=== PATIENT | male | born 1945 | race Caucasian/White ===

== ENCOUNTER → 2018-05-25 | Outpatient (CLI) | payer OTHER ==
[~2018-05-25] MED LIST: ASPI81TA28 PO; GLC/500 PO; LEVO50TA6 PO; MULT-506 PO; OMEP-334 PO; PRED20TA PO; PROB1TAB16 PO
[2018-05-25 14:33] LABS: BASO % 0.2 %; BASO ABS # 0.02 K/uL (0-0.2); EOS % 7.7 %; EOS ABS # 0.75 K/uL (0-0.5); HEMATOCRIT 36.1 % (42-52); HEMOGLOBIN 11.4 g/dL (14.0-18.0); IG# 0.28 K/uL (0.00-0.02); LYMPH % 6.4 %; LYMPH ABS # 0.63 K/uL (1.2-3.4); MEAN CORPUSCULAR HEMOGLOBIN 30.6 pg (25-34); MEAN CORPUSCULAR HGB CONC 31.6 g/dl (32-36); MEAN PLATELET VOLUME 9.6 fL (7.4-10.4); MONO % 3.7 %; MONO ABS # 0.36 K/uL (0.11-0.59); NEUT % 79.1 %; NEUT ABS # 7.75 K/uL (1.4-6.5); PLATELET COUNT 337 K/uL (130-400); RED CELL DISTRIBUTION WIDTH CV 14.4 % (11.5-14.5); RED CELL DISTRIBUTION WIDTH SD 50.7 fL (36.4-46.3); WHITE BLOOD COUNT 9.79 K/uL (4.8-10.8)
[2018-05-25 14:47] LABS: PTT PATIENT 24.1 SECONDS (21.0-31.0)
[2018-05-25 14:51] LABS: BLOOD UREA NITROGEN 28 mg/dl (7-18); CALCIUM 8.8 mg/dl (8.5-10.1); CARBON DIOXIDE 29 mmol/L (21-32); CREATININE 1.09 mg/dl (0.60-1.40); GLUCOSE 182 mg/dl (70-99); POTASSIUM 4.4 mmol/L (3.5-5.1); SODIUM 135 mmol/L (136-145)
[2018-05-26 05:58] LABS: HEMOGLOBIN A1C 7.4 % (4.5-5.6)
== END | disposition home or self-care (01) ==
LOC: C.LAB 12:20
PROVIDERS: ATTEND Orthopaedic Surgery Orthopaedic Surgery of the Spine
DX: Z01.818 Encounter for other preprocedural examination (principal)

== ENCOUNTER 2018-06-10 05:38 | Inpatient (IN) | payer OTHER ==
[2018-05-19 13:09] VITALS: BMI 23.0
[2018-05-25 13:00] VITALS: BMI 24.0
--- NOTE | 2018-05-25 13:16 | PAT Medication Instructions ---
Service Date May 25, 2018. Current Home Medication List Aspirin (Aspirin Ec), 81 MG PO QDL Levothyroxine Sodium (Levothyroxine Sodium), 1 TAB PO QAM Metformin Hcl (Glucophage), 1,000 MG PO QAM Multivitamin (Multivitamin), 1 TAB PO QDD Omeprazole (Omeprazole Dr), 1 TAB PO QDL Prednisone (Prednisone), 20 MG PO QAM Probiotic Product (Probiotic), 1 TAB PO QDL Medication Instructions For Your Scheduled Surgery - Hold the following medications the morning of surgery: Metformin Hcl (Glucophage), 1,000 MG PO QAM - Take the following medications the morning of surgery with a sip of water: Levothyroxine Sodium (Levothyroxine Sodium), 1 TAB PO QAM Prednisone (Prednisone), 20 MG PO QAM - Take the following medications as scheduled the afternoon/night before surgery : Aspirin (Aspirin Ec), 81 MG PO QDL Multivitamin (Multivitamin), 1 TAB PO QDD Omeprazole (Omeprazole Dr), 1 TAB PO QDL Probiotic Product (Probiotic), 1 TAB PO QDL If you have any questions please call us at [phone] or [phone] or [phone]
[2018-06-10] VITALS (8 sets, daily range): BP systolic 92–151; BP diastolic 53–87; PULSE 58–102; TEMP 36.2–37.5; O2SAT 91–98; Ht 180.3 cm; Wt 78.0 kg
[~2018-06-10] VITALS: Ht 180.3 cm; Wt 78.0 kg
[2018-06-10] MEDS ORDERED: GABAPENTIN 300 MG CAP PO SCH (06:00)
[2018-06-10] MEDS ORDERED: LACTATED RINGER'S 500 ML IV SCH (06:00)
[2018-06-10] MEDS ORDERED: LACTATED RINGER'S 1000ML IV SCH (06:00)
[2018-06-10] MEDS ORDERED: ACETAMINOPHEN 500 MG TAB PO SCH (06:00)
[2018-06-10] MEDS ORDERED: CeleBREX 200 MG CAP PO SCH (06:00)
[2018-06-10] MEDS ORDERED: CLINDAMYCIN 600 MG/54 ML D5W 54 ML IV SCH (06:00)
[2018-06-10] MEDS ORDERED: NEOSTIGMINE METHYLSULFATE 1 MG/ML 10ML VIAL ONE (07:03)
[2018-06-10] MEDS ORDERED: ONDANSETRON INJ 2 MG/ML 2 ML VIAL ONE (07:03)
[2018-06-10] MEDS ORDERED: LIDOCAINE HCL 2% 2 ML VIAL (20MG/ML) ONE (07:03)
[2018-06-10] MEDS ORDERED: DEXAMETHASONE SOD INJ 4 MG/ML VIAL ONE ×2 (07:03→08:46)
[2018-06-10] MEDS ORDERED: GLYCOPYRROLATE INJ 0.2 MG/ML VIAL ONE ×2 (07:03→10:17)
[2018-06-10] MEDS ORDERED: PROPOFOL IV EMULSION 10 MG/ML 20 ML VIAL ONE (07:03)
[2018-06-10] MEDS ORDERED: FENTANYL CITRATE INJ 50 MCG/1 ML 2 ML VIAL ONE ×3 (07:03→09:47)
[2018-06-10] MEDS ORDERED: MIDAZOLAM HCL 1 MG/ML 2ML VIAL ONE (07:03)
[2018-06-10] MEDS ORDERED: BUPIVACAINE LIPOSOME 1/3% 266 MG/20 ML VIAL ONE (07:05)
[2018-06-10] MEDS ORDERED: SODIUM CHLORIDE 0.9% PF 50 ML VIAL ONE ×2 (07:05→08:02)
[2018-06-10] MEDS ORDERED: BUPIVACAINE 0.5 % 5 MG/1 ML PF 10ML VIAL ONE (07:06)
[2018-06-10] MEDS ORDERED: BACITRACIN 50000 UNIT VIAL ONE (07:06)
[2018-06-10] MEDS ORDERED: BUPIVACAINE/EPINEPHRINE 0.5% MPF 1:200,000 30 ML VIAL ONE (07:06)
--- NOTE | 2018-06-10 07:21 | History & Physical Bridge Note ---
H&P Re-Evaluation Bridge Note: I have examined the patient, reviewed the History & Physical and in the interval since the performance of the History & Physical I have noted the following changes of clinical significance: No changes noted
--- NOTE | 2018-06-10 07:22 | History and Physical ---
History & Physical Date Jun 10, 2018. Chief Complaint Back and leg pain History of Present Illness The patient is a 72 year old male with complaints of back and leg pain Additional History Hepatic Disease: No Endocrine Disorder: No Kidney Disease: No Hypertension: No Heart Disease: No Bleeding Tendencies: No Infectious Diseases: No Other: Diabetes Allergies Coded Allergies: Ciprofloxacin (Verified Allergy, Unknown, DIARRHEA, 06/10/18) Uncoded Allergies: CEPHALOSPORIN (Adverse Reaction, Unknown, UPSET STOMACH, 05/19/18) Home Medications Scheduled Aspirin (Aspirin Ec), 81 MG PO QDL Levothyroxine Sodium (Levothyroxine Sodium), 1 TAB PO QAM Metformin Hcl (Glucophage), 1,000 MG PO QAM Multivitamin (Multivitamin), 1 TAB PO QDD Omeprazole (Omeprazole Dr), 1 TAB PO QDL Prednisone (Prednisone), 20 MG PO QAM Probiotic Product (Probiotic), 1 TAB PO QDL Physical Examination Skin: warm/dry, no rash Eyes: normal inspection, EOMI, sclerae normal ENT: normal ENT inspection, pharynx normal Head: normocephalic, atraumatic Neck: supple, no adenopathy, trachea midline Respiratory/Chest: lungs clear, normal breath sounds, no respiratory distress Cardiovascular: regular rate, rhythm, no edema, no murmur Abdomen / GI: normal bowel sounds, non tender Back: normal inspection Extremities: normal inspection, normal range of motion Neurologic/Psych: no motor/sensory deficits, alert, normal reflexes, oriented x 3 Diagnosis Lumbar spinal stenosis with neurogenic claudication Plan of Treatment L2-L5 decompression L2-S1 fusion possible iliac bolts
[2018-06-10] MEDS ORDERED: HYDROmorphone INJ 2 MG/ML SYR/VIAL ONE ×2 (08:07→10:17)
[2018-06-10] MEDS ORDERED: PHENYLEPHRINE 100MCG/ML 5ML SYR ONE ×2 (08:46)
[2018-06-10] MEDS ORDERED: EpHEDrine SULFATE 50MG/5ML SYR ONE (08:46)
[2018-06-10] MEDS ORDERED: HYDROCORTISONE SOD SUCCINATE 100 MG/2 ML VIAL ONE (08:46)
[2018-06-10] MEDS ORDERED: ROCURONIUM BROMIDE 10 MG/ML 5 ML VIAL ONE ×2 (08:46→10:17)
[2018-06-10] MEDS ORDERED: LABETALOL HCL IV 5 MG/ML 20ML IV PRN (09:15)
[2018-06-10] MEDS ORDERED: ATROPINE SULFATE 0.1 MG/ML 5ML SYR IV PRN (09:15)
[2018-06-10] MEDS ORDERED: ONDANSETRON INJ 2 MG/ML 2 ML VIAL IV PRN ×2 (09:15→10:15)
[2018-06-10] MEDS ORDERED: HYDROmorphone INJ 2 MG/ML SYR/VIAL IV PRN (09:15)
[2018-06-10] MEDS ORDERED: VOLUVEN IN NSS ONE (10:04)
[2018-06-10] MEDS ORDERED: FLOSEAL HEMOSTATIC MATRIX 10ML TOP ONE (10:04)
--- NOTE | 2018-06-10 10:11 | DIAGNOSTIC IMAGING REPORT ---
LUMBAR SPINE 2 OR 3 VIEW HISTORY: 72 years-old Male L2-S1 DECOMPRESSION/FUSION POSSIBLE ILIAC BOLTS COMPARISON: None available TECHNIQUE: 2 spot fluoroscopic images of the lumbar spine were obtained utilizing 27.0 seconds fluoroscopy time FINDINGS: Postoperative changes with laminectomy and posterior interbody maribell and screw fusion extends from what appears to be the L2-L5 levels. The hardware appears to be intact and alignment appears satisfactory. Multilevel intervertebral disc space narrowing with endplate spurring. IMPRESSION: Fluoroscopic assistance as above. Please see operative report for further details. The above report was generated using voice recognition software. It may contain grammatical, syntax or spelling errors. Electronically signed by: Chidi Palma M.D. 06/10/2018 10:10 AM Dictated Date/Time: 06/10/2018 10:08 AM
--- NOTE | 2018-06-10 10:11 | [facility] Operative Report ---
Operative Report Operative Date Jun 10, 2018. Pre-Operative Diagnosis Lumbar spinal stenosis with neurogenic claudication Post-Operative Diagnosis Lumbar spinal stenosis with neurogenic claudication Procedure(s) Performed 1. Lumbar decompression medial facetectomies foraminotomies L2-3 L3-4 L4-5. #2 posterior spinal fusion L2-3 L3-4 L4-5 per #3 placed posterior segmental instrumentation L2-L5. #4 placement of local autograft in the posterior gutters. #5 placement of infuse collagen sponge, mass graft and ostial amp in the posterior lateral gutters. Surgeon Dr. Irene Art Consultant Surgeon(s) Gunnar Bentley PA-C Estimated Blood Loss 475 cc Findings Severe spinal stenosis Specimens none per surgeon Anesthesia Type General Description of Procedure Patient was met with preoperatively case discussed all questions addressed. After informed consent obtained patient was taken to the operative suite underwent intubation placed prone position on top of the Amaury frame. All bony prominences well-padded eyes inspected to ensure no external pressure placed upon the. This point the lumbar spine was prepped and draped in the normal sterile fashion. Sharp dissection with the assistance of Bovie cautery was performed down to and exposing the lamina and transverse processes of L2-L3- L4 and L5 bilaterally. From a caudal to cephalad fashion complete laminectomy of L4 L3 L2 is performed addressing severe lateral recess and foraminal disease. I did elect to not extend the fusion to the pelvis in light of the very soft bone. This included not performing any interbody fusion secondary to the bone quality. After decompression pedicle screws were placed in L2 L3-L4- L5 bilaterally with the assistance of fluoroscopy and appropriate size maribell locked in position. Approximately 120 cc of Exparel injected into the musculature. 15 round LETY drain inserted. Incision was then closed with 1 Vicryl in the fascia 2-0 Vicryl subcutaneously 4-0 Monocryl for fashion closure Steri-Strips sterile dressings placed. Patient weakened taken to PACU in a stable condition. Please note Antonino Bentley present throughout the entire procedure involved in patient positioning complex portions of the surgery and fashion closure. I attest to the content of the Intraoperative Record and any orders documented therein. Any exceptions are noted below.
[2018-06-10] MEDS ORDERED: ACETAMINOPHEN IV 100 ML IV PRN (10:15)
[2018-06-10] MEDS ORDERED: FAMOTIDINE 20 MG TAB PO PRN (10:15)
[2018-06-10] MEDS ORDERED: hydrOXYzine HCL 25 MG TAB PO PRN (10:15)
[2018-06-10] MEDS ORDERED: ACETAMINOPHEN 500 MG TAB PO PRN (10:15)
[2018-06-10] MEDS ORDERED: ALUMINUM/MAGNESIUM SUSP 30 ML UDC PO PRN (10:15)
[2018-06-10] MEDS ORDERED: SOD PHOSPHATE/SOD BIPHOSPHATE ENEMA 132 ML BTL PR PRN (10:15)
[2018-06-10] MEDS ORDERED: METOCLOPRAMIDE HCL INJ 5 MG/ML 2 ML VIAL IV PRN (10:15)
[2018-06-10] MEDS ORDERED: NALOXONE HCL 0.4 MG/1 ML VIAL/CARP IV PRN (10:15)
[2018-06-10] MEDS ORDERED: MAGNESIUM HYDROXIDE SUSP 30 ML UDC PO PRN (10:15)
[2018-06-10] MEDS ORDERED: PROMETHAZINE HCL INJ 12.5 MG in SODIUM CHLORIDE 0.9% 50ML 50 ML IV PRN (10:15)
[2018-06-10] MEDS ORDERED: LORAZEPAM 0.5 MG TAB PO PRN (10:15)
[2018-06-10] MEDS ORDERED: BISACODYL 10 MG SUPP PR PRN (10:15)
[2018-06-10] MEDS ORDERED: DO NOT ADMINISTER PNEUMOCOCCAL VACCINE PRN (10:15)
[2018-06-10] MEDS ORDERED: DO NOT ADMINISTER FLU VACCINE PRN (10:15)
[2018-06-10] MEDS ORDERED: LORAZEPAM INJ 0.5 MG in SYRINGE 0 ML IV PRN (10:15)
[2018-06-10] MEDS ORDERED: KETOROLAC TROMETHAMINE 30 MG/ML VIAL ONE (10:21)
[2018-06-10] MEDS ORDERED: ESMOLOL HCL 10 MG/ML 10 ML VIAL ONE (10:46)
[2018-06-10] MEDS ORDERED: HYDROmorphone INJ 0.5 MG/0.5 ML SYR IV PRN (12:00)
[2018-06-10] MEDS ORDERED: DEXTROSE 50% 50 ML SYR IV PRN ×2 (12:45→13:00)
[2018-06-10] MEDS ORDERED: GLUCOSE 40% GEL 15 GM TUBE PO PRN ×2 (12:45→13:00)
[2018-06-10] MEDS ORDERED: GLUCOSE 10 TABS/TUBE PO PRN ×2 (12:45→13:00)
[2018-06-10] MEDS ORDERED: CARBOHYDRATES FOR HYPOGLYCEMIA PO PRN ×2 (12:45→13:00)
[2018-06-10] MEDS ORDERED: GLUCAGON FOR INJ 1 MG VIAL SQ PRN (12:45)
[2018-06-10] MEDS: PANTOprazole SOD 40 MG TAB PO SCH (12:47)
[2018-06-10] MEDS: ASPIRIN 81 MG ECTAB PO SCH (12:47)
--- NOTE | 2018-06-10 12:56 | Medical Consult ---
Consultation Date of Consultation: Jun 10, 2018. Attending Physician: Vickey Irene D.O. Reason for Consultation: Postop medical management History of Present Illness This is a 72-year-old male, under the primary care of Dr. 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 Aguilar presented to [facility] for elective surgery by Dr. Irene secondary to lumbar spinal stenosis with neurogenic claudication. Patient underwent L2-5 decompression, L2-S1 fusion by Dr. Irene with EBL of 475 cc. He tolerated procedure well. Over the past several years patient had significant low back pain with associated numbness and tingling in the bilateral lower extremities inhibiting patient's functionality and ambulation. Currently he states, "I have no pain for the first time in a long time." Denies numbness/tingling of lower extremities and chloe area. He is lying in bed with multiple family members at bedside. Denies fever, chills, sweats, dizziness, lightheaded, chest pain, sob, n/v/d. Last BM 1 day ago, normal for him. Vitale catheter in place. Appetite is returning, requesting lunch. Of note patient has recent hospitalization 02/26-03/04/2018 secondary to pancreatitis which was felt to be secondary to hyperglycemia, newly diagnoses steroid induced diabetes mellitus, currently denies abdominal pain. Preop testing on 05/26/18 revealed hemoglobin 11.4, platelet 233, creatinine 1.19, A1c 7.4. We have been asked to see patient for post operative medical management. Past Medical/Surgical History Medical Problems: (1) Erythema nodosum Status: Chronic (2) GERD (gastroesophageal reflux disease) Status: Chronic (3) Hypertension Status: Chronic (4) Hypothyroidism Status: Chronic (5) Mediastinal lymphadenopathy Permanent Comment: Follow by Dr Aguilar, pulomology, s/p EBUS and bx on 12/09/17, to f/u pulmonology and repeat CT scan Status: Chronic (6) Steroid-induced diabetes mellitus Status: Chronic Surgical Problems: (1) H/O left inguinal hernia repair Status: Chronic (2) History of bronchoscopy Status: Chronic Family History FH: Father of [place] at age 84; Mother age 97 natural causes; Sister age 90; Brother Alive with DM and CAD Social History Smoking Status: Former Smoker (1 pack year hx, quit in 1959) Smokeless Tobacco Use: No Alcohol Use: occasionally (rarely, on special occasions like holiday) Drug Use: none Marital Status: Housing Status: lives with significant other 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) Allergies Coded Allergies: Cephalosporins (Verified Adverse Reaction, Unknown, UPSET STOMACH, 06/10/18) Ciprofloxacin (Verified Adverse Reaction, Unknown, DIARRHEA, 06/10/18) Home Medications Active Reported Multivitamin (Multivitamins) Tab 1 Tab PO QDD Aspirin Ec (Aspirin) 81 Mg Tab 81 Mg PO QDL Probiotic (Probiotic Product) 1 Tab Tab 1 Tab PO QDL Omeprazole Dr (Omeprazole) 40 Mg Cap 1 Tab PO QDL Levothyroxine Sodium 50 Mcg Tab 1 Tab PO QAM 90 Days Prednisone 20 Mg Tab 20 Mg PO QAM Glucophage (Metformin Hcl) 500 Mg Tab 1,000 Mg PO QAM Current Inpatient Medications Current Inpatient Medications Medications (Trade) Dose Ordered Sig/Julieta Route Start Time Stop Time Status Last Admin Dose Admin Lactated Ringer's 1,000 ml @ 15 mls/hr Q24H IV 06/10/18 06:00 06/11/18 05:59 06/10/18 06:17 15 MLS/HR Clindamycin Phosphate 54 ml @ 100 mls/hr PREOP IV 06/10/18 06:00 06/10/18 18:00 06/10/18 07:38 100 MLS/HR Acetaminophen (Tylenol Tab) 1,000 mg PREOP PO 06/10/18 06:00 06/10/18 18:00 06/10/18 06:21 1,000 MG Celecoxib (CeleBREX CAP) 200 mg PREOP PO 06/10/18 06:00 06/10/18 18:00 06/10/18 06:21 200 MG Gabapentin (Neurontin Cap) 300 mg PREOP PO 06/10/18 06:00 06/10/18 18:00 06/10/18 06:21 300 MG Ondansetron HCl (Zofran Inj) 4 mg ONE PRN IV 06/10/18 09:15 06/10/18 14:15 Atropine Sulfate (Atropine Sulfate 0.1mg/ml Inj) 0.5 mg Q1M PRN IV 06/10/18 09:15 06/10/18 14:15 Hydromorphone HCl (Dilaudid Inj) 0.25 mg Q5M PRN IV 06/10/18 09:15 06/10/18 14:15 Labetalol HCl (Normodyne IV) 5 mg Q5M PRN IV 06/10/18 09:15 06/10/18 14:15 Clindamycin Phosphate 600 mg/ Dextrose 54 ml @ 100 mls/hr Q8H IV 06/10/18 16:00 06/11/18 00:33 Promethazine HCl 12.5 mg/Sodium Chloride 50.5 ml @ 202 mls/hr Q6H PRN IV 06/10/18 10:15 07/10/18 10:14 Ondansetron HCl (Zofran Inj) 4 mg Q6H PRN IV 06/10/18 10:15 07/10/18 10:14 Metoclopramide HCl (Reglan Inj) 10 mg Q6H PRN IV 06/10/18 10:15 07/10/18 10:14 Lorazepam (Ativan Tab) 0.5 mg Q8H PRN PO 06/10/18 10:15 07/10/18 10:14 Lorazepam 0.5 mg/ Syringe 0.25 ml @ 1 mls/min Q8H PRN IV 06/10/18 10:15 07/10/18 10:14 Pneumococcal Polysaccharide Vaccine 1 ea PRN PRN N/A 06/10/18 10:15 07/10/18 10:14 Influenza Virus Vacc Triv Types A&B 1 ea PRN PRN N/A 06/10/18 10:15 07/10/18 10:14 Polyethylene (Miralax Powder Packet) 17 gm Q6 PO 06/12/18 06:00 07/12/18 05:59 Bisacodyl (Dulcolax Supp) 10 mg DAILY PRN WV 06/10/18 10:15 07/10/18 10:14 Magnesium Hydroxide (Milk Of Magnesia Susp) 30 ml DAILY PRN PO 06/10/18 10:15 07/10/18 10:14 Hydromorphone HCl (Dilaudid Inj) 0.5-1mg prn moder... Q3H PRN IV 06/10/18 12:00 06/24/18 11:59 Oxycodone HCl (Roxicodone Immediate Rel Tab) 5-10mg prn moderate to sev... Q4H PRN PO 06/10/18 12:00 06/24/18 11:59 Sodium Chloride 1,000 ml @ 150 mls/hr Q6H40M IV 06/10/18 12:00 07/10/18 11:59 Acetaminophen (Tylenol Tab) 1,000 mg Q8H PRN PO 06/10/18 10:15 07/10/18 10:14 Acetaminophen 100 ml @ 400 mls/hr Q8H PRN IV 06/10/18 10:15 07/10/18 10:14 Naloxone HCl (Narcan Inj) 0.1 mg Q5M PRN IV 06/10/18 10:15 07/10/18 10:14 Senna/Docusate Sodium (Senokot S Tab) 2 tab HS PO 06/10/18 21:00 07/10/18 20:59 Sodium Biphosphate/ Sodium Phosphate (Fleet Enema) 132 ml ONE PRN WV 06/10/18 10:15 07/10/18 10:14 Hydroxyzine HCl (Vistaril Tab) 25 mg Q8H PRN PO 06/10/18 10:15 07/10/18 10:14 Al Hydroxide/Mg Hydroxide (Maalox Susp) 30 ml Q6H PRN PO 06/10/18 10:15 07/10/18 10:14 Famotidine (Pepcid Tab) 20 mg Q12 PRN PO 06/10/18 10:15 07/10/18 10:14 Diphenhydramine HCl (Benadryl Cap) 25 mg Q6H PRN PO 06/10/18 10:15 07/10/18 10:14 Aspirin (Ecotrin Tab) 81 mg QDL PO 06/10/18 12:30 07/10/18 12:29 Levothyroxine Sodium (Synthroid Tab) 50 mcg DAILYBB PO 06/11/18 06:00 07/11/18 05:59 Multivitamins (Multivitamin Tab) 1 tab QDD PO 06/10/18 17:45 07/10/18 17:59 Prednisone (PredniSONE TAB) 20 mg QAM PO 06/11/18 09:00 07/11/18 08:59 Pantoprazole Sodium (Protonix Tab) 40 mg QDL PO 06/10/18 12:30 07/10/18 12:29 Review of Systems As noted per HPI, 10 systems reviewed and negative unless noted above. Physical Exam Date Time Temp Pulse Resp B/P (MAP) Pulse Ox O2 Delivery O2 Flow Rate FiO2 06/10/18 12:00 36.3 65 16 107/63 (78) 97 Nasal Cannula 2.0 06/10/18 11:51 Nasal Cannula 2.0 06/10/18 11:47 36.4 67 16 115/66 (82) 95 Nasal Cannula 2.0 06/10/18 11:46 95 Nasal Cannula 2.0 06/10/18 11:15 36.3 77 16 111/59 95 Nasal Cannula 3 06/10/18 11:05 69 16 111/59 97 Oxymask 3 06/10/18 10:55 69 16 120/65 100 Oxymask 5 06/10/18 10:45 74 14 113/62 100 Oxymask 5 06/10/18 10:38 36.2 82 17 115/70 100 Oxymask 10 06/10/18 06:04 37.5 102 20 151/87 91 Room Air General Appearance: WD/WN, no apparent distress (lying in bed, comfortable, converses easily) Head: normocephalic, atraumatic Eyes: normal inspection, PERRL, sclerae normal ENT: normal ENT inspection, hearing grossly normal, + pertinent finding ( Mucous membranes moist) Neck: supple, no adenopathy, thyroid normal, no JVD Respiratory/Chest: chest non-tender, lungs clear, normal breath sounds, no respiratory distress, no accessory muscle use, + rales (minimal rales at bases b /l ) Cardiovascular: regular rate, rhythm, no edema, no murmur, normal peripheral pulses (+1-2 pedal and PT pulses b/l.) Abdomen/GI: normal bowel sounds, non tender, soft, no organomegaly Genitourinary - Male: + pertinent finding (+Vitale catheter draining clear yellow urine) Back: + pertinent finding (+incision dressing CDI, LETY drain with serosanginous output 100cc) Extremities/Musculoskelatal: normal inspection, no calf tenderness (+SCDS in place), normal capillary refill, no pedal edema Neurologic/Psych: alert, normal mood/affect, oriented x 3 Skin: normal color, warm/dry Laboratory Results Last 24 Hours Test 06/10/18 06:08 06/10/18 06:10 06/10/18 10:47 Bedside Glucose 153 mg/dl 250 mg/dl Assessment & Plan (1) Lumbar stenosis with neurogenic claudication Status: Acute Assessment & Plan: This is a 72-year-old male, under the primary care of Dr. 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 Aguilar presented to [facility] for elective surgery by Dr. Irene secondary to lumbar spinal stenosis with neurogenic claudication. Patient underwent L2-5 decompression, L2-S1 fusion by Dr. Irene with EBL of 475 cc. Preop testing on 05/26/18 revealed hemoglobin 11.4, platelet 233, creatinine 1.19, A1c 7.4. Post Op Day 1 L2-5 Decompression with L2-S1 fusion by Dr. Irene 06/10/18 -Pain/Wound management per ortho -VTE prophylaxis per ortho -Senna/docusate for bowel prophylaxis -Incentive spirometer q1hr while awake -CBC, BMP in a.m. (2) Steroid-induced diabetes mellitus Status: Chronic Assessment & Plan: Post op hypergylcemia Metformin on hold Initiate Lantus 13 units SQ BID Give Lantus 13units x 1 now due to hyperglycemia Will cover with Novolog sliding scale stat and AC/HS for glycemic management and monitor treat accordingly (3) Hypertension Status: Chronic Assessment & Plan: Blood pressure under control Currently not on any oral antihypertensives Monitor and treat accordingly (4) Hypothyroidism Status: Chronic Assessment & Plan: Continue levothyroxine 50 mcg (5) Erythema nodosum Status: Chronic Assessment & Plan: Continue prednisone 20 mg daily Follow-up with outpatient dermatology/rheumatology (6) GERD (gastroesophageal reflux disease) Status: Chronic Assessment & Plan: Continue pantoprazole SUPERVISING PHYSICIAN ADDENDUM Record reviewed. Patient interviewed and examined. Care coordinated with Giovanna Judd PA-C. Please refer to her documentation for patient's history. Briefly, 72 YO M with hypertension, DM, and other problems. Underwent lumbar decompression / fusion today. Doing well postoperatively except for elevated blood sugars. Received IV dexamethasone perioperatively. EXAM: General- no distress Lungs- clear to auscultation; no respiratory distress Cardiovascular- RRR; no murmur; no gallop; no JVD; no pretibial edema Abdomen- + bowel sounds, soft, nontender Extremities- no cyanosis; no calf tenderness Neuro- alert, oriented Skin- warm & dry DATA: Fingerstick blood sugar at 13:11 = 346. Other lab studies as noted. ASSESSMENT AND PLAN: S/P LUMBAR DECOMPRESSION / FUSION HYPERTENSION DM TYPE 2- hold metformin; Lantus / NovoLog per protocol. ERYTHEMA NODOSUM- continue prednisone. Please refer to MARY JANE Judd's documentation for discussion of other issues. Eros Velasquez MD Thank you for this consultation. We will follow the patient with you during their hospital stay. You can reach a member of the [facility] Medicine Team 31/05 via pager @ [phone]. You can reach me via cell @ [phone]. .
[2018-06-10] MEDS ORDERED: GLUCAGON FOR INJ 1 MG VIAL IM PRN (13:00)
[2018-06-10] MEDS ORDERED: INSULIN ASPART 100 UNITS/ML 3 ML PEN SC ONE (13:01)
[2018-06-10] MEDS ORDERED: INSULIN GLARGINE SOLOSTAR 100 UNITS/ML 3 ML PEN SC STA (13:29)
--- NOTE | 2018-06-10 13:31 | Anesthesiology Progress Note ---
Anesthesia Post Op Note Date & Time Jun 10, 2018 at 13:31 Vital Signs Pain Intensity: 0.0 Vital Signs Past 12 Hours Date Time Temp Pulse Resp B/P (MAP) Pulse Ox O2 Delivery O2 Flow Rate FiO2 06/10/18 12:30 36.6 80 16 109/67 (81) 98 Nasal Cannula 3.0 06/10/18 12:00 36.3 65 16 107/63 (78) 97 Nasal Cannula 2.0 06/10/18 11:51 Nasal Cannula 2.0 06/10/18 11:47 36.4 67 16 115/66 (82) 95 Nasal Cannula 2.0 06/10/18 11:46 95 Nasal Cannula 2.0 06/10/18 11:15 36.3 77 16 111/59 95 Nasal Cannula 3 06/10/18 11:05 69 16 111/59 97 Oxymask 3 06/10/18 10:55 69 16 120/65 100 Oxymask 5 06/10/18 10:45 74 14 113/62 100 Oxymask 5 06/10/18 10:38 36.2 82 17 115/70 100 Oxymask 10 06/10/18 06:04 37.5 102 20 151/87 91 Room Air Notes Mental Status: alert / awake / arousable, participated in evaluation Pt Amnestic to Procedure: Yes Nausea / Vomiting: adequately controlled Pain: adequately controlled Airway Patency, RR, SpO2: stable & adequate BP & HR: stable & adequate Hydration State: stable & adequate Anesthetic Complications: no major complications apparent
[2018-06-10] MEDS: SODIUM CHLORIDE 0.9% 1000ML 1,000 ML IV SCH ×2 (16:05→23:00)
[2018-06-10] MEDS: CLINDAMYCIN IV 600 MG in DEXTROSE 5% 50ML 50 ML IV SCH ×2 (16:05→23:01)
[2018-06-10] MEDS: INSULIN ASPART 100 UNITS/ML 3 ML PEN SC SCH ×2 (17:36→21:02)
[2018-06-10] MEDS: MULTIVITAMIN TAB PO SCH (17:36)
[2018-06-10] MEDS: DOCUSATE SODIUM/SENNA 50/8.6MG TAB PO SCH (20:50)
[2018-06-10] MEDS: INSULIN GLARGINE SOLOSTAR 100 UNITS/ML 3 ML PEN SC SCH (21:02)
[2018-06-11 02:35] VITALS: BP 104/58; PULSE 66; TEMP 36.5; O2SAT 91
[2018-06-11 05:51] LABS: EOS % 0.1 %; EOS ABS # 0.01 K/uL (0-0.5); HEMATOCRIT 26.3 % (42-52); HEMOGLOBIN 8.3 g/dL (14.0-18.0); IG# 0.08 K/uL (0.00-0.02); LYMPH % 9.4 %; LYMPH ABS # 0.66 K/uL (1.2-3.4); MEAN CELL VOLUME 94.6 fL (80-100); MEAN CORPUSCULAR HEMOGLOBIN 29.9 pg (25-34); MEAN CORPUSCULAR HGB CONC 31.6 g/dl (32-36); MONO % 6.2 %; MONO ABS # 0.43 K/uL (0.11-0.59); NEUT % 83.2 %; NEUT ABS # 5.81 K/uL (1.4-6.5); PLATELET COUNT 268 K/uL (130-400); RED CELL DISTRIBUTION WIDTH CV 14.3 % (11.5-14.5); RED CELL DISTRIBUTION WIDTH SD 50.1 fL (36.4-46.3); WHITE BLOOD COUNT 6.99 K/uL (4.8-10.8)
[2018-06-11] MEDS: LEVOTHYROXINE 50 MCG TAB PO SCH (05:58)
[2018-06-11 06:18] LABS: CALCIUM 7.9 mg/dl (8.5-10.1); POTASSIUM 4.5 mmol/L (3.5-5.1)
[2018-06-11] MEDS ORDERED: NURSING DECISION MEDICATION ORDER SCH (06:30)
[2018-06-11 07:34] VITALS: BP 131/69; PULSE 75; TEMP 36.7; O2SAT 90
[2018-06-11] MEDS: OXYCODONE HCL IR 5 MG TAB (IMMEDIATE RELEASE) PO PRN ×4 (08:03→20:33)
--- NOTE | 2018-06-11 08:28 | Orthopedic Progress Note ---
Orthopedic Progress Note Date of Service Jun 11, 2018. Subjective Post OP Day: 1 Reports: feeling well Additional Notes: Patient presents postop 1 status post lumbar decompression fusion from L2-L5. He is doing well this morning no nausea. His pain is well controlled. His leg symptoms have improved. He denies any other numbness, tingling, paresthesias. Objective calves soft nontender, N/V intact, dressing C/D/I, CMS intact Date Time Temp Pulse Resp B/P (MAP) Pulse Ox O2 Delivery O2 Flow Rate FiO2 06/11/18 07:34 36.7 75 14 131/69 (89) 90 Room Air 06/11/18 02:35 36.5 66 16 104/58 (73) 91 Room Air 06/10/18 23:02 36.5 58 16 113/61 (78) 94 Room Air 06/10/18 22:50 Room Air 06/10/18 16:10 Room Air 06/10/18 15:32 36.3 90 18 102/63 (76) 96 Room Air 06/10/18 14:38 36.2 69 16 95/57 (70) 98 Nasal Cannula 2.0 06/10/18 13:39 69 16 92/53 (66) 96 06/10/18 12:30 36.6 80 16 109/67 (81) 98 Nasal Cannula 3.0 06/10/18 12:00 36.3 65 16 107/63 (78) 97 Nasal Cannula 2.0 06/10/18 11:51 Nasal Cannula 2.0 06/10/18 11:47 36.4 67 16 115/66 (82) 95 Nasal Cannula 2.0 06/10/18 11:46 95 Nasal Cannula 2.0 06/10/18 11:15 36.3 77 16 111/59 95 Nasal Cannula 3 06/10/18 11:05 69 16 111/59 97 Oxymask 3 06/10/18 10:55 69 16 120/65 100 Oxymask 5 06/10/18 10:45 74 14 113/62 100 Oxymask 5 06/10/18 10:38 36.2 82 17 115/70 100 Oxymask 10 Laboratory Results 24 Hours: Test 06/11/18 05:18 White Blood Count 6.99 K/uL Red Blood Count 2.78 M/uL Hemoglobin 8.3 g/dL Hematocrit 26.3 % Mean Corpuscular Volume 94.6 fL Mean Corpuscular Hemoglobin 29.9 pg Mean Corpuscular Hemoglobin Concent 31.6 g/dl Platelet Count 268 K/uL Mean Platelet Volume 9.0 fL Neutrophils (%) (Auto) 83.2 % Lymphocytes (%) (Auto) 9.4 % Monocytes (%) (Auto) 6.2 % Eosinophils (%) (Auto) 0.1 % Basophils (%) (Auto) 0.0 % Neutrophils # (Auto) 5.81 K/uL Lymphocytes # (Auto) 0.66 K/uL Monocytes # (Auto) 0.43 K/uL Eosinophils # (Auto) 0.01 K/uL Basophils # (Auto) 0.00 K/uL Assessment & Plan Assessment: Patient is doing well postoperative day 1 Plan: We will progress with physical therapy. We will continue with pain control measures. Continue GI DVT prophylaxis. Likely discharge will be to home on Wednesday. (1) Lumbar stenosis with neurogenic claudication Acute (2) Steroid-induced diabetes mellitus Chronic (3) Hypertension Chronic (4) Hypothyroidism Chronic (5) Erythema nodosum Chronic (6) GERD (gastroesophageal reflux disease) Chronic
[2018-06-11] MEDS: INSULIN GLARGINE SOLOSTAR 100 UNITS/ML 3 ML PEN SC SCH ×2 (09:03→20:40)
[2018-06-11] MEDS: INSULIN ASPART 100 UNITS/ML 3 ML PEN SC SCH ×4 (09:05→20:34)
[2018-06-11 11:04] VITALS: BP 123/61; PULSE 65; TEMP 37; O2SAT 95
[2018-06-11] MEDS: PANTOprazole SOD 40 MG TAB PO SCH (13:24)
[2018-06-11] MEDS: ASPIRIN 81 MG ECTAB PO SCH (13:24)
[2018-06-11 14:55] VITALS: BP 133/71; PULSE 59; TEMP 36.5; O2SAT 96
[2018-06-11] MEDS: MULTIVITAMIN TAB PO SCH (18:01)
--- NOTE | 2018-06-11 20:07 | Progress Note ---
Medicine Progress Note Date & Time of Visit: Jun 11, 2018 at 08:15 . Subjective Doing well postoperatively. No chest pain. No cough or dyspnea. No nausea or vomiting. Has not passed any stool yet. Vitale cath removed this morning. Postop pain well-controlled. . Objective Last 8 Hrs Date Time Temp Pulse Resp B/P (MAP) Pulse Ox O2 Delivery O2 Flow Rate FiO2 06/11/18 15:15 Room Air 06/11/18 14:55 36.5 59 16 133/71 (91) 96 Physical Exam: General- no distress Lungs- clear to auscultation; no respiratory distress Cardiovascular- RRR; no murmur; no gallop; no JVD; no pretibial edema Abdomen- + bowel sounds, soft, nontender Extremities- no cyanosis; no calf tenderness Neuro- alert, oriented Skin- warm & dry . Laboratory Results: Last 24 Hours Test 06/10/18 20:56 06/11/18 05:18 06/11/18 08:20 06/11/18 12:15 Bedside Glucose 203 mg/dl 137 mg/dl 139 mg/dl White Blood Count 6.99 K/uL Red Blood Count 2.78 M/uL Hemoglobin 8.3 g/dL Hematocrit 26.3 % Mean Corpuscular Volume 94.6 fL Mean Corpuscular Hemoglobin 29.9 pg Mean Corpuscular Hemoglobin Concent 31.6 g/dl Platelet Count 268 K/uL Mean Platelet Volume 9.0 fL Neutrophils (%) (Auto) 83.2 % Lymphocytes (%) (Auto) 9.4 % Monocytes (%) (Auto) 6.2 % Eosinophils (%) (Auto) 0.1 % Basophils (%) (Auto) 0.0 % Neutrophils # (Auto) 5.81 K/uL Lymphocytes # (Auto) 0.66 K/uL Monocytes # (Auto) 0.43 K/uL Eosinophils # (Auto) 0.01 K/uL Basophils # (Auto) 0.00 K/uL RDW Standard Deviation 50.1 fL RDW Coefficient of Variation 14.3 % Immature Granulocyte % (Auto) 1.1 % Immature Granulocyte # (Auto) 0.08 K/uL Red Blood Cell Morphology Unremarkable Sodium Level 138 mmol/L Potassium Level 4.5 mmol/L Chloride Level 104 mmol/L Carbon Dioxide Level 29 mmol/L Anion Gap 5.0 mmol/L Blood Urea Nitrogen 25 mg/dl Creatinine 1.00 mg/dl Est Creatinine Clear Calc Drug Dose 71.1 ml/min Estimated GFR () 86.8 Estimated GFR (Non- 74.9 BUN/Creatinine Ratio 24.5 Random Glucose 143 mg/dl Calcium Level 7.9 mg/dl Test 06/11/18 16:58 Bedside Glucose 144 mg/dl Assessment & Plan S/P LUMBAR DECOMPRESSION / FUSION POD # 1. GERD Continue PPI. DM TYPE 2 Steroid-induced diabetes, usually controlled with metformin. Received dexamethasone perioperatively. Postop blood sugars as high as 346. Hold metformin during hospital stay. Lantus / NovoLog per protocol. FBS today = 137. HYPOTHYROIDISM Continue levothyroxine. ERYTHEMA NODOSUM Continue chronic prednisone. VTE PROPHYLAXIS Per Ortho protocol. Thank you for this consultation. We will follow the patient with you during their hospital stay. You can reach a member of the [facility] Medicine Team 31/05 via pager @ [phone]. You can reach me via cell @ [phone]. Dr. Arenas will be covering day shift starting Tuesday 06/12. . Current Inpatient Medications: Current Inpatient Medications Medications (Trade) Dose Ordered Sig/Julieta Route Start Time Stop Time Status Last Admin Dose Admin Promethazine HCl 12.5 mg/Sodium Chloride 50.5 ml @ 202 mls/hr Q6H PRN IV 06/10/18 10:15 07/10/18 10:14 Ondansetron HCl (Zofran Inj) 4 mg Q6H PRN IV 06/10/18 10:15 07/10/18 10:14 Metoclopramide HCl (Reglan Inj) 10 mg Q6H PRN IV 06/10/18 10:15 07/10/18 10:14 Lorazepam (Ativan Tab) 0.5 mg Q8H PRN PO 06/10/18 10:15 07/10/18 10:14 Lorazepam 0.5 mg/ Syringe 0.25 ml @ 1 mls/min Q8H PRN IV 06/10/18 10:15 07/10/18 10:14 Pneumococcal Polysaccharide Vaccine 1 ea PRN PRN N/A 06/10/18 10:15 07/10/18 10:14 Influenza Virus Vacc Triv Types A&B 1 ea PRN PRN N/A 06/10/18 10:15 07/10/18 10:14 Polyethylene (Miralax Powder Packet) 17 gm Q6 PO 06/12/18 06:00 07/12/18 05:59 Bisacodyl (Dulcolax Supp) 10 mg DAILY PRN DC 06/10/18 10:15 07/10/18 10:14 Magnesium Hydroxide (Milk Of Magnesia Susp) 30 ml DAILY PRN PO 06/10/18 10:15 07/10/18 10:14 Hydromorphone HCl (Dilaudid Inj) 0.5-1mg prn moder... Q3H PRN IV 06/10/18 12:00 06/24/18 11:59 Oxycodone HCl (Roxicodone Immediate Rel Tab) 5-10mg prn moderate to sev... Q4H PRN PO 06/10/18 12:00 06/24/18 11:59 06/11/18 16:02 10 MG Acetaminophen (Tylenol Tab) 1,000 mg Q8H PRN PO 06/10/18 10:15 07/10/18 10:14 Acetaminophen 100 ml @ 400 mls/hr Q8H PRN IV 06/10/18 10:15 07/10/18 10:14 Naloxone HCl (Narcan Inj) 0.1 mg Q5M PRN IV 06/10/18 10:15 07/10/18 10:14 Senna/Docusate Sodium (Senokot S Tab) 2 tab HS PO 06/10/18 21:00 07/10/18 20:59 06/10/18 20:50 2 TAB Sodium Biphosphate/ Sodium Phosphate (Fleet Enema) 132 ml ONE PRN DC 06/10/18 10:15 07/10/18 10:14 Hydroxyzine HCl (Vistaril Tab) 25 mg Q8H PRN PO 06/10/18 10:15 07/10/18 10:14 Al Hydroxide/Mg Hydroxide (Maalox Susp) 30 ml Q6H PRN PO 06/10/18 10:15 07/10/18 10:14 Famotidine (Pepcid Tab) 20 mg Q12 PRN PO 06/10/18 10:15 07/10/18 10:14 Diphenhydramine HCl (Benadryl Cap) 25 mg Q6H PRN PO 06/10/18 10:15 07/10/18 10:14 Aspirin (Ecotrin Tab) 81 mg QDL PO 06/10/18 12:30 07/10/18 12:29 06/11/18 13:24 81 MG Levothyroxine Sodium (Synthroid Tab) 50 mcg DAILYBB PO 06/11/18 06:00 07/11/18 05:59 06/11/18 05:58 50 MCG Multivitamins (Multivitamin Tab) 1 tab QDD PO 06/10/18 17:45 07/10/18 17:59 06/11/18 18:01 1 TAB Prednisone (PredniSONE TAB) 20 mg QAM PO 06/11/18 09:00 07/11/18 08:59 06/11/18 08:58 20 MG Pantoprazole Sodium (Protonix Tab) 40 mg QDL PO 06/10/18 12:30 07/10/18 12:29 06/11/18 13:24 40 MG Insulin Aspart (novoLOG ASPART) SLIDING SCALE G... ACHS SC 06/10/18 17:15 07/10/18 17:14 06/11/18 18:03 6 UNITS Glucose (Glucose 40% Gel) 15-30 GRAMS 15 GRAMS... UD PRN PO 06/10/18 13:00 07/10/18 12:59 Glucose (Glucose Chew Tab) 4-8 Tablets 4 Tabl... UD PRN PO 06/10/18 13:00 07/10/18 12:59 Dextrose (Dextrose 50% 50ML Syringe) 25-50ML 25ML FOR ... UD PRN IV 06/10/18 13:00 07/10/18 12:59 Glucagon (Glucagon Inj) 1 mg UD PRN IM 06/10/18 13:00 07/10/18 12:59 Carbohydrates (Carbohydrates For Hypoglycemia) 15-30 GRAMS 15 grams if BSG 54-69... UD PRN PO 06/10/18 13:00 07/10/18 12:59 Insulin Glargine (Lantus Solostar Pen) 13 units BID SC 06/10/18 21:00 07/10/18 20:59 06/11/18 09:03 13 UNITS
[2018-06-11] MEDS: DOCUSATE SODIUM/SENNA 50/8.6MG TAB PO SCH (20:34)
[2018-06-11 23:10] VITALS: BP 121/71; PULSE 60; TEMP 36.4; O2SAT 96
[2018-06-12] MEDS: OXYCODONE HCL IR 5 MG TAB (IMMEDIATE RELEASE) PO PRN ×4 (04:04→20:51)
[2018-06-12] MEDS: LEVOTHYROXINE 50 MCG TAB PO SCH (05:47)
[2018-06-12] MEDS: POLYETHYLENE (MIRALAX) 17 GM PACK PO SCH ×4 (05:47→23:21)
[2018-06-12 07:01] VITALS: BP 122/76; PULSE 67; TEMP 36.5; O2SAT 95
[2018-06-12] MEDS: INSULIN ASPART 100 UNITS/ML 3 ML PEN SC SCH ×4 (08:00→20:53)
[2018-06-12] MEDS: INSULIN GLARGINE SOLOSTAR 100 UNITS/ML 3 ML PEN SC SCH ×2 (09:00→20:58)
--- NOTE | 2018-06-12 09:20 | Orthopedic Progress Note ---
Orthopedic Progress Note Date of Service Jun 12, 2018. Subjective Post OP Day: 2 Reports: feeling well Additional Notes: Patient is postop day #2. He is doing quite well at this point. He is tolerating food without any issues. He has not yet had a bowel movement. He denies any pain in his legs any other numbness, tingling, or paresthesias. Objective calves soft nontender, N/V intact, dressing C/D/I, A&O x3, CMS intact Date Time Temp Pulse Resp B/P (MAP) Pulse Ox O2 Delivery O2 Flow Rate FiO2 06/12/18 07:01 36.5 67 18 122/76 (91) 95 Room Air 06/11/18 23:45 Room Air 06/11/18 23:10 36.4 60 16 121/71 (88) 96 Room Air 06/11/18 15:15 Room Air 06/11/18 14:55 36.5 59 16 133/71 (91) 96 06/11/18 11:04 37.0 65 18 123/61 (81) 95 Room Air Assessment & Plan Assessment: Patient is doing well postoperative day 2 Plan: We will progress with physical therapy. We will continue with pain control measures. Continue GI DVT prophylaxis. Likely discharge will be to home on Wednesday. (1) Lumbar stenosis with neurogenic claudication Acute (2) Steroid-induced diabetes mellitus Chronic (3) Hypertension Chronic (4) Hypothyroidism Chronic (5) Erythema nodosum Chronic (6) GERD (gastroesophageal reflux disease) Chronic
--- NOTE | 2018-06-12 10:41 | Progress Note ---
Medicine Progress Note Date & Time of Visit: Jun 12, 2018 at 10:30 . Subjective Hypoglycemia this morning. Otherwise, doing well postoperatively. No chest pain. No cough or dyspnea. No nausea or vomiting. Not passing any flatus or stool yet. Vitale cath removed yesterday; voiding without difficulty. Postop pain well-controlled. . Objective Last 8 Hrs Date Time Temp Pulse Resp B/P (MAP) Pulse Ox O2 Delivery O2 Flow Rate FiO2 06/12/18 08:17 Room Air 06/12/18 07:01 36.5 67 18 122/76 (91) 95 Room Air Physical Exam: General- no distress Lungs- clear to auscultation; no respiratory distress Cardiovascular- RRR; no murmur; no gallop; no JVD; no pretibial edema Abdomen- + bowel sounds, soft, nontender Extremities- no cyanosis; no calf tenderness Neuro- alert, oriented Skin- warm & dry . Laboratory Results: Last 24 Hours Test 06/11/18 12:15 06/11/18 16:58 06/11/18 20:28 06/12/18 08:13 Bedside Glucose 139 mg/dl 144 mg/dl 98 mg/dl 70 mg/dl Test 06/12/18 09:29 Bedside Glucose 98 mg/dl Assessment & Plan S/P LUMBAR DECOMPRESSION / FUSION POD # 2. GERD Continue PPI. DM TYPE 2 Steroid-induced diabetes, usually controlled with metformin. Received dexamethasone perioperatively. Postop blood sugars as high as 346. Hold metformin during hospital stay. Receiving Lantus / NovoLog per protocol. FBS today = 70. Adjustments made to insulin orders. Discharge on usual regimen with metformin. HYPOTHYROIDISM Continue levothyroxine. ERYTHEMA NODOSUM Continue chronic prednisone. VTE PROPHYLAXIS Per Ortho protocol. Thank you for this consultation. We will follow the patient with you during their hospital stay. You can reach a member of the [facility] Medicine Team 31/05 via pager @ [phone]. You can reach me via cell @ [phone]. Dr. Alicea will be covering day shift starting Wednesday 06/13. . Current Inpatient Medications: Current Inpatient Medications Medications (Trade) Dose Ordered Sig/Julieta Route Start Time Stop Time Status Last Admin Dose Admin Promethazine HCl 12.5 mg/Sodium Chloride 50.5 ml @ 202 mls/hr Q6H PRN IV 06/10/18 10:15 07/10/18 10:14 Ondansetron HCl (Zofran Inj) 4 mg Q6H PRN IV 06/10/18 10:15 07/10/18 10:14 Metoclopramide HCl (Reglan Inj) 10 mg Q6H PRN IV 06/10/18 10:15 07/10/18 10:14 Lorazepam (Ativan Tab) 0.5 mg Q8H PRN PO 06/10/18 10:15 07/10/18 10:14 Lorazepam 0.5 mg/ Syringe 0.25 ml @ 1 mls/min Q8H PRN IV 06/10/18 10:15 07/10/18 10:14 Pneumococcal Polysaccharide Vaccine 1 ea PRN PRN N/A 06/10/18 10:15 07/10/18 10:14 Influenza Virus Vacc Triv Types A&B 1 ea PRN PRN N/A 06/10/18 10:15 07/10/18 10:14 Polyethylene (Miralax Powder Packet) 17 gm Q6 PO 06/12/18 06:00 07/12/18 05:59 06/12/18 05:47 17 GM Bisacodyl (Dulcolax Supp) 10 mg DAILY PRN AK 06/10/18 10:15 07/10/18 10:14 Magnesium Hydroxide (Milk Of Magnesia Susp) 30 ml DAILY PRN PO 06/10/18 10:15 07/10/18 10:14 Hydromorphone HCl (Dilaudid Inj) 0.5-1mg prn moder... Q3H PRN IV 06/10/18 12:00 06/24/18 11:59 06/11/18 23:52 1 MG Oxycodone HCl (Roxicodone Immediate Rel Tab) 5-10mg prn moderate to sev... Q4H PRN PO 06/10/18 12:00 06/24/18 11:59 06/12/18 08:17 10 MG Acetaminophen (Tylenol Tab) 1,000 mg Q8H PRN PO 06/10/18 10:15 07/10/18 10:14 Acetaminophen 100 ml @ 400 mls/hr Q8H PRN IV 06/10/18 10:15 07/10/18 10:14 Naloxone HCl (Narcan Inj) 0.1 mg Q5M PRN IV 06/10/18 10:15 07/10/18 10:14 Senna/Docusate Sodium (Senokot S Tab) 2 tab HS PO 06/10/18 21:00 07/10/18 20:59 06/11/18 20:34 2 TAB Sodium Biphosphate/ Sodium Phosphate (Fleet Enema) 132 ml ONE PRN AK 06/10/18 10:15 07/10/18 10:14 Hydroxyzine HCl (Vistaril Tab) 25 mg Q8H PRN PO 06/10/18 10:15 07/10/18 10:14 Al Hydroxide/Mg Hydroxide (Maalox Susp) 30 ml Q6H PRN PO 06/10/18 10:15 07/10/18 10:14 Famotidine (Pepcid Tab) 20 mg Q12 PRN PO 06/10/18 10:15 07/10/18 10:14 Diphenhydramine HCl (Benadryl Cap) 25 mg Q6H PRN PO 06/10/18 10:15 07/10/18 10:14 Aspirin (Ecotrin Tab) 81 mg QDL PO 06/10/18 12:30 07/10/18 12:29 06/11/18 13:24 81 MG Levothyroxine Sodium (Synthroid Tab) 50 mcg DAILYBB PO 06/11/18 06:00 07/11/18 05:59 06/12/18 05:47 50 MCG Multivitamins (Multivitamin Tab) 1 tab QDD PO 06/10/18 17:45 07/10/18 17:59 06/11/18 18:01 1 TAB Prednisone (PredniSONE TAB) 20 mg QAM PO 06/11/18 09:00 07/11/18 08:59 06/12/18 08:16 20 MG Pantoprazole Sodium (Protonix Tab) 40 mg QDL PO 06/10/18 12:30 07/10/18 12:29 06/11/18 13:24 40 MG Insulin Aspart (novoLOG ASPART) SLIDING SCALE G... ACHS SC 06/10/18 17:15 07/10/18 17:14 06/11/18 18:03 6 UNITS Glucose (Glucose 40% Gel) 15-30 GRAMS 15 GRAMS... UD PRN PO 06/10/18 13:00 07/10/18 12:59 Glucose (Glucose Chew Tab) 4-8 Tablets 4 Tabl... UD PRN PO 06/10/18 13:00 07/10/18 12:59 Dextrose (Dextrose 50% 50ML Syringe) 25-50ML 25ML FOR ... UD PRN IV 06/10/18 13:00 07/10/18 12:59 Glucagon (Glucagon Inj) 1 mg UD PRN IM 06/10/18 13:00 07/10/18 12:59 Carbohydrates (Carbohydrates For Hypoglycemia) 15-30 GRAMS 15 grams if BSG 54-69... UD PRN PO 06/10/18 13:00 07/10/18 12:59 Insulin Glargine (Lantus Solostar Pen) 13 units BID SC 06/10/18 21:00 07/10/18 20:59 06/11/18 20:40 13 UNITS
[2018-06-12] MEDS: PANTOprazole SOD 40 MG TAB PO SCH (13:07)
[2018-06-12] MEDS: ASPIRIN 81 MG ECTAB PO SCH (13:08)
[2018-06-12 15:05] VITALS: O2SAT 94
[2018-06-12 15:06] VITALS: BP 146/76; PULSE 65; TEMP 36.7; O2SAT 94
[2018-06-12] MEDS: MULTIVITAMIN TAB PO SCH (17:10)
[2018-06-12] MEDS: DOCUSATE SODIUM/SENNA 50/8.6MG TAB PO SCH (20:52)
[2018-06-12 23:15] VITALS: BP 152/80; PULSE 79; TEMP 36.8; O2SAT 92
[2018-06-13] MEDS: POLYETHYLENE (MIRALAX) 17 GM PACK PO SCH ×2 (05:01→11:44)
[2018-06-13] MEDS: LEVOTHYROXINE 50 MCG TAB PO SCH (05:01)
[2018-06-13] MEDS: OXYCODONE HCL IR 5 MG TAB (IMMEDIATE RELEASE) PO PRN ×2 (05:01→11:00)
[2018-06-13 06:15] VITALS: BP 135/77; PULSE 68; TEMP 36.8; O2SAT 96
--- NOTE | 2018-06-13 07:13 | Clinical Documentation Query ---
AVNI Kelly : CLINICAL DOCUMENTATION QUERY Patient is a 72 year old male who underwent posterior lumbar decompression and instrumented fusion. Preoperative H&H was 11.4 g/dl and 36.1%. POD #1, repeat values were 8.3 g/dl and 26.3%. EBL for the procedure was 475 ml's with subsequently documented losses totaling an additional 660 ml's to date. Additionally, net I/O positive for 2,700 ml's at this time. As appropriate. consider documentation as suggested below. Thank you. In your clinical opinion is this patient being managed for: ( x ) Acute blood loss and hemodilutional anemia ( ) Not Agree ( ) Other explanation of clinical findings (No explanation is considered a No Response) ( ) Unable to determine ( ) Need to Discuss (Phone CDS or qliq) (No discussion is considered a No Response) The medical record reflects the following clinical findings, treatment, and risk factors. Clinical Indicators: As above Treatment: Hematology, I/O including drain outputs. Risk Factors: Surgical losses, IVF administration. Please clarify and document your clinical opinion in the progress notes and discharge summary. Terms such as "probable", "suspected", "likely", "questionable", "possible", or "still to be ruled out" are acceptable. IF IN AGREEMENT, YOU MUST DOCUMENT ABOVE DIAGNOSTIC STATEMENT IN DAILY PROGRESS NOTES AND DISCHARGE SUMMARY. This document is not part of the patient's record. Thank You, Perry Sarabia, RN [phone]
[2018-06-13] MEDS: INSULIN GLARGINE SOLOSTAR 100 UNITS/ML 3 ML PEN SC SCH (07:30)
[2018-06-13] MEDS: INSULIN ASPART 100 UNITS/ML 3 ML PEN SC SCH ×2 (07:34→12:24)
[2018-06-13] MEDS ORDERED: RXC5 PO (07:43)
--- NOTE | 2018-06-13 07:44 | Discharge Instructions ---
Discharge Instructions Date of Service Jun 13, 2018. Admission Reason for Admission: Spinal Stenosis Discharge Discharge Diagnosis / Problem: lumbar stenosis Discharge Goals Goal(s): Improve function Activity Recommendations Activity Limitations: per Instructions/Follow-up section . Instructions / Follow-Up Instructions / Follow-Up ACTIVITY RECOMMENDATIONS: SELF CARE INSTRUCTIONS AFTER THORACIC/LUMBAR FUSIONS 1. You may walk to your tolerance. It is good exercise for your legs and back. Expect some back and intermittent leg aches and pains. 2. You may perform "counter-top" level activities (make a sandwich, valeria with a project, etc.). 3. No bending or lifting of more than 10 pounds or back twisting of any nature (roll like a log when turning in bed). 4. You may ride in a car for 20-30 minutes at a time. No driving until after your first visit with your doctor. 5. Frequent changes of position and restricting sitting to 30 minutes at a time will help limit the amount of back spasms and stiffness you may experience. 6. You may discontinue the use of ambulatory aids (cane, crutches, etc.) once your strength and confidence allow. 7. You may [employer] the shower and let water strike your incision when you arrive home at least once daily. Do not take a tub bath, sit in a hot tub or go into a swimming pool until after your first recheck in the office. SPECIAL CARE INSTRUCTIONS: VERY IMPORTANT TO READ AND REVIEW A. Your surgical incision has been closed with a cosmetic suture under the skin that will dissolve in about 6 weeks. In 14 days, you can use a pair of clean scissors and cut the suture that is left outside of the skin at the ends of your incision. 1. The small skin tapes can be removed 7 days after surgery if they have not fallen off by that point. 2. You may keep the wound open to air as much as possible to promote healing after post-op day number 5 unless told otherwise by your doctor. 3. If you think the wound looks like it is becoming infected (redness or worsening drainage) and/or you are experiencing fever, chill or worsening back pain and muscle spasms, contact the office so that we may evaluate you as soon as possible. B. Complications are uncommon, but please contact us if you have any signs or symptoms of: 1. wound infection (fever higher than 102.5 degrees F, redness, separation of wound, drainage, or increasing pain from the incision) 2. blood clots in legs (pain, swelling, redness and warmth in legs) 3. urinary tract infection (fever higher than 102.5 degrees F, burning upon urination or increased frequency of urination) 4. nerve problems (inability to walk on your toes or heels, numbness, loss of bowel or bladder control) 5. any other symptoms that concern you C. Please call the office at if you have any concerns or questions about your operation or recovery. D. No smoking! Smoking drastically decreases the chance of a solid fusion. E. Do not take any anti-inflammatory medications (Indocin, Advil, Motrin, Aspirin, Naprosyn, etc.) as these may inhibit the chance of a solid fusion. Tylenol is okay to take for pain. MANAGING PAIN AFTER SPINAL SURGERY 1. Narcotic medication is intended for short-term use and will be provided for surgical pain. Surgical pain usually lasts for a period of 4-6 weeks. Narcotic medication includes Percocet, Vicodin, Darvocet, Tylenol #3 or Lortab. 2. Longer-term pain is more appropriately treated with non-narcotic medication such as Tylenol ES. 3. Muscle spasm is not appropriately treated with narcotics. Muscle relaxers such as Soma, Flexeril or Skelaxin can be used along with Tylenol ES. 4. Remember that we all live with some "aches and pains". This is not unusual or uncommon after an injury or as we get older. a. Back pain is expected and may include muscle spasms for 4 to 6 weeks after surgery. The pain should gradually improve. If the pain worsens for no apparent reason, please contact the office. b. Intermittent leg pain may also be experienced and should not be concerned about unless it worsens for no apparent reason. If so, please contact the office. 5. We will provide appropriate medication within the normal guidelines of their prescribed use. We will also be very cautious and aware of potential abuse and extended duration of patients' medication needs. a. Pain medications are for your comfort and to assist with sleep and rest so that the tissue can heal. They are not provided in order to return to normal activity and should not be used through the day. To do so or worsening pain at night can result from ongoing tissue damage and development of tolerance to the prescribed medicine. 6. Please allow 2-3 days to process refills. Prescriptions will not be mailed but must be picked up at the office. FOLLOW UP VISIT: Keep your scheduled follow-up appointment. Any questions, please call the office at . Current Hospital Diet Patient's current hospital diet: Diabetes Type 2 Diet Discharge Diet Recommended Diet: Regular Diet Procedures Procedures Performed: 1. Lumbar decompression medial facetectomies foraminotomies L2-3 L3-4 L4-5. #2 posterior spinal fusion L2-3 L3-4 L4-5 per #3 placed posterior segmental instrumentation L2-L5. #4 placement of local autograft in the posterior gutters. #5 placement of infuse collagen sponge, mass graft and ostial amp in the posterior lateral gutters. Pending Studies Studies pending at discharge: no Laboratory Results Hemoglobin A1c Test 05/25/18 12:40 Range/Units Estimated Average Glucose 166 mg/dl Hemoglobin A1c 7.4 H 4.5-5.6 % Medical Emergencies . Who to Call and When: Medical Emergencies: If at any time you feel your situation is an emergency, please call 911 immediately. . Non-Emergent Contact Non-Emergency issues call your: Primary Care Provider . "Provider Documentation" section prepared by Vickey Irene. .
[2018-06-13 07:52] VITALS: BP 135/77; PULSE 68; TEMP 36.8; O2SAT 96
--- NOTE | 2018-06-13 08:07 | Anesthesiology Progress Note ---
Anesthesia Post Op Note Date & Time Jun 13, 2018 at 08:06 Vital Signs Vital Signs Past 12 Hours Date Time Temp Pulse Resp B/P (MAP) Pulse Ox O2 Delivery O2 Flow Rate FiO2 06/13/18 07:52 36.8 68 17 96 Room Air 06/13/18 07:09 Room Air 06/13/18 06:15 36.8 68 17 135/77 (96) 96 Room Air 06/12/18 23:20 Room Air 06/12/18 23:15 36.8 79 16 152/80 (104) 92 Room Air Notes Mental Status: alert / awake / arousable, participated in evaluation Pt Amnestic to Procedure: Yes Nausea / Vomiting: adequately controlled Pain: adequately controlled Airway Patency, RR, SpO2: stable & adequate BP & HR: stable & adequate Hydration State: stable & adequate Anesthetic Complications: no major complications apparent
[2018-06-13] MEDS: ASPIRIN 81 MG ECTAB PO SCH (11:44)
[2018-06-13] MEDS: PANTOprazole SOD 40 MG TAB PO SCH (11:44)
--- NOTE | 2018-06-13 13:36 | Discharge Summary ---
Orthopedic Discharge Summary Admission Date/Reason Jun 10, 2018 at 06:30 Spinal Stenosis. Discharge Date/Disposition Jun 13, 2018 Home Diagnosis Principal Diagnosis: Lumbar spinal stenosis Admission Physical Exam As per Admitting History & Physical. Hospital Course Patient with lumbar decompression fusion tolerated as well as taken with orthopedic for postoperative. Postop day #1 he was up and amatory progressed the postop day #2. Postop day #3 pain was well controlled LETY drain decreased appropriately. Subsequently was discharged home. Discharge orders and instructions can be found in the chart for further review. Discharge Instructions Please refer to the electronic Patient Visit Report (Discharge Instructions) for additional information.
== END 2018-06-13 13:04 | disposition home or self-care (01) | DRG 460 ==
LOC: C.ACU 05:38 → C.3E 06:30 → ENRESERV 11:07 → EDSTATUS 14:04
PROVIDERS: ADMIT Orthopaedic Surgery Orthopaedic Surgery of the Spine; ATTEND Orthopaedic Surgery Orthopaedic Surgery of the Spine
PROC: 0SG1371 Fusion of 2 or more Lumbar Vertebral Joints with Autologous Tissue Substitute, Posterior Approach, Posterior Column, Percutaneous Approach (ICD-10-PCS; principal; 2018-06-10 07:45)
PROC: 3E0U0GB Introduction of Recombinant Bone Morphogenetic Protein into Joints, Open Approach (ICD-10-PCS; principal; 2018-06-10 07:45)
DX: M48.062 Spinal stenosis, lumbar region with neurogenic claudication (principal); T38.0X5A Adverse effect of glucocorticoids and synthetic analogues, initial encounter; E09.9 Drug or chemical induced diabetes mellitus without complications; Z88.1 Allergy status to other antibiotic agents; Z79.84 Long term (current) use of oral hypoglycemic drugs; I10 Essential (primary) hypertension; E03.9 Hypothyroidism, unspecified; Z79.52 Long term (current) use 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; K21.9 Gastro-esophageal reflux disease without esophagitis; Y92.009 Unspecified place in unspecified non-institutional (private) residence as the place of occurrence of the external cause; Z82.49 Family history of ischemic heart disease and other diseases of the circulatory system; Z83.3 Family history of diabetes mellitus; Z87.891 Personal history of nicotine dependence

== ENCOUNTER 2024-09-29 18:19 | Inpatient (IN) ==
[2024-09-29] MEDS ORDERED: VANCOMYCIN CONSULT ACTIVE PRN (18:42)
--- NOTE | 2024-09-29 18:49 | Emergency Department Note ---
Impression & Plan Osteomyelitis, LIZZ (acute kidney injury) ED Provider Note NAME: ELANA MATTA AGE: 78 SEX: M : 1945 ARRIVES VIA: Walk-In INFORMANT: Patient, ED PROVIDER(S): Alden Freitas DO CHIEF COMPLAINT: Drainage from the back HPI: The patient is a 78-year-old male who presented to the emergency department because of drainage in his lower back. The patient is a remote history of lumbar spine surgery. Over the last several weeks going back to July he started noticing swelling and pain in this area. He was lying flat for an MRI but he was also admitted to [facility] previously. He started having some breakdown this area as well as drainage. The patient was seen by wound care center. [facility] He had an MRI today that showed an area of osteomyelitis corresponding to where the area of drainages. The patient denies having any fever or vomiting. He denies having abdominal pain. He was sent to the emergency department for admission. ROS: See above HPI for pertinent positives & negatives. A total of 10 systems reviewed and were otherwise negative. PAST MEDICAL HISTORY: See Below PAST SURGICAL HISTORY: See Below FAMILY HISTORY: See Below SOCIAL HISTORY: See Below HOME MEDICATIONS: See Below ALLERGIES: See Below VITALS: See Below PHYSICAL EXAMINATION: GENERAL: Patient is awake alert in no acute distress patient is resting comfortably and showing no signs of anxiety EYES: The conjunctivae are clear. The pupils are round and reactive. EARS, NOSE, MOUTH AND THROAT: The nose is without any evidence of any deformity. Mucous membranes are moist. Tongue is midline. NECK: The neck is nontender and supple. RESPIRATORY: Normal respiratory effort is noted there is no evidence of wheezing rhonchi or rales CARDIOVASCULAR: Regular rate and rhythm noted there no murmurs rubs or gallops normal S1 normal S2. GASTROINTESTINAL: The abdomen is soft. Abdomen is nontender. BACK: Range of motion appears intact. MUSCULOSKELETAL/EXTREMITIES: There is no evidence of gross deformity full range of motion is noted in the hips and shoulders. SKIN: Skin was warm and dry. Chronic venous stasis changes were noted. Pedal edema was noted bilaterally. There was an area over the lumbar spine which is indurated and erythematous. There was a small amount of drainage noted and a fistulous tract. NEUROLOGIC: Patient is awake alert and oriented x3 MEDICAL DECISION MAKING: The patient is a 78-year-old male who presented to the emergency department for an evaluation of drainage over his lumbar spine. The patient has a remote history of spine surgery in the past but he started noticing swelling and drainage over his upper lumbar spine. He did have an MRI recently that showed an area that could be consistent with osteomyelitis corresponding to the area drainage. The patient was treated with IV antibiotics in emergency department. I discussed his condition with the on-call [facility] hospitalist. They have agreed to evaluate the patient in the emergency department for further management and disposition. Triage Nursing notes reviewed. Prior medical records reviewed Vital Signs: reviewed and remarkable for no significant abnormalities Differential diagnosis: Cellulitis, abscess, MRSA infection, DVT, necrotizing fasciitis, dermatitis, drug eruption, allergic reaction, as well as other pathologies. ER treatment provided: See below Diagnostics interpreted by me: ECG: EKG was obtained in the emergency department. My interpretation is normal sinus rhythm at 62 bpm. There is no ectopy. There is no acute ST segment abnormalities noted. No previous tracing was available. Cardiac Monitoring: An order was placed for continuous cardiac monitoring. The monitor shows a rate of 68 bpm with sinus rhythm. Laboratory studies: As stated above and show below. Imaging studies: See below. Consultation(s): I discussed this case with Giovanna who is on-call for the [facility]. Past Med/Surg History Problem List (Updated 09/29/24 @ 21:28 by Alden Freitas DO) LIZZ (acute kidney injury) (Acute) Osteomyelitis (Acute) Chronic anemia Hx of lumbosacral spine surgery Open wound of lumbar region Osteoporosis Primary hypogonadism in male Lumbar stenosis with neurogenic claudication (Acute) Hypertension (Chronic) Hypothyroidism (Chronic) Erythema nodosum (Chronic) GERD (gastroesophageal reflux disease) (Chronic) Mediastinal lymphadenopathy (Chronic) "Follow by Dr Aguilar, pulomology, s/p EBUS and bx on 12/09/17, to f/u pulmonology and repeat CT scan" Medical History Gynecomastia Hemorrhoids Diverticulosis H/O acute pancreatitis Paroxysmal A-fib Hyperglobulinemia hx of HLD (hyperlipidemia) Hypertension Herpes simplex infection crusted, involving lips and right nares Multiple bruises Generalized weakness Hypothyroid Peripheral edema Peripheral edema Pneumonia positive for rhinovius and aspergillosis Diastolic CHF Diabetes CKD (chronic kidney disease), stage IV Erythema nodosum ANCA positive, on chronic prednisone Surgical History History of cataract surgery History of back surgery H/O lymph node biopsy possible sarcoid History of bronchoscopy H/O left inguinal hernia repair Family History Mother Stroke Myocardial infarction Father Heart disease Social History Smoking Status: Never smoker Hx Alcohol Use: Yes Alcohol type: beer Alcohol Intake Frequency: 2-3 x/Week Preferred Language: Upper Sorbian Feels Safe at Home: Yes Allergies Allergies Allergy/AdvReac Type Severity Reaction Status Date / Time chlorhexidine Allergy Severe Verified 03/16/24 09:47 aztreonam Allergy hives Verified 03/16/24 09:47 Cephalosporins AdvReac Unknown UPSET Verified 03/16/24 09:47 STOMACH ciprofloxacin AdvReac Unknown DIARRHEA Verified 03/16/24 09:47 Iodinated Contrast Media AdvReac Unknown Verified 03/16/24 09:47 levofloxacin AdvReac Unknown Verified 03/16/24 09:47 Home Meds Home Medications Medication Instructions Recorded Confirmed acetaminophen 325 mg tablet 325 mg PO QID PRN Pain (Scale 10/15/21 09/29/24 (Tylenol) Score 1-3) albuterol sulfate 1.25 mg/3 mL 1.25 mg inhalation BID PRN sob 10/15/21 09/29/24 solution for nebulization apixaban 5 mg tablet (Eliquis) 5 mg PO BID 10/15/21 09/29/24 levothyroxine 50 mcg tablet 50 mcg PO DAILY 10/15/21 09/29/24 metoprolol succinate 25 mg 25 mg PO DAILY 10/15/21 09/29/24 tablet,extended release 24 hr omeprazole 20 mg capsule,delayed 20 mg PO DAILY 10/15/21 09/29/24 release atorvastatin 20 mg tablet 20 mg PO DAILY 03/19/22 09/29/24 allopurinol 100 mg tablet 200 mg PO DAILY 03/16/24 09/29/24 folic acid 1 mg tablet 1 mg PO DAILY 09/29/24 09/29/24 furosemide 20 mg tablet 20 mg PO DAILY PRN Edema 09/29/24 09/29/24 oxycodone 5 mg tablet 5 mg PO Q6H PRN Moderate Pain 09/29/24 09/29/24 (Scale Score 5-6) sodium bicarbonate 650 mg tablet 650 mg PO AMHS 09/29/24 09/29/24 umeclidinium 62.5 mcg-vilanterol 1 inh inhalation DAILY 09/29/24 09/29/24 25 mcg/actuation powdr for inhalation Previous Rx's Medication Instructions Recorded syringe with needle, safety 3 mL #100 ea 04/13/23 21 gauge x 1" (Monoject Safety Syringes) calcitriol 0.25 mcg capsule 0.25 mcg PO DAILY #30 caps 03/16/24 testosterone cypionate 100 mg/mL 75 mg (0.75 mL) subcut Q7D #10 mL 05/31/24 intramuscular oil Results & Data (ED) Vital Signs Vital Signs - 24 hr 09/29/24 18:21 09/29/24 19:07 09/29/24 19:07 Temperature 37 C Temperature Source Skin Pulse Rate 83 Pulse Rate [Apical] 67 Pulse Rate from SpO2 Sensor Respiratory Rate 16 24 Respiratory Effort / Characteristics Non-Labored Spontaneous Non-Labored Respiratory Depth Normal Normal Respiratory Pattern Regular Regular Blood Pressure 170/86 H Blood Pressure [Right Arm] 152/84 H Blood Pressure Mean 114 Blood Pressure Mean [Right Arm] 106 Blood Pressure Position [Right Arm] Lying Pulse Oximetry 94 97 100 Oxygen Delivery Method Room Air Room Air Sepsis Recent Fever Within 48 Hours No Sepsis New/Unexplained Change in Mental Status N/A Sepsis Action Taken by Nursing No Action Required 09/29/24 19:09 09/29/24 19:18 09/29/24 19:23 Temperature Temperature Source Pulse Rate 66 60 64 Pulse Rate [Apical] Pulse Rate from SpO2 Sensor Respiratory Rate 22 24 Respiratory Effort / Characteristics Respiratory Depth Respiratory Pattern Blood Pressure 145/78 H Blood Pressure [Right Arm] Blood Pressure Mean 107 Blood Pressure Mean [Right Arm] Blood Pressure Position [Right Arm] Pulse Oximetry 100 99 Oxygen Delivery Method Room Air Sepsis Recent Fever Within 48 Hours Sepsis New/Unexplained Change in Mental Status Sepsis Action Taken by Nursing 09/29/24 19:32 09/29/24 19:45 09/29/24 19:45 Temperature Temperature Source Pulse Rate 61 60 Pulse Rate [Apical] Pulse Rate from SpO2 Sensor Respiratory Rate 16 23 Respiratory Effort / Characteristics Respiratory Depth Respiratory Pattern Blood Pressure 143/83 H 157/81 H 157/81 H Blood Pressure [Right Arm] Blood Pressure Mean 99 108 108 Blood Pressure Mean [Right Arm] Blood Pressure Position [Right Arm] Pulse Oximetry 98 100 Oxygen Delivery Method Sepsis Recent Fever Within 48 Hours Sepsis New/Unexplained Change in Mental Status Sepsis Action Taken by Nursing 09/29/24 19:54 09/29/24 20:30 09/29/24 21:15 Temperature Temperature Source Pulse Rate 63 Pulse Rate [Apical] 66 62 Pulse Rate from SpO2 Sensor 63 Respiratory Rate 24 20 17 Respiratory Effort / Characteristics Non-Labored Non-Labored Respiratory Depth Normal Normal Respiratory Pattern Regular Regular Blood Pressure Blood Pressure [Right Arm] 138/78 148/78 H Blood Pressure Mean Blood Pressure Mean [Right Arm] 98 101 Blood Pressure Position [Right Arm] Pulse Oximetry 94 100 98 Oxygen Delivery Method Room Air Room Air Sepsis Recent Fever Within 48 Hours Sepsis New/Unexplained Change in Mental Status Sepsis Action Taken by Custodial Medications Current Medication List: was personally reviewed by me Laboratory Data Attestation: I reviewed the patient's lab results. 09/29/24 19:00 09/29/24 19:00 Lab Results 09/29/24 09/29/24 09/29/24 Range/Units 19:00 19:38 20:55 WBC 7.37 (4.8-10.8) K/ul RBC 3.28 L (4.70-6.10) M/uL Hgb 11.1 L (14.0-18.0) g/dl Hct 35.0 L (42.0-52.0) % MCV 106.7 H (80.0-100.0) fL MCH 33.8 (25.0-34.0) pg MCHC 31.7 L (32.0-36.0) g/dL RDW Std Deviation 60.6 H (36.4-46.3) fL RDW Coeff of Rk 15.2 H (11.5-14.5) % Plt Count 124 L (130-400) K/uL MPV 12.2 (9.4-12.4) fL Immature Gran % (Auto) 1.5 % Neut % (Auto) 65.7 % Lymph % (Auto) 22.1 % [place] % (Auto) 7.3 % Eos % (Auto) 3.0 % Baso % (Auto) 0.4 % Neut # (Auto) 4.84 (1.40-6.50) K/uL Lymph # (Auto) 1.63 (1.20-3.40) K/uL [place] # (Auto) 0.54 (0.11-0.59) K/uL Eos # (Auto) 0.22 (0.00-0.50) K/uL Baso # (Auto) 0.03 (0.00-0.20) K/uL Immature Gran # (Auto) 0.11 (0.01-0.20) K/uL ESR 21 H (0-20) mm/hr PT 10.9 (9.0-12.0) Seconds INR 1.0 (0.9-1.1) APTT 23 (21-31) Seconds PTT Ratio 0.9 Sodium 140 (136-145) mmol/L Potassium 4.3 (3.5-5.1) mmol/L Chloride 104 (98-107) mmol/L Carbon Dioxide 29 (21-32) mmol/L Anion Gap 7 (3-11) BUN 54 H (6-23) mg/dl Creatinine 3.15 H (0.6-1.4) mg/dl Est Cr Clr Drug Dosing 18.1 ml/min eGFR 19.44 BUN/Creatinine Ratio 17.1 (10-20) Glucose 86 (70-99(Fasting)) mg/dl Lactate 1.0 (0.4-2.0) mmol/L Calcium 9.7 (8.6-10.3) mg/dl Magnesium 1.8 (1.7-2.4) mg/dl Total Bilirubin 0.4 (0.2-1.0) mg/dl Direct Bilirubin 0.0 (0-0.2) mg/dl AST 22 (13-39) U/L ALT 14 (7-52) U/L Alkaline Phosphatase 51 (34-104) U/L Troponin I High Sens 18.2 (0-20) pg/ml Total Protein 7.1 (6.0-8.3) gm/dl Albumin 3.9 (3.4-5.0) gm/dl Procalcitonin 0.10 (0-0.5) ng/ml Urine Color Yellow Urine Appearance Clear (Clear) Urine pH 7.5 (4.5-7.5) Ur Specific [place] 1.012 (1.000-1.030) Urine Protein Trace H (Negative) Urine Glucose (UA) Trace H (Negative) Urine Ketones Negative (Negative) Urine Blood Negative (Negative) Urine Nitrite Negative (Negative) Urine Bilirubin Negative (Negative) Urine Urobilinogen Negative (Negative) Ur Leukocyte Esterase Negative (Negative) Urine WBC (Auto) 0-5 (0-5) /hpf Urine RBC (Auto) 0-2 (0-2) /hpf U Hyaline Cast (Auto) 0-2 (0-2) /lpf U Epithel Cells (Auto) 0-2 (0-2) /hpf Urine Bacteria (Auto) None Seen (None Seen) Administered Medications Discontinued Medications Ceftriaxone Sodium (Rocephin) 2,000 mg in 50 mls @ 100 mls/hr IV NOW STA Stop: 09/29/24 19:11 Last Infusion: 09/29/24 19:46 Dose: Infused Documented By: Admin: 09/29/24 19:09 Dose: 100 mls/hr Documented By: ANA Vancomycin HCl 1,500 mg/ (Sodium Chloride) 530 mls @ 200 mls/hr IV NOW ONE Stop: 09/29/24 21:20 Last Admin: 09/29/24 19:47 Dose: 200 mls/hr Documented By: ANA Discharge Plan Visit Data Chief Complaint: Abnormal Labs/Diagnostic Testing Stated Complaint: CALLED IN AFTER MRI ED Provider: Alden Feritas Discharge Problem: Osteomyelitis, LIZZ (acute kidney injury) Patient Disposition: Being Evaluated by Hospitalist Forms Stand Alone Forms: My [facility] Prescriptions Prescriptions: No Action (DME) Monoject Safety Syringes 3 mL 21 gauge x 1" syringe See Rx Instructions .Route Qty: 100 0RF Rx Instructions: Use to inject testosterone once a week testosterone cypionate 100 mg/mL oil 75 mg subcut Q7D Qty: 10 2RF Rx Instructions: Give 75mg IM once a week. Eliquis 5 mg tablet 5 mg PO BID metoprolol succinate 25 mg tablet extended release 24 hr 25 mg PO DAILY omeprazole 20 mg capsule,delayed release(DR/EC) 20 mg PO DAILY levothyroxine 50 mcg tablet 50 mcg PO DAILY albuterol sulfate 1.25 mg/3 mL solution for nebulization 1.25 mg inhalation BID PRN (Reason: sob) acetaminophen [Tylenol] 325 mg tablet 325 mg PO QID PRN (Reason: Pain (Scale Score 1-3)) atorvastatin 20 mg tablet 20 mg PO DAILY allopurinol 100 mg tablet 200 mg PO DAILY calcitriol 0.25 mcg capsule 0.25 mcg PO DAILY Qty: 30 5RF sodium bicarbonate 650 mg Tablet 650 mg PO AMHS folic acid 1 mg Tablet 1 mg PO DAILY furosemide 20 mg tablet 20 mg PO DAILY PRN (Reason: Edema) oxycodone 5 mg tablet 5 mg PO Q6H PRN (Reason: Moderate Pain (Scale Score 5-6)) umeclidinium-vilanterol 62.5-25 mcg/actuation Blister With Device 1 inh INHALATION DAILY Referrals Referrals: Fuentes Ashton MD [Primary Care Provider] - Discharge Problem: Osteomyelitis Qualifiers: Osteomyelitis type: unspecified type Osteomyelitis location: unspecified site Q ualified Code(s): M86.9 - Osteomyelitis, unspecified
[2024-09-29] MEDS: cefTRIAXone SODIUM 2,000 MG/50 ML BAG IV STA (19:09)
[2024-09-29 19:24] LABS: Basophils # (auto) 0.03 K/uL (0.00-0.20); Basophils % (auto) 0.4 %; Eosinophils # (auto) 0.22 K/uL (0.00-0.50); Hemoglobin 11.1 g/dl (14.0-18.0); Immature Granulocytes # (auto) 0.11 K/uL (0.01-0.20); Immature Granulocytes % (auto) 1.5 %; Lymphocytes # (auto) 1.63 K/uL (1.20-3.40); Lymphocytes % (auto) 22.1 %; Mean Corpuscular Hemoglobin 33.8 pg (25.0-34.0); Mean Corpuscular Hgb Conc 31.7 g/dL (32.0-36.0); Mean Corpuscular Volume 106.7 fL (80.0-100.0); Mean Platelet Volume 12.2 fL (9.4-12.4); Monocytes # (auto) 0.54 K/uL (0.11-0.59); Monocytes % (auto) 7.3 %; Neutrophils # (auto) 4.84 K/uL (1.40-6.50); Neutrophils % (auto) 65.7 %; Platelet Count 124 K/uL (130-400); RDW Coefficient of Variation 15.2 % (11.5-14.5); RDW Standard Deviation 60.6 fL (36.4-46.3); Red Blood Count 3.28 M/uL (4.70-6.10); White Blood Count 7.37 K/ul (4.8-10.8)
--- NOTE | 2024-09-29 19:46 | History & Physical Report ---
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 Lumbar Spine MRI: IMPRESSION1. L2-L5 instrumented fusion and L2-L4 laminectomies.2. Severe L5-S1 distal junctional thecal sac stenosis.3. Dorsal subcutaneous fat stranding and swelling with a shallow sinus tract. Artifact limiting assessment of sinus tract depth with accuracy. L1 spinous process signal abnormality with new erosion involving the tip of L1 spinous process. The differential includes reactive osteitis and/or osteomyelitis. Lumbar Spine Wound Hx of Lumbar spine surgery admit to [facility] consult ortho spine Dr. Irene to determine if surgical intervention required IV antibiotics with vanco/rocephin, MRSA swab obtain surface culture, consult wound care no current neuro deficit or weakness at this time initial admitting lab work up still pending including blood cultures, ESR, CRP, CMP, Trop, procal PAF: chronic, stable, continue metoprolol and eliquis for now, if going to require surgical procedure will need to determine timing of hold eliquis Chronic HFpEF HTN/HLD chronic, stable, continue home meds daily weights, hypervolemic on exam, on prn lasix, monitor I and O CKD-4 baseline cr 2.7-3, follows Dr. Gunn, hx of LIZZ in past after nephrotoxic agents, avoid, monitor renal fxn daily, hx of requiring HD in the past COPD: chronic, stable, continue inhaler Chronic gout: continue allopurinol SCC of left neck cutaneous tissue s/p dissection requiring reconstruction and flap procedure in August in [place] currently to undergo adjuvant radiation at [facility] DVT ppx: Eliquis FULL CODE PCP: Poli Dispo: admit to med tele Pt was seen and examined in collaboration with Dr. Arenas, please see addendum History of Present Illness Chief Complaint: Referred to ED 2/2 abn MRI. 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 Of significance patient had prior lumbar spine surgery [address] Irene. Ever since the surgery he states he has felt a lump in his lower back. Since August He reports a wound opening in his lower back. He reports that you can put a Q-tip the hallway in the wound. He reports cleared white drainage from the wound. He denies any fever, chills, sweats, lower extremity weakness, bowel or bladder incontinence, saddle anesthesia, numbness or tingling of the lower extremities. He does have chronic low back pain that is unchanged. He also denies any chest pain, shortness with, nausea, vomiting or abdominal pain. Due to his lower back wound and MRI was obtained today due to concern For infection. MRI revealed L2-L5 instrumented fusion and L2-L4 laminectomies, severe L5-S1 distal junctional thecal sac stenosis, dorsal subcutaneous fat stranding and swelling with a shallow sinus tract. L1 spinous process signal abnormality with new erosion involvement at the tip of the L1 spinous process differential diagnosis includes reactive osteitis and/or osteomyelitis. Due to abnormal finding patient was referred for admission. Patient, and other family member are at bedside who also helps elicit history. Of significance he does have a prior history of CKD stage IV with a baseline creatinine of approximately 2.7. 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 His postoperative course was complicated by pectoral flap hematoma x 2 and anemia. This was done by Dr. Steve Aldridge. Allergies Allergy/AdvReac Type Severity Reaction Status Date / Time chlorhexidine Allergy Severe Verified 03/16/24 09:47 aztreonam Allergy hives Verified 03/16/24 09:47 Cephalosporins AdvReac Unknown UPSET Verified 03/16/24 09:47 STOMACH ciprofloxacin AdvReac Unknown DIARRHEA Verified 03/16/24 09:47 Iodinated Contrast Media AdvReac Unknown Verified 03/16/24 09:47 levofloxacin AdvReac Unknown Verified 03/16/24 09:47 Home Medications Medication Instructions Recorded Confirmed Type acetaminophen 325 mg tablet 325 mg PO QID PRN Pain (Scale 10/15/21 09/29/24 History (Tylenol) Score 1-3) albuterol sulfate 1.25 mg/3 mL 1.25 mg inhalation BID PRN sob 10/15/21 09/29/24 History solution for nebulization apixaban 5 mg tablet (Eliquis) 5 mg PO BID 10/15/21 09/29/24 History levothyroxine 50 mcg tablet 50 mcg PO DAILY 10/15/21 09/29/24 History metoprolol succinate 25 mg 25 mg PO DAILY 10/15/21 09/29/24 History tablet,extended release 24 hr omeprazole 20 mg capsule,delayed 20 mg PO DAILY 10/15/21 09/29/24 History release atorvastatin 20 mg tablet 20 mg PO DAILY 03/19/22 09/29/24 History syringe with needle, safety 3 mL #100 ea 04/13/23 09/29/24 Rx 21 gauge x 1" (Monoject Safety Syringes) allopurinol 100 mg tablet 200 mg PO DAILY 03/16/24 09/29/24 History calcitriol 0.25 mcg capsule 0.25 mcg PO DAILY #30 caps 03/16/24 09/29/24 Rx testosterone cypionate 100 mg/mL 75 mg (0.75 mL) subcut Q7D #10 mL 05/31/24 09/29/24 Rx intramuscular oil folic acid 1 mg tablet 1 mg PO DAILY 09/29/24 09/29/24 History furosemide 20 mg tablet 20 mg PO DAILY PRN Edema 09/29/24 09/29/24 History oxycodone 5 mg tablet 5 mg PO Q6H PRN Moderate Pain 09/29/24 09/29/24 History (Scale Score 5-6) sodium bicarbonate 650 mg tablet 650 mg PO AMHS 09/29/24 09/29/24 History umeclidinium 62.5 mcg-vilanterol 1 inh inhalation DAILY 09/29/24 09/29/24 History 25 mcg/actuation powdr for inhalation Past Med/Surg History Problem List (Updated 09/29/24 @ 19:38 by Giovanna Munguia PA-C) Chronic anemia Hx of lumbosacral spine surgery Open wound of lumbar region Osteoporosis Primary hypogonadism in male Lumbar stenosis with neurogenic claudication (Acute) Hypertension (Chronic) Hypothyroidism (Chronic) Erythema nodosum (Chronic) GERD (gastroesophageal reflux disease) (Chronic) Mediastinal lymphadenopathy (Chronic) "Follow by Dr Aguilar, pulomology, s/p EBUS and bx on 12/09/17, to f/u pulmonology and repeat CT scan" Medical History Gynecomastia Hemorrhoids Diverticulosis H/O acute pancreatitis Paroxysmal A-fib Hyperglobulinemia hx of HLD (hyperlipidemia) Hypertension Herpes simplex infection crusted, involving lips and right nares Multiple bruises Generalized weakness Hypothyroid Peripheral edema Peripheral edema Pneumonia positive for rhinovius and aspergillosis Diastolic CHF Diabetes CKD (chronic kidney disease), stage IV Erythema nodosum ANCA positive, on chronic prednisone Surgical History History of cataract surgery History of back surgery H/O lymph node biopsy possible sarcoid History of bronchoscopy H/O left inguinal hernia repair Family History Mother Stroke Myocardial infarction Father Heart disease Social History Smoking Status: Never smoker Hx Alcohol Use: Yes Alcohol type: beer Alcohol Intake Frequency: 2-3 x/Week Preferred Language: Mohawk Feels Safe at Home: Yes Review of Systems Review of Systems: All systems reviewed & are unremarkable except as noted in HPI & below Physical Exam Physical Exam: please refer to Dr. Arenas addendum for physical exam findings. Results & Data Results & Data Vital Signs (Past 12 Hours) Vital Signs Temp Pulse Pulse Resp BP BP Pulse Ox 09/29/24 19:09 66 09/29/24 19:07 67 24 152/84 H 97 09/29/24 18:21 37 C 83 16 170/86 H 94 O2 Del Method 09/29/24 19:09 09/29/24 19:07 Room Air 09/29/24 18:21 Room Air Diagnostic Findings lumbar spine MRI: IMPRESSION 1. L2-L5 instrumented fusion and L2-L4 laminectomies. 2. Severe L5-S1 distal junctional thecal sac stenosis. 3. Dorsal subcutaneous fat stranding and swelling with a shallow sinus tract. Artifact limiting assessment of sinus tract depth with accuracy. L1 spinous process signal abnormality with new erosion involving the tip of L1 spinous process. The differential includes reactive osteitis and/or osteomyelitis. Medications Administered Medication List Discontinued Medications Ceftriaxone Sodium (Rocephin) 2,000 mg in 50 mls @ 100 mls/hr IV NOW STA Stop: 09/29/24 19:11 Last Admin: 09/29/24 19:09 Dose: 100 mls/hr Documented By: CDM ECG Additional Comments: I have independently reviewed and interpreted patient's admitting EKG which revealed: NSR 62 bpm, qtc 412ms, no st or t wave c rudolph COVID-19 Results Results COVID-19 Adm Lab Results: RBC 3.28 M/uL (4.70-6.10) L 09/29/24 WBC 7.37 K/ul (4.8-10.8) 09/29/24 Hgb 11.1 g/dl (14.0-18.0) L 09/29/24 Hct 35.0 % (42.0-52.0) L 09/29/24 Plt Count 124 K/uL (130-400) L 09/29/24 Neutrophils (%) (Auto) 65.7 % 09/29/24 Lymphocytes (%) (Auto) 22.1 % 09/29/24 Monocytes # (Auto) 0.54 K/uL (0.11-0.59) 09/29/24 Eosinophils # (Auto) 0.22 K/uL (0.00-0.50) 09/29/24 Immature Granulocyte % (Auto) 1.5 % 09/29/24 Neutrophils # (Auto) 4.84 K/uL (1.40-6.50) 09/29/24 Lymphocytes # (Auto) 1.63 K/uL (1.20-3.40) 09/29/24 Monocytes # (Auto) 0.54 K/uL (0.11-0.59) 09/29/24 Eosinophils # (Auto) 0.22 K/uL (0.00-0.50) 09/29/24 Basophils # (Auto) 0.03 K/uL (0.00-0.20) 09/29/24 Immature Granulocyte # (Auto) 0.11 K/uL (0.01-0.20) 4 Na 140 mmol/L (136-145) 09/29/24 K 4.3 mmol/L (3.5-5.1) 09/29/24 Cl 104 mmol/L (98-107) 09/29/24 CO2 29 mmol/L (21-32) 09/29/24 Anion Gap 7 (3-11) 09/29/24 BUN 54 mg/dl (6-23) H 09/29/24 Creatinine 3.15 mg/dl (0.6-1.4) H 09/29/24 BUN/Creatinine Ratio 17.1 (10-20) 09/29/24 Glucose Level 86 mg/dl (70-99(Fasting)) 09/29/24 Ca 9.7 mg/dl (8.6-10.3) 09/29/24 Total Bilirubin 0.4 mg/dl (0.2-1.0) 09/29/24 Direct Bilirubin 0.0 mg/dl (0-0.2) 09/29/24 AST/SGOT 22 U/L (13-39) 09/29/24 ALT/SGPT 14 U/L (7-52) 09/29/24 Alkaline Phosphatase 51 U/L (34-104) 09/29/24 Total Protein 7.1 gm/dl (6.0-8.3) 09/29/24 Albumin 3.9 gm/dl (3.4-5.0) 09/29/24 CRP Pending 09/29/24 Procalcitonin 0.10 ng/ml (0-0.5) 09/29/24 PTT 23 Seconds (21-31) 09/29/24 INR 1.0 (0.9-1.1) 09/29/24 Code Status & VTE Plan Code Status FULL CODE VTE Prophylaxis Plan VTE Prophylaxis will be ordered: No Supervising Physician Co-Signing Physician Notes Attending addendum The patient was seen and examined in the presence of the family members He has been complaining of a lump at the lower back for a long time with a history of lumbar spine surgery 6 years ago His lump has been draining almost clear liquid at least since August and for that he has been followed up with Drs. More or less regularly His drain is increased with increasing pain for the last few days and has had an MRI done as an outpatient which showed possible osteomyelitis involving the lumbar spine and he was advised to come to the emergency room for continuation of care Denies any fever and chills, any nausea vomiting, any numbness tingling in the extremities or any weakness involving any side of the body On examination Lying in bed without any acute distress Hemodynamically stable and is afebrile Chestdecreased breath sound at the bases with occasional crackles HeartS1-S2, regular with a 2/6 ESM over precordium Abdomenbenign Extremities1+ edema bilaterally Local examination of the spine did show a small lump involving the upper lumbar area with minimal drainage which is covered with a Band-Aid. Minimal tenderness with adjoining area CNSalert, awake and oriented x 3. No focal sensory and motor deficit appreciated His admission labs, EKG and outpatient imaging studies reviewed Chronic back wound likely is sinus with recent evidence of possible lumbar spine involvement with osteomyelitis without any evidence of sepsis Wound culture and blood cultures were taken and he will be given intravenous vancomycin depending on the creatinine clearance Acute on chronic kidney disease-will need to monitor kidney function while in the hospital Will continue Eliquis for now if any plan for I&D we can transition to heparin Agree with assessment and plan as outlined above by Giovanna Peralta PA-C and take the full responsibility of care Dr Mary Arenas
[2024-09-29] MEDS: VANCOMYCIN HCL 1,500 MG in SODIUM CHLORIDE 0.9% 500 ML IV ONE (19:47)
[2024-09-29 19:50] LABS: Albumin Level 3.9 gm/dl (3.4-5.0); Bilirubin,Total 0.4 mg/dl (0.2-1.0); Calcium 9.7 mg/dl (8.6-10.3); Magnesium 1.8 mg/dl (1.7-2.4); Potassium 4.3 mmol/L (3.5-5.1)
[2024-09-29 19:56] LABS: BUN Creatinine Ratio 17.1 (10-20); Creatinine Clr Calc Pharmacy 18.1 ml/min; Total Protein 7.1 gm/dl (6.0-8.3)
[2024-09-29 19:59] LABS: Troponin I High Sensitivity 18.2 pg/ml (0-20)
[2024-09-29 20:06] LABS: Partial Thromboplastin Ratio 0.9; Partial Thromboplastin Time 23 Seconds (21-31); Prothrombin Time 10.9 Seconds (9.0-12.0)
[2024-09-29 21:13] LABS: Appearance Urine Clear (Clear); Bacteria Urine Automated None Seen (None Seen); Bilirubin Urine Negative (Negative); Blood Urine Negative (Negative); Cast Urine Automated 0-2 /lpf (0-2); Color Urine Yellow; Epithelial Cell Urine Auto 0-2 /hpf (0-2); Glucose Urine UA Trace (Negative); Ketones Urine Negative (Negative); Leukocyte Esterase Urine Negative (Negative); Nitrite Urine Negative (Negative); Protein Urine Trace (Negative); RBC Urine Automated 0-2 /hpf (0-2); Specific Gravity Urine 1.012 (1.000-1.030); Urobilinogen Urine Negative (Negative); WBC Urine Automated 0-5 /hpf (0-5); pH Urine 7.5 (4.5-7.5)
[2024-09-29 22:06] LABS: C Reactive Protein 0.63 mg/dl (0-0.5)
[2024-09-30] MEDS: MELATONIN 3 MG TAB PO PRN (00:43)
[2024-09-30] MEDS: ACETAMINOPHEN 325 MG TAB PO PRN (00:43)
[2024-09-30] MEDS: SODIUM BICARBONATE 650 MG TAB PO SCH (01:06)
[2024-09-30] MEDS: APIXABAN 5 MG TABLET PO SCH (01:07)
[2024-09-30] MEDS: LEVOTHYROXINE SODIUM 50 MCG TABLET PO SCH (05:48)
[2024-09-30 06:33] LABS: Basophils # (auto) 0.03 K/uL (0.00-0.20); Basophils % (auto) 0.5 %; Eosinophils # (auto) 0.32 K/uL (0.00-0.50); Eosinophils % (auto) 5.5 %; Hematocrit (blood only) 33.2 % (42.0-52.0); Hemoglobin 10.6 g/dl (14.0-18.0); Immature Granulocytes # (auto) 0.13 K/uL (0.01-0.20); Immature Granulocytes % (auto) 2.2 %; Lymphocytes # (auto) 0.91 K/uL (1.20-3.40); Lymphocytes % (auto) 15.6 %; Mean Corpuscular Hemoglobin 34.1 pg (25.0-34.0); Mean Corpuscular Hgb Conc 31.9 g/dL (32.0-36.0); Mean Corpuscular Volume 106.8 fL (80.0-100.0); Mean Platelet Volume 12.6 fL (9.4-12.4); Monocytes # (auto) 0.35 K/uL (0.11-0.59); Neutrophils # (auto) 4.11 K/uL (1.40-6.50); Neutrophils % (auto) 70.2 %; Platelet Count 104 K/uL (130-400); RDW Coefficient of Variation 15.3 % (11.5-14.5); RDW Standard Deviation 60.5 fL (36.4-46.3); Red Blood Count 3.11 M/uL (4.70-6.10); White Blood Count 5.85 K/ul (4.8-10.8)
[2024-09-30 07:08] LABS: BUN Creatinine Ratio 18.2 (10-20); Calcium 8.9 mg/dl (8.6-10.3); Creatinine Clr Calc Pharmacy 19.5 ml/min; Magnesium 1.7 mg/dl (1.7-2.4); Potassium 3.9 mmol/L (3.5-5.1)
--- NOTE | 2024-09-30 07:21 | Electrocardiogram Report ---
Test Reason : Blood Pressure : */* mmHG Vent. Rate : 62 BPM Atrial Rate : 62 BPM P-R Int : 186 ms QRS Dur : 74 ms QT Int : 406 ms P-R-T Axes : 49 -15 7 degrees QTcB Int : 412 ms Normal sinus rhythm No previous ECGs available Confirmed by Benny Gutierrez ([id number]) on 09/30/2024 7:21:02 AM Referred By: REFERRED SELF Confirmed By: Benny Gutierrez
[2024-09-30] MEDS: POLYETHYLENE (MIRALAX) 17 GM PACK PO PRN (08:05)
[2024-09-30] MEDS: UMECLIDINIUM/VILANTEROL 62.5/25MCG 7 PUFFS/INHALER INH SCH (08:06)
[2024-09-30] MEDS: ADVANCED PROBIOTIC 625 MG CAPSULE PO SCH (08:06)
[2024-09-30] MEDS: CALCITRIOL 0.25 MCG CAPSULE PO SCH (08:06)
[2024-09-30] MEDS: allopurinoL 100 MG TAB PO SCH (08:06)
[2024-09-30] MEDS: PANTOprazole 40 MG TAB PO SCH (08:07)
[2024-09-30] MEDS: FOLIC ACID 1 MG TAB PO SCH (08:07)
[2024-09-30] MEDS: ATORVASTATIN 20 MG TAB PO SCH (08:07)
[2024-09-30] MEDS: METOPROLOL SUCC 25MG EXT REL TAB PO SCH (08:07)
--- NOTE | 2024-09-30 09:15 | Orthopedic Consultation ---
Date of Consultation September 30, 2024 Assessment & Plan (1) Open wound of lumbar region: At this time I am awaiting imaging that was performed last week at [facility]. It was to be sent over to our hospital for review. Is not available. He does have a CAT scan available from early September available for review. This demonstrate instrumented fusion L2-L5. I have emphasized the patient that he is quite thin and the prominence of the L1 spinous process is probably etiology of his issues. We may need to consider partial resection and debridement. He understands agrees. History of Present Illness Reason for Consultation: Lumbar spine drainage Attending Physician: Dinesh Cummings MD History of Present Illness Patient is admitted for lumbar pain and drainage. He has recently had neck resection with skin grafts approximately 6 weeks ago. He states his pain is controlled at this time. Denies any pain numbness or tingling to lower extremities. Denies any recent trauma fall or event. Allergies Allergy/AdvReac Type Severity Reaction Status Date / Time chlorhexidine Allergy Severe Verified 03/16/24 09:47 aztreonam Allergy hives Verified 03/16/24 09:47 Cephalosporins AdvReac Unknown UPSET Verified 03/16/24 09:47 STOMACH ciprofloxacin AdvReac Unknown DIARRHEA Verified 03/16/24 09:47 Iodinated Contrast Media AdvReac Unknown Verified 03/16/24 09:47 levofloxacin AdvReac Unknown Verified 03/16/24 09:47 Home Medications Medication Instructions Recorded Confirmed Type acetaminophen 325 mg tablet 325 mg PO QID PRN Pain (Scale 10/15/21 09/29/24 History (Tylenol) Score 1-3) albuterol sulfate 1.25 mg/3 mL 1.25 mg inhalation BID PRN sob 10/15/21 09/29/24 History solution for nebulization apixaban 5 mg tablet (Eliquis) 5 mg PO BID 10/15/21 09/29/24 History levothyroxine 50 mcg tablet 50 mcg PO DAILY 10/15/21 09/29/24 History metoprolol succinate 25 mg 25 mg PO DAILY 10/15/21 09/29/24 History tablet,extended release 24 hr omeprazole 20 mg capsule,delayed 20 mg PO DAILY 10/15/21 09/29/24 History release atorvastatin 20 mg tablet 20 mg PO DAILY 03/19/22 09/29/24 History syringe with needle, safety 3 mL #100 ea 04/13/23 09/29/24 Rx 21 gauge x 1" (Monoject Safety Syringes) allopurinol 100 mg tablet 200 mg PO DAILY 03/16/24 09/29/24 History calcitriol 0.25 mcg capsule 0.25 mcg PO DAILY #30 caps 03/16/24 09/29/24 Rx testosterone cypionate 100 mg/mL 75 mg (0.75 mL) subcut Q7D #10 mL 05/31/24 09/29/24 Rx intramuscular oil folic acid 1 mg tablet 1 mg PO DAILY 09/29/24 09/29/24 History furosemide 20 mg tablet 20 mg PO DAILY PRN Edema 09/29/24 09/29/24 History oxycodone 5 mg tablet 5 mg PO Q6H PRN Moderate Pain 09/29/24 09/29/24 History (Scale Score 5-6) sodium bicarbonate 650 mg tablet 650 mg PO AMHS 09/29/24 09/29/24 History umeclidinium 62.5 mcg-vilanterol 1 inh inhalation DAILY 09/29/24 09/29/24 History 25 mcg/actuation powdr for inhalation Patient History Medical History Gynecomastia Hemorrhoids Diverticulosis H/O acute pancreatitis Paroxysmal A-fib Hyperglobulinemia hx of HLD (hyperlipidemia) Hypertension Herpes simplex infection crusted, involving lips and right nares Multiple bruises Generalized weakness Hypothyroid Peripheral edema Peripheral edema Pneumonia positive for rhinovius and aspergillosis Diastolic CHF Diabetes CKD (chronic kidney disease), stage IV Erythema nodosum ANCA positive, on chronic prednisone Surgical History History of cataract surgery History of back surgery H/O lymph node biopsy possible sarcoid History of bronchoscopy H/O left inguinal hernia repair Family History Mother Stroke Myocardial infarction Father Heart disease Social History Smoking Status: Former smoker Smoking End Date: "early "; Hx Alcohol Use: Yes Alcohol type: beer Alcohol Intake Frequency: 2-3 x/Week Hx Substance Use: No (has RX for oxycodone but rarely uses it) Preferred Language: Jamaican Communication Ability: Effective Home Health Caregiver Required: No Beliefs That Will Affect Care: None Current Living Situation: Spouse Other Information That Helps Us Care for You: No Feels Safe at Home: Yes Safety Concerns: Feels Safe At This Time Assistive Devices: Cane Physical Exam Physical Exam: Patient is in bed. He appears calm at this time. He has excellent strength testing lower extremities. Sensory is intact. He has dressing on the left upper thigh from skin graft donor site. He is able to sit up without difficulty. There is a palpable mass at the thoracolumbar junction consistent with an L1 spinous process. Dressings in place. No gross drainage at this time. Results & Data Vital Signs (Past 12 Hours) Vital Signs Temp Pulse Pulse Pulse Resp BP BP 09/30/24 07:44 36.6 C 64 20 128/65 09/30/24 07:15 09/30/24 07:04 64 09/30/24 03:40 36.8 C 71 16 114/64 09/29/24 23:24 75 09/29/24 23:20 36.6 C 95 H 18 09/29/24 22:32 36.7 C 69 164/89 H 09/29/24 22:15 62 16 167/94 H 09/29/24 22:00 66 19 154/81 H 09/29/24 21:45 62 19 142/79 H 09/29/24 21:30 158/84 H 09/29/24 21:15 62 17 BP Pulse Ox O2 Del Method 09/30/24 07:44 97 Room Air 09/30/24 07:15 Room Air 09/30/24 07:04 09/30/24 03:40 96 Room Air 09/29/24 23:24 09/29/24 23:20 173/96 H 94 Room Air 09/29/24 22:32 98 Room Air 09/29/24 22:15 98 09/29/24 22:00 98 09/29/24 21:45 100 09/29/24 21:30 09/29/24 21:15 148/78 H 98 Room Air
--- NOTE | 2024-09-30 09:32 | Hospitalist Progress Note ---
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 Lumbar Spine MRI: IMPRESSION1. L2-L5 instrumented fusion and L2-L4 laminectomies.2. Severe L5-S1 distal junctional thecal sac stenosis.3. Dorsal subcutaneous fat stranding and swelling with a shallow sinus tract. Artifact limiting assessment of sinus tract depth with accuracy. L1 spinous process signal abnormality with new erosion involving the tip of L1 spinous process. The differential includes reactive osteitis and/or osteomyelitis. Sinus wound in Lumbar region Hx of Lumbar spine surgery Patient is referred for admission due to MRI lumbar spine findings as outpatient. Lumbar spine MRI as above No leukocytosis present ESR slightly elevated to 21, CRP slightly elevated to 0.63. Evaluated by orthospine; prominence of L1 spinous processes likely etiology of the findings; partial resection and debridement to be considered after reviewing the images. Superficial cultureno organisms seen Blood culturepending Continue on current antibiotics with vancomycin/Rocephin. Discussed with radiology department to obtain the images; PAF: chronic, stable, continue metoprolol and eliquis for now, if going to require surgical procedure will need to determine timing of hold eliquis Chronic HFpEF HTN/HLD chronic, stable, continue home meds daily weights, hypervolemic on exam, on prn lasix, monitor I and O CKD-4 baseline cr 2.7-3, follows Dr. Gunn, hx of LIZZ in past after nephrotoxic agents, avoid, monitor renal fxn daily, hx of requiring HD in the past COPD: chronic, stable, continue inhaler Chronic gout: continue allopurinol SCC of left neck cutaneous tissue s/p dissection requiring reconstruction and flap procedure in August in [place] currently to undergo adjuvant radiation at [facility] DVT ppx: Tello FULL CODE PCP: Poli Dispo: admit to med tele Time spent evaluating patient, direct bedside care, chart review, placing orders, interpretation of diagnostic studies, discussion with consultants, olaf tovar, and family members, as well as other required patient management activities is 50 minutes Please note the above document was generated using voice recognition software. It may contain grammatical, syntax or spelling errors. Any formal questions or concerns about the content, text or information contained within the body of this dictation should be directly addressed to the provider for clarification Admission and Anticipated Discharge Date Admission Date: September 29, 2024 Subjective Patient seen and examined at bedside. Comfortable; not in distress. Denies fever, chills, chest pain, shortness of breath, abdominal pain or urinary symptoms. No significant overnight events Review of Systems Review of Systems: All systems reviewed & are unremarkable except as noted in Subjective Physical Exam Physical Exam: Constitutional: Alert oriented x 3; not in distress. Respiratory: Bilateral vesicular breath sound. Cardiovascular: RRR, no murmur, no edema Vessels: no JVD or carotid bruit Chest: normal inspection of chest Abdomen: normal bowel sounds, soft, nontender, no hepatosplenomegaly Musculoskeletal: Small lump involving the upper lumbar region with Sinus track; minimal drainage noted.Dressing over left thigh present from where his skin graft was taken; minimal soakage. Neurologic: PERRL, EOMI, accommodation nl, no face palsy, no dysarthria CN's II- XI intact bilaterally and moves all extremities Psychiatric: A+Ox3, euthymic affect Results & Data Results & Data Vital Signs (Past 12 Hours) Vital Signs Temp Pulse Pulse Resp BP BP BP 09/30/24 07:44 36.6 C 64 20 128/65 09/30/24 07:15 09/30/24 07:04 64 09/30/24 03:40 36.8 C 71 16 114/64 09/29/24 23:24 75 09/29/24 23:20 36.6 C 95 H 18 173/96 H 09/29/24 22:32 36.7 C 69 164/89 H 09/29/24 22:15 62 16 167/94 H 09/29/24 22:00 66 19 154/81 H 09/29/24 21:45 62 19 142/79 H 09/29/24 21:30 158/84 H Pulse Ox O2 Del Method 09/30/24 07:44 97 Room Air 09/30/24 07:15 Room Air 09/30/24 07:04 09/30/24 03:40 96 Room Air 09/29/24 23:24 09/29/24 23:20 94 Room Air 09/29/24 22:32 98 Room Air 09/29/24 22:15 98 09/29/24 22:00 98 09/29/24 21:45 100 09/29/24 21:30
[2024-09-30] MEDS: cefTRIAXone SODIUM 1,000 MG/50 ML BAG IV SCH (11:20)
[2024-09-30] MEDS: MUPIROCIN 2% OINT 22 GM TUBE EXT ONE (13:31)
[2024-09-30] MEDS: DAPTOmycin 300 MG in SYRINGE 0 ML IV SCH (13:31)
[2024-09-30] MEDS: 4.5GM X1 IV ONE (17:12)
[2024-09-30] MEDS: ACETAMINOPHEN 500 MG TAB PO ONE (17:50)
--- OUTSIDE RECORDS SUMMARY | 2024-09-30 18:00 | External Medical Summary | Summary of Care ---
Author Name Unknown Organization [facility] Address [address] [place] [address] Phone [phone] Care Team Providers Care Plan Examiner Name Role Phone Fuentes Ashton MD Primary Care Provider [phone] Encounter Details Date Type Department Care Team (Late st Contact Info) Description 09/29/2024 Orders Only Radiation Oncology, [facility] [address] [place] [address] IovoliMansoor MD [address] [place] [address] Allergies Active Allergy Reactions Criticality Noted Date Comments Aztreonam Hives Medium 10/11/2019 Cephalosporins Rash 05/24/2017 Tolerated cefazolin during August 2024 admission Chlorhexidine Hives,Rash High 01/02/2022 Full body red rash; "skin peeled completely off" Ciprofloxacin Diarrhea Medium 01/28/2015 Iodinated Contrast Media Abdominal pain High 019 Acute kidney failure Levofloxacin Rash Low 07/28/2019 documented as of this encounter (statuses as of 09/29/2024) Medications Apixaban 5 MG Oral Tablet (Eliquis)Indicati ons:Paroxysmal atrial fibrillation (HCC) Take by mouth 1 Tablet in the morning AND 1 Tablet before bedtime. 60 Tablet 01/05/20 Active Tylenol 325 MG Oral Capsule (Acetaminophen) Take by mouth 2 Tablets every 6 hours as needed for Pain, Mild or Other (Fever, Headache). 90 Capsule 01/05/20 22 Active Levothyroxine Sodium 50 MCG Oral Tablet (Levoxyl)Indicati ons:Acquired hypothyroidism (at least 30 min prior to breakfast or other meds)take 1 tablet by mouth once daily AT LEAST 30 MINUTES PRIOR TO BREAKFAST OR OTHER MEDS 30 Tablet 01/05/20 22 Active Omeprazole 20 MG Oral Capsule Delayed Release (PriLOSEC)Indicat ions:Gastroesopha geal reflux disease without esophagitis,FCI (current) use 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 Take by mouth 1 Capsule in the morning. 30 minutes before a meal. 30 Capsule 01/05/20 22 Active Metoprolol Succinate ER 25 MG Oral Tablet Extended Release 24 Hour (Toprol XL) Take 1 Tablet by mouth in the morning. 15 Tablet 09/14/20 23 Active Testosterone Cypionate 100 MG/ML Intramuscular Solution inject 0.75 milliliter intramuscularly every 7 days 09/16/20 23 Active Umeclidinium-Ayah nterol 62.5-25 MCG/ACT Inhalation Aerosol Powder Breath Activated (ANORO ellipta)Indicatio ns:COPD, moderate (HCC) Inhale 1 Puff by mouth in the morning. 180 Each 3 4 1:11 PM EST 01/28/20 24 Active Furosemide 20 MG Oral Tablet (Lasix)Indication s:Bilateral lower extremity edema Take 1 Tablet by mouth daily as needed (lower extremity edema). 30 Tablet 11 4 11:55 AM EDT 03/31/20 24 Active Sodium Bicarbonate 650 MG Oral Tablet Take 1 Tablet by mouth in the morning and 1 Tablet before bedtime. 180 Tablet 3 4 6:28 PM EDT 04/19/20 24 Active predniSONE 5 MG Oral Tablet (Deltasone)Indica tions:Erythema nodosum Take 1.5 Tablets by mouth in the morning. 135 Tablet 4 4 10:49 AM EDT 05/03/20 24 Active Calcitriol 0.25 MCG Oral Capsule (Rocaltrol)Indica tions:Renal osteodystrophy Take 1 Capsule by mouth in the morning. 30 Capsule 5 05/23/20 24 Active Albuterol Sulfate 108 (90 Base) MCG/ACT Inhalation Aerosol Powder Breath ActivatedIndicati ons:COPD, moderate (HCC) Inhale 2 Puffs by mouth every 4 hours as needed for Shortness of Breath. 1 Each 11 07/06/20 24 Active Additional Information Patient not taking.Reported on 09/29/2024 Albuterol Sulfate (2.5 MG/3ML) 0.083% Inhalation Nebulization Solution (Proventil)Indica tions:COPD, group C, by GOLD 2017 classification ([facility]) Inhale 1 Vial via nebulizer every 4 hours as needed for Shortness of Breath or Wheezing. 360 mL 11 07/06/20 24 Active Additional Information Patient not taking.Reported on 09/29/2024 Allopurinol 100 MG Oral Tablet (Zyloprim) Take 2 Tablets by mouth in the morning. 180 Tablet 4 4 10:01 AM EDT 07/17/20 24 Active Econazole Nitrate 1 % External Cream (Spectazole)Indic ations:Rash and nonspecific skin eruption Apply to affected area on buttock, back and legs twice a day for 6 weeks 170 g 3 07/24/20 24 Active Zinc Oxide 40 % External Paste (Desitin)Indicati ons:Pressure injury of left buttock, stage 1 Apply to buttocks as needed. 57 g 08/25/20 24 Active Atorvastatin Calcium 20 MG Oral Tablet (Lipitor)Indicati ons:Dyslipidemia, goal LDL below 70 Take 1 Tablet by mouth at bedtime. 90 Tablet 1 4 8:06 AM EDT 09/04/20 24 Active oxyCODONE HCl 5 MG Oral Tablet (Oxy IR) Take 1 tablet by mouth every 4 hours as needed for severe breakthrough pain. 25 Tablet 4 4:14 PM EST 09/15/20 24 Active Sodium Fluoride 1.1 % Dental Cream (Denta 5000 Plus) Use as toothpaste twice daily. 153 g 5 09/15/20 24 Active Sodium Fluoride 1.1 % Dental Gel (PreviDent) After brushing and flossing, place a strip of fluoride inside tray and place tray inside mouth for 20 minutes. Do not eat/drink for 1 hour. 100 mL 12 09/15/20 24 Active Vitamin B-12 1000 MCG Oral Tablet (Cyanocobalamin)I ndications:SCC (squamous cell carcinoma) Take 1 Tablet by mouth in the morning. 90 Tablet 4 12:41 PM EST 09/18/20 24 Active Folic Acid 1 MG Oral TabletIndications :SCC (squamous cell carcinoma) Take 1 Tablet by mouth in the morning. 90 Tablet 12:41 PM EST 09/18/20 Active Hospital, Clinic, or Other Facility Administered Medication Ordered Dose Route Frequency Start Date End Date Status oxygen GASIndications:Iron deficiency anemia, unspecified iron deficiency anemia type IN OXYGEN 08/28/2024 Active documented as of this encounter (statuses as of 09/29/2024) Active Problems Problem Noted Date Diagnosed Date Fistula of vertebra 09/29/2024 Assessment & Plan (09/29/2024 10:58 AM EST): MRI for clarification Skin ulcer 09/29/2024 Assessment & Plan (09/29/2024 10:59 AM EST): Open wound seeping serous fluid. CT scan was not definitive enough to establish how far the fistula was tracking. After personally reviewing the films I do have concern that this could be tracking all the way to the spinal column and this could be cerebral spinal fluid. Patient is not having any neurologic symptoms which is reassuring and this has been going on for awhile without complication. We will order MRI to clarify. Patient has follow up with both spine surgery and Wound Care in 4 days. I would hesitate to pack the wound until either an MRI is obtained or spinal surgery can give their opinion. 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 07/17/2024 COPD, group B, by GOLD 2017 classification 04/17 Overview: Per COPD GOLD Classification 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 4 chronic kidney disease 03/27/2024 Iron deficiency anemia 02/29/2024 Chronic heart failure with p reserved ejection fraction (HFpEF) 02/23/2024 History of sepsis 09/20/2023 Atherosclerosis of renal artery 02/01/2023 Chronic intestinal vascular insufficiency 2022 Hypertensive heart disease w ith heart failure and stage 4 chronic kidney disease 02/02/2022 Hypogonadism in male 12/01/2021 Telangiectasias 03/03/2021 COPD, moderate 01/06/2021 Overview: Per COPD GOLD Classification Gynecomastia 01/06/2021 Overview (08/16/2024): Jul 24, 2021 Entered By: DONNA CAREY MD Comment: Ultrasound L breast [facility] 01/06/2021 Atherosclerosis of abdominal aorta 06/21/2020 Overview (06/21/2020): CT Abd/pelvis from 2018 Atherosclerotic heart diseas e of [place] coronary artery without angina pectoris 05/31/2020 Nuclear senile cataract 04/26/2020 Posterior subcapsular polar senile cataract 04/08 CKD (chronic kidney disease) stage 4, GFR 15-29 ml/min 07/17/2019 Chronic anticoagulation 04/03/2019 Vitamin D deficiency 11/17/2018 Age-related osteoporosis wit hout current pathological fracture 09/06/2018 Compression fracture of L2 vertebra with routine healing 08/17/2018 Paroxysmal atrial fibrillation 07/08/2018 Assessment & Plan (02/06/2022 11:42 AM EDT): Rate controlled on metoprolol Continue apixaban History of acute tubular necrosis 06/29/2018 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 IPMN (intraductal papillary mucinous neoplasm) 0 03/09/2018 Overview (03/09/2018): 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 Steroid-induced diabetes 02/26/2018 Spondylolisthesis of lumbar region 02/22/2018 Lumbar stenosis with neurogenic claudication Spinal stenosis of lumbar re gion with neurogenic claudication 02/05/2018 Mediastinal lymphadenopathy 10/19/2017 Overview (10/19/2017): CT 07/2017 Acquired hypothyroidism 10/09/2017 Erythema nodosum 09/28/2017 Assessment & Plan (02/06/2022 11:46 AM EDT): Followed by rheumatology On prednisone 7.5mg daily Dyslipidemia, goal LDL below 70 01/21/2015 HTN, goal below 140/90 10/18/2014 Essential hypertension 03/12/2014 Overview (08/09/2017): ICD-10 update of inactive term Gastroesophageal reflux disease without esophagi tis 03/12/2014 documented as of this encounter (statuses as of 09/29/2024) Resolved Problems Problem Noted Date Diagnosed Date Resolved Date 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 4 chronic kidney disease 03/27/202409/29 Hypocalcemia 03/19/2024 09/29/2024 Acute respiratory failure with hypoxia 03/03/2024 03/03/2024 Fever 02/27/2024 03/03/2024 Acute gout of multiple sites 02/27/2024 03/03/2024 Cat bite 02/19/2024 09/29/2024 Type 2 diabetes mellitus without complication 02/07/20 24 02/07/2024 Heart failure 01/05/2024 09/29/2024 Hospital discharge follow-up 09/20/2023 03/03/2024 Scrotal irritation 09/12/2023 Bilateral cellulitis of lower leg 09/12/2023 03/03/2024 Acute on chronic anemia 09/11/2023 04/2 04/2024 Cellulitis 09/09/2023 03/03/2024 Encephalopathy acute 09/09/2023 023 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 08/03/2023 08/03/2023 Atherosclerosis of [place] co ronary artery without angina pectoris 02/01/2023 05/18/2023 COPD, group D, by GOLD 2017 classification 10/19/2022 01/05/2024 Overview: Per COPD GOLD Classification Stage II pressure ulcer of left buttock 02/06/2022 07/19/2023 Assessment & Plan (02/06/2022 11:53 AM EDT): Offload pressure, reports improving. Home health monitoring. Calmoseptine to area daily and prn COPD, group C, by GOLD 2017 classification 01/19/2022 10/22/2022 Overview (02/06/2022): Per COPD GOLD Classification BMI 24. Flow loops obstructed. Spirometry is normal. There is no significant bronchodilator response. No prior PFT to compare.This interpretation has been electronically signed: Franco Hamilton 08/15/2020 05:46:38 PM Specimen Collected: 08/12/20 09:23 Last Resulted: 08/12/20 09:23 Assessment & Plan (02/06/2022 11:37 AM EDT): Stable Continue advair Using neb twice daily Acute renal failure superimp osed on chronic kidney disease 12/16/2021 02/02/2022 Acute respiratory failure with hypoxia 12/16/2021 02/06/2022 Multifocal pneumonia 12/16/2021 022 Hyperkalemia 12/16/2021 07/19/2023 Sepsis 12/16/2021 03/24/2024 Overview (03/24/2024): acute Acute dermatitis 05/08/2021 09/29/2024 Diet-controlled diabetes mellitus 03/03/2021 05/19/2023 Moderate protein-calorie malnutrition 01/06/2021 07/19/2023 Pulmonary hypertension, unspecified 01/06/2021 12/01/2021 Type 2 diabetes mellitus wit h stage 4 chronic kidney disease, without long-term current use of insulin 06/21/2020 01/05/2024 Hyperparathyroidism, secondary renal 05/31/2020 01/05/2024 Fever of unknown origin 10/03/2019 12/0 03/2019 Cachexia 08/30/2019 05/31/2020 Hypertensive heart disease w ith heart failure and stage 5 chronic kidney disease, not on chronic dialysis 08/22/2019 10/09/2019 Overview (10/09/2019): ckd 4 ? Bilateral pneumonia 08/08/2019 09/19/20 19 Overview (09/19/2019): Acute, resolved? 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 01/06/2021 Aspergillosis 07/17/2019 01/08/2021 Overview (01/08/2021): history of Aspergillosis on the note on 3.[address] and AMP Hypertensive heart disease w ith heart failure and stage 3 chronic kidney disease 06/23/201907/17 Dialysis patient 06/23/2019 07/20/2019 Protein-calorie malnutrition 06/23/2019 03/03/2021 Heart failure with acute dec ompensation, type unknown 06/07/2019 08/30/2019 Community acquired pneumonia 05/30/2019 06/24/2019 Acute respiratory failure with hypoxia 04/03/2019 04/07/2019 Rhinovirus 04/03/2019 04/07/2019 Acute kidney injury superimposed on CKD 04/03/2019 03/03/2024 Hypertensive kidney disease with chronic kidney disease stage III 03/07/2019 07/17/2019 Drug/chem diabetes w diabeti c chronic kidney disease 03/07/2019 07/17/2019 Encounter for long-term (cur rent) use of medications 09/06/2018 11/22/2018 Kidney disease, chronic, sta ge III (GFR 30-59 ml/min) 07/29/2018 07/17/2019 Anemia in stage 3 chronic kidney disease 07/29/2018 07/17/2019 LIZZ (acute kidney injury) 06/26/2018 History of respiratory failure 06/26/2018 02/06/2022 Small vessel vasculitis 06/26/2018 0807/2018 Acute hemodialysis patient 06/26/2018 0 07/29/2018 Septic shock 06/23/2018 09/14/2023 History of pneumonia 06/22/2018 019 Overview (07/06/2018): B/l PNA 06/2018 Acute pancreatitis 03/09/2018 8 Severe malnutrition 02/27/2018 11/22/19 19 Type 2 diabetes, HbA1c goal < 7% 02/26/2018 06/24/2019 Type 1 diabetes mellitus wit h ketoacidosis without coma 02/26/2018 03/09/2018 Polydipsia 02/26/2018 03/09/2018 Polyuria 02/26/2018 04/14/2018 Enteritis 10/09/2017 04/14/2018 Tinea cruris 09/28/2017 11/22/2018 Pharyngoesophageal dysphagia 08/05/2017 09/28/2017 Myalgia 11/19/2016 04/29/2017 Erythema nodosum 10/19/2016 04/29/2017 Claudication of both lower extremities 08/27/2016 10/22/2017 Overview (10/19/2017): JUAN from 2016 show no evidence of PVD. Screen for colon cancer 09/05/201504/09 Overview (09/05/2015): Colonoscopy 09/04/2015: hemorrhoids only - 5yr Abdominal aortic aneurysm (A AA) without rupture 07/11/2015 07/19/2023 Overview (09/01/2016): 09/01/16: 3.78cm - repeat 1 yr 01/27/16: US: 3.87cm AAA - repeat 6 months 07/11/15: sts he had an US in the past - will check records Rash and nonspecific skin eruption 07/11/2015 01/21/2016 Pure hypercholesterolemia 03/12/2014 ATN (acute tubular necrosis) 2019 LIZZ (acute kidney injury) documented as of this encounter (statuses as of 09/29/2024) Immunizations Name Administration Dates Next Due COVID-19 mRNA, LNP-s, No Pre serve, 2-Dose Series ([employer]) 08/15/2021,01/31/2021,01/03/2021 COVID-19, LNP-s, No Preserve , Ruslan-sucrose, Ages 12+ (Pfizer) 03/19/2022 COVID-19, MRNA-LNP, PF, 30 M CG/0.3 mL, 12 YRS AND ABOVE, IM ([facility]) 09/29/2024,10/25/2023 Covid-19, Mrna, Lnp-s, Pf, B ivalent, 30 Mcg, IM, 12 yrs and above (Pfizer) 2022 Pneumococcal Conjugate Vacc, 13 Valent (Prevnar) 01/21/2016 Pneumococcal Conjugate Vacci ne, 20-valent ([id number]) 07/19/2023 Pneumococcal Polysaccharide PPV23 (Pneumovax) 01/13/2011 RSV Vac., Bivalent, Perfusio n F, Pf,0.5 Ml (Abrysvo) 09/28/2023 Season Influenza, Quad, PF, Adjuvanted, 65+ Yrs, IM (FLUAD) 08/26/2020 Seasonal Influenza Vac., MDV , IM, 0.5 mL (Fluzone) 07/11/2015,10/18/2014 Seasonal Influenza, High Dos e, Trivalent, PF, IM (Fluzone HD) 09/05/2024 Seasonal Influenza, PF, 6 M & above, IM , (FluLaval or Fluzone) 09/21/2018,09/28/2017 Seasonal Influenza, Quadriva lent Hd (Fluzone Hd) 08/30/2023,09/01/2021 Seasonal Influenza, Quadriva lent, No Preserve, IM 08/27/2016 Seasonal Influenza, Trivalen t, Adjuvanted, 65+ YRS, PF, (Fluad) 09/23/2022,07/19/2019 TDAP (age 10 and older)(Boostrix) 04/23/2023 TDAP, Age 7 and older, IM (Adacel) 03/23/2013, Zoster Vaccine Recombinant (Shingrix) 05/05/2021 ,03/03/2021 documented as of this encounter Social History Tobacco Use Types Packs/Day Years Used Date Smoking Tobacco: Former Cigarettes 1 1 1 965 - 1965 Smokeless Tobacco: Never Comments:quit smoking in the 1959 Alcohol Use Standard Drinks/Week Comments Yes 0 (1 standard drink = 0.6 oz pur e alcohol) occasional AUDIT-C Answer Date Recorded Frequency of Alcohol Consumption Never 10/12/2018 Average Number of Drinks Not on file 018 Frequency of Binge Drinking Not on file 03/2018 PHQ-2 Answer Date Recorded PHQ Adult Total Score 0 08/23/2024 Hunger Vital Sign Answer Date Recorded Within the past 12 months, y ou worried that your food would run out before you got the money to buy more. Never true 08/23/20 24 Within the past 12 months, t he food you bought just didn't last and you didn't have money to get more. Never true 08/23/2024 Childcare Answer Date Recorded Do you feel overwhelmed with taking care of a child, family member or friend? No 08/23/2024 Does your family need help f inding childcare? (Household - for ages 0-17 years) Not on file 08/23/2024 Clothing Answer Date Recorded Have you been unable to get clothing when it was really needed? No 08/23/2024 Is your family able to get c lothes or diapers when needed? (Household - for ages 0-17 years) Not on file 08/23/2024 Personal Safety Answer Date Recorded Do you feel unsafe or have concerns for your saf ety? No 08/23/2024 Do you have concerns for you r family's safety? (Household - for ages 0-17 years) Not on file 08/23/2024 Utilities Answer Date Recorded Do you have trouble paying y our heating, water, or electric bill? No 08/23/2024 Is your family able to pay t he heat, water, or electric bill? (Household - for ages 0-17 years) Not on file 08/23/2024 Does your family have access to good internet? (Household - for ages 0-17 years) Not on file 08/23/2024 Employment Status Answer Date Recorded Are you unemployed or without regular income? No 08/23/2024 Does the household have a re lar source of income? (Household - for ages 0-17 years) Not on file 08/23/2024 Social Connections Answer Date Recorded How often do you feel lonely or isolated from th ose around you? Never 08/23/2024 Financial Resource Strain Answer Date R ecorded Do you have any trouble payi ng for your medications, or do you think you might in the future? No 08/23/2024 Does your family have troubl e paying for medicine? (Household - for ages 0-17 years) Not on file 08/23/2024 Transportation Needs Answer Date Record ed READ ONLY Do you have troubl e getting a ride to medical visits or work? Never True 08/23/2024 Does your family have a hard time getting a ride to doctors visits? (Household - for ages 0-17 years) Not on file 08/23/2024 Has lack of transportation k ept you from medical appointments, meetings, work, or from getting things needed for daily living? Check all that apply. No 08/23/2024 Do you (or your family) have trouble finding or paying for a ride (transportation)? (Household - for ages 0-17 years) Not on file 08/23/2024 Housing Stability Answer Date Recorded Do you currently live in a s helter or have no steady place to sleep at night? No 08/23/2024 READ ONLY Do you think you a re at risk of becoming homeless? No 08/23/2024 Does your family worry about paying for your home or becoming homeless? (Household - for ages 0-17 years) Not on file 1 Are you homeless or worried that you might be in the future? No 08/23/2024 Are you (or your family) spencer eless or worried that you might be in the future? (Household - for ages 0-17 years) Not on file Food Insecurity Answer Date Recorded Do you need food for this week? No 08/23/2024 Are you able to get enough f ood for your family? (Household - for ages 0-17 years) Not on file 08/23/2024 Does your family need food t his week? (Household - for ages 0-17 years) Not on file 08/23/2024 Do you always have enough fo od for your family? 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 Answer Date of Assessment Author No 08/11/2024 8:15 AM Joseluis Brothers RN * Are you blind or do you have serious difficulty seeing, even when wearing glasses? Answer Date of Assessment Author No 08/11/2024 8:15 AM Joseluis Brothers RN * Do you have serious difficulty walking or climbing stairs? (5 years old or older) Answer Date of Assessment Author No 08/11/2024 8:15 AM Joseluis Brothers RN * Do you have difficulty dressing or bathing? (5 years old or older) Answer Date of Assessment Author No 08/11/2024 8:15 AM Joseluis Brothers RN * Because of a physical, mental, or emotional condition, do you have difficulty doing errands alone such as visiting a doctors office or shopping? (15 years old or older) Answer Date of Assessment Author No 08/11/2024 8:15 AM Joseluis Brothers RN documented as of this encounter Mental Status * Because of a physical, mental, or emotional condition, do you have serious difficulty concentrating, remembering, or making decisions? (5 years old or older) Answer Entry Date Author No 08/11/2024 8:15 AM Joseluis Brothers RN documented in this encounter Plan of Treatment Upcoming Encounters Date Type Department Care Team (Late st Contact Info) Description 10/02/2024 1:15 PM EST Treatment Radiation Oncology, [address] [address] 10/03/2024 10:00 AM EST Office [address] [address] Vickey Woodruff MD [address] [place], [place] [address] [address] 10/03/2024 1:15 PM EST Treatment Radiation Oncology, [address] [place] [address] 10/04/2024 1:15 PM EST Treatment Radiation Oncology, [address] [place] [address] 10/06/2024 1:15 PM EST Treatment Radiation Oncology, [address] [place] [address] 10/09/2024 1:15 PM EST Treatment Radiation Oncology, [address] [place] [address] 10/10/2024 1:15 PM EST Treatment Radiation Oncology, [address] [place] [address] 10/11/2024 1:15 PM EST Treatment Radiation Oncology, [address] [place] [address] 10/12/2024 1:15 PM EST Treatment Radiation Oncology, [address] [place] [address] 10/13/2024 1:15 PM EST Treatment Radiation Oncology, [address] [place] [address] 10/16/2024 1:15 PM EST Treatment Radiation Oncology, [address] [place] [address] 10/17/2024 1:15 PM EST Treatment Radiation Oncology, [address] [place] [address] 10/18/2024 1:15 PM EST Treatment Radiation Oncology, [address] [place] [address] 10/19/2024 1:15 PM EST Treatment Radiation Oncology, [address] [place] [address] 10/20/2024 1:15 PM EST Treatment Radiation Oncology, [address] [place] [address] 10/23/2024 1:15 PM EST Treatment Radiation Oncology, [address] [place] [address] 10/24/2024 1:15 PM EST Treatment Radiation Oncology, [place] [address] [place] [address] 10/25/2024 1:15 PM EST Treatment Radiation Oncology, [facility] [address] [place] [address] 2024 1:15 PM EST Treatment Radiation Oncology, [address] [address] 10/27/2024 1:15 PM EST Treatment Radiation Oncology, [address] [address] 10/30/2024 1:15 PM EST Treatment Radiation Oncology, [address] [address] 10/31/2024 1:15 PM EST Treatment Radiation Oncology, [address] [address] 11/14/2024 1:15 PM EST Office Visit MOHS Surgery [facility] [address] [place] [address] Supriya Fernandes MD [address] [place] [address] 11/28/2024 10:45 AM EST Office Visit Otolaryngology/Head & Neck/Facial Plastic Surgery [address] [place] [address] Lexie Aldridge MD [address] [place] [address] 12/21/2024 1:30 PM EST Office Visit Dermatology, Ahmet Rowell [address] [facility] [address] [place] [address] Malaika Guzman PA-C [address] [place] [address] 12/22/2024 12:00 PM EST Office Visit Nephrology, [address] [address] Keisha Gunn MD [address] [place] [address] 01/22/2025 1:30 PM EDT PulmDiagnostic Pulmonary Function Lab [facility] [address] [facility] [place] [address] [address], [address] [place] [address] 01/22/2025 2:00 PM EDT Office Visit Pulmonary Medicine [facility] [address] [facility] [place] [id number] Dominguez Aguilar MD [address] [place] [facility] [place] [address] 01/29/2025 2:00 PM EDT [facility] [address] [facility] [place] [id number] David Antunez MD [address] [facility] [address] 02/05/2025 10:00 AM EDT Office Visit Rheumatology, [address] [place] [address] Rafael Hernandez PAJackiC [address] [facility] [place] [address] 02/06/2025 1:30 PM EDT Office Visit Cardiology, [address] [place] [address] Cherry Warner PA-C [address] [place] [address] [place] [address] Scheduled Procedures Name Priority Associated Diagnoses Date/Ti me COLONOSCOPY FLEXIBLE PROXIMA L DIAGNOSTIC Recall Diverticulosis of sigmoid colon Health Maintenance Due Date Last Done Comments Adult Wellness Visit 03/14/2020 03/14/2019 Diabetic Eye Exam 07/19/2024 07/19/2023, , 04/09/2022, Additional history exists Diabetic Foot Exam 07/19/2024 07/19/2023, 0 06/01/2022, 03/14/2019, Additional history exists HbA1c 08/02/2024 01/31/2024, 1112/2022, 05/18/2023, Additional history exists TSH 01/30/2025 01/31/2024, 01/07, 09/02/2022, Additional history exists GFR 03/26/2025 09/26/2024, 08/09, 08/21/2024, Additional history exists Albumin/Creatinine Ratio 03/27/2025 024, 01/31/2024, 05/18/2023, Additional history exists O2 ASSESSMENT COMPLETED IN PAST YEAR FOR COPD 08/13/2025 08/13/2024 Depression Screening 08/23/2025 08/23/2024, 02/07/20 24 DTap/Tdap Vaccines (4 - Td or Tdap) 04/23/2033 04/23/2023, 03/23/2013, 11/27/2002 Colonoscopy Discontinued 01/05/2018, 12/10, 09/04/2015, Additional history exists RETIRED - COLONOSCOPY-EVERY 5 YRS AGES 18-100 Discontinued 01/05/2018, 01/05/2018, 09/04/2015, Additional history exists Zoster Vaccines Completed 05/05/2021, 05/2021, 03/03/2021 Alpha-1 Antitrypsin Completed 05/19/2021 Pneumococcal Vaccine: 65+ Years Completed 07/19/2023, 01/21/2016, 01/13/2011 Influenza Vaccine (FLU shot) Completed 09/05/2024, 08/30/2023, 09/23/2022, Additional history exists COVID-19 Vaccine Completed 09/29/2024, , 10/25/2023, Additional history exists HPV (Gardasil) Vaccine Aged Out No lo nger eligible based on patient's age to complete this topic Hepatitis B Vaccine Aged Out No longe r eligible based on patient's age to complete this topic MENINGOCOCCAL (MENACTRA/MENVEO) Aged Out No longer eligible based on patient's age to complete this topic documented as of this encounter Medical Devices Implanted 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 Device Identifier Shelf Expiration Date Model / Serial / Lot Mesh Perfix Plug [id number] [id number] - [id number] Implanted:Qty : 1 on 02/07/2019 by Jonathan Correia DO at OR [facility] Right: Groin CR BARD : DAVOL 09/04/2023 [id number] / / [id number] Cytal Wndmtx 1lyr [id number](150 Units) - [id number] - [id number] Implanted:Qty : 1 on 08/10/2024 by Lexie Aldridge MD at OR [facility] Left: Leg Upper [employer] [id number] 10/07/2025 [id number] / [id number] / [id number] Cytal Wndmtx 1lyr 7x10cm (70 Units) - [id number] - [id number] Implanted:Qty : 1 on 08/10/2024 by Lexie Aldridge MD at OR [facility] Left: Leg Upper [employer] [id number] 01/05/2026 [id number] / [id number] / [id number] documented as of this encounter Procedures Procedure Name Priority Date/Time Associated Diagnosis Comments RAD ONC ARIA SESSION SUMMARY Routine 09/29/2024 1:31 PM EST documented in this encounter Results * RAD ONC ARIA SESSION SUMMARY (09/29/2024 1:31 PM EST) Course ID C1 ARIA RADIATION ONCOLOGY Course Intent Post-op ARIA RADIATION ONCOLOGY Course Start Date 09/04/2024 12:46 PM ARIA RADIATION ONCOLOGY RAD ONC ARIA SESSION NUMBER [id number] ARIA RADIATION ONCOLOGY Course First Treatment Date 09/19/2024 1:24 PM ARIA RADIATION ONCOLOGY Course Last Treatment Date 09/29/2024 1:28 PM ARIA RADIATION ONCOLOGY Course Elapsed Days 10 ARIA RADIATION ONCOLOGY Reference Point ID [id number] ARIA RADIATION ONCOLOGY Reference Point Dosage Given to Date 18 Gy ARIA RADIATION ONCOLOGY Reference Point Session Dosage Given 2 Gy ARIA RADIATION ONCOLOGY Plan ID 10-L Neck ARIA RADIATION ONCOLOGY Plan Name 10-L Neck ARIA RADIATION ONCOLOGY Plan Fractions Treated to Date 9 ARIA RADIATION ONCOLOGY Plan Total Fractions Prescribed 30 ARIA RADIATION ONCOLOGY Plan Prescribed Dose Per Fraction 2 Gy ARIA RADIATION ONCOLOGY Plan Total Prescribed Dose 6,000 cGy ARIA RADIATION ONCOLOGY Plan Primary Reference Point [id number] ARIA RADIATION ONCOLOGY 09/29/2024 1:31 PM EST us No Physician Data Unknown DRESSINGS Final Result ARIA RADIATION ONCOLOGY documented in this encounter Advance Directives Documents on File Type Date Recorded 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 Question Answer Comments Discussion of Advance Directives occurred with: Patient * Full Code Date Activated Date Inactivated Comments 08/10/2024 6:07 AM 08/10/2024 3:13 PM This order r eflects the patients wishes and were consensually agreed upon. Question Answer Comments Discussion of Advance Directives occurred with: Patient * Full Code Date Activated Date Inactivated Comments 03/18/2024 11:32 AM 03/23/2024 7:06 PM This order reflects the patients wishes and were consensually agreed upon. Question Answer Comments Discussion of Advance Directives occurred with: Patient Does the patient have a Living Will? No Does the patient have Health Care Power of Attor patricia? No * Full Code Date Activated Date Inactivated Comments 02/27/2024 3:23 PM 02/29/2024 3:46 PM This order r eflects the patients wishes and were consensually agreed upon. Question Answer Comments Discussion of Advance Directives occurred with: Patient * Full Code Date Activated Date Inactivated Comments 02/19/2024 11:28 PM 02/24/2024 3:52 PM This order reflects the patients wishes and were consensually agreed upon. Question Answer Comments Discussion of Advance Directives occurred with: Patient Healthcare Agents on File Name Relationship Healthcare Agent Relationshi p Communication Karen Davis Spouse Health Care Repr esentative (appointed verbally by patient or by statute hierarchy) Lula Colón Adult Child Emergency Contact Care Teams Plan Examiner Relationship Specialty Start Date End Date Fuentes Ashton MD [address] [phone] PCP - General Family Medicine 01/30/22 documented as of this encounter
--- OUTSIDE RECORDS SUMMARY | 2024-09-30 18:00 | External Medical Summary | Summary of Care ---
Author Name Unknown Organization [facility] Address [address] [facility] [address] Phone [phone] Care Team Providers Care Practice Physician Name Role Phone Fuentes Ashton MD Primary Care Provider [phone] Reason for Referral * Precert (Within 24 hrs (call dept; emergent)) - Pending Review Specialty Diagnoses / Procedures Referred By Contac t Referred To Contact Radiology Diagnoses Fistula of vertebra Procedures MRI L SPINE WO CONTRAST MRI L SPINE WO CONTRAST David Antunez MD [address] [facility] [place] [address] Phone: tel: fax: Referral ID Status Reason Start Date Expiration Date V isits Requested Visits Authorized [id number] Pending Review 10/06/2024 999 999 Reason for Visit * Reason Comments Emergency Department Follow-Up Encounter Details Date Type Department Care Team (Late st Contact Info) Description 09/29/2024 10:20 AM EST [facility] [address] [place] [phone] David Antunez MD [address] [place] [phone] Fistula of vertebra*; Need for COVID-19 vaccine; Skin ulcer, unspecified ulcer stage (HCC) Allergies Active Allergy Reactions Criticality Noted Date Comments Aztreonam Hives Medium 10/11/2019 Cephalosporins Rash 05/24/2017 Tolerated cefazolin during August 2024 admission Chlorhexidine Hives,Rash High 01/02/2022 Full body red rash; "skin peeled completely off" Ciprofloxacin Diarrhea Medium 01/28/2015 Iodinated Contrast Media Abdominal pain High Acute kidney failure Levofloxacin Rash Low 07/28/2019 documented as of this encounter (statuses as of 09/29/2024) Medications Apixaban 5 MG Oral Tablet (Eliquis)Indicat ions:Paroxysmal atrial fibrillation (HCC) Take by mouth 1 Tablet in the morning AND 1 Tablet before bedtime. 60 Tablet 022 Active Tylenol 325 MG Oral Capsule (Acetaminophen) Take by mouth 2 Tablets every 6 hours as needed for Pain, Mild or Other (Fever, Headache). 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 30 minutes before a meal. 30 Capsule 022 Active Metoprolol Succinate ER 25 MG Oral Tablet Extended Release 24 Hour (Toprol XL) Take 1 Tablet by mouth in the morning. 15 Tablet 023 Active Testosterone Cypionate 100 MG/ML Intramuscular Solution inject 0.75 milliliter intramuscularly every 7 days 023 Active Umeclidinium-Estuardo anterol 62.5-25 MCG/ACT Inhalation Aerosol Powder Breath Activated (ANORO ellipta)Indicati ons:COPD, moderate (HCC) Inhale 1 Puff by mouth in the morning. 180 Each 3 09/18/20 24 1:11 PM EST 024 Active Furosemide 20 MG Oral Tablet (Lasix)Indicatio ns:Bilateral lower extremity edema Take 1 Tablet by mouth daily as needed (lower extremity edema). 30 Tablet 11 09/05/20 24 11:55 AM EDT 05/24/2 024 Active Sodium Bicarbonate 650 MG Oral Tablet Take 1 Tablet by mouth in the morning and 1 Tablet before bedtime. 180 Tablet 3 07/25/20 24 6:28 PM EDT Active predniSONE 5 MG Oral Tablet (Deltasone)Indic ations:Erythema nodosum Take 1.5 Tablets by mouth in the morning. 135 Tablet 4 07/28/20 24 10:49 AM EDT 024 Active Calcitriol 0.25 MCG Oral Capsule (Rocaltrol)Indic ations:Renal osteodystrophy Take 1 Capsule by mouth in the morning. 30 Capsule 5 Active Albuterol Sulfate 108 (90 Base) MCG/ACT Inhalation Aerosol Powder Breath ActivatedIndicat ions:COPD, moderate (HCC) Inhale 2 Puffs by mouth every 4 hours as needed for Shortness of Breath. 1 Each Active Additional Information Patient not taking.Reported on 09/29/2024 Albuterol Sulfate (2.5 MG/3ML) 0.083% Inhalation Nebulization Solution (Proventil)Indic ations:COPD, group C, by GOLD 2017 classification ([facility]) Inhale 1 Vial via nebulizer every 4 hours as needed for Shortness of Breath or Wheezing. 360 mL 11 Active Additional Information Patient not taking.Reported on 09/29/2024 Allopurinol 100 MG Oral Tablet (Zyloprim) Take 2 Tablets by mouth in the morning. 180 Tablet 4 07/22/20 24 10:01 AM EDT Active Econazole Nitrate 1 % External Cream (Spectazole)Yashira cations:Rash and nonspecific skin eruption Apply to affected area on buttock, back and legs twice a day for 6 weeks 170 g 3 Active Zinc Oxide 40 % External Paste (Desitin)Indicat ions:Pressure injury of left buttock, stage 1 Apply to buttocks as needed. 57 g 024 Active Atorvastatin Calcium 20 MG Oral Tablet (Lipitor)Indicat ions:Dyslipidemi a, goal LDL below 70 Take 1 Tablet by mouth at bedtime. 90 Tablet 1 09/05/20 24 8:06 AM EDT 024 Active oxyCODONE HCl 5 MG Oral Tablet (Oxy IR) Take 1 tablet by mouth every 4 hours as needed for severe breakthrough pain. 25 Tablet 09/15/20 24 4:14 PM EST Active Sodium Fluoride 1.1 % Dental Cream (Denta 5000 Plus) Use as toothpaste twice daily. 153 g 5 Active Sodium Fluoride 1.1 % Dental Gel (PreviDent) After brushing and flossing, place a strip of fluoride inside tray and place tray inside mouth for 20 minutes. Do not eat/drink for 1 hour. 100 mL 12 Active Vitamin B-12 1000 MCG Oral Tablet (Cyanocobalamin) Indications:SCC (squamous cell carcinoma) Take 1 Tablet by mouth in the morning. 90 Tablet 09/19/20 24 12:41 PM EST Active Folic Acid 1 MG Oral TabletIndication s:SCC (squamous cell carcinoma) Take 1 Tablet by mouth in the morning. 90 Tablet 09/19/20 24 12:41 PM EST Active Aquaphor External Ointment Apply topically to affected area 3 times a day. 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 08/03/2023 08/03/2023 Atherosclerosis of [place] co ronary artery without angina pectoris 02/01/2023 [...] 05/31/2020 01/05/2024 Fever of unknown origin 10/03/2019 12/03/2019 Cachexia 08/30/2019 05/31/2020 Hypertensive heart disease w [...] respiratory failure 06/26/2018 02/06/2022 Small vessel vasculitis 06/26/201806/08 Acute hemodialysis patient 06/26/2018 0 07/29/2018 Septic [...] mRNA, LNP-s, No Pre serve, 2-Dose Series ([employer]) 08/15/2021,01/31/2021,01/03/2021 COVID-19, LNP-s, No Preserve , Ruslan-sucrose, Ages 12+ (Pfizer) 03/19/2022 COVID-19, MRNA-LNP, PF, 30 M CG/0.3 mL, 12 YRS AND ABOVE, IM (ERPLY-[facility]) 09/29/2024,10/25/2023 Covid-19, Mrna, Lnp-s, Pf, B ivalent, 30 Mcg, IM, 12 yrs and above ([employer]) 2022 Pneumococcal Conjugate Vacc, 13 Valent (Prevnar) 01/21/2016 Pneumococcal Conjugate Vacci ne, 20-valent ([id number]) 07/19/2023 Pneumococcal Polysaccharide PPV23 (Pneumovax) 01/13/2011 RSV [...] Used Date Smoking Tobacco: Former Cigarettes 1 11 08 965 - 1965 Smokeless Tobacco: Never Tobacco Cessation:Counseling Given: Not Answered Comments:quit smoking in the 1959 Alcohol Use [...] 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 End 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 Answer Date of Assessment Author No 08/11/2024 8:15 AM YULIANAT Joseluis Zaacrias RN * Are you blind or do [...] Joseluis Brothers RN documented in this encounter Progress Notes * Pastora Sousa CMA - 09/29/2024 10:52 AM EST Pre-Administration Time Out Procedure Performed: Yes Patient Identified (Ask Name/Date of ): Yes Does the patient have a fever greater than 101 degrees today? No Patient allergic to latex? No Has the patient ever fainted after receiving an injection? No VFC Stock: No Immunization(s) verified: Yes, Immunization Name: COVID, VIS Sheet(s) given: Yes Verified Side and Site: Yes Verified Shot(s) with Parent(s)/Patient: Yes * David Antunez MD - 09/29/2024 10:14 AM EST Subjective Kennedy Davis is a 78 year old male that presents for Emergency Department Follow-Up Sometime in the beginning of August patient had a hematoma and is back in developed an open wound.[facility] in [facility] for his open wound. Ever since the wound was explored with a Q-tip it has been draining on a regular basis. CT scan in the Emergency Room showed soft tissue injury but nothing more discrete. Objective BP 141/71 | Pulse 60 | Temp 97.1 F (36.2 C) (Tympanic) | Resp 18 | Wt 159 lb (72.1 kg) | SpO2 97% | BMI 24.90 kg/m | BSA 1.85 m Body mass index is 24.9 kg/m. BP Readings from Last 3 Encounters: 09/29/24 141/71 09/26/24 134/70 09/26/24 119/82 Wt Readings from Last 3 Encounters: 09/29/24 159 lb (72.1 kg) 09/26/24 155 lb 12.8 oz (70.7 kg) 09/26/24 155 lb 11.2 oz (70.6 kg) Physical Exam Constitutional: Appearance: Normal appearance. Eyes: Extraocular Movements: Extraocular movements intact. Conjunctiva/sclera: Conjunctivae normal. Pupils: Pupils are equal, round, and reactive to light. Skin: Comments: Lower thoracic/upper lumbar spine there is a area of swelling with a wound that is hyperpigmented measuring about 2 cm in diameter. At the center this wound is a 2-3 mm opening. There appears to be a clearish/yellow fluid leaking from the wound. Band-Aid over the wound this saturated in this fluid. No fluctuance is found and no exudate is expressible. There is generalized tenderness to the area. Neurological: Mental Status: He is alert. Assessment and plan: Problem List Items Addressed This Visit Fistula of vertebra - Primary MRI for clarification Relevant Orders MRI L SPINE WO CONTRAST Skin ulcer (HCC) (Chronic) Open wound seeping serous fluid. CT scan was not definitive enough to establish how far the fistulawas tracking. After personally reviewing the films I do have concern that this could be tracking all the way to the spinal column and this could be cerebral spinal fluid. Patient is not having any neurologic symptoms which is reassuring and this has been going on for awhile without complication. Jonathan order MRI to clarify. Patient has follow up with both spine surgery and Wound Care in 4 days. I would hesitate to pack the wound until either an MRI is obtained or spinal surgery can give their opinion. Other Visit Diagnoses Need for COVID-19 vaccine Relevant Orders COVID-19, MRNA-LNP, PF, 24-25, 30MCG/0.3ML, IM, 12YRS AND ABOVE (ERPLY) (Completed) Plan MRI L spine without contrast COVID-19, mRNA-LNP, PF, 24-25, 30mcg/0.3mL, IM, 12YRS and ABOVE (ERPLY) Follow up Follow-up: Return if symptoms worsen or fail to improve. | Check-out note: Schedule MRI today? Reschedule 10/18 visit to january Based on the problems addressed, the amount and complexity of data, and the risk of patient management; the medical decision making for this visit is Moderate Total time today including reviewing chart before the visit, pertinent labs, imaging reports, face to face time, and documentation time was 46 minutes. The above was discussed and understanding was expressed. David Antunez MD documented in this encounter Nursing Notes * Jacki Driscoll LPN - 09/29/2024 9:52 AM EST Chief Complaint Patient presents with Emergency Department Follow-Up Pt [facility] on his back. He has an appt with wound care on Wednesday. His states it has gotten a lot smaller since it originally opened. documented in this encounter Miscellaneous Notes * Assessment & Plan Note - David Antunez MD - 09/29/2024 10:59 AM EST Associated Problem(s): Skin ulcer (HCC) Open wound seeping serous fluid. CT scan was not definitive enough to establish how far the fistulawas tracking. After personally reviewing the films I do have concern that this could be tracking all the way to the spinal column and this could be cerebral spinal fluid. Patient is not having any neurologic symptoms which is reassuring and this has been going on for awhile without complication. Wewill order MRI to clarify. Patient has follow up with both spine surgery and Wound Care in 4 days. I would hesitate to pack the wound until either an MRI is obtained or spinal surgery can give their opinion. * Assessment & Plan Note - David Antunez MD - 09/29/2024 10:58 AM EST Associated Problem(s): Fistula of vertebra MRI for clarification documented in this encounter Plan of Treatment Upcoming Encounters Date Type Department Care Team (Late st Contact Info) Description 09/29/2024 1:15 PM EST Treatment Radiation Oncology, [address] [address] 10/02/2024 1:15 PM EST Treatment Radiation Oncology, [address] [address] 10/03/2024 10:00 AM EST Office Visit Wound Care, [facility] [address] [place] [address] Vickey Woodruff MD [address] [place] [address] 10/03/2024 1:15 PM EST Treatment Radiation Oncology, [address] [address] 10/04/2024 1:15 PM EST Treatment Radiation Oncology, [address] [address] 10/06/2024 1:15 PM EST Treatment Radiation Oncology, [address] [address] 10/09/2024 1:15 PM EST Treatment Radiation Oncology, [address] [address] 10/10/2024 1:15 PM EST Treatment Radiation Oncology, [address] [address] 10/11/2024 1:15 PM EST Treatment Radiation Oncology, [address] [address] 10/12/2024 1:15 PM EST Treatment Radiation Oncology, [address] [place] [address] 10/13/2024 1:15 PM EST Treatment Radiation Oncology, [address] [place] [address] 10/16/2024 1:15 PM EST Treatment Radiation Oncology, [address] [place] [address] 10/17/2024 1:15 PM EST Treatment Radiation Oncology, [address] [place] [address] 10/18/2024 1:15 PM EST Treatment Radiation Oncology, [address] [place] [address] 10/19/2024 1:15 PM EST Treatment Radiation Oncology, [address] [place] [address] 10/20/2024 1:15 PM EST Treatment Radiation Oncology, [address] [place] [address] 10/23/2024 1:15 PM EST Treatment Radiation Oncology, [address] [place] [address] 10/24/2024 1:15 PM EST Treatment Radiation Oncology, [address] [place] [address] 10/25/2024 1:15 PM EST Treatment Radiation Oncology, [address] [place] [address] 2024 1:15 PM EST Treatment Radiation Oncology, [address] [place] [address] 10/27/2024 1:15 PM EST Treatment Radiation Oncology, [address] [place] [address] 10/30/2024 1:15 PM EST Treatment Radiation Oncology, [facility] [address] [place] [address] 10/31/2024 1:15 PM EST Treatment Radiation Oncology, [facility] [address] [place] [address] 11/14/2024 1:15 PM EST Office Visit MOHS Surgery [facility] [address] [place] [address] Supriya Fernandes MD [address] [facility] [place] [address] 11/28/2024 10:45 AM EST Office Visit Otolaryngology/Head & Neck/Facial Plastic Surgery [address] [place] [address] Lexie Aldridge MD [address] [place] [address] 12/21/2024 1:30 PM EST [facility] [address] [facility] [place] [address] [place] [address] Malaika Guzman PA-C [address] [place] [address] 12/22/2024 12:00 PM EST Office Visit Nephrology, [facility] [address] [place] [address] Keisha Gunn MD [address] [place] [address] 01/22/2025 1:30 PM EDT PulmDiagnostic Pulmonary Function Lab [facility] [address] [facility] [place] [address] [address] [place] [address] 01/22/2025 2:00 PM EDT Office Visit Pulmonary Medicine [facility] [address] [facility] [place] [phone] Dominguez Aguilar MD [address] [facility] [place] [address] 01/29/2025 2:00 PM EDT Office Visit Family [facility] [address] [place] [phone] David Antunez MD [address] [place] [address] 02/05/2025 10:00 AM EDT Office Visit Rheumatology, [facility] [address] [place] [address] Rafael Hernandez PAReddy [address] [place] [address], [place] [address] 02/06/2025 1:30 PM EDT [facility] [address] [place] [address] Cherry Warner PA-C [address] [place] [address] Scheduled Orders Name Type Priority Associated Diagnoses Orde r Schedule MRI L SPINE WO CONTRAST Medical Imaging STAT Fistula of vertebra Expected: 10/06/2024, Expires: 10/29/2025 Scheduled Procedures Name Priority Associated Diagnoses Date/Ti me COLONOSCOPY FLEXIBLE PROXIMA L DIAGNOSTIC Recall Diverticulosis of sigmoid colon Health Maintenance Due Date Last Done Comments Adult Wellness Visit 03/14/2020 03/14/2019 Diabetic Eye Exam 07/19/2024 07/19/2023, , 04/09/2022, Additional history exists Diabetic Foot Exam 07/19/2024 07/19/2023, 0 06/01/2022, 03/14/2019, Additional history exists HbA1c 08/02/2024 01/31/2024, 11/0 12/2022, 05/18/2023, Additional history exists TSH 01/30/2025 01/31/2024, [...] Additional history exists Zoster Vaccines Completed 05/05/2021, 05/0 05/2021, 03/03/2021 Alpha-1 Antitrypsin Completed 05/19/2021 Pneumococcal [...] this encounter Medical Devices Implanted Type Area Sliver Handler Device Identifier Shelf Expiration Date Model / Serial / Lot Mesh Perfix Plug Lg [id number] - [id number] Implanted:Qty : 1 on 02/07/2019 by Jonathan Correia DO at OR [facility] Right: Groin CR BARD : DAVOL 09/04/2023 [id number] / / [id number] Cytal Wndmtx 1lyr [id number](150 Units) - [id number] - [id number] Implanted:Qty : 1 on 08/10/2024 by Lexie Aldridge MD [place] [facility] Left: Leg Upper [employer] [id number] 10/07/2025 [id number] / [id number] / [id number] Cytal Wndmtx 1lyr 7x10cm (70 Units) - [id number] - [id number] Implanted:Qty : 1 on 08/10/2024 by Lexie Aldridge MD at [place] [facility] Left: Leg Upper [employer] [id number] 01/05/2026 [id number] / [id number] / [id number] documented as of this encounter Visit Diagnoses Diagnosis Type 2 diabetes mellitus with stage 4 chronic kidney disease, without long-term current use of insulin (HCC)- Primary COPD, group C, by GOLD 2017 classification (HCC) Paroxysmal atrial fibrillation (HCC) Atrial fibrillation Erythema nodosum Stage II pressure ulcer of left buttock (HCC) Pressure ulcer, buttock Fistula of vertebra- Primary Other specified disorders of joint of other specified site Need for COVID-19 vaccine Skin ulcer, unspecified ulcer stage ([facility]) documented in this encounter Advance Directives Documents on File Type Date Recorded Patient Filler Shaker Expl anation Advance Directives and Living Will [...] verbally by patient or by statute hierarchy) [facility] Adult Child Emergency Contact Care Teams Practice Physician Relationship Specialty Start Date End Date Fuentes Ashton MD [address] [place] [address] PCP - General Family Medicine 01/30/22 documented as of this encounter
--- OUTSIDE RECORDS SUMMARY | 2024-09-30 18:00 | External Medical Summary | Summary of Care ---
Author Name Unknown Organization [facility] Address [address] [place] [address] Phone [phone] Care Team Providers Care Almond Sorter Name Role Phone Fuentes Ashton MD Primary Care Provider [phone] Encounter Details Date Type Department Care Team (Late st Contact Info) Description 09/28/2024 Orders Only Radiation Oncology, [facility] [address] [place] [address] IovoliMansoor MD [address] [place] [address] Allergies Active Allergy Reactions Criticality Noted Date Comments Aztreonam Hives Medium 10/11/2019 Cephalosporins Rash 05/24/2017 Tolerated cefazolin during August 2024 admission Chlorhexidine Hives,Rash High 01/02/2022 Full body red rash; "skin peeled completely off" Ciprofloxacin Diarrhea Medium 01/28/2015 Iodinated Contrast Media Abdominal pain High 019 Acute kidney failure Levofloxacin Rash Low 07/28/2019 documented as of this encounter (statuses as of 09/28/2024) Medications Apixaban 5 MG Oral Tablet (Eliquis)Indicati ons:Paroxysmal atrial fibrillation (HCC) Take by mouth 1 Tablet in the morning AND 1 Tablet before bedtime. 60 Tablet 01/05/20 Active Additional Information Patient taking differently:5 mg Oral BID (.AM/PM),Pt off Eliquis as of 08/07 for surgery, Reported on 09/26/2024 Tylenol 325 MG Oral Capsule (Acetaminophen) Take [...] Release (PriLOSEC)Indicat ions:Gastroesopha geal reflux disease without esophagitis,correction (current) use 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 Take by [...] Inhalation Aerosol Powder Breath ActivatedIndicati ons:COPD, moderate ([facility]) Inhale 2 Puffs by mouth every 4 hours as needed for Shortness of Breath. 1 Each 11 07/06/20 24 Active Additional Information Patient not taking.Reported on 09/26/2024 Albuterol Sulfate (2.5 MG/3ML) 0.083% Inhalation Nebulization Solution (Proventil)Indica tions:COPD, group C, by GOLD 2017 classification ([facility]) Inhale 1 Vial via nebulizer every 4 hours as needed for Shortness of Breath or Wheezing. 360 mL 11 07/06/20 24 Active Allopurinol 100 MG Oral Tablet (Zyloprim) Take 2 Tablets by mouth in the morning. 180 Tablet 4 4 10:01 AM EDT 07/17/20 24 Active Econazole Nitrate 1 % External Cream (Spectazole)Indic ations:Rash and nonspecific skin eruption Apply to affected area on buttock, back and legs twice a day for 6 weeks 170 g 3 07/24/20 24 Active Aquaphor External Ointment Apply topically to affected area 3 times a day. Apply to neck three times daily 396 g 4 4:09 PM EDT 08/22/20 24 Active Additional Information Patient not taking.Reported on 09/26/2024 Zinc Oxide 40 % External Paste (Desitin)Indicati [...] 90 Tablet 4 12:41 PM EST 09/18/20 Active Folic Acid 1 MG Oral TabletIndications :SCC (squamous cell carcinoma) Take 1 Tablet by mouth in the morning. 90 Tablet 4 12:41 PM EST 09/18/20 Active Hospital, Clinic, or Other Facility Administered Medication Ordered Dose Route Frequency Start Date End Date Status oxygen GASIndications:Iron deficiency anemia, unspecified iron deficiency anemia type IN OXYGEN 08/28/2024 Active documented as of this encounter (statuses as of 09/28/2024) Active Problems Problem Noted Date Diagnosed Date Exposure to potentially hazardous substance 07/2024 Gout [...] and stage 4 chronic kidney disease 03/27/2024 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 4 chronic kidney disease 03/27/2024 Hypocalcemia 03/19/2024 Iron deficiency anemia 02/29/2024 Chronic heart failure with p reserved ejection fraction (HFpEF) 02/23/2024 Cat bite 02/19/2024 Heart failure 01/05/2024 History of sepsis 09/20/2023 Atherosclerosis of renal artery 02/01/2023 Chronic intestinal vascular insufficiency 2022 Hypertensive heart disease w ith heart failure and stage 4 chronic kidney disease 02/02/2022 Hypogonadism in male 12/01/2021 Acute dermatitis 05/08/2021 Telangiectasias 03/03/2021 COPD, moderate 01/06/2021 Overview: Per COPD GOLD Classification Gynecomastia 01/06/2021 Overview (08/16/2024): Jul 24, 2021 Entered By: DONNA CAREY MD Comment: Ultrasound L breast [facility] 01/06/2021 Atherosclerosis of abdominal aorta 06/21/2020 Overview (06/21/2020): CT Abd/pelvis from 2018 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 05/31/2020 Nuclear [...] neoplasm) 0 03/09/2018 Overview (03/09/2018): MRI 02/23 correction (current) use 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 Steroid-induced diabetes [...] Gastroesophageal reflux disease without esophagi tis 03/12/2014 LIZZ (acute kidney injury) documented as of this encounter (statuses as of 09/28/2024) Resolved Problems Problem Noted Date Diagnosed Date Resolved Date Acute respiratory failure with hypoxia 03/03/2024 03/03/2024 Fever 02/27/2024 03/03/2024 Acute gout of multiple sites 02/27/2024 03/03/2024 Type 2 diabetes mellitus without complication 02/07/2002/07/2024 Hospital discharge follow-up 09/20/2023 03/03/2024 Scrotal irritation 09/12/2023 Bilateral cellulitis of lower leg 09/12/2023 03/03/2024 Acute on chronic anemia 09/11/202302/07 Cellulitis 09/09/2023 03/03/2024 Encephalopathy acute 09/09/2023 023 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 08/03/2023 08/03/2023 Atherosclerosis of robinson co ronary artery without angina pectoris 02/01/2023 [...] 07/19/2023 Sepsis 12/16/2021 03/24/2024 Overview (03/24/2024): acute Diet-controlled diabetes mellitus 03/03/2021 05/19/2023 Moderate protein-calorie [...] hypercholesterolemia 03/12/2014 ATN (acute tubular necrosis) 2019 documented as of this encounter (statuses as of 09/28/2024) Immunizations Name Administration Dates Next Due COVID-19 mRNA, LNP-s, No Pre serve, 2-Dose Series ([employer]) 08/15/2021,01/31/2021,01/03/2021 COVID-19, LNP-s, No Preserve , Ruslan-sucrose, Ages 12+ (Pfizer) 03/19/2022 COVID-19, MRNA-LNP, PF, 30 M CG/0.3 mL, 12 YRS AND ABOVE, IM ([facility]) 10/25/2023 Covid-19, Mrna, Lnp-s, Pf, B ivalent, 30 Mcg, IM, 12 yrs and above ([employer]) 2022 Pneumococcal Conjugate Vacc, 13 Valent (Prevnar) 01/21/2016 Pneumococcal Conjugate Vacci ne, 20-valent ([id number]) 07/19/2023 Pneumococcal Polysaccharide PPV23 (Pneumovax) 01/13/2011 RSV [...] 08 965 - 1965 Smokeless Tobacco: Never Comments:quit [...] 08/23/2024 Does the household have a re gular source of income? 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[employer] Not on file Not on file Not [...] Description 09/29/2024 10:20 AM EST Office Visit [facility] [address] [place] [address] David Antunez MD [address] [place] [address] 09/29/2024 1:15 PM EST Treatment Radiation Oncology, [address] [address] 10/02/2024 1:15 PM EST Treatment Radiation Oncology, [address] [address] 10/03/2024 10:00 AM EST Office Visit Wound Care, [address] [address] Vickey Woodruff MD [address] [place] [address] 10/03/2024 1:15 PM EST Treatment Radiation Oncology, [address] [address] 10/04/2024 1:15 PM EST Treatment Radiation Oncology, [address] [address] 10/06/2024 1:15 PM EST Treatment Radiation Oncology, [address] [address] 10/09/2024 1:15 PM EST Treatment Radiation Oncology, [address] [place] [address] 10/10/2024 1:15 PM EST Treatment Radiation Oncology, [address] [address] 10/11/2024 1:15 PM EST Treatment Radiation Oncology, [address] [place] [address] 10/12/2024 1:15 PM EST Treatment Radiation Oncology, [address] [address] 10/13/2024 1:15 PM EST Treatment Radiation Oncology, [address] [place] [address] 10/16/2024 1:15 PM EST Treatment Radiation Oncology, [address] [address] 10/17/2024 1:15 PM EST Treatment Radiation Oncology, [address] [address] 10/18/2024 1:15 PM EST Treatment Radiation Oncology, [address] [address] 10/18/2024 2:20 PM EST Office Visit [facility] [address] [place] [phone] David Antunez MD [address] [place] [address] 10/19/2024 1:15 PM EST Treatment Radiation Oncology, [address] [address] 10/20/2024 1:15 PM EST Treatment Radiation Oncology, [address] [address] 10/23/2024 1:15 PM EST Treatment Radiation Oncology, [address] [address] 10/24/2024 1:15 PM EST Treatment Radiation Oncology, [address] [address] 10/25/2024 1:15 PM EST Treatment Radiation Oncology, [address] [address] 2024 1:15 PM EST Treatment Radiation Oncology, [address] [address] 10/27/2024 1:15 PM EST Treatment Radiation Oncology, [address] [address] 10/30/2024 1:15 PM EST Treatment Radiation Oncology, [address] [address] 10/31/2024 1:15 PM EST Treatment Radiation Oncology, [address] [address] 11/14/2024 1:15 PM EST Office Visit [facility] [address] [place] [address] Supriya Fernandes MD [address] [place] [address] 11/28/2024 10:45 AM EST Office Visit Otolaryngology/Head & Neck/Facial Plastic Surgery [address] [place] [facility] [place] [address] Lexie Aldridge MD [address] [facility] [place] [address] 12/21/2024 1:30 PM EST Office Visit Dermatology, [address] [place] [address] [place] [address] Malaika Guzman PA-C [address] [place] [address] 12/22/2024 12:00 PM EST Office Visit Nephrology, [address] [address] Keisha Gunn MD [address] [place] [address] 01/22/2025 1:30 PM EDT PulmDiagnostic Pulmonary Function Lab [facility] [address] [facility] [place] [address] [address], [address] [place] [address] 01/22/2025 2:00 PM EDT Office Visit Pulmonary Medicine [facility] [address] [facility] [place] [phone] Dominguez Aguilar MD [address] [facility] [address] 02/05/2025 10:00 AM EDT Office Visit Rheumatology, [address] [address] Rafael Hernandez, PAJackiC [address] [place] [address] 02/06/2025 1:30 PM EDT Office [address]iology, [address] [address] Cherry Warner PA-C [address] [place], [place] [address] [address] Scheduled Procedures Name Priority Associated Diagnoses Date/Ti me COLONOSCOPY FLEXIBLE PROXIMA L DIAGNOSTIC Recall Diverticulosis of sigmoid colon Health Maintenance Due Date Last Done Comments Adult Wellness Visit 03/14/2020 03/14/2019 COVID-19 Vaccine ( season) 2024 2023, 10/25/2023, 2022, Additional history exists Diabetic Eye Exam 07/19/2024 07/19/2023, , 04/09/2022, [...] Completed 09/05/2024, 08/30/2023, 09/23/2022, Additional history exists HPV (Gardasil) Vaccine Aged Out No lo nger eligible based on patient's age to complete this topic Hepatitis B Vaccine Aged Out No longe r eligible based on patient's age to complete this topic MENINGOCOCCAL (MENACTRA/MENVEO) Aged Out No longer eligible based on patient's age to complete this topic documented as of this encounter Medical Devices Implanted Type Area Stamping Operator Device Identifier Shelf Expiration Date Model / Serial / Lot Mesh Perfix Plug Lg [id number] - [id number] Implanted:Qty : 1 on 02/07/2019 by Jonathan Correia DO at OR [facility] Right: Groin CR BARD : DAVOL 09/04/2023 [id number] / / [id number] Cytal Wndmtx 1lyr [id number](150 Units) - [id number] - [id number] Implanted:Qty : 1 on 08/10/2024 by Lexie Aldridge MD at OR [facility] Left: Leg Upper [employer] [id number] 10/07/2025 [id number] / [id number] / [id number] Cytal Wndmtx 1lyr 7x10cm (70 Units) - [id number] - [id number] Implanted:Qty : 1 on 08/10/2024 by Lexie Aldridge MD at OR [facility] Left: Leg Upper [employer] [id number] 01/05/2026 [id number] / [id number] / [id number] documented as of this encounter Procedures Procedure Name Priority Date/Time Associated Diagnosis Comments RAD ONC ARIA SESSION SUMMARY Routine 09/28/2024 1:28 PM EST documented in this encounter Results * RAD ONC ARIA SESSION SUMMARY (09/28/2024 1:28 PM EST) Course ID [id number] ARIA RADIATION ONCOLOGY Course Intent Post-op ARIA RADIATION ONCOLOGY Course Start Date 09/04/2024 12:46 PM ARIA RADIATION ONCOLOGY RAD ONC ARIA SESSION NUMBER [id number] ARIA RADIATION ONCOLOGY Course First Treatment Date 09/19/2024 1:24 PM ARIA RADIATION ONCOLOGY Course Last Treatment Date 09/28/2024 1:25 PM ARIA RADIATION ONCOLOGY Course Elapsed Days 9 ARIA RADIATION ONCOLOGY Reference Point ID [id number] ARIA RADIATION ONCOLOGY Reference Point Dosage Given to Date 16 Gy ARIA RADIATION ONCOLOGY Reference Point Session Dosage Given 2 Gy [facility] RADIATION ONCOLOGY Plan ID 10-L Neck [facility]A RADIATION ONCOLOGY Plan Name 10-L Neck [facility]A RADIATION ONCOLOGY Plan Fractions Treated to Date 8 ARIA RADIATION ONCOLOGY Plan Total Fractions Prescribed 30 ARIA RADIATION ONCOLOGY Plan Prescribed Dose Per Fraction 2 Gy ARIA RADIATION ONCOLOGY Plan Total Prescribed Dose 6,000 cGy ARIA RADIATION ONCOLOGY Plan Primary Reference Point [id number] ARIA RADIATION ONCOLOGY 09/28/2024 1:28 PM EST us No Physician Data Unknown DRESSINGS Final Result ARIA RADIATION ONCOLOGY documented in this encounter Advance Directives Documents on File Type Date Recorded 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
--- OUTSIDE RECORDS SUMMARY | 2024-09-30 18:00 | External Medical Summary | Summary of Care ---
Author Name Unknown Organization [facility] Address [address] [facility] [place] [address] Phone [phone] Care Team Providers Care Logging Superintendent Name Role Phone Fuentes Ashton MD Primary Care Provider [phone] Reason for Visit * Reason Onset Date Comments Advice 09/08/202409/08 Encounter Details Date Type Department Care Team (Late st Contact Info) Description 09/08/2024 Telephone [facility] [address] [facility] [place] [address] Fuentes Ashton MD 21 [place] [address] Advice (09/08) Allergies Active Allergy Reactions Criticality Noted Date [...] 1 Tablet before bedtime. 60 Tablet 01/05/20 22 Active Additional Information Patient taking differently:5 mg [...] Release (PriLOSEC)Indicat ions:Gastroesopha geal reflux disease without esophagitis,penitentiary (current) use 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 Take by [...] Inhalation Aerosol Powder Breath ActivatedIndicati ons:COPD, moderate ([facility]) Inhale 2 Puffs by mouth every 4 hours as needed for Shortness of Breath. 1 Each 11 07/06/20 Active Additional Information Patient not taking.Reported on 09/26/2024 Albuterol Sulfate (2.5 MG/3ML) 0.083% Inhalation Nebulization Solution (Proventil)Indica tions:COPD, group C, by GOLD 2017 classification ([facility]) Inhale 1 Vial via nebulizer [...] 4 8:06 AM EDT 09/04/20 24 Active Folic Acid 1 MG Oral TabletIndications :SCC (squamous cell carcinoma) Take 1 Tablet by mouth in the morning. 30 Tablet 08/30/20 24 2023 Disconti nued(Ref ill) Vitamin B-12 1000 MCG Oral Tablet (Cyanocobalamin)I ndications:SCC (squamous cell carcinoma) Take 1 Tablet by mouth in the morning. 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 Steroid-induced diabetes [...] 03/03/2024 Type 2 diabetes mellitus without complication 02/07/20 24 02/07/2024 Hospital discharge follow-up 09/20/2023 03/03/2024 Scrotal irritation 09/12/2023 Bilateral cellulitis of lower leg 09/12/2023 03/03/2024 Acute on chronic anemia 09/11/202302/07 Cellulitis 09/09/2023 03/03/2024 Encephalopathy acute 09/09/2023 023 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 08/03/2023 08/03/2023 Atherosclerosis of [place] co ronary artery without angina pectoris 02/01/2023 [...] renal 05/31/2020 01/05/2024 Fever of unknown origin 10/03/201903/2019 Cachexia 08/30/2019 05/31/2020 Hypertensive heart disease w [...] mRNA, LNP-s, No Pre serve, 2-Dose Series ([employer]) 08/15/2021,01/31/2021,01/03/2021 COVID-19, LNP-s, No Preserve , Ruslan-sucrose, Ages 12+ ([employer]) 03/19/2022 COVID-19, MRNA-LNP, PF, 30 M CG/0.3 mL, 12 YRS AND ABOVE, IM ([facility]) 10/25/2023 Covid-19, Mrna, Lnp-s, Pf, B ivalent, 30 Mcg, IM, 12 yrs and above ([employer]) 2022 Pneumococcal Conjugate Vacc, 13 Valent (Prevnar) 01/21/2016 Pneumococcal Conjugate Vacci ne, 20-valent ([id number]) 07/19/2023 Pneumococcal Polysaccharide PPV23 (Pneumovax) 01/13/2011 RSV [...] 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 Karina Haddad PhD RN appeals board referee Otolaryngology * Telephone Encounter - Karla Samaniego LPN - 09/13/2024 9:22 AM EST Sameera from [facility] calling due to never receiving clarification on the wound care and indicating no wound care is needed. They are declining the HH referral. If wound care needs/orders are needed a new referral will need placed. The order will need specify treatment for wound. [facility] Home Health * Telephone Encounter - Karla Samaniego LPN - 09/11/2024 2:00 PM EST Sameera from [facility] calling to inquiry if there was update on wound care orders for HH. Advised message was sent to ENT on Wednesday to review, no response in chart at this time. Please contact Sameera with clarification on wound care orders at # [phone] * Telephone Encounter - Kandace Lawler CRNP - 09/08/2024 5:05 PM EDT Recommend forwarding this to radiation and ENT * Telephone Encounter - Tessie Martinez LPN - 09/08/2024 3:45 PM EDT Sameera calling back. Given messages. Sameera reports the order they received was for wound care as per radiation oncology It said: Complete wound care treatment as per ENT. Please clarify if Home Health is to be doing wound care, if so what is it and who can learn it in the home? * Telephone Encounter - Keena Samuel LPN - 09/08/2024 3:30 PM EDT Left message with for Sameera to return call to [phone]. Please see below messages. * Telephone Encounter - Karla Samaniego LPN - 09/08/2024 3:06 PM EDT returning calling He had small wound on his butt but this is healed. did the treatment Dr Abel recommended The skin graph is being handled by [facility]. No one should be changing that dressing just [facility]. * Telephone Encounter - Keena Samuel LPN - 09/08/2024 2:45 PM EDT Left generic message on answering machine asking patient to return our call. To [phone]. Please see below message from . Please see who will be pt's caregiver that will learn how to treat/manage wound care at home? * Telephone Encounter - Lee Manrique OSA - 09/08/2024 2:07 PM EDT Sameera with called stating she got an order for Wound care but needs to know who the caregiver is that will learn to treat at home and what the wound is documented in this encounter Plan of Treatment Upcoming Encounters Date Type Department Care Team (Late st Contact Info) Description 09/29/2024 10:20 AM EST Office Visit [facility] [address] [place] [phone] David Antunez MD 21 [facility] [place] [address] 09/29/2024 1:15 PM EST Treatment Radiation Oncology, [address] [address] 10/02/2024 1:15 PM EST Treatment Radiation Oncology, [address] [address] 10/03/2024 10:00 AM EST Office Visit Wound Care, [address] [place] [address] Vickey Woodruff MD 27 [place] [address] 10/03/2024 1:15 PM EST Treatment Radiation Oncology, [address] [address] 10/04/2024 1:15 PM EST Treatment Radiation Oncology, [address] [address] 10/06/2024 1:15 PM EST Treatment Radiation Oncology, [address] [place] [address] 10/09/2024 1:15 PM EST Treatment Radiation Oncology, [address] [address] 10/10/2024 1:15 PM EST Treatment Radiation Oncology, [address] [place] [address] 10/11/2024 1:15 PM EST Treatment Radiation Oncology, [address] [place] [address] 10/12/2024 1:15 PM EST Treatment Radiation Oncology, [address] [place] [address] 10/13/2024 1:15 PM EST Treatment Radiation Oncology, [address] [place] [address] 10/16/2024 1:15 PM EST Treatment Radiation Oncology, [address] [place] [address] 10/17/2024 1:15 PM EST Treatment Radiation Oncology, [address] [place] [address] 10/18/2024 1:15 PM EST Treatment Radiation Oncology, [address] [place] [address] 10/18/2024 2:20 PM EST Office Visit [facility] [address] [place] [address] David Antunez MD [address] [place] [address] 10/19/2024 1:15 PM EST Treatment Radiation Oncology, [address] [place] [address] 10/20/2024 1:15 PM EST Treatment Radiation Oncology, [address] [place] [address] 10/23/2024 1:15 PM EST Treatment Radiation Oncology, [address] [place] [address] 10/24/2024 1:15 PM EST Treatment Radiation Oncology, [address] [place] [address] 10/25/2024 1:15 PM EST Treatment Radiation Oncology, [address], [place] [address] 2024 1:15 PM EST Treatment Radiation Oncology, [facility] [address] [facility] [place] [address] 10/27/2024 1:15 PM EST Treatment Radiation Oncology, [facility] [address] [facility] [place] [address] 10/30/2024 1:15 PM EST Treatment Radiation Oncology, [facility] [address] [facility] [place] [address] 10/31/2024 1:15 PM EST Treatment Radiation Oncology, [facility] [address] [facility] [place] [address] 11/14/2024 1:15 PM EST Office Visit [facility] [address] [place] [address] Supriya Fernandes MD [address] [place] [address] 11/28/2024 10:45 AM EST Office Visit Otolaryngology/Head & Neck/Facial Plastic Surgery [address] [place] [address] Lexie Aldridge MD [address] [place] [address] 12/21/2024 1:30 PM EST Office Visit Dermatology, [facility] [address] [address] [place] [address] Malaika Guzman PA-C 27 [place] [address] 12/22/2024 12:00 PM EST Office Visit Nephrology, [address] [place] [address] Keisha Gunn MD [address] [place] [address] 01/22/2025 1:30 PM EDT PulmDiagnostic Pulmonary Function Lab [facility] [address] [facility] [address] [address], [address] Sonali Thang [place] [address] 01/22/2025 2:00 PM EDT Office Visit Pulmonary Medicine [facility] [place] [address] [place] [phone] Dominguez Aguilar MD [address] [facility] [place] [place] [address] 02/05/2025 10:00 AM EDT Office Visit Rheumatology, [facility] [address] [place] [address] Rafael Hernandez PAReddy [address] [place] [address], [place] [address] 02/06/2025 1:30 PM EDT Office Visit Cardiology, [address] [address] Cherry Warner PA-C [address] [facility] [address] Scheduled Procedures Name Priority Associated Diagnoses Date/Ti [...] 08/13/2025 08/13/2024 Depression Screening 08/23/2025 08/23/2024, 02/07/20 DTap/Tdap Vaccines (4 - Td or Tdap) [...] this encounter Medical Devices Implanted Type Area Viscose Cellar Worker Device Identifier Shelf Expiration Date Model / Serial / Lot Mesh Perfix Plug Lg [id number] - [id number] Implanted:Qty : 1 on 02/07/2019 by Jonathan Correia DO at OR [facility] Right: Groin CR BARD : DAVOL 09/04/2023 [id number] / / [id number] Cytal Wndmtx 1lyr [id number](150 Units) - [id number] - [id number] Implanted:Qty : 1 on 08/10/2024 by Lexie Aldridge MD at OR [facility] Left: Leg Upper [employer] [id number] 10/07/2025 [id number] / [id number] / [id number] Cytal Wndmtx 1lyr 7x10cm (70 Units) - [id number] - [id number] Implanted:Qty : 1 on 08/10/2024 by Lexie Aldridge MD at OR [facility] Left: Leg Upper [employer] [id number] 01/05/2026 [id number] / [id number] / [id number] documented as of this encounter Advance Directives Documents on File Type Date Recorded 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
--- OUTSIDE RECORDS SUMMARY | 2024-09-30 18:01 | External Medical Summary | Summary of Care ---
Author Name Unknown Organization [facility] Address [address] [place] [address] Phone [phone] Care Team Providers Care Sumac Tanner Name Role Phone Fuentes Ashton MD Primary Care Provider [phone] Encounter Details Date Type Department Care Team (Late st Contact Info) Description 09/27/2024 Orders Only Hematology/Oncology, [facility] [address] [place] [address] Monserrat Rojas, RAVEN [address] [place] [address] Allergies Active Allergy Reactions Criticality Noted Date Comments Aztreonam Hives Medium 10/11/2019 Cephalosporins Rash 05/24/2017 Tolerated cefazolin during August 2024 admission Chlorhexidine Hives,Rash High 01/02/2022 Full body red rash; "skin peeled completely off" Ciprofloxacin Diarrhea Medium 01/28/2015 Iodinated Contrast Media Abdominal pain High 019 Acute kidney failure Levofloxacin Rash Low 07/28/2019 documented as of this encounter (statuses as of 09/27/2024) Medications Apixaban 5 MG Oral Tablet (Eliquis)Indicati [...] Release (PriLOSEC)Indicat ions:Gastroesopha geal reflux disease without esophagitis,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 Steroid-induced diabetes [...] as of this encounter (statuses as of 09/27/2024) Resolved Problems Problem Noted Date Diagnosed Date [...] chronic kidney disease 08/03/2023 08/03/2023 Atherosclerosis of [place] co ronary artery without angina pectoris 02/01/2023 [...] Franco Hamilton 08/15/2020 05:46:38 PM Specimen Collected: 10/05/20 09:23 Last Resulted: 08/12/20 09:23 Assessment & [...] as of this encounter (statuses as of 09/27/2024) Immunizations Name Administration Dates Next Due COVID-19 mRNA, LNP-s, No Pre serve, 2-Dose Series ([employer]) 08/15/2021,01/31/2021,01/03/2021 COVID-19, LNP-s, No Preserve , Ruslan-sucrose, Ages 12+ ([employer]) 03/19/2022 COVID-19, MRNA-LNP, PF, 30 M CG/0.3 mL, 12 YRS AND ABOVE, IM ([facility]) 10/25/2023 Covid-19, Mrna, Lnp-s, Pf, B ivalent, 30 Mcg, IM, 12 yrs and above ([employer]) 2022 Pneumococcal Conjugate Vacc, 13 Valent (Prevnar) 01/21/2016 Pneumococcal Conjugate Vacci ne, 20-valent ([id number]) 07/19/2023 Pneumococcal Polysaccharide PPV23 (Pneumovax) 01/13/2011 RSV [...] 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 Not on file Not [...] Care Team (Late st Contact Info) Description 09/27/2024 1:15 PM EST Treatment Radiation Oncology, [address] [address] Arrived 09/28/2024 1:15 PM EST Treatment Radiation Oncology, [address] [address] 09/29/2024 10:20 AM EST Office Visit [facility] [address] [place] [address] David Antunez MD [address] [place] [address] 09/29/2024 1:15 PM EST Treatment Radiation Oncology, [address] [address] 10/02/2024 1:15 PM EST Treatment Radiation Oncology, [address] [address] 10/03/2024 10:00 AM EST Office Visit Wound Care, [facility] [address] [place] [address] Vickey Woodruff MD [address] [place] [address] 10/03/2024 1:15 PM EST Treatment Radiation Oncology, [address] [address] 10/04/2024 1:15 PM EST Treatment Radiation Oncology, [address] [place] [address] 10/06/2024 1:15 PM EST Treatment Radiation Oncology, [address] [place] [address] 10/09/2024 1:15 PM EST Treatment Radiation Oncology, [address] [place] [address] 10/10/2024 1:15 PM EST Treatment Radiation Oncology, [address] [place] [address] 10/11/2024 1:15 PM EST Treatment Radiation Oncology, [address] [place] [address] 10/12/2024 1:15 PM EST Treatment Radiation Oncology, [address] [place] [address] 10/13/2024 1:15 PM EST Treatment Radiation Oncology, [address] [place] [address] 10/16/2024 1:15 PM EST Treatment Radiation Oncology, [address] [address] 10/17/2024 1:15 PM EST Treatment Radiation Oncology, [address] [place] [address] 10/18/2024 1:15 PM EST Treatment Radiation Oncology, [address] [address] 10/18/2024 2:20 PM EST Office Visit [address] [place] [phone] David [facility]z MD [facility] [address] 10/19/2024 1:15 PM EST Treatment Radiation Oncology, [address] [address] 10/20/2024 1:15 PM EST Treatment Radiation Oncology, [address] [address] 10/23/2024 1:15 PM EST Treatment Radiation Oncology, [address] [address] 10/24/2024 1:15 PM EST Treatment Radiation Oncology, [address] [address] 10/25/2024 1:15 PM EST Treatment Radiation Oncology, [address] [address] 2024 1:15 PM EST Treatment Radiation Oncology, [address] [address] 10/27/2024 1:15 PM EST Treatment Radiation Oncology, [address] [address] 10/30/2024 1:15 PM EST Treatment Radiation Oncology, [address] [address] 10/31/2024 1:15 PM EST Treatment Radiation Oncology, [address] [address] 11/14/2024 1:15 PM EST Office Visit [facility] [address] [facility] [address] Supriya Fernandes MD 200 [facility] [address] 11/28/2024 10:45 AM EST Office Visit Otolaryngology/Head & Neck/Facial Plastic Surgery [address] [place] [address] Lexie Aldridge MD [address] [facility] [place] [address] 12/21/2024 1:30 PM EST [facility] [address] [place] [phone] Malaika Guzman PA-C [address] [facility] [address] 12/22/2024 12:00 PM EST Office Visit Nephrology, [address] [address] Keisha Gunn MD [address] [place] [address] 01/22/2025 1:30 PM EDT PulmDiagnostic Pulmonary Function Lab [facility] [address] [facility] [place] [address] West, [address] [facility] [place] [address] 01/22/2025 2:00 PM EDT Office Visit Pulmonary Medicine [facility] [address] [facility] [place] [phone] Dominguez Aguilar MD [address] [facility] [address] 02/05/2025 10:00 AM EDT Office Visit Rheumatology, [address] [phone] Rafael Hernandez PA-C [address] [place] [address], [place] [address] 02/06/2025 1:30 PM EDT Office Visit Cardiology, [place] [address] [place] [address] Cherry Warner PA-C [address] [place] [address] Scheduled Procedures Name Priority Associated Diagnoses Date/Ti [...] 03/14/2019, Additional history exists HbA1c 08/02/2024 01/31/2024, 12/2022, 05/18/2023, Additional history exists TSH 01/30/2025 [...] this encounter Medical Devices Implanted Type Area City Assessor Device Identifier Shelf Expiration Date Model / Serial / Lot Mesh Perfix Plug Lg [id number] - [id number] Implanted:Qty : 1 on 02/07/2019 by Jonathan Correia DO at OR [facility] Right: Groin CR BARD : DAVOL 09/04/2023 [id number] / / [id number] Cytal Wndmtx 1lyr [id number](150 Units) - [id number] - [id number] Implanted:Qty : 1 on 08/10/2024 by Lexie Aldridge MD at OR [facility] Left: Leg Upper [employer] [id number] 10/07/2025 [id number] / [id number] / [id number] Cytal Wndmtx 1lyr 7x10cm (70 Units) - [id number] - [id number] Implanted:Qty : 1 on 08/10/2024 by Lexie Aldridge MD at OR 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
--- OUTSIDE RECORDS SUMMARY | 2024-09-30 18:01 | External Medical Summary | Summary of Care ---
Author Name Unknown Organization [facility] Address [address] [place] [address] Phone [phone] Care Team Providers Care Sql Report Developer Name Role Phone Fuentes Ashton MD Primary Care Provider [phone] Encounter Details Date Type Department Care Team (Late st Contact Info) Description 09/27/2024 8:45 AM EST Scheduled Telephone Care Coordination and Integration [address] [place] [address] [facility] Salesman/Owner [address], [place] [phone] Allergies Active Allergy Reactions Criticality Noted Date [...] Release (PriLOSEC)Indicat ions:Gastroesopha geal reflux disease without esophagitis,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) Inhale 2 Puffs by mouth every 4 hours as needed for Shortness of Breath. 1 Each 11 07/06/20 24 Active Additional Information Patient not taking.Reported on 09/26/2024 Albuterol Sulfate (2.5 MG/3ML) 0.083% Inhalation Nebulization Solution (Proventil)Indica tions:COPD, group C, by GOLD 2017 classification ([facility]) Inhale 1 Vial via nebulizer every 4 [...] from 2018 Atherosclerotic heart diseas e of 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 co ronary artery without angina pectoris 02/01/2023 [...] mRNA, LNP-s, No Pre serve, 2-Dose Series ([employer]) 08/15/2021,01/31/2021,01/03/2021 COVID-19, LNP-s, No Preserve , Ruslan-sucrose, Ages 12+ ([employer]) 03/19/2022 COVID-19, MRNA-LNP, PF, 30 M CG/0.3 mL, 12 YRS AND ABOVE, IM ([facility]) 10/25/2023 Covid-19, Mrna, Lnp-s, Pf, B ivalent, 30 Mcg, IM, 12 yrs and above ([employer]) 2022 Pneumococcal Conjugate Vacc, 13 Valent (Prevnar) 01/21/2016 Pneumococcal Conjugate Vacci ne, 20-valent ([id number]) 07/19/2023 Pneumococcal Polysaccharide PPV23 (Pneumovax) 01/13/2011 RSV [...] 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 (5 years old or older) Answer Entry Date Author No 08/11/2024 8:15 AM EDT Joseluis Zacarias RN documented in this encounter Progress Notes * Gabriela Boone RN - 09/27/2024 10:24 AM EST Karen contacted and assisted with scheduling appt on 09/29/[address] Antunez for ER follow up. * [facility] Salesman/Owner - 09/27/2024 9:43 AM EST Telemedicine visit: No Community Health Salesman/Owner (MANE) documentation: CHW follow up phone call for RNCM and spoke with the patient's spouse, Karen. She reports that the patient was to the ED yesterday due to a wound on his back. She explained [facility] and they were a little concerned about the wound on his back, that they stated opened up a bit. She said they described it as a Hematoma. She said they suggested he go to the ED to be seen for this wound. She said the ED did not seem too concerned about it and referred them to Wound Care, which they have an upcoming appointment for. Karen reports that they are supposed to have a 3 day follow up appointment scheduled with the patient's PCP, but they haven't heard anything about it yet. She asked that this message be sent to the RNCM and let her know that it will have to be either before or after his radiation treatment, which occurs at 1:15pm daily. Karen reports that besides the open wound on his back, everything else seems fine. She is open to follow up phone call in 1 week. Bj Scott Community [facility] Worker Lead [facility] [place] [phone] documented in this encounter Plan of Treatment Upcoming Encounters Date Type Department Care Team (Late st Contact Info) Description 09/27/2024 1:15 PM EST Treatment Radiation Oncology, [address] [address] 09/28/2024 1:15 PM EST Treatment Radiation Oncology, [address] [address] 09/29/2024 10:20 AM EST Office Visit [address] [phone] David Antunez MD [address] [place] [address] 09/29/2024 1:15 PM EST Treatment Radiation Oncology, [address] [address] 10/02/2024 1:15 PM EST Treatment Radiation Oncology, [address] [address] 10/03/2024 10:00 AM EST Office Visit Wound Care, [address] [address] Vickey Woodruff MD [address] [place] [address] 10/03/2024 1:15 PM EST Treatment Radiation Oncology, [address] [address] 10/04/2024 1:15 PM EST Treatment Radiation Oncology, [address] [address] 10/06/2024 1:15 PM EST Treatment Radiation Oncology, [address] [address] 10/09/2024 1:15 PM EST Treatment Radiation Oncology, [address] [place] [address] 10/10/2024 1:15 PM EST Treatment Radiation Oncology, [address] [place] [address] 10/11/2024 1:15 PM EST Treatment Radiation Oncology, [address] [place] [address] 10/12/2024 1:15 PM EST Treatment Radiation Oncology, [address] [place] [address] 10/13/2024 1:15 PM EST Treatment Radiation Oncology, [address] [place] [address] 10/16/2024 1:15 PM EST Treatment Radiation Oncology, [address] [place] [address] 10/17/2024 1:15 PM EST Treatment Radiation Oncology, [address] [place] [address] 10/18/2024 1:15 PM EST Treatment Radiation Oncology, [address] [place] [address] 10/18/2024 2:20 PM EST Office Visit [facility] [address] [place] [phone] David Antunez MD [address] [place] [address] 10/19/2024 1:15 PM EST Treatment Radiation Oncology, [address] [place] [address] 10/20/2024 1:15 PM EST Treatment Radiation Oncology, [address] [address] 10/23/2024 1:15 PM EST Treatment Radiation Oncology, [address] [address] 10/24/2024 1:15 PM EST Treatment Radiation Oncology, [address] [address] 10/25/2024 1:15 PM EST Treatment Radiation Oncology, [address] [address] 2024 1:15 PM EST Treatment Radiation Oncology, [address] [address] 10/27/2024 1:15 PM EST Treatment Radiation Oncology, [address] [address] 10/30/2024 1:15 PM EST Treatment Radiation Oncology, [address] [address] 10/31/2024 1:15 PM EST Treatment Radiation Oncology, [address] [address] 11/14/2024 1:15 PM EST Office Visit [facility] [address] [place] [address] Supriya Fernandes MD [address] [place] [address] 11/28/2024 10:45 AM EST Office Visit Otolaryngology/Head & Neck/Facial Plastic Surgery [address] [place] [address] Lexie Aldridge MD [address] [place] [address] 12/21/2024 1:30 PM EST Office Visit Dermatology, Melissa Desir [place] [address] [address] Malaika Guzman PA-C [address] [place] [address] 12/22/2024 12:00 PM EST Office Visit Nephrology, [address] [address] Keisha Gunn MD [address] [place] [address] 01/22/2025 1:30 PM EDT PulmDiagnostic Pulmonary Function Lab [facility] [address] [facility] [place] [address] [address], [address] [place] [address] 01/22/2025 2:00 PM EDT Office Visit Pulmonary Medicine [facility] [address] [facility] [place] [phone] Dominguez Aguilar MD [address] [facility] [place] [address] 02/05/2025 10:00 AM EDT Office Visit Rheumatology, [address] [address] Rafael Hernandez PA-C [address] [place] [address], [place] [address] 02/06/2025 1:30 PM EDT Office Visit Cardiology, [address] [place] [address] Cherry Warner PA-C [address] [place], [place] [address] [address] Scheduled Procedures Name Priority Associated Diagnoses Date/Ti [...] this encounter Medical Devices Implanted Type Area In Store Marketing Representative Device Identifier Shelf Expiration Date Model / Serial / Lot Mesh Perfix Plug Lg [id number] - [id number] Implanted:Qty : 1 on 02/07/2019 by Jonathan Correia DO at OR [facility] Right: Groin CR BARD : DAVOL 09/04/2023 [id number] / / [id number] Cytal Wndmtx 1lyr [id number](150 Units) - [id number] - [id number] Implanted:Qty : 1 on 08/10/2024 [place] Lexie [place] [facility] [place]: Leg Upper [employer] [id number] 10/07/2025 [id number] / [id number] / [id number] Cytal Wndmtx 1lyr 7x10cm (70 Units) - [id number] - [id number] Implanted:Qty : 1 on 08/10/2024 by Lexie Aldridge MD [place] [facility] [place]: Leg Upper [employer] [id number] 01/05/2026 [id number] / [id number] / [id number] documented as of this encounter Advance Directives Documents on File Type Date 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
--- OUTSIDE RECORDS SUMMARY | 2024-09-30 18:01 | External Medical Summary | Summary of Care ---
Author Name Unknown Organization [facility] Address [address] [place] [address] Phone [phone] Care Team Providers Care Equipment Operator Warehouse Name Role Phone Fuentes Ashton MD Primary Care Provider [phone] Encounter Details Date Type Department Care Team (Late st Contact Info) Description 09/27/2024 Orders Only Hematology/Oncology, [facility] [address] [place] [address] Monserrat Rojas, RAVEN [address] [place] [address] Allergies Active Allergy Reactions Criticality Noted Date [...] Release (PriLOSEC)Indicat ions:Gastroesopha geal reflux disease without esophagitis,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 08/03/2023 08/03/2023 Atherosclerosis of [place] co ronary artery without angina pectoris 02/01/2023 [...] mRNA, LNP-s, No Pre serve, 2-Dose Series ([employer]) 08/15/2021,01/31/2021,01/03/2021 COVID-19, LNP-s, No Preserve , Ruslan-sucrose, Ages 12+ ([employer]) 03/19/2022 COVID-19, MRNA-LNP, PF, 30 M CG/0.3 mL, 12 YRS AND ABOVE, IM ([facility]) 10/25/2023 Covid-19, Mrna, Lnp-s, Pf, B ivalent, 30 Mcg, IM, 12 yrs and above ([employer]) 2022 Pneumococcal Conjugate Vacc, 13 Valent (Prevnar) 01/21/2016 Pneumococcal Conjugate Vacci ne, 20-valent ([id number]) 07/19/2023 Pneumococcal Polysaccharide PPV23 (Pneumovax) 01/13/2011 RSV [...] 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 [address] [place] [address] David Antunez MD [address] [place] [address] 09/29/2024 1:15 PM EST Treatment Radiation Oncology, [address] [address] 10/02/2024 1:15 PM EST Treatment Radiation Oncology, [address] [address] 10/03/2024 10:00 AM EST Office Visit Wound Care, [facility] [address] [place] [address] Vickey Woodruff MD [address] [place] [address] 10/03/2024 1:15 PM EST Treatment Radiation Oncology, [address] [address] 10/04/2024 1:15 PM EST Treatment Radiation Oncology, [address] [place] [address] 10/06/2024 1:15 PM EST Treatment Radiation Oncology, [address] [place] [address] 10/09/2024 1:15 PM EST Treatment Radiation Oncology, [address] [place] [address] 10/10/2024 1:15 PM EST Treatment Radiation Oncology, [address] [place] [address] 10/11/2024 1:15 PM EST Treatment Radiation Oncology, [address] [place] [address] 10/12/2024 1:15 PM EST Treatment Radiation Oncology, [address] [place] [address] 10/13/2024 1:15 PM EST Treatment Radiation Oncology, [address] [place] [address] 10/16/2024 1:15 PM EST Treatment Radiation Oncology, [address] [address] 10/17/2024 1:15 PM EST Treatment Radiation Oncology, [address] [place] [address] 10/18/2024 1:15 PM EST Treatment Radiation Oncology, [address] [address] 10/18/2024 2:20 PM EST Office Visit [address] [place] [phone] David [facility]z [facility] [address] 10/19/2024 1:15 PM EST Treatment Radiation Oncology, [address] [address] 10/20/2024 1:15 PM EST Treatment Radiation Oncology, [address] [address] 10/23/2024 1:15 PM EST Treatment Radiation Oncology, [address] [address] 10/24/2024 1:15 PM EST Treatment Radiation Oncology, [address] [address] 10/25/2024 1:15 PM EST Treatment Radiation Oncology, [address] [address] 2024 1:15 PM EST Treatment Radiation Oncology, [address] [address] 10/27/2024 1:15 PM EST Treatment Radiation Oncology, [address] [address] 10/30/2024 1:15 PM EST Treatment Radiation Oncology, [address] [address] 10/31/2024 1:15 PM EST Treatment Radiation Oncology, [address] [address] 11/14/2024 1:15 PM EST Office Visit [facility] [address] [facility] [address] Supriya Fernandes MD [address] [facility] [address] 11/28/2024 10:45 AM EST Office Visit Otolaryngology/Head & Neck/Facial Plastic Surgery [address] [place] [address] Lexie Aldridge MD [address] [place] [facility] [place] [place] [address] 12/21/2024 1:30 PM EST [facility] [address] [place] [phone] Malaika Guzman PA-C [address] [facility] [place] [address] 12/22/2024 12:00 PM EST Office Visit Nephrology, [address] [address] Keisha Gunn MD [address] [place] [address] 01/22/2025 1:30 PM EDT PulmDiagnostic Pulmonary Function Lab [facility] [address] [facility] [place] [address] [address], [address] [facility] [place] [address] 01/22/2025 2:00 PM EDT Office Visit Pulmonary Medicine [facility] [address] [facility] [place] [phone] Dominguez Aguilar MD [address] [facility] [address] 02/05/2025 10:00 AM EDT Office Visit Rheumatology, [address] [phone] Rafael Hernandez PA-C [address] [place] [address], [place] [address] 02/06/2025 1:30 PM EDT Office Visit Cardiology, [place] [address] [place] [address] Cherry Warner PA-C [address] [place] [address] Scheduled Procedures Name Priority Associated Diagnoses Date/Ti [...] this encounter Medical Devices Implanted Type Area Parking Patroller Device Identifier Shelf Expiration Date Model / Serial / Lot Mesh Perfix Plug Lg [id number] - [id number] Implanted:Qty : 1 on 02/07/2019 by Jonathan Correia DO at OR [facility] Right: Groin CR BARD : DAVOL 09/04/2023 [id number] / / [id number] Cytal Wndmtx 1lyr [id number](150 Units) - [id number] - [id number] Implanted:Qty : 1 on 08/10/2024 by Lexie Aldridge MD at [place] [facility] Left: Leg Upper [employer] [id number] 10/07/2025 [id number] / [id number] / [id number] Cytal Wndmtx 1lyr 7x10cm (70 Units) - [id number] - [id number] Implanted:Qty : 1 on 08/10/2024 by Lexie Aldridge MD at [place] [facility] Left: Leg Upper [employer] [id number] 01/05/2026 [id number] / [id number] / [id number] documented as of this encounter Advance Directives Documents on File Type Date Recorded 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
--- OUTSIDE RECORDS SUMMARY | 2024-09-30 18:01 | External Medical Summary | Summary of Care ---
Author Name Unknown Organization [facility] Address [address] [place] [address] Phone [phone] Care Team Providers Care Patternmaker Hand Name Role Phone Fuentes Ashton MD Primary Care Provider [phone] Reason for Visit * Reason Onset Date Comments Imaging Records Request 09/28/2024 Encounter Details Date Type Department Care Team (Late st Contact Info) Description 09/28/2024 Telephone Radiology Film File [address] [place] [address] Support, Imaging Radiology [address] [place] [address] Imaging Records Request Allergies Active Allergy Reactions Criticality Noted Date [...] Release (PriLOSEC)Indicat ions:Gastroesopha geal reflux disease without esophagitis,long-term (current) use 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 Take by [...] Inhalation Aerosol Powder Breath ActivatedIndicati ons:COPD, moderate ([facility]) Inhale 2 Puffs by mouth every 4 hours as needed for Shortness of Breath. 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 08/03/2023 08/03/2023 Atherosclerosis of [place] co ronary artery without angina pectoris 02/01/2023 [...] mRNA, LNP-s, No Pre serve, 2-Dose Series ([employer]) 08/15/2021,01/31/2021,01/03/2021 COVID-19, LNP-s, No Preserve , Ruslan-sucrose, Ages 12+ ([employer]) 03/19/2022 COVID-19, MRNA-LNP, PF, 30 M CG/0.3 mL, 12 YRS AND ABOVE, IM ([facility]) 10/25/2023 Covid-19, Mrna, Lnp-s, Pf, B ivalent, 30 Mcg, IM, 12 yrs and above ([employer]) 2022 Pneumococcal Conjugate Vacc, 13 Valent (Prevnar) 01/21/2016 Pneumococcal Conjugate Vacci ne, 20-valent ([id number]) 07/19/2023 Pneumococcal Polysaccharide PPV23 (Pneumovax) 01/13/2011 RSV [...] Smoking Tobacco: Former Cigarettes 1 11 08 955 - 1965 Smokeless Tobacco: Never Comments:quit smoking [...] 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 requesting CT lsp 09/14/24, US abd 08/09/24, CT chest 04/10/24 images be pushed to their system. [place] Authorization to Release on file. Images pushed to [facility] external connection through [employer] Report(s) faxed to [phone]. documented in this encounter Plan of Treatment Upcoming Encounters Date Type Department Care Team (Late st Contact Info) Description 09/28/2024 1:15 PM EST Treatment Radiation Oncology, [address] [address] 09/29/2024 10:20 AM EST [address] [phone] David Antunez MD [address] [facility] [address] 09/29/2024 1:15 PM EST Treatment Radiation Oncology, [address] [place] [address] 10/02/2024 1:15 PM EST Treatment Radiation Oncology, [address] [place] [address] 10/03/2024 10:00 AM EST Office Visit Wound Care, [address] [place] [address] Vickey Woodruff MD [address] [facility] [place] [address] 10/03/2024 1:15 PM EST Treatment Radiation Oncology, [address] [place] [address] 10/04/2024 1:15 PM EST Treatment Radiation Oncology, [address] [place] [address] 10/06/2024 1:15 PM EST Treatment Radiation Oncology, [address] [place] [address] 10/09/2024 1:15 PM EST Treatment Radiation Oncology, [address] [place] [address] 10/10/2024 1:15 PM EST Treatment Radiation Oncology, [address] [place] [address] 10/11/2024 1:15 PM EST Treatment Radiation Oncology, [address] [place] [address] 10/12/2024 1:15 PM EST Treatment Radiation Oncology, [address] [place] [address] 10/13/2024 1:15 PM EST Treatment Radiation Oncology, [address] [place] [address] 10/16/2024 1:15 PM EST Treatment Radiation Oncology, [address] [place] [address] 10/17/2024 1:15 PM EST Treatment Radiation Oncology, [address] [place] [address] 10/18/2024 1:15 PM EST Treatment Radiation Oncology[address] [place] [address] 10/18/2024 2:20 PM EST Office Visit [address] [place] [phone] David Antunez MD [address] [place] [address] 10/19/2024 1:15 PM EST Treatment Radiation Oncology, [address] [place] [address] 10/20/2024 1:15 PM EST Treatment Radiation Oncology, [address] [place] [address] 10/23/2024 1:15 PM EST Treatment Radiation Oncology, [address] [place] [address] 10/24/2024 1:15 PM EST Treatment Radiation Oncology, [address] [place] [address] 10/25/2024 1:15 PM EST Treatment Radiation Oncology, [address] [place] [address] 2024 1:15 PM EST Treatment Radiation Oncology, [address] [place] [address] 10/27/2024 1:15 PM EST Treatment Radiation Oncology, [address] [place] [address] 10/30/2024 1:15 PM EST Treatment Radiation Oncology, [address] [place] [address] 10/31/2024 1:15 PM EST Treatment Radiation Oncology, [address] [place] [address] 11/14/2024 1:15 PM EST Office Visit [facility] [address] [place] [address] Supriya Fernandes MD 200 [place] [address] 11/28/2024 10:45 AM EST Office Visit Otolaryngology/Head & Neck/Facial Plastic Surgery [address] [place] [address] Lexie Aldridge MD [address] [place] [address] 12/21/2024 1:30 PM EST Office Visit Dermatology, [address] [place] [address] [place] [address] Malaika Guzman PA-C [address] [place], [place] [phone] 12/22/2024 12:00 PM EST Office Visit Nephrology, [facility] [address] [place] [address] Keisha Gunn MD 400 [place] [address] 01/22/2025 1:30 PM EDT [facility]Diagnostic [facility] [address] [place] [address] [address] West, Pft [address] [facility] [place] [address] 01/22/2025 2:00 PM EDT Office Visit Pulmonary Medicine [facility] [place] [address] [address] [address] [phone] Dominguez Aguilar MD [address] [place] [address] [address] 02/05/2025 10:00 AM EDT Office Visit Rheumatology, [facility] 400 [facility] [place] [address] Rafael Hernandez PA-C 101[address] [facility], [place] [address] 02/06/2025 1:30 PM EDT Office Visit Cardiology, [address] [place] [address] Cherry Warner PA-C 400 [facility] [place] [address] Scheduled Procedures Name Priority Associated Diagnoses Date/Ti [...] this encounter Medical Devices Implanted Type Area Director Device Identifier Shelf Expiration Date Model / Serial / Lot Mesh Perfix Plug Lg [id number] - [id number] Implanted:Qty : 1 on 02/07/2019 by Jonathan Correia DO at [facility] Right: Groin CR BARD : DAVOL 09/04/2023 [id number] / / [id number] Cytal Wndmtx 1lyr [id number](150 Units) - [id number] - [id number] Implanted:Qty : 1 on 08/10/2024 by Lexie Aldridge MD at OR [facility] Left: Leg Upper [employer] [id number] 10/07/2025 [id number] / [id number] / [id number] Cytal Wndmtx 1lyr 7x10cm (70 Units) - [id number] - [id number] Implanted:Qty : 1 on 08/10/2024 by Lexie Aldridge MD at OR [facility] Left: Leg Upper [employer] [id number] 01/05/2026 [id number] / [id number] / [id number] documented as of this encounter Advance Directives Documents on File Type Date Recorded 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
--- OUTSIDE RECORDS SUMMARY | 2024-09-30 18:02 | External Medical Summary | Summary of Care ---
Author Name Unknown Organization [facility] Address [address] [place] [address] Phone [phone] Care Team Providers Care Senior Catering Sales Manager Name Role Phone Fuentes Ashton MD Primary Care Provider [phone] Encounter Details Date Type Department Care Team (Late st Contact Info) Description 09/27/2024 8:45 AM EST Scheduled Telephone Care Coordination and Integration [address] [place] [address] Jonah Scott [facility] Health Care Specialist [address] [place], [place] [phone] Allergies Active Allergy Reactions Criticality Noted Date [...] Release (PriLOSEC)Indicat ions:Gastroesopha geal reflux disease without esophagitis,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 08/03/2023 08/03/2023 Atherosclerosis of [place] co ronary artery without angina pectoris 02/01/2023 [...] mRNA, LNP-s, No Pre serve, 2-Dose Series ([employer]) 08/15/2021,01/31/2021,01/03/2021 COVID-19, LNP-s, No Preserve , Ruslan-sucrose, Ages 12+ ([employer]) 03/19/2022 COVID-19, MRNA-LNP, PF, 30 M CG/0.3 mL, 12 YRS AND ABOVE, IM ([facility]) 10/25/2023 Covid-19, Mrna, Lnp-s, Pf, B ivalent, 30 Mcg, IM, 12 yrs and above ([employer]) 2022 Pneumococcal Conjugate Vacc, 13 Valent (Prevnar) 01/21/2016 Pneumococcal Conjugate Vacci ne, 20-valent ([id number]) 07/19/2023 Pneumococcal Polysaccharide PPV23 (Pneumovax) 01/13/2011 RSV [...] 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 Bj Scott Community Health Worker Lead [facility] [phone] Electronically signed by Jonah Scott [facility] Health Care Specialist at 09/27/2024 9:49 AM EST documented in this encounter Plan of Treatment Upcoming Encounters Date Type Department Care Team (Late st Contact Info) Description 09/27/2024 1:15 PM EST Treatment Radiation Oncology, [facility] [address] [place] [address] 09/28/2024 1:15 PM EST Treatment Radiation Oncology, [address], [place] [address] 09/29/2024 1:15 PM EST Treatment Radiation Oncology, [address] [place] [address] 10/02/2024 1:15 PM EST Treatment Radiation Oncology, [address] [place] [address] 10/03/2024 10:00 AM EST Office Visit Wound Care, [address], [place] [address] Vickey Woodruff MD [address] [place] [address], [place] [address] 10/03/2024 1:15 PM EST Treatment Radiation Oncology, [address] [place] [address] 10/04/2024 1:15 PM EST Treatment Radiation Oncology, [address] [place] [address] 10/06/2024 1:15 PM EST Treatment Radiation Oncology, [address] [place] [address] 10/09/2024 1:15 PM EST Treatment Radiation Oncology, [address], [place] [address] 10/10/2024 1:15 PM EST Treatment Radiation Oncology, [address] [place] [address] 10/11/2024 1:15 PM EST Treatment Radiation Oncology, [address] [place] [address] 10/12/2024 1:15 PM EST Treatment Radiation Oncology, [address] [place] [address] 10/13/2024 1:15 PM EST Treatment Radiation Oncology, [address] [place] [address] 10/16/2024 1:15 PM EST Treatment Radiation Oncology, [address] [place] [address] 10/17/2024 1:15 PM EST Treatment Radiation Oncology, [address] [place] [address] 10/18/2024 1:15 PM EST Treatment Radiation Oncology, [address] [place] [address] 10/18/2024 2:20 PM EST Office Visit [facility] [address] [place] [address] David Antunez MD [address] [place] [address] 10/19/2024 1:15 PM EST Treatment Radiation Oncology, [address] [place] [address] 10/20/2024 1:15 PM EST Treatment Radiation Oncology, [address] [place] [address] 10/23/2024 1:15 PM EST Treatment Radiation Oncology, [address] [place] [address] 10/24/2024 1:15 PM EST Treatment Radiation Oncology, [address] [place] [address] 10/25/2024 1:15 PM EST Treatment Radiation Oncology, [address] [place] [address] 2024 1:15 PM EST Treatment Radiation Oncology, [address] [place] [address] 10/27/2024 1:15 PM EST Treatment Radiation Oncology, [facility] [address] [place] [facility] [place] [address] 10/30/2024 1:15 PM EST Treatment Radiation Oncology, [facility] [address] [place] [facility] [place] [address] 10/31/2024 1:15 PM EST Treatment Radiation Oncology, [facility] [address] [place] [address] 11/14/2024 1:15 PM EST Office Visit [facility] [address] [place] [address] Supriya Fernandes MD 200 [place] [address] 11/28/2024 10:45 AM EST Office Visit Otolaryngology/Head & Neck/Facial Plastic Surgery [address] [place] [address] Lexie Aldridge MD [address] [place] [address] 12/21/2024 1:30 PM EST Office [facility], [facility] [address] [facility] [address] [place] [address] Malaika Guzman PA-C 27 [place] [address] 12/22/2024 12:00 PM EST Office Visit Nephrology, [facility] [address] [place] [address] Keisha Gunn MD [address] [place] [address] 01/22/2025 1:30 PM EDT PulmDiagnostic Pulmonary Function Lab [facility] [address] [facility] [place] [address] West, [address] [place] [address] 01/22/2025 2:00 PM EDT Office Visit Pulmonary Medicine [facility] [address] [address] Dominguez Aguilar MD [address] [place] [address] [address] 02/05/2025 10:00 AM EDT Office Visit Rheumatology, [facility] 400 [facility] [address] Rafael Hernandez PA-C 47[address] [facility] [place] [address] 02/06/2025 1:30 PM EDT Office Visit Cardiology, [place] 400 [facility] [place] [address] Cherry Warner PA-C 400 [facility] [address] Scheduled Procedures Name Priority Associated Diagnoses Date/Ti [...] this encounter Medical Devices Implanted Type Area Tone Regulator Device Identifier Shelf Expiration Date Model / Serial / Lot Mesh Perfix Plug Lg [id number] - [id number] Implanted:Qty : 1 on 02/07/2019 by Jonathan Correia DO at OR [facility] Right: Groin CR BARD : DAVOL 09/04/2023 [id number] / / [id number] Cytal Wndmtx 1lyr 28m21rs(150 Units) - [id number] - [id number] Implanted:Qty : 1 on 08/10/2024 by Lexie Aldridge MD at OR [facility] Left: Leg Upper [employer] [id number] 10/07/2025 [id number] / [id number] / [id number] Cytal Wndmtx 1lyr 7x10cm (70 Units) - [id number] - [id number] Implanted:Qty : 1 on 08/10/2024 by Lexie Aldridge MD at OR [facility] Left: Leg Upper [employer] [id number] 01/05/2026 [id number] / [id number] / [id number] documented as of this encounter Advance Directives Documents on File Type Date Recorded 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
--- OUTSIDE RECORDS SUMMARY | 2024-09-30 18:02 | External Medical Summary | Summary of Care ---
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 Take by [...] tions:COPD, group C, by GOLD 2017 classification ([facility]) Inhale 1 Vial via nebulizer every [...] from 2018 Atherosclerotic heart diseas e of [place] coronary artery without angina pectoris 05/31/2020 Nuclear [...] neoplasm) 0 03/09/2018 Overview (03/09/2018): 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 08/03/2023 08/03/2023 Atherosclerosis of [place] co ronary artery without angina pectoris 02/01/2023 [...] mRNA, LNP-s, No Pre serve, 2-Dose Series ([employer]) 08/15/2021,01/31/2021,01/03/2021 COVID-19, LNP-s, No Preserve , Ruslan-sucrose, Ages 12+ ([employer]) 03/19/2022 COVID-19, MRNA-LNP, PF, 30 M CG/0.3 mL, 12 YRS AND ABOVE, IM ([facility] 10/25/2023 Covid-19, Mrna, Lnp-s, Pf, B ivalent, 30 Mcg, IM, 12 yrs and above ([employer]) 2022 Pneumococcal Conjugate Vacc, 13 Valent (Prevnar) 01/21/2016 Pneumococcal Conjugate Vacci ne, 20-valent ([facility]) 07/19/2023 Pneumococcal Polysaccharide PPV23 (Pneumovax) 01/13/2011 RSV [...] 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 Not on file Not [...] 09/27/2024 1:15 PM EST Treatment Radiation Oncology, [address] [address] 09/28/2024 1:15 PM EST Treatment Radiation Oncology, [address] [address] 09/29/2024 1:15 PM EST Treatment Radiation Oncology, [address] [address] 10/02/2024 1:15 PM EST Treatment Radiation Oncology, [address] [address] 10/03/2024 10:00 AM EST Office Visit Wound Care, [address] [address] Vickey Woodruff MD [address] [place] [address] 10/03/2024 1:15 PM EST Treatment Radiation Oncology, [address] [address] 10/04/2024 1:15 PM EST Treatment Radiation Oncology, [address] [address] 10/06/2024 1:15 PM EST Treatment Radiation Oncology, [address] [address] 10/09/2024 1:15 PM EST Treatment Radiation Oncology, [address] [address] 10/10/2024 1:15 PM EST Treatment Radiation Oncology, [address] [place] [address] 10/11/2024 1:15 PM EST Treatment Radiation Oncology, [address] [address] 10/12/2024 1:15 PM EST Treatment Radiation Oncology, [address] [place] [address] 10/13/2024 1:15 PM EST Treatment Radiation Oncology, [address] [place] [address] 10/16/2024 1:15 PM EST Treatment Radiation Oncology, [address] [address] 10/17/2024 1:15 PM EST Treatment Radiation Oncology, [address] [address] 10/18/2024 1:15 PM EST Treatment Radiation Oncology, [address] [address] 10/18/2024 2:20 PM EST Office Visit [address] [address] David Antunez MD [address] [place] [address] 10/19/2024 1:15 PM EST Treatment Radiation Oncology, [address] [place] [address] 10/20/2024 1:15 PM EST Treatment Radiation Oncology, [address] [address] 10/23/2024 1:15 PM EST Treatment Radiation Oncology, [address] [place] [address] 10/24/2024 1:15 PM EST Treatment Radiation Oncology, [address] [address] 10/25/2024 1:15 PM EST Treatment Radiation Oncology, [address] [address] 2024 1:15 PM EST Treatment Radiation Oncology, [address] [address] 10/27/2024 1:15 PM EST Treatment Radiation Oncology, [address] [address] 10/30/2024 1:15 PM EST Treatment Radiation Oncology, [address] [address] 10/31/2024 1:15 PM EST Treatment Radiation Oncology, [address] [address] 11/14/2024 1:15 PM EST Office Visit [facility] 200 [place] [address] Supriya Fernandes MD 200 [place] [address] 11/28/2024 10:45 AM EST Office Visit Otolaryngology/Head & Neck/Facial Plastic Surgery [address] [place] [address] Lexie Aldridge MD [address] [place] [address] 12/21/2024 1:30 PM EST Office Visit Dermatology, [place] [address] [place] [address] Malaika Guzman PA-C 27 [address] [place] [address] 12/22/2024 12:00 PM EST Office Visit Nephrology, [address] [address] Keisha Gunn MD [address] [place] [address] 01/22/2025 1:30 PM EDT PulmDiagnostic Pulmonary Function Lab [facility] [address] [facility] [place] [address] West, [address] [place] [address] 01/22/2025 2:00 PM EDT Office Visit Pulmonary Medicine [facility] [address] [facility] [place] [phone] Dominguez Aguilar MD [address] [facility] [address] 02/05/2025 10:00 AM EDT Office Visit Rheumatology, [address] [address] Rafael Hernandez PAReddy [address] [place] [address], [place] [address] 02/06/2025 1:30 PM EDT Office Visit Cardiology, [address] [address] Cherry Warner PA-C [address] [place] [address] [place] [address] Scheduled Procedures Name Priority Associated Diagnoses Date/Ti [...] 03/14/2019, Additional history exists HbA1c 08/02/2024 01/31/2024, 110 12/2022, 05/18/2023, Additional history exists TSH 01/30/2025 [...] this encounter Medical Devices Implanted Type Area Manager Interventional Device Identifier Shelf Expiration Date Model / Serial / Lot Mesh Perfix Plug Lg [id number] - [id number] Implanted:Qty : 1 on 02/07/2019 by Jonathan Correia DO at OR [facility] Right: Groin CR BARD : DAVOL 09/04/2023 [id number] / / [id number] Cytal Wndmtx 1lyr [id number](150 Units) - [id number] - [id number] Implanted:Qty : 1 on 08/10/2024 by Lexie Aldridge MD at OR [facility] Left: Leg Upper [employer] [id number] 10/07/2025 [id number] / [id number] / [id number] Cytal Wndmtx 1lyr 7x10cm (70 Units) - [id number] - [id number] Implanted:Qty : 1 on 08/10/2024 by Lexie Aldridge MD at OR [facility] Left: Leg Upper [employer] [id number] 01/05/2026 [id number] / [id number] / [id number] documented as of this encounter Advance Directives Documents on File Type Date Recorded Patient Insulation Board Back Tender Expl anation Advance Directives and Living Will [...] verbally by patient or by statute hierarchy) [facility] Adult Child Emergency Contact Care Teams Supervisor Sheet Manufacturing Relationship Specialty Start Date End Date Fuentes Ashton MD [address] [place] [phone] PCP - General Family Medicine 01/30/22 documented as of this encounter
--- OUTSIDE RECORDS SUMMARY | 2024-09-30 18:02 | External Medical Summary | Summary of Care ---
Author Name Unknown Organization [facility] Address [address] [place] [address] Phone [phone] Care Team Providers Care Framing Machine Tender Name Role Phone Fuentes Ashton MD Primary Care Provider [phone] Encounter Details Date Type Department Care Team (Late st Contact Info) Description 09/27/2024 8:45 AM EST Scheduled Telephone Care Coordination and Integration [address] [place] [address] Jonah Scott Pending Sale To [facility] Track Watchman [address], [place] [id number] Allergies Active Allergy Reactions Criticality Noted Date [...] geal reflux disease without esophagitis,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 1 Each 11 07/06/20 24 Active Additional Information Patient not taking.Reported on 09/26/2024 Albuterol Sulfate (2.5 MG/3ML) 0.083% Inhalation Nebulization Solution (Proventil)Indica tions:COPD, group C, by GOLD 2017 classification ([facility]) Inhale 1 Vial via nebulizer every [...] from 2018 Atherosclerotic heart diseas e of [place] coronary artery without angina pectoris 05/31/2020 Nuclear [...] neoplasm) 0 03/09/2018 Overview (03/09/2018): MRI 02/23 retirement (current) use 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 08/03/2023 08/03/2023 Atherosclerosis of [place] co ronary artery without angina pectoris 02/01/2023 [...] mRNA, LNP-s, No Pre serve, 2-Dose Series (BiBCOM) 08/15/2021,01/31/2021,01/03/2021 COVID-19, LNP-s, No Preserve , Ruslan-sucrose, Ages 12+ (BiBCOM) 03/19/2022 COVID-19, MRNA-LNP, PF, 30 M CG/0.3 mL, 12 YRS AND ABOVE, IM ([facility]) 10/25/2023 Covid-19, Mrna, Lnp-s, Pf, B ivalent, 30 Mcg, IM, 12 yrs and above (BiBCOM) 2022 Pneumococcal Conjugate Vacc, 13 Valent (Prevnar) 01/21/2016 Pneumococcal Conjugate Vacci ne, 20-valent (Asvvivo81) 07/19/2023 Pneumococcal Polysaccharide PPV23 (Pneumovax) 01/13/2011 RSV [...] End Date retired at 65 - [address] Not on file Not on file Not [...] Progress Notes * Jonah Scott Community [facility] Track Watchman - 09/27/2024 9:43 AM EST Telemedicine visit: No Community Health Track Watchman (MANE) documentation: CHW follow up phone call [...] week. Bj Scott Community Health Worker Lead [facility] [phone] Electronically signed by Jonah Scott Pending Sale To [facility] Track Watchman at 09/27/2024 9:49 AM EST documented in this encounter Plan of Treatment Upcoming Encounters Date Type Department Care Team (Late st Contact Info) Description 09/27/2024 1:15 PM EST Treatment Radiation Oncology, [facility] [address] [place] [address] 09/28/2024 1:15 PM EST Treatment Radiation Oncology, [address], [place] [address] 09/29/2024 1:15 PM EST Treatment Radiation Oncology, [address] [place] [address] 10/02/2024 1:15 PM EST Treatment Radiation Oncology, [address] [place] [address] 10/03/2024 10:00 AM EST Office Visit Wound Care, [address], [place] [address] Vickey Woodruff MD [address] [place] [address], [place] [address] 10/03/2024 1:15 PM EST Treatment Radiation Oncology, [address] [place] [address] 10/04/2024 1:15 PM EST Treatment Radiation Oncology, [address] [place] [address] 10/06/2024 1:15 PM EST Treatment Radiation Oncology, [address] [place] [address] 10/09/2024 1:15 PM EST Treatment Radiation Oncology, [address], [place] [address] 10/10/2024 1:15 PM EST Treatment Radiation Oncology, [address] [place] [address] 10/11/2024 1:15 PM EST Treatment Radiation Oncology, [address] [place] [address] 10/12/2024 1:15 PM EST Treatment Radiation Oncology, [address] [place] [address] 10/13/2024 1:15 PM EST Treatment Radiation Oncology, [address] [place] [address] 10/16/2024 1:15 PM EST Treatment Radiation Oncology, [address] [place] [address] 10/17/2024 1:15 PM EST Treatment Radiation Oncology, [address] [place] [address] 10/18/2024 1:15 PM EST Treatment Radiation Oncology, [address] [place] [address] 10/18/2024 2:20 PM EST Office Visit [facility] [address] [place] [address] David Antunez MD [address] [place] [address] 10/19/2024 1:15 PM EST Treatment Radiation Oncology, [address] [place] [address] 10/20/2024 1:15 PM EST Treatment Radiation Oncology, [address] [place] [address] 10/23/2024 1:15 PM EST Treatment Radiation Oncology, [address] [place] [address] 10/24/2024 1:15 PM EST Treatment Radiation Oncology, [address] [place] [address] 10/25/2024 1:15 PM EST Treatment Radiation Oncology, [address] [place] [address] 2024 1:15 PM EST Treatment Radiation Oncology, [address] [place] [address] 10/27/2024 1:15 PM EST Treatment Radiation Oncology, [facility] [address] [place] [address] 10/30/2024 1:15 PM EST Treatment Radiation Oncology, [facility] [address] [place] [address] 10/31/2024 1:15 PM EST Treatment Radiation Oncology, [facility] [address] [place] [address] 11/14/2024 1:15 PM EST Office Visit [facility] Surgery [facility] [address] [place] [address] Supriya Fernandes MD [address] [place] [address] 11/28/2024 10:45 AM EST Office Visit Otolaryngology/Head & Neck/Facial Plastic Surgery [address] [place] [address] Lexie Aldridge MD [address] [place] [address] 12/21/2024 1:30 PM EST [facility] [address] [facility] [address] [place] [address] Malaika Guzman PA-C [address] [place] [address] 12/22/2024 12:00 PM EST Office Visit Nephrology, [facility] [address] [place] [address] Keisha Gunn MD [address] [place] [address] 01/22/2025 1:30 PM EDT PulmDiagnostic Pulmonary Function Lab [facility] [address] [facility] [place] [address] [address], [address] Thang [place] [address] 01/22/2025 2:00 PM EDT Office Visit Pulmonary Medicine [facility] [address] [place] [phone] Dominguez Aguilar MD [address] [place] [address] 02/05/2025 10:00 AM EDT Office Visit Rheumatology, [facility] [address] [facility] [address] Rafael Hernandez PA-C [address] [facility] [address] 02/06/2025 1:30 PM EDT Office Visit Cardiology, [place] [address] [place] [address] Cherry Warner PA-C [address] [facility] [address] Scheduled Procedures Name Priority Associated Diagnoses Date/Ti [...] this encounter Medical Devices Implanted Type Area Paving Plant Operator Device Identifier Shelf Expiration Date Model / Serial / Lot Mesh Perfix Plug Lg [id number] - [id number] Implanted:Qty : 1 on 02/07/2019 by Jonathan Correia DO at OR [facility] Right: Groin CR BARD : DAVOL 09/04/2023 [id number] / / [id number] Cytal Wndmtx 1lyr 19y47ss(150 Units) - [id number] - [id number] Implanted:Qty : 1 on 08/10/2024 by Lexie Aldridge MD at [place] [facility] Left: Leg Upper [employer] [id number] 10/07/2025 [id number] / [id number] / [id number] Cytal Wndmtx 1lyr 7x10cm (70 Units) - [id number] - [id number] Implanted:Qty : 1 on 08/10/2024 by Lexie Aldridge MD at [place] [facility] Left: Leg Upper [employer] [id number] 01/05/2026 [id number] / [id number] / [id number] documented as of this encounter Advance Directives Documents on File Type Date Recorded 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
--- OUTSIDE RECORDS SUMMARY | 2024-09-30 18:02 | External Medical Summary | Summary of Care ---
Author Name Unknown Organization [facility] [address] [place] [address] Phone [phone] Care Team Providers Care Carpenter Mine Name Role Phone Fuentes Ashton MD Primary Care Provider [phone] Reason for Referral * Evaluate & Treat - Unlimited Visits (Within 3 days (urgent)) - Pending Review Specialty Diagnoses / Procedures Referred By Contac t Referred To Contact Wound Care Diagnoses Open wound of back, unspecified laterality, initial encounter Supriya Haynes PA-C [address] [place] [address] Phone: tel: fax: Referral ID Status Reason Start Date Expiration Date Visits Requested Visits Authorized [id number] Pending Review Specialty Services Required 4 [phone] Question Answer Referral Priority Within 3 days (urgent) Where should this appointment be scheduled? ising Where is the wound? Knee and above Comments Assess for: Other: wound to back Discharge Order Reason for Visit * Reason Comments Wound Recheck Back Pain * Auth/Cert Specialty Diagnoses / Procedures Referred By Contac t Referred To Contact [address] [address] Phone: tel:[phone] [facility] Emergency Department ([facility]) [address] [place] [address] Phone: tel: fax: Referral ID Status Reason Start Date Expiration Date Visits Re quested Visits Authorized [id number] Encounter Details Date Type Department Care Team (Late st Contact Info) Description 09/26/2024 2:26 PM EST - 09/26/2024 4:00 PM EST Emergency [facility] Emergency Department ([facility]) [address] [place] [address] Antonino Aragon MD [address] [facility] [place] [id number] Open wound of back, unspecified laterality, initial encounter (Primary Dx) Discharge Disposition: Home - Self Care Allergies Active Allergy Reactions Criticality Noted Date [...] Release (PriLOSEC)Indicat ions:Gastroesopha geal reflux disease without esophagitis,senior care (current) use 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 Take by [...] needed for Shortness of Breath. 1 Each 07/06/20 24 Active Additional Information Patient not taking.Reported on 09/26/2024 Albuterol Sulfate (2.5 MG/3ML) 0.083% Inhalation Nebulization Solution (Proventil)Indica tions:COPD, group C, by GOLD 2017 classification ([facility]) Inhale 1 Vial via nebulizer every 4 hours as needed for Shortness of Breath or Wheezing. 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 08/03/2023 08/03/2023 Atherosclerosis of atka co ronary artery without angina pectoris 02/01/2023 [...] pancreatitis 03/09/2018 8 Severe malnutrition 02/27/2018 11/22/19 Type 2 diabetes, HbA1c goal < 7% [...] mRNA, LNP-s, No Pre serve, 2-Dose Series ([employer]) 08/15/2021,01/31/2021,01/03/2021 COVID-19, LNP-s, No Preserve , Urslan-sucrose, Ages 12+ ([employer]) 03/19/2022 COVID-19, MRNA-LNP, PF, 30 M CG/0.3 mL, 12 YRS AND ABOVE, IM ([facility]) 10/25/2023 Covid-19, Mrna, Lnp-s, Pf, B ivalent, 30 Mcg, IM, 12 yrs and above ([employer]) 2022 Pneumococcal Conjugate Vacc, 13 Valent (Prevnar) 01/21/2016 Pneumococcal Conjugate Vacci ne, 20-valent ([id number]) 07/19/2023 Pneumococcal Polysaccharide PPV23 (Pneumovax) 01/13/2011 RSV [...] 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 Not on file Not on file Not on file documented as of this encounter Last Filed Vital Signs Vital Sign Reading Time Taken Comments Blood Pressure 134/70 09/26/2024 3:05 PM EST Pulse 56 09/26/2024 3:05 PM EST Temperature 36.7 C (98.1 F) 09/26/2024 2:00 PM ES T Respiratory Rate 18 09/26/2024 3:05 PM EST Oxygen Saturation 100% 09/26/2024 2:00 PM EST Inhaled Oxygen Concentration - - Weight 70.7 kg (155 lb 12.8 oz) 09/26/2024 2:00 PM EST Height 170.2 cm (5' 7") 09/26/2024 2:00 PM EST Body Mass Index 24.4 09/26/2024 2:00 PM EST documented in this [...] Joseluis Brothers RN documented in this encounter Discharge Instructions * Discharge Instructions* Supriya Haynes PA-C - 09/26/2024 3:37 PM EST Wash wound twice daily with warm water and soap. Pat the area thoroughly dry and cover with a clean and dry non stick dressing. Do not use Antibiotic ointment. A referral has been made for follow up with wound care on an outpatient basis. Pablo will arrange this appointment for you. Contact your orthopedic spine surgery to schedule a follow up appointment. See your PCP in 3 days. Return to the Emergency Deparment if symptoms return, persist, or worsen. documented in this encounter ED Notes * Antonino Aragon MD - 09/26/2024 2:30 PM EST Images from the original note were not included. HISTORY OF PRESENT ILLNESS Kennedy Davis is a 78 year old male who presents to the ED for evaluation of Wound Recheck and BackPain. The patient was seen at 09/26/24 1899. 78 year old male with PMH significant for thyroid disease, GERD, COPD presents to the ED from the . for evaluation of tunneling wound to back. States that symptom onset was late July. Wound is decreasing in size with time. No fever, chills. Painful. CT completed early September 2024: T12-L5 soft tissue at area of concern, which cannot be further characterized on this noncontrast CT. Contrast-enhanced lumbar spine MR may be performed for further evaluation, provided there is no clinical contraindication to MR or intravenous gadolinium-based contrast. Drainage present. No injury, per patient. S/P fusion 6 years ago. Review of Systems Constitutional: Negative for chills, diaphoresis, fatigue and fever. Skin: Positive for wound. The patient's allergies, past history, and medications were reviewed. PHYSICAL EXAM Initial Vitals (see all): BP 155/70 | Pulse 65 | Resp 18 | Temp 98.1 | O2 100 %Weight 70.67 kg | Height 170.2 cm | BMI 24.4 kg/m2 Initial Pain Assessment (see all): 8 (severe pain)/10, Sharp, location: thoracic back ([facility] Adult Scale 0-10) Physical Exam Vitals and nursing note reviewed. Constitutional: General: He is awake. Appearance: He is not ill-appearing, toxic-appearing or diaphoretic. Cardiovascular: Rate and Rhythm: Normal rate and regular rhythm. Heart sounds: Normal heart sounds. Pulmonary: Effort: Pulmonary effort is normal. Breath sounds: Normal breath sounds and air entry. Abdominal: General: Bowel sounds are normal. Palpations: Abdomen is soft. Tenderness: There is no abdominal tenderness. Musculoskeletal: Back: Skin: General: Skin is warm and dry. Capillary Refill: Capillary refill takes less than 2 seconds. Neurological: Mental Status: He is alert and oriented to person, place, and time. Psychiatric: Behavior: Behavior is cooperative. PROCEDURES AND TREATMENTS ED Orders | ED Results MEDICAL DECISION MAKING Nursing notes and vital signs were reviewed. ED Course as of 09/26/241934e Sep 26, [address] of back: T12-L5 soft tissue at area of concern, which cannot be further characterized on this noncontrast CT. Contrast-enhanced lumbar spine MR may be performed for further evaluation, provided there is no clinical contraindication to MR or intravenous gadolinium-based contrast. [JT] 1501 Discussed recommendations with patient and family: If labs normal, will refer to ortho for wound care. If labs abnormal, consider MRI. [JT] 1532 CRP (Inflammatory Marker)(!): 8 [JT] 1532 WBC: 5.75 No concerning lab findings. Recommendations: daily dressing changes Referrral to wound care Follow up with ortho spine at [facility] Family and patient in agreement. [JT] ED Course User Index [JT] Ivy, Supriya Michaela, PA-C Differential Diagnoses Based on my history, physical exam, and evaluation, the differential includes, but is not limited, to the following diagnoses: wound, pressure ulcer, hardware failure, cellulitis. Clinical Impressions Open wound of back, unspecified laterality, initial encounter Disposition Discharged. The patient's condition at disposition was: stable. - labs without concerning findings. - referred to wound care on outpatient basis - to contact Tn Elaine jennifer for follow up with ortho spine surgeon -Educated on strict return to ED instructions. Understanding verbalized by patient. Discharge Medications None Antonino Aragon was the attending physician who supervised the care of this patient. Supriya Haynes PA-C ATTENDING ATTESTATION I have discussed the patient's management with the provider listed above and agree with the note, findings, and plan of care. I personally made/approved the management plan and take responsibility for patient management. * Arnie Shore RN - 09/26/2024 2:00 PM EST Patient has a wound on his back since May. Wound opened about a month ago and patient was [facility] q-tip several centimeter into wound. Denies fever/chills,reports feeling okay. documented in this encounter Miscellaneous Notes * ED Brass Cutter Note - Paige Friedman RN - 09/26/2024 3:59 PM EST Patient's wound dressed with non adherent dressing and paper tape. Patient given ED discharge sheet. Provider and this nurse reviewed discharge instructions with patient and significant other who verbalized understanding. Patient ambulated out of ED with a steady gait. * ED Brass Cutter Note - Emelyn Walker RN - 09/26/2024 3:10 PM EST 1500: Pt presents from home with wound to back since May. Per , states it opened approx one month ago. Draining serous drainage. Family concerned that it is related to back surgery he had six years ago. Denies fever/chills. states that [facility] and they [facility] a q-tip up and it measured several centimeters into the wound as a "tunnel." Labs drawn and sent. 20 G in R hand. 1511: Report given to Mark Friedman RN. documented in this encounter Plan of Treatment Upcoming Encounters Date Type Department Care Team (Late st Contact Info) Description 09/27/2024 1:15 PM EST Treatment Radiation Oncology, [address] [address] 09/28/2024 1:15 PM EST Treatment Radiation Oncology, [address] [address] 09/29/2024 1:15 PM EST Treatment Radiation Oncology, [address] [address] 10/02/2024 1:15 PM EST Treatment Radiation Oncology, [address] [address] 10/03/2024 1:15 PM EST Treatment Radiation Oncology, [address] [address] 10/04/2024 1:15 PM EST Treatment Radiation Oncology, [address] [address] 10/06/2024 1:15 PM EST Treatment Radiation Oncology, [address] [address] 10/06/2024 2:00 PM EST Office Visit Dental Medicine, [place] [address] [place] [address] Russel Caceres, [facility] [address] [place] [address] 10/09/2024 1:15 PM EST Treatment Radiation Oncology, [address] [address] 10/10/2024 1:15 PM EST Treatment Radiation Oncology, [address] [address] 10/11/2024 1:15 PM EST Treatment Radiation Oncology, [address] [address] 10/12/2024 1:15 PM EST Treatment Radiation Oncology, [address] [address] 10/13/2024 1:15 PM EST Treatment Radiation Oncology, [address] [address] 10/16/2024 1:15 PM EST Treatment Radiation Oncology, [address] [address] 10/17/2024 1:15 PM EST Treatment Radiation Oncology, [address] [address] 10/18/2024 1:15 PM EST Treatment Radiation Oncology, [address] [address] 10/18/2024 2:20 PM EST Office Visit [address] [phone] David Antunez MD [address] [place] [address] 10/19/2024 1:15 PM EST Treatment Radiation Oncology, [address] [address] 10/20/2024 1:15 PM EST Treatment Radiation Oncology, [address] [place] [address] 10/23/2024 1:15 PM EST Treatment Radiation Oncology, [address] [address] 10/24/2024 1:15 PM EST Treatment Radiation Oncology, [address] [address] 10/25/2024 1:15 PM EST Treatment Radiation Oncology, [address] [address] 2024 1:15 PM EST Treatment Radiation Oncology, [address] [address] 10/27/2024 1:15 PM EST Treatment Radiation Oncology, [address] [address] 10/30/2024 1:15 PM EST Treatment Radiation Oncology, [address] [address] 10/31/2024 1:15 PM EST Treatment Radiation Oncology, [address] [address] 11/14/2024 1:15 PM EST Office Visit MOHS Surgery [facility] [address] [place] [address] Supirya Fernandes MD [address] [place] [address] 11/28/2024 10:45 AM EST Office Visit Otolaryngology/Head & Neck/Facial Plastic Surgery [address] [place] [facility] [place] [address] Lexie Aldridge MD [address] [facility] [place] [address] 12/21/2024 1:30 PM EST Office Visit Dermatology, Ahmet Rowell [address] [place] [address] Malaika Guzman PA-C [address] [place] [address] 12/22/2024 12:00 PM EST Office Visit Nephrology, [address] [address] Keisha Gunn MD [address] [place] [address] 01/22/2025 1:30 PM EDT PulmDiagnostic Pulmonary Function Lab [facility] [address] [facility] [place] [address] [address], [address] [place], [place] [address] 01/22/2025 2:00 PM EDT Office Visit Pulmonary Medicine [facility] [address] [facility] [place] [phone] Dominguez Aguilar MD [address] [facility] [place] [address] 02/05/2025 10:00 AM EDT Office Visit Rheumatology, [address] [address] Rafael Hernandez, PAJackiC [address] [place] [address] 02/06/2025 1:30 PM EDT Office Visit Cardiology, [address] [address] Cherry Warner PA-C [address] [place], [place] [address] [address] Scheduled Procedures Name Priority Associated Diagnoses Date/Ti me COLONOSCOPY FLEXIBLE PROXIMA L DIAGNOSTIC Recall Diverticulosis of sigmoid colon Scheduled Referrals Name Type Priority Associated Diagnoses Orde r Schedule WOUND CARE REFERRAL OP Referral Within 3 days (urgent) Open wound of back, unspecified laterality, initial encounter Ordered: 09/26/2024 Health Maintenance Due Date Last Done Comments [...] this encounter Medical Devices Implanted Type Area Costume Shop Coordinator Device Identifier Shelf Expiration Date Model / Serial / Lot Mesh Perfix Plug [id number] [id number] - [id number] Implanted:Qty : 1 on 02/07/2019 by Jonathan Correia DO at OR [facility] Right: Groin CR BARD : DAVOL 09/04/2023 [id number] / / [id number] Cytal Wndmtx 1lyr 21n30sg(150 Units) - [id number] - [id number] Implanted:Qty : 1 on 08/10/2024 by Lexie Aldridge MD at OR [facility] Left: Leg Upper [employer] [id number] 10/07/2025 [id number] / [id number] / [id number] Cytal Wndmtx 1lyr 7x10cm (70 Units) - [id number] - [id number] Implanted:Qty : 1 on 08/10/2024 by Lexie Aldridge MD at OR [facility] Left: Leg Upper [employer] [id number] 01/05/2026 [id number] / [id number] / [id number] documented as of this encounter Procedures Procedure Name Priority Date/Time Associated Diagnosis Comments DIFFERENTIAL, AUTOMATED STAT 09/26/2024 3:01 PM EST CRP (INFLAMMATORY MARKER) STAT 09/26/2024 3:01 PM EST COMPREHENSIVE METABOLIC PANEL STAT 09/26/2024 3:01 PM EST CBC STAT 09/26/2024 3:01 PM EST CBC STAT 09/26/2024 3:01 PM EST documented in this encounter Results * (ABNORMAL) DIFFERENTIAL, AUTOMATED (09/26/2024 3:01 PM EST) WBC 5.75 4.00 - 10.80 K/uL 09/26/2024 3:10 PM EST [facility] Neutrophils % 70.8 40.0 - 75.0 % 09/26/2024 3:10 PM EST [facility] Lymphocytes % 19.0 18.0 - 42.0 % 09/26/2024 3:10 PM EST [facility] Monocytes % 5.7 1.0 - 11.0 % 09/26/2024 3:10 PM EST [facility] Eosinophils % 0.5 0.0 - 6.0 % 09/26/2024 3:10 PM EST [facility] Basophils % 0.2 0.0 - 2.0 % 09/26/2024 3:10 PM EST [facility] Immature Granulocytes % 3.8(H) 0.0 - 2.0 % 09/26/2024 3:10 PM EST [facility] Absolute Neutrophils 4.07 1.80 - 7.70 K/uL 09/26/2024 3:10 PM EST [facility] Absolute Lymphocytes 1.09 1.00 - 4.80 K/ul 09/26/2024 3:10 PM EST [facility] Absolute Monocytes 0.33 0.00 - 1.10 K/uL 09/26/2024 3:10 PM EST [facility] Absolute Eosinophils 0.03 0.00 - 0.70 K/uL 09/26/2024 3:10 PM EST [facility] Absolute Basophils 0.01 0.00 - 0.20 K/uL 09/26/2024 3:10 PM EST [facility] Absolute Immature Granulocytes 0.22(H) 0.00 - 0.20 K/uL 09/26/2024 3:10 PM EST [facility] Blood Venous blood specimen / Unknown Venipuncture / Unknown 09/26/2024 3:01 PM EST 09/26/2024 3:04 PM EST us Antonino Aragon MD LAB BLOOD ORDERABLES Final Re sult LABORATORY [facility] [address] [place] [address] * (ABNORMAL) CBC (09/26/2024 3:01 PM EST) [facility] WBC 5.75 4.00 - 10.80 K/uL 09/26/2024 3:10 PM EST LABORATORY [facility] RBC 3.31 4.50 - 5.25 M/uL 09/26/2024 3:10 PM EST LAB[facility]ORY [facility] HGB 11.2(L) 14.0 - 16.8 g/dL 09/26/2024 3:10 PM EST [facility] HCT 36.1(L) 40.0 - 48.4 % 09/26/2024 3:10 PM EST [facility] MCV 109.1 82.0 - 99.5 fL 09/26/2024 3:10 PM EST [facility] MCH 33.8 27.0 - 34.0 pg 09/26/2024 3:10 PM EST LABORATORY [facility] MCHC 31.0 32.0 - 36.0 g/dL 09/26/2024 3:10 PM EST LAB[facility]ORY [facility] RDW 15.7 11.5 - 15.5 % 09/26/2024 3:10 PM EST LAB[facility] PLT 114(L) 140 - 400 K/uL 09/26/2024 3:10 PM EST [facility] MPV 11.9 6.6 - 11.1 fL 09/26/2024 3:10 PM EST LAB[facility] nRBCs 0 <=0 /100 WBCs 09/26/2024 3:10 PM EST LAB[facility] Blood Venous blood specimen / Unknown Venipuncture / Unknown 09/26/2024 3:01 PM EST 09/26/2024 3:04 PM EST us Antonino Aragon MD LAB BLOOD ORDERABLES Final Re sult LABORATORY [facility] [address] [place] [address] * (ABNORMAL) CRP (INFLAMMATORY MARKER) (09/26/2024 3:01 PM EST) [facility] CRP (Inflammatory Marker) 8(H) <=5 mg/L 09/26/2024 3:30 PM EST [facility] Blood Venous blood specimen / Unknown Venipuncture / Unknown 09/26/2024 3:01 PM EST 09/26/2024 3:04 PM EST us Antonino Aragon MD LAB BLOOD ORDERABLES Final Re sult [facility] [address] [place] [address] * (ABNORMAL) COMPREHENSIVE METABOLIC PANEL (09/26/2024 3:01 PM EST) BUN 54(H) 6 - 20 mg/dL 09/26/2024 3:30 PM EST [facility] CREATININE 2.7(H) 0.6 - 1.2 mg/dL 09/26/2024 3:30 PM EST [facility] EGFR 23(L) >=60 mL/min 09/26/2024 3:30 PM EST [facility] Comment:eGFR is calculated b ased on the CKD-EPI 2020 equation. SODIUM 135 135 - 146 mmol/L 09/26/2024 3:30 PM EST [facility] POTASSIUM 4.8 3.5 - 5.1 mmol/L 09/26/2024 3:30 PM EST [facility] CHLORIDE 100 98 - 107 mmol/L 09/26/2024 3:30 PM EST [facility] CO2 24 22 - 32 mmol/L 09/26/2024 3:30 PM EST [facility] ANION GAP 11 7 - 15 mmol/L 09/26/2024 3:30 PM EST [facility] GLUCOSE 140(H) 70 - 120 mg/dL 09/26/2024 3:30 PM EST [facility] Albumin 3.7(L) 3.8 - 5.0 g/dL 09/26/2024 3:30 PM EST [facility] AST 28 10 - 50 U/L 09/26/2024 3:30 PM EST [facility] Alkaline Phosphatase 61 35 - 130 U/L 09/26/2024 3:30 PM EST [facility] Bilirubin, Total 0.4 <=1.2 mg/dL 09/26/2024 3:30 PM EST [facility] CALCIUM 9.4 8.4 - 10.2 mg/dL 09/26/2024 3:30 PM EST [facility] Protein 7.0 6.0 - 8.3 g/dL 09/26/2024 3:30 PM EST [facility] ALT 19 10 - 50 U/L 09/26/2024 3:30 PM EST [facility] Blood Venous blood specimen / Unknown Venipuncture / Unknown 09/26/2024 3:01 PM EST 09/26/2024 3:04 PM EST us Antonino Aragon MD LAB BLOOD ORDERABLES Final Re sult [facility] [address] [place] [address] documented in this encounter Visit Diagnoses Diagnosis Type 2 diabetes mellitus with stage 4 chronic kidney disease, without long-term current use of insulin (HCC)- Primary COPD, group C, by GOLD 2017 classification (HCC) Paroxysmal atrial fibrillation (HCC) Atrial fibrillation Erythema nodosum Stage II pressure ulcer of left buttock (HCC) Pressure ulcer, buttock Open wound of back, unspecified laterality, initial encounter- Primary documented in this encounter Advance Directives Documents on File Type Date Recorded Patient Fitness Management Director Expl anation Advance Directives and Living Will [...] verbally by patient or by statute hierarchy) [facility] Adult Child Emergency Contact Care Teams Carpenter Mine Relationship Specialty Start Date End Date Fuentes Ashton MD [address] [place] [phone] PCP - General Family Medicine 01/30/22 documented as of this encounter
--- OUTSIDE RECORDS SUMMARY | 2024-09-30 18:03 | External Medical Summary ---
Author Name Unknown Address Unknown Organization [facility] - [address] [place] [place] [address] Laboratory Report Ordering Provider Test Date Status ERNESTO OATES 09/26/2024 15:01:21 Final Observation Date Value Abnormality Reference (Units ) Status BUN 09/26/2024 15:01:21 54 Above high normal 6-20 (mg/dL) Final Creatinine 09/26/2024 15:01:21 2.7 Above high normal 0.6-1.2 (mg/dL) Final Glomerular filtration rate/1.73 sq M.predicted [Volume Rate/Area] in Serum, Plasma or Blood by Creatinine-based formula (CKD-EPI) 09/26/2024 15:01:21 23 Below low normal >=60 (mL/min) Final eGFR is calculated based on the CKD-EPI 2020 equation. Sodium 09/26/2024 15:01:21 135 135-146 (m mol/L) Final Potassium 09/26/2024 15:01:21 4.8 3.5-5.1 (m mol/L) Final Cl 09/26/2024 15:01:21 100 98-107 (mm ol/L) Final CO2 09/26/2024 15:01:21 24 22-32 (mmo l/L) Final Anion gap 09/26/2024 15:01:21 11 7-15 (mmol /L) Final Glucose 09/26/2024 15:01:21 140 Above high normal 70 -120 (mg/dL) Final Albumin 09/26/2024 15:01:21 3.7 Below low normal 3.8 -5.0 (g/dL) Final AST (Aspartate aminotransferase) 09/26/2024 15:01:21 28 10-50 (U/L) Fin al Alk Phos 09/26/2024 15:01:21 61 35-130 (U/ L) Final Bilirubin, Total 09/26/2024 15:01:21 0.4 <=1 .2 (mg/dL) Final Calcium 09/26/2024 15:01:21 9.4 8.4-10.2 ( mg/dL) Final Protein 09/26/2024 15:01:21 7.0 6.0-8.3 (g /dL) Final ALT (Alanine aminotransferase) 09/26/2024 15:01:21 19 10-50 (U/L) Everardo diaz Performing Location LABORATORY [facility] - [address] [place], [place] [address]geoff [place] [address]
--- OUTSIDE RECORDS SUMMARY | 2024-09-30 18:03 | External Medical Summary ---
Author Name Unknown Address Unknown Organization K1F:LAB[facility]ATORY [facility] - [address] [place] [address] Laboratory Report Ordering Provider Test Date Status ERNESTO OATES 09/26/2024 15:01:21 Final Observation Date Value Abnormality Reference (Units ) Status CRP, low-sensitivity 09/26/2024 15:01:21 8 Above high normal <=5 (mg/L) Final Performing Location LABORATORY [facility] - [address] [place] [address]
--- OUTSIDE RECORDS SUMMARY | 2024-09-30 18:03 | External Medical Summary | Summary of Care ---
Author Name Unknown Organization [facility] Address [address] [place] [address] Phone [phone] Care Team Providers Care Environmental Scientists Name Role Phone Fuentes Ashton MD Primary Care Provider [phone] Encounter Details Date Type Department Care Team (Late st Contact Info) Description 09/21/2024 Orders Only Radiation Oncology, [facility] [address] [place] [address] IovoliMansoor MD [address] [place] [address] Allergies Active Allergy Reactions Criticality Noted Date Comments Aztreonam Hives Medium 10/11/2019 Cephalosporins Rash 05/24/2017 Tolerated cefazolin during August 2024 admission Chlorhexidine Hives,Rash High 01/02/2022 Full body red rash; "skin peeled completely off" Ciprofloxacin Diarrhea Medium 01/28/2015 Iodinated Contrast Media Abdominal pain High 019 Acute kidney failure Levofloxacin Rash Low 07/28/2019 documented as of this encounter (statuses as of 09/21/2024) Medications Apixaban 5 MG Oral Tablet (Eliquis)Indicati ons:Paroxysmal atrial fibrillation (HCC) Take by mouth 1 Tablet in the morning AND 1 Tablet before bedtime. 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 1 Each 11 07/06/20 24 Active Additional Information Patient not taking.Reported on 08/25/2024 Albuterol Sulfate (2.5 MG/3ML) 0.083% Inhalation Nebulization Solution (Proventil)Indica tions:COPD, group C, by GOLD 2017 classification ([facility]) Inhale 1 Vial via [...] 4 4:09 PM EDT 08/22/20 24 Active Zinc Oxide 40 % External [...] as of this encounter (statuses as of 09/21/2024) Active Problems Problem Noted Date Diagnosed Date [...] from 2018 Atherosclerotic heart diseas [place] coronary artery without angina pectoris 05/31/2020 [...] neoplasm) 0 03/09/2018 Overview (03/09/2018): 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 Steroid-induced diabetes [...] as of this encounter (statuses as of 09/21/2024) Resolved Problems Problem Noted Date Diagnosed Date [...] chronic kidney disease 08/03/2023 08/03/2023 Atherosclerosis of [place] co ronary artery without angina pectoris [...] as of this encounter (statuses as of 09/21/2024) Immunizations Name Administration Dates Next Due COVID-19 mRNA, LNP-s, No Pre serve, 2-Dose Series ([facility]ONi) 08/15/2021,01/31/2021,01/03/2021 COVID-19, LNP-s, No Preserve , Ruslan-sucrose, Ages 12+ (OONi) 03/19/2022 COVID-19, MRNA-LNP, PF, 30 M CG/0.3 mL, 12 YRS AND ABOVE, IM ([facility]) 10/25/2023 Covid-19, Mrna, Lnp-s, Pf, B ivalent, 30 Mcg, IM, 12 yrs and above (OONi) 2022 Pneumococcal Conjugate Vacc, 13 Valent (Prevnar) 01/21/2016 Pneumococcal Conjugate Vacci ne, 20-valent ([id number]) 07/19/2023 Pneumococcal Polysaccharide PPV23 (Pneumovax) 01/13/2011 RSV [...] 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 Not on file Not on file [...] Author No 08/11/2024 8:15 AM YULIANAT Joseluis Zacarias RN * Do you have serious difficulty [...] Care Team (Late st Contact Info) Description 09/22/2024 1:15 PM EST Treatment Radiation Oncology, [address] [address] 09/25/2024 1:15 PM EST Treatment Radiation Oncology, [address] [address] 09/26/2024 1:15 PM EST Treatment Radiation Oncology, [address] [address] 09/27/2024 1:15 PM EST Treatment Radiation Oncology, [address] [address] 09/28/2024 1:15 PM EST Treatment Radiation Oncology, [address] [address] 09/29/2024 1:15 PM EST Treatment Radiation Oncology, [address] [address] 10/02/2024 1:15 PM EST Treatment Radiation Oncology, [address] [address] 10/03/2024 1:15 PM EST Treatment Radiation Oncology, [address] [address] 10/04/2024 1:15 PM EST Treatment Radiation Oncology, [address] [address] 10/06/2024 1:15 PM EST Treatment Radiation Oncology, [address] [address] 10/06/2024 2:00 PM EST Office Visit Dental Medicine, [place] [address] [place] [address] Russel Caceres, [facility] [address] [place] [address] 10/09/2024 1:15 PM EST Treatment Radiation Oncology, [address] [address] 10/10/2024 1:15 PM EST Treatment Radiation Oncology, [address] [address] 10/11/2024 1:15 PM EST Treatment Radiation Oncology, [address] [address] 10/12/2024 1:15 PM EST Treatment Radiation Oncology, [address] [address] 10/13/2024 1:15 PM EST Treatment Radiation Oncology, [address] [address] 10/16/2024 1:15 PM EST Treatment Radiation Oncology, [address] [address] 10/17/2024 1:15 PM EST Treatment Radiation Oncology, [address] [address] 10/18/2024 1:15 PM EST Treatment Radiation Oncology, [address] [address] 10/18/2024 2:20 PM EST Office Visit [address] [phone] David Antunez MD [address] [place] [address] 10/19/2024 1:15 PM EST Treatment Radiation Oncology, [address] [address] 10/20/2024 1:15 PM EST Treatment Radiation Oncology, [address] [address] 10/23/2024 1:15 PM EST Treatment Radiation Oncology, [address] [address] 10/24/2024 1:15 PM EST Treatment Radiation Oncology, [address] [address] 10/25/2024 1:15 PM EST Treatment Radiation Oncology, [address] [address] 2024 1:15 PM EST Treatment Radiation Oncology, [address] [address] 10/27/2024 1:15 PM EST Treatment Radiation Oncology, [address] [address] 10/30/2024 1:15 PM EST Treatment Radiation Oncology, [address] [address] 10/31/2024 1:15 PM EST Treatment Radiation Oncology, [address] [address] 11/14/2024 1:15 PM EST Office Visit [facility] [place] [address] [facility] [address] Supriya Fernandes [facility] [address] [facility] [address] 11/28/2024 10:45 AM EST Office Visit Otolaryngology/Head & Neck/Facial Plastic Surgery [address] [place] [facility] [place] [address] Lexie Aldridge MD [address] [place] [place] [address] 12/21/2024 1:30 PM EST Office Visit Dermatology, [place] [address] [place] [address] Malaika Guzman PA-C [address] [place] [address] 12/22/2024 12:00 PM EST Office Visit Nephrology, [address] [address] Keisha Gunn MD [address] [place] [address] 01/22/2025 1:30 PM EDT PulmDiagnostic Pulmonary Function Lab [facility] [address] [place] [facility] [place] [address] [place], [address] [facility] [place] [address] 01/22/2025 2:00 PM EDT Office Visit Pulmonary Medicine [facility] [address] [facility] [place] [phone] Dominguez Aguilar MD [address] [place] [facility] [place] [address] 02/05/2025 10:00 AM EDT Office Visit Rheumatology, [address] [phone] Rafael Hernandez, PAJackiC [address] [place] [address] 02/06/2025 1:30 PM EDT Office Visit Cardiology, [place] [address] [place] [address] Cherry Warner PA-C [address] [place] [address] Scheduled Procedures Name Priority Associated Diagnoses Date/Ti [...] 01/31/2024, 01/07, 09/02/2022, Additional history exists GFR 03/02/2025 09/01/2024, 08/08, 08/20/2024, Additional history exists Albumin/Creatinine Ratio 03/27/2025 024, [...] this encounter Medical Devices Implanted Type Area Ultrasound Technician Device Identifier Shelf Expiration Date Model / Serial / Lot Mesh Perfix Plug Lg [id number] - [id number] Implanted:Qty : 1 on 02/07/2019 by Jonathan Correia DO at OR [facility] Right: Groin CR BARD : DAVOL 09/04/2023 [id number] / / [id number] Cytal Wndmtx 1lyr [id number](150 Units) - [id number] - [id number] Implanted:Qty : 1 on 08/10/2024 by Lexie Aldridge MD at OR [facility] Left: Leg Upper [employer] [id number] 10/07/2025 [id number] / [id number] / [id number] Cytal Wndmtx 1lyr 7x10cm (70 Units) - [id number] - [id number] Implanted:Qty : 1 on 08/10/2024 by Lexie Aldridge MD at OR [facility] Left: Leg Upper [employer] [id number] 01/05/2026 [id number] / [id number] / [id number] documented as of this encounter Procedures Procedure Name Priority Date/Time Associated Diagnosis Comments RAD ONC ARIA SESSION SUMMARY Routine 09/21/2024 1:36 PM EST documented in this encounter Results * RAD ONC ARIA SESSION SUMMARY (09/21/2024 1:36 PM EST) Course ID C1 ARIA RADIATION ONCOLOGY Course Intent Post-op ARIA RADIATION ONCOLOGY Course Start Date 09/04/2024 12:46 PM ARIA RADIATION ONCOLOGY RAD ONC ARIA SESSION NUMBER 3 ARIA RADIATION ONCOLOGY Course First Treatment Date 09/19/2024 1:24 PM ARIA RADIATION ONCOLOGY Course Last Treatment Date 09/21/2024 1:33 PM ARIA RADIATION ONCOLOGY Course Elapsed Days 2 ARIA RADIATION ONCOLOGY Reference Point ID [id number] ARIA RADIATION ONCOLOGY Reference Point Dosage Given to Date 6 Gy ARIA RADIATION ONCOLOGY Reference Point Session Dosage Given 2 Gy ARIA RADIATION ONCOLOGY Plan ID 10-L Neck ARIA RADIATION ONCOLOGY Plan Name 10-L Neck ARIA RADIATION ONCOLOGY Plan Fractions Treated to Date 3 ARIA RADIATION ONCOLOGY Plan Total Fractions Prescribed 30 ARIA RADIATION ONCOLOGY Plan Prescribed Dose Per Fraction 2 Gy ARIA RADIATION ONCOLOGY Plan Total Prescribed Dose 6,000 cGy ARIA RADIATION ONCOLOGY Plan Primary Reference Point [id number] ARIA RADIATION ONCOLOGY 09/21/2024 1:36 PM EST us No Physician Data Unknown DRESSINGS Final Result ARIA RADIATION ONCOLOGY documented in this encounter Advance Directives Documents on File Type Date Recorded Patient Erp Pm Expl anation Advance Directives and Living Will [...] verbally by patient or by statute hierarchy) [facility] Adult Child Emergency Contact Care Teams Environmental Scientists Relationship Specialty Start Date End Date Fuentes Ashton MD [address] [place] [phone] PCP - General Family Medicine 01/30/22 documented as of this encounter
--- OUTSIDE RECORDS SUMMARY | 2024-09-30 18:03 | External Medical Summary ---
Author Name Unknown Address Unknown Organization K[facility] - [address] [place] [address] Laboratory Report Ordering Provider Test Date Status ERNESTO OATES 09/26/2024 15:01:21 Final Observation Date Value Abnormality Reference (Units ) Status WBC, Total 09/26/2024 15:01:21 5.75 4.00-10.80 (K/uL) Final RBC 09/26/2024 15:01:21 3.31 4.50-5.25 (M/uL) Final Hemoglobin 09/26/2024 15:01:21 11.2 Below low normal 14.0-16.8 (g/dL) Final HCT 09/26/2024 15:01:21 36.1 Below low normal 40.0-48.4 (%) Final MCV 09/26/2024 15:01:21 109.1 82.0-99.5 (fL) Final MCH 09/26/2024 15:01:21 33.8 27.0-34.0 (pg) Final MCHC 09/26/2024 15:01:21 31.0 32.0-36.0 (g/dL) Final RDW 09/26/2024 15:01:21 15.7 11.5-15.5 (%) Final Platelets 09/26/2024 15:01:21 114 Below low normal 140-400 (K/uL) Final MPV 09/26/2024 15:01:21 11.9 6.6-11.1 (fL) Final Nucleated erythrocytes/100 leukocytes [Ratio] in Blood by Automated count 09/26/2024 15:01:21 0 <=0 (/100 WBCs) Final Performing Location [facility] - [address] [place] [address]
--- OUTSIDE RECORDS SUMMARY | 2024-09-30 18:03 | External Medical Summary ---
Author Name Unknown Address Unknown Organization K1F:[facility] - [address] [place] [address] Laboratory Report Ordering Provider Test Date Status ERNESTO OATES 09/26/2024 15:01:21 Final Observation Date Value Abnormality Reference (Units ) Status SYNC LEUKOCYTES IN BLOOD BY AUTOMATED COUNT 09/26/2024 15:01:21 5.75 4.00-10.80 (K/uL) Final Segs 09/26/2024 15:01:21 70.8 40.0-75.0 (%) Final Lymphs % 09/26/2024 15:01:21 19.0 18.0-42.0 (%) Final Monos 09/26/2024 15:01:21 5.7 1.0-11.0 (%) Final Eosinophils 09/26/2024 15:01:21 0.5 0.0-6.0 (%) Final Basos 09/26/2024 15:01:21 0.2 0.0-2.0 (%) Final Immature Granulocyte, Percent 09/26/2024 15:01:21 3.8 Above high normal 0.0-2.0 (%) Final Absolute Segs 09/26/2024 15:01:21 4.07 1.80-7.70 (K/uL) Final Lymphs, absolute 09/26/2024 15:01:21 1.09 1.00-4.80 (K/ul) Final Monos, Abs 09/26/2024 15:01:21 0.33 0.00-1.10 (K/uL) Final Eos, Abs 09/26/2024 15:01:21 0.03 0.00-0.70 (K/uL) Final Basos, Abs 09/26/2024 15:01:21 0.01 0.00-0.20 (K/uL) Final Immature Granulocytes, Number 09/26/2024 15:01:21 0.22 Above high normal 0.00-0.20 (K/uL) Final Performing Location [facility] - [address] [place] [address]
--- OUTSIDE RECORDS SUMMARY | 2024-09-30 18:03 | External Medical Summary | Summary of Care ---
Author Name Unknown Organization [facility] Address [address] [place] [address] Phone [phone] Care Team Providers Care Water Main Installer Helper Name Role Phone Fuentes Ashton MD Primary Care Provider [phone] Reason for Visit * Reason Comments Weekly Check L neck Encounter Details Date Type Department Care Team (Late st Contact Info) Description 09/26/2024 1:30 PM EST Documentation Radiation Oncology, [facility] [address] [place] [address] IovoliMansoor MD [address] [place] [address] Arrived Allergies Active Allergy Reactions Criticality Noted Date Comments Aztreonam Hives Medium 10/11/2019 Cephalosporins Rash 05/24/2017 Tolerated cefazolin during August 2024 admission Chlorhexidine Hives,Rash High 01/02/2022 Full body red rash; "skin peeled completely off" Ciprofloxacin Diarrhea Medium 01/28/2015 Iodinated Contrast Media Abdominal pain High 019 Acute kidney failure Levofloxacin Rash Low 07/28/2019 documented as of this encounter (statuses as of 09/26/2024) Medications Apixaban 5 MG Oral Tablet (Eliquis)Indicati [...] Release (PriLOSEC)Indicat ions:Gastroesopha geal reflux disease without esophagitis,USP (current) use 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 Take by [...] Inhalation Aerosol Powder Breath ActivatedIndicati ons:COPD, moderate ([facility]) Inhale 2 Puffs by mouth every 4 hours as needed for Shortness of Breath. 1 Each 11 07/06/20 24 Active Additional Information Patient not taking.Reported on 09/26/2024 Albuterol Sulfate (2.5 MG/3ML) 0.083% Inhalation Nebulization Solution (Proventil)Indica tions:COPD, group C, by GOLD 2017 classification ([facility]) Inhale 1 Vial via nebulizer [...] for 1 hour. 100 mL 12 09/15/20 Active Vitamin B-12 1000 MCG Oral Tablet [...] as of this encounter (statuses as of 09/26/2024) Active Problems Problem Noted Date Diagnosed Date [...] from 2018 Atherosclerotic heart diseas e of [place] coronary artery without angina pectoris 05/31/2020 Nuclear [...] neoplasm) 0 03/09/2018 Overview (03/09/2018): MRI 02/23 USP (current) use 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 Steroid-induced diabetes [...] as of this encounter (statuses as of 09/26/2024) Resolved Problems Problem Noted Date Diagnosed Date [...] chronic kidney disease 08/03/2023 08/03/2023 Atherosclerosis of [place] co ronary artery without angina pectoris 02/01/2023 [...] 05/31/2020 01/05/2024 Fever of unknown origin 10/03/2019 1203/2019 Cachexia 08/30/2019 05/31/2020 Hypertensive heart disease w [...] as of this encounter (statuses as of 09/26/2024) Immunizations Name Administration Dates Next Due COVID-19 mRNA, LNP-s, No Pre serve, 2-Dose Series (Civo) 08/15/2021,01/31/2021,01/03/2021 COVID-19, LNP-s, No Preserve , Ruslan-sucrose, Ages 12+ (Pfizer) 03/19/2022 COVID-19, MRNA-LNP, PF, 30 M CG/0.3 mL, 12 YRS AND ABOVE, IM ([facility]) 10/25/2023 Covid-19, Mrna, Lnp-s, Pf, B ivalent, 30 Mcg, IM, 12 yrs and above (Civo) 2022 Pneumococcal Conjugate Vacc, 13 Valent (Prevnar) 01/21/2016 Pneumococcal Conjugate Vacci ne, 20-valent ([id number]) 07/19/2023 Pneumococcal Polysaccharide PPV23 (Pneumovax) 01/13/2011 RSV [...] End Date 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 Not on file Not on file Not on file documented as of this encounter Last Filed Vital Signs Vital Sign Reading Time Taken Comments Blood Pressure 119/82 09/26/2024 1:41 PM EST Pulse 65 09/26/2024 1:41 PM EST Temperature 36.5 C (97.7 F) 09/26/2024 1:41 PM ES T Respiratory Rate 16 09/26/2024 1:41 PM EST Oxygen Saturation 100% 09/26/2024 1:41 PM EST Inhaled Oxygen Concentration - - Weight 70.6 kg (155 lb 11.2 oz) 09/26/2024 1:41 PM EST Height - - Body Mass Index 24.38 08/20/2024 6:02 AM EDT documented in this encounter Functional Status * [...] Joseluis Brothers RN documented in this encounter Nursing Notes * Freya Mackenzie CMA - 09/26/2024 1:42 PM EST Chief Complaint Patient presents with Weekly Check L neck Patient reports with for weekly check. He has completed 6 fractions to the left neck so far. He denies any questions or concerns for today's visit. reports they are heading to the ER after today's visit for a lesion on his back that he is [facility]. Patient was instructed to not get up on the exam table/exam chair until directed and assisted by their provider; patient is to remain seated in the chair/wheelchair/exam table/exam chair for fall prevention and safety reasons. Patient is aware to have assistance to step down off exam table/exam chair with personnel. Patient voiced full comprehension of instructions. documented in this encounter Miscellaneous Notes * Radiation OTV Note - Mansoor Watson MD - 09/26/2024 2:15 PM EST RADIATION ONCOLOGY WEEKLY ON TREATMENT VISIT NOTE Date: 09/26/2024 Patient: Kennedy Davis HISTORY OF PRESENT ILLNESS Mr. Davis is a 78 year old male with a left neck cSCC, [id number] Stage III (diagnosed 06/2024). He is s/p Mohs surgery (5 total stages) with Dr. Fernandes completed 07/26/2024 and 07/31/2024 followed by [facility] local excision, left neck dissection, and reconstruction with Dr. Aldridge on 08/10/2024. Pathology from initial Mohs surgeries showed positive margins, extensive intraneural and perineural invasion of large caliber nerves, and tumor invasion into SCM muscle. No residual tumor or LN involvement identified on subsequent surgery with neck dissection. Patient was recommended adjuvant radiation at the [facility]. Concurrent chemotherapy: no RADIATION TREATMENT Lab Results Component Value Date/Time ARIA PLAN ID 10-L Neck 09/26/2024 01:36 PM ARIA COURSE INTENT Post-op 09/26/2024 01:36 PM ARIA PLAN TOTAL PRESCRIBED DOSE 6,000 09/26/2024 01:36 PM ARIA COURSE ELAPSED DAYS 7 09/26/2024 01:36 PM ARIA COURSE FIRST TREATMENT DATE 09/19/2024 1:24 PM 09/26/2024 01:36 PM ARIA COURSE LAST TREATMENT DATE 09/26/2024 1:33 PM 09/26/2024 01:36 PM ARIA PLAN FRACTIONS TREATED TO DATE 6 09/26/2024 01:36 PM ARIA PLAN TOTAL FRACTIONS PRESCRIBED 30 09/26/2024 01:36 PM SUBJECTIVE Patient notes no radiation side effects. He was told to go to the ED by one [facility] today due to new tunneling of his chronic back lesion. OBJECTIVE Examination reveals no radiation-induced changes. Healing post-op changes along left neck. ECOG Performance Status: 1 = Restricted in physically strenuous activity, ambulatory and able to dowork of light nature VITAL SIGNS: BP 119/82 (BP Site: Left Arm, BP Position: Sitting, BP Cuff Size: Regular) | Pulse 65 | Temp 36.5 C (97.7 F) (Temporal Artery) | Resp 16 | Wt 70.6 kg (155 lb 11.2 oz) | SpO2 100% | BMI 24.38 kg/m | BSA 1.83 m Wt Readings from Last 5 Encounters: 09/26/24 70.7 kg (155 lb 12.8 oz) 09/26/24 70.6 kg (155 lb 11.2 oz) 09/05/24 68.7 kg (151 lb 8 oz) 08/31/24 68.6 kg (151 lb 3.2 oz) 08/25/24 67.5 kg (148 lb 12.8 oz) IMAGING/LAB RESULTS: Weekly localization images, patient setup, dosimetry, and patient labs were reviewed by myself. Results for orders placed or performed in visit on 09/01/24 CBC Result Value Ref Range WBC 7.61 4.00 - 10.80 K/uL RBC 2.93 4.50 - 5.25 M/uL HGB 9.9 (L) 14.0 - 16.8 g/dL HCT 32.9 (L) 40.0 - 48.4 % MCV 112.3 82.0 - 99.5 fL MCH 33.8 27.0 - 34.0 pg MCHC 30.1 32.0 - 36.0 g/dL RDW 18.2 11.5 - 15.5 % PLT 208 140 - 400 K/uL MPV 11.5 6.6 - 11.1 fL nRBCs 0 <=0 /100 WBCs Results for orders placed or performed during the hospital encounter of 08/10/24 BASIC METABOLIC PANEL Result Value Ref Range BUN 39 (H) 6 - 20 mg/dL CREATININE 3.3 (H) 0.6 - 1.2 mg/dL EGFR 18 (L) >=60 mL/min SODIUM 137 135 - 146 mmol/L POTASSIUM 4.9 3.5 - 5.1 mmol/L CHLORIDE 107 98 - 107 mmol/L CO2 19 (L) 22 - 32 mmol/L ANION GAP 11 7 - 15 mmol/L GLUCOSE 78 70 - 120 mg/dL CALCIUM 8.5 8.4 - 10.2 mg/dL Acute Radiation Toxicity (CTCAE version 5.0): Dermatitis radiation: no Dry mouth: no Mucositis: no Esophagitis: no Nausea: no Vomiting: no Cystitis non-infective: no Proctitis: no Diarrhea: no Weight loss: no Fatigue: grade 1 (fatigue relieved by rest) Other (specify): N/A ASSESSMENT/PLAN: Tolerating treatment well with minimal radiation side effects. Continue radiation therapy. Mansoor Watson MD Radiation Oncology, [address] [address] documented in this encounter Plan of Treatment Upcoming Encounters Date Type Department Care Team (Late st Contact Info) Description 09/27/2024 1:15 PM EST Treatment Radiation Oncology, [address] [address] 09/28/2024 1:15 PM EST Treatment Radiation Oncology, [address] [address] 09/29/2024 1:15 PM EST Treatment Radiation Oncology[address] [address] 10/02/2024 1:15 PM EST Treatment Radiation Oncology, [address] [address] 10/03/2024 1:15 PM EST Treatment Radiation Oncology, [address] [address] 10/04/2024 1:15 PM EST Treatment Radiation Oncology[address] [address] 10/06/2024 1:15 PM EST Treatment Radiation Oncology, [address] [address] 10/06/2024 2:00 PM EST Office Visit Dental Medicine, [address] [place] [address] Russel Caceres, DMD [address] [place] [address] 10/09/2024 1:15 PM EST Treatment Radiation Oncology, [address] [address] 10/10/2024 1:15 PM EST Treatment Radiation Oncology, [address] [address] 10/11/2024 1:15 PM EST Treatment Radiation Oncology, [address] [address] 10/12/2024 1:15 PM EST Treatment Radiation Oncology, [address] [address] 10/13/2024 1:15 PM EST Treatment Radiation Oncology, [address] [address] 10/16/2024 1:15 PM EST Treatment Radiation Oncology, [address] [address] 10/17/2024 1:15 PM EST Treatment Radiation Oncology, [address] [address] 10/18/2024 1:15 PM EST Treatment Radiation Oncology, [address] [address] 10/18/2024 2:20 PM EST Office Visit [address] [place] [phone] David Antunez MD [address] [facility] [place] [address] 10/19/2024 1:15 PM EST Treatment Radiation Oncology, [address] [address] 10/20/2024 1:15 PM EST Treatment Radiation Oncology, [address] [place] [address] 10/23/2024 1:15 PM EST Treatment Radiation Oncology, [address] [place] [address] 10/24/2024 1:15 PM EST Treatment Radiation Oncology, [address] [place] [address] 10/25/2024 1:15 PM EST Treatment Radiation Oncology, [address] [place] [address] 2024 1:15 PM EST Treatment Radiation Oncology, [address] [place] [address] 10/27/2024 1:15 PM EST Treatment Radiation Oncology, [address] [place] [address] 10/30/2024 1:15 PM EST Treatment Radiation Oncology, [address] [place] [address] 10/31/2024 1:15 PM EST Treatment Radiation Oncology, [address] [address] 11/14/2024 1:15 PM EST Office Visit MOHS Surgery [facility] [address] [place] [address] Supriya Fernandes MD [address] [place] [address] 11/28/2024 10:45 AM EST Office Visit Otolaryngology/Head & Neck/Facial Plastic Surgery [address] [place] [facility] [place] [address] Lexie Aldridge MD [address] [place] [facility] [place] [address] 12/21/2024 1:30 PM EST [facility] [address] [place] [address] Malaika Guzman PA-C [address] [place] [address] 12/22/2024 12:00 PM EST Office Visit Nephrology, [address] [place] [address] Keisha Gunn MD [address] [place] [address] 01/22/2025 1:30 PM EDT PulmDiagnostic Pulmonary Function Lab [facility] [address] [facility] [place] [address] [place], [address] [facility] [place] [address] 01/22/2025 2:00 PM EDT Office Visit Pulmonary Medicine [facility] [address] [facility] [place] [phone] Dominguez Aguilar MD [address] [facility] [place] [address] 02/05/2025 10:00 AM EDT Office Visit Rheumatology, [address], [place] [address] Rafael Hernandez, PAJackiC [address] [facility] [place] [address] 02/06/2025 1:30 PM EDT Office [address]iology, [address] [address] Cherry Warner, RAJEEV [address] [facility] [address] Scheduled Procedures Name Priority Associated Diagnoses Date/Ti [...] Additional history exists Zoster Vaccines Completed 05/05/2021, 050 05/2021, 03/03/2021 Alpha-1 Antitrypsin Completed 05/19/2021 Pneumococcal [...] this encounter Medical Devices Implanted Type Area Swing Grinder Device Identifier Shelf Expiration Date Model / Serial / Lot Mesh Perfix Plug [id number] [id number] - [id number] Implanted:Qty : 1 on 02/07/2019 by Jonathan Correia DO at OR [facility] Right: Groin CR BARD : DAVOL 09/04/2023 [id number] / / [id number] Cytal Wndmtx 1lyr 10o90na(150 Units) - [id number] - [id number] Implanted:Qty : 1 on 08/10/2024 by Lexie Aldridge MD at OR [facility] Left: Leg Upper [employer] [id number] 10/07/2025 [id number] / [id number] / [id number] Cytal Wndmtx 1lyr 7x10cm (70 Units) - [id number] - [id number] Implanted:Qty : 1 on 08/10/2024 by Lexie Aldridge MD at OR [facility] Left: Leg Upper [employer] [id number] 01/05/2026 [id number] / [id number] / [id number] documented as of this encounter Procedures Procedure Name Priority Date/Time Associated Diagnosis Comments RAD ONC ARIA SESSION SUMMARY Routine 09/26/2024 1:36 PM EST documented in this encounter Results * RAD ONC ARIA SESSION SUMMARY (09/26/2024 1:36 PM EST) Course ID C1 ARIA RADIATION ONCOLOGY Course Intent Post-op ARIA RADIATION ONCOLOGY Course Start Date 09/04/2024 12:46 PM ARIA RADIATION ONCOLOGY RAD ONC ARIA SESSION NUMBER 6 ARIA RADIATION ONCOLOGY Course First Treatment Date 09/19/2024 1:24 PM ARIA RADIATION ONCOLOGY Course Last Treatment Date 09/26/2024 1:33 PM ARIA RADIATION ONCOLOGY Course Elapsed Days 7 ARIA RADIATION ONCOLOGY Reference Point ID [id number] ARIA RADIATION ONCOLOGY Reference Point Dosage Given to Date 12 Gy ARIA RADIATION ONCOLOGY Reference Point Session Dosage Given 2 Gy ARIA RADIATION ONCOLOGY Plan ID 10-L Neck ARIA RADIATION ONCOLOGY Plan Name 10-L Neck ARIA RADIATION ONCOLOGY Plan Fractions Treated to Date 6 ARIA RADIATION ONCOLOGY Plan Total Fractions Prescribed 30 ARIA RADIATION ONCOLOGY Plan Prescribed Dose Per Fraction 2 Gy ARIA RADIATION ONCOLOGY Plan Total Prescribed Dose 6,000 cGy ARIA RADIATION ONCOLOGY Plan Primary Reference Point [id number] ARIA RADIATION ONCOLOGY 09/26/2024 1:36 PM EST us No Physician Data Unknown DRESSINGS Final Result ARIA RADIATION ONCOLOGY documented in this encounter Advance Directives Documents on File Type Date Recorded Patient Gas Maker Expl anation Advance Directives and Living Will [...] [place] Adult Child Emergency Contact Care Teams Water Main Installer Helper Relationship Specialty Start Date End Date Fuentes Ashton MD [address] [place] [address] PCP - General Family Medicine 01/30/22 documented as of this encounter
--- OUTSIDE RECORDS SUMMARY | 2024-09-30 18:03 | External Medical Summary | Summary of Care ---
Author Name Unknown Organization [facility] Address [address] [place] [address] Phone [phone] Care Team Providers Care Income Tax Analyst Name Role Phone Fuentes Ashton MD Primary Care Provider [phone] Encounter Details Date Type Department Care Team (Late st Contact Info) Description 09/22/2024 Orders Only Radiation Oncology, [facility] [address] [place] [address] IovoliMansoor MD [address] [place] [address] Allergies Active Allergy Reactions Criticality Noted Date Comments Aztreonam Hives Medium 10/11/2019 Cephalosporins Rash 05/24/2017 Tolerated cefazolin during August 2024 admission Chlorhexidine Hives,Rash High 01/02/2022 Full body red rash; "skin peeled completely off" Ciprofloxacin Diarrhea Medium 01/28/2015 Iodinated Contrast Media Abdominal pain High 019 Acute kidney failure Levofloxacin Rash Low 07/28/2019 documented as of this encounter (statuses as of 09/22/2024) Medications Apixaban 5 MG Oral Tablet (Eliquis)Indicati [...] Inhalation Aerosol Powder Breath ActivatedIndicati ons:COPD, moderate ([facility]) Inhale 2 Puffs by mouth every 4 hours as needed for Shortness of Breath. 1 Each 11 07/06/20 24 Active Additional Information Patient not taking.Reported on 08/25/2024 Albuterol Sulfate (2.5 MG/3ML) 0.083% Inhalation Nebulization Solution (Proventil)Indica tions:COPD, group C, by GOLD 2017 classification (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 Steroid-induced [...] as of this encounter (statuses as of 09/22/2024) Resolved Problems Problem Noted Date Diagnosed Date [...] chronic kidney disease 08/03/2023 08/03/2023 Atherosclerosis of [place] co ronary artery without angina pectoris 02/01/2023 [...] as of this encounter (statuses as of 09/22/2024) Immunizations Name Administration Dates Next Due COVID-19 mRNA, LNP-s, No Pre serve, 2-Dose Series ([facility] [place]) 08/15/2021,01/31/2021,01/03/2021 COVID-19, LNP-s, No Preserve , Ruslan-sucrose, Ages 12+ ([facility] [place]) 03/19/2022 COVID-19, MRNA-LNP, PF, 30 M CG/0.3 mL, 12 YRS AND ABOVE, IM ([facility]) 10/25/2023 Covid-19, Mrna, Lnp-s, Pf, B ivalent, 30 Mcg, IM, 12 yrs and above ([facility] [place]) 2022 Pneumococcal Conjugate Vacc, 13 Valent (Prevnar) 01/21/2016 Pneumococcal Conjugate Vacci ne, 20-valent ([id number]) 07/19/2023 Pneumococcal Polysaccharide PPV23 (Pneumovax) 01/13/2011 RSV [...] Job 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 Not on file Not on file [...] Care Team (Late st Contact Info) Description 09/25/2024 1:15 PM EST Treatment Radiation Oncology, [address] [address] 09/25/2024 1:30 PM EST Documentation Radiation Oncology, [address] [address] Mansoor Watson MD [address] [place] [phone] 09/26/2024 1:15 PM EST Treatment Radiation Oncology, [address] [address] 09/27/2024 1:15 PM EST Treatment Radiation Oncology, [address] [address] 09/28/2024 1:15 PM EST Treatment Radiation Oncology, [address] [address] 09/29/2024 1:15 PM EST Treatment Radiation Oncology, [address] [address] 10/02/2024 1:15 PM EST Treatment Radiation Oncology, [address] [address] 10/03/2024 1:15 PM EST Treatment Radiation Oncology, [address] [address] 10/04/2024 1:15 PM EST Treatment Radiation Oncology, [address] [address] 10/06/2024 1:15 PM EST Treatment Radiation Oncology, [address] [address] 10/06/2024 2:00 PM EST [facility] [address] [place] [address] Russel Caceres, [facility] [address] [place] [address] 10/09/2024 1:15 PM EST Treatment Radiation Oncology, [address] [address] 10/10/2024 1:15 PM EST Treatment Radiation Oncology, [address] [address] 10/11/2024 1:15 PM EST Treatment Radiation Oncology, [address] [address] 10/12/2024 1:15 PM EST Treatment Radiation Oncology, [address] [place] [address] 10/13/2024 1:15 PM EST Treatment Radiation Oncology, [address] [address] 10/16/2024 1:15 PM EST Treatment Radiation Oncology, [address] [address] 10/17/2024 1:15 PM EST Treatment Radiation Oncology, [address] [address] 10/18/2024 1:15 PM EST Treatment Radiation Oncology, [address] [address] 10/18/2024 2:20 PM EST Office Visit [address] [phone] David Antunez MD [address] [place] [address] 10/19/2024 1:15 PM EST Treatment Radiation Oncology, [address] [address] 10/20/2024 1:15 PM EST Treatment Radiation Oncology, [address] [address] 10/23/2024 1:15 PM EST Treatment Radiation Oncology, [address] [address] 10/24/2024 1:15 PM EST Treatment Radiation Oncology, [address] [address] 10/25/2024 1:15 PM EST Treatment Radiation Oncology, [address] [address] 2024 1:15 PM EST Treatment Radiation Oncology, [address] [address] 10/27/2024 1:15 PM EST Treatment Radiation Oncology, [address] [address] 10/30/2024 1:15 PM EST Treatment Radiation Oncology, [address] [address] 10/31/2024 1:15 PM EST Treatment Radiation Oncology, [address] [address] 11/14/2024 1:15 PM EST Office Visit [facility] [address] [place] [address] Supriya Fernandes MD [address] [place] [address] 11/28/2024 10:45 AM EST Office Visit Otolaryngology/Head & Neck/Facial Plastic Surgery [address] [facility] [address] Lexie Aldridge MD [address] [place] [address] 12/21/2024 1:30 PM EST Office Visit Dermatology, [address] [place] [address] [place] [address] Malaika Guzman PA-C [address] [place] [address] 12/22/2024 12:00 PM EST Office Visit Nephrology, [address] [address] Keisha Gunn MD [address] [place] [address] 01/22/2025 1:30 PM EDT PulmDiagnostic Pulmonary Function Lab [facility] [address] [facility] [place] [address] [place], [address] [facility] [place] [address] 01/22/2025 2:00 PM EDT Office Visit Pulmonary Medicine [facility] [address] [facility] [place] [phone] Dominguez Aguilar MD [address] [facility] [place] [address] 02/05/2025 10:00 AM EDT Office Visit Rheumatology, [address] [address] Rafael Hernandez, PA-C [address] [place], [place] [address] 02/06/2025 1:30 PM EDT Office Visit Cardiology, [address] [place] [address] [place] Warner PA-C [address] [place] [phone] Scheduled Procedures Name Priority Associated Diagnoses Date/Ti [...] 03/14/2019, Additional history exists HbA1c 08/02/2024 01/31/2024, 11/12/2022, 05/18/2023, Additional history exists TSH 01/30/2025 01/31/2024, [...] this encounter Medical Devices Implanted Type Area Senior Climate Advisor Device Identifier Shelf Expiration Date Model / Serial / Lot Mesh Perfix Plug [id number] [id number] - [id number] Implanted:Qty : 1 on 02/07/2019 by Jonathan Correia DO at OR [facility] Right: Groin CR BARD : DAVOL 09/04/2023 [id number] / / [id number] Cytal Wndmtx 1lyr 55a87hi(150 Units) - [id number] - [id number] Implanted:Qty : 1 on 08/10/2024 by Lexie Aldridge MD at OR [facility] Left: Leg Upper [employer] [id number] 10/07/2025 [id number] / [id number] / [id number] Cytal Wndmtx 1lyr 7x10cm (70 Units) - [id number] - [id number] Implanted:Qty : 1 on 08/10/2024 by Lexie Aldridge MD at OR [facility] Left: Leg Upper [employer] [id number] 01/05/2026 [id number] / [id number] / [id number] documented as of this encounter Procedures Procedure Name Priority Date/Time Associated Diagnosis Comments RAD ONC ARIA SESSION SUMMARY Routine 09/22/2024 1:29 PM EST documented in this encounter Results * RAD ONC ARIA SESSION SUMMARY (09/22/2024 1:29 PM EST) Course ID [id number] ARIA RADIATION ONCOLOGY Course Intent Post-op ARIA RADIATION ONCOLOGY Course Start Date 09/04/2024 12:46 PM ARIA RADIATION ONCOLOGY RAD ONC ARIA SESSION NUMBER 4 ARIA RADIATION ONCOLOGY Course First Treatment Date 09/19/2024 1:24 PM [facility]A RADIATION ONCOLOGY Course Last Treatment Date 09/22/2024 1:26 PM ARIA RADIATION ONCOLOGY Course Elapsed Days 3 ARIA RADIATION ONCOLOGY Reference Point ID [id number] ARIA RADIATION ONCOLOGY Reference Point Dosage Given to Date 8 Gy ARIA RADIATION ONCOLOGY Reference Point Session Dosage Given 2 Gy [facility]A RADIATION ONCOLOGY Plan ID 10-L Neck ARIA RADIATION ONCOLOGY Plan Name 10-L Neck ARIA RADIATION ONCOLOGY Plan Fractions Treated to Date 4 ARIA RADIATION ONCOLOGY Plan Total Fractions Prescribed 30 ARIA RADIATION ONCOLOGY Plan Prescribed Dose Per Fraction 2 Gy ARIA RADIATION ONCOLOGY Plan Total Prescribed Dose 6,000 cGy ARIA RADIATION ONCOLOGY Plan Primary Reference Point [id number] ARIA RADIATION ONCOLOGY 09/22/2024 1:29 PM EST us No Physician Data Unknown DRESSINGS Final Result ARIA RADIATION ONCOLOGY documented in this encounter Advance Directives Documents on File Type Date Recorded Patient Slasher Hand Expl anation Advance Directives and Living Will [...] verbally by patient or by statute hierarchy) [facility] Adult Child Emergency Contact Care Teams Income Tax Analyst Relationship Specialty Start Date End Date Fuentes Ashton MD [address] [place] [address] PCP - General Family Medicine 01/30/22 documented as of this encounter
--- OUTSIDE RECORDS SUMMARY | 2024-09-30 18:03 | External Medical Summary | Summary of Care ---
Author Name Unknown Organization [facility] Address [address] [place] [address] Phone [phone] Care Team Providers Care Oxyacetylene Welder Name Role Phone Fuentes Ashton MD Primary Care Provider [phone] Reason for Visit * Evaluate & Treat - Unlimited Visits (Within 3 days (urgent)) - Authorized Specialty Diagnoses / Procedures Referred By Contac t Referred To Contact Otolaryngology Diagnoses Squamous cell carcinoma of neck Supriya Fernandes MD [address] [place] [address] Phone: tel: fax: Lexie Aldridge MD [address] [place] [address] Phone: tel: fax: Referral ID Status Reason Start Date Expiration Date Visits Requested Visits Authorized [id number] Authorized Specialty Services Required 07/31/2024 02/06/[phone] Encounter Details Date Type Department Care Team (Late st Contact Info) Description 09/15/2024 1:45 PM EST Office Visit Otolaryngology/Head & Neck/Facial Plastic Surgery [address] [place] [address] Lexie Aldridge MD [address] [place] [address] SCC (squamous cell carcinoma)*; 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; S/P split thickness skin graft; S/P flap graft Allergies Active Allergy Reactions Criticality Noted Date [...] Release (PriLOSEC)Indicat ions:Gastroesopha geal reflux disease without esophagitis,assisted (current) use 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 Take by [...] Inhalation Aerosol Powder Breath ActivatedIndicati ons:COPD, moderate ([facility]) Inhale 2 Puffs by mouth every 4 hours as needed for Shortness of Breath. 1 Each 07/06/20 24 Active Additional Information Patient not taking.Reported on 08/25/2024 Albuterol Sulfate (2.5 MG/3ML) 0.083% Inhalation Nebulization Solution (Proventil)Indica tions:COPD, group C, by GOLD 2017 classification ([facility]) Inhale 1 Vial via nebulizer every 4 [...] 4 4:14 PM EST 09/15/20 24 Active Folic Acid 1 MG Oral [...] from 2018 Atherosclerotic heart diseas e of [place] coronary artery without angina pectoris 05/31/2020 Nuclear [...] neoplasm) 0 03/09/2018 Overview (03/09/2018): MRI 02/23 assisted (current) use 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 08/03/2023 08/03/2023 Atherosclerosis of [place] co ronary artery without angina pectoris 02/01/2023 [...] failure 06/26/2018 02/06/2022 Small vessel vasculitis 06/26/2018 08/07/2018 Acute hemodialysis patient 06/26/2018 0 07/29/2018 Septic [...] mRNA, LNP-s, No Pre serve, 2-Dose Series ([employer] [facility]) 08/15/2021,01/31/2021,01/03/2021 COVID-19, LNP-s, No Preserve , Ruslan-sucrose, Ages 12+ ([employer] [facility]) 03/19/2022 COVID-19, MRNA-LNP, PF, 30 M CG/0.3 mL, 12 YRS AND ABOVE, IM ([facility]) 10/25/2023 Covid-19, Mrna, Lnp-s, Pf, B ivalent, 30 Mcg, IM, 12 yrs and above ([employer] [facility]) 2022 Pneumococcal Conjugate Vacc, 13 Valent (Prevnar) 01/21/2016 Pneumococcal Conjugate Vacci ne, 20-valent ([id number]) 07/19/2023 Pneumococcal Polysaccharide PPV23 (Pneumovax) 01/13/2011 RSV [...] Former Cigarettes 1 1 1 965 - 1966 Smokeless Tobacco: Never Comments:quit smoking in the 1960 Alcohol Use Standard Drinks/Week Comments Yes 0 [...] Job End Date 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 INTERVAL HISTORY: Here for wound recheck. No issues since last seen. Patient Active Problem List Diagnosis Essential hypertension Gastroesophageal reflux disease without esophagitis HTN, goal below 140/90 Dyslipidemia, goal LDL below 70 Erythema nodosum Acquired hypothyroidism Mediastinal lymphadenopathy Spinal stenosis of lumbar region with neurogenic claudication assisted (current) use 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 Steroid-induced diabetes (HCC) IPMN (intraductal papillary mucinous neoplasm) 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HCC) History of acute tubular necrosis Paroxysmal atrial fibrillation (HCC) Senile osteoporosis Vitamin D deficiency Chronic anticoagulation CKD (chronic kidney disease) stage 4, GFR 15-29 ml/min (HCC) Atherosclerotic heart disease of [place] coronary artery without angina pectoris Atherosclerosis of abdominal aorta (HCC) COPD, moderate (HCC) Telangiectasias 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) Atherosclerosis of renal artery (HCC) Chronic intestinal vascular insufficiency (HCC) History of sepsis Heart failure (HCC) Cat bite Chronic heart failure with preserved ejection fraction (HFpEF) ([facility]) Iron deficiency anemia Hypocalcemia 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) 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 ([facility]) COPD, group B, by GOLD 2017 classification ([facility]) Chronic gout due to renal impairment of multiple sites without tophus SCC (squamous cell carcinoma) Post-operative state Postoperative anemia due to acute blood loss Compression fracture of L2 vertebra with routine healing Exposure to potentially hazardous substance Gout Gynecomastia Nuclear senile cataract Posterior subcapsular polar senile cataract Prediabetes Spondylolisthesis of lumbar region Acute dermatitis Lumbar stenosis with neurogenic claudication Hematoma of left chest wall LIZZ (acute kidney injury) ([facility]) Past Medical History: Diagnosis Date Abdominal aortic aneurysm (AAA) without rupture ([facility]) 07/11/2015 09/01/16: 3.78cm - repeat 1 yr 01/27/16: US: 3.87cm AAA - repeat 6 months 07/11/15: sts he had an US in the past - will check records Acute pancreatitis 03/09/2018 LIZZ (acute kidney injury) ([facility]) 06/26/2018 Aspergillosis ([facility]) 07/17/2019 history of Aspergillosis on the note on 3.[address] and AMP ATN (acute tubular necrosis) ([facility]) Bilateral pneumonia 08/08/2019 Acute, resolved? 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 Community acquired pneumonia 05/30/2019 COPD (chronic obstructive pulmonary disease) ([facility]) Diet-controlled diabetes mellitus ([facility]) 03/03/2021 Encounter for long-term (current) use of medications 09/06/2018 Enteritis 10/09/2017 Erythema nodosum Esophageal reflux Heart failure with acute decompensation, type unknown ([facility]) 06/07/2019 Herpes zoster without mention of complication History of pneumonia 06/22/2018 B/l PNA 06/2018 Hyperkalemia 12/16/2021 Hypertensive heart disease with heart failure and stage 5 chronic kidney disease, not on chronic dialysis ([facility]) 08/22/2019 ckd 4 ? Hypoglycemia associated with type 2 diabetes mellitus ([facility]) 07/21/2019 Moderate protein-calorie malnutrition ([facility]) 01/06/2021 Protein-calorie malnutrition ([facility]) 06/23/2019 Pure hypercholesterolemia Sepsis (HCC) acute Severe malnutrition (HCC) 02/27/2018 Stage II pressure ulcer of left buttock (HCC) 02/06/2022 Tinea cruris 09/28/2017 Unspecified essential hypertension Uveitis OS Past Surgical History: Procedure Laterality Date ADJACENT TISSUE TRANS >10SQCM TRUNK Left 08/10/2024 ADJACENT TISSUE TRANSFER TRUNK 10.1 TO 30SQ CM performed by Sin Tovar DO at [place] [facility] ANESTH, LUMBAR SPINE/CORD SURGERY 2017 L2-L5 BIOPSY OF NECK/CHEST N/A 08/10/2024 EXCISION SOFT TISSUE NECK THORAX performed by Lexie Aldridge MD at [place] [facility] BRONCHOSCOPY, DX W/ EBUS, 1-2 NODES N/A 12/09/2017 BRONCHOSCOPY, RIGID OR FLEXIBLE, INCLUDING FLUOROSCOPIC GUIDANCE, WHEN PERFORMED; WITH EBUS GUIDED TRANSTRACHEAL AND/OR TRANSBRONCHIAL SAMPLING (EG, ASPIRATION[S]/BIOPSY[IES]), 1 OR 2 MEDIASTINAL AND/OR HILAR LYMPH NODE STATIONS OR STRUCTURES performed by Dominguez Aguilar MD at OR [facility] COLONOSCOPY, DIAGNOSTIC (RECTUM) 09/04/2015 Internal hemorrhoids, 5 yr recall COLONOSCOPY FLEXIBLE PROXIMAL DIAGNOSTIC performed by Yudelka Hopkins DO at ENDOSCOPY [facility] COLONOSCOPY, DIAGNOSTIC (RECTUM) 01/05/2018 diverticulosis sigmoid colon/internal hemorrhoids/recall 5 years/COLONOSCOPY FLEXIBLE PROXIMAL DIAGNOSTIC performed by Farrukh Gilliam MD at ENDOSCOPY [facility] DRAIN NECK/CHEST ABSCESS/HEMATOMA Left 08/13/2024 INCISION AND DRAINAGE SOFT TISSUE NECK THORAX performed by Yumiko Gil MD at [place] [facility] DRAIN NECK/CHEST ABSCESS/HEMATOMA Left 08/13/2024 INCISION AND DRAINAGE SOFT TISSUE NECK THORAX performed by Yumiko Gil MD at OR [facility] EGD, FLEXIBLE, DIAGNOSTIC N/A 01/05/2018 hiatal hernia/normal/ESOPHAGOGASTRODUODENOSCOPY (EGD), FLEXIBLE, TRANSORAL, DIAGNOSTIC performed byFarrukh Gilliam MD at ENDOSCOPY [facility] INSER CHU CAT,W/O PUMP;5YR/OLD N/A 06/16/2019 INSERT TUNNELED CENTRAL VENOUS CATHETER AGE 5 OR OLDER performed by Vickey Woodruff MD at OR [facility] INSERTION OF LENS PROSTHESIS Left 05/02/2020 IR VENOUS ACCESS NON-MEDIPORT 10/24/2019 MUSCLE, MYOCUTANEOUS, OR FASCIOCUT FLAP; HEAD AND NECK W/PEDICLE 08/10/2024 MUSCLE, MYOCUTANEOUS, OR FASCIOCUTANEOUS FLAP PRESERVATION VASCULAR PEDICLE performed by Sin Tovar DO at [place] [facility] OTHER (INFORMATION) Removal of basal cell carcimoma from the back. REMOVAL OF NECK LYMPH NODES N/A 08/10/2024 CERVICAL LYMPHADENECTOMY COMPLETE performed by Lexie Aldridge MD at [place] [facility] REPAIR INITIAL INGUINAL HERNIA REDUCIBLE AGE 5 OR MORE Left 2009 REPAIR INITIAL INGUINAL HERNIA REDUCIBLE AGE 5 OR MORE Right 02/07/2019 REPAIR INITIAL INGUINAL HERNIA REDUCIBLE AGE 5 OR MORE performed by Jonathan Correia DO at OR [facility] SKIN SPLIT GRAFT, FACE/NECK/EARS 08/10/2024 SPLIT GRAFT FACE SCALP ETC LESS THAN 100SQ CM performed by Sin Tovar DO at [place] [facility] WND REPR,LAYERD,NECK/DIGITS/GENIT,12.6-20CM Left 08/10/2024 LAYER CLOSURE WOUND NECK HAND FEET GENITALS 12.6 TO 20CM performed by Sin Tovar DO at [place] [facility] Current Outpatient Medications Medication Sig Dispense Refill oxyCODONE HCl 5 MG Oral Tablet (Oxy IR) Take 1 tablet by mouth every 4 hours as needed for severe breakthrough pain. 25 Tablet 0 Apixaban 5 MG Oral Tablet (Eliquis) Take by mouth 1 Tablet in the morning AND 1 Tablet before bedtime. (Patient taking differently: Take 1 Tablet by mouth in the morning and 1 Tablet before bedtime. Pt off Eliquis as of 08/07 for surgery.) 60 Tablet 0 Tylenol 325 MG Oral Capsule (Acetaminophen) Take by mouth 2 Tablets every 6 hours as needed for Pain, Mild or Other (Fever, Headache). 90 Capsule 0 Levothyroxine Sodium 50 MCG Oral Tablet (Levoxyl) (at least 30 min prior to breakfast or other meds)take 1 tablet by mouth once daily AT LEAST 30 MINUTES PRIOR TO BREAKFAST OR OTHER MEDS 30 Tablet 0 Omeprazole 20 MG Oral Capsule Delayed Release (PriLOSEC) Take by mouth 1 Capsule in the morning. 30minutes before a meal. 30 Capsule 0 Metoprolol Succinate ER 25 MG Oral Tablet Extended Release 24 Hour (Toprol XL) Take 1 Tablet by mouth in the morning. 15 Tablet 0 Testosterone Cypionate 100 MG/ML Intramuscular Solution inject 0.75 milliliter intramuscularly every 7 days Umeclidinium-Vilanterol 62.5-25 MCG/ACT Inhalation Aerosol Powder Breath Activated (ANORO ellipta) Inhale 1 Puff by mouth in the morning. 180 Each 3 Furosemide 20 MG Oral Tablet (Lasix) Take 1 Tablet by mouth daily as needed (lower extremity edema). 30 Tablet 11 Sodium Bicarbonate 650 MG Oral Tablet Take 1 Tablet by mouth in the morning and 1 Tablet before bedtime. 180 Tablet 3 predniSONE 5 MG Oral Tablet (Deltasone) Take 1.5 Tablets by mouth in the morning. 135 Tablet 4 Calcitriol 0.25 MCG Oral Capsule (Rocaltrol) Take 1 Capsule by mouth in the morning. 30 Capsule 5 Albuterol Sulfate 108 (90 Base) MCG/ACT Inhalation Aerosol Powder Breath Activated Inhale 2 Puffs by mouth every 4 hours as needed for Shortness of Breath. (Patient not taking: Reported on 08/25/2024) 1 Each 11 Albuterol Sulfate (2.5 MG/3ML) 0.083% Inhalation Nebulization Solution (Proventil) Inhale 1 Vial via nebulizer every 4 hours as needed for Shortness of Breath or Wheezing. 360 mL 11 Allopurinol 100 MG Oral Tablet (Zyloprim) Take 2 Tablets by mouth in the morning. 180 Tablet 4 Econazole Nitrate 1 % External Cream (Spectazole) Apply to affected area on buttock, back and legs twice a day for 6 weeks 170 g 3 Aquaphor External Ointment Apply topically to affected area 3 times a day. Apply to neck three times daily 396 g 0 Zinc Oxide 40 % External Paste (Desitin) Apply to buttocks as needed. 57 g 0 Folic Acid 1 MG Oral Tablet Take 1 Tablet by mouth in the morning. 30 Tablet 0 Vitamin B-12 1000 MCG Oral Tablet (Cyanocobalamin) Take 1 Tablet by mouth in the morning. 30 Tablet0 Atorvastatin Calcium 20 MG Oral Tablet (Lipitor) Take 1 Tablet by mouth at bedtime. 90 Tablet 1 Sodium Fluoride 1.1 % Dental Cream (Denta 5000 Plus) Use as toothpaste twice daily. 153 g 5 Sodium Fluoride 1.1 % Dental Gel (PreviDent) After brushing and flossing, place a strip of fluorideinside tray and place tray inside mouth for 20 minutes. Do not eat/drink for 1 hour. 100 mL 12 Current Facility-Administered Medications Medication Dose Route Frequency Provider Last Rate Last Admin oxygen GAS Inhalation Oxygen Review of patient's allergies indicates: Allergen Reactions Chlorhexidine Hives and Rash Full body red rash; "skin peeled completely off" Iodinated Contrast Media Abdominal pain Acute kidney failure Azactam [Aztreonam] Hives Ciprofloxacin Diarrhea Cephalosporins Rash Tolerated cefazolin during August 2024 admission Levofloxacin Rash Family History Problem Relation Name Age of Onset No Past Hx Mother at 97 Heart attack Father 84 Other (unknown cause of ) Sister Linda 90 Osteoporosis Sister Emmanuelle Renal Hx Sister Emmanuelle Osteoporosis Sister Vicky Renal Hx Sister [place] Heart Disorder Brother Martin CAD started in his late 70's Diabetes Brother Martin Heart attack Brother Martin Diabetes Brother Fern Other (PVD) Brother Kelly Perpheral vasc dz Gastro-intestinal disorder Brother Homero at 85 from liver cirrhosis - non-ETOH Cancer Brother Donnell in his late 70's from throat cancer Other (Other) Brother Michi at a couple of months from pneumonia Other (unknown cause of ) Brother Morales Social History Tobacco Use Smoking status: Former Current packs/day: 0.00 Average packs/day: 1 pack/day for 1 year (1.0 ttl pk-yrs) Types: Cigarettes Start date: 1964 Quit date: 1965 Years since quittin.8 Smokeless tobacco: Never Tobacco comments: quit smoking in the 1959 Substance Use Topics Alcohol use: Yes Comment: occasional Vaping/E-Cigarette Use Vaping/E-Cigarette Use Never User Vaping/E-Cigarette Substances Nicotine No Other No Flavoring No THC No Cannabidiol (CBD) No Vaping/E-Cigarette Devices Disposable No Pre-filled or Refillable Cartridge No Refillable Tank No Pre-filled Pod No Review of Systems: Negative except as documented in HPI, PMH, and problem list. Physical Examination: Left neck pec flap and split thickness skin graft healing well Left pec flap harvest site flat, c/d/i Left leg split thickness skin graft harvest site healing well dressing changed Dressing replaced today: mupirocin, xeroform, telfa, and tegaderm Surg Path 08/10/24 Final Diagnosis A. Skin and soft tissue, left cutaneous and deep neck, composite resection: Exuberant benign postsurgical reactive changes No residual carcinoma identified Three lymph nodes, negative for carcinoma (0/3) B. Neck, Left level 2, biopsy: Eleven lymph nodes, negative for carcinoma (0/11) Benign parotid gland tissue C. Neck, Left level 2B, biopsy: Nine lymph nodes, negative for carcinoma (0/9) Benign parotid gland tissue D. Neck, Left level 5A, biopsy: Two lymph nodes, negative for carcinoma (0/2) E. Neck, Left level 5B, biopsy: Benign fibroadipose tissue No lymph nodes identified F. 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 Presenting for leg dressing change. He is healed enough to begin radiation. Follow up with me in 3 months or PRN. Lexie Aldridge MD, FACS Head & Neck Surgical Oncology, Microvascular Reconstruction, and Robotic Surgery documented in this encounter Plan of Treatment Upcoming Encounters Date Type Department Care Team (Late st Contact Info) Description 09/22/2024 1:15 PM EST Treatment Radiation Oncology, [address] [address] 09/25/2024 1:15 PM EST Treatment Radiation Oncology, [address] [address] 09/25/2024 1:30 PM EST Documentation Radiation Oncology, [address] [address] Mansoor Watson MD [address] [place] [id number] 09/26/2024 1:15 PM EST Treatment Radiation Oncology, [address] [address] 09/27/2024 1:15 PM EST Treatment Radiation Oncology, [address] [place] [address] 09/28/2024 1:15 PM EST Treatment Radiation Oncology, [address] [place] [address] 09/29/2024 1:15 PM EST Treatment Radiation Oncology, [address] [place] [address] 10/02/2024 1:15 PM EST Treatment Radiation Oncology, [address] [place] [address] 10/03/2024 1:15 PM EST Treatment Radiation Oncology, [address] [place] [address] 10/04/2024 1:15 PM EST Treatment Radiation Oncology, [address] [place] [address] 10/06/2024 1:15 PM EST Treatment Radiation Oncology, [address] [place] [address] 10/06/2024 2:00 PM EST Office Visit Dental Medicine, [place] [address] [place] [address] Russel Caceres, [facility] [address] [place] [address] 10/09/2024 1:15 PM EST Treatment Radiation Oncology, [address] [place] [address] 10/10/2024 1:15 PM EST Treatment Radiation Oncology, [address] [address] 10/11/2024 1:15 PM EST Treatment Radiation Oncology, [address] [place] [address] 10/12/2024 1:15 PM EST Treatment Radiation Oncology, [address] [place] [address] 10/13/2024 1:15 PM EST Treatment Radiation Oncology, [address] [place] [address] 10/16/2024 1:15 PM EST Treatment Radiation Oncology, [address] [place] [address] 10/17/2024 1:15 PM EST Treatment Radiation Oncology, [address], [place] [address] 10/18/2024 1:15 PM EST Treatment Radiation Oncology, [address], [place] [address] 10/18/2024 2:20 PM EST Office Visit [facility] [address] [place] [address] David Antunez [facility] [address] [facility] [address] 10/19/2024 1:15 PM EST Treatment Radiation Oncology, [address], [place] [address] 10/20/2024 1:15 PM EST Treatment Radiation Oncology, [address], [place] [address] 10/23/2024 1:15 PM EST Treatment Radiation Oncology, [address], [place] [address] 10/24/2024 1:15 PM EST Treatment Radiation Oncology, [address], [place] [address] 10/25/2024 1:15 PM EST Treatment Radiation Oncology, [address], [place] [address] 2024 1:15 PM EST Treatment Radiation Oncology, [facility] [address] [place] [address] 10/27/2024 1:15 PM EST Treatment Radiation Oncology, [facility] [address] [place] [address] 10/30/2024 1:15 PM EST Treatment Radiation Oncology, [facility] [address] [place] [address] 10/31/2024 1:15 PM EST Treatment Radiation Oncology, [facility] [address] [place] [address] 11/14/2024 1:15 PM EST Office Visit [facility] [address] [place] [address] Supriya Fernandes MD [address] [place] [address] 11/28/2024 10:45 AM EST Office Visit Otolaryngology/Head & Neck/Facial Plastic Surgery [address] [place] [address] Lexie Aldridge MD [address] [place] [address] 12/21/2024 1:30 PM EST Office Visit Dermatology, [facility] [place] [address] [place] [address] Malaika Guzman PA-C [address] [place] [address] 12/22/2024 12:00 PM EST Office Visit Nephrology, [address] [address] Keisha Gunn MD [address] [place] [address] 01/22/2025 1:30 PM EDT PulmDiagnostic Pulmonary Function Lab [facility] [address] [facility] [place] [address] [address], [address] [place] [address] 01/22/2025 2:00 PM EDT Office Visit Pulmonary Medicine [facility] [place] [address] [place] [phone] Dominguez Aguilar MD [address] [facility] [place] [address] 02/05/2025 10:00 AM EDT Office Visit Rheumatology, [facility] [address] [place] [address] Rafael Hernandez PA-C [address] [place] [address], [place] [address] 02/06/2025 1:30 PM EDT Office [address], [address] [address] Cherry Warner PA-C [address] [facility] [address] Scheduled Procedures Name Priority Associated Diagnoses Date/Ti [...] this encounter Medical Devices Implanted Type Area Prepared Foods Supervisor Device Identifier Shelf Expiration Date Model / Serial / Lot Mesh Perfix Plug Lg [id number] - [id number] Implanted:Qty : 1 on 02/07/2019 by Jonathan Correia DO at OR [facility] Right: Groin CR BARD : DAVOL 09/04/2023 [id number] / / [id number] Cytal Wndmtx 1lyr 20x09eg(150 Units) - [id number] - [id number] Implanted:Qty : 1 on 08/10/2024 by Lexie Aldridge MD at [place] [facility] Left: Leg Upper [employer] [id number] 10/07/2025 [id number] / [id number] / [id number] Cytal Wndmtx 1lyr 7x10cm (70 Units) - [id number] - [id number] Implanted:Qty : 1 on 08/10/2024 by Lexie Aldridge MD at [facility] Left: Leg Upper [employer] [id number] 01/05/2026 [id number] / [id number] / [id number] documented as of this encounter Visit Diagnoses Diagnosis Type 2 diabetes mellitus with stage 4 chronic kidney disease, without long-term current use of insulin (HCC)- Primary COPD, group C, by GOLD 2017 classification ([facility]) Paroxysmal atrial fibrillation (HCC) Atrial fibrillation Erythema nodosum Stage II pressure ulcer of left buttock (HCC) Pressure ulcer, buttock SCC (squamous cell carcinoma)- Primary Squamous cell carcinoma of skin, site unspecified 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 Squamous cell carcinoma of scalp and skin of neck S/P split thickness skin graft S/P flap graft Other postprocedural status documented in this encounter Advance Directives Documents on File Type Date Recorded 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
--- OUTSIDE RECORDS SUMMARY | 2024-09-30 18:04 | External Medical Summary | Summary of Care ---
Author Name Unknown Organization [facility] Address [address] [place] [address] Phone [phone] Care Team Providers Care Scaffold Erector Name Role Phone Fuentes Ashton MD Primary Care Provider [phone] Reason for Referral * Precert (Within 10 days (routine)) - Authorized Specialty Diagnoses / Procedures Referred By Contac t Referred To Contact Radiology Diagnoses Low back pain, unspecified Procedures CT L SPINE WO CONTRAST Dari Villegas CRNP [address] [place] [address] Phone: tel: fax: Referral ID Status Reason Start Date Expiration Date V isits Requested Visits Authorized [id number] Authorized Precert 09/14/2024 11/05/2024 3 3 Reason for Visit * Precert (Within 10 days (routine)) - Authorized Specialty Diagnoses / Procedures Referred By Contac t Referred To Contact Radiology Diagnoses Low back pain, unspecified Procedures CT L SPINE WO CONTRAST Dari Villegas CRNP [address] [place] [address] Phone: tel: fax: Referral ID Status Reason Start Date Expiration Date V isits Requested Visits Authorized [id number] Authorized Precert 09/14/2024 11/05/2024 3 3 Encounter Details Date Type Department Care Team (Latest Contact Info) Description 09/14/2024 10:32 AM EST - 09/14/2024 11:59 PM EST Hospital Encounter Radiology, [facility] [address] [place] [address] Arrived Discharge Disposition: Home - Self Care Allergies [...] as of this encounter (statuses as of 09/15/2024) Medications Apixaban 5 MG Oral Tablet (Eliquis)Indicati [...] Release (PriLOSEC)Indicat ions:Gastroesopha geal reflux disease without esophagitis,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 180 Each 3 4 5:01 PM EDT 01/28/20 24 Active Furosemide 20 MG Oral [...] by mouth in the morning. 30 Capsule 05/23/20 24 Active Albuterol Sulfate 108 (90 Base) MCG/ACT Inhalation Aerosol Powder Breath ActivatedIndicati ons:COPD, moderate (HCC) Inhale 2 Puffs by mouth every 4 hours as needed for Shortness of Breath. 1 Each 07/06/20 24 Active Additional Information Patient not taking.Reported on 08/25/2024 Albuterol Sulfate (2.5 MG/3ML) 0.083% Inhalation Nebulization Solution (Proventil)Indica tions:COPD, group C, by GOLD 2017 classification (HCC) Inhale 1 Vial via nebulizer every 4 hours as needed for Shortness of Breath or Wheezing. 360 mL 07/06/20 24 Active Allopurinol 100 MG Oral Tablet (Zyloprim) Take 2 Tablets by mouth in the morning. 180 Tablet 4 10:01 AM EDT 07/17/20 24 Active Econazole Nitrate 1 % External Cream (Spectazole)Indic ations:Rash and nonspecific skin eruption Apply to affected area on buttock, back and legs twice a day for 6 weeks 170 g 07/24/20 24 Active Aquaphor External Ointment Apply topically to affected area 3 times a day. Apply to neck three times daily 396 g 4 4:09 PM EDT 08/22/20 Active Zinc Oxide 40 % External Paste (Desitin)Indicati ons:Pressure injury of left buttock, stage 1 Apply to buttocks as needed. 57 g 08/25/20 Active Folic Acid 1 MG Oral TabletIndications :SCC (squamous cell carcinoma) Take 1 Tablet by mouth in the morning. 30 Tablet 08/30/20 Active Vitamin B-12 1000 MCG Oral Tablet (Cyanocobalamin)I ndications:SCC (squamous cell carcinoma) Take 1 Tablet by mouth in the morning. 30 Tablet 08/30/20 Active Atorvastatin Calcium 20 MG Oral Tablet (Lipitor)Indicati ons:Dyslipidemia, goal LDL below 70 Take 1 Tablet by mouth at bedtime. 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 Steroid-induced [...] as of this encounter (statuses as of 09/15/2024) Resolved Problems Problem Noted Date Diagnosed Date [...] chronic kidney disease 08/03/2023 08/03/2023 Atherosclerosis of [place] co ronary artery without angina pectoris 02/01/2023 [...] as of this encounter (statuses as of 09/15/2024) Immunizations Name Administration Dates Next Due COVID-19 mRNA, LNP-s, No Pre serve, 2-Dose Series ([employer]) 08/15/2021,01/31/2021,01/03/2021 COVID-19, LNP-s, No Preserve , Ruslan-sucrose, Ages 12+ (Pfizer) 03/19/2022 COVID-19, MRNA-LNP, PF, 30 M CG/0.3 mL, 12 YRS AND ABOVE, IM ([facility]) 10/25/2023 Covid-19, Mrna, Lnp-s, Pf, B ivalent, 30 Mcg, IM, 12 yrs and above ([employer]) 2022 Pneumococcal Conjugate Vacc, 13 Valent (Prevnar) 01/21/2016 Pneumococcal Conjugate Vacci ne, 20-valent ([id number]) 07/19/2023 Pneumococcal Polysaccharide PPV23 (Pneumovax) 01/13/2011 RSV [...] Former Cigarettes 1 11 08 965 - 1966 Smokeless Tobacco: Never Comments:quit [...] No 08/23/2024 Does the household have a [facility] source of income? 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 Not on file Not on file [...] Team (Late st Contact Info) Description 09/15/2024 3:45 PM EST Office Visit Dental Medicine, [facility] [address] [place] [address] Russel Caceres, DMD [address] [place] [address] 09/19/2024 9:00 AM EST Office Visit Otolaryngology/Head & Neck/Facial Plastic Surgery [address] [place] [address] Lexie Aldridge MD [address] [place] [address] 09/19/2024 1:15 PM EST Treatment Radiation Oncology, [address] [address] 09/20/2024 1:15 PM EST Treatment Radiation Oncology, [address] [address] 09/21/2024 1:15 PM EST Treatment Radiation Oncology, [address] [address] 09/22/2024 1:15 PM EST Treatment Radiation Oncology, [address] [place] [address] 09/25/2024 1:15 PM EST Treatment Radiation Oncology, [address] [place] [address] 09/26/2024 1:15 PM EST Treatment Radiation Oncology, [address] [place] [address] 09/27/2024 1:15 PM EST Treatment Radiation Oncology, [address] [place] [address] 09/28/2024 1:15 PM EST Treatment Radiation Oncology, [address] [place] [address] 09/29/2024 1:15 PM EST Treatment Radiation Oncology, [address] [place] [address] 10/02/2024 1:15 PM EST Treatment Radiation Oncology, [address] [place] [address] 10/03/2024 1:15 PM EST Treatment Radiation Oncology, [address] [place] [address] 10/04/2024 1:15 PM EST Treatment Radiation Oncology, [address] [place] [address] 10/06/2024 1:15 PM EST Treatment Radiation Oncology, [address] [place] [address] 10/09/2024 1:15 PM EST Treatment Radiation Oncology, [address] [place] [address] 10/09/2024 2:20 PM EST [address] [phone] David Antunez MD [address] [place] [address] 10/10/2024 1:15 PM EST Treatment Radiation Oncology, [address] [place] [address] 10/11/2024 1:15 PM EST Treatment Radiation Oncology, [address] [place] [address] 10/12/2024 1:15 PM EST Treatment Radiation Oncology, [address] [place] [address] 10/13/2024 1:15 PM EST Treatment Radiation Oncology, [address] [place] [address] 10/16/2024 1:15 PM EST Treatment Radiation Oncology, [address] [place] [address] 10/17/2024 1:15 PM EST Treatment Radiation Oncology, [address] [place] [address] 10/18/2024 1:15 PM EST Treatment Radiation Oncology, [address] [place] [address] 10/19/2024 1:15 PM EST Treatment Radiation Oncology, [address] [place] [address] 10/20/2024 1:15 PM EST Treatment Radiation Oncology, [address] [place] [address] 10/23/2024 1:15 PM EST Treatment Radiation Oncology, [address] [place] [address] 10/24/2024 1:15 PM EST Treatment Radiation Oncology, [address] [place] [address] 10/25/2024 1:15 PM EST Treatment Radiation Oncology, [facility] [address] [place] [address] 2024 1:15 PM EST Treatment Radiation Oncology, [facility] [address] [place] [address] 10/27/2024 1:15 PM EST Treatment Radiation Oncology, [facility] [address] [place] [address] 10/30/2024 1:15 PM EST Treatment Radiation Oncology, [facility] [address] [place] [address] 10/31/2024 1:15 PM EST Treatment Radiation Oncology, [facility] [address] [place] [address] 11/14/2024 1:15 PM EST Office Visit [facility] [address] [place] [address] Supriya Fernandes MD [address] [place] [address] 12/21/2024 1:30 PM EST Office Visit Dermatology, [facility] [address] [facility] [address] [place] [address] Malaika Guzman PA-C [address] [place] [address] 12/22/2024 12:00 PM EST Office Visit Nephrology, [facility] [address] [place] [address] Keisha Gunn MD [address] [place] [address] [place] [address] 01/22/2025 1:30 PM EDT PulmDiagnostic Pulmonary Function Lab [facility] [address] [facility], [place] [address] [place], [address] Sonali Thang [place] [address] 01/22/2025 2:00 PM EDT Office Visit Pulmonary Medicine [facility] [address] [facility] [place] [phone] Dominguez Aguilar MD [address] [facility] [address] 02/05/2025 10:00 AM EDT Office Visit Rheumatology, [facility] [address] [place] [address] Rafael Hernandez PA-C [address] [facility], [place] [address] 02/06/2025 1:30 PM EDT Office Visit Cardiology, [place] [address] [facility] [place] [address] Cherry Warner PA-C [address] [place] [address] Scheduled Procedures Name Priority Associated Diagnoses Date/Ti me COLONOSCOPY FLEXIBLE PROXIMA L DIAGNOSTIC Recall Diverticulosis of sigmoid colon Health Maintenance Due Date Last Done Comments Adult Wellness Visit 03/14/2020 03/14/2019 COVID-19 Vaccine ( season) 2024 2023, 10/25/2023, 10/25/2023, Additional history exists Diabetic Eye Exam 07/19/2024 [...] Additional history exists Zoster Vaccines Completed 05/05/2021, 0505/2021, 03/03/2021 Alpha-1 Antitrypsin Completed 05/19/2021 Pneumococcal Vaccine: [...] this encounter Medical Devices Implanted Type Area Assistant Winemaker Device Identifier Shelf Expiration Date Model / Serial / Lot Mesh Perfix Plug Lg [id number] - [id number] Implanted:Qty : 1 on 02/07/2019 by Jonathan Correai DO at OR [facility] Right: Groin CR BARD : DAVOL 09/04/2023 [id number] / / [id number] Cytal Wndmtx 1lyr [id number](150 Units) - [id number] - [id number] Implanted:Qty : 1 on 08/10/2024 by Lexie Aldridge MD [place] [facility] [place]: Leg Upper [employer] [id number] 10/07/2025 [id number] / [id number] / [id number] Cytal Wndmtx 1lyr 7x10cm (70 Units) - [id number] - [id number] Implanted:Qty : 1 on 08/10/2024 by Lexie Aldridge MD [place] [facility] [place]: Leg Upper [employer] [id number] 01/05/2026 [id number] / [id number] / [id number] documented as of this encounter Procedures Procedure Name Priority Date/Time Associated Diagnosis Comments CT L SPINE WO CONTRAST Routine 09/14/2024 11:14 AM EST Low back pain, unspecified documented in this encounter Results * CT L SPINE WO CONTRAST (09/14/2024 11:14 AM EST) Anatomical Region Laterality Modality Lspine, Spine, Vertebra Computed Tomography 09/14/2024 1:28 PM EST Impressions 09/14/2024 1:26 PM EST IMPRESSION: 1. Transitional lumbar spine anatomy. 4 zkl-jtn-miunrrq lumbar type vertebral bodies, stable compared with 09/[address] 12 rib-bearing thoracic type vertebral bodies on 09/[address] Lumbosacral transitional vertebra (LSTV) designated as L5 for this dictation. L5 sacralization, with fully formed L5-S1 disc and left L5 transverse process widening (Castellvi Ia). ATTENTION TO SPINE NUMBERING IS MANDATORY PRIOR TO PLANNED SPINAL SURGICAL/INTERVENTIONAL PROCEDURE. 2. T12-L5 soft tissue at area of concern, which cannot be further characterized on this noncontrast CT. Contrast-enhanced lumbar spine MR may be performed for further evaluation, provided there is no clinical contraindication to MR or intravenous gadolinium-based contrast. 3. Status post L2-L4 total laminectomy and L2-L5 instrumented posterior spinal fusion. Bilateral L2 pedicle screws extend into L1-L2 disc space. Radiolucencies surrounding bilateral L2 screws, concerning for hardware loosening. No hardware failure. L2/L3, L3/L4, and L4/L5 osseous fusion. 4. No acute lumbar spine fracture. T12-L5 vertebral body compression deformities, stable compared with 09/[address] 5. Grade I anterolisthesis of T12 on L1. Grade I retrolisthesis of L5 on S1. 6. Convex right thoracolumbar scoliosis, measuring 10 degrees by Arzola method between superior T11 and inferior L2 endplates. 7. L5/S1 spinous process close apposition, which may represent Baastrup's disease. 8. T9-L4 bulky anterior osteophytes, most consistent with diffuse idiopathic skeletal hyperostosis (DISH). 9. Degenerative disc height loss at all lumbar levels. At worst severe facet arthropathy. Moderate bilateral SI joint degenerative changes. This case was submitted to the Radiology Switchboard Receptionist (INFORMATION SECURITY SPECIALIST): Unexpected or Indeterminate Result. Narrative 09/14/2024 1:26 PM EST EXAM: LUMBAR SPINE CT WITHOUT CONTRAST. 09/14/2024 11:14 am. HISTORY: Heterogeneous collection in the midline lower back, possibly a hematoma, abnormal ultrasound. Dx: Low back pain, unspecified M54.50 (ICD-10-CM). blow mold technician notes: Lump on back marked with BB. TECHNIQUE: Lumbar spine CT images without intravenous iodinated contrast administration. MPR reconstructions. COMPARISON: BACK ULTRASOUND dated 08/09/2024; CHEST/ABDOMEN/PELVIS CT WITHOUT CONTRAST dated 09/09/2023. FINDINGS: Transitional lumbar spine anatomy. 4 icv-scr-plffjzh lumbar type vertebral bodies, stable compared with 09/[address] 12 rib-bearing thoracic type vertebral bodies on 09/[address] Lumbosacral transitional vertebra (LSTV) designated as L5 for this dictation. L5 sacralization, with fully formed L5-S1 disc and left L5 transverse process widening (Castellvi Ia). Status post L2-L4 total laminectomy and L2-L5 instrumented posterior spinal fusion. Bilateral L2-L5 pedicle screws, transfixed by bilateral curved vertical rods. Bilateral L2 pedicle screws extend into L1-L2 disc space (series 8, image 86). Radiolucencies surrounding bilateral L2 screws, concerning for hardware loosening (series 6, images 126 and 127). No hardware failure. L2/L3, L3/L4, and L4/L5 osseous fusion across bilateral facet joints. BB marker indicating area of concern overlying posterior paraspinal muscles at L1-L2 level. T12-L5 underlying/adjacent soft tissue, which cannot be further characterized on this noncontrast CT (series 4, images 89-121; series 2, images 35-99). T12-L5 vertebral body compression deformities, stable compared with 09/[address] Grade I anterolisthesis of T12 on L1. Grade I retrolisthesis of L5 on S1. Convex right thoracolumbar scoliosis, measuring 10 degrees by Arzola method between superior T11 and inferior L2 endplates. L5/S1 spinous processes are closely apposed, which may represent Baastrup's disease. T9-L4 bulky anterior osteophytes. Otherwise anatomic lumbar spine alignment, without acute fracture. Degenerative disc height loss at all lumbar levels. At worst severe facet arthropathy. No included sacral fracture deformity. Moderate bilateral SI joint degenerative changes. Calcified gallstones. Abdominal aorta atherosclerotic calcification. Otherwise, normal included abdominal/pelvic contents. Posterior paraspinal muscle fatty atrophy at posterior fusion/laminectomy levels (an expected finding). Otherwise, moderate posterior/mild anterior paraspinal muscle atrophy. Procedure Note Alden Zepeda MD - 09/14/2024 EXAM: LUMBAR SPINE CT WITHOUT CONTRAST. 09/14/2024 11:14 am. HISTORY: Heterogeneous collection in the midline lower back, possibly a hematoma,abnormal ultrasound. Dx: Low back pain, unspecified M54.50 (ICD-10-CM).blow mold technician notes: Lump on back marked with BB. TECHNIQUE: Lumbar spine CT images without intravenous iodinated contrastadministration. MPR reconstructions. COMPARISON: BACK ULTRASOUND dated 08/09/2024; CHEST/ABDOMEN/PELVIS CT WITHOUT CONTRASTdated 09/09/2023. FINDINGS: Transitional lumbar spine anatomy. 4 pfz-loj-uevynkr lumbar type vertebralbodies, stable compared with 09/[address] 12 rib-bearing thoracic typevertebral bodies on 09/[address] Lumbosacral transitional vertebra(LSTV) designated as L5 for this dictation. L5 sacralization, with fullyformed L5-S1 disc and left L5 transverse process widening (CastellviIa). Status post L2-L4 total laminectomy and L2-L5 instrumented posteriorspinal fusion. Bilateral L2-L5 pedicle screws, transfixed by bilateralcurved vertical rods. Bilateral L2 pedicle screws extend into L1-L2 discspace (series 8, image 86). Radiolucencies surrounding bilateral U0cleewp, concerning for hardware loosening (series 6, images 126 and 127).No hardware failure. L2/L3, L3/L4, and L4/L5 osseous fusion acrossbilateral facet joints. BB marker indicating area of concern overlying posterior paraspinalmuscles at L1-L2 level. T12-L5 underlying/adjacent soft tissue, whichcannot be further characterized on this noncontrast CT (series 4, [id number]; series 2, images 35-99). T12-L5 vertebral body compression deformities, stable compared with09/[address] Grade I anterolisthesis of T12 on L1. Grade Iretrolisthesis of L5 on S1. Convex right thoracolumbar scoliosis,measuring 10 degrees by Arzola method between superior T11 and inferior [id number]. L5/S1 spinous processes are closely apposed, which mayrepresent Baastrup's disease. T9-L4 bulky anterior osteophytes.Otherwise anatomic lumbar spine alignment, without acute fracture.Degenerative disc height loss at all lumbar levels. At worst severe facetarthropathy. No included sacral fracture deformity. Moderate bilateral SIjoint degenerative changes. Calcified gallstones. Abdominal aorta atherosclerotic calcification.Otherwise, normal included abdominal/pelvic contents. Posterior paraspinalmuscle fatty atrophy at posterior fusion/laminectomy levels (an expectedfinding). Otherwise, moderate posterior/mild anterior paraspinal muscleatrophy. IMPRESSION IMPRESSION: 1. Transitional lumbar spine anatomy. 4 mkw-ygi-xqetaky lumbar typevertebral bodies, stable compared with 09/[address] 12 rib-bearingthoracic type vertebral bodies on 09/[address] Lumbosacraltransitional vertebra (LSTV) designated as L5 for this dictation. [id number], with fully formed L5-S1 disc and left L5 transverse processwidening (Castellvi Ia). ATTENTION TO SPINE NUMBERING IS MANDATORY PRIORTO PLANNED SPINAL SURGICAL/INTERVENTIONAL PROCEDURE. 2. T12-L5 soft tissue at area of concern, which cannot be furthercharacterized on this noncontrast CT. Contrast-enhanced lumbar spine MRmay be performed for further evaluation, provided there is no clinicalcontraindication to MR or intravenous gadolinium-based contrast. 3. Status post L2-L4 total laminectomy and L2-L5 instrumented posteriorspinal fusion. Bilateral L2 pedicle screws extend into L1-L2 disc space.Radiolucencies surrounding bilateral L2 screws, concerning for hardwareloosening. No hardware failure. L2/L3, L3/L4, and L4/L5 osseousfusion. 4. No acute lumbar spine fracture. T12-L5 vertebral body compressiondeformities, stable compared with 09/[address] 5. Grade I anterolisthesis of T12 on L1. Grade I retrolisthesis of L5 onS1. 6. Convex right thoracolumbar scoliosis, measuring 10 degrees by Cobbmethod between superior T11 and inferior L2 endplates. 7. L5/S1 spinous process close apposition, which may represent Baastrup'sdisease. 8. T9-L4 bulky anterior osteophytes, most consistent with diffuseidiopathic skeletal hyperostosis (DISH). 9. Degenerative disc height loss at all lumbar levels. At worst severefacet arthropathy. Moderate bilateral SI joint degenerative changes. This case was submitted to the Radiology Switchboard Receptionist(INFORMATION SECURITY SPECIALIST): Unexpected or Indeterminate Result. 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
--- OUTSIDE RECORDS SUMMARY | 2024-09-30 18:04 | External Medical Summary | Summary of Care ---
Author Name Unknown Organization [facility] Address [address] [place] [address] Phone [phone] Care Team Providers Care Highballer Name Role Phone Fuentes Ashton MD Primary Care Provider [phone] Encounter Details Date Type Department Care Team (Late st Contact Info) Description 09/19/2024 Orders Only Radiation Oncology, [facility] [address] [place] [address] IovoliMansoor MD [address] [place] [address] Allergies Active Allergy Reactions Criticality Noted Date Comments Aztreonam Hives Medium 10/11/2019 Cephalosporins Rash 05/24/2017 Tolerated cefazolin during August 2024 admission Chlorhexidine Hives,Rash High 01/02/2022 Full body red rash; "skin peeled completely off" Ciprofloxacin Diarrhea Medium 01/28/2015 Iodinated Contrast Media Abdominal pain High 019 Acute kidney failure Levofloxacin Rash Low 07/28/2019 documented as of this encounter (statuses as of 09/19/2024) Medications Apixaban 5 MG Oral Tablet (Eliquis)Indicati [...] Aerosol Powder Breath ActivatedIndicati ons:COPD, moderate ([facility]) Inhale 2 Puffs by mouth every 4 hours as needed for Shortness of Breath. 1 Each 11 07/06/20 24 Active Additional Information Patient not taking.Reported on 08/25/2024 Albuterol Sulfate (2.5 MG/3ML) 0.083% Inhalation Nebulization Solution (Proventil)Indica tions:COPD, group C, by GOLD 2017 classification ([facility]) Inhale 1 Vial via [...] as of this encounter (statuses as of 09/19/2024) Active Problems Problem Noted Date Diagnosed Date [...] from 2018 Atherosclerotic heart diseas e of [place] coronary artery without angina pectoris 05/31/2020 Nuclear [...] as of this encounter (statuses as of 09/19/2024) Resolved Problems Problem Noted Date Diagnosed Date [...] chronic kidney disease 08/03/2023 08/03/2023 Atherosclerosis of [place] co ronary artery without angina pectoris 02/01/2023 [...] as of this encounter (statuses as of 09/19/2024) Immunizations Name Administration Dates Next Due COVID-19 mRNA, LNP-s, No Pre serve, 2-Dose Series ([employer]) 08/15/2021,01/31/2021,01/03/2021 COVID-19, LNP-s, No Preserve , Ruslan-sucrose, Ages 12+ ([employer]arma[employer]) 03/19/2022 COVID-19, MRNA-LNP, PF, 30 M CG/0.3 mL, 12 YRS AND ABOVE, IM ([facility]) 10/25/2023 Covid-19, Mrna, Lnp-s, Pf, B ivalent, 30 Mcg, IM, 12 yrs and above ([employer]) 2022 Pneumococcal Conjugate Vacc, 13 Valent (Prevnar) 01/21/2016 Pneumococcal Conjugate Vacci ne, 20-valent ([id number]) 07/19/2023 Pneumococcal Polysaccharide PPV23 (Pneumovax) 01/13/2011 RSV [...] 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 Not on file [...] Date Author No 08/11/2024 8:15 AM Joseluis Brotehrs RN documented in this encounter Plan of Treatment Upcoming Encounters Date Type Department Care Team (Late st Contact Info) Description 09/20/2024 1:15 PM EST Treatment Radiation Oncology, [address] [address] 09/21/2024 1:15 PM EST Treatment Radiation Oncology, [address] [address] 09/22/2024 1:15 PM EST Treatment Radiation Oncology, [address] [address] 09/25/2024 1:15 PM EST Treatment Radiation Oncology, [address] [address] 09/26/2024 1:15 PM EST Treatment Radiation Oncology, [address] [address] 09/27/2024 1:15 PM EST Treatment Radiation Oncology, [address] [address] 09/28/2024 1:15 PM EST Treatment Radiation Oncology, [address] [address] 09/29/2024 1:15 PM EST Treatment Radiation Oncology, [address] [address] 10/02/2024 1:15 PM EST Treatment Radiation Oncology, [address] [address] 10/03/2024 1:15 PM EST Treatment Radiation Oncology, [address] [place] [address] 10/04/2024 1:15 PM EST Treatment Radiation Oncology, [address] [place] [address] 10/06/2024 1:15 PM EST Treatment Radiation Oncology, [address] [place] [address] 10/09/2024 1:15 PM EST Treatment Radiation Oncology, [address] [place] [address] 10/09/2024 2:20 PM EST Office Visit [address] [address] David Antunez MD [address] [place] [address] 10/10/2024 1:15 PM EST Treatment Radiation Oncology, [address] [place] [address] 10/11/2024 1:15 PM EST Treatment Radiation Oncology, [address] [place] [address] 10/12/2024 1:15 PM EST Treatment Radiation Oncology, [address] [place] [address] 10/13/2024 1:15 PM EST Treatment Radiation Oncology, [address] [place] [address] 10/16/2024 1:15 PM EST Treatment Radiation Oncology, [address] [place] [address] 10/17/2024 1:15 PM EST Treatment Radiation Oncology, [address] [place] [address] 10/18/2024 1:15 PM EST Treatment Radiation Oncology, [address] [place] [address] 10/19/2024 1:15 PM EST Treatment Radiation Oncology, [address] [address] 10/20/2024 1:15 PM EST Treatment Radiation Oncology, [address] [address] 10/23/2024 1:15 PM EST Treatment Radiation Oncology, [address] [address] 10/24/2024 1:15 PM EST Treatment Radiation Oncology, [address] [address] 10/25/2024 1:15 PM EST Treatment Radiation Oncology, [address] [address] 2024 1:15 PM EST Treatment Radiation Oncology, [address] [address] 10/27/2024 1:15 PM EST Treatment Radiation Oncology, [address] [address] 10/30/2024 1:15 PM EST Treatment Radiation Oncology, [address] [address] 10/31/2024 1:15 PM EST Treatment Radiation Oncology, [address] [address] 11/14/2024 1:15 PM EST Office Visit [facility] Surgery [facility] [address] [place] [address] Supriya Fernandes MD [address] [place] [address] 11/28/2024 10:45 AM EST Office Visit Otolaryngology/Head & Neck/Facial Plastic Surgery [address] [facility] [place] [address] Lexie Aldridge MD [address] [place] [address] 12/21/2024 1:30 PM EST Office Visit Dermatology, [address] [place] [address] [place] [address] Malaika Guzman PA-C [address] [place] [address] 12/22/2024 12:00 PM EST Office Visit Nephrology, [address] [address] Keisha Gunn MD [address] [place] [address] 01/22/2025 1:30 PM EDT PulmDiagnostic Pulmonary Function Lab [facility] [address] [place] [address] [address], [address] [facility] [place] [address] 01/22/2025 2:00 PM EDT Office Visit Pulmonary Medicine [facility] [address] [place] [phone] Dominguez Aguilar MD [address] [facility] [place] [address] 02/05/2025 10:00 AM EDT Office Visit Rheumatology, [address] [address] Rafael Hernandez, PAJackiC [address] [place] [address], [place] [address] 02/06/2025 1:30 PM EDT Office Visit Cardiology, [place] [address] [place] [address] Cherry Warner PA-C [address] [place] [address] Scheduled Procedures Name Priority Associated Diagnoses Date/Ti [...] this encounter Medical Devices Implanted Type Area Delivery Room Clerk Device Identifier Shelf Expiration Date Model / Serial / Lot Mesh Perfix Plug Lg [id number] - [id number] Implanted:Qty : 1 on 02/07/2019 by Jonathan Correia DO at OR [facility] Right: Groin CR BARD : DAVOL 09/04/2023 [id number] / / [id number] Cytal Wndmtx 1lyr [id number](150 Units) - [id number] - [id number] Implanted:Qty : 1 on 08/10/2024 by Lexie Aldridge MD [place] [facility] Left: Leg Upper [employer] [id number] 10/07/2025 [id number] / [id number] / [id number] Cytal Wndmtx 1lyr 7x10cm (70 Units) - [id number] - [id number] Implanted:Qty : 1 on 08/10/2024 by Lexie Aldridge MD at [place] [facility] Left: Leg Upper [employer] [id number] 01/05/2026 [id number] / [id number] / [id number] documented as of this encounter Procedures Procedure Name Priority Date/Time Associated Diagnosis Comments RAD ONC ARIA SESSION SUMMARY Routine 09/19/2024 1:27 PM EST documented in this encounter Results * RAD ONC ARIA SESSION SUMMARY (09/19/2024 1:27 PM EST) Course ID C1 ARIA RADIATION ONCOLOGY Course Intent Post-op ARIA RADIATION ONCOLOGY Course Start Date 09/04/2024 12:46 PM ARIA RADIATION ONCOLOGY RAD ONC ARIA SESSION NUMBER 1 ARIA RADIATION ONCOLOGY Course First Treatment Date 09/19/2024 1:24 PM ARIA RADIATION ONCOLOGY Course Last Treatment Date 09/19/2024 1:25 PM ARIA RADIATION ONCOLOGY Course Elapsed Days 0 ARIA RADIATION ONCOLOGY Reference Point ID [id number] ARIA RADIATION ONCOLOGY Reference Point Dosage Given to Date 2 Gy ARIA RADIATION ONCOLOGY Reference Point Session Dosage Given 2 Gy ARIA RADIATION ONCOLOGY Plan ID 10-L Neck ARIA RADIATION ONCOLOGY Plan Name 10-L Neck ARIA RADIATION ONCOLOGY Plan Fractions Treated to Date 1 ARIA RADIATION ONCOLOGY Plan Total Fractions Prescribed 30 ARIA RADIATION ONCOLOGY Plan Prescribed Dose Per Fraction 2 Gy ARIA RADIATION ONCOLOGY Plan Total Prescribed Dose 6,000 cGy ARIA RADIATION ONCOLOGY Plan Primary Reference Point [id number] ARIA RADIATION ONCOLOGY 09/19/2024 1:27 PM EST us No Physician Data Unknown DRESSINGS Final Result ARIA RADIATION ONCOLOGY documented in this encounter Advance Directives Documents on File Type Date Recorded Patient Medical Lab Scientist Expl anation Advance Directives and Living Will [...] [place] Adult Child Emergency Contact Care Teams Highballer Relationship Specialty Start Date End Date Fuentes Ashton MD [address] [place] [address] PCP - General Family Medicine 01/30/22 documented as of this encounter
--- OUTSIDE RECORDS SUMMARY | 2024-09-30 18:04 | External Medical Summary | Summary of Care ---
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 Vannessa Cameron MD [address] [place] [address] Phone: tel: fax: Referral ID Status Reason Start Date Expiration Date Visits Requested Visits Authorized [id number] Pending Review Specialty Services Required [phone] Encounter Details Date Type Department Care Team (Late st Contact Info) Description 09/15/2024 3:45 PM EST Office Visit Dental Medicine, [place] [address] [place] [address] Russel Caceres, JESSICA [address] [place] [address] Encounter for dental examination* Allergies Active Allergy Reactions Criticality Noted Date [...] Release (PriLOSEC)Indicat ions:Gastroesopha geal reflux disease without esophagitis,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 1 Each 07/06/20 24 Active Additional Information Patient not taking.Reported on 08/25/2024 Albuterol Sulfate (2.5 MG/3ML) 0.083% Inhalation Nebulization Solution (Proventil)Indica tions:COPD, group C, by GOLD 2017 classification ([facility]) Inhale 1 Vial via nebulizer [...] as needed. 57 g 08/25/20 24 Active Folic Acid 1 MG Oral TabletIndications :SCC (squamous cell carcinoma) Take 1 Tablet by mouth in the morning. 30 Tablet 08/30/20 24 Active Vitamin B-12 1000 MCG Oral Tablet (Cyanocobalamin)I ndications:SCC (squamous cell carcinoma) Take 1 Tablet by mouth in the morning. 30 Tablet 08/30/20 Active Atorvastatin Calcium 20 MG Oral Tablet (Lipitor)Indicati ons:Dyslipidemia, goal LDL below 70 Take 1 Tablet by mouth at bedtime. 90 Tablet 1 4 8:06 AM EDT 09/04/20 Active Sodium Fluoride 1.1 % Dental Cream (Denta 5000 Plus) Use as toothpaste twice daily. 153 g 5 09/15/20 Active Sodium Fluoride 1.1 % Dental Gel (PreviDent) After brushing and flossing, place a strip of fluoride inside tray and place tray inside mouth for 20 minutes. Do not eat/drink for 1 hour. 100 mL 12 09/15/20 Active Hospital, Clinic, or Other Facility Administered [...] from 2018 Atherosclerotic heart diseas e of [place] coronary artery without angina pectoris 05/31/2020 Nuclear [...] neoplasm) 0 03/09/2018 Overview (03/09/2018): MRI 02/23 intermediate (current) use 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 08/03/2023 08/03/2023 Atherosclerosis of [place] ronary artery without angina pectoris 02/01/2023 [...] mRNA, LNP-s, No Pre serve, 2-Dose Series ([employer]) 08/15/2021,01/31/2021,01/03/2021 COVID-19, LNP-s, No Preserve , Ruslan-sucrose, Ages 12+ (Pfizer) 03/19/2022 COVID-19, MRNA-LNP, PF, 30 M CG/0.3 mL, 12 YRS AND ABOVE, IM ([employer]) 10/25/2023 Covid-19, Mrna, Lnp-s, Pf, B ivalent, 30 Mcg, IM, 12 yrs and above ([employer]) 2022 Pneumococcal Conjugate Vacc, 13 Valent (Prevnar) 01/21/2016 Pneumococcal Conjugate Vacci ne, 20-valent ([id number]) 07/19/2023 Pneumococcal Polysaccharide PPV23 (Pneumovax) 01/13/2011 RSV [...] No 08/23/2024 Does the household have a select specialty hospitalr source of income? 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 Pt has teeth #19-28 remaining. There are no dental or periodontal infections and the teeth are in good repair. Pt has no attached gingiva facial #19. #19 is compromised however, pt is not interested in having this tooth removed to avoid future possible problems. Pt made aware that any tooth ext'd after radiation has potential to develop osteonecrosis. Pt does not want to return for Fl tray delivery and prefers to have them mailed to him. Pt will seek routine and regular dental care in his area. Bertrand alginate to fabricate bertrand fluoride carrier. Max is edentulous. Rx for denta 5000 and prevident gel sent. Pt given ADA handout on radiation and your mouth. Russel Caceres D.M.D. documented in this encounter Nursing Notes * Arina Mendez DA - 09/15/2024 3:07 PM EST Reviewed medical history with patient. No changes noted. Asked patient status before taking x-ray No, patient is not . RETURN EDUCATION SCREENING Today's Date: 09/15/2024 Understands Current Diagnosis: Yes Understands Current Treatment: Yes Recheck Education Screening for Patient Barrier to Learning: Unchanged Learning Need: POI Person Taught: Patient Method: Lecture Outcome: State/Describe/Explain Comments: none TIME OUT. Patient was identified by two methods. Procedure was identified, verified and reviewed with patient. documented in this encounter Plan of Treatment Upcoming Encounters Date Type Department Care Team (Late st Contact Info) Description 09/19/2024 1:15 PM EST Treatment Radiation Oncology, [address] [address] 09/20/2024 1:15 PM EST Treatment Radiation Oncology, [address] [address] 09/21/2024 1:15 PM EST Treatment Radiation Oncology, [address] [address] 09/22/2024 1:15 PM EST Treatment Radiation Oncology, [address] [address] 09/25/2024 1:15 PM EST Treatment Radiation Oncology, [address] [address] 09/26/2024 1:15 PM EST Treatment Radiation Oncology, [address] [place] [address] 09/27/2024 1:15 PM EST Treatment Radiation Oncology, [address] [place] [address] 09/28/2024 1:15 PM EST Treatment Radiation Oncology, [address] [place] [address] 09/29/2024 1:15 PM EST Treatment Radiation Oncology, [address] [place] [address] 10/02/2024 1:15 PM EST Treatment Radiation Oncology, [address] [place] [address] 10/03/2024 1:15 PM EST Treatment Radiation Oncology, [address] [place] [address] 10/04/2024 1:15 PM EST Treatment Radiation Oncology, [address] [place] [address] 10/06/2024 1:15 PM EST Treatment Radiation Oncology, [address] [place] [address] 10/09/2024 1:15 PM EST Treatment Radiation Oncology, [address] [place] [address] 10/09/2024 2:20 PM EST [address] [phone] David Antunez MD [address] [facility] [place] [address] 10/10/2024 1:15 PM EST Treatment Radiation Oncology, [address] [place] [address] 10/11/2024 1:15 PM EST Treatment Radiation Oncology, [address] [place] [address] 10/12/2024 1:15 PM EST Treatment Radiation Oncology, [address] [place] [address] 10/13/2024 1:15 PM EST Treatment Radiation Oncology, [address] [place] [address] 10/16/2024 1:15 PM EST Treatment Radiation Oncology, [address] [place] [address] 10/17/2024 1:15 PM EST Treatment Radiation Oncology, [address] [place] [address] 10/18/2024 1:15 PM EST Treatment Radiation Oncology, [address] [place] [address] 10/19/2024 1:15 PM EST Treatment Radiation Oncology, [address] [place] [address] 10/20/2024 1:15 PM EST Treatment Radiation Oncology, [address] [place] [address] 10/23/2024 1:15 PM EST Treatment Radiation Oncology, [address] [place] [address] 10/24/2024 1:15 PM EST Treatment Radiation Oncology, [address] [place] [address] 10/25/2024 1:15 PM EST Treatment Radiation Oncology, [address] [place] [address] 2024 1:15 PM EST Treatment Radiation Oncology, [address] [place] [address] 10/27/2024 1:15 PM EST Treatment Radiation Oncology, [facility] [address] [facility] [address] 10/30/2024 1:15 PM EST Treatment Radiation Oncology, [facility] [address] [facility] [place] [address] 10/31/2024 1:15 PM EST Treatment Radiation Oncology, [facility] [address] [facility] [place] [address] 11/14/2024 1:15 PM EST Office Visit [facility] [address] [place] [address] Supriya Fernandes MD [address] [facility] [place] [address] 11/28/2024 10:45 AM EST Office Visit Otolaryngology/Head & Neck/Facial Plastic Surgery [address] [facility] [place] [address] Lexie Aldridge MD [address] [place] [address] 12/21/2024 1:30 PM EST Office Visit Dermatology, [facility] [address] [facility] [address] [place] [address] Malaika Guzman PA-C [address] [place] [address] 12/22/2024 12:00 PM EST Office Visit Nephrology, [facility] [address] [place] [address] Keisha Gunn MD [address] [place] [address] [place] [address] 01/22/2025 1:30 PM EDT PulmDiagnostic Pulmonary Function Lab [facility] [address] [facility] [place] [address] [address], [address] Sonali Thang [place] [address] 01/22/2025 2:00 PM EDT Office Visit Pulmonary Medicine [facility] [address] [place] [address] Dominguez Aguilar MD [address] [facility] [place] [address] 02/05/2025 10:00 AM EDT Office Visit Rheumatology, [facility] [address] [place] [address] Rafael Hernandez PA-C [address] [facility], [place] [address] 02/06/2025 1:30 PM EDT Office Visit Cardiology, [place] [facility] [address] Cherry Warner PA-C [address] [facility] [place] [address] Scheduled Procedures Name Priority Associated Diagnoses Date/Ti [...] this encounter Medical Devices Implanted Type [employer] Registrar Device Identifier Shelf Expiration Date Model / Serial / Lot Mesh Perfix Plug Lg [id number] - [id number] Implanted:Qty : 1 on 02/07/2019 by Jonathan Correia DO at OR [facility] Right: Groin CR BARD : DAVOL 09/04/2023 [id number] / / [id number] Cytal Wndmtx 1lyr 05a37xm(150 Units) - [id number] - [id number] Implanted:Qty : 1 on 08/10/2024 by Lexie Aldridge MD at OR [facility] Left: Leg Upper [employer] [id number] 10/07/2025 [id number] / [id number] / [id number] Cytal Wndmtx 1lyr 7x10cm (70 Units) - [id number] - [id number] Implanted:Qty : 1 on 08/10/2024 by Lexie Aldridge MD at OR [facility] Left: Leg Upper [employer] [id number] 01/05/2026 [id number] / [id number] / [id number] documented as of this encounter Visit Diagnoses Diagnosis Type 2 diabetes mellitus with stage 4 chronic kidney disease, without long-term current use of insulin (HCC)- Primary COPD, group C, by GOLD 2017 classification ([facility]) Paroxysmal atrial fibrillation (HCC) Atrial fibrillation Erythema nodosum Stage II pressure ulcer of left buttock ([facility]) Pressure ulcer, buttock Encounter for dental examination- Primary Dental examination documented in this encounter Advance Directives Documents on File Type Date Recorded Patient Last Code Striper Expl anation Advance Directives and Living Will [...] 6:07 AM 08/10/2024 3:13 PM This order reflects the patients wishes [...] verbally by patient or by statute hierarchy) [facility] Adult Child Emergency Contact Care Teams Jigger Artisan Relationship Specialty Start Date End Date Fuentes Ashton MD [address] [place] [address] PCP - General Family Medicine 01/30/22 documented as of this encounter
--- OUTSIDE RECORDS SUMMARY | 2024-09-30 18:04 | External Medical Summary | Summary of Care ---
Author Name Unknown Organization [facility] Address [address] [place] [address] Phone [phone] Care Team Providers Care Research Animal Attendant Name Role Phone Fuentes Ashton MD Primary Care Provider [phone] Encounter Details Date Type Department Care Team (Late st Contact Info) Description 09/20/2024 11:30 AM EST Scheduled Telephone Care Coordination and Integration [address] [place] [address] Jonah Scott [facility] Licensed Physical Therapist Assistant [address], [place] [id number] Allergies Active Allergy Reactions Criticality Noted Date Comments Aztreonam Hives Medium 10/11/2019 Cephalosporins Rash 05/24/2017 Tolerated cefazolin during August 2024 admission Chlorhexidine Hives,Rash High 01/02/2022 Full body red rash; "skin peeled completely off" Ciprofloxacin Diarrhea Medium 01/28/2015 Iodinated Contrast Media Abdominal pain High 019 Acute kidney failure Levofloxacin Rash Low 07/28/2019 documented as of this encounter (statuses as of 09/20/2024) Medications Apixaban 5 MG Oral Tablet (Eliquis)Indicati [...] Release (PriLOSEC)Indicat ions:Gastroesopha geal reflux disease without esophagitis,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) use 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 Steroid-induced diabetes [...] as of this encounter (statuses as of 09/20/2024) Resolved Problems Problem Noted Date Diagnosed Date [...] chronic kidney disease 08/03/2023 08/03/2023 Atherosclerosis of [place] co ronary artery without angina pectoris 02/01/2023 [...] as of this encounter (statuses as of 09/20/2024) Immunizations Name Administration Dates Next Due COVID-19 mRNA, LNP-s, No Pre serve, 2-Dose Series ([employer]) 08/15/2021,01/31/2021,01/03/2021 COVID-19, LNP-s, No Preserve , Ruslan-sucrose, Ages 12+ ([employer]) 03/19/2022 COVID-19, MRNA-LNP, PF, 30 M CG/0.3 mL, 12 YRS AND ABOVE, IM ([employer]) 10/25/2023 Covid-19, Mrna, Lnp-s, Pf, B ivalent, 30 Mcg, IM, 12 yrs and above ([employer]) 2022 Pneumococcal Conjugate Vacc, 13 Valent (Prevnar) 01/21/2016 Pneumococcal Conjugate Vacci ne, 20-valent ([id number]) 07/19/2023 Pneumococcal Polysaccharide PPV23 (Pneumovax) 01/13/2011 RSV [...] Date Smoking Tobacco: Former Cigarettes 1 1 965 - 1965 Smokeless Tobacco: [...] No 08/23/2024 Does the household have a [facility] source of income? 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 CHW left a brief message with the RNCM's callback information. Bj Scott [facility] Worker Lead [facility] [phone] Electronically signed by Jonah Scott [facility] Licensed Physical Therapist Assistant at 09/20/2024 12:59 PM EST documented in this encounter Plan of Treatment Upcoming Encounters Date Type Department Care Team (Late st Contact Info) Description 09/20/2024 1:15 PM EST Treatment Radiation Oncology, [address] [address] Arrived 09/21/2024 1:15 PM EST Treatment Radiation Oncology, [address] [address] 09/22/2024 1:15 PM EST Treatment Radiation Oncology, [address] [address] 09/25/2024 1:15 PM EST Treatment Radiation Oncology, [address] [address] 09/26/2024 1:15 PM EST Treatment Radiation Oncology, [address] [address] 09/27/2024 1:15 PM EST Treatment Radiation Oncology, [address] [address] 09/28/2024 1:15 PM EST Treatment Radiation Oncology, [address] [place] [address] 09/29/2024 1:15 PM EST Treatment Radiation Oncology, [address] [place] [address] 10/02/2024 1:15 PM EST Treatment Radiation Oncology, [address] [place] [address] 10/03/2024 1:15 PM EST Treatment Radiation Oncology, [address] [place] [address] 10/04/2024 1:15 PM EST Treatment Radiation Oncology, [address] [place] [address] 10/06/2024 1:15 PM EST Treatment Radiation Oncology, [address] [place] [address] 10/06/2024 2:00 PM EST Office Visit Dental Medicine, [place] [address] [place] [address] [facility] [address] [place] [address] 10/09/2024 1:15 PM EST Treatment Radiation Oncology, [address] [place] [address] 10/10/2024 1:15 PM EST Treatment Radiation Oncology, [address] [place] [address] 10/11/2024 1:15 PM EST Treatment Radiation Oncology, [address] [place] [address] 10/12/2024 1:15 PM EST Treatment Radiation Oncology, [address] [place] [address] 10/13/2024 1:15 PM EST Treatment Radiation Oncology, [address] [place] [address] 10/16/2024 1:15 PM EST Treatment Radiation Oncology, [address] [place] [address] 10/17/2024 1:15 PM EST Treatment Radiation Oncology, [address] [place] [address] 10/18/2024 1:15 PM EST Treatment Radiation Oncology, [address] [place] [address] 10/18/2024 2:20 PM EST Office Visit [address] [phone] David Antunez MD [address] [place] [address] 10/19/2024 1:15 PM EST Treatment Radiation Oncology, [address] [place] [address] 10/20/2024 1:15 PM EST Treatment Radiation Oncology, [address] [place] [address] 10/23/2024 1:15 PM EST Treatment Radiation Oncology, [address] [place] [address] 10/24/2024 1:15 PM EST Treatment Radiation Oncology, [address] [place] [address] 10/25/2024 1:15 PM EST Treatment Radiation Oncology, [address] [place] [address] 2024 1:15 PM EST Treatment Radiation Oncology, [address] [place] [address] 10/27/2024 1:15 PM EST Treatment Radiation Oncology, [facility] [address] [facility] [place] [address] 10/30/2024 1:15 PM EST Treatment Radiation Oncology, [facility] [address] [place] [address] 10/31/2024 1:15 PM EST Treatment Radiation Oncology, [facility] [address] [place] [address] 11/14/2024 1:15 PM EST Office Visit [facility]HS [facility] [address] [facility] [place] [address] Supriya Fernandes MD [address] [place] [address] 11/28/2024 10:45 AM EST Office Visit Otolaryngology/Head & Neck/Facial Plastic Surgery [address] [place] [place] [address] Lexie Aldridge MD [address] [place] [address] 12/21/2024 1:30 PM EST [facility] [address] [facility] [address] [place] [address] Malaika Guzman PA-C [address] [place] [address] 12/22/2024 12:00 PM EST Office Visit Nephrology, [facility] [address] [place] [address] Keisha Gunn MD [address] [place] [address] 01/22/2025 1:30 PM EDT PulmDiagnostic Pulmonary Function Lab [facility] [address] [facility] [place] [address] [address], [address] [place] [address] 01/22/2025 2:00 PM EDT Office Visit Pulmonary Medicine [facility] [address] [place] [phone] Dominguez Aguilar MD [address] [place] [address] 02/05/2025 10:00 AM EDT Office Visit Rheumatology, [facility] [address] [facility], [place] [address] Rafael Hernandez PA-C [address] [facility] [address] 02/06/2025 1:30 PM EDT Office Visit [facility], [place] [facility] [address] Cherry Warner [facility]C [address] [facility] [address] Scheduled Procedures Name Priority Associated Diagnoses Date/Ti [...] this encounter Medical Devices Implanted Type Area Cv/Cvn Cv Tsc System Operator Device Identifier Shelf Expiration Date Model / Serial / Lot Mesh Perfix Plug Lg [id number] - [id number] Implanted:Qty : 1 on 02/07/2019 by Jonathan Correia DO at OR [facility] Right: Groin CR BARD : DAVOL 09/04/2023 [id number] / / [id number] Cytal Wndmtx 1lyr [id number](150 Units) - [id number] - [id number] Implanted:Qty : 1 on 08/10/2024 by Lexie Aldridge MD at OR [facility] Left: Leg Upper [employer] [id number] 10/07/2025 [id number] / [id number] / [id number] Cytal Wndmtx 1lyr 7x10cm (70 Units) - [id number] - [id number] Implanted:Qty : 1 on 08/10/2024 by Lexie Aldridge MD at OR [facility] Left: Leg Upper [employer] [id number] 01/05/2026 [id number] / [id number] / [id number] documented as of this encounter Advance Directives Documents on File Type Date Recorded Patient Rn Transplant Expl anation Advance Directives and Living Will [...] Colón Adult Child Emergency Contact Care Teams Research Animal Attendant Relationship Specialty Start Date End Date Fuentes Ashton MD [address] [place] [phone] PCP - General Family Medicine 01/30/22 documented as of this encounter
--- OUTSIDE RECORDS SUMMARY | 2024-09-30 18:04 | External Medical Summary | Summary of Care ---
Author Name Unknown Organization [facility] Address [address] [place] [address] Phone [phone] Care Team Providers Care Social Contact Worker Name Role Phone Fuentes Ashton MD Primary Care Provider [phone] Reason for Visit * Reason Onset Date Comments Medication Refill 09/18/2024 Encounter Details Date Type Department Care Team (Late st Contact Info) Description 09/18/2024 Refill Otolaryngology/Head & Neck/Facial Plastic Surgery [address], [place] [phone] Lexie Infante MD [address] [place] [address] SCC (squamous cell carcinoma) Allergies Active Allergy Reactions Criticality Noted Date Comments Aztreonam Hives Medium 10/11/2019 Cephalosporins Rash 05/24/2017 Tolerated cefazolin during August 2024 admission Chlorhexidine Hives,Rash High 01/02/2022 Full body red rash; "skin peeled completely off" Ciprofloxacin Diarrhea Medium 01/28/2015 Iodinated Contrast Media Abdominal pain High 019 Acute kidney failure Levofloxacin Rash Low 07/28/2019 documented as of this encounter (statuses as of 09/18/2024) Medications Apixaban 5 MG Oral Tablet (Eliquis)Indicati [...] Release (PriLOSEC)Indicat ions:Gastroesopha geal reflux disease without esophagitis,alf (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 1 Each 11 07/06/20 24 Active Additional Information Patient not taking.Reported on 08/25/2024 Albuterol Sulfate (2.5 MG/3ML) 0.083% Inhalation Nebulization Solution (Proventil)Indica tions:COPD, group C, by GOLD 2017 classification ([facility]) Inhale 1 Vial via nebulizer every 4 [...] by mouth in the morning. 90 Tablet 09/18/20 24 Active Folic Acid 1 MG Oral TabletIndications :SCC (squamous cell carcinoma) Take 1 Tablet by mouth in the morning. 90 Tablet 09/18/20 24 Active Folic Acid 1 MG [...] as of this encounter (statuses as of 09/18/2024) Active Problems Problem Noted Date Diagnosed Date [...] from 2018 Atherosclerotic heart diseas e of [place] coronary artery without angina pectoris 05/31/2020 Nuclear [...] neoplasm) 0 03/09/2018 Overview (03/09/2018): MRI 02/23 alf (current) use 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 Steroid-induced diabetes [...] as of this encounter (statuses as of 09/18/2024) Resolved Problems Problem Noted Date Diagnosed Date [...] chronic kidney disease 08/03/2023 08/03/2023 Atherosclerosis of [place] co ronary artery without angina pectoris 02/01/2023 [...] as of this encounter (statuses as of 09/18/2024) Immunizations Name Administration Dates Next Due COVID-19 mRNA, LNP-s, No Pre serve, 2-Dose Series ([employer]) 08/15/2021,01/31/2021,01/03/2021 COVID-19, LNP-s, No Preserve , Ruslan-sucrose, Ages 12+ ([employer]) 03/19/2022 COVID-19, MRNA-LNP, PF, 30 M CG/0.3 mL, 12 YRS AND ABOVE, IM ([employer]) 10/25/2023 Covid-19, Mrna, Lnp-s, Pf, B ivalent, 30 Mcg, IM, 12 yrs and above ([employer]) 2022 Pneumococcal Conjugate Vacc, 13 Valent (Prevnar) 01/21/2016 Pneumococcal Conjugate Vacci ne, 20-valent ([id number]) 07/19/2023 Pneumococcal Polysaccharide PPV23 (Pneumovax) 01/13/2011 RSV [...] No 08/23/2024 Are you (or your family) sepncer eless or worried that you might be [...] 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 Authorizing Provider: LEXIE INFANTE Folic Acid 1 MG Oral Tablet 90 Tab*0 Sig: Take 1 Tablet by mouth in the morning. Authorizing Provider: LEXIE INFANTE -------- * Telephone Encounter - Marisa Saravia CPhT - 09/18/2024 1:00 PM EST Pharmacy is requesting a 90-day supply, pre-edited RXs as such. Please review and approve if appropriate. Pending Prescriptions: Disp Refills Vitamin B-12 1000 MCG Oral Tablet (Cyanoc*90 Tab*0 Sig: Take 1 Tablet by mouth in the morning. Folic Acid 1 MG Oral Tablet 90 Tab*0 Sig: Take 1 Tablet by mouth in the morning. Last Visit: 09/15/2024 (in office), Visit date not found (telemedicine) 11/28/2024 If no future appointments scheduled, and last appointment is greater than a year ago, please schedule patient for an appointment Last date the medication was ordered: 08/30/2024 Patient Phone Numbers Labs: Lab Results Component Value Date/Time CREAT 3.6 (H) 09/01/2024 11:50 AM CREAT 2.6 (A) 09/02/2022 12:00 AM CREAT 2.6 (H) 11/11/2020 12:37 PM POTASSIUM 4.7 09/01/2024 11:50 AM POTASSIUM 4.9 08/13/2024 11:18 AM POTASSIUM 4.3 09/02/2022 12:00 AM POTASSIUM 4.7 11/11/2020 12:37 PM TSH 1.57 01/31/2024 09:42 AM TSH 1.54 01/31/2024 09:42 AM TSH 1.12 09/02/2022 12:00 AM TSH 1.71 10/21/2020 09:28 AM LDL 69 01/31/2024 09:42 AM LDL 78 10/21/2020 09:28 AM LDL NOT APPLICABLE 10/21/2020 09:28 AM LDLCALC 79 09/02/2022 12:00 AM ALT 25 09/01/2024 11:50 AM ALT 36 10/01/2020 01:25 PM HGBA1C 6.0 (H) 01/31/2024 09:42 AM HGBA1C 5.8 06/16/2021 12:00 AM HGBA1C 5.9 (H) 10/21/2020 09:28 AM documented in this encounter Plan of Treatment Upcoming Encounters Date Type Department Care Team (Late st Contact Info) Description 09/19/2024 1:15 PM EST Treatment Radiation Oncology, [facility] [address] [place] [address] 09/20/2024 1:15 PM EST Treatment Radiation Oncology, [address] [place] [address] 09/21/2024 1:15 PM EST Treatment Radiation Oncology, [address] [place] [address] 09/22/2024 1:15 PM EST Treatment Radiation Oncology, [address] [place] [address] 09/25/2024 1:15 PM EST Treatment Radiation Oncology, [address] [place] [address] 09/26/2024 1:15 PM EST Treatment Radiation Oncology, [address] [place] [address] 09/27/2024 1:15 PM EST Treatment Radiation Oncology, [address] [place] [address] 09/28/2024 1:15 PM EST Treatment Radiation Oncology, [address] [place] [address] 09/29/2024 1:15 PM EST Treatment Radiation Oncology, [address] [place] [address] 10/02/2024 1:15 PM EST Treatment Radiation Oncology, [address] [place] [address] 10/03/2024 1:15 PM EST Treatment Radiation Oncology, [address] [place] [address] 10/04/2024 1:15 PM EST Treatment Radiation Oncology, [address] [place] [address] 10/06/2024 1:15 PM EST Treatment Radiation Oncology, [address] [place] [address] 10/09/2024 1:15 PM EST Treatment Radiation Oncology, [address] [address] 10/09/2024 2:20 PM EST Office Visit [facility] [address] [place] [phone] David Antunez MD [address] [place] [address] 10/10/2024 1:15 PM EST Treatment Radiation Oncology, [address] [address] 10/11/2024 1:15 PM EST Treatment Radiation Oncology, [address] [address] 10/12/2024 1:15 PM EST Treatment Radiation Oncology, [address] [place] [address] 10/13/2024 1:15 PM EST Treatment Radiation Oncology, [address] [place] [address] 10/16/2024 1:15 PM EST Treatment Radiation Oncology, [address] [place] [address] 10/17/2024 1:15 PM EST Treatment Radiation Oncology, [address] [place] [address] 10/18/2024 1:15 PM EST Treatment Radiation Oncology, [address] [address] 10/19/2024 1:15 PM EST Treatment Radiation Oncology, [address] [address] 10/20/2024 1:15 PM EST Treatment Radiation Oncology, [address] [place] [address] 10/23/2024 1:15 PM EST Treatment Radiation Oncology, [address] [address] 10/24/2024 1:15 PM EST Treatment Radiation Oncology, [address] [address] 10/25/2024 1:15 PM EST Treatment Radiation Oncology, [address] [address] 2024 1:15 PM EST Treatment Radiation Oncology, [address] [address] 10/27/2024 1:15 PM EST Treatment Radiation Oncology, [address] [address] 10/30/2024 1:15 PM EST Treatment Radiation Oncology, [address] [address] 10/31/2024 1:15 PM EST Treatment Radiation Oncology, [address] [address] 11/14/2024 1:15 PM EST Office Visit MOHS Surgery [facility] [address] [place] [address] Supriya Fernandes MD [address] [place] [address] 11/28/2024 10:45 AM EST Office Visit Otolaryngology/Head & Neck/Facial Plastic Surgery [address] [place] [address] Lexie Infante MD [address] [place] [address] 12/21/2024 1:30 PM EST Office Visit Dermatology, Ahmet Rowell [address] [place] [address] [place] [address] Malaika Guzman PA-C [address] [place] [address] 12/22/2024 12:00 PM EST Office Visit Nephrology, [address] [address] Keisha Gunn MD [address] [place] [address] 01/22/2025 1:30 PM EDT PulmDiagnostic Pulmonary Function Lab [facility] [address] [facility] [place] [address] [address], [address] [place] [address] 01/22/2025 2:00 PM EDT Office Visit Pulmonary Medicine [facility] [address] [facility] [place] [phone] Dominguez Aguilar MD [address] [facility] [address] 02/05/2025 10:00 AM EDT Office Visit Rheumatology, [address] [address] Rafael Hernandez PA-C [address] [place] [address] 02/06/2025 1:30 PM EDT Office Visit Cardiology, [address] [place] [address] Cherry Warner PA-C [address] [place] [address] [place] [address] Scheduled Procedures Name Priority Associated Diagnoses Date/Ti [...] this encounter Medical Devices Implanted Type Area Ext Js Developer Device Identifier Shelf Expiration Date Model / Serial / Lot Mesh Perfix Plug Lg [id number] - [id number] Implanted:Qty : 1 on 02/07/2019 by Jonathan Correia DO at OR [facility] Right: Groin CR BARD : DAVOL 09/04/2023 [id number] / / [id number] Cytal Wndmtx 1lyr [id number](150 Units) - [id number] - [id number] Implanted:Qty : 1 on 08/10/2024 by Lexie Infante MD at [place] [facility] Left: Leg Upper [employer] [id number] 10/07/2025 [id number] / [id number] / [id number] Cytal Wndmtx 1lyr 7x10cm (70 Units) - [id number] - [id number] Implanted:Qty : 1 on 08/10/2024 by Lexie Infante MD at [place] [facility] Left: Leg Upper [employer] [id number] 01/05/2026 [id number] / [id number] / [id number] documented as of this encounter Visit Diagnoses Diagnosis Type 2 diabetes mellitus with stage 4 chronic kidney disease, without long-term current use of insulin (HCC)- Primary COPD, group C, by GOLD 2017 classification (HCC) Paroxysmal atrial fibrillation (HCC) Atrial fibrillation Erythema nodosum Stage II pressure ulcer of left buttock (HCC) Pressure ulcer, buttock SCC (squamous cell carcinoma) Squamous cell carcinoma of skin, site unspecified documented in this encounter Advance Directives Documents on File Type Date Recorded Patient Security Clerk Expl anation Advance Directives and Living Will [...] verbally by patient or by statute hierarchy) [facility] Adult Child Emergency Contact Care Teams Social Contact Worker Relationship Specialty Start Date End Date Fuentes Ashton MD [address] [place] [phone] PCP - General Family Medicine 01/30/22 documented as of this encounter
--- OUTSIDE RECORDS SUMMARY | 2024-09-30 18:04 | External Medical Summary | Summary of Care ---
Author Name Unknown Organization [facility] Address [address] [place] [address] Phone [phone] Care Team Providers Care Hand Twister Name Role Phone Fuentes Ashton MD Primary Care Provider [phone] Encounter Details Date Type Department Care Team (Late st Contact Info) Description 09/20/2024 Orders Only Radiation Oncology, [facility] [address] [place] [address] IovoliMansoor MD [address] [place] [address] Allergies Active Allergy Reactions Criticality [...] Release (PriLOSEC)Indicat ions:Gastroesopha geal reflux disease without esophagitis,group home (current) use 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 Take by [...] Inhalation Aerosol Powder Breath ActivatedIndicati ons:COPD, moderate ([facility]) Inhale 2 Puffs by mouth every 4 hours as needed for Shortness of Breath. 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 08/03/2023 08/03/2023 Atherosclerosis of kake co ronary artery without angina pectoris 02/01/2023 [...] mRNA, LNP-s, No Pre serve, 2-Dose Series ([employer]) 08/15/2021,01/31/2021,01/03/2021 COVID-19, LNP-s, No Preserve , Ruslan-sucrose, Ages 12+ ([employer]) 03/19/2022 COVID-19, MRNA-LNP, PF, 30 M CG/0.3 mL, 12 YRS AND ABOVE, IM ([facility]) 10/25/2023 Covid-19, Mrna, Lnp-s, Pf, B ivalent, 30 Mcg, IM, 12 yrs and above ([employer]) 2022 Pneumococcal Conjugate Vacc, 13 Valent (Prevnar) 01/21/2016 Pneumococcal Conjugate Vacci ne, 20-valent (Otzasor15) 07/19/2023 Pneumococcal Polysaccharide PPV23 (Pneumovax) 01/13/2011 RSV [...] Job End 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 Not on file Not on file [...] Team (Late st Contact Info) Description 09/21/2024 1:15 PM EST Treatment Radiation Oncology, [address] [address] 09/22/2024 1:15 PM EST Treatment Radiation Oncology, [address] [address] 09/25/2024 1:15 PM EST Treatment Radiation Oncology, [address] [address] 09/26/2024 1:15 PM EST Treatment Radiation Oncology, [address] [address] 09/27/2024 1:15 PM EST Treatment Radiation Oncology, [address] [address] 09/28/2024 1:15 PM EST Treatment Radiation Oncology, [address] [address] 09/29/2024 1:15 PM EST Treatment Radiation Oncology, [address] [address] 10/02/2024 1:15 PM EST Treatment Radiation Oncology, [address] [address] 10/03/2024 1:15 PM EST Treatment Radiation Oncology, [address] [address] 10/04/2024 1:15 PM EST Treatment Radiation Oncology, [address] [address] 10/06/2024 1:15 PM EST Treatment Radiation Oncology, [address] [address] 10/06/2024 2:00 PM EST [facility] [address] [place] [address] Russel Caceres, [facility] [address] [place] [address] 10/09/2024 1:15 PM EST Treatment Radiation Oncology, [address] [address] 10/10/2024 1:15 PM EST Treatment Radiation Oncology, [address] [address] 10/11/2024 1:15 PM EST Treatment Radiation Oncology, [address] [address] 10/12/2024 1:15 PM EST Treatment Radiation Oncology, [address] [address] 10/13/2024 1:15 PM EST Treatment Radiation Oncology, [address] [address] 10/16/2024 1:15 PM EST Treatment Radiation Oncology, [address] [address] 10/17/2024 1:15 PM EST Treatment Radiation Oncology, [address] [address] 10/18/2024 1:15 PM EST Treatment Radiation Oncology, [address] [address] 10/18/2024 2:20 PM EST Office Visit [address] [address] David Antunez MD [address] [place] [address] 10/19/2024 1:15 PM EST Treatment Radiation Oncology, [address] [address] 10/20/2024 1:15 PM EST Treatment Radiation Oncology, [address] [address] 10/23/2024 1:15 PM EST Treatment Radiation Oncology, [address] [place] [address] 10/24/2024 1:15 PM EST Treatment Radiation Oncology, [address] [address] 10/25/2024 1:15 PM EST Treatment Radiation Oncology, [address] [address] 2024 1:15 PM EST Treatment Radiation Oncology, [address] [address] 10/27/2024 1:15 PM EST Treatment Radiation Oncology, [address] [address] 10/30/2024 1:15 PM EST Treatment Radiation Oncology, [address] [address] 10/31/2024 1:15 PM EST Treatment Radiation Oncology, [address] [address] 11/14/2024 1:15 PM EST Office Visit MOHS Surgery [facility] [address] [place] [address] Supriya Fernandes MD [address] [place] [address] 11/28/2024 10:45 AM EST Office Visit Otolaryngology/Head & Neck/Facial Plastic [facility] [address] [facility] [address] Lexie Aldridge MD [address] [facility] [place] [address] 12/21/2024 1:30 PM EST Office Visit Dermatology, [facility] [address] [facility] [address] [place] [address] Malaika Guzman PA-C [address] [place] [address] 12/22/2024 12:00 PM EST Office Visit Nephrology, [address] [address] Keisha Gunn MD [address] [place] [address] 01/22/2025 1:30 PM EDT PulmDiagnostic Pulmonary Function Lab [facility] [address] [facility] [place] [address] [place], [address] [facility] [place] [address] 01/22/2025 2:00 PM EDT Office Visit Pulmonary Medicine [facility] [address] [facility] [place] [id number] Dominguez Aguilar MD [address] [facility] [place] [address] 02/05/2025 10:00 AM EDT Office Visit Rheumatology, [address] [address] Rafael HernandezRAJEEV [address] [facility] [address] [place] [address] 02/06/2025 1:30 PM EDT Office Visit Cardiology, [place] [address] [place] [address] Cherry Warner PA-C [address] [place] [id number] Scheduled Procedures Name Priority Associated Diagnoses Date/Ti [...] this encounter Medical Devices Implanted Type Area Electrical Continuity Inspector Device Identifier Shelf Expiration Date Model / Serial / Lot Mesh Perfix Plug [id number] [id number] - [id number] Implanted:Qty : 1 on 02/07/2019 by Jonathan Correia DO at OR [facility] Right: Groin CR BARD : DAVOL 09/04/2023 [id number] / / [id number] Cytal Wndmtx 1lyr [id number](150 Units) - [id number] - [id number] Implanted:Qty : 1 on 08/10/2024 by Lexie Aldridge MD at [place] [facility] Left: Leg Upper [employer] [id number] 10/07/2025 [id number] / [id number] / [id number] Cytal Wndmtx 1lyr 7x10cm (70 Units) - [id number] - [id number] Implanted:Qty : 1 on 08/10/2024 by Lexie Aldridge MD at [place] [facility] Left: Leg Upper [employer] [id number] 01/05/2026 [id number] / [id number] / [id number] documented as of this encounter Procedures Procedure Name Priority Date/Time Associated Diagnosis Comments RAD ONC ARIA SESSION SUMMARY Routine 09/20/2024 1:22 PM EST documented in this encounter Results * RAD ONC ARIA SESSION SUMMARY (09/20/2024 1:22 PM EST) Course ID C1 ARIA RADIATION ONCOLOGY Course Intent Post-op ARIA RADIATION ONCOLOGY Course Start Date 09/04/2024 12:46 PM ARIA RADIATION ONCOLOGY RAD ONC ARIA SESSION NUMBER 2 ARIA RADIATION ONCOLOGY Course First Treatment Date 09/19/2024 1:24 PM ARIA RADIATION ONCOLOGY Course Last Treatment Date 09/20/2024 1:20 PM ARIA RADIATION ONCOLOGY Course Elapsed Days 1 ARIA RADIATION ONCOLOGY Reference Point ID [id number] ARIA RADIATION ONCOLOGY Reference Point Dosage Given to Date 4 Gy ARIA RADIATION ONCOLOGY Reference Point Session Dosage Given 2 Gy ARIA RADIATION ONCOLOGY Plan ID 10-L Neck ARIA RADIATION ONCOLOGY Plan Name 10-L Neck ARIA RADIATION ONCOLOGY Plan Fractions Treated to Date 2 ARIA RADIATION ONCOLOGY Plan Total Fractions Prescribed 30 ARIA RADIATION ONCOLOGY Plan Prescribed Dose Per Fraction 2 Gy ARIA RADIATION ONCOLOGY Plan Total Prescribed Dose 6,000 cGy ARIA RADIATION ONCOLOGY Plan Primary Reference Point [id number] ARIA RADIATION ONCOLOGY 09/20/2024 1:22 PM EST us No Physician Data Unknown DRESSINGS Final Result ARIA RADIATION ONCOLOGY documented in this encounter Advance Directives Documents on File Type Date Recorded Patient Patient Relations Director Expl anation Advance Directives and Living [...] verbally by patient or by statute hierarchy) [facility] Adult Child Emergency Contact Care Teams Hand Twister Relationship Specialty Start Date End Date Fuentes Ashton MD [address] [place] [address] PCP - General Family Medicine 01/30/22 documented as of this encounter
--- OUTSIDE RECORDS SUMMARY | 2024-09-30 18:05 | External Medical Summary | Summary of Care ---
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 Name Role Phone Fuentes Ashton MD Primary Care Provider [phone] Encounter Details Date Type Department Care Team (Late st Contact Info) Description 09/14/2024 8:00 AM EST Scheduled Telephone Care Coordination and Integration [address] [place] [address] Jonah Scott [facility] Board Certified Family Physician [address], [place] [id number] Allergies Active Allergy Reactions Criticality Noted Date Comments Aztreonam Hives Medium 10/11/2019 Cephalosporins Rash 05/24/2017 Tolerated cefazolin during August 2024 admission Chlorhexidine Hives,Rash High 01/02/2022 Full body red rash; "skin peeled completely off" Ciprofloxacin Diarrhea Medium 01/28/2015 Iodinated Contrast Media Abdominal pain High 019 Acute kidney failure Levofloxacin Rash Low 07/28/2019 documented as of this encounter (statuses as of 09/14/2024) Medications Medication Sig Dispensed Refills Start Date End Date Status Apixaban 5 MG Oral Tablet (Eliquis)Indication s:Paroxysmal atrial fibrillation (HCC) Take by mouth 1 Tablet in the morning AND 1 Tablet before bedtime. 60 Tablet 01/05/2022 Active Additional Information Patient taking differently:5 mg Oral BID (.AM/PM),Pt off Eliquis as of 08/07 for surgery, Reported on 08/08/2024 Tylenol 325 MG Oral Capsule (Acetaminophen) Take by mouth 2 Tablets every 6 hours as needed for Pain, Mild or Other (Fever, Headache). 90 Capsule 01/05/2022 Active Levothyroxine Sodium 50 MCG Oral Tablet (Levoxyl)Indication s:Acquired hypothyroidism (at least 30 min prior to breakfast or other meds)take 1 tablet by mouth once daily AT LEAST 30 MINUTES PRIOR TO BREAKFAST OR OTHER MEDS 30 Tablet 01/05/2022 Active Omeprazole 20 MG Oral Capsule Delayed Release (PriLOSEC)Indicatio ns:Gastroesophageal reflux disease without esophagitis,buttermaker (current) use 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 Take by mouth 1 Capsule in the morning. 30 minutes before a meal. 30 Capsule 01/05/2022 Active Metoprolol Succinate ER 25 MG Oral Tablet Extended Release 24 Hour (Toprol XL) Take 1 Tablet by mouth in the morning. 15 Tablet 09/14/2023 Active Testosterone Cypionate 100 MG/ML Intramuscular Solution inject 0.75 milliliter intramuscularly every 7 days 09/16/2023 Active Umeclidinium-Vilant claudia 62.5-25 MCG/ACT Inhalation Aerosol Powder Breath Activated (ANORO ellipta)Indications :COPD, moderate (HCC) Inhale 1 Puff by mouth in the morning. 180 Each 3 01/28/2024 Active Furosemide 20 MG Oral Tablet (Lasix)Indications: Bilateral lower extremity edema Take 1 Tablet by mouth daily as needed (lower extremity edema). 30 Tablet 11 03/31/2024 Active Sodium Bicarbonate 650 MG Oral Tablet Take 1 Tablet by mouth in the morning and 1 Tablet before bedtime. 180 Tablet 3 04/19/2024 Active predniSONE 5 MG Oral Tablet (Deltasone)Indicati ons:Erythema nodosum Take 1.5 Tablets by mouth in the morning. 135 Tablet 4 05/03/2024 Active Calcitriol 0.25 MCG Oral Capsule (Rocaltrol)Indicati ons:Renal osteodystrophy Take 1 Capsule by mouth in the morning. 30 Capsule 5 05/23/2024 Active Albuterol Sulfate 108 (90 Base) MCG/ACT Inhalation Aerosol Powder Breath ActivatedIndication s:COPD, moderate (HCC) Inhale 2 Puffs by mouth every 4 hours as needed for Shortness of Breath. 1 Each 11 07/06/2024 Active Additional Information Patient not taking.Reported on 08/25/2024 Albuterol Sulfate (2.5 MG/3ML) 0.083% Inhalation Nebulization Solution (Proventil)Indicati ons:COPD, group C, by GOLD 2017 classification ([facility]) Inhale 1 Vial via nebulizer every 4 hours as needed for Shortness of Breath or Wheezing. 360 mL 11 07/06/2024 Active Allopurinol 100 MG Oral Tablet (Zyloprim) Take 2 Tablets by mouth in the morning. 180 Tablet 4 07/17/2024 Active Econazole Nitrate 1 % External Cream (Spectazole)Indicat ions:Rash and nonspecific skin eruption Apply to affected area on buttock, back and legs twice a day for 6 weeks 170 g 3 07/24/2024 Active Aquaphor External Ointment Apply topically to affected area 3 times a day. Apply to neck three times daily 396 g 08/22/2024 Active Zinc Oxide 40 % External Paste (Desitin)Indication s:Pressure injury of left buttock, stage 1 Apply to buttocks as needed. 57 g 08/25/2024 Active Folic Acid 1 MG Oral TabletIndications:S CC (squamous cell carcinoma) Take 1 Tablet by mouth in the morning. 30 Tablet 08/30/2024 Active Vitamin B-12 1000 MCG Oral Tablet (Cyanocobalamin)Ind ications:SCC (squamous cell carcinoma) Take 1 Tablet by mouth in the morning. 30 Tablet 08/30/2024 Active Atorvastatin Calcium 20 MG Oral Tablet (Lipitor)Indication s:Dyslipidemia, goal LDL below 70 Take 1 Tablet by mouth at bedtime. 90 Tablet 1 09/04/2024 Active Hospital, Clinic, or Other Facility Administered Medication Ordered Dose Route Frequency Start Date End Date Status oxygen GASIndications:Iron deficiency anemia, unspecified iron deficiency anemia type IN OXYGEN 08/28/2024 Active documented as of this encounter (statuses as of 09/14/2024) Active Problems Problem Noted Date Diagnosed Date [...] Overview: Per COPD GOLD Classification Gynecomastia 01/06/2021 Overview: Jul 24, 2021 Entered By: DONNA CAREY MD Comment: Ultrasound L breast [facility] 01/06/2021 Atherosclerosis of abdominal aorta 06/21/2020 Overview: CT Abd/pelvis from 2018 Atherosclerotic heart diseas e of [place] coronary artery without angina pectoris 05/31/2020 Nuclear senile cataract 04/26/2020 Posterior subcapsular polar senile cataract 04/08 CKD (chronic kidney disease) stage 4, GFR 15-29 ml/min 07/17/2019 Chronic anticoagulation 04/03/2019 Vitamin D deficiency 11/17/2018 Senile osteoporosis 09/06/2018 Compression fracture of L2 vertebra with routine healing 08/17/2018 Paroxysmal atrial fibrillation 07/08/2018 Last Assessment & Plan: Rate controlled on metoprolol Continue apixaban History of acute tubular necrosis 06/29/2018 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 IPMN (intraductal papillary mucinous neoplasm) 0 03/09/2018 Overview: 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 (current) use 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 Steroid-induced diabetes 02/26/2018 Spondylolisthesis of lumbar region 02/22/2018 Lumbar stenosis with neurogenic claudication Spinal stenosis of lumbar re gion with neurogenic claudication 02/05/2018 Mediastinal lymphadenopathy 10/19/2017 Overview: CT 07/2017 Acquired hypothyroidism 10/09/2017 Erythema nodosum 09/28/2017 Last Assessment & Plan: Followed by rheumatology On prednisone 7.5mg daily Dyslipidemia, goal LDL below 70 01/21/2015 HTN, goal below 140/90 10/18/2014 Essential hypertension 03/12/2014 Overview: ICD-10 update of inactive term Gastroesophageal reflux disease without esophagi tis 03/12/2014 LIZZ (acute kidney injury) documented as of this encounter (statuses as of 09/14/2024) Resolved Problems Problem Noted Date Diagnosed Date [...] kidney disease 08/03/2023 08/03/2023 Atherosclerosis of [place] co ronary artery without angina pectoris 02/01/2023 05/18/2023 COPD, group D, by GOLD 2017 classification 10/19/2022 01/05/2024 Overview: Per COPD GOLD Classification Stage II pressure ulcer of left buttock 02/06/2022 07/19/2023 Last Assessment & Plan: Offload pressure, reports improving. Home health monitoring. Calmoseptine to area daily and prn COPD, group C, by GOLD 2017 classification 01/19/2022 10/22/2022 Overview: Per COPD GOLD Classification BMI 24. Flow loops obstructed. Spirometry is normal. There is no significant bronchodilator response. No prior PFT to compare.This interpretation has been electronically signed: Franco Hamilton 08/15/2020 05:46:38 PM Specimen Collected: 08/12/20 09:23 Last Resulted: 08/12/20 09:23 Last Assessment & Plan: Stable Continue advair Using neb twice daily Acute renal failure superimp osed on chronic kidney disease 12/16/2021 02/02/2022 Acute respiratory failure with hypoxia 12/16/2021 02/06/2022 Multifocal pneumonia 12/16/2021 022 Hyperkalemia 12/16/2021 07/19/2023 Sepsis 12/16/2021 03/24/2024 Overview: acute Diet-controlled diabetes mellitus 03/03/2021 05/19/2023 Moderate [...] disease, not on chronic dialysis 08/22/2019 10/09/2019 Overview: ckd 4 ? Bilateral pneumonia 08/08/2019 09/19/20 19 Overview: Acute, resolved? 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 01/06/2021 Aspergillosis 07/17/2019 01/08/2021 Overview: history of Aspergillosis on the note on [...] 06/23/2018 09/14/2023 History of pneumonia 06/22/2018 019 Overview: B/l PNA 06/2018 Acute pancreatitis 03/09/2018 8 Severe malnutrition 02/27/2018 11/22/19 19 Type 2 diabetes, HbA1c goal < 7% 02/26/2018 06/24/2019 Type 1 diabetes mellitus wit h ketoacidosis without coma 02/26/2018 03/09/2018 Polydipsia 02/26/2018 03/09/2018 Polyuria 02/26/2018 04/14/2018 Enteritis 10/09/2017 04/14/2018 Tinea cruris 09/28/2017 11/22/2018 Pharyngoesophageal dysphagia 08/05/2017 09/28/2017 Myalgia 11/19/2016 04/29/2017 Erythema nodosum 10/19/2016 04/29/2017 Claudication of both lower extremities 08/27/2016 10/22/2017 Overview: JUAN from 2016 show no evidence of PVD. Screen for colon cancer 09/05/201504/09 Overview: Colonoscopy 09/04/2015: hemorrhoids only - 5yr Abdominal aortic aneurysm (A AA) without rupture 07/11/2015 07/19/2023 Overview: 09/01/16: 3.78cm - repeat 1 yr 01/27/16: US: 3.87cm AAA - repeat 6 months 07/11/15: sts he had an US in the past - will check records Rash and nonspecific skin eruption 07/11/2015 01/21/2016 Pure hypercholesterolemia 03/12/2014 ATN (acute tubular necrosis) 2019 documented as of this encounter (statuses as of 09/14/2024) Immunizations Name Administration Dates Next Due COVID-19 mRNA, LNP-s, No Pre serve, 2-Dose Series (MiniMonos) 08/15/2021,01/31/2021,01/03/2021 COVID-19, LNP-s, No Preserve , Ruslan-sucrose, Ages 12+ (Pfizer) 03/19/2022 COVID-19, MRNA-LNP, PF, 30 M CG/0.3 mL, 12 YRS AND ABOVE, IM (SunnyBump-Comirnat) 10/25/2023 Covid-19, Mrna, Lnp-s, Pf, B ivalent, 30 Mcg, IM, 12 yrs and above (MiniMonos) 2022 Pneumococcal Conjugate Vacc, 13 Valent (Prevnar) 01/21/2016 Pneumococcal Conjugate Vacci ne, 20-valent ([id number]) 07/19/2023 Pneumococcal Polysaccharide PPV23 (Pneumovax) 01/13/2011 RSV [...] No 08/23/2024 Does the household have a [facility] source [facility] income? (Household - for [...] Assigned at Male 05/30/2019 10:32 AM EDT Gender Identity Male 05/30/2019 10:32 AM EDT Sexual Orientation Straight 05/30/2019 10 :32 AM EDT Job Start Date Occupation Industry Not on file Not on file Not on file documented as of this encounter Functional Status Functional Status Response Date of Assess ment Are you deaf or do you have serious difficulty h earing? No 08/11/2024 Are you blind or do you have serious difficulty seeing, even when wearing glasses? No 08/11/2024 Do you have serious difficul ty walking or climbing stairs? (5 years old or older) No 08/11/2024 Do you have difficulty dress ing or bathing? (5 years old or older) No 08/11/2024 Because of a physical, menta l, or emotional condition, do you have difficulty doing errands alone such as visiting a doctor s office or shopping? (15 years old or older) No 08/11/20 Cognitive Status Response Date of Assessm ent Because of a physical, menta l, or emotional condition, do you have serious difficulty concentrating, remembering, or making decisions? (5 years old or older) No 08/11/2024 documented as of this encounter Progress Notes * Jonah Scott [facility] Board Certified Family Physician - 09/14/2024 10:57 AM EST Telemedicine visit: No [facility] Board Certified Family Physician (MANE) documentation: CHW follow up phone call for RNCM and reached the patient's voicemail. No message was able to be left at this time. Bj Scott Community [facility] Worker Lead [facility] [phone] Electronically signed by Jonah Scott [facility] Board Certified Family Physician at 09/14/2024 10:57 AM EST documented in this encounter Plan of Treatment Upcoming Encounters Date Type Department Care Team (Late st Contact Info) Description 09/15/2024 2:30 PM EST Office Visit Otolaryngology/Head & Neck/Facial Plastic Surgery [address] [place] [address] Lexie Aldridge MD [address] [place] [address] 09/15/2024 3:45 PM EST Office Visit Dental Medicine, [place] [address] [place] [address] Russel Caceres DMD [address] [place] [address] 09/19/2024 1:15 PM EST Treatment Radiation Oncology, [address] [address] 09/20/2024 1:15 PM EST Treatment Radiation Oncology, [address] [address] 09/21/2024 1:15 PM EST Treatment Radiation Oncology, [address] [address] 09/22/2024 1:15 PM EST Treatment Radiation Oncology, [address] [address] 09/25/2024 1:15 PM EST Treatment Radiation Oncology, [address] [address] 09/26/2024 1:15 PM EST Treatment Radiation Oncology, [address] [place] [address] 09/27/2024 1:15 PM EST Treatment Radiation Oncology, [address] [place] [address] 09/28/2024 1:15 PM EST Treatment Radiation Oncology, [address] [address] 09/29/2024 1:15 PM EST Treatment Radiation Oncology, [address] [place] [address] 10/02/2024 1:15 PM EST Treatment Radiation Oncology, [address] [address] 10/03/2024 1:15 PM EST Treatment Radiation Oncology, [address] [address] 10/04/2024 1:15 PM EST Treatment Radiation Oncology, [address] [address] 10/06/2024 1:15 PM EST Treatment Radiation Oncology, [address] [address] 10/09/2024 1:15 PM EST Treatment Radiation Oncology, [address] [address] 10/09/2024 2:20 PM EST Office Visit [address] [place] [id number] David Antunez [facility] [address] [facility] [address] 10/10/2024 1:15 PM EST Treatment Radiation Oncology, [address] [place] [address] 10/11/2024 1:15 PM EST Treatment Radiation Oncology, [address] [place] [address] 10/12/2024 1:15 PM EST Treatment Radiation Oncology, [address] [place] [address] 10/13/2024 1:15 PM EST Treatment Radiation Oncology, [address] [place] [address] 10/16/2024 1:15 PM EST Treatment Radiation Oncology, [address] [place] [address] 10/17/2024 1:15 PM EST Treatment Radiation Oncology, [address] [place] [address] 10/18/2024 1:15 PM EST Treatment Radiation Oncology, [address] [place] [address] 10/19/2024 1:15 PM EST Treatment Radiation Oncology, [address] [place] [address] 10/20/2024 1:15 PM EST Treatment Radiation Oncology, [address] [place] [address] 10/23/2024 1:15 PM EST Treatment Radiation Oncology, [address], [place] [address] 10/24/2024 1:15 PM EST Treatment Radiation Oncology, [address] [place] [address] 10/25/2024 1:15 PM EST Treatment Radiation Oncology, [place] [address] [facility] [place] [address] 2024 1:15 PM EST Treatment Radiation Oncology, [facility] [address] [place] [address] 10/27/2024 1:15 PM EST Treatment Radiation Oncology, [facility] [address] [place] [address] 10/30/2024 1:15 PM EST Treatment Radiation Oncology, [facility] [address] [place] [address] 10/31/2024 1:15 PM EST Treatment Radiation Oncology, [facility] [address] [place] [address] 11/14/2024 1:15 PM EST Office Visit [facility] Surgery [facility] [address] [facility] [place] [address] Supriya Fernandes MD [address] [facility] [place] [address] 12/21/2024 1:30 PM EST Office [facility], [facility] [address] [facility] [address] [place] [address] Malaika Guzman PA-C [address] [facility] [address] 12/22/2024 12:00 PM EST Office Visit Nephrology, [facility] [address] [facility], [place] [address] Keisha Gunn MD [address] [place] [address] 01/22/2025 1:30 PM EDT PulmDiagnostic Pulmonary Function Lab [facility] [address] [facility] [place] [address] [address], [address] [address]- 01/22/2025 2:00 PM EDT Office Visit Pulmonary Medicine [facility] [address] [place] [phone] Dominguez Aguilar MD [address] [place] [address] 02/05/2025 10:00 AM EDT Office Visit Rheumatology, [facility] [address] [facility], [place] [address] Rafael Hernandez PA-C [address] [facility] [address] 02/06/2025 1:30 PM EDT Office Visit [facility], [place] [facility] [address] Cherry Warner PA-C [address] [facility] [address] Scheduled Procedures Name Priority Associated Diagnoses Date/Ti [...] this encounter Medical Devices Implanted Type Area Technical Internship Device Identifier Shelf Expiration Date Model / Serial / Lot Mesh Perfix Plug [id number] [id number] - [id number] Implanted:Qty : 1 on 02/07/2019 by Jonathan Correia DO at [facility] Right: Groin CR BARD : DAVOL 09/04/2023 [id number] / / [id number] Cytal Wndmtx 1lyr [id number](150 Units) - [id number] - [id number] Implanted:Qty : 1 on 08/10/2024 by Lexie Aldridge MD at OR [facility] Left: Leg Upper [employer] [id number] 10/07/2025 [id number] / [id number] / [id number] Cytal Wndmtx 1lyr 7x10cm (70 Units) - [id number] - [id number] Implanted:Qty : 1 on 08/10/2024 by Lexie Aldridge MD at OR [facility] Left: Leg Upper [employer] [id number] 01/05/2026 [id number] / [id number] / [id number] documented as of this encounter Advance Directives Documents on File Type Date Recorded Patient Prompt Care Rn Expl anation Advance Directives and Living Will [...] Colón Adult Child Emergency Contact Care Teams 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
--- OUTSIDE RECORDS SUMMARY | 2024-09-30 18:05 | External Medical Summary | Summary of Care ---
Author Name Unknown Organization [facility] Address [address] [place] [address] Phone [phone] Care Team Providers Care Diamond Sizer And Sorter Name Role Phone Fuentes Ashton MD Primary Care Provider [phone] Reason for Referral * Evaluate & Treat - Unlimited Visits (Within 10 days (routine)) - Pending Review Specialty Diagnoses / Procedures Referred By Ayanna rios Referred To Contact HOME CARE / Home Care Diagnoses Pressure injury of left buttock, stage 1 Squamous cell carcinoma of neck Ambulatory dysfunction Allen Medina PA-C [address] [place] [address] Referral ID Status Reason Start Date Expiration Date Visits Requested Visits Authorized [id number] Pending Review Specialty Services Required [phone] Question Answer Referral Priority Within 10 days (routine) Where should this appointment be scheduled? Pablo Jonse Documentation of Sddz-iw-Enii Encounter Addendum Patient Name: Kennedy Davis I certify that this patient is under my care and that I, or a nurse practitioner or physician's land surveyor assistant working with me, had a hmbi-gc-ocuy encounter that meets the physician jhta-dk-hgbm encounter requirements with this patient on: 08-25-[address] Mejia The encounter with the patient was in whole, or in part, for the following medical condition, which is the primary reason for home health care (List medical condition): Wound care I certify that, based on my findings, the following services are medically necessary home health services: Nursing To provide the following care/treatments: (All hospitalists not following the patient after discharge should complete this section): Complete wound care treatment as per ENT Primary Care Physician to follow home care plan of care after discharge: Wound care treatment as per ENT My clinical findings support the need for the above services because: Wound care treatment as per ENT Further, I certify that my clinical findings support that this patient is homebound (i.e. Absences from home require considerable and taxing effort and are for medical reasons or taoist services or infrequently or of short duration when for other reason) because: Wound care treatment as per ENT Physician Signature: Date of Signature: Physician Printed Name: Allen Medina PA-C * Evaluate & Treat - Unlimited Visits (Within 10 days (routine)) - Pending Review Specialty Diagnoses / Procedures Referred By Ayanna rios Referred To Contact HOME CARE / Home Care Diagnoses Pressure injury of left buttock, stage 1 Squamous cell carcinoma of neck Ambulatory dysfunction [facility] [address] [facility] [address] Referral ID Status Reason Start Date Expiration Date Visits Requested Visits Authorized [id number] Pending Review Specialty Services Required [phone] Question Answer Referral Priority Within 10 days (routine) Where should this appointment be scheduled? Pablo Comments Documentation of Gabd-uy-Vnpl Encounter Addendum Patient Name: Kennedy Davis I certify that this patient is under my care and that I, or a nurse practitioner or physician's land surveyor assistant working with me, had a dzuq-mb-rtpi encounter that meets the physician litf-fs-sbxa encounter requirements with this patient on: 08/25/24 The encounter with the patient was in whole, or in part, for the following medical condition, which is the primary reason for home health care (List medical condition): Home PT/OT, wound care I certify that, based on my findings, the following services are medically necessary home health services: Physical Therapy To provide the following care/treatments: (All hospitalists not following the patient after discharge should complete this section): n/a Primary Care Physician to follow home care plan of care after discharge: Fuentes Ashton MD My clinical findings support the need for the above services because: Pressure injury of left buttock, stage 1and Ambulatory dysfunction. Further, I certify that my clinical findings support that this patient is homebound (i.e. Absences from home require considerable and taxing effort and are for medical reasons or taoist services or infrequently or of short duration when for other reason) because. Physician Signature: Date of Signature: Physician Printed Name: Malaika Morales LPN Reason for Visit * Reason Onset Date Comments Advice 08/30/2024 Order Request 08/30/2024 Encounter Details Date Type Department Care Team (Late st Contact Info) Description 08/30/2024 Telephone [facility] [address] [place] [phone] Fuentes Ashton MD [address] [place] [address] Advice; Order Request Allergies Active Allergy Reactions Criticality Noted Date Comments Aztreonam Hives Medium 10/11/2019 Cephalosporins Rash 05/24/2017 Tolerated cefazolin during August 2024 admission Chlorhexidine Hives,Rash High 01/02/2022 Full body red rash; "skin peeled completely off" Ciprofloxacin Diarrhea Medium 01/28/2015 Iodinated Contrast Media Abdominal pain High 019 Acute kidney failure Levofloxacin Rash Low 07/28/2019 documented as of this encounter (statuses as of 09/07/2024) Medications Medication Sig Dispensed Refills Start Date End Date Status Apixaban 5 MG Oral Tablet (Eliquis)Indicatio ns:Paroxysmal atrial fibrillation (HCC) Take by mouth 1 Tablet in the morning AND 1 Tablet before bedtime. 60 Tablet 2 Active Additional Information Patient taking differently:5 mg Oral BID (.AM/PM),Pt off Eliquis as of 08/07 for surgery, Reported on 08/08/2024 Tylenol 325 MG Oral Capsule (Acetaminophen) Take by mouth 2 Tablets every 6 hours as needed for Pain, Mild or Other (Fever, Headache). 90 Capsule 2 Active Levothyroxine Sodium 50 MCG Oral Tablet (Levoxyl)Indicatio ns:Acquired hypothyroidism (at least 30 min prior to breakfast or other meds)take 1 tablet by mouth once daily AT LEAST 30 MINUTES PRIOR TO BREAKFAST OR OTHER MEDS 30 Tablet 2 Active Omeprazole 20 MG Oral Capsule Delayed Release (PriLOSEC)Indicati ons:Gastroesophage al reflux disease without esophagitis,[employer] (current) use 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 Take by mouth 1 Capsule in the morning. 30 minutes before a meal. 30 Capsule 2 Active Metoprolol Succinate ER 25 MG Oral Tablet Extended Release 24 Hour (Toprol XL) Take 1 Tablet by mouth in the morning. 15 Tablet 3 Active Testosterone Cypionate 100 MG/ML Intramuscular Solution inject 0.75 milliliter intramuscularly every 7 days 3 Active Umeclidinium-Vilan terol 62.5-25 MCG/ACT Inhalation Aerosol Powder Breath Activated (ANORO ellipta)Indication s:COPD, moderate (HCC) Inhale 1 Puff by mouth in the morning. 180 Each 3 4 Active Furosemide 20 MG Oral Tablet (Lasix)Indications :Bilateral lower extremity edema Take 1 Tablet by mouth daily as needed (lower extremity edema). 30 Tablet 11 4 Active Sodium Bicarbonate 650 MG Oral Tablet Take 1 Tablet by mouth in the morning and 1 Tablet before bedtime. 180 Tablet 3 4 Active predniSONE 5 MG Oral Tablet (Deltasone)Indicat ions:Erythema nodosum Take 1.5 Tablets by mouth in the morning. 135 Tablet 4 4 Active Calcitriol 0.25 MCG Oral Capsule (Rocaltrol)Indicat ions:Renal osteodystrophy Take 1 Capsule by mouth in the morning. 30 Capsule 5 4 Active Albuterol Sulfate 108 (90 Base) MCG/ACT Inhalation Aerosol Powder Breath ActivatedIndicatio ns:COPD, moderate ([facility]) Inhale 2 Puffs by mouth every 4 hours as needed for Shortness of Breath. 1 Each 11 4 Active Additional Information Patient not taking.Reported on 08/25/2024 Albuterol Sulfate (2.5 MG/3ML) 0.083% Inhalation Nebulization Solution (Proventil)Indicat ions:COPD, group C, by GOLD 2017 classification ([facility]) Inhale 1 Vial via nebulizer every 4 hours as needed for Shortness of Breath or Wheezing. 360 mL 11 4 Active Allopurinol 100 MG Oral Tablet (Zyloprim) Take 2 Tablets by mouth in the morning. 180 Tablet 4 4 Active Econazole Nitrate 1 % External Cream (Spectazole)Indica tions:Rash and nonspecific skin eruption Apply to affected area on buttock, back and legs twice a day for 6 weeks 170 g 3 4 Active Aquaphor External Ointment Apply topically to affected area 3 times a day. Apply to neck three times daily 396 g 4 Active Zinc Oxide 40 % External Paste (Desitin)Indicatio ns:Pressure injury of left buttock, stage 1 Apply to buttocks as needed. 57 g 4 Active PredniSONE (DELTASONE) 20 MG TabletIndications: Contact dermatitis Take 2 Tabs by mouth daily for 5 days. 10 Tab 0 5 09/05/20 24 Discontinu ed(End of Procedure) PredniSONE (DELTASONE) 20 MG TabletIndications: Dysphagia, unspecified type,Acute pharyngitis, unspecified etiology,Ptosis of left eyelid Take 2 Tabs by mouth daily for 7 days. 14 Tab 8 09/05/20 24 Discontinu ed(End of Procedure) predniSONE 20 MG Oral Tablet (Deltasone)Indicat ions:COPD with acute exacerbation (HCC) Take by mouth 2 Tablets in the morning for 5 days. 10 Tablet 2 09/05/20 Discontinu ed(End of Procedure) Atorvastatin Calcium 20 MG Oral Tablet (Lipitor)Indicatio ns:Dyslipidemia, goal LDL below 70 Take 1 Tablet by mouth at bedtime. 90 Tablet 3 3 09/02/20 Discontinu ed(Refill) Doxycycline Monohydrate 100 MG Oral Capsule Take 1 Capsule by mouth in the morning and 1 Capsule before bedtime. Do all this for 7 days. 14 Capsule 4 09/05/20 Discontinu ed(End of Procedure) Folic Acid 1 MG Oral Tablet Take 1 Tablet by mouth in the morning. 30 Tablet 4 08/29/20 Discontinu ed(Refill) Vitamin B-12 1000 MCG Oral Tablet (Cyanocobalamin) Take 1 Tablet by mouth in the morning. 30 Tablet 4 08/29/20 Discontinu ed(Refill) Doxycycline Monohydrate 100 MG Oral CapsuleIndications :Squamous cell carcinoma of neck Take 1 Capsule by mouth in the morning and 1 Capsule before bedtime. Do all this for 7 days. 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) 0 03/09/2018 Overview: MRI 02/23 [employer] (current) use 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 Steroid-induced diabetes [...] as of this encounter (statuses as of 09/07/2024) Resolved Problems Problem Noted Date Diagnosed Date [...] chronic kidney disease 08/03/2023 08/03/2023 Atherosclerosis of [place] co ronary artery without angina pectoris 02/01/2023 [...] as of this encounter (statuses as of 09/07/2024) Immunizations Name Administration Dates Next Due COVID-19 mRNA, LNP-s, No Pre serve, 2-Dose Series (Ambiq Micro) 08/15/2021,01/31/2021,01/03/2021 COVID-19, LNP-s, No Preserve , Ruslan-sucrose, Ages 12+ (Pfizer) 03/19/2022 COVID-19, MRNA-LNP, PF, 30 M CG/0.3 mL, 12 YRS AND ABOVE, IM ([facility]) 10/25/2023 Covid-19, Mrna, Lnp-s, Pf, B ivalent, 30 Mcg, IM, 12 yrs and above (Ambiq Micro) 2022 Pneumococcal Conjugate Vacc, 13 Valent (Prevnar) 01/21/2016 Pneumococcal Conjugate Vacci ne, 20-valent ([id number]) 07/19/2023 Pneumococcal Polysaccharide PPV23 (Pneumovax) 01/13/2011 RSV [...] No 08/23/2024 Does the household have a [facility] source of income? (Household - for [...] No 08/11/2024 documented as of this encounter Miscellaneous Notes * Telephone Encounter - Pastora Hernández OSA - 09/07/2024 10:28 AM EDT Referral faxed to [facility] * Addendum Note - Allen Medina PA-C - 09/07/2024 10:05 AM EDTAddended by: ALLEN MEDINA on: 09/07/2024 10:05 AM Modules accepted: Orders * Telephone Encounter - Allen Medina PA-C - 09/07/2024 10:04 AM EDT Home health referral placed * Addendum Note - Devan Narayanan MD - 08/31/2024 7:59 AM EDT Addended by: DEVAN NARAYANAN on: 08/31/2024 07:59 AM Modules accepted: Orders * Addendum Note - Malaika Morales LPN - 08/30/2024 4:17 PM EDTAddended by: MALAIKA MORALES on: 08/30/2024 04:17 PM Modules accepted: Orders * Telephone Encounter - Malaika Morales LPN - 08/30/2024 4:17 PM EDT New home health referral pending * Telephone Encounter - Deena Lau OSA - 08/30/2024 2:58 PM EDT [facility] calling requesting order to state in home PT /OT as well as the wound care is not considered long term as pt was directed to use Desitin please place new order to in home PT /OTas well as something more in depth about wound * Telephone Encounter - Gabriela Boone RN - 08/30/2024 1:21 PM EDT Confirmed pt's address and insurance with [facility]. Intake nurse says they typically try make home visit in 24 to 28 hours once referral is reviewed and case is accepted. * Telephone Encounter - Rachael Santos OSA - 08/30/2024 9:42 AM EDT Home health wants to verify patients address and she also wants to know about the [facility] insurance . Please call documented in this encounter Plan of Treatment Upcoming Encounters Date Type Department Care Team (Late st Contact Info) Description 09/15/2024 2:30 PM EST Office Visit Otolaryngology/Head & Neck/Facial Plastic Surgery [address] [place] [facility] [place] [address] Lexie Aldridge MD [address] [place] [address] 09/15/2024 3:45 PM EST Office Visit [facility] [place] [address] [facility] [place] [address] Russel Caceres, JESSICA [address] [place] [facility] [place] [address] 10/09/2024 2:20 PM EST Office Visit [facility] [place] [address] [facility] [place] [phone] David Antunez MD [address] [place] [address] 11/14/2024 1:15 PM EST Office Visit MOHS Surgery [facility] [address] [place] [address] Supriya Fernandes MD [address] [place] [address] 12/21/2024 1:30 PM EST Office Visit Dermatology, [address] [place] [address] [place] [address] Malaika Guzman PA-C [address] [place] [address] 12/22/2024 12:00 PM EST Office Visit Nephrology, [address] [address] Keisha Gunn MD [address] [place] [address] 01/22/2025 1:30 PM EDT PulmDiagnostic Pulmonary Function Lab [facility] [address] [facility] [place] [address] [address], [address] [facility] [place] [address] 01/22/2025 2:00 PM EDT Office Visit Pulmonary Medicine [facility] [address] [place] [id number] Dominguez Aguilar MD [address] [facility] [place] [address] 02/05/2025 10:00 AM EDT Office Visit Rheumatology, [address] [address] Rafael Hernandez PA-C [address] [employer] [facility], [place] [address] 02/06/2025 1:30 PM EDT Office Visit Cardiology, [place] [address] [place] [address] Cherry Warner PA-C [address] [place] [address] Scheduled Procedures Name Priority Associated Diagnoses Date/Ti me COLONOSCOPY FLEXIBLE PROXIMA L DIAGNOSTIC Recall Diverticulosis of sigmoid colon Scheduled Referrals Name Type Priority Associated Diagnoses Orde r Schedule HOME HEALTH REFERRAL OP Referral Within 10 days (routine) Pressure injury of left buttock, stage 1 Squamous cell carcinoma of neck Ambulatory dysfunction Ordered: 08/31/2024 HOME HEALTH REFERRAL OP Referral Within 10 days (routine) Pressure injury of left buttock, stage 1 Squamous cell carcinoma of neck Ambulatory dysfunction Ordered: 09/07/2024 Health Maintenance Due Date Last Done Comments [...] this encounter Medical Devices Implanted Type Area It Help Desk Manager Device Identifier Shelf Expiration Date Model / Serial / Lot Mesh Perfix Plug Lg [id number] - [id number] Implanted:Qty : 1 on 02/07/2019 by Jonathan Correia DO at OR [facility] Right: Groin CR BARD : DAVOL 09/04/2023 [id number] / / [id number] Cytal Wndmtx 1lyr 52f70ab(150 Units) - [id number] - [id number] Implanted:Qty : 1 on 08/10/2024 by Lexie Aldridge MD at OR [facility] Left: Leg Upper [employer] [id number] 10/07/2025 [id number] / [id number] / [id number] Cytal Wndmtx 1lyr 7x10cm (70 Units) - [id number] - [id number] Implanted:Qty : 1 on 08/10/2024 by Lexie Aldridge MD at OR [place] Left: Leg Upper [employer] [id number] 01/05/2026 [id number] / [id number] / [id number] documented as of this encounter Visit Diagnoses Diagnosis Pressure injury of left buttock, stage 1- Primary 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, face, and neck Ambulatory dysfunction documented in this encounter Advance Directives Documents on File Type Date Recorded 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
--- OUTSIDE RECORDS SUMMARY | 2024-09-30 18:05 | External Medical Summary | Summary of Care ---
Author Name Unknown Organization [facility] Address [address] [place] [address] Phone [phone] Care Team Providers Care Patient Access Coordinator Name Role Phone Fuentes Ashton MD Primary Care Provider [phone] Reason for Visit * Reason Onset Date Comments Appointment Canceled 09/15/2024 Encounter Details Date Type Department Care Team (Late st Contact Info) Description 09/15/2024 Telephone Otolaryngology/Head & Neck/Facial Plastic Surgery [address], [place] [id number] Lexie Aldridge MD [address], [place] [phone] Appointment Canceled Allergies Active Allergy Reactions Criticality Noted Date [...] Release (PriLOSEC)Indicat ions:Gastroesopha geal reflux disease without esophagitis,retirement (current) use 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 Take by [...] Breath or Wheezing. 360 mL 11 07/06/20 Active Allopurinol 100 MG Oral Tablet (Zyloprim) Take 2 Tablets by mouth in the morning. 180 Tablet 4 4 10:01 AM EDT 07/17/20 Active Econazole Nitrate 1 % External Cream [...] the morning. 30 Tablet 08/30/20 24 Active Atorvastatin Calcium 20 MG Oral Tablet (Lipitor)Indicati ons:Dyslipidemia, goal LDL below 70 Take 1 Tablet by mouth at bedtime. 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 Steroid-induced diabetes [...] discharge follow-up 09/20/2023 03/03/2024 Scrotal irritation 09/12/2023 3 Bilateral cellulitis of lower leg 09/12/2023 03/03/2024 Acute on chronic anemia 09/11/202302/07 Cellulitis 09/09/2023 03/03/2024 Encephalopathy acute 09/09/2023 023 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 08/03/2023 08/03/2023 Atherosclerosis of [place] co ronary artery without angina pectoris 02/01/2023 [...] Cachexia 08/30/2019 05/31/2020 Hypertensive heart disease w [facility] heart failure and stage 5 chronic kidney [...] PL and AMP Hypertensive heart disease w [facility] heart failure and stage 3 chronic kidney [...] mRNA, LNP-s, No Pre serve, 2-Dose Series (Urban Interactions) 08/15/2021,01/31/2021,01/03/2021 COVID-19, LNP-s, No Preserve , Ruslan-sucrose, Ages 12+ (Urban Interactions) 03/19/2022 COVID-19, MRNA-LNP, PF, 30 M CG/0.3 mL, 12 YRS AND ABOVE, IM ([facility]) 10/25/2023 Covid-19, Mrna, Lnp-s, Pf, B ivalent, 30 Mcg, IM, 12 yrs and above (Urban Interactions) 2022 Pneumococcal Conjugate Vacc, 13 Valent (Prevnar) 01/21/2016 Pneumococcal Conjugate Vacci ne, 20-valent ([id number]) 07/19/2023 Pneumococcal Polysaccharide PPV23 (Pneumovax) 01/13/2011 RSV [...] 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 Appointment for today 09/15 has been cancelled and is rescheduled for 09/19 at 9:00 am documented in this encounter Plan of Treatment Upcoming Encounters Date Type Department Care Team (Late st Contact Info) Description 09/15/2024 3:45 PM EST Office Visit Dental Medicine, [place] [address] [place] [address] Russel Caceres, JESSICA [address] [place] [address] 09/19/2024 9:00 AM EST Office Visit Otolaryngology/Head & Neck/Facial Plastic Surgery [address] [place] [address] Lexie Aldridge MD [address] [place] [address] 09/19/2024 1:15 PM EST Treatment Radiation Oncology, [address] [address] 09/20/2024 1:15 PM EST Treatment Radiation Oncology, [address] [address] 09/21/2024 1:15 PM EST Treatment Radiation Oncology, [address] [address] 09/22/2024 1:15 PM EST Treatment Radiation Oncology, [address] [address] 09/25/2024 1:15 PM EST Treatment Radiation Oncology, [address] [address] 09/26/2024 1:15 PM EST Treatment Radiation Oncology, [address] [address] 09/27/2024 1:15 PM EST Treatment Radiation Oncology, [address] [place] [address] 09/28/2024 1:15 PM EST Treatment Radiation Oncology, [address] [place] [address] 09/29/2024 1:15 PM EST Treatment Radiation Oncology, [address] [place] [address] 10/02/2024 1:15 PM EST Treatment Radiation Oncology, [address] [place] [address] 10/03/2024 1:15 PM EST Treatment Radiation Oncology, [address] [place] [address] 10/04/2024 1:15 PM EST Treatment Radiation Oncology, [address] [place] [address] 10/06/2024 1:15 PM EST Treatment Radiation Oncology, [address] [place] [address] 10/09/2024 1:15 PM EST Treatment Radiation Oncology, [address] [place] [address] 10/09/2024 2:20 PM EST Office Visit [facility] [address] [place] [phone] David Antunez MD [address] [place] [address] 10/10/2024 1:15 PM EST Treatment Radiation Oncology, [address] [place] [address] 10/11/2024 1:15 PM EST Treatment Radiation Oncology, [address] [address] 10/12/2024 1:15 PM EST Treatment Radiation Oncology, [address] [place] [address] 10/13/2024 1:15 PM EST Treatment Radiation Oncology, [address] [place] [address] 10/16/2024 1:15 PM EST Treatment Radiation Oncology, [address] [place] [address] 10/17/2024 1:15 PM EST Treatment Radiation Oncology, [address] [place] [address] 10/18/2024 1:15 PM EST Treatment Radiation Oncology, [address] [place] [address] 10/19/2024 1:15 PM EST Treatment Radiation Oncology, [address] [place] [address] 10/20/2024 1:15 PM EST Treatment Radiation Oncology, [address] [place] [address] 10/23/2024 1:15 PM EST Treatment Radiation Oncology, [address] [place] [address] 10/24/2024 1:15 PM EST Treatment Radiation Oncology, [address] [place] [address] 10/25/2024 1:15 PM EST Treatment Radiation Oncology, [address] [place] [address] 2024 1:15 PM EST Treatment Radiation Oncology, [address] [place] [address] 10/27/2024 1:15 PM EST Treatment Radiation Oncology, [address] [place] [address] 10/30/2024 1:15 PM EST Treatment Radiation Oncology, [facility] [address] [facility] [place] [address] 10/31/2024 1:15 PM EST Treatment Radiation Oncology, [facility] [address] [facility] [place] [address] 11/14/2024 1:15 PM EST Office Visit [facility] [address] [place] [address] Supriya Fernandes MD 200 [facility] [place] [address] 12/21/2024 1:30 PM EST Office Visit Dermatology, Melissa [place] [address] [facility] [address] [place] [address] Malaika Guzman PA-C 27 [facility] [place] [address] 12/22/2024 12:00 PM EST Office Visit Nephrology, [facility] [address] [place] [address] Keisha Gunn MD [address] [place] [address] 01/22/2025 1:30 PM EDT PulmDiagnostic Pulmonary Function Lab [facility] [address] [address] [address], [address] [facility] [place] [address] 01/22/2025 2:00 PM EDT Office Visit Pulmonary Medicine [facility] [address] [facility] [place] [phone] Dominguez Aguilar MD [address] [place] [address] 02/05/2025 10:00 AM EDT Office Visit Rheumatology, [facility] [address] [facility] [place] [address] Rafael Hernandez PA-C [address] [facility] [place], [place] [address] 02/06/2025 1:30 PM EDT Office Visit Cardiology, [address] [place] [address] Cherry Warner PA-C 400 [facility] [place] [address] Scheduled Procedures Name Priority Associated Diagnoses Date/Ti [...] 05/18/2023, Additional history exists TSH 01/30/2025 01/31/2024, 2 03/2024, 09/02/2022, Additional history exists GFR 03/02/2025 09/01/2024, [...] this encounter Medical Devices Implanted Type Area Galley Stripper Device Identifier Shelf Expiration Date Model / Serial / Lot Mesh Perfix Plug Lg [id number] - [id number] Implanted:Qty : 1 on 02/07/2019 by Jonathan Correia DO at OR [facility] Right: Groin CR BARD : DAVOL 09/04/2023 [id number] / / [id number] Cytal Wndmtx 1lyr 49n82up(150 Units) - [id number] - [id number] Implanted:Qty : 1 on 08/10/2024 by Lexie Aldridge MD at OR [facility] Left: Leg Upper [employer] [id number] 10/07/2025 [id number] / [id number] / [id number] Cytal Wndmtx 1lyr 7x10cm (70 Units) - [id number] - [id number] Implanted:Qty : 1 on 08/10/2024 by Lexie Aldridge MD at OR [facility] Left: Leg Upper [employer] [id number] 01/05/2026 [id number] / [id number] / [id number] documented as of this encounter Advance Directives Documents on File Type Date 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
--- OUTSIDE RECORDS SUMMARY | 2024-09-30 18:05 | External Medical Summary | Summary of Care ---
Author Name Unknown Organization [facility] Address [address] [place] [address] Phone [phone] Care Team Providers Care Cognos Analyst Name Role Phone Fuentes Ashton MD Primary Care Provider [phone] [phone] Reason for Visit * Reason Comments Treatment Infed Encounter Details Date Type Department Care Team (Latest Contact Info) Description 09/04/2024 11:00 AM EDT Hem/Onc Treatment Hematology/Oncology Treatment, [address] [address] [facility], Chair5 Hem Onc [address] [place] [id number] Iron deficiency anemia, unspecified iron deficiency anemia type* Allergies Active Allergy Reactions Criticality Noted Date [...] Release (PriLOSEC)Indicati ons:Gastroesophage al reflux disease without esophagitis,half-way (current) use 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 Take by [...] Inhalation Aerosol Powder Breath ActivatedIndicatio ns:COPD, moderate (HCC) Inhale 2 Puffs by mouth every 4 hours as needed for Shortness of Breath. 1 Each 11 4 Active Additional Information Patient not taking.Reported on 08/25/2024 Albuterol Sulfate (2.5 MG/3ML) 0.083% Inhalation Nebulization Solution (Proventil)Indicat ions:COPD, group C, by GOLD 2017 classification (HCC) [...] buttocks as needed. 57 g 4 Active Folic Acid 1 MG Oral TabletIndications: SCC (squamous cell carcinoma) Take 1 Tablet by mouth in the morning. 30 Tablet 4 Active Vitamin B-12 1000 MCG Oral Tablet (Cyanocobalamin)In dications:SCC (squamous cell carcinoma) Take 1 Tablet by mouth in the morning. 30 Tablet 4 Active PredniSONE (DELTASONE) 20 MG TabletIndications: Contact dermatitis Take 2 Tabs by mouth daily for 5 days. 10 Tab 0 5 09/05/20 Discontinu ed(End of Procedure) PredniSONE (DELTASONE) 20 MG TabletIndications: Dysphagia, unspecified type,Acute pharyngitis, unspecified etiology,Ptosis of left eyelid Take 2 Tabs by mouth daily for 7 days. 14 Tab 8 09/05/20 Discontinu ed(End of Procedure) predniSONE 20 MG Oral Tablet (Deltasone)Indicat ions:COPD with acute exacerbation (HCC) Take by mouth 2 Tablets in the morning for 5 days. 10 Tablet 2 10/29/20 24 Discontinu ed(End of Procedure) Atorvastatin Calcium 20 MG Oral Tablet (Lipitor)Indicatio ns:Dyslipidemia, goal LDL below 70 Take 1 Tablet by mouth at bedtime. 90 Tablet 3 3 09/02/20 Discontinu ed(Refill) Doxycycline Monohydrate 100 MG Oral Capsule Take 1 Capsule by mouth in the morning and 1 Capsule before bedtime. Do all this for 7 days. 14 Capsule 4 09/05/20 Discontinu ed(End of Procedure) Doxycycline Monohydrate 100 MG Oral CapsuleIndications :Squamous [...] renal artery 02/01/2023 Chronic intestinal vascular insufficiency 03/27/ 2023 Hypertensive heart disease w ith heart failure and stage 4 chronic kidney disease 02/02/2022 Hypogonadism in male 12/01/2021 Acute dermatitis 05/08/2021 Telangiectasias 03/03/2021 COPD, moderate 01/06/2021 Overview: Per COPD GOLD Classification Gynecomastia 01/06/2021 Overview: Jul 24, 2021 Entered By: DONNA CAREY MD Comment: Ultrasound L breast [facility] 01/06/2021 Atherosclerosis of abdominal aorta 06/21/2020 Overview: CT Abd/pelvis from 2018 Atherosclerotic heart diseas e of [place] coronary artery without angina pectoris 05/31/2020 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) 0 03/09/2018 Overview: 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 10/25/2023 Covid-19, Mrna, Lnp-s, Pf, B ivalent, 30 Mcg, IM, 12 yrs and above ([place]) 2022 Pneumococcal Conjugate Vacc, 13 Valent (Prevnar) 01/21/2016 Pneumococcal Conjugate Vacci ne, 20-valent ([id number]) 07/19/2023 Pneumococcal Polysaccharide PPV23 (Pneumovax) 01/13/2011 RSV Vac., Bivalent, Perfusio n F, Pf,0.5 Ml (Abrysvo) 09/28/2023 Season Influenza, Quad, PF, Adjuvanted, 65+ Yrs, IM (FLUAD) 08/26/2020 Seasonal Influenza Vac., MDV , IM, 0.5 mL (Fluzone) 07/11/2015,10/18/2014 Seasonal Influenza, PF, 6 M & above, [...] Sign Reading Time Taken Comments Blood Pressure 128/71 09/04/2024 12:47 PM EDT Pulse 57 09/04/2024 12:47 PM EDT Temperature 36.4 C (97.5 F) 09/04/2024 12:47 PM E DT Respiratory Rate 20 09/04/2024 12:47 PM EDT Oxygen Saturation - - Inhaled Oxygen Concentration - - Weight - - Height - - Body Mass Index - - documented in this encounter Functional Status Functional Status Response [...] No 08/11/2024 documented as of this encounter Nursing Notes * Leda Ferguson RN - 09/04/2024 1:04 PM EDT Patient left IVC by ambulating. Accompanied by Spouse. Voiced no complaints. Leda Ferguson RN 09/04/2024 1:04 PM * Mallika Witt RN - 09/04/2024 11:07 AM EDT Patient in chair 6 for his Infed infusion today. Patient instructed on use of heat and massage functions where applicable. Patient shown how to operate the heat function of the chair and to alert nursing staff if the chair feels too warm. Patient instructed on the risk of potential sheikh while using the heat function. [facility] Nursing Care Plan ID is not set. 09/04/2024 Safety and Risk for Injury Patient will remain free from injury. Assess patient's risk for falls per policy. Ensure appropriate safety devices are available. Implement fall prevention plan of care per policy. Include patient and caregiver in decisions related to safety. Perform safety rounds per policy. Provide and maintain safe environment. Use appropriate transfer methods. Goals: Patient will be free of injury while in clinic Possible barriers to meeting goals: iv pole, weakness, ambulates with cane Stability of the patient: Moderately stable - low risk of patient condition declining or worsening Summary regarding today's goals: Met: Patient was free of injury while in clinic. Mallika Witt RN documented in this encounter Plan of Treatment Upcoming Encounters Date Type Department Care Team (Late st Contact Info) Description 09/15/2024 2:30 PM EST Office Visit Otolaryngology/Head & Neck/Facial Plastic Surgery [address] [place] [address] Lexie Aldridge MD [address] [place] [address] 09/15/2024 3:45 PM EST Office Visit Dental Medicine, [place] [address] [place] [address] Russel Caceres, DMD [address] [place] [address] 09/19/2024 1:15 PM EST Treatment Radiation Oncology, [address] [place] [address] 09/20/2024 1:15 PM EST Treatment Radiation Oncology, [address] [place] [address] 09/21/2024 1:15 PM EST Treatment Radiation Oncology, [address] [place] [address] 09/22/2024 1:15 PM EST Treatment Radiation Oncology, [address] [place] [address] 09/25/2024 1:15 PM EST Treatment Radiation Oncology, [address] [place] [address] 09/26/2024 1:15 PM EST Treatment Radiation Oncology, [address] [place] [address] 09/27/2024 1:15 PM EST Treatment Radiation Oncology, [address] [place] [address] 09/28/2024 1:15 PM EST Treatment Radiation Oncology, [address] [place] [address] 09/29/2024 1:15 PM EST Treatment Radiation Oncology, [address] [place] [address] 10/02/2024 1:15 PM EST Treatment Radiation Oncology, [address] [place] [address] 10/03/2024 1:15 PM EST Treatment Radiation Oncology, [address] [place] [address] 10/04/2024 1:15 PM EST Treatment Radiation Oncology, [address] [place] [address] 10/06/2024 1:15 PM EST Treatment Radiation Oncology, [address] [address] 10/09/2024 1:15 PM EST Treatment Radiation Oncology, [address] [address] 10/09/2024 2:20 PM EST Office Visit [facility] [address] [place] [address] David Antunez MD [address] [place] [address] 10/10/2024 1:15 PM EST Treatment Radiation Oncology, [address] [address] 10/11/2024 1:15 PM EST Treatment Radiation Oncology, [address] [address] 10/12/2024 1:15 PM EST Treatment Radiation Oncology, [address] [place] [address] 10/13/2024 1:15 PM EST Treatment Radiation Oncology, [address] [place] [address] 10/16/2024 1:15 PM EST Treatment Radiation Oncology, [address] [place] [address] 10/17/2024 1:15 PM EST Treatment Radiation Oncology, [address] [address] 10/18/2024 1:15 PM EST Treatment Radiation Oncology, [address] [address] 10/19/2024 1:15 PM EST Treatment Radiation Oncology, [address] [address] 10/20/2024 1:15 PM EST Treatment Radiation Oncology, [address] [address] 10/23/2024 1:15 PM EST Treatment Radiation Oncology, [address] [place] [address] 10/24/2024 1:15 PM EST Treatment Radiation Oncology, [address] [place] [address] 10/25/2024 1:15 PM EST Treatment Radiation Oncology, [address] [address] 2024 1:15 PM EST Treatment Radiation Oncology, [address] [place] [address] 10/27/2024 1:15 PM EST Treatment Radiation Oncology, [address] [address] 10/30/2024 1:15 PM EST Treatment Radiation Oncology, [address] [address] 10/31/2024 1:15 PM EST Treatment Radiation Oncology, [address] [address] 11/14/2024 1:15 PM EST Office Visit [facility] [address] Supriya Fernandes MD 200 [place] [address] 12/21/2024 1:30 PM EST Office Visit Dermatology, Ahmet Rowell [address] [place] [address] Malaika Guzman PA-C [address] [address] 12/22/2024 12:00 PM EST Office Visit Nephrology, [address] [address] Keisha Gunn MD [address] [place] [address] 01/22/2025 1:30 PM EDT PulmDiagnostic Pulmonary Function Lab [facility] [address] [facility] [place] [address] [address], [address] [place] [address] 01/22/2025 2:00 PM EDT Office Visit Pulmonary Medicine [facility] [address] [facility] [place] [phone] Dominguez Aguilar MD [address] [place] [facility] [place] [address] 02/05/2025 10:00 AM EDT Office Visit Rheumatology, [address] [address] Rafael Hernandez, PAReddy [address] [facility] [place] [address] 02/06/2025 1:30 PM EDT Office Visit Cardiology, [address] [address] Cherry Warner PA-C [address] [place], [place] [address] [address] Scheduled Procedures Name Priority Associated Diagnoses Date/Ti [...] this encounter Medical Devices Implanted Type Area Crown Attacher Device Identifier Shelf Expiration Date Model / Serial / Lot Mesh Perfix Plug Lg [id number] - [id number] Implanted:Qty : 1 on 02/07/2019 by Jonathan Correia DO at OR [facility] Right: Groin CR BARD : DAVOL 09/04/2023 [id number] / / [id number] Cytal Wndmtx 1lyr 60c00ob(150 Units) - [id number] - [id number] Implanted:Qty : 1 on 08/10/2024 by Lexie Aldridge MD at [place] [facility] Left: Leg Upper [employer] [id number] 10/07/2025 [id number] / [id number] / [id number] Cytal Wndmtx 1lyr 7x10cm (70 Units) - [id number] - [id number] Implanted:Qty : 1 on 08/10/2024 by Lexie Aldridge MD at OR [facility] Left: Leg Upper [employer] [id number] 01/05/2026 [id number] / [id number] / [id number] documented as of this encounter Visit Diagnoses Diagnosis Iron deficiency anemia, unspecified iron deficiency anemia type- Primary documented in this encounter Administered Medications Inactive Administered Medications - up to 3 most recent administrations Medication Order MAR Action Action Date Dose Rate Site Iron Dextran (Infed) 975 mg in NSS 250 mL INFUSION 975 mg, IV Piggyback, ONCE, 1 dose, On 09/04/24 at 1215, Administer over 1 Hours, - Administer iron dextran infusion bag over 1 hour - Monitor for infusion reactions with vitals at 30 minutes and 60 minutes after starting the infusion. - If patient develops sign/symptoms of reaction or vital signs outside normal limits: 1) STOP infusion 2) CONTACT physician Start Infusion 09/04/2024 11:43 AM EDT 975 mg 274.5 mL/hr Iron Dextran (Infed) IV Push TEST DOSE 25 mg IV Push, Administer over 0.5 Minutes, -Educate patient on signs/symptoms of infusion reaction -Administer 25 mg test dose of iron dextran before infusion bag -Observe patient for signs/symptoms of reaction with vital signs before test dose, then at 15 minutes after administering the test dose -If patient tolerates test dose with no reaction, proceed with iron dextran infusion -HOLD infusion and contact physician immediately if patient reacts to test dose, ONCE, 1 dose, On Wed09/04/24 at 1200 Given 09/04/2024 11:25 AM EDT 25 mg NSS infusion Intravenous, at 50 mL/hr, PRN, Starting on Wed09/04/24 at 1200, Until Wed09/04/24 at 1705, Maintenance line Start Infusion 09/04/2024 11:06 AM EDT 50 mL/hr documented in this encounter Advance Directives Documents on File Type Date 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
--- OUTSIDE RECORDS SUMMARY | 2024-09-30 18:05 | External Medical Summary | Summary of Care ---
Author Name Unknown Organization [facility] Address [address] [place] [address] Phone [phone] Care Team Providers Care Spreader Operator Automatic Name Role Phone Fuentes Ashton MD Primary Care Provider [phone] [phone] Reason for Referral * Precert (Within 10 days (routine)) - Authorized Specialty Diagnoses / Procedures Referred By Contac t Referred To Contact Radiology Diagnoses Low back pain, unspecified Procedures CT L SPINE WO CONTRAST Dari Villegas CRNP [address] [place] [address] Referral ID Status Reason Start Date Expiration Date V isits Requested Visits Authorized [id number] Authorized Precert 09/14/2024 11/05/2024 3 3 Encounter Details Date Type Department Care Team (Late st Contact Info) Description 09/14/2024 Orders Only Access Center, [address] *DO NOT REMOVE THIS DEPARTMENT* [place] SANTANA [address] Requisition, External Radiology [address] [place] [address] Low back pain, unspecified* Allergies Active Allergy Reactions Criticality Noted Date [...] Delayed Release (PriLOSEC)Indicatio ns:Gastroesophageal reflux disease without 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 Bilateral pneumonia 08/08/2019 09/19/20 Overview: Acute, resolved? 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 01/06/2021 Aspergillosis 07/17/2019 01/08/2021 Overview: history of Aspergillosis on the note on 3.[address] and AMP Hypertensive heart disease w [facility] heart failure and stage 3 chronic kidney [...] mRNA, LNP-s, No Pre serve, 2-Dose Series ([employer]) 08/15/2021,01/31/2021,01/03/2021 COVID-19, LNP-s, No Preserve , Ruslan-sucrose, Ages 12+ ([employer]) 03/19/2022 COVID-19, MRNA-LNP, PF, 30 M CG/0.3 mL, 12 YRS AND ABOVE, IM (PFIZER-Comirnat) 10/25/2023 Covid-19, Mrna, Lnp-s, Pf, B ivalent, 30 Mcg, IM, 12 yrs and above (Pfizer) 2022 Pneumococcal Conjugate Vacc, 13 Valent (Prevnar) 01/21/2016 Pneumococcal Conjugate Vacci ne, 20-valent (Legfoui90) 07/19/2023 Pneumococcal Polysaccharide PPV23 (Pneumovax) 01/13/2011 RSV [...] No 08/11/2024 documented as of this encounter Plan of Treatment Upcoming Encounters Date Type Department Care Team (Late st Contact Info) Description 09/15/2024 2:30 PM EST Office Visit Otolaryngology/Head & Neck/Facial Plastic Surgery [address] [place] [address] Lexie Aldridge MD [address] [place] [address] 09/15/2024 3:45 PM EST Office Visit Dental Medicine, [place] [address] [place] [address] Russel Caceres, JESSICA [address] [place] [address] 09/19/2024 1:15 PM EST Treatment Radiation Oncology, [address] [address] 09/20/2024 1:15 PM EST Treatment Radiation Oncology, [address] [address] 09/21/2024 1:15 PM EST Treatment Radiation Oncology, [address] [address] 09/22/2024 1:15 PM EST Treatment Radiation Oncology, [address] [place] [address] 09/25/2024 1:15 PM EST Treatment Radiation Oncology, [address] [place] [address] 09/26/2024 1:15 PM EST Treatment Radiation Oncology, [address] [place] [address] 09/27/2024 1:15 PM EST Treatment Radiation Oncology, [address] [place] [address] 09/28/2024 1:15 PM EST Treatment Radiation Oncology, [address] [address] 09/29/2024 1:15 PM EST Treatment Radiation Oncology, [address] [address] 10/02/2024 1:15 PM EST Treatment Radiation Oncology, [address] [place] [address] 10/03/2024 1:15 PM EST Treatment Radiation Oncology, [address] [place] [address] 10/04/2024 1:15 PM EST Treatment Radiation Oncology, [address] [address] 10/06/2024 1:15 PM EST Treatment Radiation Oncology, [address] [address] 10/09/2024 1:15 PM EST Treatment Radiation Oncology, [address] [place] [address] 10/09/2024 2:20 PM EST Office Visit [address] [phone] David Antunez MD [address] [place] [address] 10/10/2024 1:15 PM EST Treatment Radiation Oncology, [address] [place] [address] 10/11/2024 1:15 PM EST Treatment Radiation Oncology, [address] [place] [address] 10/12/2024 1:15 PM EST Treatment Radiation Oncology, [address] [place] [address] 10/13/2024 1:15 PM EST Treatment Radiation Oncology, [address] [place] [address] 10/16/2024 1:15 PM EST Treatment Radiation Oncology, [address] [place] [address] 10/17/2024 1:15 PM EST Treatment Radiation Oncology, [address] [place] [address] 10/18/2024 1:15 PM EST Treatment Radiation Oncology, [address] [place] [address] 10/19/2024 1:15 PM EST Treatment Radiation Oncology, [address] [place] [address] 10/20/2024 1:15 PM EST Treatment Radiation Oncology, [address] [place] [address] 10/23/2024 1:15 PM EST Treatment Radiation Oncology, [address] [place] [address] 10/24/2024 1:15 PM EST Treatment Radiation Oncology, [address] [place] [address] 10/25/2024 1:15 PM EST Treatment Radiation Oncology, [facility] [address] [place] [place] [address] 2024 1:15 PM EST Treatment Radiation Oncology, [facility] [address] [facility] [place] [address] 10/27/2024 1:15 PM EST Treatment Radiation Oncology, [facility] [address] [facility] [place] [address] 10/30/2024 1:15 PM EST Treatment Radiation Oncology, [facility] [address] [facility] [place] [address] 10/31/2024 1:15 PM EST Treatment Radiation Oncology, [facility] [address] [facility] [place] [address] 11/14/2024 1:15 PM EST Office Visit [facility] Surgery [facility] [address] [place] [address] Supriya Fernandes MD [address] [place] [address] 12/21/2024 1:30 PM EST Office Visit Dermatology, [facility] [address] [facility] [address] [place] [address] Malaika Guzman PA-C [address] [place] [address] 12/22/2024 12:00 PM EST Office Visit Nephrology, [facility] 400 [facility] [address] Keisha Gunn MD [address] [place], [place] [address] [address] 01/22/2025 1:30 PM EDT PulmDiagnostic Pulmonary Function Lab [facility] [address] [place] [address] [address], [address] [place] [address] 01/22/2025 2:00 PM EDT Office Visit Pulmonary Medicine [facility] [address] [place] [phone] Dominguez Aguilar MD [address] [facility] [address] 02/05/2025 10:00 AM EDT Office Visit Rheumatology, [facility] [address] [place] [address] Rafael Hernandez PA-C [address] [facility], [place] [address] 02/06/2025 1:30 PM EDT Office Visit Cardiology, [place] [facility] [address] Cherry Warner PA-C 400 [facility] [place] [address] Scheduled Orders Name Type Priority Associated Diagnoses Orde r Schedule CT L SPINE WO CONTRAST Medical Imaging Routine Low back pain, unspecified Expected: 09/14/2024, Expires: 11/05/2024 Scheduled Procedures Name Priority Associated Diagnoses Date/Ti [...] this encounter Medical Devices Implanted Type Area Erp Analyst Device Identifier Shelf Expiration Date Model / Serial / Lot Mesh Perfix Plug Lg [id number] - [id number] Implanted:Qty : 1 on 02/07/2019 by Jonathan Correia DO at OR [facility] Right: Groin CR BARD : DAVOL 09/04/2023 [id number] / / [id number] Cytal Wndmtx 1lyr [id number](150 Units) - [id number] - [id number] Implanted:Qty : 1 on 08/10/2024 by Lexie Aldridge MD at OR [facility] [place] [place] Left: Leg Upper [employer] [id number] 10/07/2025 [id number] / [id number] / [id number] Cytal Wndmtx 1lyr 7x10cm (70 Units) - [id number] - [id number] Implanted:Qty : 1 on 08/10/2024 by Lexie Aldridge MD at OR [facility] [place] [place] Left: Leg Upper [employer] [id number] 01/05/2026 [id number] / [id number] / [id number] documented as of this encounter Visit Diagnoses Diagnosis Low back pain, unspecified- Primary documented in this encounter Advance Directives Documents on File Type Date Recorded 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
--- OUTSIDE RECORDS SUMMARY | 2024-09-30 18:05 | External Medical Summary | Summary of Care ---
Author Name Unknown Organization [facility] Address [address] [place] [address] Phone [phone] Care Team Providers Care Communication Instructor Name Role Phone Fuentes Ashton MD Primary Care Provider [phone] Reason for Visit * Reason Comments Treatment Infed Encounter Details Date Type Department Care Team (Latest Contact Info) Description 09/04/2024 11:00 AM EDT Hem/Onc Treatment Hematology/Oncology Treatment, [address] [address] [facility], Chair5 Hem Onc [address] [place] [address] Iron deficiency anemia, unspecified iron deficiency anemia [...] Release (PriLOSEC)Indicati ons:Gastroesophage al reflux disease without esophagitis,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 Take by [...] from 2018 Atherosclerotic heart diseas e of [place] coronary artery without angina pectoris 05/31/2020 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) 0 03/09/2018 Overview: 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 [...] chronic kidney disease 08/03/2023 08/03/2023 Atherosclerosis of [place] co ronary artery without angina pectoris 02/01/2023 [...] mRNA, LNP-s, No Pre serve, 2-Dose Series ([employer]) 08/15/2021,01/31/2021,01/03/2021 COVID-19, LNP-s, No Preserve , Ruslan-sucrose, Ages 12+ ([employer]) 03/19/2022 COVID-19, MRNA-LNP, PF, 30 M CG/0.3 mL, 12 YRS AND ABOVE, IM ([facility]) 10/25/2023 Covid-19, Mrna, Lnp-s, Pf, B ivalent, 30 Mcg, IM, 12 yrs and above ([employer]) 2022 Pneumococcal Conjugate Vacc, 13 Valent (Prevnar) 01/21/2016 Pneumococcal Conjugate Vacci ne, 20-valent (Fndmraw95) 07/19/2023 Pneumococcal Polysaccharide PPV23 (Pneumovax) 01/13/2011 RSV [...] potential sheikh while using the heat function. [facility] Nursing Care Plan ID is not [...] Otolaryngology/Head & Neck/Facial Plastic Surgery [address] [place] [address] Lexie Aldridge MD [address] [place] [address] 09/15/2024 3:45 PM EST Office Visit Dental Medicine, [place] [address] [place] [address] Russel Caceres, DMD [address] [place] [address] 09/19/2024 1:15 PM EST Treatment Radiation Oncology, [address] [place] [address] 09/20/2024 1:15 PM EST Treatment Radiation Oncology, [address] [place] [address] 09/21/2024 1:15 PM EST Treatment Radiation Oncology, [address] [place] [address] 09/22/2024 1:15 PM EST Treatment Radiation Oncology, [address] [place] [address] 09/25/2024 1:15 PM EST Treatment Radiation Oncology, [address] [place] [address] 09/26/2024 1:15 PM EST Treatment Radiation Oncology, [address] [place] [address] 09/27/2024 1:15 PM EST Treatment Radiation Oncology, [address] [place] [address] 09/28/2024 1:15 PM EST Treatment Radiation Oncology, [address] [place] [address] 09/29/2024 1:15 PM EST Treatment Radiation Oncology, [address] [place] [address] 10/02/2024 1:15 PM EST Treatment Radiation Oncology, [address] [place] [address] 10/03/2024 1:15 PM EST Treatment Radiation Oncology, [address] [place] [address] 10/04/2024 1:15 PM EST Treatment Radiation Oncology, [address] [place] [address] 10/06/2024 1:15 PM EST Treatment Radiation Oncology, [address] [address] 10/09/2024 1:15 PM EST Treatment Radiation Oncology, [address] [address] 10/09/2024 2:20 PM EST Office Visit [facility] [address] [place] [address] David Antunez MD [address] [place] [address] 10/10/2024 1:15 PM EST Treatment Radiation Oncology, [address] [address] 10/11/2024 1:15 PM EST Treatment Radiation Oncology, [address] [address] 10/12/2024 1:15 PM EST Treatment Radiation Oncology, [address] [place] [address] 10/13/2024 1:15 PM EST Treatment Radiation Oncology, [address] [place] [address] 10/16/2024 1:15 PM EST Treatment Radiation Oncology, [address] [place] [address] 10/17/2024 1:15 PM EST Treatment Radiation Oncology, [address] [address] 10/18/2024 1:15 PM EST Treatment Radiation Oncology, [address] [address] 10/19/2024 1:15 PM EST Treatment Radiation Oncology, [address] [address] 10/20/2024 1:15 PM EST Treatment Radiation Oncology, [address] [address] 10/23/2024 1:15 PM EST Treatment Radiation Oncology, [address] [place] [address] 10/24/2024 1:15 PM EST Treatment Radiation Oncology, [address] [place] [address] 10/25/2024 1:15 PM EST Treatment Radiation Oncology, [address] [address] 2024 1:15 PM EST Treatment Radiation Oncology, [address] [place] [address] 10/27/2024 1:15 PM EST Treatment Radiation Oncology, [address] [address] 10/30/2024 1:15 PM EST Treatment Radiation Oncology, [address] [address] 10/31/2024 1:15 PM EST Treatment Radiation Oncology, [address] [address] 11/14/2024 1:15 PM EST Office Visit [facility] 200 [facility] [address] Supriya Fernandes MD 200 [place] [address] 12/21/2024 1:30 PM EST Office Visit Dermatology, [facility] [address] [place] [address] Malaika Guzman PA-C [address] [place] [address] 12/22/2024 12:00 PM EST Office Visit Nephrology, [address] [address] Keisha Gunn MD [address] [place] [address] 01/22/2025 1:30 PM EDT PulmDiagnostic Pulmonary Function Lab [facility] [address] [facility] [place]ae[place] [address] West, [address] [place] [address] 01/22/2025 2:00 PM EDT Office Visit Pulmonary Medicine [facility] [address] [facility] [place]ae[place] [phone] Dominguez Aguilar MD [address] [place] [facility] [place] [address] 02/05/2025 10:00 AM EDT Office Visit Rheumatology, [address] [address] Rafael Hernandez, PAReddy [address] [place] [address] 02/06/2025 1:30 PM EDT Office Visit Cardiology, [address] [address] Cherry Warner PA-C [address] [place], [place] [address]MARY [place] [address] Scheduled Procedures Name Priority Associated Diagnoses Date/Ti [...] encounter Medical Devices Implanted Type Area Manager Continuous Improvement Device Identifier Shelf Expiration Date Model / Serial / Lot Mesh Perfix Plug Lg [id number] - [id number] Implanted:Qty : 1 on 02/07/2019 by Jonathan Correia DO at OR [facility] Right: Groin CR BARD : DAVOL 09/04/2023 [id number] / / [id number] Cytal Wndmtx 1lyr [id number](150 Units) - [id number] - [id number] Implanted:Qty : 1 on 08/10/2024 by Lexie Aldridge MD at OR [facility] Left: Leg Upper [employer] [id number] 10/07/2025 [id number] / [id number] / [id number] Cytal Wndmtx 1lyr 7x10cm (70 Units) - [id number] - [id number] Implanted:Qty : 1 on 08/10/2024 by Lexie Aldridge MD at OR [facility] Left: Leg Upper [employer] [id number] 01/05/2026 [id number] / [id number] / [id number] documented as of this encounter Visit Diagnoses [...] Documents on File Type Date Recorded 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
--- OUTSIDE RECORDS SUMMARY | 2024-09-30 18:06 | External Medical Summary | Summary of Care ---
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 disease without 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,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 Take [...] ons:COPD, group C, by GOLD 2017 classification ([facility]) Inhale 1 Vial via nebulizer every [...] from 2018 Atherosclerotic heart diseas e of [place] coronary artery without angina pectoris 05/31/2020 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) 0 03/09/2018 Overview: 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 08/03/2023 08/03/2023 Atherosclerosis of [place] co ronary artery without angina pectoris 02/01/2023 [...] mRNA, LNP-s, No Pre serve, 2-Dose Series ([employer]) 08/15/2021,01/31/2021,01/03/2021 COVID-19, LNP-s, No Preserve , Ruslan-sucrose, Ages 12+ (Pfizer) 03/19/2022 COVID-19, MRNA-LNP, 23-24, P F, 30 MCG/0.3 mL, 12 YRS AND ABOVE, IM (PFIZER-Comirnaty) 10/25/2023 Covid-19, Mrna, Lnp-s, Pf, B ivalent, 30 Mcg, IM, 12 yrs and above (Pfizer) 2022 Pneumococcal Conjugate Vacc, 13 Valent (Prevnar) 01/21/2016 Pneumococcal Conjugate Vacci ne, 20-valent (Lvgnrrc70) 07/19/2023 Pneumococcal Polysaccharide PPV23 (Pneumovax) 01/13/2011 RSV [...] as of this encounter Progress Notes * Gabriela Boone RN - 09/07/2024 8:56 AM EDT Karen made aware that Kennedy does not need additional antioitics unless pt's wound has signs of infections. Karen stated that everything looked good. Karen advised to continue using Aquaphor ointment until follow up with Dr. Aldridge on 09/15/24. Karen also stated that no one from [facility] has contacted her about scheduling home visit yet. CM noted that in telephone encounter on 08/30/24, [facility] was requesting an order to have more specific wound care orders. Telephone encounter routed to provider to review. * Jonah Scott Community Health Mineralogy Teacher - 09/06/2024 1:44 PM EDT Telemedicine visit: No Community Health Mineralogy Teacher (MANE) documentation: CHW follow up phone call for RNCM and spoke with the patient's spouse, Karen. She reports that the patient seems to be doing well. She denies any signs of infection or concerns at the incision site. She reports that he finished up his antibiotic yesterday and she was wonderingif he is done with his antibiotic or if he will be receiving another prescription. Karen was also wondering if they should continue to use the salve on his neck and how long they are to continue to use it. Karen said the "skin tear" on the patient's buttocks has completely healed. She states it was more ofa rubbed area and not a skin tear. Karen denies any other questions or concerns and is agreeable to follow up phone call in 1 week. Bj Scott Community Health Worker Lead CARLEE Leo [phone] documented in this encounter Plan of Treatment Upcoming Encounters Date Type Department Care Team (Серг[address] st Contact Info) Description 09/15/2024 2:30 PM EST Office Visit Otolaryngology/Head & Neck/Facial Plastic Surgery [address] [place] [address] Lexie Aldridge MD [address] [place] [address] 09/15/2024 3:45 PM EST Office Visit Dental Medicine, [place] [address] [place] [address] Russel Caceres DMD [address] [place] [address] 10/09/2024 2:20 PM EST Office Visit [facility] [address] [place] [phone] David Antunez MD [address] [place], [place] [phone] 11/14/2024 1:15 PM EST Office Visit [facility] [address] [place] [address] Supriya Fernandes MD [address] [place] [address] 12/21/2024 1:30 PM EST Office Visit Dermatology, [address] [place] [address] [facility] [address] [place] [address] Malaika Guzman PA-C [address] [facility] [place] [address] 12/22/2024 12:00 PM EST Office Visit Nephrology, [address] [phone] Keisha Gunn MD [address] [place] [phone] 01/22/2025 1:30 PM EDT PulmDiagnostic Pulmonary Function Lab [facility] [address] [facility] [place] [address] West, [address] [place] [address] 01/22/2025 2:00 PM EDT Office Visit Pulmonary Medicine [facility] [address] [facility] [phone] Dominguez Aguilar MD [address] [facility] [place] [address] 02/05/2025 10:00 AM EDT Office Visit Rheumatology, [facility] 400 [place] [address] Rafael Hernandez PA-C [facility] [place] [address] 02/06/2025 1:30 PM EDT Office Visit Cardiology, [address] [address] Cherry Warner PA-C 400 [facility] [address] Scheduled Procedures Name Priority Associated Diagnoses Date/Ti [...] this encounter Medical Devices Implanted Type Area Salt Maker Device Identifier Shelf Expiration Date Model / Serial / Lot Mesh Perfix Plug Lg [id number] - [id number] Implanted:Qty : 1 on 02/07/2019 by Jonathan Correia, at OR [facility] Right: Groin CR BARD : DAVOL 09/04/2023 [id number] / / [id number] Cytal Wndmtx 1lyr [id number](150 Units) - [id number] - [id number] Implanted:Qty : 1 on 08/10/2024 by Lexie Aldridge MD at OR [facility] [place] Left: Leg Upper [employer] [id number] 10/07/2025 [id number] / [id number] / [id number] Cytal Wndmtx 1lyr 7x10cm (70 Units) - [id number] - [id number] Implanted:Qty : 1 on 08/10/2024 by Lexie Aldridge MD at OR 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
--- OUTSIDE RECORDS SUMMARY | 2024-09-30 18:06 | External Medical Summary | Summary of Care ---
Author Name Unknown Organization [facility] Address [address] [place] [address] Phone [phone] Care Team Providers Care Television Analyzer Name Role Phone Fuentes Ashton MD Primary Care Provider [phone] Encounter Details Date Type Department Care Team (Late st Contact Info) Description 09/06/2024 12:30 PM EDT Scheduled Telephone Care Coordination and Integration [address] [place] [address] Jonah Scott [facility] Health English As A Second Language Instructor [address], [place] [id number] Allergies Active Allergy Reactions Criticality Noted Date Comments Aztreonam Hives Medium 10/11/2019 Cephalosporins Rash 05/24/2017 Tolerated cefazolin during August 2024 admission Chlorhexidine Hives,Rash High 01/02/2022 Full body red rash; "skin peeled completely off" Ciprofloxacin Diarrhea Medium 01/28/2015 Iodinated Contrast Media Abdominal pain High 019 Acute kidney failure Levofloxacin Rash Low 07/28/2019 documented as of this encounter (statuses as of 09/06/2024) Medications Medication Sig Dispensed Refills Start Date [...] Delayed Release (PriLOSEC)Indicatio ns:Gastroesophageal reflux disease without esophagitis,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 Take by [...] ons:COPD, group C, by GOLD 2017 classification (FORMERLY [...] as of this encounter (statuses as of 09/06/2024) Active Problems Problem Noted Date Diagnosed Date [...] from 2018 Atherosclerotic heart diseas e of [place] coronary artery without angina pectoris 05/31/2020 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) 0 03/09/2018 Overview: MRI 02/23 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 Steroid-induced diabetes [...] as of this encounter (statuses as of 09/06/2024) Resolved Problems Problem Noted Date Diagnosed Date [...] chronic kidney disease 08/03/2023 08/03/2023 Atherosclerosis of [place] co ronary artery without angina pectoris 02/01/2023 [...] as of this encounter (statuses as of 09/06/2024) Immunizations Name Administration Dates Next Due COVID-19 mRNA, LNP-s, No Pre serve, 2-Dose Series ([employer]) 08/15/2021,01/31/2021,01/03/2021 COVID-19, LNP-s, No Preserve , Ruslan-sucrose, Ages 12+ (Pfizer) 03/19/2022 COVID-19, MRNA-LNP, 23-24, P F, 30 MCG/0.3 mL, 12 YRS AND ABOVE, IM (PFIZER-Comirnaty) 10/25/2023 Covid-19, Mrna, Lnp-s, Pf, B ivalent, 30 Mcg, IM, 12 yrs and above (Pfizer) 2022 Pneumococcal Conjugate Vacc, 13 Valent (Prevnar) 01/21/2016 Pneumococcal Conjugate Vacci ne, 20-valent (Szogilt23) 07/19/2023 Pneumococcal Polysaccharide PPV23 (Pneumovax) 01/13/2011 RSV [...] this encounter Progress Notes * Jonah Scott [facility] Health English As A Second Language Instructor - 09/06/2024 1:44 PM EDT Telemedicine visit: No [facility] English As A Second Language Instructor (MANE) documentation: CHW follow up phone call [...] phone call in 1 week. Bj Scott [facility] Health Worker Lead [facility] [place] [phone] Electronically signed by Jonah Scott [facility] English As A Second Language Instructor at 09/06/2024 1:50 PM EDT documented in this encounter Plan of Treatment Upcoming Encounters Date Type Department Care Team (Late st Contact Info) Description 09/15/2024 2:30 PM EST Office Visit Otolaryngology/Head & Neck/Facial Plastic Surgery [address] [place] [address] Lexie Aldridge MD [address] [place] [address] 09/15/2024 3:45 PM EST Office Visit Dental Medicine, [place] [address] [place] [address] Russel Caceres DMD [address] [place] [address] 10/09/2024 2:20 PM EST Office Visit [facility] [address] [place] [address] David Antunez MD [address] [place] [address] 11/14/2024 1:15 PM EST Office Visit [facility] Surgery [facility] [address] [place] [address] Supriya Fernandes MD [address] [place] [address] 12/21/2024 1:30 PM EST Office Visit Dermatology, Melissa [place] [address] [facility] [address] [place] [address] Malaika Guzman PA-C 27 [place] [address] 12/22/2024 12:00 PM EST Office Visit Nephrology, [facility] [address] [place], [place] [phone] Keisha Gunn MD [address] [place] [address] [id number] 01/22/2025 1:30 PM EDT PulmDiagnostic Pulmonary Function Lab [facility] [address] [place] [address] [address] [address], [address] [facility] [place] [address] 01/22/2025 2:00 PM EDT Office Visit Pulmonary Medicine [facility] [address] [phone] Dominguez Aguilar MD [address] [address] [address] 02/05/2025 10:00 AM EDT Office Visit Rheumatology, [facility] [address] [facility] [address] Rafael Hernandez PA-C 0[address] [facility] [place], [place] [address] 02/06/2025 1:30 PM EDT Office Visit Cardiology, [address] [place] [address] Cherry Warner PA-C 400 [facility] [place] [address] Scheduled Procedures Name Priority Associated Diagnoses Date/Ti [...] this encounter Medical Devices Implanted Type Area Daytime Caregiver Device Identifier Shelf Expiration Date Model / Serial / Lot Mesh Perfix Plug Lg [id number] - [id number] Implanted:Qty : 1 on 02/07/2019 by Jonathan Correia DO at OR [facility] Right: Groin CR BARD : DAVOL 09/04/2023 [id number] / / [id number] Cytal Wndmtx 1lyr [id number](150 Units) - [id number] - [id number] Implanted:Qty : 1 on 08/10/2024 by Lexie Aldridge MD at OR [facility] Left: Leg Upper [employer] [id number] 10/07/2025 [id number] / [id number] / [id number] Cytal Wndmtx 1lyr 7x10cm (70 Units) - [id number] - [id number] Implanted:Qty : 1 on 08/10/2024 by Lexie Aldridge MD at OR [facility] Left: Leg Upper [employer] [id number] 01/05/2026 [id number] / [id number] / [id number] documented as of this encounter Advance Directives Documents on File Type Date Recorded Patient Research Neuropsychologist Expl anation Advance Directives and Living Will [...] Cross Adult Child Emergency Contact Care Teams Television Analyzer Relationship Specialty Start Date End Date Fuentes Ashton MD [address] [place] [address] PCP - General Family Medicine 01/30/22 documented as of this encounter
--- OUTSIDE RECORDS SUMMARY | 2024-09-30 18:06 | External Medical Summary | Summary of Care ---
Author Name Unknown Organization [facility] Address [address] [place] [address] Phone [phone] Care Team Providers Care Solar Installation Manager Name Role Phone Fuentes Ashton MD Primary Care Provider [phone] Reason for Referral * Evaluate & Treat - Unlimited Visits (Within 10 days (routine)) - Pending Review Specialty Diagnoses / Procedures Referred By Ayanna rios Referred To Contact HOME CARE / Home Care Diagnoses Pressure injury of left buttock, stage 1 Squamous cell carcinoma of neck Ambulatory dysfunction Allen Medina PA-C [address] [place] [address] Referral ID Status Reason Start Date Expiration Date Visits Requested Visits Authorized [id number] Pending Review Specialty Services Required 4 [phone] Question Answer Referral Priority Within 10 days (routine) Where should this appointment be scheduled? Pablo Jones Documentation of Odkd-qb-Utyf Encounter Addendum Patient Name: Kennedy Davis I certify that this patient is under my care and that I, or a nurse practitioner or physician's assistant store manager sales working with me, had a ffln-ck-tgax encounter that meets the physician vorr-dx-oslo encounter requirements with this patient on: 08-25-24 [...] effort and are for medical reasons or adventist services or infrequently or of short duration [...] neck Ambulatory dysfunction Fuentes Ashton MD [facility] [place] [address] Referral ID Status Reason Start Date Expiration Date Visits Requested Visits Authorized [id number] Pending Review Specialty Services Required [phone] Question Answer Referral Priority Within 10 days (routine) Where should this appointment be scheduled? Pablo Comments Documentation of Hrir-xj-Jjix Encounter Addendum Patient Name: Kennedy Davis I certify that this patient is under my care and that I, or a nurse practitioner or physician's assistant store manager sales working with me, had a zdxo-ye-ruzf encounter that meets the physician zdim-ib-ozja encounter requirements with this patient on: 08/25/24 [...] effort and are for medical reasons or adventist services or infrequently or of short duration when for other reason) because. 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 Steroid-induced diabetes [...] mRNA, LNP-s, No Pre serve, 2-Dose Series ([employer]) 08/15/2021,01/31/2021,01/03/2021 COVID-19, LNP-s, No Preserve , Ruslan-sucrose, Ages 12+ (Pfizer) 03/19/2022 COVID-19, MRNA-LNP, 23-24, P F, 30 MCG/0.3 mL, 12 YRS AND ABOVE, IM (eCommHub-Comirnaty) 10/25/2023 Covid-19, Mrna, Lnp-s, Pf, B ivalent, 30 Mcg, IM, 12 yrs and above ([employer]) 2022 Pneumococcal Conjugate Vacc, 13 Valent (Prevnar) 01/21/2016 Pneumococcal Conjugate Vacci ne, 20-valent (Blztzon65) 07/19/2023 Pneumococcal Polysaccharide PPV23 (Pneumovax) 01/13/2011 RSV [...] No 08/23/2024 Does the household have a [facility] medical cent[facility] source of income? (Household - for ages [...] as of this encounter Miscellaneous Notes * Addendum Note - Allen Medina PA-C [...] Lau OSA - 08/30/2024 2:58 PM EDT [facility] calling requesting order to state in home PT /OT as well as the wound care is not considered long-term as pt was directed to use Desitin please place new order to in home PT /OTas well as something more in depth about wound * Telephone Encounter - Gabriela Boone RN - 08/30/2024 1:21 PM EDT Confirmed pt's address and insurance with [facility]. Intake nurse says they typically try make [...] Otolaryngology/Head & Neck/Facial Plastic Surgery [address] [place] [address] Lexie Aldridge MD [address] [place] [address] 09/15/2024 3:45 PM EST Office Visit Dental Medicine, [place] [address] [place] [address] Russel Caceres, JESSICA [address] [place] [address] 10/09/2024 2:20 PM EST Office Visit Family [facility] [place] [phone] David Antunez MD [place] [address] 11/14/2024 1:15 PM EST Office Visit MOHS Surgery [facility] 200 [facility], [place] [address] Supriya Fernandes MD 200 [facility], [place] [address] 12/21/2024 1:30 PM EST [facility] [address] [place] [address] [place] [phone] Malaika Guzman PA-C 27 [address] [place] [address] 12/22/2024 12:00 PM EST Office Visit Nephrology, [address] [phone] Keisha Gunn MD [address] [place] [address] 01/22/2025 1:30 PM EDT PulmDiagnostic Pulmonary Function Lab [facility] [address] [facility] [place] [address] [address], [address] [facility] [place] [address] 01/22/2025 2:00 PM EDT Office Visit Pulmonary Medicine [facility] [address] [facility] [place] [phone] Dominguez Aguilar MD [address] [facility] [address] 02/05/2025 10:00 AM EDT Office Visit Rheumatology, [address] [phone] Rafael Hernandez, PA-C 4[address] [facility] [place], [place] [address] 02/06/2025 1:30 PM EDT Office Visit Cardiology, [address] [place] [address] Cherry Warner PA-C [address] [place] [address] Scheduled Procedures Name Priority Associated Diagnoses Date/Ti [...] this encounter Medical Devices Implanted Type Area Rubber Tubing Backer Device Identifier Shelf Expiration Date Model / Serial / Lot Mesh Perfix Plug Lg [id number] - [id number] Implanted:Qty : 1 on 02/07/2019 by Jonathan Correia DO at OR [facility] Right: Groin CR BARD : DAVOL 09/04/2023 [id number] / / [id number] Cytal Wndmtx 1lyr [id number](150 Units) - [id number] - [id number] Implanted:Qty : 1 on 08/10/2024 by Lexie Aldridge MD at [place] [facility] Left: Leg Upper [employer] [id number] 10/07/2025 [id number] / [id number] / [id number] Cytal Wndmtx 1lyr 7x10cm (70 Units) - [id number] - [id number] Implanted:Qty : 1 on 08/10/2024 by Lexie Aldridge MD at [place] [facility] Left: Leg Upper [employer] [id number] 01/05/2026 [id number] / [id number] / [id number] documented as of this encounter Visit Diagnoses Diagnosis Pressure injury of left buttock, stage 1- Primary 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
--- OUTSIDE RECORDS SUMMARY | 2024-09-30 18:06 | External Medical Summary | Summary of Care ---
Author Name Unknown Organization [facility] Address [address] [place] [address] Phone [phone] Care Team Providers Care Ore Bridge Operator Name Role Phone Fuentes Ashton MD Primary Care Provider [phone] Reason for Referral * Evaluate & Treat - Unlimited Visits (Within 10 days (routine)) - Pending Review Specialty Diagnoses / Procedures Referred By Ayanna rios Referred To Contact HOME CARE / Home Care Diagnoses Pressure injury of left buttock, stage 1 Squamous cell carcinoma of neck Ambulatory dysfunction Allen Medina PA-C 21 [place] [address] Referral ID Status Reason Start Date Expiration Date Visits Requested Visits Authorized [id number] Pending Review Specialty Services Required [phone] Question Answer Referral Priority Within 10 days (routine) Where should this appointment be scheduled? Pablo Jones Documentation of Gaoo-tw-Zoxd Encounter Addendum Patient Name: Kennedy Davis I certify that this patient is under my care and that I, or a nurse practitioner or physician's anesthesiologist assistant certified working with me, had a hrfi-pk-hvwt encounter that meets the physician ejes-ob-gkhr encounter requirements with this patient on: 08-25-24 [...] effort and are for medical reasons or hinduism services or infrequently or of short duration [...] neck Ambulatory dysfunction Fuentes Ashton MD 21 [facility] [place] [address] Referral ID Status Reason Start Date Expiration Date Visits Requested Visits Authorized [id number] Pending Review Specialty Services Required [phone] Question Answer Referral Priority Within 10 days (routine) Where should this appointment be scheduled? Pablo Comments Documentation of Jawq-ul-Xvsb Encounter Addendum Patient Name: Kennedy Davis I certify that this patient is under my care and that I, or a nurse practitioner or physician's anesthesiologist assistant certified working with me, had a kglm-fi-file encounter that meets the physician djbt-hv-fvuk encounter requirements with this patient on: 08/25/24 [...] effort and are for medical reasons or hinduism services or infrequently or of short duration when for other reason) because. Physician Signature: Date of Signature: Physician Printed Name: Malaika Morales LPN Reason for Visit * Reason Onset Date Comments Advice 08/30/2024 Order Request 08/30/2024 Encounter Details Date Type Department Care Team (Late st Contact Info) Description 08/30/2024 Telephone [facility] [address] [place] [phone] Fuentes Ashton [...] Inhalation Aerosol Powder Breath ActivatedIndicatio ns:COPD, moderate ([facility]) Inhale 2 Puffs by mouth every 4 hours as needed for Shortness of Breath. 1 Each 11 4 Active Additional Information Patient not taking.Reported on 08/25/2024 Albuterol Sulfate (2.5 MG/3ML) 0.083% Inhalation Nebulization Solution (Proventil)Indicat ions:COPD, group C, by GOLD 2017 classification (FORMERLY [...] from 2018 Atherosclerotic heart diseas e of [place] coronary artery without angina pectoris 05/31/2020 Nuclear [...] chronic kidney disease 08/03/2023 08/03/2023 Atherosclerosis of [place] co ronary artery without angina pectoris 02/01/2023 [...] mRNA, LNP-s, No Pre serve, 2-Dose Series ([employer]) 08/15/2021,01/31/2021,01/03/2021 COVID-19, LNP-s, No Preserve , Ruslan-sucrose, Ages 12+ (Pfizer) 03/19/2022 COVID-19, MRNA-LNP, 23-24, P F, 30 MCG/0.3 mL, 12 YRS AND ABOVE, IM (InterEx-Comirnaty) 10/25/2023 Covid-19, Mrna, Lnp-s, Pf, B ivalent, 30 Mcg, IM, 12 yrs and above ([employer]) 2022 Pneumococcal Conjugate Vacc, 13 Valent (Prevnar) 01/21/2016 Pneumococcal Conjugate Vacci ne, 20-valent (Pxgzwhu33) 07/19/2023 Pneumococcal Polysaccharide PPV23 (Pneumovax) 01/13/2011 RSV [...] Lau OSA - 08/30/2024 2:[address] [facility] calling requesting order to state in home PT /OT as well as the wound care is not considered group home as pt was directed to use Desitin please place new order to in home PT /OTas well as something more in depth about wound * Telephone Encounter - Gabriela Boone RN - 08/30/2024 1:21 PM EDT Confirmed pt's address and insurance with [facility]. Intake nurse says they typically try [...] Otolaryngology/Head & Neck/Facial Plastic Surgery [address] [place] [address] Lexie Aldridge MD [address] [place] [address] 09/15/2024 3:45 PM EST Office Visit Dental Medicine, [place] [address] [place] [address] Russel Caceres, JESSICA [address] [place] [address] 10/09/2024 2:20 PM EST Office Visit Family [facility] [place] [phone] David Antunez MD [place] [address] 11/14/2024 1:15 PM EST Office Visit MOHS Surgery [facility] 200 [facility], [place] [address] Supriya Fernandes MD 200 [facility], [place] [address] 12/21/2024 1:30 PM EST [facility] [address] [place] [address] [place] [phone] Malaika Guzman PA-C [address] [place] [address] 12/22/2024 12:00 PM EST Office Visit Nephrology, [address] [phone] Keisha Gunn MD [address] [place] [address] 01/22/2025 1:30 PM EDT PulmDiagnostic Pulmonary Function Lab [facility] [address] [facility] [place] [address] [address], [address] [facility] [place] [address] 01/22/2025 2:00 PM EDT Office Visit Pulmonary Medicine [facility] [address] [facility] [place] [phone] Dominguez Aguilar MD [address] [facility] [address] 02/05/2025 10:00 AM EDT Office Visit Rheumatology, [address] [phone] Rafael Hernandez, PA-C 0[address] [facility] [place], [place] [address] 02/06/2025 1:30 PM EDT Office Visit Cardiology, [address] [place] [address] Cherry Warner PA-C [address] [place] [address] Scheduled Procedures Name Priority Associated Diagnoses Date/Ti [...] this encounter Medical Devices Implanted Type Area Brand Strategist Device Identifier Shelf Expiration Date Model / Serial / Lot Mesh Perfix Plug Lg [id number] - [id number] Implanted:Qty : 1 on 02/07/2019 by Jonathan Correia DO at OR [facility] Right: Groin CR BARD : DAVOL 09/04/2023 [id number] / / [id number] Cytal Wndmtx 1lyr [id number](150 Units) - [id number] - [id number] Implanted:Qty : 1 on 08/10/2024 by Lexie Aldridge MD at [place] [facility] Left: Leg Upper [employer] [id number] 10/07/2025 [id number] / [id number] / [id number] Cytal Wndmtx 1lyr 7x10cm (70 Units) - [id number] - [id number] Implanted:Qty : 1 on 08/10/2024 by Lexie Aldridge MD at OR [facility] Left: Leg Upper [employer] [id number] 01/05/2026 [id number] / [id number] / [id number] documented as of this encounter Visit Diagnoses Diagnosis Pressure injury of left buttock, stage 1- Primary 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
--- OUTSIDE RECORDS SUMMARY | 2024-09-30 18:06 | External Medical Summary | Summary of Care ---
Author Name Unknown Organization [facility] Address [address] [place] [address] Phone [phone] Care Team Providers Care Restaurant Associate Name Role Phone Fuentes Ashton MD Primary Care Provider [phone] Reason for Referral * Evaluate & Treat - Unlimited Visits (Within 10 days (routine)) - Pending Review Specialty Diagnoses / Procedures Referred By Contac t Referred To Contact HOME CARE / Home Care Diagnoses Pressure injury of left buttock, stage 1 Squamous cell carcinoma of neck Ambulatory dysfunction Fuentes Ashton MD [address] [place] [address] Referral ID Status Reason Start Date Expiration Date Visits Requested Visits Authorized [id number] Pending Review Specialty Services Required 4 [phone] Question Answer Referral Priority Within 10 days (routine) Where should this appointment be scheduled? Pablo Jones Documentation of Udda-oz-Hlrv Encounter Addendum Patient Name: Kennedy Davis I certify that this patient is under my care and that I, or a nurse practitioner or physician's floor covering printer assistant working with me, had a pfxe-xn-uvmf encounter that meets the physician zirk-aw-qrcx encounter requirements with this patient on: 08/25/24 [...] effort and are for medical reasons or baptism services or infrequently or of short duration when for other reason) because. Physician Signature: Date of Signature: Physician Printed Name: Malaika Morales LPN Reason for Visit * Reason Onset Date Comments Advice 08/30/2024 Order Request 08/30/2024 Encounter Details Date Type Department Care Team (Late st Contact Info) Description 08/30/2024 Telephone [facility] 21 [facility] [place] [phone] Fuentes Ashton MD 21 [facility] [place] [address] Advice; Order Request Allergies Active Allergy [...] Release (PriLOSEC)Indicati ons:Gastroesophage al reflux disease without esophagitis,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) [...] chronic kidney disease 08/03/2023 08/03/2023 Atherosclerosis of [place] co ronary artery without angina pectoris 02/01/2023 [...] mRNA, LNP-s, No Pre serve, 2-Dose Series ([employer]) 08/15/2021,01/31/2021,01/03/2021 COVID-19, LNP-s, No Preserve , Ruslan-sucrose, Ages 12+ ([employer]) 03/19/2022 COVID-19, MRNA-LNP, 23-24, P F, 30 MCG/0.3 mL, 12 YRS AND ABOVE, IM ([facility]) 10/25/2023 Covid-19, Mrna, Lnp-s, Pf, B ivalent, 30 Mcg, IM, 12 yrs and above ([employer]) 2022 Pneumococcal Conjugate Vacc, 13 Valent (Prevnar) 01/21/2016 Pneumococcal Conjugate Vacci ne, 20-valent ([id number]) 07/19/2023 Pneumococcal Polysaccharide PPV23 (Pneumovax) 01/13/2011 RSV [...] No 08/23/2024 Does the household have a unm cancer centerlar source of income? (Household - for ages [...] encounter Miscellaneous Notes * Addendum Note - Devan Narayanan MD [...] as the wound care is not considered FCI as pt was directed to use Desitin please place new order to in home PT /OTas well as something more in depth about wound * Telephone Encounter - Gabriela Boone RN - 08/30/2024 1:21 PM EDT Confirmed pt's address and insurance with [facility]. Intake nurse says they typically try make [...] Otolaryngology/Head & Neck/Facial Plastic Surgery [address] [place] [address] Lexie Aldridge MD [address] [place] [address] 09/15/2024 3:45 PM EST Office Visit Dental Medicine, [place] [address], [place] [phone] Russel Caceres, JESSICA [address], [place] [phone] 10/09/2024 2:20 PM EST Office Visit [facility] [address] [place] [phone] David Antunez MD [address] [place], [place] [phone] 11/14/2024 1:15 PM EST Office Visit MOHS Surgery [facility] [address] [place], [place] [phone] Supriya Fernandes MD [address] [place] [address] 12/21/2024 1:30 PM EST Office Visit Dermatology, [place] [address] [place] [phone] Malaika Guzman PA-C [address], [place] [phone] 12/22/2024 12:00 PM EST Office Visit Nephrology, [address] [phone] Keisha Gunn MD [address] [place] [address] 01/22/2025 1:30 PM EDT PulmDiagnostic Pulmonary Function Lab [facility] [address] [facility] [place] [address] [address], [address] [place] [address] 01/22/2025 2:00 PM EDT Office Visit Pulmonary Medicine [facility] [place] [address] [place] [phone] Dominguez Aguilar MD [address] [facility] [place] [address] 02/05/2025 10:00 AM EDT Office Visit Rheumatology, [facility] [address] [place] [address] Rafael Hernandez PAReddy [address] [place] [address], [place] [address] 02/06/2025 1:30 PM EDT Office [address]iology, [address] [address] Cherry Warner PA-C [address] [facility] [address] Scheduled Procedures Name Priority Associated Diagnoses Date/Ti me COLONOSCOPY FLEXIBLE PROXIMA L DIAGNOSTIC Recall Diverticulosis of sigmoid colon Scheduled Referrals Name Type Priority Associated Diagnoses Orde r Schedule HOME HEALTH REFERRAL OP Referral Within 10 days (routine) Pressure injury of left buttock, stage 1 Squamous cell carcinoma of neck Ambulatory dysfunction Ordered: 08/31/2024 Health Maintenance Due Date Last Done Comments [...] this encounter Medical Devices Implanted Type Area Head Of Physics Device Identifier Shelf Expiration Date Model / Serial / Lot Mesh Perfix Plug Lg [id number] - [id number] Implanted:Qty : 1 on 02/07/2019 by Jonathan Correia DO at OR [facility] Right: Groin CR BARD : DAVOL 09/04/2023 [id number] / / [id number] Cytal Wndmtx 1lyr 25a25pz(150 Units) - [id number] - [id number] Implanted:Qty : 1 on 08/10/2024 by Lexie Aldridge MD [place] [facility] [place]: Leg Upper [employer] [id number] 10/07/2025 [id number] / [id number] / [id number] Cytal Wndmtx 1lyr 7x10cm (70 Units) - [id number] - [id number] Implanted:Qty : 1 on 08/10/2024 by Lexie Aldridge MD [place] [facility] [place]: Leg Upper [employer] [id number] 01/05/2026 [id number] / [id number] / [id number] documented as of this encounter Visit Diagnoses Diagnosis Pressure injury of left buttock, stage 1- Primary 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
--- OUTSIDE RECORDS SUMMARY | 2024-09-30 18:06 | External Medical Summary | Summary of Care ---
Author Name Unknown Organization [facility] Address [address] [place] [address] Phone [phone] Care Team Providers Care Desk Top Publisher Name Role Phone Fuentes Ashton MD Primary Care Provider [phone] Reason for Referral * Evaluate & Treat - Unlimited Visits (Within 10 days (routine)) - Pending Review Specialty Diagnoses / Procedures Referred By Ayanna rios Referred To Contact HOME CARE / Home Care Diagnoses Pressure injury of left buttock, stage 1 Squamous cell carcinoma of neck Ambulatory dysfunction Allen Medina PA-C [address] [place] [address] Referral ID Status Reason Start Date Expiration Date Visits Requested Visits Authorized [id number] Pending Review Specialty Services Required [phone] Question Answer Referral Priority Within 10 days (routine) Where should this appointment be scheduled? Pablo Jones Documentation of Riuw-lk-Rlpl Encounter Addendum Patient Name: Kennedy Davis I certify that this patient is under my care and that I, or a nurse practitioner or physician's assistant track coach working with me, had a sqrk-zy-euna encounter that meets the physician msay-il-ioxg encounter requirements with this patient on: 08-25-24 [...] effort and are for medical reasons or amish services or infrequently or of short duration [...] neck Ambulatory dysfunction Fuentes Ashton MD 21 [facility] [address] [place] [address] Referral ID Status Reason Start Date Expiration Date Visits Requested Visits Authorized [id number] Pending Review Specialty Services Required 4 [phone] Question Answer Referral Priority Within 10 days (routine) Where should this appointment be scheduled? Pablo Comments Documentation of Brql-hv-Twqt Encounter Addendum Patient Name: Kennedy Davis I certify that this patient is under my care and that I, or a nurse practitioner or physician's assistant track coach working with me, had a lbqm-lf-sagr encounter that meets the physician mpwd-nx-jjpi encounter requirements with this patient on: 08/25/24 [...] effort and are for medical reasons or amish services or infrequently or of short duration when for other reason) because. Physician Signature: Date of Signature: Physician Printed Name: Malaika Morales LPN Reason for Visit * Reason Onset Date Comments Advice 08/30/2024 Order Request 08/30/2024 Encounter Details Date Type Department Care Team (Late st Contact Info) Description 08/30/[address] 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 [...] Aerosol Powder Breath ActivatedIndicatio ns:COPD, moderate ([facility]) Inhale 2 [...] from 2018 Atherosclerotic heart diseas e of [place] coronary artery without angina pectoris 05/31/2020 Nuclear [...] chronic kidney disease 08/03/2023 08/03/2023 Atherosclerosis of [place] co ronary artery without angina pectoris 02/01/2023 [...] mRNA, LNP-s, No Pre serve, 2-Dose Series ([employer]) 08/15/2021,01/31/2021,01/03/2021 COVID-19, LNP-s, No Preserve , Ruslan-sucrose, Ages 12+ ([employer]) 03/19/2022 COVID-19, MRNA-LNP, 23-24, P F, 30 MCG/0.3 mL, 12 YRS AND ABOVE, IM ([employer]) 10/25/2023 Covid-19, Mrna, Lnp-s, Pf, B ivalent, 30 Mcg, IM, 12 yrs and above ([employer]) 2022 Pneumococcal Conjugate Vacc, 13 Valent (Prevnar) 01/21/2016 Pneumococcal Conjugate Vacci ne, 20-valent ([id number]) 07/19/2023 Pneumococcal Polysaccharide PPV23 (Pneumovax) 01/13/2011 RSV [...] No 08/23/2024 Does the household have a [facility] source [facility] income? (Household - for [...] as the wound care is not considered half-way as pt was directed to use Desitin [...] Otolaryngology/Head & Neck/Facial Plastic Surgery [address] [place] [address] Lexie Aldridge MD [address] [place] [address] 09/15/2024 3:45 PM EST Office Visit Dental Medicine, [place] [address] [place] [address] Russel Caceres, JESSICA [address] [place] [address] 10/09/2024 2:20 PM EST Office Visit Family [facility] [place] [place] [phone] David Antunez MD [place] [address] 11/14/2024 1:15 PM EST Office Visit MOHS Surgery [facility] 200 [facility], [place] [address] Supriya Fernandes MD 200 [facility], [place] [address] 12/21/2024 1:30 PM EST [facility] [address] [place] [phone] Malaika Guzman PA-C [address] [place] [address] 12/22/2024 12:00 PM EST Office Visit Nephrology, [address] [phone] Keisha Gunn MD [address] [place] [address] 01/22/2025 1:30 PM EDT PulmDiagnostic Pulmonary Function Lab [facility] [address] [facility] [place] [address] [address], [address] [facility] [place] [address] 01/22/2025 2:00 PM EDT Office Visit Pulmonary Medicine [facility] [address] [facility] [place] [phone] Dominguez Aguilar MD [address] [facility] [address] 02/05/2025 10:00 AM EDT Office Visit Rheumatology, [address] [phone] Rafael Hernandez, PA-C [address] [facility] [place], [place] [address] 02/06/2025 1:30 PM EDT Office Visit Cardiology, [address] [place] [address] Cherry Warner PA-C [address] [place] [address] Scheduled Procedures Name Priority Associated Diagnoses Date/Ti [...] this encounter Medical Devices Implanted Type Area Pharmacy Technician Assistant Device Identifier Shelf Expiration Date Model / Serial / Lot Mesh Perfix Plug Lg [id number] - [id number] Implanted:Qty : 1 on 02/07/2019 by Jonathan Correia DO at OR [facility] Right: Groin CR BARD : DAVOL 09/04/2023 [id number] / / [id number] Cytal Wndmtx 1lyr [id number](150 Units) - [id number] - [id number] Implanted:Qty : 1 on 08/10/2024 by Lexie Aldridge MD at OR [facility] Left: Leg Upper [employer] [id number] 10/07/2025 [id number] / [id number] / [id number] Cytal Wndmtx 1lyr 7x10cm (70 Units) - [id number] - [id number] Implanted:Qty : 1 on 08/10/2024 by Lexie Aldridge MD at OR [facility] Left: Leg Upper [employer] [id number] 01/05/2026 [id number] / [id number] / [id number] documented as of this encounter Visit Diagnoses Diagnosis Pressure injury of left buttock, stage 1- Primary 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
--- OUTSIDE RECORDS SUMMARY | 2024-09-30 18:07 | External Medical Summary | Summary of Care ---
Author Name Unknown Organization [facility] Address [address] [place] [address] Phone [phone] Care Team Providers Care Coat Examiner Name Role Phone Fuentes Ashton MD Primary Care Provider [phone] Reason for Visit * Precert (Within 30 days (routine)) - Authorized Specialty Diagnoses / Procedures Referred By Contac t Referred To Contact Radiation Oncology Diagnoses Squamous cell carcinoma of skin of scalp and neck Procedures RAD ONC IovolMansoor mills MD [address] [place] [address] Rad/Onc [facility] [address] [place] [address] Referral ID Status Reason Start Date Expiration Date V isits Requested Visits Authorized [id number] Authorized Precert 08/24/2024 02/20/2025 [id number] Encounter Details Date Type Department Care Team (Late st Contact Info) Description 09/05/2024 11:00 AM EDT Documentation Radiation Oncology, [facility] [address] [place] [address] Mansoor Watson MD [address] [place] [address] [address], [address] Rad Onc [address] [place] [address] Allergies Active Allergy Reactions Criticality Noted Date Comments Aztreonam Hives Medium 10/11/2019 Cephalosporins Rash 05/24/2017 Tolerated cefazolin during August 2024 admission Chlorhexidine Hives,Rash High 01/02/2022 Full body red rash; "skin peeled completely off" Ciprofloxacin Diarrhea Medium 01/28/2015 Iodinated Contrast Media Abdominal pain High 019 Acute kidney failure Levofloxacin Rash Low 07/28/2019 documented as of this encounter (statuses as of 09/05/2024) Medications Medication Sig Dispensed Refills Start Date [...] Delayed Release (PriLOSEC)Indicatio ns:Gastroesophageal reflux disease without esophagitis,jail (current) use 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 Take by [...] Inhalation Aerosol Powder Breath ActivatedIndication s:COPD, moderate ([facility]) Inhale 2 Puffs by mouth every 4 hours as needed for Shortness of Breath. 1 Each 07/06/2024 Active Additional Information Patient not taking.Reported on 08/25/2024 Albuterol Sulfate (2.5 MG/3ML) 0.083% Inhalation Nebulization Solution (Proventil)Indicati ons:COPD, group C, by GOLD 2017 classification ([facility]) Inhale 1 Vial via nebulizer [...] as of this encounter (statuses as of 09/05/2024) Active Problems Problem Noted Date Diagnosed Date [...] from 2018 Atherosclerotic heart diseas e of [place] coronary artery without angina pectoris 05/31/2020 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) 0 03/09/2018 Overview: MRI 02/23 jail (current) use 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 Steroid-induced diabetes [...] as of this encounter (statuses as of 09/05/2024) Resolved Problems Problem Noted Date Diagnosed Date [...] chronic kidney disease 08/03/2023 08/03/2023 Atherosclerosis of [place] co ronary artery without angina pectoris 02/01/2023 [...] failure 06/26/2018 02/06/2022 Small vessel vasculitis 06/26/2018 08/1 07/2018 Acute hemodialysis patient 06/26/2018 0 07/29/2018 Septic [...] as of this encounter (statuses as of 09/05/2024) Immunizations Name Administration Dates Next Due COVID-19 mRNA, LNP-s, No Pre serve, 2-Dose Series (Daily[employer]) 08/15/2021,01/31/2021,01/03/2021 COVID-19, LNP-s, No Preserve , Ruslan-sucrose, Ages 12+ (Pfizer) 03/19/2022 COVID-19, MRNA-LNP, 23-24, P F, 30 MCG/0.3 mL, 12 YRS AND ABOVE, IM ([facility]) 10/25/2023 Covid-19, Mrna, Lnp-s, Pf, B ivalent, 30 Mcg, IM, 12 yrs and above ([employer]) 2022 Pneumococcal Conjugate Vacc, 13 Valent (Prevnar) 01/21/2016 Pneumococcal Conjugate Vacci ne, 20-valent ([id number]) 07/19/2023 Pneumococcal Polysaccharide PPV23 (Pneumovax) 01/13/2011 RSV [...] as of this encounter Miscellaneous Notes * Radiation Planning Note - Mansoor Watson MD - 09/05/2024 11:39 AM EDT RADIATION ONCOLOGY SIMULATION & START OF TREATMENT NOTE [facility] Name: Kennedy Davis Date: 09/05/2024 Kennedy Davis underwent simulation in Radiation Oncology at [facility] on 09/05/2024. Date and Time of Procedure: 09/05/2024 at 11:39 AM HISTORY OF PRESENT ILLNESS Mr. Davis is a 78 year old male with a left neck cSCC, [id number] Stage III (diagnosed 06/2024). He is s/p Mohs surgery (5 total stages) with Dr. Fernandes completed 07/26/2024 and 07/31/2024 followed by leftscck wide local excision, left neck dissection, and reconstruction with Dr. Aldridge on 08/10/2024. Pathology from initial Mohs surgeries showed positive margins, extensive intraneural and perineural invasion of large caliber nerves, and tumor invasion into SCM muscle. No residual tumor or LN involvement identified on subsequent surgery with neck dissection. Patient was recommended adjuvant radiation at the [facility] SIMULATION The patient is a 78 year old male who was simulated for adjuvant radiation therapy to the left neckpost-op bed. The potential benefits and risks of radiation therapy were reviewed with the patient and family in detail. The alternative treatment options and expected outcomes were also discussed with the patientand family in detail. Written informed consent was obtained. The relevant diagnostic images were reviewed prior to simulation. The radiation planning CT scan will be fused to other diagnostic radiology studies (such as MRI or PET) if these will aid target and/or normal tissue delineation. Description of the procedure: The patient was brought to the simulator room and placed in the treatment position. The patient wasimmobilized per department protocol. Reference point was placed and verified. The radiation planning CT scan was then obtained. Measurements were taken and barnes were placed. Radiation treatment position: supine Radiation immobilization devices: head and neck thermoplastic mask Other radiation planning issues: scar marker Radiation planning CT parameters: shallow free breathing CT scan Radiation planning CT contrast: no CT scan oral or IV contrast. Patient breathing: shallow free breathing Radiation gating: none Radiation treatment planning: intensity modulated radiation therapy (IMRT) IMRT justification (if applicable): concave or convex gross tumor margin , at least 3 critical dose limiting structures adjacent to butoutside of the planned treatment volume that would incur unacceptable morbidity with conventional radiation therapy, and IMRT would significantly decrease the probability of grade 2 or grade 3 radiation toxicity when compared to conventional radiation therapy IMRT avoidance structures (if applicable): brainstem, optic apparatus, auditory apparatus, salivary glands, brachial plexus, and spinal cord Radiation dose (estimated): 6000 cGy Positioning verification and target localization: cone beam computed tomography Concurrent chemotherapy: no The CT images were transferred to the radiation treatment planning system. The target volumes and critical adjacent normal tissues were contoured. The images and contours were discussed with and submitted to dosimetry and/or physics for treatment planning and dose calculation. The patient has been scheduled to return for treatment initiation in the near future, once a treatment plan has been designed. The patient will be seen on a regular basis once treatment begins. Mansoor Watson MD 09/05/2024 documented in this encounter Plan of Treatment Upcoming Encounters Date Type Department Care Team (Late st Contact Info) Description 09/15/2024 2:30 PM EST Office Visit Otolaryngology/Head & Neck/Facial Plastic Surgery [address] [place] [address] Lexie Aldridge MD [address] [place] [address] 09/15/2024 3:45 PM EST Office Visit Dental Medicine, [place] [address], [place] [phone] Russel Caceres DMD [address], [place] [phone] 10/09/2024 2:20 PM EST Office Visit [facility] [address] [place] [phone] David Antunez MD [address] [place] [address] 11/14/2024 1:15 PM EST Office Visit MOHS Surgery [facility] [address] [place] [address] Supriya Fernandes MD [address] [place] [address] 12/21/2024 1:30 PM EST Office Visit Dermatology, [facility] [address] [facility] [address] [place], [place] [phone] Malaika Guzman PA-C [address] [place] [address] 12/22/2024 12:00 PM EST Office Visit Nephrology, [address] [phone] Keisha Gunn MD [address] [place] [address] 01/22/2025 1:30 PM EDT PulmDiagnostic Pulmonary Function Lab [facility] [address] [facility] [place] [address] [address] Sonali Thang [place] [address] 01/22/2025 2:00 PM EDT Office Visit Pulmonary Medicine [facility] [employer] [address] [place] [phone] Dominguez Aguilar MD [address] [facility] [place] [address] 02/05/2025 10:00 AM EDT Office Visit Rheumatology, [facility] [address] [place] [address] Rafael Hernandez PA-C [address] [place] [address], [place] [address] 02/06/2025 1:30 PM EDT Office Visit [address]iology, [address] [address] Cherry Warner PA-C [address] [place] [address] Scheduled Procedures Name Priority Associated Diagnoses Date/Ti [...] this encounter Medical Devices Implanted Type Area Supervisor Cap And Hat Production Device Identifier Shelf Expiration Date Model / Serial / Lot Mesh Perfix Plug Lg [id number] - [id number] Implanted:Qty : 1 on 02/07/2019 by Jonathan Correia DO at OR [facility] Right: Groin CR BARD : DAVOL 09/04/2023 [id number] / / [id number] Cytal Wndmtx 1lyr [id number](150 Units) - [id number] - [id number] Implanted:Qty : 1 on 08/10/2024 by Lexie Aldridge MD at OR [facility] Left: Leg Upper [employer] [id number] 10/07/2025 [id number] / [id number] / [id number] Cytal Wndmtx 1lyr 7x10cm (70 Units) - [id number] - [id number] Implanted:Qty : 1 on 08/10/2024 by Lexie Aldridge MD at OR [facility] Left: Leg Upper [employer] [id number] 01/05/2026 [id number] / [id number] / [id number] documented as of this encounter Advance Directives Documents on File Type Date Recorded Patient Supervisor Microbiology Technologists Expl anation Advance Directives and Living Will [...] [place] Adult Child Emergency Contact Care Teams Coat Examiner Relationship Specialty Start Date End Date Fuentes Ashton MD [address] [place] [address] PCP - General Family Medicine 01/30/22 documented as of this encounter
--- OUTSIDE RECORDS SUMMARY | 2024-09-30 18:07 | External Medical Summary | Summary of Care ---
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 Vannessa Cameron MD [address] [place] [address] Referral ID Status Reason Start Date Expiration Date Visits Requested Visits Authorized [id number] Pending Review Specialty Services Required [phone] Encounter Details Date Type Department Care Team (Late st Contact Info) Description 09/05/2024 10:00 AM EDT Office Visit Radiation Oncology, [facility] [address] [place] [address] Mansoor Watson MD [address] [place] [address] 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 180 Each 3 01/28/20 24 Active Furosemide 20 MG Oral Tablet (Lasix)Indication s:Bilateral lower extremity edema Take 1 Tablet by mouth daily as needed (lower extremity edema). 30 Tablet 11 03/31/20 24 Active Sodium Bicarbonate 650 MG Oral Tablet Take 1 Tablet by mouth in the morning and 1 Tablet before bedtime. 180 Tablet 3 04/19/20 24 Active predniSONE 5 MG Oral Tablet (Deltasone)Indica tions:Erythema nodosum Take 1.5 Tablets by mouth in the morning. 135 Tablet 4 05/03/20 24 Active Calcitriol 0.25 MCG Oral Capsule (Rocaltrol)Indica tions:Renal osteodystrophy Take 1 Capsule by mouth in the morning. 30 Capsule 5 05/23/20 24 Active Albuterol Sulfate 108 (90 Base) MCG/ACT Inhalation Aerosol Powder Breath ActivatedIndicati ons:COPD, moderate ([facility]) Inhale 2 Puffs by mouth every 4 hours as needed for Shortness of Breath. 1 Each 07/06/20 Active Additional Information Patient not taking.Reported on 08/25/2024 Albuterol Sulfate (2.5 MG/3ML) 0.083% Inhalation Nebulization Solution (Proventil)Indica tions:COPD, group C, by GOLD 2017 classification ([facility]) Inhale 1 Vial via nebulizer every 4 hours as needed for Shortness of Breath or Wheezing. 360 mL 07/06/20 24 Active Allopurinol 100 MG Oral Tablet (Zyloprim) Take 2 Tablets by mouth in the morning. 180 Tablet 4 07/17/20 24 Active Econazole Nitrate 1 % External Cream (Spectazole)Indic ations:Rash and nonspecific skin eruption Apply to affected area on buttock, back and legs twice a day for 6 weeks 170 g 3 07/24/20 24 Active Aquaphor External Ointment Apply topically to affected area 3 times a day. Apply to neck three times daily 396 g 08/22/20 24 Active Zinc Oxide 40 % [...] by mouth at bedtime. 90 Tablet 1 09/04/20 Active PredniSONE (DELTASONE) 20 MG TabletIndications :Contact dermatitis Take 2 Tabs by mouth daily for 5 days. 10 Tab 0 08/29/20 15 Discontinued(En d of Procedure) PredniSONE (DELTASONE) 20 MG TabletIndications :Dysphagia, unspecified type,Acute pharyngitis, unspecified etiology,Ptosis of left eyelid Take 2 Tabs by mouth daily for 7 days. 14 Tab 11/15/19 18 Discontinued(En d of Procedure) predniSONE 20 MG Oral Tablet (Deltasone)Indica tions:COPD with acute exacerbation (HCC) Take by mouth 2 Tablets in the morning for 5 days. 10 Tablet 12/08/19 22 Discontinued(En d of Procedure) Doxycycline Monohydrate 100 MG Oral Capsule Take 1 Capsule by mouth in the morning and 1 Capsule before bedtime. Do all this for 7 days. 14 Capsule 07/26/20 24 Discontinued(En d of Procedure) Doxycycline Monohydrate 100 MG Oral CapsuleIndication s:Squamous cell carcinoma of neck Take 1 Capsule by mouth in the morning and 1 Capsule before bedtime. Do all this for 7 days. 14 Capsule 08/25/20 24 Discontinued(En d of Procedure) Fluzone High-Dose 0.5 ML Suspension Prefilled Syringe Inject 0.5 mL into a large muscle. 0.5 mL 09/05/20 24 Discontinued Hospital, Clinic, or Other Facility Administered [...] 2018 Atherosclerotic heart diseas e of [place] coronary artery without angina pectoris 05/31/2020 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) 0 03/09/2018 Overview: MRI 02/23 [facility] (current) use of systemic [...] kidney disease 08/03/2023 08/03/2023 Atherosclerosis of [place] co ronary artery without angina pectoris 02/01/2023 [...] mRNA, LNP-s, No Pre serve, 2-Dose Series ([employer]) 08/15/2021,01/31/2021,01/03/2021 COVID-19, LNP-s, No Preserve , Ruslan-sucrose, Ages 12+ (Pfizer) 03/19/2022 COVID-19, MRNA-LNP, 23-24, P F, 30 MCG/0.3 mL, 12 YRS AND ABOVE, IM (PFIZER-Comirnaty) 10/25/2023 Covid-19, Mrna, Lnp-s, Pf, B ivalent, 30 Mcg, IM, 12 yrs and above (Pfizer) 2022 Pneumococcal Conjugate Vacc, 13 Valent (Prevnar) 01/21/2016 Pneumococcal Conjugate Vacci ne, 20-valent ([id number]) 07/19/2023 Pneumococcal Polysaccharide PPV23 (Pneumovax) 01/13/2011 RSV [...] Sign Reading Time Taken Comments Blood Pressure 142/7 09/05/2024 9:57 AM EDT Pulse 71 09/05/2024 9:57 AM EDT Temperature 36.5 C (97.7 F) 09/05/2024 9:57 AM ED T Respiratory Rate 18 09/05/2024 9:57 AM EDT Oxygen Saturation 99% 09/05/2024 9:57 AM EDT Inhaled Oxygen Concentration - - Weight 68.7 kg (151 lb 8 oz) 09/05/2024 9:57 AM EDT Height - - Body Mass Index 23.72 08/20/2024 6:02 AM EDT documented in this encounter Functional Status Functional [...] as of this encounter Progress Notes * Lyla Zacarias LPN - 09/05/2024 10:04 AM EDT PRE - ADMINISTRATION DOCUMENTATION Are you experiencing any cold symptoms or fever? No Have you had Guillain-Minotola Syndrome (an illness that causes paralysis) within the last 6 weeks? No Have you had the flu shot in the past? YES Have you ever had a reaction to the flu shot? No Lyla Zacarias LPN, 09/05/2024 10:04 AM Immunization Administration Documentation Time Out Procedure Performed: Yes Patient Identified (Ask Name/Date of ): Yes Does the patient have a fever greater than 101 degrees today? No Patient allergic to latex? No [facility] Stock: No Immunization(s) verified: Yes, Immunization Name: Flu, VIS Sheet(s) given: Yes Verified Side and Site: Yes Verified Shot(s) with Parent(s)/Patient: Yes * Mansoor Watson MD - 09/05/2024 10:00 AM EDT Images from the original note were not included. RADIATION ONCOLOGY CONSULTATION NOTE Radiation Oncology, [place] [id number] Name: Kennedy Davis Date: 09/05/2024 REFERRING PHYSICIAN: Vannessa Cameron MD DIAGNOSIS: Left neck cSCC, [id number] Stage III (diagnosed 06/2024) PRIOR THERAPY: Mohs surgery (5 total stages) with Dr. Fernandes completed 07/26/2024 and 07/31/2024 Left neck wide local excision, left neck dissection, and reconstruction with Dr. Aldridge on 08/10/2024 HISTORY OF PRESENT ILLNESS: Mr. Davis is a 78 year old male with a history of multiple skin cancers who initially presented with a left neck skin lesion to dermatology. Biopsy on 06/27/24 was positive for moderately differentiated SCC. MRI neck on 07/19/24 demonstrated a large cutaneous/subcutaneous lesion centered in the left lateralneck soft tissues, measuring up to 4.9 x 1.7 x 2.7 cm (AP x TR x CC), and abutting, with concern for possible invasion of, the adjacent sternocleidomastoid muscle. No overtly suspicious, cystic, or pathologically enlarged lymph nodes in the neck. Patient underwent Mohs left neck lesion debulking on 07/26/24. Pathology after two stages of Mohs surgery demonstrated persistently positive margins, extensive intraneural and perineural invasion of large caliber nerves, and tumor invasion into SCM muscle. On 07/31/24 patient underwent 3 further stages of Mohs surgery (5 total) with persistently positive deep margin unable to be further excised in an office setting. Patient then underwent left neck wide local excision, left neck dissection, and reconstruction withleft pectoralis major flap and split thickness skin graft with Dr. Aldridge on 08/10/24. Postoperativecourse complicated by pec flap hematoma x2 and anemia. Pathology demonstrated no residual carcinomaand 0/26 LNs involved. He was discussed at [facility] tumor board with recommendation for adjuvant radiation. DERM HISTORY: Hx moderately diff SCC L neck (2023), SCC mid chest (2020-curettage), SCC R forearm (2020-curettage), BCC mid back (2021-Mohs), BCC R upper back (2021- curettage), SCC L forearm (2021-curettage), BCC R posterior ear (2021-deferred Mohs, curetted) INTERVAL HISTORY: Patient presents to clinic with his to discuss the role of adjuvant radiation. Overall patientreports he has been doing well since his surgery. He has some mild tenderness at the left neck surgical site and feels tightness when during his head, but otherwise he believes it has been healing well. He denies dysphagia, fevers, chills, chest pain, or SOB. He has not been active lately due to activity restrictions from his surgery team but is usually active his garage working on cars. He has had increased back pain recently that he is getting worked up through the [employer]. He is on long-term prednisone due to erythema nodosum that may have predisposed him to more aggressive skin cancer development.. No other concerns. RADIATION HISTORY: Patient denies history of previous therapeutic radiation. Patient denies any history of lupus, scleroderma, or other collagen vascular diseases. Patient denies Pacemaker, ICD and/or other implanted device(s). MEDICAL HISTORY: Patient Active Problem List Diagnosis Essential hypertension Gastroesophageal reflux disease without esophagitis HTN, goal below 140/90 Dyslipidemia, goal LDL below 70 Erythema nodosum Acquired hypothyroidism Mediastinal lymphadenopathy Spinal stenosis of lumbar region with neurogenic claudication [facility] (current) use 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 Steroid-induced diabetes (HCC) IPMN (intraductal papillary mucinous neoplasm) 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HCC) History of acute tubular necrosis Paroxysmal atrial fibrillation (HCC) Senile osteoporosis Vitamin D deficiency Chronic anticoagulation CKD (chronic kidney disease) stage 4, GFR 15-29 ml/min (HCC) Atherosclerotic heart disease of [place] coronary artery without angina pectoris Atherosclerosis of abdominal aorta (HCC) COPD, moderate (HCC) Telangiectasias 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) Atherosclerosis of renal artery (HCC) Chronic intestinal vascular insufficiency (HCC) History of sepsis Heart failure (HCC) Cat bite Chronic heart failure with preserved ejection fraction (HFpEF) (HCC) Iron deficiency anemia Hypocalcemia 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) 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) COPD, group B, by GOLD 2017 classification (HCC) Chronic gout due to renal impairment of [...] left chest wall LIZZ (acute kidney injury) ([facility]) Past Medical History: Diagnosis Date Abdominal aortic aneurysm (AAA) without rupture ([facility]) 07/11/2015 09/01/16: 3.78cm - repeat 1 yr 01/27/16: US: 3.87cm AAA - repeat 6 months 07/11/15: sts he had an US in the past - will check records Acute pancreatitis 03/09/2018 LIZZ (acute kidney injury) ([facility]) 06/26/2018 Aspergillosis ([facility]) 07/17/2019 history of Aspergillosis on the note on 3.[address] and AMP ATN (acute tubular necrosis) ([facility]) Bilateral pneumonia 08/08/2019 Acute, resolved? 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 Community acquired pneumonia 05/30/2019 COPD (chronic obstructive pulmonary disease) ([facility]) Diet-controlled diabetes mellitus ([facility]) 03/03/2021 Encounter for long-term (current) use of medications 09/06/2018 Enteritis 10/09/2017 Erythema nodosum Esophageal reflux Heart failure with acute decompensation, type unknown ([facility]) 06/07/2019 Herpes zoster without mention of complication History of pneumonia 06/22/2018 B/l PNA 06/2018 Hyperkalemia 12/16/2021 Hypertensive heart disease with heart failure and stage 5 chronic kidney disease, not on chronic dialysis ([facility]) 08/22/2019 ckd 4 ? Hypoglycemia associated with type 2 diabetes mellitus ([facility]) 07/21/2019 Moderate protein-calorie malnutrition ([facility]) 01/06/2021 Protein-calorie malnutrition ([facility]) 06/23/2019 Pure hypercholesterolemia Sepsis ([facility]) acute Severe malnutrition ([facility]) 02/27/2018 Stage II pressure ulcer of left buttock ([facility]) 02/06/2022 Tinea cruris 09/28/2017 Unspecified essential hypertension Uveitis OS Past Surgical History: Procedure Laterality Date ADJACENT TISSUE TRANS >10SQCM TRUNK Left 08/10/2024 ADJACENT TISSUE TRANSFER TRUNK 10.1 TO 30SQ CM performed by Sin Tovar, at [place] [facility] ANESTH, LUMBAR SPINE/CORD SURGERY 2017 L2-L5 BIOPSY OF NECK/CHEST N/A 08/10/2024 EXCISION SOFT TISSUE NECK THORAX performed by Lexie Aldridge MD at [place] [facility] BRONCHOSCOPY, DX W/ EBUS, 1-2 NODES N/A 12/09/2017 BRONCHOSCOPY, RIGID OR FLEXIBLE, INCLUDING FLUOROSCOPIC GUIDANCE, WHEN PERFORMED; WITH EBUS GUIDED TRANSTRACHEAL AND/OR TRANSBRONCHIAL SAMPLING (EG, ASPIRATION[S]/BIOPSY[IES]), 1 OR 2 MEDIASTINAL AND/OR HILAR LYMPH NODE STATIONS OR STRUCTURES performed by Dominguez Aguilar MD at OR [facility] COLONOSCOPY, DIAGNOSTIC (RECTUM) 09/04/2015 Internal hemorrhoids, 5 yr recall COLONOSCOPY FLEXIBLE PROXIMAL DIAGNOSTIC performed by Yudelka Hopkins DO at ENDOSCOPY [facility] COLONOSCOPY, DIAGNOSTIC (RECTUM) 01/05/2018 diverticulosis sigmoid colon/internal hemorrhoids/recall 5 years/COLONOSCOPY FLEXIBLE PROXIMAL DIAGNOSTIC performed by Farrukh Gilliam MD at ENDOSCOPY GE DRAIN NECK/CHEST ABSCESS/HEMATOMA Left 08/13/2024 INCISION AND DRAINAGE SOFT TISSUE NECK THORAX performed by Yumiko Gil MD at [facility] [address] DRAIN NECK/CHEST ABSCESS/HEMATOMA Left 08/13/2024 INCISION AND DRAINAGE SOFT TISSUE NECK THORAX performed by Yumiko Gil MD at [facility] [address] [address] EGD, FLEXIBLE, DIAGNOSTIC N/A 01/05/2018 hiatal hernia/normal/ESOPHAGOGASTRODUODENOSCOPY (EGD), FLEXIBLE, TRANSORAL, DIAGNOSTIC performed byFarrukh Gilliam MD at ENDOSCOPY GE INSER CHU CAT,W/O PUMP;5YR/OLD N/A 06/16/2019 INSERT TUNNELED CENTRAL VENOUS CATHETER AGE 5 OR OLDER performed by Vickey Woodruff MD at OR [facility] INSERTION OF LENS PROSTHESIS Left 05/02/2020 IR VENOUS ACCESS NON-MEDIPORT 10/24/2019 MUSCLE, MYOCUTANEOUS, OR FASCIOCUT FLAP; HEAD AND NECK W/PEDICLE 08/10/2024 MUSCLE, MYOCUTANEOUS, OR FASCIOCUTANEOUS FLAP PRESERVATION VASCULAR PEDICLE performed by Sin Tovar DO at [facility] [address] OTHER (INFORMATION) Removal of basal cell carcimoma from the back. REMOVAL OF NECK LYMPH NODES N/A 08/10/2024 CERVICAL LYMPHADENECTOMY COMPLETE performed by Lexie Aldridge MD at [place] [facility] REPAIR INITIAL INGUINAL HERNIA REDUCIBLE AGE 5 OR MORE Left 2009 REPAIR INITIAL INGUINAL HERNIA REDUCIBLE AGE 5 OR MORE Right 02/07/2019 REPAIR INITIAL INGUINAL HERNIA REDUCIBLE AGE 5 OR MORE performed by Jonathan Correia DO at OR [facility] SKIN SPLIT GRAFT, FACE/NECK/EARS 08/10/2024 SPLIT GRAFT FACE SCALP ETC LESS THAN 100SQ CM performed by Sin Tovar DO at [place] [facility] WND REPR,LAYERD,NECK/DIGITS/GENIT,12.6-20CM Left 08/10/2024 LAYER CLOSURE WOUND NECK HAND FEET GENITALS 12.6 TO 20CM performed by Sin Tovar DO at [place] [facility] Current Outpatient Medications Medication Sig Dispense Refill Apixaban 5 MG Oral Tablet (Eliquis) Take by mouth 1 Tablet in the morning AND 1 Tablet before bedtime. (Patient taking differently: Take 1 Tablet by mouth in the morning and 1 Tablet before bedtime. Pt off Eliquis as of 08/07 for surgery.) 60 Tablet 0 Levothyroxine Sodium 50 MCG Oral Tablet [...] mouth in the morning. 180 Each 3 Sodium Bicarbonate 650 MG Oral Tablet Take 1 Tablet by mouth in the morning and 1 Tablet before bedtime. 180 Tablet 3 predniSONE 5 MG Oral Tablet (Deltasone) Take 1.5 Tablets by mouth in the morning. 135 Tablet 4 Calcitriol 0.25 MCG Oral Capsule (Rocaltrol) Take 1 Capsule by mouth in the morning. 30 Capsule 5 Allopurinol 100 MG Oral Tablet (Zyloprim) Take 2 Tablets by mouth in the morning. 180 Tablet 4 Folic Acid 1 MG Oral Tablet Take 1 Tablet by mouth in the morning. 30 Tablet 0 Vitamin B-12 1000 MCG Oral Tablet (Cyanocobalamin) Take 1 Tablet by mouth in the morning. 30 Tablet0 Atorvastatin Calcium 20 MG Oral Tablet (Lipitor) Take 1 Tablet by mouth at bedtime. 90 Tablet 1 Tylenol 325 MG Oral Capsule (Acetaminophen) Take by mouth 2 Tablets every 6 hours as needed for Pain, Mild or Other (Fever, Headache). 90 Capsule 0 Furosemide 20 MG Oral Tablet (Lasix) Take 1 Tablet by mouth daily as needed (lower extremity edema). 30 Tablet 11 Albuterol Sulfate 108 (90 Base) MCG/ACT Inhalation Aerosol Powder Breath Activated Inhale 2 Puffs by mouth every 4 hours as needed for Shortness of Breath. (Patient not taking: Reported on 08/25/2024) 1 Each 11 Albuterol Sulfate (2.5 MG/3ML) 0.083% Inhalation Nebulization Solution (Proventil) Inhale 1 Vial via nebulizer every 4 hours as needed for Shortness of Breath or Wheezing. 360 mL 11 Econazole Nitrate 1 % External Cream (Spectazole) Apply to affected area on buttock, back and legs twice a day for 6 weeks 170 g 3 Aquaphor External Ointment Apply topically to affected area 3 times a day. Apply to neck three times daily 396 g 0 Zinc Oxide 40 % External Paste (Desitin) Apply to buttocks as needed. 57 g 0 Current Facility-Administered Medications Medication Dose Route Frequency Provider Last Rate Last Admin oxygen GAS Inhalation Oxygen Review of patient's allergies indicates: Allergen Reactions Chlorhexidine Hives and Rash Full body red rash; "skin peeled completely off" Iodinated Contrast Media Abdominal pain Acute kidney failure Azactam [Aztreonam] Hives Ciprofloxacin Diarrhea Cephalosporins Rash Tolerated cefazolin during August 2024 admission Levofloxacin Rash Social History Socioeconomic History Marital status: Spouse name: Karen Number of children: 4 Years of education: 10 Highest education level: Not on file Occupational History 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 3 cats No mold Wood stove and oil heating Window air conditioner [place] water 10 months while in the service for asbestos exposure Second hand smoke exposure with family Social Determinants of Health Financial Resource Strain: Low Risk (08/23/2024) Financial Resource Strain Do you have any trouble paying for your medications, or do you think you might in the future? (Adult - for ages 18 years and over): No Does your family have trouble paying for medicine? (Household - for ages 0-17 years): Not on file Food Insecurity: No Food Insecurity (08/23/2024) Food Insecurity Do you need food for this week? (Adult - for ages 18 years and over): No Are you able to get enough food for your family? (Household - for ages 0-17 years): Not on file Does your family need food this week? (Household - for ages 0-17 years): Not on file Do you always have enough food for your family? (Household - for ages 0-17 years): Not on file Transportation Needs: No Transportation Needs (08/23/2024) Transportation Needs Do you have trouble getting a ride to medical visits or work? (Adult - for ages 18 years and over):Never True Does your family have a hard time getting a ride to doctors visits? (Household - for ages 0-17 years): Not on file Has lack of transportation kept you from medical appointments, meetings, work, or from getting things needed for daily living? Check all that apply. (Adult - for ages 18 years and over): No Do you (or your family) have trouble finding or paying for a ride (transportation)? (Household - for ages 0-17 years): Not on file Social Connections: Socially Integrated (08/23/2024) Social Connections How often do you feel lonely or isolated from those around you? (Adult - for ages 18 years and over): Never Housing Stability: Low Risk (08/23/2024) Housing Stability Do you currently live in a jail or have no steady place to sleep at night? (Adult - for ages 18 years and over): No Do you think you are at risk of becoming homeless? (Adult - for ages 18 years and over): No Does your family worry about paying for your home or becoming homeless? (Household - for ages 0-17 years): Not on file Are you homeless or worried that you might be in the future? (Adult - for ages 18 years and over): No Are you (or your family) homeless or worried that you might be in the future? (Household - for ages0-17 years): Not on file Family History Problem Relation Name Age of Onset No Past Hx Mother at 97 Heart attack Father 84 Other (unknown cause of ) Sister Linda 90 Osteoporosis Sister Emmanuelle Renal Hx Sister Emmanuelle Osteoporosis Sister Vicky Renal Hx Sister [place] Heart Disorder Brother Martin CAD started in his late 70's Diabetes Brother Martin Heart attack Brother Martin Diabetes Brother Nikkon Other (PVD) Brother Kelly Perpheral vasc dz Gastro-intestinal disorder Brother Homero at 85 from liver cirrhosis - non-ETOH Cancer Brother Donnell in his late 70's from throat cancer Other (Other) Brother Michi at a couple of months from pneumonia Other (unknown cause of ) Brother Morales REVIEW OF SYSTEMS: Please see history of present illness above. Review of systems is otherwise non-contributory. ECOG PERFORMANCE STATUS: 2 = Ambulatory and capable of self care, unable to carry out work activity, up and about greater than 50% of waking hours PHYSICAL EXAMINATION: BP 142/7 (BP Site: Left Arm, BP Position: Sitting, BP Cuff Size: Regular) | Pulse 71 | Temp 36.5 C (97.7 F) (Infrared ) | Resp 18 | Wt 68.7 kg (151 lb 8 oz) | SpO2 99% | BMI 23.72 kg/m | BSA 1.8 m Wt Readings from Last 4 Encounters: 09/05/24 68.7 kg (151 lb 8 oz) 08/31/24 68.6 kg (151 lb 3.2 oz) 08/25/24 67.5 kg (148 lb 12.8 oz) 08/22/24 74.4 kg (164 lb) General: Pleasant, elderly appearing, alert and oriented x3, no apparent distress. Head and neck: Face is symmetric, conjunctiva non-icteric bilaterally. Well healing left neck skin graft. Neurologic: Speech intact, cognition normal, no focal deficits. Thorax: Unlabored breathing on room air. Musculoskeletal: Normal muscle bulk and tone, kyphotic spine, ambulates slowly with a normal gait. Extremities: Non-edematous bilaterally. LABS: Results for orders placed or performed in [...] WBCs Results for orders placed or performed in visit on 09/01/24 COMPREHENSIVE METABOLIC PANEL Result Value Ref Range BUN 59 (H) 6 - 20 mg/dL CREATININE 3.6 (H) 0.6 - 1.2 mg/dL EGFR 17 (L) >=60 mL/min SODIUM 138 135 - 146 mmol/L POTASSIUM 4.7 3.5 - 5.1 mmol/L CHLORIDE 104 98 - 107 mmol/L CO2 24 22 - 32 mmol/L ANION GAP 10 7 - 15 mmol/L GLUCOSE 107 70 - 120 mg/dL Albumin 3.7 (L) 3.8 - 5.0 g/dL AST 29 10 - 50 U/L Alkaline Phosphatase 88 35 - 130 U/L Bilirubin, Total 0.4 <=1.2 mg/dL CALCIUM 9.3 8.4 - 10.2 mg/dL Protein 6.7 6.0 - 8.3 g/dL ALT 25 10 - 50 U/L PATHOLOGY: See HPI. RADIOGRAPHIC IMAGING: See HPI. Lo imaging screen captures from review of radiology datasets (pre-surgery): ASSESSMENT: Mr. Davis is a 78 year old male with a left neck cSCC, [id number] Stage III (diagnosed 06/2024). He is s/p [...] Patient was recommended adjuvant radiation at the [facility]. 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 The goal of radiation is to reduce the risk of recurrence, particularly in high risk areas where further surgery would be difficult. Based on his high risk clinical factor of large caliber perineural invasion, adjuvant radiation is indicated. Since his neck dissection and imaging showed no evidence of regional lymph node involvement, I would like to treat the post-operative bed alone without elective neck radiation. Patient follows up with Dr. Aldridge and the [facility] dental team in two weeks, so we will tentatively plan to start radiation after these visits if we get the all clear signal from both parties. Sincethe focus is on the post-operative bed alone, I expect minimal radiation dose to affect the oral cavity and teeth/mandible. He only has lower teeth currently. Ideally I would like to start his radiation within 6 weeks of his surgery but this needs to be balanced against making sure his flap is healing appropriately. PLAN: - Radiation therapy 6000 cGy in 30 fractions to the left neck post-operative bed - Simulation planning scheduled for today - Treatment to tentatively start the week of 09/18/2024 The role of radiation therapy in this situation was discussed with the patient. The logistics, potential benefits, and potential side effects of radiation therapy were reviewed. Possible short-term and long-term side effects of radiation therapy were discussed. The patient voiced understanding of all of the above. All questions and concerns were addressed in a satisfactory manner. I spent a total of Greater than 55 mins (exact time 75 mins) on the date of service in preparation,delivery, and documentation of the care provided to Kennedy Davis excluding any time spent in the performance of separately billed services or time spent by another provider/QHP. Thank you very much for having asked us to evaluate this patient. Mansoor Watson MD 09/05/2024 documented in this encounter Nursing Notes * Lyla Zacarias LPN - 09/05/2024 9:56 AM EDT Chief Complaint Patient presents with Consultation SCC of left neck Patient presents with today for consult. Patient was instructed to not get up on the exam table/exam chair until directed and assisted by their provider; patient is to remain seated in the chair/ wheelchair/ exam table/ exam chair for fall prevention and safety reasons. Patient is aware to have assistance to step down off exam table/exam chair with personnel. Patient voiced full comprehension of instructions. Patient has no CGM, pacemaker, defibrillator, neurostimulator. A [facility] binder, as well as the following Radiation Therapy handouts, were given to the pt: Managing Short Term Side Effects,Your Daily Life, Understanding Radiation Therapy, Support and Resources, Skin Care During Radiation Therapy, Radiation Therapy Treatment, and Radiation Therapy Team. Patient will have simulation today in clinic. Informed consent was obtained. documented in this encounter Plan of Treatment Upcoming Encounters Date Type Department Care Team (Late st Contact Info) Description 09/15/2024 2:30 PM EST Office Visit Otolaryngology/Head & Neck/Facial Plastic Surgery [address] [place] [address] Lexie Aldridge MD [address] [place] [address] 09/15/2024 3:45 PM EST Office Visit Dental Medicine, [facility] [address] [place] [address] Russel Caceres DMD [address] [place] [address] 10/09/2024 2:20 PM EST Office Visit [facility] [address] [place] [phone] David Antunez MD [address] [place] [address] 11/14/2024 1:15 PM EST Office Visit MOHS Surgery [facility] [place] [address] [place] [address] Supriya Fernandes MD 200 [place] [address] 12/21/2024 1:30 PM EST Office Visit Dermatology, [address] [place] [address] [place] [address] Malaika Guzman PA-C [address] [place] [address] 12/22/2024 12:00 PM EST Office Visit Nephrology, [address] [address] Keisha Gunn MD [address] [place] [address] 01/22/2025 1:30 PM EDT PulmDiagnostic Pulmonary Function Lab [facility] [address] [place] [address] [address], [address] [facility] [place], [place] [address] 01/22/2025 2:00 PM EDT Office Visit Pulmonary Medicine [facility] [address] [place] [phone] Dominguez Aguilar MD [address] [place] [address] 02/05/2025 10:00 AM EDT Office Visit Rheumatology, [address] [address] Rafael Hernandez, PA-C [address] [facility] [place] [address] 02/06/2025 1:30 PM EDT Office Visit Cardiology, [place] [address] [place] [address] [place] Warner PA-C [address] [place] [address] Scheduled Procedures Name Priority Associated Diagnoses Date/Ti [...] this encounter Medical Devices Implanted Type Area Specimen Accessioner Device Identifier Shelf Expiration Date Model / Serial / Lot Mesh Perfix Plug Lg [id number] - [id number] Implanted:Qty : 1 on 02/07/2019 by Jonathan Correia DO at OR [facility] Right: Groin CR BARD : DAVOL 09/04/2023 [id number] / / [id number] Cytal Wndmtx 1lyr [id number](150 Units) - [id number] - [id number] Implanted:Qty : 1 on 08/10/2024 by Lexie Aldridge MD [place] [facility] Left: Leg Upper [employer] [id number] 10/07/2025 [id number] / [id number] / [id number] Cytal Wndmtx 1lyr 7x10cm (70 Units) - [id number] - [id number] Implanted:Qty : 1 on 08/10/2024 by Lexie Aldridge MD [place] [facility] Left: Leg Upper [employer] [id number] 01/05/2026 [id number] / [id number] / [id number] documented as of this encounter Visit Diagnoses Diagnosis 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- Primary Squamous cell carcinoma of scalp and skin of neck Need for prophylactic vaccination and inoculation against influenza documented in this encounter Advance Directives Documents on File Type Date Recorded Patient Agronomist Expl anation Advance Directives and Living Will [...] verbally by patient or by statute hierarchy) [facility] Adult Child Emergency Contact [phone] (Mobile) Care Teams Vocational Rehabilitation Technician Relationship Specialty Start Date End Date Fuentes Ashton MD [address] [place] [address] PCP - General Family Medicine 01/30/22 documented as of this encounter
--- OUTSIDE RECORDS SUMMARY | 2024-09-30 18:07 | External Medical Summary | Summary of Care ---
Author Name Unknown Organization [facility] Address [address] [facility] [place] [address] Phone [phone] Care Team Providers Care Stick Welder Name Role Phone Fuentes Ashton MD Primary Care Provider [phone] Encounter Details Date Type Department Care Team (Late st Contact Info) Description 09/04/2024 Orders Only [facility] 21 [facility] [place] [address] Devan Garcia MD 21 [facility] [place] [address] Allergies Active Allergy Reactions Criticality Noted Date Comments Aztreonam Hives Medium 10/11/2019 Cephalosporins Rash 05/24/2017 Tolerated cefazolin during August 2024 admission Chlorhexidine Hives,Rash High 01/02/2022 Full body red rash; "skin peeled completely off" Ciprofloxacin Diarrhea Medium 01/28/2015 Iodinated Contrast Media Abdominal pain High 019 Acute kidney failure Levofloxacin Rash Low 07/28/2019 documented as of this encounter (statuses as of 09/04/2024) Medications Medication Sig Dispensed Refills Start Date End Date Status PredniSONE (DELTASONE) 20 MG TabletIndications:C ontact dermatitis Take 2 Tabs by mouth daily for 5 days. 10 Tab 0 08/29/2015 Active PredniSONE (DELTASONE) 20 MG TabletIndications:D ysphagia, unspecified type,Acute pharyngitis, unspecified etiology,Ptosis of left eyelid Take 2 Tabs by mouth daily for 7 days. 14 Tab 11/15/2017 Active predniSONE 20 MG Oral Tablet (Deltasone)Indicati ons:COPD with acute exacerbation (HCC) Take by mouth 2 Tablets in the morning for 5 days. 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 30 minutes before a meal. 30 Capsule 01/05/2022 Active Atorvastatin Calcium 20 MG Oral Tablet (Lipitor)Indication s:Dyslipidemia, goal LDL below 70 Take 1 Tablet by mouth at bedtime. 90 Tablet 3 07/19/2023 Active Metoprolol Succinate ER 25 MG Oral [...] Inhalation Aerosol Powder Breath ActivatedIndication s:COPD, moderate ([facility]) Inhale 2 Puffs by mouth every 4 hours as needed for Shortness of Breath. 1 Each 11 07/06/2024 Active Additional Information Patient not taking.Reported on 08/25/2024 Albuterol Sulfate (2.5 MG/3ML) 0.083% Inhalation Nebulization Solution (Proventil)Indicati ons:COPD, group C, by GOLD 2017 classification ([facility]) Inhale 1 Vial via nebulizer every [...] in the morning. 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) 0 03/09/2018 Overview: MRI 02/23 FDC (current) use 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 Steroid-induced diabetes [...] as of this encounter (statuses as of 09/04/2024) Resolved Problems Problem Noted Date Diagnosed Date [...] kidney disease 08/03/2023 08/03/2023 Atherosclerosis of [place] co ronary artery without angina pectoris 02/01/2023 [...] Cachexia 08/30/2019 05/31/2020 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 [...] PL and AMP Hypertensive heart disease w [facility] heart failure and stage 3 chronic [...] as of this encounter (statuses as of 09/04/2024) Immunizations Name Administration Dates Next Due COVID-19 mRNA, LNP-s, No Pre serve, 2-Dose Series (Pixta) 08/15/2021,01/31/2021,01/03/2021 COVID-19, LNP-s, No Preserve , Ruslan-sucrose, Ages 12+ (Pixta) 03/19/2022 COVID-19, MRNA-LNP, 23-24, P F, 30 MCG/0.3 mL, 12 YRS AND ABOVE, IM (PFIZER-Comirnaty) 10/25/2023 Covid-19, Mrna, Lnp-s, Pf, B ivalent, 30 Mcg, IM, 12 yrs and above (Pfizer) 2022 Pneumococcal Conjugate Vacc, 13 Valent (Prevnar) 01/21/2016 Pneumococcal Conjugate Vacci ne, 20-valent ([id number]) 07/19/2023 Pneumococcal Polysaccharide PPV23 (Pneumovax) 01/13/2011 RSV [...] Care Team (Late st Contact Info) Description 09/04/2024 11:00 AM EDT Hem/Onc Treatment Hematology/Oncology Treatment, [address] [address] [facility], Chair5 Hem Onc [address] [place] [address] 09/05/2024 10:00 AM EDT Office Visit Radiation Oncology, [address] [address] Mansoor Watson MD [address] [place] [phone] 09/05/2024 11:00 AM EDT Documentation Radiation Oncology, [address] [address] Mansoor Watson MD [address] [place] [phone] [facility], [address] Rad Onc [address] [place] [address] 09/15/2024 2:30 PM EST Office Visit Otolaryngology/Head & Neck/Facial Plastic Surgery [address] [place] [address] Lexie Aldridge MD [address] [place] [address] 09/15/2024 3:45 PM EST Office Visit Dental Medicine, [place] [address] [place] [address] Russel Caceres, JESSICA [address] [place] [address] 10/09/2024 2:20 PM EST Office Visit [facility] [address] [place] [phone] David Antunez MD [address] [place] [address] 11/14/2024 1:15 PM EST Office Visit MOHS Surgery [facility] [address] [place] [address] Supriya Fernnades MD 200 [place] [address] 12/21/2024 1:30 PM EST Office Visit Dermatology, Melissa [address] [place] 27 [facility] [address] [place] [address] Malaika Guzman PA-C 27 [place] [address] 12/22/2024 12:00 PM EST Office Visit Nephrology, [address] [phone] Keisha Gunn MD [address] [place] [address] 01/22/2025 1:30 PM EDT PulmDiagnostic Pulmonary Function Lab [facility] [address] [facility] [place], [place] [address] [address], [address] Sonali Thang [place] [address] 01/22/2025 2:00 PM EDT Office Visit Pulmonary Medicine [facility] [address] [facility] [place] [phone] Dominguez Aguilar MD [address] [facility] [address] 02/05/2025 10:00 AM EDT Office Visit Rheumatology, [facility] 400 [place] [address] Rafael Hernandez PA-C 8420 [facility], [place] [address] 02/06/2025 1:30 PM EDT Office Visit Cardiology, [address] [place] [address] [place] PA-C 400 [place], [place] [phone] Scheduled Procedures Name Priority Associated Diagnoses Date/Ti me COLONOSCOPY FLEXIBLE PROXIMA L DIAGNOSTIC Recall Diverticulosis of sigmoid colon Health Maintenance Due Date Last Done Comments Adult Wellness Visit 03/14/2020 03/14/2019 COVID-19 Vaccine ( season) 2024 2023, 10/25/2023, 10/25/2023, Additional history exists Influenza Vaccine (FLU shot) (#1) 2024 08/30/2023, 09/23/2022, 09/01/2021, Additional history exists Diabetic Eye Exam 07/19/2024 [...] Vaccine: 65+ Years Completed 07/19/2023, 01/21/2016, 01/13/2011 HPV (Gardasil) Vaccine Aged Out No lo nger eligible based on patient's age to complete this topic Hepatitis B Vaccine Aged Out No longe r eligible based on patient's age to complete this topic MENINGOCOCCAL (MENACTRA/MENVEO) Aged Out No longer eligible based on patient's age to complete this topic documented as of this encounter Medical Devices Implanted Type Area Filter Changer Device Identifier Shelf Expiration Date Model / Serial / Lot Mesh Perfix Plug Lg [id number] - [id number] Implanted:Qty : 1 on 02/07/2019 by Jonathan Correia DO at OR [facility] Right: Groin CR BARD : DAVOL 09/04/2023 [id number] / / [id number] Cytal Wndmtx 1lyr [id number](150 Units) - [id number] - [id number] Implanted:Qty : 1 on 08/10/2024 by Lexie Aldridge MD at [place] [facility] [place] [facility] Left: Leg Upper [employer] [id number] 10/07/2025 [id number] / [id number] / [id number] Cytal Wndmtx 1lyr 7x10cm (70 Units) - [id number] - [id number] Implanted:Qty : 1 on 08/10/2024 by Lexie Aldridge MD at OR [facility] Left: Leg Upper [employer] [id number] 01/05/2026 [id number] / [id number] / [id number] documented as of this encounter Advance Directives Documents on File Type Date Recorded 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
--- OUTSIDE RECORDS SUMMARY | 2024-09-30 18:07 | External Medical Summary | Summary of Care ---
Author Name Unknown Organization [facility] Address [address] [place] [place] [address] Phone [phone] Care Team Providers Care Head Girls Golf Coach Name Role Phone Dat Ashton MD Primary Care Provider [phone] Reason for Visit * Reason Comments Medication Refill Encounter Details Date Type Department Care Team (Late st Contact Info) Description 09/02/2024 Refill [facility] 21 [facility] [address] Dat Ashton MD 21 [place] [address] Dyslipidemia, goal LDL below 70 Allergies Active Allergy Reactions Criticality Noted Date [...] Release (PriLOSEC)Indicati ons:Gastroesophage al reflux disease without esophagitis,assisted (current) use of [...] in the morning. 30 Tablet 4 Active Atorvastatin Calcium 20 MG Oral Tablet (Lipitor)Indicatio ns:Dyslipidemia, goal LDL below 70 Take 1 Tablet by mouth at bedtime. 90 Tablet 1 4 Active Atorvastatin Calcium 20 MG Oral Tablet (Lipitor)Indicatio ns:Dyslipidemia, goal LDL below 70 Take 1 Tablet by mouth at bedtime. 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) 0 03/09/2018 Overview: MRI 02/23 linux consultant (current) use 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 08/03/2023 08/03/2023 Atherosclerosis of [place] co ronary artery without angina pectoris 02/01/2023 [...] mRNA, LNP-s, No Pre serve, 2-Dose Series (zulily) 08/15/2021,01/31/2021,01/03/2021 COVID-19, LNP-s, No Preserve , Ruslan-sucrose, Ages 12+ (zulily) 03/19/2022 COVID-19, MRNA-LNP, 23-24, P F, 30 MCG/0.3 mL, 12 YRS AND ABOVE, IM ([facility]) 10/25/2023 Covid-19, Mrna, Lnp-s, Pf, B ivalent, 30 Mcg, IM, 12 yrs and above (Pfizer) 2022 Pneumococcal Conjugate Vacc, 13 Valent (Prevnar) 01/21/2016 Pneumococcal Conjugate Vacci ne, 20-valent ([id number]) 07/19/2023 Pneumococcal Polysaccharide PPV23 (Pneumovax) 01/13/2011 RSV [...] (15 years old or older) No 08/11/20 24 Cognitive Status Response Date of Assessm ent Because of a physical, menta l, or emotional condition, do you have serious difficulty concentrating, remembering, or making decisions? (5 years old or older) No 08/11/2024 documented as of this encounter Miscellaneous Notes * Telephone Encounter - Nagi Castillo [facility] - 09/04/2024 11:27 AM EDT Signed Prescriptions: Disp Refills Atorvastatin Calcium 20 MG Oral Tablet (Li*90 Tab*1 Sig: Take 1 Tablet by mouth at bedtime.Authorizing Provider: DAT ASHTON User: NAGI CASTILLO LLIAM documented in this encounter Plan of Treatment Upcoming Encounters Date Type Department Care Team (Late st Contact Info) Description 09/05/2024 10:00 AM EDT Office Visit Radiation Oncology, [address] [address] Mansoor Watson MD [address] [place] [address] 09/05/2024 11:00 AM EDT Documentation Radiation Oncology, [address] [address] Mansoor Watson MD [address] [place] [address] [facility], [address] Rad Onc [address] [place] [address] 09/15/2024 2:30 PM EST Office Visit Otolaryngology/Head & Neck/Facial Plastic Surgery [address] [place] [address] Lexie Aldridge MD [address] [place] [address] 09/15/2024 3:45 PM EST Office Visit Dental Medicine, [place] [address] [place] [address] Russel Caceres DMD [address] [place], [place] [phone] 10/09/2024 2:20 PM EST Office Visit [facility] 21 [place] [phone] David Antunez MD 21 [place] [address] 11/14/2024 1:15 PM EST Office Visit MOHS Surgery [facility] 200 [place] [address] Supriya Fernandes MD 200 [place] [address] 12/21/2024 1:30 PM EST Office Visit Dermatology, Melissa [address]ir [place] 27 [facility] 140 [place] [phone] Malaika Guzman PA-C [facility] [place] [phone] 12/22/2024 12:00 PM EST Office Visit Nephrology, [address] [phone] Keisha Gunn MD [address] [place] [address] 01/22/2025 1:30 PM EDT PulmDiagnostic Pulmonary Function Lab [facility] [address] [facility] [place] [address] [address], [address] Sonali Thang [place] [address] 01/22/2025 2:00 PM EDT Office Visit Pulmonary Medicine [facility] [address] [facility] [place] [phone] Dominguez Aguilar MD [address] [facility] [place] [address] 02/05/2025 10:00 AM EDT Office Visit Rheumatology, [facility] 400 [facility] [address] Rafael Hernandez PA-C [address] [place] [address], [place] [address] 02/06/2025 1:30 PM EDT Office Visit Cardiology, [address] [address] [place] PA-C 400 [facility] [address] Scheduled Procedures Name Priority Associated Diagnoses Date/Ti [...] this encounter Medical Devices Implanted Type Area Strategy Manager Device Identifier Shelf Expiration Date Model / Serial / Lot Mesh Perfix Plug Lg [id number] - [id number] Implanted:Qty : 1 on 02/07/2019 by Jonathan Correia DO at OR [facility] Right: Lelo KEBEDE BARD : DAVOL 09/04/2023 [id number] / / [id number] Cytal Wndmtx 1lyr [id number](150 Units) - [id number] - [id number] Implanted:Qty : 1 on 08/10/2024 by Lexie Aldridge MD at [place] [facility] [facility] Left: Leg Upper [employer] [id number] 10/07/2025 [id number] / [id number] / [id number] Cytal Wndmtx 1lyr 7x10cm (70 Units) - [id number] - [id number] Implanted:Qty : 1 on 08/10/2024 by Lexie Aldridge MD at OR [facility] Left: Leg Upper [employer] [id number] 01/05/2026 [id number] / [id number] / [id number] documented as of this encounter Visit Diagnoses Diagnosis Dyslipidemia, goal LDL below 70 Other and unspecified hyperlipidemia documented in this encounter Advance Directives Documents on File Type Date Recorded Patient Mountain Bike Guide Expl anation Advance Directives and Living Will [...] [place] Adult Child Emergency Contact Care Teams Head Girls Golf Coach Relationship Specialty Start Date End Date Dat Ashton MD [address] [place] [phone] PCP - General Family Medicine 01/30/22 documented as of this encounter
--- OUTSIDE RECORDS SUMMARY | 2024-09-30 18:07 | External Medical Summary | Summary of Care ---
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; S/P flap graft; S/P split thickness skin graft Allergies Active Allergy Reactions Criticality Noted Date Comments Aztreonam Hives Medium 10/11/2019 Cephalosporins Rash 05/24/2017 Tolerated cefazolin during August 2024 admission Chlorhexidine Hives,Rash High 01/02/2022 Full body red rash; "skin peeled completely off" Ciprofloxacin Diarrhea Medium 01/28/2015 Iodinated Contrast Media Abdominal pain High 019 Acute kidney failure Levofloxacin Rash Low 07/28/2019 documented as of this encounter (statuses as of 09/03/2024) Medications Medication Sig Dispensed Refills Start Date End Date Status PredniSONE (DELTASONE) 20 MG TabletIndications:C ontact dermatitis Take 2 Tabs by mouth daily for 5 days. 10 Tab 0 5 Active PredniSONE (DELTASONE) 20 MG TabletIndications:D ysphagia, unspecified type,Acute pharyngitis, unspecified etiology,Ptosis of left eyelid Take 2 Tabs by mouth daily for 7 days. 14 Tab 8 Active predniSONE 20 MG Oral Tablet (Deltasone)Indicati ons:COPD with acute exacerbation (HCC) Take by mouth 2 Tablets in the morning for 5 days. 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 30 minutes before a meal. 30 Capsule 2 Active Atorvastatin Calcium 20 MG Oral Tablet (Lipitor)Indication s:Dyslipidemia, goal LDL below 70 Take 1 Tablet by mouth at bedtime. 90 Tablet 3 3 Active Metoprolol Succinate ER 25 MG Oral Tablet Extended Release 24 Hour (Toprol XL) Take 1 Tablet by mouth in the morning. 15 Tablet 3 Active Testosterone Cypionate 100 MG/ML Intramuscular Solution inject 0.75 milliliter intramuscularly every 7 days 3 Active Umeclidinium-Vilant claudia 62.5-25 MCG/ACT Inhalation Aerosol Powder Breath Activated (ANORO ellipta)Indications :COPD, moderate (HCC) Inhale 1 Puff by mouth in the morning. 180 Each 3 4 Active Furosemide 20 MG Oral Tablet (Lasix)Indications: Bilateral lower extremity edema Take 1 Tablet by mouth daily as needed (lower extremity edema). 30 Tablet 11 4 Active Sodium Bicarbonate 650 MG Oral Tablet Take 1 Tablet by mouth in the morning and 1 Tablet before bedtime. 180 Tablet 3 4 Active predniSONE 5 MG Oral Tablet (Deltasone)Indicati ons:Erythema nodosum Take 1.5 Tablets by mouth in the morning. 135 Tablet 4 4 Active Calcitriol 0.25 MCG Oral Capsule (Rocaltrol)Indicati [...] group C, by GOLD 2017 classification ([facility]) Inhale 1 Vial via nebulizer every 4 [...] 4 Active Folic Acid 1 MG Oral TabletIndications:S CC (squamous cell carcinoma) Take 1 Tablet by mouth in the morning. 30 Tablet 4 Active Vitamin B-12 1000 MCG Oral Tablet (Cyanocobalamin)Ind ications:SCC (squamous cell carcinoma) Take 1 Tablet by mouth in the morning. 30 Tablet Active Doxycycline Monohydrate 100 MG Oral CapsuleIndications: Squamous cell carcinoma of neck Take 1 Capsule by mouth in the morning and 1 Capsule before bedtime. Do all this for 7 days. 14 Capsule 4 09/01/20 Hospital, Clinic, or Other Facility Administered Medication Ordered Dose Route Frequency Start Date End Date Status oxygen GASIndications:Iron deficiency anemia, unspecified iron deficiency anemia type IN OXYGEN 08/28/2024 Active documented as of this encounter (statuses as of 09/03/2024) Active Problems Problem Noted Date Diagnosed Date [...] from 2018 Atherosclerotic heart diseas e of [place] coronary artery without angina pectoris 05/31/2020 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) 0 03/09/2018 Overview: MRI 02/23 senior care (current) use of [...] as of this encounter (statuses as of 09/03/2024) Resolved Problems Problem Noted Date Diagnosed Date [...] chronic kidney disease 08/03/2023 08/03/2023 Atherosclerosis of [place] co ronary artery without angina pectoris 02/01/2023 [...] Cachexia 08/30/2019 05/31/2020 Hypertensive heart disease w [facility] heart failure and stage 5 chronic kidney [...] PL and AMP Hypertensive heart disease w [facility] heart failure and stage 3 chronic kidney [...] as of this encounter (statuses as of 09/03/2024) Immunizations Name Administration Dates Next Due COVID-19 mRNA, LNP-s, No Pre serve, 2-Dose Series ([employer]) 08/15/2021,01/31/2021,01/03/2021 COVID-19, LNP-s, No Preserve , Ruslan-sucrose, Ages 12+ ([employer]) 03/19/2022 COVID-19, MRNA-LNP, 23-24, P F, 30 MCG/0.3 mL, 12 YRS AND ABOVE, IM ([facility]) 10/25/2023 Covid-19, Mrna, Lnp-s, Pf, B ivalent, 30 Mcg, IM, 12 yrs and above ([employer]) 2022 Pneumococcal Conjugate Vacc, 13 Valent (Prevnar) 01/21/2016 Pneumococcal Conjugate Vacci ne, 20-valent ([id number]) 07/19/2023 Pneumococcal Polysaccharide PPV23 (Pneumovax) 01/13/2011 RSV [...] Sign Reading Time Taken Comments Blood Pressure - - Pulse - - Temperature 36.6 C (97.9 F) 09/01/2024 10:49 AM E DT Respiratory Rate - - Oxygen Saturation - - Inhaled Oxygen Concentration [...] as of this encounter Progress Notes * Yifan Perez MD - 09/01/2024 11:10 AM EDT Otolaryngology - Head & Neck Surgery 09/01/2024 Diagnosis: 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 Skin and soft tissue, [...] One lymph node, negative for carcinoma (0/1) Interval History: Kennedy Davis is a 78 year old man with left neck cutaneous SCCa s/p wide local excision, left neck dissection, and reconstruction with left pectoralis major flap and split thickness skin graft on 08/10/24. Postoperative course complicated by pec flap hematoma x2 and anemia. Doing well since discharge. Past Medical, Surgical, and Social History: Reviewed. 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 Medications and Allergies: Reviewed. Review of Systems: Negative except as documented in HPI, PMH, and problem list. Physical Examination: Temp 36.6 C (97.9 F) (Infrared ) Left neck pec flap and split thickness skin graft healing well, crusting debrided Left pec flap harvest site flat, c/d/i Left leg split thickness skin graft harvest site healing well Dressing replaced today - mupirocin, xeroform, telfa, and tegaderm Assessment: Doing well postoperatively Plan CBC today Follow up in 2 weeks matched with dental appointment Patient seen and examined with Dr. Aldridge. Yifan Perez MD Otolaryngology - Head & Neck Surgery Healing well. RTC 2 weeks to match with dental appointment. I have discussed the patient's management with the resident/fellow physician and agree with the note. Please refer to the documented findings and plan of care. This patient's visit today consisted ofan evaluation. I was present and confirmed the findings of the history and exam. Lexie Aldridge MD documented in this encounter Plan of Treatment Upcoming Encounters Date Type Department Care Team (Late st Contact Info) Description 09/04/2024 11:00 AM EDT Hem/Onc Treatment Hematology/Oncology [address], [address] [address] [facility], Chair5 Hem Onc [address] [place] [address] 09/05/2024 10:00 AM EDT Office Visit Radiation Oncology, [facility] [address] [facility] [address] Mansoor Watson MD [address] [facility] [phone] 09/05/2024 11:00 AM EDT Documentation Radiation Oncology, [facility] [phone] IovolMansoor mills MD [address] [place] [address] [facility], [address] Rad Onc [address] [place], [place] [phone] 09/15/2024 2:30 PM EST Office Visit Otolaryngology/Head & Neck/Facial Plastic Surgery [address] [place] [address] Lexie Aldridge MD [address] [place], [place] [phone] 09/15/2024 3:45 PM EST Office Visit Dental Medicine, [place] [address] [place], [place] [phone] Russel Caceres, [facility] [address] [place], [place] [phone] 10/09/2024 2:20 PM EST Office Visit Family [facility], [place] [address] [place] [address] David Antunez MD 21 [facility] [place] [address] 11/14/2024 1:15 PM EST Office Visit MOHS Surgery [facility] [address] [place] [address] Supriya Fernandes MD [address] [place] [address] 12/21/2024 1:30 PM EST Office Visit Dermatology, Ahmet Rowell [address] [facility] [address] [place], [place] [phone] Malaika Guzman PA-C [address] [place] [phone] 12/22/2024 12:00 PM EST Office Visit Nephrology, [address] [address] Keisha Gunn MD [address] [place] [address] 01/22/2025 1:30 PM EDT PulmDiagnostic Pulmonary Function Lab [facility] [address] [facility] [place] [address] [address], [address] [place] [address] 01/22/2025 2:00 PM EDT Office Visit Pulmonary Medicine [facility] [address] [facility] [place] [phone] Dominguez Aguilar MD [address] [place] [facility] [place] [address] 02/05/2025 10:00 AM EDT Office Visit Rheumatology, [address] [address] Rafael Hernandez, PAJackiC [address]10 [place] [address] 02/06/2025 1:30 PM EDT Office Visit Cardiology, [address] [address] Cherry Warner PA-C [address] [place] [address] [place] [address] Scheduled Procedures Name Priority Associated Diagnoses Date/Ti [...] encounter Medical Devices Implanted Type Area Assistant Professor Of Anthropology Device Identifier Shelf Expiration Date Model / Serial / Lot Mesh Perfix Plug Lg [id number] - [id number] Implanted:Qty : 1 on 02/07/2019 by Jonathan Correia DO at OR [facility] Right: Groin CR BARD : DAVOL 09/04/2023 [id number] / / [id number] Cytal Wndmtx 1lyr [id number](150 Units) - [id number] - [id number] Implanted:Qty : 1 on 08/10/2024 by Lexie Aldridge MD at OR [facility] Left: Leg Upper [employer] [id number] 10/07/2025 [id number] / [id number] / [id number] Cytal Wndmtx 1lyr 7x10cm (70 Units) - [id number] - [id number] Implanted:Qty : 1 on 08/10/2024 by Lexie Aldridge MD at OR [facility] Left: Leg Upper [employer] [id number] 01/05/2026 [id number] / [id number] / [id number] documented as of this encounter Visit Diagnoses Diagnosis SCC (squamous cell carcinoma)- Primary Squamous cell carcinoma of skin, site unspecified 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
--- OUTSIDE RECORDS SUMMARY | 2024-09-30 18:07 | External Medical Summary | Summary of Care ---
Author Name Unknown Organization [facility] Address [address] [place] [address] Phone [phone] Care Team Providers Care Interior Design Teacher Name Role Phone Fuentes Ashton MD Primary Care Provider [phone] Reason for Visit * Reason Comments Treatment Infed Encounter Details Date Type Department Care Team (Latest Contact Info) Description 09/04/2024 11:00 AM EDT Hem/Onc Treatment Hematology/Oncology Treatment, [address] [address] [facility], Chair5 Hem Onc [address] [place] [phone] Iron deficiency anemia, unspecified iron deficiency anemia [...] End Date Status PredniSONE (DELTASONE) 20 MG TabletIndications: Contact dermatitis Take 2 Tabs by mouth daily for 5 days. 10 Tab 0 5 Active PredniSONE (DELTASONE) 20 MG TabletIndications: Dysphagia, unspecified type,Acute pharyngitis, unspecified etiology,Ptosis of left eyelid Take 2 Tabs by mouth daily for 7 days. 14 Tab 8 Active predniSONE 20 MG Oral Tablet (Deltasone)Indicat ions:COPD with acute exacerbation (HCC) Take by mouth 2 Tablets in the morning for 5 days. 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 08/03/2023 08/03/2023 Atherosclerosis of [place] co ronary artery without angina pectoris 02/01/2023 [...] mRNA, LNP-s, No Pre serve, 2-Dose Series ([employer]) 08/15/2021,01/31/2021,01/03/2021 COVID-19, LNP-s, No Preserve , Ruslan-sucrose, Ages 12+ (Pfizer) 03/19/2022 COVID-19, MRNA-LNP, 23-24, P F, 30 MCG/0.3 mL, 12 YRS AND ABOVE, IM (P[employer]ER-[employer]ir[employer]) 10/25/2023 Covid-19, Mrna, Lnp-s, Pf, B ivalent, 30 Mcg, IM, 12 yrs and above (Pfizer) 2022 Pneumococcal Conjugate Vacc, 13 Valent (Prevnar) 01/21/2016 Pneumococcal Conjugate Vacci ne, 20-valent ([id number]) 07/19/2023 Pneumococcal Polysaccharide PPV23 (Pneumovax) 01/13/2011 RSV [...] of this encounter Nursing Notes * Leda Ferguson, CESAR - 09/04/2024 1:04 PM EDT Patient left [...] potential sheikh while using the heat function. [facility] Nursing Care Plan ID is not set. [...] free of injury while in clinic. Mallika Witt, RN documented in this encounter Plan of Treatment Upcoming Encounters Date Type Department Care Team (Late st Contact Info) Description 09/05/2024 10:00 AM EDT Office Visit Radiation Oncology, [address] [address] Mansoor Watson MD [address] [place] [phone] 09/05/2024 11:00 AM EDT Documentation Radiation Oncology, [address] [address] Mansoor Watson MD [address] [place] [phone] [facility], [address] Rad Onc [address] [place] [address] 09/15/2024 2:30 PM EST Office Visit Otolaryngology/Head & Neck/Facial Plastic Surgery [address] [place] [address] Lexie Aldridge MD [address] [place] [address] 09/15/2024 3:45 PM EST Office Visit Dental Medicine, [place] [address] [place] [address] Russel Caceres, [facility] [address] [facility] [address] 10/09/2024 2:20 PM EST Office Visit Family [facility], [place] [address] [facility] [place] [phone] David Antunez MD 21 [place] [address] 11/14/2024 1:15 PM EST Office Visit MOHS Surgery [facility] [address] [place] [address] Supriya Fernandes MD 200 [place] [address] 12/21/2024 1:30 PM EST [facility] 27 [facility] [place] [address] [place] [address] Malaika Guzman PA-C 27 [place] [address] 12/22/2024 12:00 PM EST Office Visit Nephrology, [address] [place] [address] Keisha Gunn MD [address] [place] [address] [place] [address] 01/22/2025 1:30 PM EDT PulmDiagnostic Pulmonary Function Lab [facility] [address] [facility] [place] [address] [address], [address] [place] [address] 01/22/2025 2:00 PM EDT Office Visit Pulmonary Medicine [facility] [address] [place] [phone] Dominguez Aguilar MD [address] [facility] [place] [address] 02/05/2025 10:00 AM EDT Office Visit Rheumatology, [facility] 400 [place] [address] Rafael Hernandez, PAJackiC [address] [place] [address] 02/06/2025 1:30 PM EDT Office Visit Cardiology, [place] [address] [place] [address] Cherry Warner PA-C [address] [place] [address] Scheduled Procedures Name Priority Associated Diagnoses Date/Ti [...] this encounter Medical Devices Implanted Type Area Production Control Analyst Device Identifier Shelf Expiration Date Model / Serial / Lot Mesh Perfix Plug Lg [id number] - [id number] Implanted:Qty : 1 on 02/07/2019 by Jonathan Correia DO at [facility] Right: Groin CR BARD : DAVOL 09/04/2023 [id number] / / [id number] Cytal Wndmtx 1lyr [id number](150 Units) - [id number] - [id number] Implanted:Qty : 1 on 08/10/2024 by Lexie Aldridge MD at [facility] Left: Leg Upper [employer] [id number] 10/07/2025 [id number] / [id number] / [id number] Cytal Wndmtx 1lyr 7x10cm (70 Units) - [id number] - [id number] Implanted:Qty : 1 on 08/10/2024 by Lexie Aldridge MD at [facility] Left: Leg Upper ANDREA CUMMINGS [id number] 01/05/2026 [id number] / [id number] / [id number] documented as of this encounter Visit Diagnoses Diagnosis Iron deficiency anemia, unspecified iron deficiency anemia type- Primary documented in this encounter Administered Medications Active Administered Medications - up to 3 most recent administrations Medication Order MAR Action Action Date Dose Rate Site EPINEPHrine 1 MG/ML inj 0.3 mg 0.3 mg, Intramuscular, ONCE PRN Other, Hypersensitivity Reaction or Anaphylaxis, Starting on Wed09/04/24 at 1057, Until Wed09/05/24 at 1056, For 24 hours Famotidine (Pepcid) inj 20 mg 20 mg, IV Push, ONCE PRN Other, Hypersensitivity Reaction, Starting on Wed09/04/24 at 1057, Until Wed09/05/24 at 1056, For 24 hours, Give IV push over 2 minutes. hEParin 100 UNIT/ML Lock Flush inj 500 Units 500 Units (5 mL), IV Lock, PRN Other, IV Flush, Starting on Wed09/04/24 at 1057, Until Wed09/05/24 at 1056, For 24 hours, Do not flush if lock, PICC, or central line not in place; IV infusing or unable to flush. Hydrocortisone Sod Suc (PF) (Solu-Cortef) inj 100 mg 100 mg, IV Push, ONCE PRN Other, Hypersensitivity Reaction, Starting on Wed09/04/24 at 1057, Until Wed09/05/24 at 1056, For 24 hours NSS infusion Intravenous, at 50 mL/hr, PRN, Starting on Wed09/04/24 at 1200, Until Discontinued, Maintenance line Start Infusion 09/04/2024 11:06 AM EDT 50 mL/hr oxygen GAS Inhalation, OXYGEN, First dose on Wed09/04/24 at 1130, Until Discontinued, Device/Managed by: Low Flow Device, Goal SPO2 (%): 91-95, Starting Device: Nasal Cannula, Initial Flow Rate (LPM): 2, Lowest Support: Nasal Cannula: Flow 0-6 LPM. Titrate up/down by 1 LPM., Higher Support: Non-Rebreather (NRB) Mask: Minimum of 10 LPM. Titrate to maintain bag inflation., Titration Interval: Q2 minutes and as needed., Notify Provider: For sudden DECREASE in resting SPO2 to less than 85% and when escalating delivery device., Wean patient off Oxygen when the oxygen saturation is greater than or equal to 93% sodium chloride 0.9 % flush central line 10 mL 10 mL, IV Push, PRN Other, IV Flush, Starting on Wed09/04/24 at 1057, Until Wed09/05/24 at 1056, For 24 hours, Do not flush if lock, PICC, or central line not in place; IV infusing or unable to flush. 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
--- OUTSIDE RECORDS SUMMARY | 2024-09-30 18:08 | External Medical Summary | Summary of Care ---
Author Name Unknown Organization [facility] Address [address] [facility] [place] [address] Phone [phone] Care Team Providers Care Billposter Name Role Phone Fuentes Ashton MD Primary Care Provider [phone] Encounter Details Date Type Department Care Team (Late st Contact Info) Description 09/01/2024 Orders Only [facility] [address] [facility] [place] [address] Devan Garcia MD [address] [facility] [place] [address] Allergies Active Allergy Reactions Criticality Noted Date Comments Aztreonam Hives Medium 10/11/2019 Cephalosporins Rash 05/24/2017 Tolerated cefazolin during August 2024 admission Chlorhexidine Hives,Rash High 01/02/2022 Full body red rash; "skin peeled completely off" Ciprofloxacin Diarrhea Medium 01/28/2015 Iodinated Contrast Media Abdominal pain High 019 Acute kidney failure Levofloxacin Rash Low 07/28/2019 documented as of this encounter (statuses as of 09/01/2024) Medications Medication Sig Dispensed Refills Start Date [...] Delayed Release (PriLOSEC)Indicatio ns:Gastroesophageal reflux disease without esophagitis,zinc skimmer (current) use 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 Take by [...] Inhalation Aerosol Powder Breath ActivatedIndication s:COPD, moderate ([facility]) Inhale 2 Puffs by mouth every 4 hours as needed for Shortness of Breath. 1 Each 11 07/06/2024 Active Additional Information Patient not taking.Reported on 08/25/2024 Albuterol Sulfate (2.5 MG/3ML) 0.083% Inhalation Nebulization Solution (Proventil)Indicati ons:COPD, group C, by GOLD 2017 classification ([facility] [...] three times daily 396 g 08/22/2024 Active Doxycycline Monohydrate 100 MG Oral CapsuleIndications: Squamous cell carcinoma of neck Take 1 Capsule by mouth in the morning and 1 Capsule before bedtime. Do all this for 7 days. 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 05/31/2020 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) 0 03/09/2018 Overview: MRI 02/23 zinc skimmer (current) use 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 Steroid-induced diabetes [...] as of this encounter (statuses as of 09/01/2024) Resolved Problems Problem Noted Date Diagnosed Date [...] chronic kidney disease 08/03/2023 08/03/2023 Atherosclerosis of jackson co ronary artery without angina pectoris 02/01/2023 [...] as of this encounter (statuses as of 09/01/2024) Immunizations Name Administration Dates Next Due COVID-19 mRNA, LNP-s, No Pre serve, 2-Dose Series (Nemedia) 08/15/2021,01/31/2021,01/03/2021 COVID-19, LNP-s, No Preserve , Ruslan-sucrose, Ages 12+ (Pfizer) 03/19/2022 COVID-19, MRNA-LNP, 23-24, P F, 30 MCG/0.3 mL, 12 YRS AND ABOVE, IM ([facility]) 10/25/2023 Covid-19, Mrna, Lnp-s, Pf, B ivalent, 30 Mcg, IM, 12 yrs and above (Pfizer) 2022 Pneumococcal Conjugate Vacc, 13 Valent (Prevnar) 01/21/2016 Pneumococcal Conjugate Vacci ne, 20-valent (Juheoke90) 07/19/2023 Pneumococcal Polysaccharide PPV23 (Pneumovax) 01/13/2011 RSV [...] 11:00 AM EDT Hem/Onc Treatment Hematology/[address] [address] [facility], Chair5 Hem Onc [address] [place], [place] [address] [address] 09/05/2024 10:00 AM EDT Office Visit Radiation Oncology, [address] [address] Mansoor Watson [facility] [address] [facility] [phone] 09/05/2024 11:00 AM EDT Documentation Radiation Oncology, [address] [address] Mansoor Watson MD [address] [facility] [phone] [facility], [address] Rad Onc [address] [place] [address] 09/15/2024 2:30 PM EST Office Visit Otolaryngology/Head & Neck/Facial Plastic Surgery [address] [place] [address] Lexie Aldridge MD [address] [place], [place] [phone] 09/15/2024 3:45 PM EST Office Visit Dental Medicine, [place] [address] [place], [place] [phone] Russel Caceres DMD [address] [place], [place] [phone] 10/09/2024 2:20 PM EST Office Visit Family Practice, [place] [address] [facility] [place] [phone] David Antunez MD 21 [place] [address] 11/14/2024 1:15 PM EST Office Visit [facility] [address] [place] [address] Supriya Fernandes MD [address] [place] [address] 12/21/2024 1:30 PM EST Office Visit Dermatology, [address] [place] [address] [place] [address] Malaika Guzman PA-C [address] [place] [phone] 12/22/2024 12:00 PM EST Office Visit Nephrology, [address] [address] Keisha Gunn MD [address] [place] [address] 01/22/2025 1:30 PM EDT PulmDiagnostic Pulmonary Function Lab [facility] [address] [facility] [place] [address] [place] [place], [place] [address] 01/22/2025 2:00 PM EDT Office Visit Pulmonary Medicine [facility] [address] [facility] [place] [phone] Dominguez Aguilar MD [address] [facility] [address] 02/05/2025 10:00 AM EDT Office Visit Rheumatology, [address] [address] Rafael Hernandez PA-C [address] [place] [address] 02/06/2025 1:30 PM EDT Office Visit Cardiology, [address] [place] [address] Cherry Warner PA-C [address] [place] [address] [phone] Scheduled Procedures Name Priority Associated Diagnoses Date/Ti [...] this encounter Medical Devices Implanted Type Area Internal Affairs Commander Device Identifier Shelf Expiration Date Model / Serial / Lot Mesh Perfix Plug Lg [id number] - [id number] Implanted:Qty : 1 on 02/07/2019 by Jonathan Correia DO at OR [facility] Right: Lelo CR BARD : DAVOL 09/04/2023 [id number] / / [id number] Cytal Wndmtx 1lyr [id number](150 Units) - [id number] - [id number] Implanted:Qty : 1 on 08/10/2024 by Lexie Aldridge MD at [facility] Left: Leg Upper [employer] [id number] 10/07/2025 [id number] / [id number] / [id number] Cytal Wndmtx 1lyr 7x10cm (70 Units) - [id number] - [id number] Implanted:Qty : 1 on 08/10/2024 by Lexie Aldridge MD at [facility] Left: Leg Upper [employer] [id number] 01/05/2026 [id number] / [id number] / [id number] documented as of this encounter Advance Directives Documents on File Type Date Recorded Patient Patch Sander Expl anation Advance Directives and Living Will [...] verbally by patient or by statute hierarchy) [facility] Adult Child Emergency Contact Care Teams Billposter Relationship Specialty Start Date End Date Fuentes Ashton MD [address] [place] [phone] PCP - General Family Medicine 01/30/22 documented as of this encounter
--- OUTSIDE RECORDS SUMMARY | 2024-09-30 18:08 | External Medical Summary | Summary of Care ---
Author Name Unknown Organization [facility] Address [address] [place] [address] Phone [phone] Care Team Providers Care Linseed Cake Trimmer Name Role Phone Fuentes Ashton MD Primary Care Provider [phone] Reason for Visit * Reason Comments Follow Up * Evaluate & Treat - Unlimited Visits (Within 3 days (urgent)) - Pending Review Specialty Diagnoses / Procedures Referred By Ayanna rios Referred To Contact Orthopaedic Surgery / Orthopedics Diagnoses Acute pain of left shoulder Injury of left shoulder, initial encounter Alvino Mendez PA-C [address] [place] [id number] Referral ID Status Reason Start Date Expiration Date Visits Requested Visits Authorized [id number] Pending Review Specialty Services Required [phone] Encounter Details Date Type Department Care Team (Late st Contact Info) Description 08/31/2024 11:20 AM EDT Office Visit Nephrology, [address] [address] Keisha Gunn MD [address] [place] [id number] Kidney disease, chronic, stage IV (GFR 15-29 ml/min) ([facility])*; HTN, goal below 140/90; Hyperuricemia Allergies Active Allergy Reactions Criticality Noted Date Comments Aztreonam Hives Medium 10/11/2019 Cephalosporins Rash 05/24/2017 Tolerated cefazolin during August 2024 admission Chlorhexidine Hives,Rash High 01/02/2022 Full body red rash; "skin peeled completely off" Ciprofloxacin Diarrhea Medium 01/28/2015 Iodinated Contrast Media Abdominal pain High 019 Acute kidney failure Levofloxacin Rash Low 07/28/2019 documented as of this encounter (statuses as of 08/31/2024) Medications Medication Sig Dispensed Refills Start Date [...] Delayed Release (PriLOSEC)Indicatio ns:Gastroesophageal reflux disease without esophagitis,alf (current) use of [...] ons:COPD, group C, by GOLD 2017 classification (HCC) Inhale 1 Vial via nebulizer every 4 hours as needed for Shortness of Breath or Wheezing. 360 mL 07/06/2024 Active Allopurinol 100 MG Oral Tablet [...] for 7 days. 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) use 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 Steroid-induced diabetes [...] as of this encounter (statuses as of 08/31/2024) Resolved Problems Problem Noted Date Diagnosed Date Resolved Date Acute respiratory failure with hypoxia 03/03/2024 03/03/2024 Fever 02/27/2024 03/03/2024 Acute gout of multiple sites 02/27/2024 03/03/2024 Type 2 diabetes mellitus without complication 02/07/2002/07/2024 Hospital discharge follow-up 09/20/2023 03/03/2024 Scrotal irritation 09/12/2023 Bilateral cellulitis of lower leg 09/12/2023 03/03/2024 Acute on chronic anemia 09/11/2023 0404/2024 Cellulitis 09/09/2023 03/03/2024 Encephalopathy acute 09/09/2023 023 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 08/03/2023 08/03/2023 Atherosclerosis of [employer] [place] [employer] [place] co ronary artery without angina pectoris 02/01/2023 [...] as of this encounter (statuses as of 08/31/2024) Immunizations Name Administration Dates Next Due COVID-19 mRNA, LNP-s, No Pre serve, 2-Dose Series ([employer]) 08/15/2021,01/31/2021,01/03/2021 COVID-19, LNP-s, No Preserve , Ruslan-sucrose, Ages 12+ ([employer]) 03/19/2022 COVID-19, MRNA-LNP, 23-24, P F, 30 MCG/0.3 mL, 12 YRS AND ABOVE, IM ([facility]) 10/25/2023 Covid-19, Mrna, Lnp-s, Pf, B ivalent, 30 Mcg, IM, 12 yrs and above ([employer]) 2022 Pneumococcal Conjugate Vacc, 13 Valent (Prevnar) 01/21/2016 Pneumococcal Conjugate Vacci ne, 20-valent ([id number]) 07/19/2023 Pneumococcal Polysaccharide PPV23 (Pneumovax) 01/13/2011 RSV [...] Sign Reading Time Taken Comments Blood Pressure 139/69 08/31/2024 11:19 AM EDT Pulse 57 08/31/2024 11:19 AM EDT Temperature - - Respiratory Rate - - Oxygen Saturation - - Inhaled Oxygen Concentration - - Weight 68.6 kg (151 lb 3.2 oz) 08/31/2024 11:19 AM EDT Height - - Body Mass Index 23.68 08/20/2024 6:02 AM EDT documented in this [...] as of this encounter Progress Notes * Keisha Gunn MD - 08/31/2024 11:17 AM EDT REASON FOR VISIT: CKD HPI: Kennedy Davis is a 78 year old male seen in follow-up. He has history of hypertension, hyperlipidemia, erythema nodosum and positive ANCA in the past. He has history of mediastinal lymphadenopathy. The EBUS in December 26 showed suspected sarcoidosis. Was admitted at [facility] with concern for pulmonary renal syndrome. Renal biopsy was suggestive of acute tubular necrosis and required dialysis x4 but the renal function improved and has not required dialysis since then. He also follows with Rheumatology. He has been getting recurrent infections in setting of immune suppression with prednisone. He has had several episodes of ATN in setting of infection. He required dialysis since July until September. He recovered renal function and dialysis was stopped. His dialysis catheter was removed on 10/24/2019. He had a broken rib. No history of trauma. He is getting Prolia. He was found to have high LH and gynecomastia. Patient was hospitalized on 12/16/2021 with sepsis due to multifocal pneumonia. He was intubated. He required CRRT for several days then recovered renal function. Patient had COVID in July 2023 was treated with dexamethasone. Last visit was March. Patient with recent removal of skin cancer from the left neck and skin graft from the left leg. Legs are swollen. No shortness of breath. No urinary symptoms. He is now takingLasix 20 mg daily. Recent labs reviewed and discussed. Past Medical History: Diagnosis Date Abdominal aortic aneurysm (AAA) without rupture ([facility]) 07/11/2015 09/01/16: 3.78cm - repeat 1 yr 01/27/16: US: 3.87cm AAA - repeat 6 months 07/11/15: sts he had an US in the past - will check records Acute pancreatitis 03/09/2018 LIZZ (acute kidney injury) ([facility]) 06/26/2018 Aspergillosis ([facility]) 07/17/2019 history of Aspergillosis on the note on 3.[address] and AMP ATN (acute tubular necrosis) ([facility]) Bilateral pneumonia 08/08/2019 Acute, resolved? 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 Community acquired pneumonia 05/30/2019 COPD (chronic obstructive pulmonary disease) ([facility]) Diet-controlled diabetes mellitus ([facility]) 03/03/2021 Encounter for long-term (current) use of medications 09/06/2018 Enteritis 10/09/2017 Erythema nodosum Esophageal reflux Heart failure with acute decompensation, type unknown ([facility]) 06/07/2019 Herpes zoster without mention of complication History of pneumonia 06/22/2018 B/l PNA 06/2018 Hyperkalemia 12/16/2021 Hypertensive heart disease with heart failure and stage 5 chronic kidney disease, not on chronic dialysis ([facility]) 08/22/2019 ckd 4 ? Hypoglycemia associated with type 2 diabetes mellitus ([facility]) 07/21/2019 Moderate protein-calorie malnutrition ([facility]) 01/06/2021 Protein-calorie malnutrition ([facility]) 06/23/2019 Pure hypercholesterolemia Sepsis ([facility]) acute Severe malnutrition ([facility]) 02/27/2018 Stage II pressure ulcer of left buttock ([facility]) 02/06/2022 Tinea cruris 09/28/2017 Unspecified essential hypertension Uveitis OS Review of Systems: General ROS: negative for - chills or fever Psychological ROS: negative for - mood swings ENT ROS: negative for - nasal congestion or nasal discharge Endocrine ROS: negative Respiratory ROS: no cough, shortness of breath, or wheezing Cardiovascular ROS: no chest pain or dyspnea on exertion Gastrointestinal ROS: no abdominal pain, change in bowel habits, or black or bloody stools Genito-Urinary ROS: no dysuria, trouble voiding, or hematuria Musculoskeletal ROS: negative for - muscle pain Neurological ROS: no TIA or stroke symptoms Dermatological ROS: negative for rash Family History Problem Relation Name Age of Onset No Past Hx Mother at 97 Heart attack Father 84 Other (unknown cause of ) Sister Linda 90 Osteoporosis Sister Emmanuelle Renal Hx Sister Emmanuelle Osteoporosis Sister Owendale Renal Hx Sister [place] Heart Disorder Brother Martin CAD started in his late 70's Diabetes Brother Martin Heart attack Brother Martin Diabetes Brother Kelly Other (PVD) Brother Kelly Mendoza vasc dz Gastro-intestinal disorder Brother Homero at 85 from liver cirrhosis - non-ETOH Cancer Brother Donnell in his late 70's from throat cancer Other (Other) Brother Michi at a couple of months from pneumonia Other (unknown cause of ) Brother Morales Social History Socioeconomic History Marital status: Spouse name: Karen Number of children: 4 Years of education: 10 Highest education level: Not on file Occupational History 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 30 Capsule 0 Atorvastatin Calcium 20 MG Oral Tablet (Lipitor) Take 1 Tablet by mouth at bedtime. 90 Tablet 3 Metoprolol Succinate ER 25 MG Oral Tablet [...] the morning. 30 Capsule 5 Albuterol Sulfate (2.5 MG/3ML) 0.083% Inhalation Nebulization [...] neck three times daily 396 g 0 Doxycycline Monohydrate 100 MG Oral Capsule Take 1 Capsule by mouth in the morning and 1 Capsule before bedtime. Do all this for 7 days. 14 Capsule 0 Zinc Oxide 40 % External Paste (Desitin) Apply to buttocks as needed. 57 g 0 Folic Acid 1 MG Oral Tablet Take 1 Tablet by mouth in the morning. 30 Tablet 0 Vitamin B-12 1000 MCG Oral Tablet (Cyanocobalamin) Take 1 Tablet by mouth in the morning. 30 Tablet0 PredniSONE (DELTASONE) 20 MG Tablet Take 2 Tabs by mouth daily for 5 days. 10 Tab 0 PredniSONE (DELTASONE) 20 MG Tablet Take 2 Tabs by mouth daily for 7 days. 14 Tab 0 predniSONE 20 MG Oral Tablet (Deltasone) Take by mouth 2 Tablets in the morning for 5 days. 10 Tablet 0 Albuterol Sulfate 108 (90 Base) MCG/ACT Inhalation Aerosol Powder Breath Activated Inhale 2 Puffs by mouth every 4 hours as needed for Shortness of Breath. (Patient not taking: Reported on 08/25/2024) 1 Each 11 Current Facility-Administered Medications Medication Dose Route Frequency Provider Last Rate Last Admin oxygen GAS Inhalation Oxygen Filed Vitals: 08/31/24 1119 BP: 139/69 Pulse: 57 Weight: 68.6 kg (151 lb 3.2 oz) PHYSICAL EXAM: GENERAL: Alert, in no acute distress. EYES: PERRL, conjunctivae anicteric. ENT: Mucous membranes moist, oropharynx clear. NECK: Left neck wound healing well LYMPH: No cervical or supraclavicular lymphadenopathy. LUNGS: Clear to auscultation bilaterally, no respiratory distress. CARDIAC: Regular rate and rhythm, normal S1/S2, no murmurs, rubs, or gallops. ABDOMEN: Soft, non-tender, non-distended, bowel sounds present. EXT/MSK: No clubbing, cyanosis, 1+ edema. SKIN: No rash, no jaundice. NEURO: No tremor, no asterixis. LABS/STUDIES: Recent Labs Units 08/21/24 0335 08/20/24 0412 08/17/24 0459 08/16/24 0326 SODIUM - [facility] mmol/L 137 139 137 135 POTASSIUM - [facility] mmol/L 4.9 4.6 4.8 4.1 CHLORIDE - [facility] mmol/L 107 111* 105 105 CO2 - [facility] mmol/L 19* 19* 18* 19* BUN - [facility] mg/dL 39* 37* 41* 48* CREATININE - [facility] mg/dL 3.3* 3.4* 3.3* 3.3* Recent Labs Units 08/22/24 1356 08/21/24 0335 08/20/24 0847 WBC K/uL 10.16 9.84 10.20 HGB g/dL 7.6* 6.9* 7.1* PLT K/uL 236 199 190 Recent Labs Units 08/22/24 0342 08/21/24 0335 08/20/24 0412 08/19/24 0746 08/18/24 0741 08/17/24 0459 08/16/24 0326 03/19/24 0548 03/18/24 1006 CALCIUM - [facility] mg/dL -- 8.5 8.2* -- -- 8.1* 7.8* < > -- PHOSPHORUS - [facility] mg/dL 3.8 4.0 3.3 2.7 < > 3.2 2.8 < > -- 25-HYDROXY VITAMIN D - [facility] ng/mL -- -- -- -- -- -- -- -- 40 < > = values in this interval not displayed. Recent Labs Units 01/31/24 0942 09/09/23 0420 05/18/23 1021 HEMOGLOBIN A1C - [facility] % 6.0* 6.3* 5.7* No results for input(s): "MICROALBUMIN", "PROCRRATIO" in the last 25508 hours. ASSESSMENT AND PLAN Kennedy was seen today for follow up. Diagnoses and all orders for this visit: Kidney disease, chronic, stage IV (GFR 15-29 ml/min) ([facility]) - NEPHROLOGY FOLLOW UP APPT (DEPARTMENT USE ONLY); Future Patient with the CKD stage 4 due to multiple episodes of acute kidney injury. Renal biopsy was consistent with acute tubular necrosis. Patient required dialysis between July 2019 to October 2019. He has since recovered renal function. Patient had acute kidney injury during hospitalization on 12/16/2021 and required CRRT but again recovered renal function. Recent creatinine of 3.3 which is higher than his prior baseline of 2.5. Electrolytes are stable with no signs of volume overload. He knows to avoid NSAIDs and maintain a low-sodium diet. I have asked him to wear compression stockings.We can conitnue lab checks every 3 months. Drink 45 oz of fluids daily Renal osteodystrophy He will continue calcium which also has vitamin-D daily. He also receives prolia from [facility]. HTN, goal below 140/90 Blood pressure is controlled on current regimen. No changes. Anemia in stage 4 chronic kidney disease ([facility]) Recent hemoglobin of 7.6 which is stable. No changes. Hyperuricemia Patient with a uric acid of 4.8. He will continue allopurinol Keisha Gunn MD Nephrology, [address] [address] This note was generated with the help of voice recognition software. Please excuse for errors. documented in this encounter Nursing Notes * Eugenia Bradford LPN - 08/31/2024 11:19 AM EDT Chief Complaint Patient presents with Follow Up documented in this encounter Plan of Treatment Upcoming Encounters Date Type Department Care Team (Late st Contact Info) Description 09/01/2024 9:30 AM EDT [facility] [address] [place] [address] Shyla Valladares, CCC-BLACKJACK SUPERVISOR [address] [place] [address] 09/01/2024 10:00 AM EDT Office Visit Otolaryngology/Head & Neck/Facial Plastic Surgery [address] [place] [address] Lexie Aldridge MD [address] [place] [address] 09/04/2024 11:00 AM EDT Hem/Onc Treatment Hematology/Oncology Treatment, [address] [address] [facility], Chair5 Hem Onc [address] [place] [address] 09/05/2024 10:00 AM EDT Office Visit Radiation Oncology, [address] [address] Mansoor Watson MD [address] [place] [phone] 09/05/2024 11:00 AM EDT Documentation Radiation Oncology, [address] [address] Mansoor Watson MD [address] [place] [address] Gl[address], [address] Rad Onc [address] [place] [address] 09/15/2024 3:45 PM EST Office Visit Dental Medicine, [place] [address] [place] [address] Russel Caceres, [facility] [address] [place], [place] [id number] 10/09/2024 2:20 PM EST Office Visit [facility], [address] [place] [phone] David Antunez MD [address] [place] [address] 11/14/2024 1:15 PM EST Office Visit [facility] [address] [place] [address] Supriya Fernandes MD [address] [place] [address] 12/21/2024 1:30 PM EST Office Visit Dermatology, [facility] [address] [facility] [address] [place], [place] [phone] Malaika Guzman PA-C [address] [place], [place] [phone] 12/22/2024 12:00 PM EST Office Visit Nephrology, [address] [phone] Keisha Gunn MD [address] [place] [phone] 01/22/2025 1:30 PM EDT PulmDiagnostic Pulmonary Function Lab [facility] [address] [facility] [place] [address] [address] Sonali Thang [place] [address] 01/22/2025 2:00 PM EDT Office Visit Pulmonary Medicine [facility] [address] [place] [phone] Dominguez Aguilar MD [address] [facility] [place] [address] 02/05/2025 10:00 AM EDT Office Visit Rheumatology, [facility] [address] [place] [address] Rafael Hernandez PA-C [address] [facility] [address] 02/06/2025 1:30 PM EDT Office Visit Cardiology, [address] [facility] [place] [address] Cherry Warner PA-C [address] [facility] [address] Scheduled Procedures Name Priority Associated Diagnoses Date/Ti [...] 01/31/2024, 01/07, 09/02/2022, Additional history exists GFR 02/19/2025 08/21/2024, 08/08, 08/17/2024, Additional history exists Albumin/Creatinine Ratio 03/27/2025 024, [...] this encounter Medical Devices Implanted Type Area Predictive Maintenance Specialist Device Identifier Shelf Expiration Date Model / Serial / Lot Mesh Perfix Plug [id number] [id number] - [id number] Implanted:Qty : 1 on 02/07/2019 by Jonathan Correia DO at OR [facility] Right: Groin CR BARD : DAVOL 09/04/2023 [id number] / / [id number] Cytal Wndmtx 1lyr 25y77ac(150 Units) - [id number] - [id number] Implanted:Qty : 1 on 08/10/2024 by Lexie Aldridge MD at OR [facility] Left: Leg Upper [employer] [id number] 10/07/2025 [id number] / [id number] / [id number] Cytal Wndmtx 1lyr 7x10cm (70 Units) - [id number] - [id number] Implanted:Qty : 1 on 08/10/2024 by Lexie Aldridge MD at OR [facility] Left: Leg Upper [employer] [id number] 01/05/2026 [id number] / [id number] / [id number] documented as of this encounter Visit Diagnoses Diagnosis Kidney disease, chronic, stage IV (GFR 15-29 ml/min) (HCC)- Primary Chronic kidney disease, Stage IV (severe) HTN, goal below 140/90 Unspecified essential hypertension Hyperuricemia Other abnormal blood chemistry documented in this encounter Advance Directives Documents on File Type Date Recorded Patient Guest Services Representative Expl anation Advance Directives and Living Will [...] [place] Adult Child Emergency Contact Care Teams Linseed Cake Trimmer Relationship Specialty Start Date End Date Fuentes Ashton MD [address] [place] [address] PCP - General Family Medicine 01/30/22 documented as of this encounter
--- OUTSIDE RECORDS SUMMARY | 2024-09-30 18:08 | External Medical Summary | Summary of Care ---
Author Name Unknown Organization [facility] Address [address] [facility] [place] [address] Phone [phone] Care Team Providers Care Certified Retinal Angiographer Name Role Phone Fuentes Ashton MD Primary Care Provider [phone] Encounter Details Date Type Department Care Team (Late st Contact Info) Description 09/01/2024 Orders Only [facility] [address] [facility] [facility] [address] Devan Garcia MD [address] [place] 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 08/03/2023 08/03/2023 Atherosclerosis of [place] co ronary artery without angina pectoris 02/01/2023 [...] mRNA, LNP-s, No Pre serve, 2-Dose Series (Pro Player Connect) 08/15/2021,01/31/2021,01/03/2021 COVID-19, LNP-s, No Preserve , Ruslan-sucrose, Ages 12+ (Pfizer) 03/19/2022 COVID-19, MRNA-LNP, 23-24, P F, 30 MCG/0.3 mL, 12 YRS AND ABOVE, IM ([facility]) 10/25/2023 Covid-19, Mrna, Lnp-s, Pf, B ivalent, 30 Mcg, IM, 12 yrs and above (Pfizer) 2022 Pneumococcal Conjugate Vacc, 13 Valent (Prevnar) 01/21/2016 Pneumococcal Conjugate Vacci ne, 20-valent ([id number]) 07/19/2023 Pneumococcal Polysaccharide PPV23 (Pneumovax) 01/13/2011 RSV [...] Otolaryngology/Head & Neck/Facial Plastic [facility] [address] [facility] [address] Lexie Aldridge MD [address] [facility] [place] [address] 09/04/2024 11:00 AM EDT Hem/Onc Treatment Hematology/Oncology Treatment, [facility] [address] [facility], Chair5 Hem Onc [address] [place] [address] 09/05/2024 10:00 AM EDT Office Visit Radiation Oncology, [facility] [address] [facility], [place] [address] IoMansoor luevano MD [address] [facility] [place] [phone] 09/05/2024 11:00 AM EDT Documentation Radiation Oncology, [facility] [address] [place] [address] Mansoor Watson MD [address] [place] [phone] [address], [address] Rad Onc [address] [place] [address] 09/15/2024 3:45 PM EST Office Visit Dental Medicine, [place] [address] [place], [place] [phone] [facility] [address] [place] [address] 10/09/2024 2:20 PM EST Office Visit Family Practice, [place] [address] [facility] [place] [phone] David Antunez MD 21 [place] [address] 11/14/2024 1:15 PM EST Office Visit MOHS Surgery [facility] 200 [place] [address] Supriya Fernandes MD 200 [place] [address] 12/21/2024 1:30 PM EST Office Visit Dermatology, [place]ir [place] [address] [place] [address] Malaika Guzman PA-C 27 [place] [phone] 12/22/2024 12:00 PM EST Office Visit Nephrology, [address] [address] Keisha Gunn MD 400 [place] [address] 01/22/2025 1:30 PM EDT PulmDiagnostic Pulmonary Function Lab [facility] [address] [facility] [place] [address] [address], [address] Sonali Thang [place], [place] [address] 01/22/2025 2:00 PM EDT Office Visit Pulmonary Medicine [facility] [address] [facility] [place] [phone] Dominguez Aguilar MD [address] [facility] [address] 02/05/2025 10:00 AM EDT Office Visit Rheumatology, [address] [address] Rafael Hernandez PAReddy [address] [place] [address] 02/06/2025 1:30 PM EDT Office Visit Cardiology, [address] [place] [address] Cherry Warner PA-C [address] [place] [address] Scheduled Procedures Name Priority Associated Diagnoses Date/Ti [...] this encounter Medical Devices Implanted Type Area Returner Device Identifier Shelf Expiration Date Model / Serial / Lot Mesh Perfix Plug Lg [id number] - [id number] Implanted:Qty : 1 on 02/07/2019 by Jonathan Correia DO at OR [facility] Right: Lelo KEBEDE BARD : DAVOL 09/04/2023 [id number] / / [id number] Cytal Wndmtx 1lyr 70e58cr(150 Units) - [id number] - [id number] Implanted:Qty : 1 on 08/10/2024 by Lexie Aldridge MD at [place] [facility] Left: Leg Upper [employer] [id number] 10/07/2025 [id number] / [id number] / [id number] Cytal Wndmtx 1lyr 7x10cm (70 Units) - [id number] - [id number] Implanted:Qty : 1 on 08/10/2024 by Lexie Aldridge MD at [place] [facility] Left: Leg Upper [employer] [id number] 01/05/2026 [id number] / [id number] / [id number] documented as of this encounter Advance Directives Documents on File Type Date Recorded 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
--- OUTSIDE RECORDS SUMMARY | 2024-09-30 18:08 | External Medical Summary | Summary of Care ---
Author Name Unknown Organization [facility] Address [address] [facility] [place] [address] Phone [phone] Care Team Providers Care Job Service Specialist Name Role Phone Fuentes Ashton MD Primary Care Provider [phone] Encounter Details Date Type Department Care Team (Late st Contact Info) Description 08/28/2024 Telephone 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 1 Each 11 4 Active Additional Information Patient not taking.Reported on 08/25/2024 Albuterol Sulfate (2.5 MG/3ML) 0.083% Inhalation Nebulization Solution (Proventil)Indicat ions:COPD, group C, by GOLD 2017 classification ([facility]) Inhale 1 Vial via nebulizer [...] 6 weeks 170 g 3 4 Active Additional Information Patient not taking.Reported on 08/25/2024 Aquaphor External Ointment Apply topically to affected area 3 times a day. Apply to neck three times daily 396 g 4 Active Doxycycline Monohydrate 100 MG Oral CapsuleIndications :Squamous cell carcinoma of neck Take 1 Capsule by mouth in the morning and 1 Capsule before bedtime. Do all this for 7 days. 14 Capsule 4 09/01/20 24 Active Zinc Oxide 40 % External Paste (Desitin)Indicatio ns:Pressure injury of left buttock, stage 1 Apply to buttocks as needed. 57 g 4 Active Folic Acid 1 MG Oral Tablet Take 1 Tablet by mouth in the morning. 30 Tablet 10/08/29/20 Discontinu ed(Refill) Vitamin B-12 1000 MCG Oral Tablet (Cyanocobalamin) Take 1 Tablet by mouth in the morning. 30 Tablet 08/29/20 Discontinu ed(Refill) Hospital, Clinic, or Other Facility Administered Medication Ordered Dose Route Frequency Start Date End Date Status oxygen GASIndications:Iron deficiency anemia, unspecified iron deficiency anemia type IN OXYGEN 08/28/2024 Ac tive Iron Dextran (Infed) IV Push TEST DOSE 25 mgIndications:Iron deficiency anemia, unspecified iron deficiency anemia type 25 mg IV PUSH ONCE 08/28/2024 08/29/2024 En ded Iron Dextran (Infed) 975 mg in NSS 250 mL INFUSIONIndications:Iron deficiency anemia, unspecified iron deficiency anemia type 975 mg IVPB ONCE 08/28/2024 08/29/2024 En ded Hydrocortisone Sod Suc (PF) (Solu-Cortef) inj 100 mgIndications:Iron deficiency anemia, unspecified iron deficiency anemia type 100 mg IV PUSH ONCE PRN 08/28/2024 08/29/2024 En ded Famotidine (Pepcid) inj 20 mgIndications:Iron deficiency anemia, unspecified iron deficiency anemia type 20 mg IV PUSH ONCE PRN 08/28/2024 08/29/2024 En ded EPINEPHrine 1 MG/ML inj 0.3 mgIndications:Iron deficiency anemia, unspecified iron deficiency anemia type 0.3 mg IM ONCE PRN 08/28/2024 08/29/2024 En ded documented as of this encounter (statuses as [...] from 2018 Atherosclerotic heart diseas e of [place] coronary artery without angina pectoris 05/31/2020 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) 0 03/09/2018 Overview: MRI 02/23 detention (current) use 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 08/03/2023 08/03/2023 Atherosclerosis of [place] co ronary artery without angina pectoris 02/01/2023 [...] mRNA, LNP-s, No Pre serve, 2-Dose Series (Tracksmith) 08/15/2021,01/31/2021,01/03/2021 COVID-19, LNP-s, No Preserve , Ruslan-sucrose, Ages 12+ (Pfizer) 03/19/2022 COVID-19, MRNA-LNP, 23-24, P F, 30 MCG/0.3 mL, 12 YRS AND ABOVE, IM ([facility]) 10/25/2023 Covid-19, Mrna, Lnp-s, Pf, B ivalent, 30 Mcg, IM, 12 yrs and above ([employer]smith) 2022 Pneumococcal Conjugate Vacc, 13 Valent (Prevnar) 01/21/2016 Pneumococcal Conjugate Vacci ne, 20-valent ([id number]) 07/19/2023 Pneumococcal Polysaccharide PPV23 (Pneumovax) 01/13/2011 RSV [...] encounter Miscellaneous Notes * Telephone Encounter - Renetta Gilbert RN - 08/29/2024 4:34 PM EDT Pt can be scheduled either between 3097-3430 or 12:00 and 2:00, only 2 Infed per day, 2 hour treatment time. * Addendum Note - Devan Narayanan MD - 08/29/2024 4:07 PM EDT Addended by: DEVAN NARAYANAN on: 08/29/2024 04:07 PM Modules accepted: Orders * Addendum Note - Leonel Trejo RN - 08/29/2024 3:22 PM EDTAddended by: LEONEL TREJO on: 08/29/2024 03:22 PM Modules accepted: Orders * Telephone Encounter - Leonel Trejo RN - 08/29/2024 3:13 PM EDT Karen (pt's ) expressed concern that no one had contacted her to schedule iron infusion yet. Pt's made aware that case coordinator would look into manner. Spoke with net developer at [facility] who stated that order need placed and authorizationdone by order office prior to infusion being scheduled. Dr. Abel, If you approve, please sign order for new supportive care plan. * Telephone Encounter - Makayla Parham MED ASSIST - 08/28/2024 2:40 PM EDT Spoke with pt voiced understanding of the message. * Telephone Encounter - Devan Narayanan MD - 08/28/2024 2:16 PM EDT Please call patient let him know that I order iron infusion, the infusion center we will call him to schedule this infusion. documented in this encounter Plan of Treatment Upcoming Encounters Date Type Department Care Team (Late st Contact Info) Description 09/01/2024 10:00 AM EDT Office Visit Otolaryngology/Head & Neck/Facial Plastic Surgery [address] [place] [address] Lexie Aldridge MD [address] [place] [address] 09/04/2024 11:00 AM EDT Hem/Onc Treatment Hematology/Oncology Treatment, [address] [address] [facility], Chair5 Hem Onc [address] [place] [address] 09/05/2024 10:00 AM EDT Office Visit Radiation Oncology, [address] [address] Mansoor Watson MD [address] [place] [phone] 09/05/2024 11:00 AM EDT Documentation Radiation Oncology, [address] [address] Mansoor Watson MD [address] [place] [phone] [facility], [address] Rad Onc [address] [place] [address] 09/15/2024 3:45 PM EST Office Visit Dental Medicine, [place] [address] [place] [address] Russel Caceres, [facility] [address] [facility] [place] [address] 10/09/2024 2:20 PM EST Office Visit [facility], [place] [address] [facility] [place] [phone] David Antunez MD [address] [facility] [place] [address] 11/14/2024 1:15 PM EST Office Visit MOHS Surgery [facility] 200 [place] [address] Supriya Fernandes MD 200 [place] [address] 12/21/2024 1:30 PM EST [facility] [address] [facility] 140 [place] [phone] Malaika Guzman PA-C [address] [place] [address] 12/22/2024 12:00 PM EST Office Visit Nephrology, [facility] 400 [place] [address] Keisha Gunn MD [address] [place] [address] 01/22/2025 1:30 PM EDT PulmDiagnostic Pulmonary Function Lab [facility] [address] [place] [address] [address], [address] [place] [address] 01/22/2025 2:00 PM EDT Office Visit Pulmonary Medicine [facility] [address] [place] [phone] Dominguez Aguilar MD [address] [place] [address] 02/05/2025 10:00 AM EDT Office Visit Rheumatology, [facility] 400 [place] [address] Rafael Hernandez PA-C [address] [facility], [place] [address] 02/06/2025 1:30 PM EDT Office Visit Cardiology, [place] [facility] [address] Cherry Warner PA-C 400 [place] [address] Scheduled Procedures Name Priority Associated Diagnoses Date/Ti [...] this encounter Medical Devices Implanted Type Area Assessment Nurse Device Identifier Shelf Expiration Date Model / Serial / Lot Mesh Perfix Plug Lg [id number] - [id number] Implanted:Qty : 1 on 02/07/2019 by Jonathan Correia DO at OR [facility] Right: Groin CR BARD : DAVOL 09/04/2023 [id number] / / [id number] Cytal Wndmtx 1lyr 22n34ll(150 Units) - [id number] - [id number] Implanted:Qty : 1 on 08/10/2024 by Lexie Aldridge MD at OR [facility] Left: Leg Upper [employer] [id number] 10/07/2025 [id number] / [id number] / [id number] Cytal Wndmtx 1lyr 7x10cm (70 Units) - [id number] - [id number] Implanted:Qty : 1 on 08/10/2024 by Lexie Aldridge MD at OR [facility] Left: Leg Upper ANDREA CUMMINGS [id number] 01/05/2026 [id number] / [id number] / [id number] documented as of this encounter Visit Diagnoses Diagnosis Iron deficiency anemia, unspecified iron deficiency anemia type- Primary documented in this encounter Advance Directives Documents on File Type Date Recorded 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
--- OUTSIDE RECORDS SUMMARY | 2024-09-30 18:08 | External Medical Summary ---
Author Name Unknown Address Unknown Organization [id number]:LABORATORY [facility] - [address] [place] [address] Laboratory Report Ordering Provider Test Date Status JOSELO VIDES 09/01/2024 11:50:04 Final Observation Date Value Abnormality Reference (Units ) Status BUN 09/01/2024 11:50:04 59 Above high normal 6-20 (mg/dL) Final Creatinine 09/01/2024 11:50:04 3.6 Above high normal 0.6-1.2 (mg/dL) Final Glomerular filtration rate/1.73 sq M.predicted [Volume Rate/Area] in Serum, Plasma or Blood by Creatinine-based formula (CKD-EPI) 09/01/2024 11:50:04 17 Below low normal >=60 (mL/min) Final eGFR is calculated based on the CKD-EPI 2020 equation. Sodium 09/01/2024 11:50:04 138 135-146 (m mol/L) Final Potassium 09/01/2024 11:50:04 4.7 3.5-5.1 (m mol/L) Final Cl 09/01/2024 11:50:04 104 98-107 (mm ol/L) Final CO2 09/01/2024 11:50:04 24 22-32 (mmo l/L) Final Anion gap 09/01/2024 11:50:04 10 7-15 (mmol /L) Final Glucose 09/01/2024 11:50:04 107 70-120 (mg /dL) Final Albumin 09/01/2024 11:50:04 3.7 Below low normal 3.8 -5.0 (g/dL) Final AST (Aspartate aminotransferase) 09/01/2024 11:50:04 29 10-50 (U/L) Fin al Alk Phos 09/01/2024 11:50:04 88 35-130 (U/ L) Final Bilirubin, Total 09/01/2024 11:50:04 0.4 <=1 .2 (mg/dL) Final Calcium 09/01/2024 11:50:04 9.3 8.4-10.2 ( mg/dL) Final Protein 09/01/2024 11:50:04 6.7 6.0-8.3 (g /dL) Final ALT (Alanine aminotransferase) 09/01/2024 11:50:04 25 10-50 (U/L) Everardo diaz Performing Location LABORATORY [facility] - [facility] [address] [facility] [address]
--- OUTSIDE RECORDS SUMMARY | 2024-09-30 18:08 | External Medical Summary ---
Author Name Unknown Address Unknown Organization K01:[facility] [place] [address] [place] [address] Laboratory Report Ordering Provider Test Date Status JOSELO VIDES 09/01/2024 11:50:04 Final Observation Date Value Abnormality Reference (Units ) Status Uric Acid 09/01/2024 11:50:04 5.6 3.4-7.0 (m g/dL) Final Performing Location LABORATORY [facility] - [address] [place] [address]
--- OUTSIDE RECORDS SUMMARY | 2024-09-30 18:08 | External Medical Summary ---
Author Name Unknown Address Unknown Organization K01:LABORATORY [facility] - [address] [facility] [address] Laboratory Report Ordering Provider Test Date Status JUAN MENDIETA 09/01/2024 11:50:04 Final Observation Date Value Abnormality Reference (Units ) Status Color of Urine by Auto 09/01/2024 11:50:04 Light Yellow Colorless, Light Yellow, Yellow, Dark Yellow Final Clarity, Urine 09/01/2024 11:50:04 Clear Clear Final Glucose [Mass/volume] in Urine by Automated test strip 09/01/2024 11:50:04 100 Abnormal Negative (mg/dL) Final Bilirubin.total [Presence] in Urine by Automated test strip 09/01/2024 11:50:04 Negative Negative Final Ketones [Mass/volume] in Urine by Automated test strip 09/01/2024 11:50:04 Negative Negative (mg/dL) Final Specific gravity, Urine 09/01/2024 11:50:04 1.020 1.003-1.030 Final Hemoglobin [Presence] in Urine by Automated test strip 09/01/2024 11:50:04 Trace Abnormal Negative Final pH, Urine 09/01/2024 11:50:04 6.0 5.0-7.5 (Units) Final Protein [Mass/volume] in Urine by Automated test strip 09/01/2024 11:50:04 30 Abnormal Negative (mg/dL) Final Urobilinogen [Mass/volume] in Urine by Automated test strip 09/01/2024 11:50:04 Normal Normal (mg/dL) Final Nitrite [Presence] in Urine by Automated test strip 09/01/2024 11:50:04 Negative Negative Final Leukocyte esterase [Presence] in Urine by Automated test strip 09/01/2024 11:50:04 Negative Negative Final RBC, Urine 09/01/2024 11:50:04 0-2 0-2 (/HPF) Final WBC, Urine 09/01/2024 11:50:04 0-2 0-2 (/HPF) Final Bacteria [#/area] in Urine sediment by Microscopy high power field 09/01/2024 11:50:04 0-25 0-25 (/HPF) Final CULTURE, URINE - [facility] 09/01/2024 11:50:04 Final Culture not indicated by uri nalysis results\X09\ Performing Location LABORATORY [facility] [place] - [facility] [address] [facility] [address]
--- OUTSIDE RECORDS SUMMARY | 2024-09-30 18:08 | External Medical Summary ---
Author Name Unknown Address Unknown Organization K01:LABORATORY [facility] - [address] [place] [address] Laboratory Report Ordering Provider Test Date Status MAHOGANYJOSELO LEMA 09/01/2024 11:50:04 Final Observation Date Value Abnormality Reference (Units ) Status WBC, Total 09/01/2024 11:50:04 7.61 4.00-10.80 (K/uL) Final RBC 09/01/2024 11:50:04 2.93 4.50-5.25 (M/uL) Final Hemoglobin 09/01/2024 11:50:04 9.9 Below low normal 14.0-16.8 (g/dL) Final HCT 09/01/2024 11:50:04 32.9 Below low normal 40.0-48.4 (%) Final MCV 09/01/2024 11:50:04 112.3 82.0-99.5 (fL) Final MCH 09/01/2024 11:50:04 33.8 27.0-34.0 (pg) Final MCHC 09/01/2024 11:50:04 30.1 32.0-36.0 (g/dL) Final RDW 09/01/2024 11:50:04 18.2 11.5-15.5 (%) Final Platelets 09/01/2024 11:50:04 208 140-400 (K/uL) Final MPV 09/01/2024 11:50:04 11.5 6.6-11.1 (fL) Final Nucleated erythrocytes/100 leukocytes [Ratio] in Blood by Automated count 09/01/2024 11:50:04 0 <=0 (/100 WBCs) Final Performing Location LABORATORY [facility] - [address] [place] [address]
--- OUTSIDE RECORDS SUMMARY | 2024-09-30 18:08 | External Medical Summary | Summary of Care ---
Author Name Unknown Organization [facility] Address [address] [place] [address] Phone [phone] Care Team Providers Care Ios Programmer Name Role Phone Fuentes Ashton MD Primary Care Provider [phone] Reason for Visit * Reason Comments Outpatient Testing Encounter Details Date Type Department Care Team (Late st Contact Info) Description 09/01/2024 11:50 AM EDT Laboratory Outpatient Laboratory, [place] [address] [place] [address] [place], Lab B1a [address] [place] [address] Chronic gout due to renal impairment of multiple sites without tophus; SCC (squamous cell carcinoma); 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; [...] Delayed Release (PriLOSEC)Indicatio ns:Gastroesophageal reflux disease without esophagitis,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 [...] 03/03/2024 Type 2 diabetes mellitus without complication 02/07/2001 0302/07/2024 Hospital discharge follow-up 09/20/2023 03/03/2024 Scrotal irritation 09/12/2023 Bilateral cellulitis of lower leg 09/12/2023 03/03/2024 Acute on chronic anemia 09/11/202302/07 Cellulitis 09/09/2023 03/03/2024 Encephalopathy acute 09/09/2023 023 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 08/03/2023 08/03/2023 Atherosclerosis of [place] co ronary artery without angina pectoris 02/01/2023 [...] 08/30/2019 05/31/2020 Hypert[facility] heart failure and stage 5 chronic kidney [...] and AMP Hypertensive heart disease [facility] heart failure and stage 3 chronic kidney [...] mRNA, LNP-s, No Pre serve, 2-Dose Series (Prezacor) 08/15/2021,01/31/2021,01/03/2021 COVID-19, LNP-s, No Preserve , Ruslan-sucrose, Ages 12+ (Prezacor) 03/19/2022 COVID-19, MRNA-LNP, 23-24, P F, 30 MCG/0.3 mL, 12 YRS AND ABOVE, IM ([facility]) 10/25/2023 Covid-19, Mrna, Lnp-s, Pf, B ivalent, 30 Mcg, IM, 12 yrs and above (Prezacor) 2022 Pneumococcal Conjugate Vacc, 13 Valent (Prevnar) 01/21/2016 Pneumococcal Conjugate Vacci ne, 20-valent ([id number]) 07/19/2023 Pneumococcal Polysaccharide PPV23 (Pneumovax) 01/13/2011 RSV [...] 11:00 AM EDT Hem/Onc Treatment Hematology/Oncology Treatment, [address] [address] [facility], Chair5 Hem Onc [address] [place] [address] 09/05/2024 10:00 AM EDT Office Visit Radiation Oncology, [address] [address] Mansoor Watson MD [address] [place] [facility] [place] [phone] 09/05/2024 11:00 AM EDT Documentation Radiation Oncology, [address] [place] [address] Mansoor Watson MD [address] [place] [address] [facility], [address] Rad Onc [address] [place], [place] [phone] 09/15/2024 2:30 PM EST Office Visit Otolaryngology/Head & Neck/Facial Plastic Surgery [address] [place] [address] Lexie Aldridge MD [address] [place] [address] 09/15/2024 3:45 PM EST Office Visit Dental Medicine, [place] [address] [place], [place] [phone] Russel Caceres [facility] [address] [place] [address] 10/09/2024 2:20 PM EST Office Visit Family [facility], [place] [address] [place] [phone] David Antunez MD [facility] [place], [place] [phone] 11/14/2024 1:15 PM EST Office Visit MOHS Surgery [facility] [address] [place] [address] Supriya Fernandes MD [address] [place] [address] 12/21/2024 1:30 PM EST Office Visit Dermatology, [place] [address] [place] [address] Malaika Guzman PA-C [address] [place] [phone] 12/22/2024 12:00 PM EST Office Visit Nephrology, [address] [address] Keisha Gunn MD [address] [place] [address] 01/22/2025 1:30 PM EDT PulmDiagnostic Pulmonary Function Lab [facility] [address] [facility] [place] [address] [address], [address] [place] [address] 01/22/2025 2:00 PM EDT Office Visit Pulmonary Medicine [facility] [address] [facility] [place] [phone] Dominguez Aguilar MD [address] [facility] [address] 02/05/2025 10:00 AM EDT Office Visit Rheumatology, [address] [address] Rafael Hernandez [place]ed[place] [address] [place] [address] 02/06/2025 1:30 PM EDT Office Visit Cardiology, [address] [place] [address] Cherry Warner PA-C [address] [place] [address] [place] [address] Scheduled Orders Name Type Priority Associated Diagnoses Orde r Schedule CBC Lab Routine Chronic gout due to renal impairment of multiple sites without tophus Ordered: 09/01/2024 DIFFERENTIAL, AUTOMATED Lab Routine Chronic gout due to renal impairment of multiple sites without tophus Ordered: 09/01/2024 Scheduled Procedures Name Priority Associated Diagnoses Date/Ti [...] this encounter Medical Devices Implanted Type Area Lockstitcher Device Identifier Shelf Expiration Date Model / Serial / Lot Mesh Perfix Plug Lg [id number] - [id number] Implanted:Qty : 1 on 02/07/2019 by Jonathan Correia DO at OR [facility] Right: Groin CR BARD : DAVOL 09/04/2023 [id number] / / [id number] Cytal Wndmtx 1lyr [id number](150 Units) - [id number] - [id number] Implanted:Qty : 1 on 08/10/2024 by Lexie Aldridge MD at OR [facility] Left: Leg Upper [employer] [id number] 10/07/2025 [id number] / [id number] / [id number] Cytal Wndmtx 1lyr 7x10cm (70 Units) - [id number] - [id number] Implanted:Qty : 1 on 08/10/2024 by Lexie Aldridge MD at OR [facility] Left: Leg Upper [employer] [id number] 01/05/2026 [id number] / [id number] / [id number] documented as of this encounter Visit Diagnoses Diagnosis 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) SCC (squamous cell carcinoma) Squamous cell carcinoma of skin, site unspecified 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
--- OUTSIDE RECORDS SUMMARY | 2024-09-30 18:08 | External Medical Summary ---
Author Name Unknown Address Unknown Organization K01:[facility] [address] [place] [address] Laboratory Report Ordering Provider Test Date Status JOSELO VIDES 09/01/2024 11:50:04 Final Observation Date Value Abnormality Reference (Units ) Status SYNC LEUKOCYTES IN BLOOD BY AUTOMATED COUNT 09/01/2024 11:50:04 7.61 4.00-10.80 (K/uL) Final Neutrophils/100 leukocytes in Blood by Manual count 09/01/2024 11:50:04 80.0 Above high normal 40.0-75.0 (%) Final Lymphocytes/100 leukocytes in Blood by Manual count 09/01/2024 11:50:04 13.0 Below low normal 18.0-42.0 (%) Final Monocytes/100 leukocytes in Blood by Manual count 09/01/2024 11:50:04 5.0 1.0-11.0 (%) Final Metamyelocytes/100 leukocytes in Blood by Manual count 09/01/2024 11:50:04 2.0 Above high normal <=0.0 (%) Final Neutrophils [#/volume] in Blood by Manual count 09/01/2024 11:50:04 6.09 1.80-7.70 (K/uL) Final Lymphocytes [#/volume] in Blood by Manual count 09/01/2024 11:50:04 0.99 Below low normal 1.00-4.80 (K/uL) Final Monocytes [#/volume] in Blood by Manual count 09/01/2024 11:50:04 0.38 0.00-1.10 (K/uL) Final Metamyelocytes [#/volume] in Blood by Manual count 09/01/2024 11:50:04 0.15 Above high normal <=0.00 (K/uL) Final Performing Location [facility] [address] [place] [address]
--- OUTSIDE RECORDS SUMMARY | 2024-09-30 18:09 | External Medical Summary | Summary of Care ---
Author Name Unknown Organization [facility] Address [address] [place] [address] Phone [phone] Care Team Providers Care Seaport Planning Manager Name Role Phone Fuentes Ashton MD Primary Care Provider [phone] Encounter Details Date Type Department Care Team (Late st Contact Info) Description 08/30/2024 12:30 PM EDT Scheduled Telephone Care Coordination and Integration [address] [place] [address] [facility] Accounting System Expert [address] [place], [place] [phone] Allergies Active Allergy Reactions Criticality Noted Date Comments Aztreonam Hives Medium 10/11/2019 Cephalosporins Rash 05/24/2017 Tolerated cefazolin during August 2024 admission Chlorhexidine Hives,Rash High 01/02/2022 Full body red rash; "skin peeled completely off" Ciprofloxacin Diarrhea Medium 01/28/2015 Iodinated Contrast Media Abdominal pain High 019 Acute kidney failure Levofloxacin Rash Low 07/28/2019 documented as of this encounter (statuses as of 08/30/2024) Medications Medication Sig Dispensed Refills Start Date [...] Release (PriLOSEC)Indicati ons:Gastroesophage al reflux disease without esophagitis,long-term (current) use of [...] Aerosol Powder Breath ActivatedIndicatio ns:COPD, moderate ([facility]) Inhale 2 Puffs by mouth every 4 hours as needed for Shortness of Breath. 1 Each 11 4 Active Additional Information Patient not taking.Reported on 08/25/2024 Albuterol Sulfate (2.5 MG/3ML) 0.083% Inhalation Nebulization Solution (Proventil)Indicat ions:COPD, group C, by GOLD 2017 classification ([facility]) Inhale 1 Vial via nebulizer every 4 [...] in the morning. 30 Tablet 4 08/29/20 24 Discontinu ed(Refill) Vitamin B-12 1000 MCG Oral Tablet (Cyanocobalamin) Take 1 Tablet by mouth in the morning. 30 Tablet 4 08/29/20 Discontinu ed(Refill) Hospital, Clinic, or Other Facility Administered Medication Ordered Dose Route Frequency Start Date End Date Status oxygen GASIndications:Iron deficiency anemia, unspecified iron deficiency anemia type IN OXYGEN 08/28/2024 Active documented as of this encounter (statuses as of 08/30/2024) Active Problems Problem Noted Date Diagnosed Date [...] from 2018 Atherosclerotic heart diseas e of [place] coronary artery without angina pectoris 05/31/2020 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) 0 03/09/2018 Overview: MRI 02/23 long-term (current) use 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 Steroid-induced diabetes [...] as of this encounter (statuses as of 08/30/2024) Resolved Problems Problem Noted Date Diagnosed Date [...] chronic kidney disease 08/03/2023 08/03/2023 Atherosclerosis of [place] co ronary artery without angina pectoris 02/01/2023 [...] as of this encounter (statuses as of 08/30/2024) Immunizations Name Administration Dates Next Due COVID-19 mRNA, LNP-s, No Pre serve, 2-Dose Series ([email or web address]) 08/15/2021,01/31/2021,01/03/2021 COVID-19, LNP-s, No Preserve , Ruslan-sucrose, Ages 12+ (Pfizer) 03/19/2022 COVID-19, MRNA-LNP, 23-24, P F, 30 MCG/0.3 mL, 12 YRS AND ABOVE, IM ([facility]) 10/25/2023 Covid-19, Mrna, Lnp-s, Pf, B ivalent, 30 Mcg, IM, 12 yrs and above ([email or web address]) 2022 Pneumococcal Conjugate Vacc, 13 Valent (Prevnar) 01/21/2016 Pneumococcal Conjugate Vacci ne, 20-valent ([id number]) 07/19/2023 Pneumococcal Polysaccharide PPV23 (Pneumovax) 01/13/2011 RSV [...] Progress Notes * Gabriela Boone RN - 08/30/2024 3:09 PM EDT T/C to Karen to leave her know that Home Health Referral was sent to [facility]. Karen stated that she and Kennedy wrapped additional bandage around dressing. * Jonah [facility] Accounting System Expert - 08/30/2024 1:02 PM EDT Telemedicine visit: No Community [facility] Accounting System Expert (MANE) documentation: CHW follow up phone call for RNCM and spoke with the patient's spouse, Karen. Karen reports that the patient is having bleeding at the location of the skin graft on his leg. She explained that the bandage is so full that it is actually bleeding off. She said there is a plastic piece on the area as well and it is wearing thin. She said they are trying to rewrap the area to keepit from bleeding through. She said the bandage should have been changed yesterday but they never received an appointment. She reports that the bleeding started last evening. Karen also explained that it will be tough for them to get to [place] because they are 2 hours away. Karen denied any signs of infection at the site and stated that it is just blood. Karen denied any signs of fever. Karen and patient agreeable to follow up phone call in 1 week. Bj Scott Community Health Worker Lead [facility] [phone] documented in this encounter Plan of Treatment Upcoming Encounters Date Type Department Care Team (Late st Contact Info) Description 08/31/2024 11:20 AM EDT Office Visit Nephrology, [address] [address] Keisha Gunn MD [address] [place] [address] 09/01/2024 9:30 AM EDT Rehab Services Voice Lab, [place] [address] [place] [address] Shyla Valladares, [facility] [address] [place] [address] 09/01/2024 10:00 AM EDT Office Visit Otolaryngology/Head & Neck/Facial Plastic Surgery [address] [place] [address] Lexie Aldridge MD [address] [place] [address] 09/04/2024 11:00 AM EDT Hem/Onc Treatment Hematology/Oncology Treatment, [address] [address] [facility], Chair5 Hem Onc [address] [place] [address] 09/05/2024 10:00 AM EDT Office Visit Radiation Oncology, [facility] [address] [place] [address] IovolMansoor mills MD [address] [place] [phone] 09/05/2024 11:00 AM EDT Documentation Radiation Oncology, [facility] [address] [place] [address] IovolMansoor mills MD [address] [place] [phone] [place], [address] Rad Onc [address] [place] [address] 09/15/2024 3:45 PM EST Office Visit Dental Medicine, [place] [address] [place] [address] Russel Caceres, [facility] [address] [place] [address] 10/09/2024 2:20 PM EST Office Visit Family [facility] [address] [facility] [place] [phone] David Antunez MD 21 [place] [address] 11/14/2024 1:15 PM EST Office Visit [facility] Surgery [facility] [address] [place] [address] Supriya Fernandes MD 200 [place] [address] 12/21/2024 1:30 PM EST Office Visit Dermatology, [place] [place] [address] [place] [address] Malaika Guzman PA-C [address] [place] [address] 01/22/2025 1:30 PM EDT PulmDiagnostic Pulmonary Function Lab [facility] [address] [facility] [place] [address] [address], [address] [place] [address] 01/22/2025 2:00 PM EDT Office Visit Pulmonary Medicine [facility] [address] [facility] [phone] Dominguez Aguilar MD [address] [facility] [place] [address] 02/05/2025 10:00 AM EDT Office Visit Rheumatology, [address] [address] Rafael Hernandez PA-C [address] [place] [address], [place] [address] 02/06/2025 1:30 PM EDT Office Visit Cardiology, [address] [address] Cherry Warner PA-C [address] [facility] [address] Scheduled Procedures Name Priority Associated Diagnoses Date/Ti [...] this encounter Medical Devices Implanted Type Area Layout Worker Device Identifier Shelf Expiration Date Model / Serial / Lot Mesh Perfix Plug Lg [id number] - [id number] Implanted:Qty : 1 on 02/07/2019 by Jonathan Correia DO at OR [facility] Right: Lelo KEBEDE BARD : DAVOL 09/04/2023 [id number] / / [id number] Cytal Wndmtx 1lyr 16d00ad(150 Units) - [id number] - [id number] Implanted:Qty : 1 on 08/10/2024 by Lexie Aldridge MD at OR [facility] Left: Leg Upper [employer] [id number] 10/07/2025 [id number] / [id number] / [id number] Cytal Wndmtx 1lyr 7x10cm (70 Units) - [id number] - [id number] Implanted:Qty : 1 on 08/10/2024 by Lexie Aldridge MD at OR [facility] Left: Leg Upper [employer] [id number] 01/05/2026 [id number] / [id number] / [id number] documented as of this encounter Advance Directives Documents on File Type Date Recorded Patient Media Traffic Manager Expl anation Advance Directives and Living Will [...] [place] Adult Child Emergency Contact Care Teams Seaport Planning Manager Relationship Specialty Start Date End Date Fuentes Ashton MD [address] [place] [address] PCP - General Family Medicine 01/30/22 documented as of this encounter
--- OUTSIDE RECORDS SUMMARY | 2024-09-30 18:09 | External Medical Summary | Summary of Care ---
Author Name Unknown Organization [facility] Address [address] [place] [address] Phone [phone] Care Team Providers Care Escapement Maker Name Role Phone Fuentes Ashton MD Primary Care Provider [phone] Reason for Referral * Evaluate & Treat - Unlimited Visits (Within 10 days (routine)) - Pending Review Specialty Diagnoses / Procedures Referred By Contac t Referred To Contact HOME CARE / Home Care Diagnoses Pressure injury of left buttock, stage 1 Squamous cell carcinoma of neck Ambulatory dysfunction Fuentes Ashton MD [address] [place] [address] Referral ID Status Reason Start Date Expiration Date Visits Requested Visits Authorized [id number] Pending Review Specialty Services Required 4 [phone] Question Answer Referral Priority Within 10 days (routine) Where should this appointment be scheduled? Pablo Jones Documentation of Cxqr-jk-Ndwj Encounter Addendum Patient Name: Kennedy Davis I certify that this patient is under my care and that I, or a nurse practitioner or physician's mailing machine assistant working with me, had a xpcq-sy-euul encounter that meets the physician awdt-pa-zosc encounter requirements with this patient on: 08/25/24 [...] effort and are for medical reasons or christianity services or infrequently or of short duration when for other reason) because. Physician Signature: Date of Signature: Physician Printed Name: Malaika Morales LPN Reason for Visit * Reason Onset Date Comments Advice 08/30/2024 Encounter Details Date Type Department Care Team (Late st Contact Info) Description 08/30/[address] [facility] [place] [address] [phone] Fuentes Ashton MD [address] [address] Advice Allergies Active Allergy Reactions Criticality Noted Date [...] Release (PriLOSEC)Indicati ons:Gastroesophage al reflux disease without esophagitis,care home (current) use 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 Take [...] ions:COPD, group C, by GOLD 2017 classification ([facility] [...] for 7 days. 14 Capsule 4 09/01/20 Active Zinc Oxide 40 % External Paste (Desitin)Indicatio ns:Pressure injury of left buttock, stage 1 Apply to buttocks as needed. 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 [...] mRNA, LNP-s, No Pre serve, 2-Dose Series ([employer]) 08/15/2021,01/31/2021,01/03/2021 COVID-19, LNP-s, No Preserve , Ruslan-sucrose, Ages 12+ ([employer]) 03/19/2022 COVID-19, MRNA-LNP, 23-24, P F, 30 MCG/0.3 mL, 12 YRS AND ABOVE, IM ([facility]) 10/25/2023 Covid-19, Mrna, Lnp-s, Pf, B ivalent, 30 Mcg, IM, 12 yrs and above ([employer]) 2022 Pneumococcal Conjugate Vacc, 13 Valent (Prevnar) 01/21/2016 Pneumococcal Conjugate Vacci ne, 20-valent ([id number]) 07/19/2023 Pneumococcal Polysaccharide PPV23 (Pneumovax) 01/13/2011 RSV [...] Lau OSA - 08/30/2024 2:58 PM EDT [facility] calling requesting order to state in home PT /OT as well as the wound care is not considered half-way as pt was directed to use Desitin please place new order to in home PT /OTas well as something more in depth about wound * Telephone Encounter - Gabriela Boone RN - 08/30/2024 1:21 PM EDT Confirmed pt's address and insurance with [facility]. Intake nurse says they typically try [...] 08/31/2024 11:20 AM EDT Office Visit Nephrology, [address] [address] Keisha Gunn MD [address] [place], [place] [address] [address] 09/01/2024 9:30 AM EDT Rehab Services Voice Lab, [address] [address] Shyla Valladares, CCC-SWITCHBOARD TROUBLESHOOTER [address] [place] [address] 09/01/2024 10:00 AM EDT Office Visit Otolaryngology/Head & Neck/Facial Plastic Surgery [address] [place] [address] Lexie Aldridge MD [address] [place] [address] 09/04/2024 11:00 AM EDT Hem/Onc Treatment Hematology/Oncology Treatment, [address] [address] [facility], Chair5 Hem Onc [address] [place] [address] 09/05/2024 10:00 AM EDT Office Visit Radiation Oncology, [facility] [address] [place] [address] Mansoor Watson MD [address] [place] [address] 09/05/2024 11:00 AM EDT Documentation Radiation Oncology, [address] [address] Mansoor Watson MD [address] [place] [address] [facility], [address] Rad Onc [address] [place] [address] 09/15/2024 3:45 PM EST Office Visit Dental Medicine, [place] [address] [place] [address] Russel Caceres, JESSICA [address] [place] [address] 10/09/2024 2:20 PM EST Office Visit [facility] [place] [address] [phone] David Antunez MD [address] [place] [address] 11/14/2024 1:15 PM EST Office Visit MOHS Surgery [facility] [address] [place], [place] [address] Supriya Fernandes MD 200 [facility], [place] [address] 12/21/2024 1:30 PM EST Office Visit Dermatology, [address] Desir [place] [address] [facility] [address] [address] Malaika Guzman PA-C [address] [place] [address] 01/22/2025 1:30 PM EDT PulmDiagnostic Pulmonary Function Lab [facility] [address] [address] [address], [address] [place], [place] [address] 01/22/2025 2:00 PM EDT Office Visit Pulmonary Medicine [facility] [place] [address] [phone] Dominguez Aguilar MD [address] [place] [address] 02/05/2025 10:00 AM EDT Office Visit Rheumatology, [address] [address] Rafael Hernandez, PA-C 9378 [facility] [place] [address] 02/06/2025 1:30 PM EDT Office Visit CardiologyAhmet [address] [place] [address] Cherry Warner PA-C [address] [place] [address] Scheduled Procedures Name Priority Associated Diagnoses Date/Ti [...] this encounter Medical Devices Implanted Type Area Campus Supervisor Device Identifier Shelf Expiration Date Model / Serial / Lot Mesh Perfix Plug Lg [id number] - [id number] Implanted:Qty : 1 on 02/07/2019 by Jonathan Correia DO at OR [facility] Right: Groin CR BARD : DAVOL 09/04/2023 [id number] / / [id number] Cytal Wndmtx 1lyr [id number](150 Units) - [id number] - [id number] Implanted:Qty : 1 on 08/10/2024 by Lexie Aldridge MD at OR [facility] Left: Leg Upper [employer] [id number] 10/07/2025 [id number] / [id number] / [id number] Cytal Wndmtx 1lyr 7x10cm (70 Units) - [id number] - [id number] Implanted:Qty : 1 on 08/10/2024 by Lexie Aldridge MD at OR [facility] Left: Leg Upper [employer] [id number] 01/05/2026 [id number] / [id number] / [id number] documented as of this encounter Visit Diagnoses Diagnosis Pressure injury of left buttock, stage 1- Primary 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, face, and neck Ambulatory dysfunction documented in this encounter Advance Directives Documents on File Type Date Recorded Patient Sticker Hand Expl anation Advance Directives and Living [...] patient or by statute hierarchy) [facility] Adult Child Emergency Contact Care Teams Escapement Maker Relationship Specialty Start Date End Date Fuentes Ashton MD [address] [address] PCP - General Family Medicine 01/30/22 documented as of this encounter
--- OUTSIDE RECORDS SUMMARY | 2024-09-30 18:09 | External Medical Summary | Summary of Care ---
Author Name Unknown Organization [facility] Address [address] [facility] [place] [address] Phone [phone] Care Team Providers Care Software Sales Name Role Phone Fuentes Ashton MD Primary Care Provider [phone] Reason for Visit * Reason Onset Date Comments Advice 08/30/2024 Encounter Details Date Type Department Care Team (Late st Contact Info) Description 08/30/2024 Telephone [facility] 21 [facility] [place] [address] Fuentes Ashton MD 21 [place] [address] Advice Allergies Active Allergy Reactions Criticality [...] Release (PriLOSEC)Indicati ons: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 1 Each 11 4 Active Additional Information Patient not taking.Reported on 08/25/2024 Albuterol Sulfate (2.5 MG/3ML) 0.083% Inhalation Nebulization Solution (Proventil)Indicat ions:COPD, group C, by GOLD 2017 classification ([place] [...] mucinous neoplasm) 0 03/09/2018 Overview: MRI 02/23 intermediate frame tender (current) use 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 Steroid-induced diabetes [...] PL and AMP Hypertensive heart disease [facility] heart failure and stage 3 chronic kidney [...] mRNA, LNP-s, No Pre serve, 2-Dose Series ([employer]) 08/15/2021,01/31/2021,01/03/2021 COVID-19, LNP-s, No Preserve , Ruslan-sucrose, Ages 12+ (Pfizer) 03/19/2022 COVID-19, MRNA-LNP, 23-24, P F, 30 MCG/0.3 mL, 12 YRS AND ABOVE, IM ([employer]) 10/25/2023 Covid-19, Mrna, Lnp-s, Pf, B ivalent, 30 Mcg, IM, 12 yrs and above ([employer]) 2022 Pneumococcal Conjugate Vacc, 13 Valent (Prevnar) 01/21/2016 Pneumococcal Conjugate Vacci ne, 20-valent ([id number]) 07/19/2023 Pneumococcal Polysaccharide PPV23 (Pneumovax) 01/13/2011 RSV [...] encounter Miscellaneous Notes * Telephone Encounter - Gabriela Boone RN - 08/30/2024 1:21 PM EDT Confirmed pt's address and insurance with [facility]. Intake nurse says they typically try make [...] 08/31/2024 11:20 AM EDT Office Visit Nephrology, [address] [place] [address] Keisha Gunn MD [address] [place] [address] 09/01/2024 9:30 AM EDT [facility] [address] [place] [address] Shyla Valladares, [facility]-PAINTER INTERIOR FINISH [address] [place] [address] 09/01/2024 10:00 AM EDT Office Visit Otolaryngology/Head & Neck/Facial Plastic Surgery [address] [place] [address] Lexie Aldridge MD [address] [place] [address] 09/04/2024 11:00 AM EDT Hem/Onc Treatment Hematology/Oncology Treatment, [address] [address] [facility], Chair5 Hem Onc [address] [place] [address] 09/05/2024 10:00 AM EDT Office Visit Radiation Oncology, [address] [address] Mansoor Watson MD [address] [place] [address] 09/05/2024 11:00 AM EDT Documentation Radiation Oncology, [address] [address] Mansoor Watson MD [address] [place] [address] [facility], [address] Rad Onc [address] [place] [address] 09/15/2024 3:45 PM EST Office Visit Dental Medicine, [place] [address] [place] [address] Russel Caceres [facility] 100 [place] [facility] [place] [address] 10/09/2024 2:20 PM EST Office Visit Family [facility], [place] [address] [place] [phone] David Antunez MD [address] [place] [address] 11/14/2024 1:15 PM EST Office Visit MOHS Surgery [facility] [address] [place] [address] Supriya Fernandes MD 200 [facility] [place] [address] 12/21/2024 1:30 PM EST Office Visit Dermatology, Melissakim Desir [place] [address] Franko Joel 140 [place] [address] Malaika Guzman PA-C [address] [place] [phone] 01/22/2025 1:30 PM EDT PulmDiagnostic Pulmonary Function Lab [facility] [address] [address] [address], [address] [place] [address] 01/22/2025 2:00 PM EDT Office Visit Pulmonary Medicine Phu Dolan [place] [address] [address] [address] [phone] Dominguez Aguilar MD [address] [place] [address] 02/05/2025 10:00 AM EDT Office Visit Rheumatology, [facility] [address] [place] [address] Rafael Hernandez PA-C [address] [facility] [place] [address] 02/06/2025 1:30 PM EDT Office Visit Cardiology, [address] [place] [address] Cherry Warner PA-C [address] [place], [place] [phone] Scheduled Procedures Name Priority Associated Diagnoses Date/Ti [...] this encounter Medical Devices Implanted Type Area Highway Maintenance Technician Device Identifier Shelf Expiration Date Model / Serial / Lot Mesh Perfix Plug Lg [id number] - [id number] Implanted:Qty : 1 on 02/07/2019 by Jonathan Correia DO at OR [facility] Right: Groin CR BARD : DAVOL 09/04/2023 [id number] / / [id number] Cytal Wndmtx 1lyr [id number](150 Units) - [id number] - [id number] Implanted:Qty : 1 on 08/10/2024 by Lexie Aldridge MD [place] [facility] [place]: Leg Upper [employer] [id number] 10/07/2025 [id number] / [id number] / [id number] Cytal Wndmtx 1lyr 7x10cm (70 Units) - [id number] - [id number] Implanted:Qty : 1 on 08/10/2024 by Lexie Aldridge MD [place] [facility] Left: Leg Upper [employer] [id number] 01/05/2026 [id number] / [id number] / [id number] documented as of this encounter Advance Directives Documents on File Type Date 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
--- OUTSIDE RECORDS SUMMARY | 2024-09-30 18:09 | External Medical Summary | Summary of Care ---
Author Name Unknown Organization [facility] Address [address] [facility] [place] [address] Phone [phone] Care Team Providers Care Leasing Associate Name Role Phone Fuentes Ashton MD Primary Care Provider [phone] Reason for Visit * Reason Onset Date Comments Advice 08/30/2024 Encounter Details Date Type Department Care Team (Late st Contact Info) Description 08/30/2024 Telephone [facility] 21 [place] [address] Fuentes Ashton MD 21 [place] [address] Advice Allergies Active Allergy Reactions Criticality [...] Release (PriLOSEC)Indicati ons: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 08/03/2023 08/03/2023 Atherosclerosis of [place] co ronary artery without angina pectoris 02/01/2023 [...] PL and AMP Hypertensive heart disease [facility] heart failure and stage 3 chronic [...] mRNA, LNP-s, No Pre serve, 2-Dose Series ([employer]) 08/15/2021,01/31/2021,01/03/2021 COVID-19, LNP-s, No Preserve , Ruslan-sucrose, Ages 12+ (Pfizer) 03/19/2022 COVID-19, MRNA-LNP, 23-24, P F, 30 MCG/0.3 mL, 12 YRS AND ABOVE, IM ([employer]) 10/25/2023 Covid-19, Mrna, Lnp-s, Pf, B ivalent, 30 Mcg, IM, 12 yrs and above ([employer]) 2022 Pneumococcal Conjugate Vacc, 13 Valent (Prevnar) 01/21/2016 Pneumococcal Conjugate Vacci ne, 20-valent ([id number]) 07/19/2023 Pneumococcal Polysaccharide PPV23 (Pneumovax) 01/13/2011 RSV [...] encounter Miscellaneous Notes * Telephone Encounter - Deena Lau OSA - 08/30/2024 2:58 PM EDT [facility] calling requesting order to state in home PT /OT as well as the wound care is not considered jail as pt was directed to use Desitin please place new order to in home PT /OTas well as something more in depth about wound * Telephone Encounter - Gabriela Boone RN - 08/30/2024 1:21 PM EDT Confirmed pt's address and insurance with [facility]. Intake nurse says they typically try [...] 08/31/2024 11:20 AM EDT Office Visit Nephrology, [address] [address] Keisha Gunn MD [address] [place] [phone] 09/01/2024 9:30 AM EDT [facility] [address] [place] [address] Shyla Valladares, [facility]-DOOR TENDER [address] [place] [address] 09/01/2024 10:00 AM EDT Office Visit Otolaryngology/Head & Neck/Facial Plastic Surgery [address] [place], [place] [phone] Lexie Aldridge MD [address] [place] [address] 09/04/2024 11:00 AM EDT Hem/Onc Treatment Hematology/Oncology Treatment, [address] [address] [place], Chair5 Hem Onc [address] [place] [address] 09/05/2024 10:00 AM EDT Office Visit Radiation Oncology, [facility] 211 [place] [address] Mansoor Watson MD [address] [place] [address] 09/05/2024 11:00 AM EDT Documentation Radiation Oncology, [facility] [address] [place], [place] [phone] IovoliMansoor MD [address] [place] [address] [address], [address] Rad Onc [address] [place], [place] [phone] 09/15/2024 3:45 PM EST Office Visit Dental Medicine, [place] [address] [place] [address] Russel Caceres, [facility] [address] [place], [place] [phone] 10/09/2024 2:20 PM EST Office Visit [facility] 21 [place] [phone] David Antunez MD 21 [place] [address] 11/14/2024 1:15 PM EST Office Visit MOHS Surgery [facility] 200 [place] [address] Supriya Fernandes MD 200 [place] [address] 12/21/2024 1:30 PM EST Office Visit Dermatology, Melissa Desir [place] [address] [place] [address] [place] [address] Malaika Guzman PA-C [address] [place] [phone] 01/22/2025 1:30 PM EDT PulmDiagnostic Pulmonary Function Lab Ahmet Downing [address] [address] [address] [address], [address] Thang [place] [address] 01/22/2025 2:00 PM EDT Office Visit Pulmonary Medicine [facility] [address] [address] [address] [address] Domingeuz Aguilar MD [address] [facility] [place] [address] 02/05/2025 10:00 AM EDT Office Visit Rheumatology, [facility] 400 [place] [address] Rafael Hernandez PA-C [address] [facility] [address] 02/06/2025 1:30 PM EDT Office Visit Cardiology, [place] 400 [facility] [place] [address] Cherry Warner PA-C 400 [place] [address] Scheduled Procedures Name Priority Associated Diagnoses Date/Ti [...] this encounter Medical Devices Implanted Type Area Golf Cart Maker Device Identifier Shelf Expiration Date Model / Serial / Lot Mesh Perfix Plug Lg [id number] - [id number] Implanted:Qty : 1 on 02/07/2019 by Jonathan Correia DO at OR [facility] Right: Groin CR BARD : DAVOL 09/04/2023 [id number] / / [id number] Cytal Wndmtx 1lyr [id number](150 Units) - [id number] - [id number] Implanted:Qty : 1 on 08/10/2024 by Lexie Aldridge MD at OR [facility] Left: Leg Upper [employer] [id number] 10/07/2025 [id number] / [id number] / [id number] Cytal Wndmtx 1lyr 7x10cm (70 Units) - [id number] - [id number] Implanted:Qty : 1 on 08/10/2024 by Lexie Aldridge MD at OR [facility] Left: Leg Upper [employer] [id number] 01/05/2026 [id number] / [id number] / [id number] documented as of this encounter Advance Directives Documents on File Type Date Recorded 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
--- OUTSIDE RECORDS SUMMARY | 2024-09-30 18:09 | External Medical Summary | Summary of Care ---
Author Name Unknown Organization [facility] Address [address] [facility] [place] [address] Phone [phone] Care Team Providers Care Controller [place] Name Role Phone Fuentes Ashton MD Primary Care Provider +1 [phone] Reason for Visit * Reason Onset Date Comments Advice 08/30/2024 Encounter Details Date Type Department Care Team (Late st Contact Info) Description 08/30/2024 Telephone [facility] 21 [place] [address] Fuentes Ashton MD 21 [place] [address] Advice Allergies Active Allergy Reactions Criticality [...] Release (PriLOSEC)Indicati ons: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) Inhale 2 Puffs by mouth every 4 hours as needed for Shortness of Breath. 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 08/03/2023 08/03/2023 Atherosclerosis of [place] co ronary artery without angina pectoris 02/01/2023 [...] PL and AMP Hypertensive heart disease w [facility] heart failure and stage 3 [...] mRNA, LNP-s, No Pre serve, 2-Dose Series (tvCompass) 08/15/2021,01/31/2021,01/03/2021 COVID-19, LNP-s, No Preserve , Ruslan-sucrose, Ages 12+ (Pfizer) 03/19/2022 COVID-19, MRNA-LNP, 23-24, P F, 30 MCG/0.3 mL, 12 YRS AND ABOVE, IM ([facility]) 10/25/2023 Covid-19, Mrna, Lnp-s, Pf, B ivalent, 30 Mcg, IM, 12 yrs and above (tvCompass) 2022 Pneumococcal Conjugate Vacc, 13 Valent (Prevnar) 01/21/2016 Pneumococcal Conjugate Vacci ne, 20-valent ([id number]) 07/19/2023 Pneumococcal Polysaccharide PPV23 (Pneumovax) 01/13/2011 RSV [...] encounter Miscellaneous Notes * Addendum Note - Malaika Morales LPN - 08/30/2024 4:17 PM EDTAddended by: MALAIKA MORALES on: 08/30/2024 04:17 PM Modules accepted: Orders * Telephone Encounter - Malaika Morales LPN - 08/30/2024 4:17 PM EDT New home health referral pending * Telephone Encounter - Deena Lau OSA - 08/30/2024 2:58 PM EDT [facility] HH calling requesting order to state in home PT /OT as well as the wound care is not considered half-way as pt was directed to use Desitin please place new order to in home PT /OTas well as something more in depth about wound * Telephone Encounter - Gabriela Boone RN - 08/30/2024 1:21 PM EDT Confirmed pt's address and insurance with [facility]. Intake nurse says they typically try make home visit in 24 to 28 hours once referral is reviewed and case is accepted. * Telephone Encounter - Rachael Santos OSA - 08/30/2024 9:42 AM EDT Home health wants to verify patients address and she also wants to know about the CT insurance . Please call documented in this encounter Plan of Treatment Upcoming Encounters Date Type Department Care Team (Late st Contact Info) Description 08/31/2024 11:20 AM EDT Office Visit Nephrology, [address] [phone] Keisha Gunn MD [address] [place] [address] [phone] 09/01/2024 9:30 AM EDT [facility] [address] [place] [address] Shyla Valladares CCC-DRAPERY EXAMINER [address] [place] [address] 09/01/2024 10:00 AM EDT Office Visit Otolaryngology/Head & Neck/Facial Plastic Surgery [address] [place], [place] [phone] Lexie Aldridge MD [address] [place] [address] 09/04/2024 11:00 AM EDT Hem/Onc Treatment Hematology/Oncology Treatment, [facility] 400 [place] [address] [facility], Chair5 Hem Onc 400 [place] [address] 09/05/2024 10:00 AM EDT Office Visit Radiation Oncology, [facility] 211 [place] [address] IovolMansoor mills MD [address] [place] [phone] 09/05/2024 11:00 AM EDT Documentation Radiation Oncology, [facility] [address] [place] [address] IovolMansoor mills MD [address] [place] [phone] [facility], [address] Rad Onc 211 [place] [address] 09/15/2024 3:45 PM EST Office Visit Dental Medicine, [place] [address] [place] [address] Russel Caceres, [facility] [address] [place] [address] 10/09/2024 2:20 PM EST Office Visit [facility] 21 [facility] [place] [phone] David Antunez MD 21 [place] [address] 11/14/2024 1:15 PM EST Office Visit [facility] Surgery [facility] 200 [place] [address] Supriya Fernandes MD 200 [place] [address] 12/21/2024 1:30 PM EST Office Visit Dermatology, [address] [place] [address] [place] [address] Malaika Guzman PA-C [address] [place] [address] 01/22/2025 1:30 PM EDT PulmDiagnostic Pulmonary Function Lab [facility] [address] [facility] [place] [address] West, Pft [address] [place] [address] 01/22/2025 2:00 PM EDT Office Visit Pulmonary Medicine [facility] [place] [address] [facility] [place] [phone] Dominguez Aguilar MD [address] [facility] [place] [address] 02/05/2025 10:00 AM EDT Office Visit Rheumatology, [facility] 400 [place] [address] Rafael Hernandez PA-C 14[address] [facility] [place], [place] [address] 02/06/2025 1:30 PM EDT Office Visit Cardiology, [place] 400 [facility] [place] [address] Cherry Warner PA-C [address] [place] [address] [place], [place] [phone] Scheduled Procedures Name Priority Associated Diagnoses Date/Ti [...] this encounter Medical Devices Implanted Type Area Song Writer Device Identifier Shelf Expiration Date Model / Serial / Lot Mesh Perfix Plug Lg [id number] - [id number] Implanted:Qty : 1 on 02/07/2019 by Jonathan Correia DO at OR [facility] Right: Groin CR BARD : DAVOL 09/04/2023 [id number] / / [id number] Cytal Wndmtx 1lyr [id number](150 Units) - [id number] - [id number] Implanted:Qty : 1 on 08/10/2024 by Lexie Aldridge MD at [place] [facility] Left: Leg Upper [employer] [id number] 10/07/2025 [id number] / [id number] / [id number] Cytal Wndmtx 1lyr 7x10cm (70 Units) - [id number] - [id number] Implanted:Qty : 1 on 08/10/2024 by Lexie Aldridge MD at OR [facility] Left: Leg Upper [employer] [id number] 01/05/2026 [id number] / [id number] / [id number] documented as of this encounter Advance Directives Documents on File Type Date Recorded 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
--- OUTSIDE RECORDS SUMMARY | 2024-09-30 18:09 | External Medical Summary | Summary of Care ---
Author Name Unknown Organization [facility] Address [address] [place] [address] Phone [phone] Care Team Providers Care Adult Probation Officer Name Role Phone Fuentes Ashton MD Primary Care Provider [phone] Encounter Details Date Type Department Care Team (Late st Contact Info) Description 08/30/2024 12:30 PM EDT Scheduled Telephone Care Coordination and Integration [address] [place] [address] [facility] Cigar Packer And Shader [address] [place], [place] [phone] Allergies Active Allergy Reactions Criticality Noted Date [...] Release (PriLOSEC)Indicati ons:Gastroesophage al reflux disease without esophagitis,retirement (current) use of [...] Inhalation Aerosol Powder Breath ActivatedIndicatio ns:COPD, moderate ([facility]) Inhale 2 Puffs by mouth every 4 hours as needed for Shortness of Breath. 1 Each 11 4 Active Additional Information Patient not taking.Reported on 08/25/2024 Albuterol Sulfate (2.5 MG/3ML) 0.083% Inhalation Nebulization Solution (Proventil)Indicat ions:COPD, group C, by GOLD 2017 classification ([facility]) Inhale 1 Vial via nebulizer every [...] from 2018 Atherosclerotic heart diseas e of [place] coronary artery without angina pectoris 05/31/2020 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) 0 03/09/2018 Overview: MRI 02/23 retirement (current) use of systemic [...] chronic kidney disease 08/03/2023 08/03/2023 Atherosclerosis of [place] co ronary artery without angina pectoris 02/01/2023 [...] mRNA, LNP-s, No Pre serve, 2-Dose Series (Fund[facility]) 08/15/2021,01/31/2021,01/03/2021 COVID-19, LNP-s, No Preserve , Ruslan-sucrose, Ages 12+ (Pfizer) 03/19/2022 COVID-19, MRNA-LNP, 23-24, P F, 30 MCG/0.3 mL, 12 YRS AND ABOVE, IM ([facility]) 10/25/2023 Covid-19, Mrna, Lnp-s, Pf, B ivalent, 30 Mcg, IM, 12 yrs and above ([employer]) 2022 Pneumococcal Conjugate Vacc, 13 Valent (Prevnar) 01/21/2016 Pneumococcal Conjugate Vacci ne, 20-valent ([id number]) 07/19/2023 Pneumococcal Polysaccharide PPV23 (Pneumovax) 01/13/2011 RSV [...] Boone RN - 08/30/2024 3:09 PM EDT Vehicle Controls EngineerLinux Unix Engineer: T/C to Karen to leave her know that Home Health Referral was sent to [facility]. Karen stated that she and Kennedy wrapped additional bandage around dressing. Karen stated that pt is still taking Doxycycline to finish out medication that was given to them. Karen stated that pt is tolerating antibiotic well. Karen has CM number to call if pt develops fever, green drainage, redness or warmth on lower leg. Review of Systems: Review of Systems Constitutional: Negative for activity change, appetite change and fever. Skin: Positive for wound (Lower Leg Wound continues to bleed, but no drainage noted on bandage. Evaand pt continue to wrap leg to keep it clean and dry. Has follow up in [place] 09/01/24.). * [facility] - 08/30/2024 1:02 PM EDT Telemedicine visit: No [facility] Cigar Packer And Shader (MANE) documentation: CHW follow up phone call [...] be tough for them to get to [place] because they are 2 hours away. Karen denied any signs of infection at the site and stated that it is just blood. Karen denied any signs of fever. Karen and patient agreeable to follow up phone call in 1 week. Bj Scott [facility] Worker Lead [facility] [phone] documented in this encounter Plan of Treatment Upcoming Encounters Date Type Department Care Team (Late st Contact Info) Description 08/31/2024 11:20 AM EDT Office Visit Nephrology, [address] [address] Keisha Gunn MD [address] [place] [address] 09/01/2024 9:30 AM EDT Rehab Services Voice Lab, [place] [address] [place] [address] Shyla Valladares CCC-CERTIFIED TRAVEL COUNSELOR [address] [place] [address] 09/01/2024 10:00 AM EDT Office Visit Otolaryngology/Head & Neck/Facial Plastic Surgery [address] [place] [address] Lexie Aldridge MD [address] [place] [address] 09/04/2024 11:00 AM EDT Hem/Onc Treatment Hematology/Oncology Treatment, [facility] 400 [place] [address] [facility], Chair5 Hem Onc [address] [place] [address] 09/05/2024 10:00 AM EDT Office Visit Radiation Oncology, [facility] [address] [place] [address] Mansoor Watson MD [address] [place] [phone] 09/05/2024 11:00 AM EDT Documentation Radiation Oncology, [facility] [address] [place] [address] Mansoor Watson MD [address] [place] [phone] [facility], [facility] View [address] Rad Onc [address] [place] [address] 09/15/2024 3:45 PM EST Office Visit Dental Medicine, [place] [address] [place] [address] Russel Caceres, [facility] [address] [place] [address] 10/09/2024 2:20 PM EST Office Visit [facility] [phone] David Antunez MD 21 [place] [address] 11/14/2024 1:15 PM EST Office Visit [facility] Surgery [place] [address] [facility], [place] [address] Supriya Fernandes MD 200 [facility], [place] [address] 12/21/2024 1:30 PM EST Office Visit Dermatology, [address] [place] [address] [place] [address] Malaika Guzman PA-C [address] [place] [address] 01/22/2025 1:30 PM EDT PulmDiagnostic Pulmonary Function Lab [facility] [address] [place] [address] West, Pft 132 [facility] [place], [place] [address] 01/22/2025 2:00 PM EDT Office Visit Pulmonary Medicine [facility] [address] [place] [phone] Dominguez Aguilar MD 217 S [facility] [place] [address] 02/05/2025 10:00 AM EDT Office Visit Rheumatology, [address] [address] Rafael Hernandez, PAJackiC [address] [place] [address] [place] [address] 02/06/2025 1:30 PM EDT Office Visit Cardiology, [address] [place] [address] Cherry Warner, RAJEEV [address] [place] [address] [place] [address] Scheduled Procedures Name Priority Associated Diagnoses Date/Ti [...] this encounter Medical Devices Implanted Type Area Men'S Golf Coach Device Identifier Shelf Expiration Date Model / Serial / Lot Mesh Perfix Plug Lg [id number] - [id number] Implanted:Qty : 1 on 02/07/2019 by Jonathan Correia DO at OR [facility] Right: Groin CR BARD : DAVOL 09/04/2023 [id number] / / [id number] Cytal Wndmtx 1lyr [id number](150 Units) - [id number] - [id number] Implanted:Qty : 1 on 08/10/2024 by Lexie Aldridge MD at OR [facility] Left: Leg Upper [employer] [id number] 10/07/2025 [id number] / [id number] / [id number] Cytal Wndmtx 1lyr 7x10cm (70 Units) - [id number] - [id number] Implanted:Qty : 1 on 08/10/2024 by Lexie Aldridge MD at OR [facility] Left: Leg Upper [employer] [id number] 01/05/2026 [id number] / [id number] / [id number] documented as of this encounter Advance Directives Documents on File Type Date Recorded 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 Adult Child Emergency Contact Care Teams Adult Probation Officer Relationship Specialty Start Date End Date Fuentes Ashton MD 21 [place] [phone] PCP - General Family Medicine 01/30/22 documented as of this encounter
--- OUTSIDE RECORDS SUMMARY | 2024-09-30 18:09 | External Medical Summary | Summary of Care ---
Author Name Unknown Organization [facility] Address [address] [facility] [place] [address] Phone [phone] Care Team Providers Care Ms Sql Developer Name Role Phone Fuentes Ashton MD Primary Care Provider [phone] [phone] Reason for Visit * Reason Onset Date Comments Advice 08/30/2024 Encounter Details Date Type Department Care Team (Late st Contact Info) Description 08/30/2024 Telephone [facility] 21 [facility] [place] [place] [address] Fuentes Ashton MD 21 [place] [address] Advice Allergies Active Allergy Reactions Criticality [...] Release (PriLOSEC)Indicati ons:Gastroesophage al reflux disease without esophagitis,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 1 Each 11 4 Active Additional Information Patient not taking.Reported on 08/25/2024 Albuterol Sulfate (2.5 MG/3ML) 0.083% Inhalation Nebulization Solution (Proventil)Indicat ions:COPD, group C, by GOLD 2017 classification ([facility]) Inhale 1 Vial via nebulizer [...] PL and AMP Hypertensive heart disease w [facility] heart failure and stage 3 chronic [...] mRNA, LNP-s, No Pre serve, 2-Dose Series ([facility]) 08/15/2021,01/31/2021,01/03/2021 COVID-19, LNP-s, No Preserve , Ruslan-sucrose, Ages 12+ (Pfizer) 03/19/2022 COVID-19, MRNA-LNP, 23-24, P F, 30 MCG/0.3 mL, 12 YRS AND ABOVE, IM ([facility]) 10/25/2023 Covid-19, Mrna, Lnp-s, Pf, B ivalent, 30 Mcg, IM, 12 yrs and above ([facility]) 2022 Pneumococcal Conjugate Vacc, 13 Valent (Prevnar) 01/21/2016 Pneumococcal Conjugate Vacci ne, 20-valent ([id number]) 07/19/2023 Pneumococcal Polysaccharide PPV23 (Pneumovax) 01/13/2011 RSV [...] Lau OSA - 08/30/2024 2:58 PM EDT [facility] calling requesting order to state in home PT /OT as well as the wound care is not considered residential as pt was directed to use Desitin please place new order to in home PT /OTas well as something more in depth about wound * Telephone Encounter - Gabriela Boone RN - 08/30/2024 1:21 PM EDT Confirmed pt's address and insurance with [facility]. Intake nurse says they typically try [...] 11:20 AM EDT Office Visit Nephrology, [address] [address] Keisha Gunn MD [address] [place] [phone] 09/01/2024 9:30 AM EDT [facility] [address] [place] [address] Shyla Valladares, [facility]-PACKAGING MANAGER [address] [place] [address] 09/01/2024 10:00 AM EDT Office Visit Otolaryngology/Head & Neck/Facial Plastic Surgery [address] [place], [place] [address] Lexie Aldridge MD [address] [place] [address] 09/04/2024 11:00 AM EDT Hem/Onc Treatment Hematology/Oncology Treatment, [address] [address] Gl, Chair5 Hem Onc [address] [place] [address] 09/05/2024 10:00 AM EDT Office Visit Radiation Oncology, [facility] 211 [place] [address] Mansoor [place] MD [address] [place] [phone] 09/05/2024 11:00 AM EDT Documentation Radiation Oncology, [facility] [address] [place], [place] [phone] IovoliMansoor MD [address] [place] [address] Gl, [address] Rad Onc [address] [place], [place] [phone] 09/15/2024 3:45 PM EST Office Visit Dental Medicine, [place] [address] [place] [address] Russel Caceres, [facility] [address] [place], [place] [phone] 10/09/2024 2:20 PM EST Office Visit [facility] 21 [place] [phone] David Antunez MD 21 [place] [address] 11/14/2024 1:15 PM EST Office Visit [facility] Surgery [facility] 200 [place] [address] Supriya Fernandes MD 200 [place] [address] 12/21/2024 1:30 PM EST Office Visit Dermatology, [address] [place] [address] [place] [address] Malaika Guzman PA-C 27 Melissa [place] or[place] [phone] 01/22/2025 1:30 PM EDT PulmDiagnostic Pulmonary Function Lab Ahmet Downing [address] [place] [address] West, P[address] Sonal[address] Th[address] [place] [address] 01/22/2025 2:00 PM EDT Office Visit Pulmonary Medicine [facility] [address] [place] [address] Dominguez Aguilar MD 217 S [facility] [place] [address] 02/05/2025 10:00 AM EDT Office Visit Rheumatology, [facility] 400 [place] [address] Rafael Hernandez PA-C 9440 [facility] [address] 02/06/2025 1:30 PM EDT Office Visit Cardiology, [place] 400 [facility] [place] [address] Cherry Warner PA-C 400 [place] [address] Scheduled Procedures Name Priority Associated Diagnoses Date/Ti [...] this encounter Medical Devices Implanted Type Area Telephone Sales Agent Device Identifier Shelf Expiration Date Model / Serial / Lot Mesh Perfix Plug Lg [id number] - [id number] Implanted:Qty : 1 on 02/07/2019 by Jonathan Correia DO at OR [facility] Right: Groin CR BARD : DAVOL 09/04/2023 [id number] / / [id number] Cytal Wndmtx 1lyr [id number](150 Units) - [id number] - [id number] Implanted:Qty : 1 on 08/10/2024 by Lexie Aldridge MD [place] [facility] Left: Leg Upper [employer] [id number] 10/07/2025 [id number] / [id number] / [id number] Cytal Wndmtx 1lyr 7x10cm (70 Units) - [id number] - [id number] Implanted:Qty : 1 on 08/10/2024 by Lexie Aldridge MD [place] [facility] Left: Leg Upper [employer] [id number] 01/05/2026 [id number] / [id number] / [id number] documented as of this encounter Advance Directives Documents on File Type Date Recorded 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
--- OUTSIDE RECORDS SUMMARY | 2024-09-30 18:10 | External Medical Summary | Summary of Care ---
Author Name Unknown Organization [facility] Address [address] [facility] [place] [address] Phone [phone] Care Team Providers Care Sheet Rock Sander Name Role Phone Fuentes Ashton MD Primary Care Provider [phone] Encounter Details Date Type Department Care Team (Late st Contact Info) Description 08/28/2024 Telephone [facility] 21 [facility] [place] [address] Devan Narayanan MD 21 [place] [address] Allergies Active Allergy Reactions Criticality Noted Date Comments Aztreonam Hives Medium 10/11/2019 Cephalosporins Rash 05/24/2017 Tolerated cefazolin during August 2024 admission Chlorhexidine Hives,Rash High 01/02/2022 Full body red rash; "skin peeled completely off" Ciprofloxacin Diarrhea Medium 01/28/2015 Iodinated Contrast Media Abdominal pain High 019 Acute kidney failure Levofloxacin Rash Low 07/28/2019 documented as of this encounter (statuses as of 08/29/2024) Medications Medication Sig Dispensed Refills Start Date [...] Inhalation Aerosol Powder Breath ActivatedIndication s:COPD, moderate ([facility]) Inhale 2 Puffs by mouth every 4 hours as needed for Shortness of Breath. 1 Each 11 07/06/2024 Active Additional Information Patient not taking.Reported on 08/25/2024 Albuterol Sulfate (2.5 MG/3ML) 0.083% Inhalation Nebulization Solution (Proventil)Indicati ons:COPD, group C, by GOLD 2017 classification ([facility]) Inhale 1 Vial via nebulizer every 4 [...] 6 weeks 170 g 3 07/24/2024 Active Additional Information Patient not taking.Reported on 08/25/2024 Aquaphor External Ointment Apply topically to affected area 3 times a day. Apply to neck three times daily 396 g 08/22/2024 Active Folic Acid 1 MG Oral Tablet Take 1 Tablet by mouth in the morning. 30 Tablet 08/23/2024 09/22/20 24 Active Vitamin B-12 1000 MCG Oral Tablet (Cyanocobalamin) Take 1 Tablet by mouth in the morning. 30 Tablet 08/23/2024 09/22/20 24 Active Doxycycline Monohydrate 100 MG Oral CapsuleIndications: Squamous cell carcinoma of neck Take 1 Capsule by mouth in the morning and 1 Capsule before bedtime. Do all this for 7 days. 14 Capsule 08/25/2024 09/01/20 24 Active Zinc Oxide 40 % External Paste (Desitin)Indication s:Pressure injury of left buttock, stage 1 Apply to buttocks as needed. 57 g 08/25/2024 Active Hospital, Clinic, or Other Facility Administered [...] as of this encounter (statuses as of 08/29/2024) Active Problems Problem Noted Date Diagnosed Date [...] from 2018 Atherosclerotic heart diseas e of hoopa coronary artery without angina pectoris 05/31/2020 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) 0 03/09/2018 Overview: MRI 02/23 half-way (current) use 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 Steroid-induced diabetes [...] as of this encounter (statuses as of 08/29/2024) Resolved Problems Problem Noted Date Diagnosed Date [...] chronic kidney disease 08/03/2023 08/03/2023 Atherosclerosis of hoopa co ronary artery without angina pectoris 02/01/2023 [...] as of this encounter (statuses as of 08/29/2024) Immunizations Name Administration Dates Next Due COVID-19 mRNA, LNP-s, No Pre serve, 2-Dose Series ([employer]) 08/15/2021,01/31/2021,01/03/2021 COVID-19, LNP-s, No Preserve , Ruslan-sucrose, Ages 12+ ([employer]) 03/19/2022 COVID-19, MRNA-LNP, 23-24, P F, 30 MCG/0.3 mL, 12 YRS AND ABOVE, IM ([facility] 10/25/2023 Covid-19, Mrna, Lnp-s, Pf, B ivalent, 30 Mcg, IM, 12 yrs and above ([employer]) 2022 Pneumococcal Conjugate Vacc, 13 Valent (Prevnar) 01/21/2016 Pneumococcal Conjugate Vacci ne, 20-valent ([id number]) 07/19/2023 Pneumococcal Polysaccharide PPV23 (Pneumovax) 01/13/2011 RSV [...] No 08/23/2024 Does the household have a [facility] medical center[facility] source of income? (Household - for [...] EDT Pt can be scheduled either between [id number] or 12:00 and 2:00, only 2 Infed [...] iron infusion yet. Pt's made aware that disease case manager would look into manner. Spoke with law firm receptionist at [facility] Infusion Center who stated that order need [...] 08/31/2024 11:20 AM EDT Office Visit Nephrology, [address] [address] Keisha Gunn MD [address] [place] [address] 09/01/2024 10:00 AM EDT Office Visit Otolaryngology/Head & Neck/Facial Plastic Surgery [address] [place] [address] Lexie Aldridge MD [facility] [place] [address] 09/05/2024 10:00 AM EDT Office Visit Radiation Oncology, [address] [address] Mansoor Watson MD [address] [place] [phone] 09/05/2024 11:00 AM EDT Documentation Radiation Oncology, [address] [address] Mansoor Watson MD [address] [place] [phone] [facility] Rad Onc [address] [place] [address] 09/15/2024 3:45 PM EST [facility] [address] [place] [address] Russel Caceres, DMD 100 [address] [facility], [place] [address] 10/09/2024 2:20 PM EST Office Visit [facility] [phone] David Antunez MD 21 [facility] [place] [address] 11/14/2024 1:15 PM EST Office Visit MOHS Surgery [facility] 200 [place] [address] Supriya Fernandes MD 200 [place] [address] 12/21/2024 1:30 PM EST Office Visit Dermatology, [address] [place] 27 Melissa [facility] [address] [place] [address] Malaika Guzman PA-C 27 [address] [place] [address] 01/22/2025 1:30 PM EDT PulmDiagnostic Pulmonary Function Lab [facility] [address] [facility] [place] [address] [address], [address] [place] [address] 01/22/2025 2:00 PM EDT Office Visit Pulmonary Medicine [facility] [address] [facility] [place] [phone] Dominguez Aguilar MD [address] [facility] [place] [address] 02/05/2025 10:00 AM EDT Office Visit Rheumatology, [address] [place] [phone] Rafael Hernandez, PA-C [address] [employer] [place], [place] [address] 02/06/2025 1:30 PM EDT Office Visit Cardiology, [place] [address] [place] [address] Cherry Warner PA-C [address] [place] [phone] Scheduled Procedures Name Priority Associated Diagnoses Date/Ti [...] this encounter Medical Devices Implanted Type Area Ophthalmologist Device Identifier Shelf Expiration Date Model / Serial / Lot Mesh Perfix Plug Lg [id number] - [id number] Implanted:Qty : 1 on 02/07/2019 by Jonathan Correia DO at OR [facility] Right: Groin CR BARD : DAVOL 09/04/2023 [id number] / / [id number] Cytal Wndmtx 1lyr [id number](150 Units) - [id number] - [id number] Implanted:Qty : 1 on 08/10/2024 by Lexie Aldridge MD at OR [facility] Left: Leg Upper [employer] [id number] 10/07/2025 [id number] / [id number] / [id number] Cytal Wndmtx 1lyr 7x10cm (70 Units) - [id number] - [id number] Implanted:Qty : 1 on 08/10/2024 by Lexie Aldridge MD at OR [facility] Left: Leg Upper [employer] [id number] 01/05/2026 [id number] / [id number] / [id number] documented as of this encounter Visit Diagnoses Diagnosis Iron deficiency anemia, unspecified iron deficiency anemia type- Primary documented in this encounter Advance Directives Documents on File Type Date 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
--- OUTSIDE RECORDS SUMMARY | 2024-09-30 18:10 | External Medical Summary | Summary of Care ---
Author Name Unknown Organization [facility] Address [address] [facility] [place] [address] Phone [phone] Care Team Providers Care Tree Surgeon Name Role Phone Fuentes Ashton MD Primary Care Provider [phone] Encounter Details Date Type Department Care Team (Late st Contact Info) Description 08/28/2024 Telephone [facility] 21 [facility] [place] [address] Devan Narayanan MD 21 [place] [address] Allergies Active Allergy Reactions Criticality [...] Inhalation Aerosol Powder Breath ActivatedIndication s:COPD, moderate ([facility]) Inhale 2 Puffs by mouth every 4 hours as needed for Shortness of Breath. 1 Each 11 07/06/2024 Active Additional Information Patient not taking.Reported on 08/25/2024 Albuterol Sulfate (2.5 MG/3ML) 0.083% Inhalation Nebulization Solution (Proventil)Indicati ons:COPD, group C, by GOLD 2017 classification ([facility]) Inhale 1 Vial via nebulizer [...] mucinous neoplasm) 0 03/09/2018 Overview: MRI 02/23 custodial (current) use 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 Steroid-induced diabetes [...] mRNA, LNP-s, No Pre serve, 2-Dose Series ([employer]) 08/15/2021,01/31/2021,01/03/2021 COVID-19, LNP-s, No Preserve , Ruslan-sucrose, Ages 12+ ([employer]) 03/19/2022 COVID-19, MRNA-LNP, 23-24, P F, 30 MCG/0.3 mL, 12 YRS AND ABOVE, IM ([facility] 10/25/2023 Covid-19, Mrna, Lnp-s, Pf, B ivalent, 30 Mcg, IM, 12 yrs and above ([employer]) 2022 Pneumococcal Conjugate Vacc, 13 Valent (Prevnar) 01/21/2016 Pneumococcal Conjugate Vacci ne, 20-valent ([id number]) 07/19/2023 Pneumococcal Polysaccharide PPV23 (Pneumovax) 01/13/2011 RSV [...] iron infusion yet. Pt's made aware that field case manager would look into manner. Spoke with retail center receptionist at [facility] Infusion Center who stated that order [...] 08/31/2024 11:20 AM EDT Office Visit Nephrology, [facility] [address] [place] [address] Keisha Gunn MD 400 [place] [address] 09/01/2024 10:00 AM EDT Office Visit Otolaryngology/Head & Neck/Facial Plastic Surgery [address] [place] [address] Lexie Aldridge MD [address] [place] [address] 09/05/2024 10:00 AM EDT Office Visit Radiation Oncology, [address] [address] Mansoor Watson MD [address] [place] [phone] 09/05/2024 11:00 AM EDT Documentation Radiation Oncology, [address] [address] Mansoor Watson MD [address] [place] [phone] [facility] [address] Rad Onc [address] [place] [address] 09/15/2024 3:45 PM EST Office Visit Dental Medicine, [place] [address] [place] [address] Russel Caceres, JESSICA [address] [place] [address] 10/09/2024 2:20 PM EST Office Visit [facility] [address] [place] [phone] David Antunez MD 21 [place] [address] 11/14/2024 1:15 PM EST Office Visit MOHS Surgery [facility] 200 [facility], [place] [address] Supriya Fernandes MD 200 [place] [address] 12/21/2024 1:30 PM EST Office Visit Dermatology, Melissa Des[place] [address] Melissa [address] [place] [address] Malaika Guzman PA-C 27 [address] [place] [address] 01/22/2025 1:30 PM EDT PulmDiagnostic Pulmonary Function Lab [facility] [address] [place] [address] [address], [address] [facility] [place] [address] 01/22/2025 2:00 PM EDT Office [facility] [place] [address] [place] [phone] Dominguez Aguilar MD [address] [facility] [place] [address] 02/05/2025 10:00 AM EDT Office Visit Rheumatology, [address], [place] [address] Rafael Hernandez PAJackiC 0100 [place] [address] 02/06/2025 1:30 PM EDT Office Visit Cardiology, [address] [place] [address] Cherry Warner PA-C [address] [place] [address] [place] [address] Scheduled Procedures Name Priority Associated Diagnoses Date/Ti [...] this encounter Medical Devices Implanted Type Area Music Professionals Device Identifier Shelf Expiration Date Model / Serial / Lot Mesh Perfix Plug Lg [id number] - [id number] Implanted:Qty : 1 on 02/07/2019 by Jonathan Correia DO at OR [facility] Right: Groin CR BARD : DAVOL 09/04/2023 [id number] / / [id number] Cytal Wndmtx 1lyr [id number](150 Units) - [id number] - [id number] Implanted:Qty : 1 on 08/10/2024 by Lexie Aldrideg MD at OR [facility] Left: Leg Upper [employer] [id number] 10/07/2025 [id number] / [id number] / [id number] Cytal Wndmtx 1lyr 7x10cm (70 Units) - [id number] - [id number] Implanted:Qty : 1 on 08/10/2024 by Lexie Aldridge MD at OR [facility] Left: Leg Upper [employer] [id number] 01/05/2026 [id number] / [id number] / [id number] documented as of this encounter Visit Diagnoses Diagnosis Iron deficiency anemia, unspecified iron deficiency anemia type- Primary documented in this encounter Advance Directives Documents on File Type Date Recorded Patient Operations [place] Expl anation Advance Directives and Living Will [...] statute hierarchy) [facility] Adult Child Emergency Contact Care Teams Tree Surgeon Relationship Specialty Start Date End Date Fuentes Ashton MD 21 [place] [address] PCP - General Family Medicine 01/30/22 documented as of this encounter
--- OUTSIDE RECORDS SUMMARY | 2024-09-30 18:10 | External Medical Summary | Summary of Care ---
Author Name Unknown Organization [facility] Address [address] [place] [address] Phone [phone] Care Team Providers Care Finished Stock Inspector Name Role Phone Fuentes Ashton MD Primary Care Provider [phone] Reason for Visit * Reason Onset Date Comments Scheduling 08/30/2024 INFeD Encounter Details Date Type Department Care Team (Late st Contact Info) Description 08/30/2024 Telephone Hematology/Oncology, [facility] 400 [place], [place] [phone] Devan Garcia MD 21 [place] [address] Scheduling (INFeD) Allergies Active Allergy Reactions Criticality Noted Date [...] Release (PriLOSEC)Indicatio ns:Gastroesophageal reflux disease without esophagitis,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 Take by [...] from 2018 Atherosclerotic heart diseas e of [place] coronary artery without angina pectoris 05/31/2020 Nuclear [...] neoplasm) 0 03/09/2018 Overview: MRI 02/23 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 08/03/2023 08/03/2023 Atherosclerosis of [place] tribes co ronary artery without angina pectoris 02/01/2023 [...] PL and AMP Hypertensive heart disease w [facility] heart failure and stage 3 chronic kidney [...] mRNA, LNP-s, No Pre serve, 2-Dose Series ([employer]) 08/15/2021,01/31/2021,01/03/2021 COVID-19, LNP-s, No Preserve , Ruslan-sucrose, Ages 12+ ([employer]) 03/19/2022 COVID-19, MRNA-LNP, 23-24, P F, 30 MCG/0.3 mL, 12 YRS AND ABOVE, IM ([facility]) 10/25/2023 Covid-19, Mrna, Lnp-s, Pf, B ivalent, 30 Mcg, IM, 12 yrs and above ([employer]) 2022 Pneumococcal Conjugate Vacc, 13 Valent (Prevnar) 01/21/2016 Pneumococcal Conjugate Vacci ne, 20-valent ([id number]) 07/19/2023 Pneumococcal Polysaccharide PPV23 (Pneumovax) 01/13/2011 RSV [...] encounter Miscellaneous Notes * Telephone Encounter - Ekaterina Sorenson OSA - 08/30/2024 8:45 AM EDT Pt aware of date, time, & location. 09/04 * Telephone Encounter - Ivy Hansen LPN - 08/30/2024 8:18 AM EDT Please schedule INFeD - 3 hours [place] 2 per day - 1 between 8-10am 1 between 12-2pm documented in this encounter Plan of Treatment Upcoming Encounters Date Type Department Care Team (Late st Contact Info) Description 08/31/2024 11:20 AM EDT Office Visit Nephrology, [address] [address] Keisha Gunn MD [address] [place] [address] 09/01/2024 10:00 AM EDT Office Visit Otolaryngology/Head & Neck/Facial Plastic Surgery [address] [place] [address] Lexie Aldridge MD [address] [place] [address] 09/04/2024 11:00 AM EDT Hem/Onc Treatment Hematology/Oncology Treatment, [address] [address] [facility], Chair5 Hem Onc [address] [place] [address] 09/05/2024 10:00 AM EDT Office Visit Radiation Oncology, [address] [address] Mansoor Watson MD [address] [place] [address] 09/05/2024 11:00 AM EDT Documentation Radiation Oncology, [address] [address] Mansoor Watson MD [address] [place] [phone] [facility], [facility] [address] Rad Onc [address] [place] [address] 09/15/2024 3:45 PM EST Office Visit Dental Medicine, [facility] [address] [place] [address] Russel Caceres DMD [address] [place] [address] 10/09/2024 2:20 PM EST Office Visit [facility] [place] [address] [place] [phone] David Antunez MD [address] [place] [address] 11/14/2024 1:15 PM EST Office Visit MOHS Surgery [facility] [place] [address] [place], [place] [address] Supriya Fernandes MD [address] [place] [place] [address] 12/21/2024 1:30 PM EST Office Visit Dermatology, Melissa Desir [place] 27 Melissa Franko [facility] 140 [place] [address] Malaika Guzman PA-C 27 [place] [address] 01/22/2025 1:30 PM EDT PulmDiagnostic Pulmonary Function Lab [facility] [address] [place] [address] [address], [address] [facility] [place] [address] 01/22/2025 2:00 PM EDT Office Visit Pulmonary Medicine [facility] [place] [address] [place] [phone] Dominguez Aguilar MD [address] [place] [address] 02/05/2025 10:00 AM EDT Office Visit Rheumatology, [address], [place] [address] Rafael Hernandez, PA-C 3[address] [facility] [place] [address] 02/06/2025 1:30 PM EDT Office Visit Cardiology, [place] [address] [place] [address] Cherry Warner PA-C 400 [place] [address] Scheduled Procedures Name Priority Associated Diagnoses Date/Ti [...] this encounter Medical Devices Implanted Type Area Hotel Or Motel Manager Device Identifier Shelf Expiration Date Model / Serial / Lot Mesh Perfix Plug Lg [id number] - [id number] Implanted:Qty : 1 on 02/07/2019 by Jonathan Correia DO at OR [facility] Right: Groin CR BARD : DAVOL 09/04/2023 [id number] / / [id number] Cytal Wndmtx 1lyr [id number](150 Units) - [id number] - [id number] Implanted:Qty : 1 on 08/10/2024 by Lexie Aldridge MD at [place] [facility] Left: Leg Upper [employer] [id number] 10/07/2025 [id number] / [id number] / [id number] Cytal Wndmtx 1lyr 7x10cm (70 Units) - [id number] - [id number] Implanted:Qty : 1 on 08/10/2024 by Lexie Aldridge MD at [place] [facility] Left: Leg Upper [employer] [id number] 01/05/2026 [id number] / [id number] / [id number] documented as of this encounter Advance Directives Documents on File Type Date Recorded Patient Family And Marriage Counsellor Expl anation Advance Directives and Living Will [...] statute hierarchy) [facility] Adult Child Emergency Contact Care Teams Finished Stock Inspector Relationship Specialty Start Date End Date Fuentes Ashton MD 21 [place] [address] PCP - General Family Medicine 01/30/22 documented as of this encounter
--- OUTSIDE RECORDS SUMMARY | 2024-09-30 18:10 | External Medical Summary | Summary of Care ---
Author Name Unknown Organization [facility] Address [address] [place] [address] Phone [phone] Care Team Providers Care Transactional Paralegal Name Role Phone Fuentes Ashton MD Primary Care Provider [phone] Encounter Details Date Type Department Care Team (Late st Contact Info) Description 08/30/2024 12:30 PM EDT Scheduled Telephone Care Coordination and Integration [address] [place] [address] Jonah Scott [facility] Driver [address], [place] [phone] Allergies Active Allergy Reactions Criticality Noted Date [...] Delayed Release (PriLOSEC)Indicatio ns:Gastroesophageal reflux disease without esophagitis,care home (current) use [...] Inhalation Aerosol Powder Breath ActivatedIndication s:COPD, moderate ([facility]) Inhale 2 Puffs by mouth every 4 hours as needed for Shortness of Breath. 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 08/03/2023 08/03/2023 Atherosclerosis of [place] co ronary artery without angina pectoris 02/01/2023 [...] mRNA, LNP-s, No Pre serve, 2-Dose Series (Pfizer) 08/15/2021,01/31/2021,01/03/2021 COVID-19, LNP-s, No Preserve , Ruslan-sucrose, Ages 12+ (Pfizer) 03/19/2022 COVID-19, MRNA-LNP, 23-24, P F, 30 MCG/0.3 mL, 12 YRS AND ABOVE, IM (PFIZER-Comirnat) 10/25/2023 Covid-19, Mrna, Lnp-s, Pf, B ivalent, 30 Mcg, IM, 12 yrs and above (Pfizer) 2022 Pneumococcal Conjugate Vacc, 13 Valent (Prevnar) 01/21/2016 Pneumococcal Conjugate Vacci ne, 20-valent ([id number]) 07/19/2023 Pneumococcal Polysaccharide PPV23 (Pneumovax) 01/13/2011 RSV [...] Progress Notes * Jonah Scott [facility] - 08/30/2024 1:02 PM EDT Telemedicine visit: No [facility] (MANE) documentation: CHW follow up phone call [...] be tough for them to get to [place] because they are 2 hours away. Karen denied any signs of infection at the site and stated that it is just blood. Karen denied any signs of fever. Karen and patient agreeable to follow up phone call in 1 week. Bj Scott [facility] Worker Lead CARLEE - Ahmet [phone] documented in this encounter Plan of Treatment Upcoming Encounters Date Type Department Care Team (Late st Contact Info) Description 08/31/2024 11:20 AM EDT Office Visit Nephrology, [address] [address] Keisha Gunn MD [address] [place] [address] 09/01/2024 9:30 AM EDT [facility] [address] [place] [address] Shyla Valladares, [facility] [address] [place] [address] 09/01/2024 10:00 AM EDT Office Visit Otolaryngology/Head & Neck/Facial Plastic Surgery [address] [place] [address] Lexie Aldridge MD [address] [place] [address] 09/04/2024 11:00 AM EDT Hem/Onc Treatment Hematology/Oncology Treatment, [address] [address] Gl, Chair5 Hem Onc [address] [place] [address] 09/05/2024 10:00 AM EDT Office Visit Radiation Oncology, [address] [address] Mansoor Watson MD [address] [place] [phone] 09/05/2024 11:00 AM EDT Documentation Radiation Oncology, [address] [address] Mansoor Watson MD [address] [place] [phone] [facility], [address] Rad Onc [address] [place], [place] [phone] 09/15/2024 3:45 PM EST Office Visit Dental Medicine, [place] [address] [place] [address] Russel Caceres, [facility] [address] [place] [address] 10/09/2024 2:20 PM EST Office Visit Family [facility], [place] [address] [place] [phone] David Antunez MD [address] [place] [address] 11/14/2024 1:15 PM EST Office Visit MOHS Surgery [facility] [address] [place] [address] Supriya Fernandes MD [address] [place] [address] 12/21/2024 1:30 PM EST [facility] [address] [place] [phone] Malaika Guzman PA-C [address] [place], [place] [phone] 01/22/2025 1:30 PM EDT PulmDiagnostic Pulmonary Function Lab [facility] [address] [address] [address], [address] [place] [address] 01/22/2025 2:00 PM EDT Office Visit Pulmonary Medicine [facility] [address] [address] Dominguez Aguilar MD [address] [facility] [place] [address] 02/05/2025 10:00 AM EDT Office Visit Rheumatology, [address] [address] Rafael Hernandez PA-C [address] [place] [address] 02/06/2025 1:30 PM EDT Office Visit Cardiology, [place] [address] [place] [address] Cherry Warner PA-C [address] [place], [place] [phone] Scheduled Procedures Name Priority Associated Diagnoses Date/Ti [...] 2 03/2024, 09/02/2022, Additional history exists GFR 02/19/2025 08/21/2024, [...] this encounter Medical Devices Implanted Type Area Beef Cattle Grazier Device Identifier Shelf Expiration Date Model / Serial / Lot Mesh Perfix Plug Lg [id number] - [id number] Implanted:Qty : 1 on 02/07/2019 by Jonathan Correia DO at OR [facility] Right: Groin CR BARD : DAVOL 09/04/2023 [id number] / / [id number] Cytal Wndmtx 1lyr [id number](150 Units) - [id number] - [id number] Implanted:Qty : 1 on 08/10/2024 by Lexie Aldridge MD at OR [facility] Left: Leg Upper [employer] [id number] 10/07/2025 [id number] / [id number] / [id number] Cytal Wndmtx 1lyr 7x10cm (70 Units) - [id number] - [id number] Implanted:Qty : 1 on 08/10/2024 by Lexie Aldridge MD at OR [facility] Left: Leg Upper ANDREA CUMMINGS [id number] 01/05/2026 [id number] / [id number] / [id number] documented as of this encounter Advance Directives Documents on File Type Date Recorded 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
--- OUTSIDE RECORDS SUMMARY | 2024-09-30 18:10 | External Medical Summary | Summary of Care ---
Author Name Unknown Organization [facility] Address [address] [place] [address] Phone [phone] Care Team Providers Care Diamond Setter Apprentice Name Role Phone Fuentes Ashton MD Primary Care Provider [phone] Reason for Visit * Reason Onset Date Comments Medication Refill 08/29/2024 Encounter Details Date Type Department Care Team (Late st Contact Info) Description 08/29/2024 Refill Otolaryngology/Head & Neck/Facial Plastic Surgery [address] [place], [place] [phone] Lexie Infante MD [address] [place], [place] [phone] SCC (squamous cell carcinoma)* Allergies Active Allergy Reactions Criticality Noted Date [...] (PriLOSEC)Indicati ons:Gastroesophage al reflux disease without esophagitis,terminal carman (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 30 Tablet 4 Active Folic Acid 1 MG Oral Tablet Take 1 Tablet by mouth in the morning. 30 Tablet 4 08/29/20 Discontinu ed(Refill) Vitamin B-12 1000 MCG Oral Tablet (Cyanocobalamin) Take 1 Tablet by mouth in the morning. 30 Tablet 4 08/29/20 24 Discontinu ed(Refill) Hospital, Clinic, or Other [...] from 2018 Atherosclerotic heart diseas e of [place] coronary artery without angina pectoris 05/31/2020 [...] neoplasm) 0 03/09/2018 Overview: MRI 02/23 terminal carman (current) use 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 08/03/2023 08/03/2023 Atherosclerosis of [place] co ronary artery without angina pectoris [...] mRNA, LNP-s, No Pre serve, 2-Dose Series (SezWho) 08/15/2021,01/31/2021,01/03/2021 COVID-19, LNP-s, No Preserve , Ruslan-sucrose, Ages 12+ (SezWho) 03/19/2022 COVID-19, MRNA-LNP, 23-24, P F, 30 MCG/0.3 mL, 12 YRS AND ABOVE, IM ([facility]) 10/25/2023 Covid-19, Mrna, Lnp-s, Pf, B ivalent, 30 Mcg, IM, 12 yrs and above (SezWho) 2022 Pneumococcal Conjugate Vacc, 13 Valent (Prevnar) 01/21/2016 Pneumococcal Conjugate Vacci ne, 20-valent ([id number]) 07/19/2023 Pneumococcal Polysaccharide PPV23 (Pneumovax) 01/13/2011 RSV [...] Telephone Encounter - Lexie Infante MD - 08/30/2024 2:36 PM EDTSigned Prescriptions: Disp Refills Folic Acid 1 MG Oral Tablet 30 Tab*0 Sig: Take 1 Tablet by mouth in the morning. Authorizing Provider: LEXIE INFANTE Vitamin B-12 1000 MCG Oral Tablet (Cyanoco*30 Tab*0 Sig: Take 1 Tablet by mouth in the morning. Authorizing Provider: LEXIE INFANTE -------- * Telephone Encounter - Gabriela Boone RN - 08/29/2024 2:[address] Infante, Pt is scheduled with you on 09/01/24 for post op and will need refills of Folic Acid and B 12 that he had been prescribed following surgery. Pt prefers [facility]. If you approve, please sign orders. Thank you! documented in this encounter Plan of Treatment Upcoming Encounters Date Type Department Care Team (Late st Contact Info) Description 08/31/2024 11:20 AM EDT Office Visit Nephrology, [address] [address] Keisha Gunn MD [address] [place] [address] 09/01/2024 9:30 AM EDT [facility] [address] [place] [address] Shyla Valladares [facility] [address] [place] [address] 09/01/2024 10:00 AM EDT Office Visit Otolaryngology/Head & Neck/Facial Plastic Surgery [address] [place] [address] Lexie Infante MD [address] [place] [address] 09/04/2024 11:00 AM EDT Hem/Onc Treatment Hematology/Oncology Treatment, [address] [address] [facility], Chair5 Hem Onc [address] [place] [address] 09/05/2024 10:00 AM EDT Office Visit Radiation Oncology, [facility] [address] [place] [address] Mansoor Watson MD [address] [place] [phone] 09/05/2024 11:00 AM EDT Documentation Radiation Oncology, [address] [address] Mansoor Watson MD [address] [place] [phone] [facility] [address] Rad Onc [address] [place] [address] 09/15/2024 3:45 PM EST Office Visit Dental Medicine, [place] [address] [place] [address] Russel Caceres, [facility] [address] [place] [address] 10/09/2024 2:20 PM EST Office Visit [facility] [address] [place] [phone] David Antunez MD [address] [place] [address] 11/14/2024 1:15 PM EST Office Visit MOHS Surgery [facility] [address] [place] [address] Supriya Fernandes MD 200 [place] [address] 12/21/2024 1:30 PM EST Office Visit Dermatology, Melissa Desir [place] [address] [place] [address] Malaika Guzman PA-C [address] [place] [address] 01/22/2025 1:30 PM EDT PulmDiagnostic Pulmonary Function Lab [facility] [place] [address] [address] [address], [address] [facility] [place] [address] 01/22/2025 2:00 PM EDT Office Visit Pulmonary Medicine Phu Dolan [place] [address] [phone] Dominguez Aguilar MD [address] [facility] [place] [address] 02/05/2025 10:00 AM EDT Office Visit Rheumatology, [facility] [address] [place], [place] [address] Rafael Hernandez PA-C [address] [place] [address], [place] [address] 02/06/2025 1:30 PM EDT Office Visit Cardiology, [place] 400 [facility] [address] [address] [address] Cherry Warner PA-C [address] [facility] [address] Scheduled Procedures Name Priority Associated Diagnoses Date/Ti [...] this encounter Medical Devices Implanted Type Area Geology Teacher Device Identifier Shelf Expiration Date Model / Serial / Lot Mesh Perfix Plug Lg [id number] - [id number] Implanted:Qty : 1 on 02/07/2019 by Jonathan Correia DO at OR [facility] Right: Groin CR BARD : DAVOL 09/04/2023 [id number] / / [id number] Cytal Wndmtx 1lyr [id number](150 Units) - [id number] - [id number] Implanted:Qty : 1 on 08/10/2024 by Lexie Infante MD [place] [facility] Left: Leg Upper [employer] [id number] 10/07/2025 [id number] / [id number] / [id number] Cytal Wndmtx 1lyr 7x10cm (70 Units) - [id number] - [id number] Implanted:Qty : 1 on 08/10/2024 by Lexie Infante MD at [place] [facility] Left: Leg Upper [employer] [id number] 01/05/2026 [id number] / [id number] / [id number] documented as of this encounter Visit Diagnoses Diagnosis SCC (squamous cell carcinoma)- Primary Squamous cell carcinoma of skin, site unspecified documented in this encounter Advance Directives Documents on File Type Date Recorded 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
--- OUTSIDE RECORDS SUMMARY | 2024-09-30 18:10 | External Medical Summary | Summary of Care ---
Author Name Unknown Organization [facility] Address [address] [facility] [place] [address] Phone [phone] Care Team Providers Care Nursing Consultant Name Role Phone Fuentes Ashton MD Primary Care Provider [phone] Encounter Details Date Type Department Care Team (Late st Contact Info) Description 08/25/2024 Telephone [facility] 21 [facility] [place] [address] Fuentes Ashton MD [address] [place] [address] Allergies Active Allergy Reactions Criticality [...] Delayed Release (PriLOSEC)Indicatio ns:Gastroesophageal reflux disease without esophagitis,MCFP (current) use 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 Take by [...] Powder Breath ActivatedIndication s:COPD, moderate ([facility]) Inhale 2 Puffs by mouth every 4 hours as needed for Shortness of Breath. 1 Each 11 4 Active Additional Information Patient not taking.Reported on 08/25/2024 Albuterol Sulfate (2.5 MG/3ML) 0.083% Inhalation Nebulization Solution (Proventil)Indicati ons:COPD, group C, by GOLD 2017 classification ([facility]) Inhale 1 Vial via nebulizer [...] three times daily 396 g 4 Active Folic Acid 1 MG Oral Tablet Take 1 Tablet by mouth in the morning. 30 Tablet 4 09/22/20 24 Active Vitamin B-12 1000 MCG Oral Tablet (Cyanocobalamin) Take 1 Tablet by mouth in the morning. 30 Tablet 4 09/22/20 24 Active Doxycycline Monohydrate 100 MG Oral CapsuleIndications: Squamous cell carcinoma of neck Take 1 Capsule by mouth in the morning and 1 Capsule before bedtime. Do all this for 7 days. 14 Capsule 4 09/01/20 24 Active Zinc Oxide 40 % External Paste (Desitin)Indication s:Pressure injury of left buttock, stage 1 Apply to buttocks as needed. 57 g Active oxyCODONE HCl 5 MG Oral Tablet (Oxy IR) Take 1 Tablet by mouth every 4 hours as needed for severe or breakthrough pain for up to 5 days. 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 08/03/2023 08/03/2023 Atherosclerosis of [place] co ronary artery without angina pectoris 02/01/2023 [...] mRNA, LNP-s, No Pre serve, 2-Dose Series ([employer]) 08/15/2021,01/31/2021,01/03/2021 COVID-19, LNP-s, No Preserve , Ruslan-sucrose, Ages 12+ (Pfizer) 03/19/2022 COVID-19, MRNA-LNP, 23-24, P F, 30 MCG/0.3 mL, 12 YRS AND ABOVE, IM ([facility]) 10/25/2023 Covid-19, Mrna, Lnp-s, Pf, B ivalent, 30 Mcg, IM, 12 yrs and above (Pfizer) 2022 Pneumococcal Conjugate Vacc, 13 Valent (Prevnar) 01/21/2016 Pneumococcal Conjugate Vacci ne, 20-valent ([id number]) 07/19/2023 Pneumococcal Polysaccharide PPV23 (Pneumovax) 01/13/2011 RSV [...] Encounter - Deena Lau OSA - 08/30/2024 8:21 AM EDT All notes and referral sent to [facility] As H and [facility] do not service [place] They will call pt * Telephone Encounter - Gabriela Boone RN - 08/29/2024 3:27 PM EDT Pt and pt's (Karen) reconsidered and would now like set up with Home Health. Please assist with setting up home health for pt. Thank you! * Telephone Encounter - Deena Lau OSA - 08/25/2024 3:11 PM EDT Pt declined documented in this encounter Plan of Treatment Upcoming Encounters Date Type Department Care Team (Late st Contact Info) Description 08/31/2024 11:20 AM EDT Office Visit Nephrology, [facility] [address] [place] [address] Keisha Gunn MD [address] [place] [address] 09/01/2024 10:00 AM EDT Office Visit Otolaryngology/Head & Neck/Facial Plastic Surgery [address] [place] [address] Lexie Aldridge MD [address] [place] [address] 09/05/2024 10:00 AM EDT Office Visit Radiation Oncology, [address] [address] Mansoor Watson MD [address] [place] [address] 09/05/2024 11:00 AM EDT Documentation Radiation Oncology, [address] [address] Mansoor Watson MD [address] [place] [phone] [facility], [address] Rad Onc [address] [place] [address] 09/15/2024 3:45 PM EST Office Visit Dental Medicine, [place] [address] [place] [address] Russel Caceres DMD [address] [place] [address] 10/09/2024 2:20 PM EST Office Visit [address] [phone] David Antunez MD 21 [facility] [address] 11/14/2024 1:15 PM EST Office Visit MOHS Surgery [facility] [address] [place] [address] Supriya Fernandes MD 200 [facility] [place] [address] 12/21/2024 1:30 PM EST Office Visit Dermatology, Melissa Thang [place] [address] [address] [address] Malaika Guzman PA-C [address] [place] [address] 01/22/2025 1:30 PM EDT PulmDiagnostic Pulmonary Function Lab [facility] [address] [facility] [place] [address] West, [address] [facility] [place] [address] 01/22/2025 2:00 PM EDT Office Visit Pulmonary Medicine [facility] [address] [facility] [place] [phone] Dominguez Aguilar MD [address] [facility] [address] 02/05/2025 10:00 AM EDT Office Visit Rheumatology, [address] [phone] Rafael Hernandez, PA-C [address] [place] [address] [place], [place] [address] 02/06/2025 1:30 PM EDT Office Visit Cardiology, [address] [place] [address] Cherry Warner PA-C [address] [facility] [place] [address] Scheduled Procedures Name Priority Associated Diagnoses Date/Ti [...] this encounter Medical Devices Implanted Type Area Land Leasing Information Clerk Device Identifier Shelf Expiration Date Model / Serial / Lot Mesh Perfix Plug Lg [id number] - [id number] Implanted:Qty : 1 on 02/07/2019 by Jonathan Correia DO at OR [facility] Right: Groin CR BARD : DAVOL 09/04/2023 [id number] / / [id number] Cytal Wndmtx 1lyr [id number](150 Units) - [id number] - [id number] Implanted:Qty : 1 on 08/10/2024 by Lexie Aldridge MD at OR [facility] Left: Leg Upper [employer] [id number] 10/07/2025 [id number] / [id number] / [id number] Cytal Wndmtx 1lyr 7x10cm (70 Units) - [id number] - [id number] Implanted:Qty : 1 on 08/10/2024 by Lexie Aldridge MD at OR [facility] Left: Leg Upper [employer] [id number] 01/05/2026 [id number] / [id number] / [id number] documented as of this encounter Advance Directives Documents on File Type Date 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 [place] Adult Child Emergency Contact Care Teams Nursing Consultant Relationship Specialty Start Date End Date Fuentes Ashton MD [address] [phone] PCP - General Family Medicine 01/30/22 documented as of this encounter
--- OUTSIDE RECORDS SUMMARY | 2024-09-30 18:10 | External Medical Summary | Summary of Care ---
Author Name Unknown Organization [facility] Address [address] [facility] [place]E [place] [address] Phone [phone] Care Team Providers Care Assistive Technology Trainer Name Role Phone Fuentes Ashton MD Primary Care Provider [phone] [phone] Reason for Visit * Reason Onset Date Comments Advice 08/30/2024 Encounter Details Date Type Department Care Team (Late st Contact Info) Description 08/30/2024 Telephone [facility] [place] [address] [facility] 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 1 Each 07/06/2024 Active Additional Information Patient not taking.Reported on 08/25/2024 Albuterol Sulfate (2.5 MG/3ML) 0.083% Inhalation Nebulization Solution (Proventil)Indicati ons:COPD, group C, by GOLD 2017 classification ([place] [...] in the morning. 30 Tablet 08/23/2024 09/22/20 Active Vitamin B-12 1000 MCG Oral Tablet (Cyanocobalamin) Take 1 Tablet by mouth in the morning. 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 [...] mRNA, LNP-s, No Pre serve, 2-Dose Series ([employer]) 08/15/2021,01/31/2021,01/03/2021 COVID-19, LNP-s, No Preserve , Ruslan-sucrose, Ages 12+ (Pfizer) 03/19/2022 COVID-19, MRNA-LNP, 23-24, P F, 30 MCG/0.3 mL, 12 YRS AND ABOVE, IM ([facility]) 10/25/2023 Covid-19, Mrna, Lnp-s, Pf, B ivalent, 30 Mcg, IM, 12 yrs and above ([employer]) 2022 Pneumococcal Conjugate Vacc, 13 Valent (Prevnar) 01/21/2016 Pneumococcal Conjugate Vacci ne, 20-valent ([id number]) 07/19/2023 Pneumococcal Polysaccharide PPV23 (Pneumovax) 01/13/2011 RSV [...] encounter Miscellaneous Notes * Telephone Encounter - Garbiela Boone RN - 08/30/2024 1:21 PM EDT Confirmed pt's address and insurance with [facility]. Intake nurse says they typically try make [...] 08/31/2024 11:20 AM EDT Office Visit Nephrology, [address] [place] [address] Keisha Gunn MD [address] [place] [address] 09/01/2024 9:30 AM EDT [facility], [place] [address] [place] [address] Shyla Valladares, CCC-DIRECTOR LEARNING AND DEVELOPMENT [address] [place] [address] 09/01/2024 10:00 AM EDT Office Visit Otolaryngology/Head & Neck/Facial Plastic Surgery [address] [place] [address] Lexie Aldridge MD [address] [place] [address] 09/04/2024 11:00 AM EDT Hem/Onc Treatment Hematology/Oncology Treatment, [address] [address] [facility], Chair5 Hem Onc [address] [place] [address] 09/05/2024 10:00 AM EDT Office Visit Radiation Oncology, [address] [address] Mansoor Watson MD [address] [place] [phone] 09/05/2024 11:00 AM EDT Documentation Radiation Oncology, [address] [address] Mansoor Watson MD [address] [place] [address] [facility], [address] Rad Onc [address] [place] [address] 09/15/2024 3:45 PM EST Office Visit Dental Medicine, [place] [address] [place] [address] Russel Caceres [facility] 100 [address] [facility] [place] [address] 10/09/2024 2:20 PM EST Office Visit Family [facility], [place] [facility] [place] [phone] David Antunez MD 21 [facility] [place] [address] 11/14/2024 1:15 PM EST Office Visit MOHS Surgery [facility] 200 [place] [address] Supriya Fernandes MD 200 [place] [address] 12/21/2024 1:30 PM EST Office Visit D[place]atology, [place] [address] [place] [address] Malaika Guzman PA-C [address] [place], [place] [id number] 01/22/2025 1:30 PM EDT PulmDiagnostic Pulmonary Function Lab [place] [address] [place] [address] [address], [address] [place] [address] 01/22/2025 2:00 PM EDT Office Visit Pulmonary Medicine Ahmet Downing [address] [place] [phone] Dominguez Aguilar MD [address] [place] [address] 02/05/2025 10:00 AM EDT Office Visit Rheumatology, [facility] 400 [facility] [address] Rafael Hernandez PA-C 1303 [facility] [place], [place] [address] 02/06/2025 1:30 PM EDT Office Visit Cardiology, [address] [place] [address] Cherry Warner PA-C 400 [facility] [place] [address] Scheduled Procedures Name Priority Associated Diagnoses Date/Ti [...] encounter Medical Devices Implanted Type Area Manager Utilization Review Device Identifier Shelf Expiration Date Model / Serial / Lot Mesh Perfix Plug Lg [id number] - [id number] Implanted:Qty : 1 on 02/07/2019 by Jonathan Correia DO at OR [facility] Right: Groin CR BARD : DAVOL 09/04/2023 [id number] / / [id number] Cytal Wndmtx 1lyr [id number](150 Units) - [id number] - [id number] Implanted:Qty : 1 on 08/10/2024 by Lexie Alrdidge MD at OR [facility] Left: Leg Upper [employer] [id number] 10/07/2025 [id number] / [id number] / [id number] Cytal Wndmtx 1lyr 7x10cm (70 Units) - [id number] - [id number] Implanted:Qty : 1 on 08/10/2024 by Lexie Aldridge MD at OR [facility] Left: Leg Upper [employer] [id number] 01/05/2026 [id number] / [id number] / [id number] documented as of this encounter Advance Directives Documents on File Type Date 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
--- OUTSIDE RECORDS SUMMARY | 2024-09-30 18:11 | External Medical Summary | Summary of Care ---
Author Name Unknown Organization [facility] Address [address] [facility] [address] Phone [phone] Care Team Providers Care Engineering Analyst Name Role Phone Funetes Ashton MD Primary Care Provider [phone] [phone] Encounter Details Date Type Department Care Team (Late st Contact Info) Description 08/25/2024 Telephone [facility] 21 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 08/03/2023 08/03/2023 Atherosclerosis of [place] co ronary artery without angina pectoris 02/01/2023 [...] mRNA, LNP-s, No Pre serve, 2-Dose Series (Meldium) 08/15/2021,01/31/2021,01/03/2021 COVID-19, LNP-s, No Preserve , Ruslan-sucrose, Ages 12+ (Pfizer) 03/19/2022 COVID-19, MRNA-LNP, 23-24, P F, 30 MCG/0.3 mL, 12 YRS AND ABOVE, IM ([facility]) 10/25/2023 Covid-19, Mrna, Lnp-s, Pf, B ivalent, 30 Mcg, IM, 12 yrs and above (Pfizer) 2022 Pneumococcal Conjugate Vacc, 13 Valent (Prevnar) 01/21/2016 Pneumococcal Conjugate Vacci ne, 20-valent ([id number]) 07/19/2023 Pneumococcal Polysaccharide PPV23 (Pneumovax) 01/13/2011 RSV [...] - 08/25/2024 3:11 PM EDT Pt declined HH documented in this encounter Plan of Treatment Upcoming Encounters Date Type Department Care Team (Late st Contact Info) Description 08/31/2024 11:20 AM EDT Office Visit Nephrology, [address] [place] [address] Keisha Gunn MD [address] [place] [address] [address] 09/01/2024 10:00 AM EDT Office Visit Otolaryngology/Head & Neck/Facial Plastic Surgery [address] [place] [address] Lexie Aldridge MD [address] [place] [address] 09/05/2024 10:00 AM EDT Office Visit Radiation Oncology, [facility] [address] [place] [address] Mansoor Watson MD [address] [place] [address] 09/05/2024 11:00 AM EDT Documentation Radiation Oncology, [facility] 211 [place] [address] Mansoor Watson MD [address] [place] [phone] [facility], [address] Rad Onc 211 [place] [address] 09/15/2024 3:45 PM EST Office Visit Dental Medicine, [place] [address] [place] [address] uRssel Caceres, JESISCA [address] [place] [address] 10/09/2024 2:20 PM EST Office Visit [facility] 21 [place] [phone] David Antunez MD 21 [place] [address] 11/14/2024 1:15 PM EST Office Visit [facility] Surgery [facility] 200 [place] [address] Supriya Fernandes MD 200 [facility] [place], [place] [address] 12/21/2024 1:30 PM EST Office Visit Dermatology, [place] [address] [place] [address] Malaika Guzman PA-C [address] [place] [address] 01/22/2025 1:30 PM EDT PulmDiagnostic Pul[facility] Function Lab [facility] [place] [address] [place] [address] [place], [address] [facility] [place] [address] 01/22/2025 2:00 PM EDT Office Visit Pulmonary Medicine [place] [address] [place] [phone] Dominguez Aguilar MD 217 S [facility] [place] [address] 02/05/2025 10:00 AM EDT Office Visit Rheumatology, [facility] 400 [place] [address] Rafael Hernandez PA-C [address] [place] [address] [place] [address] 02/06/2025 1:30 PM EDT Office Visit Cardiology, [address] [place] [address] Cherry Warner, RAJEEV [address] [place] [address] [place] [address] Scheduled Procedures Name Priority Associated Diagnoses Date/Ti [...] this encounter Medical Devices Implanted Type Area Field Services Director Device Identifier Shelf Expiration Date Model / Serial / Lot Mesh Perfix Plug Lg [id number] - [id number] Implanted:Qty : 1 on 02/07/2019 by Jonathan Correia DO at OR [facility] Right: Groin CR BARD : DAVOL 09/04/2023 [id number] / / [id number] Cytal Wndmtx 1lyr [id number](150 Units) - [id number] - [id number] Implanted:Qty : 1 on 08/10/2024 by Lexie Aldridge MD at OR [facility] Left: Leg Upper [employer] [id number] 10/07/2025 [id number] / [id number] / [id number] Cytal Wndmtx 1lyr 7x10cm (70 Units) - [id number] - [id number] Implanted:Qty : 1 on 08/10/2024 by Lexie Aldrideg MD at OR [facility] Left: Leg Upper [employer] [id number] 01/05/2026 [id number] / [id number] / [id number] documented as of this encounter Advance Directives Documents on File Type Date Recorded Patient Assessment Analyst Expl anation Advance Directives and Living Will [...] by patient or by statute hierarchy) [facility] Adult Child Emergency Contact Care Teams Engineering Analyst Relationship Specialty Start Date End Date Fuentes Ashton MD [address] [place] [address] PCP - General Family Medicine 01/30/22 documented as of this encounter
--- OUTSIDE RECORDS SUMMARY | 2024-09-30 18:11 | External Medical Summary | Summary of Care ---
Author Name Unknown Organization [facility] Address 100 [facility] [place] [address] Phone [phone] Care Team Providers Care Brick Dropper Name Role Phone Fuentes Ashton MD Primary Care Provider [phone] Encounter Details Date Type Department Care Team (Late st Contact Info) Description 08/29/2024 Orders Only Hematology/Oncology, [facility] 400 [facility] [place] [phone] Devan Garcia MD 21 [place] [address] Allergies Active Allergy Reactions Criticality Noted [...] Delayed Release (PriLOSEC)Indicatio ns:Gastroesophageal reflux disease without esophagitis,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 1 Each 11 07/06/2024 Active Additional Information Patient not taking.Reported on 08/25/2024 Albuterol Sulfate (2.5 MG/3ML) 0.083% Inhalation Nebulization Solution (Proventil)Indicati ons:COPD, group C, by GOLD 2017 classification ([facility]) Inhale 1 Vial via nebulizer [...] from 2018 Atherosclerotic heart diseas e of [place] coronary artery without angina pectoris 05/31/2020 Nuclear [...] chronic kidney disease 08/03/2023 08/03/2023 Atherosclerosis of [place] co ronary artery without angina pectoris 02/01/2023 [...] mRNA, LNP-s, No Pre serve, 2-Dose Series (Carestream) 08/15/2021,01/31/2021,01/03/2021 COVID-19, LNP-s, No Preserve , Ruslan-sucrose, Ages 12+ (Pfizer) 03/19/2022 COVID-19, MRNA-LNP, 23-24, P F, 30 MCG/0.3 mL, 12 YRS AND ABOVE, IM ([facility]) 10/25/2023 Covid-19, Mrna, Lnp-s, Pf, B ivalent, 30 Mcg, IM, 12 yrs and above (Pfizer) 2022 Pneumococcal Conjugate Vacc, 13 Valent (Prevnar) 01/21/2016 Pneumococcal Conjugate Vacci ne, 20-valent ([id number]) 07/19/2023 Pneumococcal Polysaccharide PPV23 (Pneumovax) 01/13/2011 RSV [...] 08/31/2024 11:20 AM EDT Office Visit Nephrology, [facility] 400 [place] [address] Keisha Gunn MD 400 [place] [address] 09/01/2024 10:00 AM EDT Office Visit Otolaryngology/Head & Neck/Facial Plastic Surgery [address] [place] [address] Lexie Aldridge MD [address] [place] [address] 09/05/2024 10:00 AM EDT Office Visit Radiation Oncology, [facility] [address] [place] [address] Mansoor Watson MD [address] [place] [phone] 09/05/2024 11:00 AM EDT Documentation Radiation Oncology, [facility] [address] [place], [place] [phone] IovoliMansoor MD [address] [place] [phone] Gl[facility], [address] Rad Onc [address] [place], [place] [phone] 09/15/2024 3:45 PM EST Office Visit Dental Medicine, [place] [address] [place] [address] Russel Caceres, [facility] [address] [place] [address] 10/09/2024 2:20 PM EST Office Visit [facility] 21 [place] [address] David Antunez MD 21 [place], [place] [phone] 11/14/2024 1:15 PM EST Office Visit [facility] 200 [place] [address] Supriya Fernandes MD 200 [place] [address] 12/21/2024 1:30 PM EST Office Visit Dermatology, [place] [address] [place] [phone] Malaika Guzman PA-C 27 [place] [id number] 01/22/2025 1:30 PM EDT PulmDiagnostic Pulmonary Function Lab Ahmet Downing [address] [phone] [place], [address] Sonali Thang [place], [place] [address] 01/22/2025 2:00 PM EDT Office Visit Pulmonary Medicine [facility] [address] [place] [address] Dominguez Aguilar MD [address] [facility] [address] 02/05/2025 10:00 AM EDT Office Visit Rheumatology, [facility] 400 [facility], [place] [address] Rafael Hernandez PA-C 85[address] [facility], [place] [address] 02/06/2025 1:30 PM EDT Office Visit Cardiology, [place] 400 [facility] [address] Cherry Warner PA-C 400 [facility] [address] Scheduled Procedures Name Priority Associated Diagnoses Date/Ti [...] this encounter Medical Devices Implanted Type Area Furniture Duster Device Identifier Shelf Expiration Date Model / Serial / Lot Mesh Perfix Plug Lg [id number] - [id number] Implanted:Qty : 1 on 02/07/2019 by Jonathan Correia DO at OR [facility] Right: Groin CR BARD : DAVOL 09/04/2023 [id number] / / [id number] Cytal Wndmtx 1lyr [id number](150 Units) - [id number] - [id number] Implanted:Qty : 1 on 08/10/2024 by Lexie Aldridge MD at OR [facility] Left: Leg Upper [employer] [id number] 10/07/2025 [id number] / [id number] / [id number] Cytal Wndmtx 1lyr 7x10cm (70 Units) - [id number] - [id number] Implanted:Qty : 1 on 08/10/2024 by Lexie Aldridge MD at OR 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
--- OUTSIDE RECORDS SUMMARY | 2024-09-30 18:11 | External Medical Summary | Summary of Care ---
Author Name Unknown Organization [facility] Address [address] [facility] [address] Phone [phone] Care Team Providers Care Mechanic Marine Engine Name Role Phone Fuentes Ashton MD Primary Care Provider [phone] [phone] Encounter Details Date Type Department Care Team (Late st Contact Info) Description 08/28/2024 Telephone [facility] 21 [place] [address] Devan Garcia MD 21 [place] [address] Allergies Active Allergy Reactions Criticality [...] Delayed Release (PriLOSEC)Indicatio ns:Gastroesophageal reflux disease without esophagitis,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 1 Each 11 07/06/2024 Active Additional Information Patient not taking.Reported on 08/25/2024 Albuterol Sulfate (2.5 MG/3ML) 0.083% Inhalation Nebulization Solution (Proventil)Indicati ons:COPD, group C, by GOLD 2017 classification ([facility]) Inhale 1 Vial via nebulizer [...] from 2018 Atherosclerotic heart diseas e of [place] coronary artery without angina pectoris 05/31/2020 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) 0 03/09/2018 Overview: MRI 02/23 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) use 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 08/03/2023 08/03/2023 Atherosclerosis of [place] co ronary artery without angina pectoris 02/01/2023 [...] mRNA, LNP-s, No Pre serve, 2-Dose Series (Novi) 08/15/2021,01/31/2021,01/03/2021 COVID-19, LNP-s, No Preserve , Ruslan-sucrose, Ages 12+ (Novi) 03/19/2022 COVID-19, MRNA-LNP, 23-24, P F, 30 MCG/0.3 mL, 12 YRS AND ABOVE, IM ([facility]) 10/25/2023 Covid-19, Mrna, Lnp-s, Pf, B ivalent, 30 Mcg, IM, 12 yrs and above (Novi) 2022 Pneumococcal Conjugate Vacc, 13 Valent (Prevnar) 01/21/2016 Pneumococcal Conjugate Vacci ne, 20-valent (Sabmmof14) 07/19/2023 Pneumococcal Polysaccharide PPV23 (Pneumovax) 01/13/2011 RSV [...] 08/23/2024 Does the household have a [email or web address]]lar source of income? (Household - for ages [...] encounter Miscellaneous Notes * Addendum Note - Leonel Trejo RN - 08/29/2024 3:22 PM EDTAddended by: LEONEL TREJO on: 08/29/2024 03:22 PM Modules accepted: Orders * Telephone Encounter - Leonel Trejo RN - 08/29/2024 3:13 PM EDT Karen (pt's ) expressed concern that no one had contacted her to schedule iron infusion yet. Pt's made aware that shoe caser would look into manner. Spoke with medical technologist chemistry at [facility] who stated that order need placed and authorizationdone by order office prior to infusion being scheduled. Dr. Abel, If you approve, please sign order for new supportive care plan. * Telephone Encounter - Makayla Parham MED ASSIST - 08/28/2024 2:40 PM EDT Spoke with pt voiced understanding of the message. * Telephone Encounter - Devan Garcia MD - 08/28/2024 2:16 PM EDT Please call patient let him know that I order iron infusion, the infusion center we will call him to schedule this infusion. documented in this encounter Plan of Treatment Upcoming Encounters Date Type Department Care Team (Late st Contact Info) Description 08/31/2024 11:20 AM EDT Office Visit Nephrology, [address] [place] [address] Keisha Gunn MD [address] [place] [address] [place] [id number] 09/01/2024 10:00 AM EDT Office Visit Otolaryngology/Head & Neck/Facial Plastic Surgery [address] [place] [address] Lexie Aldridge MD [address] [place] [address] 09/05/2024 10:00 AM EDT Office Visit Radiation Oncology, [address] [address] IoMansoor luevano MD [address] [place] [phone] 09/05/2024 11:00 AM EDT Documentation Radiation Oncology, [address] [address] Mansoor Watson MD [address] [place] [phone] Glh, [address] Rad Onc [address] [place] [address] 09/15/2024 3:45 PM EST [facility] [address] [place] [address] Russel Caceres, JESSICA [address] [place] [address] 10/09/2024 2:20 PM EST Office Visit [facility] [address] [place] [phone] David Antunez MD [address] [place] [address] 11/14/2024 1:15 PM EST Office Visit MOHS Surgery [facility] [address] [place] [address] Supriya Fernandes MD [address] [place] [phone] 12/21/2024 1:30 PM EST Office Visit Dermatology, [place] [address] [address] [place] [address] Malaika Guzman PA-C [address] [place] [address] 01/22/2025 1:30 PM EDT PulmDiagnostic Pulmonary Function Lab [facility] [address] [facility] [place] [address] West, Pft [address] [facility] [place] [address] 01/22/2025 2:00 PM EDT Office Visit Pulmonary Medicine [facility] [address] [facility] [place] [phone] Dominguez Aguilar MD [address] [facility] [place] [address] 02/05/2025 10:00 AM EDT Office Visit Rheumatology, [facility] [place] [address] [place], [place] [phone] Rafael Hernandez PA-C [address]00 [place] [address] 02/06/2025 1:30 PM EDT Office Visit Cardiology, [place] 400 [facility] [place] [address] Cherry Warner PA-C 400 [facility] [phone] Scheduled Procedures Name Priority Associated Diagnoses Date/Ti [...] this encounter Medical Devices Implanted Type Area Blown Film Extrusion Operator Device Identifier Shelf Expiration Date Model / Serial / Lot Mesh Perfix Plug Lg [id number] - [id number] Implanted:Qty : 1 on 02/07/2019 by Jonathan Correia DO at OR [facility] Right: Groin CR BARD : DAVOL 09/04/2023 [id number] / / [id number] Cytal Wndmtx 1lyr [id number](150 Units) - [id number] - [id number] Implanted:Qty : 1 on 08/10/2024 by Lexie Aldridge MD [place] [facility] [place]: Leg Upper [employer] [id number] 10/07/2025 [id number] / [id number] / [id number] Cytal Wndmtx 1lyr 7x10cm (70 Units) - [id number] - [id number] Implanted:Qty : 1 on 08/10/2024 by Lexie Aldridge MD [place] [facility] [place]: Leg Upper [employer] [id number] 01/05/2026 [id number] / [id number] / [id number] documented as of this encounter Visit Diagnoses Diagnosis Iron deficiency anemia, unspecified iron deficiency anemia type- Primary documented in this encounter Advance Directives Documents on File Type Date Recorded Patient Osteologist Expl anation Advance Directives and Living Will [...] by patient or by statute hierarchy) Lula [place] Adult Child Emergency Contact Care Teams Mechanic Marine Engine Relationship Specialty Start Date End Date Fuentes Ashton MD [address] [place] [place] [phone] PCP - General Family Medicine 01/30/22 documented as of this encounter
--- OUTSIDE RECORDS SUMMARY | 2024-09-30 18:11 | External Medical Summary | Summary of Care ---
Author Name Unknown Organization [facility] Address [address] [facility] [place] [address] Phone [phone] Care Team Providers Care Programming Equipment Operator Name Role Phone Fuentes Ashton MD Primary Care Provider [phone] Encounter Details Date Type Department Care Team (Late st Contact Info) Description 08/28/2024 Telephone [facility] 21 [facility] [place] [address] Devan Garcia MD 21 [place] [address] Allergies Active Allergy Reactions Criticality [...] Delayed Release (PriLOSEC)Indicatio ns:Gastroesophageal reflux disease without esophagitis,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 1 Each 11 07/06/2024 Active Additional Information Patient not taking.Reported on 08/25/2024 Albuterol Sulfate (2.5 MG/3ML) 0.083% Inhalation Nebulization Solution (Proventil)Indicati ons:COPD, group C, by GOLD 2017 classification ([facility]) Inhale 1 Vial via nebulizer [...] from 2018 Atherosclerotic heart diseas e of [place] coronary artery without angina pectoris 05/31/2020 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) 0 03/09/2018 Overview: MRI 02/23 correction (current) use of systemic [...] chronic kidney disease 08/03/2023 08/03/2023 Atherosclerosis of [place] co ronary artery without angina pectoris 02/01/2023 [...] mRNA, LNP-s, No Pre serve, 2-Dose Series (Smartaxi) 08/15/2021,01/31/2021,01/03/2021 COVID-19, LNP-s, No Preserve , Ruslan-sucrose, Ages 12+ (Smartaxi) 03/19/2022 COVID-19, MRNA-LNP, 23-24, P F, 30 MCG/0.3 mL, 12 YRS AND ABOVE, IM ([facility]) 10/25/2023 Covid-19, Mrna, Lnp-s, Pf, B ivalent, 30 Mcg, IM, 12 yrs and above (Smartaxi) 2022 Pneumococcal Conjugate Vacc, 13 Valent (Prevnar) 01/21/2016 Pneumococcal Conjugate Vacci ne, 20-valent (Utjcekq78) 07/19/2023 Pneumococcal Polysaccharide PPV23 (Pneumovax) 01/13/2011 RSV [...] No 08/23/2024 Does the household have a [facility] source [facility]? (Household - [...] Modules accepted: Orders * Telephone Encounter - Leonle Trejo RN - 08/29/2024 3:13 PM EDT Karen (pt's ) expressed concern that no one had contacted her to schedule iron infusion yet. Pt's made aware that bilingual case manager would look into manner. Spoke with unit receptionist at [facility] who stated that order need [...] 08/31/2024 11:20 AM EDT Office Visit Nephrology, [address] [place] [address] Keisha Gunn MD [address] [place] [address] [place] [address] 09/01/2024 10:00 AM EDT Office Visit Otolaryngology/Head & Neck/Facial Plastic Surgery [address] [place] [address] Lexie Aldridge MD [address] [place] [address] 09/05/2024 10:00 AM EDT Office Visit Radiation Oncology, [address] [address] IoMansoor luevano MD [address] [place] [phone] 09/05/2024 11:00 AM EDT Documentation Radiation Oncology, [address] [address] Mansoor Watson MD [address] [place] [phone] Glh, [address] Rad Onc [address] [place] [address] 09/15/2024 3:45 PM EST [facility] [address] [place] [address] Russel Caceres, JESSICA [address] [place] [address] 10/09/2024 2:20 PM EST Office Visit [facility] 21 [place] [phone] David Antunez MD 21 [place] [address] 11/14/2024 1:15 PM EST Office Visit MOHS Surgery [facility] [address] [place] [address] Supriya Fernandes MD [address] [place] [phone] 12/21/2024 1:30 PM EST Office Visit Dermatology, Melissa Des[place] [address] [place] [address] Malaika Guzman PA-C [address] [place] [address] 01/22/2025 1:30 PM EDT PulmDiagnostic Pulmonary Function Lab [facility] [address] [facility] [place] [address] West, [address] [facility] [place] [address] 01/22/2025 2:00 PM EDT Office Visit Pulmonary Medicine [facility] [address] [facility] [place] [phone] Dominguez Aguilar MD [address] [facility] [place] [address] 02/05/2025 10:00 AM EDT Office Visit Rheumatology, [facility] 400 [place], [place] [phone] Rafael Hernandez PA-C [address] [place] [address] 02/06/2025 1:30 PM EDT Office Visit Cardiology, [place] 400 [facility] [place] [address] Cherry Warner PA-C 400 [facility] [phone] Scheduled Procedures Name Priority Associated Diagnoses Date/Ti [...] this encounter Medical Devices Implanted Type Area Review Trainer Device Identifier Shelf Expiration Date Model / Serial / Lot Mesh Perfix Plug Lg [id number] - [id number] Implanted:Qty : 1 on 02/07/2019 by Jonathan Correia DO at OR [facility] Right: Groin CR BARD : DAVOL 09/04/2023 [id number] / / [id number] Cytal Wndmtx 1lyr [id number](150 Units) - [id number] - [id number] Implanted:Qty : 1 on 08/10/2024 by Lexie Aldridge MD at OR [facility] Left: Leg Upper [employer] [id number] 10/07/2025 [id number] / [id number] / [id number] Cytal Wndmtx 1lyr 7x10cm (70 Units) - [id number] - [id number] Implanted:Qty : 1 on 08/10/2024 by Lexie Aldridge MD at OR [facility] Left: Leg Upper [employer] [id number] 01/05/2026 [id number] / [id number] / [id number] documented as of this encounter Visit Diagnoses Diagnosis Iron deficiency anemia, unspecified iron deficiency anemia type- Primary documented in this encounter Advance Directives Documents on File Type Date Recorded 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
--- OUTSIDE RECORDS SUMMARY | 2024-09-30 18:11 | External Medical Summary | Summary of Care ---
Author Name Unknown Organization [facility] Address [address] [place] [address] Phone [phone] Care Team Providers Care Lasting Machine Operator Bed Name Role Phone Fuentes Ashton MD Primary Care Provider [phone] Reason for Visit * Reason Onset Date Comments Encounter Created in Error 08/29/2024 Encounter Details Date Type Department Care Team (Late st Contact Info) Description 08/29/2024 Telephone Care Coordination and Integration [address] [place] [address] Gabriela Boone, CESAR [address] [place], [place] [phone] Encounter Created in Error Allergies Active Allergy Reactions Criticality Noted Date [...] Inhalation Aerosol Powder Breath ActivatedIndication s:COPD, moderate ([facility]) Inhale 2 Puffs by mouth every 4 hours as needed for Shortness of Breath. 1 Each 11 07/06/2024 Active Additional Information Patient not taking.Reported on 08/25/2024 Albuterol Sulfate (2.5 MG/3ML) 0.083% Inhalation Nebulization Solution (Proventil)Indicati ons:COPD, group C, by GOLD 2017 classification ([facility]) Inhale 1 Vial via nebulizer [...] from 2018 Atherosclerotic heart diseas e of [place] coronary artery without angina pectoris 05/31/2020 [...] chronic kidney disease 08/03/2023 08/03/2023 Atherosclerosis of [place] co ronary artery without angina pectoris [...] mRNA, LNP-s, No Pre serve, 2-Dose Series (Predictvia) 08/15/2021,01/31/2021,01/03/2021 COVID-19, LNP-s, No Preserve , Ruslan-sucrose, Ages 12+ (Pfizer) 03/19/2022 COVID-19, MRNA-LNP, 23-24, P F, 30 MCG/0.3 mL, 12 YRS AND ABOVE, IM ([facility]) 10/25/2023 Covid-19, Mrna, Lnp-s, Pf, B ivalent, 30 Mcg, IM, 12 yrs and above (Predictvia) 2022 Pneumococcal Conjugate Vacc, 13 Valent (Prevnar) 01/21/2016 Pneumococcal Conjugate Vacci ne, 20-valent (Cuonrfj78) 07/19/2023 Pneumococcal Polysaccharide PPV23 (Pneumovax) 01/13/2011 RSV [...] 08/31/2024 11:20 AM EDT Office Visit Nephrology, [facility] [address] [place] [address] Keisha Gunn MD 400 [place] [address] 09/01/2024 10:00 AM EDT Office Visit Otolaryngology/Head & Neck/Facial Plastic Surgery [address] [place] [address] Lexie Aldridge MD [address] [place] [address] 09/05/2024 10:00 AM EDT Office Visit Radiation Oncology, [facility] [address] [place] [address] Mansoor Watson MD [address] [place] [phone] 09/05/2024 11:00 AM EDT Documentation Radiation Oncology, [facility] [address] [place], [place] [phone] [place], Mansoor Schwarz MD [address] [place] [address] Glh, [address] Rad Onc [address] [place], [place] [phone] 09/15/2024 3:45 PM EST Office Visit Dental Medicine, [place] [address] [place] [address] Russel Caceres, [facility] [address] [place] [address] 10/09/2024 2:20 PM EST Office Visit [facility] 21 [facility] [place] [phone] David Antunez MD 21 [place], [place] [phone] 11/14/2024 1:15 PM EST Office Visit MOHS Surgery [facility] 200 [place] [address] Supriya Fernandes MD 200 [place] [address] 12/21/2024 1:30 PM EST Office Visit Dermatology, Melissa Desir [place] [address] [place] [address] [place] [phone] Malaika Guzmna PA-C 27 [place] [address] 01/22/2025 1:30 PM EDT PulmDiagnostic Pulmonary Function Lab Ahmet Downing [address] [place] [address] West, [address] Sonali Thang [place] [address] 01/22/2025 2:00 PM EDT Office Visit Pulmonary Medicine [facility] [address] [place] [phone] Dominguez Aguilar MD [address] [facility] [place] [address] 02/05/2025 10:00 AM EDT Office Visit Rheumatology, [facility] [address] [place] [address] Rafael Hernandez PA-C [address] [place] [address] 02/06/2025 1:30 PM EDT Office Visit Cardiology, [place] 400 [facility] [place] [address] Cherry Warner PA-C 400 [facility] [place] [address] Scheduled Procedures Name Priority Associated Diagnoses Date/Ti [...] this encounter Medical Devices Implanted Type Area Pbx Supervisor Device Identifier Shelf Expiration Date Model / Serial / Lot Mesh Perfix Plug Lg [id number] - [id number] Implanted:Qty : 1 on 02/07/2019 by Jonathan Correia DO at OR [facility] Right: Groin CR BARD : DAVOL 09/04/2023 [id number] / / [id number] Cytal Wndmtx 1lyr [id number](150 Units) - [id number] - [id number] Implanted:Qty : 1 on 08/10/2024 by Lexie Aldridge MD [place] [facility] Left: Leg Upper [employer] [id number] 10/07/2025 [id number] / [id number] / [id number] Cytal Wndmtx 1lyr 7x10cm (70 Units) - [id number] - [id number] Implanted:Qty : 1 on 08/10/2024 by Lexie Aldridge MD at [place] [facility] Left: Leg Upper [employer] [id number] 01/05/2026 [id number] / [id number] / [id number] documented as of this encounter Advance Directives Documents on File Type Date Recorded Patient Order Builder Expl anation Advance Directives and Living Will [...] Agents on File Name Relationship Healthcare Agent [facility] p Communication Karen Davis Spouse Health Care Repr esentative (appointed verbally by patient or by statute hierarchy) Lula Colón Adult Child Emergency Contact Care Teams Lasting Machine Operator Bed Relationship Specialty Start Date End Date Fuentes Ashton MD [address] [place] [phone] PCP - General Family Medicine 01/30/22 documented as of this encounter
--- OUTSIDE RECORDS SUMMARY | 2024-09-30 18:11 | External Medical Summary | Summary of Care ---
Author Name Unknown Organization [facility] Address [address] [facility] [place] [address] Phone [phone] Care Team Providers Care Mainframe Consultant Name Role Phone Fuentes Ashton MD Primary Care Provider [phone] [phone] Encounter Details Date Type Department Care Team (Late st Contact Info) Description 08/28/2024 Telephone [facility] 21 [facility] [place] [address] Devan Garcia MD 21 [place] [address] Allergies Active Allergy Reactions Criticality [...] Delayed Release (PriLOSEC)Indicatio ns:Gastroesophageal reflux disease without esophagitis,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 08/03/2023 08/03/2023 Atherosclerosis of [place] co ronary artery without angina pectoris 02/01/2023 [...] mRNA, LNP-s, No Pre serve, 2-Dose Series ([employer]) 08/15/2021,01/31/2021,01/03/2021 COVID-19, LNP-s, No Preserve , Ruslan-sucrose, Ages 12+ ([employer]) 03/19/2022 COVID-19, MRNA-LNP, 23-24, P F, 30 MCG/0.3 mL, 12 YRS AND ABOVE, IM ([employer] 10/25/2023 Covid-19, Mrna, Lnp-s, Pf, B ivalent, 30 Mcg, IM, 12 yrs and above ([employer]) 2022 Pneumococcal Conjugate Vacc, 13 Valent (Prevnar) 01/21/2016 Pneumococcal Conjugate Vacci ne, 20-valent ([id number]) 07/19/2023 Pneumococcal Polysaccharide PPV23 (Pneumovax) 01/13/2011 RSV [...] No 08/23/2024 Does the household have a peak behavioral health serviceslar source of income? (Household - for ages [...] iron infusion yet. Pt's made aware that correctional case records supervisor would look into manner. Spoke with dental receptionist at [facility] who stated that order need [...] 08/31/2024 11:20 AM EDT Office Visit Nephrology, [address] [place] [address] Keisha Gunn MD [address] [place] [address] [place] [address] 09/01/2024 10:00 AM EDT Office Visit Otolaryngology/Head & Neck/Facial Plastic Surgery [address] [place] [address] Lexie Aldridge MD [address] [place] [address] 09/05/2024 10:00 AM EDT Office Visit Radiation Oncology, [address] [address] IoMansoor luevano MD [address] [place] [phone] 09/05/2024 11:00 AM EDT Documentation Radiation Oncology, [address] [address] Mansoor Watson MD [address] [place] [phone] Glh, [address] Rad Onc [address] [place] [address] 09/15/2024 3:45 PM EST [facility] [address] [place] [address] Russel Caceres, JESSICA [address] [place] [address] 10/09/2024 2:20 PM EST Office Visit [facility] 21 [place] [address] David Antunez MD 21 [place] [address] 11/14/2024 1:15 PM EST Office Visit MOHS Surgery [facility] [address] [place] [address] Supriya Fernandes MD [address] [place] [phone] 12/21/2024 1:30 PM EST Office Visit Dermatology, [address] [place] [address] [place] [address] [place] [address] Malaika Guzman PA-C [address] [place] [address] 01/22/2025 1:30 PM EDT PulmDiagnostic Pulmonary Function Lab [facility] [address] [facility] [place] [address] [address], Pft [address] [place] [address] 01/22/2025 2:00 PM EDT Office Visit Pulmonary Medicine [facility] [address] [facility] [place] [phone] Dominguez Aguilar MD [address] [facility] [place] [address] 02/05/2025 10:00 AM EDT Office Visit Rheumatology, [facility] 400 [place], [place] [phone] Rafael Hernandez PA-C [address] [place] [address] 02/06/2025 1:30 PM EDT Office Visit Cardiology, [place] 400 [facility] [place] [address] Cherry Warner PA-C 400 [facility] [phone] Scheduled Procedures Name Priority Associated Diagnoses Date/Ti [...] this encounter Medical Devices Implanted Type Area Licensed Home Inspector Device Identifier Shelf Expiration Date Model / Serial / Lot Mesh Perfix Plug Lg [id number] - [id number] Implanted:Qty : 1 on 02/07/2019 by Jonathan Correia DO at OR [facility] Right: Groin CR BARD : DAVOL 09/04/2023 [id number] / / [id number] Cytal Wndmtx 1lyr [id number](150 Units) - [id number] - [id number] Implanted:Qty : 1 on 08/10/2024 by Lexie Aldridge MD at [facility] Left: Leg Upper [employer] [id number] 10/07/2025 [id number] / [id number] / [id number] Cytal Wndmtx 1lyr 7x10cm (70 Units) - [id number] - [id number] Implanted:Qty : 1 on 08/10/2024 by Leixe Aldridge MD at OR [facility] Left: Leg Upper [employer] [id number] 01/05/2026 [id number] / [id number] / [id number] documented as of this encounter Visit Diagnoses Diagnosis Iron deficiency anemia, unspecified iron deficiency anemia type- Primary documented in this encounter Advance Directives Documents on File Type Date Recorded 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
--- OUTSIDE RECORDS SUMMARY | 2024-09-30 18:12 | External Medical Summary | Summary of Care ---
Author Name Unknown Organization [facility] Address [address] [place] [address] Phone [phone] Care Team Providers Care Steamer Tender Name Role Phone Fuentes Ashton MD Primary Care Provider [phone] Reason for Visit * Reason Onset Date Comments Appointment 08/28/2024 Encounter Details Date Type Department Care Team (Late st Contact Info) Description 08/28/2024 Telephone Otolaryngology/Head & Neck/Facial Plastic Surgery [address] [place] [address] Lexie Aldridge MD [address] [place], [place] [phone] Appointment Allergies Active Allergy Reactions Criticality Noted Date Comments Aztreonam Hives Medium 10/11/2019 Cephalosporins Rash 05/24/2017 Tolerated cefazolin during August 2024 admission Chlorhexidine Hives,Rash High 01/02/2022 Full body red rash; "skin peeled completely off" Ciprofloxacin Diarrhea Medium 01/28/2015 Iodinated Contrast Media Abdominal pain High 019 Acute kidney failure Levofloxacin Rash Low 07/28/2019 documented as of this encounter (statuses as of 08/28/2024) Medications Medication Sig Dispensed Refills Start Date [...] Release (PriLOSEC)Indicatio ns:Gastroesophageal reflux disease without esophagitis,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) Inhale 2 Puffs by mouth every 4 hours as needed for Shortness of Breath. 1 Each 07/06/2024 Active Additional Information Patient not taking.Reported on 08/25/2024 Albuterol Sulfate (2.5 MG/3ML) 0.083% Inhalation Nebulization Solution (Proventil)Indicati ons:COPD, group C, by GOLD 2017 classification ([facility]) Inhale 1 Vial via nebulizer every [...] buttocks as needed. 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 Steroid-induced diabetes [...] as of this encounter (statuses as of 08/28/2024) Resolved Problems Problem Noted Date Diagnosed Date [...] chronic kidney disease 08/03/2023 08/03/2023 Atherosclerosis of [place] co ronary artery without angina pectoris 02/01/2023 [...] PL and AMP Hypertensive heart disease w [facility] heart failure and stage 3 chronic [...] as of this encounter (statuses as of 08/28/2024) Immunizations Name Administration Dates Next Due COVID-19 mRNA, LNP-s, No Pre serve, 2-Dose Series ([employer]) 08/15/2021,01/31/2021,01/03/2021 COVID-19, LNP-s, No Preserve , Ruslan-sucrose, Ages 12+ ([employer]) 03/19/2022 COVID-19, MRNA-LNP, 23-24, P F, 30 MCG/0.3 mL, 12 YRS AND ABOVE, IM ([employer]) 10/25/2023 Covid-19, Mrna, Lnp-s, Pf, B ivalent, 30 Mcg, IM, 12 yrs and above (Pfizer) 2022 Pneumococcal Conjugate Vacc, 13 Valent (Prevnar) 01/21/2016 Pneumococcal Conjugate Vacci ne, 20-valent ([id number]) 07/19/2023 Pneumococcal Polysaccharide PPV23 (Pneumovax) 01/13/2011 RSV [...] Miscellaneous Notes * Telephone Encounter - Freya Morales MED ASSIST - 08/28/2024 9:07 AM EDT Patients called in asking why he was never scheduled for a post op appointment for after he was discharged, I got him scheduled for soonest available on 09/01, patient and agreed to this appointment documented in this encounter Plan of Treatment Upcoming Encounters Date Type Department Care Team (Late st Contact Info) Description 08/31/2024 11:20 AM EDT Office Visit Nephrology, [address] [phone] Keisha Gunn MD [address] [place] [phone] 09/01/2024 10:00 AM EDT Office Visit Otolaryngology/Head & Neck/Facial Plastic Surgery [address] [facility] [place] [address] Lexie Aldridge MD [address] [place] [address] 09/05/2024 10:00 AM EDT Office Visit Radiation Oncology, [facility] [address] [place] [address] Mansoor Watson MD [address] [place] [phone] 09/05/2024 11:00 AM EDT Documentation Radiation Oncology, [facility] [address] [place] [address] Mansoor Watson MD [address] [place] [phone] [facility], [address] Rad Onc [address] [place] [address] 09/15/2024 3:45 PM EST Office Visit Dental Medicine, [place] [address] [place] [address] Russel Caceres, [facility] [address] [place] [address] 10/09/2024 2:20 PM EST Office Visit [facility] 21 [place] [phone] David Antunez MD [address] [place] [address] 11/14/2024 1:15 PM EST Office Visit MOHS Surgery [facility] 200 [place] [address] Supriya Fernandes MD 200 [place], [place] [phone] 12/21/2024 1:30 PM EST Office Visit Dermatology, Melissa Desir [place] [address] Melissa [facility] 140 [place], [place] [phone] Malaika Guzman PA-C [address] [place] [address] 01/22/2025 1:30 PM EDT PulmDiagnostic Pulmonary Function Lab [facility] [address] [facility] [place] [address] [address], [address] Sonali Thang [place] [address] 01/22/2025 2:00 PM EDT Office Visit Pulmonary Medicine [facility] [address] [facility] [place] [phone] Dominguez Aguilar MD [address] [facility] [address] 02/05/2025 10:00 AM EDT Office Visit Rheumatology, [facility] 400 [facility] [address] Rafael Hernandez PA-C [address] [place] [address] 02/06/2025 1:30 PM EDT Office Visit Cardiology, [address] [place] [address] Cherry Warner PA-C 400 [facility] [phone] Scheduled Procedures Name Priority Associated Diagnoses Date/Ti [...] this encounter Medical Devices Implanted Type Area Retail Sales Clerk Device Identifier Shelf Expiration Date Model / Serial / Lot Mesh Perfix Plug Lg [id number] - [id number] Implanted:Qty : 1 on 02/07/2019 by Jonathan Correia DO at OR [facility] Right: Lelo CR BARD : DAVOL 09/04/2023 [id number] / / [id number] Cytal Wndmtx 1lyr [id number](150 Units) - [id number] - [id number] Implanted:Qty : 1 on 08/10/2024 by Lexie Aldridge MD at OR [facility] Left: Leg Upper [employer] [id number] 10/07/2025 [id number] / [id number] / [id number] Cytal Wndmtx 1lyr 7x10cm (70 Units) - [id number] - [id number] Implanted:Qty : 1 on 08/10/2024 by Lexie Aldridge MD at OR [facility] Left: Leg Upper [employer] [id number] 01/05/2026 [id number] / [id number] / [id number] documented as of this encounter Advance Directives Documents on File Type Date Recorded 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
--- OUTSIDE RECORDS SUMMARY | 2024-09-30 18:12 | External Medical Summary ---
Author Name Unknown Address Unknown Organization K01:[facility] [place] [address] [place] [address] Laboratory Report Ordering Provider Test Date Status AMY AVILA 08/25/2024 15:29:16 Final Observation Date Value Abnormality Reference (Units ) Status Iron 08/25/2024 15:29:16 72 45-176 (ug/dL) Final Iron-binding capacity 08/25/2024 15:29:16 230 Below low normal 250-425 (ug/dL) Final Transferrin Sat % 08/25/2024 15:29:16 31 15-55 (%) Final Performing Location [facility] - [address] [place] [address]
--- OUTSIDE RECORDS SUMMARY | 2024-09-30 18:12 | External Medical Summary | Summary of Care ---
Author Name Unknown Organization [facility] Address [address] [place] [address] Phone [phone] Care Team Providers Care Career Developer Name Role Phone Fuentes Ashton MD Primary Care Provider +1 [phone] Reason for Visit * Reason Comments Outpatient Testing Encounter Details Date Type Department Care Team (Late st Contact Info) Description 08/25/2024 3:20 PM EDT Laboratory Laboratory, [place] [address] [place] [address] [place], Lab [address] [place] [address] Other iron deficiency anemia Allergies Active Allergy Reactions Criticality Noted Date Comments Aztreonam Hives Medium 10/11/2019 Cephalosporins Rash 05/24/2017 Tolerated cefazolin during August 2024 admission Chlorhexidine Hives,Rash High 01/02/2022 Full body red rash; "skin peeled completely off" Ciprofloxacin Diarrhea Medium 01/28/2015 Iodinated Contrast Media Abdominal pain High 019 Acute kidney failure Levofloxacin Rash Low 07/28/2019 documented as of this encounter (statuses as of 08/25/2024) Medications Medication Sig Dispensed Refills Start Date [...] Inhalation Aerosol Powder Breath ActivatedIndication s:COPD, moderate ([facility]) Inhale 2 Puffs by mouth every 4 hours as needed for Shortness of Breath. 1 Each 07/06/2024 Active Additional Information Patient not taking.Reported on 08/25/2024 Albuterol Sulfate (2.5 MG/3ML) 0.083% Inhalation Nebulization Solution (Proventil)Indicati ons:COPD, group C, by GOLD 2017 classification ([facility] [...] Additional Information Patient not taking.Reported on 08/25/2024 oxyCODONE HCl 5 MG Oral Tablet (Oxy IR) Take 1 Tablet by mouth every 4 hours as needed for severe or breakthrough pain for up to 5 days. 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) 0 03/09/2018 Overview: MRI 02/23 alf (current) use of systemic [...] as of this encounter (statuses as of 08/25/2024) Resolved Problems Problem Noted Date Diagnosed Date [...] chronic kidney disease 08/03/2023 08/03/2023 Atherosclerosis of [place] co ronary artery without angina pectoris 02/01/2023 [...] as of this encounter (statuses as of 08/25/2024) Immunizations Name Administration Dates Next Due COVID-19 mRNA, LNP-s, No Pre serve, 2-Dose Series ([employer]) 08/15/2021,01/31/2021,01/03/2021 COVID-19, LNP-s, No Preserve , Ruslan-sucrose, Ages 12+ ([employer]) 03/19/2022 COVID-19, MRNA-LNP, 23-24, P F, 30 MCG/0.3 mL, 12 YRS AND ABOVE, IM ([facility]) 10/25/2023 Covid-19, Mrna, Lnp-s, Pf, B ivalent, 30 Mcg, IM, 12 yrs and above ([employer]) 2022 Pneumococcal Conjugate Vacc, 13 Valent (Prevnar) 01/21/2016 Pneumococcal Conjugate Vacci ne, 20-valent ([id number]) 07/19/2023 Pneumococcal Polysaccharide PPV23 (Pneumovax) 01/13/2011 RSV [...] Team (Late st Contact Info) Description 08/29/2024 4:00 PM EDT Office Visit Dental Medicine, [place] [address] [place] [address] Russel Caceres, [facility] [address] [place] [address] 08/31/2024 11:20 AM EDT Office Visit Nephrology, [address] [address] Keisha Gunn MD [address] [place] [address] 09/05/2024 10:00 AM EDT Office Visit Radiation Oncology, [facility] 211 [place] [address] Mansoor Watson MD [address] [place] [phone] 09/05/2024 11:00 AM EDT Documentation Radiation Oncology, [facility] [address] [facility] [place] [address] IoMansoor luevano MD [address] [facility] [place] [phone] [address], [address] Rad Onc [address] [place] [address] 10/09/2024 2:20 PM EST Office Visit [facility] 21 [facility] [place] [phone] David Antunez MD 21 [facility] [address] 11/14/2024 1:15 PM EST Office Visit MOHS Surgery [facility] 200 [place] [address] Supriya Fernandes MD 200 [place] [address] 12/21/2024 1:30 PM EST Office Visit Dermatology, Melissa Desir [place] [address] [place] [phone] Malaika Guzman PA-C 27 [place] [address] 01/22/2025 1:30 PM EDT PulmDiagnostic Pulmonary Function Lab [place] [place] [place] [address] [place] [address] [address], [address] [place] [address] 01/22/2025 2:00 PM EDT Office Visit Pulmonary Medicine [place] [address] [place] [phone] Dominguez Aguilar MD [address] [place] [address] 02/05/2025 10:00 AM EDT Office Visit Rheumatology, [facility] 400 [place] [address] Rafael Hernandez PA-C 75[address] [place] [address] 02/06/2025 1:30 PM EDT Office Visit Cardiology, [address] [address] Cherry Warner PA-C 400 [place] [address] Pending Results Name Type Priority Associated Diagnoses Date /Time IRON SCREEN, INCLUDING TIBC Lab Routine Other iron deficiency anemia 08/25/2024 3:29 PM EDT Scheduled Procedures Name Priority Associated Diagnoses Date/Ti [...] this encounter Medical Devices Implanted Type Area Construction Controller Device Identifier Shelf Expiration Date Model / Serial / Lot Mesh Perfix Plug Lg [id number] - [id number] Implanted:Qty : 1 on 02/07/2019 by Jonathan Correia DO at OR [facility] Right: Groin CR BARD : DAVOL 09/04/2023 [id number] / / [id number] Cytal Wndmtx 1lyr [id number](150 Units) - [id number] - [id number] Implanted:Qty : 1 on 08/10/2024 by Lexie Aldridge MD [facility] Left: Leg Upper [employer] [id number] 10/07/2025 [id number] / [id number] / [id number] Cytal Wndmtx 1lyr 7x10cm (70 Units) - [id number] - [id number] Implanted:Qty : 1 on 08/10/2024 by Lexie Aldridge MD at [facility] Left: Leg Upper [employer] [id number] 01/05/2026 [id number] / [id number] / [id number] documented as of this encounter Visit Diagnoses Diagnosis Other iron deficiency anemia documented in this encounter Advance Directives Documents on File Type Date Recorded 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
--- OUTSIDE RECORDS SUMMARY | 2024-09-30 18:12 | External Medical Summary | Summary of Care ---
Author Name Unknown Organization [facility] Address [address] [facility] [place] [address] Phone [phone] Care Team Providers Care Strategic Alliances Manager Name Role Phone Fuentes Ashton MD Primary Care Provider [phone] [phone] Encounter Details Date Type Department Care Team (Late st Contact Info) Description 08/28/2024 Telephone [facility] [place] 21 [place] [address] Devan Garcia MD 21 [place] [address] Allergies Active Allergy Reactions Criticality [...] Release (PriLOSEC)Indicatio ns:Gastroesophageal reflux disease without esophagitis,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 1 Each 11 07/06/2024 Active Additional Information Patient not taking.Reported on 08/25/2024 Albuterol Sulfate (2.5 MG/3ML) 0.083% Inhalation Nebulization Solution (Proventil)Indicati ons:COPD, group C, by GOLD 2017 classification ([facility]) Inhale 1 Vial via nebulizer every [...] Route Frequency Start Date End Date Status Iron Dextran (Infed) IV Push TEST DOSE 25 mgIndications:Iron deficiency anemia, unspecified iron deficiency anemia type 25 mg IV PUSH ONCE 08/28/2024 08/29/2024 Ac tive Iron Dextran (Infed) 975 mg in NSS 250 mL INFUSIONIndications:Iron deficiency anemia, unspecified iron deficiency anemia type 975 mg IVPB ONCE 08/28/2024 08/29/2024 Ac tive Hydrocortisone Sod Suc (PF) (Solu-Cortef) inj 100 mgIndications:Iron deficiency anemia, unspecified iron deficiency anemia type 100 mg IV PUSH ONCE PRN 08/28/2024 08/29/2024 Ac tive Famotidine (Pepcid) inj 20 mgIndications:Iron deficiency anemia, unspecified iron deficiency anemia type 20 mg IV PUSH ONCE PRN 08/28/2024 08/29/2024 Ac tive EPINEPHrine 1 MG/ML inj 0.3 mgIndications:Iron deficiency anemia, unspecified iron deficiency anemia type 0.3 mg IM ONCE PRN 08/28/2024 08/29/2024 Ac tive oxygen GASIndications:Iron deficiency anemia, unspecified iron deficiency anemia type IN OXYGEN 08/28/2024 Ac tive documented as of this encounter (statuses as [...] from 2018 Atherosclerotic heart diseas e of [place] coronary artery without angina pectoris 05/31/2020 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) 0 03/09/2018 Overview: MRI 02/23 longterm (current) use 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 08/03/2023 08/03/2023 Atherosclerosis of [place] co ronary artery without angina pectoris 02/01/2023 [...] mRNA, LNP-s, No Pre serve, 2-Dose Series ([employer]) 08/15/2021,01/31/2021,01/03/2021 COVID-19, LNP-s, No Preserve , Ruslan-sucrose, Ages 12+ ([employer]) 03/19/2022 COVID-19, MRNA-LNP, 23-24, P F, 30 MCG/0.3 mL, 12 YRS AND ABOVE, IM ([facility]) 10/25/2023 Covid-19, Mrna, Lnp-s, Pf, B ivalent, 30 Mcg, IM, 12 yrs and above ([employer]) 2022 Pneumococcal Conjugate Vacc, 13 Valent (Prevnar) 01/21/2016 Pneumococcal Conjugate Vacci ne, 20-valent ([id number]) 07/19/2023 Pneumococcal Polysaccharide PPV23 (Pneumovax) 01/13/2011 RSV [...] encounter Miscellaneous Notes * Telephone Encounter - Makayla Parham, MED ASSIST - 08/28/2024 2:40 PM EDT [...] 08/31/2024 11:20 AM EDT Office Visit Nephrology, [address] [address] Keisha Gunn MD [address] [place] [address] 09/01/2024 10:00 AM EDT Office Visit Otolaryngology/Head & Neck/Facial Plastic Surgery [address] [place] [address] Lexie Aldridge MD [address] [place] [address] 09/05/2024 10:00 AM EDT Office Visit Radiation Oncology, [address] [address] Mansoor Watson MD [address] [place] [phone] 09/05/2024 11:00 AM EDT Documentation Radiation Oncology, [address] [address] Mansoor Watson MD [address] [place] [phone] Gl, [address] Rad Onc [address] [place] [address] 09/15/2024 3:45 PM EST Office Visit Dental Medicine, [place] [address] [place], [place] [phone] Russel Caceres, [facility] [address] [facility], [place] [phone] 10/09/2024 2:20 PM EST Office Visit Family [facility], [place] [address] [place] [address] David Antunez MD [address] [facility] [place] [phone] 11/14/2024 1:15 PM EST Office Visit MOHS Surgery [facility] 200 [place] [address] Supriya Fernandes MD 200 [place] [address] 12/21/2024 1:30 PM EST Office Visit Dermatology, [place] [address] [place], [place] [phone] Malaika Guzman PA-C [address] [place], [place] [phone] 01/22/2025 1:30 PM EDT PulmDiagnostic Pulmonary Function Lab [place] [address] [address] [address], [address] [place] [place] [address] 01/22/2025 2:00 PM EDT Office Visit Pulmonary Medicine Ahmet [place] [address] [phone] Dominguez Aguilar MD [address] [address] 02/05/2025 10:00 AM EDT Office Visit Rheumatology, [address] [place] [address] Rafael Hernandez PA-C [facility] [place] [address] 02/06/2025 1:30 PM EDT Office Visit Cardiology, [address] [address] Cherry Warner PA-C [address] [place], [place] [phone] Scheduled Procedures Name Priority Associated Diagnoses Date/Ti [...] this encounter Medical Devices Implanted Type Area Dial Equipment Engineer Device Identifier Shelf Expiration Date Model / Serial / Lot Mesh Perfix Plug Lg [id number] - [id number] Implanted:Qty : 1 on 02/07/2019 by Jonathan Correia DO at OR [facility] Right: Groin CR BARD : DAVOL 09/04/2023 [id number] / / [id number] Cytal Wndmtx 1lyr 33h65me(150 Units) - [id number] - [id number] Implanted:Qty : 1 on 08/10/2024 by Lexie Aldridge MD at OR [facility] Left: Leg Upper [employer] [id number] 10/07/2025 [id number] / [id number] / [id number] Cytal Wndmtx 1lyr 7x10cm (70 Units) - [id number] - [id number] Implanted:Qty : 1 on 08/10/2024 by Lexie Aldridge MD at OR [facility] Left: Leg Upper ANDREA CUMMINGS [id number] 01/05/2026 [id number] / [id number] / [id number] documented as of this encounter Visit Diagnoses Diagnosis Iron deficiency anemia, unspecified iron deficiency anemia type- Primary documented in this encounter Advance Directives Documents on File Type Date Recorded 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
--- OUTSIDE RECORDS SUMMARY | 2024-09-30 18:12 | External Medical Summary | Summary of Care ---
Author Name Unknown Organization [facility] Address [address] [place] [place] [address] Phone [phone] Care Team Providers Care Skimmer Scoop Operator Name Role Phone Fuentes Ashton MD Primary Care Provider [phone] Reason for Visit * Reason Onset Date Comments Medical Questions 08/25/2024 Encounter Details Date Type Department Care Team (Late st Contact Info) Description 08/25/2024 Telephone Dermatology [facility] Fr[place] 200 [facility] [place] [address] Supriya Fernandes MD [address] [facility] [address] Medical Questions Allergies Active Allergy Reactions Criticality Noted Date [...] Delayed Release (PriLOSEC)Indicatio ns:Gastroesophageal reflux disease without 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 [...] chronic kidney disease 08/03/2023 08/03/2023 Atherosclerosis of [place] co ronary artery without angina pectoris 02/01/2023 [...] to compare.This interpretation has been electronically signed: Fracno Hamilton 08/15/2020 05:46:38 PM Specimen Collected: 08/12/20 [...] Cachexia 08/30/2019 05/31/2020 Hypertensive heart disease w [facility] [place] heart failure and stage 5 chronic kidney [...] AMP Hypertensive heart disease w [facility] [place] heart failure and stage 3 chronic kidney [...] mRNA, LNP-s, No Pre serve, 2-Dose Series ([employer]) 08/15/2021,01/31/2021,01/03/2021 COVID-19, LNP-s, No Preserve , Ruslan-sucrose, Ages 12+ ([employer]) 03/19/2022 COVID-19, MRNA-LNP, 23-24, P F, 30 MCG/0.3 mL, 12 YRS AND ABOVE, IM ([facility] 10/25/2023 Covid-19, Mrna, Lnp-s, Pf, B ivalent, 30 Mcg, IM, 12 yrs and above ([employer]) 2022 Pneumococcal Conjugate Vacc, 13 Valent (Prevnar) 01/21/2016 Pneumococcal Conjugate Vacci ne, 20-valent ([id number]) 07/19/2023 Pneumococcal Polysaccharide PPV23 (Pneumovax) 01/13/2011 RSV [...] Encounter - Gabriela Boone RN - 08/29/2024 2:53 PM EDT Pt's (Karen) made aware that pt does not need additional antibiotics at this time. * Telephone Encounter - Gabriela Boone RN - 08/29/2024 2:37 PM EDT Images from the original note were not included. Lexie Aldridge MD Brooks, Jennifer Leigh, MD20 hours ago (6:02 PM) No, he shouldn't have to be on an abx at this point. Thanks! Lexie * Telephone Encounter - Supriya Fernandes MD - 08/28/2024 5:31 PM EDT Patient no longer needs to be on doxycycline from my perspective. Dr. Aldridge, did you want patient to be on post-op antibiotics currently? * Telephone Encounter - Gabriela Boone RN - 08/25/2024 3:43 PM EDT Pt was taking Doxycycline prior to neck composite resection, left neck dissection, left pectoralis major flap on 08/10/24. On discharge instructions, pt was to continue taking doxycycline. When pt saw Dr. Abel for hospital discharge follow up on 08/25/24, it was not clear how long pt should be taking the doxycycline following surgery. Dr. Abel did order another 7 days of Doxycycline, but wanted to follow up with provider to see howlong pt should be on Doxycycline following this surgery. Dr. Fernandes, It looked like pt was started on Doxycyline prior to surgery. Do you have any recommendations for how long pt should continue taking the Doxycyline following this surgery? Thank you! documented in this encounter Plan of Treatment Upcoming Encounters Date Type Department Care Team (Late st Contact Info) Description 08/31/2024 11:20 AM EDT Office Visit Nephrology, [facility] [address] [place] [address] Keisha Gunn MD [address] [place] [address] 09/01/2024 10:00 AM EDT Office Visit Otolaryngology/Head & Neck/Facial Plastic Surgery [address] [place] [address] Lexie Aldridge MD [address] [place] [address] 09/05/2024 10:00 AM EDT Office Visit Radiation Oncology, [facility] [address] [place] [address] Mansoor Watson MD [address] [place] [phone] 09/05/2024 11:00 AM EDT Documentation Radiation Oncology, [facility] [address] [facility], [place] [phone] IovoliMansoor MD [address] [place] [phone] Gl, [address] Rad Onc [address] [place], [place] [phone] 09/15/2024 3:45 PM EST Office Visit Dental Medicine, [place] [address] [place], [place] [phone] Russel Caceres, [facility] [address] [place], [place] [phone] 10/09/2024 2:20 PM EST Office Visit [facility] [address] [place] [phone] David Antunez MD [address] [place] [address] 11/14/2024 1:15 PM EST Office Visit MOHS Surgery [facility] 200 [place] [address] Supriya Fernandes MD 200 [place] [address] 12/21/2024 1:30 PM EST Office Visit Dermatology, [place] [address] [place] [address] Malaika Guzman PA-C [address] [place] [phone] 01/22/2025 1:30 PM EDT PulmDiagnostic Pulmonary Function Lab Phu [place] [address] [phone] West, [address] [place] [address] 01/22/2025 2:00 PM EDT Office Visit Pulmonary Medicine [facility] [address] [phone] Dominguez Aguilar MD [address] [facility] [place] [address] 02/05/2025 10:00 AM EDT Office Visit Rheumatology, [facility] 400 [facility], [place] [address] Rafael Hernandez PA-C [address] [facility] [address] 02/06/2025 1:30 PM EDT Office Visit Cardiology, [place] [address] [facility] [address] Cherry Warner PA-C [address] [facility] [address] Scheduled Procedures Name Priority Associated Diagnoses Date/Ti [...] this encounter Medical Devices Implanted Type Area Compressor Battery Pellets Device Identifier Shelf Expiration Date Model / Serial / Lot Mesh Perfix Plug Lg [id number] - [id number] Implanted:Qty : 1 on 02/07/2019 by Jonathan Correia DO at OR [facility] Right: Groin CR BARD : DAVOL 09/04/2023 [id number] / / [id number] Cytal Wndmtx 1lyr [id number](150 Units) - [id number] - [id number] Implanted:Qty : 1 on 08/10/2024 by Lexie Aldridge MD at OR [facility] Left: Leg Upper [employer] [id number] 10/07/2025 [id number] / [id number] / [id number] Cytal Wndmtx 1lyr 7x10cm (70 Units) - [id number] - [id number] Implanted:Qty : 1 on 08/10/2024 by Lexie Aldridge MD at OR [facility] Left: Leg Upper [employer] [id number] 01/05/2026 [id number] / [id number] / [id number] documented as of this encounter Advance Directives Documents on File Type Date Recorded 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
--- OUTSIDE RECORDS SUMMARY | 2024-09-30 18:12 | External Medical Summary | Summary of Care ---
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) 0 03/09/2018 Overview: MRI 02/23 [facility] (current) use 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 08/03/2023 08/03/2023 Atherosclerosis of [place] co ronary artery without angina pectoris 02/01/2023 [...] mRNA, LNP-s, No Pre serve, 2-Dose Series ([employer]) 08/15/2021,01/31/2021,01/03/2021 COVID-19, LNP-s, No Preserve , Ruslan-sucrose, Ages 12+ ([employer]) 03/19/2022 COVID-19, MRNA-LNP, 23-24, P F, 30 MCG/0.3 mL, 12 YRS AND ABOVE, IM ([facility]) 10/25/2023 Covid-19, Mrna, Lnp-s, Pf, B ivalent, 30 Mcg, IM, 12 yrs and above ([employer]) 2022 Pneumococcal Conjugate Vacc, 13 Valent (Prevnar) 01/21/2016 Pneumococcal Conjugate Vacci ne, 20-valent ([id number]) 07/19/2023 Pneumococcal Polysaccharide PPV23 (Pneumovax) 01/13/2011 RSV [...] encounter Miscellaneous Notes * Telephone Encounter - Devan Garcia MD - 08/28/2024 2:16 PM EDT Please call patient let him know that I order iron infusion, the infusion center we will call him to schedule this infusion. documented in this encounter Plan of Treatment Upcoming Encounters Date Type Department Care Team (Late st Contact Info) Description 08/31/2024 11:20 AM EDT Office Visit Nephrology, [address] [address] Keisha Gunn MD [address] [place] [phone] 09/01/2024 10:00 AM EDT Office Visit Otolaryngology/Head & Neck/Facial Plastic Surgery [facility] [place] [address] Lexie Aldridge MD [facility] [place] [address] 09/05/2024 10:00 AM EDT Office Visit Radiation Oncology, [address] [address] Mansoor Watson MD [address] [place] [address] 09/05/2024 11:00 AM EDT Documentation Radiation Oncology, [address] [address] Mansoor Watson MD [address] [place] [address] [facility], [address] Rad Onc [address] [place] [address] 09/15/2024 3:45 PM EST Office [place] [address] [place] [address] Russel Caceres, JESSICA [address] [place] [address] 10/09/2024 2:20 PM EST Office Visit [facility] [phone] David Antunez MD 21 [place] [address] 11/14/2024 1:15 PM EST Office Visit MOHS Surgery [facility] 200 [place] [address] Supriya Fernandes MD 200 [facility] [place] [address] 12/21/2024 1:30 PM EST Office Visit Dermatology, Melissa Desir [place] [address] [facility] 140 [place] [address] Malaika Guzman PA-C [address] [place], [place] [phone] 01/22/2025 1:30 PM EDT PulmDiagnostic Pulmonary Function Lab [facility] [address] [facility] [place] [address] West, [address] [facility] [place] [address] 01/22/2025 2:00 PM EDT Office Visit Pulmonary Medicine [facility] [address] [phone] Dominguez Aguilar MD [address] [facility] [place] [address] 02/05/2025 10:00 AM EDT Office Visit Rheumatology, [address] [address] Rafael Hernandez PA-C [address] [facility], [place] [address] 02/06/2025 1:30 PM EDT Office Visit Cardiology, [place] [address] [place] [address] Cherry Warner PA-C [address] [place] [phone] Scheduled Procedures Name Priority Associated Diagnoses Date/Ti [...] this encounter Medical Devices Implanted Type Area Hat Trimmer Device Identifier Shelf Expiration Date Model / Serial / Lot Mesh Perfix Plug Lg [id number] - [id number] Implanted:Qty : 1 on 02/07/2019 by Jonathan Correia DO at OR [facility] Right: Groin CR BARD : DAVOL 09/04/2023 [id number] / / [id number] Cytal Wndmtx 1lyr 55b02yd(150 Units) - [id number] - [id number] Implanted:Qty : 1 on 08/10/2024 by Lexie Aldridge MD at OR [facility] Left: Leg Upper [employer] [id number] 10/07/2025 [id number] / [id number] / [id number] Cytal Wndmtx 1lyr 7x10cm (70 Units) - [id number] - [id number] Implanted:Qty : 1 on 08/10/2024 by Lexie Aldridge MD at OR [facility] Left: Leg Upper [employer] [id number] 01/05/2026 [id number] / [id number] / [id number] documented as of this encounter Visit Diagnoses Diagnosis Iron deficiency anemia, unspecified iron deficiency anemia type- Primary documented in this encounter Advance Directives Documents on File Type Date Recorded 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
--- OUTSIDE RECORDS SUMMARY | 2024-09-30 18:12 | External Medical Summary | Summary of Care ---
Author Name Unknown Organization [facility] Address [address] [facility] [place] [address] Phone [phone] Care Team Providers Care Infusion Rn Name Role Phone Fuentes Ashton MD Primary Care Provider [phone] Encounter Details Date Type Department Care Team (Late st Contact Info) Description 08/25/2024 Telephone [facility] 21 [facility] [place] [address] Fuentes Ashton MD 21 [place] [address] Allergies Active Allergy Reactions Criticality [...] Delayed Release (PriLOSEC)Indicatio ns:Gastroesophageal reflux disease without esophagitis,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 08/03/2023 08/03/2023 Atherosclerosis of [place] co ronary artery without angina pectoris 02/01/2023 [...] mRNA, LNP-s, No Pre serve, 2-Dose Series ([employer]) 08/15/2021,01/31/2021,01/03/2021 COVID-19, LNP-s, No Preserve , Ruslan-sucrose, Ages 12+ (Pfizer) 03/19/2022 COVID-19, MRNA-LNP, 23-24, P F, 30 MCG/0.3 mL, 12 YRS AND ABOVE, IM ([facility]) 10/25/2023 Covid-19, Mrna, Lnp-s, Pf, B ivalent, 30 Mcg, IM, 12 yrs and above (Pfizer) 2022 Pneumococcal Conjugate Vacc, 13 Valent (Prevnar) 01/21/2016 Pneumococcal Conjugate Vacci ne, 20-valent ([id number]) 07/19/2023 Pneumococcal Polysaccharide PPV23 (Pneumovax) 01/13/2011 RSV [...] 4:00 PM EDT Office Visit Dental Medicine, [place] [address] [place] [address] Russel Caceres, [facility] [address] [place] [address] 08/31/2024 11:20 AM EDT Office Visit Nephrology, [address] [address] Keisha Gunn MD [address] [place] [phone] 09/05/2024 10:00 AM EDT Office Visit Radiation Oncology, [facility] [address] [facility] [address] Mansoor Watson MD [address] [facility] [place] [place] [phone] 09/05/2024 11:00 AM EDT Documentation Radiation Oncology, [facility] [address] [facility] [place] [address] Mansoor Watson MD [address] [facility] [place] [phone] [address] Rad Onc [address] [place] [address] 10/09/2024 2:20 PM EST Office Visit [facility] 21 [facility] [place] [phone] David Antunez MD 21 [place] [address] 11/14/2024 1:15 PM EST Office Visit [facility] 200 [place] [place] [address] Supriya Fernandes MD 200 [place] [address] 12/21/2024 1:30 PM EST Office Visit Dermatology, [place] [address] [place] [address] [place] [address] Malaika Guzman PA-C [address] [place] [place], [place] [phone] 01/22/2025 1:30 PM EDT PulmDiagnostic Pulmonary Function Lab [facility] [place] [address] [phone] [address], [address] [place] [address] 01/22/2025 2:00 PM EDT Office Visit Pulmonary Medicine [facility] [address] [place] [phone] Dominguez Aguilar MD [address] [facility] [place] [address] 02/05/2025 10:00 AM EDT Office Visit Rheumatology, [facility] 400 [place] [address] Rafael Hernandez PA-C [address] [facility], [place] [address] 02/06/2025 1:30 PM EDT Office Visit Cardiology, [place] [facility] [address] Cherry Warner PA-C [address] [facility] [address] Scheduled Procedures Name Priority Associated Diagnoses Date/Ti [...] this encounter Medical Devices Implanted Type Area Station Master Device Identifier Shelf Expiration Date Model / Serial / Lot Mesh Perfix Plug [id number] [id number] - [id number] Implanted:Qty : 1 on 02/07/2019 by Jonathan Correia DO at OR [facility] Right: Groin CR BARD : DAVOL 09/04/2023 [id number] / / [id number] Cytal Wndmtx 1lyr [id number](150 Units) - [id number] - [id number] Implanted:Qty : 1 on 08/10/2024 by Lexie Aldridge MD at [place] [facility] Left: Leg Upper [employer] [id number] 10/07/2025 [id number] / [id number] / [id number] Cytal Wndmtx 1lyr 7x10cm (70 Units) - [id number] - [id number] Implanted:Qty : 1 on 08/10/2024 by Lexie Aldridge MD at [place] [facility] Left: Leg Upper [employer] [id number] 01/05/2026 [id number] / [id number] / [id number] documented as of this encounter Advance Directives Documents on File Type Date Recorded 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
--- OUTSIDE RECORDS SUMMARY | 2024-09-30 18:12 | External Medical Summary | Summary of Care ---
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 Name Role Phone Fuentes Ashton MD Primary Care Provider [phone] Reason for Referral * Evaluate & Treat - Unlimited Visits (Within 3 days (urgent)) - Pending Review Specialty Diagnoses / Procedures Referred By Contaugustin rios Referred To Contact HOME CARE / Home Care Diagnoses Squamous cell carcinoma of neck Pressure injury of left buttock, stage 1 Devan Garcia MD [address] [place] [address] Referral ID Status Reason Start Date Expiration Date Visits Requested Visits Authorized [id number] Pending Review Specialty Services Required 4 [phone] Question Answer Referral Priority Within 3 days (urgent) Where should this appointment be scheduled? [facility] Comments Documentation of [id number] Encounter Addendum Patient Name: Kennedy Davis I certify that this patient is under my care and that I, or a nurse practitioner or physician's chemical laboratory assistant working with me, had a [id number] encounter that meets the physician [id number] encounter requirements with this patient on: 08/25/2024 The encounter with the patient was in whole, or in part, for the following medical condition, which is the primary reason for home health care (List medical condition): Wound care I certify that, based on my findings, the following services are medically necessary home health services: Nursing Physician Signature: Date of Signature: Physician Printed Name: Devan Abel MD Reason for Visit * Reason Comments Hospital Follow-Up [facility] 08/10-08/22, LANI completed 08/23 Encounter Details Date Type Department Care Team (Late st Contact Info) Description 08/25/2024 2:40 PM EDT Office Visit [facility] [address] [place] [place] [address] Devan Garcia MD 21 [facility] [place] [address] Squamous cell carcinoma of neck*; Other iron deficiency anemia; Pressure injury of left buttock, stage 1; Ambulatory dysfunction Allergies Active Allergy Reactions Criticality Noted Date [...] Release (PriLOSEC)Indicati ons:Gastroesophage al reflux disease without esophagitis,FCI (current) use of [...] Powder Breath ActivatedIndicatio ns:COPD, moderate ([facility]) Inhale 2 Puffs by mouth every 4 hours as needed for Shortness of Breath. 1 Each 11 4 Active Additional Information Patient not taking.Reported on 08/25/2024 Albuterol Sulfate (2.5 MG/3ML) 0.083% Inhalation Nebulization Solution (Proventil)Indicat ions:COPD, group C, by GOLD 2017 classification ([facility]) Inhale 1 Vial via nebulizer every [...] 5 days. 8 Tablet 4 08/27/20 24 Active Aquaphor External Ointment Apply topically to affected area 3 times a day. Apply to neck three times daily 396 g 4 Active Folic Acid 1 MG Oral Tablet Take 1 Tablet by mouth in the morning. 30 Tablet 4 09/22/20 24 Active Vitamin B-12 1000 MCG Oral Tablet (Cyanocobalamin) Take 1 Tablet by mouth in the morning. 30 Tablet 4 11/15/20 24 Active Doxycycline Monohydrate 100 MG Oral CapsuleIndications :Squamous cell carcinoma of neck Take 1 Capsule by mouth in the morning and 1 Capsule before bedtime. Do all this for 7 days. 14 Capsule 4 09/01/20 Active Zinc Oxide 40 % External Paste (Desitin)Indicatio ns:Pressure injury of left buttock, stage 1 Apply to buttocks as needed. 57 g Active Doxycycline Monohydrate 100 MG Oral Capsule Take 1 Capsule by mouth in the morning and 1 Capsule before bedtime. Do all this for 14 days. 28 Capsule 4 08/25/20 Discontinu ed(Refill) documented as of this encounter (statuses as [...] from 2018 Atherosclerotic heart diseas e of [place] coronary artery without angina pectoris 05/31/2020 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) 0 03/09/2018 Overview: MRI 02/23 emt intermediate (current) use of [...] chronic kidney disease 08/03/2023 08/03/2023 Atherosclerosis of [place] co ronary artery without angina pectoris 02/01/2023 [...] Cachexia 08/30/2019 05/31/2020 Hypertensive heart disease w [facility] heart failure and stage 5 chronic [...] PL and AMP Hypertensive heart disease w [facility] heart failure and stage 3 chronic [...] mRNA, LNP-s, No Pre serve, 2-Dose Series ([facility]) 08/15/2021,01/31/2021,01/03/2021 COVID-19, LNP-s, No Preserve , Ruslan-sucrose, Ages 12+ (Pfizer) 03/19/2022 COVID-19, MRNA-LNP, 23-24, P F, 30 MCG/0.3 mL, 12 YRS AND ABOVE, IM ([facility]) 10/25/2023 Covid-19, Mrna, Lnp-s, Pf, B ivalent, 30 Mcg, IM, 12 yrs and above ([facility] [facility]) 2022 Pneumococcal Conjugate Vacc, 13 Valent (Prevnar) 01/21/2016 Pneumococcal Conjugate Vacci ne, 20-valent ([id number]) 07/19/2023 Pneumococcal Polysaccharide PPV23 (Pneumovax) 01/13/2011 RSV [...] 1 965 - 1965 Smokeless Tobacco: Never Tobacco [...] Sign Reading Time Taken Comments Blood Pressure 108/54 08/25/2024 2:15 PM EDT Pulse 62 08/25/2024 2:15 PM EDT Temperature 36.7 C (98.1 F) 08/25/2024 2:15 PM ED T Respiratory Rate 20 08/25/2024 2:15 PM EDT Oxygen Saturation 98% 08/25/2024 2:15 PM EDT Inhaled Oxygen Concentration - - Weight 67.5 kg (148 lb 12.8 oz) 08/25/2024 2:15 PM EDT Height - - Body Mass Index 23.3 08/20/2024 6:02 AM EDT documented in this [...] as of this encounter Progress Notes * Devan Garcia MD - 08/25/2024 2:22 PM EDT Images from the original note were not included. History of Present Illness Kennedy Davis is a 78 year old male here for hospital discharge follow-up. Patient was recently admitted to [facility]. The date of discharge was 08/22/2024. Discharge report received and reviewed. Per chart review, pt underwent left neck composite resection, left neck dissection, left pectoralismajor flap 08/10/24. A.left neck: Mohs debulk of squamous cell carcinoma, peripheral/satellite lesions suspicious for intransit mets, PNI noted on Mohs layers 06/27/24 Final Diagnosis A. Skin, L neck, shave: Squamous cell carcinoma, moderately differentiated type at 1421 Clinical History See Order Comments Order Comments 2.5 cm rapidly growing skin colored plaque on L neck. Pre-op Dx: KA/SCC. Shave Pathology: 08/10/24 Final Diagnosis A. Skin and soft [...] node, negative for carcinoma (0/1) at 1930 Tumor board recommended adjuvant radiation therapy. Pt states he will start radiation 6 weeks aftersurgery for 5 days a week for 5 weeks. He has been doing well. , Karen noticed skin pealing off his buttocks. He will resume PT/OT at [facility] in [place] [place] for ambulatory dysfunction, he feels weak but is able to ambulate with a walker. Patient Active Problem List Diagnosis Essential hypertension Gastroesophageal reflux disease without esophagitis HTN, goal below 140/90 Dyslipidemia, goal LDL below 70 Erythema nodosum Acquired hypothyroidism Mediastinal lymphadenopathy Spinal stenosis of lumbar region with neurogenic claudication emt intermediate (current) use 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 Steroid-induced diabetes (HCC) IPMN (intraductal papillary mucinous neoplasm) 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HCC) History of acute tubular necrosis Paroxysmal atrial fibrillation (HCC) Senile osteoporosis Vitamin D deficiency Chronic anticoagulation CKD (chronic kidney disease) stage 4, GFR 15-29 ml/min (HCC) Atherosclerotic heart disease of [place] coronary artery without angina pectoris Atherosclerosis of abdominal aorta (HCC) COPD, moderate (HCC) Telangiectasias 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) Atherosclerosis of renal artery (HCC) Chronic intestinal vascular insufficiency (HCC) History of sepsis Heart failure (HCC) Cat bite Chronic heart failure with preserved ejection fraction (HFpEF) ([facility]) Iron deficiency anemia Hypocalcemia 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 180 Tablet 4 oxyCODONE HCl 5 MG Oral Tablet (Oxy IR) Take 1 Tablet by mouth every 4 hours as needed for severe or breakthrough pain for up to 5 days. 8 Tablet 0 Aquaphor External Ointment Apply topically to affected area 3 times a day. Apply to neck three times daily 396 g 0 Folic Acid 1 MG Oral Tablet Take 1 Tablet by mouth in the morning. 30 Tablet 0 Vitamin B-12 1000 MCG Oral Tablet (Cyanocobalamin) Take 1 Tablet by mouth in the morning. 30 Tablet0 Doxycycline Monohydrate 100 MG Oral Capsule Take 1 Capsule by mouth in the morning and 1 Capsule before bedtime. Do all this for 7 days. 14 Capsule 0 Zinc Oxide 40 % External Paste (Desitin) Apply to buttocks as needed. 57 g 0 PredniSONE (DELTASONE) 20 MG Tablet Take [...] taking: Reported on 08/25/2024) 1 Each 11 Econazole Nitrate 1 % External Cream (Spectazole) Apply to affected area on buttock, back and legs twice a day for 6 weeks (Patient not taking: Reported on 08/25/2024) 170 g 3 No current facility-administered medications for this visit. Current and discharge medications have been reconciled. Review of patient's allergies indicates: Allergen Reactions Chlorhexidine Hives and Rash Full body red rash; "skin peeled completely off" Iodinated Contrast Media Abdominal pain Acute kidney failure Azactam [Aztreonam] Hives Ciprofloxacin Diarrhea Cephalosporins Rash Tolerated cefazolin during August 2024 admission Levofloxacin Rash Physical Exam BP 108/54 | Pulse 62 | Temp 36.7 C (98.1 F) (Tympanic) | Resp 20 | Wt 67.5 kg (148 lb 12.8 oz) | SpO2 98% | BMI 23.30 kg/m | BSA 1.79 m Physical Exam Vitals reviewed. Constitutional: General: He is not in acute distress. Appearance: Normal appearance. HENT: Mouth/Throat: Mouth: Mucous membranes are moist. Eyes: Conjunctiva/sclera: Conjunctivae normal. Cardiovascular: Heart sounds: Normal heart sounds. No murmur heard. Pulmonary: Effort: Pulmonary effort is normal. No respiratory distress. Breath sounds: Normal breath sounds. Musculoskeletal: Right lower leg: No edema. Left lower leg: No edema. Neurological: General: No focal deficit present. Mental Status: He is alert and oriented to person, place, and time. CBC: Component Latest Ref Rng 05/08/2024 05/25/2024 06/09/2024 07/12/2024 07/28/2024 08/10/2024 08/11/2024 08/12/2024 HGB 14.0 - 16.8 g/dL 10.8 (L) 11.3 (L) 12.1 (L) 12.6 (L) 11.1 (L) 7.7 (L) 7.2 (L) 7.8 (L) HGB 7.8 (L) 6.6 (L) 9.2 (L) HGB 9.4 (L) 6.1 (L) 8.2 (L) HGB 6.0 (LL) 8.0 (L) HGB 6.5 (L) Component Latest Ref Rng 08/13/2024 08/14/2024 08/15/2024 08/16/2024 08/17/2024 08/18/2024 08/19/2024 HGB 14.0 - 16.8 g/dL 8.9 (L) 6.8 (L) 7.0 (L) 7.3 (L) 5.9 (LL) 6.7 (L) 6.4 (L) HGB 8.9 (L) 7.9 (L) 6.9 (L) 7.1 (L) 7.1 (L) 6.4 (L) 6.8 (L) HGB 6.8 (L) 8.5 (L) 6.5 (L) 6.0 (LL) HGB 7.9 (L) HGB 7.9 (L) Component Latest Ref Rng 08/20/2024 08/21/2024 08/22/2024 HGB 14.0 - 16.8 g/dL 7.1 (L) 6.9 (L) 7.6 (L) Assessment and Plan Hospital Discharge Follow-up Squamous cell carcinoma of neck -- cutaneous (Primary) S/p Left neck composite resection including skin, underlying subcutaneous tissue and portion of left SCM muscle, left neck dissection (levels II-V), Left pectoralis major myocutaneous pedicled flap, split thickness skin graft 08/10/24 Doing well, taking Abx prior to surgery, does not know for how long he should take it but was told it was ppx. I will sent Rx and advised to call ENT and verify if abx needed. My staff will also reach out to them. - HOME HEALTH REFERRAL OP - Doxycycline Monohydrate 100 MG Oral Capsule; Take 1 Capsule by mouth in the morning and 1 Capsulebefore bedtime. Do all this for 7 days. Other iron deficiency anemia Ongoing issue, will check iron lvl, if low, will get infusions. - IRON SCREEN, INCLUDING TIBC; Future; Expected date: 08/25/2024 Pressure injury of left buttock, stage 1 New problem, balanced nutrition advised. HH to monitor/ wound care. - HOME HEALTH REFERRAL OP - Zinc Oxide 40 % External Paste (Desitin); Apply to buttocks as needed. Ambulatory dysfunction Advised [facility]. Fall precautions. Wrap-Up Return in about 6 weeks (around 10/06/2024) for Follow up with PCP. I spent a total of 40-54 minutes (exact time 42 mins) minutes on the date of service in preparation, delivery, and documentation of the care provided to Kennedy Davis excluding any time spent in performance of separately billed services. This chart was completed in part utilizing [employer] Speech Voice Recognition Software. Grammatical errors, random word insertions, pronoun errors, and incomplete sentences are an occasional consequence of this system due to software limitations, ambient noise, and hardware issues. Any formal questions or concerns about the content, text, or information contained within the body of this dictation should be directly addressed to the provider for clarification. documented in this encounter Nursing Notes * Keena Samuel LPN - 08/25/2024 2:12 PM EDT Chief Complaint Patient presents with Hospital Follow-Up [facility] 08/10-08/22, LANI completed 08/23 documented in this encounter Plan of Treatment Upcoming Encounters Date Type Department Care Team (Late st Contact Info) Description 08/29/2024 4:00 PM EDT Office Visit Dental Medicine, [place] [address] [place] [address] Russel Caceres DMD [address] [place] [address] 08/31/2024 11:20 AM EDT Office Visit Nephrology, [address] [address] Keisha Gunn MD [address] [place] [address] 09/05/2024 10:00 AM EDT Office Visit Radiation Oncology, [facility] [address] [facility], [place] [phone] Mansoor Watson MD [address] [place] [phone] 09/05/2024 11:00 AM EDT Documentation Radiation Oncology, [facility] [address] [facility] [place] [address] Mansoor Watson MD [address] [place] [phone] [facility] [address] Rad Onc [address] [place] [phone] 10/09/2024 2:20 PM EST Office Visit [facility] 21 [place] [phone] David Antunez MD [address] [place], [place] [phone] 11/14/2024 1:15 PM EST Office Visit [facility] [address] [place] [address] Supriya Fernandes MD [address] [place] [address] 12/21/2024 1:30 PM EST Office Visit Dermatology, [place] [address] [address] [facility] [address] [place] [phone] Malaika Guzman PA-C [address] [place] [address] 01/22/2025 1:30 PM EDT PulmDiagnostic Pulmonary Function Lab [facility] [address] [facility] [place] [address] [address], [address] [place] [address] 01/22/2025 2:00 PM EDT Office Visit Pulmonary Medicine [facility] [address] [facility] [place] [phone] Dominguez Aguilar MD [address] [facility] [place] [address] 02/05/2025 10:00 AM EDT Office Visit Rheumatology, [facility] [address] [place] [address] Rafael Hernandez PA-C [address] [facility], [place] [address] 02/06/2025 1:30 PM EDT Office [address]iology, [address] [address] Cherry Warner PA-C [address] [place] [phone] Pending Results Name Type Priority Associated Diagnoses Date /Time IRON SCREEN, INCLUDING TIBC Lab Routine Other iron deficiency anemia 08/25/2024 3:29 PM EDT Scheduled Orders Name Type Priority Associated Diagnoses Orde r Schedule IRON SCREEN, INCLUDING TIBC Lab Routine Other iron deficiency anemia Expected: 08/25/2024 (Approximate), Expires: 08/25/2025 Scheduled Procedures Name Priority Associated Diagnoses Date/Ti me COLONOSCOPY FLEXIBLE PROXIMA L DIAGNOSTIC Recall Diverticulosis of sigmoid colon Scheduled Referrals Name Type Priority Associated Diagnoses Orde r Schedule HOME HEALTH REFERRAL OP Referral Within 3 days (urgent) Squamous cell carcinoma of neck Pressure injury of left buttock, stage 1 Ordered: 08/25/2024 Health Maintenance Due Date Last Done Comments [...] this encounter Medical Devices Implanted Type Area Telemetry Nurse Device Identifier Shelf Expiration Date Model / Serial / Lot Mesh Perfix Plug [id number] [id number] - [id number] Implanted:Qty : 1 on 02/07/2019 by Jonathan Correia DO at OR [facility] Right: Groin CR BARD : DAVOL 09/04/2023 [id number] / / [id number] Cytal Wndmtx 1lyr 29o88sp(150 Units) - [id number] - [id number] Implanted:Qty : 1 on 08/10/2024 by Lexie Aldridge MD at OR [facility] Left: Leg Upper [employer] [id number] 10/07/2025 [id number] / [id number] / [id number] Cytal Wndmtx 1lyr 7x10cm (70 Units) - [id number] - [id number] Implanted:Qty : 1 on 08/10/2024 by Lexie Aldridge MD at OR [facility] Left: Leg Upper [employer] [id number] 01/05/2026 [id number] / [id number] / [id number] documented as of this encounter Visit Diagnoses Diagnosis Squamous cell carcinoma of neck- Primary Malignant neoplasm of head, face, and neck Other iron deficiency anemia Pressure injury of left buttock, stage 1 Ambulatory dysfunction documented in this encounter Advance Directives Documents on File Type Date Recorded 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 Adult Child Emergency Contact Care Teams Golf Course Mechanic Relationship Specialty Start Date End Date Fuentes Ashton MD [address] [place] [address] PCP - General Family Medicine 01/30/22 documented as of this encounter
--- OUTSIDE RECORDS SUMMARY | 2024-09-30 18:13 | External Medical Summary | Summary of Care ---
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 1 Each 11 07/06/2024 Active Albuterol Sulfate (2.5 MG/3ML) 0.083% Inhalation Nebulization Solution (Proventil)Indicati ons:COPD, group C, by GOLD 2017 classification ([facility]) Inhale 1 Vial via nebulizer every 4 [...] 6 weeks 170 g 3 07/24/2024 Active oxyCODONE HCl 5 MG Oral Tablet [...] morning. 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 Steroid-induced [...] as of this encounter (statuses as of 08/23/2024) Resolved Problems Problem Noted Date Diagnosed Date [...] chronic kidney disease 08/03/2023 08/03/2023 Atherosclerosis of [place] co ronary artery without angina pectoris 02/01/2023 [...] as of this encounter (statuses as of 08/23/2024) Immunizations Name Administration Dates Next Due COVID-19 mRNA, LNP-s, No Pre serve, 2-Dose Series ([employer]) 08/15/2021,01/31/2021,01/03/2021 COVID-19, LNP-s, No Preserve , Ruslan-sucrose, Ages 12+ (Pfizer) 03/19/2022 COVID-19, MRNA-LNP, 23-24, P F, 30 MCG/0.3 mL, 12 YRS AND ABOVE, IM ([facility] [facility]) 10/25/2023 Covid-19, Mrna, Lnp-s, Pf, B ivalent, 30 Mcg, IM, 12 yrs and above ([employer]) 2022 Pneumococcal Conjugate Vacc, 13 Valent (Prevnar) 01/21/2016 Pneumococcal Conjugate Vacci ne, 20-valent ([id number]) 07/19/2023 Pneumococcal Polysaccharide PPV23 (Pneumovax) 01/13/2011 RSV [...] Date Recorded PHQ Adult Total Score 0 02/07/2024 Hunger Vital Sign Answer Date Recorded Within the past 12 months, y ou worried that your food would run out before you got the money to buy more. Never true 01/31/20 24 Within the past 12 months, t he food you bought just didn't last and you didn't have money to get more. Never true 01/31/2024 Childcare Answer Date Recorded Do you feel overwhelmed with taking care of a child, family member or friend? No 01/31/2024 Does your family need help f inding childcare? (Household - for ages 0-17 years) Not on file 01/31/2024 Clothing Answer Date Recorded Have you been unable to get clothing when it was really needed? No 01/31/2024 Is your family able to get c lothes or diapers when needed? (Household - for ages 0-17 years) Not on file 01/31/2024 Personal Safety Answer Date Recorded Do you feel unsafe or have concerns for your saf ety? No 08/11/2024 Do you have concerns for you r family's safety? (Household - for ages 0-17 years) Not on file 08/11/2024 Utilities Answer Date Recorded Do you have trouble paying y our heating, water, or electric bill? No 08/11/2024 Is your family able to pay t he heat, water, or electric bill? (Household - for ages 0-17 years) Not on file 08/11/2024 Does your family have access to good internet? (Household - for ages 0-17 years) Not on file 08/11/2024 Employment Status Answer Date Recorded Are you unemployed or without regular income? No 01/31/2024 Does the household have a [facility] income? (Household - for ages 0-17 years) Not on file 01/31/2024 Social Connections Answer Date Recorded How often do you feel lonely or isolated from th ose around you? Never 01/31/2024 Financial Resource Strain Answer Date R ecorded Do you have any trouble payi ng for your medications, or do you think you might in the future? No 01/31/2024 Does your family have troubl e paying for medicine? (Household - for ages 0-17 years) Not on file 01/31/2024 Transportation Needs Answer Date Record ed READ ONLY Do you have troubl e getting a ride to medical visits or work? Never True 08/11/2024 Does your family have a hard time getting a ride to doctors visits? (Household - for ages 0-17 years) Not on file 08/11/2024 Has lack of transportation k ept you from medical appointments, meetings, work, or from getting things needed for daily living? Check all that apply. No 08/11/2024 Do you (or your family) have trouble finding or paying for a ride (transportation)? (Household - for ages 0-17 years) Not on file 08/11/2024 Housing Stability Answer Date Recorded Do you currently live in a s helter or have no steady place to sleep at night? No 08/11/2024 READ ONLY Do you think you a re at risk of becoming homeless? No 08/11/2024 Does your family worry about paying for your home or becoming homeless? (Household - for ages 0-17 years) Not on file 1 Are you homeless or worried that you might be in the future? No 08/11/2024 Are you (or your family) spencer eless or worried that you might be in the future? (Household - for ages 0-17 years) Not on file Food Insecurity Answer Date Recorded Do you need food for this week? No 08/11/2024 Are you able to get enough f ood for your family? (Household - for ages 0-17 years) Not on file 08/11/2024 Does your family need food t his week? (Household - for ages 0-17 years) Not on file 08/11/2024 Do you always have enough fo od for your family? (Household - for ages 0-17 years) Not on file 08/11/2024 Sex and Gender Information Value Date Recorded [...] 08/31/2024 11:20 AM EDT Office Visit Nephrology, [facility] [address] [facility][Note 3] [place] [address] Keisha Gunn MD 400 [place] [address] 11/14/2024 1:15 PM EST Office Visit MOHS Surgery [facility] 200 [place] [address] Supriya Fernandes MD [address] [place] [address] 12/21/2024 1:30 PM EST Office Visit Dermatology, Ahmet Rowell [address] [place] [phone] Malaika Guzman PA-C [address] [place] [address] 01/22/2025 1:30 PM EDT PulmDiagnostic Pulmonary Function Lab Ahmet Downing [address] [place] [address] [address], [address] [place] [address] 01/22/2025 2:00 PM EDT Office Visit Pulmonary Medicine [facility] Downing [address] [place] [phone] Dominguez Aguilar MD [address] [place] [address] 02/05/2025 10:00 AM EDT Office Visit Rheumatology, [facility] [address] [facility][Note 3] [place] [address] Rafael Hernandez PA-C [address] [facility], [place] [address] 02/06/2025 1:30 PM EDT Office Visit Cardiology, [address] [place] [address] Cherry Warner PA-C [address] [place] [address] Scheduled Procedures Name Priority Associated Diagnoses Date/Ti [...] 01/30/2025 01/31/2024, 01/07, 09/02/2022, Additional history exists Depression Screening 02/06/2025 02/07/2024 GFR 02/19/2025 08/21/2024, 08/08, 08/17/2024, Additional history exists Albumin/Creatinine Ratio 03/27/2025 024, 01/31/2024, 05/18/2023, Additional history exists O2 ASSESSMENT COMPLETED IN PAST YEAR FOR COPD 08/13/2025 08/13/2024 DTap/Tdap Vaccines (4 - Td or Tdap) [...] encounter Medical Devices Implanted Type Area Hat Ironer Device Identifier Shelf Expiration Date Model / Serial / Lot Mesh Perfix Plug Lg [id number] - [id number] Implanted:Qty : 1 on 02/07/2019 by Jonathan Correia DO at OR [facility] Right: Groin CR BARD : DAVOL 09/04/2023 [id number] / / [id number] Cytal Wndmtx 1lyr [id number](150 Units) - [id number] - [id number] Implanted:Qty : 1 on 08/10/2024 by Lexie Aldridge MD at OR [facility] Left: Leg Upper [employer] [id number] 10/07/2025 [id number] / [id number] / [id number] Cytal Wndmtx 1lyr 7x10cm (70 Units) - [id number] - [id number] Implanted:Qty : 1 on 08/10/2024 by Lexie Aldridge MD at OR [facility] Left: Leg Upper [employer] [id number] 01/05/2026 [id number] / [id number] / [id number] documented as of this encounter Advance Directives Documents on File Type Date Recorded 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
--- OUTSIDE RECORDS SUMMARY | 2024-09-30 18:13 | External Medical Summary | Summary of Care ---
Author Name Unknown Organization [facility] Address [address] [place] [address] Phone [phone] Care Team Providers Care Door Serviceman Name Role Phone Fuentes Ashton MD Primary Care Provider [phone] Encounter Details Date Type Department Care Team (Late st Contact Info) Description 08/24/2024 Telephone Dental Medicine, [facility] [address] [place], [place] [id number] Services, [facility] [address] [place] [address] Allergies Active Allergy Reactions Criticality Noted Date Comments Aztreonam Hives Medium 10/11/2019 Cephalosporins Rash 05/24/2017 Tolerated cefazolin during August 2024 admission Chlorhexidine Hives,Rash High 01/02/2022 Full body red rash; "skin peeled completely off" Ciprofloxacin Diarrhea Medium 01/28/2015 Iodinated Contrast Media Abdominal pain High 019 Acute kidney failure Levofloxacin Rash Low 07/28/2019 documented as of this encounter (statuses as of 08/24/2024) Medications Medication Sig Dispensed Refills Start Date [...] Powder Breath ActivatedIndication s:COPD, moderate ([facility]) Inhale 2 Puffs by mouth every 4 hours as needed for Shortness of Breath. 1 Each 11 07/06/2024 Active Additional Information Patient not taking.Reported on 08/23/2024 Albuterol Sulfate (2.5 MG/3ML) 0.083% Inhalation Nebulization Solution (Proventil)Indicati ons:COPD, group C, by GOLD 2017 classification ([facility]) Inhale 1 Vial via nebulizer [...] 5 days. 8 Tablet 08/22/2024 08/27/20 Active Additional Information Patient not taking.Reported on 08/23/2024 Aquaphor External Ointment Apply topically to affected [...] as of this encounter (statuses as of 08/24/2024) Active Problems Problem Noted Date Diagnosed Date [...] from 2019 Atherosclerotic heart diseas e of [place] coronary artery without angina pectoris 05/31/2020 Nuclear [...] as of this encounter (statuses as of 08/24/2024) Resolved Problems Problem Noted Date Diagnosed Date [...] chronic kidney disease 08/03/2023 08/03/2023 Atherosclerosis of [place] co ronary artery without angina pectoris 02/01/2023 [...] as of this encounter (statuses as of 08/24/2024) Immunizations Name Administration Dates Next Due COVID-19 mRNA, LNP-s, No Pre serve, 2-Dose Series ([employer]) 08/15/2021,01/31/2021,01/03/2021 COVID-19, LNP-s, No Preserve , Ruslan-sucrose, Ages 12+ (Pfizer) 03/19/2022 COVID-19, MRNA-LNP, 23-24, P F, 30 MCG/0.3 mL, 12 YRS AND ABOVE, IM ([employer] [facility]) 10/25/2023 Covid-19, Mrna, Lnp-s, Pf, B ivalent, 30 Mcg, IM, 12 yrs and above (Pfizer) 2022 Pneumococcal Conjugate Vacc, 13 Valent (Prevnar) 01/21/2016 Pneumococcal Conjugate Vacci ne, 20-valent ([id number]) 07/19/2023 Pneumococcal Polysaccharide PPV23 (Pneumovax) 01/13/2011 RSV [...] encounter Miscellaneous Notes * Telephone Encounter - Hannah Winn OSA - 08/24/2024 10:48 AM EDT 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 , eval for radiation therapy documented in this encounter Plan of Treatment Upcoming Encounters Date Type Department Care Team (Late st Contact Info) Description 08/25/2024 2:40 PM EDT Office Visit [facility] [address] [place] [phone] Devan Garcia MD [address] [place] [address] 08/31/2024 11:20 AM EDT Office Visit Nephrology, [facility] [address] [place] [address] Keisha Gunn MD [address] [place] [phone] 11/14/2024 1:15 PM EST Office Visit MOHS Surgery [facility] [place] [address] [place] [address] Supriya Fernandes MD 200 [place] [address] 12/21/2024 1:30 PM EST Office Visit Dermatology, Ahmet Rowell [address] [place] [address] Malaika Guzman PA-C [address] [place] [address] 01/22/2025 1:30 PM EDT PulmDiagnostic Pulmonary Function Lab [facility] [place] [address] [facility] [place] [address] [address], [address] [place] [address] 01/22/2025 2:00 PM EDT Office Visit Pulmonary Medicine [facility] [address] [facility] [place] [phone] Dominguez Aguilar MD [address] [facility] [place] [address] 02/05/2025 10:00 AM EDT Office Visit Rheumatology, [facility] 400 [place] [address] Rafael Hernandez PA-C [address] [place] [address], [place] [address] 02/06/2025 1:30 PM EDT Office Visit Cardiology, [address] [place] [address] Cherry Warner PA-C [address] [facility] [address] Scheduled Procedures Name Priority Associated Diagnoses Date/Ti [...] this encounter Medical Devices Implanted Type Area Emery Wheel Molder Device Identifier Shelf Expiration Date Model / Serial / Lot Mesh Perfix Plug Lg [id number] - [id number] Implanted:Qty : 1 on 02/07/2019 by Jonathan Correia DO at OR [facility] Right: Groin CR BARD : DAVOL 09/04/2023 [id number] / / [id number] Cytal Wndmtx 1lyr [id number](150 Units) - [id number] - [id number] Implanted:Qty : 1 on 08/10/2024 by Lexie Aldridge MD at [place] [facility] Left: Leg Upper [employer] [id number] 10/07/2025 [id number] / [id number] / [id number] Cytal Wndmtx 1lyr 7x10cm (70 Units) - [id number] - [id number] Implanted:Qty : 1 on 08/10/2024 by Lexie Aldridge MD at OR [facility] Left: Leg Upper [employer] [id number] 01/05/2026 [id number] / [id number] / [id number] documented as of this encounter Advance Directives Documents on File Type Date Recorded 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
--- OUTSIDE RECORDS SUMMARY | 2024-09-30 18:13 | External Medical Summary | Summary of Care ---
Author Name Unknown Organization [facility] Address [address] [place] [address] Phone [phone] Care Team Providers Care System Auditor Name Role Phone Fuentes Ashton MD Primary Care Provider [phone] Reason for Visit * Reason Onset Date Comments Referral 08/24/2024 Encounter Details Date Type Department Care Team (Late st Contact Info) Description 08/24/2024 Telephone Radiation Oncology, [facility] [address] [place] [address] Services, Scheduling [address] [place] [address] Referral Allergies Active Allergy Reactions Criticality Noted Date [...] Release (PriLOSEC)Indicatio ns: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 1 Each 11 07/06/2024 Active Additional Information Patient not taking.Reported on 08/23/2024 Albuterol Sulfate (2.5 MG/3ML) 0.083% Inhalation Nebulization Solution (Proventil)Indicati ons:COPD, group C, by GOLD 2017 classification ([facility]) Inhale 1 Vial via nebulizer every 4 [...] the morning. 30 Tablet 08/23/2024 09/22/20 Active documented as of this encounter (statuses [...] from 2018 Atherosclerotic heart diseas e of [place] coronary artery without angina pectoris 05/31/2020 Nuclear [...] chronic kidney disease 08/03/2023 08/03/2023 Atherosclerosis of [place] co ronary artery without angina pectoris 02/01/2023 [...] PL and AMP Hypertensive heart disease w [facility] heart failure and stage 3 [...] mRNA, LNP-s, No Pre serve, 2-Dose Series ([employer]) 08/15/2021,01/31/2021,01/03/2021 COVID-19, LNP-s, No Preserve , Ruslan-sucrose, Ages 12+ ([employer]) 03/19/2022 COVID-19, MRNA-LNP, 23-24, P F, 30 MCG/0.3 mL, 12 YRS AND ABOVE, IM ([employer]) 10/25/2023 Covid-19, Mrna, Lnp-s, Pf, B ivalent, 30 Mcg, IM, 12 yrs and above (Pfizer) 2022 Pneumococcal Conjugate Vacc, 13 Valent (Prevnar) 01/21/2016 Pneumococcal Conjugate Vacci ne, 20-valent ([id number]) 07/19/2023 Pneumococcal Polysaccharide PPV23 (Pneumovax) 01/13/2011 RSV [...] Tobacco: Former Cigarettes 1 1 965 - 1966 Smokeless Tobacco: [...] Miscellaneous Notes * Telephone Encounter - Freya Mackenzie CMA - 08/24/2024 11:56 AM EDT Reviewed with Dr. Watson, he would like patient scheduled for soonest available that works with patient. Patient's declines sooner appointment than 09/05/24. * Telephone Encounter - Freya Mackenzie CMA - 08/24/2024 11:[address] Watson, can you please review and advise where you would like patient? 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 Dr. Watson does not have availability within 3 days. Please advise on scheduling. Thank you! documented in this encounter Plan of Treatment Upcoming Encounters Date Type Department Care Team (Late st Contact Info) Description 08/25/2024 2:40 PM EDT [facility] [address] [place] [address] [place] [phone] Devan Garcia MD [address] [place] [phone] 08/31/2024 11:20 AM EDT Office Visit Nephrology, [facility] 400 [place] [address] Keisha Gunn MD 400 [place] [address] 09/05/2024 10:00 AM EDT Office Visit Radiation Oncology, [address] [address] IovolMansoor mills MD [address] [place] [phone] 09/05/2024 11:00 AM EDT Documentation Radiation Oncology, [address] [address] IovolMansoor mills MD [address] [place] [phone] [facility] Rad Onc [address] [place] [address] 11/14/2024 1:15 PM EST Office Visit [facility] Surgery [facility] 200 [place] [address] Supriya Fernandes MD 200 [place] [address] 12/21/2024 1:30 PM EST Office Visit Dermatology, Ahmet Rowell [address] [place] [address] Malaika Guzman PA-C [address] [place] [address] 01/22/2025 1:30 PM EDT PulmDiagnostic Pulmonary Function Lab [facility] [address] [facility] [place] [address] [address], [address] [place] [address] 01/22/2025 2:00 PM EDT Office Visit Pulmonary Medicine [facility] [address] [facility] [place] [phone] Dominguez Aguilar MD [address] [facility] [place] [address] 02/05/2025 10:00 AM EDT Office Visit [address]umatology, [address] [address] Rafael Hernandez PA-C [address] [place] [address], [place] [address] 02/06/2025 1:30 PM EDT Office Visit Cardiology, [address] [address] Cherry Warner PA-C [address] [facility] [address] Scheduled Procedures Name Priority Associated Diagnoses Date/Ti [...] this encounter Medical Devices Implanted Type Area Receiving Specialist Device Identifier Shelf Expiration Date Model / Serial / Lot Mesh Perfix Plug Lg [id number] - [id number] Implanted:Qty : 1 on 02/07/2019 by Jonathan Correia DO at OR [facility] Right: Lelo KEBEDE BARD : DAVOL 09/04/2023 [id number] / / [id number] Cytal Wndmtx 1lyr [id number](150 Units) - [id number] - [id number] Implanted:Qty : 1 on 08/10/2024 by Lexie Aldridge MD at OR [facility] Left: Leg Upper [employer] [id number] 10/07/2025 [id number] / [id number] / [id number] Cytal Wndmtx 1lyr 7x10cm (70 Units) - [id number] - [id number] Implanted:Qty : 1 on 08/10/2024 by Lexie Aldridge MD at OR [facility] Left: Leg Upper [employer] [id number] 01/05/2026 [id number] / [id number] / [id number] documented as of this encounter Advance Directives Documents on File Type Date Recorded 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
--- OUTSIDE RECORDS SUMMARY | 2024-09-30 18:13 | External Medical Summary | Summary of Care ---
Author Name Unknown Organization [facility] Address [address] [place] [address] Phone [phone] Care Team Providers Care Erp Analyst Name Role Phone Fuentes Ashton MD Primary Care Provider [phone] Encounter Details Date Type Department Care Team (Late st Contact Info) Description 08/24/2024 Telephone Dental Medicine, [place] [address], [place] [id number] Services, [facility] [address] [place] [address] Allergies Active Allergy Reactions Criticality Noted Date [...] Delayed Release (PriLOSEC)Indicatio ns:Gastroesophageal reflux disease without esophagitis,group home (current) use [...] Inhalation Aerosol Powder Breath ActivatedIndication s:COPD, moderate ([facility]) Inhale 2 Puffs by mouth every 4 hours as needed for Shortness of Breath. 1 Each 11 07/06/2024 Active Additional Information Patient not taking.Reported on 08/23/2024 Albuterol Sulfate (2.5 MG/3ML) 0.083% Inhalation Nebulization Solution (Proventil)Indicati ons:COPD, group C, by GOLD 2017 classification ([facility] [...] 2019 Atherosclerotic heart diseas e of [place] coronary artery without angina pectoris 05/31/2020 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) 0 03/09/2018 Overview: MRI 02/23 group home (current) use 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 Steroid-induced diabetes [...] kidney disease 08/03/2023 08/03/2023 Atherosclerosis of [place] co ronary artery without angina pectoris 02/01/2023 [...] of both lower extremities 08/27/2016 10/22/2017 Overview: JAUN from 2016 show no evidence of PVD. [...] mRNA, LNP-s, No Pre serve, 2-Dose Series (InterResolve) 08/15/2021,01/31/2021,01/03/2021 COVID-19, LNP-s, No Preserve , Ruslan-sucrose, Ages 12+ (Pfizer) 03/19/2022 COVID-19, MRNA-LNP, 23-24, P F, 30 MCG/0.3 mL, 12 YRS AND ABOVE, IM ([email or web address]) 10/25/2023 Covid-19, Mrna, Lnp-s, Pf, B ivalent, 30 Mcg, IM, 12 yrs and above (Pfizer) 2022 Pneumococcal Conjugate Vacc, 13 Valent (Prevnar) 01/21/2016 Pneumococcal Conjugate Vacci ne, 20-valent ([id number]) 07/19/2023 Pneumococcal Polysaccharide PPV23 (Pneumovax) 01/13/2011 RSV [...] Description 08/25/2024 2:40 PM EDT Office Visit [facility] [address] [facility] [phone] Devan Garcia MD [address] [place] [address] 08/31/2024 11:20 AM EDT Office Visit Nephrology, [facility] [address] [place] [address] Keisha Gunn MD [address] [place] [phone] 11/14/2024 1:15 PM EST Office Visit [facility] [place] [address] [place] [address] Supriya Fernandes MD [address] [place] [address] 12/21/2024 1:30 PM EST Office Visit Dermatology, [facility] [address] [place] [address] [place] [address] Malaika Guzman PA-C [address] [place] [address] 01/22/2025 1:30 PM EDT PulmDiagnostic Pulmonary Function Lab [facility] [place] [facility] [place] [address] [facility] [place] [address] [address], [address] [place] [address] 01/22/2025 2:00 PM EDT Office Visit Pulmonary Medicine [facility] [place] [facility] [place] [address] [facility] [place] [facility] [place] [phone] Dominguez Aguilar MD [address] [facility] [place] [facility] [place] [address] 02/05/2025 10:00 AM EDT Office Visit Rheumatology, [facility] [address] [place] [address] Rafael Hernandez PA-C [address] [place] [address], [place] [address] 02/06/2025 1:30 PM EDT Office Visit Cardiology, [address] [place] [address] Cherry Warner [facility]-C [address] [facility] [address] Scheduled Procedures Name Priority Associated Diagnoses Date/Ti [...] this encounter Medical Devices Implanted Type Area Urban Planning Professor Device Identifier Shelf Expiration Date Model / Serial / Lot Mesh Perfix Plug Lg [id number] - [id number] Implanted:Qty : 1 on 02/07/2019 by Jonathan Correia DO at OR [facility] Right: Groin CR BARD : DAVOL 09/04/2023 [id number] / / [id number] Cytal Wndmtx 1lyr [id number](150 Units) - [id number] - [id number] Implanted:Qty : 1 on 08/10/2024 by Lexie Aldridge MD at OR [facility] Left: Leg Upper [employer] [id number] 10/07/2025 [id number] / [id number] / [id number] Cytal Wndmtx 1lyr 7x10cm (70 Units) - [id number] - [id number] Implanted:Qty : 1 on 08/10/2024 by Lexie Aldridge MD at OR [facility] Left: Leg Upper [employer] [id number] 01/05/2026 [id number] / [id number] / [id number] documented as of this encounter Advance Directives Documents on File Type Date Recorded Patient Automatic Data Processing Planner Expl anation Advance Directives and Living Will [...] by patient or by statute hierarchy) Lula Seward Adult Child Emergency Contact Care Teams Erp Analyst Relationship Specialty Start Date End Date Fuentes Ashton MD [address] [place] [phone] PCP - General Family Medicine 01/30/22 documented as of this encounter
--- OUTSIDE RECORDS SUMMARY | 2024-09-30 18:13 | External Medical Summary | Summary of Care ---
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 Do all this for 7 days. 14 Capsule 07/26/2024 08/23/20 Active Doxycycline Monohydrate 100 MG Oral Capsule Take 1 Capsule by mouth in the morning and 1 Capsule before bedtime. Do all this for 14 days. 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 08/03/2023 08/03/2023 Atherosclerosis of [place] co ronary artery without angina pectoris 02/01/2023 [...] mRNA, LNP-s, No Pre serve, 2-Dose Series (MessageCast) 08/15/2021,01/31/2021,01/03/2021 COVID-19, LNP-s, No Preserve , Ruslan-sucrose, Ages 12+ (Pfizer) 03/19/2022 COVID-19, MRNA-LNP, 23-24, P F, 30 MCG/0.3 mL, 12 YRS AND ABOVE, IM ([facility]) 10/25/2023 Covid-19, Mrna, Lnp-s, Pf, B ivalent, 30 Mcg, IM, 12 yrs and above (MessageCast) 2022 Pneumococcal Conjugate Vacc, 13 Valent (Prevnar) 01/21/2016 Pneumococcal Conjugate Vacci ne, 20-valent ([id number]) 07/19/2023 Pneumococcal Polysaccharide PPV23 (Pneumovax) 01/13/2011 RSV [...] Description 08/25/2024 2:40 PM EDT Office Visit [facility] [address] [facility] [place] [place] [phone] Devan Garcia MD [address] [facility] [place] [place] [phone] 08/31/2024 11:20 AM EDT Office Visit [facility], [facility] [address] Keisha Gunn MD [address] [place] [address] 11/14/2024 1:15 PM EST Office Visit [facility] [address] [place] [address] Supriya Fernandes MD 200 [facility] [place] [address] 12/21/2024 1:30 PM EST Office Visit Dermatology, [facility] [address] [place] [address] [place] [address] Malaika Guzman PA-C [address] [place] [address] 01/22/2025 1:30 PM EDT PulmDiagnostic Pulmonary Function Lab [facility] [place] [address] [place] [address] [address], [address] [place] [address] 01/22/2025 2:00 PM EDT Office Visit Pulmonary Medicine [facility] [address] [place] [phone] Dominguez Aguilar MD [address] [place] [address] 02/05/2025 10:00 AM EDT Office Visit Rheumatology, [facility] [address] [place] [address] Rafael Hernandez PAReddy [address] [place] [address] 02/06/2025 1:30 PM EDT [facility] [address] [place] [address] Cherry Warner PA-C [address] [place], [place] [phone] Scheduled Procedures Name Priority Associated Diagnoses Date/Ti me COLONOSCOPY FLEXIBLE PROXIMA L DIAGNOSTIC Recall Diverticulosis of sigmoid colon Scheduled Referrals Name Type Priority Associated Diagnoses Orde r Schedule RADIATION/ONCOLOGY REFERRAL OP Referral Within 3 days (urgent) 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 Ordered: 08/23/2024 DENTAL MEDICINE & SURG REFERRAL OP Referral Within 3 days (urgent) 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 Ordered: 08/23/2024 Health Maintenance Due Date Last Done Comments [...] this encounter Medical Devices Implanted Type Area Universal Grinder Set Up Operator Device Identifier Shelf Expiration Date Model / Serial / Lot Mesh Perfix Plug Lg [id number] - [id number] Implanted:Qty : 1 on 02/07/2019 by Jonathan Correia DO at OR [facility] Right: Groin CR BARD : DAVOL 09/04/2023 [id number] / / [id number] Cytal Wndmtx 1lyr 28m12mi(150 Units) - [id number] - [id number] Implanted:Qty : 1 on 08/10/2024 by Lexie Aldridge MD at OR [facility] Left: Leg Upper [employer] [id number] 10/07/2025 [id number] / [id number] / [id number] Cytal Wndmtx 1lyr 7x10cm (70 Units) - [id number] - [id number] Implanted:Qty : 1 on 08/10/2024 by Lexie Aldridge MD at OR [facility] Left: Leg Upper [employer] [id number] 01/05/2026 [id number] / [id number] / [id number] documented as of this encounter Visit Diagnoses Diagnosis 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
--- OUTSIDE RECORDS SUMMARY | 2024-09-30 18:14 | External Medical Summary ---
Author Name Unknown Address Unknown Organization [id number] [address] [place] [address] Laboratory Report Ordering Provider Test Date Status JUAN MENDIETA 08/20/2024 04:12:00 Final Observation Date Value Abnormality Reference (Units ) Status Magnesium 08/20/2024 04:12:00 2.1 1.5-2.6 (m g/dL) Final Performing Location [facility] [address] [place] [address]
--- OUTSIDE RECORDS SUMMARY | 2024-09-30 18:14 | External Medical Summary ---
Author Name Unknown Address Unknown Organization [facility] [address] [place] [address] Laboratory Report Ordering Provider Test Date Status JUAN MENDIETA 08/19/2024 07:46:00 Final Observation Date Value Abnormality Reference (Units ) Status Phosphate 08/19/2024 07:46:00 2.7 2.5-4.8 (m g/dL) Final Performing Location [facility] [address] [place] [address]
--- OUTSIDE RECORDS SUMMARY | 2024-09-30 18:14 | External Medical Summary ---
Author Name Unknown Address Unknown Organization [facility] [address] [place] [address] Laboratory Report Ordering Provider Test Date Status JUAN MENDIETA 08/21/2024 03:35:00 Final Observation Date Value Abnormality Reference (Units ) Status Phosphate 08/21/2024 03:35:00 4.0 2.5-4.8 (m g/dL) Final Performing Location [facility] [address] [place] [address]
--- OUTSIDE RECORDS SUMMARY | 2024-09-30 18:14 | External Medical Summary ---
Author Name Unknown Address Unknown Organization [facility] [address] [place] [address] Laboratory Report Ordering Provider Test Date Status JUAN MENDIETA 08/20/2024 04:12:00 Final Observation Date Value Abnormality Reference (Units ) Status Phosphate 08/20/2024 04:12:00 3.3 2.5-4.8 (m g/dL) Final Performing Location [facility] [address] [place] [id number]
--- OUTSIDE RECORDS SUMMARY | 2024-09-30 18:14 | External Medical Summary ---
Author Name Unknown Address Unknown Organization [id number]:[facility] - [address] [facility] [address] Laboratory Report Ordering Provider Test Date Status YANE LEDESMA 08/20/2024 04:12:00 Final Observation Date Value Abnormality Reference (Units ) Status BUN 08/20/2024 04:12:00 37 Above high normal 6-20 (mg/dL) Final Creatinine 08/20/2024 04:12:00 3.4 Above high normal 0.6-1.2 (mg/dL) Final Glomerular filtration rate/1.73 sq M.predicted [Volume Rate/Area] in Serum, Plasma or Blood by Creatinine-based formula (CKD-EPI) 08/20/2024 04:12:00 18 Below low normal >=60 (mL/min) Final eGFR is calculated based on the CKD-EPI 2020 equation. Sodium 08/20/2024 04:12:00 139 135-146 (m mol/L) Final Potassium 08/20/2024 04:12:00 4.6 3.5-5.1 (m mol/L) Final Cl 08/20/2024 04:12:00 111 Above high normal 98 -107 (mmol/L) Final CO2 08/20/2024 04:12:00 19 Below low normal 22- 32 (mmol/L) Final Anion gap 08/20/2024 04:12:00 9 7-15 (mmol /L) Final Glucose 08/20/2024 04:12:00 85 70-120 (mg /dL) Final Calcium 08/20/2024 04:12:00 8.2 Below low normal 8.4 -10.2 (mg/dL) Final Performing Location [facility] - [address] [place] [address]
--- OUTSIDE RECORDS SUMMARY | 2024-09-30 18:14 | External Medical Summary ---
Author Name Unknown Address Unknown Organization [facility] [address] [place] [address] Laboratory Report Ordering Provider Test Date Status JUAN MENDIETA 08/22/2024 03:42:00 Final Observation Date Value Abnormality Reference (Units ) Status Phosphate 08/22/2024 03:42:00 3.8 2.5-4.8 (m g/dL) Final Performing Location [facility] [address] [place] [address]
--- OUTSIDE RECORDS SUMMARY | 2024-09-30 18:14 | External Medical Summary ---
Author Name Unknown Address Unknown Organization K01:[facility] [place] [facility] - [address] [facility] [address] Laboratory Report Ordering Provider Test Date Status ALESSANDRA BOO 08/22/2024 13:56:00 Final Observation Date Value Abnormality Reference (Units ) Status WBC, Total 08/22/2024 13:56:00 10.16 4.00-10.80 (K/uL) Final RBC 08/22/2024 13:56:00 2.32 4.50-5.25 (M/uL) Final Hemoglobin 08/22/2024 13:56:00 7.6 Below low normal 14.0-16.8 (g/dL) Final HCT 08/22/2024 13:56:00 26.2 Below low normal 40.0-48.4 (%) Final MCV 08/22/2024 13:56:00 112.9 82.0-99.5 (fL) Final MCH 08/22/2024 13:56:00 32.8 27.0-34.0 (pg) Final MCHC 08/22/2024 13:56:00 29.0 32.0-36.0 (g/dL) Final RDW 08/22/2024 13:56:00 20.8 11.5-15.5 (%) Final Platelets 08/22/2024 13:56:00 236 140-400 (K/uL) Final MPV 08/22/2024 13:56:00 11.1 6.6-11.1 (fL) Final Nucleated erythrocytes/100 leukocytes [Ratio] in Blood by Automated count 08/22/2024 13:56:00 0 <=0 (/100 WBCs) Final Performing Location [facility] [address] [place] [address]
--- OUTSIDE RECORDS SUMMARY | 2024-09-30 18:14 | External Medical Summary | Summary of Care ---
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] Procedures REMOVAL OF NECK LYMPH NODES BIOPSY OF NECK/CHEST FREE MUSCLE FLAP WITH MICROVASCULAR ANASTOMOSIS CERVICAL LYMPHADENECTOMY COMPLETE EXCISION SOFT TISSUE NECK THORAX FREE MUSCLE FLAP WITH MICROVASCULAR ANASTOMOSIS Lexie Aldridge MD [address] [place] [address] Or [facility] [address] [place] [address] Referral ID Status Reason Start Date Expiration Date Visits Re quested Visits Authorized [id number] Encounter Details Date Type Department Care Team (Latest Contact Info) Description 08/10/2024 5:35 AM EDT - 08/22/2024 6:40 PM EDT Hospital Encounter [id number] [facility] [place] [place] [address] Lexie Aldridge MD [address], [place] [id number] Bre Pastrana DO [address] [place] [address] Diana Carrillo MD [address] [place] [address] Sin Tovar, DO [address] [place] [address] Diagnostic Clarification Discharge Disposition: Home - Self Care Allergies [...] 5 days. 10 Tab 0 08/29/20 15 Active PredniSONE (DELTASONE) 20 MG TabletIndications: Dysphagia, unspecified type,Acute pharyngitis, unspecified etiology,Ptosis of left eyelid Take 2 Tabs by mouth daily for 7 days. 14 Tab 11/15/19 18 Active predniSONE 20 MG Oral Tablet (Deltasone)Indicat ions:COPD with acute exacerbation (HCC) Take by mouth 2 Tablets in the morning for 5 days. 10 Tablet 12/08/19 22 Active Apixaban 5 MG Oral Tablet (Eliquis)Indicatio [...] or Other (Fever, Headache). 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 30 minutes before a meal. 30 Capsule 01/05/20 22 Active Atorvastatin Calcium 20 MG Oral Tablet (Lipitor)Indicatio ns:Dyslipidemia, goal LDL below 70 Take 1 Tablet by mouth at bedtime. 90 Tablet 3 07/19/20 23 Active Metoprolol Succinate ER 25 MG Oral Tablet Extended Release 24 Hour (Toprol XL) Take 1 Tablet by mouth in the morning. 15 Tablet 09/14/20 23 Active Testosterone Cypionate 100 MG/ML Intramuscular Solution inject 0.75 milliliter intramuscularly every 7 days 09/16/20 23 Active Umeclidinium-Vilan terol 62.5-25 MCG/ACT Inhalation Aerosol Powder Breath Activated (ANORO ellipta)Indication s:COPD, moderate (HCC) Inhale 1 Puff by mouth in the morning. 180 Each 3 01/28/20 24 Active Furosemide 20 MG Oral Tablet (Lasix)Indications :Bilateral lower extremity edema Take 1 Tablet by mouth daily as needed (lower extremity edema). 30 Tablet 11 03/31/20 24 Active Sodium Bicarbonate 650 MG Oral Tablet Take 1 Tablet by mouth in the morning and 1 Tablet before bedtime. 180 Tablet 3 04/19/20 24 Active predniSONE 5 MG Oral Tablet (Deltasone)Indicat ions:Erythema nodosum Take 1.5 Tablets by mouth in the morning. 135 Tablet 4 05/03/20 24 Active Calcitriol 0.25 MCG Oral Capsule (Rocaltrol)Indicat ions:Renal osteodystrophy Take 1 Capsule by mouth in the morning. 30 Capsule 5 05/23/20 24 Active Albuterol Sulfate 108 (90 Base) MCG/ACT Inhalation Aerosol Powder Breath ActivatedIndicatio ns:COPD, moderate (HCC) Inhale 2 Puffs by mouth every 4 hours as needed for Shortness of Breath. 1 Each 11 07/06/20 24 Active Albuterol Sulfate (2.5 MG/3ML) 0.083% Inhalation Nebulization Solution (Proventil)Indicat ions:COPD, group C, by GOLD 2017 classification ([facility]) Inhale 1 Vial via nebulizer every [...] weeks 170 g 3 07/24/20 24 Active oxyCODONE HCl 5 MG Oral Tablet (Oxy IR) Take 1 Tablet by mouth every 4 hours as needed for severe or breakthrough pain for up to 5 days. 8 Tablet 08/22/20 24 Active Aquaphor External Ointment Apply topically to affected area 3 times a day. Apply to neck three times daily 396 g 08/22/20 24 Active Folic Acid 1 MG Oral Tablet Take 1 Tablet by mouth in the morning. 30 Tablet 08/23/20 24 Active Vitamin B-12 1000 MCG Oral Tablet (Cyanocobalamin) Take 1 Tablet by mouth in the morning. 30 Tablet 08/23/20 24 Active Vitamin B 12 500 MCG Oral Tablet Take by mouth 1 Tablet daily . Discontinued Doxycycline Monohydrate 100 MG Oral Capsule Take 1 Capsule by mouth in the morning and 1 Capsule before bedtime. Do all this for 14 days. 28 Capsule 07/31/20 24 documented as of this encounter (statuses [...] from 2018 Atherosclerotic heart diseas e of [place] coronary artery without angina pectoris 05/31/2020 Nuclear [...] chronic kidney disease 08/03/2023 08/03/2023 Atherosclerosis of [place] co ronary artery without angina pectoris 02/01/2023 [...] mRNA, LNP-s, No Pre serve, 2-Dose Series ([employer]) 08/15/2021,01/31/2021,01/03/2021 COVID-19, LNP-s, No Preserve , Ruslan-sucrose, Ages 12+ (Pfizer) 03/19/2022 COVID-19, MRNA-LNP, 23-24, P F, 30 MCG/0.3 mL, 12 YRS AND ABOVE, IM ([facility]) 10/25/2023 Covid-19, Mrna, Lnp-s, Pf, B ivalent, 30 Mcg, IM, 12 yrs and above ([employer]) 2022 Pneumococcal Conjugate Vacc, 13 Valent (Prevnar) 01/21/2016 Pneumococcal Conjugate Vacci ne, 20-valent ([id number]) 07/19/2023 Pneumococcal Polysaccharide PPV23 (Pneumovax) 01/13/2011 RSV [...] No 01/31/2024 Does the household have a re gular [...] Sign Reading Time Taken Comments Blood Pressure 113/64 08/22/2024 10:23 AM EDT Pulse 86 08/22/2024 10:23 AM EDT Temperature 37.1 C (98.7 F) 08/22/2024 10:23 AM E DT Respiratory Rate 19 08/22/2024 10:23 AM EDT Oxygen Saturation 95% 08/22/2024 10:23 AM EDT Inhaled Oxygen Concentration - - Weight 74.4 kg (164 lb) 08/22/2024 5:09 AM EDT Height 170.2 cm (5' 7.01") 08/20/2024 6:02 AM ED T Body Mass Index 25.68 08/20/2024 6:02 AM EDT documented in this [...] No 08/11/2024 documented as of this encounter Discharge Instructions * Discharge Instr - AVS* Vannessa Cameron MD - 08/22/2024 2:14 PM EDT [facility] Discharge Instructions Discharge Date: 08/22/24 Check your Patient Education Brochure for further information. You may call Dr. Tovar of the department of ENT at [facility] [phone] during business hours for any questions or test results. For after-hours emergencies call [facility] [phone] and have your doctor paged. The information below provides you with the instructions and the list of medications you need to betaking following discharge from the hospital. If you have any questions, please ask before leaving.Please carry this letter with you when you see your doctor in the clinic. If you have questions, you can reach us at the numbers above. Brief summary of your inpatient care: You were admitted to the hospital after neck cancer surgery. Reconstruction was performed with pectoralis major flap. You did well post-op and everything was healing as expected. Drains and dopplers were removed prior to your discharge. Your primary diagnosis at discharge was neck cancer Diet: regular diet Activity: No strenuous activity for 2 weeks and No lifting or pushing or pulling more than 10 lbs for 2 weeks Driving: You may resume driving when cleared by Dr. Tovar Date you may return to work or school: At the discretion of the treatment team. Follow up in one week from discharge with Dr. Tovar Special Instructions: POSTOPERATIVE INSTRUCTIONS FOR HEAD AND NECK SURGERY 1. Limit activity for 2 weeks. No strenuous activity such as running, hiking, biking, swimming, playing sports or any other activity that may increase your heart rate or blood pressure. 2. Use all pain medications as directed. 3. Some ear pain or throat pain is normal. A foul-smelling breath for several days after surgery isnormal. 4. Can shower the day after discharge unless instructed otherwise by your care team. 5. Dressings and Wound care to be addressed by your care team based on your specific surgical procedure. 6. Call [phone] and ask for ENT on-call for any bleeding from the throat, worsening pain not controlled by medications, inability to take oral nutrition, or persistent fever over 101 F. An intermittent fever to 101 F is normal after surgery for 2-3 days. documented in this encounter Progress Notes * Myles Fry MD - 08/18/2024 7:34 AM EDT Images from the original note were not included. [facility] B531/A INTERVAL HISTORY: The patient was evaluated this morning, he was resting comfortably in bed, he feels better, denied chest pain, shortness of breath, nausea, vomiting, fevers and chills. Objective Physical Exam Most Recent Vital Signs: BP: 144 mmHg/67 mmHg (08/18/24642) Pulse: 82 (08/18/24642) Resp: 18 (08/18/24642) Temp: 36.89 C (08/18/24642) Temp Summary: Temp Min: 36.2 C (97.2 F) Max: 37.2 C (99 F) SpO2: 95 % (08/18/24642) O2 flow rate: 0 L/MIN (08/18/24 0147) Supplemental O2 Delivery: Room Air, None (08/18/24642) Constitutional: no acute distress, (+) chronically ill HEENT: normal: normocephalic, atraumatic; no masses, tenderness, or adenopathy Eyes: PERRLA Neck: (+) left neck incision looks clean by the surgical area seems to be more protuberant today CV: normal rate and rhythm, no murmur, gallops or rub Chest: normal respiratory effort, (+) few basal crackles, no wheezes Abdomen: normal: soft, bowel sounds normal, no masses, tenderness or organomegaly Extremities: (+) bilateral LE edema 1+ Skin: warm, dry: Neuro: alert, oriented to person, place, and time, cranial nerves intact, sensory normal Peripheral Line Right;Lower;Median;Anterior Arm 22 Gauge (Active) Number of days: 7 Drain Melvin Sherwood Left;Upper Chest (Active) Number of days: 5 Drain Melvin Sherowod Left;Lower Chest (Active) Number of days: 5 STUDIES: Encounter Orders Labs and other studies reviewed with pertinent findings noted below: Na 137, K 4.8, CR stable 1.7, normal anion gap Normal Mg and phos WBC 5 K, HGB 6.0 today from 7.1 yesterday Assessment and Plan IMPRESSION : 78 year old male with PMH significant for HTN, DLD, COPD, CKD 4, hypothyroidism, gout,GERD, left neck cutaneous SCC, S/P wide local excision, left neck dissection and reconstruction with left pectoralis major flap and skin graft on 08/10/2024, returned to the OR on 08/13 for chest wall hematoma evacuation and required blood products for acute blood loss anemia. He was transferred tothe ICU postop and back to ENT service on 08/16. Medicine was consulted for medical optimization and follow along for assistance. 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 SALES APPRENTICE metoprolol XL 25 mg daily Continue SALES APPRENTICE atorvastatin 20 mg daily Continue bicarb tabs 650 mg daily Consider 1 time dose of IV Lasix 40 mg and reassess tomorrow Monitor kidney function and electrolytes daily Other chronic medical conditions (stable): COPD, hypothyroidism, gout, GERD Continue SALES APPRENTICE albuterol and Anoro Ellipta Continue SALES APPRENTICE calcitriol 0.25 mg daily Continue SALES APPRENTICE allopurinol 200 mg daily Continue SALES APPRENTICE levothyroxine 50 mcg daily Continue SALES APPRENTICE omeprazole 20 mg daily Will follow along with ENT service Thank you _ Left neck SCC, status post resection and reconstruction complicated with chest wall hematoma and acute blood loss anemia - Severe SCC of the neck, acute blood loss anemia will result in a threat to life or bodily function if not treated PHARMACOLOGIC VTE PROPHYLAXIS: Apixaban hEParin CODE STATUS: Full Code EXPECTED DISCHARGE DATE: No information available * Myles Fry MD - 08/17/2024 6:42 AM EDT Images from the original note were not included. [facility] B531/A INTERVAL HISTORY: The patient was evaluated during rounds this morning, he feels better this morning, moved his bowels last night after an enema. He has been afebrile, normotensive with systolic BP 140s and SpO2 98-100% on 1 L via NC. Objective Physical Exam Most Recent Vital Signs: BP: 144 mmHg/70 mmHg (10/10/24 0606) Pulse: 87 (08/17/24605) Resp: 18 (08/17/24605) Temp: 36.22 C (08/17/24605) Temp Summary: Temp Min: 36.1 C (97 F) Max: 37 C (98.6 F) SpO2: 97 % (08/17/24605) O2 flow rate: 1 L/MIN (08/17/24605) Supplemental O2 Delivery: Nasal Cannula (08/17/24605) Constitutional: no acute distress, (+) chronically ill HEENT: normal: normocephalic, atraumatic; no masses, tenderness, or adenopathy Eyes: PERRLA Neck: (+) left neck incision looks clean with some serosanguineous drainage CV: normal rate and rhythm, no murmur, gallops or rub Chest: normal respiratory effort, (+) few basal crackles, no wheezes Abdomen: normal: soft, bowel sounds normal, no masses, tenderness or organomegaly Extremities: (+) bilateral LE edema 1+ Skin: warm, dry: Neuro: alert, oriented to person, place, and time, cranial nerves intact, sensory normal Peripheral Line Right;Lower;Median;Anterior Arm 22 Gauge (Active) Number of days: 6 Drain Melvin Sherwood Left;Upper Chest (Active) Number of days: 4 Drain Melvin Sherwood Left;Lower Chest (Active) Number of days: 4 STUDIES: Encounter Orders Labs and other studies reviewed with pertinent findings noted below: Na 137, K 4.8, creatinine stable at 3.3, normal anion gap Normal Mg 2.3, normal phos 3.2 WBC 9 K, HGB 7.3 after blood transfusion Assessment and Plan IMPRESSION : 78 year old male with PMH significant for HTN, DLD, COPD, CKD 4, hypothyroidism, gout,GERD, left neck cutaneous SCC, S/P wide local excision, left neck dissection and reconstruction with left pectoralis major flap and skin graft on 08/10/2024, returned to the OR on 08/13 for chest wall hematoma evacuation and required blood products for acute blood loss anemia. He was transferred tothe ICU postop and back to ENT service on 08/16. Medicine was consulted for medical optimization and follow along for assistance. 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 * DIFFERENTIAL AND PLAN: Left neck SCC Acute blood loss anemia SP wide local excision, left neck dissection and reconstruction Postop course complicated with chest wall hematoma and blood loss anemia requiring return to the ORon blood products HGB stable at 7.3 this morning Continue to monitor HGB twice daily and transfuse if < 7.0 HTN, DLD, paroxysmal AFib, CKD 4 On exam the patient is fluid overload with improved blood pressures, systolic 140s His AFib is rate controlled, HR 70 to 80s Continue SALES APPRENTICE metoprolol XL 25 mg daily Continue SALES APPRENTICE atorvastatin 20 mg daily Continue SALES APPRENTICE bicarb tabs 650 mg twice daily Consider 1 time dose of IV Lasix 20 mg and reassess tomorrow Hold SALES APPRENTICE oral Lasix Check BMP, Mg and phos daily Other chronic medical conditions (stable): COPD, hypothyroidism, gout, GERD Continue SALES APPRENTICE albuterol and Anoro Ellipta Continue SALES APPRENTICE calcitriol 0.25 mg daily Continue SALES APPRENTICE allopurinol 200 mg daily Continue SALES APPRENTICE levothyroxine 50 mcg daily Continue SALES APPRENTICE omeprazole 20 mg daily Will follow along with ENT service Thank you _ Left neck SCC, status post resection and reconstruction complicated with chest wall hematoma and acute blood loss anemia - Severe SCC of the neck, acute blood loss anemia will result in a threat to life or bodily function if not treated PHARMACOLOGIC VTE PROPHYLAXIS: Apixaban hEParin CODE STATUS: Full Code EXPECTED DISCHARGE DATE: 08/18/2024 * Vivi Mendoza MD - 08/15/2024 8:39 AM EDT PROGRESS NOTE - Trauma ICU [address] [address] Name: Kennedy Davis [place] [facility] A459/A Date: 08/15/2024 Time: 8:39 AM ADMISSION DATE: 01/22/2022 OPERATIONS / PROCEDURES: 08/10 LEFT pectoralis major myocutaneous pedicled flap, adjacent tissue transfer, split thickness skin graft HPI: Patient is a 78 yo male admitted to SICU 08/10 post op. He was taken to the OR 08/10 with ENT for a LEFT neck composite resection left sternocleidomastoid muscle and a left neck dissection for SCC leftneck with pectoralis flap reconstruction. He was transferred to the ICU post -op for monitoring. Active Problems: SCC (squamous cell carcinoma) (POA: Unknown) Post-operative state (POA: Unknown) Postoperative anemia due to acute blood loss (POA: Unknown) Resolved Problems: * No resolved hospital problems. * EVENTS OF NOTE 08/10 OR with ENT 10 am anterior chest wall with evidence of hematoma - swollen, TTP, taunt. To OR with ENT for evacuation and hemostasis. >500 ml out of drain within 1 hr post op, returned to OR a second time inthe day. Post op second time remained stable. Received 2 prbc, 1 plasma 08/14 LUE swelling, u/s negative for thrombosis or hematoma INTERIM HISTORY (LAST 24 HOURS): NAEO. VSS. On 1L NC. U/s LUE yesterday negative for thrombosis or hematoma. Presser dressing reapplied. Holding prbc this am as hgb stable and no signs of bleeding PO 120 IV 883 ml UO 1.6 L Lower Chest drain 43, upper chest drain 135, neck drain 27 Today he states he is doing well. Denies pain. States he is tolerating diet and passing gas. No BM yet. PHYSICAL EXAMINATION: Most Recent Vital Signs: BP: 116 mmHg/45 mmHg (08/15/24 0600) Pulse: 97 (08/15/24630) Temp: 36.72 C (08/15/24799) Resp: 22 (08/15/24630) SpO2: 97 % (08/15/24630) SpO2: 97 % (08/15/24630) Vital Signs Last 24 Hours: Systolic BP: Most Recent Systolic BP Av mmHg Min: 91 mmHg Max: 138 mmHg Temperature: Most Recent Temperature Av.2 C Min: 36.22 C Max: 37.72 C Pulse: Pulse Av.3 Min: 76 Max: 123 Respirations: Resp Av.7 Min: 15 Max: 59 SpO2: SpO2 Av.5 % Min: 87 % Max: 100 % Intake/Output Summary (Last 24 hours) at 08/15/2024838 Last data filed at 08/15/2024799 Gross per 24 hour Intake 452.43 ml Output 1765 ml Net -1312.57 ml Gen: NAD Head: normocephalic, LEFT post auricular and occipital with bolster in place over skin graft Eyes: sclera white Neck: LEFT neck incision closed with caro, well approximated, dried blood in place. Drain with sanguinous output in tubing only. Ecchymotic tissue surrounding Chest: incision is well approximated with caro. Anterior chest wall is soft, NTTP. Drain in place x 2 with no output in the bulb. ANTONINO wrap in place for compression with gauze. 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 hematoma overlying hard nodule in RIGHT lower back Extremities: 1+ pitting edema, clubbing, or cyanosis Skin: no jaundice or rash Neuro: awake, alert, answers questions appropriately Psych: normal behavior, normal judgement LABORATORIES: Labs reviewed as indicated below: Lab results within last 7 days (see chart for full results) Units 08/15/24 0641 08/15/24 0640 08/14/24 2030 08/14/24 0500 08/13/24 1408 08/13/24 1118 08/13/24 0717 08/13/24 0432 08/12/24 1220 08/12/24 0532 08/11/24 0508 08/11/24 0206 HGB g/dL -- 6.9* 6.8* 7.9* < > -- < > 7.9* < > 8.0* < > -- WBC K/uL -- 15.22* 12.08* 8.38 < > -- < > 9.95 < > 9.01 < > -- PLT K/uL -- 76* 74* 81* < > -- < > 80* < > 59* < > -- SODIUM mmol/L 135 -- -- 137 -- -- -- 138 -- 141 < > -- POTASSIUM mmol/L 5.2* -- -- 4.8 -- -- -- 4.5 -- 4.8 < > -- POTASSIUM - POCT mmol/L -- -- -- -- -- 4.9 -- -- -- -- -- -- CREATININE mg/dL 3.1* -- -- 3.1* -- -- -- 2.9* -- 3.0* < > -- GLUCOSE mg/dL 104 -- -- 91 -- -- -- 94 -- 99 < > -- Magnesium mg/dL 2.0 -- -- 2.1 -- -- -- -- -- 2.1 < > -- Phosphorus mg/dL 3.0 -- -- 2.1* -- -- -- -- -- 3.9 < > -- Lactate mmol/L -- -- -- 1.6 -- -- -- -- -- -- -- 2.2* < > = values in this interval not displayed. CULTURES / SENSITIVITIES: None new RADIOGRAPHIC STUDIES: VASC DUPLEX VENOUS UE UNILAT Result Date: 08/14/2024 : Left upper extremity venous duplex examination with no evidence of acute deep venous thrombosis. The left basilic and cephalic veins are patent with no evidence of superficial thrombophlebitis. US EXTREMITY, NON-VASCULAR LIMITED Result Date: 08/14/2024 IMPRESSION Nonspecific subcutaneous edema. No measurable fluid collections are seen to suggest hematoma or abscess. I have personally reviewed this examination and agree with the resident/fellow physician's interpretation. SYSTEM BASED PLAN: NEURO: # multimodal analgesia ATC tylenol Oxycodone 2.5/5 (2/24h) Dilaudid for breakthrough pain (1/24h) PULMONARY / RESPIRATORY: #Squamous cell carcinoma left neck status post excision and reconstruction with LEFT pectoralis flap, adjacent tissue rearrangement, and split thickness skin graft Return to OR 08/13 for hematoma evacuation x 2 Hold Eliquis for now Per ENT Maintain pressure dressing Hold AC, can start DVT ppx POD #1 LETY drains to bulb suction No ties or pressure around neck No ice to neck Bacitracin to left neck BID Reinforce tegaderm dressing on left leg for saturation PRN # COPD gold E Plan SALES APPRENTICE and RO SALES APPRENTICE albuterol inhaler twice daily CARDIAC / VASCULAR: # paroxysmal atrial fibrillation Resume SALES APPRENTICE metoprolol succinate 25 daily Hold SALES APPRENTICE Eliquis until ENT clears #Dyslipidemia Resume PT atorvastatin 20 mg HF P EF P.r.n. Lasix 08/15 -0.8 L (admission) GI / HEPATOBILIARY: # regular diet post op Senna Colace for bowel regimen SALES APPRENTICE omeprazole RENAL / METABOLIC / FLUIDS: # CKD stage 4 Continues to make urine Plan Continue calcitriol 0.25 Continue sodium bicarb 650 INFECTIOUS DISEASES: # continue abx by ENT Febrile 08/10 Cephalexin 500 mg q8h start 08/12-stop 08/13 and transition to unasyn for 48 hrs. Until 08/15 Resume cephalexin 500 mg q8h on 08/15 last dose 08/17 pm ENDOCRINE: # hypothyroidism Continue SALES APPRENTICE levothyroxine 50 mcg #Gout Continue allopurinol 200 mg CCM BGL goals of 140-180 mg/dl HEMATOLOGIC: #DVT PPX: SCDs, hold heparin dvt ppx per ENT Post op hematoma s/p evacuation in OR x 2 on 08/13 Liberalize cbc to q12 Hold blood transfusion today per ENT, hgb has remained stable. Will continue to trend cbc. If no improvement will transfuse MUSCULOSLETAL / DERM: #PT/OT #LUE swelling and ecchymosis -obtain LUE u/s Devices: Peripheral Line Right;Lower;Median;Anterior Arm 22 Gauge (Active) Number of days: 4 Peripheral Line Right;Upper Arm 20 Gauge (Active) Number of days: 3 Peripheral Line Right Wrist 20 Gauge (Active) Number of days: 2 Drain Melvin Sherwood Left Neck (Active) Number of days: 5 Drain Melvin Sherwood Left;Upper Chest (Active) Number of days: 2 Drain Melvin Sherwood Left;Lower Chest (Active) Number of days: 2 Dispo: transfer to floor level care Patient's decisional capacity: has capacity to make decisions Patient seen and examined. Discussed with Dr. Gerardo Treadwell MD General Surgery Resident 08/15/2024 8:39 AM Associated attestation - Diana Carrillo MD - 08/16/2024 9:49 PM EDT ATTESTATION I saw and evaluated the patient on 08/16/24. I have reviewed the trainee note. I have reviewed and independently interpreted the history, physical, chart, labs, and imaging. HOSPITAL COURSE: 78 yo with cutaneous SCC of the left neck who presented on 08/10 for planned left neck composite resection including skin, underlying subcutaneous tissue and portion of left SCM muscle, left neck dissection (levels II-V). Post-op he was transferred to the ICU for further management. He was oozy fromthe harvest site. That and equilibration from the OR he required transfusions, in total 3 PRBCs, 1 Cryo, and 1 Plasma. On 08/13 he had significantly increased drainage from his left chest wall drain then developed a hematoma. He was taken to the OR for exploration and hemostasis. Shortly after returning from the OR the drain was bloody and filling quickly so he was taken back tot he OR a second time for hemostasis. PMHx: HTN, HLD, HFpEF, paroxysmal A fib, chronic anticoagulation, chronic steroid use, atherosclerosis, AAA, renal artery stenosis, venous insufficiency, "chronic intestinal vascular insufficiency," ANCA associated vasculitis, erythema nodosum, COPD, aspergillosis, GERD, hx acute pancreatitis, IPMN, hypogonadism, CKD 4, previously required acute HD, steroid induced diabetes, hx hyperparathyroidism, hypothyroidism, chronic anemia, chronic gout, hx BLE cellulitis, cataract, Vit D deficiency, osteoporosis, hx L2 fracture, lumbar stenosis with neurogenic claudication ACUTE HOSPITAL ISSUES: - Cutaneous SCC of the left neck - Left chest wall hematoma - Acute blood loss anemia - LIZZ 24 HOUR EVENTS: Received 1 pRBC for Hgb 6.9 (did not receive yesterday for Hgb 6.8). PLAN: Neuro: - Analgesia: Scheduled Tylenol 975 mg, Oxy IR 2.5/5 mg PRN - Sedation: n/a HEENT: - Cutaneous SCC of the left neck - ENT following - s/p 08/10 left neck composite resection including skin, underlying subcutaneous tissue and portionof left SCM muscle, left neck dissection (levels II-V) - c/b by left chest wall bleeding and hematoma - s/p 08/13 return to the OR x 2 for hematoma evacuation and hemostasis - Pressure dressing previously applied to chest - No flap checks required - No ties or pressure around neck - No ice to neck - Bacitracin to left neck BID Resp: - COPD: SALES APPRENTICE Albuterol PRN, SALES APPRENTICE Anoro ellipta - IS, pulmonary hygiene, respiratory driven protocol Cardiovascular: - HTN, HLD, A fib, chronic HFpEF - Hold SALES APPRENTICE Eliquis - SALES APPRENTICE Atorvastatin 20 mg qhs - Metoprolol 12.5 mg BID (SALES APPRENTICE on Toprol XL 25 mg daily) - Hold SALES APPRENTICE Lasix 20 mg daily PRN for lower extremity edema GI: - Diet: Renal diet - Nausea: Zofran PRN - GERD: SALES APPRENTICE Omeprazole 20 mg daily - Bowel regimen: Senna and colace BID Renal/Metabolic/Fluids: - LIZZ on CKD 4 - SALES APPRENTICE sodium bicarb 650 mg BID - Vitamin D deficiency: SALES APPRENTICE calcitriol Endocrine: - Hypogonadism: SALES APPRENTICE on testosterone injection every Wednesday - Hypothyroidism: SALES APPRENTICE Levothryoxine Infectious Disease: - Surgical prophylaxis - Unasyn x 48 hrs post-op - Then transitioned back to Keflex x 7 days (to cover for surgical site with bolster) Heme: - Acute blood loss anemia - Blood Management consult - CBC q12hrs - VTE ppx: SCDs, Lovenox (discussed with ENT) Musculoskeletal/Integumentary/Rheum: - PT/OT - Gout: SALES APPRENTICE Allopurinol Was critical care rendered? Yes. I have personally provided 30 minutes of critical care time exclusive of time spent on separately billable procedures. Time includes review of laboratory data, radiology results, discussion with consultants, and monitoring for potential decompensation. Interventions were performed as documented above. Upon my evaluation, this patient had a high probability of imminent or life- threatening deterioration due to critical care diagnostic services for circulatory failure, hematologic failure and therapeutic services with frequent evaluation and titration of therapies for this patient on the date referenced above, which required my direct attention, intervention, and personal management. Diana Carrillo MD, FACS Trauma, Emergency General Surgery, and Critical Care Principal Problem: SCC (squamous cell carcinoma) (POA: Yes) Active Problems: Essential hypertension (POA: Yes) Overview: ICD-10 update of inactive term Gastroesophageal reflux disease without esophagitis (POA: Yes) HTN, goal below 140/90 (POA: Yes) Dyslipidemia, goal LDL below 70 (POA: Yes) Acquired hypothyroidism (POA: Yes) Paroxysmal atrial fibrillation (HCC) (POA: Yes) Chronic anticoagulation (POA: Yes) CKD (chronic kidney disease) stage 4, GFR 15-29 ml/min (HCC) (POA: Yes) Atherosclerotic heart disease of [place] coronary artery without angina pectoris (POA: Yes) COPD, moderate (HCC) (POA: Yes) Overview: Per COPD GOLD Classification 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) (POA: Yes) Chronic gout due to renal impairment of multiple sites without tophus (POA: Yes) Post-operative state (POA: Yes) Postoperative anemia due to acute blood loss (POA: Yes) Hematoma of left chest wall (POA: No) LIZZ (acute kidney injury) (HCC) (POA: No) POA = Present On Admission * Vivi Mendoza MD - 08/14/2024 8:05 AM EDT PROGRESS NOTE - [place] [facility] [address] Name: Kennedy Davis [place] [facility] [id number] Date: 08/14/2024 Time: 10:47 AM ADMISSION DATE: 01/22/2022 OPERATIONS / PROCEDURES: 08/10 LEFT pectoralis major myocutaneous pedicled flap, adjacent tissue transfer, split thickness skin graft HPI: Patient is a 78 yo male admitted to SICU 08/10 post op. He was taken to the OR 08/10 with ENT for a LEFT neck composite resection left sternocleidomastoid muscle and a left neck dissection for SCC leftneck with pectoralis flap reconstruction. He was transferred to the ICU post -op for monitoring. Active Problems: SCC (squamous cell carcinoma) (POA: Unknown) Post-operative state (POA: Unknown) Postoperative anemia due to acute blood loss (POA: Unknown) Resolved Problems: * No resolved hospital problems. * EVENTS OF NOTE 10/3 OR with ENT 10/6 am anterior chest wall with evidence of hematoma - swollen, TTP, taunt. To OR with ENT for evacuation and hemostasis. >500 ml out of drain within 1 hr post op, returned to OR a second time inthe day. Post op second time remained stable. Received 2 prbc, 1 plasma INTERIM HISTORY (LAST 24 HOURS): NAEO. Tmax 38.4. HDS. Tachycardic rate. Max HR 112. Oxygenating well on RA. Prbc x 2 - 730 ml IV 2.4 ml UO 1.4 L Lower Chest drain 730, upper chest drain 165, neck drain 5 EBL 400 Today he complains of arm pain and swelling. States it is due to blood pressure cuff. at bedside states this has happened before d/t blood pressure cuff. PHYSICAL EXAMINATION: Most Recent Vital Signs: BP: 97 mmHg/78 mmHg (08/14/24 1000) Pulse: 116 (08/14/24 1000) Temp: 37.72 C (08/14/24 1000) Resp: 20 (08/14/24 1000) SpO2: 92 % (08/14/24 1000) SpO2: 92 % (08/14/24 1000) Vital Signs Last 24 Hours: Systolic BP: Most Recent Systolic BP Av.1 mmHg Min: 90 mmHg Max: 128 mmHg Temperature: Most Recent Temperature Av.4 C Min: 36.22 C Max: 38.39 C Pulse: Pulse Av.9 Min: 75 Max: 133 Respirations: Resp Av.4 Min: 15 Max: 34 SpO2: SpO2 Av.2 % Min: 92 % Max: 100 % Intake/Output Summary (Last 24 hours) at 08/14/2024 1047 Last data filed at 08/14/2024 1000 Gross per 24 hour Intake 3457.33 ml Output 2105 ml Net 1352.33 ml Gen: NAD Head: normocephalic, LEFT post auricular and occipital with bolster in place over skin graft Eyes: sclera white Neck: LEFT neck incision closed with caro, well approximated, dried blood in place. Drain with sanguinous output in tubing only. Ecchymotic tissue surrounding Chest: incision is well approximated with caro. Anterior chest wall is soft, NTTP. Drain in place x 2 with sanguinous output Resp: no increased work of breathing, oxygenating well on room air Cardiac: regular rate, distally perfused Abd: obese, soft, round, NTTP, nondistended Back: SALES APPRENTICE hematoma overlying hard nodule in RIGHT lower back Extremities: no edema, clubbing, or cyanosis Skin: no jaundice or rash Neuro: awake, alert, answers questions appropriately Psych: normal behavior, normal judgement LABORATORIES: Labs reviewed as indicated below: Lab results within last 7 days (see chart for full results) Units 08/14/24 0500 08/14/24 0032 08/13/24 1850 08/13/24 1408 08/13/24 1118 08/13/24 0717 08/13/24 0432 08/12/24 1220 08/12/24 0532 08/11/24 0854 08/11/24 0508 08/11/24 0206 HGB g/dL 7.9* 8.5* 8.9* < > -- < > 7.9* < > 8.0* < > 6.0* -- WBC K/uL 8.38 12.92* 9.59 < > -- < > 9.95 < > 9.01 < > 15.45* -- PLT K/uL 81* 74* 80* < > -- < > 80* < > 59* < > 67* -- SODIUM mmol/L 137 -- -- -- -- -- 138 -- 141 -- 140 -- POTASSIUM mmol/L 4.8 -- -- -- -- -- 4.5 -- 4.8 -- 5.3* -- POTASSIUM - POCT mmol/L -- -- -- -- 4.9 -- -- -- -- -- -- -- CREATININE mg/dL 3.1* -- -- -- -- -- 2.9* -- 3.0* -- 3.0* -- GLUCOSE mg/dL 91 -- -- -- -- -- 94 -- 99 -- 97 -- Magnesium mg/dL 2.1 -- -- -- -- -- -- -- 2.1 -- 1.4* -- Phosphorus mg/dL 2.1* -- -- -- -- -- -- -- 3.9 -- 3.5 -- Lactate mmol/L 1.6 -- -- -- -- -- -- -- -- -- -- 2.2* < > = values in this interval not displayed. CULTURES / SENSITIVITIES: None new RADIOGRAPHIC STUDIES: No imaging results in the last 24 hours SYSTEM BASED PLAN: NEURO: # multimodal analgesia ATC tylenol Oxycodone 2.5/5 (2/24h) Dilaudid for breakthrough pain (2/24h) PULMONARY / RESPIRATORY: #Squamous cell carcinoma left neck status post excision and reconstruction with LEFT pectoralis flap, adjacent tissue rearrangement, and split thickness skin graft Return to OR 08/13 for hematoma evacuation x 2 Hold Eliquis for now Per ENT No flap checks required Hold AC, can start DVT ppx POD #1 LETY drains to bulb suction No ties or pressure around neck No ice to neck Bacitracin to left neck BID Reinforce tegaderm dressing on left leg for saturation PRN # COPD gold E Plan SALES APPRENTICE and RO SALES APPRENTICE albuterol inhaler twice daily CARDIAC / VASCULAR: # paroxysmal atrial fibrillation Resume SALES APPRENTICE metoprolol succinate 25 daily Hold SALES APPRENTICE Eliquis until ENT clears #Dyslipidemia Resume PT atorvastatin 20 mg HF P EF P.r.n. Lasix 08/14 +0.8 L (admission) GI / HEPATOBILIARY: # regular diet post op Senna Colace for bowel regimen SALES APPRENTICE omeprazole RENAL / METABOLIC / FLUIDS: # CKD stage 4 Continues to make urine Plan Continue calcitriol 0.25 Continue sodium bicarb 650 INFECTIOUS DISEASES: # continue abx by ENT Febrile 08/10 Cephalexin 500 mg q8h start 08/12-stop 08/13 and transition to unasyn for 48 hrs. Until 08/15 Resume cephalexin 500 mg q8h on 08/15 last dose 08/17 pm ENDOCRINE: # hypothyroidism Continue SALES APPRENTICE levothyroxine 50 mcg #Gout Continue allopurinol 200 mg CCM BGL goals of 140-180 mg/dl HEMATOLOGIC: #DVT PPX: SCDs, hold heparin dvt ppx per ENT Post op hematoma s/p evacuation in OR x 2 on 08/13 Liberalize cbc to q12 this afternoon if stable MUSCULOSLETAL / DERM: #PT/OT #LUE swelling and ecchymosis -obtain LUE u/s Devices: Peripheral Line Right;Lower;Median;Anterior Arm 22 Gauge (Active) Number of days: 3 Peripheral Line Right;Upper Arm 20 Gauge (Active) Number of days: 2 Peripheral Line Right Wrist 20 Gauge (Active) Number of days: 1 Drain Melvin Sherwood Left Neck (Active) Number of days: 4 Drain Melvin Sherwood Left;Upper Chest (Active) Number of days: 1 Drain Melvin Sherwood Left;Lower Chest (Active) Number of days: 1 Dispo: remain in ICU for close hemodynamic monitoring Patient's decisional capacity: has capacity to make decisions Patient seen and examined. Discussed with Dr. Gerardo Treadwell MD General Surgery Resident 08/14/2024 10:47 AM Associated attestation - Diana Carrillo MD - 08/16/2024 9:46 PM EDT ATTESTATION I saw and evaluated the patient on 08/15/24. I have reviewed the trainee note. I have reviewed and independently interpreted the history, physical, chart, labs, and imaging. HOSPITAL COURSE: 78 yo with cutaneous SCC of the left neck who presented on 08/10 for planned left neck composite resection including skin, underlying subcutaneous tissue and portion of left SCM muscle, left neck dissection (levels II-V). Post-op he was transferred to the ICU for further management. He was oozy fromthe harvest site. That and equilibration from the OR he required transfusions, in total 3 PRBCs, 1 Cryo, and 1 Plasma. On 08/13 he had significantly increased drainage from his left chest wall drain then developed a hematoma. He was taken to the OR for exploration and hemostasis. Shortly after returning from the OR the drain was bloody and filling quickly so he was taken back tot he OR a second time for hemostasis. PMHx: HTN, HLD, HFpEF, paroxysmal A fib, chronic anticoagulation, chronic steroid use, atherosclerosis, AAA, renal artery stenosis, venous insufficiency, "chronic intestinal vascular insufficiency," ANCA associated vasculitis, erythema nodosum, COPD, aspergillosis, GERD, hx acute pancreatitis, IPMN, hypogonadism, CKD 4, previously required acute HD, steroid induced diabetes, hx hyperparathyroidism, hypothyroidism, chronic anemia, chronic gout, hx BLE cellulitis, cataract, Vit D deficiency, osteoporosis, hx L2 fracture, lumbar stenosis with neurogenic claudication ACUTE HOSPITAL ISSUES: - Cutaneous SCC of the left neck - Left chest wall hematoma - Acute blood loss anemia - LIZZ 24 HOUR EVENTS: Hgb this morning was 7.9. His LUE is very swollen, almost looks like blisters are trying to form. His stated this was an acute change, but had happened to him before at an OSH and they thought it was from the BP cuff. On exam it is just the left forearm, and there is the entirety of the proximal arm that is without ecchymosis or swelling. It does not appear to be redistribution of blood fromthe left chest wall and it is not at the edge of the compression dressing. Will obtain a duplex to ensure no additional issues. Avoid BP cuff on LUE for now, elevate and apply compression. PLAN: Neuro: - Analgesia: Scheduled Tylenol 975 mg, Oxy IR 2.5/5 mg PRN - Sedation: n/a HEENT: - Cutaneous SCC of the left neck - ENT following - s/p 08/10 left neck composite resection including skin, underlying subcutaneous tissue and portionof left SCM muscle, left neck dissection (levels II-V) - c/b by left chest wall bleeding and hematoma - s/p 08/13 return to the OR x 2 for hematoma evacuation and hemostasis - Continue pressure dressing additional 24 hrs - No flap checks required - No ties or pressure around neck - No ice to neck - Bacitracin to left neck BID Resp: - COPD: SALES APPRENTICE Albuterol PRN, SALES APPRENTICE Anoro ellipta - IS, pulmonary hygiene, respiratory driven protocol Cardiovascular: - HTN, HLD, A fib, chronic HFpEF - Hold SALES APPRENTICE Eliquis - SALES APPRENTICE Atorvastatin 20 mg qhs - Metoprolol 12.5 mg BID (SALES APPRENTICE on Toprol XL 25 mg daily) - Hold SALES APPRENTICE Lasix 20 mg daily PRN for lower extremity edema GI: - Diet: Renal diet - Nausea: Zofran PRN - GERD: SALES APPRENTICE Omeprazole 20 mg daily - Bowel regimen: Senna and colace BID Renal/Metabolic/Fluids: - LIZZ on CKD 4 - SALES APPRENTICE sodium bicarb 650 mg BID - Vitamin D deficiency: SALES APPRENTICE calcitriol Endocrine: - Hypogonadism: SALES APPRENTICE on testosterone injection every Wednesday - Hypothyroidism: SALES APPRENTICE Levothryoxine Infectious Disease: - Surgical prophylaxis - Unasyn x 48 hrs post-op - Then transition back to Keflex x 7 days (to cover for surgical site with bolster) Heme: - Acute blood loss anemia - Blood Management consult - CBC q6hrs, if stable this evening then liberalize to q12hrs - VTE ppx: SCDs, Restart Lovenox (discussed with ENT) Musculoskeletal/Integumentary/Rheum: - LUE duplex - PT/OT - Gout: SALES APPRENTICE Allopurinol Dispo: - Remain in ICU Was critical care rendered? Yes. I have personally provided 45 minutes of critical care time exclusive of time spent on separately billable procedures. Time includes review of laboratory data, radiology results, discussion with consultants, and monitoring for potential decompensation. Interventions were performed as documented above. Upon my evaluation, this patient had a high probability of imminent or life- threatening deterioration due to critical care diagnostic services for circulatory failure, hematologic failure and therapeutic services with frequent evaluation and titration of therapies for this patient on the date referenced above, which required my direct attention, intervention, and personal management. Diana Carrillo MD, FACS Trauma, Emergency General Surgery, and Critical Care Principal Problem: SCC (squamous cell carcinoma) (POA: Yes) Active Problems: Essential hypertension (POA: Yes) Overview: ICD-10 update of inactive term Gastroesophageal reflux disease without esophagitis (POA: Yes) HTN, goal below 140/90 (POA: Yes) Dyslipidemia, goal LDL below 70 (POA: Yes) Acquired hypothyroidism (POA: Yes) Paroxysmal atrial fibrillation (HCC) (POA: Yes) Chronic anticoagulation (POA: Yes) CKD (chronic kidney disease) stage 4, GFR 15-29 ml/min (HCC) (POA: Yes) Atherosclerotic heart disease of [place] coronary artery without angina pectoris (POA: Yes) COPD, moderate (HCC) (POA: Yes) Overview: Per COPD GOLD Classification 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) (POA: Yes) Chronic gout due to renal impairment of multiple sites without tophus (POA: Yes) Post-operative state (POA: Yes) Postoperative anemia due to acute blood loss (POA: Yes) Hematoma of left chest wall (POA: No) LIZZ (acute kidney injury) (HCC) (POA: No) POA = Present On Admission * Vivi Mendoza MD - 08/13/2024 7:16 AM EDT PROGRESS NOTE - Trauma ICU [address] [address] Name: Kennedy Davis Location: [facility] Date: 08/13/2024 Time: 8:22 AM ADMISSION DATE: 01/22/2022 OPERATIONS / PROCEDURES: 08/10 LEFT pectoralis major myocutaneous pedicled flap, adjacent tissue transfer, split thickness skin graft HPI: Patient is a 78 yo male admitted to SICU 08/10 post op. He was taken to the OR 08/10 with ENT for a LEFT neck composite resection left sternocleidomastoid muscle and a left neck dissection for SCC leftneck with pectoralis flap reconstruction. He was transferred to the ICU post -op for monitoring. Active Problems: SCC (squamous cell carcinoma) (POA: Unknown) Post-operative state (POA: Unknown) Postoperative anemia due to acute blood loss (POA: Unknown) Resolved Problems: * No resolved hospital problems. * INTERIM HISTORY (LAST 24 HOURS): NAEO. Af. HDS. Regular rate. Oxygenating well on RA. This morning received report from nurse for neck swelling. On evaluation of patient anterior chest wall is swollen, tense, and TTP. ENT notified of concern for hematoma. Repeat cbc, type and screen ordered. Patient made NPO. PO 480 IV 49 ml UO 2.2 L Chest drain 130, chest drain 47, neck drain 10 PHYSICAL EXAMINATION: Most Recent Vital Signs: BP: 113 mmHg/68 mmHg (08/13/24 0600) Pulse: 95 (08/13/24 0609) Temp: 36.78 C (08/13/24 0000) Resp: 19 (08/13/24617) SpO2: 98 % (08/13/24617) SpO2: 98 % (08/13/24617) Vital Signs Last 24 Hours: Systolic BP: Most Recent Systolic BP Av mmHg Min: 108 mmHg Max: 171 mmHg Temperature: Most Recent Temperature Av.8 C Min: 36.78 C Max: 37 C Pulse: Pulse Av.6 Min: 65 Max: 96 Respirations: Resp Av.1 Min: 15 Max: 32 SpO2: SpO2 Av.2 % Min: 88 % Max: 100 % Intake/Output Summary (Last 24 hours) at 08/13/2024 0822 Last data filed at 08/13/2024 0400 Gross per 24 hour Intake 529.87 ml Output 2132 ml Net -1602.13 ml Gen: NAD Head: normocephalic, LEFT post auricular and occipital with bolster in place over skin graft Eyes: sclera white Neck: LEFT neck incision closed with caro, well approximated, dried blood in place. Drain with sanguinous output in tubing only. Ecchymotic tissue surrounding Chest: incision is well approximated with caro. Anterior chest wall swollen, tense, TTP. Concernfor underlying hematoma. Drain in place x 2 with sanguinous output in line but recently emptied by nursing and nothing has accumulated in bulb Resp: no increased work of breathing, oxygenating well on room air Cardiac: regular rate, distally perfused Abd: obese, soft, round, NTTP, nondistended Back: SALES APPRENTICE hematoma overlying hard nodule in RIGHT lower back Extremities: no edema, clubbing, or cyanosis Skin: no jaundice or rash Neuro: awake, alert, answers questions appropriately Psych: normal behavior, normal judgement LABORATORIES: Labs reviewed as indicated below: Lab results within last 7 days (see chart for full results) Units 08/13/24 0717 08/13/24 0432 08/12/24 2340 08/12/24 1220 08/12/24 0532 08/11/24 0854 08/11/24 0508 08/11/24 0206 HGB g/dL 7.9* 7.9* 7.8* < > 8.0* < > 6.0* -- WBC K/uL 12.82* 9.95 9.86 < > 9.01 < > 15.45* -- PLT K/uL 81* 80* 77* < > 59* < > 67* -- SODIUM mmol/L -- 138 -- -- 141 -- 140 -- POTASSIUM mmol/L -- 4.5 -- -- 4.8 -- 5.3* -- CREATININE mg/dL -- 2.9* -- -- 3.0* -- 3.0* -- GLUCOSE mg/dL -- 94 -- -- 99 -- 97 -- Magnesium mg/dL -- -- -- -- 2.1 -- 1.4* -- Phosphorus mg/dL -- -- -- -- 3.9 -- 3.5 -- Lactate mmol/L -- -- -- -- -- -- -- 2.2* < > = values in this interval not displayed. CULTURES / SENSITIVITIES: 08/10/2024 UA with large esterase, >200 bacteria, 50+ WBC, WBC clumps Urine clx no growth Blood clx NGTD RADIOGRAPHIC STUDIES: No imaging results in the last 24 hours SYSTEM BASED PLAN: NEURO: # multimodal analgesia ATC tylenol Oxycodone 2.5/5 (1/24h) Dilaudid for breakthrough pain PULMONARY / RESPIRATORY: #Squamous cell carcinoma left neck status post excision and reconstruction with LEFT pectoralis flap, adjacent tissue rearrangement, and split thickness skin graft Call ENT for any questions Hold Eliquis for now Per ENT No flap checks required Hold AC, can start DVT ppx POD #1 LETY drains to bulb suction No ties or pressure around neck No ice to neck Bacitracin to left neck BID Reinforce tegaderm dressing on left leg for saturation PRN # COPD gold E Plan SALES APPRENTICE and RO SALES APPRENTICE albuterol inhaler twice daily CARDIAC / VASCULAR: # paroxysmal atrial fibrillation Resume SALES APPRENTICE metoprolol succinate 25 daily Hold SALES APPRENTICE Eliquis until ENT clears #Dyslipidemia Resume PT atorvastatin 20 mg HF P EF P.r.n. Lasix 08/13 +0.3 L (admission) GI / HEPATOBILIARY: # regular diet post op Senna Colace for bowel regimen SALES APPRENTICE omeprazole RENAL / METABOLIC / FLUIDS: # CKD stage 4 Continues to make urine Plan Continue calcitriol 0.25 Continue sodium bicarb 650 INFECTIOUS DISEASES: # continue abx by ENT Febrile 08/10 Cephalexin 500 mg q8h start 08/12-stop 08/13 and transition to unasyn for 24 hrs. Resume cephalexin 500 mg q8h on 08/14 last dose 08/17 pm ENDOCRINE: # hypothyroidism Continue SALES APPRENTICE levothyroxine 50 mcg #Gout Continue allopurinol 200 mg CCM BGL goals of 140-180 mg/dl HEMATOLOGIC: #DVT PPX: SCDs, hold chemo ppx d/t ENT request Concern for hematoma at chest wall; to OR 08/13 - evacuation of hematoma, vessel cauterized. Closed. return to floor notable for >500 ml out of drains. Intermittently hypotensive. ENT called, will return to OR. PRBC and NSS bolus ordered. MUSCULOSLETAL / DERM: #PT/OT Devices: Peripheral Line Right;Lower;Median;Anterior Arm 22 Gauge (Active) Number of days: 2 Peripheral Line Right;Upper Arm 20 Gauge (Active) Number of days: 1 Drain Melvin Sherwood Left Neck (Active) Number of days: 3 Dispo: remain in ICU for close hemodynamic monitoring Patient's decisional capacity: has capacity to make decisions Patient seen and examined. Discussed with Dr. Zeina Treadwell MD General Surgery Resident 08/13/2024 8:22 AM Associated attestation - Bre Pastrana DO - 08/13/2024 5:27 PM EDT I have seen and examined the patient during ICU rounds. I have reviewed the history, physical, chart, labs, x-rays, ct scans and pertinent data. The case was discussed with Dr. Treadwell, the Physician Assistants, and the Fountain Roller Assembler. I agree with the above and the plan is as follows: Patient is a 78 yo male admitted 08/10 post op. He was taken to the OR today with ENT for a left neck composite resection left sternocleidomastoid muscle and a left neck dissection for SCC left neck. He was transferred to the ICU post -op for monitoring. PMHx: atrial fibrillation on Eliquis, CKD stage 4, previously on dialysis, chronic anemia, heart failure with preserved ejection fraction, erythema nodosum, COPD, squamous cell carcinoma of left neck, AAA, Acute pancreatitis, LIZZ, Aspergillosis, ATN, B/L Pneumonia, retinal vein occlusion right eye,CAP, COPD, DM, Enteritis, Erythema nodosum, Esophageal reflux, Heart failure, Herpes Zoster, Hypertensive heart disease, Protein calorie malnutrition, Hypercholesterolemia, Sepsis,Stage II pressure ulcer left buttock, Tinea cruris, HTN, Uveitis Procedures / Operations: 08/10 OR ENT: Left neck composite resection including skin, underlying subcutaneous tissue and portion of left SCM muscle, left neck dissection (levels II-V), Left pectoralis major myocutaneous pedicled flap - adjacent tissue transfer (6 x 15 cm medial chest wall, 8 x 15 cm lateral chest wall), split thickness skin graft (10 cm x 10 cm) EBL: 100 ml, Fluids 1500 ml, Dexamethasone 8 mg 10/ OR ENT: Exploration chest wall hematoma 10/ OR ENT: Re-exploration chest wall hematoma Diagnoses: Squamous cell carcinoma left neck COPD gold E Paroxysmal A-rib DLD HFpEF CKD IV Hypothyroidism Gout Neuro: Patient remains on room air with supplemental oxygen as needed. POD # 3 left neck composite resection including skin, underlying subcutaneous tissue and portion of left SCM muscle, left neck dissection (levels II-V), Left pectoralis major myocutaneous pedicled flap - adjacent tissue transfer, and split thickness skin graft. Left thigh harvest site was bleeding post-op and the following morning but eventually stopped with additional dressings - site looks good. He awake, alert, and very interactive this morning. Apparently it was noted that he had significantly increased drainage from his left chest wall drain and then developed a hematoma. HE was taken to the OR early this morning for exploration and hemostasis. A short while after the OR it was again noted that the drain in the left chest wall was bloody and filling up fairly quickly. He was taken back to the OR again for re-exploration and control of bleeding. Pain control with Tylenol as well as OxyIR prn and Dilaudid for breakthrough as needed. Consult PT/OT for reconditioning as well as increased activity and mobilization. CV: Hemodynamically labile. IV fluids off. Urine Outputs adequate - voiding. He was noted to have dropped his BP a little this morning prior to the OR and was given a bolus of NS and 1 PRBC was ordered. Continue the bladder scan / straight cath protocol as needed. Hg 6.0 three days ago and he was given a PRBC and only responded to 6.1 - transfuse an additional PRBC and recheck labs. He initially responded and then dropped back down to 6.5 around MN two nights ago - given another PRBC at that time for a total of 3 PRBCs, 1 Cryo, and 1 Plasma prior to this morning - his TEG had normalized. I suspect he just had not equilibrated from the surgery and he did have some additional blood loss from the harvest site. This morning he was back down to 6.8 and was given a total of 2 PRBCs. Recheck andreplete electrolytes accordingly. TEDs/SCDs for DVT prophylaxis. Heparin for chemical prophylaxis (LIZZ). Check labs and address accordingly. Resumed Lipitor, Levoxyl and NaBicarb tabs. Resumed Toprol. Recheck labs after bleeding episodes today. Resp: Needs aggressive pulmonary toilet and chest physiotherapy. Remains on room air with supplemental oxygen as needed. Wean as tolerated. Incentive Spirometer/Flutter hourly as able. GI: Colace and Senna for bowel regimen as needed . Pepcid if needed for GI Prophylaxis. Follow bowel activity. Tolerating a regular diet and doing well - NPO for the OR this morning. ID: Culture prn and treat clinically. Ancef Kindra-Op antibiotics - ordered through 08/15 per ENT. He was briefly changed to Cefepime three nights ago when he had a tmax of 38.6 but there was no significant evidence of an infectious process - and he was changed back to Ancef to complete coverage per ENT two days ago. Now that he is taking adequate po intake, will change to Keflex for a total of 7 days for coverage of the bolster dressing. Patient's decisional capacity: does not have capacity to make decisions Communication with Patient/Family: No meeting held. Goals of Care: improve respiratory status, wean respiratory parameters, stabilize hemodynamic status, improve mental status to baseline, and decrease pain and discomfort Bre Pastrana DO, FACOS Rounding Trauma/Surgical Critical Care Attending Total Critical Care Time: 36 mins I saw and evaluated the patient today. I have reviewed the resident/fellow physician note and agree. I have provided critical care diagnostic services for circulatory failure, neurologic failure, respiratory failure and therapeutic services with volume resuscitation, frequent vasoactive agent adjustments, frequent ventilator adjustments, neurological monitoring and treatment, treatment of complex m etabolic, frequent evaluation and titration of therapies for this patient on the date referenced above. Time devoted to patient care services described in this note equal: 36 minutes total critical care time exclusive of time spent performing procedures or time spent by another provider or resident. * Holger Bhatt MD - 08/12/2024 10:35 AM EDT PROGRESS NOTE - Trauma ICU [address] [address] Name: Kennedy Davis [place] [facility] [id number] Date: 08/12/2024 Time: 10:36 AM ADMISSION DATE: 01/22/2022 OPERATIONS / PROCEDURES: 08/10 LEFT pectoralis major myocutaneous pedicled flap, adjacent tissue transfer, split thickness skin graft HPI: Patient is a 78 yo male admitted to SICU 08/10 post op. He was taken to the OR 08/10 with ENT for a LEFT neck composite resection left sternocleidomastoid muscle and a left neck dissection for SCC leftneck with pectoralis flap reconstruction. He was transferred to the ICU post -op for monitoring. Active Problems: SCC (squamous cell carcinoma) (POA: Unknown) Post-operative state (POA: Unknown) Postoperative anemia due to acute blood loss (POA: Unknown) Resolved Problems: * No resolved hospital problems. * INTERIM HISTORY (LAST 24 HOURS): - received 1UpRBC PHYSICAL EXAMINATION: Most Recent Vital Signs: BP: 146 mmHg/56 mmHg (08/12/24899) Pulse: 81 (08/12/24899) Temp: 36.78 C (08/12/24799) Resp: 19 (08/12/24899) SpO2: 97 % (08/12/24899) SpO2: 97 % (08/12/24899) Vital Signs Last 24 Hours: Systolic BP: Most Recent Systolic BP Av.1 mmHg Min: 92 mmHg Max: 170 mmHg Temperature: Most Recent Temperature Av C Min: 36.61 C Max: 37.61 C Pulse: Pulse Av.6 Min: 70 Max: 114 Respirations: Resp Av.8 Min: 17 Max: 35 SpO2: SpO2 Av.5 % Min: 90 % Max: 100 % Intake/Output Summary (Last 24 hours) at 08/12/2024 1036 Last data filed at 08/12/2024 1000 Gross per 24 hour Intake 2465.72 ml Output 2530 ml Net -64.28 ml Gen: NAD Head: normocephalic, LEFT post auricular and occipital with bolster in place over skin graft Eyes: sclera white Neck: LEFT neck incision closed with caro, well approximated, dried blood in place. Drain with sanguinous output in tubing only. Ecchymotic tissue surrounding Chest: incision is well approximated with caro. No signs of hematoma. 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 hematoma overlying hard nodule in RIGHT lower back Extremities: no edema, clubbing, or cyanosis Skin: no jaundice or rash Neuro: awake, alert, answers questions appropriately Psych: normal behavior, normal judgement LABORATORIES: Labs reviewed as indicated below: Lab results within last 7 days (see chart for full results) Units 08/12/24 0532 08/12/24 0006 08/11/24 1732 08/11/24 0854 08/11/24 0508 08/11/24 0206 08/10/24202508/10/24 1553 HGB g/dL 8.0* 6.5* 7.2* < > 6.0* -- < > 9.4* WBC K/uL 9.01 8.78 10.56 < > 15.45* -- < > 8.38 PLT K/uL 59* 50* 51* < > 67* -- < > 90* SODIUM mmol/L 141 -- -- -- 140 -- -- 137 POTASSIUM mmol/L 4.8 -- -- -- 5.3* -- -- 4.9 CREATININE mg/dL 3.0* -- -- -- 3.0* -- -- 2.6* GLUCOSE mg/dL 99 -- -- -- 97 -- -- 146* Magnesium mg/dL 2.1 -- -- -- 1.4* -- -- -- Phosphorus mg/dL 3.9 -- -- -- 3.5 -- -- -- Lactate mmol/L -- -- -- -- -- 2.2* -- -- < > = values in this interval not displayed. CULTURES / SENSITIVITIES: 08/10/2024 UA with large esterase, >200 bacteria, 50+ WBC, WBC clumps Urine clx in process Blood clx in process RADIOGRAPHIC STUDIES: No imaging results in the last 24 hours SYSTEM BASED PLAN: NEURO: # multimodal analgesia ATC tylenol Oxycodone 5, 10 Dilaudid for breakthrough pain PULMONARY / RESPIRATORY: #Squamous cell carcinoma left neck status post excision and reconstruction with LEFT pectoralis flap, adjacent tissue rearrangement, and split thickness skin graft Call ENT for any questions Hold Eliquis for now Continue Ancef per ENT Per ENT No flap checks required Hold AC, can start DVT ppx POD #1 LETY drains to bulb suction No ties or pressure around neck No ice to neck Bacitracin to left neck BID Reinforce tegaderm dressing on left leg for saturation PRN # COPD gold E Plan SALES APPRENTICE and RO SALES APPRENTICE albuterol inhaler twice daily CARDIAC / VASCULAR: # paroxysmal atrial fibrillation Resume SALES APPRENTICE metoprolol succinate 25 daily Hold SALES APPRENTICE Eliquis until ENT clears #Dyslipidemia Resume PT atorvastatin 20 mg HF P EF P.r.n. Lasix 08/11 +1.1 L (admission) GI / HEPATOBILIARY: # regular diet Senna Colace for bowel regimen SALES AP[employer]ICE omeprazole RENAL / METABOLIC / FLUIDS: # CKD stage 4 Continues to make urine Plan Continue calcitriol 0.25 Continue sodium bicarb 650 Continue IVF until 1700 on 08/11 INFECTIOUS DISEASES: # continue Ancef by ENT Febrile 08/10 ENDOCRINE: # hypothyroidism Continue SALES AP[employer]ENTICE levothyroxine 50 mcg #Gout Continue allopurinol 200 mg [facility] BGL goals of 140-180 mg/dl HEMATOLOGIC: #DVT PPX: SCDs, heparin MUSCULOSLETAL / DERM: #PT/OT Devices: Urethral Catheter Coude (Active) Number of days: 2 Peripheral Line Right;Lower;Median;Anterior Arm 22 Gauge (Active) Number of days: 1 Drain Melvin Sherwood Left Chest (Active) Number of days: 2 Drain Melvin Sherwood Left Chest (Active) Number of days: 2 Drain Melvin Sherwood Left Neck (Active) Number of days: 2 Arterial Line Left Radial (Active) Number of days: 2 Dispo: remain in ICU for close hemodynamic monitoring Patient's decisional capacity: has capacity to make decisions Patient seen and examined. Discussed with Dr. Zeina Bhatt M.D [facility] Fellow 08/12/2024 10:36 AM Associated attestation - Bre Pastrana DO - 08/12/2024 3:17 PM EDT I have seen and examined the patient during ICU rounds. I have reviewed the history, physical, chart, labs, x-rays, ct scans and pertinent data. The case was discussed with Dr. Bhatt, the Physician Assistants, and the Fountain Roller Assembler. I agree with the above and the plan is as follows: Patient is a 78 yo male admitted 08/10 post op. He was taken to the OR today with ENT for a left neck composite resection left sternocleidomastoid muscle and a left neck dissection for SCC left neck. He was transferred to the ICU post -op for monitoring. PMHx: atrial fibrillation on Eliquis, CKD stage 4, previously on dialysis, chronic anemia, heart failure with preserved ejection fraction, erythema nodosum, COPD, squamous cell carcinoma of left neck, AAA, Acute pancreatitis, LIZZ, Aspergillosis, ATN, B/L Pneumonia, retinal vein occlusion right eye,CAP, COPD, DM, Enteritis, Erythema nodosum, Esophageal reflux, Heart failure, Herpes Zoster, Hypertensive heart disease, Protein calorie malnutrition, Hypercholesterolemia, Sepsis,Stage II pressure ulcer left buttock, Tinea cruris, HTN, Uveitis Procedures / Operations: 10 OR ENT: Left neck composite resection including skin, underlying subcutaneous tissue and portion of left SCM muscle, left neck dissection (levels II-V), Left pectoralis major myocutaneous pedicled flap - adjacent tissue transfer (6 x 15 cm medial chest wall, 8 x 15 cm lateral chest wall), split thickness skin graft (10 cm x 10 cm) EBL: 100 ml, Fluids 1500 ml, Dexamethasone 8 mg Diagnoses: Squamous cell carcinoma left neck COPD gold E Paroxysmal A-rib DLD HFpEF CKD IV Hypothyroidism Gout Neuro: Patient remains on room air with supplemental oxygen as needed. POD # 2 left neck composite resection including skin, underlying subcutaneous tissue and portion of left SCM muscle, left neck dissection (levels II-V), Left pectoralis major myocutaneous pedicled flap - adjacent tissue transfer, and split thickness skin graft. Left thigh harvest site was bleeding post-op and yesterday morningbut has finally stopped - site looks good. He awake, alert, and very interactive this morning. Paincontrol with Tylenol as well as OxyIR prn and Dilaudid for breakthrough as needed. Consult PT/OT for reconditioning as well as increased activity and mobilization. CV: Hemodynamically labile. IV fluids off. Urine Outputs improved: 50 - 120 ml/hr. Vitale Catheter for accurate monitoring - okay to remove today and start the bladder scan / straight cath protocol asneeded. Hg 6.0 two days ago and he was given a PRBC and only responded to 6.1 - transfuse an additional PRBC and recheck labs. He initially responded and then dropped back down to 6.5 around [place] last night - given another PRBC at that time. Total in 24 hours: 3 PRBCs, 1 Cryo, and 1 Plasma -- much better this morning and TEG normalized. I suspect he just had not equilibrated from the surgery and hedid have some additional blood loss from the harvest site. Recheck and replete electrolytes accordingly. TEDs/SCDs for DVT prophylaxis. Okay to start Heparin for chemical prophylaxis (LIZZ). Check labs and address accordingly. Resumed Lipitor, Levoxyl and NaBicarb tabs. Resumed Toprol. Resp: Needs aggressive pulmonary toilet and chest physiotherapy. Remains on room air with supplemental oxygen as needed. Wean as tolerated. Incentive Spirometer/Flutter hourly as able. GI: Colace and Senna for bowel regimen as needed . Pepcid if needed for GI Prophylaxis. Follow bowel activity. Tolerating a regular diet and doing well. ID: Culture prn and treat clinically. Ancef Kindra-Op antibiotics - ordered through 08/15 per ENT. He was briefly changed to Cefepime two nights ago when he had a tmax of 38.6 but there was no significant evidence of an infectious process - and he was changed back to Ancef to complete coverage per ENT yesterday. Now that he is taking adequate po intake, will change to Keflex for a total of 7 days for coverage of the bolster dressing. Patient's decisional capacity: does not have capacity to make decisions Communication with Patient/Family: No meeting held. Goals of Care: improve respiratory status, wean respiratory parameters, stabilize hemodynamic status, improve mental status to baseline, and decrease pain and discomfort Bre Pastrana DO, FACOS Rounding Trauma/Surgical Critical Care Attending Total Critical Care Time: 36 mins I saw and evaluated the patient today. I have reviewed the resident/fellow physician note and agree. I have provided critical care diagnostic services for circulatory failure, neurologic failure, respiratory failure and therapeutic services with volume resuscitation, frequent vasoactive agent adjustments, frequent ventilator adjustments, neurological monitoring and treatment, treatment of complex m etabolic, frequent evaluation and titration of therapies for this patient on the date referenced above. Time devoted to patient care services described in this note equal: 36 minutes total critical care time exclusive of time spent performing procedures or time spent by another provider or resident. * Vivi Mendoza MD - 08/11/2024 4:52 AM EDT PROGRESS NOTE - Trauma ICU [address] [address] Name: Kennedy Davis [place] [facility] [id number] Date: 08/11/2024 Time: 12:01 PM ADMISSION DATE: 01/22/2022 OPERATIONS / PROCEDURES: 08/10 LEFT pectoralis major myocutaneous pedicled flap, adjacent tissue transfer, split thickness skin graft HPI: Patient is a 78 yo male admitted to SICU 08/10 post op. He was taken to the OR 08/10 with ENT for a LEFT neck composite resection left sternocleidomastoid muscle and a left neck dissection for SCC leftneck with pectoralis flap reconstruction. He was transferred to the ICU post -op for monitoring. Active Problems: SCC (squamous cell carcinoma) (POA: Unknown) Post-operative state (POA: Unknown) Resolved Problems: * No resolved hospital problems. * INTERIM HISTORY (LAST 24 HOURS): 08/11/2024 OR yesterday. Febrile overnight. Tmax 38.6. Tachycardic to max 108. HDS. On RA. Fever work up initiated. See below IV 2.6 UO 1.3L LEFT chest drain 270 LEFT chest drain 230 LEFT neck drain 165 Today he feels well. Denies pain. Endorses thirst. State overall he feels really well. PHYSICAL EXAMINATION: Most Recent Vital Signs: BP: 124 mmHg/53 mmHg (08/11/24 1100) Pulse: 110 (08/11/24 1100) Temp: 37 C (08/11/24 1000) Resp: 23 (08/11/24 1100) SpO2: 93 % (08/11/24 1100) SpO2: 93 % (08/11/24 1100) Vital Signs Last 24 Hours: Systolic BP: Most Recent Systolic BP Av.1 mmHg Min: 91 mmHg Max: 209 mmHg Temperature: Most Recent Temperature Av.9 C Min: 36.5 C Max: 38.61 C Pulse: Pulse Av.7 Min: 80 Max: 116 Respirations: Resp Av.2 Min: 15 Max: 29 SpO2: SpO2 Av % Min: 88 % Max: 100 % Intake/Output Summary (Last 24 hours) at 08/11/2024 1201 Last data filed at 08/11/2024 0900 Gross per 24 hour Intake 2946.25 ml Output 2148 ml Net 798.25 ml Gen: NAD Head: normocephalic, LEFT post auricular and occipital with bolster in place over skin graft Eyes: sclera white Neck: LEFT neck incision closed with caro, well approximated, dried blood in place. Drain with sanguinous output in tubing only. Ecchymotic tissue surrounding Chest: incision is well approximated with caro. No signs of hematoma. 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 hematoma overlying hard nodule in RIGHT lower back Extremities: no edema, clubbing, or cyanosis Skin: no jaundice or rash Neuro: awake, alert, answers questions appropriately Psych: normal behavior, normal judgement LABORATORIES: Labs reviewed as indicated below: Lab results within last 7 days (see chart for full results) Units 08/11/24 0854 08/11/24 0508 08/11/24 0206 08/10/24 2306 08/10/246 08/10/24 1553 HGB g/dL 6.1* 6.0* -- 7.7* < > 9.4* WBC K/uL 12.49* 15.45* -- 19.95* < > 8.38 PLT K/uL 58* 67* -- 96* < > 90* SODIUM mmol/L -- 140 -- -- -- 137 POTASSIUM mmol/L -- 5.3* -- -- -- 4.9 CREATININE mg/dL -- 3.0* -- -- -- 2.6* GLUCOSE mg/dL -- 97 -- -- -- 146* Magnesium mg/dL -- 1.4* -- -- -- -- Phosphorus mg/dL -- 3.5 -- -- -- -- Lactate mmol/L -- -- 2.2* -- -- -- < > = values in this interval not displayed. CULTURES / SENSITIVITIES: 08/10/2024 UA with large esterase, >200 bacteria, 50+ WBC, WBC clumps Urine clx in process Blood clx in process RADIOGRAPHIC STUDIES: No imaging results in the last 24 hours SYSTEM BASED PLAN: NEURO: # multimodal analgesia ATC tylenol Oxycodone 5, 10 Dilaudid for breakthrough pain PULMONARY / RESPIRATORY: #Squamous cell carcinoma left neck status post excision and reconstruction with LEFT pectoralis flap, adjacent tissue rearrangement, and split thickness skin graft Call ENT for any questions Hold Eliquis for now Continue Ancef per ENT Continue Ancef until 08/11 Per ENT No flap checks required Hold AC, can start DVT ppx POD #1-hold as pt is requiring blood transfusions LETY drains to bulb suction No ties or pressure around neck No ice to neck Bacitracin to left neck BID Reinforce tegaderm dressing on left leg for saturation PRN # COPD gold E Plan SALES APPRENTICE and RO SALES APPRENTICE albuterol inhaler twice daily CARDIAC / VASCULAR: # paroxysmal atrial fibrillation Resume SALES APPRENTICE metoprolol succinate 25 daily Hold SALES APPRENTICE Eliquis until ENT clears #Dyslipidemia Resume PT atorvastatin 20 mg HF P EF P.r.n. Lasix 08/11 +1.1 L (admission) GI / HEPATOBILIARY: # regular diet Senna Colace for bowel regimen [employer]ES AP[employer]ENTICE omeprazole RENAL / METABOLIC / FLUIDS: # CKD stage 4 Continues to make urine Plan Continue calcitriol 0.25 Continue sodium bicarb 650 Continue IVF until 1700 on 08/11 INFECTIOUS DISEASES: # continue Ancef by ENT Febrile 08/10 UTI - ancef ENDOCRINE: # hypothyroidism Continue SALES APPRENTICE levothyroxine 50 mcg #Gout Continue allopurinol 200 mg [facility] BGL goals of 140-180 mg/dl HEMATOLOGIC: #DVT PPX: SCDs, chemo ppx on hold d/t requiring blood transfusions MUSCULOSLETAL / DERM: #PT/OT Devices: Urethral Catheter Coude (Active) Number of days: 1 Peripheral Line Left;Lower;Posterior Arm 18 Gauge (Active) Number of days: 1 Peripheral Line Lower;Right (Active) Number of days: 1 Drain Melvin Sherwood Left Chest (Active) Number of days: 1 Drain Melvin Sherwood Left Chest (Active) Number of days: 1 Drain Melvin Sherwood Left Neck (Active) Number of days: 1 Arterial Line Left Radial (Active) Number of days: 1 Dispo: remain in ICU for close hemodynamic monitoring Patient's decisional capacity: has capacity to make decisions Patient seen and examined. Discussed with Dr. Zeina Treadwell MD General Surgery Resident 08/11/2024 12:01 PM Associated attestation - Bre Pastrana DO - 08/11/2024 5:22 PM EDT I have seen and examined the patient during ICU rounds. I have reviewed the history, physical, chart, labs, x-rays, ct scans and pertinent data. The case was discussed with Dr. Treadwell, the Physician Assistants, and the Fountain Roller Assembler. I agree with the above and the plan is as follows: Patient is a 78 yo male admitted 08/10 post op. He was taken to the OR today with ENT for a left neck composite resection left sternocleidomastoid muscle and a left neck dissection for SCC left neck. He was transferred to the ICU post -op for monitoring. PMHx: atrial fibrillation on Eliquis, CKD stage 4, previously on dialysis, chronic anemia, heart failure with preserved ejection fraction, erythema nodosum, COPD, squamous cell carcinoma of left neck, AAA, Acute pancreatitis, LIZZ, Aspergillosis, ATN, B/L Pneumonia, retinal vein occlusion right eye,CAP, COPD, DM, Enteritis, Erythema nodosum, Esophageal reflux, Heart failure, Herpes Zoster, Hypertensive heart disease, Protein calorie malnutrition, Hypercholesterolemia, Sepsis,Stage II pressure ulcer left buttock, Tinea cruris, HTN, Uveitis Procedures / Operations: 08/10 OR ENT: Left neck composite resection including skin, underlying subcutaneous tissue and portion of left SCM muscle, left neck dissection (levels II-V), Left pectoralis major myocutaneous pedicled flap - adjacent tissue transfer (6 x 15 cm medial chest wall, 8 x 15 cm lateral chest wall), split thickness skin graft (10 cm x 10 cm) EBL: 100 ml, Fluids 1500 ml, Dexamethasone 8 mg Diagnoses: Squamous cell carcinoma left neck COPD gold E Paroxysmal A-rib DLD HFpEF CKD IV Hypothyroidism Gout Neuro: Patient remains on room air with supplemental oxygen as needed. POD # 1 left neck composite resection including skin, underlying subcutaneous tissue and portion of left SCM muscle, left neck dissection (levels II-V), Left pectoralis major myocutaneous pedicled flap - adjacent tissue transfer, and split thickness skin graft. Left thigh harvest site was bleeding over night and has finally stopped with additional dressings. He awake, alert, and very interactive this morning. Pain control with Tylenol as well as OxyIR prn and Dilaudid for breakthrough as needed. Consult PT/OT for evaluation as well as increased activity and mobilization. CV: Hemodynamically labile. IV fluids NS at 100 ml/hr. Urine Outputs marginal at times but adequateat 15 - 100 ml/hr. When his outputs drifted down he was given a liter bolus with good response. Vitale Catheter for accurate monitoring pending resolution of his bleeding. Hg 6.0 this morning and he was given a PRBC and only responded to 6.1 - transfuse an additional PRBC and recheck labs. I suspecthe just has not equilibrated yet and did have some additional blood loss from the harvest site. Recheck and replete electrolytes accordingly. TEDs/SCDs for DVT prophylaxis. Holding chemical prophylaxis post-op. Check labs and address accordingly. Resume Lipitor, Levoxyl and NaBicarb tabs. Resume Toprol. Resp: Needs aggressive pulmonary toilet and chest physiotherapy. Remains on room air with supplemental oxygen as needed. Wean as tolerated. Incentive Spirometer/Flutter hourly as able. GI: Colace and Senna for bowel regimen as needed . Pepcid if needed for GI Prophylaxis. Follow bowel activity. Swallow evaluation and start po intake if okay with primary operative service. ID: Culture prn and treat clinically. Ancef Kindra-Op antibiotics - ordered through 08/15 per ENT was changed to Cefepime last night when he had a tmax of 38.6. There is no significant evidence of an infectious process - will change back to Ancef to complete coverage per ENT. He can switch to Keflex for a total of 7 days coverage for the bolster dressing. Patient's decisional capacity: does not have capacity to make decisions Communication with Patient/Family: No meeting held. Goals of Care: improve respiratory status, wean respiratory parameters, stabilize hemodynamic status, improve mental status to baseline, and decrease pain and discomfort Bre Pastrana DO, FACOS Rounding Trauma/Surgical Critical Care Attending Total Critical Care Time: 40 mins I saw and evaluated the patient today. I have reviewed the resident/fellow physician note and agree. I have provided critical care diagnostic services for circulatory failure, neurologic failure, respiratory failure and therapeutic services with volume resuscitation, frequent vasoactive agent adjustments, frequent ventilator adjustments, neurological monitoring and treatment, treatment of complex m etabolic, frequent evaluation and titration of therapies for this patient on the date referenced above. Time devoted to patient care services described in this note equal: 40 minutes total critical care time exclusive of time spent performing procedures or time spent by another provider or resident. 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 Holden is a 78-year-old gentleman with a history of atrial fibrillation on Eliquis, CKD stage 4, previously on dialysis, chronic anemia, heart failure with preserved ejection fraction, erythema nodosum, COPD, squamous cell carcinoma of left neck presented to [facility] for scheduled surgery with ENT. Procedure - left neck composite resection including skin, underlying subcutaneous tissue and portion of left SCM muscle, left neck dissection (levels II-V) Admitted to the SICU for further management. Upon arrival patient comfortable no acute distress. Intra op EBL 100 mL Received 1.5L IVF, 500cc bolus, dexamethasone 8mg PAST MEDICAL HISTORY: Past Medical History: Diagnosis Date Abdominal aortic aneurysm (AAA) without rupture (HCC) 07/11/2015 09/01/16: 3.78cm - repeat 1 yr 01/27/16: US: 3.87cm AAA - repeat 6 months 07/11/15: sts he had an US in the past - will check records Acute pancreatitis 03/09/2018 LIZZ (acute kidney injury) ([facility]) 06/26/2018 Aspergillosis ([facility]) 07/17/2019 history of Aspergillosis on the note on 3.[address] and AMP ATN (acute tubular necrosis) ([facility]) Bilateral pneumonia 08/08/2019 Acute, resolved? 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 Community acquired pneumonia 05/30/2019 COPD (chronic obstructive pulmonary disease) ([facility]) Diet-controlled diabetes mellitus ([facility]) 03/03/2021 Encounter for long-term (current) use of medications 09/06/2018 Enteritis 10/09/2017 Erythema nodosum Esophageal reflux Heart failure with acute decompensation, type unknown ([facility]) 06/07/2019 Herpes zoster without mention of complication History of pneumonia 06/22/2018 B/l PNA 06/2018 Hyperkalemia 12/16/2021 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 Hypoglycemia associated with type 2 diabetes mellitus ([facility]) 07/21/2019 Moderate protein-calorie malnutrition ([facility]) 01/06/2021 Protein-calorie malnutrition ([facility]) 06/23/2019 Pure hypercholesterolemia Sepsis ([facility]) acute Severe malnutrition ([facility]) 02/27/2018 Stage II pressure ulcer of left buttock ([facility]) 02/06/2022 Tinea cruris 09/28/2017 Unspecified essential hypertension Uveitis OS PAST SURGICAL HISTORY: Past Surgical History: Procedure Laterality Date ANESTH, LUMBAR SPINE/CORD SURGERY 2017 L2-L5 BRONCHOSCOPY, DX W/ EBUS, 1-2 NODES N/A 12/09/2017 BRONCHOSCOPY, RIGID OR FLEXIBLE, INCLUDING FLUOROSCOPIC GUIDANCE, WHEN PERFORMED; WITH EBUS GUIDED TRANSTRACHEAL AND/OR TRANSBRONCHIAL SAMPLING (EG, ASPIRATION[S]/BIOPSY[IES]), 1 OR 2 MEDIASTINAL AND/OR HILAR LYMPH NODE STATIONS OR STRUCTURES performed by Dominguez Aguilar MD at OR [facility] COLONOSCOPY, DIAGNOSTIC (RECTUM) 09/04/2015 Internal hemorrhoids, 5 yr recall COLONOSCOPY FLEXIBLE PROXIMAL DIAGNOSTIC performed by Yudelka Hopkins DO at [facility] COLONOSCOPY, DIAGNOSTIC (RECTUM) 01/05/2018 diverticulosis sigmoid colon/internal hemorrhoids/recall 5 years/COLONOSCOPY FLEXIBLE PROXIMAL DIAGNOSTIC performed by Farrukh Gilliam MD at [facility] EGD, FLEXIBLE, DIAGNOSTIC N/A 01/05/2018 hiatal hernia/normal/ESOPHAGOGASTRODUODENOSCOPY (EGD), FLEXIBLE, TRANSORAL, DIAGNOSTIC performed byFarrukh Gilliam MD at [facility] INSER CHU CAT,W/O PUMP;5YR/OLD N/A 06/16/2019 INSERT TUNNELED CENTRAL VENOUS CATHETER AGE 5 OR OLDER performed by Vickey Woodruff MD at OR [facility] INSERTION OF LENS PROSTHESIS Left 05/02/2020 IR VENOUS ACCESS NON-MEDIPORT 10/24/2019 OTHER (INFORMATION) Removal of basal cell carcimoma from the back. REPAIR INITIAL INGUINAL HERNIA REDUCIBLE AGE 5 OR MORE Left 2009 REPAIR INITIAL INGUINAL HERNIA REDUCIBLE AGE 5 OR MORE Right 02/07/2019 REPAIR INITIAL INGUINAL HERNIA REDUCIBLE AGE 5 OR MORE performed by Jonathan Correia DO at OR [facility] FAMILY HISTORY: Family History Problem Relation Name Age of Onset No Past Hx Mother at 97 Heart attack Father 84 Other (unknown cause of ) Sister Linda 90 Osteoporosis Sister Emmanuelle Renal Hx Sister Emmanuelle Osteoporosis Sister [place] Renal Hx Sister [place] Heart Disorder Brother Martin CAD started in his late 70's Diabetes Brother Martin Heart attack Brother Martin Diabetes Brother Fern Other (PVD) Brother Kelly Perpal vasc dz Gastro-intestinal disorder Brother Homero at 85 from liver cirrhosis - non-ETOH Cancer Brother Marbury in his late 70's from throat cancer Other (Other) Brother Michi at a couple of months from pneumonia Other (unknown cause of ) Brother Morales SOCIAL HISTORY: Social History Tobacco Use Smoking status: Former Current packs/day: 0.00 Average packs/day: 1 pack/day for 1 year (1.0 ttl pk-yrs) Types: Cigarettes Start date: 1964 Quit date: 1965 Years since quittin.7 Smokeless tobacco: Never Tobacco comments: quit smoking in the 1959 Vaping Use Vaping status: Never Used Substance Use Topics Alcohol use: Yes Comment: occasional Drug use: No PRIOR TO ADMISSION MEDS: Current Facility-Administered Medications Medication Dose Route Frequency Provider Last Rate Last Admin Albuterol Sulfate (Proventil) (2.5 MG/3ML) 0.083% inhalation solution 2.5 mg 2.5 mg Nebulizer BID(AM/PM) Holger Bhatt MD [START ON 08/11/2024] Allopurinol (Zyloprim) tab 200 mg 200 mg Oral Daily(AM) Holger Bhatt MD atorvaSTATin (Lipitor) tab 20 mg 20 mg Oral HS Holger Bhatt MD [START ON 08/11/2024] Calcitriol (Rocaltrol) cap 0.25 mcg 0.25 mcg Oral Daily(AM) Holger Bhatt MD ceFAZolin in dextrose (Ancef) ivpb 2 g 2 g IV Piggyback Q8H Holger Bhatt MD chlorHEXIDINE (Periogard) 0.12 % oral rinse 15 mL 15 mL Oral mucosal membrane BID (08,1999) Holger Bhatt MD HYDROmorphone (Dilaudid) inj 0.2 mg 0.2 mg IV Push Q4H PRN Holger Bhatt MD 0.2 mg at 08/10/24 1516 labetalol (Trandate) inj 10 mg 10 mg Intravenous Q6H PRN Holger Bhatt MD 10 mg at 08/10/24 1626 [START ON 08/11/2024] levothyroxine (Levoxyl) tab 50 mcg 50 mcg Oral Daily 0630 Holger Bhatt MD [START ON 08/11/2024] metoprolol succinate XL (toPROL XL) tab 25 mg 25 mg Oral Daily(AM) Holger Bhatt MD NSS infusion Intravenous Continuous Holger Bhatt MD 100 mL/hr at 08/10/24 1633 New Bag at 08/10/24 1633 [START ON 08/11/2024] omeprazole (PriLOSEC) cap 20 mg 20 mg Oral Daily(AM) Holger Bhatt MD Oral Hygiene: Mouth Swab with dentifrice Oral Q4H Limited (00;04;12;16) Holger Bhatt MD oxyCODONE (Oxy IR) tab 5 mg 5 mg Oral Q4H PRN Holger Bhatt MD oxyCODONE (Roxicodone) oral syrup 2.5 mg 2.5 mg Oral Q4H PRN Holger Bhatt MD [START ON 08/11/2024] predniSONE (Deltasone) tab 7.5 mg 7.5 mg Oral Daily(AM) Holger Bhatt MD sodium bicarbonate tab 650 mg 650 mg Oral BID(AM/PM) Holger Bhatt MD sodium chloride 0.9 % flush peripheral shantelle 3 mL 3 mL IV Push Q8H Holger Bhatt MD [START ON 08/11/2024] umeclidinium-vilanterol (ANORO ellipta) 62.5-25 MCG/INH inhaler 1 Puff 1 Puff Inhalation Daily(AM) Holger Bhatt MD ALLERGIES: Chlorhexidine, Iodinated contrast media, Azactam [aztreonam], Ciprofloxacin, Cephalosporins, and Levofloxacin ROS: PER HPI ABOVE. PHYSICAL EXAMINATION: Most Recent Vital Signs: BP: 176 mmHg/85 mmHg (08/10/24 0600) Pulse: 76 (08/10/24 0600) Resp: 18 (08/10/24 0600) Temp: 36.89 C (08/10/24 1600) Temp Summary: Temp Min: 36.5 C (97.7 F) Max: 36.9 C (98.4 F) SpO2: 96 % (08/10/24 0600) O2 flow rate: Supplemental O2 Delivery: Room Air, None (08/10/24 0623) General no acute distress CVS regular rate and rhythm Pulmonary clear breath sounds to auscultation Abdomen soft nontender no organomegaly Musculoskeletal the LETY drain Left thig flap C/D/I Neuro following commands appropriately LABORATORY VALUES: reviewed No results in the last 7 days - inpatent use only Lab results within last 7 days (see chart for full results) Units 08/10/24 1553 SODIUM mmol/L 137 POTASSIUM mmol/L 4.9 CHLORIDE mmol/L 105 CO2 mmol/L 19* BUN mg/dL 75* CREATININE mg/dL 2.6* No results in the last 7 days - inpatent use only No results in the last 7 days - inpatent use only CULTURES: Recent Cultures (2 Weeks) No lab values to display. RADIOGRAPHIC STUDIES: reviewed US ABDOMEN LIMITED Result Date: 08/10/2024 IMPRESSION 1. Tiny hypoechoic structure in the left lower back, possibly a tiny residual hematoma. 2. Heterogeneous collection in the midline lower back, possibly a hematoma. There is a linear echogenic structure within this collection, possibly a foreign body. Suggest CT for better evaluation. Patient is being admitted for: Squamous cell carcinoma of neck SYSTEM BASED PLAN: CRITICAL CARE SYSTEM REVIEW & ASSESSMENT/PLAN: NEURO: # multimodal analgesia Oxycodone 5, 10 Dilaudid for breakthrough pain PULMONARY / RESPIRATORY: #Squamous cell carcinoma left neck status post excision Postop day 0 Repeat CBC, CMP Monitor for hematoma excision decide Call ENT for any questions Hold Eliquis for now Continue Ancef per ENT Per ENT No flap checks required Hold AC, can start DVT ppx POD #1 LETY drains to bulb suction No ties or pressure around neck No ice to neck Bacitracin to left neck BID Reinforce tegaderm dressing on left leg for saturation PRN # COPD gold E Plan SALES APPRENTICE and RO SALES APPRENTICE albuterol inhaler twice daily CARDIAC / VASCULAR: # paroxysmal atrial fibrillation SALES APPRENTICE metoprolol succinate 25 daily Hold SALES APPRENTICE Eliquis 2 ENT clears #Dyslipidemia PT atorvastatin 20 mg HF P EF P.r.n. Lasix GI / HEPATOBILIARY: # regular diet Senna Colace for bowel regimen SALES APPRENTICE omeprazole RENAL / METABOLIC / FLUIDS: # CKD stage 4 Continues to make urine Plan Continue calcitriol 0.25 Continue sodium bicarb 650 Continue IVF for12 hours at 100 mL an hour INFECTIOUS DISEASES: # continue Ancef by ENT ENDOCRINE: # hypothyroidism Continue SALES APPRENTICE levothyroxine 50 mcg #Gout Continue allopurinol 200 mg [facility] BGL goals of 140-180 mg/dl HEMATOLOGIC: #DVT PPX: SCDs, heparin in the AM MUSCULOSLETAL / DERM: #PT/OT DEVICES: Urethral Catheter Coude (Active) Number of days: 0 Peripheral Line Left;Lower;Posterior Arm 18 Gauge (Active) Number of days: 0 GLOBAL ISSUES: DVT Prophylaxis: chemoprophylaxis with pneumatic compression devices Stress Ulcer Prophylaxis: PPI therapy for other indication Glycemic Control: controlled - not in protocol Central Line Necessity Reviewed: N/A Vitale: reviewed and needed Disposition: keep in ICU Patient's decisional capacity: has capacity to make decisions Communication with Patient/Family: Brief Family Communication. Date and time of meetin08/10/24 Goals of Care: stabilize hemodynamic status Care plan discussed with attending physician Dr. Bre Pastrana, DO Holger Bhatt MD [facility] Fellow 08/10/2024 4:35 PM Please excuse any unintentional grammatical and syntactical errors as voice dictation was used to create this note. This should not deter from the intended meaning and clinical context. Please reach out should any clarification be needed. Thank you. Associated attestation - Bre Pastrana DO - 08/10/2024 10:51 PM EDT I have seen and examined the patient on arrival to the ICU following the OR. I have reviewed the history, physical, chart, labs, x-rays, ct scans and pertinent data. The case was discussed with Dr. Bhatt, the Physician Assistants, and the Fountain Roller Assembler. I agree with the above and the plan is as follows: Patient is a 78 yo male admitted 08/10 post op. He was taken to the OR today with ENT for a left neck composite resection left sternocleidomastoid muscle and a left neck dissection for SCC left neck. He was transferred to the ICU post -op for monitoring. PMHx: atrial fibrillation on Eliquis, CKD stage 4, previously on dialysis, chronic anemia, heart failure with preserved ejection fraction, erythema nodosum, COPD, squamous cell carcinoma of left neck, AAA, Acute pancreatitis, LIZZ, Aspergillosis, ATN, B/L Pneumonia, retinal vein occlusion right eye,CAP, COPD, DM, Enteritis, Erythema nodosum, Esophageal reflux, Heart failure, Herpes Zoster, Hypertensive heart disease, Protein calorie malnutrition, Hypercholesterolemia, Sepsis,Stage II pressure ulcer left buttock, Tinea cruris, HTN, Uveitis Procedures / Operations: 08/10 OR ENT: Left neck composite resection including skin, underlying subcutaneous tissue and portion of left SCM muscle, left neck dissection (levels II-V), Left pectoralis major myocutaneous pedicled flap - adjacent tissue transfer (6 x 15 cm medial chest wall, 8 x 15 cm lateral chest wall), split thickness skin graft (10 cm x 10 cm) EBL: 100 ml, Fluids 1500 ml, Dexamethasone 8 mg Diagnoses: Squamous cell carcinoma left neck COPD gold E Paroxysmal A-rib DLD HFpEF CKD IV Hypothyroidism Gout Neuro: Patient remains on supplemental oxygen. He is somnolent but arousable post-op on arrival to the ICU. Pain control with Tylenol as well as OxyIR prn and Dilaudid for breakthrough as needed. Consult PT/OT for evaluation as well as increased activity and mobilization. CV: Hemodynamically labile. IV fluids NS at 100 ml/hr. Urine Outputs adequate. Vitale Catheter for accurate monitoring post-op. Recheck and replete electrolytes accordingly. TEDs/SCDs for DVT prophylaxis. Holding chemical prophylaxis post- op. Check labs and address accordingly. Resume Lipitor, Levoxyl and NaBicarb tabs. Resp: Needs aggressive pulmonary toilet and chest physiotherapy. Remains on supplemental oxygen as needed. Wean as tolerated. Incentive Spirometer/Flutter hourly as able. GI: Colace and Senna for bowel regimen as needed . Pepcid if needed for GI Prophylaxis. Follow bowel activity. Hold on enteral feeds pending operative intervention. ID: Culture prn and treat clinically. Ancef Kindra-Op antibiotics - ordered through 08/15 per ENT. Patient's decisional capacity: does not have capacity to make decisions Communication with Patient/Family: No meeting held. Goals of Care: improve respiratory status, wean respiratory parameters, stabilize hemodynamic status, improve mental status to baseline, and decrease pain and discomfort Bre Pastrana DO, FACOS Rounding Trauma/Surgical Critical Care Attending Total Critical Care Time: 40 mins I saw and evaluated the patient today. I have reviewed the resident/fellow physician note and agree. I have provided critical care diagnostic services for circulatory failure, neurologic failure, respiratory failure and therapeutic services with volume resuscitation, frequent vasoactive agent adjustments, frequent ventilator adjustments, neurological monitoring and treatment, treatment of complex m etabolic, frequent evaluation and titration of therapies for this patient on the date referenced above. Time devoted to patient care services described in this note equal: 40 minutes total critical care time exclusive of time spent performing procedures or time spent by another provider or resident. * Yifan Perez MD - 08/10/2024 6:31 AM EDT History & Physical - Otol[place] [facility] [place] [id number] Name: Kennedy Davis [place] [facility] [place]: 08/10/2024 Time: 6:31 AM CC: Cutaneous SCCa of left neck HPI: The patient presents today for scheduled surgery. He denies any changes to health since last clinic visit. Denies recent illness. Denies use of aspirin, NSAIDs, or other anticoagulants. Medications: Current Outpatient Medications Medication Instructions Albuterol Sulfate (PROVENTIL) 2.5 mg, Nebulizer, Q4H PRN Albuterol Sulfate 108 (90 Base) MCG/ACT Inhalation Aerosol Powder Breath Activated 2 Puffs, Inhalation, Q4H PRN Allopurinol (ZYLOPRIM) 200 mg, Oral, Daily(AM) Apixaban (ELIQUIS) 5 mg, Oral, BID (.AM/PM) atorvaSTATin (LIPITOR) 20 mg, Oral, HS Calcitriol (ROCALTROL) 0.25 mcg, Oral, Daily(AM) Doxycycline Monohydrate 100 mg, Oral, BID (.AM/PM) Econazole Nitrate 1 % External Cream (Spectazole) Apply to affected area on buttock, back and legs twice a day for 6 weeks Furosemide (LASIX) 20 mg, Oral, DAILY PRN Levothyroxine Sodium 50 MCG Oral Tablet (Levoxyl) (at least 30 min prior to breakfast or other meds)take 1 tablet by mouth once daily AT LEAST 30 MINUTES PRIOR TO BREAKFAST OR OTHER MEDS metoprolol succinate XL (TOPROL XL) 25 mg, Oral, Daily(AM) omeprazole (PRILOSEC) 20 mg, Oral, Daily(AM), 30 minutes before a meal predniSONE (DELTASONE) 40 mg, Oral, Daily(AM) predniSONE (DELTASONE) 40 mg, Oral, Daily(AM) predniSONE (DELTASONE) 40 mg, Oral, Daily(AM) predniSONE (DELTASONE) 7.5 mg, Oral, Daily(AM) sodium bicarbonate 650 mg, Oral, BID (.AM/PM) Testosterone Cypionate 100 MG/ML Intramuscular Solution inject 0.75 milliliter intramuscularly every 7 days Tylenol 325 MG Oral Capsule (Acetaminophen) 2 Tablets, Oral, Q6H PRN Umeclidinium-Vilanterol 62.5-25 MCG/ACT Inhalation Aerosol Powder Breath Activated (ANORO ellipta) 1 Puff, Inhalation, Daily(AM) Vitamin B 12 500 MCG Oral Tablet 1 Tablet, Daily(AM) Medical History: Patient Active Problem List Diagnosis Gastroesophageal reflux disease without esophagitis HTN, goal below 140/90 Dyslipidemia, goal LDL below 70 Erythema nodosum Acquired hypothyroidism Mediastinal lymphadenopathy Spinal stenosis of lumbar region with neurogenic claudication half-way (current) use 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 Steroid-induced diabetes (HCC) IPMN (intraductal papillary mucinous neoplasm) 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[facility]) History of acute tubular necrosis Paroxysmal atrial fibrillation (HCC) Senile osteoporosis Vitamin D deficiency Chronic anticoagulation CKD (chronic kidney disease) stage 4, GFR 15-29 ml/min (HCC) Atherosclerotic heart disease of [place] coronary artery without angina pectoris Atherosclerosis of abdominal aorta ([facility]) Telangiectasias 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) Atherosclerosis of renal artery (HCC) Chronic intestinal vascular insufficiency (HCC) History of sepsis Heart failure (HCC) Cat bite Current chronic use 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 Chronic heart failure with preserved ejection fraction (HFpEF) ([facility]) Iron deficiency anemia Hypocalcemia 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) 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) COPD, group B, by GOLD 2017 classification ([facility]) Chronic gout due to renal impairment of multiple sites without tophus Past Medical History: Diagnosis Date Abdominal aortic aneurysm (AAA) without rupture ([facility]) 07/11/2015 09/01/16: 3.78cm - repeat 1 yr 01/27/16: US: 3.87cm AAA - repeat 6 months 07/11/15: sts he had an US in the past - will check records Acute pancreatitis 03/09/2018 LIZZ (acute kidney injury) ([facility]) 06/26/2018 Aspergillosis ([facility]) 07/17/2019 history of Aspergillosis on the note on 3.[address] and AMP ATN (acute tubular necrosis) ([facility]) Bilateral pneumonia 08/08/2019 Acute, resolved? 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 Community acquired pneumonia 05/30/2019 COPD (chronic obstructive pulmonary disease) ([facility]) Diet-controlled diabetes mellitus ([facility]) 03/03/2021 Encounter for long-term (current) use of medications 09/06/2018 Enteritis 10/09/2017 Erythema nodosum Esophageal reflux Heart failure with acute decompensation, type unknown ([facility]) 06/07/2019 Herpes zoster without mention of complication History of pneumonia 06/22/2018 B/l PNA 06/2018 Hyperkalemia 12/16/2021 Hypertensive heart disease with heart failure and stage 5 chronic kidney disease, not on chronic dialysis (HCC) 08/22/2019 ckd 4 ? Hypoglycemia associated with type 2 diabetes mellitus (HCC) 07/21/2019 Moderate protein-calorie malnutrition (HCC) 01/06/2021 Protein-calorie malnutrition (HCC) 06/23/2019 Pure hypercholesterolemia Sepsis (HCC) acute Severe malnutrition (HCC) 02/27/2018 Stage II pressure ulcer of left buttock (HCC) 02/06/2022 Tinea cruris 09/28/2017 Unspecified essential hypertension Uveitis OS Past Surgical History: Procedure Laterality Date ANESTH, LUMBAR SPINE/CORD SURGERY 2017 L2-L5 BRONCHOSCOPY, DX W/ EBUS, 1-2 NODES N/A 12/09/2017 BRONCHOSCOPY, RIGID OR FLEXIBLE, INCLUDING FLUOROSCOPIC GUIDANCE, WHEN PERFORMED; WITH EBUS GUIDED TRANSTRACHEAL AND/OR TRANSBRONCHIAL SAMPLING (EG, ASPIRATION[S]/BIOPSY[IES]), 1 OR 2 MEDIASTINAL AND/OR HILAR LYMPH NODE STATIONS OR STRUCTURES performed by Dominguez Aguilar MD at OR [facility] COLONOSCOPY, DIAGNOSTIC (RECTUM) 09/04/2015 Internal hemorrhoids, 5 yr recall COLONOSCOPY FLEXIBLE PROXIMAL DIAGNOSTIC performed by Yudelka Hopkins DO at [facility] COLONOSCOPY, DIAGNOSTIC (RECTUM) 01/05/2018 diverticulosis sigmoid colon/internal hemorrhoids/recall 5 years/COLONOSCOPY FLEXIBLE PROXIMAL DIAGNOSTIC performed by Farrukh Gilliam MD at [facility] EGD, FLEXIBLE, DIAGNOSTIC N/A 01/05/2018 hiatal hernia/normal/ESOPHAGOGASTRODUODENOSCOPY (EGD), FLEXIBLE, TRANSORAL, DIAGNOSTIC performed byFarrukh Gilliam MD at [facility] INSER CHU CAT,W/O PUMP;5YR/OLD N/A 06/16/2019 INSERT TUNNELED CENTRAL VENOUS CATHETER AGE 5 OR OLDER performed by Vickey Woodruff MD at OR [facility] INSERTION OF LENS PROSTHESIS Left 05/02/2020 IR VENOUS ACCESS NON-MEDIPORT 10/24/2019 OTHER (INFORMATION) Removal of basal cell carcimoma from the back. REPAIR INITIAL INGUINAL HERNIA REDUCIBLE AGE 5 OR MORE Left 2009 REPAIR INITIAL INGUINAL HERNIA REDUCIBLE AGE 5 OR MORE Right 02/07/2019 REPAIR INITIAL INGUINAL HERNIA REDUCIBLE AGE 5 OR MORE performed by Jonathan Correia DO at OR [facility] Review of patient's allergies indicates: Allergen Reactions Chlorhexidine Hives and Rash Full body red rash; "skin peeled completely off" Iodinated Contrast Media Abdominal pain Acute kidney failure Azactam [Aztreonam] Hives Ciprofloxacin Diarrhea Cephalosporins Rash Levofloxacin Rash Social History Tobacco Use Smoking status: Former Current packs/day: 0.00 Average packs/day: 1 pack/day for 1 year (1.0 ttl pk-yrs) Types: Cigarettes Start date: 1964 Quit date: 1965 Years since quittin.7 Smokeless tobacco: Never Tobacco comments: quit smoking in the 1959 Substance Use Topics Alcohol use: Yes Comment: occasional Vaping/E-Cigarette Use Vaping/E-Cigarette Use Never User Vaping/E-Cigarette Substances Nicotine No Other No Flavoring No THC No Cannabidiol (CBD) No Vaping/E-Cigarette Devices Disposable No Pre-filled or Refillable Cartridge No Refillable Tank No Pre-filled Pod No Family History Problem Relation Name Age of Onset No Past Hx Mother at 97 Heart attack Father 84 Other (unknown cause of ) Sister Linda 90 Osteoporosis Sister Emmanuelle Renal Hx Sister Emmanuelle Osteoporosis Sister Vicky Renal Hx Sister [place] Heart Disorder Brother Martin CAD started in his late 70's Diabetes Brother Martin Heart attack Brother Martin Diabetes Brother Fern Other (PVD) Brother Kelly Perpal vasc dz Gastro-intestinal disorder Brother Homero at 85 from liver cirrhosis - non-ETOH Cancer Brother Marbury in his late 70's from throat cancer Other (Other) Brother Michi at a couple of months from pneumonia Other (unknown cause of ) Brother Morales Review of Systems: Negative unless otherwise indicated in HPI. Physical Exam: Vital Signs: BP: 176 mmHg/85 mmHg (08/10/24599) Pulse: 76 (08/10/24599) Resp: 18 (08/10/24599) Temp: 36.78 C (08/10/24599) Temp Summary: Temp Min: 36.8 C (98.2 F) Max: 36.8 C (98.2 F) SpO2: 96 % (08/10/24599) O2 flow rate: Supplemental O2 Delivery: Room Air, None (08/10/24599) No acute distress Regular rate and rhythm without murmur Lungs clear to auscultation bilaterally Left neck defect Impression: Kennedy Davis is a 78 year old male who presents with the above diagnosis for scheduledsurgery. Plan: NPO SCDs Antibiotic prophylaxis with Ancef Proceed with left neck wide local excision, bilateral neck dissections, and free flap vs pec flap reconstruction ICU postop Yifan Perez MD Otolaryngology - Head & Neck Surgery Resident documented in this encounter Consult Notes * Arina Crespo, PT - 08/18/2024 9:06 AM EDTAssociated Order(s): ADULT PHYSICAL THERAPY CONSULT IP Kennedy Davis [id number] [facility] 08/18/2024 78 year old Patient currently on PT treatment roster. Please see ancillary section for updates. * John Rinaldi RN - 08/16/2024 12:41 PM EDTAssociated Order(s): BLOOD MANAGEMENT CONSULT IP CONSULT - Patient Blood Management [address] [address] Name: Kennedy Davis [place] [facility] Date: 08/16/2024 Time: 12:41 PM REQUESTING SERVICE: [facility] [place] REASON FOR CONSULT: new evaluation inpatient, ABLA Recent hemorrhage: no History of prior anemia: yes Recent surgery: yes Anemia Evaluation: Component Latest Ref Rng 07/28/2024 08/16/2024 WBC 4.00 - 10.80 K/uL 8.93 11.26 (H) RBC 4.50 - 5.25 M/uL 3.43 2.17 HGB 14.0 - 16.8 g/dL 11.1 (L) 7.1 (L) HCT 40.0 - 48.4 % 36.4 (L) 21.4 (L) MCV 82.0 - 99.5 fL 106.1 98.6 MCH 27.0 - 34.0 pg 32.4 32.7 MCHC 32.0 - 36.0 g/dL 30.5 33.2 RDW 11.5 - 15.5 % 14.0 15.9 PLT 140 - 400 K/uL 112 (L) 115 (L) Legend: (L) Low (H) High Current Patient Medications: Medications that may impair hemostasis: heparin Medications that may impair iron absorption: prilosec Patient Refused Blood Transfusion? (e.g. Alevism): no Possible Contributing Factors: acute blood loss Treatment Recommendations: If no active hemorrhage, consider PRBC transfusion only for severe anemia and use a 1 unit PRBC dose followed by a repeat clinical assessment. For reversal of anticoagulation therapy, use Reversal of Anticoagulation order set. Limit and coordinate blood draws to prevent iatrogenic anemia. Infed 1000mg IVPB once B12 1mg daily Folic acid 1mg daily vitamin daily x 2 months on D/C for ABLA Follow-up Recommendations: Follow up with PCP for further assessment/management of anemia post discharge. Spoke with Dr. Cameron in regards to current recommendations, agreeable to same. Thank you for allowing Blood Management to participate in the care of this patient. * Myles Fry MD - 08/16/2024 10:18 AM EDTAssociated Order(s): General Internal Medicine Consult IP Images from the original note were not included. [facility] B531/A General Internal Medicine Consult IP Consult performed by: Myles Fry MD Consult ordered by: Vannessa Cameron MD REASON FOR CONSULT: medical optimization, follow along for assistance REQUESTOR OF CONSULT: ENT HPI: Kennedy Davis is a 78 year old male with PMH significant for HTN, hyperlipidemia, COPD, CKD 4,hypothyroidism, gout, GERD, left neck cutaneous SCC, SP wide local excision, left neck dissection and reconstruction with left pectoralis major flap and split-thickness skin graft on 08/10/2024, returned to the OR on 08/13 for chest wall hematoma evacuation and required blood products for acute blood loss anemia. He was transferred to the ICU postop and back to ENT service on 08/16. Medicine was consulted for medical optimization and follow along for assistance. Subjective Patient's past history, medications, and allergies were reviewed. Objective Physical Exam Most Recent Vital Signs: BP: 99 mmHg/35 mmHg (08/16/24 105) Pulse: 85 (08/16/24 105) Resp: 24 (08/16/241050) Temp: 36.61 C (08/16/241050) Temp Summary: Temp Min: 36.1 C (97 F) Max: 37.1 C (98.8 F) SpO2: 98 % (08/16/241050) O2 flow rate: 1 L/MIN (08/16/24 0740) Supplemental O2 Delivery: Nasal Cannula (08/16/241050) Constitutional: no acute distress, (+) chronically ill HEENT: normal: normocephalic, atraumatic; no masses, tenderness, or adenopathy Eyes: PERRLA Neck: (+) left neck dry dressing CV: Mildly tachycardic, irregular heart rate, Chest: normal respiratory effort, (+) bilateral basal crackles Abdomen: normal: soft, bowel sounds normal, no masses, tenderness or organomegaly Extremities: (+) bilateral upper extremities edema and bilateral lower extremity edema 2+ Skin: warm, dry, pale: Neuro: alert, oriented to person, place, and time, cranial nerves intact, sensory normal Peripheral Line Right;Lower;Median;Anterior Arm 22 Gauge (Active) Number of days: 5 Peripheral Line Right;Upper Arm 20 Gauge (Active) Number of days: 4 Drain Melvin Sherwood Left Neck (Active) Number of days: 6 Drain Melvin Sherwood Left;Upper Chest (Active) Number of days: 3 Drain Melvin Sherwood Left;Lower Chest (Active) Number of days: 3 STUDIES: Encounter Orders Labs and other studes reviewed with pertinent findings noted below: WBC 8 K, HGB 6.5 from 7.0, platelets 107 Na 135, K 4.1, creatinine 3.3 Normal anion gap Normal Mg and phos Assessment and Plan IMPRESSION: 78 year old male with PMH significant for HTN, DLD, COPD, CKD 4, hypothyroidism, gout, GERD, left neck cutaneous SCC, SP wide local excision, left neck dissection and reconstruction with left pectoralis major flap and skin graft on 08/10/2024, returned to the OR on 08/13 for chest wall hematoma evacuation and required blood products for acute blood loss anemia. He was transferred to the ICU postop and back to ENT service on 08/16. Medicine was consulted for medical optimization and follow along for assistance. Active Problems: Essential hypertension Gastroesophageal reflux disease without esophagitis Dyslipidemia, goal LDL below 70 Paroxysmal atrial fibrillation (HCC) Chronic anticoagulation CKD (chronic kidney disease) stage 4, GFR 15-29 ml/min (HCC) COPD, moderate (HCC) SCC (squamous cell carcinoma) Post-operative state Postoperative anemia due to acute blood loss Resolved Problems: * No resolved hospital problems. * RECOMMENDATIONS: Left neck SCC Acute blood loss anemia SP wide local excision, left neck dissection and reconstruction Hospital course complicated by chest wall hematoma HGB noted 6.5 this morning Check daily HGB and transfuse if < 7.0 HTN, dyslipidemia, paroxysmal AFib, CKD 4 Patient is fluid overload, afebrile with soft blood pressure today Hold SALES APPRENTICE oral Lasix 20 mg today due to soft blood pressure and acute on CKD 4 but consider resumingwithin 1 or 2 days Check daily BMP and correct electrolytes as needed Continue SALES APPRENTICE metoprolol XL 25 mg daily Continue SALES APPRENTICE atorvastatin 20 mg daily Resume SALES APPRENTICE apixaban when considered surgically safe with stable HGB Other chronic medical conditions (stable): CKD 4, COPD, hypothyroidism, gout, GERD Continue SALES APPRENTICE bicarb tabs 650 mg twice daily Continue SALES APPRENTICE albuterol and Anoro Ellipta Continue SALES APPRENTICE calcitriol 0.25 mg daily Continue SALES APPRENTICE allopurinol 200 mg daily Continue SALES APPRENTICE levothyroxine 50 mcg daily Continue SALES APPRENTICE omeprazole 20 mg daily Thank you for the consult I will follow along with ENT service. Left neck SCC, status post resection and reconstruction complicated with chest wall hematoma and acute blood loss anemia - Severe SCC of the neck, acute blood loss anemia will result in a threat to life or bodily function if not treated * Víctor Fitzgerald RN - 08/16/2024 9:10 AM EDTAssociated Order(s): WOUND/OSTOMY CONSULT IP Images from the original note were not included. 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 On citadel low air loss bed. Bilateral heels intact. Rolls on side with assistance. Mid back with 5cm x 4cm painful, raised area with dark purple/black center with surrounding erythema. No drainage.Traumatic injury vs injury, nonhospital acquired related to using a back brace at home. Per US 10/2 possible hematoma midline lower back. Declines an allevyn foam dressing, feels it makes it more painful Mid back * Susan Kowalski, JOHN - 08/14/2024 11:05 AM EDTAssociated Order(s): ADULT SPEECH THERAPY CONSULT IP (ACUTE CARE REHAB) CLINICAL BEDSIDE SWALLOW EVALUATION - Speech-Language Pathology [facility] [address] Name: Kennedy Davis [place]: [facility] A[facility]/A Date: 08/14/2024 Time: 11:05 AM Patient Status: Inpatient Insurance: Payor: [facility] [employer] / Plan: BIXI CLASSIC 1 PART D - / Product Type: *No Product type* / GENERAL INFORMATION: Admission Date: 08/10/2024 Referring Physician: Elma Farley CRNP Pertinent Medical History: Per [facility] chart review 08/13/24 "Patient is a 78 yo male admitted to [facility] post op. He was taken to the OR 08/10 with ENT for a LEFT neck composite resection left sternocleidomastoid muscle and a left neck dissection for SCC left neck with pectoralis flap reconstruction. He was transferred to the ICU post -op for monitoring. Active Problems: SCC (squamous cell carcinoma) (POA: Unknown) Post-operative state (POA: Unknown) Postoperative anemia due to acute blood loss (POA: Unknown) Resolved Problems: * No resolved hospital problems. * INTERIM HISTORY (LAST 24 HOURS): NAEO. Af. HDS. Regular rate. Oxygenating well on RA. This morning received report from nurse for neck swelling. On evaluation of patient anterior chest wall is swollen, tense, and TTP. ENT notified of concern for hematoma. Repeat cbc, type and screen ordered. Patient made NPO. PO 480 IV 49 ml UO 2.2 L Chest drain 130, chest drain 47, neck drain 10" Past Medical History: Diagnosis Date Abdominal aortic aneurysm (AAA) without rupture ([facility]) 07/11/2015 09/01/16: 3.78cm - repeat 1 yr 01/27/16: US: 3.87cm AAA - repeat 6 months 07/11/15: sts he had an US in the past - will check records Acute pancreatitis 03/09/2018 LIZZ (acute kidney injury) ([facility]) 06/26/2018 Aspergillosis ([facility]) 07/17/2019 history of Aspergillosis on the note on 3.[address] and AMP ATN (acute tubular necrosis) ([facility]) Bilateral pneumonia 08/08/2019 Acute, resolved? 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 Community acquired pneumonia 05/30/2019 COPD (chronic obstructive pulmonary disease) ([facility]) Diet-controlled diabetes mellitus ([facility]) 03/03/2021 Encounter for long-term (current) use of medications 09/06/2018 Enteritis 10/09/2017 Erythema nodosum Esophageal reflux Heart failure with acute decompensation, type unknown ([facility]) 06/07/2019 Herpes zoster without mention of complication History of pneumonia 06/22/2018 B/l PNA 06/2018 Hyperkalemia 12/16/2021 Hypertensive heart disease with heart failure and stage 5 chronic kidney disease, not on chronic dialysis (HCC) 08/22/2019 ckd 4 ? Hypoglycemia associated with type 2 diabetes mellitus (HCC) 07/21/2019 Moderate protein-calorie malnutrition (HCC) 01/06/2021 Protein-calorie malnutrition (HCC) 06/23/2019 Pure hypercholesterolemia Sepsis (HCC) acute Severe malnutrition (HCC) 02/27/2018 Stage II pressure ulcer of left buttock (HCC) 02/06/2022 Tinea cruris 09/28/2017 Unspecified essential hypertension Uveitis OS Past Surgical History: Procedure Laterality Date ADJACENT TISSUE TRANS >10SQCM TRUNK Left 08/10/2024 ADJACENT TISSUE TRANSFER TRUNK 10.1 TO 30SQ CM performed by Sin Tovar DO at [facility] ANESTH, LUMBAR SPINE/CORD SURGERY 2017 L2-L5 BIOPSY OF NECK/CHEST N/A 08/10/2024 EXCISION SOFT TISSUE NECK THORAX performed by Lexie Aldridge MD [place] [facility] BRONCHOSCOPY, DX W/ EBUS, 1-2 NODES N/A 12/09/2017 BRONCHOSCOPY, RIGID OR FLEXIBLE, INCLUDING FLUOROSCOPIC GUIDANCE, WHEN PERFORMED; WITH EBUS GUIDED TRANSTRACHEAL AND/OR TRANSBRONCHIAL SAMPLING (EG, ASPIRATION[S]/BIOPSY[IES]), 1 OR 2 MEDIASTINAL AND/OR HILAR LYMPH NODE STATIONS OR STRUCTURES performed by Dominguez Aguilar MD at OR [facility] COLONOSCOPY, DIAGNOSTIC (RECTUM) 09/04/2015 Internal hemorrhoids, 5 yr recall COLONOSCOPY FLEXIBLE PROXIMAL DIAGNOSTIC performed by Yudelka Hopkins DO at [facility] COLONOSCOPY, DIAGNOSTIC (RECTUM) 01/05/2018 diverticulosis sigmoid colon/internal hemorrhoids/recall 5 years/COLONOSCOPY FLEXIBLE PROXIMAL DIAGNOSTIC performed by Farrukh Gilliam MD at [facility] EGD, FLEXIBLE, DIAGNOSTIC N/A 01/05/2018 hiatal hernia/normal/ESOPHAGOGASTRODUODENOSCOPY (EGD), FLEXIBLE, TRANSORAL, DIAGNOSTIC performed byFarrukh Gilliam MD at [facility] INSER CHU CAT,W/O PUMP;5YR/OLD N/A 06/16/2019 INSERT TUNNELED CENTRAL VENOUS CATHETER AGE 5 OR OLDER performed by Vickey Woodruff MD at OR [facility] INSERTION OF LENS PROSTHESIS Left 05/02/2020 IR VENOUS ACCESS NON-MEDIPORT 10/24/2019 MUSCLE, MYOCUTANEOUS, OR FASCIOCUT FLAP; HEAD AND NECK W/PEDICLE 08/10/2024 MUSCLE, MYOCUTANEOUS, OR FASCIOCUTANEOUS FLAP PRESERVATION VASCULAR PEDICLE performed by Sin Tovar DO at [place] [facility] OTHER (INFORMATION) Removal of basal cell carcimoma from the back. REMOVAL OF NECK LYMPH NODES N/A 08/10/2024 CERVICAL LYMPHADENECTOMY COMPLETE performed by Lexie Aldridge MD at [place] [facility] REPAIR INITIAL INGUINAL HERNIA REDUCIBLE AGE 5 OR MORE Left 2009 REPAIR INITIAL INGUINAL HERNIA REDUCIBLE AGE 5 OR MORE Right 02/07/2019 REPAIR INITIAL INGUINAL HERNIA REDUCIBLE AGE 5 OR MORE performed by Jonathan Correia DO at OR [facility] SKIN SPLIT GRAFT, FACE/NECK/EARS 08/10/2024 SPLIT GRAFT FACE SCALP ETC LESS THAN 100SQ CM performed by Sin Tovar DO at [place] [facility] WND REPR,LAYERD,NECK/DIGITS/GENIT,12.6-20CM Left 08/10/2024 LAYER CLOSURE WOUND NECK HAND FEET GENITALS 12.6 TO 20CM performed by Sin Tovar DO at [place] [facility] Current Diet/Dysphagia History: Pt currently NPO. Pt endorsing dysphagia with pills, stating he feels them "stuck in the throat." Pt's endorses similar symptoms prior to hospitalization, requiring her to cut some of his pills in half. Pt stating that he tolerates regular solids and thin liquids at baseline. Pt denies odynophagia. Cognitive-Communication: Pt remained awake and alert. Pt followed commands and effectively communicated wants/needs. Barriers to Learning: Medical Status Hearing Acuity: Deferred Best Learning Method: Auditory Pain: No complaints of pain ORAL MECHANISM EXAM: Facial Symmetry WFL Labial Function WFL Lingual Function WFL Velar Function WFL Dentition: Upper dentures, Natural lower PROTECTIVE MECHANISMS: Volitional Swallow Did not test Volitional Throat Clearing Did not test Volitional Cough Did not test Vocal Quality Within normal limits Tracheostomy Tube: Not Present Ventilator Status: Not Applicable SWALLOWING FUNCTION: Pt pt was presented with trials of thin liquid via cup and straw, puree solids, soft and bite sized solids, and regular solids. ORAL PREPARATION PHASE: Puree (IDDSI Level 4): WFL Soft and Bite-Sized (IDDSI Level 6): WFL Regular (IDDSI Level 7): WFL Thin Liquid (IDDSI Level 0): WFL ORAL PHASE: Puree (IDDSI Level 4): WFL Soft and Bite-Sized (IDDSI Level 6): WFL Regular (IDDSI Level 7): WFL Thin Liquid (IDDSI Level 0): WFL PHARYNGEAL PHASE Puree (IDDSI Level 4): WFL Soft and Bite-Sized (IDDSI Level 6): WFL Regular (IDDSI Level 7): WFL Thin Liquid (IDDSI Level 0): WFL RECOMMENDATIONS/PLAN: Videofluoroscopy: Not indicated Diet Level: Regular Liquid Level: Thin Presentation of Medication: As tolerated in puree Positioning: Seated with 90 degree hip flexion Level of Supervision: None Use of Straws: allowed Compensatory Techniques to be Utilized During PO Intake: Small Bites/Sips, Alternate Solids & Liquids and Slow Rate of Intake Compensatory Strategies Utilized: as above Additional findings: N/A ANTICIPATED FREQUENCY (ON EVAL): Not indicated DIAGNOSIS/IMPRESSIONS: Diagnosis/Impressions: Oral phase WFL. Pharyngeal phase dysphagia not suspected 2/2 absence of overt s/sx of aspiration and/or distress. Pt endorsed globus sensation prior to PO trials, stating he feels a pill stuck in his throat. Globus sensation reduces following puree trial. Pt denies globus sensation following completion of PO trials. Rehab Potential: N/A TREATMENT PLAN: Swallowing Treatment: Not Indicated Treatment Goals: N/A Additional Recommendations: If s/sx of aspiration and/or distress are appreciated, please downgradeas nsg safety measure, and re-consult [employer] services. The above information was discussed with the patient/family. Yes The patient/family was in Agreement * Hannah Tatum RN - 08/11/2024 3:14 PM EDTAssociated Order(s): CARE MANAGEMENT CONSULT IP Chart reviewed. CM met with pt and family at bedside to discuss discharge planning and complete initial assessment. Care Management needs are undetermined at this time. Care Management will continue to follow. * Kylee Singleton DPT - 08/11/2024 2:36 PM EDTAssociated Order(s): ADULT PHYSICAL THERAPY CONSULT IP GENERAL EVALUATION - Physical Therapy [address] [address] Name: Kennedy Davis Location: [address] Date: 08/11/2024 Time: 1435 Kennedy Davis is a/an 78 year old male. Patient Status: Inpatient Insurance: Payor: [employer] Plan: [employer] CLASSIC 1 PART D MC-LD Product Type: *No Product type* Payor: [facility] Plan: [facility] Product Type: *No Product type* Patient Seen: at bedside, nursing cleared patient for therapy Patient Identified By: Name, ID Band and Date Diagnosis: left neck cutaneous SCCa s/p wide local excision, left neck dissection, and reconstruction with left pectoralis major flap and split thickness skin graft on 08/10/24 (08/11/241435) Status of treatment: Evaluation completed (08/11/241435) Orders: PT evaluation and treatment (08/11/241435) Weight Bearing Status: Weight bearing as tolerated (08/11/241435) Precautions: Alarms;A-line;Falls;Vitale;Safety (drain) (08/11/241435) Total Treatment Time--free text: 26 (08/11/241435) Past Medical History: Past Medical History: Diagnosis Date Abdominal aortic aneurysm (AAA) without rupture (HCC) 07/11/2015 09/01/16: 3.78cm - repeat 1 yr 01/27/16: US: 3.87cm AAA - repeat 6 months 07/11/15: sts he had an US in the past - will check records Acute pancreatitis 03/09/2018 LIZZ (acute kidney injury) ([facility]) 06/26/2018 Aspergillosis ([facility]) 07/17/2019 history of Aspergillosis on the note on 3.[address] and AMP ATN (acute tubular necrosis) ([facility]) Bilateral pneumonia 08/08/2019 Acute, resolved? 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 Community acquired pneumonia 05/30/2019 COPD (chronic obstructive pulmonary disease) [facility] [facility]) Diet-controlled diabetes mellitus ([facility]) 03/03/2021 Encounter for long-term (current) use of medications 09/06/2018 Enteritis 10/09/2017 Erythema nodosum Esophageal reflux Heart failure with acute decompensation, type unknown ([facility]) 06/07/2019 Herpes zoster without mention of complication History of pneumonia 06/22/2018 B/l PNA 06/2018 Hyperkalemia 12/16/2021 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 Hypoglycemia associated with type 2 diabetes mellitus ([facility]) 07/21/2019 Moderate protein-calorie malnutrition ([facility]) 01/06/2021 Protein-calorie malnutrition ([facility]) 06/23/2019 Pure hypercholesterolemia Sepsis ([facility]) acute Severe malnutrition ([facility]) 02/27/2018 Stage II pressure ulcer of left buttock ([facility]) 02/06/2022 Tinea cruris 09/28/2017 Unspecified essential hypertension Uveitis OS Past Surgical History: Past Surgical History: Procedure Laterality Date ADJACENT TISSUE TRANS >10SQCM TRUNK Left 08/10/2024 ADJACENT TISSUE TRANSFER TRUNK 10.1 TO 30SQ CM performed by Sin Tovar DO [place] [facility] LUMBAR SPINE/CORD SURGERY 2017 L2-L5 BIOPSY OF NECK/CHEST N/A 08/10/2024 EXCISION SOFT TISSUE NECK THORAX performed by Lexie Aldridge MD [place] [facility] [place], DX W/ EBUS, 1-2 NODES N/A 12/09/2017 BRONCHOSCOPY, RIGID OR FLEXIBLE, INCLUDING FLUOROSCOPIC GUIDANCE, WHEN PERFORMED; WITH EBUS GUIDED TRANSTRACHEAL AND/OR TRANSBRONCHIAL SAMPLING (EG, ASPIRATION[S]/BIOPSY[IES]), 1 OR 2 MEDIASTINAL AND/OR HILAR LYMPH NODE STATIONS OR STRUCTURES performed by Dominguez Aguilar MD at OR [facility] COLONOSCOPY, DIAGNOSTIC (RECTUM) 09/04/2015 Internal hemorrhoids, 5 yr recall COLONOSCOPY FLEXIBLE PROXIMAL DIAGNOSTIC performed by Yudelka Hopkins DO at [facility] COLONOSCOPY, DIAGNOSTIC (RECTUM) 01/05/2018 diverticulosis sigmoid colon/internal hemorrhoids/recall 5 years/COLONOSCOPY FLEXIBLE PROXIMAL DIAGNOSTIC performed by Farrukh Gilliam MD at [facility] EGD, FLEXIBLE, DIAGNOSTIC N/A 01/05/2018 hiatal hernia/normal/ESOPHAGOGASTRODUODENOSCOPY (EGD), FLEXIBLE, TRANSORAL, DIAGNOSTIC performed byFarrukh Gilliam MD at [facility] INSER CHU CAT,W/O PUMP;5YR/OLD N/A 06/16/2019 INSERT TUNNELED CENTRAL VENOUS CATHETER AGE 5 OR OLDER performed by Vickey Woodruff MD at OR [facility] INSERTION OF LENS PROSTHESIS Left 05/02/2020 IR VENOUS ACCESS NON-MEDIPORT 10/24/2019 MUSCLE, MYOCUTANEOUS, OR FASCIOCUT FLAP; HEAD AND NECK W/PEDICLE 08/10/2024 MUSCLE, MYOCUTANEOUS, OR FASCIOCUTANEOUS FLAP PRESERVATION VASCULAR PEDICLE performed by Sin Tovar DO [place] [facility] OTHER ([place]FORMATION) Removal of basal cell carcimoma from the back. REMOVAL OF NECK LYMPH NODES N/A 08/10/2024 CERVICAL LYMPHADENECTOMY COMPLETE performed by Lexie Aldridge MD [place] [facility] REPAIR INITIAL INGUINAL HERNIA REDUCIBLE AGE 5 OR MORE Left 2009 REPAIR INITIAL INGUINAL HERNIA REDUCIBLE AGE 5 OR MORE Right 02/07/2019 REPAIR INITIAL INGUINAL HERNIA REDUCIBLE AGE 5 OR MORE performed by Jonathan Correia DO at OR [facility] SKIN SPLIT GRAFT, FACE/NECK/EARS 08/10/2024 SPLIT GRAFT FACE SCALP ETC LESS THAN 100SQ CM performed by Sin Tovar DO [place] [facility] [place] REPR,LAYERD,NECK/DIGITS/GENIT,12.6-20CM Left 08/10/2024 LAYER CLOSURE WOUND NECK HAND FEET GENITALS 12.6 TO 20CM performed by Sin Tovar DO [place] [facility] Subjective: Pt is agreeable to PT. Pt motivated Social History/Disposition Lives with: Spouse (08/11/241435) Assistance available: Yes (08/11/241435) Dwelling type: Single story home (08/11/241435) Entry steps: (3 or 1 small step) (08/11/241435) Inside steps: None (08/11/241435) Bedroom location: 1st floor (08/11/241435) Bath location: 1st floor full bath (08/11/241435) Prior Level of Function Reported by: Patient (08/11/241435) Ambulation: Ambulatory with device (08/11/241435) Ambulatory Device: Cane (08/11/241435) Devices at home: Rolling walker;Straight cane;Grab bars;Rollator (raised toilet seat) (08/11/241435) Observations Consciousness: Alert (08/11/241435) Orientation: Oriented times 4 (08/11/241435) Psychosocial: Patient can communicate basic needs;Patient can converse in a social setting (08/11/241435) Other Findings: Yes (08/11/241435) Findings: Light touch sensation (08/11/241435) Light Touch Sensation Results: Intact;RLE;LLE (08/11/241435) Sitting Posture: Rounded shoulders;Forward head;Kyphotic;Right lateral lean (08/11/241435) Standing Posture: Rounded shoulders;Forward head;Kyphotic (08/11/241435) Pain: Pt has complaints of back pain. 04/17 Range of Motion Range of Motion: WFL (08/11/241435) Strength Assessment Strength Assessment: Deficits noted (08/11/241435) WNL, except: LLE;RLE (4/5 BLE) (08/11/241435) P.T. Bed Mobility Supine-Sit: Minimal Assistance (x2) (08/11/241435) Transfers Sit-Stand: Minimal Assistance (08/11/241435) Stand-Sit: Minimal Assistance (08/11/241435) Ambulation Assist: Minimal Assistance (08/11/241435) Distance Ambulated (feet): 3 (08/11/241435) Assistive Device: Rolling walker (08/11/241435) Noted gait deviations: flexed posture (08/11/241435) Ambulatory safety: Patient verbalizes insight of current deficits;Patient demonstrates carryover ofinsight during functional tasks (08/11/241435) Balance Sit (Static): (fair- to poor+) (08/11/241435) Sit (Dynamic): (poor+) (08/11/241435) Stand (Static): (fair-) (08/11/241435) Stand (Dynamic): (poor+) (08/11/241435) Patient and or Family Goal(s): to get well and to return home Patient Education Review of Precautions: Safety;Fall (08/11/241435) Safety Awareness: Patient verbalizes insight of current deficits;Patient demonstrates carryover of insight during functional tasks;Patient can communicate basic needs (08/11/241435) Preferred learning method: Combination (08/11/241435) Barriers to learning: Medical Status (08/11/241435) Method of Education: Verbalized to patient (08/11/241435) Topic of Education: Safety with mobility, Goals/plan of care, Fall prevention, and role of PT Method of Education: Verbal discussion and explanation provided to patient: verbalized understanding and or agreement of this information Treatment Provided: Therapeutic Activities 8 minutes: bed mobility training transfer training Evaluation Moderate Complexity 18 minutes - [id number]: Patient was cooperative and pleasant during treatment session. Moderate complexity evaluation performed and 1-2 personal factors or comorbidities were identified that will impact plan of care, including cancer history and ICU status. Patient presents with limitations in strength, bed mobility, transfers, gait, elevations, balance, endurance, and safety, which will impact plan of care. These limitations will be addressed by the goals set for this patient. Alarm Status Patient positioned in: Chair (08/11/241435) With: Pressure pad alarm intact and functioning and call nunez in reach (08/11/241435) Following session patient seated OOB in chair with chair alarm activated and cord plugged into callbell system. Treatment Status: Treatment at bedside (08/11/241435) Goals: Demonstrate Bed Mobility with: sit to/from supine and rolling modified independent Demonstrate Transfers with: Sit to/from stand and Bed to/from chair modified independent Demonstrate Ambulation: assistive device: no device vs. 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 Prior to admission, patient lives with his and was independent with mobility with a cane. Patient currently requires minimal assist x2 for bed mobility due to pain, and minimal assist for transfers and to take a few steps to the recliner with a walker. Mobility this date limited by pain and fatigue. Patient's overall mobility is limited by decreased LE strength, decreased balance, decreased endurance, pain, and overall medical status. Patient would benefit from continued PTto maximize functional independence. Please consider post-acute care services which may include home health, correction, outpatient therapy or inpatient rehabilitation. The level of care will bedetermined in collaboration with patient, family/caregiver and care team members. Treatment Plan: Bed mobility training, Transfer training, Gait training, Elevation training, ROM toBLE to maintain joint mobility/integrity, Strengthening exercises: lower extremities, Balance activities, and Educate on safety with fall prevention Anticipated Frequency (on eval): (1-5x/week) (08/11/241435) Deficits requiring P.T. treatment needs: Safety;Mobility;Balance;Weakness;Endurance;Lower extremitystrength (08/11/24 143) Equipment needs: No device (08/11/24 143) AM-PAC Score With Stairs : 16 (08/11/241435) A portion of this AM-PAC assessment not scored based on functional assessment due to pain, fatigue;rather clinical decision making utilized based on current findings and/or prior level of function. Please refer to future AM-PAC calculations of functional ability as they become available. Kylee Tang, PT, DPT, NCS Physical Therapy [facility] * Teresita Parada OTR/Billy - 08/11/2024 2:10 PM EDTAssociated Order(s): ADULT OCCUPATIONAL THERAPY CONSULT IP General Evaluation - Occupational Therapy [address] [id number] Name: Kennedy Davis [place] [facility] [id number] Date: 08/11/2024 Time: 2:10 PM Kennedy Davis is a 78 year old male. Patient Status: Inpatient Insurance: Payor: [facility] [employer] Plan: [facility] GOLD CLASSIC 1 PART D [facility]-LD Product Type: *No Product type* Payor: [facility] Plan: [facility] Product Type: *No Product type* Patient Seen: at bedside, nursing cleared patient for therapy Patient Identified By: Name, ID Band and Date Diagnosis: neck cancer (08/11/241409) Status of treatment: Evaluation completed (08/11/241409) Orders: OT evaluation and treatment;OT OOB (08/11/241409) Weight Bearing Status: Weight bearing as tolerated (08/11/241409) Precautions: Alarms;Falls;Safety;A-line;Vitale (LETY drains) (08/11/241409) Total Treatment Time: 26 (08/11/241409) Past Medical History: Past Medical History: Diagnosis Date Abdominal aortic aneurysm (AAA) without rupture ([facility]) 07/11/2015 09/01/16: 3.78cm - repeat 1 yr 01/27/16: US: 3.87cm AAA - repeat 6 months 07/11/15: sts he had an US in the past - will check records Acute pancreatitis 03/09/2018 LIZZ (acute kidney injury) ([facility]) 06/26/2018 Aspergillosis ([facility]) 07/17/2019 history of Aspergillosis on the note on 3.[address] and AMP ATN (acute tubular necrosis) ([facility]) Bilateral pneumonia 08/08/2019 Acute, resolved? 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 Community acquired pneumonia 05/30/2019 COPD (chronic obstructive pulmonary disease) ([facility]) Diet-controlled diabetes mellitus ([facility]) 03/03/2021 Encounter for long-term (current) use of medications 09/06/2018 Enteritis 10/09/2017 Erythema nodosum Esophageal reflux Heart failure with acute decompensation, type unknown ([facility]) 06/07/2019 Herpes zoster without mention of complication History of pneumonia 06/22/2018 B/l PNA 06/2018 Hyperkalemia 12/16/2021 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 Hypoglycemia associated with type 2 diabetes mellitus ([facility]) 07/21/2019 Moderate protein-calorie malnutrition ([facility]) 01/06/2021 Protein-calorie malnutrition ([facility]) 06/23/2019 Pure hypercholesterolemia Sepsis ([facility]) acute Severe malnutrition ([facility]) 02/27/2018 Stage II pressure ulcer of left buttock ([facility]) 02/06/2022 Tinea cruris 09/28/2017 Unspecified essential hypertension Uveitis OS Past Surgical History: Past Surgical History: Procedure Laterality Date ADJACENT TISSUE TRANS >10SQCM TRUNK Left 08/10/2024 ADJACENT TISSUE TRANSFER TRUNK 10.1 TO 30SQ CM performed by Sin Tovar DO [place] [facility], LUMBAR SPINE/CORD SURGERY 2017 L2-L5 BIOPSY OF NECK/CHEST N/A 08/10/2024 EXCISION SOFT TISSUE NECK THORAX performed by Lexie Aldridge MD [place] [facility] [place], DX W/ EBUS, 1-2 NODES N/A 12/09/2017 BRONCHOSCOPY, RIGID OR FLEXIBLE, INCLUDING FLUOROSCOPIC GUIDANCE, WHEN PERFORMED; WITH EBUS GUIDED TRANSTRACHEAL AND/OR TRANSBRONCHIAL SAMPLING (EG, ASPIRATION[S]/BIOPSY[IES]), 1 OR 2 MEDIASTINAL AND/OR HILAR LYMPH NODE STATIONS OR STRUCTURES performed by Dominguez Aguilar MD at OR [facility] COLONOSCOPY, DIAGNOSTIC (RECTUM) 09/04/2015 Internal hemorrhoids, 5 yr recall COLONOSCOPY FLEXIBLE PROXIMAL DIAGNOSTIC performed by Yudelka Hopkins DO at [facility] COLONOSCOPY, DIAGNOSTIC (RECTUM) 01/05/2018 diverticulosis sigmoid colon/internal hemorrhoids/recall 5 years/COLONOSCOPY FLEXIBLE PROXIMAL DIAGNOSTIC performed by Farrukh Gilliam MD at [facility] EGD, FLEXIBLE, DIAGNOSTIC N/A 01/05/2018 hiatal hernia/normal/ESOPHAGOGASTRODUODENOSCOPY (EGD), FLEXIBLE, TRANSORAL, DIAGNOSTIC performed byFarrukh Gilliam MD at [facility] INSER CHU CAT,W/O PUMP;5YR/OLD N/A 06/16/2019 INSERT TUNNELED CENTRAL VENOUS CATHETER AGE 5 OR OLDER performed by Vickey Woodruff MD at OR [facility] INSERTION OF LENS PROSTHESIS Left 05/02/2020 IR VENOUS ACCESS NON-MEDIPORT 10/24/2019 MUSCLE, MYOCUTANEOUS, OR FASCIOCUT FLAP; HEAD AND NECK W/PEDICLE 08/10/2024 MUSCLE, MYOCUTANEOUS, OR FASCIOCUTANEOUS FLAP PRESERVATION VASCULAR PEDICLE performed by Sin Tovar DO [place] [facility] [place] ([place]FORMATION) Removal of basal cell carcimoma from the back. REMOVAL OF NECK LYMPH NODES N/A 08/10/2024 CERVICAL LYMPHADENECTOMY COMPLETE performed by Lexie Aldridge MD [place] [facility] REPAIR INITIAL INGUINAL HERNIA REDUCIBLE AGE 5 OR MORE Left 2009 REPAIR INITIAL INGUINAL HERNIA REDUCIBLE AGE 5 OR MORE Right 02/07/2019 REPAIR INITIAL INGUINAL HERNIA REDUCIBLE AGE 5 OR MORE performed by Jonathan Correia DO at OR [facility] SKIN SPLIT GRAFT, FACE/NECK/EARS 08/10/2024 SPLIT GRAFT FACE SCALP ETC LESS THAN 100SQ CM performed by Sin Tovar DO [place] [facility] WND REPR,LAYERD,NECK/DIGITS/GENIT,12.6-20CM Left 08/10/2024 LAYER CLOSURE WOUND NECK HAND FEET GENITALS 12.6 TO 20CM performed by Sin Tovar DO [place] [facility] Social History/Disposition Lives with: Spouse (08/11/241435) Assistance available: Yes (08/11/241435) Dwelling type: Single story home (08/11/241435) Entry steps: (3 or 1 small step) (08/11/241435) Inside steps: None (08/11/241435) Bedroom location: 1st floor (08/11/241435) Bath location: 1st floor full bath (08/11/241435) Prior Level of Function Reported by: Patient (08/11/241409) Ambulation: Ambulatory with device (08/11/241409) Ambulatory Device: Cane (08/11/241409) Grooming: Independent (08/11/241409) Bathing: Independent (08/11/241409) Dressing: Independent (08/11/241409) Feeding: Independent (08/11/241409) Toileting: Independent (08/11/241409) Meal Prep: Assistance (08/11/241409) Homemaking: Assistance (08/11/241409) Shopping: Assistance (08/11/241409) Durable Medical Equipment at home: Grab bars;Shower chair;Raised toilet seat;Rolling walker;Rollator;Straight cane (08/11/241409) Subjective: Pt supine in bed upon therapists arrival. Pt pleasant and agreeable to occupational therapy services. Pain: Patient has complaints of pain. Pain located in neck region. 6/10 at rest. Staff Notified Observations Consciousness: Alert (08/11/241409) Orientation: Oriented times 4 (08/11/241409) Psychosocial: Patient can communicate basic needs;Patient can converse in a social setting (08/11/241409) Sitting posture: Forward head;Rounded shoulders (08/11/241409) Standing posture: Forward head;Rounded shoulders (08/11/241409) Safety awareness: The Patient demonstrates carryover of insight during functional tasks.;The Patient verbalizes insight of current deficits. (08/11/241409) Other Findings Endurance: Functional activity;Fair (08/11/241409) Light touch sensation: LUE;RUE;Intact (08/11/241409) Coordination: RUE;LUE;Intact (08/11/241409) Tone: Normal tone (08/11/241409) Edema: No edema noted (08/11/241409) Current Functional Status: Bilateral Upper Extremity Range of Motion: WFL (08/11/241409) Strength Assessment: Deficits noted (MMT not formally assessed secondary to increased pain from recent surgery, pt at least 3/5 grossly assessed via observation) (08/11/241409) Self Care Grooming: Supervision (Please comment) (to wipe nose when seated in recliner chair, supervision forset-up assistance) (08/11/241409) Dressing Upper Body: Moderate Assistance (to shady a new gown, mod A secondary to lines and drains) () Lower Body: Dependent (to shady socks) (08/11/241409) Functional Ambulation Assistive Device: Rolling walker (08/11/241409) Distance in feet:: 3 (08/11/241409) Level of Assistance: Minimal Assistance (08/11/241409) Bed Mobility Supine-Sit: Minimal Assistance (x2) (08/11/241409) OT Transfers Sit-Stand: Minimal Assistance (08/11/241409) Stand-Sit: Minimal Assistance (08/11/241409) Bed-Chair: Minimal Assistance (08/11/241409) Balance Sit (Static): Fair (08/11/241409) Sit (Dynamic): Fair (-) (08/11/241409) Stand (Static): Fair (-) (08/11/241409) Stand (Dynamic): Poor (+) (08/11/241409) Alarm Status Patient positioned in: Chair (08/11/241409) With: Pressure pad alarm intact and functioning and call nunez in reach (08/11/241409) Following session patient seated OOB in chair with chair alarm activated. Chair alarm (did not havecord to plug into call nunez system and/or room did not have port to plug cord into call nunez system). Patient's nurse was made aware. Patient and Family Goals: to get well and to return home Patient Education Education Topic: Role of OT;Plan of care goals (08/11/241409) Review of Precautions: Safety;Fall (08/11/241409) Method of Education: Verbalized to patient (08/11/241409) Education Provided to: Patient (08/11/241409) Response to Education: Receptive and agreeable to education (08/11/241409) Barriers to learning: None (08/11/241409) Preferred learning method: Combination (08/11/241409) Treatment Provided: Therapeutic Activity: 14 minutes Evaluation Moderate Complexity 12 minutes - [id number]: Patient was cooperative and pleasant during treatment session. Moderate complexity evaluation performed and 3-5 activity limitations were identified, including ADL deficit, functional mobility deficit, bed mobility deficit, decreased strength, decreased endurance, and impaired balance. Minimal or moderate modification of the functional task was necessary to complete the evaluation. Deficits Requiring O.T. Treatment: Deficits requiring O.T. 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 Pt supine in bed upon therapists arrival. Pt reports he lives with his in a 1 story home with 3 or 1 JOEL. Prior to admission pt was completely independent in his ADL tasks and was utilizing a cane for functional mobility. Pt completed supine to sit transfer with min A x2 to assist with righting trunk into neutral seated positioning and for advancing legs/hips towardsEOB. Pt tolerated ~5mins seated EOB with fair- to fair seated balance to further increase postural strengthening and endurance during functional ADL/IADL tasks. Pt dependent to shady socks when seatedEOB to ensure safety with forward functional reaching due to lines and drains. Pt completed sit to stand transfers from EOB with rolling walker and ambulated ~3ft to recliner chair with min A to ensure safety due to generalized weakness and slight instability. Once seated in recliner chair, pt ableto wipe nose with supervision for set-up assistance. Further mobility or ADL participation limited at this time due to overall medical status and lines/drains. Pt relieved seated in recliner chair, call nunez in reach, all needs met. Currently, pt presents with difficulty in ADL completion and functi onal mobility secondary to decrease in strength, balance, endurance, safety awareness, and pt's overall current medical status. Pt would benefit from continue skilled OT services to further increase strength, endurance, and independence in ADL/IADL tasks and facilitate a safe transition to the nextlevel of care. Please consider post-acute care services which may include home health, correction, outpatient therapy or inpatient rehabilitation. The level of care will be determined in collaboration with patient, family/caregiver and care team members. OT Goals: Upper Extremity Strength/ROM Pt will increase bilateral upper extremity strength by 1/2 muscle grade. ADL/IADL Tasks Pt will demonstrate upper body bathing with independence . Pt will demonstrate upper body dressing with independence . Pt will demonstrate lower body bathing with min A. Pt will demonstrate lower body dressing with min A. Pt will demonstrate toileting with min A. Pt will demonstrate grooming with independence . Bed Mobility/Functional Mobility Pt will complete supine to sit transfer with supervision. Pt will complete sit to supine transfer with supervision. Pt will complete rolling left/right with supervision. Pt will complete functional mobility with least restrictive device with supervision. OT Transfers Pt will demonstrate sit to stand transfers with supervision. Pt will demonstrate bed to chair transfers with supervision. Pt will demonstrate toilet transfers with supervision. Pt will demonstrate tub bench/shower transfers with supervision. Balance Pt will increase seated balance to fair+ during ADL tasks. Pt will increase standing balance to fair during ADL tasks. Activity Tolerance/Endurance Pt will increase activity tolerance to 10 min when in stance to increase overall independence and safety in ADL/IADL tasks Goal Time Frame: 10 visits Treatment Plan: Energy Conservation, Safety, Homemaking Skills, Bed mobility training, Functional Ambulation, Transfer training, Upper extremity strengthening, Balance activities, ADL training, and Endurance Anticipated Frequency (on eval): (1-5x/wk) (08/11/241409) Equipment Needs Equipment needs: Rolling walker (08/11/241409) AM-PAC Help From Another Person Eating Meals: A little (08/11/241409) Help From Another Person Taking Care of Personal Grooming: A little (08/11/241409) Help From Another Person To Put On/Take Off Upper Body Clothing: A lot (08/11/241409) Help From Another Person To Put On/Take Off Lower Body Clothing: Total (08/11/241409) Help From Another Person Toileting: Total (08/11/241409) Help From Another Person Bathing: A lot (08/11/241409) OT AM-PAC Score: 12 (08/11/241409) OT AM-PAC t-Scale Score: 30.6 (08/11/241409) A portion of this AM-PAC assessment not scored based on functional assessment, rather clinical decision making utilized based on current findings and/or prior level of function. Please refer to future AM-PAC calculations of functional ability as they become available. * Juan Manuel Tesfaye RDN - 08/11/2024 8:08 AM EDT CLINICAL NUTRITION CONSULT/PROGRESS NOTE [facility] [address] Name: Kennedy Davis [place] [facility] A459/A Date: 08/11/2024 Time: 8:08 AM How patient was identified (select 2): Medical record number and Name Discussed in interdisciplinary rounds: Yes Kennedy Davis is a 78 year old male being seen for reduced dietary intake, skin breakdown, and significant unintentional weight loss Primary Diagnosis: Cutaneous SCCa of left neck 08/10: Left neck composite resection including skin, underlying subcutaneous tissue and portion of left SCM muscle, left neck dissection (levels II-V) Other pertinent information: Patient is seen and examined at bedside. Reported that he was eating good prior to admission. Not following any therapeutic diet. Was able to tolerate soft/regular diet. Mastication impaired. Stated that was drinking Impact before surgery. Currently denies nausea, vomiting and abdominal discomfort. NPO. Monitor for diet advanced. NUTRITION ASSESSMENT: Past medical/surgical history and medications reviewed. Food/Nutrition-Related History Diet: NPO Previously followed diet: regular/soft Food Allergies/Intolerances: NKFA Adult Energy Intake: No significant decrease Pertinent medications/vitamins/minerals/supplements: Nss, Calcitriol, levoxyl, isolyte, magnesium sulfate Pertinent Biochemical Data: Latest Reference Range & Units 08/11/24 05:08 BUN 6 - 20 mg/dL 70 (H) CREATININE 0.6 - 1.2 mg/dL 3.0 (H) EGFR >=60 mL/min 21 (L) (H): Data is abnormally high (L): Data is abnormally low Latest Reference Range & Units 08/11/24 05:08 POTASSIUM 3.5 - 5.1 mmol/L 5.3 (H) (H): Data is abnormally high Latest Reference Range & Units 08/11/24 05:08 Magnesium 1.5 - 2.6 mg/dL 1.4 (L) (L): Data is abnormally low Monitor trends Nutrition-Focused Physical Findings: Appearance: Ill-appearing Respiratory support: Supplemental O2 Delivery: Room Air, None Nasal/Oral: Mastication, impaired and Swallow function, compromised or painful Digestive: No issues identified Cognition: Awake, alert Skin: Incision left cheek Nutrition Focused Physical Exam: NFPE completed on 08/11 Subcutaneous Fat Loss: No significant subcutaneous fat loss noted. Muscle Loss: No significant muscle loss noted. Edema Location: Other (neck) (08/11/24399) Edema Assessment: +2 - Description (08/11/24399) Anthropometrics Measurements Height: 165.1 cm (5' 5") (08/10/242029) Admission weight: 69.3 kg (152 lb 12.5 oz) Weight: 70 kg (154 lb 5.2 oz) (08/11/24 0600) BMI: 25.64 (08/10/24 2030) Usual Body Weight: 68 -74 kg per EHR, 71.8 kg per pt [place] weight: 67.9 kg [place] Weight Based on BMI: 24.9 Interpretation of Weight Change Prior to Admission: No recent/significant weight change Nutrition Prescription: Energy needs: 25-30 Kcal/kg Kcal/day: 1725 - 2070 kcal Based on admission weight Protein needs: 1.0-1.2 gm/kg Protein: 69 -~83 gm Based on admission weight Fluid needs: 25 ml/kg Fluid: 1725 ml/day Based on admission weight Malnutrition: Malnutrition Present: No (08/11/24 1041) NUTRITION DIAGNOSIS: Chewing (masticatory) difficulty related to s/p surgery left neck as evidenced by NPO and possible need for modified diet consistency Goals: Diet advancement or initiation of enteral/parenteral nutrition within 24-48 hours. NUTRITION INTERVENTION/PLAN: Continue to monitor NPO/clear liquid status Clinical Nutrition Recommendations: Diet: Advance diet when clinically feasible Enteral Nutrition: If diet can't be advanced, If required, Nutren 1.5 with a goal rate of 60 ml/hr (Calculated to meet needs over 21 hours) to provide 1260 ml, 1890 kcal, 85.6 gm protein and 957 ml free water levothyroxine (tube feeds, if required, need to be held 1 hour before and after medication administration) NUTRITION MONITORING AND EVALUATION: NPO status/diet advancement and tolerance Lab values warranting change with MNT Weight for trends Plan follow-up: Will follow and adjust nutrition plan of care as medical condition requires. Please contact for change(s) in patient condition requiring earlier intervention. Juan Manuel Tesfaye MS, RDN, LDN Clinical Dietitian [facility] text documented in this encounter Nursing Notes * Christina Bhatia RN - 08/22/2024 6:28 AM EDT Otolaryngology group physicians at bedside and discussed the care plan with patient's over thephone * Marni Navarro RN - 08/16/2024 10:53 AM EDT [id number]--Assessment as charted. 1130-Reported off to next shift RN. * Keeley Mendez RN - 08/15/2024 9:06 PM EDT Dual Licensed Skin Assessment completed by Keeley Malloy and Mallika Rose. The patient is/has a pressure injury on their torso - consider low air loss bed Skin Breakdown (includes non blanchable erythema): Yes. Wound Type: Suspected pressure injury at bony prominence, location Large open blister over spine in middle of back. Moisture associated skin damage/incontinent related skin damage, location Bilateral buttocks red/purple/blanchable. Skin intact. Left neck and Left chest surgical incisions w/ sutures/caro open to air. Left thigh skin graft site- dressing intact. Extensive edema/ecchymosis over torso and bilateral upper extremities. Wound Ostomy Nurse Notified: Yes - notified via wound care protocol Nursing interventions: Pt placed in a citadel bed, q2 turn and repo, zinc ointment applied to buttocks/groin. Pt refusing Allevyn on back and buttocks at this time. * Fidelia Cooper RN - 08/15/2024 7:38 AM EDT Dual Licensed Skin Assessment completed by Fidelia Cervantes RN and Mariam Castelan RN. The patient is/has a N/A Skin Breakdown (includes non blanchable erythema): Yes - Surgical/Procedural changes only. L thigh surgical site L neck incision L neck foam w/ caro L chest incision Scattered ecchymosis No new skin changes noted * Wyatt Cowart RN - 08/13/2024 2:35 PM EDT Dual Licensed Skin Assessment completed by Wyatt Stephens and Garima Castelan. The patient is/has a N/A Skin Breakdown (includes non blanchable erythema): Yes - Surgical/Procedural changes only. Patient returned from OR with previous surgical changes * Ivy Hill RN - 08/13/2024 7:31 AM EDT Images from the original note were not included. Dual Licensed Skin Assessment completed by Ivy Trujillo RN The patient is/has a N/A Skin Breakdown (includes non blanchable erythema): Yes L thigh surgical site L neck incision L neck foam w/ caro L chest incision Scattered ecchymosis * Ivy Hill RN - 08/13/2024 7:20 AM EDT Upon assessment at 0430, patient's chest presented as swollen and tender. After closer inspection patient explained that the site felt different and was more tender than previously. ENT service messaged explaining the situation of the chest being swelled as well as the patient complaining of more pain overall and especially with striping of the LETY drain. Increased drainage output was also mentioned for this AM. Service acknowledged the issue and reported that they would take a look at it this morning to examine closer. Critical care service then messaged about the situation and the response by the ENT service to examine further. * Gabe Egan RN - 08/11/2024 8:00 PM EDT Dual Licensed Skin Assessment completed by Gabe GUERRERO and Mariam GUERRERO. The patient is/has a N/A Skin Breakdown (includes non blanchable erythema): Yes - Surgical/Procedural changes only. L thigh surgical site L neck incision L neck foam w/ caro L chest incision * Supriya Saenz RN - 08/11/2024 3:16 AM EDT Dual Licensed Skin Assessment completed by CESAR Dillon and CESAR Avalos. The patient is/has a N/A Skin Breakdown (includes non blanchable erythema): Yes - Surgical/Procedural changes only. L thigh surgical site L neck incision L neck foam w/ caro L chest incision * Susana Zacarias RN - 08/10/2024 5:11 PM EDT Dual Licensed Skin Assessment completed by CESAR Love and CESAR Meza. The patient is/has a unable to assess Skin Breakdown (includes non blanchable erythema): Yes - Surgical/Procedural changes only. Areas of altered skin integrity include: surgical sites on chest, neck, and left leg, scattered bruising, pink, blanchable sacrum. * Jatin Hough RN - 08/10/2024 6:35 AM EDT Dual Licensed Skin Assessment completed by Freddie Hough RN and Freddie Morales RN The patient is/has a N/A Skin Breakdown (includes non blanchable erythema): Yes - Surgical/Procedural changes only. Dressing to left neck, ecchymosis to upper chest/neck. * Monserrat Gilbert RN - 08/08/2024 3:20 PM EDT Presurgery instructions sent to patient via [employer] message. Case is tomorrow, did not call. Pre-operative chart review completed. NO ANESTHESIA EVAL REQUESTED PER CASE DOCUMENTATION. PREOP PATIENT INFORMATION AND EDUCATION: MEDICATION INSTRUCTIONS: The day of surgery/procedure, you may TAKE the following medications with a sip of water up to 2 hours prior to your arrival time: Doxycycline Allopurinol Prednisone Furosemide Metoprolol Levothyroxine Omeprazole Tylenol id needed Anoro ellipta Albuterol nebulizer if needed Use Albuterol inhaler if needed, please bring to the hospital with you AVOID/ DO NOT TAKE any medications the morning of surgery/procedure that are not listed above. STOP taking the following medications the noted number of days prior to surgery/procedure unless otherwise specified by your surgeon: Please follow surgeon's instructions regarding use of Aspirin, Coumadin, Plavix, Eliquis, and any other blood thinner including NSAIDs (non-steroidal anti- inflammatory drugs, eg, Advil, Ibuprofen, Motrin, Aleve, Naproxen); if you have any questions regarding your anticoagulation therapy please contact your surgeon's clinic. Please verify any proposed stoppage of your anticoagulation therapy with the agent's prescribing provider. 10 days prior to surgery/procedure Stop all Herbal supplements, Green Tea, Turmeric, Melatonin, CBD, THC, etc. Stop all Vitamins (including Vitamin E) 24 hours prior to surgery/procedure DO NOT consume any alcohol. DO NOT use medical marijuana. DO NOT smoke or use tobacco products of any kind after midnight prior to surgery. *Using any of these products may increase your risks of procedural complications. IF IT IS LESS THAN RECOMMENDED STOPPAGE TIME PLEASE STOP AT TIME OF NOTIFICATION. FASTING RECOMMENDATIONS: To reduce risk, it is important for all elective surgery patients to follow the specific fasting guidelines listed below. If you have received more stringent guidelines, please follow the MOST RESTRICTIVE guidelines that you have been provided. DO NOT EAT after midnight on the night prior to your surgery date. You are allowed to drink clear liquids up to two hours prior to arrival time to the hospital or surgery center. Examples of clear liquids include water, clear fruit juice without pulp, clear carbonated beverages, clear tea, and black coffee. Any drinks given by your surgical service take as directed. THE DAY BEFORE YOUR SURGERY: -Drink plenty of fluid the day before your surgery. Contact your surgeon's office if you develop any of the following within 2 weeks of surgery: A cold Infection Fever Shingles Chicken pox or exposure to chicken pox Open areas such as scrapes, cuts, sheikh or other skin conditions Rashes GENERAL INSTRUCTIONS FOR PREPARING FOR SURGERY: BATHING INSTRUCTIONS: Bathe the evening prior to and the morning of surgery/procedure. Cleanse your body using ONLY anti-bacterial soap (eg, Dial, Safeguard) or any specific soap/cleansers and instructions provided by your surgeon (eg, Chlorhexidine). -You should brush your teeth the morning of surgery. Do NOT apply any lotions, powders, sprays, creams, oils, make-up, or deodorants after bathing. No hairspray, or nail bengali on fingers or toes. Day of surgery/procedure do not use tampons. If you wear contacts wear your eyeglasses if available otherwise bring your contact supplies with you to remove them prior to your surgery/procedure. If you wear glasses or dentures, please bring cases in which you can store them during your surgery. Please remove all piercings and jewelry and leave them at home. Wear comfortable and loose clothing. -Please leave all valuables at home. -If you use a CPAP and are staying overnight, please bring your mask and tubing with you to the hospital. -If you use an assistive mobility device (walker, cane, etc), please label it with your name and bring to hospital. -An escort auto parts delivery driver is required if you are being discharged the same day of the surgery. You should have a responsible adult over the age of 18 [address] you home. This person should be present with youin the hospital at the time of discharge and for the first 24 hours after the surgery to support your needs. If you are taking a taxi home, you must have your responsible democrat accompany you in the taxi ride home at the time of discharge. OR times subject to change. Please check voicemail messages the day/evening before your surgery forany updates. PRE-OP: You will be taken to the pre-op area where your vital signs (blood pressure, pulse and temperature)will be taken. Any preparations that need to be done will be done there. When it is time for your surgery, you will be taken to the operating room. PARENTS OF PEDIATRIC PATIENTS WILL BE ALLOWED TO STAY WITH THEIR CHILDREN UNTIL THEY ARE ESCORTED TO THE OPERATING ROOM OUTPATIENT SURGERY PATIENTS: After your surgery you will be taken to the Same Day Surgery Unit when you are awake and will go home from there. You will get instructions about your home care before you leave. Arrange to have someone drive you home from the hospital. You may not drive for 24 hours after anesthesia. You must havean adult stay with you at home for 24 hours after your operation. This is very important. If you are not able to comply with these guidelines, your Short Stay surgery cannot be done. ADMISSION PATIENTS: After your stay in the recovery area, you will be taken to your room. Your family may visit you in your room based on current visitation policy. If a next day discharge is expected, it is important to make arrangements for a auto parts delivery driver to take you home. Please be aware our visitation policies are subject to change Professionals, attendants, caregivers or family members are allowable visitors for patients with intellectual, developmental or cognitive disabilities, communication barriers or behavioral concerns. Because patients' and families' needs vary, they will be taken into account when applying visitation restrictions. [facility]: Contact # [phone] Directions to Surgical Suite in from the [place] Entrance The Surgical Waiting Room can be found in the Lobby of [facility]. Enter through Main Lobby Entrance and the Waiting Room is directly in front of you. Proceed to check in and give them your name. Directions to Surgical Suite from the East Entrance Enter the East entrance and follow the hallway to the J elevator. Take the J elevator up to Level 1. Continue down the long hallway to the main [facility] Lobby. The Surgical Waiting Room will be on your Right. Proceed to check in and give them your Name. Directions to Surgical Suite from the Parking Garage Enter the [facility] lobby and proceed down the hayward to the left. At the end of the hayward, turn right. Continue down the long hallway to the main [facility]. The Surgical Waiting Room will be on your Right. Proceed to check in and give them your Name. Monserrat Gilbert, MSN, RN [facility] 08/08/2024 documented in this encounter OR Notes * OR Surgeon - Robinson Paniagua MD - 08/13/2024 6:12 PM EDT OPERATIVE RECORD [place], [place] [address] Kennedy Davis MR # [id number] [place]: [place] [facility] [place] [facility]) SERVICE: Otolaryngology - Head & Neck Surgery - Facial Plastic Surgery DATE OF PROCEDURE: 08/13/2024 6:12 PM PRE-OP DIAGNOSIS: Chest hematoma POST-OP DIAGNOSIS: Same PROCEDURE: Evacuation of left chest wall hematoma SURGEON: Yumiko Gil MD ASSISTANTS: Robinson Paniagua MD ANESTHESIA: General endotracheal anesthesia OPERATIVE FINDINGS: 1) Hematoma formation over the left pec flap donor site, reaccumulated form previous evacuation today. 2) Evacuation of hematoma via opening of prior incision. 3) Chest wall brisk bleeding noted with hemostasis achieved via bipolar cautery. 4) Diffuse oozing from muscle edges requiring bipolar cautery 5) Closure of chest incision with deep dermal sutures and caro. 6) Placement of pressure dressing over left chest. 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 He developed a hematoma over the pec flap donor site that requires drainage in OR. He reaccumluated shortly after surgery and required repeat drainage inthe OR. DESCRIPTION OF OPERATION: A timeout was held and the patient was identified and the procedure verified. General anesthesia was induced and the patient orotracheally intubated. The patient was draped in standard fashion for head and neck surgery. The chest incision was opened opened. Hematoma was immediately evacuated. The donor site cavity was then irrigated with saline. The chest wall was inspected and the cavity was washed out of clot. A small focus of bleeding was noted the inferior chest wall and was cauterized with bipolar cautery. Diffuse oozing from the muscle edges was controlled with bipolar cautery. The pedicle was inspected and preserved. The two previously placed LETY drains were flushed. The wound was once again thoroughly inspected and hemostasis was assured.The incision was then c losed with 3-0 vicryl for a deep layer and caro for a superficial layer. Bacitracin was applied and a pressure dressing of fluffs, kerlix, and antonino wrap was placed. The patient was turned over to the anesthesia team for extubation. DISPOSITION: The patient was transferred to the the Post-Anesthesia Care Unit. APPARENT INTRAOPERATIVE COMPLICATIONS: None PATIENT CONDITION: Stable ATTESTATION: Dr. Gil was present for the entire case. Robinson Paniagua MD Resident Physician Department of Otolaryngology Head & Neck Surgery Facial Plastic Surgery [address] [address] cc: Professional Reimbursement and Compliance * OR Surgeon - Robinson Paniagua MD - 08/13/2024 7:47 AM EDT OPERATIVE RECORD [place], [place] [address] Kennedy Davis MR # [id number] [place] [facility] [place] [facility]) SERVICE: Otolaryngology - Head & Neck Surgery - Facial Plastic Surgery DATE OF PROCEDURE: 08/13/2024 1:51 PM PRE-OP DIAGNOSIS: Chest hematoma POST-OP DIAGNOSIS: Same PROCEDURE: Evacuation of left chest wall hematoma SURGEON: Yumiko Gil MD ASSISTANTS: Robinson Paniagua MD ANESTHESIA: General endotracheal anesthesia OPERATIVE FINDINGS: 1) Hematoma formation over the left pec flap donor site. 2) Evacuation of hematoma via opening of prior incision 3) Chest wall brisk bleeding noted with hemostasis achieved via bipolar cautery. 4) Replacement of LETY drains x2 in the donor site. 5) Closure of chest incision with deep dermal sutures and caro. 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 He developed a hematoma over the pec flap donor site that requires drainage in OR. DESCRIPTION OF OPERATION: A timeout was held and the patient was identified and the procedure verified. General anesthesia was induced and the patient orotracheally intubated. The patient was draped in standard fashion for head and neck surgery. Approximately 10-15 caro were removed and the chest incision was opened. Hematoma was immediately evacuated. The donor site cavity was then irrigated withsaline. The chest wall was inspected and the cavity was washed out of clot. A small focus of bleeding was noted the medial chest wall and was cauterized with bipolar cautery. Diffuse oozing from the muscle edges was controlled with bipolar cautery. The pedicle was preserved. The two previously placed LETY drains were removed and replaced with new drains. The wound was once again thoroughly inspected and hemostasis was assured.The incision was then closed with 3-0 vicryl for a deep layer and caro for a superficial layer. Bacitracin was applied and the patient was turned over to the anesthesiateam for extubation. DISPOSITION: The patient was transferred to the the Post-Anesthesia Care Unit. APPARENT INTRAOPERATIVE COMPLICATIONS: None PATIENT CONDITION: Stable ATTESTATION: Dr. Gil was present for the entire case. 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 POST-OP DIAGNOSIS: Same PROCEDURE: - Left pectoralis major myocutaneous pedicled flap - Adjacent tissue transfer (6 x 15 cm medial chest wall, 8 x 15 cm lateral chest wall) - Split thickness skin graft (10 cm x 10 cm) SURGEON: Roberto Tovar DO ASSISTANTS: Yung Cisse DO; Yifan Perez MD ANESTHESIA: General endotracheal anesthesia OPERATIVE FINDINGS: - Left neck defect: including 10 x 10 cm skin defect, underlying subcutaneous tissue and portion ofleft SCM muscle - Left pectoralis major myocutaneous flap harvested, de-epithelialized and used for reconstruction of composite resection defect - Split thickness skin graft (10 x 10 cm) harvested and placed over pectoralis major flap to reconstruct skin defect DRAINS and/or PACKS: LETY x 3 ESTIMATED BLOOD LOSS: 100 mL FLUIDS: Per anesthesia record URINE: Per anesthesia record SPECIMEN(s) OBTAINED and DISPOSITION: None for Dr. Tovar's portion of the case INDICATIONS & HISTORY: This is a 78 year old year old male with history of left neck cutaneous SCCa s/p partial resection with Mohs with positive margins requiring more extensive resection. He presents today for scheduled surgery. DESCRIPTION OF OPERATION: The patient was brought to the operating room and general endotracheal anesthesia was induced. The patient was placed in the supine position and the bed was turned 180 degrees. Lower extremity sequential compression devices were in place. The patient was prepped and draped in usual sterile fashion.A surgical timeout was performed confirming correct patient and surgical site. The procedure began with the primary ablation. This was performed by the ablative surgeon, Dr. Aldridge, and will be dictated separately. The defect was assessed and included a deep defect of the left skin, subcutaneous tissue and left SCM muscle. It was elected to proceed with the planned left pectoralis major myocutaneous flap. An ipsilateral pectoralis major flap was chosen for reconstruction. The flap was designed and raised with an 8 x 10 cm skin paddle. Incision was made sharply and then carried through the subcutaneoustissue to the pectoralis muscle fascia with electrocautery. Medial, lateral, superior, and inferiorskin flaps were raised to expose the entire superficial surface of the pectoralis muscle. The distal aspect of the skin paddle was lifted with the rectus fascia. Superiorly, a tunnel was made connecting to the subplatysmal flap to allow the harvest site to be in continuity with the neck. The width of the tunnel was 4 fingerbreadths. The muscle was raised inferiorly to superiorly off of the chest wall and pectoralis minor muscle. The thoracoacromial pedical was identified centrally on the deep surface of the muscle and preserved. Perforating vessels from the chest wall were clipped meticulously. Nerves to to the pectoralis major were sectioned to allow muscle atrophy over time. The muscle was released medially from its parasternal attachments. The muscle was released laterally from the humeral attachments to the level of the axillary vein superiorly. The pedical was confirmed intact and the flap was noted to show good bleeding distally. The flap was passed through the tunnel to the neck and tested in the intended orientation. Here, it was noted to maintain good viability and distal blood flow. A 7 mm flat LETY drain was then placed under the flap, exiting the left neck and secured with a 2-0 silk suture. The muscle was secured at its midpoint to the surrounding fascia and SCM to reduce tension on the pedicle. The skin paddle was resected, as the oriented of the flap and size of skin paddle were note adequate to reconstruct the large skin defect. The muscle itself was secured circumferentially with deep dermal 3- 0 vicryl. A [id number] split-thickness skin graft was harvested from the left thigh using a dermatome set at 0.020 inch thickness. There was a malfunction of the dermatome initially, resulting in a left thigh laceration. The dermatome was removed from the field and a new dermatome brought into the room. The laceration was closed with 3-0 vicryl and 5-0 fast gut. A 10 cm x 10 cm split thickness skin graft was then harvested with the second dermatome. A single layer acell graft was placed over the skin graft harvest site and covered with a tegaderm dressing. A 4-0 chromic suture was used to secure the skin graft in the left neck, over the pectoralis major muscle. Minimal pie crusting was performed. Copious surgical lubricant was applied to the skin graft and incision. A xeroform dressing was then placedover the skin graft and a sterile sponge was placed over the xeroform given the size of the donor site. The left chest donor site was closed in a layered fashion. The defect area was 8x10cm. The defect included skin, subcutaneous tissue and muscle; the depth was to the intercostal muscles and rib perichondrium. The chest was irrigated copiously with saline. Hemostasis was confirmed. Two 7 mm flat LETY drains were placed. Medial and lateral flaps were raised to allow bilateral flap advancement closureof the fusiform cutaneous defect over the chest wall. The medial skin was undermined in an area of 6x15cm, and the lateral skin was undermined in an area of 8x15cm. The medial and lateral flaps were advanced to allow primary closure. 3-0 vicryl interrupted suture. The skin was closed with caro. This concluded the procedure. There were no complications. The patient was returned to our anesthesia colleagues, awakened, and transported to the ICU in stable condition. DISPOSITION: The patient was transferred to the Post-Anesthesia Care Unit. APPARENT INTRAOPERATIVE COMPLICATIONS: None PATIENT CONDITION: Stable ATTESTATION: Dr. Tovar was present for the lewis portions of the procedure. 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 POST-OP DIAGNOSIS: Same PROCEDURE: Left neck composite resection including skin, underlying subcutaneous tissue and portionof left SCM muscle, left neck dissection (levels II-V) SURGEON: Steve Aldridge MD ASSISTANTS: Yung Cisse DO; Yifan Perez MD ANESTHESIA: General endotracheal anesthesia OPERATIVE FINDINGS: Left lateral neck with 9 x 7 cm area of granulation tissue at the site of primary tumor, partially resected previously with Mohs Left neck composite resection completed including margin of skin, underlying subcutaneous tissue and portion of left SCM muscle; frozen section reported as free of tumor at all margins Left neck dissection (levels II-V) completed Left CN XI identified and preserved DRAINS and/or PACKS: LETY x 1 in neck ESTIMATED BLOOD LOSS: 100 mL FLUIDS: Per anesthesia record URINE: Per anesthesia record SPECIMEN(s) OBTAINED and DISPOSITION: ID Source Tests Priority Auth Provider Collected By Collect Time Fzn Formalin Time 1 Neck SURGICAL PATHOLOGY STAT Lexie Aldridge MD [[id number]] Lexie Aldridge MD 940 Yes Description: composite resection, left cutaneous and deep neck Comment: double clip at 12:00, triple clip at 9:00; stitch at 3:00 2 Neck SURGICAL PATHOLOGY Lexie Aldridge MD [[id number]] Lexie Aldridge MD 08/10/24 1002No Description: Left level 2 3 Neck SURGICAL PATHOLOGY Lexie Aldridge MD [[id number]] Lexie Aldridge MD 08/10/24 0955No Description: Left level 2B 4 Neck SURGICAL PATHOLOGY Lexie Aldridge MD [[id number]] Lexie Aldridge MD 08/10/24 1014No Description: Left level 5A 5 Neck SURGICAL PATHOLOGY Lexie Aldridge MD [[id number]] Lexie Aldridge MD 08/10/24 1014No Description: Left level 5B 6 Neck SURGICAL PATHOLOGY Lexie Aldridge MD [[id number]] Lexie Aldridge MD 08/10/24 1018No Description: Left level 4 INDICATIONS & HISTORY: This is a 78 year old year old male with history of left neck cutaneous SCCa s/p partial resection with Mohs with positive margins requiring more extensive resection. He presents today for scheduled surgery. DESCRIPTION OF OPERATION: A timeout was held and the patient was identified and the procedure verified. The patient was placed in supine position on the operating room table, general anesthesia was induced and the patient orotracheally intubated. The bed was turned 180 degrees. The patient was prepped and draped in the normal sterile fashion. The left neck was examined (see findings above). A horizontal skin incision was marked and incisionwas made with bovie. The platysma was identified and divided. Superior and inferior subplatysmal flaps were elevated. At the primary site, a 1 cm skin margin was taken around the previously resected area, which had been marked with methylene blue. Dissection continued deep to the SCM and a cuff of S CM muscle was taken along with the specimen. The specimen was then dissected free, oriented and sent for frozen section. All margins were reported as negative. The resultant defect measured 10 cm x 10 cm and included skin, subcutaneous tissue and muscle. This would later be reconstructed by Dr. Tovar (see separate dictation). Attention was then directed to left neck dissection. The anterior border of the trapezius muscle was identified superiorly and followed down inferiorly, rolling the level V contents medially. CN XI was then identified at Erb's point and followed posteriorly into level V. The superior contents of level V were resected and sent as left neck level VA. The contents inferior to CN XI were then resected and sent as level VB. Attention was then directed to the anterior border of the SCM. The fascia was dissected off the anterior border of the SCM starting superiorly and CN XI was quickly identified here. Dissection continued circumferentially around the SCM muscle until it was completely mobilized. The SCM was then retracted laterally. The fatty lymph node packet of level IIA, III and IV were elevated down to the floor of the cavity and then medially. Several of the cervical rootlets were identified and taken with the specimen. Much time here was spent dissecting the cervical fatty lymph node packets from the floor. From an inferior to superior fashion the lymph nodes of levels IIA, III and IV were dissected free and sent as separate specimens. Attention was then directed superiorly to level IIB . The contents of level IIB were removed en bloc and sent to surgical pathology as well. The patient was then turned over to Dr. Tovar for the reconstructive portion of the case (dictated separately). The patient was transferred to the ICU post-operatively as planned. DISPOSITION: The patient was transferred to the Intensive Care Unit. APPARENT INTRAOPERATIVE COMPLICATIONS: None PATIENT CONDITION: Stable ATTESTATION: Dr. Aldridge was present for the lewis portions of the procedure. Yung Cisse DO Resident Physician Otolaryngology -Head & Neck Surgery [address] [address] cc: Professional Reimbursement and Compliance documented in this encounter Miscellaneous Notes * Ancillary Progress Note - Bo Raman RN - 08/22/2024 10:51 AM EDT CARE MANAGEMENT - ADULT DISCHARGE [place] [facility] [address] Name: Kennedy Davis [place] [facility] Date: 08/22/2024 Time: 10:51 AM The following coordination of care and discharge plan has been coordinated with the care team, patient, family and/or caregiver according to the patients needs and preferences. Discharge Discharge Discharge Transportation: Family/Friends drive (10/15/24 1050) Patient declined post-hospital transition of care recommendation: Home Health (08/22/24 1050) Final Discharge Plan (Complete only at time of Discharge): Home - Self Care (08/22/24 1051) Destination - Admitted Since 08/10/2024 No services have been selected for the patient. Narrative: possible discharge home today pending stability. Trending Hgb. Pt discharging to home. No needs identified by CM. Family/friends anticipated to provide discharge transportation. Please contact CM with any concerns. * Care Plan - Christina Bhatia RN - 08/22/2024 4:34 AM EDT Clinical Goal(s): maintain safety and comfort (08/21/24 2300) Possible barriers to meeting goal(s)/advancing plan of care: wound healing, pain Stability of the patient: Moderately unstable - medium risk of patient condition declining or worsening Summary regarding today's goal(s): Met: safety and comfort maintained Recommendations: hourly rounding, pain management * Care Plan - Trinidad Irene RN - 08/21/2024 7:00 PM EDT Clinical Goal(s): patient will remain free from falls/injury this shift (08/21/24 0800) Possible barriers to meeting goal(s)/advancing plan of care: ambulatory dysfunction Stability of the patient: Moderately stable - low risk of patient condition declining or worsening Summary regarding today's goal(s): Met: remained free from falls this shift Recommendations: assist with ambulation keep floor free from clutter * Ancillary Progress Note - Makayla Méndez COTA - 08/21/2024 2:20 PM EDT PROGRESS NOTE - Occupational Therapy [facility] [address] Name: Kennedy Davis [place] [facility] Date: 08/21/2024 Time: 2:20 PM Kennedy Davis is a 78 year old male. Patient Status: Inpatient Insurance: Payor: [facility] [employer] Plan: [facility] [employer] CLASSIC 1 PART D MC-LD Product Type: *No Product type* Payor: [facility] Plan: [facility] Product Type: *No Product type* Patient Seen: at bedside, nursing cleared patient for therapy Patient Identified By: Name, ID Band and Date Diagnosis: neck cancer (08/21/24919) Status of treatment: Treatment completed (08/21/24919) Orders: OT evaluation and treatment (08/21/24919) Weight Bearing Status: Weight bearing as tolerated (08/21/24919) Precautions: Alarms;Falls;Safety;Skin (08/21/24919) Total Treatment Time: 12 (08/21/24919) Pain: No complaints of pain Current Functional Status: Activities of Daily Living: Self Care Grooming: Supervision (Please comment) (08/21/24919) Dressing Upper Body: Supervision (Please comment) (08/21/24919) Lower Body: Maximal Assistance (08/21/24919) Functional Ambulation Assistive Device: Rolling walker (08/21/24919) Level of Assistance: Supervision (Please Comment) (08/21/24919) Bed Mobility Supine-Sit: Supervision (Please comment) (08/21/24919) OT Transfers Sit-Stand: Supervision (Please comment) (08/21/24919) Stand-Sit: Supervision (Please comment) (08/21/24919) Bed-Chair: Supervision (Please comment) (08/21/24919) Balance Sit (Static): Fair (08/21/24919) Sit (Dynamic): Fair (08/21/24919) Stand (Static): Fair (08/21/24919) Stand (Dynamic): Fair (08/21/24919) Alarm Status Patient positioned in: Chair (08/21/24919) With: Pressure pad alarm intact and functioning and call nunez in reach (08/21/24919) Following session patient seated OOB in chair with chair alarm activated and cord plugged into callbell system. Treatment Provided: Self M[facility] Management Trainin minutes Assessment: Supine in bed upon entering room. Patient demonstrates supine to sit edge of bed supervision level. Patient demonstrates grooming and upper body dressing supervision level set up. Patientrequired assistance with lower body dressing seated. Patient performed functional transfers and ambulation supervision level using rolling walker. Patient would benefit from continued OT services to maximize functional independence. Please consider post-acute care services which may include home health, correction, outpatient therapy or inpatient rehabilitation. The level of care will be determined in collaboration with patient, family/caregiver and care team members. Plan: Will continue to follow as per plan. Anticipated Frequency (on eval): (1- 5 times a week) (08/21/24919) AM-PAC Help From Another Person Eating Meals: A little (08/21/24919) Help From Another Person Taking Care of Personal Grooming: A little (08/21/24919) Help From Another Person To Put On/Take Off Upper Body Clothing: A little (08/21/24919) Help From Another Person To Put On/Take Off Lower Body Clothing: A lot (08/21/24919) Help From Another Person Toileting: A lot (08/21/24919) Help From Another Person Bathing: A little (08/21/24919) OT AM-PAC Score: 16 (08/21/24919) OT AM-PAC t-Scale Score: 35.96 (08/21/24919) A portion of this AM-PAC assessment not scored based on functional assessment; rather clinical decision making utilized based on current findings and/or prior level of function. Please refer to future AM-PAC calculations of functional ability as they become available. * Ancillary Progress Note - Bo Raman RN - 08/21/2024 2:00 PM EDT CARE MANAGEMENT - ADULT TRANSITION NOTE [facility] [address] Name: Kennedy Davis Location: [place] [address]A Date: 08/21/2024 Time: 2:00 PM Risk Stratification Risk Stratification Psycho Social / Medical Concerns Identified: Adjustment to illness/injury;New serious diagnosis;Chronic Kidney Disease;Multiple Comorbidities (08/11/241507) Accessed [employer] to connect patients to social care resources: (as needed) (08/11/241507) OBRA or OPTIONS needed for placement: No (08/11/241507) Readmission Risk Score: 41.01 (08/21/24 1201) AM-PAC Score With Stairs : 17 (08/21/24 1118) Caregiver Information Patient Contacts Name Relation Home Work Mobile Karen Davis Spouse [phone] Lula Colón Adult Child [phone] Transition of Care Checklist Transition of Care Checklist (aka Readmission Risk Score) Discharge Disposition: Home (08/11/241512) Home or Home w/Home Health: Complex (34-100%) (08/11/241512) Narrative: Pt discussed in IDT Rounds today. Not medically ready. Hgb 6.9. Trending LETY drain output. Possible discharge home tomorrow, pending stability Please contact CM with any further concerns. Anticipated Transportation at Discharge: family Patient/Family Expectations: home Transition Planning Transition Planning Transition Plan/Considerations: Needs uncertain at this time - Continue monitoring for needs (08/11/241512) [facility] Quality Rating provided to patient: No (08/11/241512) Repisodic Choice provided to patient: No (08/11/241512) Insurance Considerations: Precertification needed for Post-Acute Care;Prior authorization for medication;Therapy documentation needed for precert request (08/11/241512) Referral to Community Agency : N/A (08/11/241512) Post-Acute Care needs identified and Referrals Completed: Drains (08/11/241512) Additional Considerations: none Care Management will continue to monitor and assist with discharge planning needs * Ancillary Progress Note - Amira Field RDN - 08/21/2024 12:18 PM EDT CLINICAL NUTRITION ADULT RISK ASSESSMENT [address] [address] Name: Kennedy Davis [place] [facility] Date: 08/21/2024 Time: 12:18 PM How patient was identified (select 2): date and Name Kennedy Davis is a 78 year old male being assessed for clinical nutrition risk related to follow-up Primary diagnosis: Admitted with squamous cell carcinoma of the neck 08/10 - Left neck composite resection including skin, underlying subcutaneous tissue and portion of left SCM muscle, left neck dissection (levels II-V) 08/13 - Evacuation of left chest wall hematoma Other pertinent information: Pt and family present. Pt has been eating usually 50-100% of meals (most meals around 50%). Obtained food preferences. Pt open to supplements to help with PO intake/woundhealing. No reports of N/V. Reports bowel movements have been "regular". No c/o chewing or swallowing difficulties. Weight has increased - suspect related to fluid given +2 edema noted. Anthropometrics Measurements Admission weight (for dietitians): 69.3 kg Height: 170.2 cm (5' 7.01") (08/20/24601) Weight: 75.5 kg (166 lb 7.2 oz) (08/21/24520) BMI: 25.72 (08/20/24601) Usual Body Weight or EDW for Dialysis Patients: 68-74 kg per EHR, 72 kg per pt Diet: Regular Previously followed diet: Regular Food Allergies/Intolerances: No known Oral Nutrition Supplement (ONS): None Pertinent medications/vitamins/minerals/supplements: calcitriol, vitamin B12, colace, folic acid, levoxyl, omeprazole, miralax, senokot, prednisone RISK FACTORS: Adult Energy Intake: No significant decrease Interpretation of Weight Change: Weight gain - likely related to fluid Skin: Compromise without nutrition-related implications Surgical incision - left leg, left neck MASD - right buttock NUTRITION RISK CATEGORY: Nutrition Risk Category: Low/Moderate (0-1 factors) Clinical Nutrition Recommendations: Diet: Continue current nutrition plan NUTRITION INTERVENTION/PLAN: Orders: Oral nutrition supplement added Supplement Shake (1/2 cup provides 200 calories, 6 grams protein, 34 grams carbohydrate) BID Relayed information to food counter worker Will follow and adjust nutritional plan as medical condition requires. Please contact for change(s)in patient condition requiring earlier intervention. Amira Field RDN, CHRISTIANNE Clinical Dietitian Extension: [phone] [employer] * Ancillary Progress Note - Sean Abreu, SALES APPRENTICE - 08/21/2024 10:33 AM EDT PROGRESS NOTE - Physical Therapy [facility] [address] Name: Kennedy Davis [place] [facility] Date: 08/21/2024 Time: 10:33 AM Kennedy Davis is a/an 78 year old male. Patient Status: Inpatient Insurance: Payor: [employer] Plan: [facility] CLASSIC 1 PART D - Product Type: *No Product type* Payor: [facility] Plan: [facility] Product Type: *No Product type* Patient Seen: at bedside, nursing cleared patient for therapy Patient Identified By: Name, ID Band and Date Diagnosis: left neck cutaneous SSCa s/p wide excision, left neck dissection and reconstruction withleft pectoralis major flap and split thickness graft (08/21/241032) Status of treatment: Treatment completed (08/21/241032) Orders: PT evaluation and treatment (08/21/241032) Weight Bearing Status: Weight bearing as tolerated (08/21/241032) Precautions: Alarms;Falls;Safety;Skin (drain) (08/21/241032) Total Treatment Time--free text: 18 (08/21/241032) Subjective: "I should be going home soon." Pain: Patient has complaints of pain. Pain located back pain. 05/17 Staff Notified P.T. Bed Mobility Supine-Sit: Supervision (08/21/241032) Transfers Sit-Stand: Supervision (08/21/241032) Stand-Sit: Supervision (08/21/241032) Ambulation: Distance ambulated (feet): 175 x2 Assistive Device: Rolling walker Assist: Supervision Stair Training: Number of stairs: 3 Number of handrails: 2 Level of Assistance: Contact Guard Assistance Balance Sit (Static): Fair (08/21/241032) Sit (Dynamic): Fair (08/21/241032) Stand (Static): Fair (08/21/241032) Stand (Dynamic): Fair (08/21/241032) Patient and or Family Goal(s): to get well and to return home Topic of Education: Safety with mobility, Stair training, and Fall prevention Method of Education: Verbal discussion and explanation provided to patient: verbalized understanding and or agreement of this information Treatment Provided: Therapeutic Activities 8 minutes: bed mobility training transfer training Gait Training 10 minutes: gait training with rolling walker stair training Alarm Status Patient positioned in: Chair (08/21/241032) With: Pressure pad alarm intact and functioning and call nunez in reach (08/21/241032) Patient Education Review of Precautions: Safety;Fall (08/21/241032) Safety Awareness: Patient verbalizes insight of current deficits;Patient demonstrates carryover of insight during functional tasks (08/21/241032) Preferred learning method: Combination (08/21/241032) Barriers to learning: Medical Status (08/21/241032) Method of Education: Verbalized to patient (08/21/241032) Assessment: Patient found supine in bed, awake and alert on arrival. Patient transitioned from supine to sit, transferred from sit to stand, and ambulated 175' x 2 using a Rolling Walker under Supervision. Patient ascended/descended 3 steps using 2 rails with Contact Guard Assistance. Patient returned to room and was left sitting in bedside chair, alarm activated and call nunez within reach. Please consider home with post-acute care services which may include home health or outpatient therapy. The level of care will be determined in collaboration with the patient, family/caregiver and care team members. Deficits requiring P.T. treatment needs: Safety;Mobility;Balance;Weakness;Endurance;Lower extremitystrength (08/21/24 103) Equipment needs: No device (08/15/24 1501) Plan: Continue with current treatment plan established on evaluation. AM PAC Score with Stairs: 18. * Care Plan - Christina Bhatia RN - 08/21/2024 4:37 AM EDT Clinical Goal(s): maintain safety and comfort (08/20/24 2300) Possible barriers to meeting goal(s)/advancing plan of care: wound healing, pain Stability of the patient: Moderately unstable - medium risk of patient condition declining or worsening Summary regarding today's goal(s): Met: safety and comfort maintained Recommendations: hourly rounding, frequent reposition, ADL assisting * Care Plan - Rajani Gonzalez LPN - 08/20/2024 5:29 PM EDT Clinical Goal(s): pt will remain free of falls/injury this shift. (08/20/24 0656) Possible barriers to meeting goal(s)/advancing plan of care: pt condition Stability of the patient: Moderately stable - low risk of patient condition declining or worsening Summary regarding today's goal(s): Met: pt remained free of falls/injury this shift. Recommendations: hourly rounds & safety checks completed. Bed & chair alarms on and functioning. * Progress Notes - Post-[employer] - Eladio Kim MD - 08/20/2024 10:24 AM EDT Progress Note - Otolaryngology [facility] [address] Name: Kennedy Davis [place] [facility] Date: 08/20/2024 Time: 10:24 AM Subjective: No acute events overnight Remains afebrile Pain is controlled No other complaints this morning Principal Problem: SCC (squamous cell carcinoma) (POA: Yes) Active Problems: Essential hypertension (POA: Yes) Overview: ICD-10 update of inactive term Gastroesophageal reflux disease without esophagitis (POA: Yes) HTN, goal below 140/90 (POA: Yes) Dyslipidemia, goal LDL below 70 (POA: Yes) Acquired hypothyroidism (POA: Yes) Paroxysmal atrial fibrillation (HCC) (POA: Yes) Chronic anticoagulation (POA: Yes) CKD (chronic kidney disease) stage 4, GFR 15-29 ml/min (HCC) (POA: Yes) Atherosclerotic heart disease of [place] coronary artery without angina pectoris (POA: Yes) COPD, moderate (HCC) (POA: Yes) Overview: Per COPD GOLD Classification 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) (POA: Yes) Chronic gout due to renal impairment of multiple sites without tophus (POA: Yes) Post-operative state (POA: Yes) Postoperative anemia due to acute blood loss (POA: Yes) Hematoma of left chest wall (POA: No) LIZZ (acute kidney injury) (HCC) (POA: No) POA = Present On Admission Objective: Vital Signs Last 24 Hours: Systolic BP: Most Recent Systolic BP Av.9 mmHg Min: 96 mmHg Max: 128 mmHg Temperature: Most Recent Temperature Av.8 C Min: 36.5 C Max: 37.11 C Pulse: Pulse Av.1 Min: 63 Max: 87 Respirations: Resp Av.7 Min: 16 Max: 18 SpO2: SpO2 Av.7 % Min: 96 % Max: 99 % Physical Examination: No acute distress Left neck with pec flap and skin graft, intact Left neck incision c/d/i with caro Expected pec flap bulge over left clavicle Left pec flap harvest site closed with caro, no swelling Left chest pressure dressing, removed LETY x1 in chest with serosanguinous output Left thigh split thickness skin graft harvest site dressed with telfa and tegaderm Labs: Hgb 7.1 (6.4) Impression: Kennedy Davis is a 78 year old man with 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 Went to the OR twice 08/13 for chest wall hematoma evacuation. Has required 2 transfusions for acute blood loss anemia. Plan: Will trend Hgb Appreciate medicine recs Currently holding eliquis Okay for diet No flap checks required DVT ppx LETY drains to bulb suction No ties or pressure around neck No ice to neck Aquaphor to skin graft site and neck incision TID Reinforce tegaderm dressing on left leg for saturation PRN Anticipate discharge tomorrow if drain able to be removed and hgb continues to trend upwards Patient was seen with Dr. Juyd Cisse, Otolaryngology - Head and Neck Surgery Chief Resident 08/20/2024 10:26 AM I saw and evaluated the patient today. I have reviewed the resident/fellow physician note and agree. Eladio Kim MD 08/20/2024 11:41 AM * Care Plan - Christina Bhatia RN - 08/20/2024 4:09 AM EDT Clinical Goal(s): maintain safety and comfort (08/19/24 2300) Possible barriers to meeting goal(s)/advancing plan of care: wound healing, pain, low blood counts Stability of the patient: Moderately unstable - medium risk of patient condition declining or worsening Summary regarding today's goal(s): Met: safety and comfort maintained Recommendations: hourly rounding, pain management, turn frequent * Progress Notes - Post-Op Global - Eladio Kim MD - 08/19/2024 9:34 AM EDT Progress Note - Otol[place] [facility] [address] Name: Kennedy Davis [place] [facility] [facility] Date: 08/19/2024 Time: 9:34 AM Subjective: No concerns from patient Feels well Tolerating diet Principal Problem: SCC (squamous cell carcinoma) (POA: Yes) Active Problems: Essential hypertension (POA: Yes) Overview: ICD-10 update of inactive term Gastroesophageal reflux disease without esophagitis (POA: Yes) HTN, goal below 140/90 (POA: Yes) Dyslipidemia, goal LDL below 70 (POA: Yes) Acquired hypothyroidism (POA: Yes) Paroxysmal atrial fibrillation (HCC) (POA: Yes) Chronic anticoagulation (POA: Yes) CKD (chronic kidney disease) stage 4, GFR 15-29 ml/min (HCC) (POA: Yes) Atherosclerotic heart disease of [place] coronary artery without angina pectoris (POA: Yes) COPD, moderate (HCC) (POA: Yes) Overview: Per COPD GOLD Classification 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) (POA: Yes) Chronic gout due to renal impairment of multiple sites without tophus (POA: Yes) Post-operative state (POA: Yes) Postoperative anemia due to acute blood loss (POA: Yes) Hematoma of left chest wall (POA: No) LIZZ (acute kidney injury) (HCC) (POA: No) POA = Present On Admission Objective: Vital Signs Last 24 Hours: Systolic BP: Most Recent Systolic BP Av.1 mmHg Min: 100 mmHg Max: 129 mmHg Temperature: Most Recent Temperature Av.7 C Min: 36.39 C Max: 37 C Pulse: Pulse Av.1 Min: 58 Max: 81 Respirations: Resp Av.7 Min: 16 Max: 18 SpO2: SpO2 Av.3 % Min: 98 % Max: 100 % Physical Examination: No acute distress Left neck with pec flap and skin graft, intact Left neck incision c/d/i with caro Expected pec flap bulge over left clavicle Left pec flap harvest site closed with caro, no swelling Left chest pressure dressing, removed LETY x2 in chest with serosanguinous output, lower LETY removed Left thigh split thickness skin graft harvest site dressed with telfa and tegaderm Labs: Hgb 6.8 (6.7) Impression: Kennedy Davis is a 78 year old man with 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 Went to the OR twice 08/13 for chest wall hematoma evacuation. Has required 2 transfusions for acute blood loss anemia. Plan: Will trend Hgb Appreciate medicine recs Currently holding eliquis Okay for diet No flap checks required DVT ppx LETY drains to bulb suction No ties or pressure around neck No ice to neck Aquaphor to skin graft site and neck incision TID Reinforce tegaderm dressing on left leg for saturation PRN Patient was seen with Dr. Judy Cameron MD Otolaryngology - Head and Neck Surgery Resident 08/19/2024 9:35 AM I saw and evaluated the patient 08-19-2024. I have reviewed the resident/fellow physician note and agree. * Care Plan - Ekaterina Wilson RN - 08/19/2024 6:51 AM EDT Clinical Goal(s): pt will be free from falls (08/19/24 0000) Possible barriers to meeting goal(s)/advancing plan of care: patient's condition Stability of the patient: Moderately stable - low risk of patient condition declining or worsening Summary regarding today's goal(s): Met: free from falls Recommendations: continue fall precautions * Care Plan - Trinidad Irene RN - 08/18/2024 7:10 PM EDT Clinical Goal(s): patient will remain free from falls/injury this shift (08/18/24 0800) Possible barriers to meeting goal(s)/advancing plan of care: ambulatory dysfunction Stability of the patient: Moderately stable - low risk of patient condition declining or worsening Summary regarding today's goal(s): Met: patient remained free from falls this shift Recommendations: continue with plan o care * Ancillary Progress Note - Sean Abreu PTA - 08/18/2024 8:18 AM EDT PROGRESS NOTE - Physical Therapy [facility] [address] Name: Kennedy Davis [place] [facility] Date: 08/18/2024 Time: 8:18 AM Kennedy Davis is a/an 78 year old male. Patient Status: Inpatient Insurance: Payor: [facility] Plan: [facility] CLASSIC 1 PART D MC-LD Product Type: *No Product type* Payor: [facility] Plan: [facility] Product Type: *No Product type* Patient Seen: at bedside, nursing cleared patient for therapy Patient Identified By: Name, ID Band and Date Diagnosis: left neck cutaneous SSCa s/p wide excision, left neck dissection and reconstruction withleft pectoralis major flap and split thickness graft (08/18/24817) Status of treatment: Treatment completed (08/18/24817) Orders: PT evaluation and treatment (08/18/24817) Weight Bearing Status: Weight bearing as tolerated (08/18/24817) Precautions: Alarms;Falls;Safety;Skin (drain) (08/18/24817) Total Treatment Time--free text: 18 (08/18/24817) Subjective: Patient agreeable to mobilize with PT Pain: No complaints of pain P.T. Bed Mobility Supine-Sit: Minimal Assistance (08/18/24817) Transfers Sit-Stand: Supervision (08/18/24817) Stand-Sit: Supervision (08/18/24817) Ambulation: Distance ambulated (feet): 175 Assistive Device: Rolling walker Assist: Contact Guard to Supervision Balance Sit (Static): Fair (08/18/24817) Sit (Dynamic): Fair (08/18/24817) Stand (Static): Fair (with Rolling Walker) (08/18/24817) Stand (Dynamic): (Fair-) (08/18/24817) Patient and or Family Goal(s): to get well and to return home Topic of Education: Safety with mobility, Use of assistive device, and Fall prevention Method of Education: Verbal discussion and explanation provided to patient: demonstrated the exercise and or task Treatment Provided: Therapeutic Activities 8 minutes: bed mobility training transfer training Gait Training 10 minutes: gait training with rolling walker Alarm Status Patient positioned in: Chair (08/18/24817) With: Pressure pad alarm intact and functioning and call nunez in reach (08/18/24817) Patient Education Review of Precautions: Safety;Fall (08/18/24817) Safety Awareness: Patient verbalizes insight of current deficits;Patient demonstrates carryover of insight during functional tasks (08/18/24817) Preferred learning method: Combination (08/18/24817) Barriers to learning: Medical Status (08/18/24817) Method of Education: Verbalized to patient (08/18/24817) Assessment: Patient found supine in bed, awake and alert on arrival. Patient required Minimal Assistance for supine to sit transition but was able to sit unsupported. Patient stood with Supervision before ambulating 175' using a Rolling Walker with Contact Guard to Close Supervision (no overt balance loss). Patient was assisted into bedside chair, alarm activated and call nunez within reach. Please consider post-acute care services which may include home health, correction, outpatient therapy or inpatient rehabilitation. The level of care will be determined in collaboration with patient, family/caregiver and care team members. Deficits requiring P.T. treatment needs: Safety;Mobility;Balance;Weakness;Endurance;Lower extremitystrength (08/18/24817) Equipment needs: No device (08/15/24 1501) Plan: Continue with current treatment plan established on evaluation. AM PAC Score with Stairs: 17. A portion of this AM-PAC assessment not scored based on functional assessment; rather clinical decision making utilized based on current findings and/or prior level of function. Please refer to future AM- PAC calculations of functional ability as they become available. * Ancillary Progress Note - Nova Orta RN - 08/18/2024 8:02 AM EDT CARE MANAGEMENT - ADULT TRANSITION NOTE [facility] [address] Name: Kennedy Davis [place] [facility] Date: 08/18/2024 Time: 8:02 AM Risk Stratification Risk Stratification Psycho Social / Medical Concerns Identified: Adjustment to illness/injury;New serious diagnosis;Chronic Kidney Disease;Multiple Comorbidities (08/11/24 150) Accessed [employer] to connect patients to social care resources: (as needed) (08/11/24 1508) OBRA or OPTIONS needed for placement: No (08/11/241507) Readmission Risk Score: 44.64 (08/18/24799) AM-PAC Score With Stairs : 13 (08/17/24799) Caregiver Information Patient Contacts Name Relation Home Work Karen Harmon Spouse [phone] Lula Colón Adult Child [phone] Transition of Care Checklist Transition of Care Checklist (aka Readmission Risk Score) Discharge Disposition: Home (08/11/241512) Home or Home w/Home Health: Complex (34-100%) (08/11/241512) Narrative: Patient was discussed during boost this AM. Per IDT, patient is not medically ready. Still monitoring labs, vitals and drain output. Plan is for drains to be removed prior to d/c. Currently uncertainof needs at time of d/c, patient is from home independently. CM will continue to follow. Anticipated Transportation at Discharge: family Patient/Family Expectations: home Transition Planning Transition Planning Transition Plan/Considerations: Needs uncertain at this time - Continue monitoring for needs (08/11/241512) [facility] Quality Rating provided to patient: No (08/11/241512) Repisodic Choice provided to patient: No (08/11/241512) Insurance Considerations: Precertification needed for Post-Acute Care;Prior authorization for medication;Therapy documentation needed for precert request (08/11/241512) Referral to Community Agency : N/A (08/11/241512) Post-Acute Care needs identified and Referrals Completed: Drains (08/11/241512) Additional Considerations: Care Management will continue to monitor and assist with discharge planning needs * Care Plan - Ekaterina Wilson RN - 08/18/2024 6:25 AM EDT Clinical Goal(s): pt will be free from falls (08/17/241999) Possible barriers to meeting goal(s)/advancing plan of care: patient's condition Stability of the patient: Moderately stable - low risk of patient condition declining or worsening Summary regarding today's goal(s): Met: free from falls Recommendations: continue fall precautions * Care Plan - Trinidad Irene RN - 08/17/2024 5:52 PM EDT Clinical Goal(s): patient will remain free from falls/injury this shift (08/17/24 0800) Possible barriers to meeting goal(s)/advancing plan of care: diagnosis Stability of the patient: Moderately stable - low risk of patient condition declining or worsening Summary regarding today's goal(s): Met: remained free from falls/injury this shioft Recommendations: continue with plan of care * Care Plan - Thang Stoner RN - 08/17/2024 4:26 AM EDT Clinical Goal(s): Patient will not fall during the shift (08/16/24 2300) Possible barriers to meeting goal(s)/advancing plan of care: Patient is tethered to medical equipment Stability of the patient: Moderately stable - low risk of patient condition declining or worsening Summary regarding today's goal(s): Patient did not fall during the shift Met: Goal is met Recommendations: Maintain fall precautions already in place * Care Plan - Marni Magana RN - 08/16/2024 10:03 PM EDT Clinical Goal(s): pt will remain free from injury this shift (08/16/24 0740) Possible barriers to meeting goal(s)/advancing plan of care: Weakness Stability of the patient: Moderately stable - low risk of patient condition declining or worsening Summary regarding today's goal(s): Met: Pt is free of injury Recommendations: Continue to follow fall precautions * Ancillary Progress Note - Bo Raman RN - 08/16/2024 12:26 PM EDT CARE MANAGEMENT - ADULT TRANSITION NOTE [facility] [address] Name: Kennedy Davis [place] [facility] Date: 08/16/2024 Time: 12:26 PM Risk Stratification Risk Stratification Psycho Social / Medical Concerns Identified: Adjustment to illness/injury;New serious diagnosis;Chronic Kidney Disease;Multiple Comorbidities (08/11/241507) Accessed [employer] to connect patients to social care resources: (as needed) (08/11/24 150) OBRA or OPTIONS needed for placement: No (08/11/241507) Readmission Risk Score: 42.01 (08/16/24 1201) AM-PAC Score With Stairs : 13 (08/16/24 0800) Caregiver Information Patient Contacts Name Relation Home Work Mobile Karen Davis Spouse [phone] EldonLula Adult Child [phone] Transition of Care Checklist Transition of Care Checklist (aka Readmission Risk Score) Discharge Disposition: Home (08/11/241512) Home or Home w/Home Health: Complex (34-100%) (08/11/241512) Narrative: Pt discussed in IDT Rounds today. Not medically ready Transferred out of ICU to [facility] Trending drain x3 output. Trending Hgb- 6.5 and 7.1 today. Regular diet PO Keflex. AMPAC= 14 Pt declined HH services. OP PT at [facility]. CM following for arising discharge needs. Please contact CM with any further concerns. Anticipated Transportation at Discharge: family Patient/Family Expectations: home Transition Planning Transition Planning Transition Plan/Considerations: Needs uncertain at this time - Continue monitoring for needs (08/11/241512) CMS Quality Rating provided to patient: No (08/11/241512) Repisodic Choice provided to patient: No (08/11/241512) Insurance Considerations: Precertification needed for Post-Acute Care;Prior authorization for medication;Therapy documentation needed for precert request (08/11/241512) Referral to Community Agency : N/A (08/11/241512) Post-Acute Care needs identified and Referrals Completed: Drains (08/11/241512) Additional Considerations: none Care Management will continue to monitor and assist with discharge planning needs * Ancillary Progress Note - Hannah Tatum RN - 08/15/2024 3:05 PM EDT CARE MANAGEMENT - ADULT TRANSITION NOTE [facility] [address] Name: Kennedy Davis [place] [facility] Date: 08/15/2024 Time: 3:06 PM Risk Stratification Risk Stratification Psycho Social / Medical Concerns Identified: Adjustment to illness/injury;New serious diagnosis;Chronic Kidney Disease;Multiple Comorbidities (08/11/24 150) Accessed [employer] to connect patients to social care resources: (as needed) (08/11/24 150) OBRA or OPTIONS needed for placement: No (08/11/241507) Readmission Risk Score: 42.2 (08/15/24 1201) AM-PAC Score With Stairs : 17 (08/14/24 1200) Caregiver Information Patient Contacts Name Relation Home Work Mobile Karen Davis Spouse [phone] Lula Colón Adult Child [phone] Transition of Care Checklist Transition of Care Checklist (aka Readmission Risk Score) Discharge Disposition: Home (08/11/241512) Home or Home w/Home Health: Complex (34-100%) (08/11/241512) Narrative: Pt discussed in IDT Boost and chart reviewed. Pt was active with Outpatient therapy withthe [facility] and would like to resume that therapy after discharge. Pt has declined IPR/SNF/HH services at this time. Pt states he has everything he needs for discharge home and daughter took contact information in case pt's needs change. Anticipated Transportation at Discharge: Family Patient/Family Expectations: Discharge home when stable to do so. Transition Planning Transition Planning Transition Plan/Considerations: Needs uncertain at this time - Continue monitoring for needs (08/11/241512) [facility] Quality Rating provided to patient: No (08/11/241512) Repisodic Choice provided to patient: No (08/11/241512) Insurance Considerations: Precertification needed for Post-Acute Care;Prior authorization for medication;Therapy documentation needed for precert request (08/11/241512) Referral to Community Agency : N/A (08/11/241512) Post-Acute Care needs identified and Referrals Completed: Drains (08/11/241512) Care Management will continue to monitor and assist with discharge planning needs * Ancillary Progress Note - Kylee Singleton, DPT - 08/15/2024 3:01 PM EDT PROGRESS NOTE - Physical Therapy [facility] [address] Name: Kennedy Davis [place] [facility] [facility] Date: 08/15/2024 Time: 1501 Kennedy Davis is a/an 78 year old male. Patient Status: Inpatient Insurance: Payor: [employer] Plan: [employer] CLASSIC 1 PART D MC-LD Product Type: *No Product type* Payor: [facility] Plan: 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 States he is a little tired. Pain: Patient has complaints of pain. Pain located L arm. 4-5/10 Transfers Sit-Stand: Minimal Assistance (x2) (08/15/24 1501) Stand-Sit: Minimal Assistance (08/15/24 150) Ambulation: Distance ambulated (feet): 30 feet x2 Assistive Device: Rolling walker Assist: Contact Guard, with flexed posture, and increased time to complete, decreased step length and height. Pt desatting to 83-85% while on 1L O2 and able to recover to >90% with cues for pursedlipped breathing and seated rest breaks. Chair follow provided Balance Sit (Static): Fair (in recliner) (08/15/24 150) Sit (Dynamic): Fair (in recliner) (08/15/24 150) Stand (Static): (fair-) (08/15/24 150) Stand (Dynamic): (fair-) (08/15/241500) Patient and or Family Goal(s): to get well and to return home Topic of Education: Breathing techniques, Safety with mobility, Goals/plan of care, and Fall prevention Method of Education: Verbal discussion and explanation provided to pt: verbalized understanding andor agreement of this information and demonstrated the exercise and or task Treatment Provided: Therapeutic Activities 15 minutes: transfer training Gait Training 10 minutes: gait training with rolling walker Alarm Status Patient positioned in: Chair (08/15/24 150) With: Pressure pad alarm intact and functioning and call nunez in reach (08/15/241500) Following session patient seated OOB in chair with chair alarm activated. Chair alarm (did not havecord to plug into call nunez system and/or room did not have port to plug cord into call nunez system). Patient's nurse was made aware. Patient Education Review of Precautions: Safety;Fall (08/15/241500) Safety Awareness: Patient verbalizes insight of current deficits;Patient demonstrates carryover of insight during functional tasks;Patient can communicate basic needs (08/15/24 150) Preferred learning method: Combination (08/15/24 150) Barriers to learning: Medical Status (08/15/241500) Method of Education: Verbalized to patient;Verbalized to family/caregiver (08/15/24 150) Assessment: Pt seen for treatment this date, agreeable to ambulation in hallway. Pt with increased L arm pain and limited by O2 saturation dropping, requiring pt to sit and needing cues for pursed lipped breathing to recover. Pt ambulated 30 feet x2 and performed sit to stand with minimal assist x2, needing increased assist due to difficulty pushing up with his L arm secondary to pain. Pt will benefit from continued PT plan of care to maximize his functional independence and mobility. Please consider post-acute care services which may include home health, correction, outpatient therapy or inpatient rehabilitation. The level of care will be determined in collaboration with patient, family/caregiver and care team members. Deficits requiring P.T. treatment needs: Safety;Mobility;Balance;Weakness;Endurance;Lower extremitystrength (08/15/24 1501) Equipment needs: No device (08/15/24 150) Plan: Continue with current treatment plan established on evaluation. AM PAC Score with Stairs: 14 A portion of this AM-PAC assessment not scored based on functional assessment due to fatigue, pain;rather clinical decision making utilized based on current findings and/or prior level of function. Please refer to future AM-PAC calculations of functional ability as they become available. * Ancillary Progress Note - Teresita Parada OTR/Billy - 08/15/2024 2:36 PM EDT PROGRESS NOTE - Occupational Therapy [facility] [address] Name: Kennedy Davis [place] [facility] Date: 08/15/2024 Time: 2:36 PM Kennedy Davis is a 78 year old male. Patient Status: Inpatient Insurance: Payor: [facility] Plan: [facility] [place] CLASSIC 1 PART D - Product Type: *No Product type* Payor: [facility] Plan: [facility] Product Type: *No Product type* Patient Seen: at bedside, nursing cleared patient for therapy Patient Identified By: Name, ID Band and Date Diagnosis: neck cancer (08/15/241435) Status of treatment: Treatment completed (08/15/241435) Orders: OT evaluation and treatment;OT OOB (08/15/241435) Weight Bearing Status: Weight bearing as tolerated (08/15/241435) Precautions: Alarms;Falls;Safety;A-line;Vitale (LETY drains) (08/15/241435) Total Treatment Time: 25 (08/15/241435) Subjective: Pt seated in recliner chair upon therapists arrival. Pt pleasant and agreeable to therapy services. Pain: Patient has complaints of pain. Pain located in neck region and throughout LUE. 4/10 at rest. Observations Consciousness: Alert (08/15/241435) Orientation: Oriented times 4 (08/15/241435) Psychosocial: Patient can communicate basic needs;Patient can converse in a social setting (08/15/241435) Sitting posture: Forward head;Rounded shoulders (08/15/241435) Standing posture: Forward head;Rounded shoulders (08/15/241435) Safety awareness: The Patient demonstrates carryover of insight during functional tasks.;The Patient verbalizes insight of current deficits. (08/15/241435) Other Findings Endurance: Functional activity;Fair (08/15/241435) Light touch sensation: LUE;RUE;Intact (08/15/241435) Coordination: RUE;LUE;Intact (08/15/241435) Tone: Normal tone (08/15/241435) Edema: Edema noted (08/15/241435) Extremity: BUE (08/15/241435) Current Functional Status: Activities of Daily Living: Self Care Able to provide self care: Yes (08/15/241435) Feeding: Supervision (Please comment) (for set-up assistance) (08/15/241435) Grooming: Supervision (Please comment) (to wipe nose when seated in recliner chair, supervision forset-up assistance) (08/15/241435) Dressing Lower Body: Dependent (to shady socks when seated in recliner chair) (08/15/241435) Functional Ambulation Assistive Device: Rolling walker (08/15/241435) Distance in feet:: 30 (+30) (08/15/241435) Level of Assistance: Contact Guard (08/15/241435) OT Transfers Sit-Stand: Minimal Assistance (x2) (08/15/241435) Stand-Sit: Minimal Assistance (08/15/241435) Balance Sit (Static): Fair (08/15/241435) Sit (Dynamic): Fair (-) (08/15/241435) Stand (Static): Fair (-) (08/15/241435) Stand (Dynamic): Fair (-) (08/15/241435) Patient Education Education Topic: Role of OT;Plan of care goals (08/15/241435) Review of Precautions: Safety;Fall (08/15/241435) Method of Education: Verbalized to patient (08/15/241435) Education Provided to: Patient (08/15/241435) Response to Education: Receptive and agreeable to education (08/15/241435) Barriers to learning: None (08/15/241435) Preferred learning method: Combination (08/15/241435) Alarm Status Patient positioned in: Chair (08/15/241435) With: Pressure pad alarm intact and functioning and call nunez in reach (08/15/241435) Treatment Provided: Therapeutic Activity: 25 minutes Deficits requiring O.T. treatment needs: ADL/self- care;Balance;Endurance;Functional mobility;IADL;Safety;Upper extremity strength;Weakness (08/15/241435) Assessment: Pt seen this date for OT treatment session. Pt seated in recliner chair upon therapistsarrival. Pt reports feeling "okay" this date, reporting 2 trips back to the OR were very "scary". Pt with increased L arm pain compared to evaluation, with decreased active ROM secondary to pain. Pt also noted with O2 saturation dropping upon therapists arrival while on RA. RN aware and placed pt on 1L NC. Pt was educated on deep breathing techniques, pt verbalized understanding and demonstrated good carryover throughout functional task during remainder of session. Pt was dependent to shady socks when seated in recliner chair secondary to overall medical status and increased pain with forward f unctional reaching. Pt completed sit <> stand transfers from recliner chair with min A x 2 secondary to needing increased assistance due to difficulty pushing up with his L arm secondary to pain. Pt ambulated 30 feet x2 with use of rolling walker with contact guard assistance to ensure safetydue to generalized weakness and slight instability. Pt requiring seated rest break between bouts of ambulation secondary to increased SOB and fatigue. Once returned to seated in recliner chair, pt able to complete self-feeding task with supervision for set- up assistance. Pt then politely declining further mobility at this time secondary to overall weakness and fatigue. ADL participation limited at this time secondary to recent surgery with multiple incisions, lines, and drains. Pt relieved seated in recliner chair, call nunez in reach, all needs met. Pt would benefit from continue skilled OT services to further increase strength, endurance, and independence in ADL/IADL tasks and facilitate asafe transition to the next level of care. Please consider post-acute care services which may include home health, correction, outpatient therapy or inpatient rehabilitation. The level of care will be determined in collaboration with patient, family/caregiver and care team members. Plan: Energy Conservation, Safety, Homemaking Skills, Bed mobility training, Functional Ambulation,Transfer training, Upper extremity strengthening, Balance activities, ADL training, and Endurance Anticipated Frequency (on eval): (1-5x/wk) (08/15/241435) Equipment Equipment used in Therapy: Rolling walker;Seat cushion (08/15/241435) AM-PAC Help From Another Person Eating Meals: A little (08/15/241435) Help From Another Person Taking Care of Personal Grooming: A little (08/15/241435) Help From Another Person To Put On/Take Off Upper Body Clothing: A lot (08/15/241435) Help From Another Person To Put On/Take Off Lower Body Clothing: Total (08/15/241435) Help From Another Person Toileting: Total (08/15/241435) Help From Another Person Bathing: A lot (08/15/241435) OT AM-PAC Score: 12 (08/15/241435) OT AM-PAC t-Scale Score: 30.6 (08/15/241435) A portion of this AM-PAC assessment not scored based on functional assessment, rather clinical decision making utilized based on current findings and/or prior level of function. Please refer to future AM-PAC calculations of functional ability as they become available. * Communication - Mimi Vazquez MD - 08/15/2024 2:52 AM EDT BRIEF ENT COMMUNICATION: Notified by SICU team at 229 that patient's Hgb is 6.8, which resulted on 2029. No significant change in vitals trend. No significant change in pain. Drain output minimal. Patient seen and examined.Last Hgb was <7 on 08/13, day of OR trips x 2. No fluctuance, no chest fullness appreciated. Drains stripped and appear to be functioning. No oozing around staple line. Expected left neck fullness from pec flap appears normal. Patient is in minimal pain to palpation with no major changes in exam at this time. Stable bruising around chest per nursing. - Recheck CBC at around 0600 prior to transfusion - keep pressure dressing in place for now Mimi Vazquez MD 08/15/2024 3:34 AM * Ancillary Progress Note - El Zhang RVT - 08/14/2024 3:54 PM EDT PROCEDURE - Vascular Lab [address] [address] Name: Kennedy Davis [place] [id number] Date: 08/14/2024 Time: 3:54 PM FINAL PHYSICIAN REPORT TO FOLLOW. PROCEDURE: Left side: Upper extremity venous duplex negative: no evidence of deep vein thrombosis TECH NAME: El Zhang RVT * Progress Notes - Post-Op Global - Vannessa Cameron MD - 08/14/2024 11:14 AM EDT Progress Note - Otolaryngology [address] [address] Name: Kennedy Davis [place] [facility] Date: 08/14/2024 Time: 11:14 AM Subjective: No further pec site swelling overnight No blood transfusions required since Wednesday morning Reports pain with pressure dressing Active Problems: SCC (squamous cell carcinoma) (POA: Unknown) Post-operative state (POA: Unknown) Postoperative anemia due to acute blood loss (POA: Unknown) POA = Present On Admission Objective: Vital Signs Last 24 Hours: Systolic BP: Most Recent Systolic BP Av.5 mmHg Min: 90 mmHg Max: 128 mmHg Temperature: Most Recent Temperature Av.4 C Min: 36.22 C Max: 38.39 C Pulse: Pulse Av.5 Min: 75 Max: 133 Respirations: Resp Av.6 Min: 15 Max: 52 SpO2: SpO2 Av.1 % Min: 92 % Max: 100 % Physical Examination: No acute distress Left neck with bolster dressing Left neck incision c/d/i with caro LETY x1 in neck Expected pec flap bulge over left clavicle Left pec flap harvest site closed with caro, no swelling LETY x2 in chest with minimal output Left thigh split thickness skin graft harvest site dressed with telfa and tegaderm Chest pressure dressing removed Impression: Kennedy Daivs is a 78 year old man with 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 Plan: NPO Finish 24 hours of unasyn No flap checks required Hold AC, may start DVT ppx LETY drains to bulb suction No ties or pressure around neck No ice to neck Bacitracin to left neck BID Reinforce tegaderm dressing on left leg for saturation PRN Notify ENT prior to any additional transfusions Patient to be discussed with Dr. Oly Cameron MD Otolaryngology - Head and Neck Surgery Resident 08/14/2024 11:17 AM * Ancillary Progress Note - Juan Manuel Tesfaye RDN - 08/14/2024 10:38 AM EDT CLINICAL NUTRITION CONSULT/PROGRESS NOTE [facility] [address] Name: Kennedy Davis [place] [facility] Date: 08/14/2024 Time: 10:38 AM How patient was identified (select 2): Medical record number and Name Discussed in interdisciplinary rounds: Argelia Kennedy Davis is a 78 year old male being seen for follow-up Primary Diagnosis: Cutaneous SCCa of left neck 08/10: Left neck composite resection including skin, underlying subcutaneous tissue and portion of left SCM muscle, left neck dissection (levels II-V) 08/13: Evacuation of left chest wall hematoma Other pertinent information: Patient is seen and examined at bedside. Return from OR. No nausea, vomiting and abdominal discomfort reported. Assessed by POWER DISTRIBUTOR and recommended regular diet with thin liquids. NUTRITION ASSESSMENT: Past medical/surgical history and medications reviewed. Food/Nutrition-Related History Diet: Regular Previously followed diet: regular/soft Food Allergies/Intolerances: No known Adult Energy Intake: No significant decrease Pertinent medications/vitamins/minerals/supplements: Isolyte, calcitriol, colace, Prilosec, Pertinent Biochemical Data: Latest Reference Range & Units 08/14/24 05:00 Phosphorus 2.5 - 4.8 mg/dL 2.1 (L) (L): Data is abnormally low -supplemented Nutrition-Focused Physical Findings: Appearance: Ill-appearing Respiratory support: Supplemental O2 Delivery: Room Air, None Nasal/Oral: Mastication, impaired and Swallow function, compromised or painful Digestive: No issues identified Cognition: Awake, alert Skin: Incision left cheek Nutrition Focused Physical Exam: NFPE completed on 08/11 Subcutaneous Fat Loss: No significant subcutaneous fat loss noted. Muscle Loss: No significant muscle loss noted. Edema Location: Other; Upper Extremities;Left (neck) (08/14/24799) Edema Assessment: +2 - Description (08/14/24799) Anthropometrics Measurements Height: 165.1 cm (5' 5") (08/10/242029) Admission weight: 69.3 kg (152 lb 12.5 oz) Weight: 72.8 kg (160 lb 7.9 oz) (08/14/24599) BMI: 25.64 (08/10/242029) Usual Body Weight: 68 -74 kg per EHR, 71.8 kg per pt [place] weight: 67.9 kg [place] Weight Based on BMI: 24.9 Interpretation of Weight Change Prior to Admission: No recent/significant weight change Weight Changes Since Admission: 3.5 kg wt gain (5%) since admission, + 2 edema noted. Nutrition Prescription: Energy needs: 25-30 Kcal/kg Kcal/day: 1725 - 2070 kcal Based on admission weight - 69 kg Protein needs: 1.0-1.2 gm/kg Protein: 69 -~83 gm Based on admission weight - 69 kg Fluid needs: 25 ml/kg Fluid: 1725 ml/day Based on admission weight - 69 kg Malnutrition: Malnutrition Present: No (08/11/24 1041) NUTRITION DIAGNOSIS: No nutrition diagnosis at this time. Goals: Patient to consume greater than >75 % of daily meals and >75% of daily supplements within 3-5days. NUTRITION INTERVENTION/PLAN: Continue current care plan Clinical Nutrition Recommendations: Diet: Continue current nutrition plan NUTRITION MONITORING AND EVALUATION: Nursing documentation flowsheets for percent meal intake Lab values warranting change with MNT Weight for trends Plan follow-up: Will follow and adjust nutrition plan of care as medical condition requires. Please contact for change(s) in patient condition requiring earlier intervention. Juan Manuel Tesfaye MS, BENJAMÍNN, LDN Clinical Dietitian [facility] text * Ancillary Progress Note - Ishan Cardona RN - 08/14/2024 8:34 AM EDT CARE MANAGEMENT - ADULT TRANSITION NOTE [facility] [address] Name: Kennedy Davis [place] [facility] Date: 08/14/2024 Time: 8:34 AM Risk Stratification Risk Stratification Psycho Social / Medical Concerns Identified: Adjustment to illness/injury;New serious diagnosis;Chronic Kidney Disease;Multiple Comorbidities (08/11/24 1508) Accessed [facility] to connect patients to social care resources: (as needed) (08/11/24 1508) OBRA or OPTIONS needed for placement: No (08/11/24 150) Readmission Risk Score: 45.87 (08/14/24 0801) AM-PAC Score With Stairs : 16 (08/12/24 0900) Caregiver Information Patient Contacts Name Relation Home Work Mobile DavisHollya Spouse [phone] Lula Colón Adult Child [phone] Transition of Care Checklist Transition of Care Checklist (aka Readmission Risk Score) Discharge Disposition: Home (08/11/241512) Home or Home w/Home Health: Complex (34-100%) (08/11/241512) Narrative: Patient not medically ready for discharge at this time per primary service. Trending hemoglobinCM will continue to follow as discharge needs evolve Anticipated Transportation at Discharge: Family Patient/Family Expectations: Return home Transition Planning Transition Planning Transition Plan/Considerations: Needs uncertain at this time - Continue monitoring for needs (08/11/241512) [facility] Quality Rating provided to patient: No (08/11/241512) Repisodic Choice provided to patient: No (08/11/241512) Insurance Considerations: Precertification needed for Post-Acute Care;Prior authorization for medication;Therapy documentation needed for precert request (08/11/241512) Referral to Community Agency : N/A (08/11/241512) Post-Acute Care needs identified and Referrals Completed: Drains (08/11/241512) Additional Considerations: Care Management will continue to monitor and assist with discharge planning needs * Communication - Yifan Perez MD - 08/13/2024 10:24 AM EDT Paged by nurse that chest drain output has been over 400 mL since returning to SICU after evacuation. Hypotensive to 80s systolic. Transfuse 1 unit PRBC and fluid bolus. Return to OR for repeat evacuation of hematoma. Yifan Perez MD Otolaryngology Resident * Progress Notes - Post-Op Global - Yumiko Gil MD - 08/13/2024 7:22 AM EDT Progress Note - Otolaryngology [facility] [address] Name: Kennedy Davis [place] [facility] Date: 08/13/2024 Time: 7:22 AM Subjective: Developed left pec flap harvest site fullness this morning Reported associated pain NPO since last night Active Problems: SCC (squamous cell carcinoma) (POA: Unknown) Post-operative state (POA: Unknown) Postoperative anemia due to acute blood loss (POA: Unknown) POA = Present On Admission Objective: Vital Signs Last 24 Hours: Systolic BP: Most Recent Systolic BP Av mmHg Min: 108 mmHg Max: 171 mmHg Temperature: Most Recent Temperature Av.8 C Min: 36.78 C Max: 37 C Pulse: Pulse Av.3 Min: 65 Max: 96 Respirations: Resp Av.2 Min: 15 Max: 32 SpO2: SpO2 Av.2 % Min: 88 % Max: 100 % Physical Examination: No acute distress Left neck with bolster dressing Left neck incision c/d/i with caro LETY x1 in neck Expected pec flap bulge over left clavicle Left pec flap harvest site closed with caro, area full suspicious for hematoma LETY x2 in chest with minimal output Left thigh split thickness skin graft harvest site dressed with telfa and tegaderm Impression: Kennedy Davis is a 78 year old man with 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 Plan: NPO OR today for evacuation of left chest hematoma Antibiotic prophylaxis for bolster dressing (keflex okay) No flap checks required Hold AC, may start DVT ppx LETY drains to bulb suction No ties or pressure around neck No ice to neck Bacitracin to left neck BID Reinforce tegaderm dressing on left leg for saturation PRN Return to ICU postoperatively Notify ENT prior to any additional transfusions Patient seen and examined with Dr. Gil. Yifan Perez MD Otolaryngology Resident I saw and evaluated the patient today. I have reviewed the resident/fellow physician note and agree. * Progress Notes - Post-Op Global - Yumiko Gil MD - 08/12/2024 9:59 AM EDT Progress Note - Otolaryngology [facility] [address] Name: Kennedy Davis [place] [facility] Date: 08/12/2024 Time: 9:59 AM Subjective: No issues reported overnight Some oozing from bolster site per nursing Feels well Active Problems: SCC (squamous cell carcinoma) (POA: Unknown) Post-operative state (POA: Unknown) Postoperative anemia due to acute blood loss (POA: Unknown) POA = Present On Admission Objective: Vital Signs Last 24 Hours: Systolic BP: Most Recent Systolic BP Av.7 mmHg Min: 92 mmHg Max: 170 mmHg Temperature: Most Recent Temperature Av C Min: 36.61 C Max: 37.61 C Pulse: Pulse Av.7 Min: 70 Max: 114 Respirations: Resp Av.6 Min: 17 Max: 35 SpO2: SpO2 Av.3 % Min: 88 % Max: 100 % Physical Examination: No acute distress Left neck with bolster dressing Left neck incision c/d/i with caro LETY x1 in neck Expected pec flap bulge over left clavicle Left pec flap harvest site c/d/i with caro LETY x2 in chest Left thigh split thickness skin graft harvest site dressed with telfa and tegaderm Impression: Kennedy Davis is a 78 year old man with 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 Plan: Antibiotic prophylaxis for bolster dressing (keflex okay) Regular diet No flap checks required Hold AC, may start DVT ppx LETY drains to bulb suction No ties or pressure around neck No ice to neck Bacitracin to left neck BID Reinforce tegaderm dressing on left leg for saturation PRN Remain in ICU Notify ENT prior to any additional transfusions Patient was seen and examined with Dr. Gil. Robinson Paniagua MD 08/12/2024 10:14 AM I saw and evaluated the patient 08/12/24. I have reviewed the resident/fellow physician note and agree. * Ancillary Progress Note - Shimko, Hannah Linda, RN - 08/11/2024 3:16 PM EDT CARE MANAGEMENT - ADULT INITIAL SCREENING [facility] [address] Name: Kennedy Davis [place] [facility] Date: 08/11/2024 Time: 3:16 PM Discussed patient with the interdisciplinary care team. This Raw Cheese Worker performed a chart review and met with pt and family at bedside to complete admission screen and assessed needs for transitionplanning. The caregivers homecare role and services were explained and emotional support was provided. 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 Prior Living Arrangements What was your living situation prior to admission/observation?: With Spouse (08/11/24 1508) Living Quarters: House (08/11/24 150) Number of steps to enter living quarters:: 3 JOEL from the back and 1 JOEL from the front (08/11/24 150) Do you have serious difficulty walking or climbing stairs? (5 years old or older): No (08/11/24 0815) History of falling: No (08/11/24 0800) Prior Level of Functioning Describe the patient's ability prior to admission/observation to perform ADLs: Performs independently (08/11/24 1508) Requires assistance with: Bathing (08/11/24 1508) Describe the patient's mobility status prior to admission: Patient ambulates independently;Patient requires assistance with ambulation (08/11/24 1508) Patient uses assistive device: Yes (08/11/24 150) If yes, choose:: Cane (08/11/24 150) Caregiver Information Patient Contacts Name Relation Home Work Mobile Karen Davis Spouse [phone] EldonLula Adult Child [phone] Risk Stratification/Psychosocial/Care Gaps Risk Stratification Psycho Social / Medical Concerns Identified: Adjustment to illness/injury;New serious diagnosis;Chronic Kidney Disease;Multiple Comorbidities (08/11/24 1508) Accessed [facility] to connect patients to social care resources: (as needed) (08/11/24 150) OBRA or OPTIONS needed for placement: No (08/11/24 150) Readmission Risk Score: 42.02 (08/11/24 1201) AM-PAC Score With Stairs : 6 (08/10/24 1544) Prior to Admission Services Services Prior to Admission SALES APPRENTICE Services (Services received within the last 30 days with exception, Psych within last two years): Durable Medical Equipment (08/11/241507) SALES APPRENTICE Durable Medical Equipment (DME) in home: Nebulizer;Oxygen (name) - Comment;Grab bars/Rails;Walker Rolling;Shower chair/bench;Cane (08/11/24 150) DME Name: [facility] (08/11/241507) [place] Dept[employer] (PDA) Waiver Program: N/A (08/11/241507) SALES APPRENTICE Transportation (Services received within the last 30 days): Patient drives self;Family/Friends Personal Vehicle;Medical Transportation (08/11/241507) Outpatient Raw Cheese Worker: Patient Care Team: Gabriela Boone RN as Medical Assistant Instructor (Registered Nurse) Patient/Family Expectations: Pt's goal is to return home with his when medically stable. CM will follow hospital course to monitor for discharge needs. For further screening information, please refer to the Care Management flow document. * Diagnostic Clarification - Vivi Mendoza MD - 08/11/2024 1:01 PM EDT - Patient required antibiotics for SSI prophylaxis The patient has been diagnosed with acute blood loss anemia with baseline chronic anemia. * Ancillary Progress Note - Mckayla Winn RRT - 08/10/2024 5:17 PM EDT PATIENT DRIVEN PROTOCOL - Respiratory Care Services [address] [address] Name: Kennedy Davis [place] [facility] Date: 08/10/2024 Time: 5:17 PM Patient Driven Protocol Summary: Initial evaluation performed. This Treatment Plan and medications will be reviewed by the Primary Care Team for any contraindications. Respiratory Care Treatment Plan Aerosol Therapy Treatment:: Inhaler(s) QDAY with Anoro Ellipta (Umeclidinium 62.5 mcg and Vilanterol 25 mcg inhalation powder) / 1 inhalation. to suppress bronchial inflammation and edema by the use of systemic steroid sparing therapy. Additional Aerosolized Treatments: Hand Held Nebulizer Tx BID with Albuterol Sulfate: Unit dose 0.083%. to reduce work of breathing and improve pulmonary gas exchange. Also cough and deep breath PRN. The patient will be re-evaluated: within 48 hours. The Triage Level is: (Assessment Score = 6 -10) Level 4. Triage Level Definitions: Level 1 Severe Respiratory/Airway Compromise Level 2 Moderate Respiratory/Airway Compromise or high risk for pulmonary complications Level 3 Mild Respiratory/Airway Compromise or moderate risk for pulmonary complications Level 4 Episodic Respiratory/Airway Compromise or low risk for pulmonary complications Level 5 No Respiratory/Airway Compromise Triage 1 Triage 2 Triage 3 Triage 4 Triage 5 greater than 20 16 - 20 11 - 15 6 - 10 0 - 5 Medical Record Assessment Clinical Findings Pulmonary Status: 3 - Pulm Impairment (acute or chronic) w/o exacerbation, or 1 - 2 rib fractures Surgical Status: 1 - General Surgery Chest X-Ray: 0 - Not Performed or performed greater than 3 days ago Assessment Score: 4 Patient Assessment Clinical Findings Respiratory Pattern: 0 - RR 12 - 20; Patient only gets breathless with strenuous exercise. Breath Sounds: 0 - Clear to auscultation Cough Effectiveness: 0 - Strong non-productive Sputum Production: 0 - No sputum production Level of Activity: 2 - Temporarily non-ambulatory O2 needed to keep SpO2 greater than or equal to 92%: 0 - Room Air Assessment Score: 2 Total Assessment Score: 6 Breath Sounds: Inspiratory and expiratory clear and diminished bilaterally.. Cough and Sputum: An effective cough produced no sputum... CXR: not performed. Vital Signs: Resp: 15 (08/10/24 1700) Pulse: 80 (08/10/24 1700) Temp: 36.9 C (98.4 F) (08/10/24 1600) BP: 162/91 (08/10/24 1511) SpO2: 92 % (08/10/24 1700) PFT: Minimal Predicted IC: .930 L. Patient unable to perform Inspiratory Capacity. Reason: sleepy from surgery Primary Service: Critical Care [place]. Admitting Diagnosis: Squamous cell carcinoma of neck [C44.42] SCC (squamous cell carcinoma) [C44.92] Pulmonary Diagnosis: COPD. Prescriptions/Home Medications/Durable Medical Equipment: anoro Qday. Albuterol PRN per EPIC Update- No re-eval- home reg, listed as PRN alb, pt takes BID. documented in this encounter Plan of Treatment Upcoming Encounters Date Type Department Care Team (Late st Contact Info) Description 08/31/2024 11:20 AM EDT Office Visit Nephrology, [facility] [address] [facility] [place], [place] [id number] Keisha Gunn MD [address] [place] [address] [place] [id number] 11/14/2024 1:15 PM EST Office Visit [facility] Surgery [facility] [address] [place] [address] Supriya Fernandes MD [address] [place] [address] 12/21/2024 1:30 PM EST Office Visit Dermatology, [facility] [place] [address] [place] [address] Malaika Guzman PA-C [address] [place] [id number] 01/22/2025 1:30 PM EDT PulmDiagnostic Pulmonary Function Lab [facility] [place] [address] [address] [address] [place], [address] [place] [address] 01/22/2025 2:00 PM EDT Office Visit Pulmonary Medicine [facility] [place] [address] [phone] Dominguez Aguilar MD [address] [place] [address] [id number] 02/05/2025 10:00 AM EDT Office Visit Rheumatology, [facility] [address] [place] [id number] Rafael Hernandez PA-C [address] [facility], [place] [address] 02/06/2025 1:30 PM EDT Office [address]iology, [address] [address] Cherry Warner PA-C [address] [place] [id number] Scheduled Orders Name Type Priority Associated Diagnoses Orde r Schedule URINALYSIS, REFLEX TO CULTURE (NOT FOR NEUTROPENIC PATIENTS) Lab Routine One Time f or 1 Occurrences starting 08/14/2024 until 08/14/2024 URINALYSIS, REFLEX TO CULTURE (CUP ONLY) Lab Routine Once for 1 Oc currences starting 08/14/2024 until 08/14/2024 URINALYSIS, REFLEX TO CULTURE Lab Routine Once for 1 Occur rences starting 08/14/2024 until 08/14/2024 CBC Lab Routine Hematoma of left chest wall, subsequent encounter Expected: 08/29/2024, Expires: 08/22/2025 Scheduled Procedures Name Priority Associated Diagnoses Date/Ti [...] encounter Medical Devices Implanted Type Area Manager People Device Identifier Shelf Expiration Date Model / Serial / Lot Mesh Perfix Plug Lg [id number] - [id number] Implanted:Qty : 1 on 02/07/2019 by Jonathan Correia DO at OR [facility] Right: Lelo KEBEDE BARD : DAVOL 09/04/2023 [id number] / / [id number] Cytal Wndmtx 1lyr [id number](150 Units) - [id number] - [id number] Implanted:Qty : 1 on 08/10/2024 by Lexie Aldridge MD [place] [facility] Left: Leg Upper [employer] [id number] 10/07/2025 [id number] / [id number] / [id number] Cytal Wndmtx 1lyr 7x10cm (70 Units) - [id number] - [id number] Implanted:Qty : 1 on 08/10/2024 by Lexie Aldridge MD [place] [facility] Left: Leg Upper [employer] [id number] 01/05/2026 [id number] / [id number] / [id number] documented as of this encounter Procedures Procedure Name Priority Date/Time Associated Diagnosis Comments CBC STAT 08/22/2024 1:56 PM EDT PHOSPHORUS STAT 08/22/2024 3:42 AM EDT MAGNESIUM STAT 08/22/2024 3:42 AM EDT BASIC METABOLIC PANEL Routine 08/21/2024 3:35 AM EDT PHOSPHORUS STAT 08/21/2024 3:35 AM EDT CBC Routine 08/21/2024 3:35 AM EDT MAGNESIUM STAT 08/21/2024 3:35 AM EDT CBC Routine 08/20/2024 8:47 AM EDT BASIC METABOLIC PANEL Add-on 08/20/2024 4:12 AM EDT PHOSPHORUS STAT 08/20/2024 4:12 AM EDT MAGNESIUM STAT 08/20/2024 4:12 AM EDT CBC Routine 08/19/2024 9:18 PM EDT PHOSPHORUS STAT 08/19/2024 7:46 AM EDT CBC Routine 08/19/2024 7:46 AM EDT MAGNESIUM STAT 08/19/2024 7:46 AM EDT CBC Routine 08/18/2024 9:55 PM EDT PHOSPHORUS STAT 08/18/2024 7:41 AM EDT CBC Routine 08/18/2024 7:41 AM EDT MAGNESIUM STAT 08/18/2024 7:41 AM EDT CBC STAT 08/18/2024 12:56 AM EDT EXTRA PINK TOP Routine 08/18/2024 12:54 AM EDT EXTRA TUBES Routine 08/18/2024 12:54 AM EDT CBC Routine 08/17/2024 11:30 PM EDT CBC Routine 08/17/2024 7:07 AM EDT BASIC METABOLIC PANEL Routine 08/17/2024 4:59 AM EDT PHOSPHORUS STAT 08/17/2024 4:59 AM EDT MAGNESIUM STAT 08/17/2024 4:59 AM EDT CBC Routine 08/16/2024 11:11 PM EDT CBC Routine 08/16/2024 11:22 AM EDT CBC Routine 08/16/2024 8:19 AM EDT BASIC METABOLIC PANEL Routine 08/16/2024 3:26 AM EDT PHOSPHORUS STAT 08/16/2024 3:26 AM EDT MAGNESIUM STAT 08/16/2024 3:26 AM EDT CBC Routine 08/15/2024 8:22 PM EDT BASIC METABOLIC PANEL Routine 08/15/2024 6:41 AM EDT PHOSPHORUS STAT 08/15/2024 6:41 AM EDT MAGNESIUM STAT 08/15/2024 6:41 AM EDT CBC STAT 08/15/2024 6:40 AM EDT HC COMPATIBILITY ELECTRONIC CROSSMATCH STAT 08/15/2024 2:35 AM EDT CBC Routine 08/14/2024 8:30 PM EDT VASC DUPLEX VENOUS UE UNILAT Routine 08/14/2024 3:54 PM EDT Generalized edema US EXTREMITY, NON-VASCULAR LIMITED Routine 08/14/2024 2:24 PM EDT Encounter for examination of blood pressure without abnormal findings BASIC METABOLIC PANEL Routine 08/14/2024 5:00 AM EDT PHOSPHORUS STAT 08/14/2024 5:00 AM EDT LACTATE STAT 08/14/2024 5:00 AM EDT CBC Routine 08/14/2024 5:00 AM EDT MAGNESIUM STAT 08/14/2024 5:00 AM EDT CBC Routine 08/14/2024 12:32 AM EDT CBC Routine 08/13/2024 6:50 PM EDT CBC STAT 08/13/2024 2:08 PM EDT TRANSFUSE PACKED RED BLOOD CELLS Routine 08/13/2024 11:25 AM EDT BLOOD GAS WITH CHEMISTRY, POINT OF CARE OREN 08/13/2024 11:18 AM EDT TEG (THOMROBOELASTOGRAPH) PANEL Routine 08/13/2024 10:50 AM EDT TEG (THROMBOELASTOGRAPH), HEPARINASE Routine 08/13/2024 10:50 AM EDT TEG (THROMBOELASTOGRAPH) Routine 08/13/2024 10:50 AM EDT TRANSFUSE PACKED RED BLOOD CELLS Routine 08/13/2024 10:40 AM EDT DRAIN NECK/CHEST ABSCESS/HEMATOMA 08/13/2024 10:21 AM EDT Hematoma HC COMPATIBILITY ELECTRONIC CROSSMATCH Routine 08/13/2024 10:15 AM EDT CBC STAT 08/13/2024 9:46 AM EDT HC COMPATIBILITY ELECTRONIC CROSSMATCH STAT 08/13/2024 8:00 AM EDT TYPE AND SCREEN STAT 08/13/2024 7:17 AM EDT CBC STAT 08/13/2024 7:17 AM EDT DRAIN NECK/CHEST ABSCESS/HEMATOMA 08/13/2024 7:00 AM EDT Hematoma BASIC METABOLIC PANEL Routine 08/13/2024 4:32 AM EDT CBC Routine 08/13/2024 4:32 AM EDT CBC Routine 08/12/2024 11:40 PM EDT CBC Routine 08/12/2024 5:24 PM EDT CBC Routine 08/12/2024 12:20 PM EDT TEG (THOMROBOELASTOGRAPH) PANEL Routine 08/12/2024 5:47 AM EDT TEG (THROMBOELASTOGRAPH), HEPARINASE Routine 08/12/2024 5:47 AM EDT TEG (THROMBOELASTOGRAPH) Routine 08/12/2024 5:47 AM EDT BASIC METABOLIC PANEL Routine 08/12/2024 5:32 AM EDT PT INR Routine 08/12/2024 5:32 AM EDT PHOSPHORUS Add-on 08/12/2024 5:32 AM EDT CBC Routine 08/12/2024 5:32 AM EDT MAGNESIUM Add-on 08/12/2024 5:32 AM EDT TRANSFUSE PACKED RED BLOOD CELLS Routine 08/12/2024 2:00 AM EDT HC COMPATIBILITY ELECTRONIC CROSSMATCH STAT 08/12/2024 1:40 AM EDT CBC Routine 08/12/2024 12:06 AM EDT CBC Routine 08/11/2024 5:32 PM EDT TRANSFUSE PLASMA Routine 08/11/2024 3:10 PM EDT TRANSFUSE CRYOPRECIPITATE STAT 08/11/2024 2:53 PM EDT HC FRESH FROZEN PLASMA W/I 8 HRS EA UNIT Routine 08/11/2024 2:05 PM EDT HC CRYOPRECIPITATE EACH UNIT STAT 08/11/2024 1:50 PM EDT TRANSFUSE PACKED RED BLOOD CELLS Routine 08/11/2024 12:59 PM EDT TEG (THOMROBOELASTOGRAPH) PANEL Routine 08/11/2024 12:00 PM EDT TEG (THROMBOELASTOGRAPH), HEPARINASE Routine 08/11/2024 12:00 PM EDT TEG (THROMBOELASTOGRAPH) Routine 08/11/2024 12:00 PM EDT CBC Routine 08/11/2024 12:00 PM EDT HC COMPATIBILITY ELECTRONIC CROSSMATCH Routine 08/11/2024 11:00 AM EDT CBC STAT 08/11/2024 8:54 AM EDT TRANSFUSE PACKED RED BLOOD CELLS Routine 08/11/2024 6:05 AM EDT HC COMPATIBILITY ELECTRONIC CROSSMATCH STAT 08/11/2024 5:40 AM EDT BASIC METABOLIC PANEL Routine 08/11/2024 5:08 AM EDT PHOSPHORUS Routine 08/11/2024 5:08 AM EDT CBC Routine 08/11/2024 5:08 AM EDT MAGNESIUM Routine 08/11/2024 5:08 AM EDT LACTATE STAT 08/11/2024 2:06 AM EDT CULTURE, BLOOD STAT 08/10/2024 11:34 PM EDT CULTURE, BLOOD Routine 08/10/2024 11:30 PM EDT TEG (THOMROBOELASTOGRAPH) PANEL STAT 08/10/2024 11:06 PM EDT TEG (THROMBOELASTOGRAPH), HEPARINASE STAT 08/10/2024 11:06 PM EDT TEG (THROMBOELASTOGRAPH) STAT 08/10/2024 11:06 PM EDT CBC Routine 08/10/2024 11:06 PM EDT URINALYSIS, REFLEX TO CULTURE STAT 08/10/2024 11:01 PM EDT URINALYSIS, REFLEX TO CULTURE (CUP ONLY) STAT 08/10/2024 11:01 PM EDT URINALYSIS, REFLEX TO CULTURE (NOT FOR NEUTROPENIC PATIENTS) STAT 08/10/2024 11:01 PM EDT CULTURE, URINE, QUANTITATIVE STAT 08/10/2024 11:01 PM EDT CBC Routine 08/10/2024 8:26 PM EDT MRSA SCREEN, PCR Routine 08/10/2024 4:41 PM EDT PROCALCITONIN Add-on 08/10/2024 3:53 PM EDT BASIC METABOLIC PANEL STAT 08/10/2024 3:53 PM EDT PT INR Routine 08/10/2024 3:53 PM EDT CBC STAT 08/10/2024 3:53 PM EDT GLUCOSE METER, POINT OF CARE OREN 08/10/2024 12:31 PM EDT GLUCOSE METER, POINT OF CARE OREN 08/10/2024 10:01 AM EDT SURGICAL PATHOLOGY STAT 08/10/2024 9: 40 AM EDT Squamous cell carcinoma of neck GLUCOSE METER, POINT OF CARE OREN 08/10/2024 6:51 AM EDT TYPE AND SCREEN STAT 08/10/2024 6:47 AM EDT WND REPR,LAYERD,NECK/DIGITS /GENIT,12.6-20CM 08/10/2024 6:40 AM EDT Squamous cell carcinoma of neck ADJACENT TISSUE TRANS >10SQCM TRUNK 08/10/2024 6:40 AM EDT Squamous cell carcinoma of neck SKIN SPLIT GRAFT, FACE/NECK/EARS 08/10/2024 6:40 AM EDT Squamous cell carcinoma of neck Muscle, Myocutaneous, or Fasciocut Flap; Head and Neck w/Pedicle 08/10/2024 6:40 AM EDT Squamous cell carcinoma of neck BIOPSY OF NECK/CHEST 08/10/2024 6:40 AM EDT Squamous cell carcinoma of neck REMOVAL OF NECK LYMPH NODES 08/10/2024 6:40 AM EDT Squamous cell carcinoma of neck documented in this encounter Results * (ABNORMAL) CBC (08/22/2024 1:56 PM EDT) WBC 10.16 4.00 - 10.80 K/uL 08/22/2024 2:23 PM EDT LABORATORY [facility] RBC 2.32 4.50 - 5.25 M/uL 08/22/2024 2:23 PM EDT LABORATORY [facility] HGB 7.6(L) 14.0 - 16.8 g/dL 08/22/2024 2:23 PM EDT LABORATORY [facility] HCT 26.2(L) 40.0 - 48.4 % 08/22/2024 2:23 PM EDT LABORATORY [facility] MCV 112.9 82.0 - 99.5 fL 08/22/2024 2:23 PM EDT LABORATORY [facility] MCH 32.8 27.0 - 34.0 pg 08/22/2024 2:23 PM EDT LABORATORY [facility] MCHC 29.0 32.0 - 36.0 g/dL 08/22/2024 2:23 PM EDT LABORATORY [facility] RDW 20.8 11.5 - 15.5 % 08/22/2024 2:23 PM EDT LABORATORY [facility] PLT 236 140 - 400 K/uL 08/22/2024 2:23 PM EDT LABORATORY [facility] MPV 11.1 6.6 - 11.1 fL 08/22/2024 2:23 PM EDT LABORATORY C nRBCs 0 <=0 /100 WBCs 08/22/2024 2:23 PM EDT LABORATORY G[facility] Blood Venous blood specimen / Unknown Venipuncture / Unknown 08/22/2024 1:56 PM EDT 08/22/2024 2:14 PM EDT Vannessa Cameron MD LAB BLOOD ORDERABL ES Performing Organization Address [facility]/ZIP Co de Phone Number LAB[facility]ATORY [facility] [address] [place] [address] * PHOSPHORUS (08/22/2024 3:42 AM EDT) Phosphorus 3.8 2.5 - 4.8 mg/dL 08/22/2024 4:18 AM EDT LABORATORY G[facility] Blood Venous blood specimen / Unknown Venipuncture / Unknown 08/22/2024 3:42 AM EDT 08/22/2024 3:51 AM EDT Elma CARBAJAL LAB BLOOD ORDE RABLES Performing Organization Address [facility] Co de Phone Number LAB[facility]ATORY [facility] [address] [place] [address] * MAGNESIUM (08/22/2024 3:42 AM EDT) Magnesium 1.9 1.5 - 2.6 mg/dL 08/22/2024 4:18 AM EDT LABORATORY C Blood Venous blood specimen / Unknown Venipuncture / Unknown 08/22/2024 3:42 AM EDT 08/22/2024 3:51 AM EDT Elma CARBAJAL LAB BLOOD ORDE RABLES Performing Organization Address [facility] Co de Phone Number LAB[facility]ATORY [facility] [address] [place] [address] * PHOSPHORUS (08/21/2024 3:35 AM EDT) Phosphorus 4.0 2.5 - 4.8 mg/dL 08/21/2024 4:49 AM EDT LABORATORY G[facility] Blood Venous blood specimen / Unknown Venipuncture / Unknown 08/21/2024 3:35 AM EDT 08/21/2024 4:03 AM EDT Elma CARBAJAL LAB BLOOD ORDMorro PUTNAM Performing Organization Address [facility]/ZIP Co de Phone Number LABORATORY [facility] [address] [place] [address] * MAGNESIUM (08/21/2024 3:35 AM EDT) Magnesium 2.0 1.5 - 2.6 mg/dL 08/21/2024 4:49 AM EDT LABORATORY G[facility] Blood Venous blood specimen / Unknown Venipuncture / Unknown 08/21/2024 3:35 AM EDT 08/21/2024 4:03 AM EDT Elma Farley RESULTS TECHNICIAN LAB BLOOD ORDMorro PUTNAM Performing Organization Address [facility]/ZIP Co de Phone Number LABORATORY [facility] [address] [place] [address] * (ABNORMAL) BASIC METABOLIC PANEL (08/21/2024 3:35 AM EDT) BUN 39(H) 6 - 20 mg/dL 08/21/2024 4:49 AM EDT LABORATORY [facility] CREATININE 3.3(H) 0.6 - 1.2 mg/dL 08/21/2024 4:49 AM EDT LABORATORY G[facility] EGFR 18(L) >=60 mL/min 08/21/2024 4:49 AM EDT LABORATORY GMC Comment:eGFR is calculated b ased on the CKD-EPI 2020 equation. SODIUM 137 135 - 146 mmol/L 08/21/2024 4:49 AM EDT LABORATORY G[facility] POTASSIUM 4.9 3.5 - 5.1 mmol/L 08/21/2024 4:49 AM EDT LABORATORY G[facility] CHLORIDE 107 98 - 107 mmol/L 08/21/2024 4:49 AM EDT LABORATORY G[facility] CO2 19(L) 22 - 32 mmol/L 08/21/2024 4:49 AM EDT LABORATORY G[facility] ANION GAP 11 7 - 15 mmol/L 08/21/2024 4:49 AM EDT LABORATORY G[facility] GLUCOSE 78 70 - 120 mg/dL 08/21/2024 4:49 AM EDT LABORATORY GMC CALCIUM 8.5 8.4 - 10.2 mg/dL 08/21/2024 4:49 AM EDT LABORATORY G[facility] Blood Venous blood specimen / Unknown Venipuncture / Unknown 08/21/2024 3:35 AM EDT 08/21/2024 4:03 AM EDT Vannessa Cameron MD LAB BLOOD ORDERABL ES LABORATORY [facility] [address] [place] [address] * (ABNORMAL) CBC (08/21/2024 3:35 AM EDT) WBC 9.84 4.00 - 10.80 K/uL 08/21/2024 4:16 AM EDT LABORATORY GMC RBC 2.07 4.50 - 5.25 M/uL 08/21/2024 4:16 AM EDT LABORATORY G[facility] HGB 6.9(L) 14.0 - 16.8 g/dL 08/21/2024 4:16 AM EDT LABORATORY G[facility] HCT 23.4(L) 40.0 - 48.4 % 08/21/2024 4:16 AM EDT LABORATORY G[facility] MCV 113.0 82.0 - 99.5 fL 08/21/2024 4:16 AM EDT LABORATORY [facility] MCH 33.3 27.0 - 34.0 pg 08/21/2024 4:16 AM EDT LABORATORY G[facility] MCHC 29.5 32.0 - 36.0 g/dL 08/21/2024 4:16 AM EDT LABORATORY [facility] RDW 19.4 11.5 - 15.5 % 08/21/2024 4:16 AM EDT LABORATORY G[facility] PLT 199 140 - 400 K/uL 08/21/2024 4:16 AM EDT LABORATORY GMC MPV 11.3 6.6 - 11.1 fL 08/21/2024 4:16 AM EDT LABORATORY GMC nRBCs 0 <=0 /100 WBCs 08/21/2024 4:16 AM EDT LABORATORY G[facility] Blood Venous blood specimen / Unknown Venipuncture / Unknown 08/21/2024 3:35 AM EDT 08/21/2024 4:03 AM EDT Vannessa Cameron MD LAB BLOOD ORDERABL ES LABORATORY [facility] [address] [place] [address] * (ABNORMAL) CBC (08/20/2024 8:47 AM EDT) WBC 10.20 4.00 - 10.80 K/uL 08/20/2024 9:10 AM EDT LABORATORY GMC RBC 2.11 4.50 - 5.25 M/uL 08/20/2024 9:10 AM EDT LABORATORY [facility] HGB 7.1(L) 14.0 - 16.8 g/dL 08/20/2024 9:10 AM EDT LABORATORY [facility] HCT 23.2(L) 40.0 - 48.4 % 08/20/2024 9:10 AM EDT LABORATORY [facility] MCV 110.0 82.0 - 99.5 fL 08/20/2024 9:10 AM EDT LABORATORY [facility] MCH 33.6 27.0 - 34.0 pg 08/20/2024 9:10 AM EDT LABORATORY G[facility] MCHC 30.6 32.0 - 36.0 g/dL 08/20/2024 9:10 AM EDT LABORATORY [facility] RDW 18.4 11.5 - 15.5 % 08/20/2024 9:10 AM EDT LABORATORY [facility] PLT 190 140 - 400 K/uL 08/20/2024 9:10 AM EDT LABORATORY GMC MPV 11.9 6.6 - 11.1 fL 08/20/2024 9:10 AM EDT LABORATORY GMC nRBCs 0 <=0 /100 WBCs 08/20/2024 9:10 AM EDT LABORATORY G[facility] Blood Venous blood specimen / Unknown Venipuncture / Unknown 08/20/2024 8:47 AM EDT 08/20/2024 8:57 AM EDT Vannessa Cameron MD LAB BLOOD ORDERABL ES Performing Organization Address City/[facility]/ZIP Co de Phone Number LAB[facility]ATORY [facility] [address] [place] [address] * (ABNORMAL) BASIC METABOLIC PANEL (08/20/2024 4:12 AM EDT) BUN 37(H) 6 - 20 mg/dL 08/20/2024 6:27 AM EDT LABORATORY [facility] CREATININE 3.4(H) 0.6 - 1.2 mg/dL 08/20/2024 6:27 AM EDT LABORATORY G[facility] EGFR 18(L) >=60 mL/min 08/20/2024 6:27 AM EDT LABORATORY GMC Comment:eGFR is calculated b ased on the CKD-EPI 2020 equation. SODIUM 139 135 - 146 mmol/L 08/20/2024 6:27 AM EDT LABORATORY GMC POTASSIUM 4.6 3.5 - 5.1 mmol/L 08/20/2024 6:27 AM EDT LABORATORY GMC CHLORIDE 111(H) 98 - 107 mmol/L 08/20/2024 6:27 AM EDT LABORATORY G[facility] CO2 19(L) 22 - 32 mmol/L 08/20/2024 6:27 AM EDT LABORATORY GMC ANION GAP 9 7 - 15 mmol/L 08/20/2024 6:27 AM EDT LABORATORY G[facility] GLUCOSE 85 70 - 120 mg/dL 08/20/2024 6:27 AM EDT LABORATORY G[facility] CALCIUM 8.2(L) 8.4 - 10.2 mg/dL 08/20/2024 6:27 AM EDT LABORATORY GMC Blood Venous blood specimen / Unknown Venipuncture / Unknown 08/20/2024 4:12 AM EDT 08/20/2024 4:44 AM EDT Myles Tay MD LAB BLOOD ORD ERABLES LABORATORY [facility] [address] [place] [address] * PHOSPHORUS (08/20/2024 4:12 AM EDT) Pathologist [facility] Phosphorus 3.3 2.5 - 4.8 mg/dL 08/20/2024 5:11 AM EDT LABORATORY GMC Blood Venous blood specimen / Unknown Venipuncture / Unknown 08/20/2024 4:12 AM EDT 08/20/2024 4:44 AM EDT Elma Stoutfatoumata KEBEDENP LAB BLOOD ORDMroro PUTNAM Performing Organization Address [facility]/ZIP Co de Phone Number LABORATORY [facility] [address] [place] [address] * MAGNESIUM (08/20/2024 4:12 AM EDT) [facility] Magnesium 2.1 1.5 - 2.6 mg/dL 08/20/2024 5:11 AM EDT LABORATORY [facility] Blood Venous blood specimen / Unknown Venipuncture / Unknown 08/20/2024 4:12 AM EDT 08/20/2024 4:44 AM EDT Elma Farley RESULTS TECHNICIAN LAB BLOOD ORDMorro PUTNAM Performing Organization Address [facility]/ZIP Co de Phone Number LABORATORY [facility] [address] [place] [address] * (ABNORMAL) CBC (08/19/2024 9:18 PM EDT) [facility] WBC 10.08 4.00 - 10.80 K/uL 08/19/2024 9:40 PM EDT LABORATORY [facility] RBC 1.96 4.50 - 5.25 M/uL 08/19/2024 9:40 PM EDT LABORATORY [facility] HGB 6.4(L) 14.0 - 16.8 g/dL 08/19/2024 9:40 PM EDT LABORATORY [facility] HCT 20.7(L) 40.0 - 48.4 % 08/19/2024 9:40 PM EDT LABORATORY [facility] MCV 105.6 82.0 - 99.5 fL 08/19/2024 9:40 PM EDT LABORATORY GMC MCH 32.7 27.0 - 34.0 pg 08/19/2024 9:40 PM EDT LABORATORY [facility] MCHC 30.9 32.0 - 36.0 g/dL 08/19/2024 9:40 PM EDT LABORATORY [facility] RDW 17.3 11.5 - 15.5 % 08/19/2024 9:40 PM EDT LABORATORY [facility] PLT 179 140 - 400 K/uL 08/19/2024 9:40 PM EDT LABORATORY GMC MPV 11.4 6.6 - 11.1 fL 08/19/2024 9:40 PM EDT LABORATORY [facility] nRBCs 0 <=0 /100 WBCs 08/19/2024 9:40 PM EDT LABORATORY G[facility] Blood Venous blood specimen / Unknown Venipuncture / Unknown 08/19/2024 9:18 PM EDT 08/19/2024 9:23 PM EDT Vannessa Cameron MD LAB BLOOD ORDERABL ES LABORATORY [facility] [address] [place] [address] * (ABNORMAL) CBC (08/19/2024 7:46 AM EDT) WBC 8.67 4.00 - 10.80 K/uL 08/19/2024 8:37 AM EDT LABORATORY G[facility] RBC 2.08 4.50 - 5.25 M/uL 08/19/2024 8:37 AM EDT LABORATORY [facility] HGB 6.8(L) 14.0 - 16.8 g/dL 08/19/2024 8:37 AM EDT LABORATORY GMC HCT 22.1(L) 40.0 - 48.4 % 08/19/2024 8:37 AM EDT LABORATORY [facility] MCV 106.3 82.0 - 99.5 fL 08/19/2024 8:37 AM EDT LABORATORY [facility] MCH 32.7 27.0 - 34.0 pg 08/19/2024 8:37 AM EDT LABORATORY [facility] MCHC 30.8 32.0 - 36.0 g/dL 08/19/2024 8:37 AM EDT LABORATORY [facility] RDW 17.2 11.5 - 15.5 % 08/19/2024 8:37 AM EDT LABORATORY [facility] PLT 190 140 - 400 K/uL 08/19/2024 8:37 AM EDT LABORATORY [facility] MPV 11.5 6.6 - 11.1 fL 08/19/2024 8:37 AM EDT LABORATORY [facility] nRBCs 0 <=0 /100 WBCs 08/19/2024 8:37 AM EDT LABORATORY C Blood Venous blood specimen / Unknown Venipuncture / Unknown 08/19/2024 7:46 AM EDT 08/19/2024 8:20 AM EDT Vannessa Cameron MD LAB BLOOD ORDERABL ES LABORATORY [facility] [address] [place] [address] * PHOSPHORUS (08/19/2024 7:46 AM EDT) Phosphorus 2.7 2.5 - 4.8 mg/dL 08/19/2024 8:54 AM EDT LABORATORY G[facility] Blood Venous blood specimen / Unknown Venipuncture / Unknown 08/19/2024 7:46 AM EDT 08/19/2024 8:20 AM EDT Elma CARBAJAL LAB BLOOD ORDE [place] LABORATORY [facility] [address] [place] [address] * MAGNESIUM (08/19/2024 7:46 AM EDT) Magnesium 2.1 1.5 - 2.6 mg/dL 08/19/2024 8:54 AM EDT LABORATORY [facility] Blood Venous blood specimen / Unknown Venipuncture / Unknown 08/19/2024 7:46 AM EDT 08/19/2024 8:20 AM EDT Elma CARBAJAL [facility] [address] [place] [address] * (ABNORMAL) CBC (08/18/2024 9:55 PM EDT) WBC 7.49 4.00 - 10.80 K/uL 08/18/2024 10:20 PM EDT LABORATORY [facility] RBC 2.07 4.50 - 5.25 M/uL 08/18/2024 10:20 PM EDT LABORATORY [facility] HGB 6.7(L) 14.0 - 16.8 g/dL 08/18/2024 10:20 PM EDT LABORATORY [facility] HCT 22.2(L) 40.0 - 48.4 % 08/18/2024 10:20 PM EDT LABORATORY [facility] MCV 107.2 82.0 - 99.5 fL 08/18/2024 10:20 PM EDT LABORATORY [facility] MCH 32.4 27.0 - 34.0 pg 08/18/2024 10:20 PM EDT LABORATORY [facility] MCHC 30.2 32.0 - 36.0 g/dL 08/18/2024 10:20 PM EDT LABORATORY [facility] RDW 16.5 11.5 - 15.5 % 08/18/2024 10:20 PM EDT LABORATORY [facility] PLT 175 140 - 400 K/uL 08/18/2024 10:20 PM EDT LABORATORY [facility] MPV 11.6 6.6 - 11.1 fL 08/18/2024 10:20 PM EDT LABORATORY [facility] nRBCs 0 <=0 /100 WBCs 08/18/2024 10:20 PM EDT LABORATORY [facility] Blood Venous blood specimen / Unknown Venipuncture / Unknown 08/18/2024 9:55 PM EDT 08/18/2024 10:04 PM EDT Vannessa Cameron MD LAB BLOOD ORDERABL ES [facility] [address] [place] [address] * (ABNORMAL) CBC (08/18/2024 7:41 AM EDT) WBC 5.38 4.00 - 10.80 K/uL 08/18/2024 8:03 AM EDT LABORATORY [facility] RBC 1.95 4.50 - 5.25 M/uL 08/18/2024 8:03 AM EDT LABORATORY [facility] HGB 6.4(L) 14.0 - 16.8 g/dL 08/18/2024 8:03 AM EDT LABORATORY [facility] HCT 20.7(L) 40.0 - 48.4 % 08/18/2024 8:03 AM EDT LABORATORY [facility] MCV 106.2 82.0 - 99.5 fL 08/18/2024 8:03 AM EDT LABORATORY [facility] MCH 32.8 27.0 - 34.0 pg 08/18/2024 8:03 AM EDT LABORATORY GM MCHC 30.9 32.0 - 36.0 g/dL 08/18/2024 8:03 AM EDT LABORATORY GM RDW 16.2 11.5 - 15.5 % 08/18/2024 8:03 AM EDT LABORATORY [facility] PLT 146 140 - 400 K/uL 08/18/2024 8:03 AM EDT LABORATORY [facility] MPV 11.8 6.6 - 11.1 fL 08/18/2024 8:03 AM EDT LABORATORY GM nRBCs 0 <=0 /100 WBCs 08/18/2024 8:03 AM EDT LABORATORY GM Blood Venous blood specimen / Unknown Venipuncture / Unknown 08/18/2024 7:41 AM EDT 08/18/2024 7:50 AM EDT Vannessa Cameron MD LAB BLOOD ORDERABL [facility] [address] [place] [address] * PHOSPHORUS (08/18/2024 7:41 AM EDT) Phosphorus 2.9 2.5 - 4.8 mg/dL 08/18/2024 8:20 AM EDT LABORATORY [facility] Blood Venous blood specimen / Unknown Venipuncture / Unknown 08/18/2024 7:41 AM EDT 08/18/2024 7:55 AM EDT Elma Jetgarth Miguelito CARBAJAL [facility] [address] [place] [address] * MAGNESIUM (08/18/2024 7:41 AM EDT) Magnesium 2.4 1.5 - 2.6 mg/dL 08/18/2024 8:20 AM EDT LABORATORY [facility] Blood Venous blood specimen / Unknown Venipuncture / Unknown 08/18/2024 7:41 AM EDT 08/18/2024 7:55 AM EDT Elma Yoan CARBAJAL LAB BLOOD [facility] [place] Performing Organization Address [facility]/ZIP Co de Phone Number [facility]ATORY [facility] [address] [place] [address] * (ABNORMAL) CBC (08/18/2024 12:56 AM EDT) WBC 5.44 4.00 - 10.80 K/uL 08/18/2024 1:34 AM EDT LABORATORY [facility] RBC 1.87 4.50 - 5.25 M/uL 08/18/2024 1:34 AM EDT LABORATORY [facility] HGB 6.0(LL) 14.0 - 16.8 g/dL 08/18/2024 1:34 AM EDT LABORATORY [facility] HCT 19.3(L) 40.0 - 48.4 % 08/18/2024 1:34 AM EDT LABORATORY [facility] MCV 103.2 82.0 - 99.5 fL 08/18/2024 1:34 AM EDT LABORATORY [facility] MCH 32.1 27.0 - 34.0 pg 08/18/2024 1:34 AM EDT LABORATORY [facility] MCHC 31.1 32.0 - 36.0 g/dL 08/18/2024 1:34 AM EDT LABORATORY [facility] RDW 16.0 11.5 - 15.5 % 08/18/2024 1:34 AM EDT LABORATORY [facility] PLT 129(L) 140 - 400 K/uL 08/18/2024 1:34 AM EDT LABORATORY [facility] MPV 11.8 6.6 - 11.1 fL 08/18/2024 1:34 AM EDT LABORATORY [facility] nRBCs 0 <=0 /100 WBCs 08/18/2024 1:34 AM EDT LABORATORY [facility] Blood Venous blood specimen / Unknown Venipuncture / Unknown 08/18/2024 12:56 AM EDT 08/18/2024 1:23 AM EDT Yifan Perez MD LAB BLOOD ORDERABL ES [facility] [address] [place] [address] * EXTRA PINK TOP (08/18/2024 12:54 AM EDT) Blood Venous blood specimen / Unknown Venipuncture / Unknown 08/18/2024 12:54 AM EDT 08/18/2024 1:25 AM EDT Sin Tovar DO LAB BLOOD ORDERA BLES [facility] [address] [place] [address] * (ABNORMAL) CBC (08/17/2024 11:30 PM EDT) WBC 5.43 4.00 - 10.80 K/uL 08/17/2024 11:50 PM EDT LABORATORY [facility] RBC 1.83 4.50 - 5.25 M/uL 08/17/2024 11:50 PM EDT LABORATORY [facility] HGB 5.9(LL) 14.0 - 16.8 g/dL 08/17/2024 11:50 PM EDT LABORATORY [facility] HCT 18.8(L) 40.0 - 48.4 % 08/17/2024 11:50 PM EDT LABORATORY [facility] MCV 102.7 82.0 - 99.5 fL 08/17/2024 11:50 PM EDT LABORATORY [facility] MCH 32.2 27.0 - 34.0 pg 08/17/2024 11:50 PM EDT LABORATORY [facility] MCHC 31.4 32.0 - 36.0 g/dL 08/17/2024 11:50 PM EDT LABORATORY [facility] RDW 15.9 11.5 - 15.5 % 08/17/2024 11:50 PM EDT LABORATORY [facility] PLT 127(L) 140 - 400 K/uL 08/17/2024 11:50 PM EDT LABORATORY [facility] MPV 11.5 6.6 - 11.1 fL 08/17/2024 11:50 PM EDT LABORATORY [facility] nRBCs 0 <=0 /100 WBCs 08/17/2024 11:50 PM EDT LABORATORY [facility] Blood Venous blood specimen / Unknown Venipuncture / Unknown 08/17/2024 11:30 PM EDT 08/17/2024 11:40 PM EDT Holger Bhatt MD LAB BLOOD ORDERABLES Performing Organization Address City/State/[facility] Co de Phone Number [facility]ATORY [facility] [address] [place] [address] * (ABNORMAL) CBC (08/17/2024 7:07 AM EDT) WBC 7.27 4.00 - 10.80 K/uL 08/17/2024 7:16 AM EDT LABORATORY [facility] RBC 2.16 4.50 - 5.25 M/uL 08/17/2024 7:16 AM EDT LABORATORY [facility] HGB 7.1(L) 14.0 - 16.8 g/dL 08/17/2024 7:16 AM EDT LABORATORY [facility] HCT 21.9(L) 40.0 - 48.4 % 08/17/2024 7:16 AM EDT LABORATORY [facility] MCV 101.4 82.0 - 99.5 fL 08/17/2024 7:16 AM EDT LABORATORY [facility] MCH 32.9 27.0 - 34.0 pg 08/17/2024 7:16 AM EDT LABORATORY [facility] MCHC 32.4 32.0 - 36.0 g/dL 08/17/2024 7:16 AM EDT LABORATORY [facility] RDW 15.9 11.5 - 15.5 % 08/17/2024 7:16 AM EDT LABORATORY [facility] PLT 120(L) 140 - 400 K/uL 08/17/2024 7:16 AM EDT LABORATORY [facility] MPV 12.1 6.6 - 11.1 fL 08/17/2024 7:16 AM EDT LABORATORY [facility] nRBCs 0 <=0 /100 WBCs 08/17/2024 7:16 AM EDT LABORATORY C Blood Venous blood specimen / Unknown Capillary / Unknown 08/17/2024 7:07 AM EDT 08/17/2024 7:12 AM EDT Holger Bhatt MD LAB BLOOD ORDERABLES Performing Organization Address City/[facility]/ZIP Co de Phone Number LABORATORY [facility] [address] [place] [address] * PHOSPHORUS (08/17/2024 4:59 AM EDT) Phosphorus 3.2 2.5 - 4.8 mg/dL 08/17/2024 5:33 AM EDT LABORATORY C Blood Venous blood specimen / Unknown Venipuncture / Unknown 08/17/2024 4:59 AM EDT 08/17/2024 5:06 AM EDT Elma CARBAJAL LAB BLOOD ORDE [place] Performing Organization Address [facility]/ZIP Co de Phone Number LABORATORY [facility] [address] [place] [address] * MAGNESIUM (08/17/2024 4:59 AM EDT) Magnesium 2.3 1.5 - 2.6 mg/dL 08/17/2024 5:33 AM EDT LABORATORY C Blood Venous blood specimen / Unknown Venipuncture / Unknown 08/17/2024 4:59 AM EDT 08/17/2024 5:06 AM EDT Elma CARBAJAL LAB BLOOD ORDE RABSHRADDHA LABORATORY [facility] [address] [place] [address] * (ABNORMAL) BASIC METABOLIC PANEL (08/17/2024 4:59 AM EDT) BUN 41(H) 6 - 20 mg/dL 08/17/2024 5:33 AM EDT LABORATORY [facility] CREATININE 3.3(H) 0.6 - 1.2 mg/dL 08/17/2024 5:33 AM EDT LABORATORY [facility] EGFR 19(L) >=60 mL/min 08/17/2024 5:33 AM EDT LABORATORY [facility] Comment:eGFR is calculated b ased on the CKD-EPI 2020 equation. SODIUM 137 135 - 146 mmol/L 08/17/2024 5:33 AM EDT LABORATORY [facility] POTASSIUM 4.8 3.5 - 5.1 mmol/L 08/17/2024 5:33 AM EDT LABORATORY [facility] CHLORIDE 105 98 - 107 mmol/L 08/17/2024 5:33 AM EDT LABORATORY [facility] CO2 18(L) 22 - 32 mmol/L 08/17/2024 5:33 AM EDT LABORATORY [facility] ANION GAP 14 7 - 15 mmol/L 08/17/2024 5:33 AM EDT LABORATORY [facility] GLUCOSE 84 70 - 120 mg/dL 08/17/2024 5:33 AM EDT LABORATORY [facility] CALCIUM 8.1(L) 8.4 - 10.2 mg/dL 08/17/2024 5:33 AM EDT LABORATORY [facility] Blood Venous blood specimen / Unknown Venipuncture / Unknown 08/17/2024 4:59 AM EDT 08/17/2024 5:06 AM EDT Holger Bhatt MD LAB BLOOD ORDERABLES LAB[facility]ATORY [facility] [address] [place] [address] * (ABNORMAL) CBC (08/16/2024 11:11 PM EDT) WBC 9.15 4.00 - 10.80 K/uL 08/16/2024 11:41 PM EDT LABORATORY [facility] RBC 2.27 4.50 - 5.25 M/uL 08/16/2024 11:41 PM EDT LABORATORY [facility] HGB 7.3(L) 14.0 - 16.8 g/dL 08/16/2024 11:41 PM EDT LABORATORY [facility] HCT 22.8(L) 40.0 - 48.4 % 08/16/2024 11:41 PM EDT LABORATORY [facility] MCV 100.4 82.0 - 99.5 fL 08/16/2024 11:41 PM EDT LABORATORY [facility] MCH 32.2 27.0 - 34.0 pg 08/16/2024 11:41 PM EDT LABORATORY [facility] MCHC 32.0 32.0 - 36.0 g/dL 08/16/2024 11:41 PM EDT LABORATORY [facility] RDW 16.0 11.5 - 15.5 % 08/16/2024 11:41 PM EDT LABORATORY [facility] PLT 127(L) 140 - 400 K/uL 08/16/2024 11:41 PM EDT LABORATORY [facility] MPV 12.3 6.6 - 11.1 fL 08/16/2024 11:41 PM EDT LABORATORY [facility] nRBCs 0 <=0 /100 WBCs 08/16/2024 11:41 PM EDT LABORATORY [facility] Blood Venous blood specimen / Unknown Venipuncture / Unknown 08/16/2024 11:11 PM EDT 08/16/2024 11:18 PM EDT Holger Bhatt MD LAB BLOOD ORDERABLES Performing Organization Address City/State/[facility] Co de Phone Number LABORATORY [facility] [address], [place] [id number] * (ABNORMAL) CBC (08/16/2024 11:22 AM EDT) WBC 11.26(H) 4.00 - 10.80 K/uL 08/16/2024 12:16 PM EDT LABORATORY [facility] RBC 2.17 4.50 - 5.25 M/uL 08/16/2024 12:16 PM EDT LABORATORY [facility] HGB 7.1(L) 14.0 - 16.8 g/dL 08/16/2024 12:16 PM EDT LABORATORY [facility] HCT 21.4(L) 40.0 - 48.4 % 08/16/2024 12:16 PM EDT LABORATORY [facility] MCV 98.6 82.0 - 99.5 fL 08/16/2024 12:16 PM EDT LABORATORY [facility] MCH 32.7 27.0 - 34.0 pg 08/16/2024 12:16 PM EDT LABORATORY [facility] MCHC 33.2 32.0 - 36.0 g/dL 08/16/2024 12:16 PM EDT LABORATORY [facility] RDW 15.9 11.5 - 15.5 % 08/16/2024 12:16 PM EDT LABORATORY [facility] PLT 115(L) 140 - 400 K/uL 08/16/2024 12:16 PM EDT LABORATORY [facility] MPV 12.7 6.6 - 11.1 fL 08/16/2024 12:16 PM EDT LABORATORY [facility] nRBCs 0 <=0 /100 WBCs 08/16/2024 12:16 PM EDT LABORATORY [facility] Blood Capillary blood specimen / Unknown Capillary / Unknown 08/16/2024 11:22 AM EDT 08/16/2024 11:35 AM EDT Vannessa Cameron MD LAB BLOOD ORDERABL ES LAB[facility]ATORY [facility] [address] [place] [address] * (ABNORMAL) CBC (08/16/2024 8:19 AM EDT) WBC 8.46 4.00 - 10.80 K/uL 08/16/2024 8:47 AM EDT LABORATORY [facility] RBC 2.05 4.50 - 5.25 M/uL 08/16/2024 8:47 AM EDT LABORATORY [facility] HGB 6.5(L) 14.0 - 16.8 g/dL 08/16/2024 8:47 AM EDT LABORATORY [facility] HCT 21.0(L) 40.0 - 48.4 % 08/16/2024 8:47 AM EDT LABORATORY [facility] MCV 102.4 82.0 - 99.5 fL 08/16/2024 8:47 AM EDT LABORATORY [facility] MCH 31.7 27.0 - 34.0 pg 08/16/2024 8:47 AM EDT LABORATORY [facility] MCHC 31.0 32.0 - 36.0 g/dL 08/16/2024 8:47 AM EDT LABORATORY [facility] RDW 15.9 11.5 - 15.5 % 08/16/2024 8:47 AM EDT LABORATORY [facility] PLT 107(L) 140 - 400 K/uL 08/16/2024 8:47 AM EDT LABORATORY [facility] MPV 12.1 6.6 - 11.1 fL 08/16/2024 8:47 AM EDT LABORATORY [facility] nRBCs 0 <=0 /100 WBCs 08/16/2024 8:47 AM EDT LABORATORY C Blood Venous blood specimen / Unknown Venipuncture / Unknown 08/16/2024 8:19 AM EDT 08/16/2024 8:38 AM EDT Holger Bhatt MD LAB BLOOD ORDERABLES [facility]ATORY [facility] [address] [place] [address] * PHOSPHORUS (08/16/2024 3:26 AM EDT) Phosphorus 2.8 2.5 - 4.8 mg/dL 08/16/2024 4:58 AM EDT LABORATORY [facility] Blood Venous blood specimen / Unknown Venipuncture / Unknown 08/16/2024 3:26 AM EDT 08/16/2024 4:23 AM EDT Elma CARBAJAL LAB BLOOD ORDE RABLES [facility]ATORY [facility] [address] [place] [address] * MAGNESIUM (08/16/2024 3:26 AM EDT) Magnesium 2.2 1.5 - 2.6 mg/dL 08/16/2024 4:58 AM EDT LABORATORY [facility] Blood Venous blood specimen / Unknown Venipuncture / Unknown 08/16/2024 3:26 AM EDT 08/16/2024 4:23 AM EDT Elma CARBAJAL LAB BLOOD ORDE [place] LAB[facility]ATORY [facility] [address] [place] [address] * (ABNORMAL) BASIC METABOLIC PANEL (08/16/2024 3:26 AM EDT) BUN 48(H) 6 - 20 mg/dL 08/16/2024 4:58 AM EDT LABORATORY [facility] CREATININE 3.3(H) 0.6 - 1.2 mg/dL 08/16/2024 4:58 AM EDT LABORATORY [facility] EGFR 19(L) >=60 mL/min 08/16/2024 4:58 AM EDT LABORATORY [facility] Comment:eGFR is calculated b ased on the CKD-EPI 2020 equation. SODIUM 135 135 - 146 mmol/L 08/16/2024 4:58 AM EDT LABORATORY [facility] POTASSIUM 4.1 3.5 - 5.1 mmol/L 08/16/2024 4:58 AM EDT LABORATORY [facility] CHLORIDE 105 98 - 107 mmol/L 08/16/2024 4:58 AM EDT LABORATORY [facility] CO2 19(L) 22 - 32 mmol/L 08/16/2024 4:58 AM EDT LABORATORY [facility] ANION GAP 11 7 - 15 mmol/L 08/16/2024 4:58 AM EDT LABORATORY [facility] GLUCOSE 112 70 - 120 mg/dL 08/16/2024 4:58 AM EDT LABORATORY [facility] CALCIUM 7.8(L) 8.4 - 10.2 mg/dL 08/16/2024 4:58 AM EDT LABORATORY [facility] Blood Venous blood specimen / Unknown Venipuncture / Unknown 08/16/2024 3:26 AM EDT 08/16/2024 4:23 AM EDT Holger Bhatt MD LAB BLOOD ORDERABLES LABORATORY [facility] [address] [place] [address] * (ABNORMAL) CBC (08/15/2024 8:22 PM EDT) WBC 9.42 4.00 - 10.80 K/uL 08/15/2024 8:40 PM EDT LABORATORY [facility] RBC 2.15 4.50 - 5.25 M/uL 08/15/2024 8:40 PM EDT LABORATORY [facility] HGB 7.0(L) 14.0 - 16.8 g/dL 08/15/2024 8:40 PM EDT LABORATORY [facility] HCT 21.3(L) 40.0 - 48.4 % 08/15/2024 8:40 PM EDT LABORATORY [facility] MCV 99.1 82.0 - 99.5 fL 08/15/2024 8:40 PM EDT LABORATORY [facility] MCH 32.6 27.0 - 34.0 pg 08/15/2024 8:40 PM EDT LABOR[facility]ORY [facility] MCHC 32.9 32.0 - 36.0 g/dL 08/15/2024 8:40 PM EDT LABORATORY [facility] RDW 15.9 11.5 - 15.5 % 08/15/2024 8:40 PM EDT LABORATORY [facility] PLT 86(L) 140 - 400 K/uL 08/15/2024 8:40 PM EDT LAB[facility]ORY [facility] MPV 12.3 6.6 - 11.1 fL 08/15/2024 8:40 PM EDT LAB[facility]ORY [facility] nRBCs 0 <=0 /100 WBCs 08/15/2024 8:40 PM EDT [facility] Blood Venous blood specimen / Unknown Venipuncture / Unknown 08/15/2024 8:22 PM EDT 08/15/2024 8:28 PM EDT Holger Bhatt MD LAB BLOOD ORDERABLES [facility] [address] [facility] [place] [address] * PHOSPHORUS (08/15/2024 6:41 AM EDT) Phosphorus 3.0 2.5 - 4.8 mg/dL 08/15/2024 7:13 AM EDT LABORATORY [facility] Blood Venous blood specimen / Unknown Venipuncture / Unknown 08/15/2024 6:41 AM EDT 08/15/2024 6:47 AM EDT Elma Farley RAVEN LAB BLOOD ORDMorro [place] Performing Organization Address [facility] Co de Phone Number LAB[facility]ATORY [facility] [address] [place] [address] * MAGNESIUM (08/15/2024 6:41 AM EDT) Magnesium 2.0 1.5 - 2.6 mg/dL 08/15/2024 7:13 AM EDT [facility]ORY [facility] Blood Venous blood specimen / Unknown Venipuncture / Unknown 08/15/2024 6:41 AM EDT 08/15/2024 6:47 AM EDT Elma Milton Miguelito CARBAJAL LAB BLOOD ORDMorro [place] Performing Organization Address [facility] de Phone Number LAB[facility]ATORY [facility] [address] [place] [address] * (ABNORMAL) BASIC METABOLIC PANEL (08/15/2024 6:41 AM EDT) BUN 46(H) 6 - 20 mg/dL 08/15/2024 7:13 AM EDT LABORATORY C CREATININE 3.1(H) 0.6 - 1.2 mg/dL 08/15/2024 7:13 AM EDT LABORATORY [facility] EGFR 20(L) >=60 mL/min 08/15/2024 7:13 AM EDT LABORATORY C Comment:eGFR is calculated b ased on the CKD-EPI 2020 equation. SODIUM 135 135 - 146 mmol/L 08/15/2024 7:13 AM EDT LABORATORY [facility] POTASSIUM 5.2(H) 3.5 - 5.1 mmol/L 08/15/2024 7:13 AM EDT LABORATORY C CHLORIDE 103 98 - 107 mmol/L 08/15/2024 7:13 AM EDT LABORATORY [facility] CO2 20(L) 22 - 32 mmol/L 08/15/2024 7:13 AM EDT LABORATORY [facility] ANION GAP 12 7 - 15 mmol/L 08/15/2024 7:13 AM EDT LABORATORY [facility] GLUCOSE 104 70 - 120 mg/dL 08/15/2024 7:13 AM EDT LABORATORY [facility] CALCIUM 7.4(L) 8.4 - 10.2 mg/dL 08/15/2024 7:13 AM EDT LABORATORY [facility] Blood Venous blood specimen / Unknown Venipuncture / Unknown 08/15/2024 6:41 AM EDT 08/15/2024 6:47 AM EDT Holger Bhatt MD LAB BLOOD ORDERABLES LABORATORY [facility] [address] [place] [address] * (ABNORMAL) CBC (08/15/2024 6:40 AM EDT) WBC 15.22(H) 4.00 - 10.80 K/uL 08/15/2024 7:07 AM EDT LABORATORY [facility] RBC 2.13 4.50 - 5.25 M/uL 08/15/2024 7:07 AM EDT LABORATORY [facility] HGB 6.9(L) 14.0 - 16.8 g/dL 08/15/2024 7:07 AM EDT LABORATORY [facility] HCT 20.0(L) 40.0 - 48.4 % 08/15/2024 7:07 AM EDT LABORATORY [facility] MCV 93.9 82.0 - 99.5 fL 08/15/2024 7:07 AM EDT LABORATORY [facility] MCH 32.4 27.0 - 34.0 pg 08/15/2024 7:07 AM EDT LABORATORY [facility] MCHC 34.5 32.0 - 36.0 g/dL 08/15/2024 7:07 AM EDT LABORATORY [facility] RDW 16.0 11.5 - 15.5 % 08/15/2024 7:07 AM EDT LABORATORY [facility] PLT 76(L) 140 - 400 K/uL 08/15/2024 7:07 AM EDT LABORATORY [facility] MPV 13.0 6.6 - 11.1 fL 08/15/2024 7:07 AM EDT [facility]ORY [facility] nRBCs 0 <=0 /100 WBCs 08/15/2024 7:07 AM EDT [facility]ORY [facility] Blood Venous blood specimen / Unknown Venipuncture / Unknown 08/15/2024 6:40 AM EDT 08/15/2024 6:47 AM EDT Ishan Johnson PA-C LAB BLOOD ORD ERABLES Performing Organization Address City/[facility]/ZIP Co de Phone Number LAB[facility]ATORY [facility] [address] [place] [address] * PREPARE PACKED RED BLOOD CELLS (08/15/2024 2:35 AM EDT) Unit Product Code [id number] 08/17/2024 6:09 AM EDT LABORATORY [facility] Unit Number [id number] 08/17/2024 6:09 AM EDT LABORATORY [facility] Unit ABO A 08/17/2024 6:09 AM EDT LABORATORY [facility] Unit Rh POS 08/17/2024 6:09 AM EDT LABORATORY [facility] Unit Crossmatch Compatible 08/15/2024 2:42 AM EDT LABORATORY [facility] Unit Status RE 08/17/2024 6:09 AM EDT LABORATORY [facility] Unit Blood Type APOS 08/17/2024 6:09 AM EDT LABORATORY [facility] Unit Expiration [id number] 08/17/2024 6:09 AM EDT LABORATORY [facility] Unit Barcode [id number] 08/17/2024 6:09 AM EDT LABORATORY [facility] 08/15/2024 2:35 AM EDT Ishan Johnson PA-C BLD BANK PROD UCT ORDERABLES LABORATORY [facility] [address] [place] [address] * (ABNORMAL) CBC (08/14/2024 8:30 PM EDT) WBC 12.08(H) 4.00 - 10.80 K/uL 08/14/2024 8:44 PM EDT LABORATORY [facility] RBC 2.12 4.50 - 5.25 M/uL 08/14/2024 8:44 PM EDT LABORATORY [facility] HGB 6.8(L) 14.0 - 16.8 g/dL 08/14/2024 8:44 PM EDT LABORATORY [facility] HCT 21.5(L) 40.0 - 48.4 % 08/14/2024 8:44 PM EDT LABORATORY [facility] MCV 101.4 82.0 - 99.5 fL 08/14/2024 8:44 PM EDT LABORATORY [facility] MCH 32.1 27.0 - 34.0 pg 08/14/2024 8:44 PM EDT LABORATORY [facility] MCHC 31.6 32.0 - 36.0 g/dL 08/14/2024 8:44 PM EDT LABORATORY GM RDW 16.6 11.5 - 15.5 % 08/14/2024 8:44 PM EDT LABORATORY GM PLT 74(L) 140 - 400 K/uL 08/14/2024 8:44 PM EDT [facility] MPV 12.4 6.6 - 11.1 fL 08/14/2024 8:44 PM EDT LAB[facility]ORY [facility] nRBCs 0 <=0 /100 WBCs 08/14/2024 8:44 PM EDT [facility] Blood Venous blood specimen / Unknown Venipuncture / Unknown 08/14/2024 8:30 PM EDT 08/14/2024 8:38 PM EDT Holger Bhatt MD LAB BLOOD ORDERABLES LAB[facility]ATORY [facility] [address] [place] [address] * VASC DUPLEX VENOUS UE UNILAT (08/14/2024 3:54 PM EDT) Anatomical Region Laterality Modality Upper Extremity, Vascular Ultras ound Impressions 08/14/2024 4:41 PM EDT : Left upper extremity venous duplex examination with no evidence of acute deep venous thrombosis. The left basilic and cephalic veins are patent with no evidence of superficial thrombophlebitis. Narrative 08/14/2024 4:41 PM EDT VASCULAR LAB RESULTS DATE OF EXAM: 08/14/24 PRESENTING CONDITIONS: Generalized Edema Immediately before proceeding with the vascular lab procedure reported below, the identity of the patient, the correct exam and the correct procedural site were verified. Damon scale, color flow and spectral doppler were performed for this examination. PHYSICIAN REPORT: Upper Extremity Venous Duplex Examination Duplex examination includes visualization of the left internal jugular vein, innominate vein, subclavian vein and axillary vein. The veins are free of internal echoes with normal diameter changes in response to respiratory cycles demonstrated. Doppler signals demonstrate spontaneous cyclic flow dynamics. The brachial veins demonstrate normal compressibility. The basilic and cephalic veins are compressible without internal echoes. The contralateral subclavian vein is patent and demonstrates respirophasic flow. Vivi Daniel MD RAD VASCULAR * US EXTREMITY, NON-VASCULAR LIMITED (08/14/2024 2:24 PM EDT) Anatomical Region Laterality Modality Extremity, Lower Extremity, Upper Extremity Ultrasound 08/14/2024 4:05 PM EDT Impressions 08/14/2024 4:32 PM EDT IMPRESSION Nonspecific subcutaneous edema. No measurable fluid collections are seen to suggest hematoma or abscess. I have personally reviewed this examination and agree with the resident/fellow physician's interpretation. Narrative 08/14/2024 4:32 PM EDT EXAM US EXTREMITY, NON-VASCULAR LIMITED-08/14/2024 2:24 pm HISTORY Diffuse LEFT upper extremity edema and ecchymosis following BP cuff use. COMPARISON None. TECHNIQUE Real-time sonographic imaging. FINDINGS Focused ultrasound of the left upper extremity reveals significant soft tissues swelling/cobblestoning in the upper arm. No measurable fluid collections are seen. Procedure Note Zak Brink II, MD - 08/14/2024 EXAM US EXTREMITY, NON-VASCULAR LIMITED-08/14/2024 2:24 pm HISTORY Diffuse LEFT upper extremity edema and ecchymosis following BP cuff use. COMPARISON None. TECHNIQUE Real-time sonographic imaging. FINDINGS Focused ultrasound of the left upper extremity reveals significant softtissues swelling/cobblestoning in the upper arm. No measurable fluidcollections are seen. IMPRESSION IMPRESSION Nonspecific subcutaneous edema. No measurable fluid collections are seento suggest hematoma or abscess. I have personally reviewed this examination and agree with the resident/fellow physician's interpretation. Vivi Daniel MD RAD ULTRASOUN D * LACTATE (08/14/2024 5:00 AM EDT) Lactate 1.6 0.4 - 2.0 mmol/L 08/14/2024 5:24 AM EDT LABORATORY [facility] Blood Venous blood specimen / Unknown Venipuncture / Unknown 08/14/2024 5:00 AM EDT 08/14/2024 5:07 AM EDT Elma CARBAJAL LAB BLOOD HEATHER [place] [facility] Organization Address City/State/ZIP Co de Phone Number LABORATORY [facility] [address], [place] [id number] * (ABNORMAL) CBC (08/14/2024 5:00 AM EDT) WBC 8.38 4.00 - 10.80 K/uL 08/14/2024 5:21 AM EDT LABORATORY [facility] RBC 2.51 4.50 - 5.25 M/uL 08/14/2024 5:21 AM EDT LABORATORY [facility] HGB 7.9(L) 14.0 - 16.8 g/dL 08/14/2024 5:21 AM EDT LABORATORY [facility] HCT 25.2(L) 40.0 - 48.4 % 08/14/2024 5:21 AM EDT LABORATORY [facility] MCV 100.4 82.0 - 99.5 fL 08/14/2024 5:21 AM EDT LABORATORY [facility] MCH 31.5 27.0 - 34.0 pg 08/14/2024 5:21 AM EDT LABORATORY [facility] MCHC 31.3 32.0 - 36.0 g/dL 08/14/2024 5:21 AM EDT LABORATORY [facility] RDW 16.9 11.5 - 15.5 % 08/14/2024 5:21 AM EDT LABORATORY [facility] PLT 81(L) 140 - 400 K/uL 08/14/2024 5:21 AM EDT LABOR[facility]ORY [facility] MPV 12.7 6.6 - 11.1 fL 08/14/2024 5:21 AM EDT LABOR[facility]ORY [facility] nRBCs 0 <=0 /100 WBCs 08/14/2024 5:21 AM EDT LABORATORY [facility] Blood Venous blood specimen / Unknown Venipuncture / Unknown 08/14/2024 5:00 AM EDT 08/14/2024 5:07 AM EDT Elma CARBAJAL LAB BLOOD ORDMorro [place] Performing Organization Address [facility] Co de Phone Number LABORATORY [facility] [address] [place] [address] * (ABNORMAL) PHOSPHORUS (08/14/2024 5:00 AM EDT) Phosphorus 2.1(L) 2.5 - 4.8 mg/dL 08/14/2024 5:26 AM EDT LABORATORY [facility] Blood Venous blood specimen / Unknown Venipuncture / Unknown 08/14/2024 5:00 AM EDT 08/14/2024 5:07 AM EDT Elma CARBAJAL LAB BLOOD ORDE [place] Performing Organization Address [facility] de Phone Number LAB[facility]ATORY [facility] [address] [place] [address] * MAGNESIUM (08/14/2024 5:00 AM EDT) Magnesium 2.1 1.5 - 2.6 mg/dL 08/14/2024 5:26 AM EDT LABORATORY [facility] Blood Venous blood specimen / Unknown Venipuncture / Unknown 08/14/2024 5:00 AM EDT 08/14/2024 5:07 AM EDT Elma CARBAJAL LAB BLOOD [place] Performing Organization Address City/[facility]/ZIP Co de Phone Number LABORATORY [facility] [address] [place] [address] * (ABNORMAL) BASIC METABOLIC PANEL (08/14/2024 5:00 AM EDT) BUN 52(H) 6 - 20 mg/dL 08/14/2024 5:26 AM EDT LAB[facility]ATORY [facility] CREATININE 3.1(H) 0.6 - 1.2 mg/dL 08/14/2024 5:26 AM EDT LABORATORY [facility] EGFR 20(L) >=60 mL/min 08/14/2024 5:26 AM EDT LABORATORY C Comment:eGFR is calculated b ased on the CKD-EPI 2020 equation. SODIUM 137 135 - 146 mmol/L 08/14/2024 5:26 AM EDT LABORATORY C POTASSIUM 4.8 3.5 - 5.1 mmol/L 08/14/2024 5:26 AM EDT LABORATORY C CHLORIDE 108(H) 98 - 107 mmol/L 08/14/2024 5:26 AM EDT LABORATORY C CO2 18(L) 22 - 32 mmol/L 08/14/2024 5:26 AM EDT LABORATORY C ANION GAP 11 7 - 15 mmol/L 08/14/2024 5:26 AM EDT LABORATORY C GLUCOSE 91 70 - 120 mg/dL 08/14/2024 5:26 AM EDT LABORATORY C CALCIUM 7.5(L) 8.4 - 10.2 mg/dL 08/14/2024 5:26 AM EDT [facility] Blood Venous blood specimen / Unknown Venipuncture / Unknown 08/14/2024 5:00 AM EDT 08/14/2024 5:07 AM EDT Holger Bhatt MD LAB BLOOD ORDERABLES LABORATORY [facility] [address] [place] [address] * (ABNORMAL) CBC (08/14/2024 12:32 AM EDT) WBC 12.92(H) 4.00 - 10.80 K/uL 08/14/2024 12:45 AM EDT LABORATORY [facility] RBC 2.66 4.50 - 5.25 M/uL 08/14/2024 12:45 AM EDT LABORATORY [facility] HGB 8.5(L) 14.0 - 16.8 g/dL 08/14/2024 12:45 AM EDT LABORATORY [facility] HCT 24.4(L) 40.0 - 48.4 % 08/14/2024 12:45 AM EDT LABORATORY [facility] MCV 91.7 82.0 - 99.5 fL 08/14/2024 12:45 AM EDT LABORATORY [facility] MCH 32.0 27.0 - 34.0 pg 08/14/2024 12:45 AM EDT LABORATORY [facility] MCHC 34.8 32.0 - 36.0 g/dL 08/14/2024 12:45 AM EDT LABORATORY [facility] RDW 16.2 11.5 - 15.5 % 08/14/2024 12:45 AM EDT LABORATORY [facility] PLT 74(L) 140 - 400 K/uL 08/14/2024 12:45 AM EDT LABORATORY [facility] MPV 13.4 6.6 - 11.1 fL 08/14/2024 12:45 AM EDT LABORATORY [facility] nRBCs 0 <=0 /100 WBCs 08/14/2024 12:45 AM EDT LABORATORY [facility] Blood Capillary blood specimen / Unknown Capillary / Unknown 08/14/2024 12:32 AM EDT 08/14/2024 12:37 AM EDT Elma CARBAJAL LAB BLOOD [facility] [facility] Organization Address City/State/[facility] Co de Phone Number LABORATORY [facility] [address] [place] [address] * (ABNORMAL) CBC (08/13/2024 6:50 PM EDT) [employer] Signature WBC 9.59 4.00 - 10.80 K/uL 08/13/2024 6:59 PM EDT LABORATORY [facility] RBC 2.79 4.50 - 5.25 M/uL 08/13/2024 6:59 PM EDT LABORATORY [facility] HGB 8.9(L) 14.0 - 16.8 g/dL 08/13/2024 6:59 PM EDT LABORATORY [facility] HCT 27.8(L) 40.0 - 48.4 % 08/13/2024 6:59 PM EDT LABORATORY [facility] MCV 99.6 82.0 - 99.5 fL 08/13/2024 6:59 PM EDT LABORATORY [facility] MCH 31.9 27.0 - 34.0 pg 08/13/2024 6:59 PM EDT LABORATORY [facility] MCHC 32.0 32.0 - 36.0 g/dL 08/13/2024 6:59 PM EDT LABORATORY [facility] RDW 16.2 11.5 - 15.5 % 08/13/2024 6:59 PM EDT LABORATORY [facility] PLT 80(L) 140 - 400 K/uL 08/13/2024 6:59 PM EDT LABORATORY [facility] MPV 13.4 6.6 - 11.1 fL 08/13/2024 6:59 PM EDT LABORATORY [facility] nRBCs 0 <=0 /100 WBCs 08/13/2024 6:59 PM EDT LABORATORY [facility] Blood Venous blood specimen / Unknown Venipuncture / Unknown 08/13/2024 6:50 PM EDT 08/13/2024 6:54 PM EDT Vivi Daniel MD LAB BLOOD ORD ERABLES LABORATORY [facility] [address] [place] [address] * (ABNORMAL) CBC (08/13/2024 2:08 PM EDT) WBC 11.69(H) 4.00 - 10.80 K/uL 08/13/2024 2:17 PM EDT LABORATORY [facility] RBC 2.81 4.50 - 5.25 M/uL 08/13/2024 2:17 PM EDT LABORATORY [facility] HGB 8.9(L) 14.0 - 16.8 g/dL 08/13/2024 2:17 PM EDT LABORATORY [facility] HCT 28.3(L) 40.0 - 48.4 % 08/13/2024 2:17 PM EDT LABORATORY [facility] MCV 100.7 82.0 - 99.5 fL 08/13/2024 2:17 PM EDT LABORATORY [facility] MCH 31.7 27.0 - 34.0 pg 08/13/2024 2:17 PM EDT LABORATORY [facility] MCHC 31.4 32.0 - 36.0 g/dL 08/13/2024 2:17 PM EDT [facility] RDW 15.8 11.5 - 15.5 % 08/13/2024 2:17 PM EDT [facility] PLT 70(L) 140 - 400 K/uL 08/13/2024 2:17 PM EDT [facility] MPV 13.5 6.6 - 11.1 fL 08/13/2024 2:17 PM EDT [facility] nRBCs 0 <=0 /100 WBCs 08/13/2024 2:17 PM EDT [facility] Blood Venous blood specimen / Unknown Venipuncture / Unknown 08/13/2024 2:08 PM EDT 08/13/2024 2:13 PM EDT Vivi Daniel MD LAB BLOOD ORD ERABLES [facility] [address] [place] [address] * TRANSFUSE PACKED RED BLOOD CELLS (08/13/2024 11:30 AM EDT) Tavares Regalado CRNA BLD BANK TRANFUSE OR DERABLES * TRANSFUSE PACKED RED BLOOD CELLS (08/13/2024 11:30 AM EDT) Quentin Piña MD [facility] BANK TRANFUSE OR DERABLES * TRANSFUSE PACKED RED BLOOD CELLS (08/13/2024 11:30 AM EDT) Quentin Piña MD [facility] BANK TRANFUSE OR DERABLES * (ABNORMAL) BLOOD GAS WITH CHEMISTRY, POINT OF CARE (08/13/2024 11:18 AM EDT) Draw Site Venous 08/13/2024 1:15 PM EDT [employer] pH i-STAT 7.245(L) 7.350 - 7.450 08/13/2024 1:15 PM EDT [employer] pCO2 i-STAT 48.2(H) 35.0 - 45.0 mm Hg 08/13/2024 1:15 PM EDT [facility] pO2 i-STAT 42(LL) 75 - 100 mm Hg 08/13/2024 1:15 PM EDT [facility] Base Excess i-STAT -6(L) -2 - 2 mmol/L 08/13/2024 1:15 PM EDT [facility] Bicarbonate i-STAT 20.9(L) 23.0 - 31.0 mmol/L 08/13/2024 1:15 PM EDT [facility] O2 Saturation i-STAT 68.0(L) 94.0 - 98.0 % 08/13/2024 1:15 PM EDT [facility] GLUCOSE - POCT 105 70 - 120 mg/dL 08/13/2024 1:15 PM EDT [facility] POTASSIUM - POCT 4.9 3.5 - 5.1 mmol/L 08/13/2024 1:15 PM EDT [facility] SODIUM - POCT 139 135 - 146 mmol/L 08/13/2024 1:15 PM EDT [facility] Calcium, ionized 1.10(L) 1.13 - 1.32 mmol/L 08/13/2024 1:15 PM EDT [facility] Hemoglobin i-STAT 6.8(L) 14.0 - 16.8 g/dL 08/13/2024 1:15 PM EDT [facility] Hematocrit i-STAT 20(LL) 40 - 48 % 08/13/2024 1:15 PM EDT [facility] Venous 08/13/2024 11:1 8 AM EDT 08/13/2024 1:15 PM EDT Bre Pastrana DO LAB POINT OF CARE TE ST DOCKED DEVICE UNSOLICITED RESULTS [facility] [address] [place] [address] * TEG (THROMBOELASTOGRAPH), HEPARINASE (08/13/2024 10:50 AM EDT) Reaction Time 6.8 2.5 - 8.3 minutes 08/13/2024 12:48 PM EDT LABORATORY C Kinetics Time 1.8 0.5 - 3.7 minutes 08/13/2024 12:48 PM EDT [facility] Alpha Angle 64.8 46.8 - 78.4 degrees 08/13/2024 12:48 PM EDT [facility] Maximum Amplitude 64.3 50.6 - 72.5 mm 08/13/2024 12:48 PM EDT [facility] Coagulation Index -0.1 -3.0 - 3.0 08/13/2024 12:48 PM EDT [facility] Percent Lysis 30 0.0 0.0 - 7.5 % 024 12:48 PM EDT [facility] Comment:This is an appended report. These results have been appended to a previously preliminary verified report. Blood Venous blood specimen / Unknown Venipuncture / Unknown 08/13/2024 10:50 AM EDT 08/13/2024 11:08 AM EDT Quentin Piña MD LAB BLOOD ORDERABLES [facility] [address] [place] [address] * (ABNORMAL) TEG (THROMBOELASTOGRAPH) (08/13/2024 10:50 AM EDT) Reaction Time 13.3(H) 2.5 - 8.3 minutes 08/13/2024 12:48 PM EDT [facility] Kinetics Time 3.5 0.5 - 3.7 minutes 08/13/2024 12:48 PM EDT [facility] Alpha Angle 47.6 46.8 - 78.4 degrees 08/13/2024 12:48 PM EDT [facility] Maximum Amplitude 65.9 50.6 - 72.5 mm 08/13/2024 12:48 PM EDT [facility] Comment:This is an appended report. These results have been appended to a previously preliminary verified report. Coagulation Index -6.1(L) -3.0 - 3.0 08/13/2024 12:48 PM EDT [facility] Comment:This is an appended report. These results have been appended to a previously preliminary verified report. Percent Lysis 30 0.0 0.0 - 7.5 % 08/13/2024 12:48 PM EDT [facility] Comment:This is an appended report. These results have been appended to a previously preliminary verified report. Blood Venous blood specimen / Unknown Venipuncture / Unknown 08/13/2024 10:50 AM EDT 08/13/2024 11:08 AM EDT Narrative [facility] - 08/13/2024 12:48 PM EDT If R time > 20 minutes and no clot formed suggesting hypocoagulable state or interfering substance (anticoagulation). Consider resubmitting a new sample and/or checking PT/INR, aPTT, fibrinogen, and platelet count. Quentin Piña MD LAB BLOOD ORDERABLES LABORATORY [address] [address] * PREPARE PACKED RED BLOOD CELLS (08/13/2024 10:15 AM EDT) Unit Product Code [id number] 08/14/2024 2:10 PM EDT [facility] Unit Number [id number] 08/14/2024 2:10 PM EDT [facility] Unit ABO A 08/14/2024 2:10 PM EDT [facility] Unit Rh POS 08/14/2024 2:10 PM EDT [facility] Unit Crossmatch Compatible 08/13/2024 10:33 AM EDT [facility] Unit Status PT 08/14/2024 2:10 PM EDT [facility] Unit Blood Type APOS 08/14/2024 2:10 PM EDT [facility] Unit Expiration [id number] 08/14/2024 2:10 PM EDT [facility] Unit Barcode 6200 08/14/2024 2:10 PM EDT [facility] 08/13/2024 10:1 5 AM EDT Quentin Piña MD BLD BANK PRODUCT ORD ERABLES [facility] [address] [place] [address] * (ABNORMAL) CBC (08/13/2024 9:46 AM EDT) [facility] WBC 11.19(H) 4.00 - 10.80 K/uL 08/13/2024 10:48 AM EDT LAB[facility]ORY [facility] RBC 2.16 4.50 - 5.25 M/uL 08/13/2024 10:48 AM EDT LAB[facility] HGB 6.8(L) 14.0 - 16.8 g/dL 08/13/2024 10:48 AM EDT [facility] HCT 22.7(L) 40.0 - 48.4 % 08/13/2024 10:48 AM EDT [facility] MCV 105.1 82.0 - 99.5 fL 08/13/2024 10:48 AM EDT [facility] MCH 31.5 27.0 - 34.0 pg 08/13/2024 10:48 AM EDT [facility] MCHC 30.0 32.0 - 36.0 g/dL 08/13/2024 10:48 AM EDT [facility] RDW 17.7 11.5 - 15.5 % 08/13/2024 10:48 AM EDT [facility] PLT 44(L) 140 - 400 K/uL 08/13/2024 10:48 AM EDT [facility] MPV 14.1 6.6 - 11.1 fL 08/13/2024 10:48 AM EDT [facility] nRBCs 0 <=0 /100 WBCs 08/13/2024 10:48 AM EDT [facility] Blood Venous blood specimen / Unknown Venipuncture / Unknown 08/13/2024 9:46 AM EDT 08/13/2024 9:50 AM EDT Vivi Daniel MD LAB BLOOD ORD ERABLES [facility] [address] [place] [address] * PREPARE PACKED RED BLOOD CELLS (08/13/2024 8:00 AM EDT) Unit Product Code [id number] 08/14/2024 2:10 PM EDT [facility] BLOOD BANK Unit Number [id number] 08/14/2024 2:10 PM EDT [facility] BLOOD BANK Unit ABO A 08/14/2024 2:10 PM EDT [facility] BLOOD BANK Unit Rh POS 08/14/2024 2:10 PM EDT [facility] BLOOD BANK Unit Crossmatch Compatible 08/13/2024 8:18 AM EDT [facility] BLOOD BANK Unit Status PT 08/14/2024 2:10 PM EDT [facility] BLOOD BANK Unit Blood Type APOS 08/14/2024 2:10 PM EDT [facility] BLOOD BANK Unit Expiration [id number] 08/14/2024 2:10 PM EDT [facility] BLOOD BANK Unit Barcode 6200 08/14/2024 2:10 PM EDT [facility] BLOOD BANK Unit Product Code [id number] 08/13/2024 1:36 PM EDT [facility] BLOOD BANK Unit Number [id number] 08/13/2024 1:36 PM EDT [facility] BLOOD BANK Unit ABO A 08/13/2024 1:36 PM EDT [facility] BLOOD BANK Unit Rh POS 08/13/2024 1:36 PM EDT [facility] BLOOD BANK Unit Crossmatch Compatible 08/13/2024 8:18 AM EDT [facility] BLOOD BANK Unit Status RE 08/13/2024 1:36 PM EDT [facility] BLOOD BANK Unit Blood Type APOS 08/13/2024 1:36 PM EDT [facility] BLOOD BANK Unit Expiration [id number] 08/13/2024 1:36 PM EDT [facility] BLOOD BANK Unit Barcode 6200 08/13/2024 1:36 PM EDT [facility] BLOOD BANK 08/13/2024 8:00 AM EDT Tavares Regalado CRNA BLD BANK PRODUCT ORD ERABLES [facility] [address] [facility] [address] * TYPE AND SCREEN (08/13/2024 7:17 AM EDT) ABO A 08/13/2024 8:13 AM EDT [facility] Rh Positive 08/13/2024 8:13 AM EDT [facility] Red Blood Cell Antibody Screen Negative 08/13/2024 8:13 AM EDT [facility] Specimen Expiration Date 08/16/2024 23:59 08/13/2024 8:13 AM EDT [facility] Blood Venous blood specimen / Unknown Venipuncture / Unknown 08/13/2024 7:17 AM EDT 08/13/2024 7:23 AM EDT Vivi Hemalatha Daniel MD LAB BLOOD BAN K TEST ORDERABLES [facility] [address] [place] [address] * (ABNORMAL) CBC (08/13/2024 7:17 AM EDT) WBC 12.82(H) 4.00 - 10.80 K/uL 08/13/2024 7:34 AM EDT LAB[facility]ORY [facility] RBC 2.51 4.50 - 5.25 M/uL 08/13/2024 7:34 AM EDT LAB[facility] HGB 7.9(L) 14.0 - 16.8 g/dL 08/13/2024 7:34 AM EDT LAB[facility] HCT 24.3(L) 40.0 - 48.4 % 08/13/2024 7:34 AM EDT [facility] MCV 96.8 82.0 - 99.5 fL 08/13/2024 7:34 AM EDT [facility] MCH 31.5 27.0 - 34.0 pg 08/13/2024 7:34 AM EDT [facility] MCHC 32.5 32.0 - 36.0 g/dL 08/13/2024 7:34 AM EDT LAB[facility] RDW 17.6 11.5 - 15.5 % 08/13/2024 7:34 AM EDT LAB[facility] PLT 81(L) 140 - 400 K/uL 08/13/2024 7:34 AM EDT LAB[facility] MPV 12.8 6.6 - 11.1 fL 08/13/2024 7:34 AM EDT [facility] nRBCs 0 <=0 /100 WBCs 08/13/2024 7:34 AM EDT [facility] Blood Venous blood specimen / Unknown Venipuncture / Unknown 08/13/2024 7:17 AM EDT 08/13/2024 7:23 AM EDT Etna Hemalatha Daniel MD LAB BLOOD ORD ERABLES [facility] [address] [place] [address] * (ABNORMAL) CBC (08/13/2024 4:32 AM EDT) WBC 9.95 4.00 - 10.80 K/uL 08/13/2024 5:14 AM EDT LAB[facility] RBC 2.48 4.50 - 5.25 M/uL 08/13/2024 5:14 AM EDT LAB[facility] HGB 7.9(L) 14.0 - 16.8 g/dL 08/13/2024 5:14 AM EDT LAB[facility] HCT 24.3(L) 40.0 - 48.4 % 08/13/2024 5:14 AM EDT [facility] MCV 98.0 82.0 - 99.5 fL 08/13/2024 5:14 AM EDT [facility] MCH 31.9 27.0 - 34.0 pg 08/13/2024 5:14 AM EDT LAB[facility] MCHC 32.5 32.0 - 36.0 g/dL 08/13/2024 5:14 AM EDT [facility] RDW 17.3 11.5 - 15.5 % 08/13/2024 5:14 AM EDT LAB[facility] PLT 80(L) 140 - 400 K/uL 08/13/2024 5:14 AM EDT LAB[facility] MPV 13.3 6.6 - 11.1 fL 08/13/2024 5:14 AM EDT LAB[facility] nRBCs 0 <=0 /100 WBCs 08/13/2024 5:14 AM EDT LAB[facility] Blood Venous blood specimen / Unknown Venipuncture / Unknown 08/13/2024 4:32 AM EDT 08/13/2024 5:04 AM EDT Ishan Johnson PA-C LAB BLOOD ORD ERABLES [facility] [address] [place] [address] * (ABNORMAL) BASIC METABOLIC PANEL (08/13/2024 4:32 AM EDT) BUN 54(H) 6 - 20 mg/dL 08/13/2024 5:36 AM EDT LABORATORY C CREATININE 2.9(H) 0.6 - 1.2 mg/dL 08/13/2024 5:36 AM EDT [facility] EGFR 22(L) >=60 mL/min 08/13/2024 5:36 AM EDT LABORATORY C Comment:eGFR is calculated b ased on the CKD-EPI 2020 equation. SODIUM 138 135 - 146 mmol/L 08/13/2024 5:36 AM EDT LAB[facility]ORY [facility] POTASSIUM 4.5 3.5 - 5.1 mmol/L 08/13/2024 5:36 AM EDT LAB[facility] CHLORIDE 109(H) 98 - 107 mmol/L 08/13/2024 5:36 AM EDT LAB[facility] CO2 20(L) 22 - 32 mmol/L 08/13/2024 5:36 AM EDT LAB[facility] ANION GAP 9 7 - 15 mmol/L 08/13/2024 5:36 AM EDT LAB[facility] GLUCOSE 94 70 - 120 mg/dL 08/13/2024 5:36 AM EDT LAB[facility] CALCIUM 8.8 8.4 - 10.2 mg/dL 08/13/2024 5:36 AM EDT [facility] Blood Venous blood specimen / Unknown Venipuncture / Unknown 08/13/2024 4:32 AM EDT 08/13/2024 5:04 AM EDT Holger Bhatt MD LAB BLOOD ORDERABLES LAB[facility] [address] [place] [address] * (ABNORMAL) CBC (08/12/2024 11:40 PM EDT) WBC 9.86 4.00 - 10.80 K/uL 08/13/2024 12:18 AM EDT LAB[facility] RBC 2.46 4.50 - 5.25 M/uL 08/13/2024 12:18 AM EDT LAB[facility] HGB 7.8(L) 14.0 - 16.8 g/dL 08/13/2024 12:18 AM EDT LAB[facility] HCT 24.1(L) 40.0 - 48.4 % 08/13/2024 12:18 AM EDT LAB[facility] MCV 98.0 82.0 - 99.5 fL 08/13/2024 12:18 AM EDT LAB[facility] MCH 31.7 27.0 - 34.0 pg 08/13/2024 12:18 AM EDT LAB[facility] MCHC 32.4 32.0 - 36.0 g/dL 08/13/2024 12:18 AM EDT LAB[facility] RDW 17.6 11.5 - 15.5 % 08/13/2024 12:18 AM EDT LAB[facility] PLT 77(L) 140 - 400 K/uL 08/13/2024 12:18 AM EDT LAB[facility] MPV 12.7 6.6 - 11.1 fL 08/13/2024 12:18 AM EDT LAB[facility]ATORY [facility] nRBCs 0 <=0 /100 WBCs 08/13/2024 12:18 AM EDT LAB[facility]ORY [facility] Blood Venous blood specimen / Unknown Venipuncture / Unknown 08/12/2024 11:40 PM EDT 08/12/2024 11:46 PM EDT Ishan Johnson PA-C LAB BLOOD ORD ERABLES Performing Organization Address City/[facility]/ZIP Co de Phone Number LABORATORY [facility] [address] [place] [address] * (ABNORMAL) CBC (08/12/2024 5:24 PM EDT) WBC 11.92(H) 4.00 - 10.80 K/uL 08/12/2024 5:44 PM EDT LAB[facility]ORY [facility] RBC 2.91 4.50 - 5.25 M/uL 08/12/2024 5:44 PM EDT LAB[facility] HGB 9.2(L) 14.0 - 16.8 g/dL 08/12/2024 5:44 PM EDT LAB[facility] HCT 28.0(L) 40.0 - 48.4 % 08/12/2024 5:44 PM EDT LAB[facility] MCV 96.2 82.0 - 99.5 fL 08/12/2024 5:44 PM EDT LAB[facility] MCH 31.6 27.0 - 34.0 pg 08/12/2024 5:44 PM EDT [facility] MCHC 32.9 32.0 - 36.0 g/dL 08/12/2024 5:44 PM EDT [facility] RDW 17.8 11.5 - 15.5 % 08/12/2024 5:44 PM EDT LABORATORY [facility] PLT 59(L) 140 - 400 K/uL 08/12/2024 5:44 PM EDT [facility] MPV 13.2 6.6 - 11.1 fL 08/12/2024 5:44 PM EDT [facility] nRBCs 0 <=0 /100 WBCs 08/12/2024 5:44 PM EDT [facility] Blood Venous blood specimen / Unknown Venipuncture / Unknown 08/12/2024 5:24 PM EDT 08/12/2024 5:29 PM EDT sIhan Johnson PA-C LAB BLOOD ORD ERABLES [facility] [address] [place] [address] * (ABNORMAL) CBC (08/12/2024 12:20 PM EDT) WBC 10.25 4.00 - 10.80 K/uL 08/12/2024 12:30 PM EDT LAB[facility] RBC 2.62 4.50 - 5.25 M/uL 08/12/2024 12:30 PM EDT LAB[facility] HGB 8.2(L) 14.0 - 16.8 g/dL 08/12/2024 12:30 PM EDT LAB[facility] HCT 25.8(L) 40.0 - 48.4 % 08/12/2024 12:30 PM EDT LAB[facility] MCV 98.5 82.0 - 99.5 fL 08/12/2024 12:30 PM EDT LAB[facility] MCH 31.3 27.0 - 34.0 pg 08/12/2024 12:30 PM EDT LAB[facility] MCHC 31.8 32.0 - 36.0 g/dL 08/12/2024 12:30 PM EDT LAB[facility] RDW 17.7 11.5 - 15.5 % 08/12/2024 12:30 PM EDT LAB[facility] PLT 59(L) 140 - 400 K/uL 08/12/2024 12:30 PM EDT LAB[facility] MPV 12.8 6.6 - 11.1 fL 08/12/2024 12:30 PM EDT LAB[facility] nRBCs 0 <=0 /100 WBCs 08/12/2024 12:30 PM EDT [facility] Blood Arterial blood specimen / Unknown Arterial Line / Unknown 08/12/2024 12:20 PM EDT 08/12/2024 12:26 PM EDT Ishan Johnson PA-C LAB BLOOD ORD ERABLES [facility] [address] [place] [address] * TEG (THROMBOELASTOGRAPH), HEPARINASE (08/12/2024 5:47 AM EDT) Reaction Time 5.9 2.5 - 8.3 minutes 08/12/2024 8:24 AM EDT LAB[facility] Kinetics Time 1.7 0.5 - 3.7 minutes 08/12/2024 8:24 AM EDT LAB[facility] Alpha Angle 66.0 46.8 - 78.4 degrees 08/12/2024 8:24 AM EDT [facility] Maximum Amplitude 65.4 50.6 - 72.5 mm 08/12/2024 8:24 AM EDT [facility] Coagulation Index 0.7 -3.0 - 3.0 08/12/2024 8:24 AM EDT [facility] Percent Lysis 30 0.0 0.0 - 7.5 % 8:24 AM EDT [facility] Comment:This is an appended report. These results have been appended to a previously preliminary verified report. Blood Venous blood specimen / Unknown Venipuncture / Unknown 08/12/2024 5:47 AM EDT 08/12/2024 5:59 AM EDT Holger Bhatt MD LAB BLOOD ORDERABLES [facility] [address] [place] [address] * TEG (THROMBOELASTOGRAPH) (08/12/2024 5:47 AM EDT) Reaction Time 6.1 2.5 - 8.3 minutes 08/12/2024 8:24 AM EDT [facility] Kinetics Time 1.9 0.5 - 3.7 minutes 08/12/2024 8:24 AM EDT [facility] Alpha Angle 64.3 46.8 - 78.4 degrees 08/12/2024 8:24 AM EDT [facility] Maximum Amplitude 65.0 50.6 - 72.5 mm 08/12/2024 8:24 AM EDT LAB[facility] Coagulation Index 0.4 -3.0 - 3.0 08/12/2024 8:24 AM EDT LABORATORY C Percent Lysis 30 0.0 0.0 - 7.5 % 8:24 AM EDT [facility] Comment:This is an appended report. These results have been appended to a previously preliminary verified report. Blood Venous blood specimen / Unknown Venipuncture / Unknown 08/12/2024 5:47 AM EDT 08/12/2024 5:59 AM EDT Narrative LAB[facility]ATORY [facility] - 08/12/2024 8:24 AM EDT If R time > 20 minutes and no clot formed suggesting hypocoagulable state or interfering substance (anticoagulation). Consider resubmitting a new sample and/or checking PT/INR, aPTT, fibrinogen, and platelet count. Holger Bhatt MD LAB BLOOD ORDERABLES Performing Organization Address [facility] Co de Phone Number LABORATORY [facility] [address] [place] [address] * PHOSPHORUS (08/12/2024 5:32 AM EDT) Phosphorus 3.9 2.5 - 4.8 mg/dL 08/12/2024 8:32 AM EDT [facility] Blood Venous blood specimen / Unknown Venipuncture / Unknown 08/12/2024 5:32 AM EDT 08/12/2024 5:39 AM EDT [facility] ORDER[facility]LES Performing Organization Address [facility] Co de Phone Number LAB[facility]ATORY [facility] [address] [place] [address] * MAGNESIUM (08/12/2024 5:32 AM EDT) Magnesium 2.1 1.5 - 2.6 mg/dL 08/12/2024 8:32 AM EDT [facility] Blood Venous blood specimen / Unknown Venipuncture / Unknown 08/12/2024 5:32 AM EDT 08/12/2024 5:39 AM EDT [facility]OD ORDERABLES Performing Organization Address [facility] de Phone Number LABORATORY [facility] [address] [place] [address] * (ABNORMAL) CBC (08/12/2024 5:32 AM EDT) WBC 9.01 4.00 - 10.80 K/uL 08/12/2024 6:17 AM EDT LAB[facility]ORY [facility] RBC 2.53 4.50 - 5.25 M/uL 08/12/2024 6:17 AM EDT LAB[facility]ORY [facility] HGB 8.0(L) 14.0 - 16.8 g/dL 08/12/2024 6:17 AM EDT LAB[facility] HCT 24.6(L) 40.0 - 48.4 % 08/12/2024 6:17 AM EDT LAB[facility] MCV 97.2 82.0 - 99.5 fL 08/12/2024 6:17 AM EDT LAB[facility]ORY [facility] MCH 31.6 27.0 - 34.0 pg 08/12/2024 6:17 AM EDT LAB[facility]ORY [facility] MCHC 32.5 32.0 - 36.0 g/dL 08/12/2024 6:17 AM EDT LAB[facility] RDW 17.2 11.5 - 15.5 % 08/12/2024 6:17 AM EDT LAB[facility]ATORY [facility] PLT 59(L) 140 - 400 K/uL 08/12/2024 6:17 AM EDT LAB[facility] MPV 13.7 6.6 - 11.1 fL 08/12/2024 6:17 AM EDT LAB[facility] nRBCs 0 <=0 /100 WBCs 08/12/2024 6:17 AM EDT LAB[facility] Blood Venous blood specimen / Unknown Venipuncture / Unknown 08/12/2024 5:32 AM EDT 08/12/2024 5:39 AM EDT Ishan Johnson PA-C LAB BLOOD ORD ERABLES LAB[facility] [address] [place] [address] * (ABNORMAL) PT INR (08/12/2024 5:32 AM EDT) [facility] Prothrombin Time 15.7(H) 11.6 - 15.2 seconds 08/12/2024 6:22 AM EDT LABORATORY [facility] INR 1.2 0.8 - 1.2 08/12/2024 6:22 AM EDT LABORATORY [facility] Blood Venous blood specimen / Unknown Venipuncture / Unknown 08/12/2024 5:32 AM EDT 08/12/2024 5:39 AM EDT Narrative LABORATORY [facility] - 08/12/2024 6:22 AM EDT Warfarin Therapy INR: 2.0-3.0 conventional anticoagulation INR: 2.5-3.5 high intensity anticoagulation Holger Bhatt MD LAB BLOOD ORDERABLES [facility]AT[facility] [address] [place] [address] * (ABNORMAL) BASIC METABOLIC PANEL (08/12/2024 5:32 AM EDT) BUN 63(H) 6 - 20 mg/dL 08/12/2024 6:29 AM EDT LABORATORY [facility] CREATININE 3.0(H) 0.6 - 1.2 mg/dL 08/12/2024 6:29 AM EDT LABORATORY GM EGFR 21(L) >=60 mL/min 08/12/2024 6:29 AM EDT LABORATORY [facility] Comment:eGFR is calculated b ased on the CKD-EPI 2020 equation. SODIUM 141 135 - 146 mmol/L 08/12/2024 6:29 AM EDT LABORATORY [facility] POTASSIUM 4.8 3.5 - 5.1 mmol/L 08/12/2024 6:29 AM EDT LABORATORY [facility] CHLORIDE 112(H) 98 - 107 mmol/L 08/12/2024 6:29 AM EDT LABORATORY [facility] CO2 19(L) 22 - 32 mmol/L 08/12/2024 6:29 AM EDT LABORATORY [facility] ANION GAP 10 7 - 15 mmol/L 08/12/2024 6:29 AM EDT LABORATORY [facility] GLUCOSE 99 70 - 120 mg/dL 08/12/2024 6:29 AM EDT LABORATORY [facility] CALCIUM 8.3(L) 8.4 - 10.2 mg/dL 08/12/2024 6:29 AM EDT LABORATORY C Blood Venous blood specimen / Unknown Venipuncture / Unknown 08/12/2024 5:32 AM EDT 08/12/2024 5:39 AM EDT Holger Bhatt MD LAB BLOOD ORDERABLES [facility] [address] [place] [address] * TRANSFUSE PACKED RED BLOOD CELLS (08/12/2024 4:37 AM EDT) Ishan Johnson PA-C [facility] FUSE ORDERABLES * TRANSFUSE PACKED RED BLOOD CELLS (08/12/2024 4:37 AM EDT) Ishan Johnson PA-C [facility] [place] F[facility] ORDERABLES * PREPARE PACKED RED BLOOD CELLS (08/12/2024 1:40 AM EDT) Unit Product Code [id number] 08/13/2024 2:10 AM EDT [facility] Unit Number [id number] 08/13/2024 2:10 AM EDT LAB[facility]ORY [facility] Unit ABO A 08/13/2024 2:10 AM EDT LAB[facility] Unit Rh POS 08/13/2024 2:10 AM EDT LAB[facility] Unit Crossmatch Compatible 08/12/2024 1:44 AM EDT LAB[facility] Unit Status PT 08/13/2024 2:10 AM EDT LAB[facility]ORY [facility] Unit Blood Type APOS 08/13/2024 2:10 AM EDT LAB[facility]ORY [facility] Unit Expiration [id number] 08/13/2024 2:10 AM EDT LAB[facility]ORY [facility] Unit Barcode [id number] 08/13/2024 2:10 AM EDT LAB[facility] 08/12/2024 1:40 AM EDT Ishan Johnson PA-C BLD BANK PROD UCT ORDERABLES LABORATORY [facility] [address] [place] [address] * (ABNORMAL) CBC (08/12/2024 12:06 AM EDT) WBC 8.78 4.00 - 10.80 K/uL 08/12/2024 12:27 AM EDT LABORATORY C RBC 2.05 4.50 - 5.25 M/uL 08/12/2024 12:27 AM EDT LABORATORY [facility] HGB 6.5(L) 14.0 - 16.8 g/dL 08/12/2024 12:27 AM EDT LABORATORY [facility] HCT 20.1(L) 40.0 - 48.4 % 08/12/2024 12:27 AM EDT LABORATORY [facility] MCV 98.0 82.0 - 99.5 fL 08/12/2024 12:27 AM EDT LABORATORY [facility] MCH 31.7 27.0 - 34.0 pg 08/12/2024 12:27 AM EDT LABORATORY [facility] MCHC 32.3 32.0 - 36.0 g/dL 08/12/2024 12:27 AM EDT LABORATORY [facility] RDW 17.9 11.5 - 15.5 % 08/12/2024 12:27 AM EDT LABORATORY [facility] PLT 50(L) 140 - 400 K/uL 08/12/2024 12:27 AM EDT LABORATORY [facility] MPV 12.5 6.6 - 11.1 fL 08/12/2024 12:27 AM EDT LABORATORY [facility] nRBCs 0 <=0 /100 WBCs 08/12/2024 12:27 AM EDT LABORATORY [facility] Blood Venous blood specimen / Unknown Venipuncture / Unknown 08/12/2024 12:06 AM EDT 08/12/2024 12:20 AM EDT Ishan Johnson PA-C LAB BLOOD ORD ERABLES Performing Organization Address City/State/[facility] Co de Phone Number LABORATORY [facility] [address], [place] [id number] * (ABNORMAL) CBC (08/11/2024 5:32 PM EDT) WBC 10.56 4.00 - 10.80 K/uL 08/11/2024 6:06 PM EDT LABORATORY [facility] RBC 2.28 4.50 - 5.25 M/uL 08/11/2024 6:06 PM EDT LABORATORY [facility] HGB 7.2(L) 14.0 - 16.8 g/dL 08/11/2024 6:06 PM EDT LABORATORY [facility] HCT 23.1(L) 40.0 - 48.4 % 08/11/2024 6:06 PM EDT LABORATORY [facility] MCV 101.3 82.0 - 99.5 fL 08/11/2024 6:06 PM EDT LABORATORY [facility] MCH 31.6 27.0 - 34.0 pg 08/11/2024 6:06 PM EDT LABORATORY GM MCHC 31.2 32.0 - 36.0 g/dL 08/11/2024 6:06 PM EDT LABORATORY GM RDW 17.9 11.5 - 15.5 % 08/11/2024 6:06 PM EDT LABORATORY GM PLT 51(L) 140 - 400 K/uL 08/11/2024 6:06 PM EDT LABORATORY GM MPV 13.7 6.6 - 11.1 fL 08/11/2024 6:06 PM EDT LABORATORY GM nRBCs 0 <=0 /100 WBCs 08/11/2024 6:06 PM EDT [facility] Blood Arterial blood specimen / Unknown Arterial Line / Unknown 08/11/2024 5:32 PM EDT 08/11/2024 5:46 PM EDT Ishan Johnson PA-C LAB BLOOD ORD ERABLES Performing Organization Address City/State/[facility] Co de Phone Number [facility] [address] [place] [address] * TRANSFUSE PLASMA (08/11/2024 4:26 PM EDT) Vivi CELIS BANK [facility] FUSE ORDERABLES * TRANSFUSE PLASMA (08/11/2024 4:26 PM EDT) Vivi CELIS [facility] FUSE ORDERABLES * TRANSFUSE CRYOPRECIPITATE (08/11/2024 3:54 PM EDT) Vivi CELIS [facility] FUSE ORDERABLES * TRANSFUSE CRYOPRECIPITATE (08/11/2024 3:54 PM EDT) Vivi CELIS BANK [facility] FUSE ORDERABLES * TRANSFUSE PACKED RED BLOOD CELLS (08/11/2024 2:32 PM EDT) Holger Bhatt MD BLD BANK TRANFUSE OR DERABLES * TRANSFUSE PACKED RED BLOOD CELLS (08/11/2024 2:32 PM EDT) Holger Bhatt MD BLD BANK TRANFUSE OR DERABLES * PREPARE PLASMA (08/11/2024 2:05 PM EDT) Unit Product Code [id number] 08/13/2024 2:10 AM EDT [facility] BLOOD BANK Unit Number [id number] 08/13/2024 2:10 AM EDT [facility] BLOOD BANK Unit ABO A 08/13/2024 2:10 AM EDT [facility] BLOOD B[facility] Unit Rh POS 08/13/2024 2:10 AM EDT [facility] BLOOD BANK Unit Status PT 08/13/2024 2:10 AM EDT [facility] BLOOD BANK Unit Blood Type APOS 08/13/2024 2:10 AM EDT [facility] BLOOD B[facility] Unit Expiration [id number] 08/13/2024 2:10 AM EDT [facility] BLOOD BANK Unit Barcode 6200 08/13/2024 2:10 AM EDT [facility] 08/11/2024 2:05 PM EDT Vivi Daniel MD BLD BANK PROD UCT ORDERABLES [facility] BLOOD B[facility] [address] [place] [address] * PREPARE CRYOPRECIPITATE (08/11/2024 1:50 PM EDT) Unit Product Code [id number] 08/13/2024 2:10 AM EDT [facility] BLOOD B[facility] Unit Number [id number] 08/13/2024 2:10 AM EDT [facility] BLOOD BANK Unit ABO A 08/13/2024 2:10 AM EDT [facility] BLOOD BANK Unit Rh POS 08/13/2024 2:10 AM EDT [facility] BLOOD B[facility] Unit Status PT 08/13/2024 2:10 AM EDT [facility] BLOOD B[facility] Unit Blood Type APOS 08/13/2024 2:10 AM EDT [facility] Unit Expiration [id number] 08/13/2024 2:10 AM EDT [facility] Unit Barcode 6200 08/13/2024 2:10 AM EDT [facility] 08/11/2024 1:50 PM EDT Etna Hemalatha Daniel MD BLD BANK PROD UCT ORDERABLES [facility] B[facility] [address] [place] [address] * (ABNORMAL) CBC (08/11/2024 12:00 PM EDT) WBC 12.34(H) 4.00 - 10.80 K/uL 08/11/2024 12:33 PM EDT [facility] RBC 2.03 4.50 - 5.25 M/uL 08/11/2024 12:33 PM EDT [facility] HGB 6.6(L) 14.0 - 16.8 g/dL 08/11/2024 12:33 PM EDT [facility] HCT 21.2(L) 40.0 - 48.4 % 08/11/2024 12:33 PM EDT [facility] MCV 104.4 82.0 - 99.5 fL 08/11/2024 12:33 PM EDT [facility] MCH 32.5 27.0 - 34.0 pg 08/11/2024 12:33 PM EDT [facility] MCHC 31.1 32.0 - 36.0 g/dL 08/11/2024 12:33 PM EDT [facility] RDW 14.9 11.5 - 15.5 % 08/11/2024 12:33 PM EDT [facility] PLT 58(L) 140 - 400 K/uL 08/11/2024 12:33 PM EDT [facility] MPV 13.4 6.6 - 11.1 fL 08/11/2024 12:33 PM EDT [facility] nRBCs 0 <=0 /100 WBCs 08/11/2024 12:33 PM EDT [facility] Blood Arterial blood specimen / Unknown Arterial Line / Unknown 08/11/2024 12:00 PM EDT 08/11/2024 12:12 PM EDT Ishan Johnson PA-C LAB BLOOD ORD ERABLES Performing Organization Address [facility] Co de Phone Number [facility] [address] [place] [address] * TEG (THROMBOELASTOGRAPH), HEPARINASE (08/11/2024 12:00 PM EDT) Reaction Time 4.9 2.5 - 8.3 minutes 08/11/2024 1:45 PM EDT [facility] Kinetics Time 1.9 0.5 - 3.7 minutes 08/11/2024 1:45 PM EDT [facility] Alpha Angle 68.1 46.8 - 78.4 degrees 08/11/2024 1:45 PM EDT [facility] Maximum Amplitude 59.4 50.6 - 72.5 mm 08/11/2024 1:45 PM EDT [facility] Coagulation Index 0.7 -3.0 - 3.0 08/11/2024 1:45 PM EDT [facility] Percent Lysis 30 0.0 0.0 - 7.5 % 024 1:45 PM EDT [facility] Comment:This is an appended report. These results have been appended to a previously preliminary verified report. Blood Arterial blood specimen / Unknown Arterial Line / Unknown 08/11/2024 12:00 PM EDT 08/11/2024 12:12 PM EDT Holger Bhatt MD LAB BLOOD ORDERABLES Performing Organization Address [facility] Co de Phone Number [facility] [address] [place] [address] * (ABNORMAL) TEG (THROMBOELASTOGRAPH) (08/11/2024 12:00 PM EDT) Reaction Time 9.0(H) 2.5 - 8.3 minutes 08/11/2024 1:44 PM EDT [facility] Kinetics Time 4.8(H) 0.5 - 3.7 minutes 08/11/2024 1:44 PM EDT [facility] Alpha Angle 25.6(L) 46.8 - 78.4 degrees 08/11/2024 1:44 PM EDT [facility] Maximum Amplitude 59.3 50.6 - 72.5 mm 08/11/2024 1:44 PM EDT [facility] Coagulation Index -6.2(L) -3.0 - 3.0 08/11/2024 1:44 PM EDT [facility] Percent Lysis 30 0.0 0.0 - 7.5 % 08/11/2024 1:44 PM EDT [facility] Comment:This is an appended report. These results have been appended to a previously preliminary verified report. Blood Arterial blood specimen / Unknown Arterial Line / Unknown 08/11/2024 12:00 PM EDT 08/11/2024 12:12 PM EDT Narrative [facility] - 08/11/2024 1:44 PM EDT If R time > 20 minutes and no clot formed suggesting hypocoagulable state or interfering substance (anticoagulation). Consider resubmitting a new sample and/or checking PT/INR, aPTT, fibrinogen, and platelet count. Holger Bhatt MD LAB [place]LOOD [place] [address] * PREPARE PACKED RED BLOOD CELLS (08/11/2024 11:00 AM EDT) Unit Product Code [id number] 08/13/2024 2:10 AM EDT [facility] Unit Number [id number] 08/13/2024 2:10 AM EDT [facility] Unit ABO A 08/13/2024 2:10 AM EDT [facility] Unit Rh POS 08/13/2024 2:10 AM EDT [facility] Unit Crossmatch Compatible 08/11/2024 11:05 AM EDT [facility] Unit Status PT 08/13/2024 2:10 AM EDT [facility] Unit Blood Type APOS 08/13/2024 2:10 AM EDT LABORATORY [facility] BLOOD BANK Unit Expiration [id number] 08/13/2024 2:10 AM EDT [facility] Unit Barcode 6200 08/13/2024 2:10 AM EDT [facility] B[facility]OD [facility]ANK 08/11/2024 11:0 0 AM EDT Holger Bhatt MD BLD BANK PRODUCT ORD ERABLES [facility] B[facility] B[facility] [address] [place] [address] * (ABNORMAL) CBC (08/11/2024 8:54 AM EDT) WBC 12.49(H) 4.00 - 10.80 K/uL 08/11/2024 9:28 AM EDT [facility] RBC 1.89 4.50 - 5.25 M/uL 08/11/2024 9:28 AM EDT [facility] HGB 6.1(L) 14.0 - 16.8 g/dL 08/11/2024 9:28 AM EDT [facility] HCT 19.9(L) 40.0 - 48.4 % 08/11/2024 9:28 AM EDT [facility] MCV 105.3 82.0 - 99.5 fL 08/11/2024 9:28 AM EDT [facility] MCH 32.3 27.0 - 34.0 pg 08/11/2024 9:28 AM EDT [facility] MCHC 30.7 32.0 - 36.0 g/dL 08/11/2024 9:28 AM EDT [facility] RDW 14.4 11.5 - 15.5 % 08/11/2024 9:28 AM EDT [facility] PLT 58(L) 140 - 400 K/uL 08/11/2024 9:28 AM EDT [facility] MPV 13.2 6.6 - 11.1 fL 08/11/2024 9:28 AM EDT [facility] nRBCs 0 <=0 /100 WBCs 08/11/2024 9:28 AM EDT [facility] Blood Arterial blood specimen / Unknown Arterial Line / Unknown 08/11/2024 8:54 AM EDT 08/11/2024 9:07 AM EDT Vivi Daniel MD LAB BLOOD ORD ERABLES [facility] [address] [place] [address] * TRANSFUSE PACKED RED BLOOD CELLS (08/11/2024 7:49 AM EDT) Ishan Johnson PA-C BLD BANK [facility] FUSE ORDERABLES * TRANSFUSE PACKED RED BLOOD CELLS (08/11/2024 7:49 AM EDT) Ishan Johnson PA-C BLD BANK [facility] FUSE ORDERABLES * PREPARE PACKED RED BLOOD CELLS (08/11/2024 5:40 AM EDT) Unit Product Code [id number] 08/12/2024 12:10 PM EDT [facility] Unit Number [id number] 08/12/2024 12:10 PM EDT [facility] BLOOD BANK Unit ABO A 08/12/2024 12:10 PM EDT LABORATORY C BLOOD BANK Unit Rh POS 08/12/2024 12:10 PM EDT LABORATORY C BLOOD BANK Unit Crossmatch Compatible 08/11/2024 5:45 AM EDT [facility] BLOOD B[facility] Unit Status PT 08/12/2024 12:10 PM EDT LABORATORY C BLOOD BANK Unit Blood Type APOS 08/12/2024 12:10 PM EDT [facility] BLOOD B[facility] Unit Expiration [id number] 08/12/2024 12:10 PM EDT [facility] BLOOD BANK Unit Barcode 6200 08/12/2024 12:10 PM EDT [facility] 08/11/2024 5:40 AM EDT Ishan Johnson PA-C BLD BANK PROD UCT ORDERABLES [facility] B[facility] [address] [place] [address] * (ABNORMAL) CBC (08/11/2024 5:08 AM EDT) Pathologist [facility] WBC 15.45(H) 4.00 - 10.80 K/uL 08/11/2024 5:31 AM EDT [facility] RBC 1.84 4.50 - 5.25 M/uL 08/11/2024 5:31 AM EDT [facility] HGB 6.0(LL) 14.0 - 16.8 g/dL 08/11/2024 5:31 AM EDT [facility] HCT 19.6(L) 40.0 - 48.4 % 08/11/2024 5:31 AM EDT LABORATORY [facility] MCV 106.5 82.0 - 99.5 fL 08/11/2024 5:31 AM EDT [facility] MCH 32.6 27.0 - 34.0 pg 08/11/2024 5:31 AM EDT [facility] MCHC 30.6 32.0 - 36.0 g/dL 08/11/2024 5:31 AM EDT [facility] RDW 13.8 11.5 - 15.5 % 08/11/2024 5:31 AM EDT [facility] PLT 67(L) 140 - 400 K/uL 08/11/2024 5:31 AM EDT [facility] MPV 13.1 6.6 - 11.1 fL 08/11/2024 5:31 AM EDT [facility] nRBCs 0 <=0 /100 WBCs 08/11/2024 5:31 AM EDT [facility] Blood Venous blood specimen / Unknown Venipuncture / Unknown 08/11/2024 5:08 AM EDT 08/11/2024 5:15 AM EDT Ishan Johnson PA-C LAB BLOOD ORD ERABLES LABORATORY [facility] [address] [place] [address] * PHOSPHORUS (08/11/2024 5:08 AM EDT) [facility] Phosphorus 3.5 2.5 - 4.8 mg/dL 08/11/2024 5:56 AM EDT [facility] Blood Venous blood specimen / Unknown Venipuncture / Unknown 08/11/2024 5:08 AM EDT 08/11/2024 5:15 AM EDT Holger Bhatt MD LAB BLOOD ORDERABLES Performing Organization Address City/[facility]/ZIP Co de Phone Number [facility] [address] [place] [address] * (ABNORMAL) MAGNESIUM (08/11/2024 5:08 AM EDT) Magnesium 1.4(L) 1.5 - 2.6 mg/dL 08/11/2024 5:56 AM EDT [facility] Blood Venous blood specimen / Unknown Venipuncture / Unknown 08/11/2024 5:08 AM EDT 08/11/2024 5:15 AM EDT Holger Bhatt MD LAB BLOOD ORDERABLES Performing Organization Address [facility] Co de Phone Number [facility] [address] [place] [address] * (ABNORMAL) BASIC METABOLIC PANEL (08/11/2024 5:08 AM EDT) BUN 70(H) 6 - 20 mg/dL 08/11/2024 5:56 AM EDT [facility] CREATININE 3.0(H) 0.6 - 1.2 mg/dL 08/11/2024 5:56 AM EDT [facility] EGFR 21(L) >=60 mL/min 08/11/2024 5:56 AM EDT [facility] Comment:eGFR is calculated b ased on the CKD-EPI 2020 equation. SODIUM 140 135 - 146 mmol/L 08/11/2024 5:56 AM EDT [facility] POTASSIUM 5.3(H) 3.5 - 5.1 mmol/L 08/11/2024 5:56 AM EDT [facility] CHLORIDE 113(H) 98 - 107 mmol/L 08/11/2024 5:56 AM EDT [facility] CO2 17(L) 22 - 32 mmol/L 08/11/2024 5:56 AM EDT [facility] ANION GAP 10 7 - 15 mmol/L 08/11/2024 5:56 AM EDT [facility] GLUCOSE 97 70 - 120 mg/dL 08/11/2024 5:56 AM EDT [facility] CALCIUM 7.9(L) 8.4 - 10.2 mg/dL 08/11/2024 5:56 AM EDT LABORATORY C Blood Venous blood specimen / Unknown Venipuncture / Unknown 08/11/2024 5:08 AM EDT 08/11/2024 5:15 AM EDT Holger Bhatt MD LAB BLOOD ORDERABLES Performing Organization Address [facility] Co de Phone Number [facility] [address] [place] [address] * (ABNORMAL) LACTATE (08/11/2024 2:06 AM EDT) Pathologist [facility] Lactate 2.2(H) 0.4 - 2.0 mmol/L 08/11/2024 2:40 AM EDT LABORATORY C Blood Venous blood specimen / Unknown Venipuncture / Unknown 08/11/2024 2:06 AM EDT 08/11/2024 2:11 AM EDT Ishan Johnson PA-C LAB BLOOD ORD ERABLES Performing Organization Address [facility] de Phone Number [facility] [address] [place] [address] * CULTURE, BLOOD (08/10/2024 11:34 PM EDT) Blood Culture Growth No growth 08/16/2024 12:01 AM EDT [facility] Blood Venous blood specimen / Unknown Venipuncture / Unknown 08/10/2024 11:34 PM EDT 08/10/2024 11:47 PM EDT Ishan Johnson PA-C LAB MICRO - G ENERAL ORDERABLES Performing Organization Address [facility] Co de Phone Number [facility] [address] [place] [address] * CULTURE, BLOOD (08/10/2024 11:30 PM EDT) Blood Culture Growth No growth 08/16/2024 12:01 AM EDT [facility] Blood Venous blood specimen / Unknown Venipuncture / Unknown 08/10/2024 11:30 PM EDT 08/10/2024 11:47 PM EDT Ishan Johnson PA-C LAB MICRO - G ENERAL ORDERABLES Performing Organization Address [facility] de Phone Number [facility] [address] [place] [address] * (ABNORMAL) TEG (THROMBOELASTOGRAPH), HEPARINASE (08/10/2024 11:06 PM EDT) Reaction Time 5.2 2.5 - 8.3 minutes 08/11/2024 12:58 AM EDT [facility] Kinetics Time 1.2 0.5 - 3.7 minutes 08/11/2024 12:58 AM EDT [facility] Alpha Angle 54.3 46.8 - 78.4 degrees 08/11/2024 12:58 AM EDT [facility] Maximum Amplitude 72.8(H) 50.6 - 72.5 mm 08/11/2024 12:58 AM EDT [facility] Coagulation Index 1.4 -3.0 - 3.0 08/11/2024 12:58 AM EDT [facility] Percent Lysis 30 0.0 0.0 - 7.5 % 08/11/2024 12:58 AM EDT [facility] Blood Arterial blood specimen / Unknown Arterial Puncture / Unknown 08/10/2024 11:06 PM EDT 08/10/2024 11:16 PM EDT Ishan Johnson PA-C LAB BLOOD ORD ERABLES Performing Organization Address [facility] Co de Phone Number [facility] [address] [place] [address] * TEG (THROMBOELASTOGRAPH) (08/10/2024 11:06 PM EDT) Reaction Time 5.4 2.5 - 8.3 minutes 08/11/2024 12:58 AM EDT [facility] Kinetics Time 1.5 0.5 - 3.7 minutes 08/11/2024 12:58 AM EDT [facility] Alpha Angle 69.2 46.8 - 78.4 degrees 08/11/2024 12:58 AM EDT [facility] Maximum Amplitude 72.3 50.6 - 72.5 mm 08/11/2024 12:58 AM EDT [facility] Coagulation Index 2.2 -3.0 - 3.0 08/11/2024 12:58 AM EDT [facility] Percent Lysis 30 0.0 0.0 - 7.5 % 024 12:58 AM EDT [facility] Blood Arterial blood specimen / Unknown Arterial Puncture / Unknown 08/10/2024 11:06 PM EDT 08/10/2024 11:16 PM EDT Narrative [facility] - 08/11/2024 12:58 AM EDT If R time > 20 minutes and no clot formed suggesting hypocoagulable state or interfering substance (anticoagulation). Consider resubmitting a new sample and/or checking PT/INR, aPTT, fibrinogen, and platelet count. Ishan Johnson PA-C LAB BLOOD ORD ERABLES Performing Organization Address City/State/[facility] Co de Phone Number [facility] [address] [place] [address] * (ABNORMAL) CBC (08/10/2024 11:06 PM EDT) WBC 19.95(H) 4.00 - 10.80 K/uL 08/10/2024 11:39 PM EDT [facility] RBC 2.36 4.50 - 5.25 M/uL 08/10/2024 11:39 PM EDT [facility] HGB 7.7(L) 14.0 - 16.8 g/dL 08/10/2024 11:39 PM EDT [facility] HCT 24.9(L) 40.0 - 48.4 % 08/10/2024 11:39 PM EDT [facility] MCV 105.5 82.0 - 99.5 fL 08/10/2024 11:39 PM EDT [facility] MCH 32.6 27.0 - 34.0 pg 08/10/2024 11:39 PM EDT [facility] MCHC 30.9 32.0 - 36.0 g/dL 08/10/2024 11:39 PM EDT [facility] RDW 13.9 11.5 - 15.5 % 08/10/2024 11:39 PM EDT [facility] PLT 96(L) 140 - 400 K/uL 08/10/2024 11:39 PM EDT [facility] MPV 14.0 6.6 - 11.1 fL 08/10/2024 11:39 PM EDT [facility] nRBCs 0 <=0 /100 WBCs 08/10/2024 11:39 PM EDT [facility] Blood Venous blood specimen / Unknown Venipuncture / Unknown 08/10/2024 11:06 PM EDT 08/10/2024 11:16 PM EDT Ishan Johnson PA-C LAB BLOOD ORD ERABLES [facility] [address] [place] [address] * CULTURE, URINE, QUANTITATIVE (08/10/2024 11:01 PM EDT) Culture Growth No significant growth 08/12/2024 7:37 AM EDT [facility] Urine Urine specimen / Unknown Non-blood Collection / Unknown 08/10/2024 11:01 PM EDT 08/10/2024 11:15 PM EDT Ishan Johnson PA-C LAB MICRO - G ENERAL ORDERABLES [facility] [address] [place] [address] * (ABNORMAL) URINALYSIS, REFLEX TO CULTURE (08/10/2024 11:01 PM EDT) Color, Urine Yellow Colorless, Light Yellow, Yellow, Dark Yellow 08/10/2024 11:57 PM EDT [facility] Clarity, Urine Slightly Cloudy(A) Clear 08/10/2024 11:57 PM EDT [facility] Glucose, Urine Negative Negative mg/dL 08/10/2024 11:57 PM EDT [facility] Bilirubin, Urine Negative Negative 08/10/2024 11:57 PM EDT LABORATORY C Ketone, Urine Negative Negative mg/dL 08/10/2024 11:57 PM EDT [facility] Specific [place], Urine 1.020 1.003 - 1.030 08/10/2024 11:57 PM EDT [facility] Blood, Urine Small(A) Negative 08/10/2024 11:57 PM EDT [facility] pH, Urine 5.0 5.0 - 7.5 Units 08/10/2024 11:57 PM EDT [facility] Protein, Urine Trace(A) Negative mg/dL 08/10/2024 11:57 PM EDT [facility] Urobilinogen, Urine Normal Normal mg/dL 08/10/2024 11:57 PM EDT [facility] Nitrite, Urine Negative Negative 08/10/2024 11:57 PM EDT [facility] Esterase, Urine Large(A) Negative 08/10/2024 11:57 PM EDT [facility] RBC, Urine 6-9(A) 0 - 2 /HPF 08/10/2024 11:57 PM EDT LABORATORY C WBC, Urine 50+(A) 0 - 2 /HPF 08/10/2024 11:57 PM EDT [facility] Bacteria, Urine >200(A) 0 - 25 /HPF 08/10/2024 11:57 PM EDT LABORATORY C Hyaline, Cast, Urine 1-4(A) None /LPF 08/10/2024 11:57 PM EDT [facility] WBC Clumps, Urine Present(A) None /HPF 08/10/2024 11:57 PM EDT [facility] Culture, Urine 08/10/2024 11:57 PM EDT [facility] Comment:Quantitative urine c ulture to be performed Urine Urine specimen / Unknown Non-blood Collection / Unknown 08/10/2024 11:01 PM EDT 08/10/2024 11:15 PM EDT Ishan Johnson PA-C LAB URINE ORD ERABLES Performing Organization Address [facility]/ZIP Co de Phone Number [facility] [address] [place] [address] * URINALYSIS, REFLEX TO CULTURE (CUP ONLY) (08/10/2024 11:01 PM EDT) Urinalysis, Reflex to Culture Specimen Specimen collected and received 08/11/2024 1:01 AM EDT [facility] Urine Urine specimen / Unknown Non-blood Collection / Unknown 08/10/2024 11:01 PM EDT 08/10/2024 11:16 PM EDT Ishan Johnson PA-C LAB URINE ORD ERABLES Performing Organization Address [facility] Co de Phone Number [facility] [address] [place] [address] * (ABNORMAL) CBC (08/10/2024 8:26 PM EDT) WBC 17.40(H) 4.00 - 10.80 K/uL 08/10/2024 9:14 PM EDT [facility] RBC 2.37 4.50 - 5.25 M/uL 08/10/2024 9:14 PM EDT LABORATORY [facility] HGB 7.8(L) 14.0 - 16.8 g/dL 08/10/2024 9:14 PM EDT LABORATORY [facility] HCT 24.7(L) 40.0 - 48.4 % 08/10/2024 9:14 PM EDT LABORATORY [facility] MCV 104.2 82.0 - 99.5 fL 08/10/2024 9:14 PM EDT LABORATORY [facility] MCH 32.9 27.0 - 34.0 pg 08/10/2024 9:14 PM EDT LABORATORY [facility] MCHC 31.6 32.0 - 36.0 g/dL 08/10/2024 9:14 PM EDT LABORATORY [facility] RDW 14.0 11.5 - 15.5 % 08/10/2024 9:14 PM EDT [facility]ORY [facility] PLT 89(L) 140 - 400 K/uL 08/10/2024 9:14 PM EDT [facility] MPV 13.9 6.6 - 11.1 fL 08/10/2024 9:14 PM EDT [facility] nRBCs 0 <=0 /100 WBCs 08/10/2024 9:14 PM EDT [facility] Blood Venous blood specimen / Unknown Venipuncture / Unknown 08/10/2024 8:26 PM EDT 08/10/2024 8:31 PM EDT Holger Bhatt MD LAB BLOOD ORDERABLES Performing Organization Address City/[facility]/ZIP Co de Phone Number [facility]ATORY [facility] [address] [place] [address] * MRSA SCREEN, PCR (08/10/2024 4:41 PM EDT) Pathologist [facility] MRSA PCR Result Negative Negative 7:37 PM EDT LAB[facility] Comment:No Methicillin resis tant Staphylococcus aureus detected by PCR (amplified probe). Upper Respiratory Swab of internal nose / Unknown Non-blood Collection / Unknown 08/10/2024 4:41 PM EDT 08/10/2024 5:12 PM EDT Holger Bhatt MD LAB MICRO - GENERAL ORDERABLES Performing Organization Address City/[facility]/ZIP Co de Phone Number [facility]ATORY [facility] [address] [place] [address] * (ABNORMAL) PROCALCITONIN (08/10/2024 3:53 PM EDT) Procalcitonin 0.36(H) <0.10 ng/mL 08/11/2024 2:14 AM EDT [facility] Blood Arterial blood specimen / Unknown Arterial Line / Unknown 08/10/2024 3:53 PM EDT 08/10/2024 4:01 PM EDT Narrative [facility] - 08/11/2024 2:14 AM EDT Less than 0.5 ng/mL: Low risk for progression to sepsis. Review patients condition for localized infections. 0.5 to 2.0 ng/mL: Intermediate risk for progresion to sepsis. Review underlying conditions. Recommend repeat PCT after 6 hours has elapsed. Greater than 2.0 ng/mL: high risk for progression to sepsis unless other causes are known. Ishan Johnson PA-C LAB BLOOD ORD ERABLES Performing Organization Address [facility] Co de Phone Number [facility]ATORY [facility] [address] [place] [address] * PT INR (08/10/2024 3:53 PM EDT) Prothrombin Time 14.6 11.6 - 15.2 seconds 08/10/2024 4:24 PM EDT LAB[facility] INR 1.1 0.8 - 1.2 08/10/2024 4:24 PM EDT [facility] Blood Arterial blood specimen / Unknown Arterial Line / Unknown 08/10/2024 3:53 PM EDT 08/10/2024 4:01 PM EDT [facility] - 08/10/2024 4:24 PM EDT Warfarin Therapy INR: 2.0-3.0 conventional anticoagulation INR: 2.5-3.5 high intensity anticoagulation Holger Bhatt MD LAB BLOOD ORDERABLES Performing Organization Address [facility] de Phone Number LABORATORY [address] [address] * (ABNORMAL) BASIC METABOLIC PANEL (08/10/2024 3:53 PM EDT) BUN 75(H) 6 - 20 mg/dL 08/10/2024 4:30 PM EDT LAB[facility]ATORY [facility] CREATININE 2.6(H) 0.6 - 1.2 mg/dL 08/10/2024 4:30 PM EDT LABORATORY C EGFR 25(L) >=60 mL/min 08/10/2024 4:30 PM EDT [facility] Comment:eGFR is calculated b ased on the CKD-EPI 2020 equation. SODIUM 137 135 - 146 mmol/L 08/10/2024 4:30 PM EDT [facility] POTASSIUM 4.9 3.5 - 5.1 mmol/L 08/10/2024 4:30 PM EDT [facility] CHLORIDE 105 98 - 107 mmol/L 08/10/2024 4:30 PM EDT [facility] CO2 19(L) 22 - 32 mmol/L 08/10/2024 4:30 PM EDT [facility] ANION GAP 13 7 - 15 mmol/L 08/10/2024 4:30 PM EDT [facility] GLUCOSE 146(H) 70 - 120 mg/dL 08/10/2024 4:30 PM EDT [facility] CALCIUM 10.4(H) 8.4 - 10.2 mg/dL 08/10/2024 4:30 PM EDT [facility] Blood Arterial blood specimen / Unknown Arterial Line / Unknown 08/10/2024 3:53 PM EDT 08/10/2024 4:01 PM EDT Holger Bhatt MD LAB BLOOD ORDERABLES [facility] [address] [place] [address] * (ABNORMAL) CBC (08/10/2024 3:53 PM EDT) WBC 8.38 4.00 - 10.80 K/uL 08/10/2024 5:16 PM EDT [facility] RBC 2.85 4.50 - 5.25 M/uL 08/10/2024 5:16 PM EDT [facility] HGB 9.4(L) 14.0 - 16.8 g/dL 08/10/2024 5:16 PM EDT [facility] HCT 30.0(L) 40.0 - 48.4 % 08/10/2024 5:16 PM EDT [facility] MCV 105.3 82.0 - 99.5 fL 08/10/2024 5:16 PM EDT [facility] MCH 33.0 27.0 - 34.0 pg 08/10/2024 5:16 PM EDT [facility] MCHC 31.3 32.0 - 36.0 g/dL 08/10/2024 5:16 PM EDT [facility] RDW 13.9 11.5 - 15.5 % 08/10/2024 5:16 PM EDT [facility] PLT 90(L) 140 - 400 K/uL 08/10/2024 5:16 PM EDT [facility] MPV 13.7 6.6 - 11.1 fL 08/10/2024 5:16 PM EDT [facility] nRBCs 0 <=0 /100 WBCs 08/10/2024 5:16 PM EDT [facility] Blood Arterial blood specimen / Unknown Arterial Line / Unknown 08/10/2024 3:53 PM EDT 08/10/2024 4:01 PM EDT Holger Bhatt MD LAB BLOOD ORDERABLES [facility] [address] [place], [place] [id number] * (ABNORMAL) GLUCOSE METER, POINT OF CARE (08/10/2024 12:31 PM EDT) GLUCOSE - POCT 175(H) 70 - 120 mg/dL 08/11/2024 8:20 AM EDT [employer] Blood Whole blood specimen / Unknown 08/10/2024 12:31 PM EDT 08/11/2024 8:20 AM EDT Bre Pastrana DO LAB POINT OF CARE TE ST DOCKED DEVICE UNSOLICITED RESULTS [facility] [address] [place] [address] * GLUCOSE METER, POINT OF CARE (08/10/2024 10:01 AM EDT) GLUCOSE - POCT 117 70 - 120 mg/dL 08/11/2024 8:20 AM EDT [employer] Blood Whole blood specimen / Unknown 08/10/2024 10:01 AM EDT 08/11/2024 8:20 AM EDT Bre Pastrana DO LAB POINT OF CARE TE ST DOCKED DEVICE UNSOLICITED RESULTS [facility] [address] [place] [address] * SURGICAL PATHOLOGY (08/10/2024 9:40 AM EDT) Final Diagnosis A. Skin and soft tissue, [...] One lymph node, negative for carcinoma (0/1) 08/17/2024 7:30 PM EDT [facility] Order Comments double clip at 12:00, triple clip at 9:00; stitch at 3:00 08/17/2024 7:30 PM EDT [facility] Gross Description A. Neck. Received fresh for frozen section interpretation with a container labeled with "Kennedy Davis", "[id number]", "1945" and " composite resection, left cutaneous and deep neck". A soft tissue excision oriented with a double clip at 12:00, a triple clip at 9:00, and a single suture at 3:00 (6.8 cm from 12-6:00, 8.3 cm from 3-9:00, maximum depth of 1.3 cm). The epidermis is remarkable for an ill-defined, red ulcerated firm lesion (7.4 x 5 cm), surrounded by a thin rim of white-smallwood, grossly unremarkable skin. Upon sectioning, the cut surfaces through the lesion demonstrate extension to the deep margin. The specimen is inked as follows: 12-3:00 = green, 3-6:00 = yellow, 6-9:00 = blue, and 9-12:00 = orange. The specimen is entirely submitted for frozen section interpretation, in cassettes FSA1-FSA 24, as follows and per the attached diagram: FSA 1. 6:00 position, perpendicular section (central aspect inked jomar) FSA 2. 12:00 position, perpendicular section (central aspect inked jomar) FSA 3. 3:00 position, perpendicular section (central aspect inked jomar) FSA 4. 9:00 position, perpendicular section (central aspect inked jmoar) FSA 5-FSA 9. 12-3:00 quadrant FSA 10-FSA 13. 6-3:00 quadrant FSA 14-FSA 18. 6-9:00 quadrant FSA 19-FSA 24. 12-9:00 quadrant Gross By: SHAZIA BAvel Neck. Received in formalin with a container labeled with "Vilynx", "[id number]", "1945" and " left level 2". Multiple fragments of yellow, lobulated markedly cauterized adipose tissue (5 x 3.5 x 0.8 cm in aggregate). Palpation and dissection reveals no definitive lymph nodes. The specimen is entirely submitted in cassettes B1-B4. Gross By: SHAZIA Pabon Neck. Received in formalin with a container labeled with "Vilynx", "[id number]", "1945" and " left level 2B". Multiple fragments of yellow, lobulated markedly cauterized adipose tissue (3.2 x 3 x 1 cm). Palpation and dissection reveals no definitive lymph nodes. The specimen is entirely submitted in cassettes C1-C3. Gross By: SHAZIA Ramos Neck. Received in formalin with a container labeled with "Vilynx", "[id number]", "1945" and " left level 5A". A portion of yellow, lobulated markedly cauterized adipose tissue (4.5 x 1.7 x 1.1 cm). Palpation and dissection reveals two possible lymph node, 0.2 and 0.3 cm in greatest dimension). The fat is trimmed, and the lymph nodes are entirely submitted intact in cassette D1. Gross By: SHAZIA Aleman Neck. Received in formalin with a container labeled with "Vilynx", "[id number]", "1945" and " left level 5B". A portion of yellow, lobulated markedly cauterized adipose tissue (2 x 1.8 x 0.9 cm). Palpation and dissection reveals no definitive lymph nodes. The specimen is entirely submitted in cassette E1. Gross By: SHAZIA F. Neck. Received in formalin with a container labeled with "Kennedy Davis", "[id number]", "1945" and " left level 4". A portion of yellow, lobulated markedly cauterized adipose tissue (1.6 x 1.2 x 0.8 cm). Palpation and dissection reveals a single possible lymph node (0.2 cm in greatest dimension). The fat is trimmed, and the lymph node is entirely submitted intact in cassette F1. Gross By: SHAZIA 08/17/2024 7:30 PM EDT [facility] Microscopic Description A. There is a broad epidermal ulcer with blood, fibrin, and mixed inflammation. There is abundant Gel-Foam material in the base of this ulcer with prominent granulomatous reaction and mixed inflammation. There is robust granulation tissue and scar beneath the ulcer which partially incorporates underlying skeletal muscle. There is skeletal muscle atrophy. Portions of benign parotid gland tissue are present within the specimen. Some areas of prominent benign reactive squamous sialometaplasia are present within the salivary gland tissue (best seen on block A18 and A4). No residual squamous cell carcinoma is identified on examined sections (the entire specimen was submitted for microscopic evaluation). Three small benign subcutaneous lymph nodes are present (two in block A12 and one in block A6). 08/17/2024 7:30 PM EDT [facility] Intraoperative Diagnosis A. Neck. excision Frozen Section/Intraoper ative Diagnosis: Benign reactive per Dr. Peguero reported to Dr. Tovar on 08/10/2024 at 10:39 AM (preliminary) and 11:47 AM (final). 08/17/2024 7:30 PM EDT [facility] Sign Out Location Pathologist sign out performed at [facility] ([facility] [address] [place] [id number]. 08/17/2024 7:30 PM EDT [facility] Photographic images and diagrams represent lewis findings in this case; they are not intended to replace a complete review of the final diagnostic report. The following statement applies to Flow Cytometry, Histology, In situ Hybridization Assays and Molecular Genetics. This test was developed and performed at [facility] and its performance characteristics determined by [facility]. It has not been cleared or approved by the U.S. Food and Drug Administration. The FDA has determined that such clearance or approval is not necessary. This test is used for clinical purposes. It should not be regarded as investigational or for research. Special stains, including histochemical stains, and studies using immunologic and GLENDY methodology (where applicable) are performed with appropriate positive and negative control reactions. 08/17/2024 7:30 PM EDT [facility] Tissue Neck structure / Unknown 08/10/2024 9:40 AM EDT 08/10/2024 9:47 AM EDT Comment:double clip at 12:00 , triple clip at 9:00; stitch at 3:00 Specimen from wound (specimen) Neck structure / Unknown 08/10/2024 10:02 AM EDT 08/10/2024 8:25 PM EDT Specimen from wound (specimen) Neck structure / Unknown 08/10/2024 9:55 AM EDT 08/10/2024 8:25 PM EDT Specimen from wound (specimen) Neck structure / Unknown 08/10/2024 10:14 AM EDT 08/10/2024 8:25 PM EDT Specimen from wound (specimen) Neck structure / Unknown 08/10/2024 10:14 AM EDT 08/10/2024 8:25 PM EDT Specimen from wound (specimen) Neck structure / Unknown 08/10/2024 10:18 AM EDT 08/10/2024 8:25 PM EDT Lexie Aldridge MD LAB PATHOLOGY OR DERABLES [facility] [address] [place] [address] * GLUCOSE METER, POINT OF CARE (08/10/2024 6:51 AM EDT) Pathologist [facility] GLUCOSE - POCT 84 70 - 120 mg/dL 08/10/2024 7:13 AM EDT [facility] [employer] Blood Whole blood specimen / Unknown 08/10/2024 6:51 AM EDT 08/10/2024 7:13 AM EDT Lexie Aldridge MD LAB POINT OF CAR E TEST DOCKED DEVICE UNSOLICITED RESULTS Performing Organization Address City/State/[facility] Co de Phone Number [facility] [address] [place] [address] * TYPE AND SCREEN (08/10/2024 6:47 AM EDT) ABO A 08/10/2024 7:35 AM EDT LABORATORY [facility] Rh Positive 08/10/2024 7:35 AM EDT LABORATORY [facility] Red Blood Cell Antibody Screen Negative 08/10/2024 7:35 AM EDT LABORATORY [facility] Specimen Expiration Date 08/13/2024 23:59 08/10/2024 7:35 AM EDT LAB[facility] Blood Venous blood specimen / Unknown Venipuncture / Unknown 08/10/2024 6:47 AM EDT 08/10/2024 6:52 AM EDT Lexie Aldridge MD LAB BLOOD BANK T EST ORDERABLES Performing Organization Address City/State/[facility] Co de Phone Number LAB[facility]ATORY [facility] [address] [place] [address] documented in this encounter Visit Diagnoses Diagnosis SCC (squamous cell carcinoma)- Primary Squamous cell carcinoma of skin, site unspecified Post-operative state Other postprocedural status SCC (squamous cell carcinoma) Squamous cell carcinoma of skin, site unspecified 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, face, and neck Chest pain Chest pain, unspecified Generalized edema Edema Encounter for examination of blood pressure without abnormal findings Other specified examination Hematoma of left chest wall, subsequent encounter Post-operative state Other postprocedural status Postoperative anemia due to acute blood loss Acute posthemorrhagic anemia Essential hypertension Unspecified essential hypertension Gastroesophageal reflux disease without esophagitis Esophageal reflux Dyslipidemia, goal LDL below 70 Other and unspecified hyperlipidemia Paroxysmal atrial fibrillation (HCC) Atrial fibrillation CKD (chronic kidney disease) stage 4, GFR 15-29 ml/min (HCC) Chronic kidney disease, Stage IV (severe) COPD, moderate (HCC) Chronic airway obstruction, not elsewhere classified Chronic anticoagulation Long-term (current) use of anticoagulants Atherosclerotic heart disease of [place] coronary artery without angina pectoris Coronary atherosclerosis of [place] coronary artery Hematoma of left chest wall LIZZ (acute kidney injury) (HCC) Acute kidney failure, unspecified Acquired hypothyroidism Unspecified hypothyroidism 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 NOTE: Maximum of 4000 mg per 24 hours of acetaminophen from all acetaminophen containing products., Indication: Patient is strictly NPO Rate Verify 08/14/2024 5:00 AM EDT 4,000 mg/hr 400 mL/hr New Bag 08/14/2024 4:56 AM EDT 1,000 mg 400 mL/hr Acetaminophen (Tylenol) tab 650 mg 650 mg, Oral, Q6H PRN Fever >38C(100.5F), Starting on Wed08/11/24 at 0415, Until Wed08/11/24 at 0509, Maximum of 4 grams (4000 mg) per day. Given 08/11/2024 4:21 AM EDT 650 mg Acetaminophen (Tylenol) tab 975 mg 975 mg, Oral, PREOP, First dose on Veronica 08/10/24 at 0645, Last dose on Wed08/10/24 at 0645, For 1 dose, Maximum 4 g acetaminophen/day. Avoid in patients with severe hepatic impairment or severe active liver disease. Administer 60 minutes prior to OR., Pre-Op Given 08/10/2024 6:36 AM EDT 975 mg Acetaminophen (Tylenol) tab 975 mg 975 mg, Oral, Q6H, First dose on Wed08/11/24 at 0600, Until Discontinued, Maximum of 4 grams (4000 mg) per day. Given 08/14/2024 12:08 AM EDT 975 mg Given 08/13/2024 2:07 PM EDT 975 mg Given 08/13/2024 4:31 AM EDT 975 mg Acetaminophen (Tylenol) tab 975 mg 975 mg, Oral, Q8H, First dose on 08/14/24 at 1400, Until Discontinued, Maximum of 4 grams (4000 mg) per day. Given 08/22/2024 1:48 PM EDT 975 mg Given 08/22/2024 5:38 AM EDT 975 mg Given 08/21/2024 9:36 PM EDT 975 mg albumin (human) (Plasbumin-5) 5 % infusion 25 g Intravenous, at 500 mL/hr, Please scan automotive lot attendant "square" 2D barcode to record Lot/ Expiration, ONCE, 1 dose, On Wed08/11/24 at 0215 KVO 08/11/2024 2:55 AM EDT 5 mL/hr Rate Verify 08/11/2024 2:24 AM EDT 500 mL/hr New Bag 08/11/2024 1:57 AM EDT 25 g 500 mL/hr albumin (human) (Plasbumin-5) 5 % infusion 25 g Intravenous, at 500 mL/hr, Please scan automotive lot attendant "square" 2D barcode to record Lot/ Expiration, ONCE, 1 dose, On Wed08/11/24 at 0730 New Bag 08/11/2024 7:23 AM EDT 25 g 500 mL/hr Albuterol Sulfate (Proventil) (2.5 MG/3ML) 0.083% inhalation solution 2.5 mg 2.5 mg, Nebulizer, BID (.AM/PM), First dose on Wed08/10/24 at 2100, Until Discontinued Given 08/22/2024 8:58 AM EDT 2.5 mg Given 08/21/2024 9:12 PM EDT 2.5 mg Given 08/21/2024 9:04 AM EDT 2.5 mg Allopurinol (Zyloprim) tab 200 mg 200 mg, Oral, Daily(AM), First dose on Wed08/11/24 at 0900, Until Discontinued Given 08/22/2024 9:13 AM EDT 200 mg Given 08/21/2024 8:12 AM EDT 200 mg Given 08/20/2024 8:26 AM EDT 200 mg ampicillin-sulbactam in NSS (Unasyn) ivpb 3 g 3 g, IV Piggyback, Q12H, 2 doses, First dose (after last reorder) on 08/13/24 at 0945, Last dose on 08/13/24 at 2100, MIX BEFORE ADMINISTERING! New Bag 08/13/2024 9:14 PM EDT 3 g 210 mL/hr New Bag 08/13/2024 10:17 AM EDT 3 g 210 mL/hr ampicillin-sulbactam in NSS (Unasyn) ivpb 3 g 3 g, IV Piggyback, Q12H, 2 doses, First dose (after last reorder) on Wed08/14/24 at 0900, Last dose on Wed08/14/24 at 2100, MIX BEFORE ADMINISTERING! New Bag 08/14/2024 9:43 PM EDT 3 g 210 mL/hr New Bag 08/14/2024 9:11 AM EDT 3 g 210 mL/hr Apixaban (Eliquis) tab 5 mg 5 mg, Oral, BID (.AM/PM), First dose on Wed08/21/24 at 0915, Until Discontinued Given 08/22/2024 9:13 AM EDT 5 mg Given 08/21/2024 9:36 PM EDT 5 mg Given 08/21/2024 11:22 AM EDT 5 mg aquaphilic (Aquaphor) ointment Topical, TID(AM/NOON/HS), First dose on Veronica 08/17/24 at 0745, Until Discontinued, Apply to skin graft and neck incision Given 08/22/2024 1:19 PM EDT Given 08/22/2024 5:38 AM EDT Given 08/21/2024 9:36 PM EDT atorvaSTATin (Lipitor) tab 20 mg 20 mg, Oral, HS, First dose on Wed08/10/24 at 2200, Until Discontinued Given 08/21/2024 9:36 PM EDT 20 mg Given 08/20/2024 9:14 PM EDT 20 mg Given 08/19/2024 9:14 PM EDT 20 mg bacitracin zinc ointment Topical, BID (.AM/PM), First dose on Wed08/10/24 at 2100, Until Discontinued, Apply to: Left neck Given 08/16/2024 8:50 PM EDT Given 08/16/2024 8:57 AM EDT Given 08/15/2024 9:17 PM EDT Bisacodyl (Dulcolax) supp 10 mg 10 mg, Rectal, DAILY PRN Constipation, Starting on Wed08/16/24 at 1506, Until Wed08/22/24 at 2240 Given 08/16/2024 3:23 PM EDT 10 mg Calcitriol (Rocaltrol) cap 0.25 mcg 0.25 mcg, Oral, Daily(AM), First dose on Wed08/11/24 at 0900, Until Discontinued Given 08/22/2024 9:13 AM EDT 0.25 mcg Given 08/21/2024 8:13 AM EDT 0.25 mcg Given 08/20/2024 8:26 AM EDT 0.25 mcg ceFAZolin in dextrose (Ancef) ivpb 1 g 1 g, IV Piggyback, Q12H, 10 doses, First dose (after last modification) on Wed08/10/24 at 1645, Last dose on Wed08/15/24 at 0900 New Bag 08/10/2024 5:33 PM EDT 1 g 100 mL/hr ceFAZolin in dextrose (Ancef) ivpb 1 g 1 g, IV Piggyback, Q12H, First dose on Wed08/11/24 at 1115, Until Discontinued New Bag 08/12/2024 9:22 AM EDT 1 g 100 mL/hr New Bag 08/11/2024 9:23 PM EDT 1 g 100 mL/hr New Bag 08/11/2024 12:09 PM EDT 1 g 100 mL/hr cefepime in dextrose premix ivpb 2 g 2 g, IV Piggyback, ONCE, 1 dose, On Wed08/11/24 at 0215, Administer over 30 Minutes Rate Verify 08/11/2024 2:17 AM EDT 4 g/hr 100 mL/hr New Bag 08/11/2024 2:00 AM EDT 2 g 100 mL/hr Cephalexin (Keflex) cap 500 mg 500 mg, Oral, Q8H, First dose on Wed08/12/24 at 2200, Last dose on Wed08/17/24 at 1400, For 5 days Given 08/13/2024 4:31 AM EDT 500 mg Given 08/12/2024 9:00 PM EDT 500 mg Cephalexin (Keflex) cap 500 mg 500 mg, Oral, Q8H, First dose (after last reorder) on Wed08/15/24 at 1400, Last dose on Wed08/17/24 at 2200, For 8 doses Given 08/17/2024 5:43 AM EDT 500 mg Given 08/16/2024 8:50 PM EDT 500 mg Given 08/16/2024 1:12 PM EDT 500 mg chlorHEXIDINE (Periogard) 0.12 % oral rinse 15 mL 15 mL, Oral mucosal membrane, BID (799,1999), First dose on Wed08/10/24 at 2000, Until Discontinued, Include oral/gum/tooth brushing with medication. Use prepackaged oral kit suction tooth brush if available. Given 08/14/2024 9:30 PM EDT 15 mL Given 08/13/2024 8:52 PM EDT 15 mL Given 08/12/2024 7:55 PM EDT 15 mL CYANOCOBALAMIN (vitamin B-12) tab 1,000 mcg 1,000 mcg, Oral, Daily(AM), First dose on Wed08/17/24 at 0900, Until Discontinued Given 08/22/2024 9:13 AM EDT 1,000 mcg Given 08/21/2024 8:12 AM EDT 1,000 mcg Given 08/20/2024 8:26 AM EDT 1,000 mcg Docusate Sodium (Colace) cap 100 mg 100 mg, Oral, BID (.AM/PM), First dose on Wed08/11/24 at 2100, Until Discontinued, For oral administration ONLY, if route of administration is other than oral and alternative product must be ordered. Given 08/21/2024 9:36 PM EDT 100 mg Given 08/20/2024 9:14 PM EDT 100 mg Given 08/19/2024 9:13 PM EDT 100 mg Enoxaparin (Lovenox) inj 30 mg 30 mg, Subcutaneous, ONCE, On Wed08/10/24 at 0645, For 1 dose, If patient is on warfarin, inform provider if daily INR value is 2 or greater!, Pre-Op Given 08/10/2024 6:36 AM EDT 30 mg Abdomen Left Lower folic acid tab 1 mg 1 mg, Oral, Daily(AM), First dose on Veronica 08/17/24 at 0900, Until Discontinued Given 08/22/2024 9:13 AM EDT 1 mg Given 08/21/2024 8:13 AM EDT 1 mg Given 08/20/2024 8:26 AM EDT 1 mg hEParin inj 5,000 Units 5,000 Units, Subcutaneous, Q8H, First dose on 08/12/24 at 1400, Until Discontinued Given 08/13/2024 6:23 AM EDT 5,000 Units Abdomen Right Lower Given 08/12/2024 8:55 PM EDT 5,000 Units A bdomen Left Lower Given 08/12/2024 2:02 PM EDT 5,000 Units A bdomen Right Upper hEParin inj 5,000 Units 5,000 Units, Subcutaneous, Q8H, First dose on 08/14/24 at 2200, Until Discontinued Given 08/21/2024 5:32 AM EDT 5,000 Units Abdomen Right Upper Given 08/20/2024 9:15 PM EDT 5,000 Units A bdomen Left Lower Given 08/20/2024 1:35 PM EDT 5,000 Units A bdomen Right Lower HYDROmorphone (Dilaudid) inj 0.2 mg 0.2 mg, IV Push, Q4H PRN Pain, Severe, Starting on Veronica 08/10/24 at 1513, Until Veronica 08/17/24 at 0712 Given 08/17/2024 6:00 AM EDT 0.2 mg Given 08/14/2024 10:22 AM EDT 0.2 mg Given 08/13/2024 8:52 PM EDT 0.2 mg HYDROmorphone (Dilaudid) inj 0.5 mg 0.5 mg, IV Push, ONCE, On Veronica 08/10/24 at 1600, For 1 dose Given 08/10/2024 3:44 PM EDT 0.5 mg Iron Dextran (Infed) 975 mg in NSS 250 mL INFUSION 975 mg, IV Piggyback, ONCE, 1 dose, On Wed08/16/24 at 1415, Administer over 1 Hours, - Administer iron dextran infusion bag over 1 hour - Monitor for infusion reactions with vitals at 30 minutes and 60 minutes after starting the infusion. - If patient develops sign/symptoms of reaction or vital signs outside normal limits: 1) STOP infusion 2) CONTACT physician 08/16/2024 3:15 PM EDT 975 mg 274.5 mL/hr Iron Dextran [...] to test dose, ONCE, 1 dose, On Wed08/16/24 at 1315 Given 08/16/2024 3:00 PM EDT 25 mg isolyte 1,000 mL bolus infusion Intravenous, Administer entire volume within 60 minutes or less. Plasma-LYTE 148, isolyte-S, and isolyte-S pH 7.4 are considered equivalent - including for MAR barcode scanning., ONCE, 1 dose, On Wed08/11/24 at 0915 New Bag 08/11/2024 8:59 AM EDT 1,000 mL 1000 mL/hr isolyte 1,000 mL bolus infusion Intravenous, Administer entire volume within 60 minutes or less. Plasma-LYTE 148, isolyte-S, and isolyte-S pH 7.4 are considered equivalent - including for MAR barcode scanning., ONCE, 1 dose, On Wed08/13/24 at 1100 New Bag 08/13/2024 10:25 AM EDT 1,000 mL 999 mL/hr isolyte 500 mL bolus infusion Intravenous, Administer entire volume within 60 minutes or less. Plasma-LYTE 148, isolyte-S, and isolyte-S pH 7.4 are considered equivalent - including for MAR barcode scanning., ONCE, 1 dose, On Wed08/14/24 at 0645 New Bag 08/14/2024 6:50 AM EDT 500 mL 1000 mL/hr isolyte-S pH 7.4 infusion Intravenous, at 100 mL/hr, For Periop use. Plasma-LYTE 148, isolyte-S, and isolyte-S pH 7.4 are considered equivalent - including for MAR barcode scanning., CONTINUOUS, Starting on Wed08/10/24 at 0645, Until Wed08/10/24 at 1444, Pre-Op Restarted 08/10/2024 11:21 AM EDT Continue from Pre-Op 08/10/2024 7:59 AM EDT 100 mL/hr New Bag 08/10/2024 6:37 AM EDT 100 mL/hr isolyte-S pH 7.4 infusion Intravenous, at 75 mL/hr, Plasma-LYTE 148, isolyte-S, and isolyte-S pH 7.4 are considered equivalent - including for MAR barcode scanning., CONTINUOUS, Starting on 08/13/24 at 1400, Until 08/14/24 at 1047 New Bag 08/14/2024 10:03 AM EDT 75 mL/hr Rate Verify 08/14/2024 6:00 AM EDT 75 mL/hr Rate Verify 08/14/2024 5:00 AM EDT 75 mL/hr labetalol (Trandate) inj 10 mg 10 mg, Intravenous, Q6H PRN Hypertension, Starting on Wed08/10/24 at 1619, Until Wed08/10/24 at 1801 Given 08/10/2024 4:26 PM EDT 10 mg labetalol (Trandate) inj 10 mg 10 mg, Intravenous, Q6H PRN Hypertension, sys>180 hld for rate <60, Starting on Wed08/10/24 at 1801, Until Wed08/22/24 at 2240 Given 08/12/2024 9:08 AM EDT 10 mg levothyroxine (Levoxyl) tab 50 mcg 50 mcg, Oral, [id number], First dose on Wed08/11/24 at 0630, Until Discontinued Given 08/22/2024 5:38 AM EDT 50 mcg Given 08/21/2024 5:32 AM EDT 50 mcg Given 08/20/2024 6:30 AM EDT 50 mcg Lidocaine (Aspercreme) 4 % patch 1 Patch 1 Patch, Transdermal, Daily(AM), First dose (after last modification) on Wed08/15/24 at 1830, Until Discontinued, Apply patch for 12 hours then remove for 12 hours! Remove any Lidocaine patches the patient may currently be wearing prior to applying the new patch Patch Applied 08/20/2024 6:04 PM EDT 1 Patch Back Middle Patch Applied 08/19/2024 5:24 PM EDT 1 Patch Back Middle Patch Applied 08/18/2024 5:35 PM EDT 1 Patch Shoulder Left magnesium sulfate 1 g in d5w 100mL LOCKED DOSE 1 g, IV Piggyback, ONCE, 1 dose, On Wed08/11/24 at 0815, Administer over 60 Minutes New Bag 08/11/2024 9:01 AM EDT 1 g 100 mL/hr metoprolol succinate XL (toPROL XL) tab 25 mg 25 mg, Oral, Daily(AM), First dose (after last reorder) on Wed08/17/24 at 0900, Until Discontinued, Hold for HR less than 60 or SBP below 100 and notify service if dose is held This med should NOT be Crushed or Chewed. Given 08/22/2024 9:14 AM EDT 25 mg Given 08/21/2024 8:13 AM EDT 25 mg Given 08/20/2024 8:26 AM EDT 25 mg Metoprolol Tartrate (Lopressor) inj 2.5 mg 2.5 mg, IV Push, ONCE, On Wed08/14/24 at 0045, For 1 dose Given 08/14/2024 12:12 AM EDT 2.5 mg NSS 0.9% 500 mL bolus infusion Intravenous, at 500 mL/hr Administer over 60 Minutes, Administer entire volume within 60 minutes or less., ONCE, 1 dose, On Wed08/11/24 at 0430 New Bag 08/11/2024 4:00 AM EDT 500 mL 50 0 mL/hr NSS infusion Intravenous, at 100 mL/hr, CONTINUOUS, Starting on Wed08/10/24 at 1545, Until Wed08/11/24 at 0344 Rate Verify 08/11/2024 4:00 AM EDT 100 mL/hr Rate Verify 08/11/2024 3:00 AM EDT 100 mL/hr Rate Verify 08/11/2024 2:17 AM EDT 100 mL/hr NSS infusion Intravenous, at 100 mL/hr, CONTINUOUS, Starting on Wed08/11/24 at 0500, Until Wed08/11/24 at 1659 New Bag 08/11/2024 12:07 PM EDT 970 mL 100 mL/hr Restarted 08/11/2024 11:52 AM EDT 100 mL/hr KVO 08/11/2024 11:29 AM EDT 5 mL/hr omeprazole (PriLOSEC) cap 20 mg 20 mg, Oral, Daily(AM), First dose on Wed08/11/24 at 0900, Until Discontinued, This med should NOT be Crushed or Chewed Given 08/22/2024 9:13 AM EDT 20 mg Given 08/21/2024 8:12 AM EDT 20 mg Given 08/20/2024 8:26 AM EDT 20 mg Oral Hygiene: Mouth Swab with dentifrice Oral, Q4H LIMITED (00;04;12;16), First dose on Wed08/10/24 at 1600, Until Discontinued, To be used with 1.5% hydrogen peroxide solution or 0.05% cetylpyridium chloride oral rinse Given 08/15/2024 4:00 AM EDT Given 08/14/2024 4:00 PM EDT Given 08/14/2024 12:00 PM EDT oxyCODONE (Oxy IR) tab 5 mg 5 mg, Oral, Q4H PRN Pain, Moderate, Starting on Wed08/10/24 at 1513, Until Wed08/17/24 at 0712 Given 08/16/2024 9 :15 AM EDT 5 mg Given 08/15/2024 2:13 PM EDT 5 mg Given 08/15/2024 4:55 AM EDT 5 mg oxyCODONE (Oxy IR) tab 5 mg 5 mg, Oral, Q4H PRN Pain, Severe, Pain, Breakthrough, Starting on Wed08/17/24 at 0712, Until Wed08/22/24 at 2240 Given 08/22/2024 3:00 AM EDT 5 mg Given 08/21/2024 7:32 PM EDT 5 mg Given 08/21/2024 11:31 AM EDT 5 mg oxyCODONE (Roxicodone) oral syrup 2.5 mg 2.5 mg, Oral, Q4H PRN Pain, Mild, Starting on Wed08/10/24 at 1513, Until Wed08/17/24 at 0712 Given 08/10/2024 8:33 PM EDT 2.5 mg oxyCODONE (Roxicodone) oral syrup 2.5 mg 2.5 mg, Oral, Q4H PRN Pain, Mild, Pain, Moderate, Starting on Wed08/17/24 at 0712, Until Wed08/22/24 at 2240 oxygen GAS Inhalation, OXYGEN, First dose on Wed08/16/24 at 1600, Until Discontinued, Device/Managed by: Low Flow Device, Goal SPO2 (%): 91-95, Starting Device: Nasal Cannula, Initial Flow Rate (LPM): 2, Lowest Support: Nasal Cannula: Flow 0-6 LPM. Titrate up/down by 1 LPM., Titration Interval: Q2 minutes and as needed., Notify Provider: For sudden DECREASE in resting SPO2 to less than 85% and when escalating delivery device., Wean patient off Oxygen when the oxygen saturation is greater than or equal to 93% Oxygen On 08/22/2024 8:00 AM EDT Oxygen On 08/21/2024 8:00 AM EDT Oxygen On 08/20/2024 8:00 AM EDT Polyethylene Glycol 3350 (Miralax) oral powder 34 g 34 g (2 Packet), Oral, Daily(AM), First dose on Wed08/15/24 at 0915, Until Discontinued, Mix in 8 oz of water, juice, soda, coffee, or tea. Given 08/17/2024 9:44 AM EDT 34 g Given 08/16/2024 8:56 AM EDT 34 g Given 08/15/2024 9:39 AM EDT 34 g Povidone-Iodine nasal swab 4 Swab 4 Swab, Nasal, PREOP, First dose on Wed08/10/24 at 0645, Last dose on Wed08/10/24 at 0645, For 1 dose, Tilt the bottle slightly, dip one swab into solution and stir vigorously for 10 seconds. Withdraw the swab slowly to avoid wiping solution off during removal. Insert swab comfortably into one nostril and rotate for 15 seconds, covering all surfaces. Then focus on the inside tip of nostril and rotate for an additional 15 seconds. Using a new swab, Repeat above steps in the other nostril (Swab 2). Repeat the application in both nostrils using a fresh swab each times (Swab 3 and 4)., Pre-Op Given 08/10/2024 6:37 AM EDT 4 Swabs predniSONE (Deltasone) tab 7.5 mg 7.5 mg, Oral, Daily(AM), First dose on Wed08/11/24 at 0900, Until Discontinued Given 08/22/2024 9:14 AM EDT 7.5 mg Given 08/21/2024 8:12 AM EDT 7.5 mg Given 08/20/2024 8:25 AM EDT 7.5 mg senna (Senokot) 2 Tablet 2 Tablet, Oral, BID (.AM/PM), First dose on Wed08/11/24 at 2100, Until Discontinued, Hold for loose BMs. Given 08/21/2024 9:36 PM EDT 2 Tablets Given 08/20/2024 9:14 PM EDT 2 Tablets Given 08/19/2024 9:13 PM EDT 2 Tablets soap solution enema 1 Enema 1 Enema, Rectal, ONCE, On Wed08/16/24 at 2000, For 1 dose Given 08/16/2024 7:33 PM EDT 1 Enema sodium bicarbonate tab 650 mg 650 mg, Oral, BID (.AM/PM), First dose on Wed08/10/24 at 2100, Until Discontinued Given 08/22/2024 9:13 AM EDT 650 mg Given 08/21/2024 9:36 PM EDT 650 mg Given 08/21/2024 8:13 AM EDT 650 mg sodium chloride 0.9 % flush peripheral shantelle 3 mL 3 mL, IV Push, Q8H, First dose on Wed08/10/24 at 1545, Until Discontinued, Do not flush if lock, PICC, or central line not in place; IV infusing or unable to flush. Given 08/22/2024 2:00 PM EDT 3 mL Given 08/22/2024 5:39 AM EDT 3 mL Given 08/21/2024 9:35 PM EDT 3 mL sodium PHOSphate 15 mmol in NSS 250 mL (NaPhos) ivpb 15 mmol, Peripheral IV, ONCE, 1 dose, On 08/14/24 at 0615 New Bag 08/14/2024 6:45 AM EDT 15 mmol 10 4 mL/hr umeclidinium-vilanterol (ANORO ellipta) 62.5-25 MCG/INH inhaler 1 Puff 1 Puff, Inhalation, Daily(AM), First dose on Wed08/11/24 at 0900, Until Discontinued, Each inhalation uses 1 strip of each drug Given 08/22/2024 8:58 AM EDT 1 Puff Given 08/21/2024 8:11 AM EDT 1 Puff Given 08/20/2024 8:25 AM EDT 1 Puff documented in this encounter Active and Recently Administered Medications Times are shown in EDT. Scheduled Medication Order 08/20/2024 08/21/2024 08/22/2024 Acetaminophen (Tylenol) tab 975 mg 975 mg, Oral, Q8H, First dose on Wed08/14/24 at 1400, Until Discontinued, Maximum of 4 grams (4000 mg) per day. 0630 (Given - Provider: Christina Bhatia RN)133 (Given - Provider: Rajani Gonzalez LPN)2113 (Given - Provider: Christina Bhatia RN) 0531 (Given - Provider: Christina Bhatia RN)145 (Given - Provider: Trinidad Irene, CESAR)213 (Given - Provider: Christina Bhatia RN) 0538 (Given - Provider: Christina Bhatia RN)1348 (Given - Provider: Alice Tejeda RN) Albuterol Sulfate (Proventil) (2.5 MG/3ML) 0.083% inhalation solution 2.5 mg 2.5 mg, Nebulizer, BID (.AM/PM), First dose on Wed08/10/24 at 2100, Until Discontinued 08 (Given - Provider: Abilio Maloney RRT)2008 (Given - Provider: Teressa Dean, AMARIS) 903 (Given - Provider: Yumiko Varela, AMARIS)2111 (Given - Provider: Zacarias Tipton RRT-QUALITY CONTROL SUPERVISOR) 08 (Given - Provider: Terri Vallecillo, AQUACULTURE DIRECTOR) Allopurinol (Zyloprim) tab 200 mg 200 mg, Oral, Daily(AM), First dose on Wed08/11/24 at 0900, Until Discontinued 08 (Given - Provider: Rajani Gonzalez LPN) 811 (Given - Provider: Trinidad Irene RN) 912 (Given - Provider: Trinidad Irene RN) Apixaban (Eliquis) tab 5 mg 5 mg, Oral, BID (.AM/PM), First dose on Wed08/21/24 at 0915, Until Discontinued 1121 (Given - Provider: Trinidad Irene RN)2135 (Given - Provider: Christina Bhatia RN) 912 (Given - Provider: Trinidad Irene RN) aquaphilic (Aquaphor) ointment Topical, TID(AM/NOON/HS), First dose on Wed08/17/24 at 0745, Until Discontinued, Apply to skin graft and neck incision 0630 (Given - Provider: Christina Bhatia RN)133 (Given - Provider: Rajani Gonzalez LPN)2114 (Given - Provider: Christina Bhatia RN) 0532 (Given - Provider: Christina Bhatia RN)1121 (Given - Provider: Trinidad Irene RN)2135 (Given - Provider: Christina Bhatia RN) 05 (Given - Provider: Christina Bhatia RN)131 (Given - Provider: Trinidad Irene RN) atorvaSTATin (Lipitor) tab 20 mg 20 mg, Oral, HS, First dose on Wed08/10/24 at 2200, Until Discontinued 2113 (Given - Provider: Christina Bhatia RN) 2135 (Given - Provider: Christina Bhatia RN) Calcitriol (Rocaltrol) cap 0.25 mcg 0.25 mcg, Oral, Daily(AM), First dose on Wed08/11/24 at 0900, Until Discontinued 825 (Given - Provider: Rajani Gonzalez LPN) 812 (Given - Provider: Trinidad Irene RN) 912 (Given - Provider: Trinidad Irene RN) CYANOCOBALAMIN (vitamin B-12) tab 1,000 mcg 1,000 mcg, Oral, Daily(AM), First dose on Wed08/17/24 at 0900, Until Discontinued 825 (Given - Provider: Rajani Gonzalez LPN) 811 (Given - Provider: Trinidad Irene RN) 912 (Given - Provider: Trinidad Irene RN) Docusate Sodium (Colace) cap 100 mg 100 mg, Oral, BID (.AM/PM), First dose on Wed08/11/24 at 2100, Until Discontinued, For oral administration ONLY, if route of administration is other than oral and alternative product must be ordered. 899 (Not Given - Provider: Rajani Gonzalez LPN - Reason: Refused-Notify Provider - Comment: Vannessa Cameron; resident made aware of refusal.)2113 (Given - Provider: Christina Bhatia RN) 899 (Not Given - Provider: Trinidad Irene RN - Reason: Parameter(s) Not Met)2135 (Given - Provider: Christina Bhatia RN) 899 (Not Given - Provider: Trinidad Irene RN - Reason: Parameter(s) Not Met - Comment: patient having loose stool) folic acid tab 1 mg 1 mg, Oral, Daily(AM), First dose on Wed08/17/24 at 0900, Until Discontinued 825 (Given - Provider: Rajani Gonzalez LPN) 812 (Given - Provider: Trinidad Irene RN) 912 (Given - Provider: Trinidad Irene RN) hEParin inj 5,000 Units (CANCELED) 5,000 Units, Subcutaneous, Q8H, First dose on Wed08/14/24 at 2200, Until Discontinued 629 (Given - Provider: Christina Bhatia RN)1334 (Given - Provider: Rajani Gonzalez LPN)2114 (Given - Provider: Christina Bhatia RN) 05 (Given - Provider: Christina Bhatia RN) levothyroxine (Levoxyl) tab 50 mcg 50 mcg, Oral, [id number], First dose on Wed08/11/24 at 0630, Until Discontinued 629 (Given - Provider: Christina Bhatia RN) 0532 (Given - Provider: Christina Bhatia RN) 0538 (Given - Provider: Christina Bhatia RN) Lidocaine (Aspercreme) 4 % patch 1 Patch 1 Patch, Transdermal, Daily(AM), First dose (after last modification) on Wed08/15/24 at 1830, Until Discontinued, Apply patch for 12 hours then remove for 12 hours! Remove any Lidocaine patches the patient may currently be wearing prior to applying the new patch 0524 (Patch Removed - Provider: Christina Bhatia RN)1804 (Patch Applied - Provider: Rajani Gonzalez LPN) 0604 (Patch Removed - Provider: Christina Bhatia RN)1800 (Not Given - Provider: Trinidad Irene RN - Reason: Refused-Notify Provider) 1800 (Due) metoprolol succinate XL (toPROL XL) tab 25 mg 25 mg, Oral, Daily(AM), First dose (after last reorder) on Wed08/17/24 at 0900, Until Discontinued, Hold for HR less than 60 or SBP below 100 and notify service if dose is held This med should NOT be Crushed or Chewed. 0826 (Given - Provider: Rajani Gonzalez LPN) 0813 (Given - Provider: Trinidad Irene RN) 0914 (Given - Provider: Trinidad Irene, CESAR) omeprazole (PriLOSEC) cap 20 mg 20 mg, Oral, Daily(AM), First dose on Wed08/11/24 at 0900, Until Discontinued, This med should NOT be Crushed or Chewed 08 (Given - Provider: Rajani Gonzalez LPN) 0812 (Given - Provider: Trinidad Irene, CESAR) 0913 (Given - Provider: Trinidad Irene, CESAR) oxygen GAS Inhalation, OXYGEN, First dose on Wed08/16/24 at 1600, Until Discontinued, Device/Managed by: Low Flow Device, Goal SPO2 (%): 91-95, Starting Device: Nasal Cannula, Initial Flow Rate (LPM): 2, Lowest Support: Nasal Cannula: Flow 0-6 LPM. Titrate up/down by 1 LPM., Titration Interval: Q2 minutes and as needed., Notify Provider: For sudden DECREASE in resting SPO2 to less than 85% and when escalating delivery device., Wean patient off Oxygen when the oxygen saturation is greater than or equal to 93% 0000 (Oxygen Off - Provider: Christina Bhatia RN)0800 (Oxygen On - Provider: Rajani Gonzalez LPN)1600 (Oxygen Off - Provider: Rajani Gonzalez LPN) 0000 (Oxygen Off - Provider: Christina Bhatia RN)0800 (Oxygen On - Provider: Trinidad Irene RN)1600 (Oxygen Off - Provider: Trinidad Irene RN) 0000 (Oxygen Off - Provider: Christina Bhatia RN)0800 (Oxygen On - Provider: Trinidad Irene RN)1600 (Oxygen Off - Provider: Trinidad Irene RN) Polyethylene Glycol 3350 (Miralax) oral powder 34 g 34 g (2 Packet), Oral, Daily(AM), First dose on Wed08/15/24 at 0915, Until Discontinued, Mix in 8 oz of water, juice, soda, coffee, or tea. 0900 (Not Given - Provider: Rajani Gonzalez LPN - Reason: Refused-Notify Provider - Comment: Vannessa Cameron; resident made aware of refusal.) 0900 (Not Given - Provider: Trinidad Irene RN - Reason: Parameter(s) Not Met) 0900 (Not Given - Provider: Trinidad Irene RN - Reason: Parameter(s) Not Met - Comment: patient having loose stool) predniSONE (Deltasone) tab 7.5 mg 7.5 mg, Oral, Daily(AM), First dose on Wed08/11/24 at 0900, Until Discontinued 0825 (Given - Provider: Rajani Gonzalez LPN) 0812 (Given - Provider: Trinidad Irene RN) 0914 (Given - Provider: Trinidad Irene RN) senna (Senokot) 2 Tablet 2 Tablet, Oral, BID (.AM/PM), First dose on Wed08/11/24 at 2100, Until Discontinued, Hold for loose BMs. 09 (Not Given - Provider: Rajani Gonzalez LPN - Reason: Refused-Notify Provider - Comment: Vannessa Cameron; resident made aware of refusal.)2113 (Given - Provider: Christina Bhatia RN) 899 (Not Given - Provider: Trinidad Irene RN - Reason: Parameter(s) Not Met)2135 (Given - Provider: Christina Bhatia RN) 09 (Not Given - Provider: Trinidad Irene RN - Reason: Parameter(s) Not Met - Comment: patient having loose stool) sodium bicarbonate tab 650 mg 650 mg, Oral, BID (.AM/PM), First dose on Wed08/10/24 at 2100, Until Discontinued 825 (Given - Provider: Rajani Gonzalez LPN)2113 (Given - Provider: Christina Bhatia RN) 812 (Given - Provider: Trinidad Irene RN)2135 (Given - Provider: Christina Bhatia RN) 912 (Given - Provider: Trinidad Irene RN) sodium chloride 0.9 % flush peripheral shantelle 3 mL 3 mL, IV Push, Q8H, First dose on Wed08/10/24 at 1545, Until Discontinued, Do not flush if lock, PICC, or central line not in place; IV infusing or unable to flush. 0631 (Given - Provider: Christina Bhatia RN)1400 (Given - Provider: Rajani Gonzalez LPN)2114 (Given - Provider: Christina Bhatia RN) 0532 (Given - Provider: Christina Bhatia RN)1400 (Given - Provider: Trinidad Irene RN)2134 (Given - Provider: Christina Bhatia RN) 0539 (Given - Provider: Christina Bhatia RN)1400 (Given - Provider: Trinidad Irene RN) umeclidinium-vilanterol (ANORO ellipta) 62.5-25 MCG/INH inhaler 1 Puff 1 Puff, Inhalation, Daily(AM), First dose on Wed08/11/24 at 0900, Until Discontinued, Each inhalation uses 1 strip of each drug 0825 (Given - Provider: Rajani Gonzalez LPN) 0811 (Given - Provider: Tirnidad Irene, CESAR) 0858 (Given - Provider: Terri Vallecillo, FARSHAD) PRN Medication Order 08/20/2024 08/21/2024 08/22/2024 Bisacodyl (Dulcolax) supp 10 mg 10 mg, Rectal, DAILY PRN Constipation, Starting on Wed08/16/24 at 1506, Until Wed08/22/24 at 2240 labetalol (Trandate) inj 10 mg 10 mg, Intravenous, Q6H PRN Hypertension, sys>180 hld for rate <60, Starting on Wed08/10/24 at 1801, Until Wed08/22/24 at 2240 oxyCODONE (Oxy IR) tab 5 mg 5 mg, Oral, Q4H PRN Pain, Severe, Pain, Breakthrough, Starting on Wed08/17/24 at 0712, Until Wed08/22/24 at 2240 2248 (Given - Provider: Christina Bhatia RN) 1131 (Given - Provider: Trinidad Irene, CESAR)1932 (Given - Provider: Christina Bhatia RN) 0300 (Given - Provider: Christina Bhatia RN) oxyCODONE (Roxicodone) oral syrup 2.5 mg 2.5 mg, Oral, Q4H PRN Pain, Mild, Pain, Moderate, Starting on Veronica 08/17/24 at 0712, Until Wed08/22/24 at 2240 documented in this encounter Advance Directives Documents on File Type Date Recorded Patient Copy Technician Expl anation Advance Directives and Living [...] verbally by patient or by statute hierarchy) [facility] Adult Child Emergency Contact Care Teams Medical Record Transcriber Relationship Specialty Start Date End Date Fuentes Ashton MD [address] [id number] PCP - General Family Medicine 01/30/22 documented as of this encounter
--- OUTSIDE RECORDS SUMMARY | 2024-09-30 18:14 | External Medical Summary ---
Author Name Unknown Address Unknown Organization [id number]:LABORATORY [facility] [place] - [address] [facility] [address] Laboratory Report Ordering Provider Test Date Status ALESSANDRA BOO 08/20/2024 08:47:00 Final Observation Date Value Abnormality Reference (Units ) Status WBC, Total 08/20/2024 08:47:00 10.20 4.00-10.80 (K/uL) Final RBC 08/20/2024 08:47:00 2.11 4.50-5.25 (M/uL) Final Hemoglobin 08/20/2024 08:47:00 7.1 Below low normal 14.0-16.8 (g/dL) Final HCT 08/20/2024 08:47:00 23.2 Below low normal 40.0-48.4 (%) Final MCV 08/20/2024 08:47:00 110.0 82.0-99.5 (fL) Final MCH 08/20/2024 08:47:00 33.6 27.0-34.0 (pg) Final MCHC 08/20/2024 08:47:00 30.6 32.0-36.0 (g/dL) Final RDW 08/20/2024 08:47:00 18.4 11.5-15.5 (%) Final Platelets 08/20/2024 08:47:00 190 140-400 (K/uL) Final MPV 08/20/2024 08:47:00 11.9 6.6-11.1 (fL) Final Nucleated erythrocytes/100 leukocytes [Ratio] in Blood by Automated count 08/20/2024 08:47:00 0 <=0 (/100 WBCs) Final Performing Location [facility] - [address] [place] [address]
--- OUTSIDE RECORDS SUMMARY | 2024-09-30 18:14 | External Medical Summary ---
Author Name Unknown Address Unknown Organization [id number]:LAB[facility]ATORY [facility] - [address] [place] [address] Laboratory Report Ordering Provider Test Date Status JUAN MENDIETA 08/21/2024 03:35:00 Final Observation Date Value Abnormality Reference (Units ) Status Magnesium 08/21/2024 03:35:00 2.0 1.5-2.6 (m g/dL) Final Performing Location [facility] - [address] [place] [address]
--- OUTSIDE RECORDS SUMMARY | 2024-09-30 18:14 | External Medical Summary ---
Author Name Unknown Address Unknown Organization [id number]:LABORATORY [facility] [place] - [address] [facility] [address] Laboratory Report Ordering Provider Test Date Status ALESSANDRA BOO 08/21/2024 03:35:00 Final Observation Date Value Abnormality Reference (Units ) Status WBC, Total 08/21/2024 03:35:00 9.84 4.00-10.80 (K/uL) Final RBC 08/21/2024 03:35:00 2.07 4.50-5.25 (M/uL) Final Hemoglobin 08/21/2024 03:35:00 6.9 Below low normal 14.0-16.8 (g/dL) Final HCT 08/21/2024 03:35:00 23.4 Below low normal 40.0-48.4 (%) Final MCV 08/21/2024 03:35:00 113.0 82.0-99.5 (fL) Final MCH 08/21/2024 03:35:00 33.3 27.0-34.0 (pg) Final MCHC 08/21/2024 03:35:00 29.5 32.0-36.0 (g/dL) Final RDW 08/21/2024 03:35:00 19.4 11.5-15.5 (%) Final Platelets 08/21/2024 03:35:00 199 140-400 (K/uL) Final MPV 08/21/2024 03:35:00 11.3 6.6-11.1 (fL) Final Nucleated erythrocytes/100 leukocytes [Ratio] in Blood by Automated count 08/21/2024 03:35:00 0 <=0 (/100 WBCs) Final Performing Location [facility] - [address] [place] [address]
--- OUTSIDE RECORDS SUMMARY | 2024-09-30 18:14 | External Medical Summary ---
Author Name Unknown Address Unknown Organization [id number]:[facility] [place] [address] [place] [address] Laboratory Report Ordering Provider Test Date Status ALESSANDRA BOO 08/21/2024 03:35:00 Final Observation Date Value Abnormality Reference (Units ) Status BUN 08/21/2024 03:35:00 39 Above high normal 6-20 (mg/dL) Final Creatinine 08/21/2024 03:35:00 3.3 Above high normal 0.6-1.2 (mg/dL) Final Glomerular filtration rate/1.73 sq M.predicted [Volume Rate/Area] in Serum, Plasma or Blood by Creatinine-based formula (CKD-EPI) 08/21/2024 03:35:00 18 Below low normal >=60 (mL/min) Final eGFR is calculated based on the CKD-EPI 2020 equation. Sodium 08/21/2024 03:35:00 137 135-146 (m mol/L) Final Potassium 08/21/2024 03:35:00 4.9 3.5-5.1 (m mol/L) Final Cl 08/21/2024 03:35:00 107 98-107 (mm ol/L) Final CO2 08/21/2024 03:35:00 19 Below low normal 22- 32 (mmol/L) Final Anion gap 08/21/2024 03:35:00 11 7-15 (mmol /L) Final Glucose 08/21/2024 03:35:00 78 70-120 (mg /dL) Final Calcium 08/21/2024 03:35:00 8.5 8.4-10.2 ( mg/dL) Final Performing Location [facility] [place] [address] [place] [address]
--- OUTSIDE RECORDS SUMMARY | 2024-09-30 18:14 | External Medical Summary ---
Author Name Unknown Address Unknown Organization [id number]:LABORATORY [facility] [place] - [address] [place] [address] Laboratory Report Ordering Provider Test Date Status ALESSANDRA BOO 08/19/2024 21:18:00 Final Observation Date Value Abnormality Reference (Units ) Status WBC, Total 08/19/2024 21:18:00 10.08 4.00-10.80 (K/uL) Final RBC 08/19/2024 21:18:00 1.96 4.50-5.25 (M/uL) Final Hemoglobin 08/19/2024 21:18:00 6.4 Below low normal 14.0-16.8 (g/dL) Final HCT 08/19/2024 21:18:00 20.7 Below low normal 40.0-48.4 (%) Final MCV 08/19/2024 21:18:00 105.6 82.0-99.5 (fL) Final MCH 08/19/2024 21:18:00 32.7 27.0-34.0 (pg) Final MCHC 08/19/2024 21:18:00 30.9 32.0-36.0 (g/dL) Final RDW 08/19/2024 21:18:00 17.3 11.5-15.5 (%) Final Platelets 08/19/2024 21:18:00 179 140-400 (K/uL) Final MPV 08/19/2024 21:18:00 11.4 6.6-11.1 (fL) Final Nucleated erythrocytes/100 leukocytes [Ratio] in Blood by Automated count 08/19/2024 21:18:00 0 <=0 (/100 WBCs) Final Performing Location [facility] - [address] [place] [address]
--- OUTSIDE RECORDS SUMMARY | 2024-09-30 18:14 | External Medical Summary ---
Author Name Unknown Address Unknown Organization [id number]:[facility]ATORY [facility] - [address] [place] [address] Laboratory Report Ordering Provider Test Date Status JUAN MENDIETA 08/22/2024 03:42:00 Final Observation Date Value Abnormality Reference (Units ) Status Magnesium 08/22/2024 03:42:00 1.9 1.5-2.6 (m g/dL) Final Performing Location [facility] - [address] [place] [address]
--- OUTSIDE RECORDS SUMMARY | 2024-09-30 18:15 | External Medical Summary ---
Author Name Unknown Address Unknown Organization [id number]:[facility]ORY [facility] [place] - [address] [place] [address] Laboratory Report Ordering Provider Test Date Status JAMES BARFIELD 08/14/2024 20:30:00 Final Observation Date Value Abnormality Reference (Units ) Status WBC, Total 08/14/2024 20:30:00 12.08 Above high normal 4.00-10.80 (K/uL) Final RBC 08/14/2024 20:30:00 2.12 4.50-5.25 (M/uL) Final Hemoglobin 08/14/2024 20:30:00 6.8 Below low normal 14.0-16.8 (g/dL) Final HCT 08/14/2024 20:30:00 21.5 Below low normal 40.0-48.4 (%) Final MCV 08/14/2024 20:30:00 101.4 82.0-99.5 (fL) Final MCH 08/14/2024 20:30:00 32.1 27.0-34.0 (pg) Final MCHC 08/14/2024 20:30:00 31.6 32.0-36.0 (g/dL) Final RDW 08/14/2024 20:30:00 16.6 11.5-15.5 (%) Final Platelets 08/14/2024 20:30:00 74 Below low normal 140-400 (K/uL) Final MPV 08/14/2024 20:30:00 12.4 6.6-11.1 (fL) Final Nucleated erythrocytes/100 leukocytes [Ratio] in Blood by Automated count 08/14/2024 20:30:00 0 <=0 (/100 WBCs) Final Performing Location LAB[facility]ATORY [facility] - [address] [place] [address]
--- OUTSIDE RECORDS SUMMARY | 2024-09-30 18:15 | External Medical Summary ---
Author Name Unknown Address Unknown Organization K01:LAB[facility]ATORY [facility] - [address] [place] [address] Laboratory Report Ordering Provider Test Date Status JUAN MENDIETA 08/14/2024 05:00:00 Final Observation Date Value Abnormality Reference (Units ) Status Phosphate 08/14/2024 05:00:00 2.1 Below low normal 2.5 -4.8 (mg/dL) Final Performing Location [facility] - [address] [place] [address]
--- OUTSIDE RECORDS SUMMARY | 2024-09-30 18:15 | External Medical Summary ---
Author Name Unknown Address Unknown Organization K01:LABORATORY [facility] [place] - [address] [facility] [address] Laboratory Report Ordering Provider Test Date Status NASIM GRIER 08/13/2024 14:08:00 Patricia l Observation Date Value Abnormality Reference (Units ) Status WBC, Total 08/13/2024 14:08:00 11.69 Above high normal 4.00-10.80 (K/uL) Final RBC 08/13/2024 14:08:00 2.81 4.50-5.25 (M/uL) Final Hemoglobin 08/13/2024 14:08:00 8.9 Below low normal 14.0-16.8 (g/dL) Final HCT 08/13/2024 14:08:00 28.3 Below low normal 40.0-48.4 (%) Final MCV 08/13/2024 14:08:00 100.7 82.0-99.5 (fL) Final MCH 08/13/2024 14:08:00 31.7 27.0-34.0 (pg) Final MCHC 08/13/2024 14:08:00 31.4 32.0-36.0 (g/dL) Final RDW 08/13/2024 14:08:00 15.8 11.5-15.5 (%) Final Platelets 08/13/2024 14:08:00 70 Below low normal 140-400 (K/uL) Final MPV 08/13/2024 14:08:00 13.5 6.6-11.1 (fL) Final Nucleated erythrocytes/100 leukocytes [Ratio] in Blood by Automated count 08/13/2024 14:08:00 0 <=0 (/100 WBCs) Final Performing Location LABORATORY C - [address] [place] [address]
--- OUTSIDE RECORDS SUMMARY | 2024-09-30 18:15 | External Medical Summary ---
Author Name Unknown Address Unknown Organization K01:LABORATORY [facility] [place] - [address] [place] [address] Laboratory Report Ordering Provider Test Date Status JAMES BARFIELD 08/15/2024 06:41:00 Final Observation Date Value Abnormality Reference (Units ) Status BUN 08/15/2024 06:41:00 46 Above high normal 6-20 (mg/dL) Final Creatinine 08/15/2024 06:41:00 3.1 Above high normal 0.6-1.2 (mg/dL) Final Glomerular filtration rate/1.73 sq M.predicted [Volume Rate/Area] in Serum, Plasma or Blood by Creatinine-based formula (CKD-EPI) 08/15/2024 06:41:00 20 Below low normal >=60 (mL/min) Final eGFR is calculated based on the CKD-EPI 2020 equation. Sodium 08/15/2024 06:41:00 135 135-146 (m mol/L) Final Potassium 08/15/2024 06:41:00 5.2 Above high normal 3. 5-5.1 (mmol/L) Final Cl 08/15/2024 06:41:00 103 98-107 (mm ol/L) Final CO2 08/15/2024 06:41:00 20 Below low normal 22- 32 (mmol/L) Final Anion gap 08/15/2024 06:41:00 12 7-15 (mmol /L) Final Glucose 08/15/2024 06:41:00 104 70-120 (mg /dL) Final Calcium 08/15/2024 06:41:00 7.4 Below low normal 8.4 -10.2 (mg/dL) Final Performing Location LABORATORY [facility] [place] - [address] [place] [address]
--- OUTSIDE RECORDS SUMMARY | 2024-09-30 18:15 | External Medical Summary ---
Author Name Unknown Address Unknown Organization : Laboratory Report Ordering Provider Test Date Status ABAD AMATO 08/13/2024 11:18:14 Final Observation Date Value Abnormality Reference (Units ) Status Blood draw [PhenX] 08/13/2024 11:18:14 Venous Final pH, POC (i-STAT) 08/13/2024 11:18:14 7.245 Below low normal 7.350-7.450 Final PCO2 POC (i-STAT) 08/13/2024 11:18:14 48.2 Above high normal 35.0-45.0 (mm Hg) Final PO2 POC (i-STAT) 08/13/2024 11:18:14 42 Below lower panic limits 75-100 (mm Hg) Final Base excess standard in Arterial blood by calculation 08/13/2024 11:18:14 -6 Below low normal -2-2 (mmol/L) Final Bicarbonate, Venous, POC (i-STAT) 08/13/2024 11:18:14 20.9 Below low normal 23.0-31.0 (mmol/L) Final O2 Sat, calculated POC (i-STAT) 08/13/2024 11:18:14 68.0 Below low normal 94.0-98.0 (%) Final Glucose, whole blood 08/13/2024 11:18:14 105 70-120 (mg/dL) Final Potassium, Whole Blood 08/13/2024 11:18:14 4.9 3.5-5.1 (mmol/L) Final Sodium, Whole Blood 08/13/2024 11:18:14 139 135-146 (mmol/L) Final Calcium, Ionized, Whole Blood 08/13/2024 11:18:14 1.10 Below low normal 1.13-1.32 (mmol/L) Final Hemoglobin POC (i-STAT) 08/13/2024 11:18:14 6.8 Below low normal 14.0-16.8 (g/dL) Final HCT 08/13/2024 11:18:14 20 Below lower panic limits 40-48 (%) Final Performing Location
--- OUTSIDE RECORDS SUMMARY | 2024-09-30 18:15 | External Medical Summary ---
Author Name Unknown Address Unknown Organization K01:LABORATORY [facility] [place] - [address] [place] [address] Laboratory Report Ordering Provider Test Date Status JUAN MENDIETA 08/14/2024 00:32:00 Final Observation Date Value Abnormality Reference (Units ) Status WBC, Total 08/14/2024 00:32:00 12.92 Above high normal 4.00-10.80 (K/uL) Final RBC 08/14/2024 00:32:00 2.66 4.50-5.25 (M/uL) Final Hemoglobin 08/14/2024 00:32:00 8.5 Below low normal 14.0-16.8 (g/dL) Final HCT 08/14/2024 00:32:00 24.4 Below low normal 40.0-48.4 (%) Final MCV 08/14/2024 00:32:00 91.7 82.0-99.5 (fL) Final MCH 08/14/2024 00:32:00 32.0 27.0-34.0 (pg) Final MCHC 08/14/2024 00:32:00 34.8 32.0-36.0 (g/dL) Final RDW 08/14/2024 00:32:00 16.2 11.5-15.5 (%) Final Platelets 08/14/2024 00:32:00 74 Below low normal 140-400 (K/uL) Final MPV 08/14/2024 00:32:00 13.4 6.6-11.1 (fL) Final Nucleated erythrocytes/100 leukocytes [Ratio] in Blood by Automated count 08/14/2024 00:32:00 0 <=0 (/100 WBCs) Final Performing Location [facility]ORY [facility] - [address] [place] [address]
--- OUTSIDE RECORDS SUMMARY | 2024-09-30 18:15 | External Medical Summary ---
Author Name Unknown Address Unknown Organization K01:LABORATORY [facility] [place] - [address] [facility] [address] Laboratory Report Ordering Provider Test Date Status SHAKA SELLERS 08/13/2024 10:50:00 Final If R time > 20 minutes and n o clot formed suggesting hypocoagulable state or interfering substance (anticoagulation). Consider resubmitting a new sample and/or checking PT/INR, aPTT, fibrinogen, and platelet count. Observation Date Value Abnormality Reference (Units) Status Clot formation [Time] in Blood by Thromboelastography 08/13/2024 10:50:00 13.3 Above high normal 2.5-8.3 (minutes) Final Clot strength in Blood by Thromboelastography 08/13/2024 10:50:00 3.5 0.5-3.7 (minutes) Final Clot angle in Blood by Thromboelastography 08/13/2024 10:50:00 47.6 46.8-78.4 (degrees) Final Maximum clot firmness [Length] in Blood by Thromboelastography 08/13/2024 10:50:00 65.9 50.6-72.5 (mm) Final This is an appended report. These results have been appended to a previously preliminary verified report. Coagulation index in Blood b y Thromboelastography 08/13/2024 10:50:00 -6.1 Below low normal -3.0-3.0 Final This is an appended report. These results have been appended to a previously preliminary verified report. Clot Lysis [Length fraction] in Blood by Thromboelastography --30 minutes post maximum clot amplitude 08/13/2024 10:50:00 0.0 0.0-7.5 (%) Final This is an appended report. These results have been appended to a previously preliminary verified report. Performing Location LABORATORY [facility] [place] - [address] [facility] [address]
--- OUTSIDE RECORDS SUMMARY | 2024-09-30 18:15 | External Medical Summary ---
Author Name Unknown Address Unknown Organization K01:[place] [facility] [place] [address] [place] [address] Laboratory Report Ordering Provider Test Date Status JAMES BARFIELD 08/17/2024 23:30:00 Final Observation Date Value Abnormality Reference (Units ) Status WBC, Total 08/17/2024 23:30:00 5.43 4.00-10.80 (K/uL) Final RBC 08/17/2024 23:30:00 1.83 4.50-5.25 (M/uL) Final Hemoglobin 08/17/2024 23:30:00 5.9 Below lower panic limits 14.0-16.8 (g/dL) Final HCT 08/17/2024 23:30:00 18.8 Below low normal 40.0-48.4 (%) Final MCV 08/17/2024 23:30:00 102.7 82.0-99.5 (fL) Final MCH 08/17/2024 23:30:00 32.2 27.0-34.0 (pg) Final MCHC 08/17/2024 23:30:00 31.4 32.0-36.0 (g/dL) Final RDW 08/17/2024 23:30:00 15.9 11.5-15.5 (%) Final Platelets 08/17/2024 23:30:00 127 Below low normal 140-400 (K/uL) Final MPV 08/17/2024 23:30:00 11.5 6.6-11.1 (fL) Final Nucleated erythrocytes/100 leukocytes [Ratio] in Blood by Automated count 08/17/2024 23:30:00 0 <=0 (/100 WBCs) Final Performing Location LAB[facility]ATORY [facility] - [address] [place] [address]
--- OUTSIDE RECORDS SUMMARY | 2024-09-30 18:15 | External Medical Summary ---
Author Name Unknown Address Unknown Organization K01:[place] [facility] [place] [address] [place] [address] Laboratory Report Ordering Provider Test Date Status NASIM GRIER 08/13/2024 09:46:00 Patricia l Observation Date Value Abnormality Reference (Units ) Status WBC, Total 08/13/2024 09:46:00 11.19 Above high normal 4.00-10.80 (K/uL) Final RBC 08/13/2024 09:46:00 2.16 4.50-5.25 (M/uL) Final Hemoglobin 08/13/2024 09:46:00 6.8 Below low normal 14.0-16.8 (g/dL) Final HCT 08/13/2024 09:46:00 22.7 Below low normal 40.0-48.4 (%) Final MCV 08/13/2024 09:46:00 105.1 82.0-99.5 (fL) Final MCH 08/13/2024 09:46:00 31.5 27.0-34.0 (pg) Final MCHC 08/13/2024 09:46:00 30.0 32.0-36.0 (g/dL) Final RDW 08/13/2024 09:46:00 17.7 11.5-15.5 (%) Final Platelets 08/13/2024 09:46:00 44 Below low normal 140-400 (K/uL) Final MPV 08/13/2024 09:46:00 14.1 6.6-11.1 (fL) Final Nucleated erythrocytes/100 leukocytes [Ratio] in Blood by Automated count 08/13/2024 09:46:00 0 <=0 (/100 WBCs) Final Performing Location LABORATORY C - [address] [place] [id number]
--- OUTSIDE RECORDS SUMMARY | 2024-09-30 18:15 | External Medical Summary ---
Author Name Unknown Address Unknown Organization K01:[place]ORY [facility] [place] [address] [address] [place] [address] Laboratory Report Ordering Provider Test Date Status JAMES BARFIELD 08/17/2024 04:59:00 Final Observation Date Value Abnormality Reference (Units ) Status BUN 08/17/2024 04:59:00 41 Above high normal 6-20 (mg/dL) Final Creatinine 08/17/2024 04:59:00 3.3 Above high normal 0.6-1.2 (mg/dL) Final Glomerular filtration rate/1.73 sq M.predicted [Volume Rate/Area] in Serum, Plasma or Blood by Creatinine-based formula (CKD-EPI) 08/17/2024 04:59:00 19 Below low normal >=60 (mL/min) Final eGFR is calculated based on the CKD-EPI 2020 equation. Sodium 08/17/2024 04:59:00 137 135-146 (m mol/L) Final Potassium 08/17/2024 04:59:00 4.8 3.5-5.1 (m mol/L) Final Cl 08/17/2024 04:59:00 105 98-107 (mm ol/L) Final CO2 08/17/2024 04:59:00 18 Below low normal 22- 32 (mmol/L) Final Anion gap 08/17/2024 04:59:00 14 7-15 (mmol /L) Final Glucose 08/17/2024 04:59:00 84 70-120 (mg /dL) Final Calcium 08/17/2024 04:59:00 8.1 Below low normal 8.4 -10.2 (mg/dL) Final Performing Location LABORATORY [facility] [place] [address] [place] [address]
--- OUTSIDE RECORDS SUMMARY | 2024-09-30 18:15 | External Medical Summary ---
Author Name Unknown Address Unknown Organization K01:LABORATORY [facility] - [address] [place] [address] Laboratory Report Ordering Provider Test Date Status JUAN MENDIETA 08/17/2024 04:59:00 Final Observation Date Value Abnormality Reference (Units ) Status Magnesium 08/17/2024 04:59:00 2.3 1.5-2.6 (m g/dL) Final Performing Location LAB[facility]ORY [facility] - [address] [place] [address]
--- OUTSIDE RECORDS SUMMARY | 2024-09-30 18:15 | External Medical Summary ---
Author Name Unknown Address Unknown Organization K01:LAB[place]ATORY [facility] [place] [address] [place] [address] Laboratory Report Ordering Provider Test Date Status JAMES BARFIELD 08/16/2024 08:19:00 Final Observation Date Value Abnormality Reference (Units ) Status WBC, Total 08/16/2024 08:19:00 8.46 4.00-10.80 (K/uL) Final RBC 08/16/2024 08:19:00 2.05 4.50-5.25 (M/uL) Final Hemoglobin 08/16/2024 08:19:00 6.5 Below low normal 14.0-16.8 (g/dL) Final HCT 08/16/2024 08:19:00 21.0 Below low normal 40.0-48.4 (%) Final MCV 08/16/2024 08:19:00 102.4 82.0-99.5 (fL) Final MCH 08/16/2024 08:19:00 31.7 27.0-34.0 (pg) Final MCHC 08/16/2024 08:19:00 31.0 32.0-36.0 (g/dL) Final RDW 08/16/2024 08:19:00 15.9 11.5-15.5 (%) Final Platelets 08/16/2024 08:19:00 107 Below low normal 140-400 (K/uL) Final MPV 08/16/2024 08:19:00 12.1 6.6-11.1 (fL) Final Nucleated erythrocytes/100 leukocytes [Ratio] in Blood by Automated count 08/16/2024 08:19:00 0 <=0 (/100 WBCs) Final Performing Location LAB[facility]ATORY [facility] - [address] [place] [address]
--- OUTSIDE RECORDS SUMMARY | 2024-09-30 18:15 | External Medical Summary ---
Author Name Unknown Address Unknown Organization K01:LABORATORY [facility] [place] [address] [place] [address] Laboratory Report Ordering Provider Test Date Status JAMES BARFIELD 08/14/2024 05:00:00 Final Observation Date Value Abnormality Reference (Units ) Status BUN 08/14/2024 05:00:00 52 Above high normal 6-20 (mg/dL) Final Creatinine 08/14/2024 05:00:00 3.1 Above high normal 0.6-1.2 (mg/dL) Final Glomerular filtration rate/1.73 sq M.predicted [Volume Rate/Area] in Serum, Plasma or Blood by Creatinine-based formula (CKD-EPI) 08/14/2024 05:00:00 20 Below low normal >=60 (mL/min) Final eGFR is calculated based on the CKD-EPI 2020 equation. Sodium 08/14/2024 05:00:00 137 135-146 (m mol/L) Final Potassium 08/14/2024 05:00:00 4.8 3.5-5.1 (m mol/L) Final Cl 08/14/2024 05:00:00 108 Above high normal 98 -107 (mmol/L) Final CO2 08/14/2024 05:00:00 18 Below low normal 22- 32 (mmol/L) Final Anion gap 08/14/2024 05:00:00 11 7-15 (mmol /L) Final Glucose 08/14/2024 05:00:00 91 70-120 (mg /dL) Final Calcium 08/14/2024 05:00:00 7.5 Below low normal 8.4 -10.2 (mg/dL) Final Performing Location LABORATORY [facility] [place] [address] [place] [address]
--- OUTSIDE RECORDS SUMMARY | 2024-09-30 18:15 | External Medical Summary ---
Author Name Unknown Address Unknown Organization K01:LABORATORY [facility] - [address] [place] [address] Laboratory Report Ordering Provider Test Date Status JUAN MENDIETA 08/16/2024 03:26:00 Final Observation Date Value Abnormality Reference (Units ) Status Magnesium 08/16/2024 03:26:00 2.2 1.5-2.6 (m g/dL) Final Performing Location LAB[facility]ORY [facility] - [address] [place] [address]
--- OUTSIDE RECORDS SUMMARY | 2024-09-30 18:15 | External Medical Summary ---
Author Name Unknown Address Unknown Organization K01:LABORATORY [facility] - [address] [place] [address] Laboratory Report Ordering Provider Test Date Status JUAN MENDIETA 08/15/2024 06:41:00 Final Observation Date Value Abnormality Reference (Units ) Status Phosphate 08/15/2024 06:41:00 3.0 2.5-4.8 (m g/dL) Final Performing Location LAB[facility] - [address] [place] [address]
--- OUTSIDE RECORDS SUMMARY | 2024-09-30 18:15 | External Medical Summary ---
Author Name Unknown Address Unknown Organization K01:LABORATORY [facility] - [address] [place] [address] Laboratory Report Ordering Provider Test Date Status JUAN MENDIETA 08/16/2024 03:26:00 Final Observation Date Value Abnormality Reference (Units ) Status Phosphate 08/16/2024 03:26:00 2.8 2.5-4.8 (m g/dL) Final Performing Location LAB[facility] - [address] [place] [address]
--- OUTSIDE RECORDS SUMMARY | 2024-09-30 18:15 | External Medical Summary ---
Author Name Unknown Address Unknown Organization K01:LABORATORY [facility] [place] [address] [place] [address] Laboratory Report Ordering Provider Test Date Status NASIM GRIER 08/13/2024 18:50:00 Patricia l Observation Date Value Abnormality Reference (Units ) Status WBC, Total 08/13/2024 18:50:00 9.59 4.00-10.80 (K/uL) Final RBC 08/13/2024 18:50:00 2.79 4.50-5.25 (M/uL) Final Hemoglobin 08/13/2024 18:50:00 8.9 Below low normal 14.0-16.8 (g/dL) Final HCT 08/13/2024 18:50:00 27.8 Below low normal 40.0-48.4 (%) Final MCV 08/13/2024 18:50:00 99.6 82.0-99.5 (fL) Final MCH 08/13/2024 18:50:00 31.9 27.0-34.0 (pg) Final MCHC 08/13/2024 18:50:00 32.0 32.0-36.0 (g/dL) Final RDW 08/13/2024 18:50:00 16.2 11.5-15.5 (%) Final Platelets 08/13/2024 18:50:00 80 Below low normal 140-400 (K/uL) Final MPV 08/13/2024 18:50:00 13.4 6.6-11.1 (fL) Final Nucleated erythrocytes/100 leukocytes [Ratio] in Blood by Automated count 08/13/2024 18:50:00 0 <=0 (/100 WBCs) Final Performing Location LAB[facility] - [address] [place] [address]
--- OUTSIDE RECORDS SUMMARY | 2024-09-30 18:15 | External Medical Summary ---
Author Name Unknown Address Unknown Organization K01[place] [facility] [place] [address] [place] [address] Laboratory Report Ordering Provider Test Date Status ALESSANDRA BOO 08/16/2024 11:22:00 Final Observation Date Value Abnormality Reference (Units ) Status WBC, Total 08/16/2024 11:22:00 11.26 Above high normal 4.00-10.80 (K/uL) Final RBC 08/16/2024 11:22:00 2.17 4.50-5.25 (M/uL) Final Hemoglobin 08/16/2024 11:22:00 7.1 Below low normal 14.0-16.8 (g/dL) Final HCT 08/16/2024 11:22:00 21.4 Below low normal 40.0-48.4 (%) Final MCV 08/16/2024 11:22:00 98.6 82.0-99.5 (fL) Final MCH 08/16/2024 11:22:00 32.7 27.0-34.0 (pg) Final MCHC 08/16/2024 11:22:00 33.2 32.0-36.0 (g/dL) Final RDW 08/16/2024 11:22:00 15.9 11.5-15.5 (%) Final Platelets 08/16/2024 11:22:00 115 Below low normal 140-400 (K/uL) Final MPV 08/16/2024 11:22:00 12.7 6.6-11.1 (fL) Final Nucleated erythrocytes/100 leukocytes [Ratio] in Blood by Automated count 08/16/2024 11:22:00 0 <=0 (/100 WBCs) Final Performing Location [place] [facility] [place] [address] [place] [address]
--- OUTSIDE RECORDS SUMMARY | 2024-09-30 18:15 | External Medical Summary ---
Author Name Unknown Address Unknown Organization K01:LABORATORY [facility] - [address] [place] [address] Laboratory Report Ordering Provider Test Date Status JUAN MENDIETA 08/18/2024 07:41:00 Final Observation Date Value Abnormality Reference (Units ) Status Magnesium 08/18/2024 07:41:00 2.4 1.5-2.6 (m g/dL) Final Performing Location [facility] - [address] [place] [address]
--- OUTSIDE RECORDS SUMMARY | 2024-09-30 18:15 | External Medical Summary ---
Author Name Unknown Address Unknown Organization K01:LABORATORY [facility] [place] [address] [place] [address] Laboratory Report Ordering Provider Test Date Status JUAN MENDIETA 08/14/2024 05:00:00 Final Observation Date Value Abnormality Reference (Units ) Status Lactic Acid 08/14/2024 05:00:00 1.6 0.4-2.0 (mmol/L) Final Performing Location [facility] - [address] [place] [address]
--- OUTSIDE RECORDS SUMMARY | 2024-09-30 18:15 | External Medical Summary ---
Author Name Unknown Address Unknown Organization K01:LABORATORY [facility] - [address] [place] [address] Laboratory Report Ordering Provider Test Date Status JUAN MENDIETA 08/17/2024 04:59:00 Final Observation Date Value Abnormality Reference (Units ) Status Phosphate 08/17/2024 04:59:00 3.2 2.5-4.8 (m g/dL) Final Performing Location [facility] - [address] [place] [address]
--- OUTSIDE RECORDS SUMMARY | 2024-09-30 18:15 | External Medical Summary ---
Author Name Unknown Address Unknown Organization K01:[place] [facility] [place] [address] [place] [address] [place] [address] Laboratory Report Ordering Provider Test Date Status ALESSANDRA BOO 08/18/2024 21:55:00 Final Observation Date Value Abnormality Reference (Units ) Status WBC, Total 08/18/2024 21:55:00 7.49 4.00-10.80 (K/uL) Final RBC 08/18/2024 21:55:00 2.07 4.50-5.25 (M/uL) Final Hemoglobin 08/18/2024 21:55:00 6.7 Below low normal 14.0-16.8 (g/dL) Final HCT 08/18/2024 21:55:00 22.2 Below low normal 40.0-48.4 (%) Final MCV 08/18/2024 21:55:00 107.2 82.0-99.5 (fL) Final MCH 08/18/2024 21:55:00 32.4 27.0-34.0 (pg) Final MCHC 08/18/2024 21:55:00 30.2 32.0-36.0 (g/dL) Final RDW 08/18/2024 21:55:00 16.5 11.5-15.5 (%) Final Platelets 08/18/2024 21:55:00 175 140-400 (K/uL) Final MPV 08/18/2024 21:55:00 11.6 6.6-11.1 (fL) Final Nucleated erythrocytes/100 leukocytes [Ratio] in Blood by Automated count 08/18/2024 21:55:00 0 <=0 (/100 WBCs) Final Performing Location [facility] - [address] [place] [address]
--- OUTSIDE RECORDS SUMMARY | 2024-09-30 18:15 | External Medical Summary ---
Author Name Unknown Address Unknown Organization K01:LABORATORY [facility] [place] - [address] [place] [address] Laboratory Report Ordering Provider Test Date Status JAMES BARFIELD 08/16/2024 03:26:00 Final Observation Date Value Abnormality Reference (Units ) Status BUN 08/16/2024 03:26:00 48 Above high normal 6-20 (mg/dL) Final Creatinine 08/16/2024 03:26:00 3.3 Above high normal 0.6-1.2 (mg/dL) Final Glomerular filtration rate/1.73 sq M.predicted [Volume Rate/Area] in Serum, Plasma or Blood by Creatinine-based formula (CKD-EPI) 08/16/2024 03:26:00 19 Below low normal >=60 (mL/min) Final eGFR is calculated based on the CKD-EPI 2020 equation. Sodium 08/16/2024 03:26:00 135 135-146 (m mol/L) Final Potassium 08/16/2024 03:26:00 4.1 3.5-5.1 (m mol/L) Final Cl 08/16/2024 03:26:00 105 98-107 (mm ol/L) Final CO2 08/16/2024 03:26:00 19 Below low normal 22- 32 (mmol/L) Final Anion gap 08/16/2024 03:26:00 11 7-15 (mmol /L) Final Glucose 08/16/2024 03:26:00 112 70-120 (mg /dL) Final Calcium 08/16/2024 03:26:00 7.8 Below low normal 8.4 -10.2 (mg/dL) Final Performing Location LABORATORY [facility] [place] - [address] [place] [address]
--- OUTSIDE RECORDS SUMMARY | 2024-09-30 18:15 | External Medical Summary ---
Author Name Unknown Address Unknown Organization K01:LABORATORY [facility] [place] - [address] [place] [address] Laboratory Report Ordering Provider Test Date Status STEF TRUONG 08/18/2024 00:56:00 Final Observation Date Value Abnormality Reference (Units ) Status WBC, Total 08/18/2024 00:56:00 5.44 4.00-10.80 (K/uL) Final RBC 08/18/2024 00:56:00 1.87 4.50-5.25 (M/uL) Final Hemoglobin 08/18/2024 00:56:00 6.0 Below lower panic limits 14.0-16.8 (g/dL) Final HCT 08/18/2024 00:56:00 19.3 Below low normal 40.0-48.4 (%) Final MCV 08/18/2024 00:56:00 103.2 82.0-99.5 (fL) Final MCH 08/18/2024 00:56:00 32.1 27.0-34.0 (pg) Final MCHC 08/18/2024 00:56:00 31.1 32.0-36.0 (g/dL) Final RDW 08/18/2024 00:56:00 16.0 11.5-15.5 (%) Final Platelets 08/18/2024 00:56:00 129 Below low normal 140-400 (K/uL) Final MPV 08/18/2024 00:56:00 11.8 6.6-11.1 (fL) Final Nucleated erythrocytes/100 leukocytes [Ratio] in Blood by Automated count 08/18/2024 00:56:00 0 <=0 (/100 WBCs) Final Performing Location LABORATORY [facility] - [address] [place] [address]
--- OUTSIDE RECORDS SUMMARY | 2024-09-30 18:15 | External Medical Summary ---
Author Name Unknown Address Unknown Organization K01:[facility] [place] - [address] [place] [address] Laboratory Report Ordering Provider Test Date Status ALESSANDRA BOO 08/18/2024 07:41:00 Final Observation Date Value Abnormality Reference (Units ) Status WBC, Total 08/18/2024 07:41:00 5.38 4.00-10.80 (K/uL) Final RBC 08/18/2024 07:41:00 1.95 4.50-5.25 (M/uL) Final Hemoglobin 08/18/2024 07:41:00 6.4 Below low normal 14.0-16.8 (g/dL) Final HCT 08/18/2024 07:41:00 20.7 Below low normal 40.0-48.4 (%) Final MCV 08/18/2024 07:41:00 106.2 82.0-99.5 (fL) Final MCH 08/18/2024 07:41:00 32.8 27.0-34.0 (pg) Final MCHC 08/18/2024 07:41:00 30.9 32.0-36.0 (g/dL) Final RDW 08/18/2024 07:41:00 16.2 11.5-15.5 (%) Final Platelets 08/18/2024 07:41:00 146 140-400 (K/uL) Final MPV 08/18/2024 07:41:00 11.8 6.6-11.1 (fL) Final Nucleated erythrocytes/100 leukocytes [Ratio] in Blood by Automated count 08/18/2024 07:41:00 0 <=0 (/100 WBCs) Final Performing Location [facility] - [address] [place] [address]
--- OUTSIDE RECORDS SUMMARY | 2024-09-30 18:15 | External Medical Summary ---
Author Name Unknown Address Unknown Organization K01:[facility] [place] [address] [facility] [address] Laboratory Report Ordering Provider Test Date Status MARLOELANARonnie 08/13/2024 10:50:00 Final Observation Date Value Abnormality Reference (Units ) Status Clot formation [Time] in Blood by Thromboelastography 08/13/2024 10:50:00 6.8 2.5-8.3 (minutes) Final Clot strength in Blood by Thromboelastography 08/13/2024 10:50:00 1.8 0.5-3.7 (minutes) Final Clot angle in Blood by Thromboelastography 08/13/2024 10:50:00 64.8 46.8-78.4 (degrees) Final Maximum clot firmness [Length] in Blood by Thromboelastography 08/13/2024 10:50:00 64.3 50.6-72.5 (mm) Final Coagulation index in Blood b y Thromboelastography 08/13/2024 10:50:00 -0.1 -3.0-3.0 Final Clot Lysis [Length fraction] in Blood by Thromboelastography --30 minutes post maximum clot amplitude 08/13/2024 10:50:00 0.0 0.0-7.5 (%) Final This is an appended report. These results have been appended to a previously preliminary verified report. Performing Location [facility] [place] [address] [place] [address]
--- OUTSIDE RECORDS SUMMARY | 2024-09-30 18:15 | External Medical Summary ---
Author Name Unknown Address Unknown Organization K01:[facility] - [address] [place] [address] Laboratory Report Ordering Provider Test Date Status JUAN MENDIETA 08/19/2024 07:46:00 Final Observation Date Value Abnormality Reference (Units ) Status Magnesium 08/19/2024 07:46:00 2.1 1.5-2.6 (m g/dL) Final Performing Location [facility] - [address] [place] [address]
--- OUTSIDE RECORDS SUMMARY | 2024-09-30 18:15 | External Medical Summary ---
Author Name Unknown Address Unknown Organization K01:LABORATORY [facility] - [address] [place] [address] Laboratory Report Ordering Provider Test Date Status JAMES BARFIELD 08/17/2024 07:07:00 Final Observation Date Value Abnormality Reference (Units ) Status WBC, Total 08/17/2024 07:07:00 7.27 4.00-10.80 (K/uL) Final RBC 08/17/2024 07:07:00 2.16 4.50-5.25 (M/uL) Final Hemoglobin 08/17/2024 07:07:00 7.1 Below low normal 14.0-16.8 (g/dL) Final HCT 08/17/2024 07:07:00 21.9 Below low normal 40.0-48.4 (%) Final MCV 08/17/2024 07:07:00 101.4 82.0-99.5 (fL) Final MCH 08/17/2024 07:07:00 32.9 27.0-34.0 (pg) Final MCHC 08/17/2024 07:07:00 32.4 32.0-36.0 (g/dL) Final RDW 08/17/2024 07:07:00 15.9 11.5-15.5 (%) Final Platelets 08/17/2024 07:07:00 120 Below low normal 140-400 (K/uL) Final MPV 08/17/2024 07:07:00 12.1 6.6-11.1 (fL) Final Nucleated erythrocytes/100 leukocytes [Ratio] in Blood by Automated count 08/17/2024 07:07:00 0 <=0 (/100 WBCs) Final Performing Location [facility] - [address] [place] [address]
--- OUTSIDE RECORDS SUMMARY | 2024-09-30 18:15 | External Medical Summary | Summary of Care ---
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 Operator Name Role Phone Fuentes sAhton MD Primary Care Provider [phone] Reason for Visit * Reason Comments Re-Check Pt presents today fo r recheck/re-bandage of L neck * Evaluate & Treat - Unlimited Visits (Within 30 days (routine)) - Pending Review Specialty Diagnoses / Procedures Referred By Ayanna rios Referred To Contact Dermatology Diagnoses SCC (squamous cell carcinoma), scalp/neck Malaika Guzman PA-C [address] [place] [address] Referral ID Status Reason Start Date Expiration Date Visits Requested Visits Authorized [id number] Pending Review Specialty Services Required 07/03/[phone] Encounter Details Date Type Department Care Team (Late st Contact Info) Description 08/04/2024 2:00 PM EDT Office Visit [facility] [address] [place] [address] Supriya Fernandes MD [address] [place] [phone] Visit for wound check* Allergies Active Allergy Reactions Criticality Noted Date Comments Aztreonam Hives Medium 10/11/2019 Cephalosporins Rash 05/24/2017 Tolerated cefazolin during August 2024 admission Chlorhexidine Hives,Rash High 01/02/2022 Full body red rash; "skin peeled completely off" Ciprofloxacin Diarrhea Medium 01/28/2015 Iodinated Contrast Media Abdominal pain High 019 Acute kidney failure Levofloxacin Rash Low 07/28/2019 documented as of this encounter (statuses as of 08/15/2024) Medications Medication Sig Dispensed Refills Start Date End Date Status PredniSONE (DELTASONE) 20 MG TabletIndications: Contact dermatitis Take 2 Tabs by mouth daily for 5 days. 10 Tab 0 5 Suspended Additional Information PredniSONE (DELTASONE) 20 MG TabletIndications: Dysphagia, unspecified type,Acute pharyngitis, unspecified etiology,Ptosis of left eyelid Take 2 Tabs by mouth daily for 7 days. 14 Tab 8 Suspended Additional Information predniSONE 20 MG Oral Tablet (Deltasone)Indicat ions:COPD with acute exacerbation (HCC) Take by mouth 2 Tablets in the morning for 5 days. 10 Tablet 2 Suspended Additional Information Apixaban 5 MG Oral Tablet (Eliquis)Indicatio ns:Paroxysmal atrial fibrillation (HCC) Take by mouth 1 Tablet in the morning AND 1 Tablet before bedtime. 60 Tablet 2 Suspended Additional Information Patient taking differently:5 mg Oral BID (.AM/PM),Pt off Eliquis as of 08/07 for surgery, Reported on 08/08/2024 Tylenol 325 MG Oral Capsule (Acetaminophen) Take by mouth 2 Tablets every 6 hours as needed for Pain, Mild or Other (Fever, Headache). 90 Capsule 2 Suspended Additional Information Levothyroxine Sodium 50 MCG Oral Tablet (Levoxyl)Indicatio ns:Acquired hypothyroidism (at least 30 min prior to breakfast or other meds)take 1 tablet by mouth once daily AT LEAST 30 MINUTES PRIOR TO BREAKFAST OR OTHER MEDS 30 Tablet 2 Suspended Additional Information Omeprazole 20 MG Oral Capsule Delayed Release (PriLOSEC)Indicati ons:Gastroesophage al reflux disease without esophagitis,FDC (current) use 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 Take by mouth 1 Capsule in the morning. 30 minutes before a meal. 30 Capsule 2 Suspended Additional Information Vitamin B 12 500 MCG Oral Tablet Take by mouth 1 Tablet daily . Suspended Atorvastatin Calcium 20 MG Oral Tablet (Lipitor)Indicatio ns:Dyslipidemia, goal LDL below 70 Take 1 Tablet by mouth at bedtime. 90 Tablet 3 09/11/202 3 Suspended Additional Information Metoprolol Succinate ER 25 MG Oral Tablet Extended Release 24 Hour (Toprol XL) Take 1 Tablet by mouth in the morning. 15 Tablet 3 Suspended Additional Information Testosterone Cypionate 100 MG/ML Intramuscular Solution inject 0.75 milliliter intramuscularly every 7 days 3 Suspended Umeclidinium-Vilan terol 62.5-25 MCG/ACT Inhalation Aerosol Powder Breath Activated (ANORO ellipta)Indication s:COPD, moderate (HCC) Inhale 1 Puff by mouth in the morning. 180 Each 3 4 Suspended Additional Information Furosemide 20 MG Oral Tablet (Lasix)Indications :Bilateral lower extremity edema Take 1 Tablet by mouth daily as needed (lower extremity edema). 30 Tablet 11 4 Suspended Additional Information Sodium Bicarbonate 650 MG Oral Tablet Take 1 Tablet by mouth in the morning and 1 Tablet before bedtime. 180 Tablet 3 4 Suspended Additional Information predniSONE 5 MG Oral Tablet (Deltasone)Indicat ions:Erythema nodosum Take 1.5 Tablets by mouth in the morning. 135 Tablet 4 4 Suspended Additional Information Calcitriol 0.25 MCG Oral Capsule (Rocaltrol)Indicat ions:Renal osteodystrophy Take 1 Capsule by mouth in the morning. 30 Capsule 5 4 Suspended Additional Information Albuterol Sulfate 108 (90 Base) MCG/ACT Inhalation Aerosol Powder Breath ActivatedIndicatio ns:COPD, moderate (HCC) Inhale 2 Puffs by mouth every 4 hours as needed for Shortness of Breath. 1 Each 11 4 Suspended Additional Information Albuterol Sulfate (2.5 MG/3ML) 0.083% Inhalation Nebulization Solution (Proventil)Indicat ions:COPD, group C, by GOLD 2017 classification ([facility]) Inhale 1 Vial via nebulizer every 4 hours as needed for Shortness of Breath or Wheezing. 360 mL 4 Suspended Additional Information Allopurinol 100 MG Oral Tablet (Zyloprim) Take 2 Tablets by mouth in the morning. 180 Tablet 4 4 Suspended Additional Information Econazole Nitrate 1 % External Cream (Spectazole)Indica tions:Rash and nonspecific skin eruption Apply to affected area on buttock, back and legs twice a day for 6 weeks 170 g 3 09/16/202 4 Suspended Additional Information Doxycycline Monohydrate 100 MG Oral Capsule Take 1 Capsule by mouth in the morning and 1 Capsule before bedtime. Do all this for 14 days. 28 Capsule 4 08/14/20 24 documented as of this encounter (statuses as of 08/15/2024) Active Problems Problem Noted Date Diagnosed Date Postoperative anemia due to acute blood loss [...] 02/02/2022 Hypogonadism in male 12/01/2021 Telangiectasias 03/03/2021 Atherosclerosis of abdominal aorta 06/21/2020 Overview: CT Abd/pelvis from 2019 Atherosclerotic heart diseas e of [place] coronary artery without angina pectoris 05/31/2020 CKD (chronic kidney disease) stage 4, GFR 15-29 ml/min 07/17/2019 Chronic anticoagulation 04/03/2019 Vitamin D deficiency 11/17/2018 Senile osteoporosis 09/06/2018 Paroxysmal atrial fibrillation 07/08/2018 Last Assessment & Plan: Rate controlled on metoprolol Continue apixaban History of acute tubular necrosis 06/29/2018 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 IPMN (intraductal papillary mucinous neoplasm) 0 03/09/2018 Overview: MRI 02/23 FDC (current) use 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 Steroid-induced diabetes 02/26/2018 Spinal stenosis of lumbar re gion with neurogenic claudication 02/05/2018 Mediastinal lymphadenopathy 10/19/2017 Overview: CT 07/2017 Acquired hypothyroidism 10/09/2017 Erythema nodosum 09/28/2017 Last Assessment & Plan: Followed by rheumatology On prednisone 7.5mg daily Dyslipidemia, goal LDL below 70 01/21/2015 HTN, goal below 140/90 10/18/2014 Gastroesophageal reflux disease without esophagi tis 03/12/2014 documented as of this encounter (statuses as of 08/15/2024) Resolved Problems Problem Noted Date Diagnosed Date [...] chronic kidney disease 08/03/2023 08/03/2023 Atherosclerosis of [place] co ronary artery without angina pectoris [...] 03/03/2021 05/19/2023 Moderate protein-calorie malnutrition 01/06/2021 07/19/2023 COPD, moderate 01/06/2021 04/20/2024 Overview: Per COPD GOLD Classification Pulmonary hypertension, unspecified 01/06/2021 12/01/2021 Type 2 [...] Rash and nonspecific skin eruption 07/11/2015 01/21/2016 Essential hypertension 03/12/201410/18 Overview: ICD-10 update of inactive term Pure hypercholesterolemia 03/12/2014 ATN (acute tubular necrosis) 2019 documented as of this encounter (statuses as of 08/15/2024) Immunizations Name Administration Dates Next Due COVID-19 mRNA, LNP-s, No Pre serve, 2-Dose Series (UNYQ) 08/15/2021,01/31/2021,01/03/2021 COVID-19, LNP-s, No Preserve , Ruslan-sucrose, Ages 12+ (Pfizer) 03/19/2022 COVID-19, MRNA-LNP, 23-24, P F, 30 MCG/0.3 mL, 12 YRS AND ABOVE, IM ([employer]-Comirnaty) 10/25/2023 Covid-19, Mrna, Lnp-s, Pf, B ivalent, 30 Mcg, IM, 12 yrs and above (UNYQ) 2022 Pneumococcal Conjugate Vacc, 13 Valent (Prevnar) 01/21/2016 Pneumococcal Conjugate Vacci ne, 20-valent ([id number]) 07/19/2023 Pneumococcal Polysaccharide PPV23 (Pneumovax) 01/13/2011 RSV [...] 01/31/2024 Does the household have a re lar [...] or do you have serious difficulty hearing? No 03/18/2024 Are you blind or do you have serious difficulty seeing, even when wearing glasses? No 03/18/2024 Do you have serious difficul ty walking or climbing stairs? (5 years old or older) Yes-ambualtes with cane 03/18/2024 Do you have difficulty dress ing or bathing? (5 years old or older) No 03/18/2024 Because of a physical, menta l, or emotional condition, do you have difficulty doing errands alone such as visiting a doctor s office or shopping? (15 years old or older) No 03/18/2024 Cognitive Status Response Date of Assessm ent Because of a physical, menta l, or emotional condition, do you have serious difficulty concentrating, remembering, or making decisions? (5 years old or older) No 03/18/2024 documented as of this encounter Progress Notes * Supriya Fernandes MD - 08/04/2024 2:08 PM EDT SUBJECTIVE: HPI: Kennedy Davis is a 78 year old male seen today for wound check/bandage change. He is doing well. Scheduled for surgery with ENT 08/10/2024. Per patient/patient's , they have been advised on instructions re taking/holding Eliquis from now until the 08/10/2024 surgery. Currently he is back on Eliquis. EXAM Surgical wound on left neck healing well Prolene sutures marking hash barnes removed except for prolene suture marking 12 o'clock hash lucretia PLAN Wound cleaned and re-bandaged further excision and neck dissection with ENT scheduled for 08/10/2024 Follow-up: 3 months The patient was encouraged to contact me with any further questions or concerns. Supriya Fernandes MD Associate, Mohs Micrographic Surgery & Dermatologic Surgery documented in this encounter Nursing Notes * Sully Dale LPN - 08/04/2024 2:06 PM EDT Chief Complaint Patient presents with Re-Check Pt presents today for recheck/re-bandage of L neck documented in this encounter Plan of Treatment Upcoming Encounters Date Type Department Care Team (Late st Contact Info) Description 08/21/2024 2:00 PM EDT Office Visit [facility] [place] [phone] Fuentes Ashton MD [address] [place] [id number] 08/31/2024 11:20 AM EDT Office Visit Nephrology, [address] [address] Keisha Gunn MD [address] [place] [address] 11/14/2024 1:15 PM EST Office Visit [facility] [address] [place] [address] Supriya Fernandes MD [address] [place] [address] 12/21/2024 1:30 PM EST Office Visit Dermatology, [place] [address] [facility] [address] [place] [address] Malaika Guzman PA-C [address] [place] [address] 01/22/2025 1:30 PM EDT PulmDiagnostic Pulmonary Function Lab [facility] [address] [facility] [facility] [place] [address] [address], [address] [facility] [place] [address] 01/22/2025 2:00 PM EDT Office Visit Pulmonary Medicine [facility] [place] [address] [facility] [facility] [place] [phone] Dominguez Aguilar MD [address] [facility] [address] 02/05/2025 10:00 AM EDT Office Visit Rheumatology, [address] [place] [address] Rafael Hernandez, PA-C [address] [place] [address] [place] [address] 02/06/2025 1:30 PM EDT Office Visit Cardiology, [place] [address] [place] [address] Cherry Warner PA-C [address] [place] [address] Scheduled Procedures Name Priority Associated Diagnoses Date/Ti [...] history exists Depression Screening 02/06/2025 02/07/2024 GFR 02/13/2025 08/15/2024, 10/0 05/2024, 08/13/2024, Additional history exists Albumin/Creatinine Ratio 03/27/2025 024, [...] this encounter Medical Devices Implanted Type 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 Power Plant 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 Device Identifier Shelf Expiration Date Model / Serial / Lot Mesh Perfix Plug Lg [id number] - [id number] Implanted:Qty : 1 on 02/07/2019 by Jonathan Correia DO at OR [facility] Right: Groin CR BARD : DAVOL 09/04/2023 [id number] / / [id number] Cytal Wndmtx 1lyr 50r22kw(150 Units) - [id number] - [id number] Implanted:Qty : 1 on 08/10/2024 by Lexie Aldridge [place] [facility] Left: Leg Upper [employer] [id number] 10/07/2025 [id number] / [id number] / [id number] Cytal Wndmtx 1lyr 7x10cm (70 Units) - [id number] - [id number] Implanted:Qty : 1 on 08/10/2024 by Lexie Aldridge MD [place] [facility] [place]: Leg Upper [employer] [id number] 01/05/2026 [id number] / [id number] / [id number] documented as of this encounter Visit Diagnoses Diagnosis Visit for wound check- Primary Encounter for other specified aftercare documented in this encounter Advance Directives Documents on File Type Date 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
--- OUTSIDE RECORDS SUMMARY | 2024-09-30 18:15 | External Medical Summary ---
Author Name Unknown Address Unknown Organization K01:LABORATORY [facility] [place] - [address] [place] [place] [address] Laboratory Report Ordering Provider Test Date Status ALESSANDRA BOO 08/19/2024 07:46:00 Final Observation Date Value Abnormality Reference (Units ) Status WBC, Total 08/19/2024 07:46:00 8.67 4.00-10.80 (K/uL) Final RBC 08/19/2024 07:46:00 2.08 4.50-5.25 (M/uL) Final Hemoglobin 08/19/2024 07:46:00 6.8 Below low normal 14.0-16.8 (g/dL) Final HCT 08/19/2024 07:46:00 22.1 Below low normal 40.0-48.4 (%) Final MCV 08/19/2024 07:46:00 106.3 82.0-99.5 (fL) Final MCH 08/19/2024 07:46:00 32.7 27.0-34.0 (pg) Final MCHC 08/19/2024 07:46:00 30.8 32.0-36.0 (g/dL) Final RDW 08/19/2024 07:46:00 17.2 11.5-15.5 (%) Final Platelets 08/19/2024 07:46:00 190 140-400 (K/uL) Final MPV 08/19/2024 07:46:00 11.5 6.6-11.1 (fL) Final Nucleated erythrocytes/100 leukocytes [Ratio] in Blood by Automated count 08/19/2024 07:46:00 0 <=0 (/100 WBCs) Final Performing Location [facility] - [address] [place] [address]
--- OUTSIDE RECORDS SUMMARY | 2024-09-30 18:15 | External Medical Summary ---
Author Name Unknown Address Unknown Organization K01:[facility] - [address] [place] [address] Laboratory Report Ordering Provider Test Date Status JUAN MENDIETA 08/15/2024 06:41:00 Final Observation Date Value Abnormality Reference (Units ) Status Magnesium 08/15/2024 06:41:00 2.0 1.5-2.6 (m g/dL) Final Performing Location [facility] - [address] [place] [address]
--- OUTSIDE RECORDS SUMMARY | 2024-09-30 18:15 | External Medical Summary ---
Author Name Unknown Address Unknown Organization K01:[facility]ORY [facility] [place] - [address] [place] [address] Laboratory Report Ordering Provider Test Date Status JUAN MENDIETA 08/14/2024 05:00:00 Final Observation Date Value Abnormality Reference (Units ) Status WBC, Total 08/14/2024 05:00:00 8.38 4.00-10.80 (K/uL) Final RBC 08/14/2024 05:00:00 2.51 4.50-5.25 (M/uL) Final Hemoglobin 08/14/2024 05:00:00 7.9 Below low normal 14.0-16.8 (g/dL) Final HCT 08/14/2024 05:00:00 25.2 Below low normal 40.0-48.4 (%) Final MCV 08/14/2024 05:00:00 100.4 82.0-99.5 (fL) Final MCH 08/14/2024 05:00:00 31.5 27.0-34.0 (pg) Final MCHC 08/14/2024 05:00:00 31.3 32.0-36.0 (g/dL) Final RDW 08/14/2024 05:00:00 16.9 11.5-15.5 (%) Final Platelets 08/14/2024 05:00:00 81 Below low normal 140-400 (K/uL) Final MPV 08/14/2024 05:00:00 12.7 6.6-11.1 (fL) Final Nucleated erythrocytes/100 leukocytes [Ratio] in Blood by Automated count 08/14/2024 05:00:00 0 <=0 (/100 WBCs) Final Performing Location [facility] - [address] [place] [address]
--- OUTSIDE RECORDS SUMMARY | 2024-09-30 18:15 | External Medical Summary | Summary of Care ---
Author Name Unknown Organization [facility] Address [address] [facility] [place] [address] Phone [phone] Care Team Providers Care Wiring Technician Name Role Phone Fuentes Ashton MD Primary Care Provider [phone] Reason for Visit * Reason Onset Date Comments Test Results 08/14/2024 Encounter Details Date Type Department Care Team (Late st Contact Info) Description 08/14/2024 Telephone Dermatology, Ahmet Rowell [address] [place] [phone] Malaika Guzman PA-C [address] [place] [address] Test Results Allergies Active Allergy Reactions Criticality Noted Date [...] mouth at bedtime. 90 Tablet 3 3 Suspended Additional Information Metoprolol Succinate ER [...] mouth in the morning. 180 Each 3 03/22/202 4 Suspended Additional Information Furosemide 20 MG [...] needed for Shortness of Breath. 1 Each 4 Suspended Additional Information Albuterol Sulfate (2.5 [...] for 6 weeks 170 g 3 4 Suspended Additional Information documented as of this encounter (statuses as [...] from 2018 Atherosclerotic heart diseas e of [place] coronary artery without angina pectoris 05/31/2020 CKD (chronic kidney disease) stage 4, GFR 15-29 ml/min 07/17/2019 Chronic anticoagulation 04/03/2019 Vitamin D deficiency 11/17/2018 Senile osteoporosis 09/06/2018 Paroxysmal atrial fibrillation 07/08/2018 Last Assessment & Plan: Rate controlled on metoprolol Continue apixaban History of acute tubular necrosis 06/29/2018 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 IPMN (intraductal papillary mucinous neoplasm) 0 03/09/2018 Overview: MRI 02/23 care home (current) use 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 08/03/2023 08/03/2023 Atherosclerosis of [place] co ronary artery without angina pectoris 02/01/2023 [...] mRNA, LNP-s, No Pre serve, 2-Dose Series ([employer]) 08/15/2021,01/31/2021,01/03/2021 COVID-19, LNP-s, No Preserve , Ruslan-sucrose, Ages 12+ ([employer]) 03/19/2022 COVID-19, MRNA-LNP, 23-24, P F, 30 MCG/0.3 mL, 12 YRS AND ABOVE, IM (Vidyard-ComirnatSwitchNote) 10/25/2023 Covid-19, Mrna, Lnp-s, Pf, B ivalent, 30 Mcg, IM, 12 yrs and above (Pfizer) 2022 Pneumococcal Conjugate Vacc, 13 Valent (Prevnar) 01/21/2016 Pneumococcal Conjugate Vacci ne, 20-valent ([id number]) 07/19/2023 Pneumococcal Polysaccharide PPV23 (Pneumovax) 01/13/2011 RSV [...] encounter Miscellaneous Notes * Telephone Encounter - Arina Nguyen LPN - 08/15/2024 8:29 AM EDT Spoke with - Kennedy is still in ICU. She is aware of below results. Ultrasound of back seems consistent with hematoma. Please call and make sure getting better. No further treatment necessary unless they do not see it improving. Please have monitor it and keep us informed. * Telephone Encounter - Malaika Guzman PA-C - 08/14/2024 4:21 PM EDT Ultrasound of back seems consistent with hematoma. Please call and make sure getting better. No further treatment necessary unless they do not see it improving. Please have monitor it and keep us informed. Malaika Guzman PA-C 08/14/2024 4:22 PM documented in this encounter Plan of Treatment Upcoming Encounters Date Type Department Care Team (Late st Contact Info) Description 08/21/2024 2:00 PM EDT Office Visit [facility] [address] [facility] [place] [address] Fuentes Ashton [facility] [address] 08/31/2024 11:20 AM EDT Office Visit Nephrology, [facility] [address] [place] [address] Keisha Gunn MD [address] [place] [address] 11/14/2024 1:15 PM EST Office Visit [facility] [place] [place] [facility] [address] [place] [address] Supriya Fernandes MD [address] [place] [address] 12/21/2024 1:30 PM EST Office Visit Dermatology, Ahmet Rowell [address] [place] [address] Malaika Guzman PA-C [address] [place] [address] 01/22/2025 1:30 PM EDT PulmDiagnostic Pulmonary Function Lab [facility] [address] [facility] [place] [address] [address], [address]ang [place] [address] 01/22/2025 2:00 PM EDT Office Visit Pulmonary Medicine [facility] [address] [facility] [place] [phone] Dominguez Aguilar MD [address] [facility] [address] 02/05/2025 10:00 AM EDT Office Visit Rheumatology, [facility] 400 [place] [address] Rafael Hernandez PA-C [address] [place] [address], [place] [address] 02/06/2025 1:30 PM EDT Office Visit [address]iology, [address] [address] Cherry Warner PA-C [address] [place] [address] Scheduled Procedures Name Priority Associated Diagnoses Date/Ti [...] Depression Screening 02/06/2025 02/07/2024 GFR 02/13/2025 08/15/2024, 05/2024, 08/13/2024, Additional history exists Albumin/Creatinine Ratio [...] encounter Medical Devices Implanted Type Area 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 [place] Left: Leg Upper [employer] [id number] 10/07/2025 [id number] / [id number] / [id number] Cytal Wndmtx 1lyr 7x10cm (70 Units) - [id number] - [id number] Implanted:Qty : 1 on 08/10/2024 by Lexie Aldridge MD at OR [facility] [place] Left: Leg Upper [employer] [id number] 01/05/2026 [id number] / [id number] / [id number] documented as of this encounter Advance Directives Documents on File Type Date Recorded Patient Principal Clerk Expl anation Advance Directives and Living [...] Colón Adult Child Emergency Contact Care Teams Wiring Technician Relationship Specialty Start Date End Date Fuentes Ashton MD [address] [place] [phone] PCP - General Family Medicine 01/30/22 documented as of this encounter
--- OUTSIDE RECORDS SUMMARY | 2024-09-30 18:15 | External Medical Summary ---
Author Name Unknown Address Unknown Organization [id number][place] [place] [address] [facility] [address] [facility] [address] [place] [address] Laboratory Report Ordering Provider Test Date Status ALYSHA HENRY 08/15/2024 06:40:00 Final Observation Date Value Abnormality Reference (Units ) Status WBC, Total 08/15/2024 06:40:00 15.22 Above high normal 4.00-10.80 (K/uL) Final RBC 08/15/2024 06:40:00 2.13 4.50-5.25 (M/uL) Final Hemoglobin 08/15/2024 06:40:00 6.9 Below low normal 14.0-16.8 (g/dL) Final HCT 08/15/2024 06:40:00 20.0 Below low normal 40.0-48.4 (%) Final MCV 08/15/2024 06:40:00 93.9 82.0-99.5 (fL) Final MCH 08/15/2024 06:40:00 32.4 27.0-34.0 (pg) Final MCHC 08/15/2024 06:40:00 34.5 32.0-36.0 (g/dL) Final RDW 08/15/2024 06:40:00 16.0 11.5-15.5 (%) Final Platelets 08/15/2024 06:40:00 76 Below low normal 140-400 (K/uL) Final MPV 08/15/2024 06:40:00 13.0 6.6-11.1 (fL) Final Nucleated erythrocytes/100 leukocytes [Ratio] in Blood by Automated count 08/15/2024 06:40:00 0 <=0 (/100 WBCs) Final Performing Location [facility] - [address] [place] [address]
--- OUTSIDE RECORDS SUMMARY | 2024-09-30 18:15 | External Medical Summary ---
Author Name Unknown Address Unknown Organization K01:LABORATORY [facility] [place] - [address] [facility] [address] [facility] [address] [place] [address] Laboratory Report Ordering Provider Test Date Status JAMES BARFIELD 08/15/2024 20:22:00 Final Observation Date Value Abnormality Reference (Units ) Status WBC, Total 08/15/2024 20:22:00 9.42 4.00-10.80 (K/uL) Final RBC 08/15/2024 20:22:00 2.15 4.50-5.25 (M/uL) Final Hemoglobin 08/15/2024 20:22:00 7.0 Below low normal 14.0-16.8 (g/dL) Final HCT 08/15/2024 20:22:00 21.3 Below low normal 40.0-48.4 (%) Final MCV 08/15/2024 20:22:00 99.1 82.0-99.5 (fL) Final MCH 08/15/2024 20:22:00 32.6 27.0-34.0 (pg) Final MCHC 08/15/2024 20:22:00 32.9 32.0-36.0 (g/dL) Final RDW 08/15/2024 20:22:00 15.9 11.5-15.5 (%) Final Platelets 08/15/2024 20:22:00 86 Below low normal 140-400 (K/uL) Final MPV 08/15/2024 20:22:00 12.3 6.6-11.1 (fL) Final Nucleated erythrocytes/100 leukocytes [Ratio] in Blood by Automated count 08/15/2024 20:22:00 0 <=0 (/100 WBCs) Final Performing Location [facility] - [address] [place] [address]
--- OUTSIDE RECORDS SUMMARY | 2024-09-30 18:16 | External Medical Summary ---
Author Name Unknown Address Unknown Organization [id number]:LABORATORY [facility] [place] [facility] [place] [facility] - [address] [place] [address] Laboratory Report Ordering Provider Test Date Status NASIM GRIER 08/13/2024 07:17:00 Patricia l Observation Date Value Abnormality Reference (Units ) Status ABO 08/13/2024 07:17:00 A Final RH 08/13/2024 07:17:00 Positive Final RED BLOOD CELL ANTIBODY SCREEN 08/13/2024 07:17:00 Negative Final SPECIMEN EXPIRATION DATE 08/13/2024 07:17:00 08/16/2024 23:59 Final Performing Location LABORATORY [facility] [place] [facility] [place] [facility] - [address] [place] [address]
--- OUTSIDE RECORDS SUMMARY | 2024-09-30 18:16 | External Medical Summary ---
Author Name Unknown Address Unknown Organization K01:LABORATORY [place] - [address] [place] [address] Laboratory Report Ordering Provider Test Date Status ALYSHA HENRY 08/12/2024 23:40:00 Final Observation Date Value Abnormality Reference (Units ) Status WBC, Total 08/12/2024 23:40:00 9.86 4.00-10.80 (K/uL) Final RBC 08/12/2024 23:40:00 2.46 4.50-5.25 (M/uL) Final Hemoglobin 08/12/2024 23:40:00 7.8 Below low normal 14.0-16.8 (g/dL) Final HCT 08/12/2024 23:40:00 24.1 Below low normal 40.0-48.4 (%) Final MCV 08/12/2024 23:40:00 98.0 82.0-99.5 (fL) Final MCH 08/12/2024 23:40:00 31.7 27.0-34.0 (pg) Final MCHC 08/12/2024 23:40:00 32.4 32.0-36.0 (g/dL) Final RDW 08/12/2024 23:40:00 17.6 11.5-15.5 (%) Final Platelets 08/12/2024 23:40:00 77 Below low normal 140-400 (K/uL) Final MPV 08/12/2024 23:40:00 12.7 6.6-11.1 (fL) Final Nucleated erythrocytes/100 leukocytes [Ratio] in Blood by Automated count 08/12/2024 23:40:00 0 <=0 (/100 WBCs) Final Performing Location LAB[facility]ATORY [facility] - [address] [place] [address]
--- OUTSIDE RECORDS SUMMARY | 2024-09-30 18:16 | External Medical Summary ---
Author Name Unknown Address Unknown Organization K01:LABORATORY [facility] [place] - [facility] [address] [facility] [address] Laboratory Report Ordering Provider Test Date Status JAMES BARFIELD 08/11/2024 05:08:36 Final Observation Date Value Abnormality Reference (Units ) Status BUN 08/11/2024 05:08:36 70 Above high normal 6-20 (mg/dL) Final Creatinine 08/11/2024 05:08:36 3.0 Above high normal 0.6-1.2 (mg/dL) Final Glomerular filtration rate/1.73 sq M.predicted [Volume Rate/Area] in Serum, Plasma or Blood by Creatinine-based formula (CKD-EPI) 08/11/2024 05:08:36 21 Below low normal >=60 (mL/min) Final eGFR is calculated based on the CKD-EPI 2020 equation. Sodium 08/11/2024 05:08:36 140 135-146 (m mol/L) Final Potassium 08/11/2024 05:08:36 5.3 Above high normal 3. 5-5.1 (mmol/L) Final Cl 08/11/2024 05:08:36 113 Above high normal 98 -107 (mmol/L) Final CO2 08/11/2024 05:08:36 17 Below low normal 22- 32 (mmol/L) Final Anion gap 08/11/2024 05:08:36 10 7-15 (mmol /L) Final Glucose 08/11/2024 05:08:36 97 70-120 (mg /dL) Final Calcium 08/11/2024 05:08:36 7.9 Below low normal 8.4 -10.2 (mg/dL) Final Performing Location LABORATORY [facility] [place] - [address] [place] [address]
--- OUTSIDE RECORDS SUMMARY | 2024-09-30 18:16 | External Medical Summary ---
Author Name Unknown Address Unknown Organization K01:[facility] [place] [address] [place] [address] Laboratory Report Ordering Provider Test Date Status JAMES BARFIELD 08/10/2024 20:26:02 Final Observation Date Value Abnormality Reference (Units ) Status WBC, Total 08/10/2024 20:26:02 17.40 Above high normal 4.00-10.80 (K/uL) Final RBC 08/10/2024 20:26:02 2.37 4.50-5.25 (M/uL) Final Hemoglobin 08/10/2024 20:26:02 7.8 Below low normal 14.0-16.8 (g/dL) Final HCT 08/10/2024 20:26:02 24.7 Below low normal 40.0-48.4 (%) Final MCV 08/10/2024 20:26:02 104.2 82.0-99.5 (fL) Final MCH 08/10/2024 20:26:02 32.9 27.0-34.0 (pg) Final MCHC 08/10/2024 20:26:02 31.6 32.0-36.0 (g/dL) Final RDW 08/10/2024 20:26:02 14.0 11.5-15.5 (%) Final Platelets 08/10/2024 20:26:02 89 Below low normal 140-400 (K/uL) Final MPV 08/10/2024 20:26:02 13.9 6.6-11.1 (fL) Final Nucleated erythrocytes/100 leukocytes [Ratio] in Blood by Automated count 08/10/2024 20:26:02 0 <=0 (/100 WBCs) Final Performing Location [facility] [place] [address] [place] [address]
--- OUTSIDE RECORDS SUMMARY | 2024-09-30 18:16 | External Medical Summary ---
Author Name Unknown Address Unknown Organization K01:[facility]ATORY [facility] [place] - [address] [facility] [address] Laboratory Report Ordering Provider Test Date Status JAMES BARFIELD 08/10/2024 15:53:08 Final Observation Date Value Abnormality Reference (Units ) Status BUN 08/10/2024 15:53:08 75 Above high normal 6-20 (mg/dL) Final Creatinine 08/10/2024 15:53:08 2.6 Above high normal 0.6-1.2 (mg/dL) Final Glomerular filtration rate/1.73 sq M.predicted [Volume Rate/Area] in Serum, Plasma or Blood by Creatinine-based formula (CKD-EPI) 08/10/2024 15:53:08 25 Below low normal >=60 (mL/min) Final eGFR is calculated based on the CKD-EPI 2020 equation. Sodium 08/10/2024 15:53:08 137 135-146 (m mol/L) Final Potassium 08/10/2024 15:53:08 4.9 3.5-5.1 (m mol/L) Final Cl 08/10/2024 15:53:08 105 98-107 (mm ol/L) Final CO2 08/10/2024 15:53:08 19 Below low normal 22- 32 (mmol/L) Final Anion gap 08/10/2024 15:53:08 13 7-15 (mmol /L) Final Glucose 08/10/2024 15:53:08 146 Above high normal 70 -120 (mg/dL) Final Calcium 08/10/2024 15:53:08 10.4 Above high normal 8. 4-10.2 (mg/dL) Final Performing Location LABORATORY [facility] [place] - [address] [place] [address]
--- OUTSIDE RECORDS SUMMARY | 2024-09-30 18:16 | External Medical Summary ---
Author Name Unknown Address Unknown Organization K01:LABORATORY [facility] - [address] [place] [address] Laboratory Report Ordering Provider Test Date Status ALYSHA HENRY 08/11/2024 05:08:36 Final Observation Date Value Abnormality Reference (Units ) Status WBC, Total 08/11/2024 05:08:36 15.45 Above high normal 4.00-10.80 (K/uL) Final RBC 08/11/2024 05:08:36 1.84 4.50-5.25 (M/uL) Final Hemoglobin 08/11/2024 05:08:36 6.0 Below lower panic limits 14.0-16.8 (g/dL) Final HCT 08/11/2024 05:08:36 19.6 Below low normal 40.0-48.4 (%) Final MCV 08/11/2024 05:08:36 106.5 82.0-99.5 (fL) Final MCH 08/11/2024 05:08:36 32.6 27.0-34.0 (pg) Final MCHC 08/11/2024 05:08:36 30.6 32.0-36.0 (g/dL) Final RDW 08/11/2024 05:08:36 13.8 11.5-15.5 (%) Final Platelets 08/11/2024 05:08:36 67 Below low normal 140-400 (K/uL) Final MPV 08/11/2024 05:08:36 13.1 6.6-11.1 (fL) Final Nucleated erythrocytes/100 leukocytes [Ratio] in Blood by Automated count 08/11/2024 05:08:36 0 <=0 (/100 WBCs) Final Performing Location [facility] - [address] [place] [address]
--- OUTSIDE RECORDS SUMMARY | 2024-09-30 18:16 | External Medical Summary ---
Author Name Unknown Address Unknown Organization K01:LABORATORY [facility] [place] - [address] [place] [address] Laboratory Report Ordering Provider Test Date Status ALYSHA HENRY 08/10/2024 23:06:32 Final Observation Date Value Abnormality Reference (Units ) Status WBC, Total 08/10/2024 23:06:32 19.95 Above high normal 4.00-10.80 (K/uL) Final RBC 08/10/2024 23:06:32 2.36 4.50-5.25 (M/uL) Final Hemoglobin 08/10/2024 23:06:32 7.7 Below low normal 14.0-16.8 (g/dL) Final HCT 08/10/2024 23:06:32 24.9 Below low normal 40.0-48.4 (%) Final MCV 08/10/2024 23:06:32 105.5 82.0-99.5 (fL) Final MCH 08/10/2024 23:06:32 32.6 27.0-34.0 (pg) Final MCHC 08/10/2024 23:06:32 30.9 32.0-36.0 (g/dL) Final RDW 08/10/2024 23:06:32 13.9 11.5-15.5 (%) Final Platelets 08/10/2024 23:06:32 96 Below low normal 140-400 (K/uL) Final MPV 08/10/2024 23:06:32 14.0 6.6-11.1 (fL) Final Nucleated erythrocytes/100 leukocytes [Ratio] in Blood by Automated count 08/10/2024 23:06:32 0 <=0 (/100 WBCs) Final Performing Location [facility] - [address] [place] [address]
--- OUTSIDE RECORDS SUMMARY | 2024-09-30 18:16 | External Medical Summary ---
Author Name Unknown Address Unknown Organization K01[place] [facility] [place] [address] [place] [address] Laboratory Report Ordering Provider Test Date Status ALYSHA HENRY 08/11/2024 17:32:56 Final Observation Date Value Abnormality Reference (Units ) Status WBC, Total 08/11/2024 17:32:56 10.56 4.00-10.80 (K/uL) Final RBC 08/11/2024 17:32:56 2.28 4.50-5.25 (M/uL) Final Hemoglobin 08/11/2024 17:32:56 7.2 Below low normal 14.0-16.8 (g/dL) Final HCT 08/11/2024 17:32:56 23.1 Below low normal 40.0-48.4 (%) Final MCV 08/11/2024 17:32:56 101.3 82.0-99.5 (fL) Final MCH 08/11/2024 17:32:56 31.6 27.0-34.0 (pg) Final MCHC 08/11/2024 17:32:56 31.2 32.0-36.0 (g/dL) Final RDW 08/11/2024 17:32:56 17.9 11.5-15.5 (%) Final Platelets 08/11/2024 17:32:56 51 Below low normal 140-400 (K/uL) Final MPV 08/11/2024 17:32:56 13.7 6.6-11.1 (fL) Final Nucleated erythrocytes/100 leukocytes [Ratio] in Blood by Automated count 08/11/2024 17:32:56 0 <=0 (/100 WBCs) Final Performing Location [facility] - [address] [place] [address]
--- OUTSIDE RECORDS SUMMARY | 2024-09-30 18:16 | External Medical Summary ---
Author Name Unknown Address Unknown Organization K01:LABORATORY [facility] [place] - [address] [place] [address] Laboratory Report Ordering Provider Test Date Status ALYSHA HENRY 08/10/2024 23:34:00 Final Observation Date Value Abnormality Reference (Units ) Status Bacteria identified in Specimen by Culture 08/10/2024 23:34:00 No growth Final Test: Culture, Blood
Sp ecimen Source: Blood, Venous
Specimen Type: Blood
Specimen Date: 08/10/20242333
Result Date: 08/16/2024 0001
Result Status: Final result
Resulting Lab: LABORATORY [facility] [place]
[address]
[place] [address]

CULTURE

No growth

null Performing Location LABORATORY [facility] [place] - [address] [place] [address]
--- OUTSIDE RECORDS SUMMARY | 2024-09-30 18:16 | External Medical Summary ---
Author Name Unknown Address Unknown Organization K01:LABORATORY [facility] [place] - [address] [place] [address] Laboratory Report Ordering Provider Test Date Status ALYSHA HENRY 08/12/2024 05:32:07 Final Observation Date Value Abnormality Reference (Units ) Status WBC, Total 08/12/2024 05:32:07 9.01 4.00-10.80 (K/uL) Final RBC 08/12/2024 05:32:07 2.53 4.50-5.25 (M/uL) Final Hemoglobin 08/12/2024 05:32:07 8.0 Below low normal 14.0-16.8 (g/dL) Final HCT 08/12/2024 05:32:07 24.6 Below low normal 40.0-48.4 (%) Final MCV 08/12/2024 05:32:07 97.2 82.0-99.5 (fL) Final MCH 08/12/2024 05:32:07 31.6 27.0-34.0 (pg) Final MCHC 08/12/2024 05:32:07 32.5 32.0-36.0 (g/dL) Final RDW 08/12/2024 05:32:07 17.2 11.5-15.5 (%) Final Platelets 08/12/2024 05:32:07 59 Below low normal 140-400 (K/uL) Final MPV 08/12/2024 05:32:07 13.7 6.6-11.1 (fL) Final Nucleated erythrocytes/100 leukocytes [Ratio] in Blood by Automated count 08/12/2024 05:32:07 0 <=0 (/100 WBCs) Final Performing Location [facility] - [address] [place] [address]
--- OUTSIDE RECORDS SUMMARY | 2024-09-30 18:16 | External Medical Summary ---
Author Name Unknown Address Unknown Organization K01:[facility] - [address] [place] [address] Laboratory Report Ordering Provider Test Date Status ABAD AMATO 08/12/2024 05:32:07 Final Observation Date Value Abnormality Reference (Units ) Status Magnesium 08/12/2024 05:32:07 2.1 1.5-2.6 (m g/dL) Final Performing Location [facility] - [address] [place] [address]
--- OUTSIDE RECORDS SUMMARY | 2024-09-30 18:16 | External Medical Summary ---
Author Name Unknown Address Unknown Organization K01:LABORATORY [facility] [place] - [address] [place] [address] Laboratory Report Ordering Provider Test Date Status JAMES BARFIELD 08/12/2024 05:32:07 Final Observation Date Value Abnormality Reference (Units ) Status BUN 08/12/2024 05:32:07 63 Above high normal 6-20 (mg/dL) Final Creatinine 08/12/2024 05:32:07 3.0 Above high normal 0.6-1.2 (mg/dL) Final Glomerular filtration rate/1.73 sq M.predicted [Volume Rate/Area] in Serum, Plasma or Blood by Creatinine-based formula (CKD-EPI) 08/12/2024 05:32:07 21 Below low normal >=60 (mL/min) Final eGFR is calculated based on the CKD-EPI 2020 equation. Sodium 08/12/2024 05:32:07 141 135-146 (m mol/L) Final Potassium 08/12/2024 05:32:07 4.8 3.5-5.1 (m mol/L) Final Cl 08/12/2024 05:32:07 112 Above high normal 98 -107 (mmol/L) Final CO2 08/12/2024 05:32:07 19 Below low normal 22- 32 (mmol/L) Final Anion gap 08/12/2024 05:32:07 10 7-15 (mmol /L) Final Glucose 08/12/2024 05:32:07 99 70-120 (mg /dL) Final Calcium 08/12/2024 05:32:07 8.3 Below low normal 8.4 -10.2 (mg/dL) Final Performing Location LABORATORY [facility] [place] - [address] [place] [address]
--- OUTSIDE RECORDS SUMMARY | 2024-09-30 18:16 | External Medical Summary ---
Author Name Unknown Address Unknown Organization K01:LABORATORY [facility] [place] - [address] [place] [address] Laboratory Report Ordering Provider Test Date Status ALYSHA HENRY 08/11/2024 12:00:58 Final Observation Date Value Abnormality Reference (Units ) Status WBC, Total 08/11/2024 12:00:58 12.34 Above high normal 4.00-10.80 (K/uL) Final RBC 08/11/2024 12:00:58 2.03 4.50-5.25 (M/uL) Final Hemoglobin 08/11/2024 12:00:58 6.6 Below low normal 14.0-16.8 (g/dL) Final HCT 08/11/2024 12:00:58 21.2 Below low normal 40.0-48.4 (%) Final MCV 08/11/2024 12:00:58 104.4 82.0-99.5 (fL) Final MCH 08/11/2024 12:00:58 32.5 27.0-34.0 (pg) Final MCHC 08/11/2024 12:00:58 31.1 32.0-36.0 (g/dL) Final RDW 08/11/2024 12:00:58 14.9 11.5-15.5 (%) Final Platelets 08/11/2024 12:00:58 58 Below low normal 140-400 (K/uL) Final MPV 08/11/2024 12:00:58 13.4 6.6-11.1 (fL) Final Nucleated erythrocytes/100 leukocytes [Ratio] in Blood by Automated count 08/11/2024 12:00:58 0 <=0 (/100 WBCs) Final Performing Location [facility] - [address] [place] [address]
--- OUTSIDE RECORDS SUMMARY | 2024-09-30 18:16 | External Medical Summary ---
Author Name Unknown Address Unknown Organization K01:LABORATORY [facility] [place] - [address] [place] [address] Laboratory Report Ordering Provider Test Date Status ALYSHA HENRY 08/13/2024 04:32:00 Final Observation Date Value Abnormality Reference (Units ) Status WBC, Total 08/13/2024 04:32:00 9.95 4.00-10.80 (K/uL) Final RBC 08/13/2024 04:32:00 2.48 4.50-5.25 (M/uL) Final Hemoglobin 08/13/2024 04:32:00 7.9 Below low normal 14.0-16.8 (g/dL) Final HCT 08/13/2024 04:32:00 24.3 Below low normal 40.0-48.4 (%) Final MCV 08/13/2024 04:32:00 98.0 82.0-99.5 (fL) Final MCH 08/13/2024 04:32:00 31.9 27.0-34.0 (pg) Final MCHC 08/13/2024 04:32:00 32.5 32.0-36.0 (g/dL) Final RDW 08/13/2024 04:32:00 17.3 11.5-15.5 (%) Final Platelets 08/13/2024 04:32:00 80 Below low normal 140-400 (K/uL) Final MPV 08/13/2024 04:32:00 13.3 6.6-11.1 (fL) Final Nucleated erythrocytes/100 leukocytes [Ratio] in Blood by Automated count 08/13/2024 04:32:00 0 <=0 (/100 WBCs) Final Performing Location [facility] - [address] [place] [id number]
--- OUTSIDE RECORDS SUMMARY | 2024-09-30 18:16 | External Medical Summary ---
Author Name Unknown Address Unknown Organization K01:LABORATORY [facility] [place] - [address] [place] [address] Laboratory Report Ordering Provider Test Date Status JAMES BARFIELD 08/10/2024 15:53:08 Final Warfarin Therapy
INR: 2 .0-3.0 conventional anticoagulation
INR: 2.5- 3.5 high intensity anticoagulation Observation Date Value Abnormality Reference (Units ) Status PT 08/10/2024 15:53:08 14.6 11.6-15.2 (seconds) Final INR 08/10/2024 15:53:08 1.1 0.8-1.2 Final Performing Location LABORATORY [facility] [place] - [address] [place] [address]
--- OUTSIDE RECORDS SUMMARY | 2024-09-30 18:16 | External Medical Summary ---
Author Name Unknown Address Unknown Organization [id number]:LABORATORY [facility] [place] - [address] [place] [address] Laboratory Report Ordering Provider Test Date Status ALYSHA HENRY 08/12/2024 12:20:01 Final Observation Date Value Abnormality Reference (Units ) Status WBC, Total 08/12/2024 12:20:01 10.25 4.00-10.80 (K/uL) Final RBC 08/12/2024 12:20:01 2.62 4.50-5.25 (M/uL) Final Hemoglobin 08/12/2024 12:20:01 8.2 Below low normal 14.0-16.8 (g/dL) Final HCT 08/12/2024 12:20:01 25.8 Below low normal 40.0-48.4 (%) Final MCV 08/12/2024 12:20:01 98.5 82.0-99.5 (fL) Final MCH 08/12/2024 12:20:01 31.3 27.0-34.0 (pg) Final MCHC 08/12/2024 12:20:01 31.8 32.0-36.0 (g/dL) Final RDW 08/12/2024 12:20:01 17.7 11.5-15.5 (%) Final Platelets 08/12/2024 12:20:01 59 Below low normal 140-400 (K/uL) Final MPV 08/12/2024 12:20:01 12.8 6.6-11.1 (fL) Final Nucleated erythrocytes/100 leukocytes [Ratio] in Blood by Automated count 08/12/2024 12:20:01 0 <=0 (/100 WBCs) Final Performing Location LABORATORY [facility] - [address] [place] [address]
--- OUTSIDE RECORDS SUMMARY | 2024-09-30 18:16 | External Medical Summary | Summary of Care ---
Author Name Unknown Organization [facility] Address [address] [place] [address] Phone [phone] Care Team Providers Care Chip Mixer Name Role Phone Fuentes Ashton MD Primary Care Provider [phone] Reason for Visit * Evaluate & Treat - Unlimited Visits (Within 30 days (routine)) - Authorized Specialty Diagnoses / Procedures Referred By Contac t Referred To Contact Radiology Diagnoses Nontraumatic hematoma of soft tissue Procedures US ABDOMEN LIMITED Dari Villegas CRNP [address] [place] [address] Referral ID Status Reason Start Date Expiration Date Visits Requested Visits Authorized [id number] Authorized Specialty Services Required 06/26/2024 10/08/2024 1 4 Encounter Details Date Type Department Care Team (Latest Contact Info) Description 08/09/2024 11:58 AM EDT - 08/09/2024 11:59 PM EDT Hospital Encounter Radiology, [address] [phone] Arrived Discharge Disposition: Home - Self Care Allergies Active Allergy Reactions Criticality Noted Date Comments Aztreonam Hives Medium 10/11/2019 Cephalosporins Rash 05/24/2017 Chlorhexidine Hives,Rash High 01/02/2022 Full body red rash; "skin peeled completely off" Ciprofloxacin Diarrhea Medium 01/28/2015 Iodinated Contrast Media Abdominal pain High 019 Acute kidney failure Levofloxacin Rash Low 07/28/2019 documented as of this encounter (statuses as of 08/10/2024) Medications Medication Sig Dispensed Refills Start Date [...] (PriLOSEC)Indicati ons:Gastroesophage al reflux disease without esophagitis,intermediate (current) use 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 Take by [...] C, by GOLD 2017 classification ([facility]) Inhale 1 Vial via nebulizer every 4 [...] 170 g 3 4 Suspended Additional Information Doxycycline Monohydrate 100 MG Oral Capsule Take 1 Capsule by mouth in the morning and 1 Capsule before bedtime. Do all this for 14 days. 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 [...] from 2019 Atherosclerotic heart diseas e of [place] coronary artery without angina pectoris 05/31/2020 CKD [...] as of this encounter (statuses as of 08/10/2024) Resolved Problems Problem Noted Date Diagnosed Date [...] chronic kidney disease 08/03/2023 08/03/2023 Atherosclerosis of [place] co ronary artery without angina pectoris 02/01/2023 [...] as of this encounter (statuses as of 08/10/2024) Immunizations Name Administration Dates Next Due COVID-19 mRNA, LNP-s, No Pre serve, 2-Dose Series (Theralogix) 08/15/2021,01/31/2021,01/03/2021 COVID-19, LNP-s, No Preserve , Ruslan-sucrose, Ages 12+ (Pfizer) 03/19/2022 COVID-19, MRNA-LNP, 23-24, P F, 30 MCG/0.3 mL, 12 YRS AND ABOVE, IM ([facility] 10/25/2023 Covid-19, Mrna, Lnp-s, Pf, B ivalent, 30 Mcg, IM, 12 yrs and above (Theralogix) 2022 Pneumococcal Conjugate Vacc, 13 Valent (Prevnar) 01/21/2016 Pneumococcal Conjugate Vacci ne, 20-valent (Paeogxy27) 07/19/2023 Pneumococcal Polysaccharide PPV23 (Pneumovax) 01/13/2011 RSV [...] have concerns for your saf ety? No 02/20/2024 Do you have concerns for you r family's safety? (Household - for ages 0-17 years) Not on file 02/20/2024 Utilities Answer Date Recorded Do you have trouble paying y our heating, water, or electric bill? No 03/18/2024 Is your family able to pay t he heat, water, or electric bill? (Household - for ages 0-17 years) Not on file 03/18/2024 Does your family have access to good internet? (Household - for ages 0-17 years) Not on file 03/18/2024 Employment Status Answer Date Recorded Are you [...] to medical visits or work? Never True 03/18/2024 Does your family have a hard time getting a ride to doctors visits? (Household - for ages 0-17 years) Not on file 03/18/2024 Has lack of transportation k ept you from medical appointments, meetings, work, or from getting things needed for daily living? Check all that apply. (Adult - for ages 18 years and over) Not on file 03/18/2024 Do you (or your family) have trouble finding or paying for a ride (transportation)? (Household - for ages 0-17 years) Not on file 03/18/2024 Housing Stability Answer Date Recorded Do you currently live in a s helter or have no steady place to sleep at night? No 03/18/2024 READ ONLY Do you think you a re at risk of becoming homeless? No 03/18/2024 Does your family worry about paying for your home or becoming homeless? (Household - for ages 0-17 years) Not on file 0 03/18/2024 Are you homeless or worried that you might be in the future? (Adult - for ages 18 years and over) Not on file Are you (or your family) spencer eless or worried that you might be in the future? (Household - for ages 0-17 years) Not on file Food Insecurity Answer Date Recorded Do you need food for this week? No 03/18/2024 Are you able to get enough f ood for your family? (Household - for ages 0-17 years) Not on file 03/18/2024 Does your family need food t his week? (Household - for ages 0-17 years) Not on file 03/18/2024 Do you always have enough fo od for your family? (Household - for ages 0-17 years) Not on file 03/18/2024 Sex and Gender Information Value Date Recorded [...] No 03/18/2024 documented as of this encounter Plan of Treatment Upcoming Encounters Date Type Department Care Team (Late st Contact Info) Description 08/21/2024 2:00 PM EDT Office Visit [facility] [address] [phone] Fuentes Ashton MD [address] [facility] [place] [place] [address] 08/31/2024 11:20 AM EDT Office Visit Nephrology, [facility] [address] [place] [address] Keisha Gunn MD [address] [place] [address] 11/14/2024 1:15 PM EST Office Visit [facility] [address] [facility] [place] [address] Supriya Fernandes MD [address] [place] [address] 12/21/2024 1:30 PM EST Office Visit Dermatology, [place] [address] [place] [address] [phone] Malaika Guzman PA-C [address] [place] [address] 01/22/2025 1:30 PM EDT PulmDiagnostic Pulmonary Function Lab [place] [address] [address] [address], [address] [place] [address] 01/22/2025 2:00 PM EDT Office Visit Pulmonary Medicine [place] [address] [phone] Dominguez Aguilar MD [address] [place] [address] 02/05/2025 10:00 AM EDT Office Visit Rheumatology, [facility] [address] [place] [address] Rafael Hernandez PA-C [address] [place] [address] 02/06/2025 1:30 PM EDT Office Visit Cardiology, [address] [phone] Cherry Warner PA-C [address] [place] [address] Pending Results Name Type Priority Associated Diagnoses Date /Time US ABDOMEN LIMITED Medical Imaging Routine Nontraumatic hematoma of soft tissue 08/09/2024 1:05 PM EDT Scheduled Orders Name Type Priority Associated Diagnoses Orde r Schedule US ABDOMEN LIMITED Medical Imaging Routine Nontraumatic hematoma of soft tissue 1 Occurrences starting 08/09/2024 until 08/09/2024 Scheduled Procedures Name Priority Associated Diagnoses Date/Ti me CERVICAL LYMPHADENECTOMY COMPLETE Squamous cell carcinoma of neck 08/10/2024 6:40 AM EDT EXCISION SOFT TISSUE NECK THORAX Squamous cell carcinoma of neck 08/10/2024 6:40 AM EDT FREE MUSCLE FLAP WITH MICROVASCULAR ANASTOMOSIS Squamous cell carcinoma of neck 08/10/2024 6:40 AM EDT COLONOSCOPY FLEXIBLE PROXIMA L DIAGNOSTIC Recall Diverticulosis [...] 01/31/2024, 110 12/2022, 05/18/2023, Additional history exists GFR 01/25/2025 07/28/2024, 02/2024, 06/09/2024, Additional history exists TSH 01/30/2025 01/31/2024, 01/07, 09/02/2022, Additional history exists Depression Screening 02/06/2025 02/07/2024 Albumin/Creatinine Ratio 03/27/2025 024, 01/31/2024, 05/18/2023, Additional history exists O2 ASSESSMENT COMPLETED IN PAST YEAR FOR COPD 08/10/2025 08/10/2024 DTap/Tdap Vaccines (4 - Td or Tdap) [...] this encounter Medical Devices Implanted Type Area Safety Physician Device Identifier Shelf Expiration Date Model / Serial / Lot Mesh Perfix Plug Lg [id number] - [id number] Implanted:Qty: 1 on 02/07/2019 by Jonathan Correia DO at OR [facility] Right: Groin CR BARD : DAVJOSE 09/04/2023 [id number] / / [id number] documented as of this encounter Visit Diagnoses Diagnosis Nontraumatic hematoma of soft tissue documented in this encounter Advance Directives Documents on File Type Date Recorded 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 Question Answer Comments Discussion of Advance Directives occurred with: Patient Does the patient have a Living Will? No Does the patient have Health Care Power of Attor particia? No Healthcare Agents on File Name Relationship Healthcare Agent Relationshi p Communication aKren Davis Spouse Health Care Repr esentative (appointed verbally by patient or by statute hierarchy) [facility] Adult Child Emergency Contact Care Teams Chip Mixer Relationship Specialty Start Date End Date Fuentes Ashton MD [address] [phone] PCP - General Family Medicine 01/30/22 documented as of this encounter
--- OUTSIDE RECORDS SUMMARY | 2024-09-30 18:16 | External Medical Summary ---
Author Name Unknown Address Unknown Organization [id number]:LABORATORY [facility] [place] - [address] [facility] [address] Laboratory Report Ordering Provider Test Date Status JAMES BARFIELD 08/11/2024 12:00:58 Final If R time > 20 minutes and n o clot formed suggesting hypocoagulable state or interfering substance (anticoagulation). Consider resubmitting a new sample and/or checking PT/INR, aPTT, fibrinogen, and platelet count. Observation Date Value Abnormality Reference (Units) Status Clot formation [Time] in Blood by Thromboelastography 08/11/2024 12:00:58 9.0 Above high normal 2.5-8.3 (minutes) Final Clot strength in Blood by Thromboelastography 08/11/2024 12:00:58 4.8 Above high normal 0.5-3.7 (minutes) Final Clot angle in Blood by Thromboelastography 08/11/2024 12:00:58 25.6 Below low normal 46.8-78.4 (degrees) Final Maximum clot firmness [Length] in Blood by Thromboelastography 08/11/2024 12:00:58 59.3 50.6-72.5 (mm) Final Coagulation index in Blood by Thromboelastography 08/11/2024 12:00:58 -6.2 Below low normal -3.0-3.0 Final Clot Lysis [Length fraction] in Blood by Thromboelastography --30 minutes post maximum clot amplitude 08/11/2024 12:00:58 0.0 0.0-7.5 (%) Final This is an appended report. These results have been appended to a previously preliminary verified report. Performing Location LABORATORY [facility] [place] - [address] [place] [address] [place] [address]
--- OUTSIDE RECORDS SUMMARY | 2024-09-30 18:16 | External Medical Summary ---
Author Name Unknown Address Unknown Organization K01:LAB[facility]ATORY [facility] [place] [address] [place] [address] [place] [address] Laboratory Report Ordering Provider Test Date Status JAMES BARFIELD 08/11/2024 12:00:58 Final Observation Date Value Abnormality Reference (Units ) Status Clot formation [Time] in Blood by Thromboelastography 08/11/2024 12:00:58 4.9 2.5-8.3 (minutes) Final Clot strength in Blood by Thromboelastography 08/11/2024 12:00:58 1.9 0.5-3.7 (minutes) Final Clot angle in Blood by Thromboelastography 08/11/2024 12:00:58 68.1 46.8-78.4 (degrees) Final Maximum clot firmness [Length] in Blood by Thromboelastography 08/11/2024 12:00:58 59.4 50.6-72.5 (mm) Final Coagulation index in Blood b y Thromboelastography 08/11/2024 12:00:58 0.7 -3.0-3.0 Final Clot Lysis [Length fraction] in Blood by Thromboelastography --30 minutes post maximum clot amplitude 08/11/2024 12:00:58 0.0 0.0-7.5 (%) Final This is an appended report. These results have been appended to a previously preliminary verified report. Performing Location LABORATORY [facility] [place] [address] [place] [address]
--- OUTSIDE RECORDS SUMMARY | 2024-09-30 18:16 | External Medical Summary ---
Author Name Unknown Address Unknown Organization K01:LABORATORY [facility] [place] - [address] [place] [address] Laboratory Report Ordering Provider Test Date Status ALYSHA HENRY 08/12/2024 17:24:00 Final Observation Date Value Abnormality Reference (Units ) Status WBC, Total 08/12/2024 17:24:00 11.92 Above high normal 4.00-10.80 (K/uL) Final RBC 08/12/2024 17:24:00 2.91 4.50-5.25 (M/uL) Final Hemoglobin 08/12/2024 17:24:00 9.2 Below low normal 14.0-16.8 (g/dL) Final HCT 08/12/2024 17:24:00 28.0 Below low normal 40.0-48.4 (%) Final MCV 08/12/2024 17:24:00 96.2 82.0-99.5 (fL) Final MCH 08/12/2024 17:24:00 31.6 27.0-34.0 (pg) Final MCHC 08/12/2024 17:24:00 32.9 32.0-36.0 (g/dL) Final RDW 08/12/2024 17:24:00 17.8 11.5-15.5 (%) Final Platelets 08/12/2024 17:24:00 59 Below low normal 140-400 (K/uL) Final MPV 08/12/2024 17:24:00 13.2 6.6-11.1 (fL) Final Nucleated erythrocytes/100 leukocytes [Ratio] in Blood by Automated count 08/12/2024 17:24:00 0 <=0 (/100 WBCs) Final Performing Location LABORATORY [facility] - [address] [place] [address]
--- OUTSIDE RECORDS SUMMARY | 2024-09-30 18:16 | External Medical Summary ---
Author Name Unknown Address Unknown Organization K01:LABORATORY [facility] - [address] [place] [address] Laboratory Report Ordering Provider Test Date Status JAMES BARFIELD 08/11/2024 05:08:36 Final Observation Date Value Abnormality Reference (Units ) Status Phosphate 08/11/2024 05:08:36 3.5 2.5-4.8 (m g/dL) Final Performing Location LABORATORY [facility] - [address] [place] [address]
--- OUTSIDE RECORDS SUMMARY | 2024-09-30 18:16 | External Medical Summary ---
Author Name Unknown Address Unknown Organization K01:[place] [facility] [address] [place] [address] Laboratory Report Ordering Provider Test Date Status JAMES BARFIELD 08/10/2024 16:41:53 Final Observation Date Value Abnormality Reference (Units ) Status Methicillin resistant Staphylococcus aureus (MRSA) DNA [Presence] in Nose by PENG with probe detection 08/10/2024 16:41:53 Negative Negative Final No Methicillin resistant Sta phylococcus aureus detected by PCR (amplified probe). Performing Location LABORATORY [facility] - [address] [place] [address]
--- OUTSIDE RECORDS SUMMARY | 2024-09-30 18:16 | External Medical Summary ---
Author Name Unknown Address Unknown Organization K01:LAB[facility]ATORY [facility] [place] [facility] [address] [place] [address] Laboratory Report Ordering Provider Test Date Status ALYSHA HENRY 08/10/2024 23:06:32 Final Observation Date Value Abnormality Reference (Units) Status Clot formation [Time] in Blood by Thromboelastography 08/10/2024 23:06:32 5.2 2.5-8.3 (minutes) Final Clot strength in Blood by Thromboelastography 08/10/2024 23:06:32 1.2 0.5-3.7 (minutes) Final Clot angle in Blood by Thromboelastography 08/10/2024 23:06:32 54.3 46.8-78.4 (degrees) Final Maximum clot firmness [Length] in Blood by Thromboelastography 08/10/2024 23:06:32 72.8 Above high normal 50.6-72.5 (mm) Final Coagulation index in Blood by Thromboelastography 08/10/2024 23:06:32 1.4 -3.0-3.0 Final Clot Lysis [Length fraction] in Blood by Thromboelastography --30 minutes post maximum clot amplitude 08/10/2024 23:06:32 0.0 0.0-7.5 (%) Final Performing Location LABORATORY [facility] [place] - [facility] [place] [address]
--- OUTSIDE RECORDS SUMMARY | 2024-09-30 18:16 | External Medical Summary ---
Author Name Unknown Address Unknown Organization K01:LABORATORY [facility] [place] [address] [place] [address] [place] [address] Laboratory Report Ordering Provider Test Date Status NASIM GRIER 08/11/2024 08:54:27 Patricia l Post transfusion cbc Observation Date Value Abnormality Reference (Units ) Status WBC, Total 08/11/2024 08:54:27 12.49 Above high normal 4.00-10.80 (K/uL) Final RBC 08/11/2024 08:54:27 1.89 4.50-5.25 (M/uL) Final Hemoglobin 08/11/2024 08:54:27 6.1 Below low normal 14.0-16.8 (g/dL) Final HCT 08/11/2024 08:54:27 19.9 Below low normal 40.0-48.4 (%) Final MCV 08/11/2024 08:54:27 105.3 82.0-99.5 (fL) Final MCH 08/11/2024 08:54:27 32.3 27.0-34.0 (pg) Final MCHC 08/11/2024 08:54:27 30.7 32.0-36.0 (g/dL) Final RDW 08/11/2024 08:54:27 14.4 11.5-15.5 (%) Final Platelets 08/11/2024 08:54:27 58 Below low normal 140-400 (K/uL) Final MPV 08/11/2024 08:54:27 13.2 6.6-11.1 (fL) Final Nucleated erythrocytes/100 leukocytes [Ratio] in Blood by Automated count 08/11/2024 08:54:27 0 <=0 (/100 WBCs) Final Performing Location LABORATORY [facility] [place] - [address] [place] [address]
--- OUTSIDE RECORDS SUMMARY | 2024-09-30 18:16 | External Medical Summary ---
Author Name Unknown Address Unknown Organization K01:[place] [facility] [place] [address] [place] [address] Laboratory Report Ordering Provider Test Date Status ALYSHA HENRY 08/10/2024 23:30:00 Final Observation Date Value Abnormality Reference (Units ) Status Bacteria identified in Specimen by Culture 08/10/2024 23:30:00 No growth Final Test: Culture, Blood (Site 2)
Specimen Source: Blood, Venous
Specimen Type: Blood
Specimen Date: 08/10/20242329
Result Date: 08/16/2024 0001
Result Status: Final result
Resulting Lab: LABORATORY [facility] [place]
[address]
[place] [address]

CULTURE

No growth

null Performing Location LABORATORY [facility] [place] [address] [place] [address]
--- OUTSIDE RECORDS SUMMARY | 2024-09-30 18:16 | External Medical Summary ---
Author Name Unknown Address Unknown Organization K01:LABORATORY [facility] [place] - [address] [place] [address] Laboratory Report Ordering Provider Test Date Status ALYSHA HENRY 08/10/2024 23:01:49 Final Observation Date Value Abnormality Reference (Units) Status Bacteria identified in Specimen by Culture 08/10/2024 23:01:49 No significant growth Final Test: Culture, Urine, Quanti tative
Specimen Source: Urine, Catheter
Specimen Type: Urine
Specimen Date: 08/10/2024 2301
Result Date: 08/12/2024 0737
Result Status: Final result
Resulting Lab: LABORATORY [facility] [place]
[address]
[place] [address]

CULTURE

No significant growth

null Performing Location LABORATORY [facility] [place] - [address] [facility] [address]
--- OUTSIDE RECORDS SUMMARY | 2024-09-30 18:16 | External Medical Summary ---
Author Name Unknown Address Unknown Organization K01:[place] [facility] [place] [address] [place] [address] [place] [address] Laboratory Report Ordering Provider Test Date Status JAMES BARFIELD 08/10/2024 15:53:08 Final Observation Date Value Abnormality Reference (Units ) Status WBC, Total 08/10/2024 15:53:08 8.38 4.00-10.80 (K/uL) Final RBC 08/10/2024 15:53:08 2.85 4.50-5.25 (M/uL) Final Hemoglobin 08/10/2024 15:53:08 9.4 Below low normal 14.0-16.8 (g/dL) Final HCT 08/10/2024 15:53:08 30.0 Below low normal 40.0-48.4 (%) Final MCV 08/10/2024 15:53:08 105.3 82.0-99.5 (fL) Final MCH 08/10/2024 15:53:08 33.0 27.0-34.0 (pg) Final MCHC 08/10/2024 15:53:08 31.3 32.0-36.0 (g/dL) Final RDW 08/10/2024 15:53:08 13.9 11.5-15.5 (%) Final Platelets 08/10/2024 15:53:08 90 Below low normal 140-400 (K/uL) Final MPV 08/10/2024 15:53:08 13.7 6.6-11.1 (fL) Final Nucleated erythrocytes/100 leukocytes [Ratio] in Blood by Automated count 08/10/2024 15:53:08 0 <=0 (/100 WBCs) Final Performing Location LAB[facility]ORY [facility] - [address] [place] [address]
--- OUTSIDE RECORDS SUMMARY | 2024-09-30 18:16 | External Medical Summary | Summary of Care ---
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 Name Role Phone Fuentes Ashton MD Primary Care Provider [phone] Encounter Details Date Type Department Care Team (Late st Contact Info) Description 08/11/2024 Population Health External Data Unspecified Department Allergies Active Allergy Reactions Criticality Noted Date Comments Aztreonam Hives Medium 10/11/2019 Cephalosporins Rash 05/24/2017 Chlorhexidine Hives,Rash High 01/02/2022 Full body red rash; "skin peeled completely off" Ciprofloxacin Diarrhea Medium 01/28/2015 Iodinated Contrast Media Abdominal pain High 019 Acute kidney failure Levofloxacin Rash Low 07/28/2019 documented as of this encounter (statuses as of 08/11/2024) Medications Medication Sig Dispensed Refills Start Date [...] Powder Breath ActivatedIndicatio ns:COPD, moderate ([facility]) Inhale 2 Puffs by mouth every 4 hours as needed for Shortness of Breath. 1 Each 11 4 Suspended Additional Information Albuterol Sulfate (2.5 MG/3ML) 0.083% Inhalation Nebulization Solution (Proventil)Indicat ions:COPD, group C, by GOLD 2017 classification ([facility]) Inhale 1 Vial via nebulizer every 4 hours as needed for Shortness of Breath or Wheezing. 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 CKD (chronic kidney disease) stage 4, GFR 15-29 ml/min 07/17/2019 Chronic anticoagulation 04/03/2019 Vitamin D deficiency 11/17/2018 Senile osteoporosis 09/06/2018 Paroxysmal atrial fibrillation 07/08/2018 Last Assessment & Plan: Rate controlled on metoprolol Continue apixaban History of acute tubular necrosis 06/29/2018 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 IPMN (intraductal papillary mucinous neoplasm) 0 03/09/2018 Overview: 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 Steroid-induced diabetes [...] as of this encounter (statuses as of 08/11/2024) Resolved Problems Problem Noted Date Diagnosed Date [...] chronic kidney disease 08/03/2023 08/03/2023 Atherosclerosis of [place] co ronary artery without angina pectoris 02/01/2023 [...] PL and AMP Hypertensive heart disease w [facility] heart failure and stage 3 [...] as of this encounter (statuses as of 08/11/2024) Immunizations Name Administration Dates Next Due COVID-19 mRNA, LNP-s, No Pre serve, 2-Dose Series ([employer]) 08/15/2021,01/31/2021,01/03/2021 COVID-19, LNP-s, No Preserve , Ruslan-sucrose, Ages 12+ ([employer]) 03/19/2022 COVID-19, MRNA-LNP, 23-24, P F, 30 MCG/0.3 mL, 12 YRS AND ABOVE, IM ([facility]) 10/25/2023 Covid-19, Mrna, Lnp-s, Pf, B ivalent, 30 Mcg, IM, 12 yrs and above ([employer]) 2022 Pneumococcal Conjugate Vacc, 13 Valent (Prevnar) 01/21/2016 Pneumococcal Conjugate Vacci ne, 20-valent ([id number]) 07/19/2023 Pneumococcal Polysaccharide PPV23 (Pneumovax) 01/13/2011 RSV [...] have concerns for your saf ety? No 08/10/2024 Do you have concerns for you r family's safety? (Household - for ages 0-17 years) Not on file 08/10/2024 Utilities Answer Date Recorded Do you have trouble paying y our heating, water, or electric bill? No 08/10/2024 Is your family able to pay t he heat, water, or electric bill? (Household - for ages 0-17 years) Not on file 08/10/2024 Does your family have access to good internet? (Household - for ages 0-17 years) Not on file 08/10/2024 Employment Status Answer Date Recorded Are you [...] to medical visits or work? Never True 08/10/2024 Does your family have a hard time getting a ride to doctors visits? (Household - for ages 0-17 years) Not on file 08/10/2024 Has lack of transportation k ept you from medical appointments, meetings, work, or from getting things needed for daily living? Check all that apply. No 08/10/2024 Do you (or your family) have trouble finding or paying for a ride (transportation)? (Household - for ages 0-17 years) Not on file 08/10/2024 Housing Stability Answer Date Recorded Do you currently live in a s helter or have no steady place to sleep at night? No 08/10/2024 READ ONLY Do you think you a re at risk of becoming homeless? No 08/10/2024 Does your family worry about paying for your home or becoming homeless? (Household - for ages 0-17 years) Not on file 1 Are you homeless or worried that you might be in the future? No 08/10/2024 Are you (or your family) spencer eless or worried that you might be in the future? (Household - for ages 0-17 years) Not on file Food Insecurity Answer Date Recorded Do you need food for this week? No 08/10/2024 Are you able to get enough f ood for your family? (Household - for ages 0-17 years) Not on file 08/10/2024 Does your family need food t his week? (Household - for ages 0-17 years) Not on file 08/10/2024 Do you always have enough fo od for your family? (Household - for ages 0-17 years) Not on file 08/10/2024 Sex and Gender Information Value Date Recorded [...] you have serious difficulty h earing? No 08/10/2024 Are you blind or do you have serious difficulty seeing, even when wearing glasses? No 08/10/2024 Do you have serious difficul ty walking or climbing stairs? (5 years old or older) No 08/10/2024 Do you have difficulty dress ing or bathing? (5 years old or older) No 08/10/2024 Because of a physical, menta l, or emotional condition, do you have difficulty doing errands alone such as visiting a doctor s office or shopping? (15 years old or older) No 08/10/20 Cognitive Status Response Date of Assessm ent Because of a physical, menta l, or emotional condition, do you have serious difficulty concentrating, remembering, or making decisions? (5 years old or older) No 08/10/2024 documented as of this encounter Plan of Treatment Upcoming Encounters Date Type Department Care Team (Late st Contact Info) Description 08/21/2024 2:00 PM EDT Office Visit [facility] [place] [phone] Fuentes Ashton MD [address] [place] [phone] 08/31/2024 11:20 AM EDT Office Visit Nephrology, [address] [place] [address] Keisha Gunn MD [address] [place] [address] 11/14/2024 1:15 PM EST Office Visit [facility] [address] [place], [place] [address] Supriya Fernandes MD [address] [place] [address] 12/21/2024 1:30 PM EST Office Visit Dermatology, [address] [place] [address] Malaika Guzman PA-C [address] [place] [address] 01/22/2025 1:30 PM EDT PulmDiagnostic Pulmonary Function Lab [facility] [address] [place] [address] [place], [address] [facility] [place] [address] 01/22/2025 2:00 PM EDT [facility] [address] [place] [phone] Dominguez Aguilar MD [address] [facility] [place] [address] 02/05/2025 10:00 AM EDT Office Visit Rheumatology, [address], [place] [address] Rafael Hernandez PAJackiC [address] [place] [address] [place], [place] [address] 02/06/2025 1:30 PM EDT Office [address] Cardiology, [address] [address] Cherry Warner PA-C [address] [address] Scheduled Procedures Name Priority Associated Diagnoses Date/Ti [...] history exists Depression Screening 02/06/2025 02/07/2024 GFR 02/09/2025 08/11/2024, 1001/2024, 07/28/2024, Additional history exists Albumin/Creatinine Ratio 03/27/2025 024, [...] this encounter Medical Devices Implanted Type Area Genomics Scientist Device Identifier Shelf Expiration Date Model / Serial / Lot Mesh Perfix Plug Lg [id number] - [id number] Implanted:Qty : 1 on 02/07/2019 by Jonathan Correia DO at OR [facility] Right: Groin CR BARD : DAVOL 09/04/2023 [id number] / / [id number] Cytal Wndmtx 1lyr [id number](150 Units) - [id number] - [id number] Implanted:Qty : 1 on 08/10/2024 by Lexie Aldridge MD at [place] [facility] Left: Leg Upper [employer] [id number] 10/07/2025 [id number] / [id number] / [id number] Cytal Wndmtx 1lyr 7x10cm (70 Units) - [id number] - [id number] Implanted:Qty : 1 on 08/10/2024 by Lexie Aldridge MD at [place] [facility] Left: Leg Upper [employer] [id number] 01/05/2026 [id number] / [id number] / [id number] documented as of this encounter Advance Directives Documents on File Type Date Recorded 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
--- OUTSIDE RECORDS SUMMARY | 2024-09-30 18:16 | External Medical Summary ---
Author Name Unknown Address Unknown Organization [id number]:LABORATORY [facility] [place] - [address] [place] [address] Laboratory Report Ordering Provider Test Date Status JAMES BARFIELD 08/13/2024 04:32:00 Final Observation Date Value Abnormality Reference (Units ) Status BUN 08/13/2024 04:32:00 54 Above high normal 6-20 (mg/dL) Final Creatinine 08/13/2024 04:32:00 2.9 Above high normal 0.6-1.2 (mg/dL) Final Glomerular filtration rate/1.73 sq M.predicted [Volume Rate/Area] in Serum, Plasma or Blood by Creatinine-based formula (CKD-EPI) 08/13/2024 04:32:00 22 Below low normal >=60 (mL/min) Final eGFR is calculated based on the CKD-EPI 2020 equation. Sodium 08/13/2024 04:32:00 138 135-146 (m mol/L) Final Potassium 08/13/2024 04:32:00 4.5 3.5-5.1 (m mol/L) Final Cl 08/13/2024 04:32:00 109 Above high normal 98 -107 (mmol/L) Final CO2 08/13/2024 04:32:00 20 Below low normal 22- 32 (mmol/L) Final Anion gap 08/13/2024 04:32:00 9 7-15 (mmol /L) Final Glucose 08/13/2024 04:32:00 94 70-120 (mg /dL) Final Calcium 08/13/2024 04:32:00 8.8 8.4-10.2 ( mg/dL) Final Performing Location LABORATORY [facility] - [address] [place] [address]
--- OUTSIDE RECORDS SUMMARY | 2024-09-30 18:16 | External Medical Summary ---
Author Name Unknown Address Unknown Organization [id number]:[facility]ATORY [facility] - [address] [place] [address] Laboratory Report Ordering Provider Test Date Status ABAD AMATO 08/12/2024 05:32:07 Final Observation Date Value Abnormality Reference (Units ) Status Phosphate 08/12/2024 05:32:07 3.9 2.5-4.8 (m g/dL) Final Performing Location [facility] - [address] [place] [address]
--- OUTSIDE RECORDS SUMMARY | 2024-09-30 18:16 | External Medical Summary ---
Author Name Unknown Address Unknown Organization [id number]:LABORATORY [facility] [place] - [address] [place] [address] Laboratory Report Ordering Provider Test Date Status ALYSHA HENRY 08/11/2024 02:06:24 Final Observation Date Value Abnormality Reference (Units ) Status Lactic Acid 08/11/2024 02:06:24 2.2 Above high normal 0.4-2.0 (mmol/L) Final Performing Location LABORATORY C - [address] [place] [address]
--- OUTSIDE RECORDS SUMMARY | 2024-09-30 18:16 | External Medical Summary ---
Author Name Unknown Address Unknown Organization [id number]:[facility]ORY [facility] [place] - [address] [facility] [address] Laboratory Report Ordering Provider Test Date Status NASIM GRIER 08/13/2024 07:17:00 Patricia l Observation Date Value Abnormality Reference (Units ) Status WBC, Total 08/13/2024 07:17:00 12.82 Above high normal 4.00-10.80 (K/uL) Final RBC 08/13/2024 07:17:00 2.51 4.50-5.25 (M/uL) Final Hemoglobin 08/13/2024 07:17:00 7.9 Below low normal 14.0-16.8 (g/dL) Final HCT 08/13/2024 07:17:00 24.3 Below low normal 40.0-48.4 (%) Final MCV 08/13/2024 07:17:00 96.8 82.0-99.5 (fL) Final MCH 08/13/2024 07:17:00 31.5 27.0-34.0 (pg) Final MCHC 08/13/2024 07:17:00 32.5 32.0-36.0 (g/dL) Final RDW 08/13/2024 07:17:00 17.6 11.5-15.5 (%) Final Platelets 08/13/2024 07:17:00 81 Below low normal 140-400 (K/uL) Final MPV 08/13/2024 07:17:00 12.8 6.6-11.1 (fL) Final Nucleated erythrocytes/100 leukocytes [Ratio] in Blood by Automated count 08/13/2024 07:17:00 0 <=0 (/100 WBCs) Final Performing Location LABORATORY C - [address] [place] [address]
--- OUTSIDE RECORDS SUMMARY | 2024-09-30 18:16 | External Medical Summary ---
Author Name Unknown Address Unknown Organization K01:[facility]ORY [facility] - [address] [place] [address] Laboratory Report Ordering Provider Test Date Status JAMES BARFIELD 08/11/2024 05:08:36 Final Observation Date Value Abnormality Reference (Units ) Status Magnesium 08/11/2024 05:08:36 1.4 Below low normal 1.5 -2.6 (mg/dL) Final Performing Location [facility] - [address] [place] [address]
--- OUTSIDE RECORDS SUMMARY | 2024-09-30 18:16 | External Medical Summary ---
Author Name Unknown Address Unknown Organization K01:LABORATORY [facility] [place] - [address] [place] [address] Laboratory Report Ordering Provider Test Date Status JAMES BARFIELD 08/12/2024 05:47:24 Final If R time > 20 minutes and n o clot formed suggesting hypocoagulable state or interfering substance (anticoagulation). Consider resubmitting a new sample and/or checking PT/INR, aPTT, fibrinogen, and platelet count. Observation Date Value Abnormality Reference (Units ) Status Clot formation [Time] in Blood by Thromboelastography 08/12/2024 05:47:24 6.1 2.5-8.3 (minutes) Final Clot strength in Blood by Thromboelastography 08/12/2024 05:47:24 1.9 0.5-3.7 (minutes) Final Clot angle in Blood by Thromboelastography 08/12/2024 05:47:24 64.3 46.8-78.4 (degrees) Final Maximum clot firmness [Length] in Blood by Thromboelastography 08/12/2024 05:47:24 65.0 50.6-72.5 (mm) Final Coagulation index in Blood b y Thromboelastography 08/12/2024 05:47:24 0.4 -3.0-3.0 Final Clot Lysis [Length fraction] in Blood by Thromboelastography --30 minutes post maximum clot amplitude 08/12/2024 05:47:24 0.0 0.0-7.5 (%) Final This is an appended report. These results have been appended to a previously preliminary verified report. Performing Location LABORATORY [facility] - [address] [place] [address] [place] [address]
--- OUTSIDE RECORDS SUMMARY | 2024-09-30 18:16 | External Medical Summary ---
Author Name Unknown Address Unknown Organization K01:LABORATORY [facility] [place] - [address] [place] [address] Laboratory Report Ordering Provider Test Date Status JAMES BARFIELD 08/12/2024 05:32:07 Final Warfarin Therapy
INR: 2 .0-3.0 conventional anticoagulation
INR: 2.5- 3.5 high intensity anticoagulation Observation Date Value Abnormality Reference (Units ) Status PT 08/12/2024 05:32:07 15.7 Above high normal 11 .6-15.2 (seconds) Final INR 08/12/2024 05:32:07 1.2 0.8-1.2 Final Performing Location LABORATORY [facility] - [address] [place] [address]
--- OUTSIDE RECORDS SUMMARY | 2024-09-30 18:16 | External Medical Summary ---
Author Name Unknown Address Unknown Organization K01:LABORATORY [facility] [place] - [address] [place] [address] Laboratory Report Ordering Provider Test Date Status JAMES BARFIELD 08/12/2024 05:47:24 Final Observation Date Value Abnormality Reference (Units ) Status Clot formation [Time] in Blood by Thromboelastography 08/12/2024 05:47:24 5.9 2.5-8.3 (minutes) Final Clot strength in Blood by Thromboelastography 08/12/2024 05:47:24 1.7 0.5-3.7 (minutes) Final Clot angle in Blood by Thromboelastography 08/12/2024 05:47:24 66.0 46.8-78.4 (degrees) Final Maximum clot firmness [Length] in Blood by Thromboelastography 08/12/2024 05:47:24 65.4 50.6-72.5 (mm) Final Coagulation index in Blood b y Thromboelastography 08/12/2024 05:47:24 0.7 -3.0-3.0 Final Clot Lysis [Length fraction] in Blood by Thromboelastography --30 minutes post maximum clot amplitude 08/12/2024 05:47:24 0.0 0.0-7.5 (%) Final This is an appended report. These results have been appended to a previously preliminary verified report. Performing Location LABORATORY [facility] [place] - [address] [place] [address] [place] [address]
--- OUTSIDE RECORDS SUMMARY | 2024-09-30 18:16 | External Medical Summary ---
Author Name Unknown Address Unknown Organization K01:[facility]ORY [facility] [place] - [address] [place] [address] Laboratory Report Ordering Provider Test Date Status ALYSHA HENRY 08/12/2024 00:06:49 Final Observation Date Value Abnormality Reference (Units ) Status WBC, Total 08/12/2024 00:06:49 8.78 4.00-10.80 (K/uL) Final RBC 08/12/2024 00:06:49 2.05 4.50-5.25 (M/uL) Final Hemoglobin 08/12/2024 00:06:49 6.5 Below low normal 14.0-16.8 (g/dL) Final HCT 08/12/2024 00:06:49 20.1 Below low normal 40.0-48.4 (%) Final MCV 08/12/2024 00:06:49 98.0 82.0-99.5 (fL) Final MCH 08/12/2024 00:06:49 31.7 27.0-34.0 (pg) Final MCHC 08/12/2024 00:06:49 32.3 32.0-36.0 (g/dL) Final RDW 08/12/2024 00:06:49 17.9 11.5-15.5 (%) Final Platelets 08/12/2024 00:06:49 50 Below low normal 140-400 (K/uL) Final MPV 08/12/2024 00:06:49 12.5 6.6-11.1 (fL) Final Nucleated erythrocytes/100 leukocytes [Ratio] in Blood by Automated count 08/12/2024 00:06:49 0 <=0 (/100 WBCs) Final Performing Location [facility] - [address] [place] [address]
--- OUTSIDE RECORDS SUMMARY | 2024-09-30 18:17 | External Medical Summary ---
Author Name Unknown Address Unknown Organization : Laboratory Report Ordering Provider Test Date Status ABAD AMATO 08/10/2024 12:31:20 Final Observation Date Value Abnormality Reference (Units ) Status Glucose Point of Care 08/10/2024 12:31:20 175 Above high normal 70-120 (mg/dL) Final Performing Location
--- OUTSIDE RECORDS SUMMARY | 2024-09-30 18:17 | External Medical Summary | Summary of Care ---
Author Name Unknown Organization [facility] Address [address] [facility] [place] [place] [address] Phone [phone] Care Team Providers Care Sales Driver Name Role Phone Fuentes Ashton MD Primary Care Provider [phone] Reason for Visit * Reason Onset Date Comments Advice 07/26/2024 Encounter Details Date Type Department Care Team (Late st Contact Info) Description 07/26/2024 Telephone Cardiology, [place] [address] [place] [phone] Harmony Paez PA-C [address] [facility] [place] [phone] Advice Allergies Active Allergy Reactions Criticality Noted Date Comments Aztreonam Hives Medium 10/11/2019 Cephalosporins Rash 05/24/2017 Chlorhexidine Hives,Rash High 01/02/2022 Full body red rash; "skin peeled completely off" Ciprofloxacin Diarrhea Medium 01/28/2015 Iodinated Contrast Media Abdominal pain High 019 Acute kidney failure Levofloxacin Rash Low 07/28/2019 documented as of this encounter (statuses as of 08/04/2024) Medications Medication Sig Dispensed Refills Start Date [...] Tablet before bedtime. 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 30 minutes before a meal. 30 Capsule 2 Active Vitamin B 12 500 MCG Oral Tablet Take by mouth 1 Tablet daily . Active Atorvastatin Calcium 20 MG Oral Tablet [...] of Breath. 1 Each 11 4 Active Albuterol Sulfate (2.5 MG/3ML) 0.083% Inhalation [...] 6 weeks 170 g 3 4 Active Doxycycline Monohydrate 100 MG Oral Capsule Take 1 Capsule by mouth in the morning and 1 Capsule before bedtime. Do all this for 7 days. 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 IPMN (intraductal papillary mucinous neoplasm) 0 03/09/2018 Overview: MRI 02/23 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 Steroid-induced diabetes [...] as of this encounter (statuses as of 08/04/2024) Resolved Problems Problem Noted Date Diagnosed Date Resolved Date Acute respiratory failure with hypoxia 03/03/2024 03/03/2024 Fever 02/27/2024 03/03/2024 Acute gout of multiple sites 02/27/2024 03/03/2024 Type 2 diabetes mellitus without complication 02/07/20 02/07/2024 Hospital discharge follow-up 09/20/2023 03/03/2024 Scrotal irritation 09/12/2023 Bilateral cellulitis of lower leg 09/12/2023 03/03/2024 Acute on chronic anemia 09/11/2023 042 04/2024 Cellulitis 09/09/2023 03/03/2024 Encephalopathy acute 09/09/2023 023 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 08/03/2023 08/03/2023 Atherosclerosis of [place] co ronary artery without angina pectoris 02/01/2023 [...] PL and AMP Hypertensive heart disease w [facility] heart failure and stage 3 chronic [...] as of this encounter (statuses as of 08/04/2024) Immunizations Name Administration Dates Next Due COVID-19 mRNA, LNP-s, No Pre serve, 2-Dose Series ([employer]) 08/15/2021,01/31/2021,01/03/2021 COVID-19, LNP-s, No Preserve , Ruslan-sucrose, Ages 12+ (Pfizer) 03/19/2022 COVID-19, MRNA-LNP, 23-24, P F, 30 MCG/0.3 mL, 12 YRS AND ABOVE, IM ([facility]) 10/25/2023 Covid-19, Mrna, Lnp-s, Pf, B ivalent, 30 Mcg, IM, 12 yrs and above ([employer]) 2022 Pneumococcal Conjugate Vacc, 13 Valent (Prevnar) 01/21/2016 Pneumococcal Conjugate Vacci ne, 20-valent ([id number]) 07/19/2023 Pneumococcal Polysaccharide PPV23 (Pneumovax) 01/13/2011 RSV Vac., Bivalent, Perfusio n F, Pf,0.5 Ml (Abrysvo) 09/28/2023 Season Influenza, Quad, PF, Adjuvanted, 65+ Yrs, IM (FLUAD) 08/26/2020 Seasonal Influenza, PF, 6 M & above, IM , (FluLaval or Fluzone) 09/21/2018,09/28/2017 Seasonal Influenza, Quadriva lent Hd (Fluzone Hd) 08/30/2023,09/01/2021 Seasonal Influenza, Quadriva lent, No Preserve, IM 08/27/2016 Seasonal Influenza, Trivalen t, (IIV3), with Preserv, (Fluzone) 07/11/2015,10/18/2014 Seasonal Influenza, Trivalen t, Adjuvanted, 65+ YRS, [...] No 03/18/2024 documented as of this encounter Miscellaneous Notes * Telephone Encounter - Valentina Cortes OSA - 08/02/2024 8:07 AM EDT We will have to request additional OR time for flap case but will keep patient aware. OR on 08/08 isnot available anymore * Telephone Encounter - Harmony Paez PA-C - 08/01/2024 1:02 PM EDT Does patient need formal cardiac clearance? [id number] score of 4. May hold Eliquis 48 hours prior to procedure and resume once hemodynamically stable Harmony Paez PA-C * Telephone Encounter - Rehana Bautista OSA - 08/01/2024 11:35 AM EDT Person calling: Pablo [facility] Relationship to patient: provider Phone/Fax to return call: [place] in [place] to [place] [phone] Reason for call(brief): Eliquis hold Pharmacy: na Provider Name:Harmony Paez Detailed message to office:Patient now needs a procedure with ENT head and neck for reconstruction which will involve admission and general anesthesia. They have a date available for 08/08 but need toknow if he can hold the Eliquis that soon and for how long. Please advise. Thanks * Telephone Encounter - Supriya Fernandes MD - 07/28/2024 9:54 AM EDT Spoke with patient's . The bandage has remained dry but she reports he does have bruising on his neck and upper chest. Advised patient to get CBC drawn today. Eliquis is currently being held. Awaiting final recs from cardiology regarding holding/restarting Eliquis. Supriya Fernandes MD 07/28/2024 9:56 AM * Telephone Encounter - Cherry Warner PA-C - 07/26/2024 1:53 PM EDT Covering for Harmony Paez PA-C. If patient is having trouble with bleeding, may holdEliquis for 2 days then resume. Repeat CBC Wednesday. * Telephone Encounter - Teressa Shaffer OSA - 07/26/2024 9:26 AM EDT Person calling: Kaylie Relationship to patient: [facility] Phone/Fax to return call: [phone] Reason for call(brief): advice Pharmacy: N/A Provider Name:Harmony Paez Detailed message to office:Kaylie called requesting to speak to a nurse as she has questions in regards to this patient. Patient is in surgery currently for skin cancer which involves the muscle. Thereis a lot of bleeding. Dr. Fernandes wants to know if this patient can pause Eliquis for a short. time.I attempted to reach the nurse line but was unsuccessful. Please advise. documented in this encounter Plan of Treatment Upcoming Encounters Date Type Department Care Team (Latest Contact Info) Description 08/04/2024 2:00 PM EDT Office Visit [facility] Surgery [facility] [address] [place] [address] Supriya Fernandes MD [address] [place] [id number] 08/09/2024 12:30 PM EDT Appointment Radiology, [address] [address] 08/10/2024 7:30 AM EDT Hospital Encounter [facility], OPERATING ROOM [facility] [address] [place] [phone] Lexie Aldridge MD [address] [place], [place] [phone] 08/10/2024 7:30 AM EDT - 08/10/2024 4:58 PM EDT Surgery OR [facility], OPERATING ROOM [facility] [address] [place] [phone] Lexie Aldridge MD [address] [facility] [place] [address] CERVICAL LYMPHADENECTOMY COMPLETE 08/14/2024 11:00 AM EDT Office Visit Nephrology, [address] [phone] Keisha Gunn MD [address] [place] [address] 08/21/2024 2:00 PM EDT Office Visit [facility] [address] [place] [phone] Fuentes Ashton MD [address] [place] [address] 12/21/2024 1:30 PM EST [facility] [address] [facility] [address] [place], [place] [phone] Malaika Guzman PA-C [address] [place] [address] 01/22/2025 1:30 PM EDT PulmDiagnostic Pulmonary Function Lab [facility] [address] [facility] [place] [address] [address], [address] [facility] [place] [address] 01/22/2025 2:00 PM EDT Office Visit Pulmonary Medicine [facility] [address] [facility] [place] [phone] Dominguez Aguilar MD [address] [facility] [place] [address] 02/05/2025 10:00 AM EDT Office Visit Rheumatology, [address] [address] Rafael Hernandez PA-C [address] [employer] [place] [address] Scheduled Procedures Name Priority Associated Diagnoses Date/Ti me CERVICAL LYMPHADENECTOMY COMPLETE Squamous cell carcinoma of neck 08/10/2024 7:30 AM EDT EXCISION SOFT TISSUE NECK THORAX Squamous cell carcinoma of neck 08/10/2024 7:30 AM EDT FREE MUSCLE FLAP WITH MICROVASCULAR ANASTOMOSIS Squamous cell carcinoma of neck 08/10/2024 7:30 AM EDT COLONOSCOPY FLEXIBLE PROXIMA L DIAGNOSTIC [...] 08/02/2024 01/31/2024, 11/12/2022, 05/18/2023, Additional history exists GFR 01/25/2025 07/28/2024, 09/0 02/2024, 06/09/2024, Additional history exists TSH 01/30/2025 01/31/2024, 032 03/2024, 09/02/2022, Additional history exists Depression Screening 02/06/2025 02/07/2024 Albumin/Creatinine Ratio 03/27/2025 024, 01/31/2024, 05/18/2023, Additional history exists O2 ASSESSMENT COMPLETED IN PAST YEAR FOR COPD 06/13/2025 06/13/2024 DTap/Tdap Vaccines (4 - Td or Tdap) [...] this encounter Medical Devices Implanted Type Area Dietetic Aide Device Identifier Shelf Expiration Date Model / Serial / Lot Mesh Perfix Plug Lg [id number] - [id number] Implanted:Qty: 1 on 02/07/2019 by Jonathan Correia DO at OR [facility] Right: Groin CR BARD : DAVOL 09/04/2023 [id number] / / [id number] documented as of this encounter Visit Diagnoses Diagnosis Paroxysmal atrial fibrillation (HCC)- Primary Atrial fibrillation 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, face, and neck documented in this encounter Advance Directives Documents on File Type Date Recorded 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 Question Answer Comments Discussion of Advance Directives occurred with: Patient/Family Healthcare Agents on File Name Relationship Healthcare Agent Relationshi p Communication Karen Davis Spouse Health Care Repr esentative (appointed verbally by patient or by statute hierarchy) [facility] Adult Child Emergency Contact Care Teams Sales Driver Relationship Specialty Start Date End Date Fuentes Ashton MD [address] [place] [phone] PCP - General Family Medicine 01/30/22 documented as of this encounter
--- OUTSIDE RECORDS SUMMARY | 2024-09-30 18:17 | External Medical Summary | Summary of Care ---
Author Name Unknown Organization [facility] Address [address] [facility] [place] [address] Phone [phone] Care Team Providers Care Hand Crown Pouncer Name Role Phone Fuentes Ashton MD Primary Care Provider [phone] Reason for Visit * Reason Comments Pre-op Clearance # 4 Encounter Details Date Type Department Care Team (Late st Contact Info) Description 08/08/2024 8:00 AM EDT Office Visit Ahmet Garcia [address] [place] [place] [address] Cherry Warner PA-C [address] [facility] [place] [address] Preoperative cardiovascular examination*; Paroxysmal atrial fibrillation (HCC); Chronic heart failure with preserved ejection fraction (HCC); HTN, goal below 140/80; Dyslipidemia, goal LDL below 100 Allergies Active Allergy Reactions Criticality Noted Date Comments Aztreonam Hives Medium 10/11/2019 Cephalosporins Rash 05/24/2017 Chlorhexidine Hives,Rash High 01/02/2022 Full body red rash; "skin peeled completely off" Ciprofloxacin Diarrhea Medium 01/28/2015 Iodinated Contrast Media Abdominal pain High 019 Acute kidney failure Levofloxacin Rash Low 07/28/2019 documented as of this encounter (statuses as of 08/08/2024) Medications Medication Sig Dispensed Refills Start Date [...] Delayed Release (PriLOSEC)Indicatio ns:Gastroesophageal reflux disease without esophagitis,retirement (current) use 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 Take by mouth 1 Capsule in the morning. 30 minutes before a meal. 30 Capsule 01/05/2022 Active Vitamin B 12 500 MCG Oral [...] Shortness of Breath. 1 Each 07/06/2024 Active Albuterol Sulfate (2.5 MG/3ML) 0.083% [...] this for 14 days. 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 05/31/2020 CKD [...] as of this encounter (statuses as of 08/08/2024) Resolved Problems Problem Noted Date Diagnosed Date [...] chronic kidney disease 08/03/2023 08/03/2023 Atherosclerosis of koi co ronary artery without angina pectoris 02/01/2023 [...] as of this encounter (statuses as of 08/08/2024) Immunizations Name Administration Dates Next Due COVID-19 mRNA, LNP-s, No Pre serve, 2-Dose Series (SD Motiongraphiks) 08/15/2021,01/31/2021,01/03/2021 COVID-19, LNP-s, No Preserve , Ruslan-sucrose, Ages 12+ (SD Motiongraphiks) 03/19/2022 COVID-19, MRNA-LNP, 23-24, P F, 30 MCG/0.3 mL, 12 YRS AND ABOVE, IM (YOOWALK-Comirnaty) 10/25/2023 Covid-19, Mrna, Lnp-s, Pf, B ivalent, 30 Mcg, IM, 12 yrs and above (SD [employer]iks) 2022 Pneumococcal Conjugate Vacc, 13 Valent (Prevnar) 01/21/2016 Pneumococcal Conjugate Vacci ne, 20-valent ([id number]) 07/19/2023 Pneumococcal Polysaccharide PPV23 (Pneumovax) 01/13/2011 RSV [...] Sign Reading Time Taken Comments Blood Pressure 142/74 08/08/2024 7:55 AM EDT Pulse 63 08/08/2024 7:55 AM EDT Temperature - - Respiratory Rate - - Oxygen Saturation - - Inhaled Oxygen Concentration - - Weight 68.9 kg (152 lb) 08/08/2024 7:55 AM EDT Height 170.2 cm (5' 7") 08/08/2024 7:55 AM EDT Body Mass Index 23.81 08/08/2024 7:55 AM EDT documented in this encounter Functional [...] as of this encounter Progress Notes * Cherry Warner PA-C - 08/08/2024 8:00 AM EDT 08/07/2024 Cardiology Follow Up Past Medical History: 1. Paroxysmal atrial fibrillation 2. CKD stage IV -received dialysis x4 for ATN 12/2021. Has not required dialysis since then. 3. Hypertension 4. Prolonged admission 12/2021 admission for pneumonia, acute hypoxic resp failure with intubation 12/2021 5. Chronic anemia 6. HFpEF HPI: Kennedy Davis is a 78 year old male who presents for preoperative evaluation. He is scheduled for SCC excision and neck dissection with flap reconstruction [place]/10/24 [place] [facility] [place] general [place]. Presents today accompanied by . States he overall feels well. Denies chest pain, palpitations, shortness of breath, edema, PND, orthopnea, lightheadedness, syncope. Compliant with all medications. Active around house, works in [employer]. [facility] Walks on a regular basis with no exertional symptoms, inhaler has been helping breathing. Denies history of stroke, TIA, PE, DVT. No prior complications with anesthesia. REVIEW OF SYSTEMS: See HPI for pertinent positives. All others negative other than those noted in the HPI. CONSTITUTIONAL: No change in weight, No weakness, No fatigue and No fevers, No sweats or chills. PULMONARY: No cough, sputum, or hemoptysis, No wheezing, No shortness of breath and No recent change in breathing. CARDIOVASCULAR: No chest pain, No dyspnea on exertion, No edema, No palpitations and No syncope. GASTROINTESTINAL: No abdominal pain, No change in bowel habits, No significant heartburn, No nausea, No vomiting, No diarrhea, No constipation, No blood in stools or black tarry stools. No dysphagia. HEMATOLOGIC: No abnormal bleeding and No bruising. NEUROLOGICAL: Normal balance, No headaches and No weakness. Review of patient's allergies indicates: Allergen Reactions Chlorhexidine Hives and Rash Full body red rash; "skin peeled completely off" Iodinated Contrast Media Abdominal pain Acute kidney failure Azactam [Aztreonam] Hives Ciprofloxacin Diarrhea Cephalosporins Rash Levofloxacin Rash Current Outpatient Medications Medication Sig Dispense Refill [...] for Shortness of Breath. 1 Each 11 Albuterol Sulfate (2.5 MG/3ML) 0.083% Inhalation Nebulization Solution (Proventil) Inhale 1 Vial via nebulizer every 4 hours as needed for Shortness of Breath or Wheezing. 360 mL 11 Allopurinol 100 MG Oral Tablet (Zyloprim) Take 2 Tablets by mouth in the morning. 180 Tablet 4 Doxycycline Monohydrate 100 MG Oral Capsule Take 1 Capsule by mouth in the morning and 1 Capsule before bedtime. Do all this for 14 days. 28 Capsule 0 PredniSONE (DELTASONE) 20 MG Tablet Take 2 Tabs by mouth daily for 5 days. 10 Tab 0 PredniSONE (DELTASONE) 20 MG Tablet Take 2 Tabs by mouth daily for 7 days. 14 Tab 0 predniSONE 20 MG Oral Tablet (Deltasone) Take by mouth 2 Tablets in the morning for 5 days. 10 Tablet 0 Tylenol 325 MG Oral Capsule (Acetaminophen) Take by mouth 2 Tablets every 6 hours as needed for Pain, Mild or Other (Fever, Headache). 90 Capsule 0 Vitamin B 12 500 MCG Oral Tablet Take by mouth 1 Tablet daily . (Patient not taking: Reported on 08/08/2024) Econazole Nitrate 1 % External Cream (Spectazole) Apply to affected area on buttock, back and legs twice a day for 6 weeks 170 g 3 No current facility-administered medications for this visit. Past Medical History: Diagnosis Date Abdominal aortic aneurysm (AAA) without rupture ([facility]) 07/11/2015 09/01/16: 3.78cm - repeat 1 yr 01/27/16: US: 3.87cm AAA - repeat 6 months 07/11/15: sts he had an US in the past - will check records Acute pancreatitis 03/09/2018 LIZZ (acute kidney injury) ([facility]) 06/26/2018 Aspergillosis ([facility]) 07/17/2019 history of Aspergillosis on the note on 3.[address] and AMP ATN (acute tubular necrosis) ([facility]) Bilateral pneumonia 08/08/2019 Acute, resolved? 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 Community acquired pneumonia 05/30/2019 COPD (chronic obstructive pulmonary disease) ([facility]) Diet-controlled diabetes mellitus ([facility]) 03/03/2021 Encounter for long-term (current) use of medications 09/06/2018 Enteritis 10/09/2017 Erythema nodosum Esophageal reflux Heart failure with acute decompensation, type unknown ([facility]) 06/07/2019 Herpes zoster without mention of complication History of pneumonia 06/22/2018 B/l PNA 06/2018 Hyperkalemia 12/16/2021 Hypertensive heart disease with heart failure and stage 5 chronic kidney disease, not on chronic dialysis ([facility]) 08/22/2019 ckd 4 ? Hypoglycemia associated with type 2 diabetes mellitus ([facility]) 07/21/2019 Moderate protein-calorie malnutrition (HCC) 01/06/2021 Protein-calorie malnutrition (HCC) 06/23/2019 Pure hypercholesterolemia Sepsis (HCC) acute Severe malnutrition (HCC) 02/27/2018 Stage II pressure ulcer of left buttock (HCC) 02/06/2022 Tinea cruris 09/28/2017 Unspecified essential hypertension Uveitis OS Family History Problem Relation Name Age of Onset No Past Hx Mother at 97 Heart attack Father 84 Other (unknown cause of ) Sister Linda 90 Osteoporosis Sister Emmanuelle Renal Hx Sister Emmanuelle Osteoporosis Sister [place] Renal Hx Sister [place] Heart Disorder Brother Martin CAD started in [...] of children: 4 Years of education: 10 Occupational History 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 3 cats No mold Wood stove and oil heating Window air conditioner [place] water 10 months while in the service for asbestos exposure Second hand smoke exposure with family Social Determinants of Health Financial Resource Strain: Low Risk (01/31/2024) Financial Resource Strain Do you have any trouble paying for your medications, or do you think you might in the future? (Adult - for ages 18 years and over): No Food Insecurity: No Food Insecurity (03/18/2024) Food Insecurity Do you need food for this week? (Adult - for ages 18 years and over): No Transportation Needs: No Transportation Needs (03/18/2024) Transportation Needs Do you have trouble getting a ride to medical visits or work? (Adult - for ages 18 years and over):Never True Social Connections: Socially Integrated (01/31/2024) Social Connections How often do you feel lonely or isolated from those around you? (Adult - for ages 18 years and over): Never Housing Stability: Low Risk (03/18/2024) Housing Stability Do you currently live in a half-way or have no steady place to sleep at night? (Adult - for ages 18 years and over): No Do you think you are at risk of becoming homeless? (Adult - for ages 18 years and over): No OBJECTIVE/PHYSICAL EXAMINATION: BP 142/74 (BP Site: Left Arm, BP Position: Sitting, BP Cuff Size: Large) | Pulse 63 | Ht 1.702 m (5' 7") | Wt 68.9 kg (152 lb) | BMI 23.81 kg/m | BSA 1.8 m Wt Readings from Last 3 Encounters: 08/08/24 68.9 kg (152 lb) 08/02/24 68.4 kg (150 lb 11.2 oz) 07/17/24 68.5 kg (151 lb) General: No acute distress. A+Ox3. HEENT: Normocephalic. Atraumatic. PERRL. EOMI. Conjunctiva and sclera clear. NECK: No carotid bruits. No JVD. Carotid upstrokes are brisk. Heart: RRR. S1 and S2 noted. No murmur. No rubs or gallops. PMI non displaced. Lungs: Clear to auscultation. No wheezes. No rhonchi. No rales. Abdomen: Normal bowel sounds. Soft. Nontender. No masses or organomegaly. No abdominal bruits. Extremities: No edema. No clubbing or cyanosis. Pulses: radial=2/4, posterior tibial=2/4, dorsalis pedis = 2/4. NEURO: No focal deficits. PSYCH: Appropriate affect and insight. DATA Labs & Imaging Reviewed Below: EKG 08/08/24 Sinus bradycardia, 57 bpm Echo 09/09/23 The qualitative LV ejection fraction is 60-64% (normal). The right ventricular cavity size is qualitatively normal. The right ventricular systolic function is qualitatively normal. No significant valvular disease. ASSESSMENT/PLAN: 78 year old male 1. Paroxysmal atrial fibrillation (HCC) 2. Chronic heart failure with preserved ejection fraction (HCC) - feels well from cardiac standpoint, euvolemic on exam - continue apixaban 5 mg twice daily - continue metoprolol succinate 25 mg daily - continue furosemide 20 mg daily PRN for edema 3. HTN, goal below 140/80 - blood pressure controlled, continue to monitor 4. Dyslipidemia, goal LDL below 100 - last LDL 69 - continue atorvastatin 20 mg daily 5. Preoperative cardiovascular examination - he is asymptomatic and euvolemic on exam - planning to undergo [place] surgery [place] [facility] [place] - echo 09/2023 with normal LVEF, no valvular disease - active, no recent change in activity tolerance, can complete >4 METS, no further cardiac testing indicated - he is at moderate risk for perioperative events from cardiac standpoint - he may hold Eliquis 2 days prior to surgery (has already started hold), resume once hemostasis achieved and cleared by surgeon DISPOSITION: Follow up 6 months or sooner if symptoms worsen/fail to improve. All questions were answered to the patients satisfaction. Patient advised to report to ED with any and all emergencies. The patient agrees to the above plan and will call with additional questions or concerns. Cherry Warner PA-C Cardiology[address] [address] I spent a total of 35 minutes on the date of service in preparation, delivery, and documentation ofthe care provided to Kennedy Davis excluding any time spent in the performance of separately billedservices. This chart was completed in part utilizing [employer] Speech Voice Recognition Software. Grammatical errors, random word insertions, pronoun errors, and incomplete sentences are an occasional consequence of this system due to software limitations, ambient noise, and hardware issues. Any formal questions or concerns about the content, text, or information contained within the body of this dictation should be directly addressed to the provider for clarification. documented in this encounter Plan of Treatment Upcoming Encounters Date Type Department Care Team (Latest Contact Info) Description 08/09/2024 12:30 PM EDT Appointment Radiology, [address] [phone] 08/10/2024 7:30 AM EDT Hospital Encounter [place] [facility] OPER[place] RO[facility] [address] [place] [phone] Lexie Aldridge MD [address] [place], [place] [phone] 08/10/2024 7:30 AM EDT - 08/10/2024 4:58 PM EDT Surgery [place] [facility] [address] [place] [address] Lexie Aldridge MD [address] [place], [place] [id number] CERVICAL LYMPHADENECTOMY COMPLETE 08/14/2024 11:00 AM EDT Office Visit Nephrology, [address] [phone] Keisha Gunn MD [address] [place] [id number] 08/21/2024 2:00 PM EDT Office Visit Family [facility] [address] [place] [phone] Fuentes Ashton MD [address] [place] [address] 11/14/2024 1:15 PM EST Office Visit MOHS Surgery [facility] [address] [place] [address] Supriya Fernandes MD [address] [facility] [place] [address] 12/21/2024 1:30 PM EST Office Visit Dermatology, [facility] [place] [address] [place] [address] Malaika Guzman PA-C [address] [place] [address] 01/22/2025 1:30 PM EDT PulmDiagnostic Pulmonary Function Lab [facility] [address] [place] [address] [place], [address] [facility] [place] [address] 01/22/2025 2:00 PM EDT Office Visit Pulmonary Medicine Ph[facility] Magdaleno [place] [address] [place] [phone] Dominguez Aguilar MD [address] [facility] [place] [address] 02/05/2025 10:00 AM EDT Office Visit Rheumatology, [facility] [phone] Rafael Hernandez PA-C [address] [place] [address], [place] [address] 02/06/2025 1:30 PM EDT Office Visit Cardiology, [place] [address] [facility] [place] [address] Cherry Warner PA-C [facility] [address] Scheduled Orders Name Type Priority Associated Diagnoses Orde r Schedule EKG EKG Routine Preoperative cardiovascular examination Expected: 08/08/2024 (Approximate), Expires: 09/08/2025 Scheduled Procedures Name Priority Associated Diagnoses Date/Ti [...] 01/31/2024, 11/0 12/2022, 05/18/2023, Additional history exists GFR 01/25/2025 07/28/2024, 09/0 02/2024, 06/09/2024, Additional history exists TSH 01/30/2025 01/31/2024, 2 03/2024, 09/02/2022, Additional history exists Depression Screening [...] this encounter Medical Devices Implanted Type Area Ocular Care Aide Device Identifier Shelf Expiration Date Model / Serial / Lot Mesh Perfix Plug Lg [id number] - [id number] Implanted:Qty: 1 on 02/07/2019 by Jonathan Correia, at OR [facility] Right: Lelo KEBEDE BARD : MAREI 09/04/2023 [id number] / / [id number] documented as of this encounter Visit Diagnoses Diagnosis Preoperative cardiovascular examination- Primary Pre-operative cardiovascular examination Paroxysmal atrial fibrillation (HCC) Atrial fibrillation Chronic heart failure with preserved ejection fraction (HCC) HTN, goal below 140/80 Unspecified essential hypertension Dyslipidemia, goal LDL below 100 Other and unspecified hyperlipidemia 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, face, and neck documented in this encounter Advance Directives Documents on File Type Date Recorded 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
--- OUTSIDE RECORDS SUMMARY | 2024-09-30 18:17 | External Medical Summary | Summary of Care ---
Author Name Unknown Organization [facility] Address [address] [place] [address] Phone [phone] Care Team Providers Care Nuclear Medicine Physician Name Role Phone Fuentes Ashton MD Primary Care Provider [phone] Reason for Visit * Reason Comments Wound Recheck Pt here today for ac tive bleeding through bandage. Encounter Details Date Type Department Care Team (Late st Contact Info) Description 07/27/2024 4:00 PM EDT Office Visit [facility] Surgery [facility] [address] [place] [address] Supriya Fernandes MD [address] [place] [phone] Bleeding* Allergies Active Allergy Reactions Criticality Noted Date Comments Aztreonam Hives Medium 10/11/2019 Cephalosporins Rash 05/24/2017 Chlorhexidine Hives,Rash High 01/02/2022 Full body red rash; "skin peeled completely off" Ciprofloxacin Diarrhea Medium 01/28/2015 Iodinated Contrast Media Abdominal pain High 019 Acute kidney failure Levofloxacin Rash Low 07/28/2019 documented as of this encounter (statuses as of 08/06/2024) Medications Medication Sig Dispensed Refills Start Date [...] Release (PriLOSEC)Indicatio ns:Gastroesophageal reflux disease without esophagitis,[employer] (current) use 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 Take by [...] ons:COPD, group C, by GOLD 2017 classification ([place] [...] as of this encounter (statuses as of 08/06/2024) Active Problems Problem Noted Date Diagnosed Date [...] from 2018 Atherosclerotic heart diseas e of [place] coronary artery without angina pectoris 05/31/2020 CKD (chronic kidney disease) stage 4, GFR 15-29 ml/min 07/17/2019 Chronic anticoagulation 04/03/2019 Vitamin D deficiency 11/17/2018 Senile osteoporosis 09/06/2018 Paroxysmal atrial fibrillation 07/08/2018 Last Assessment & Plan: Rate controlled on metoprolol Continue apixaban History of acute tubular necrosis 06/29/2018 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 IPMN (intraductal papillary mucinous neoplasm) 0 03/09/2018 Overview: MRI 02/23 [employer] (current) use 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 Steroid-induced diabetes [...] as of this encounter (statuses as of 08/06/2024) Resolved Problems Problem Noted Date Diagnosed Date [...] chronic kidney disease 08/03/2023 08/03/2023 Atherosclerosis of [place] co ronary artery without angina pectoris 02/01/2023 [...] as of this encounter (statuses as of 08/06/2024) Immunizations Name Administration Dates Next Due COVID-19 mRNA, LNP-s, No Pre serve, 2-Dose Series ([email or web address]) 08/15/2021,01/31/2021,01/03/2021 COVID-19, LNP-s, No Preserve , Ruslan-sucrose, Ages 12+ ([email or web address]) 03/19/2022 COVID-19, MRNA-LNP, 23-24, P F, 30 MCG/0.3 mL, 12 YRS AND ABOVE, IM ([facility]) 10/25/2023 Covid-19, Mrna, Lnp-s, Pf, B ivalent, 30 Mcg, IM, 12 yrs and above ([email or web address]) 2022 Pneumococcal Conjugate Vacc, 13 Valent (Prevnar) 01/21/2016 Pneumococcal Conjugate Vacci ne, 20-valent ([id number]) 07/19/2023 Pneumococcal Polysaccharide PPV23 (Pneumovax) 01/13/2011 RSV [...] Progress Notes * Supriya Fernandes MD - 07/28/2024 4:49 AM EDT Patient returned with bleeding. Here today with and daughter. Per family, bandage fell off this morning and then patient bled through new bandage that they applied. Patient reports he feels welloverall. Denies pain. Minor oozing at inferior aspect of wound. Additional gel foam applied and wound rebandaged. Supriya Fernandes MD 07/27/2024 documented in this encounter Nursing Notes * Dari Donahue LPN - 07/27/2024 4:21 PM EDT Chief Complaint Patient presents with Wound Recheck Pt here today for active bleeding through bandage. Pt states he has no pain other than the tape to hold on the bandage. Pt's states she woke up and seen blood on Pt's pillow this morning. Bandage came off. New bandage applied on wound. documented in this encounter Plan of Treatment Upcoming Encounters Date Type Department Care Team (Latest Contact Info) Description 08/08/2024 8:00 AM EDT [facility] [address] [place] [address] Cherry Warner PA-C [address] [place] [address] 08/09/2024 12:30 PM EDT Appointment Radiology, [facility] [address] [place] [address] 08/10/2024 7:30 AM EDT Hospital Encounter [facility] [address] [place] [phone] Lexie Aldridge MD [address] [place], [place] [phone] 08/10/2024 7:30 AM EDT - 08/10/2024 4:58 PM EDT Surgery OR [facility] [address] [place] [facility] [place] [address] Lexie Aldridge MD [address] [place] [address] CERVICAL LYMPHADENECTOMY COMPLETE 08/14/2024 11:00 AM EDT Office Visit Nephrology, [facility] 400 [facility], [place] [address] Keisha Gunn MD 400 [facility] [place], [place] [phone] 08/21/2024 2:00 PM EDT Office Visit [facility] [phone] Fuentes Ashton MD [facility] [address] 11/14/2024 1:15 PM EST Office Visit [facility] 200 [place] [address] Supriya Fernandes MD [address] [place] [address] 12/21/2024 1:30 PM EST Office Visit Dermatology, [facility] [place] [address] [place], [place] [phone] Malaika Guzman PA-C [address] [place] [address] 01/22/2025 1:30 PM EDT Pulm[facility]ostic [facility] [place] [address] [place] [address] [address], [address] [facility] [place] [address] 01/22/2025 2:00 PM EDT Office Visit Pulmonary Medicine [place] [address] [place] [phone] Dominguez Aguilar MD [address] [place] [address] 02/05/2025 10:00 AM EDT Office Visit Rheumatology, [address] [place] [address] Rafael Hernandez PA-C [address] [facility] [place] [address] Scheduled Procedures Name Priority Associated Diagnoses Date/Ti [...] this encounter Medical Devices Implanted Type Area Hand Drawer In Helper Device Identifier Shelf Expiration Date Model / Serial / Lot Mesh Perfix Plug Lg [id number] - [id number] Implanted:Qty: 1 on 02/07/2019 by Jonathan Correia DO at OR [facility] Right: Groin CR BARD : DAVOL 09/04/2023 [id number] / / [id number] documented as of this encounter Visit Diagnoses Diagnosis Bleeding- Primary Hemorrhage, unspecified 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, face, and neck documented in this encounter Advance Directives Documents on File Type Date 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
--- OUTSIDE RECORDS SUMMARY | 2024-09-30 18:17 | External Medical Summary ---
Author Name Unknown Address Unknown Organization : Laboratory Report Ordering Provider Test Date Status ARELIS GARCIA 08/10/2024 06:51:28 Final Observation Date Value Abnormality Reference (Units ) Status Glucose Point of Care 08/10/2024 06:51:28 84 70-120 (mg/dL) Final Performing Location
--- OUTSIDE RECORDS SUMMARY | 2024-09-30 18:17 | External Medical Summary | Summary of Care ---
Author Name Unknown Organization [facility] Address [address] [facility] [place] [place] [address] Phone [phone] Care Team Providers Care Revenue Field Agent Name Role Phone Fuentes Ashton MD Primary Care Provider [phone] Reason for Visit * Reason Onset Date Comments Advice 07/26/2024 Encounter Details Date Type Department Care Team (Late st Contact Info) Description 07/26/2024 Telephone Cardiology, [place] [address] [place] [phone] Harmony Paez PA-C [address] [facility] [place] [phone] Advice Allergies Active Allergy Reactions Criticality Noted [...] Delayed Release (PriLOSEC)Indicatio ns:Gastroesophageal reflux disease without esophagitis,[facility] (current) use 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 Take by [...] Inhalation Aerosol Powder Breath ActivatedIndication s:COPD, moderate ([facility]) Inhale 2 Puffs by mouth every 4 hours as needed for Shortness of Breath. 1 Each 11 4 Active Albuterol Sulfate (2.5 MG/3ML) 0.083% Inhalation Nebulization Solution (Proventil)Indicati ons:COPD, group C, by GOLD 2017 classification ([facility]) Inhale 1 Vial via nebulizer every 4 [...] from 2018 Atherosclerotic heart diseas e of [place] coronary artery without angina pectoris 05/31/2020 CKD [...] chronic kidney disease 08/03/2023 08/03/2023 Atherosclerosis of [place] co ronary artery without angina pectoris 02/01/2023 [...] PL and AMP Hypertensive heart disease [facility] heart failure and stage 3 [...] mRNA, LNP-s, No Pre serve, 2-Dose Series ([employer]) 08/15/2021,01/31/2021,01/03/2021 COVID-19, LNP-s, No Preserve , Ruslan-sucrose, Ages 12+ (Pfizer) 03/19/2022 COVID-19, MRNA-LNP, 23-24, P F, 30 MCG/0.3 mL, 12 YRS AND ABOVE, IM ([facility]) 10/25/2023 Covid-19, Mrna, Lnp-s, Pf, B ivalent, 30 Mcg, IM, 12 yrs and above ([employer]) 2022 Pneumococcal Conjugate Vacc, 13 Valent (Prevnar) 01/21/2016 Pneumococcal Conjugate Vacci ne, 20-valent ([id number]) 07/19/2023 Pneumococcal Polysaccharide PPV23 (Pneumovax) 01/13/2011 RSV [...] encounter Miscellaneous Notes * Telephone Encounter - Gabbie Billy OSA - 08/04/2024 1:23 PM EDT Pt scheduled for 08/08/24 at 8am with Cherry for pre op clearance * Telephone Encounter - Valentina Cortes, DEVORAH - 08/02/2024 8:07 AM EDT We will have to request additional OR time for flap case but will keep patient aware. OR on 08/08 isnot available anymore * Telephone Encounter - Harmony Paez PA-C - 08/01/2024 1:02 PM EDT Does patient need formal cardiac clearance? [id number] score of 4. May hold Eliquis 48 hours prior to procedure and resume once hemodynamically stable Harmony Paez PA-C * Telephone Encounter - Rehana Bautista OSA - 08/01/2024 11:35 AM EDT Person calling: Pablo SIMPOSN Relationship to patient: provider Phone/Fax to return call: [place] [phone] Reason for call(brief): Eliquis hold Pharmacy: na [...] EDT Person calling: Kaylie Relationship to patient: [facility] Phone/Fax to return call: [phone] Reason for call(brief): advice Pharmacy: N/A Provider [...] 2:00 PM EDT Office Visit [facility] [address] [place] [address] Supriya Fernandes MD [address] [place] [address] Arrived 08/08/2024 8:00 AM EDT Office Visit Cardiology, [place] [address] [place] [address] Cherry Warner PA-C [address] [place] [address] 08/09/2024 12:30 PM EDT Appointment Radiology, [facility] [address] [place] [address] 08/10/2024 7:30 AM EDT Hospital Encounter OR [facility]PERATING ROOM [facility] [address] [facility] [place] [phone] Lexie Aldridge MD [address] [place] [facility] [place] [address] 08/10/2024 7:30 AM EDT - 08/10/2024 4:58 PM EDT Surgery OR [facility] OPERATING ROOM [facility] [address] [facility] [place] [phone] Lexie Aldridge MD [address] [facility] [place] [phone] CERVICAL LYMPHADENECTOMY COMPLETE 08/14/2024 11:00 AM EDT Office Visit Nephrology, [facility] 400 [place] [address] Keisha Gunn MD [address] [place] [address] 08/21/2024 2:00 PM EDT Office Visit [facility] 21 [facility] [place] [phone] Fuentes Ashton MD 21 [facility] [place] [address] 12/21/2024 1:30 PM EST Office Visit Dermatology, [facility] [place] [address] [place] [phone] Malaika Guzman PA-C [address] [place] [address] 01/22/2025 1:30 PM EDT PulmDiagnostic Pulmonary Function Lab [facility] [place] [address] [place] [address] [address], [address] [place] [address] 01/22/2025 2:00 PM EDT Office Visit Pulmonary Medicine [facility] [address] [place] [phone] Dominguez Aguilar MD [address] [facility] [place] [address] 02/05/2025 10:00 AM EDT Office Visit Rheumatology, [address] [address] Rafael Hernandez PA-C [address], [place] [address] Scheduled Procedures Name Priority Associated Diagnoses Date/Ti [...] this encounter Medical Devices Implanted Type Area Natural Resources Professor Device Identifier Shelf Expiration Date Model / Serial / Lot Mesh Perfix Plug Lg [id number] - [id number] Implanted:Qty: 1 on 02/07/2019 by Jonathan Correia DO at OR [facility] Right: Groin CR BARD : DAVOL 09/04/2023 [id number] / / [id number] documented as of this encounter Visit Diagnoses Diagnosis Paroxysmal atrial fibrillation (HCC)- Primary Atrial fibrillation 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, face, and neck documented in this encounter Advance Directives Documents on File Type Date Recorded 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
--- OUTSIDE RECORDS SUMMARY | 2024-09-30 18:17 | External Medical Summary ---
Author Name Unknown Address Unknown Organization : Laboratory Report Ordering Provider Test Date Status ABAD AMATO 08/10/2024 10:01:37 Final Observation Date Value Abnormality Reference (Units ) Status Glucose Point of Care 08/10/2024 10:01:37 117 70-120 (mg/dL) Final Performing Location
--- OUTSIDE RECORDS SUMMARY | 2024-09-30 18:17 | External Medical Summary ---
Author Name Unknown Address Unknown Organization K01:[facility] - [address] [place] [address] Laboratory Report Ordering Provider Test Date Status ALYCIA GARCIAN 08/10/2024 06:47:11 Final Observation Date Value Abnormality Reference (Units ) Status ABO 08/10/2024 06:47:11 A Final RH 08/10/2024 06:47:11 Positive Final RED BLOOD CELL ANTIBODY SCREEN 08/10/2024 06:47:11 Negative Final SPECIMEN EXPIRATION DATE 08/10/2024 06:47:11 08/13/2024 23:59 Final Performing Location [facility] - [address] [place] [address]
--- OUTSIDE RECORDS SUMMARY | 2024-09-30 18:17 | External Medical Summary ---
Author Name Unknown Address Unknown Organization K01:[facility] - [address] [place] [address] Laboratory Report Ordering Provider Test Date Status ALYSHA HENRY 08/10/2024 15:53:08 Final Less than 0.5 ng/mL: Low ris k for progression to sepsis. Review patients condition for localized infections.

0.5 to 2.0 ng/mL: Intermediate risk for progresion to sepsis. Review underlying conditions. Recommend repeat PCT after 6 hours has elapsed.

Greater than 2.0 ng/mL: high risk for progression to sepsis unless other causes are known. Observation Date Value Abnormality Reference (Units ) Status Procalcitonin [Mass/volume] in Serum or Plasma by Immunoassay 08/10/2024 15:53:08 0.36 Above high normal <0.10 (ng/mL) Final Performing Location [facility] - [address] [place] [address]
--- OUTSIDE RECORDS SUMMARY | 2024-09-30 18:17 | External Medical Summary | Summary of Care ---
Author Name Unknown Organization [facility] Address [address] [place] [address] Phone [phone] Care Team Providers Care Cyber Security Architect Name Role Phone Fuentes Ashton MD Primary Care Provider [phone] Reason for Visit * Reason Comments NEW PATIENT New Cancer patient * Evaluate & Treat - Unlimited Visits (Within 3 days (urgent)) - Pending Review Specialty Diagnoses / Procedures Referred By Ayanna rios Referred To Contact Otolaryngology Diagnoses Squamous cell carcinoma of neck Supriya Fernandes MD [address] [place] [address] Lexie Aldridge MD [address] [place] [address] Referral ID Status Reason Start Date Expiration Date Visits Requested Visits Authorized [id number] Pending Review Specialty Services Required 07/31/[phone] Encounter Details Date Type Department Care Team (Late st Contact Info) Description 08/02/2024 2:30 PM EDT Office Visit Otolaryngology/Head & Neck/Facial Plastic Surgery [address] [place] [address] Lexie Aldridge MD [address] [place] [address] 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* [...] Delayed Release (PriLOSEC)Indicatio ns:Gastroesophageal reflux disease without esophagitis,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 1 Each 4 Active Albuterol Sulfate (2.5 MG/3ML) 0.083% Inhalation Nebulization Solution (Proventil)Indicati ons:COPD, group C, by GOLD 2017 classification ([facility]) Inhale 1 Vial via nebulizer every [...] 14 days. 28 Capsule 4 08/14/20 24 Active Doxycycline Monohydrate 100 MG Oral Capsule Take 1 Capsule by mouth in the morning and 1 Capsule before bedtime. Do all this for 7 days. 14 Capsule 08/02/20 24 documented as of this encounter [...] from 2019 Atherosclerotic heart diseas e of [place] coronary artery without angina pectoris 05/31/2020 CKD [...] mRNA, LNP-s, No Pre serve, 2-Dose Series (Linkyt) 08/15/2021,01/31/2021,01/03/2021 COVID-19, LNP-s, No Preserve , Ruslan-sucrose, Ages 12+ (Pfizer) 03/19/2022 COVID-19, MRNA-LNP, 23-24, P F, 30 MCG/0.3 mL, 12 YRS AND ABOVE, IM (Izooble-Comirnaty) 10/25/2023 Covid-19, Mrna, Lnp-s, Pf, B ivalent, 30 Mcg, IM, 12 yrs and above (Pfizer) 2022 Pneumococcal Conjugate Vacc, 13 Valent (Prevnar) 01/21/2016 Pneumococcal Conjugate Vacci ne, 20-valent ([id number]) 07/19/2023 Pneumococcal Polysaccharide PPV23 (Pneumovax) 01/13/2011 RSV [...] 1 965 - 1966 Smokeless Tobacco: Never Tobacco Cessation:Counseling Given: Not [...] No 01/31/2024 Does the household have a [facility] source of income? (Household - for ages [...] Pressure - - Pulse - - Temperature 36.9 C (98.4 F) 08/02/2024 3:03 PM ED T Respiratory Rate - - Oxygen Saturation - - Inhaled Oxygen Concentration - - Weight 68.4 kg (150 lb 11.2 oz) 08/02/2024 3:03 PM EDT Height 170.2 cm (5' 7") 08/02/2024 3:03 PM EDT Body Mass Index 23.6 08/02/2024 3:03 PM EDT documented in this encounter Functional Status [...] as of this encounter Progress Notes * Lexie Aldridge MD - 08/06/2024 2:22 PM EDT [facility] Otolaryngology - Head and Neck Surgery Progress Note 08/02/2024 S: Pt presents after TB discussion today for "Kennedy Davis is a 78 year old male with cutaneous SCCa (left neck). Perineural invasion noted on MOHS layers. There is possible involvement of the SCM."He recently had MOHS with Dr. Fernandes. There are some positive areas which are documented with a photo and marked with sutures. He is seeing his visualizer. He has a dressing over the wound and has been doing well with this. O: Temp 36.9 C (98.4 F) | Ht 1.702 m (5' 7") | Wt 68.4 kg (150 lb 11.2 oz) | BMI 23.60 kg/m | BSA 1.8 m Gen: NAD, AAO Face: No lesions OC/OP: no lesions Neck: Dressing partially removed and there is a large open wound. Past Medical History: Diagnosis Date Abdominal aortic aneurysm (AAA) without rupture (HCC) 07/11/2015 09/01/16: 3.78cm - repeat 1 yr 01/27/16: US: 3.87cm AAA - repeat 6 months 07/11/15: sts he had an US in the past - will check records Acute pancreatitis 03/09/2018 LIZZ (acute kidney injury) ([facility]) 06/26/2018 Aspergillosis ([facility]) 07/17/2019 history of Aspergillosis on the note on 3.[address] and AMP ATN (acute tubular necrosis) ([facility]) Bilateral pneumonia 08/08/2019 Acute, resolved? 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 Community acquired pneumonia 05/30/2019 COPD (chronic obstructive pulmonary disease) ([facility]) Diet-controlled diabetes mellitus ([facility]) 03/03/2021 Encounter for long-term (current) use of medications 09/06/2018 Enteritis 10/09/2017 Erythema nodosum Esophageal reflux Heart failure with acute decompensation, type unknown ([facility]) 06/07/2019 Herpes zoster without mention of complication History of pneumonia 06/22/2018 B/l PNA 06/2018 Hyperkalemia 12/16/2021 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 Hypoglycemia associated with type 2 diabetes mellitus ([facility]) 07/21/2019 Moderate protein-calorie malnutrition ([facility]) 01/06/2021 Protein-calorie malnutrition ([facility]) 06/23/2019 Pure hypercholesterolemia Sepsis ([facility]) acute Severe malnutrition ([facility]) 02/27/2018 Stage II pressure ulcer of left buttock ([facility]) 02/06/2022 Tinea cruris 09/28/2017 Unspecified essential hypertension [...] performed by Dominguez Aguilar MD at OR [facility] COLONOSCOPY, DIAGNOSTIC (RECTUM) 09/04/2015 Internal hemorrhoids, 5 yr recall COLONOSCOPY FLEXIBLE PROXIMAL DIAGNOSTIC performed by Yudelka Hopkins DO at ENDOSCOPY [facility] COLONOSCOPY, DIAGNOSTIC (RECTUM) 01/05/2018 diverticulosis sigmoid colon/internal hemorrhoids/recall 5 years/COLONOSCOPY FLEXIBLE PROXIMAL DIAGNOSTIC performed by Farrukh Gilliam MD at ENDOSCOPY [facility] EGD, FLEXIBLE, DIAGNOSTIC N/A 01/05/2018 hiatal hernia/normal/ESOPHAGOGASTRODUODENOSCOPY (EGD), FLEXIBLE, TRANSORAL, DIAGNOSTIC performed byFarrukh Gilliam MD at ENDOSCOPY [facility] INSER CHU CAT,W/O PUMP;5YR/OLD N/A 06/16/2019 INSERT TUNNELED CENTRAL VENOUS CATHETER AGE 5 OR OLDER performed by Vickey Woodruff MD at OR [facility] INSERTION OF LENS PROSTHESIS Left 05/02/2020 IR VENOUS ACCESS NON-MEDIPORT 10/24/2019 OTHER (INFORMATION) Removal of basal cell carcimoma from the back. REPAIR INITIAL INGUINAL HERNIA REDUCIBLE AGE 5 OR MORE Left 2009 REPAIR INITIAL INGUINAL HERNIA REDUCIBLE AGE 5 OR MORE Right 02/07/2019 REPAIR INITIAL INGUINAL HERNIA REDUCIBLE AGE 5 OR MORE performed by Jonathan Correia DO at OR [facility] A/P: Kennedy Davis is a 78 year old male with large MOHS defect for high risk cutaneous SCC and with positive margins. - Plan for further excision and neck dissection followed by either Pec flap or ALT flap reconstruction. He will be seeing cardiology first. He will resume blood thinners but was instructed when to stop them again before surgery. Surgery is planned for this coming . Lexie Aldridge MD Head & Neck / Microvascular Surgery documented in this encounter Plan of Treatment Upcoming Encounters Date Type Department Care Team (Latest Contact Info) Description 08/08/2024 8:00 AM EDT Office [address] [address] Cherry Warner PA-C [address] [place] [address] 08/09/2024 12:30 PM EDT Appointment Radiology, [facility] [address] [address] 08/10/2024 7:30 AM EDT Hospital Encounter OR [facility], OPERATING ROOM [facility] JONAH ORTIZ [address] [place] [phone] Lexie Aldridge MD [address] [place] [address] 08/10/2024 7:30 AM EDT - 08/10/2024 4:58 PM EDT Surgery [facility], OPERATING ROOM [facility]AH [place] [address] [place] [address] Lexie Aldridge MD [address] [place] [address] CERVICAL LYMPHADENECTOMY COMPLETE 08/14/2024 11:00 AM EDT Office Visit Nephrology, [facility] [address] [place], [place] [phone] Keisha Gunn MD [address] [place], [place] [phone] 08/21/2024 2:00 PM EDT Office Visit Family [facility] [address] [place] [phone] Fuentes Ashton MD [address] [place] [address] 11/14/2024 1:15 PM EST Office Visit [facility] Surgery [facility] [address] [place] [address] Supriya Fernandes MD [address] [place] [address] 12/21/2024 1:30 PM EST Office Visit Dermatology, [place] [address] [place] [address] Malaika Guzman PA-C [address] [place] [address] 01/22/2025 1:30 PM EDT PulmDiagnostic Pulmonary Function Lab Ahmet Downing [address] [place] [address] [address], [address] [place] [address] 01/22/2025 2:00 PM EDT Office Visit Pulmonary Medicine [facility] [address] [facility] [place] [address] Dominguez Aguilar MD [address] [facility] [address] 02/05/2025 10:00 AM EDT Office Visit Rheumatology, [address] [address] Rafael Hernandez PA-C [address] [employer] [facility], [place] [address] Scheduled Procedures Name Priority Associated Diagnoses Date/Ti [...] Scheduled Referrals Name Type Priority Associated Diagnoses Order Schedule ADULT/PEDS OTOLARYNGOLOGY REFERRAL OP Referral Within 3 days (urgent) Squamous cell carcinoma of neck Ordered: 07/31/2024 Health Maintenance Due Date Last Done Comments [...] 05/18/2023, Additional history exists GFR 01/25/2025 07/28/2024, 090 02/2024, 06/09/2024, Additional history exists TSH 01/30/2025 [...] this encounter Medical Devices Implanted Type Area Chef Assistant Device Identifier Shelf Expiration Date Model / Serial / Lot Mesh Perfix Plug Lg [id number] - [id number] Implanted:Qty: 1 on 02/07/2019 by Jonathan Correia DO at OR [facility] Right: Groin CR BARD : DAVOL 09/04/2023 [id number] / / [id number] documented as of this encounter Visit Diagnoses Diagnosis 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- Primary Squamous cell carcinoma of scalp and skin of neck 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, face, and neck documented in this encounter Advance Directives Documents on File Type Date Recorded 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
--- OUTSIDE RECORDS SUMMARY | 2024-09-30 18:17 | External Medical Summary | Summary of Care ---
Author Name Unknown Organization [facility] Address [address] [facility] [place] [address] Phone [phone] Care Team Providers Care Employment Training Specialist Name Role Phone Fuentes Ashton MD Primary Care Provider [phone] Reason for Visit * Reason Onset Date Comments Advice 07/26/2024 Encounter Details Date Type Department Care Team (Late st Contact Info) Description 07/26/2024 Telephone Cardiology, [place] [address] [place] [phone] Harmony Paez PA-C [address] [place] [phone] Advice Allergies Active Allergy Reactions Criticality Noted Date Comments Aztreonam Hives Medium 10/11/2019 Cephalosporins Rash 05/24/2017 Chlorhexidine Hives,Rash 01/02/2022 Ciprofloxacin Diarrhea Medium 01/28/2015 Iodinated Contrast Media [...] Delayed Release (PriLOSEC)Indicatio ns:Gastroesophageal reflux disease without esophagitis,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 [...] Powder Breath ActivatedIndication s:COPD, moderate ([facility]) Inhale [...] from 2018 Atherosclerotic heart diseas e of [place] coronary artery without angina pectoris 05/31/2020 CKD (chronic kidney disease) stage 4, GFR 15-29 ml/min 07/17/2019 Chronic anticoagulation 04/03/2019 Vitamin D deficiency 11/17/2018 Senile osteoporosis 09/06/2018 Paroxysmal atrial fibrillation 07/08/2018 Last Assessment & Plan: Rate controlled on metoprolol Continue apixaban History of acute tubular necrosis 06/29/2018 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 IPMN (intraductal papillary mucinous neoplasm) 0 03/09/2018 Overview: MRI 02/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 [...] chronic kidney disease 08/03/2023 08/03/2023 Atherosclerosis of [place] co ronary artery without angina pectoris 02/01/2023 [...] 05/31/2020 Hypertensive heart disease w [facility] heart failure and stage 5 chronic kidney [...] AMP Hypertensive heart disease w [facility] heart failure and stage 3 chronic kidney [...] mRNA, LNP-s, No Pre serve, 2-Dose Series (CASTT) 08/15/2021,01/31/2021,01/03/2021 COVID-19, LNP-s, No Preserve , Ruslan-sucrose, Ages 12+ (Pfizer) 03/19/2022 COVID-19, MRNA-LNP, 23-24, P F, 30 MCG/0.3 mL, 12 YRS AND ABOVE, IM ([employer]) 10/25/2023 Covid-19, Mrna, Lnp-s, Pf, B ivalent, 30 Mcg, IM, 12 yrs and above (CASTT) 2022 Pneumococcal Conjugate Vacc, 13 Valent (Prevnar) 01/21/2016 Pneumococcal Conjugate Vacci ne, 20-valent ([id number]) 07/19/2023 Pneumococcal Polysaccharide PPV23 (Pneumovax) 01/13/2011 RSV [...] EDT Does patient need formal cardiac clearance? [id number] score of 4. May hold Eliquis 48 hours prior to procedure and resume once hemodynamically stable Harmony Paez PA-C * Telephone Encounter - Rehana Bautista OSA - 08/01/2024 11:35 AM EDT Person calling: Pablo ENT Relationship to patient: provider Phone/Fax to return call: [place] [phone] Reason for call(brief): Eliquis hold Pharmacy: na [...] EDT Person calling: Kaylie Relationship to patient: [facility] Phone/Fax to return call: [phone] Reason for call(brief): advice Pharmacy: N/A Provider [...] Description 08/04/2024 2:00 PM EDT Office Visit [facility] Surgery [facility] [address] [place] [address] Supriya Fernandes MD [address] [place] [address] 08/09/2024 12:30 PM EDT Appointment Radiology, [address] [address] 08/10/2024 7:30 AM EDT Hospital Encounter OR [facility], OPERATING ROOM [facility] [address] [place] [phone] Lexie Aldridge MD [address] [place] [address] 08/10/2024 7:30 AM EDT - 08/10/2024 4:58 PM EDT Surgery OR [facility], OPERATING ROOM [facility] [address] [place] [phone] Lexie Aldridge MD [address] [place] [address] CERVICAL LYMPHADENECTOMY COMPLETE 08/14/2024 11:00 AM EDT Office Visit Nephrology, [address] [address] Keisha Gunn MD [address] [place] [address] 08/21/2024 2:00 PM EDT Office Visit Family [facility] [address] [place] [phone] Fuentes Ashton MD 21 [place], [place] [phone] 12/21/2024 1:30 PM EST Office Visit Dermatology, [facility] 27 [facility] [address] [place] [phone] Malaika Guzman PA-C [address] [place] [address] 01/22/2025 1:30 PM EDT PulmDiagnostic Pulmonary Function Lab [facility] [address] [facility] [place] [address] [address], [address] [facility] [address] 01/22/2025 2:00 PM EDT Office Visit Pulmonary Medicine [facility] [address] [facility] [place] [phone] Dominguez Aguilar MD [address] [facility] [place] [address] 02/05/2025 10:00 AM EDT Office Visit Rheumatology, [address] [phone] Rafael Hernandez RAJEEV [address] [place], [place] [address] [address] Scheduled Procedures Name Priority Associated Diagnoses Date/Ti [...] this encounter Medical Devices Implanted Type Area Metal Fabricator Welder Device Identifier Shelf Expiration Date Model / Serial / Lot Mesh Perfix Plug Lg [id number] - [id number] Implanted:Qty: 1 on 02/07/2019 by Jonathan Correia DO at OR [facility] Right: Groin CR BARD : DAVOL 09/04/2023 [id number] / / [id number] documented as of this encounter Visit Diagnoses Diagnosis Paroxysmal atrial fibrillation (HCC)- Primary Atrial fibrillation 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, face, and neck documented in this encounter Advance Directives Documents on File Type Date Recorded Patient Private Pilot Expl anation Advance Directives and Living Will [...] verbally by patient or by statute hierarchy) [facility] Adult Child Emergency Contact Care Teams Employment Training Specialist Relationship Specialty Start Date End Date Fuentes Ashton MD [address] [place] [address] PCP - General Family Medicine 01/30/22 documented as of this encounter
--- OUTSIDE RECORDS SUMMARY | 2024-09-30 18:18 | External Medical Summary | Summary of Care ---
Author Name Unknown Organization [facility] Address [address] [place] [address] Phone [phone] Care Team Providers Care Metallurgical Technician Name Role Phone Fuentes Ashton MD Primary Care Provider [phone] Reason for Visit * Reason Onset Date Comments Advice 08/03/2024 Encounter Details Date Type Department Care Team (Late st Contact Info) Description 08/03/2024 Telephone Dermatology [facility] [place] 200 [facility] [place] [address] Supriya Fernandes MD 200 [facility] [place] [address] Advice Allergies Active Allergy Reactions Criticality Noted Date Comments Aztreonam Hives Medium 10/11/2019 Cephalosporins Rash 05/24/2017 Chlorhexidine Hives,Rash 01/02/2022 Ciprofloxacin Diarrhea Medium 01/28/2015 Iodinated Contrast Media Abdominal pain High 019 Acute kidney failure Levofloxacin Rash Low 07/28/2019 documented as of this encounter (statuses as of 08/03/2024) Medications Medication Sig Dispensed Refills Start Date [...] Tablet before bedtime. 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 Take by [...] Powder Breath ActivatedIndication s:COPD, moderate ([facility]) Inhale 2 Puffs [...] as of this encounter (statuses as of 08/03/2024) Active Problems Problem Noted Date Diagnosed Date [...] from 2018 Atherosclerotic heart diseas e of [place] coronary artery without angina pectoris 05/31/2020 CKD (chronic kidney disease) stage 4, GFR 15-29 ml/min 07/17/2019 Chronic anticoagulation 04/03/2019 Vitamin D deficiency 11/17/2018 Senile osteoporosis 09/06/2018 Paroxysmal atrial fibrillation 07/08/2018 Last Assessment & Plan: Rate controlled on metoprolol Continue apixaban History of acute tubular necrosis 06/29/2018 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 IPMN (intraductal papillary mucinous neoplasm) 0 03/09/2018 Overview: 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 Steroid-induced diabetes [...] as of this encounter (statuses as of 08/03/2024) Resolved Problems Problem Noted Date Diagnosed Date [...] chronic kidney disease 08/03/2023 08/03/2023 Atherosclerosis of [place] co ronary artery without angina pectoris 02/01/2023 [...] PL and AMP Hypertensive heart disease w [facility] heart failure and stage 3 chronic [...] as of this encounter (statuses as of 08/03/2024) Immunizations Name Administration Dates Next Due COVID-19 mRNA, LNP-s, No Pre serve, 2-Dose Series ([employer]) 08/15/2021,01/31/2021,01/03/2021 COVID-19, LNP-s, No Preserve , Ruslan-sucrose, Ages 12+ (Pfizer) 03/19/2022 COVID-19, MRNA-LNP, 23-24, P F, 30 MCG/0.3 mL, 12 YRS AND ABOVE, IM ([employer]) 10/25/2023 Covid-19, Mrna, Lnp-s, Pf, B ivalent, 30 Mcg, IM, 12 yrs and above ([employer]) 2022 Pneumococcal Conjugate Vacc, 13 Valent (Prevnar) 01/21/2016 Pneumococcal Conjugate Vacci ne, 20-valent ([id number]) 07/19/2023 Pneumococcal Polysaccharide PPV23 (Pneumovax) 01/13/2011 RSV [...] encounter Miscellaneous Notes * Telephone Encounter - Supriya Fernandes MD - 08/03/2024 2:00 PM EDT Yes, have patient come in for a bandage change tomorrow (08/04). Supriya Fernandes MD 08/03/2024 2:00 PM * Telephone Encounter - Lashay Durant, DEVORAH - 08/03/2024 1:54 PM EDT [facility] called in, they have an appt next week but are worried the bandage will come loose before then. Should they be changing bandage at all before their appt? Please call. Lashay documented in this encounter Plan of Treatment Upcoming Encounters Date Type Department Care Team (Latest Contact Info) Description 08/09/2024 12:30 PM EDT Appointment Radiology, [address] [address] 08/10/2024 7:30 AM EDT Hospital Encounter OR GM, OPERATING ROOM [facility] [address] [place] [phone] Lexie Aldridge MD [address] [place], [place] [phone] 08/10/2024 7:30 AM EDT - 08/10/2024 4:58 PM EDT Surgery OR C, OPERATING ROOM [facility] [address] [place] [address] Lexie Aldridge MD [address] [place], [place] [phone] CERVICAL LYMPHADENECTOMY COMPLETE 08/14/2024 11:00 AM EDT Office Visit Nephrology, [address] [address] Keisha Gunn MD [address] [place] [phone] 08/21/2024 2:00 PM EDT Office Visit Family [facility] [place] [facility] [place] [address] Fuentes Ashton MD 21 [facility] [place] [address] 12/21/2024 1:30 PM EST Office Visit Dermatology, [address] [place] [address] [facility] [address] [place] [address] Malaika Guzman PA-C [address] [place] [address] 01/22/2025 1:30 PM EDT PulmDiagnostic Pulmonary Function Lab [facility] [place] [address] [facility] [place] [address] [address], [address] [place] [address] 01/22/2025 2:00 PM EDT Office Visit Pulmonary Medicine [facility] [place] [address] [facility] [place] [phone] Dominguez Aguilar MD [address] [facility] [place] [address] 02/05/2025 10:00 AM EDT Office Visit Rheumatology, [address] [place] [address] Rafael Hernandez PA-C [address] [facility], [place] [address] Scheduled Procedures Name Priority Associated Diagnoses Date/Ti [...] encounter Medical Devices Implanted Type Area Power Ballast Machine Operator Device Identifier Shelf Expiration Date Model / Serial / Lot Mesh Perfix Plug Lg [id number] - [id number] Implanted:Qty: 1 on 02/07/2019 by Jonathan Correia DO at OR [facility] Right: Lelo KEBEDE BARD : MARIE 09/04/2023 [id number] / / [id number] documented as of this encounter Advance Directives Documents on File Type Date Recorded Patient Manager Of Sales Expl anation Advance Directives and Living Will [...] by patient or by statute hierarchy) [facility] Adult Child Emergency Contact Care Teams Metallurgical Technician Relationship Specialty Start Date End Date Fuentes Ashton MD [address] [place] [phone] PCP - General Family Medicine 01/30/22 documented as of this encounter
--- OUTSIDE RECORDS SUMMARY | 2024-09-30 18:18 | External Medical Summary | Summary of Care ---
Author Name Unknown Organization [facility] Address [address] [place] [address] Phone [phone] Care Team Providers Care Spine Specialist Name Role Phone Fuentes Ashton MD Primary Care Provider [phone] Reason for Visit * Reason Onset Date Comments Appointment 08/03/2024 Encounter Details Date Type Department Care Team (Late st Contact Info) Description 08/03/2024 Telephone [facility] Surgery [facility] [address] [place] [address] Supriya Fernandes MD [address] [place] [address] Appointment Allergies Active Allergy Reactions Criticality Noted [...] Delayed Release (PriLOSEC)Indicatio ns:Gastroesophageal reflux disease without esophagitis,long-term (current) use of [...] Inhalation Aerosol Powder Breath ActivatedIndication s:COPD, moderate ([facility]) Inhale 2 Puffs by mouth [...] from 2018 Atherosclerotic heart diseas e of [place] coronary artery without angina pectoris 05/31/2020 CKD [...] chronic kidney disease 08/03/2023 08/03/2023 Atherosclerosis of [place] co ronary artery without angina pectoris 02/01/2023 [...] mRNA, LNP-s, No Pre serve, 2-Dose Series (P2P-Next) 08/15/2021,01/31/2021,01/03/2021 COVID-19, LNP-s, No Preserve , Ruslan-sucrose, Ages 12+ (Pfizer) 03/19/2022 COVID-19, MRNA-LNP, 23-24, P F, 30 MCG/0.3 mL, 12 YRS AND ABOVE, IM ([facility]) 10/25/2023 Covid-19, Mrna, Lnp-s, Pf, B ivalent, 30 Mcg, IM, 12 yrs and above (P2P-Next) 2022 Pneumococcal Conjugate Vacc, 13 Valent (Prevnar) 01/21/2016 Pneumococcal Conjugate Vacci ne, 20-valent ([id number]) 07/19/2023 Pneumococcal Polysaccharide PPV23 (Pneumovax) 01/13/2011 RSV [...] encounter Miscellaneous Notes * Telephone Encounter - Sully Dale LPN - 08/03/2024 2:10 PM EDT Called and spoke to spouse - pt is coming in at 2 on 08/04 for bandage change documented in this encounter Plan of Treatment Upcoming Encounters Date Type Department Care Team (Latest Contact Info) Description 08/04/2024 2:00 PM EDT Office Visit [facility] [place] [address] [place] [address] Supriya Fernandes MD 200 [facility] [address] 08/09/2024 12:30 PM EDT Appointment Radiology, [address] [address] 08/10/2024 7:30 AM EDT Hospital Encounter [place] [facility], OPERATING ROOM [facility] [address] [place] [phone] Lexie Aldridge MD [address] [place] [address] 08/10/2024 7:30 AM EDT - 08/10/2024 4:58 PM EDT Surgery [place] [facility], OPERATING ROOM [facility] [address] [place] [phone] Lexie Aldridge MD [address] [place] [address] CERVICAL LYMPHADENECTOMY COMPLETE 08/14/2024 11:00 AM EDT Office Visit Nephrology, [address] [address] Keisha Gunn MD [address] [place] [address] 08/21/2024 2:00 PM EDT Office Visit Family [facility] [place] [facility] [place] [phone] Fuentes Ashton MD 21 [place] [address] 12/21/2024 1:30 PM EST Office Visit Dermatology, [place] [address] [place] [address] Malaika Guzman PA-C [address] [facility] [place] [address] 01/22/2025 1:30 PM EDT PulmDiagnostic Pulmonary Function Lab [facility] [address] [facility] [place] [address] [address], [address] [place] [address] 01/22/2025 2:00 PM EDT Office Visit Pulmonary Medicine [facility] [place] [address] [facility] [place] [phone] Dominguez Aguilar MD [address] [facility] [address] 02/05/2025 10:00 AM EDT Office Visit Rheumatology, [facility] [address] [place] [address] Rafael Hernandez PA-C [address] [place] [address] [employer] [facility] [place] [address] Scheduled Procedures Name Priority Associated Diagnoses Date/Ti [...] this encounter Medical Devices Implanted Type Area Shaper Set Up Operator Device Identifier Shelf Expiration Date Model / Serial / Lot Mesh Perfix Plug Lg [id number] - [id number] Implanted:Qty: 1 on 02/07/2019 by Jonathan Correia DO at OR [facility] Right: Groin CR BARD : DAVOL 09/04/2023 [id number] / / [id number] documented as of this encounter Advance Directives Documents on File Type Date Recorded Patient Vessel Builder Expl anation Advance Directives and Living [...] [place] Adult Child Emergency Contact Care Teams Spine Specialist Relationship Specialty Start Date End Date Fuentes Ashton MD 21 [place] [address] PCP - General Family Medicine 01/30/22 documented as of this encounter
--- OUTSIDE RECORDS SUMMARY | 2024-09-30 18:18 | External Medical Summary | Summary of Care ---
Author Name Unknown Organization [facility] Address [address] [place] [address] Phone [phone] Care Team Providers Care Frothing Machine Operator Name Role Phone Fuentes Ashton MD Primary Care Provider [phone] Reason for Visit * Reason Onset Date Comments Advice 08/03/2024 Encounter Details Date Type Department Care Team (Late st Contact Info) Description 08/03/2024 Telephone Dermatology [facility] [place] 200 [facility] [place] [address] Supriya Fernandes MD 200 [facility] [place] [address] Advice Allergies Active Allergy Reactions Criticality Noted [...] s:COPD, moderate ([facility]) Inhale 2 Puffs by mouth every [...] from 2018 Atherosclerotic heart diseas e of [place] coronary artery without angina pectoris 05/31/2020 CKD [...] chronic kidney disease 08/03/2023 08/03/2023 Atherosclerosis of [place] co ronary artery without angina pectoris 02/01/2023 [...] PL and AMP Hypert[facility] heart failure and stage 3 chronic [...] mRNA, LNP-s, No Pre serve, 2-Dose Series (Toppr) 08/15/2021,01/31/2021,01/03/2021 COVID-19, LNP-s, No Preserve , Ruslan-sucrose, Ages 12+ (Pfizer) 03/19/2022 COVID-19, MRNA-LNP, 23-24, P F, 30 MCG/0.3 mL, 12 YRS AND ABOVE, IM ([facility]) 10/25/2023 Covid-19, Mrna, Lnp-s, Pf, B ivalent, 30 Mcg, IM, 12 yrs and above (Toppr) 2022 Pneumococcal Conjugate Vacc, 13 Valent (Prevnar) 01/21/2016 Pneumococcal Conjugate Vacci ne, 20-valent ([id number]) 07/19/2023 Pneumococcal Polysaccharide PPV23 (Pneumovax) 01/13/2011 RSV [...] Description 08/09/2024 12:30 PM EDT Appointment Radiology, [address] [address] 08/10/2024 7:30 AM EDT Hospital Encounter OR [facility], OPERATING ROOM [facility] [address] [place] [phone] Lexie Aldridge MD [address] [place], [place] [phone] 08/10/2024 7:30 AM EDT - 08/10/2024 4:58 PM EDT Surgery OR C, OPERATING ROOM [facility] [address] [place] [address] Lexie Aldridge MD [address] [place], [place] [phone] CERVICAL LYMPHADENECTOMY COMPLETE 08/14/2024 11:00 AM EDT Office Visit Nephrology, [address] [address] Keisha Gunn MD [address] [place] [phone] 08/21/2024 2:00 PM EDT Office Visit Family [facility] [place] [facility] [place] [phone] Fuentes Ashton MD 21 [facility] [place] [address] 12/21/2024 1:30 PM EST Office Visit Dermatology, [place] [address] [facility] 140 [place] [address] Malaika Guzman PA-C [address] [place] [address] 01/22/2025 1:30 PM EDT PulmDiagnostic Pulmonary Function Lab [facility] [place] [address] [facility] [place] [address] [address], [address] [place] [address] 01/22/2025 2:00 PM EDT Office Visit Pulmonary Medicine [facility] [place] [address] [facility] [place] [phone] Dominguez Aguilar MD [address] [facility] [place] [address] 02/05/2025 10:00 AM EDT Office Visit Rheumatology, [address] [place] [address] Rafael Hernandez PA-C [address] [facility], [place] [address] Scheduled Procedures Name Priority Associated Diagnoses Date/Ti [...] this encounter Medical Devices Implanted Type Area Canal Equipment Mechanic Device Identifier Shelf Expiration Date Model / Serial / Lot Mesh Perfix Plug Lg [id number] - [id number] Implanted:Qty: 1 on 02/07/2019 by Jonathan Correia DO at OR [facility] Right: Lelo KEBEDE BARD : MARIE 09/04/2023 [id number] / / [id number] documented as of this encounter Advance Directives Documents on File Type Date Recorded Patient Chopped Strand Operator Expl anation Advance Directives and Living [...] by patient or by statute hierarchy) Lula [place] Adult Child Emergency Contact Care Teams Frothing Machine Operator Relationship Specialty Start Date End Date Fuentes Ashton MD 21 [place] [phone] PCP - General Family Medicine 01/30/22 documented as of this encounter
--- OUTSIDE RECORDS SUMMARY | 2024-09-30 18:18 | External Medical Summary | Summary of Care ---
Author Name Unknown Organization [facility] Address [address] [place] [address] Phone [phone] Care Team Providers Care Tacker Off Name Role Phone Fuentes Ashton MD Primary Care Provider [phone] Reason for Visit * Reason Onset Date Comments Advice 08/03/2024 Encounter Details Date Type Department Care Team (Late st Contact Info) Description 08/03/2024 Telephone Dermatology [facility] Fr[place] 200 [facility] [place] [address] Supriya Fernandes MD 200 [facility] [place] [address] Advice Allergies Active Allergy Reactions Criticality Noted [...] Delayed Release (PriLOSEC)Indicatio ns:Gastroesophageal reflux disease without esophagitis,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 1 Each 11 07/06/2024 Active Albuterol Sulfate (2.5 MG/3ML) 0.083% Inhalation Nebulization Solution (Proventil)Indicati ons:COPD, group C, by GOLD 2017 classification ([facility] [...] from 2018 Atherosclerotic heart diseas e of [place] coronary artery without angina pectoris 05/31/2020 CKD (chronic kidney disease) stage 4, GFR 15-29 ml/min 07/17/2019 Chronic anticoagulation 04/03/2019 Vitamin D deficiency 11/17/2018 Senile osteoporosis 09/06/2018 Paroxysmal atrial fibrillation 07/08/2018 Last Assessment & Plan: Rate controlled on metoprolol Continue apixaban History of acute tubular necrosis 06/29/2018 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 IPMN (intraductal papillary mucinous neoplasm) 0 03/09/2018 Overview: 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 08/03/2023 08/03/2023 Atherosclerosis of [place] co ronary artery without angina pectoris 02/01/2023 [...] PL and AMP Hypertensive heart disease w [facility] heart failure and stage 3 chronic [...] mRNA, LNP-s, No Pre serve, 2-Dose Series (Infinite Z) 08/15/2021,01/31/2021,01/03/2021 COVID-19, LNP-s, No Preserve , Ruslan-sucrose, Ages 12+ (Pfizer) 03/19/2022 COVID-19, MRNA-LNP, 23-24, P F, 30 MCG/0.3 mL, 12 YRS AND ABOVE, IM ([facility]) 10/25/2023 Covid-19, Mrna, Lnp-s, Pf, B ivalent, 30 Mcg, IM, 12 yrs and above (Infinite Z) 2022 Pneumococcal Conjugate Vacc, 13 Valent (Prevnar) 01/21/2016 Pneumococcal Conjugate Vacci ne, 20-valent ([id number]) 07/19/2023 Pneumococcal Polysaccharide PPV23 (Pneumovax) 01/13/2011 RSV [...] encounter Miscellaneous Notes * Telephone Encounter - Lashay Durant OSA - 08/03/2024 2:21 PM EDT Nurse put pt on schedule tomorrow at 2PM * Telephone Encounter - Supriya Fernandes MD - 08/03/2024 2:00 PM EDT Yes, have patient come in for a bandage change tomorrow (08/04). Supriya Fernandes MD 08/03/2024 2:00 PM * Telephone Encounter - Lashay Durant OSA - 08/03/2024 1:54 PM EDT [facility] called in, they have an appt next week but are worried the bandage will come loose before then. Should they be changing bandage at all before their appt? Please call. Lashay documented in this encounter Plan of Treatment Upcoming Encounters Date Type Department Care Team (Latest Contact Info) Description 08/04/2024 2:00 PM EDT Office Visit [facility] Surgery [facility] [address] [place] [address] Supriya Fernandes MD [address] [place] [address] 08/09/2024 12:30 PM EDT Appointment Radiology, [address] [address] 08/10/2024 7:30 AM EDT Hospital Encounter [facility], OPERATING ROOM [facility] [address] [place] [phone] Lexie Aldridge MD [address] [place], [place] [phone] 08/10/2024 7:30 AM EDT - 08/10/2024 4:58 PM EDT Surgery OR [facility], OPERATING ROOM [facility] [address] [place] [phone] Lexie Aldridge MD [address] [place], [place] [phone] CERVICAL LYMPHADENECTOMY COMPLETE 08/14/2024 11:00 AM EDT Office Visit Nephrology, [address] [phone] Keisha Gunn MD [address] [place] [address] [place] [address] 08/21/2024 2:00 PM EDT Office Visit [facility] 21 [facility] [place] [phone] Fuentes Ashton MD 21 [facility] [address] 12/21/2024 1:30 PM EST [facility] 27 [facility] [place] 140 [place] [address] Malaika Guzman PA-C 27 [facility] [place] [address] 01/22/2025 1:30 PM EDT PulmDiagnostic Pulmonary Function Lab [facility] [address] [place] [address] [address], [address] [facility] [place] [address] 01/22/2025 2:00 PM EDT Office Visit Pulmonary Medicine [facility] [address] S [facility] [place] [phone] Dominguez Aguilar MD [address] [facility] [place] [address] 02/05/2025 10:00 AM EDT Office Visit Rheumatology, [address] [address] Rafael Hernandez PA-C [address] [place] [address], [place] [address] Scheduled Procedures Name Priority Associated Diagnoses Date/Ti [...] this encounter Medical Devices Implanted Type Area Colorist Dyer Device Identifier Shelf Expiration Date Model / Serial / Lot Mesh Perfix Plug Lg [id number] - [id number] Implanted:Qty: 1 on 02/07/2019 by Jonathan Correia, DO at OR [facility] Right: Lelo KEBEDE BARD : MARIE 09/04/2023 [id number] / / [id number] documented as of this encounter Advance Directives Documents on File Type Date Recorded 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 Question Answer Comments Discussion of Advance Directives occurred with: Patient Does the patient have a Living Will? No Does the patient have Health Care Power of Attor patricia? No * Full Code Date Activated Date Inactivated Comments 12/16/2021 2:35 PM 01/05/2022 7:06 PM This order r eflects the patients wishes and were consensually agreed upon. Question Answer Comments Discussion of Advance Directives occurred with: Patient/Family Healthcare Agents on File Name Relationship Healthcare Agent Relationshi p Communication Karen Davis Spouse Health Care Repr esentative (appointed verbally by patient or by statute hierarchy) [facility] Adult Child Emergency Contact Care Teams Tacker Off Relationship Specialty Start Date End Date Fuentes Ashton MD 21 [place] [phone] PCP - General Family Medicine 01/30/22 documented as of this encounter
--- OUTSIDE RECORDS SUMMARY | 2024-09-30 18:18 | External Medical Summary | Summary of Care ---
Author Name Unknown Organization [facility] Address [address] [place] [address] Phone [phone] Care Team Providers Care Ruby On Rails Software Developer Name Role Phone Fuentes Ashton MD Primary Care Provider [phone] Encounter Details Date Type Department Care Team (Late st Contact Info) Description 07/31/2024 Documentation [facility] Otolaryngology [address] [place] [address] Vannessa Cameron MD [address] [place] [address] Allergies Active Allergy Reactions Criticality Noted Date [...] ons:COPD, group C, by GOLD 2017 classification (TRIDENT [...] from 2018 Atherosclerotic heart diseas e of [place] coronary artery without angina pectoris 05/31/2020 CKD (chronic kidney disease) stage 4, GFR 15-29 ml/min 07/17/2019 Chronic anticoagulation 04/03/2019 Vitamin D deficiency 11/17/2018 Senile osteoporosis 09/06/2018 Paroxysmal atrial fibrillation 07/08/2018 Last Assessment & Plan: Rate controlled on metoprolol Continue apixaban History of acute tubular necrosis 06/29/2018 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 IPMN (intraductal papillary mucinous neoplasm) 0 03/09/2018 Overview: 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 [...] chronic kidney disease 08/03/2023 08/03/2023 Atherosclerosis of [place] co ronary artery without angina pectoris 02/01/2023 [...] mRNA, LNP-s, No Pre serve, 2-Dose Series (Let's Talk) 08/15/2021,01/31/2021,01/03/2021 COVID-19, LNP-s, No Preserve , Ruslan-sucrose, Ages 12+ (Pfizer) 03/19/2022 COVID-19, MRNA-LNP, 23-24, P F, 30 MCG/0.3 mL, 12 YRS AND ABOVE, IM ([facility] 10/25/2023 Covid-19, Mrna, Lnp-s, Pf, B ivalent, 30 Mcg, IM, 12 yrs and above (Pfizer) 2022 Pneumococcal Conjugate Vacc, 13 Valent (Prevnar) 01/21/2016 Pneumococcal Conjugate Vacci ne, 20-valent ([id number]) 07/19/2023 Pneumococcal Polysaccharide PPV23 (Pneumovax) 01/13/2011 RSV [...] Care Team (Late st Contact Info) Description 08/09/2024 12:30 PM EDT Appointment Radiology, [address] [address] 08/14/2024 11:00 AM EDT Office Visit Nephrology, [address] [place] [address] Keisha Gunn MD [address] [place], [place] [address] [address] 08/21/2024 2:00 PM EDT Office Visit Family [address] [place] [phone] Fuentes Ashton MD 21 [facility] [place] [address] 12/21/2024 1:30 PM EST Office Visit Dermatology, Melissa Desir [place] [address] [place] [address] Malaika Guzman PA-C [address] [place] [address] 01/22/2025 1:30 PM EDT PulmDiagnostic Pulmonary Function Lab [facility] [address] [facility] [place] [address] [address], [address] [facility] [place] [address] 01/22/2025 2:00 PM EDT Office Visit Pulmonary Medicine [facility] [place] [address] [facility] [place] [phone] Dominguez Aguilar MD [address] [facility] [address] 02/05/2025 10:00 AM EDT Office Visit Rheumatology, [address] [place] [address] Rafael Hernandez, PA-C [address] [place] [address], [place] [address] Scheduled Procedures Name Priority Associated Diagnoses Date/Ti [...] this encounter Medical Devices Implanted Type Area Flying Teacher Device Identifier Shelf Expiration Date Model / Serial / Lot Mesh Perfix Plug Lg [id number] - [id number] Implanted:Qty: 1 on 02/07/2019 by Jonathan Correia, DO at OR [facility] Right: Lelo KEBEDE BARD : MARIE 09/04/2023 [id number] / / [id number] documented as of this encounter Advance Directives Documents on File Type Date Recorded Patient Front End Developer Javascript Html Css Expl anation Advance Directives and Living Will [...] verbally by patient or by statute hierarchy) [facility] Adult Child Emergency Contact Care Teams Ruby On Rails Software Developer Relationship Specialty Start Date End Date Fuentes Ashton MD 21 [place] [phone] PCP - General Family Medicine 01/30/22 documented as of this encounter
--- OUTSIDE RECORDS SUMMARY | 2024-09-30 18:18 | External Medical Summary | Summary of Care ---
Author Name Unknown Organization [facility] Address [address] [place] [address] Phone [phone] Care Team Providers Care Home Delivery Driver Name Role Phone Fuentes Ashton MD Primary Care Provider +1 [phone] Encounter Details Date Type Department Care Team (Late st Contact Info) Description 07/31/2024 Documentation [facility] Otolaryngology [address] [place] [address] Vannessa Cameron MD [address] [place] [address] Allergies Active Allergy Reactions Criticality [...] group C, by GOLD 2017 classification ([facility]) Inhale 1 Vial via nebulizer every [...] bay coronary artery without angina pectoris 05/31/2020 CKD [...] mRNA, LNP-s, No Pre serve, 2-Dose Series ([employer]) 08/15/2021,01/31/2021,01/03/2021 COVID-19, LNP-s, No Preserve , Ruslan-sucrose, Ages 12+ (Pfizer) 03/19/2022 COVID-19, MRNA-LNP, 23-24, P F, 30 MCG/0.3 mL, 12 YRS AND ABOVE, IM ([employer] [facility]) 10/25/2023 Covid-19, Mrna, Lnp-s, Pf, B ivalent, 30 Mcg, IM, 12 yrs and above (Pfizer) 2022 Pneumococcal Conjugate Vacc, 13 Valent (Prevnar) 01/21/2016 Pneumococcal Conjugate Vacci ne, 20-valent ([id number]) 07/19/2023 Pneumococcal Polysaccharide PPV23 (Pneumovax) 01/13/2011 RSV [...] as of this encounter Progress Notes * Vannessa Cameron MD - 07/31/2024 7:21 PM EDT Head [place] [address] Name: Kennedy Davis : 1945 08/02/2024 Tumor Board Treatment Recommendations - Otolaryngology Head and Neck Tumor Board Diagnosis: Cutaneous SCCa (left neck) Treatment: None HPI:?Kennedy Davis is a 78 year old male who presented to dermatology clinic with left neck mass. The patient is being presented for pathology and imaging review, as well as additional tumor board recommendations. Past Medical History: Past Medical History: Diagnosis Date Abdominal aortic aneurysm (AAA) without rupture (HCC) 07/11/2015 10/25/16: 3.78cm - repeat 1 yr 01/27/16: US: 3.87cm AAA - repeat 6 months 07/11/15: sts he had an US in the past - will check records Acute pancreatitis 03/09/2018 LIZZ (acute kidney injury) ([facility]) 06/26/2018 Aspergillosis ([facility]) 07/17/2019 history of Aspergillosis on the note on 3.[address] and AMP ATN (acute tubular necrosis) ([facility]) Bilateral pneumonia 08/08/2019 Acute, resolved? 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 Hypoglycemia associated with type 2 diabetes mellitus ([facility]) 07/21/2019 Moderate protein-calorie malnutrition ([facility]) 01/06/2021 Protein-calorie malnutrition ([facility]) 06/23/2019 Pure hypercholesterolemia Sepsis ([facility]) acute Severe malnutrition ([facility]) 02/27/2018 Stage II pressure ulcer of left buttock ([facility]) 02/06/2022 Tinea cruris 09/28/2017 Unspecified essential hypertension Uveitis OS Past Surgical History: Past Surgical History: Procedure Laterality Date ANESTH, [...] performed by Yudelka Hopkins DO at ENDOSCOPY [facility] COLONOSCOPY, DIAGNOSTIC (RECTUM) 01/05/2018 diverticulosis sigmoid colon/internal hemorrhoids/recall 5 years/COLONOSCOPY FLEXIBLE PROXIMAL DIAGNOSTIC performed by Farrukh Gilliam MD at ENDOSCOPY [facility] EGD, FLEXIBLE, DIAGNOSTIC N/A 01/05/2018 hiatal hernia/normal/ESOPHAGOGASTRODUODENOSCOPY [...] Jonathan Correia DO at OR [facility] Social History: Social History Socioeconomic History Marital status: Spouse name: Karen Number of children: 4 Years of education: 10 Highest education level: Not on file Occupational History 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 (Household - for ages 0-17 years): Not on file Social Connections: Socially Integrated (01/31/2024) Social Connections How often do you feel lonely or isolated from those around you? (Adult - for ages 18 years and over): Never Housing Stability: Low Risk (03/18/2024) Housing Stability Do you currently live in a senior care or have no steady place to sleep [...] - for ages 18 years and over): Not on file Are you (or your family) homeless or worried that you might be in the future? (Household - for ages0-17 years): Not on file Physical Examination: 07/26/24 The patient's skin is remarkable for: Left neck: 8.4 cm x 4.5 cm pink plaque with surrounding satellite papules Imaging: MRI neck without contrast 07/19/24 1. Limited exam due to lack of intravenous contrast and patient's condition. Within the limitation of exam, again demonstrated is a large cutaneous/subcutaneous lesion centered in the left lateral neck soft tissues, measuring up to 4.9 x 1.7 x 2.7 cm (AP x TR x CC), and abutting, with concern for possible invasion of, the adjacent sternocleidomastoid muscle. 2. No overtly suspicious, cystic, or pathologically enlarged lymph nodes in the neck. CT chest 04/10/24 1. Improved aeration with resolution of previously seen ground-glass infiltrates 2. Stable micro nodules. Continued routine surveillance recommended 3. Cholelithiasis. Pathology: 07/26/24 Pending A.left neck: Mohs debulk of squamous cell carcinoma, peripheral/satellite lesions suspicious for intransit mets, PNI noted on Mohs layers 06/27/24 Final Diagnosis A. Skin, L neck, shave: Squamous cell carcinoma, moderately differentiated type at 1421 Clinical History See Order Comments Order Comments 2.5 cm rapidly growing skin colored plaque on L neck. Pre-op Dx: KA/SCC. Shave Impression: Kennedy Davis is a 78 year old male with cutaneous SCCa (left neck). Perineural invasion noted on MOHS layers. There is possible involvement of the SCM. Consensus on Recommendations: After multidisciplinary discussion, the official tumor board recommendation was for re resection, neck dissection, reconstruction with flap. Multi-disciplinary Team: The patient was discussed today along with members of the multidisciplinary head and neck tumor conference including representatives from Otolaryngology (Dr. Osobrne, Dr. Aldridge, Dr. Tovar, Dr. Arredondo, Dr. Cisneros), Pathology (Dr. Lopez), Radiation Oncology (Dr. Ward, Dr. Bowers), Oral Surgery (Dr. Chung) and Medical Oncology (Dr. Juares, Dr. Petty). The nature of the patient's condition was discussed at length. Attending: MD Vannessa Carpio MD Otolaryngology Resident Associated attestation - Lexie Aldridge MD - 08/03/2024 9:21 AM EDT I have discussed the patient's management with the medical trainee and agree with the note. Please refer to the documented findings and plan of care. This patient's visit today consisted of an evaluation. I was present and confirmed the findings of the history and exam. Lexie Aldridge MD documented in this encounter Plan of Treatment Upcoming Encounters Date Type Department Care Team (Late st Contact Info) Description 08/09/2024 12:30 PM EDT Appointment Radiology, [address] [id number] 08/14/2024 11:00 AM EDT Office Visit Nephrology, [address] [address] Keisha Gunn MD [address] [place] [address] 08/21/2024 2:00 PM EDT [facility] [phone] Fuentes Ashton MD [facility] [place] [address] 12/21/2024 1:30 PM EST Office Visit Dermatology, [address] [place] [address] [place] [address] Malaika Guzman PA-C [address] [facility] [address] 01/22/2025 1:30 PM EDT PulmDiagnostic Pulmonary Function Lab [facility] [place] [address] [place] [address] [address], [address] [place] [address] 01/22/2025 2:00 PM EDT Office Visit Pulmonary Medicine [facility] [place] [address] [place] [address] [phone] Dominguez Aguilar MD [address] [place] [address] 02/05/2025 10:00 AM EDT Office Visit Rheumatology, [address] [address] Rafael Hernandez PA-C [address] [employer] [facility] [place] [address] Scheduled Procedures Name Priority Associated Diagnoses Date/Ti [...] 08/02/2024 01/31/2024, 1112/2022, 05/18/2023, Additional history exists GFR 01/25/2025 07/28/2024, 0 02/2024, 06/09/2024, Additional history exists TSH 01/30/2025 [...] this encounter Medical Devices Implanted Type Area Rail Track Maintainer Device Identifier Shelf Expiration Date Model / Serial / Lot Mesh Perfix Plug Lg [id number] - [id number] Implanted:Qty: 1 on 02/07/2019 by Jonathan Correia DO at OR [facility] Right: Groin CR BARD : DAVOL 09/04/2023 [id number] / / [id number] documented as of this encounter Advance Directives Documents on File Type Date Recorded 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
--- OUTSIDE RECORDS SUMMARY | 2024-09-30 18:18 | External Medical Summary | Summary of Care ---
Author Name Unknown Organization [facility] Address [address] [facility] [place] [address] Phone [phone] Care Team Providers Care Snuff Maker Name Role Phone Fuentes Ashton MD Primary Care Provider [phone] [phone] Reason for Visit * Reason Onset Date Comments Advice 07/26/2024 Encounter Details Date Type Department Care Team (Late st Contact Info) Description 07/26/2024 Telephone Cardiology, [place] [address] [place] [phone] Harmony Paez PA-C [address] [place] [phone] Advice Allergies Active Allergy Reactions Criticality Noted Date Comments Aztreonam Hives Medium 10/11/2019 Cephalosporins Rash 05/24/2017 Chlorhexidine Hives,Rash 01/02/2022 Ciprofloxacin Diarrhea Medium 01/28/2015 Iodinated Contrast Media Abdominal pain High 019 Acute kidney failure Levofloxacin Rash Low 07/28/2019 documented as of this encounter (statuses as of 08/02/2024) Medications Medication Sig Dispensed Refills Start Date [...] Release (PriLOSEC)Indicatio ns:Gastroesophageal reflux disease without esophagitis,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 IPMN (intraductal papillary mucinous neoplasm) 0 03/09/2018 Overview: 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 Steroid-induced [...] as of this encounter (statuses as of 08/02/2024) Resolved Problems Problem Noted Date Diagnosed Date [...] chronic kidney disease 08/03/2023 08/03/2023 Atherosclerosis of [place] co ronary artery without angina pectoris 02/01/2023 [...] 05/31/2020 Hypertensive heart disease w [facility] heart failure and stage 5 chronic [...] AMP Hypertensive heart disease w [facility] heart failure and stage 3 chronic [...] as of this encounter (statuses as of 08/02/2024) Immunizations Name Administration Dates Next Due COVID-19 mRNA, LNP-s, No Pre serve, 2-Dose Series ([employer]) 08/15/2021,01/31/2021,01/03/2021 COVID-19, LNP-s, No Preserve , Ruslan-sucrose, Ages 12+ (Pfizer) 03/19/2022 COVID-19, MRNA-LNP, 23-24, P F, 30 MCG/0.3 mL, 12 YRS AND ABOVE, IM ([facility]) 10/25/2023 Covid-19, Mrna, Lnp-s, Pf, B ivalent, 30 Mcg, IM, 12 yrs and above ([employer]) 2022 Pneumococcal Conjugate Vacc, 13 Valent (Prevnar) 01/21/2016 Pneumococcal Conjugate Vacci ne, 20-valent ([id number]) 07/19/2023 Pneumococcal Polysaccharide PPV23 (Pneumovax) 01/13/2011 RSV [...] EDT Does patient need formal cardiac clearance? [id number] score of 4. May hold Eliquis 48 hours prior to procedure and resume once hemodynamically stable Harmony Paez PA-C * Telephone Encounter - Rehana Bautsita OSA - 08/01/2024 11:35 AM EDT Person calling: catracho ENT Relationship to patient: provider Phone/Fax to return call: [place] TE to [place] [phone] Reason for call(brief): Eliquis hold Pharmacy: na [...] EDT Person calling: Kaylie Relationship to patient: [facility] Surgery Phone/Fax to return call: [phone] Reason for call(brief): advice Pharmacy: N/A Provider [...] Otolaryngology/Head & Neck/Facial Plastic Surgery [address] [place] [facility] [place] [address] Lexie Aldridge MD [address] [place] [address] 08/09/2024 12:30 PM EDT Appointment Radiology, [address] [address] 08/14/2024 11:00 AM EDT Office Visit Nephrology, [address] [address] Keisha Gunn MD [address] [place] [address] 08/21/2024 2:00 PM EDT Office Visit [address] [place] [phone] Fuentes Ashton MD 21 [facility] [place] [id number] 12/21/2024 1:30 PM EST Office Visit Dermatology, [address] [place] [address] [place] [address] Malaika Guzman PA-C [address] [place] [address] 01/22/2025 1:30 PM EDT PulmDiagnostic Pulmonary Function Lab [facility] [address] [facility] [place] [address] [address], [address] [place], [place] [address] 01/22/2025 2:00 PM EDT Office Visit Pulmonary Medicine [facility] [place] [address] [place] [phone] Dominguez Aguilar MD [address] [facility] [address] 02/05/2025 10:00 AM EDT Office Visit Rheumatology, [facility] 400 [facility], [place] [address] Rafael Hernandez, [place] [address] [place] [address], [place] [address] Scheduled Procedures Name Priority Associated Diagnoses Date/Ti [...] 08/02/2024 01/31/2024, 12/2022, 05/18/2023, Additional history exists GFR 01/25/2025 [...] this encounter Medical Devices Implanted Type Area Recycle Coordinator Device Identifier Shelf Expiration Date Model / Serial / Lot Mesh Perfix Plug Lg [id number] - [id number] Implanted:Qty: 1 on 02/07/2019 by Jonathan Correia DO at [facility] Right: Groin CR BARD : DAVOL 09/04/2023 [id number] / / [id number] documented as of this encounter Visit Diagnoses Diagnosis Paroxysmal atrial fibrillation (HCC)- Primary Atrial fibrillation documented in this encounter Advance Directives Documents on File Type Date Recorded 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
--- OUTSIDE RECORDS SUMMARY | 2024-09-30 18:18 | External Medical Summary | Summary of Care ---
Author Name Unknown Organization [facility] Address [address] [facility] [address] Phone [phone] Care Team Providers Care Watch Guard Gate Name Role Phone Fuentes Ashton MD Primary Care Provider [phone] [phone] Reason for Visit * Reason Onset Date Comments Advice 07/26/2024 Encounter Details Date Type Department Care Team (Late st Contact Info) Description 07/26/2024 Telephone Cardiology, [place] [address] [place] [phone] Harmony Paez PA-C [address] [place] [phone] Advice Allergies Active Allergy Reactions Criticality Noted [...] Delayed Release (PriLOSEC)Indicatio ns:Gastroesophageal reflux disease without esophagitis,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 1 Each 11 07/06/2024 Active Albuterol Sulfate (2.5 MG/3ML) 0.083% Inhalation Nebulization Solution (Proventil)Indicati ons:COPD, group C, by GOLD 2017 classification ([facility]) Inhale 1 Vial via nebulizer every [...] from 2018 Atherosclerotic heart diseas e of [place] coronary artery without angina pectoris 05/31/2020 CKD (chronic kidney disease) stage 4, GFR 15-29 ml/min 07/17/2019 Chronic anticoagulation 04/03/2019 Vitamin D deficiency 11/17/2018 Senile osteoporosis 09/06/2018 Paroxysmal atrial fibrillation 07/08/2018 Last Assessment & Plan: Rate controlled on metoprolol Continue apixaban History of acute tubular necrosis 06/29/2018 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 IPMN (intraductal papillary mucinous neoplasm) 0 03/09/2018 Overview: 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 08/03/2023 08/03/2023 Atherosclerosis of [place] co ronary artery without angina pectoris 02/01/2023 [...] Cachexia 08/30/2019 05/31/2020 Hypertensive heart disease w [facility] heart failure and stage 5 chronic [...] PL and AMP Hypertensive heart disease w [facility] heart failure and stage 3 chronic [...] mRNA, LNP-s, No Pre serve, 2-Dose Series ([employer]) 08/15/2021,01/31/2021,01/03/2021 COVID-19, LNP-s, No Preserve , Ruslan-sucrose, Ages 12+ (Pfizer) 03/19/2022 COVID-19, MRNA-LNP, 23-24, P F, 30 MCG/0.3 mL, 12 YRS AND ABOVE, IM ([facility]) 10/25/2023 Covid-19, Mrna, Lnp-s, Pf, B ivalent, 30 Mcg, IM, 12 yrs and above ([employer]) 2022 Pneumococcal Conjugate Vacc, 13 Valent (Prevnar) 01/21/2016 Pneumococcal Conjugate Vacci ne, 20-valent ([id number]) 07/19/2023 Pneumococcal Polysaccharide PPV23 (Pneumovax) 01/13/2011 RSV [...] EDT Does patient need formal cardiac clearance? [id number] score of 4. May hold Eliquis 48 hours prior to procedure and resume once hemodynamically stable Harmony Paez PA-C * Telephone Encounter - Rehana Bautista OSA - 08/01/2024 11:35 AM EDT Person calling: catracho ENT Relationship to patient: provider Phone/Fax to return call: [place] TE to [place] [phone] Reason for call(brief): Eliquis hold Pharmacy: na [...] EDT Person calling: Kaylie Relationship to patient: [facility] Surgery Phone/Fax to return call: [phone] Reason for call(brief): advice Pharmacy: N/A Provider [...] Otolaryngology/Head & Neck/Facial Plastic Surgery [address] [place] [facility] [address] Lexie Aldridge MD [address] [place] [address] 08/09/2024 12:30 PM EDT Appointment Radiology, [address] [address] 08/14/2024 11:00 AM EDT Office Visit Nephrology, [address] [address] Keisha Gunn MD [address] [place] [address] 08/21/2024 2:00 PM EDT Office Visit [address] [place] [phone] Fuentes Ashton MD 21 [facility] [place] [phone] 12/21/2024 1:30 PM EST Office Visit Dermatology, [address] [place] [address] [place] [address] Malaika Guzman PA-C [address] [place] [address] 01/22/2025 1:30 PM EDT PulmDiagnostic Pulmonary Function Lab [facility] [address] [facility] [place] [address] [address], [address] S[address]i Thang [place], [place] [address] 01/22/2025 2:00 PM EDT Office Visit Pulmonary Medicine [facility] [place] [address] [place] [phone] Dominguez Aguilar MD [address] [facility] [address] 02/05/2025 10:00 AM EDT Office Visit Rheumatology, [facility] 400 [facility], [place] [address] Rafael Hernandez, [place] [address] [place] [address], [place] [address] Scheduled Procedures Name Priority Associated Diagnoses Date/Ti [...] this encounter Medical Devices Implanted Type Area Pile Driver Operator Device Identifier Shelf Expiration Date Model / Serial / Lot Mesh Perfix Plug Lg [id number] - [id number] Implanted:Qty: 1 on 02/07/2019 by Jonathan Correia DO at OR [facility] Right: Groin CR BARD : DAVOL 09/04/2023 [id number] / / [id number] documented as of this encounter Visit Diagnoses Diagnosis Paroxysmal atrial fibrillation (HCC)- Primary Atrial fibrillation documented in this encounter Advance Directives Documents on File Type Date Recorded 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
--- OUTSIDE RECORDS SUMMARY | 2024-09-30 18:19 | External Medical Summary | Summary of Care ---
Author Name Unknown Organization [facility] Address [address] [address] Phone [phone] Care Team Providers Care Supply Cataloguer Name Role Phone Fuentes Ashton MD Primary Care Provider [phone] Reason for Visit * Reason Onset Date Comments Advice 07/26/2024 Encounter Details Date Type Department Care Team (Late st Contact Info) Description 07/26/2024 Telephone Cardiology, [place] [address] [place] [phone] Harmony Paez PA-C [address] [place] Leo [phone] Advice Allergies Active Allergy Reactions Criticality Noted Date Comments Aztreonam Hives Medium 10/11/2019 Cephalosporins Rash 05/24/2017 Chlorhexidine Hives,Rash 01/02/2022 Ciprofloxacin Diarrhea Medium 01/28/2015 Iodinated Contrast Media Abdominal pain High 019 Acute kidney failure Levofloxacin Rash Low 07/28/2019 documented as of this encounter (statuses as of 08/01/2024) Medications Medication Sig Dispensed Refills Start Date [...] ns:Gastroesophageal reflux disease without esophagitis,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 1 Each 11 07/06/2024 Active Albuterol Sulfate (2.5 MG/3ML) 0.083% Inhalation Nebulization Solution (Proventil)Indicati ons:COPD, group C, by GOLD 2017 classification ([facility]) Inhale 1 Vial via nebulizer [...] as of this encounter (statuses as of 08/01/2024) Active Problems Problem Noted Date Diagnosed Date [...] from 2018 Atherosclerotic heart diseas e of [place] coronary artery without angina pectoris 05/31/2020 CKD (chronic kidney disease) stage 4, GFR 15-29 ml/min 07/17/2019 Chronic anticoagulation 04/03/2019 Vitamin D deficiency 11/17/2018 Senile osteoporosis 09/06/2018 Paroxysmal atrial fibrillation 07/08/2018 Last Assessment & Plan: Rate controlled on metoprolol Continue apixaban History of acute tubular necrosis 06/29/2018 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 IPMN (intraductal papillary mucinous neoplasm) 0 03/09/2018 Overview: MRI 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) use 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 Steroid-induced diabetes [...] as of this encounter (statuses as of 08/01/2024) Resolved Problems Problem Noted Date Diagnosed Date [...] chronic kidney disease 08/03/2023 08/03/2023 Atherosclerosis of [place] co ronary artery without angina pectoris 02/01/2023 [...] Cachexia 08/30/2019 05/31/2020 Hypertensive heart disease w [facility] heart failure and stage 5 chronic kidney [...] PL and AMP Hypertensive heart disease w [facility] heart failure and stage 3 chronic kidney [...] as of this encounter (statuses as of 08/01/2024) Immunizations Name Administration Dates Next Due COVID-19 mRNA, LNP-s, No Pre serve, 2-Dose Series (Appian) 08/15/2021,01/31/2021,01/03/2021 COVID-19, LNP-s, No Preserve , Ruslan-sucrose, Ages 12+ (Pfizer) 03/19/2022 COVID-19, MRNA-LNP, 23-24, P F, 30 MCG/0.3 mL, 12 YRS AND ABOVE, IM ([facility]) 10/25/2023 Covid-19, Mrna, Lnp-s, Pf, B ivalent, 30 Mcg, IM, 12 yrs and above (Appian) 2022 Pneumococcal Conjugate Vacc, 13 Valent (Prevnar) 01/21/2016 Pneumococcal Conjugate Vacci ne, 20-valent ([id number]) 07/19/2023 Pneumococcal Polysaccharide PPV23 (Pneumovax) 01/13/2011 RSV [...] encounter Miscellaneous Notes * Telephone Encounter - Rehana Bautista OSA - 08/01/2024 11:35 AM EDT Person calling: Pablo ENT Relationship to patient: provider Phone/Fax to return call: [place] lotus [phone] Reason for call(brief): Eliquis hold Pharmacy: na Provider Name:Harmonyserafin Germanmaylin Detailed message to office:Patient now needs a [...] EDT Person calling: Kaylie [facility]/Fax to return call: [phone] Reason for call(brief): advice Pharmacy: N/A Provider [...] Description 08/09/2024 12:30 PM EDT Appointment Radiology, [address] [address] 08/14/2024 11:00 AM EDT Office Visit Nephrology, [address] [place] [address] Keisha Gunn MD [address] [place] [address] 08/21/2024 2:00 PM EDT Office [facility] ([place], [place]) 21 [place] [phone] Fuentes Ashton MD 21 [place] [address] 12/21/2024 1:30 PM EST [facility] [address] [place] [address] Malaika Guzman PA-C 27 [place] [address] 01/22/2025 1:30 PM EDT PulmDiagnostic Pulmonary Function Lab [facility] [address] [facility] [place] [address] [address], [address] [facility] [place] [address] 01/22/2025 2:00 PM EDT Office Visit Pulmonary Medicine [facility] [address] [facility] [place] [phone] Dominguez Aguilar MD [address] [facility] [place] [address] 02/05/2025 10:00 AM EDT Office Visit Rheumatology, [address] [place] [address] Rafael Hernandez PA-C [address] [place] [address] Scheduled Procedures Name Priority Associated Diagnoses Date/Ti [...] this encounter Medical Devices Implanted Type Area Aerodynamicist Device Identifier Shelf Expiration Date Model / Serial / Lot Mesh Perfix Plug Lg [id number] - [id number] Implanted:Qty: 1 on 02/07/2019 by Jonathan Correia DO at OR [facility] Right: Lelo KBEEDE BARD : DAVOL 09/04/2023 [id number] / / [id number] documented as of this encounter Visit Diagnoses Diagnosis Paroxysmal atrial fibrillation (HCC)- Primary Atrial fibrillation documented in this encounter Advance Directives Documents on File Type Date Recorded 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 Adult Child Emergency Contact Care Teams Supply Cataloguer Relationship Specialty Start Date End Date Fuentes Ashton MD 21 M[place] [phone] PCP - General Family Medicine 01/30/22 documented as of this encounter
--- OUTSIDE RECORDS SUMMARY | 2024-09-30 18:19 | External Medical Summary | Summary of Care ---
Author Name Unknown Organization [facility] Address [address] [place] [address] Phone [phone] Care Team Providers Care Heating Element Winder Name Role Phone Fuentes Ashton MD Primary Care Provider [phone] Reason for Visit * Reason Comments Research Screening Encounter Details Date Type Department Care Team (Late st Contact Info) Description 08/01/2024 Documentation Hematology Oncology [facility] [address] [place] [address] [facility] Office Hem Onc [address] [place] [address] Allergies Active Allergy Reactions Criticality [...] Delayed Release (PriLOSEC)Indicatio ns:Gastroesophageal reflux disease without esophagitis,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 14 Capsule 07/26/2024 08/02/20 24 Active Doxycycline Monohydrate 100 MG Oral [...] from 2018 Atherosclerotic heart diseas e of [place] coronary artery without angina pectoris 05/31/2020 CKD [...] chronic kidney disease 08/03/2023 08/03/2023 Atherosclerosis of [place] co ronary artery without angina pectoris 02/01/2023 [...] mRNA, LNP-s, No Pre serve, 2-Dose Series (Open Wager) 08/15/2021,01/31/2021,01/03/2021 COVID-19, LNP-s, No Preserve , Ruslan-sucrose, Ages 12+ (Open Wager) 03/19/2022 COVID-19, MRNA-LNP, 23-24, P F, 30 MCG/0.3 mL, 12 YRS AND ABOVE, IM ([facility]) 10/25/2023 Covid-19, Mrna, Lnp-s, Pf, B ivalent, 30 Mcg, IM, 12 yrs and above (Open Wager) 2022 Pneumococcal Conjugate Vacc, 13 Valent (Prevnar) 01/21/2016 Pneumococcal Conjugate Vacci ne, 20-valent ([id number]) 07/19/2023 Pneumococcal Polysaccharide PPV23 (Pneumovax) 01/13/2011 RSV [...] as of this encounter Miscellaneous Notes * Research Note - Teressa Price RN - 08/01/2024 12:39 PM EDT At the request of Dr. Aldridge and [facility], this patient has been screened for possible clinical trials options for their diagnosis. There are no clinical trials available at this time for this patient with diagnosis. Patient screened by Teressa Price RN CRCII Teressa Price RN CRCII Clinical Research Coordinator II [facility] [email or web address] [phone] . documented in this encounter Plan of Treatment Upcoming Encounters Date Type Department Care Team (Late st Contact Info) Description 08/02/2024 2:30 PM EDT Office Visit Otolaryngology/Head & Neck/Facial Plastic Surgery [address] [place] [facility] [place] [address] Lexie Aldridge MD [address] [place] [address] 08/09/2024 12:30 PM EDT Appointment Radiology, [address] [address] 08/14/2024 11:00 AM EDT Office Visit Nephrology, [address] [address] Keisha Gunn MD 400 [place] [address] 08/21/2024 2:00 PM EDT [facility] Visit [facility] [phone] Fuentes Ashton MD 21 [place] [address] 12/21/2024 1:30 PM EST Office Visit Dermatology, [place] [address] [place] [address] Maliaka Guzman PA-C 27 [place] [address] 01/22/2025 1:30 PM EDT PulmDiagnostic Pulmonary Function Lab [place] [address] [place] [address] [address], [address] [place] [address] 01/22/2025 2:00 PM EDT Office Visit Pulmonary Medicine [facility] [address] [place] [phone] Dominguez Aguilar MD [address] [place] [address] 02/05/2025 10:00 AM EDT Office Visit Rheumatology, [address] [address] Rafael Hernandez PA-C [facility] [address] Scheduled Procedures Name Priority Associated Diagnoses Date/Ti [...] this encounter Medical Devices Implanted Type Area Machine Loader Device Identifier Shelf Expiration Date Model / Serial / Lot Mesh Perfix Plug Lg [id number] - [id number] Implanted:Qty: 1 on 02/07/2019 by Jonathan Correia DO at OR [facility] Right: Groin CR BARD : DAVOL 09/04/2023 [id number] / / [id number] documented as of this encounter Advance Directives Documents on File Type Date Recorded Patient Kick Plate Installer Expl anation Advance Directives and Living Will [...] [facility] Adult Child Emergency Contact Care Teams Heating Element Winder Relationship Specialty Start Date End Date Fuentes Ashton MD 21 [place] [phone] PCP - General Family Medicine 01/30/22 documented as of this encounter
--- OUTSIDE RECORDS SUMMARY | 2024-09-30 18:19 | External Medical Summary | Summary of Care ---
Author Name Unknown Organization [facility] Address [address] [place] [address] Phone [phone] Care Team Providers Care Group Home Paraprofessional Name Role Phone Fuentes Ashton MD Primary Care Provider [phone] Reason for Visit * Reason Comments Mohs Surgery L neck, SCC * Evaluate & Treat - Unlimited Visits (Within 30 days (routine)) - Pending Review Specialty Diagnoses / Procedures Referred By Ayanna rios Referred To Contact Dermatology Diagnoses SCC (squamous cell carcinoma), scalp/neck Malaika Guzman PA-C [address] [place] [address] Referral ID Status Reason Start Date Expiration Date Visits Requested Visits Authorized [id number] Pending Review Specialty Services Required 07/03/[phone] Encounter Details Date Type Department Care Team (Late st Contact Info) Description 07/26/2024 7:30 AM EDT Office Visit MOHS Surgery [facility] [address] [place] [address] Supriya Fernandes MD [address] [place] [address] Squamous cell carcinoma of neck* Allergies Active Allergy Reactions Criticality [...] Delayed Release (PriLOSEC)Indicatio ns:Gastroesophageal reflux disease without esophagitis,FCI (current) use of [...] group C, by GOLD 2017 classification ([facility]) Inhale 1 Vial via nebulizer [...] for 7 days. 14 Capsule 07/26/2024 08/02/20 Active Hospital, Clinic, or Other Facility Administered Medication Ordered Dose Route Frequency Start Date End Date Status doxycycline tab 100 mgIndications:Squamous cell carcinoma of neck 100 mg OR ONCE 07/26/2024 07/26/2024 Ended documented as of this encounter (statuses as [...] from 2018 Atherosclerotic heart diseas e of [place] coronary artery without angina pectoris 05/31/2020 CKD (chronic kidney disease) stage 4, GFR 15-29 ml/min 07/17/2019 Chronic anticoagulation 04/03/2019 Vitamin D deficiency 11/17/2018 Senile osteoporosis 09/06/2018 Paroxysmal atrial fibrillation 07/08/2018 Last Assessment & Plan: Rate controlled on metoprolol Continue apixaban History of acute tubular necrosis 06/29/2018 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 IPMN (intraductal papillary mucinous neoplasm) 0 03/09/2018 Overview: MRI 02/23 [facility] (current) use 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 08/03/2023 08/03/2023 Atherosclerosis of [place] co ronary artery without angina pectoris 02/01/2023 [...] mRNA, LNP-s, No Pre serve, 2-Dose Series (Save22) 08/15/2021,01/31/2021,01/03/2021 COVID-19, LNP-s, No Preserve , Ruslan-sucrose, Ages 12+ (Pfizer) 03/19/2022 COVID-19, MRNA-LNP, 23-24, P F, 30 MCG/0.3 mL, 12 YRS AND ABOVE, IM ([facility]) 10/25/2023 Covid-19, Mrna, Lnp-s, Pf, B ivalent, 30 Mcg, IM, 12 yrs and above (Pfizer) 2022 Pneumococcal Conjugate Vacc, 13 Valent (Prevnar) 01/21/2016 Pneumococcal Conjugate Vacci ne, 20-valent ([id number]) 07/19/2023 Pneumococcal Polysaccharide PPV23 (Pneumovax) 01/13/2011 RSV [...] No 01/31/2024 Does the household have a tuba city regional health care corporationlar source of income? (Household - for ages [...] Progress Notes * Supriya Fernandes MD - 07/26/2024 7:30 AM EDT Pablo Mohs Surgery Note (See separate transcribed operative note for further detail) History: Kennedy Davis is a 78 year old patient seen at the request of Malaika Guzman PA-C for evaluation and management of the following lesion: A. Skin, L neck, shave: Squamous cell carcinoma, moderately differentiated type Patient problem list reviewed. Patient medication/allergy lists reviewed. Anticoagulants: Apixaban (Eliquis) Examination: Kennedy Davis is alert, oriented and appears well and in no distress. The patient's skin is remarkable for: Left neck: 8.4 cm x 4.5 cm pink plaque with surrounding satellite papules Impression/Plan: Squamous cell carcinoma, moderately differentiated type - left neck MMS Mohs debulk sent for permanent sections given large size of tumor Standard Mohs micrographic technique was utilized to treat this tumor. Microscopic examination of the specimen allowed the Mohs surgeon, whose dual role is to function as both surgeon and pathologist, to precisely identify the location of any remaining tumor or ascertain that the tissue margins were free of tumor. This process of excision of remaining tumor, mapping, and histologic exam was repeated until the tumor was excised completely. Patient identified, procedure verified, site identified and verified with the patient. Time out completed. Surgical removal of the lesion discussed with the patient (risks and benefits, including possibility of scarring, infection, bleeding, recurrence or potential for further treatment). I have specifically identified the site with the patient. I have discussed the fact that the patient will have a scar after the procedure regardless of granulation or repair with sutures. I have discussed that the repair options can range from granulation in some cases to linear or curvilinear closures to larger flaps or grafts. There is a risk of injury to nerves causing temporary or permanent numbness or the inability to move muscles fully. Discussed risk of spinal accessory nerve injury (which could result in pain and weakness of shoulder). Questions answered and verbal and written consentwas obtained. 2 stage(s) Anesthetic: 0.05% lidocaine with 1:100,000 epinephrine. Repair: Purse-string (using 3-0 Monocryl suture) (see separate operative report for details) (no charge for purse string) Absorbable and non-absorbable sutures *2 stages of Mohs surgery completed today. Margins still positive. Extensive intraneural and perineural invasion (of large caliber nerves) noted on Mohs sections. Tumor invasive into sternocleidomastoid muscle. Will resume Mohs surgery 07/31/2024. Marking sutures placed and purse string placed to aid with hemostasis. Doxycycline 100 mg administered today Prescribed doxycycline 100 mg twice a day x 7 days (to be started tonight or tomorrow morning) Advised patient to hold Eliquis until instructed to resume (see telephone encounter, received clearance to hold Eliquis for 2 days. CBC to be drawn in 2 days) Wound care was discussed verbally, demonstrated and printed wound instructions given as well as wound care supplies. Patient instructed to call with questions or concerns. Personal contact information provided. Follow-up: 2 days Supriya Fernandes MD Associate, Mohs Micrographic Surgery & Dermatologic Surgery 07/26/2024 documented in this encounter Nursing Notes * Leandra Boswell LPN - 07/26/2024 7:15 AM EDT Chief Complaint Patient presents with Mohs Surgery L neck, SCC Referral Doctor: Thomas Hypertension History: Yes, refer to medication information for treatment. Diabetes History: No Thyroid History: Yes, refer to medication information for treatment. Bleeding Tendency: Yes, refer to medication information for treatment. Artificial Valve or Joint: no Pacemaker: no Defibrillator: no Hepatitis/HIV Exposure: No Smoking: no Consent signed yes documented in this encounter Plan of Treatment Upcoming Encounters Date Type Department Care Team (Late st Contact Info) Description 08/02/2024 2:30 PM EDT Office Visit Otolaryngology/Head & Neck/Facial Plastic Surgery [address] [place] [address] Lexie Aldridge MD [address] [place] [address] 08/09/2024 12:30 PM EDT Appointment Radiology, [address] [place] [address] 08/14/2024 11:00 AM EDT Office Visit Nephrology, [address] [place] [address] Keisha Gunn MD [address] [place] [address] 08/21/2024 2:00 PM EDT Office Visit [facility] 21 [place] [phone] Fuentes Ashton MD 21 [place] [address] 12/21/2024 1:30 PM EST Office Visit Dermatology, [facility] 27 [facility] 140 [place] [address] Malaika Guzman PA-C 27 [facility] [place] [address] 01/22/2025 1:30 PM EDT PulmDiagnostic Pulmonary Function Lab [facility] [address] [place] [address] [address], [address] [facility] [place] [address] 01/22/2025 2:00 PM EDT Office Visit Pulmonary Medicine [facility] [address] [place] [phone] Dominguez Aguilar MD [address] [facility] [place] [address] 02/05/2025 10:00 AM EDT Office Visit Rheumatology, [address] [place] [address] Rafael Hernandez PA-C [address] [place] [address] Pending Results Name Type Priority Associated Diagnoses Date /Time SURGICAL PATHOLOGY Pathology Routine Squamous cell carcinoma of neck 07/26/2024 4:07 PM EDT Scheduled Procedures Name Priority Associated [...] this encounter Medical Devices Implanted Type Area Software Program Manager Device Identifier Shelf Expiration Date Model / Serial / Lot Mesh Perfix Plug Lg [id number] - [id number] Implanted:Qty: 1 on 02/07/2019 by Jonathan Correia, at OR [facility] Right: Groin CR BARD : DAVOL 09/04/2023 [id number] / / [id number] documented as of this encounter Visit Diagnoses Diagnosis Squamous cell carcinoma of neck- Primary Malignant neoplasm of head, face, and neck documented in this encounter Administered Medications Inactive Administered Medications - up to 3 most recent administrations Medication Order MAR Action Action Date Dose Rate Site doxycycline tab 100 mg 100 mg, Oral, ONCE, On Wed07/26/24 at 1600, For 1 dose Given 07/26/2024 4:30 PM EDT 100 mg documented in this encounter Advance Directives Documents on File Type Date Recorded Patient Manager Sterile Expl anation Advance Directives and Living Will [...] Hospital Adult Child Emergency Contact Care Teams Group Home Paraprofessional Relationship Specialty Start Date End Date Fuentes Ashton MD 21 [place] [address] PCP - General Family Medicine 01/30/22 documented as of this encounter
--- OUTSIDE RECORDS SUMMARY | 2024-09-30 18:19 | External Medical Summary | Summary of Care ---
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 14 Capsule 07/26/2024 08/02/20 Active Doxycycline Monohydrate 100 MG Oral Capsule Take 1 Capsule by mouth in the morning and 1 Capsule before bedtime. Do all this for 14 days. 28 Capsule 07/31/2024 08/14/20 Active documented as of this encounter (statuses [...] from 2019 Atherosclerotic heart diseas e of [place] coronary artery without angina pectoris 05/31/2020 CKD [...] chronic kidney disease 08/03/2023 08/03/2023 Atherosclerosis of [place] co ronary artery without angina pectoris 02/01/2023 [...] mRNA, LNP-s, No Pre serve, 2-Dose Series ([employer]ix) 08/15/2021,01/31/2021,01/03/2021 COVID-19, LNP-s, No Preserve , Ruslan-sucrose, Ages 12+ (Pfizer) 03/19/2022 COVID-19, MRNA-LNP, 23-24, P F, 30 MCG/0.3 mL, 12 YRS AND ABOVE, IM ([facility]) 10/25/2023 Covid-19, Mrna, Lnp-s, Pf, B ivalent, 30 Mcg, IM, 12 yrs and above (Pfizer) 2022 Pneumococcal Conjugate Vacc, 13 Valent (Prevnar) 01/21/2016 Pneumococcal Conjugate Vacci ne, 20-valent ([id number]) 07/19/2023 Pneumococcal Polysaccharide PPV23 (Pneumovax) 01/13/2011 RSV [...] as of this encounter Progress Notes * Karina Haddad RN - 08/01/2024 12:37 PM EDT Patient is a direct referral from [facility] (Dr. Fernandes). Dr. Aldridge aware of patient, positive margins,and large open wound defect. Called patient to offer appointment with Dr. Aldridge 08/02/24 at 2:30 pmin [place]. Spoke with patient's Karen who accepted appointment. Directions to clinic provided. Karina Haddad PhD RN entry level staff accountant Otolaryngology * Joycelyn Jackson PA-C - 08/01/2024 11:13 AM EDT Does patient need to be seen?: Yes Modality: Office visit Urgency: Within 10 days (routine) Please make appointment with Dr. Aldridge, per [facility] Dr. 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 Cleared periphery with Mohs micrographic surgery. Communicated with Dr. Aldridge re positive deep margins. Referral for further surgical removal/neck dissection/reconstruction. Dr. Aldridge aware of case. [facility] [facility] Communicated with patient on Date (mm/dd/yyyy): 07/31/2024 at Time ([facility]): 1642 documented in this encounter Plan of Treatment Upcoming Encounters Date Type Department Care Team (Late st Contact Info) Description 08/02/2024 2:30 PM EDT Office Visit Otolaryngology/Head & Neck/Facial Plastic Surgery [address] [place] [facility] [place] [place] [address] Lexie Aldridge MD [address] [place] [address] 08/09/2024 12:30 PM EDT Appointment Radiology, [address] [place] [address] 08/14/2024 11:00 AM EDT Office Visit Nephrology, [address] [place] [phone] Keisha Gunn MD [address] [place] [address] 08/21/2024 2:00 PM EDT Office Visit [address] [place] [phone] Fuentes Ashton MD 21 [facility] [place] [address] 12/21/2024 1:30 PM EST [facility] [address] [place] [address] Malaika Guzman PA-C [address] [place] [address] 01/22/2025 1:30 PM EDT PulmDiagnostic Pulmonary Function Lab [facility] [address] [facility] [place] [address] [address], [address] [facility] [place] [address] 01/22/2025 2:00 PM EDT Office Visit Pulmonary Medicine [facility] [address] [facility] [place] [phone] Dominguez Aguilar MD [address] [place] [facility] [address] 02/05/2025 10:00 AM EDT Office Visit Rheumatology, [address] [place] [address] Rafael Hernandez, PAJackiC [address] [place] [address], [place] [address] Scheduled Procedures Name Priority Associated Diagnoses Date/Ti [...] this encounter Medical Devices Implanted Type Area Painter And Decorator Device Identifier Shelf Expiration Date Model / Serial / Lot Mesh Perfix Plug Lg [id number] - [id number] Implanted:Qty: 1 on 02/07/2019 by Jonathan Correia DO at OR [facility] Right: Lelo KEBEDE BARD : DAVJOSE 09/04/2023 [id number] / / [id number] documented as of this encounter Advance Directives Documents on File Type Date Recorded Patient Medical Scientific Liaison Expl anation Advance Directives and Living Will [...] verbally by patient or by statute hierarchy) [facility] Adult Child Emergency Contact Care Teams Police Captain Relationship Specialty Start Date End Date Fuentes Ashton MD 21 [place] [phone] PCP - General Family Medicine 01/30/22 documented as of this encounter
--- OUTSIDE RECORDS SUMMARY | 2024-09-30 18:19 | External Medical Summary | Summary of Care ---
Author Name Unknown Organization [facility] Address [address] [facility] [place] [address] Phone [phone] Care Team Providers Care Boilermaker Fitter Name Role Phone Fuentes Ashton MD Primary Care Provider [phone] Reason for Visit * Reason Onset Date Comments Advice 07/26/2024 Encounter Details Date Type Department Care Team (Late st Contact Info) Description 07/26/2024 Telephone Cardiology, [place] [address] [place] [phone] Harmony Paez PA-C [address] [place] [phone] Advice Allergies Active Allergy Reactions Criticality Noted [...] Aerosol Powder Breath ActivatedIndication s:COPD, moderate ([facility]) Inhale 2 Puffs [...] from 2018 Atherosclerotic heart diseas e of [place] coronary artery without angina pectoris 05/31/2020 CKD [...] chronic kidney disease 08/03/2023 08/03/2023 Atherosclerosis of [place] co ronary artery without angina pectoris 02/01/2023 [...] mRNA, LNP-s, No Pre serve, 2-Dose Series (XATA) 08/15/2021,01/31/2021,01/03/2021 COVID-19, LNP-s, No Preserve , Ruslan-sucrose, Ages 12+ (Pfizer) 03/19/2022 COVID-19, MRNA-LNP, 23-24, P F, 30 MCG/0.3 mL, 12 YRS AND ABOVE, IM ([facility]) 10/25/2023 Covid-19, Mrna, Lnp-s, Pf, B ivalent, 30 Mcg, IM, 12 yrs and above (XATA) 2022 Pneumococcal Conjugate Vacc, 13 Valent (Prevnar) 01/21/2016 Pneumococcal Conjugate Vacci ne, 20-valent ([id number]) 07/19/2023 Pneumococcal Polysaccharide PPV23 (Pneumovax) 01/13/2011 RSV [...] encounter Miscellaneous Notes * Telephone Encounter - Harmony Paez PA-C - 08/01/2024 1:02 PM EDT Does patient need formal cardiac clearance? [id number] score of 4. May hold Eliquis 48 hours prior to procedure and resume once hemodynamically stable Harmony Paez PA-C * Telephone Encounter - Rehana Bautista OSA - 08/01/2024 11:35 AM EDT Person calling: [facility] Relationship to patient: provider Phone/Fax to return call: [place] [phone] Reason for call(brief): Eliquis hold Pharmacy: na [...] Person calling: Kaylie Relationship to patient: [facility] Phone/Fax to return call: [phone] Reason for call(brief): advice Pharmacy: N/A Provider [...] Otolaryngology/Head & Neck/Facial Plastic Surgery [address] [place] [address] Lexie Aldridge MD [address] [place] [address] 08/09/2024 12:30 PM EDT Appointment Radiology, [facility] [address] [facility] [place] [address] 08/14/2024 11:00 AM EDT Office Visit Nephrology, [facility] [address] [place] [address] Keisha Gunn MD [address] [place] [address] 08/21/2024 2:00 PM EDT Office Visit [facility] 21 [facility] [place] [phone] Fuentes Ashton MD 21 [place] [address] 12/21/2024 1:30 PM EST Office Visit Dermatology, Ahmet Rowell [address] [facility] [address] [place] [address] Malaika Guzman PA-C [address] [place] [address] 01/22/2025 1:30 PM EDT PulmDiagnostic Pulmonary Function Lab [facility] [address] [facility] [place] [address] [address], [address] [place] [address] 01/22/2025 2:00 PM EDT Office Visit Pulmonary Medicine [facility] [address] [place] [phone] Dominguez Aguilar MD [address] [place] [address] 02/05/2025 10:00 AM EDT Office Visit Rheumatology, [address], [place] [address] Rafael Hernandez PA-C [address] [place] [address], [place] [address] Scheduled Procedures Name Priority Associated Diagnoses Date/Ti [...] this encounter Medical Devices Implanted Type Area Radar Operator Device Identifier Shelf Expiration Date Model / Serial / Lot Mesh Perfix Plug Lg [id number] - [id number] Implanted:Qty: 1 on 02/07/2019 by Jonathan Correia DO at OR [facility] Right: Groin CR BARD : DAVOL 09/04/2023 [id number] / / [id number] documented as of this encounter Visit Diagnoses Diagnosis Paroxysmal atrial fibrillation (HCC)- Primary Atrial fibrillation documented in this encounter Advance Directives Documents on File Type Date Recorded 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
--- OUTSIDE RECORDS SUMMARY | 2024-09-30 18:19 | External Medical Summary | Summary of Care ---
Author Name Unknown Organization [facility] Address [address] [facility] [address] Phone [phone] Care Team Providers Care Strategic Partner Development Manager Name Role Phone Fuentes Ashton MD Primary Care Provider [phone] Reason for Visit * Reason Onset Date Comments Advice 07/26/2024 Encounter Details Date Type Department Care Team (Late st Contact Info) Description 07/26/2024 Telephone Cardiology, [place] [address] [place] [phone] Harmony Paez PA-C [address] [place] [phone] Advice Allergies Active Allergy Reactions Criticality Noted [...] Delayed Release (PriLOSEC)Indicatio ns:Gastroesophageal reflux disease without esophagitis,intermediate manager (current) use 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 Take [...] Inhalation Aerosol Powder Breath ActivatedIndication s:COPD, moderate ([facility]) Inhale 2 Puffs by mouth every 4 hours as needed for Shortness of Breath. 1 Each 11 07/06/2024 Active Albuterol Sulfate (2.5 MG/3ML) 0.083% Inhalation Nebulization Solution (Proventil)Indicati ons:COPD, group C, by GOLD 2017 classification ([facility]) Inhale 1 Vial via nebulizer every 4 [...] from 2018 Atherosclerotic heart diseas e of [place] coronary artery without angina pectoris 05/31/2020 CKD (chronic kidney disease) stage 4, GFR 15-29 ml/min 07/17/2019 Chronic anticoagulation 04/03/2019 Vitamin D deficiency 11/17/2018 Senile osteoporosis 09/06/2018 Paroxysmal atrial fibrillation 07/08/2018 Last Assessment & Plan: Rate controlled on metoprolol Continue apixaban History of acute tubular necrosis 06/29/2018 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 IPMN (intraductal papillary mucinous neoplasm) 0 03/09/2018 Overview: MRI 02/23 intermediate manager (current) use 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 08/03/2023 08/03/2023 Atherosclerosis of [place] co ronary artery without angina pectoris 02/01/2023 [...] Cachexia 08/30/2019 05/31/2020 Hypertensive heart disease w [facility] heart failure and stage 5 chronic kidney [...] PL and AMP Hypertensive heart disease w [facility] heart failure and stage 3 chronic kidney [...] mRNA, LNP-s, No Pre serve, 2-Dose Series ([employer]) 08/15/2021,01/31/2021,01/03/2021 COVID-19, LNP-s, No Preserve , Ruslan-sucrose, Ages 12+ (Pfizer) 03/19/2022 COVID-19, MRNA-LNP, 23-24, P F, 30 MCG/0.3 mL, 12 YRS AND ABOVE, IM ([facility]) 10/25/2023 Covid-19, Mrna, Lnp-s, Pf, B ivalent, 30 Mcg, IM, 12 yrs and above ([employer]) 2022 Pneumococcal Conjugate Vacc, 13 Valent (Prevnar) 01/21/2016 Pneumococcal Conjugate Vacci ne, 20-valent ([id number]) 07/19/2023 Pneumococcal Polysaccharide PPV23 (Pneumovax) 01/13/2011 RSV [...] EDT Does patient need formal cardiac clearance? [id number] score of 4. May hold Eliquis 48 hours prior to procedure and resume once hemodynamically stable Harmony Paez PA-C * Telephone Encounter - Rehana Bautista OSA - 08/01/2024 11:35 AM EDT Person calling: [facility] Relationship to patient: provider Phone/Fax to return call: put [place] TE to [place] [phone] Reason for call(brief): Eliquis hold Pharmacy: na [...] [facility] Phone/Fax to return call: [phone] Reason for call(brief): advice Pharmacy: N/A Provider [...] Otolaryngology/Head & Neck/Facial Plastic Surgery [address] [place] [address] Lexie Aldridge MD [address] [place] [address] 08/09/2024 12:30 PM EDT Appointment Radiology, [facility] 400 [place] [address] 08/14/2024 11:00 AM EDT Office Visit Nephrology, [facility] [address] [place] [address] Keisha Gunn MD [address] [place] [address] 08/21/2024 2:00 PM EDT Office Visit [facility] 21 [place] [phone] Fuentes Ashton MD 21 [place] [address] 12/21/2024 1:30 PM EST Office Visit Dermatology, Ahmet Rowell [address] [facility] [address] [place] [address] Malaika Guzman PA-C [address] [place] [address] 01/22/2025 1:30 PM EDT PulmDiagnostic Pulmonary Function Lab [facility] [address] [facility] [place] [address] [address] [place] [address] 01/22/2025 2:00 PM EDT Office Visit Pulmonary Medicine [facility] [address] [place] [phone] Dominguez Aguilar MD [address] [place] [address] 02/05/2025 10:00 AM EDT Office Visit Rheumatology, [address], [place] [address] Rafael Hernandez PA-C [address] [place] [address], [place] [address] Scheduled Procedures Name Priority Associated Diagnoses Date/Ti [...] this encounter Medical Devices Implanted Type Area Plastics Fabrication Supervisor Device Identifier Shelf Expiration Date Model / Serial / Lot Mesh Perfix Plug Lg [id number] - [id number] Implanted:Qty: 1 on 02/07/2019 by Jonathan Correia DO at OR [facility] Right: Groin CR BARD : DAVOL 09/04/2023 [id number] / / [id number] documented as of this encounter Visit Diagnoses Diagnosis Paroxysmal atrial fibrillation (HCC)- Primary Atrial fibrillation documented in this encounter Advance Directives Documents on File Type Date Recorded 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 No * Full Code Date Activated Date [...] [place] Adult Child Emergency Contact Care Teams Strategic Partner Development Manager Relationship Specialty Start Date End Date Fuentes Ashton MD [address] [place] [phone] PCP - General Family Medicine 01/30/22 documented as of this encounter
--- OUTSIDE RECORDS SUMMARY | 2024-09-30 18:19 | External Medical Summary | Summary of Care ---
Author Name Unknown Organization [facility] Address [address] [place] [address] Phone [phone] Care Team Providers Care Lining Parts Sewer Name Role Phone Fuentes Ashton MD Primary Care Provider [phone] Reason for Visit * Reason Comments Mohs Surgery Completion of Mohs s urgery SCC L neck from 07/26/24 Encounter Details Date Type Department Care Team (Late st Contact Info) Description 07/31/2024 8:00 AM EDT Office Visit MOHS Surgery [facility] [address] [place] [address] Supriya Fernandes MD [address] [place] [address] Squamous cell carcinoma of neck* Allergies Active [...] Delayed Release (PriLOSEC)Indicatio ns:Gastroesophageal reflux disease without esophagitis,correction (current) use of [...] 7 days. 14 Capsule 07/26/2024 08/02/20 Active documented as of this encounter (statuses [...] from 2018 Atherosclerotic heart diseas e of [place] coronary artery without angina pectoris 05/31/2020 CKD [...] leg 09/12/2023 03/03/2024 Acute on chronic anemia 09/11/20232 04/2024 Cellulitis 09/09/2023 03/03/2024 Encephalopathy acute 09/09/2023 023 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 08/03/2023 08/03/2023 Atherosclerosis of [place] co ronary artery without angina pectoris 02/01/2023 [...] heart disease w [facility] heart failure and stage 3 chronic [...] mRNA, LNP-s, No Pre serve, 2-Dose Series (Protonet) 08/15/2021,01/31/2021,01/03/2021 COVID-19, LNP-s, No Preserve , Ruslan-sucrose, Ages 12+ (Pfizer) 03/19/2022 COVID-19, MRNA-LNP, 23-24, P F, 30 MCG/0.3 mL, 12 YRS AND ABOVE, IM ([facility]) 10/25/2023 Covid-19, Mrna, Lnp-s, Pf, B ivalent, 30 Mcg, IM, 12 yrs and above (Protonet) 2022 Pneumococcal Conjugate Vacc, 13 Valent (Prevnar) 01/21/2016 Pneumococcal Conjugate Vacci ne, 20-valent ([id number]) 07/19/2023 Pneumococcal Polysaccharide PPV23 (Pneumovax) 01/13/2011 RSV [...] Progress Notes * Supriya Fernandes MD - 07/31/2024 1:35 PM EDT Pablo Mohs Surgery Note (See separate transcribed operative note for further detail) History: Kennedy Davis is a 78 year old patient seen today for continuation of Mohs surgery of a large squamous cell carcinoma on the left neck. 2 stages of Mohs surgery were completed on 07/26/2024, margins still positive. Extensive intraneural/perineural invasion noted on Mohs sections (large caliber nerves). Patient has been holding Eliquis since 07/26/2024 (discussed/cleared with cardiology). Patient states that he feels well. No pain. Here today with his . No bleeding issues over the weekend. A. Skin, L neck, shave: Squamous cell carcinoma, moderately differentiated type Patient problem list reviewed. Patient medication/allergy lists reviewed. Examination: Kennedy Davis is alert, oriented and appears well and in no distress. The patient's skin is remarkable for: Left neck: 9.8 cm x 6.2 cm open surgical wound (5-[address] at periphery of wound marking hash barnes, 4-0 prolene sutures marking 12 o'clock and 6 o'clock position) Impression/Plan: Squamous cell carcinoma, moderately differentiated type - left neck MMS Continue doxycyline 100 mg BID (tolerating well per pt) Standard Mohs micrographic technique was utilized to [...] numbness or the inability to move muscles fully such as the inability to lift eyebrows. Questions answered and verbal and written consent was obtained. 3 additional Mohs layers taken today (for a total of 5 stages of Mohs surgery) Periphery of tumor cleared. Deep positive margins marked with 4-0 Prolene sutures and gentian jomar. See photos in chart. Photo with additional markings sent to Dr. Aldridge via tiger text and later added to chart. Green viejas indicates approximate area of small focus of squamous cell carcinoma at the deep margin of a Mohs section consisting of sternocleidomastoid muscle (stage 1, piece 17, see map and photo), unable to resect deeper safely in office setting. Mahomet barnes approximate areas of perineural/intraneural squamous cell carcinoma and yellow viejas encompasses the Mohs sections that showed perineural/intraneural squamous cell carcinoma where deeper layers were not feasible in the office setting (stage 2 pieces 3 and 1, which encompassed stage 1 pieces 12, 13, and 14). Patient was referred to ENT for deeper resection, neck dissection, and reconstruction. Communicatedthis information to Dr. Aldridge via staff message and tiger text. Anesthetic: 0.05% lidocaine with 1:100,000 epinephrine. Repair: Purse-string (see separate operative report for details) 3-0 Monocryl purse string suture placed at inferior aspect of wound to aid in hemostasis. (No charge for purse string) Note: 5-0/4-0 prolene sutures still present at wound edges marking hash barnes. Copious gel foam was necessary to control oozing and therefore gel foam currently covers the prolene sutures and gentian jomar marking positive deep margins in the center of the wound (primarily at superior/anterior quadrant). Discussed with patient and his family ( and daughter) that this is a high risk squamous cell carcinoma with increased risk of recurrence, metastasis, and progression of disease/ even if clear surgical margins are obtained. Explained information above (need for deeper resection and likely neck dissection with ENT per discretion of ENT surgeon). Also discussed that post- operative radiationwill likely be indicated. Will discuss case further with ENT and defer to their recommendations fornext steps. Received clearance from fire hydrant mechanic (Sona Carmona MD) to hold Eliquis until today (07/31/2024). Patient is still holding Eliquis. Sent another staff message inquiring about clearance to hold Eliquis for longer given open wound, continued oozing, and upcoming surgery with ENT. Wound care was discussed verbally, demonstrated and printed wound instructions given as well as wound care supplies. Patient instructed to call with questions or concerns. Personal contact information provided. Follow-up: will adjust pending date of surgery with ENT Supriya Fernandes MD Associate, Mohs Micrographic Surgery & Dermatologic Surgery 07/31/2024 documented in this encounter Nursing Notes * Leandra Boswell LPN - 07/31/2024 7:41 AM EDT Chief Complaint Patient presents with Mohs Surgery Completion of Mohs surgery SCC L neck from 07/26/24 Referral Doctor: Thomas Hypertension History: Yes, refer [...] Otolaryngology/Head & Neck/Facial Plastic Surgery [address] [place] [address] Lexie Aldridge MD [address] [place] [address] 08/09/2024 12:30 PM EDT Appointment Radiology, [address] [address] 08/14/2024 11:00 AM EDT Office Visit Nephrology, [address] [address] Keisha Gunn MD [address] [place] [address] 08/21/2024 2:00 PM EDT Office Visit [facility] 21 [facility] [place] [phone] Fuentes Ashton MD 21 [place] [address] 12/21/2024 1:30 PM EST Office Visit Dermatology, [address] [place] [address] [place] [address] Malaika Guzman PA-C [address] [place] [address] 01/22/2025 1:30 PM EDT PulmDiagnostic Pulmonary Function Lab [facility] [place] [address] [place] [address] [address], [address] [place] [address] 01/22/2025 2:00 PM EDT [facility] [address] [place] [phone] Dominguez Aguilar MD [address] [place] [address] [address] 02/05/2025 10:00 AM EDT Office Visit Rheumatology, [address] [place] [address] Rafael Hernandez PA-C [address] [place] [address] Scheduled Procedures Name Priority Associated Diagnoses Date/Ti [...] this encounter Medical Devices Implanted Type Area Web Master Device Identifier Shelf Expiration Date Model / Serial / Lot Mesh Perfix Plug Lg [id number] - [id number] Implanted:Qty: 1 on 02/07/2019 by Jonathan Correia DO at OR [facility] Right: Groin CR BARD : DAVOL 09/04/2023 [id number] / / [id number] documented as of this encounter Visit Diagnoses Diagnosis Squamous cell carcinoma of neck- Primary Malignant neoplasm of head, face, and neck documented in this encounter Advance Directives Documents on File Type Date Recorded 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
--- OUTSIDE RECORDS SUMMARY | 2024-09-30 18:20 | External Medical Summary | Summary of Care ---
Author Name Unknown Organization [facility] Address [address] [place] [address] Phone [phone] Care Team Providers Care Distribution District Supervisor Name Role Phone Fuentes Ashton MD Primary Care Provider [phone] Reason for Visit * Reason Onset Date Comments Referral 07/31/2024 Encounter Details Date Type Department Care Team (Late st Contact Info) Description 07/31/2024 New Patient Triage (CAR SHAGGER USE ONLY) Otolaryngology [facility] [address] [place] [address] Betty Bello, ASSISTANT TERMINAL MANAGER Referral Allergies Active Allergy Reactions Criticality Noted [...] ons:COPD, group C, by GOLD 2017 classification (CONTINUECARE [...] from 2019 Atherosclerotic heart diseas e of [place] coronary artery without angina pectoris 05/31/2020 CKD [...] chronic kidney disease 08/03/2023 08/03/2023 Atherosclerosis of [place] co ronary artery without angina pectoris 02/01/2023 [...] mRNA, LNP-s, No Pre serve, 2-Dose Series (InviteDEV) 08/15/2021,01/31/2021,01/03/2021 COVID-19, LNP-s, No Preserve , Ruslan-sucrose, Ages 12+ (Pfizer) 03/19/2022 COVID-19, MRNA-LNP, 23-24, P F, 30 MCG/0.3 mL, 12 YRS AND ABOVE, IM ([facility]) 10/25/2023 Covid-19, Mrna, Lnp-s, Pf, B ivalent, 30 Mcg, IM, 12 yrs and above (Pfizer) 2022 Pneumococcal Conjugate Vacc, 13 Valent (Prevnar) 01/21/2016 Pneumococcal Conjugate Vacci ne, 20-valent ([id number]) 07/19/2023 Pneumococcal Polysaccharide PPV23 (Pneumovax) 01/13/2011 RSV [...] as of this encounter Progress Notes * Joycelyn Jackson PA-C - 08/01/2024 11:13 AM EDT Does patient need to be seen?: Yes Modality: Office visit Urgency: Within 10 days (routine) Please make appointment with Dr. Aldridge, per [facility] Dr. 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 Cleared periphery with Mohs micrographic surgery. Communicated with Dr. Aldridge re positive deep margins. Referral for further surgical removal/neck dissection/reconstruction. Dr. Aldridge aware of case. Needs scheduled at [facility]. Communicated with patient on Date (mm/dd/yyyy): 07/31/2024 at Time ([facility]): 1642 documented in this encounter Plan of Treatment Upcoming Encounters Date Type Department Care Team (Late st Contact Info) Description 08/09/2024 12:30 PM EDT Appointment [address], [address] [address] 08/14/2024 11:00 AM EDT Office Visit Nephrology, [address] [place] [address] Keisha Gunn MD [address] [place] [address] 08/21/2024 2:00 PM EDT Office Visit [facility] 21 [facility] [place] [phone] Fuentes Ashton MD 21 [facility] [place] [address] 12/21/2024 1:30 PM EST Office Visit Dermatology, [address] [place] [address] [place] [address] Malaika Guzman PA-C [address] [place] [address] 01/22/2025 1:30 PM EDT PulmDiagnostic Pulmonary Function Lab [facility] [place] [address] [place] [address] [address] [address], [address] [place] [address] 01/22/2025 2:00 PM EDT Office Visit Pulmonary Medicine [facility] [address] [place] [phone] Dominguez Aguilar MD [address] [place] [address] 02/05/2025 10:00 AM EDT Office Visit Rheumatology, [address] [address] Rafael Hernandez PA-C [address] [facility], [place] [address] Scheduled Procedures Name Priority Associated Diagnoses Date/Ti [...] this encounter Medical Devices Implanted Type Area Sleep Tech Device Identifier Shelf Expiration Date Model / Serial / Lot Mesh Perfix Plug Lg [id number] - [id number] Implanted:Qty: 1 on 02/07/2019 by Jonathan Correia DO at OR [facility] Right: Groin CR BARD : DAVOL 09/04/2023 [id number] / / [id number] documented as of this encounter Advance Directives Documents on File Type Date Recorded 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
--- OUTSIDE RECORDS SUMMARY | 2024-09-30 18:20 | External Medical Summary | Summary of Care ---
Author Name Unknown Organization [facility] Address [address] [facility] [place] [address] Phone [phone] Care Team Providers Care Rn Telephonic Name Role Phone Fuentes Ashton MD Primary Care Provider [phone] Reason for Visit * Reason Comments Outpatient Testing Encounter Details Date Type Department Care Team (Late st Contact Info) Description 07/28/2024 10:50 AM EDT Laboratory [facility] [address], [place] [address] [place] [phone] [place], [address] [place] [address] Chronic gout due to renal impairment of multiple sites without tophus; Paroxysmal atrial fibrillation (HCC) Allergies Active Allergy Reactions Criticality Noted Date Comments Aztreonam Hives Medium 10/11/2019 Cephalosporins Rash 05/24/2017 Chlorhexidine Hives,Rash 01/02/2022 Ciprofloxacin Diarrhea Medium 01/28/2015 Iodinated Contrast Media Abdominal pain High 019 Acute kidney failure Levofloxacin Rash Low 07/28/2019 documented as of this encounter (statuses as of 07/28/2024) Medications Medication Sig Dispensed Refills Start Date [...] Delayed Release (PriLOSEC)Indicatio ns:Gastroesophageal reflux disease without esophagitis,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 Take by [...] as of this encounter (statuses as of 07/28/2024) Active Problems Problem Noted Date Diagnosed Date [...] from 2018 Atherosclerotic heart diseas e of [place] coronary artery without angina pectoris 05/31/2020 CKD (chronic kidney disease) stage 4, GFR 15-29 ml/min 07/17/2019 Chronic anticoagulation 04/03/2019 Vitamin D deficiency 11/17/2018 Senile osteoporosis 09/06/2018 Paroxysmal atrial fibrillation 07/08/2018 Last Assessment & Plan: Rate controlled on metoprolol Continue apixaban History of acute tubular necrosis 06/29/2018 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 IPMN (intraductal papillary mucinous neoplasm) 0 03/09/2018 Overview: MRI 02/23 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 Steroid-induced diabetes [...] as of this encounter (statuses as of 07/28/2024) Resolved Problems Problem Noted Date Diagnosed Date [...] chronic kidney disease 08/03/2023 08/03/2023 Atherosclerosis of [place] co ronary artery without angina pectoris 02/01/2023 [...] PL and AMP Hypertensive heart disease w [facility] heart failure and stage 3 chronic [...] as of this encounter (statuses as of 07/28/2024) Immunizations Name Administration Dates Next Due COVID-19 mRNA, LNP-s, No Pre serve, 2-Dose Series (Loccie) 08/15/2021,01/31/2021,01/03/2021 COVID-19, LNP-s, No Preserve , Ruslan-sucrose, Ages 12+ (Pfizer) 03/19/2022 COVID-19, MRNA-LNP, 23-24, P F, 30 MCG/0.3 mL, 12 YRS AND ABOVE, IM ([facility]) 10/25/2023 Covid-19, Mrna, Lnp-s, Pf, B ivalent, 30 Mcg, IM, 12 yrs and above (Loccie) 2022 Pneumococcal Conjugate Vacc, 13 Valent (Prevnar) 01/21/2016 Pneumococcal Conjugate Vacci ne, 20-valent ([id number]) 07/19/2023 Pneumococcal Polysaccharide PPV23 (Pneumovax) 01/13/2011 RSV [...] 8:00 AM EDT Office Visit MOHS Surgery [place] [address] [place] [address] Supriya Fernandes MD 200 [facility] [address] 08/09/2024 12:30 PM EDT Appointment Radiology, [address] [place] [phone] 08/14/2024 11:00 AM EDT Office Visit Nephrology, [facility] 400 [place] [address] Keisha Gunn MD 400 [place] [address] 08/21/2024 2:00 PM EDT Office Visit Family [facility] [place] [address] [facility] [phone] Fuentes Ashton MD 21 [place] [address] 12/21/2024 1:30 PM EST [facility] 27 [facility] 140 [place] [address] Malaika Guzman PA-C 27 [facility] [place] [address] 01/22/2025 1:30 PM EDT PulmDiagnostic Pulmonary Function Lab [facility] [address] [place] [address] [address], [address] [facility] [place] [address] 01/22/2025 2:00 PM EDT Office Visit Pulmonary Medicine [facility] [address] [place] [phone] Dominguez Aguilar MD [address] [facility] [place] [address] 02/05/2025 10:00 AM EDT Office Visit Rheumatology, [address] [place] [address] Rafael Hernandez, PA-C [address] [place] [address], [place] [address] Pending Results Name Type Priority Associated Diagnoses Date /Time URIC ACID Lab Routine Chronic gout due to renal impairment of multiple sites without tophus 07/28/2024 10:50 AM EDT CBC WITH WBC DIFFERENTIAL Lab Routine Chronic gout due to renal impairment of multiple sites without tophus 07/28/2024 10:50 AM EDT COMPREHENSIVE METABOLIC PANEL Lab Routine Chronic gout due to renal impairment of multiple sites without tophus 07/28/2024 10:50 AM EDT CBC Lab Routine Chronic gout due to renal impairment of multiple sites without tophus 07/28/2024 10:50 AM EDT DIFFERENTIAL, AUTOMATED Lab Routine Chronic gout due to renal impairment of multiple sites without tophus 07/28/2024 10:50 AM EDT Scheduled Procedures Name Priority Associated Diagnoses [...] 11/0 12/2022, 05/18/2023, Additional history exists GFR 01/09/2025 07/12/2024, 08/0 12/2023, 05/25/2024, Additional history exists TSH 01/30/2025 01/31/2024, 01/07, [...] encounter Medical Devices Implanted Type Area Furniture Sprayer Device Identifier Shelf Expiration Date Model / Serial / Lot Mesh Perfix Plug Lg [id number] - [id number] Implanted:Qty: 1 on 02/07/2019 by Jonathan Correia DO at OR [facility] Right: Groin CR BARD : DAVOL 09/04/2023 [id number] / / [id number] documented as of this encounter Visit Diagnoses Diagnosis 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
--- OUTSIDE RECORDS SUMMARY | 2024-09-30 18:20 | External Medical Summary ---
Author Name Unknown Address Unknown Organization [id number]:[facility] - [address] [place] [address] Laboratory Report Ordering Provider Test Date Status JOSELO VIDES 07/28/2024 10:50:58 Final Observation Date Value Abnormality Reference (Units ) Status Uric Acid 07/28/2024 10:50:58 4.8 3.4-7.0 (m g/dL) Final Performing Location [facility] - [address] [place] [address]
--- OUTSIDE RECORDS SUMMARY | 2024-09-30 18:20 | External Medical Summary ---
Author Name Unknown Address Unknown Organization K01:[facility] - [address] [facility] [address] Laboratory Report Ordering Provider Test Date Status JOSELO VIDES 07/28/2024 10:50:58 Final Observation Date Value Abnormality Reference (Units ) Status BUN 07/28/2024 10:50:58 40 Above high normal 6-20 (mg/dL) Final Creatinine 07/28/2024 10:50:58 3.0 Above high normal 0.6-1.2 (mg/dL) Final Glomerular filtration rate/1.73 sq M.predicted [Volume Rate/Area] in Serum, Plasma or Blood by Creatinine-based formula (CKD-EPI) 07/28/2024 10:50:58 21 Below low normal >=60 (mL/min) Final eGFR is calculated based on the CKD-EPI 2020 equation. Sodium 07/28/2024 10:50:58 140 135-146 (m mol/L) Final Potassium 07/28/2024 10:50:58 4.3 3.5-5.1 (m mol/L) Final Cl 07/28/2024 10:50:58 101 98-107 (mm ol/L) Final CO2 07/28/2024 10:50:58 28 22-32 (mmo l/L) Final Anion gap 07/28/2024 10:50:58 11 7-15 (mmol /L) Final Glucose 07/28/2024 10:50:58 107 70-120 (mg /dL) Final Albumin 07/28/2024 10:50:58 4.0 3.8-5.0 (g /dL) Final AST (Aspartate aminotransferase) 07/28/2024 10:50:58 31 10-50 (U/L) Final Alk Phos 07/28/2024 10:50:58 61 35-130 (U/ L) Final Bilirubin, Total 07/28/2024 10:50:58 0.4 <=1 .2 (mg/dL) Final Calcium 07/28/2024 10:50:58 9.2 8.4-10.2 ( mg/dL) Final Protein 07/28/2024 10:50:58 6.0 6.0-8.3 (g /dL) Final ALT (Alanine aminotransferase) 07/28/2024 10:50:58 23 10-50 (U/L) Final Performing Location [facility] - [address] [facility] [address]
--- OUTSIDE RECORDS SUMMARY | 2024-09-30 18:20 | External Medical Summary | Summary of Care ---
Author Name Unknown Organization [facility] Address [address] [facility] [place] [address] Phone [phone] Care Team Providers Care Bobtailer Name Role Phone Fuentes Ashton MD Primary Care Provider +1 [phone] Reason for Visit * Reason Comments Outpatient Testing Encounter Details Date Type Department Care Team (Late st Contact Info) Description 07/28/2024 10:50 AM EDT Laboratory Laboratory [address], [place] [address] [place] [phone] [place], Lab [address] [place] [address] Chronic gout [...] Delayed Release (PriLOSEC)Indicatio ns:Gastroesophageal reflux disease without esophagitis,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 [...] Powder Breath ActivatedIndication s:COPD, moderate ([facility]) Inhale 2 Puffs [...] mucinous neoplasm) 0 03/09/2018 Overview: MRI 02/23 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 [...] PL and AMP Hypertensive heart disease w [facility] heart failure and stage 3 chronic [...] mRNA, LNP-s, No Pre serve, 2-Dose Series (EDUS) 08/15/2021,01/31/2021,01/03/2021 COVID-19, LNP-s, No Preserve , Ruslan-sucrose, Ages 12+ (Pfizer) 03/19/2022 COVID-19, MRNA-LNP, 23-24, P F, 30 MCG/0.3 mL, 12 YRS AND ABOVE, IM ([facility]) 10/25/2023 Covid-19, Mrna, Lnp-s, Pf, B ivalent, 30 Mcg, IM, 12 yrs and above (EDUS) 2022 Pneumococcal Conjugate Vacc, 13 Valent (Prevnar) 01/21/2016 Pneumococcal Conjugate Vacci ne, 20-valent ([id number]) 07/19/2023 Pneumococcal Polysaccharide PPV23 (Pneumovax) 01/13/2011 RSV [...] EDT Office Visit [facility] Surgery [place] [address] [place] [address] Supriya Fernandes MD 200 [facility] [address] 08/09/2024 12:30 PM EDT Appointment Radiology, [address] [place] SANTANA [phone] 08/14/2024 11:00 AM EDT Office Visit Nephrology, [facility] 400 [place] [address] Keisha Gunn MD 400 [place] [address] 08/21/2024 2:00 PM EDT Office Visit [facility] [place] [facility] [phone] Fuentes Ashton MD 21 [place] [address] 12/21/2024 1:30 PM EST [facility] 27 [facility] 140 [place] [address] Malaika Guzman PA-C 27 [place] [address] 01/22/2025 1:30 PM EDT PulmDiagnostic Pulmonary Function Lab [facility] [address] [place] [address] [address], [address] [facility] [place] [address] 01/22/2025 2:00 PM EDT Office Visit Pulmonary Medicine [facility] [address] [place] [phone] Dominguez Aguilar MD [address] [facility] [place] [address] 02/05/2025 10:00 AM EDT Office Visit Rheumatology, [address] [place] [address] Rafael Hernandez, PA-C [address] [place] [address], [place] [address] Pending Results Name Type Priority Associated Diagnoses [...] this encounter Medical Devices Implanted Type Area Psychiatric Orderly Device Identifier Shelf Expiration Date Model / Serial / Lot Mesh Perfix Plug Lg [id number] - [id number] Implanted:Qty: 1 on 02/07/2019 by Jonathan Correia DO at OR [facility] Right: Groin CR BARD : DAVOL 09/04/2023 [id number] / / [id number] documented as of this encounter Visit Diagnoses Diagnosis 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
--- OUTSIDE RECORDS SUMMARY | 2024-09-30 18:20 | External Medical Summary | Summary of Care ---
Author Name Unknown Organization [facility] [address] [facility] [address] Phone [phone] Care Team Providers Care Oil Burner Repairer Name Role Phone Fuentes Ashton MD Primary Care Provider [phone] [phone] Reason for Visit * Reason Onset Date Comments Advice 07/26/2024 Encounter Details Date Type Department Care Team (Late st Contact Info) Description 07/26/2024 Telephone Cardiology, [place] [address] [place] [phone] Harmony Paez PA-C [address] [place] [phone] Advice Allergies Active Allergy Reactions Criticality Noted [...] Delayed Release (PriLOSEC)Indicatio ns:Gastroesophageal reflux disease without esophagitis,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 Take by [...] Aerosol Powder Breath ActivatedIndication s:COPD, moderate ([facility]) Inhale 2 [...] from 2018 Atherosclerotic heart diseas e of [place] coronary artery without angina pectoris 05/31/2020 CKD (chronic kidney disease) stage 4, GFR 15-29 ml/min 07/17/2019 Chronic anticoagulation 04/03/2019 Vitamin D deficiency 11/17/2018 Senile osteoporosis 09/06/2018 Paroxysmal atrial fibrillation 07/08/2018 Last Assessment & Plan: Rate controlled on metoprolol Continue apixaban History of acute tubular necrosis 06/29/2018 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 IPMN (intraductal papillary mucinous neoplasm) 0 03/09/2018 Overview: 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 08/03/2023 08/03/2023 Atherosclerosis of [place] co ronary artery without angina pectoris 02/01/2023 [...] Cachexia 08/30/2019 05/31/2020 Hypertensive heart disease w [facility] heart failure and stage 5 chronic [...] PL and AMP Hypertensive heart disease w [facility] heart failure and stage 3 chronic [...] mRNA, LNP-s, No Pre serve, 2-Dose Series (Leftronic) 08/15/2021,01/31/2021,01/03/2021 COVID-19, LNP-s, No Preserve , Ruslan-sucrose, Ages 12+ (Pfizer) 03/19/2022 COVID-19, MRNA-LNP, 23-24, P F, 30 MCG/0.3 mL, 12 YRS AND ABOVE, IM ([facility]) 10/25/2023 Covid-19, Mrna, Lnp-s, Pf, B ivalent, 30 Mcg, IM, 12 yrs and above (Leftronic) 2022 Pneumococcal Conjugate Vacc, 13 Valent (Prevnar) 01/21/2016 Pneumococcal Conjugate Vacci ne, 20-valent ([id number]) 07/19/2023 Pneumococcal Polysaccharide PPV23 (Pneumovax) 01/13/2011 RSV [...] EDT Person calling: Kaylie Relationship to patient: [facility] Surgery Phone/Fax to return call: [phone] Reason for call(brief): advice Pharmacy: N/A Provider Name:Harmony Paez Detailed message to office:aKylie called requesting to speak to a nurse [...] Description 07/31/2024 8:00 AM EDT Office Visit [facility] Surgery [facility] 200 [place] [address] Supriya Fernandes MD [address] [place] [address] [place] [address] 08/09/2024 12:30 PM EDT Appointment Radiology, [address] [address] 08/14/2024 11:00 AM EDT Office Visit Nephrology, [address] [address] Keisha Gunn MD [address] [place] [address], [place] [address] 08/21/2024 2:00 PM EDT Office [facility] [phone] Fuentes Ashton MD 21 [place] [address] 12/21/2024 1:30 PM EST Office [facility] [address] 27 [facility] [place] 140 [place], [place] [phone] Malaika Guzman PA-C 27 [facility] [place] [address] 01/22/2025 1:30 PM EDT PulmDiagnostic Pulmonary Function Lab [facility] [address] [place] [address] [address], [address] [facility] [place] [address] 01/22/2025 2:00 PM EDT Office Visit Pulmonary Medicine [facility] [address] [place] [phone] Dominguez Aguilar MD [address] [facility] [place] [address] 02/05/2025 10:00 AM EDT Office Visit Rheumatology, [facility] 400 [facility] [address] Rafael Hernandez PAJackiC [address] [place] [address], [place] [address] Scheduled Orders Name Type Priority Associated Diagnoses Orde r Schedule CBC Lab Routine Paroxysmal atrial fibrillation (HCC) Expected: 07/28/2024, Expires: 07/26/2025 Scheduled Procedures Name Priority Associated Diagnoses Date/Ti [...] 05/25/2024, Additional history exists TSH 01/30/2025 01/31/2024, 032 [...] this encounter Medical Devices Implanted Type Area Charge Preparation Technician Device Identifier Shelf Expiration Date Model / Serial / Lot Mesh Perfix Plug Lg [id number] - [id number] Implanted:Qty: 1 on 02/07/2019 by Jonathan Correia, DO at OR [facility] Right: Groin CR BARD : DAVOL 09/04/2023 [id number] / / [id number] documented as of this encounter Visit Diagnoses Diagnosis Paroxysmal atrial fibrillation (HCC)- Primary Atrial fibrillation documented in this encounter Advance Directives Documents on File Type Date Recorded Patient Flexo Folder Gluer Operator Expl anation Advance Directives and Living [...] Colón Adult Child Emergency Contact Care Teams Oil Burner Repairer Relationship Specialty Start Date End Date Fuentes Ashton MD 21 [place] [address] PCP - General Family Medicine 01/30/22 documented as of this encounter
--- OUTSIDE RECORDS SUMMARY | 2024-09-30 18:20 | External Medical Summary ---
Author Name Unknown Address Unknown Organization K01:LABORATORY [facility] [place] - [address] [place] [address] Laboratory Report Ordering Provider Test Date Status JOSELO VIDES 07/28/2024 10:50:58 Final Observation Date Value Abnormality Reference (Units ) Status WBC, Total 07/28/2024 10:50:58 8.93 4.00-10.80 (K/uL) Final RBC 07/28/2024 10:50:58 3.43 4.50-5.25 (M/uL) Final Hemoglobin 07/28/2024 10:50:58 11.1 Below low normal 14.0-16.8 (g/dL) Final HCT 07/28/2024 10:50:58 36.4 Below low normal 40.0-48.4 (%) Final MCV 07/28/2024 10:50:58 106.1 82.0-99.5 (fL) Final MCH 07/28/2024 10:50:58 32.4 27.0-34.0 (pg) Final MCHC 07/28/2024 10:50:58 30.5 32.0-36.0 (g/dL) Final RDW 07/28/2024 10:50:58 14.0 11.5-15.5 (%) Final Platelets 07/28/2024 10:50:58 112 Below low normal 140-400 (K/uL) Final MPV 07/28/2024 10:50:58 13.6 6.6-11.1 (fL) Final Nucleated erythrocytes/100 leukocytes [Ratio] in Blood by Automated count 07/28/2024 10:50:58 0 <=0 (/100 WBCs) Final Performing Location LABORATORY [facility] - [address] [place] [address]
--- OUTSIDE RECORDS SUMMARY | 2024-09-30 18:20 | External Medical Summary | Summary of Care ---
Author Name Unknown Organization [facility] Address [address] [place] [address] Phone [phone] Care Team Providers Care Marble Setter Name Role Phone Fuentes Ashton MD Primary Care Provider [phone] [phone] Reason for Visit * Reason Onset Date Comments Follow Up 07/28/2024 Encounter Details Date Type Department Care Team (Late st Contact Info) Description 07/28/2024 Telephone [facility] Surgery [facility] 200 [place] [address] Supriya Fernandes MD 200 [place] [address] Follow Up Allergies Active Allergy Reactions Criticality Noted Date [...] from 2018 Atherosclerotic heart diseas e of [place] coronary artery without angina pectoris 05/31/2020 CKD [...] chronic kidney disease 08/03/2023 08/03/2023 Atherosclerosis of [place] co ronary artery without angina pectoris 02/01/2023 [...] Cachexia 08/30/2019 05/31/2020 Hypertensive heart disease w [facility] heart failure and stage 5 chronic [...] PL and AMP Hypertensive heart disease w [facility] heart failure and stage 3 chronic [...] mRNA, LNP-s, No Pre serve, 2-Dose Series ([facility]) 08/15/2021,01/31/2021,01/03/2021 COVID-19, LNP-s, No Preserve , Ruslan-sucrose, Ages 12+ (Pfizer) 03/19/2022 COVID-19, MRNA-LNP, 23-24, P F, 30 MCG/0.3 mL, 12 YRS AND ABOVE, IM ([facility]) 10/25/2023 Covid-19, Mrna, Lnp-s, Pf, B ivalent, 30 Mcg, IM, 12 yrs and above ([facility]) 2022 Pneumococcal Conjugate Vacc, 13 Valent (Prevnar) 01/21/2016 Pneumococcal Conjugate Vacci ne, 20-valent ([id number]) 07/19/2023 Pneumococcal Polysaccharide PPV23 (Pneumovax) 01/13/2011 RSV [...] TDAP, Age 7 and older, IM (Adac[facility]) 03/23/2013,01 / Zoster Vaccine Recombinant (Shingrix) 05/05/2021 ,03/03/2021 documented [...] Encounter - Supriya Fernandes MD - 07/28/2024 9:29 AM EDT Attempted to call patient, no answer. Supriya Fernandes MD 07/28/2024 9:29 AM documented in this encounter Plan of Treatment Upcoming Encounters Date Type Department Care Team (Late st Contact Info) Description 07/31/2024 8:00 AM EDT Office Visit [facility] Surgery [facility] 200 [place] [address] Supriya Fernandes MD 200 [facility] [place] [address] 08/09/2024 12:30 PM EDT Appointment Radiology, [facility] [address] 08/14/2024 11:00 AM EDT Office Visit Nephrology, [facility] 400 [place] [address] Keisha Gunn MD 400 [place] [address] 08/21/2024 2:00 PM EDT Office Visit [facility] 21 [facility] [phone] Fuentes Ashton MD 21 [place] [address] 12/21/2024 1:30 PM EST [facility] [address] [place] 140 [place] [address] Malaika Guzman PA-C 27 Melissa [facility] [place] [address] 01/22/2025 1:30 PM EDT PulmDiagnostic Pulmonary Function Lab [facility] [address] [place] [address] [address], [address] [place] [address] 01/22/2025 2:00 PM EDT Office Visit Pulmonary Medicine [facility] [place] [address] [place] [phone] Dominguez Aguilar MD [address] [place] [address] 02/05/2025 10:00 AM EDT Office Visit Rheumatology, [address] [place] [address] Rafael Hernandez PA-C [address] 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
--- OUTSIDE RECORDS SUMMARY | 2024-09-30 18:20 | External Medical Summary ---
Author Name Unknown Address Unknown Organization K01:LABORATORY [facility] [place] - 100 [facility] [address] Laboratory Report Ordering Provider Test Date Status JOSELO VIDES 07/28/2024 10:50:58 Final Observation Date Value Abnormality Reference (Units ) Status SYNC LEUKOCYTES IN BLOOD BY AUTOMATED COUNT 07/28/2024 10:50:58 8.93 4.00-10.80 (K/uL) Final Segs 07/28/2024 10:50:58 74.7 40.0-75.0 (%) Final Lymphs % 07/28/2024 10:50:58 15.1 Below low normal 18.0-42.0 (%) Final Monos 07/28/2024 10:50:58 5.6 1.0-11.0 (%) Final Eosinophils 07/28/2024 10:50:58 2.8 0.0-6.0 (%) Final Basos 07/28/2024 10:50:58 0.3 0.0-2.0 (%) Final Immature Granulocyte, Percent 07/28/2024 10:50:58 1.5 0.0-2.0 (%) Final Absolute Segs 07/28/2024 10:50:58 6.67 1.80-7.70 (K/uL) Final Lymphs, absolute 07/28/2024 10:50:58 1.35 1.00-4.80 (K/ul) Final Monos, Abs 07/28/2024 10:50:58 0.50 0.00-1.10 (K/uL) Final Eos, Abs 07/28/2024 10:50:58 0.25 0.00-0.70 (K/uL) Final Basos, Abs 07/28/2024 10:50:58 0.03 0.00-0.20 (K/uL) Final Immature Granulocytes, Number 07/28/2024 10:50:58 0.13 0.00-0.20 (K/uL) Final Performing Location LAB[facility]ATORY [facility] - [facility] [place] [address]
--- OUTSIDE RECORDS SUMMARY | 2024-09-30 18:20 | External Medical Summary | Summary of Care ---
Author Name Unknown Organization [facility] Address [address] [facility] [place] [address] Phone [phone] Care Team Providers Care Certified Medical Coder Name Role Phone Fuentes Ashton MD Primary Care Provider [phone] [phone] Reason for Visit * Reason Onset Date Comments Test Results 07/31/2024 Encounter Details Date Type Department Care Team (Late st Contact Info) Description 07/31/2024 Telephone Dermatology, Ahmet Rowell [address] [place] [address] Malaika Guzman PA-C [address] [place] [address] Test Results Allergies Active Allergy Reactions Criticality Noted Date Comments Aztreonam Hives Medium 10/11/2019 Cephalosporins Rash 05/24/2017 Chlorhexidine Hives,Rash 01/02/2022 Ciprofloxacin Diarrhea Medium 01/28/2015 Iodinated Contrast Media Abdominal pain High 019 Acute kidney failure Levofloxacin Rash Low 07/28/2019 documented as of this encounter (statuses as of 07/31/2024) Medications Medication Sig Dispensed Refills Start Date [...] Delayed Release (PriLOSEC)Indicatio ns:Gastroesophageal reflux disease without esophagitis,residential (current) use of [...] as of this encounter (statuses as of 07/31/2024) Active Problems Problem Noted Date Diagnosed Date [...] from 2018 Atherosclerotic heart diseas e of [place] coronary artery without angina pectoris 05/31/2020 CKD (chronic kidney disease) stage 4, GFR 15-29 ml/min 07/17/2019 Chronic anticoagulation 04/03/2019 Vitamin D deficiency 11/17/2018 Senile osteoporosis 09/06/2018 Paroxysmal atrial fibrillation 07/08/2018 Last Assessment & Plan: Rate controlled on metoprolol Continue apixaban History of acute tubular necrosis 06/29/2018 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 IPMN (intraductal papillary mucinous neoplasm) 0 03/09/2018 Overview: MRI 02/23 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 Steroid-induced diabetes [...] as of this encounter (statuses as of 07/31/2024) Resolved Problems Problem Noted Date Diagnosed Date [...] chronic kidney disease 08/03/2023 08/03/2023 Atherosclerosis of [place] co ronary artery without angina pectoris 02/01/2023 [...] 05/31/2020 Hypertensive heart disease w [facility] heart failure and stage 5 chronic kidney [...] AMP Hypertensive heart disease w [facility] heart failure and stage 3 chronic kidney [...] as of this encounter (statuses as of 07/31/2024) Immunizations Name Administration Dates Next Due COVID-19 mRNA, LNP-s, No Pre serve, 2-Dose Series ([employer]) 08/15/2021,01/31/2021,01/03/2021 COVID-19, LNP-s, No Preserve , Ruslan-sucrose, Ages 12+ (Pfizer) 03/19/2022 COVID-19, MRNA-LNP, 23-24, P F, 30 MCG/0.3 mL, 12 YRS AND ABOVE, IM ([facility]) 10/25/2023 Covid-19, Mrna, Lnp-s, Pf, B ivalent, 30 Mcg, IM, 12 yrs and above ([employer]) 2022 Pneumococcal Conjugate Vacc, 13 Valent (Prevnar) 01/21/2016 Pneumococcal Conjugate Vacci ne, 20-valent ([id number]) 07/19/2023 Pneumococcal Polysaccharide PPV23 (Pneumovax) 01/13/2011 RSV [...] Telephone Encounter - Arina Nguyen LPN - 07/31/2024 2:42 PM EDT Message left that the spot on his left wrist/arm was harmless. Told to return call if they have further questions. He is getting more Mohs today as we speak. * Telephone Encounter - Malaika Guzman PA-C - 07/31/2024 12:04 PM EDT Final Diagnosis A. Skin, R wrist, shave: Surface of ulcerated granulation tissue with surrounding reparative epidermal and dermal changes (see comment) Comment: The histologic differential diagnosis includes a pyogenic granuloma and reparative response to external trauma. There is no evidence of a carcinoma in the portion of tissue submitted; however, the lesion is broadly transected at the base. Clinical correlation is required to determine if the observed lesion has been adequately sampled. Please call and inform that spot we biopsied on R arm/wrist was harmless. No further treatmentnecessary Malaika Guzman PA-C 07/31/2024 12:05 PM documented in this encounter Plan of Treatment Upcoming Encounters Date Type Department Care Team (Late st Contact Info) Description 08/09/2024 12:30 PM EDT Appointment Radiology, [address] [address] 08/14/2024 11:00 AM EDT Office Visit Nephrology, [address] [address] Keisha Gunn MD 400 [place] [address] 08/21/2024 2:00 PM EDT Office Visit [facility] 21 [place] [phone] Fuentes Ashton MD 21 [place] [address] 12/21/2024 1:30 PM EST [facility] 140 [place] [address] Malaika Guzman PA-C 27 [place] [address] 01/22/2025 1:30 PM EDT PulmDiagnostic Pulmonary Function Lab [facility] [address] [facility] [place] [address] [address], [address] [place] [address] 01/22/2025 2:00 PM EDT Office Visit Pulmonary Medicine [facility] [address] [facility] [place] [phone] Dominguez Aguilar MD [address] [facility] [address] 02/05/2025 10:00 AM EDT Office Visit Rheumatology, [address], [place] [address] Rafael Hernandez PA-C [address] [facility], [place] [address] Scheduled Procedures Name Priority Associated Diagnoses Date/Ti [...] this encounter Medical Devices Implanted Type Area Flakeboard Line Tender Device Identifier Shelf Expiration Date Model / Serial / Lot Mesh Perfix Plug Lg [id number] - [id number] Implanted:Qty: 1 on 02/07/2019 by Jonathan Correia DO at OR 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 Adult Child Emergency Contact Care Teams Certified Medical Coder Relationship Specialty Start Date End Date Fuentes Ashton MD 21 [place] [address] PCP - General Family Medicine 01/30/22 documented as of this encounter
--- OUTSIDE RECORDS SUMMARY | 2024-09-30 18:20 | External Medical Summary | Summary of Care ---
Author Name Unknown Organization [facility] Address [address] [facility] [place] [place] [address] Phone [phone] Care Team Providers Care Database Management Specialist Name Role Phone Fuentes Ashton MD Primary Care Provider [phone] Reason for Visit * Reason Onset Date Comments Advice 07/26/2024 Encounter Details Date Type Department Care Team (Late st Contact Info) Description 07/26/2024 Telephone Cardiology, [place] [address] [place] [phone] Harmony Paez PA-C [address] [place] [phone] Advice Allergies Active Allergy Reactions Criticality Noted [...] [place] coronary artery without angina pectoris 05/31/2020 CKD (chronic kidney disease) stage 4, GFR 15-29 ml/min 07/17/2019 Chronic anticoagulation 04/03/2019 Vitamin D deficiency 11/17/2018 Senile osteoporosis 09/06/2018 Paroxysmal atrial fibrillation 07/08/2018 Last Assessment & Plan: Rate controlled on metoprolol Continue apixaban History of acute tubular necrosis 06/29/2018 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 IPMN (intraductal papillary mucinous neoplasm) 0 03/09/2018 Overview: 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 [...] Cachexia 08/30/2019 05/31/2020 Hypertensive heart disease w [facility] heart failure and stage 5 chronic [...] PL and AMP Hypertensive heart disease w [facility] heart failure and stage 3 chronic [...] mRNA, LNP-s, No Pre serve, 2-Dose Series ([employer]) 08/15/2021,01/31/2021,01/03/2021 COVID-19, LNP-s, No Preserve , Ruslan-sucrose, Ages 12+ (Pfizer) 03/19/2022 COVID-19, MRNA-LNP, 23-24, P F, 30 MCG/0.3 mL, 12 YRS AND ABOVE, IM ([employer]) 10/25/2023 Covid-19, Mrna, Lnp-s, Pf, B ivalent, 30 Mcg, IM, 12 yrs and above ([employer]) 2022 Pneumococcal Conjugate Vacc, 13 Valent (Prevnar) 01/21/2016 Pneumococcal Conjugate Vacci ne, 20-valent ([id number]) 07/19/2023 Pneumococcal Polysaccharide PPV23 (Pneumovax) 01/13/2011 RSV [...] to return call: [place] [phone] Reason for call(brief): Eliquis hold [facility]Fax to return call: [phone] Reason for call(brief): advice Pharmacy: N/A Provider [...] Description 08/09/2024 12:30 PM EDT Appointment Radiology, [address] [address] 08/14/2024 11:00 AM EDT Office Visit Nephrology, [address] [place] [address] Keisha Gunn MD [address] [place] [phone] 08/21/2024 2:00 PM EDT [facility] [address] [place] [phone] Fuentes Ashton MD 21 [facility] [address] 12/21/2024 1:30 PM EST [facility] [address] [place] [address] Malaika Guzman PA-C 27 [place] [address] 01/22/2025 1:30 PM EDT PulmDiagnostic Pulmonary Function Lab [facility] [address] [facility] [place] [address] [address], [address] [facility] [place] [address] 01/22/2025 2:00 PM EDT Office Visit Pulmonary Medicine [facility] [address] [facility] [place] [phone] Dominguez Aguilar MD [address] [facility] [place] [address] 02/05/2025 10:00 AM EDT Office Visit Rheumatology, [address] [place] [address] Rafael Hernandez PA-C [email or web address] [place] [address] Scheduled Procedures Name Priority Associated Diagnoses Date/Ti [...] this encounter Medical Devices Implanted Type Area Ergonomics Technician Device Identifier Shelf Expiration Date Model / Serial / Lot Mesh Perfix Plug Lg [id number] - [id number] Implanted:Qty: 1 on 02/07/2019 by Jonathan Correia DO at OR [facility] Right: Lelo KEBEDE BARD : DAVOL 09/04/2023 [id number] / / [id number] documented as of this encounter Visit Diagnoses Diagnosis Paroxysmal atrial fibrillation (HCC)- Primary Atrial fibrillation documented in this encounter Advance Directives Documents on File Type Date Recorded 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
--- OUTSIDE RECORDS SUMMARY | 2024-09-30 18:21 | External Medical Summary | Summary of Care ---
Author Name Unknown Organization [facility] Address [address] [facility] [place] [address] Phone [phone] Care Team Providers Care Dental Appliance Mechanic Name Role Phone Fuentes Ashton MD Primary Care Provider [phone] Reason for Visit * Reason Onset Date Comments Appointment 07/25/2024 Encounter Details Date Type Department Care Team (Late st Contact Info) Description 07/25/2024 Telephone Dermatology, [place] [address] [place] [address] Malaika Guzman PA-C [address] [place] [address] Appointment Allergies Active Allergy Reactions Criticality Noted Date Comments Aztreonam Hives Medium 10/11/2019 Cephalosporins Rash 05/24/2017 Chlorhexidine Hives,Rash 01/02/2022 Ciprofloxacin Diarrhea Medium 01/28/2015 Iodinated Contrast Media Abdominal pain High 019 Acute kidney failure Levofloxacin Rash Low 07/28/2019 documented as of this encounter (statuses as of 07/25/2024) Medications Medication Sig Dispensed Refills Start Date [...] intramuscularly every 7 days 09/16/2023 Active Umeclidinium-Vilant lcaudia 62.5-25 MCG/ACT Inhalation Aerosol Powder Breath Activated [...] 6 weeks 170 g 3 07/24/2024 Active documented as of this encounter (statuses as of 07/25/2024) Active Problems Problem Noted Date Diagnosed Date [...] from 2018 Atherosclerotic heart diseas e of [place] coronary artery without angina pectoris 05/31/2020 CKD [...] as of this encounter (statuses as of 07/25/2024) Resolved Problems Problem Noted Date Diagnosed Date [...] chronic kidney disease 08/03/2023 08/03/2023 Atherosclerosis of [place] co ronary artery without angina pectoris 02/01/2023 [...] as of this encounter (statuses as of 07/25/2024) Immunizations Name Administration Dates Next Due COVID-19 mRNA, LNP-s, No Pre serve, 2-Dose Series ([employer]) 08/15/2021,01/31/2021,01/03/2021 COVID-19, LNP-s, No Preserve , Ruslan-sucrose, Ages 12+ (Pfizer) 03/19/2022 COVID-19, MRNA-LNP, 23-24, P F, 30 MCG/0.3 mL, 12 YRS AND ABOVE, IM ([employer]) 10/25/2023 Covid-19, Mrna, Lnp-s, Pf, B ivalent, 30 Mcg, IM, 12 yrs and above ([employer]) 2022 Pneumococcal Conjugate Vacc, 13 Valent (Prevnar) 01/21/2016 Pneumococcal Conjugate Vacci ne, 20-valent ([id number]) 07/19/2023 Pneumococcal Polysaccharide PPV23 (Pneumovax) 01/13/2011 RSV [...] Telephone Encounter - Arina Nguyen LPN - 07/25/2024 3:17 PM EDT aware that ordered has been placed and central scheduling will call to schedule. * Telephone Encounter - Malaika Guzman PA-C - 07/25/2024 2:29 PM EDT Please inform that ultrasound ordered Malaika Guzman PA-C 07/25/2024 2:29 PM * Telephone Encounter - Arina Nguyen LPN - 07/25/2024 11:17 AM EDT Patient's called and would like you to schedule the US of his back? She said you would know what she is talking about documented in this encounter Plan of Treatment Upcoming Encounters Date Type Department Care Team (Late st Contact Info) Description 07/26/2024 7:30 AM EDT Office Visit [facility] [address] [facility], [place] [address] Supriya Fernandes MD 200 [place] [address] 08/09/2024 12:30 PM EDT Appointment Radiology, [address] [address] 08/14/2024 11:00 AM EDT Office Visit Nephrology, [facility] [address] [place] [address] Keisha Gunn MD [address] [place] [address] 08/21/2024 2:00 PM EDT [facility] [phone] Fuentes Ashton MD 21 [facility] [address] 12/21/2024 1:30 PM EST Office Visit Dermatology, [place] [address] [address] [place] [phone] Malaika Guzman PA-C [address] [place] [phone] 01/22/2025 1:30 PM EDT PulmDiagnostic Pulmonary Function Lab [facility] [place] [address] [place] [address] [address], [address] Th[address] [place] [address] 01/22/2025 2:00 PM EDT Office Visit Pulmonary Medicine [facility] [address] [place] [phone] Dominguez Aguilar MD [address] [facility] [place] [address] 02/05/2025 10:00 AM EDT Office Visit Rheumatology, [address] [address] Rafael Hernandez PA-C [address] [facility], [place] [address] Scheduled Orders Name Type Priority Associated Diagnoses Orde r Schedule US EXTREMITY MSK Medical Imaging Routine Nodule of skin of back Expected: 07/25/2024, Expires: 08/24/2025 Scheduled Procedures Name Priority Associated Diagnoses Date/Ti [...] 05/18/2023, Additional history exists GFR 01/09/2025 07/12/2024, 0812/2023, 05/25/2024, Additional history exists TSH 01/30/2025 01/31/2024, [...] this encounter Medical Devices Implanted Type Area Sewer Pipe Press Operator Device Identifier Shelf Expiration Date Model / Serial / Lot Mesh Perfix Plug Lg [id number] - [id number] Implanted:Qty: 1 on 02/07/2019 by Jonathan Correia DO at OR [facility] Right: Groin CR BARD : DAVOL 09/04/2023 [id number] / / [id number] documented as of this encounter Visit Diagnoses Diagnosis Nodule of skin of back- Primary documented in this encounter Advance Directives Documents on File Type Date Recorded Patient Tabulating Machine Mechanic Expl anation Advance Directives and Living [...] verbally by patient or by statute hierarchy) [facility] Adult Child Emergency Contact Care Teams Dental Appliance Mechanic Relationship Specialty Start Date End Date Fuentes Ashton MD 21 [place] [phone] PCP - General Family Medicine 01/30/22 documented as of this encounter
--- OUTSIDE RECORDS SUMMARY | 2024-09-30 18:21 | External Medical Summary | Summary of Care ---
Author Name Unknown Organization [facility] Address [address] [facility] [place] [address] Phone [phone] Care Team Providers Care Wildland Firefighter Name Role Phone Fuentes Ashton MD Primary Care Provider [phone] Reason for Visit * Reason Comments Skin Check FBSE - HX multiple B CC, SCC's. Concerning spot right lower arm. States spot on left side of neck keeps oozing - he is due to have Mohs in 2 days. Encounter Details Date Type Department Care Team (Late st Contact Info) Description 07/24/2024 2:30 PM EDT Office Visit Dermatology, Ahmet Rowell [address] [phone] Malaika Guzman PA-C [address] [place] [phone] Skin exam, screening for cancer*; Rash and nonspecific skin eruption; Skin neoplasm; Hx of nonmelanoma skin cancer; Multiple nevi Allergies Active Allergy Reactions Criticality Noted Date Comments Aztreonam Hives Medium 10/11/2019 Cephalosporins Rash 05/24/2017 Chlorhexidine Hives,Rash 01/02/2022 Ciprofloxacin Diarrhea Medium 01/28/2015 Iodinated Contrast Media Abdominal pain High 019 Acute kidney failure Levofloxacin Rash Low 07/28/2019 documented as of this encounter (statuses as of 07/24/2024) Medications Medication Sig Dispensed Refills Start Date [...] Release (PriLOSEC)Indicati ons:Gastroesophage al reflux disease without esophagitis,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 Take by [...] 6 weeks 170 g 3 4 Active Econazole Nitrate 1 % External Cream (Spectazole)Indica tions:Rash and nonspecific skin eruption Apply to affected area on buttock, back and legs twice a day for 6 weeks 170 g 3 2 07/24/20 24 Discontinu ed(Refill) documented as of this encounter (statuses as of 07/24/2024) Active Problems Problem Noted Date Diagnosed Date [...] from 2018 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 05/31/2020 CKD (chronic kidney disease) stage 4, GFR 15-29 ml/min 07/17/2019 Chronic anticoagulation 04/03/2019 Vitamin D deficiency 11/17/2018 Senile osteoporosis 09/06/2018 Paroxysmal atrial fibrillation 07/08/2018 Last Assessment & Plan: Rate controlled on metoprolol Continue apixaban History of acute tubular necrosis 06/29/2018 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 IPMN (intraductal papillary mucinous neoplasm) 0 03/09/2018 Overview: MRI 02/23 FPC (current) use of systemic [...] as of this encounter (statuses as of 07/24/2024) Resolved Problems Problem Noted Date Diagnosed Date [...] chronic kidney disease 08/03/2023 08/03/2023 Atherosclerosis of northway co ronary artery without angina pectoris 02/01/2023 [...] as of this encounter (statuses as of 07/24/2024) Immunizations Name Administration Dates Next Due COVID-19 mRNA, LNP-s, No Pre serve, 2-Dose Series (Art of Click) 08/15/2021,01/31/2021,01/03/2021 COVID-19, LNP-s, No Preserve , Ruslan-sucrose, Ages 12+ (Art of Click) 03/19/2022 COVID-19, MRNA-LNP, 23-24, P F, 30 MCG/0.3 mL, 12 YRS AND ABOVE, IM (SiVerion-ComirnatCoMentis) 10/25/2023 Covid-19, Mrna, Lnp-s, Pf, B ivalent, 30 Mcg, IM, 12 yrs and above (Pfizer) 2022 Pneumococcal Conjugate Vacc, 13 Valent (Prevnar) 01/21/2016 Pneumococcal Conjugate Vacci ne, 20-valent ([id number]) 07/19/2023 Pneumococcal Polysaccharide PPV23 (Pneumovax) 01/13/2011 RSV [...] No 01/31/2024 Does the household have a [facility] hospitallar source of income? (Household - for [...] as of this encounter Progress Notes * Lyle Wright MD - 07/24/2024 2:30 PM EDT I have reviewed the relevant notes and photographs taken by LE Sommers. I have reviewed and agree with the assessment and plan. Lyle Wright MD * Malaika Guzman PA-C - 07/24/2024 2:29 PM EDT SUBJECTIVE: CC: Full Body Skin Exam HPI: Kennedy Davis is a 78 year old male seen for skin exam. Last visit on 06/27/2024. -Moderately diff SCC biopsied on L neck last visit. MRI neck - see below. Mohs scheduled this week. -New growing lesion on R wrist. -Recent fall. Always had lump on scar from previous back surgery 5 years ago on back but now doubleto tripled in size since he fell. All bruised. MRI Neck IMPRESSION: 1. Limited exam due to lack of [...] pathologically enlarged lymph nodes in the neck. DERM HISTORY Hx moderately diff SCC L neck (2023), SCC mid chest (2020-curettage), SCC R forearm (2020-curettage), BCC mid back (2021-Mohs), BCC R upper back (2021- curettage), SCC L forearm (2021-curettage), BCC R posterior ear (2021-deferred Mohs, curetted) REVIEW OF SYSTEMS: See HPI- all other findings negative Constitutional: (-) fever, chills, sweats, weight loss Cardiovascular: (-) lower extremity edema Skin: (-) no rash or new or changing moles or skin lesions Past Medical History: Diagnosis Date Abdominal aortic aneurysm (AAA) without rupture ([facility]) 07/11/2015 09/01/16: 3.78cm - repeat 1 yr 01/27/16: US: 3.87cm AAA - repeat 6 months 07/11/15: sts he had an US in the past - will check records Acute pancreatitis 03/09/2018 LIZZ (acute kidney injury) ([facility]) 06/26/2018 Aspergillosis ([facility]) 07/17/2019 history of Aspergillosis on the note on 3.[address] and AMP ATN (acute tubular necrosis) ([facility]) Bilateral pneumonia 08/08/2019 Acute, resolved? 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 Hypoglycemia associated with type 2 diabetes mellitus ([facility]) 07/21/2019 Moderate protein-calorie malnutrition ([facility]) 01/06/2021 Protein-calorie malnutrition ([facility]) 06/23/2019 Pure hypercholesterolemia Sepsis ([facility]) acute Severe malnutrition ([facility]) 02/27/2018 Stage II pressure ulcer of left buttock ([facility]) 02/06/2022 Tinea cruris 09/28/2017 Unspecified essential hypertension Uveitis OS Patient Active Problem List Diagnosis Gastroesophageal reflux disease without esophagitis HTN, goal below 140/90 Dyslipidemia, goal LDL below 70 Erythema nodosum Acquired hypothyroidism Mediastinal lymphadenopathy Spinal stenosis of lumbar region with neurogenic claudication FPC (current) use 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 Steroid-induced diabetes (HCC) IPMN (intraductal papillary mucinous neoplasm) 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HCC) History of acute tubular necrosis Paroxysmal atrial fibrillation (HCC) Senile osteoporosis Vitamin D deficiency Chronic anticoagulation CKD (chronic kidney disease) stage 4, GFR 15-29 ml/min (HCC) 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 Atherosclerosis of abdominal aorta (HCC) Telangiectasias 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) Atherosclerosis of renal artery (HCC) Chronic intestinal vascular insufficiency (HCC) History of sepsis Heart failure (HCC) Cat bite Current chronic use 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 Chronic heart failure with preserved ejection fraction (HFpEF) ([facility]) Iron deficiency anemia Hypocalcemia 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 60 Tablet 0 Tylenol 325 MG Oral [...] 30minutes before a meal. 30 Capsule 0 Vitamin B 12 500 MCG Oral Tablet Take by mouth 1 Tablet daily . Econazole Nitrate 1 % External Cream (Spectazole) Apply to affected area on buttock, back and legs twice a day for 6 weeks 170 g 3 Atorvastatin Calcium 20 MG Oral Tablet (Lipitor) [...] mouth in the morning. 180 Tablet 4 PredniSONE (DELTASONE) 20 MG Tablet Take 2 Tabs by mouth daily for 5 days. 10 Tab 0 PredniSONE (DELTASONE) 20 MG Tablet Take 2 Tabs by mouth daily for 7 days. 14 Tab 0 predniSONE 20 MG Oral Tablet (Deltasone) Take by mouth 2 Tablets in the morning for 5 days. 10 Tablet 0 No current facility-administered medications for this visit. ALLERGIES: Iodinated contrast media, Azactam [aztreonam], Ciprofloxacin, Cephalosporins, Chlorhexidine, and Levofloxacin OBJECTIVE: GEN: Healthy, alert, no distress, appears oriented, pleasant and cooperative. PSYCH: Appropriate mood and affect, alert SKIN: Detailed exam of scalp, hair, face including lids and lips, ears, neck, chest, back, abdomen,buttock, bilateral upper and lower extremities was completed and are within normal limits with the following exceptions: Large skin colored plaque on L neck 1 cm eroded skin colored papule on R wrist Scattered at the trunk and bilateral upper and lower extremities are multiple evenly pigmented brown macules and papules without significant irregularity Large firm nodule on lower back with surrounding ecchymoses Scars on back and extremities ASSESSMENT/PLAN: Biopsy proven SCC MRI without any involvement of lymph nodes. Mohs scheduled in 2 days 2. Favor SCC vs hematoma -Discussed concern for potential malignancy and recommendation of biopsy. Patient agreeable. -Biopsy of the lesion noted above to establish and confirm diagnosis. Biopsy by tangential shave biopsy was recommended which the patient was agreeable to. The procedure, risks, benefits, indications, alternatives, and complications were discussed with the patient and informed consent was obtained.Specifically, the expectation of a permanent scar and risk of possible infection were explained to the patient and understood. Time out called. Patient identified, procedure verified, site identifiedand verified. Patient and staff present in agreement. Area prepped with alcohol and anesthetized with 2.5 mL of 0.5% lidocaine with epinephrine. Biopsy via horizontal technique was performed. Hemostasis was obtained with aluminum chloride and electrocautery. Petrolatum and bandage were applied. Thepatient tolerated the procedure well without complications and with minimal blood loss. Patient instructed in routine post-op care. Specimen(s) sent to pathology. We will call with biopsy results andarrange appropriate follow-up care as indicated. DID NOT CURETTE. 3. Multiple benign-appearing nevi - No features concerning for malignancy on exam today. - Continue to monitor with monthly self-skin exams. - Patient counseled on ABCDEs of melanoma. - Discussed and emphasized importance of sun protection including broadband, water-resistant, SPF 30 or greater sunscreen with reapplication q2h or after swimming/excessive perspiration and sun protective attire (wide-brimmed hats, long pants/shirt, sunglasses). - Patient to contact physician for any new or changing lesions or other concerns. 4. ?Hematoma -They are going to get in touch with PCP to see if anything more needs done. Will reach out to me if cannot get a hold of PCP. Consider US 5. History of Nonmelanoma Skin Cancer -Scars well healed without clinical evidence of local recurrence -Sun protection (including sun avoidance, sun screen and protective clothing) and skin checks -Advised to perform routine (at least once a year) skin self-examinations. Advised to contact theirdermatologist immediately if they notice any new or changing skin lesions. I have provided a significant and separately identifiable visit with today's procedure because an extensive amount of counseling related to the procedure was required due to biopsy . Patient with today. Follow-up: 3-4 months Photos taken 15-25, patient consented to photos. Contact patient at home Ok to leave results on message: Yes Able to speak to spouse Patient Phone Numbers Applicable photos (if any) and chart reviewed by Dr. Juan Wright The patient was encouraged to contact me with any further questions or concerns. Malaika Guzman PA-C 07/24/2024 2:29 PM documented in this encounter Nursing Notes * Arina Nguyen LPN - 07/24/2024 2:18 PM EDT Chief Complaint Patient presents with Skin Check FBSE - HX multiple BCC, SCC's. Concerning spot right lower arm. States spot on left side of neck keeps oozing - he is due to have Mohs in 2 days. 06/27/2024 (in office), Visit date not found (telemedicine) documented in this encounter Plan of Treatment Upcoming Encounters Date Type Department Care Team (Late st Contact Info) Description 07/26/2024 7:30 AM EDT Office Visit [facility] [address] [facility] [address] Supri[facility] Fernandes [facility] [address] 08/09/2024 12:30 PM EDT Appointment Radiology, [address] [address] 08/14/2024 11:00 AM EDT Office Visit Nephrology, [address] [place] [address] Keisha Gunn MD [address] [place] [address] 08/21/2024 2:00 PM EDT Office [facility] [address] [place] [phone] Fuentes Ashton MD 21 [facility] [place] [address] 12/21/2024 1:30 PM EST [facility] [address] [place] [address] Malaika Guzman PA-C 27 [place] [address] 01/22/2025 1:30 PM EDT PulmDiagnostic Pulmonary Function Lab [facility] [address] [facility] [place] [address] [address] [facility] [place] [address] 01/22/2025 2:00 PM EDT Office Visit Pulmonary Medicine [facility] [address] [facility] [place] [phone] Dominguez Aguilar MD [address] [facility] [place] [address] 02/05/2025 10:00 AM EDT Office Visit Rheumatology, [address] [place] [phone] Rafael Hernandez PA-C [address] [place] [address] Pending Results Name Type Priority Associated Diagnoses Date /Time SURGICAL PATHOLOGY Pathology Routine Skin neoplasm 07/24/2024 2:48 PM EDT Scheduled Procedures Name Priority Associated [...] 110 12/2022, 05/18/2023, Additional history exists GFR 01/09/2025 [...] this encounter Medical Devices Implanted Type Area Hops Farmworker Device Identifier Shelf Expiration Date Model / Serial / Lot Mesh Perfix Plug Lg [id number] - [id number] Implanted:Qty: 1 on 02/07/2019 by Jonathan Correia DO at OR [facility] Right: Groin CR BARD : DAVOL 09/04/2023 [id number] / / [id number] documented as of this encounter Procedures Procedure Name Priority Date/Time Associated Diagnosis Comments DERM EXAM - DERM (IMAGES ONLY, NO REPORT) Routine 07/24/2024 2:57 PM EDT Rash and nonspecific skin eruption Skin exam, screening for cancer Skin neoplasm Hx of nonmelanoma skin cancer Multiple nevi documented in this encounter Results * DERM EXAM - DERM (IMAGES ONLY, NO REPORT) (07/24/2024 2:57 PM EDT) Narrative Scheduling, Silent - 07/24/2024 2:57 PM EDT This is an imaging study not interpreted or resulted by a [facility] or [facility] contracted radiologist. Malaika Guzman PA-C RADIOLO GY ([facility]) documented in this encounter Visit Diagnoses Diagnosis Skin exam, screening for cancer- Primary Screening for malignant neoplasm of the skin Rash and nonspecific skin eruption Rash and other nonspecific skin eruption Skin neoplasm Neoplasm of unspecified nature of bone, soft tissue, and skin Hx of nonmelanoma skin cancer Personal history of other malignant neoplasm of skin Multiple nevi Benign neoplasm of skin, site unspecified documented in this encounter Advance Directives Documents on File Type Date Recorded Patient Healthcare Administrative Assistant Expl anation Advance Directives and Living Will [...] or by statute hierarchy) [facility] Adult Child Emergency Contact Care Teams Wildland Firefighter Relationship Specialty Start Date End Date Fuentes Ashton MD [address] [phone] PCP - General Family Medicine 01/30/22 documented as of this encounter
--- OUTSIDE RECORDS SUMMARY | 2024-09-30 18:21 | External Medical Summary | Summary of Care ---
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 Take by [...] from 2019 Atherosclerotic heart diseas e of [place] coronary artery without angina pectoris 05/31/2020 CKD (chronic kidney disease) stage 4, GFR 15-29 ml/min 07/17/2019 Chronic anticoagulation 04/03/2019 Vitamin D deficiency 11/17/2018 Senile osteoporosis 09/06/2018 Paroxysmal atrial fibrillation 07/08/2018 Last Assessment & Plan: Rate controlled on metoprolol Continue apixaban History of acute tubular necrosis 06/29/2018 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 IPMN (intraductal papillary mucinous neoplasm) 0 03/09/2018 Overview: MRI 02/23 salvage determiner (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) use 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 Steroid-induced diabetes [...] mRNA, LNP-s, No Pre serve, 2-Dose Series (HackPad) 08/15/2021,01/31/2021,01/03/2021 COVID-19, LNP-s, No Preserve , Ruslan-sucrose, Ages 12+ (Pfizer) 03/19/2022 COVID-19, MRNA-LNP, 23-24, P F, 30 MCG/0.3 mL, 12 YRS AND ABOVE, IM (Aldagen-Comirnaty) 10/25/2023 Covid-19, Mrna, Lnp-s, Pf, B ivalent, 30 Mcg, IM, 12 yrs and above (HackPad) 2022 Pneumococcal Conjugate Vacc, 13 Valent (Prevnar) 01/21/2016 Pneumococcal Conjugate Vacci ne, 20-valent ([id number]) 07/19/2023 Pneumococcal Polysaccharide PPV23 (Pneumovax) 01/13/2011 RSV [...] No 01/31/2024 Does the household have a [place] [facility] source of income? (Household - for [...] Description 07/26/2024 7:30 AM EDT Office Visit [facility] Surgery [facility] [address] [place] [address] Supriya Fernandes MD 200 [place] [address] 08/09/2024 12:30 PM EDT Appointment Radiology, [facility] [address] [place] [address] 08/14/2024 11:00 AM EDT Office Visit Nephrology, [facility] [address] [place] [address] Keisha Gunn MD [address] [place] [address] 08/21/2024 2:00 PM EDT Office Visit Family [facility] [place] [address] [facility] [place] [phone] Fuentes Ashton MD 21 [place] [address] 12/21/2024 1:30 PM EST Office Visit Dermatology, Melissa Desir [place] [address] [place] [address] Malaika Guzman PA-C [address] [place] [address] 01/22/2025 1:30 PM EDT PulmDiagnostic Pulmonary Function Lab [facility] [address] [place] [address] [address] [place] [address] 01/22/2025 2:00 PM EDT Office Visit Pulmonary Medicine [facility] [place] [address] [place] [address] [phone] Domignuez Aguilar MD [address] [facility] [place] [address] 02/05/2025 10:00 AM EDT Office Visit Rheumatology, [address] [place] [address] Rafael Hernandez PA-C [address] [place] [address], [place] [address] Scheduled Procedures Name Priority Associated Diagnoses Date/Ti [...] this encounter Medical Devices Implanted Type Area Gasoline Finisher Device Identifier Shelf Expiration Date Model / Serial / Lot Mesh Perfix Plug Lg [id number] - [id number] Implanted:Qty: 1 on 02/07/2019 by Jonathan Correia DO at OR [facility] Right: Groin CR BARD : DAVOL 09/04/2023 [id number] / / [id number] documented as of this encounter Procedures Procedure [...] contracted radiologist. Malaika Guzman PA-C RADIOLO GY ([facility]) documented in this encounter Advance Directives Documents on File Type Date Recorded Patient Prefitter Doors Expl anation Advance Directives and Living Will [...] Colón Adult Child Emergency Contact Care Teams Coder Relationship Specialty Start Date End Date Fuentes Ashton MD [address] [place] [address] PCP - General Family Medicine 01/30/22 documented as of this encounter
--- OUTSIDE RECORDS SUMMARY | 2024-09-30 18:21 | External Medical Summary | Summary of Care ---
Author Name Unknown Organization [facility] Address [address] [place] [place] [address] Phone [phone] Care Team Providers Care Tank Setter Helper Name Role Phone Fuentes Ashton MD Primary Care Provider [phone] [phone] Reason for Visit * Reason Onset Date Comments Appointment 07/25/2024 Encounter Details Date Type Department Care Team (Late st Contact Info) Description 07/25/2024 Telephone Dermatology [facility] [place] [address] [place] [address] Supriya Fernandes MD 200 [facility] [address] Appointment Allergies Active Allergy Reactions Criticality Noted Date Comments Aztreonam Hives Medium 10/11/2019 Cephalosporins Rash 05/24/2017 Chlorhexidine Hives,Rash 01/02/2022 Ciprofloxacin Diarrhea Medium 01/28/2015 Iodinated Contrast Media Abdominal pain High 019 Acute kidney failure Levofloxacin Rash Low 07/28/2019 documented as of this encounter (statuses as of 07/27/2024) Medications Medication Sig Dispensed Refills Start Date [...] Delayed Release (PriLOSEC)Indicatio ns:Gastroesophageal reflux disease without esophagitis,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) use 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 Take by [...] as of this encounter (statuses as of 07/27/2024) Active Problems Problem Noted Date Diagnosed Date [...] from 2018 Atherosclerotic heart diseas e of [place] coronary artery without angina pectoris 05/31/2020 CKD (chronic kidney disease) stage 4, GFR 15-29 ml/min 07/17/2019 Chronic anticoagulation 04/03/2019 Vitamin D deficiency 11/17/2018 Senile osteoporosis 09/06/2018 Paroxysmal atrial fibrillation 07/08/2018 Last Assessment & Plan: Rate controlled on metoprolol Continue apixaban History of acute tubular necrosis 06/29/2018 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 IPMN (intraductal papillary mucinous neoplasm) 0 03/09/2018 Overview: MRI 02/23 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) use 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 Steroid-induced diabetes [...] as of this encounter (statuses as of 07/27/2024) Resolved Problems Problem Noted Date Diagnosed Date Resolved Date Acute respiratory failure with hypoxia 03/03/2024 03/03/2024 Fever 02/27/2024 03/03/2024 Acute gout of multiple sites 02/27/2024 03/03/2024 Type 2 diabetes mellitus without complication 02/07/2002/07/2024 Hospital discharge follow-up 09/20/2023 03/03/2024 Scrotal irritation 09/12/2023 Bilateral cellulitis of lower leg 09/12/2023 03/03/2024 Acute on chronic anemia 09/11/202302/2023 Cellulitis 09/09/2023 03/03/2024 Encephalopathy acute 09/09/2023 023 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 08/03/2023 08/03/2023 Atherosclerosis of [place] co ronary artery without angina pectoris 02/01/2023 [...] and AMP Hypertensive heart disease w [facility] heart failure and stage 3 chronic [...] as of this encounter (statuses as of 07/27/2024) Immunizations Name Administration Dates Next Due COVID-19 mRNA, LNP-s, No Pre serve, 2-Dose Series ([employer]) 08/15/2021,01/31/2021,01/03/2021 COVID-19, LNP-s, No Preserve , Ruslan-sucrose, Ages 12+ (Pfizer) 03/19/2022 COVID-19, MRNA-LNP, 23-24, P F, 30 MCG/0.3 mL, 12 YRS AND ABOVE, IM ([employer]) 10/25/2023 Covid-19, Mrna, Lnp-s, Pf, B ivalent, 30 Mcg, IM, 12 yrs and above ([employer]) 2022 Pneumococcal Conjugate Vacc, 13 Valent (Prevnar) 01/21/2016 Pneumococcal Conjugate Vacci ne, 20-valent ([id number]) 07/19/2023 Pneumococcal Polysaccharide PPV23 (Pneumovax) 01/13/2011 RSV [...] Telephone Encounter - Sully Dale LPN - 07/27/2024 3:05 PM EDT Called pt and spoke to daughter - daughter stated that bandage fell off this morning and he's bleeding bright red blood through the 4x4 bandage they applied after. Per Dr. Fernandes, offered to have pt come in. * Telephone Encounter - Dari Donahue LPN - 07/27/2024 3:03 PM EDT Pt added to schedule for today, pt has active bleeding through bandage. * Telephone Encounter - Lashay Durant, DEVORAH - 07/27/2024 2:32 PM EDT Pt called in. Had MOHS surgery yesterday, concerned about bleeding. Please call * Telephone Encounter - Vannessa Nettles OSA - 07/25/2024 5:38 PM EDT Pts called because they never received a call or any other information about the MOHS procedure scheduled for tomorrow, Jul 26. She said they are still coming in for the appt but did not know if there was any prep that they needed to do for the visit. I advised I would put a note in the account. If someone sees this before the visit time, please reach out to PT to discuss. Thank you documented in this encounter Plan of Treatment Upcoming Encounters Date Type Department Care Team (Late st Contact Info) Description 07/27/2024 4:00 PM EDT Office Visit [facility] [address], [place] [address] Supriya Fernandes MD [address] [place] [address] [place] [address] 07/28/2024 11:30 AM EDT Office Visit [facility] Surgery [facility] [address] [address] Supriya Fernandes MD [address] [place] [address] [place] [address] 07/31/2024 8:00 AM EDT Office Visit [facility] [address], [place] [address] Supriya Fernandes MD [address] [place] [address] [place] [address] 08/09/2024 12:30 PM EDT Appointment Radiology, [address], [place] [address] 08/14/2024 11:00 AM EDT Office Visit Nephrology, [facility] [address] Keisha Gunn MD 400 [facility] [place] [address] 08/21/2024 2:00 PM EDT Office Visit [facility] [place] [facility] [phone] Fuentes Ashton MD 21 [facility] [address] 12/21/2024 1:30 PM EST Office Visit Dermatology, [facility] 27 [facility] [place] [address] [place] [address] Malaika Guzman PA-C 27 [facility] [address] 01/22/2025 1:30 PM EDT PulmDiagnostic Pulmonary Function Lab [facility] [address] [facility] [place] [address] [address], [address]ang [place], [place] [address] 01/22/2025 2:00 PM EDT Office Visit Pulmonary Medicine [facility] [address] [facility] [place] [phone] Dominguez Aguilar MD 217 [address] [facility] [place] [address] 02/05/2025 10:00 AM EDT Office Visit Rheumatology, [address], [place] [address] Rafael Hernandez, PA-C [address] [place] [address], [place] [address] Scheduled Procedures Name Priority Associated Diagnoses Date/Ti [...] this encounter Medical Devices Implanted Type Area Vinyl Welder And Fabricator Device Identifier Shelf Expiration Date Model / Serial / Lot Mesh Perfix Plug Lg [id number] - [id number] Implanted:Qty: 1 on 02/07/2019 by Jonathan Correia, DO at OR [facility] Right: Lelo KEBEDE BARD : MARIE 09/04/2023 [id number] / / [id number] documented as of this encounter Advance Directives Documents on File Type Date Recorded Patient Locomotive Inspector Expl anation Advance Directives and Living Will [...] statute hierarchy) [facility] Adult Child Emergency Contact Care Teams Tank Setter Helper Relationship Specialty Start Date End Date Feuntes Ashton MD 21 [place] [address] PCP - General Family Medicine 01/30/22 documented as of this encounter
--- OUTSIDE RECORDS SUMMARY | 2024-09-30 18:21 | External Medical Summary | Summary of Care ---
Author Name Unknown Organization [facility] Address [address] [place] [facility] [place] [address] Phone [phone] Care Team Providers Care Presentation Manager Name Role Phone Fuentes Ashton MD Primary Care Provider [phone] Reason for Visit * Reason Onset Date Comments Appointment 07/25/2024 Encounter Details Date Type Department Care Team (Late st Contact Info) Description 07/25/2024 Telephone Dermatology [facility] [place] [address] [place] [address] Supriya Fernandes MD 200 [facility] [address] Appointment Allergies Active Allergy Reactions Criticality Noted [...] Delayed Release (PriLOSEC)Indicatio ns:Gastroesophageal reflux disease without esophagitis,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 heart failure and stage 3 [...] mRNA, LNP-s, No Pre serve, 2-Dose Series ([employer]) 08/15/2021,01/31/2021,01/03/2021 COVID-19, LNP-s, No Preserve , Ruslan-sucrose, Ages 12+ (Pfizer) 03/19/2022 COVID-19, MRNA-LNP, 23-24, P F, 30 MCG/0.3 mL, 12 YRS AND ABOVE, IM ([facility]) 10/25/2023 Covid-19, Mrna, Lnp-s, Pf, B ivalent, 30 Mcg, IM, 12 yrs and above ([employer]) 2022 Pneumococcal Conjugate Vacc, 13 Valent (Prevnar) 01/21/2016 Pneumococcal Conjugate Vacci ne, 20-valent ([id number]) 07/19/2023 Pneumococcal Polysaccharide PPV23 (Pneumovax) 01/13/2011 RSV [...] Telephone Encounter - Lashay Durant OSA - 07/27/2024 2:32 PM EDT Pt called [...] Team (Late st Contact Info) Description 07/28/2024 11:30 AM EDT Office Visit [facility] Surgery [facility] 200 [place] [address] Supriya Fernandes MD 200 [place] [address] 07/31/2024 8:00 AM EDT Office Visit [facility] Surgery [facility] 200 [place] [address] Supriya Fernandes MD 200 [place] [address] 08/09/2024 12:30 PM EDT Appointment Radiology, [facility] 400 [place] [address] 08/14/2024 11:00 AM EDT Office Visit Nephrology, [facility] 400 [place] [address] Keisha Gunn MD 400 [place] [address] 08/21/2024 2:00 PM EDT Office Visit Family [facility] 21 [facility] [place] [place] [phone] Fuentes Ashton MD 21 [place] [address] 12/21/2024 1:30 PM EST Office Visit Dermatology, [place] 27 [address] [facility] 140 [place] [address] Malaika Guzman PA-C 27 [place] [address] 01/22/2025 1:30 PM EDT PulmDiagnostic Pulmonary Function Lab [facility] [address] [facility] [place] [address] [address], [address] Sonali Thang [place] [address] 01/22/2025 2:00 PM EDT Office Visit Pulmonary Medicine [facility] [address] [place] [phone] Dominguez Aguilar MD [address] [place] [address] 02/05/2025 10:00 AM EDT Office Visit Rheumatology, [address], [place] [address] Rafael Hernandez PA-C [address] [place] [address], [place] [address] Scheduled Procedures Name Priority Associated Diagnoses Date/Ti [...] this encounter Medical Devices Implanted Type Area Jboss Developer Device Identifier Shelf Expiration Date Model / Serial / Lot Mesh Perfix Plug Lg [id number] - [id number] Implanted:Qty: 1 on 02/07/2019 by Jonathan Correia DO at OR [facility] Right: Groin CR BARD : DAVOL 09/04/2023 [id number] / / [id number] documented as of this encounter Advance Directives Documents on File Type Date Recorded Patient Brand Ambassadors Promotional Sales Expl anation Advance Directives and Living [...] [place] Adult Child Emergency Contact Care Teams Presentation Manager Relationship Specialty Start Date End Date Fuentes Ashton MD 21 [place] [phone] PCP - General Family Medicine 01/30/22 documented as of this encounter
--- OUTSIDE RECORDS SUMMARY | 2024-09-30 18:21 | External Medical Summary | Summary of Care ---
Author Name Unknown Organization [facility] Address [address] [place] [facility] [place] [address] Phone [phone] Care Team Providers Care Contract Sheltered Workshop Supervisor Name Role Phone Fuentes Ashton MD Primary Care Provider [phone] Reason for Visit * Reason Onset Date Comments Appointment 07/25/2024 Encounter Details Date Type Department Care Team (Late st Contact Info) Description 07/25/2024 Telephone Dermatology [facility] [place] [address] [place] [address] Supriya Fernandes MD 200 [facility] [address] Appointment Allergies Active Allergy Reactions Criticality Noted [...] from 2018 Atherosclerotic heart diseas e of [place] coronary artery without angina pectoris 05/31/2020 CKD [...] chronic kidney disease 08/03/2023 08/03/2023 Atherosclerosis of [place] co ronary artery without angina pectoris 02/01/2023 [...] heart disease w [facility] heart failure and stage 3 chronic [...] mRNA, LNP-s, No Pre serve, 2-Dose Series ([employer]) 08/15/2021,01/31/2021,01/03/2021 COVID-19, LNP-s, No Preserve , Ruslan-sucrose, Ages 12+ (Pfizer) 03/19/2022 COVID-19, MRNA-LNP, 23-24, P F, 30 MCG/0.3 mL, 12 YRS AND ABOVE, IM ([facility]) 10/25/2023 Covid-19, Mrna, Lnp-s, Pf, B ivalent, 30 Mcg, IM, 12 yrs and above ([employer]) 2022 Pneumococcal Conjugate Vacc, 13 Valent (Prevnar) 01/21/2016 Pneumococcal Conjugate Vacci ne, 20-valent ([id number]) 07/19/2023 Pneumococcal Polysaccharide PPV23 (Pneumovax) 01/13/2011 RSV [...] encounter Miscellaneous Notes * Telephone Encounter - Dari Donahue LPN - 07/27/2024 3:03 PM EDT Pt added to schedule for today, pt has active bleeding through bandage. * Telephone Encounter - Lashay Durant OSA [...] Description 07/27/2024 4:00 PM EDT Office Visit [facility] Surgery [address] [address] Supriya Fernandes MD [address] [place] [address] 07/28/2024 11:30 AM EDT Office Visit [facility] Surgery [address] [address] Supriya Fernandes MD [address] [place] [address] 07/31/2024 8:00 AM EDT Office Visit [facility] [address] [address] Supriya Fernandes MD [address] [place] [address] 08/09/2024 12:30 PM EDT Appointment Radiology, [address] [address] 08/14/2024 11:00 AM EDT Office Visit Nephrology, [address] [address] Keisha Gunn MD [address] [place] [address] 08/21/2024 2:00 PM EDT Office Visit [facility] [phone] Fuentes Ashton MD 21 [facility] [place] [address] 12/21/2024 1:30 PM EST [facility] [address] [facility] [address] [place] [address] Malaika Guzman PA-C 27 [place] [address] 01/22/2025 1:30 PM EDT PulmDiagnostic Pulmonary Function Lab [facility] 217 S [facility] [place] [address] [address], [address] [facility] [place] [address] 01/22/2025 2:00 PM EDT Office Visit Pulmonary Medicine [facility] 217 [facility] [place] [phone] Dominguez Aguilar MD 217 [address] [facility] [place] [address] 02/05/2025 10:00 AM EDT Office Visit Rheumatology, [address] [place] [address] Rafael Hernandez PA-C [address] [place] [address], [place] [address] Scheduled Procedures Name Priority Associated Diagnoses Date/Ti [...] 01/31/2024, 1112/2022, 05/18/2023, Additional history exists GFR 01/09/2025 07/12/2024, [...] this encounter Medical Devices Implanted Type Area Associate Embalmer/Funeral Director Device Identifier Shelf Expiration Date Model / Serial / Lot Mesh Perfix Plug Lg [id number] - [id number] Implanted:Qty: 1 on 02/07/2019 by Jonathan Correia DO at OR [facility] Right: Lelo KEBEDE BARD : MARIE 09/04/2023 [id number] / / [id number] documented as of this encounter Advance Directives Documents on File Type Date Recorded Patient Ceo & Founder Expl anation Advance Directives and Living Will [...] statute hierarchy) [facility] Adult Child Emergency Contact Care Teams Contract Sheltered Workshop Supervisor Relationship Specialty Start Date End Date Fuentes Ashton MD 21 [place] [phone] PCP - General Family Medicine 01/30/22 documented as of this encounter
--- OUTSIDE RECORDS SUMMARY | 2024-09-30 18:21 | External Medical Summary | Summary of Care ---
Author Name Unknown Organization [facility] Address [address] [facility] [place] [address] Phone [phone] Care Team Providers Care Field Agronomist Name Role Phone Fuentes Ashton MD Primary Care Provider [phone] Reason for Visit * Reason Onset Date Comments Health Maintenance 07/27/2024 Encounter Details Date Type Department Care Team (Late st Contact Info) Description 07/27/2024 Telephone [facility] [place] 21 [facility] [place] [place] [address] Fuentes Ashton MD 21 [facility] [place] [address] Health Maintenance Allergies Active Allergy Reactions Criticality Noted Date [...] from 2018 Atherosclerotic heart diseas e of [place] coronary artery without angina pectoris 05/31/2020 CKD (chronic kidney disease) stage 4, GFR 15-29 ml/min 07/17/2019 Chronic anticoagulation 04/03/2019 Vitamin D deficiency 11/17/2018 Senile osteoporosis 09/06/2018 Paroxysmal atrial fibrillation 07/08/2018 Last Assessment & Plan: Rate controlled on metoprolol Continue apixaban History of acute tubular necrosis 06/29/2018 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 IPMN (intraductal papillary mucinous neoplasm) 0 03/09/2018 Overview: 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) use 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 08/03/2023 08/03/2023 Atherosclerosis of [place] co ronary artery without angina pectoris 02/01/2023 [...] Cachexia 08/30/2019 05/31/2020 Hypertensive heart disease w [facility] heart failure and stage 5 chronic [...] PL and AMP Hypertensive heart disease w [facility] heart failure and stage 3 chronic [...] mRNA, LNP-s, No Pre serve, 2-Dose Series (dianboom) 08/15/2021,01/31/2021,01/03/2021 COVID-19, LNP-s, No Preserve , Ruslan-sucrose, Ages 12+ (Pfizer) 03/19/2022 COVID-19, MRNA-LNP, 23-24, P F, 30 MCG/0.3 mL, 12 YRS AND ABOVE, IM ([facility]) 10/25/2023 Covid-19, Mrna, Lnp-s, Pf, B ivalent, 30 Mcg, IM, 12 yrs and above (dianboom) 2022 Pneumococcal Conjugate Vacc, 13 Valent (Prevnar) 01/21/2016 Pneumococcal Conjugate Vacci ne, 20-valent ([id number]) 07/19/2023 Pneumococcal Polysaccharide PPV23 (Pneumovax) 01/13/2011 RSV [...] encounter Miscellaneous Notes * Telephone Encounter - Giovanna Jaramillo LPN - 07/27/2024 10:34 AM EDT Care Gaps Comprehensive Care Outreach Last Office/Telemedicine Visit: 03/31/2024 (in office), 02/28/2020 (telemedicine) Next Office Visit: 08/21/2024 Hemoglobin AIC Results: Lab Results Component Value Date/Time HEMOGLOBIN A1C - [facility] 6.0 (H) 01/31/2024 09:42 AM HEMOGLOBIN A1C - [facility] 6.3 (H) 09/09/2023 04:20 AM HEMOGLOBIN A1C - [facility] 5.7 (H) 05/18/2023 10:21 AM HEMOGLOBIN A1C - [facility] 5.9 (H) 10/21/2020 09:28 AM HEMOGLOBIN A1C - [facility] 6.2 (H) 10/10/2019 10:16 AM HEMOGLOBIN A1C - [facility] 7.2 (H) 07/26/2019 05:07 AM BP Readings from Last 1 Encounters: 06/13/24 128/62 Reviewed Health Maintenance below: Health Maintenance Topic Date Due Adult Wellness Visit 03/14/2020 Diabetic Eye Exam 07/19/2024 Diabetic Foot Exam 07/19/2024 HbA1c 08/02/2024 Care Gap Outreach Action Taken: Left message documented in this encounter Plan of Treatment Upcoming Encounters Date Type Department Care Team (Late st Contact Info) Description 07/28/2024 11:30 AM EDT Office Visit [facility] Surgery [address] [address] Supriya Fernandes MD [address] [place] [address] 07/31/2024 8:00 AM EDT Office Visit [address] [address] Supriya Fernandes MD [address] [place] [address] 08/09/2024 12:30 PM EDT Appointment Radiology, [address] [place] [address] 08/14/2024 11:00 AM EDT Office Visit [address]phrology, [address] [address] Keisha Gunn MD [address] [place], [place] [address] [address] 08/21/2024 2:00 PM EDT Office Visit Family [address] [place] [phone] Fuentes Ashton MD 21 [facility] [place] [address] 12/21/2024 1:30 PM EST Office Visit Dermatology, [place] [address] [place] [address] [place] [address] Malaika Guzman PA-C 27 [place] [address] 01/22/2025 1:30 PM EDT PulmDiagnostic Pulmonary Function Lab [facility] [place] [address] [place] [address] [address], [address] [facility] [place] [address] 01/22/2025 2:00 PM EDT Office Visit Pulmonary Medicine [facility] [place] 217 [facility] [place] [phone] Dominguez Aguilar MD 217 S [facility] [place] [address] 02/05/2025 10:00 AM EDT Office Visit Rheumatology, [address], [place] [phone] Rafael Hernandez, PAJackiC [address] [place] [address], [place] [address] Scheduled Procedures Name Priority Associated Diagnoses Date/Ti [...] 05/18/2023, Additional history exists GFR 01/09/2025 07/12/2024, 080 12/2023, 05/25/2024, Additional history exists TSH 01/30/2025 [...] this encounter Medical Devices Implanted Type Area Sheep Farm Manager Device Identifier Shelf Expiration Date Model / Serial / Lot Mesh Perfix Plug Lg [id number] - [id number] Implanted:Qty: 1 on 02/07/2019 by Jonathan Correia, DO at OR [facility] Right: Lelo KEBEDE BARD : MARIE 09/04/2023 [id number] / / [id number] documented as of this encounter Advance Directives Documents on File Type Date Recorded Patient Principal Ios Developer Expl anation Advance Directives and Living [...] Colón Adult Child Emergency Contact Care Teams Field Agronomist Relationship Specialty Start Date End Date Fuentes Ashton MD 21 [place] [phone] PCP - General Family Medicine 01/30/22 documented as of this encounter
--- OUTSIDE RECORDS SUMMARY | 2024-09-30 18:22 | External Medical Summary | Summary of Care ---
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) [...] croix coronary artery without angina pectoris 05/31/2020 CKD [...] mRNA, LNP-s, No Pre serve, 2-Dose Series ([employer]) 08/15/2021,01/31/2021,01/03/2021 COVID-19, LNP-s, No Preserve , Ruslan-sucrose, Ages 12+ ([employer]) 03/19/2022 COVID-19, MRNA-LNP, 23-24, P F, 30 MCG/0.3 mL, 12 YRS AND ABOVE, IM ([employer]) 10/25/2023 Covid-19, Mrna, Lnp-s, Pf, B ivalent, 30 Mcg, IM, 12 yrs and above (Pfizer) 2022 Pneumococcal Conjugate Vacc, 13 Valent (Prevnar) 01/21/2016 Pneumococcal Conjugate Vacci ne, 20-valent ([id number]) 07/19/2023 Pneumococcal Polysaccharide PPV23 (Pneumovax) 01/13/2011 RSV [...] No 01/31/2024 Does the household have a [facility] source of income? (Household - for ages [...] as of this encounter Progress Notes * Malaika Guzman PA-C - 07/24/2024 2:29 [...] Acute pancreatitis 03/09/2018 LIZZ (acute kidney injury) ([facility]) 06/26/2018 Aspergillosis ([facility]) 07/17/2019 history of Aspergillosis on the note on 3.[address] and AMP ATN (acute tubular necrosis) ([facility]) Bilateral pneumonia 08/08/2019 Acute, resolved? 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 Hypoglycemia associated with type 2 diabetes mellitus ([facility]) 07/21/2019 Moderate protein-calorie malnutrition ([facility]) 01/06/2021 Protein-calorie malnutrition ([facility]) 06/23/2019 Pure hypercholesterolemia Sepsis ([facility]) acute Severe malnutrition ([facility]) 02/27/2018 Stage II pressure ulcer of left buttock ([facility]) 02/06/2022 Tinea cruris 09/28/2017 Unspecified essential hypertension Uveitis OS Patient Active Problem List Diagnosis Gastroesophageal reflux disease without esophagitis HTN, goal below 140/90 Dyslipidemia, goal LDL below 70 Erythema nodosum Acquired hypothyroidism Mediastinal lymphadenopathy Spinal stenosis of lumbar region with neurogenic claudication 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 ([facility]) Atherosclerosis of renal artery ([facility]) Chronic intestinal vascular insufficiency (HCC) History of sepsis Heart failure ([facility]) Cat bite Current chronic use 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 Chronic heart failure with preserved ejection fraction (HFpEF) ([facility]) Iron deficiency anemia Hypocalcemia 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) 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 ([facility]) COPD, group B, by GOLD 2017 classification ([facility]) Chronic gout due to renal impairment of [...] 7:30 AM EDT Office Visit [facility] Surgery [facility] [address] [place] [address] Supriya Fernandes MD 200 [place] [address] 08/09/2024 12:30 PM EDT Appointment Radiology, [address] [place] [address] 08/14/2024 11:00 AM EDT Office Visit Nephrology, [address] [place] [address] Keisha Gunn MD [address] [place], [place] [address] [address] 08/21/2024 2:00 PM EDT Office Visit [address] [place] [phone] Fuentes Ashton MD 21 [place] [address] 12/21/2024 1:30 PM EST Office Visit Dermatology, [place] Desir [place] [address] [place] [address] Malaika Guzman PA-C [address] [place] [address] 01/22/2025 1:30 PM EDT PulmDiagnostic Pulmonary Function Lab [facility] [address] [facility] [place] [address] [address], [address] [facility] [place] [address] 01/22/2025 2:00 PM EDT [facility] [place] [address] [facility] [place] [phone] Dominguez Aguilar MD [address] [place] [facility] [place] [facility] [place] [address] 02/05/2025 10:00 AM EDT Office Visit Rheumatology, [address] [place] [address] Rafael Hernandez, PA-C [address] [place] [address], [place] [address] Pending Results Name Type Priority Associated Diagnoses [...] encounter Medical Devices Implanted Type Area Director [employer] Device Identifier Shelf Expiration Date Model / Serial / Lot Mesh Perfix Plug Lg [id number] - [id number] Implanted:Qty: 1 on 02/07/2019 by Jonathan Correia DO at OR [facility] Right: Groin CR BARD : DAVOL 09/04/2023 [id number] / / [id number] documented as of this encounter Procedures Procedure [...] interpreted or resulted by a [facility] or [employer] contracted radiologist. 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
--- OUTSIDE RECORDS SUMMARY | 2024-09-30 18:22 | External Medical Summary | Summary of Care ---
Author Name Unknown Organization [facility] Address [address] [place] [address] Phone [phone] Care Team Providers Care Envelope Cutter Name Role Phone Fuentes Ashton MD Primary Care Provider [phone] Reason for Referral * Precert (Within 10 days (routine)) - Authorized Specialty Diagnoses / Procedures Referred By Contac t Referred To Contact Radiology Diagnoses Squamous cell carcinoma of neck Procedures MR SOFT TISSUE NECK WITHOUT CONTRAST Supriya Fernandes MD [address] [place] [address] Referral ID Status Reason Start Date Expiration Date V isits Requested Visits Authorized [id number] Authorized 07/04/2024 09/02/2024 999 999 Reason for Visit * Precert (Within 10 days (routine)) - Authorized Specialty Diagnoses / Procedures Referred By Contac t Referred To Contact Radiology Diagnoses Squamous cell carcinoma of neck Procedures MR SOFT TISSUE NECK WITHOUT CONTRAST Supriya Fernandes MD [address] [place] [address] Referral ID Status Reason Start Date Expiration Date V isits Requested Visits Authorized [id number] Authorized 07/04/2024 09/02/2024 999 [id number] Encounter Details Date Type Department Care Team (Latest Contact Info) Description 07/19/2024 10:05 AM EDT - 07/19/2024 11:59 PM EDT Hospital Encounter Radiology, [address] [place] [phone] Arrived Discharge Disposition: Home - Self Care Allergies Active Allergy Reactions Criticality Noted Date Comments Aztreonam Hives Medium 10/11/2019 Cephalosporins Rash 05/24/2017 Chlorhexidine Hives,Rash 01/02/2022 Ciprofloxacin Diarrhea Medium 01/28/2015 Iodinated Contrast Media Abdominal pain High 019 Acute kidney failure Levofloxacin Rash Low 07/28/2019 documented as of this encounter (statuses as of 07/20/2024) Medications Medication Sig Dispensed Refills Start Date [...] by mouth 1 Tablet daily . Active Econazole Nitrate 1 % External Cream (Spectazole)Indicat ions:Rash and nonspecific skin eruption Apply to affected area on buttock, back and legs twice a day for 6 weeks 170 g 3 09/14/2022 Active Atorvastatin Calcium 20 MG Oral Tablet [...] the morning. 180 Tablet 4 07/17/2024 Active documented as of this encounter (statuses as of 07/20/2024) Active Problems Problem Noted Date Diagnosed Date [...] from 2018 Atherosclerotic heart diseas e of [place] coronary artery without angina pectoris 05/31/2020 CKD [...] as of this encounter (statuses as of 07/20/2024) Resolved Problems Problem Noted Date Diagnosed Date [...] chronic kidney disease 08/03/2023 08/03/2023 Atherosclerosis of [place] co ronary artery without angina pectoris 02/01/2023 [...] and AMP Hypertensive heart disease w [facility] heart failure and stage 3 chronic [...] as of this encounter (statuses as of 07/20/2024) Immunizations Name Administration Dates Next Due COVID-19 mRNA, LNP-s, No Pre serve, 2-Dose Series ([employer]ISNR) 08/15/2021,01/31/2021,01/03/2021 COVID-19, LNP-s, No Preserve , Ruslan-sucrose, Ages 12+ ([employer]IS[employer]) 03/19/2022 COVID-19, MRNA-LNP, 23-24, P F, 30 MCG/0.3 mL, 12 YRS AND ABOVE, IM ([facility] 10/25/2023 Covid-19, Mrna, Lnp-s, Pf, B ivalent, 30 Mcg, IM, 12 yrs and above ([employer]) 2022 Pneumococcal Conjugate Vacc, 13 Valent (Prevnar) 01/21/2016 Pneumococcal Conjugate Vacci ne, 20-valent ([id number]) 07/19/2023 Pneumococcal Polysaccharide PPV23 (Pneumovax) 01/13/2011 RSV [...] as of this encounter Miscellaneous Notes * Result Encounter Note - Supriya Fernandes MD - 07/19/2024 11:00 AM EDT Attempted to call pt 07/19, no answer. Supriya Fernandes MD documented in this encounter Plan of Treatment Upcoming Encounters Date Type Department Care Team (Late st Contact Info) Description 07/24/2024 2:30 PM EDT Office Visit Dermatology, Melissa Desir [place] [address] [place] [address] Malaika Guzman PA-C [address] [place] [address] 07/26/2024 10:30 AM EDT Appointment Radiology, [facility] [address] 08/07/2024 8:15 AM EDT [facility] 200 [place] [address] Supriya Fernandes MD 200 [place] [address] 08/14/2024 11:00 AM EDT Office Visit Nephrology, [facility] 400 [place] [address] Keisha Gunn MD 400 [place] [address] 08/21/2024 2:00 PM EDT [facility] Visit [place] [facility] [phone] Fuentes Ashton MD 21 [place] [address] 01/22/2025 1:30 PM EDT PulmDiagnostic Pulmonary Function Lab [facility] [address] [place] [address] [address], [address] [place] [address] 01/22/2025 2:00 PM EDT Office Visit Pulmonary Medicine [facility] [address] [place] [phone] Dominguez Aguilar MD [address] [place] [address] 02/05/2025 10:00 AM EDT Office Visit Rheumatology, [address] [place], [place] [phone] Rafael Hernandez PA-C [facility] [place] [address] Scheduled Procedures Name Priority Associated Diagnoses Date/Ti [...] this encounter Medical Devices Implanted Type Area Ironworker Wire Fence Erector Device Identifier Shelf Expiration Date Model / Serial / Lot Mesh Perfix Plug Lg [id number] - [id number] Implanted:Qty: 1 on 02/07/2019 by Jonathan Correia DO at OR [facility] Right: Groin CR BARD : DAVOL 09/04/2023 [id number] / / [id number] documented as of this encounter Procedures Procedure Name Priority Date/Time Associated Diagnosis Comments MR SOFT TISSUE NECK WITHOUT CONTRAST Routine 07/19/2024 12:15 PM EDT Squamous cell carcinoma of neck documented in this encounter Results * MR SOFT TISSUE NECK WITHOUT CONTRAST (07/19/2024 12:15 PM EDT) Anatomical Region Laterality Modality Neck Magnetic Resonan ce 07/19/2024 1:45 PM EDT Impressions 07/19/2024 1:43 PM EDT IMPRESSION: 1. Limited exam due to lack [...] pathologically enlarged lymph nodes in the neck. Narrative 07/19/2024 1:43 PM EDT EXAM: MR SOFT TISSUE NECK WITHOUT CONTRAST - 07/19/2024 HISTORY: large SCC left neck, surrounding lesions suspicious for possible in transit mets, eval for metastasis TECHNIQUE: Multiplanar, multisequence magnetic resonance imaging of the soft tissue neck were performed without intravenous contrast. Limited exam due to patient's condition and unable to complete examination. COMPARISON: CT cervical spine dated 09/09/2023. FINDINGS: Limited exam due to lack of intravenous contrast and patient's condition. Within the limitation of exam, again demonstrated is a large cutaneous/subcutaneous lesion centered in the left lateral neck soft tissues, measuring up to 4.9 x 1.7 x 2.7 cm (AP x TR x CC), and abutting, with concern for possible invasion of, the adjacent sternocleidomastoid muscle. There are no overtly suspicious, cystic, or pathologically enlarged lymph nodes in the neck. Multilevel degenerative changes of the cervical spine are noted. The thyroid gland is mildly heterogeneous with tiny nodules. Procedure Note Veronica Lisa, DO - 07/19/2024 EXAM: MR SOFT TISSUE NECK WITHOUT CONTRAST - 07/19/2024 HISTORY: large SCC left neck, surrounding lesions suspicious for possible intransit mets, eval for metastasis TECHNIQUE: Multiplanar, multisequence magnetic resonance imaging of the soft tissueneck were performed without intravenous contrast. Limited exam due topatient's condition and unable to complete examination. COMPARISON: CT cervical spine dated 09/09/2023. FINDINGS: Limited exam due to lack of intravenous contrast and patient's condition.Within the limitation of exam, again demonstrated is a largecutaneous/subcutaneous lesion centered in the left lateral neck softtissues, measuring up to 4.9 x 1.7 x 2.7 cm (AP x TR x CC), and abutting,with concern for possible invasion of, the adjacent sternocleidomastoidmuscle. There are no overtly suspicious, cystic, or pathologically enlarged lymphnodes in the neck. Multilevel degenerative changes of the cervical spine are noted. The thyroid gland is mildly heterogeneous with tiny nodules. IMPRESSION IMPRESSION: 1. Limited exam due to lack of intravenous contrast and patient'scondition. Within the limitation of exam, again demonstrated is a largecutaneous/subcutaneous lesion centered in the left lateral neck softtissues, measuring up to 4.9 x 1.7 x 2.7 cm (AP x TR x CC), and abutting,with concern for possible invasion of, the adjacent sternocleidomastoidmuscle. 2. No overtly suspicious, cystic, or pathologically enlarged lymph nodesin the neck. 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
--- OUTSIDE RECORDS SUMMARY | 2024-09-30 18:22 | External Medical Summary | Summary of Care ---
Author Name Unknown Organization [facility] Address [address] [place] [address] Phone [phone] Care Team Providers Care Director Of Hospitality Name Role Phone Fuentes Ashton MD Primary Care Provider [phone] Reason for Visit * Reason Onset Date Comments Test Results 07/14/2024 Encounter Details Date Type Department Care Team (Late st Contact Info) Description 07/14/2024 Telephone Nephrology, [address] [address] Roslyn Moulton MD [address] [place] [address] Test Results Allergies Active Allergy Reactions Criticality Noted Date Comments Aztreonam Hives Medium 10/11/2019 Cephalosporins Rash 05/24/2017 Chlorhexidine Hives,Rash 01/02/2022 Ciprofloxacin Diarrhea Medium 01/28/2015 Iodinated Contrast Media Abdominal pain High 019 Acute kidney failure Levofloxacin Rash Low 07/28/2019 documented as of this encounter (statuses as of 07/14/2024) Medications Medication Sig Dispensed Refills Start Date [...] Delayed Release (PriLOSEC)Indicatio ns:Gastroesophageal reflux disease without esophagitis,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 30 Capsule 5 05/23/2024 Active Allopurinol 100 MG Oral Tablet (Zyloprim) Take 2 Tablets by mouth in the morning. 60 Tablet 6 05/23/2024 Active Albuterol Sulfate 108 (90 Base) [...] or Wheezing. 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) use 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 Steroid-induced diabetes [...] as of this encounter (statuses as of 07/14/2024) Resolved Problems Problem Noted Date Diagnosed Date [...] Cachexia 08/30/2019 05/31/2020 Hypertensive heart disease w [facility] heart failure and stage 5 [...] PL and AMP Hypertensive heart disease w [facility] heart failure and stage 3 [...] respiratory failure 06/26/2018 02/06/2022 Small vessel vasculitis 06/26/201806/082018 Acute hemodialysis patient 06/26/2018 0 07/29/2018 Septic [...] as of this encounter (statuses as of 07/14/2024) Immunizations Name Administration Dates Next Due COVID-19 mRNA, LNP-s, No Pre serve, 2-Dose Series ([employer]) 08/15/2021,01/31/2021,01/03/2021 COVID-19, LNP-s, No Preserve , Ruslan-sucrose, Ages 12+ (Pfizer) 03/19/2022 COVID-19, MRNA-LNP, 23-24, P F, 30 MCG/0.3 mL, 12 YRS AND ABOVE, IM ([facility]) 10/25/2023 Covid-19, Mrna, Lnp-s, Pf, B ivalent, 30 Mcg, IM, 12 yrs and above ([employer]) 2022 Pneumococcal Conjugate Vacc, 13 Valent (Prevnar) 01/21/2016 Pneumococcal Conjugate Vacci ne, 20-valent ([id number]) 07/19/2023 Pneumococcal Polysaccharide PPV23 (Pneumovax) 01/13/2011 RSV [...] Miscellaneous Notes * Telephone Encounter - Deena Jose RN - 07/14/2024 10:24 AM EDT ----- Message from Roslyn Moulton MD sent at 07/13/2024 4:31 PM EDT ----- Calcium better No changes. documented in this encounter Plan of Treatment Upcoming Encounters Date Type Department Care Team (Late st Contact Info) Description 07/17/2024 8:00 AM EDT Office Visit Rheumatology, [address] [place] [address] Perry Tate MD [address] [facility], [place] [address] 07/19/2024 11:00 AM EDT Hospital Encounter Radiology, [address] [place] [address] 07/24/2024 2:30 PM EDT Office Visit Dermatology, Melissakim Desir [place] [address] [place] [address] Malaika Guzman PA-C [address] [facility] [place] [address] 07/26/2024 10:30 AM EDT Appointment Radiology, [facility] 400 [place] [address] 08/07/2024 8:15 AM EDT Office Visit [facility] Surgery [facility] 200 [facility] [place] [address] Supryia Fernandes MD 200 [place] [address] 08/14/2024 11:00 AM EDT Office Visit Nephrology, [facility] [address] [place] [address] Keisha Gunn MD 400 [place] [address] 08/21/2024 2:00 PM EDT Office Visit [facility] 21 [place] [phone] Fuentes Ashton MD 21 [place] [address] 01/22/2025 1:30 PM EDT PulmDiagnostic Pulmonary Function Lab [facility] [address] [place] [address] [address], [address] [place] [address] 01/22/2025 2:00 PM EDT Office Visit Pulmonary Medicine Ahmet Downing [address] [place] [phone] Dominguez Aguilar MD [address] [place] [address] Scheduled Procedures Name Priority Associated Diagnoses Date/Ti me COLONOSCOPY FLEXIBLE PROXIMA L DIAGNOSTIC Recall Diverticulosis of sigmoid colon Health Maintenance Due Date Last Done Comments Adult Wellness Visit 03/14/2020 03/14/2019 COVID-19 Vaccine ( season) 2024 2023, 10/25/2023, 2022, Additional history exists Influenza Vaccine (FLU shot) [...] this encounter Medical Devices Implanted Type Area Forest Fire Officer Device Identifier Shelf Expiration Date Model / Serial / Lot Mesh Perfix Plug Lg [id number] - [id number] Implanted:Qty: 1 on 02/07/2019 by Jonathan Correia DO at OR 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
--- OUTSIDE RECORDS SUMMARY | 2024-09-30 18:22 | External Medical Summary | Summary of Care ---
Author Name Unknown Organization [facility] [address] [place] [address] Phone [phone] Care Team Providers Care Contracts Representative Name Role Phone Fuentes Ashton MD Primary Care Provider [phone] Reason for Visit * Reason Onset Date Comments Appointment 07/17/2024 Encounter Details Date Type Department Care Team (Late st Contact Info) Description 07/17/2024 Telephone Radiology, [address] [address] Braulio Nguyen, RT Appointment Allergies Active Allergy Reactions Criticality Noted Date Comments Aztreonam Hives Medium 10/11/2019 Cephalosporins Rash 05/24/2017 Chlorhexidine Hives,Rash 01/02/2022 Ciprofloxacin Diarrhea Medium 01/28/2015 Iodinated Contrast Media Abdominal pain High 019 Acute kidney failure Levofloxacin Rash Low 07/28/2019 documented as of this encounter (statuses as of 07/17/2024) Medications Medication Sig Dispensed Refills Start Date [...] Release (PriLOSEC)Indicatio ns:Gastroesophageal reflux disease without esophagitis,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) use 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 Take by [...] Powder Breath ActivatedIndication s:COPD, moderate ([facility]) Inhale 2 Puffs by mouth every 4 [...] as of this encounter (statuses as of 07/17/2024) Active Problems Problem Noted Date Diagnosed Date [...] from 2018 Atherosclerotic heart diseas e of [place] coronary artery without angina pectoris 05/31/2020 CKD [...] as of this encounter (statuses as of 07/17/2024) Resolved Problems Problem Noted Date Diagnosed Date [...] chronic kidney disease 08/03/2023 08/03/2023 Atherosclerosis of [place] co ronary artery without angina pectoris 02/01/2023 [...] 08/30/2019 05/31/2020 Hypertensive heart disease w [facility] heart failure and stage 5 [...] and AMP Hypertensive heart disease w [facility] heart failure and stage 3 [...] as of this encounter (statuses as of 07/17/2024) Immunizations Name Administration Dates Next Due COVID-19 mRNA, LNP-s, No Pre serve, 2-Dose Series ([email or web address]) 08/15/2021,01/31/2021,01/03/2021 COVID-19, LNP-s, No Preserve , Ruslan-sucrose, Ages 12+ (Pfizer) 03/19/2022 COVID-19, MRNA-LNP, 23-24, P F, 30 MCG/0.3 mL, 12 YRS AND ABOVE, IM ([facility]) 10/25/2023 Covid-19, Mrna, Lnp-s, Pf, B ivalent, 30 Mcg, IM, 12 yrs and above (Pfizer) 2022 Pneumococcal Conjugate Vacc, 13 Valent (Prevnar) 01/21/2016 Pneumococcal Conjugate Vacci ne, 20-valent ([id number]) 07/19/2023 Pneumococcal Polysaccharide PPV23 (Pneumovax) 01/13/2011 RSV [...] Telephone Encounter - Supriya Fernandes MD - 07/17/2024 12:12 PM EDT Noted. If patient declines MRI, that is okay. Supriya Fernandes MD 07/17/2024 12:13 PM * Telephone Encounter - Braulio Nguyen RT - 07/17/2024 10:55 AM EDT Ready for MRI states he will most likely refuse contrast due to the fact it was CT contrast that impaired his kidneys and he has been on/off dialysis over several years. He has not been on dialysis for a few years now. I tried to explain how MRI contrast does not impair kidney function. We just need to ensure his kidneys are functioning enough to filter out the contrast. I have sent a message to Radiologist to see if he can evaluate whether we should give him contrast. Normal circumstances we give contrast to MRI soft tissue neck patient sarah with h/o CA said she would explain him but said he most likely will be refusing. Routing to provider for her knowledge documented in this encounter Plan of Treatment Upcoming Encounters Date Type Department Care Team (Late st Contact Info) Description 07/19/2024 11:00 AM EDT Hospital Encounter Radiology, [address] [place] [address] 07/24/2024 2:30 PM EDT [facility] [address] [place] [address] Malaika Guzman PA-C [facility] [address] 07/26/2024 10:30 AM EDT Appointment Radiology, [address] [place] [address] 08/07/2024 8:15 AM EDT Office Visit [facility] Surgery [facility] [address] [place] [address] Supriya Fernandes MD 200 [place] [address] 08/14/2024 11:00 AM EDT Office Visit Nephrology, [address] [place] [address] Keisha Gunn MD [address] [place] [address] [place] [address] 08/21/2024 2:00 PM EDT [facility] Visit [facility] [place] [phone] Fuentes Ashton MD 21 [place] [address] 01/22/2025 1:30 PM EDT PulmDiagnostic Pulmonary Function Lab [facility] [address] [facility] [place] [address] [address], [address] S[address] Thang [place] [address] 01/22/2025 2:00 PM EDT Office Visit Pulmonary Medicine [facility] [address] [place] [phone] Dominguez Aguilar MD [address] [facility] [place] [address] 02/05/2025 10:00 AM EDT Office Visit Rheumatology, [address] [place] [address] Rafael Hernandez PA-C [address] [place] [address], [place] [address] Scheduled Procedures Name Priority Associated Diagnoses Date/Ti [...] this encounter Medical Devices Implanted Type Area Flavor Tank Tender Device Identifier Shelf Expiration Date Model / Serial / Lot Mesh Perfix Plug Lg [id number] - [id number] Implanted:Qty: 1 on 02/07/2019 by Jonathan Correia DO at OR 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
--- OUTSIDE RECORDS SUMMARY | 2024-09-30 18:22 | External Medical Summary | Summary of Care ---
Author Name Unknown Organization [facility] [address] [place] [address] Phone [phone] Care Team Providers Care Rope Silica Machine Operator Name Role Phone Fuentes Ashton MD Primary Care Provider [phone] Reason for Visit * Reason Onset Date Comments Appointment 07/17/2024 Encounter Details Date Type Department Care Team (Late st Contact Info) Description 07/17/2024 Telephone Radiology, [address] [address] Braulio Nguyen, RT Appointment Allergies [...] Breath ActivatedIndication s:COPD, moderate ([facility]) Inhale 2 Puffs by mouth every [...] from 2018 Atherosclerotic heart diseas e of [place] coronary artery without angina pectoris 05/31/2020 CKD [...] chronic kidney disease 08/03/2023 08/03/2023 Atherosclerosis of [place] co ronary artery without angina pectoris 02/01/2023 [...] 05/31/2020 Hypertensive heart disease w [facility] heart failure and stage 5 chronic [...] AMP Hypertensive heart disease w [facility] heart failure and stage 3 chronic [...] mRNA, LNP-s, No Pre serve, 2-Dose Series ([employer]) 08/15/2021,01/31/2021,01/03/2021 COVID-19, LNP-s, No Preserve , Ruslan-sucrose, Ages 12+ (Pfizer) 03/19/2022 COVID-19, MRNA-LNP, 23-24, P F, 30 MCG/0.3 mL, 12 YRS AND ABOVE, IM ([facility]) 10/25/2023 Covid-19, Mrna, Lnp-s, Pf, B ivalent, 30 Mcg, IM, 12 yrs and above (Pfizer) 2022 Pneumococcal Conjugate Vacc, 13 Valent (Prevnar) 01/21/2016 Pneumococcal Conjugate Vacci ne, 20-valent ([id number]) 07/19/2023 Pneumococcal Polysaccharide PPV23 (Pneumovax) 01/13/2011 RSV [...] encounter Miscellaneous Notes * Telephone Encounter - Braulio Nguyen RT [...] 07/19/2024 11:00 AM EDT Hospital Encounter Radiology, [facility] [address] 07/24/2024 2:30 PM EDT Office Visit Dermatology, [place] [address] [place] [address] Malaika Guzman PA-C 27 [facility] [place] [address] 07/26/2024 10:30 AM EDT Appointment Radiology, [facility] [address] 08/07/2024 8:15 AM EDT Office Visit [facility] Surgery [facility] [address] [place] [address] Supriya Fernandes MD 200 [place] [address] 08/14/2024 11:00 AM EDT Office Visit Nephrology, [facility] 400 [place] [address] Keisha Gunn MD 400 [place] [address] 08/21/2024 2:00 PM EDT Office Visit [facility] 21 [facility] [place] [phone] Fuentes Ashton MD 21 [facility] [place] [address] 01/22/2025 1:30 PM EDT [facility] [address] [place] [address] [address], [address] [place] [address] 01/22/2025 2:00 PM EDT Office Visit Pulmonary Medicine [facility] [address] [place] [phone] Dominguez Aguilar MD [address] [place] [address] 02/05/2025 10:00 AM EDT Office Visit [address]ology, [address] [address] Rafael Hernandez PA-C [address] [facility], [place] [address] Scheduled Procedures Name Priority Associated Diagnoses Date/Ti [...] this encounter Medical Devices Implanted Type Area Automotive Glass Mechanic Device Identifier Shelf Expiration Date Model / Serial / Lot Mesh Perfix Plug Lg [id number] - [id number] Implanted:Qty: 1 on 02/07/2019 by Jonathan Correia DO at OR [facility] Right: Lelo KEBEDE BARD : DAVJOSE 09/04/2023 [id number] / / [id number] documented as of this encounter Advance Directives Documents on File Type Date Recorded 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
--- OUTSIDE RECORDS SUMMARY | 2024-09-30 18:22 | External Medical Summary | Summary of Care ---
Author Name Unknown Organization [facility] [address] [place] [address] Phone [phone] Care Team Providers Care Railway Track Worker Name Role Phone Fuentes Ashton MD Primary Care Provider [phone] Reason for Visit * Reason Onset Date Comments Appointment 07/17/2024 Encounter Details Date Type Department Care Team (Late st Contact Info) Description 07/17/2024 Telephone Radiology, [address] [address] Braulio Nguyen, RT Appointment Allergies [...] from 2018 Atherosclerotic heart diseas e of [place] coronary artery without angina pectoris 05/31/2020 CKD [...] chronic kidney disease 08/03/2023 08/03/2023 Atherosclerosis of [place] co ronary artery without angina pectoris 02/01/2023 [...] Cachexia 08/30/2019 05/31/2020 Hypertensive heart disease w [facility] heart failure and stage 5 chronic [...] and AMP Hypertensive heart disease w [facility] heart failure and stage 3 chronic [...] mRNA, LNP-s, No Pre serve, 2-Dose Series ([employer]) 08/15/2021,01/31/2021,01/03/2021 COVID-19, LNP-s, No Preserve , Ruslan-sucrose, Ages 12+ (Pfizer) 03/19/2022 COVID-19, MRNA-LNP, 23-24, P F, 30 MCG/0.3 mL, 12 YRS AND ABOVE, IM ([facility]) 10/25/2023 Covid-19, Mrna, Lnp-s, Pf, B ivalent, 30 Mcg, IM, 12 yrs and above (Pfizer) 2022 Pneumococcal Conjugate Vacc, 13 Valent (Prevnar) 01/21/2016 Pneumococcal Conjugate Vacci ne, 20-valent ([id number]) 07/19/2023 Pneumococcal Polysaccharide PPV23 (Pneumovax) 01/13/2011 RSV [...] Encounter - Braulio Nguyen RT - 07/17/2024 10:48 AM EDT Ready for mri documented in this encounter Plan of Treatment Upcoming Encounters Date Type Department Care Team (Late st Contact Info) Description 07/19/2024 11:00 AM EDT Hospital Encounter Radiology, [address] [place] [address] 07/24/2024 2:30 PM EDT Office Visit Dermatology, Ahmet Rowell 27 [address] [facility] 140 [place] [address] Malaika Guzman PA-C 27 [place] [address] 07/26/2024 10:30 AM EDT Appointment Radiology, [address] [address] 08/07/2024 8:15 AM EDT Office Visit [facility] Surgery [facility] [place] [address] [facility] [address] [address] [place], [place] [address] Supriya Fernandes MD 200 [facility], [place] [address] 08/14/2024 11:00 AM EDT Office Visit Nephrology, [address] [address] Keisha Gunn MD [address] [place] [address] 08/21/2024 2:00 PM EDT Office Visit [facility] 21 [place] [phone] Fuentes Ashton MD 21 [place] [address] 01/22/2025 1:30 PM EDT PulmDiagnostic Pulmonary Function Lab [facility] [address] [facility] [place] [address] [address], [address] Sonali Thang [place], [place] [address] 01/22/2025 2:00 PM EDT Office Visit Pulmonary Medicine [facility] [address] [facility] [place] [phone] Dominguez Aguilar MD [address] [facility] [place] [address] 02/05/2025 10:00 AM EDT Office Visit Rheumatology, [address] [place] [address] Rafael Hernandez PA-C [address] [place] [address] [place] [address] Scheduled Procedures Name Priority Associated Diagnoses Date/Ti [...] this encounter Medical Devices Implanted Type Area Cut Off Sawyer Device Identifier Shelf Expiration Date Model / Serial / Lot Mesh Perfix Plug Lg [id number] - [id number] Implanted:Qty: 1 on 02/07/2019 by Jonathan Correia DO at OR [facility] Right: Lelo KEBEDE BARD : MARIE 09/04/2023 [id number] / / [id number] documented as of this encounter Advance Directives Documents on File Type Date Recorded 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
--- OUTSIDE RECORDS SUMMARY | 2024-09-30 18:22 | External Medical Summary | Summary of Care ---
Author Name Unknown Organization [facility] Address [address] [place] [address] Phone [phone] Care Team Providers Care Shellfish Processing Machine Tender Name Role Phone Fuentes Ashton MD Primary Care Provider [phone] Reason for Visit * Reason Comments Rheum Follow Up Follow up - erthema nodosum Encounter Details Date Type Department Care Team (Late st Contact Info) Description 07/17/2024 8:00 AM EDT Office Visit Rheumatology, [address] [id number] Perry Tate MD [facility] [place] [address] Erythema nodosum*; Senile osteoporosis; CHCF (current) use 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; 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 180 Tablet 4 4 Active Allopurinol 100 MG Oral Tablet (Zyloprim) Take 2 Tablets by mouth in the morning. 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 IPMN (intraductal papillary mucinous neoplasm) 0 03/09/2018 Overview: MRI 02/23 CHCF (current) use of systemic [...] disease 08/03/2023 08/03/2023 Atherosclerosis of [place] co ronary artery without angina pectoris 02/01/2023 [...] Overview: 09/01/16: 3.78cm - repeat 1 yr 3/21/16: US: 3.87cm AAA - repeat 6 months [...] mRNA, LNP-s, No Pre serve, 2-Dose Series ([employer]) 08/15/2021,01/31/2021,01/03/2021 COVID-19, LNP-s, No Preserve , Ruslan-sucrose, Ages 12+ (Pfizer) 03/19/2022 COVID-19, MRNA-LNP, 23-24, P F, 30 MCG/0.3 mL, 12 YRS AND ABOVE, IM ([employer]) 10/25/2023 Covid-19, Mrna, Lnp-s, Pf, B ivalent, 30 Mcg, IM, 12 yrs and above ([employer]) 2022 Pneumococcal Conjugate Vacc, 13 Valent (Prevnar) 01/21/2016 Pneumococcal Conjugate Vacci ne, 20-valent ([id number]) 07/19/2023 Pneumococcal Polysaccharide PPV23 (Pneumovax) 01/13/2011 RSV [...] 08 965 - 1966 Smokeless Tobacco: Never Tobacco [...] Pressure - - Pulse - - Temperature 36.2 C (97.1 F) 07/17/2024 8:02 AM ED T Respiratory Rate - - Oxygen Saturation - - Inhaled Oxygen Concentration - - Weight 68.5 kg (151 lb) 07/17/2024 8:02 AM EDT Height - - Body Mass Index 23.65 06/13/2024 11:44 AM EDT documented in this encounter Functional [...] as of this encounter Progress Notes * Perry Tate MD - 07/17/2024 8:04 AM EDT Subjective: Patient seen today for further follow up evaluation of EN, osteoporosis, gout. Since the last visithe has tolerated allopurinol and is on 200mg. No missed doses. No more gout attacks. He remains on pred 7.5mg and wondering if he can try cutting the dose. He did receive prolia in April but after in February he was admitted for hypocalcemia. No falls or fractures. He has cancer on his neck and needs it to be removed. Needs MRI of the neck before his surgery. The biopsy showed squamous cell cancer. They are wondering about having his allopurinol sent to the order pharmacy. Has chronic back pain. Musculoskeletal ROS: . Abnormal: back pain . Pain scale (0-10): 4 Other ROS: . Constitutional: normal . Head normal . Eyes: normal . Ears, nose, throat, mouth: normal . Cardiovascular: normal . Respiratory: normal . Gastrointestinal: normal . Genitourinary: normal . Skin: Skin cancer Social History: Social History Tobacco Use Smoking status: Former [...] No Refillable Tank No Pre-filled Pod No Current Outpatient Medications Medication Sig Dispense Refill [...] mouth in the morning. 60 Tablet 6 Albuterol Sulfate 108 (90 Base) MCG/ACT Inhalation Aerosol Powder Breath Activated Inhale 2 Puffs by mouth every 4 hours as needed for Shortness of Breath. 1 Each 11 Albuterol Sulfate (2.5 MG/3ML) 0.083% Inhalation Nebulization Solution (Proventil) Inhale 1 Vial via nebulizer every 4 hours as needed for Shortness of Breath or Wheezing. 360 mL 11 PredniSONE (DELTASONE) 20 MG Tablet Take 2 Tabs by mouth daily for 5 days. 10 Tab 0 PredniSONE (DELTASONE) 20 MG Tablet Take 2 Tabs by mouth daily for 7 days. 14 Tab 0 predniSONE 20 MG Oral Tablet (Deltasone) Take by mouth 2 Tablets in the morning for 5 days. 10 Tablet 0 No current facility-administered medications for this visit. Physical Exam: Temp 36.2 C (97.1 F) (Infrared ) | Wt 68.5 kg (151 lb) | BMI 23.65 kg/m | BSA 1.8 m General: alert and no distress HENT: normocephalic, external ears normal, no mucosal erythema, no mucosal edema, moist mucosa, no oral ulcers Eye Exam: PERRL, EOMI, conjunctiva are pink and non-injected, sclera clear Neck: supple, no adenopathy, thyroid normal size, non-tender, without nodularity. 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 After a month or 2 will try to go down to 5 mg daily if possible. Remains on allopurinol 200 mg daily. Gets treated with Prolia through [facility]. Plan: 1. Remains on Prolia through Orthopedics 2. Remains on allopurinol 200 mg daily-sent new script to mail order pharmacy 3. Will try to taper prednisone as outlined above 4. Return to clinic in 6 months Perry Tate MD Department of Rheumatology documented in this encounter Nursing Notes * Leda Merchant LPN - 07/17/2024 8:01 AM EDT Chief Complaint Patient presents with Rheum Follow Up Follow up - erthema nodosum documented in this encounter Plan of Treatment Upcoming Encounters Date Type Department Care Team (Late st Contact Info) Description 07/19/2024 11:00 AM EDT Hospital Encounter Radiology, [address] [place] [address] 07/24/2024 2:30 PM EDT Office Visit Dermatology, [address] [place] [address] [facility] [address] [place] [address] Malaika Guzman PA-C [address] [place] [address] 07/26/2024 10:30 AM EDT Appointment Radiology, [address] [place] [address] 08/07/2024 8:15 AM EDT Office Visit [facility] [address] [place] [address] Supriya Fernandes MD [address] [place] [address] 08/14/2024 11:00 AM EDT Office Visit Nephrology, [address] [address] Keisha Gunn MD [address] [place] [address] [place] [address] 08/21/2024 2:00 PM EDT [facility] [phone] Fuentes Ashton MD 21 [facility] [place] [address] 01/22/2025 1:30 PM EDT PulmDiagnostic Pulmonary Function Lab [facility] [address] [facility] [place] [address] [address], [address] [place] [address] 01/22/2025 2:00 PM EDT Office Visit Pulmonary Medicine [facility] [address] [facility] [place] [phone] Dominguez Aguilar MD [address] [facility] [place] [address] 02/05/2025 10:00 AM EDT Office Visit Rheumatology, [facility] [address] [place] [address] Rafael Hernandez, [place] [address] [place] [address], [place] [address] Scheduled Procedures Name Priority Associated Diagnoses Date/Ti me COLONOSCOPY FLEXIBLE PROXIMA L DIAGNOSTIC Recall Diverticulosis of sigmoid colon Health Maintenance Due Date Last Done Comments Adult Wellness Visit 03/14/2020 03/14/2019 COVID-19 Vaccine (2022- season) 2024 2023, 10/25/2023, 10/25/2023, Additional history exists Influenza Vaccine (FLU shot) (#1) 2024 08/30/2023, 09/23/2022, 09/01/2021, Additional history exists Diabetic Eye Exam 07/19/2024 07/19/2023, , 04/09/2022, Additional history exists Diabetic Foot Exam 07/19/2024 07/19/2023, 0 06/01/2022, 03/14/2019, Additional history exists HbA1c 08/02/2024 01/31/2024, 1112/2022, 05/18/2023, Additional history exists GFR 01/09/2025 07/12/2024, 12/2023, 05/25/2024, Additional history exists TSH 01/30/2025 [...] this encounter Medical Devices Implanted Type Area Belt Notcher Device Identifier Shelf Expiration Date Model / Serial / Lot Mesh Perfix Plug Lg [id number] - [id number] Implanted:Qty: 1 on 02/07/2019 by Jonathan Correia DO at OR [facility] Right: Lelo KEBEDE BARD : MARIE 09/04/2023 [id number] / / [id number] documented as of this encounter Visit Diagnoses Diagnosis Erythema nodosum- Primary Senile osteoporosis emt intermediate (current) use 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
--- OUTSIDE RECORDS SUMMARY | 2024-09-30 18:23 | External Medical Summary | Summary of Care ---
Author Name Unknown Organization [facility] Address [address] [facility] [place] [address] Phone [phone] Care Team Providers Care Homeowner Association Manager Name Role Phone Fuentes Ashton MD Primary Care Provider [phone] Reason for Visit * Reason Onset Date Comments Medication Refill 07/06/2024 Albuterol Sul 2.5 mg/3 ml solution Encounter Details Date Type Department Care Team (Late st Contact Info) Description 07/06/2024 Refill Pulmonary Medicine Ahmet Downing [address] [place] [phone] Willie Mares PA-C [address] [facility] [place] [address] COPD, group C, by GOLD 2017 classification ([facility]) Allergies Active Allergy Reactions Criticality Noted Date Comments Aztreonam Hives Medium 10/11/2019 Cephalosporins Rash 05/24/2017 Chlorhexidine Hives,Rash 01/02/2022 Ciprofloxacin Diarrhea Medium 01/28/2015 Iodinated Contrast Media Abdominal pain High 019 Acute kidney failure Levofloxacin Rash Low 07/28/2019 documented as of this encounter (statuses as of 07/06/2024) Medications Medication Sig Dispensed Refills Start Date [...] Release (PriLOSEC)Indicati ons:Gastroesophage al reflux disease without esophagitis,detention (current) use of [...] the morning. 30 Capsule 5 4 Active Allopurinol 100 MG Oral Tablet (Zyloprim) Take 2 Tablets by mouth in the morning. 60 Tablet 6 4 Active Albuterol Sulfate (2.5 MG/3ML) 0.083% Inhalation Nebulization Solution (Proventil)Indicat ions:COPD, group C, by GOLD 2017 classification ([facility]) Inhale 1 Vial via nebulizer every 4 hours as needed for Shortness of Breath or Wheezing. 360 mL 11 4 Active Albuterol Sulfate (2.5 MG/3ML) 0.083% Inhalation Nebulization Solution (Proventil)Indicat ions:COPD, group C, by GOLD 2017 classification ([facility]) inhale contents of 1 vial ( 3 milliliters ) in nebulizer by mouth and INTO THE LUNGS every 4 hours if needed for wheezing shortness of breath or cough 360 mL 5 3 07/06/20 24 Discontinu ed(Refill) Albuterol Sulfate 108 (90 Base) MCG/ACT Inhalation Aerosol Powder Breath ActivatedIndicatio ns:COPD, moderate ([facility]) Inhale 2 Puffs by mouth every 4 hours as needed for Shortness of Breath. 1 Each 5 4 07/06/20 Discontinu ed(Refill) documented as of this encounter (statuses as of 07/06/2024) Active Problems Problem Noted Date Diagnosed Date [...] from 2018 Atherosclerotic heart diseas e of [place] coronary artery without angina pectoris 05/31/2020 CKD [...] as of this encounter (statuses as of 07/06/2024) Resolved Problems Problem Noted Date Diagnosed Date [...] chronic kidney disease 08/03/2023 08/03/2023 Atherosclerosis of [place] co ronary artery without angina pectoris 02/01/2023 [...] (A AA) without rupture 07/11/2015 07/19/2023 Overview: 10/25/16: 3.78cm - repeat 1 yr 01/27/16: US: 3.87cm AAA - repeat 6 months 07/11/15: sts he had an US in the past - will check records Rash and nonspecific skin eruption 07/11/2015 01/21/2016 Essential hypertension 03/12/201410/18 Overview: ICD-10 update of inactive term Pure hypercholesterolemia 03/12/2014 ATN (acute tubular necrosis) 2019 documented as of this encounter (statuses as of 07/06/2024) Immunizations Name Administration Dates Next Due COVID-19 mRNA, LNP-s, No Pre serve, 2-Dose Series ([employer]) 08/15/2021,01/31/2021,01/03/2021 COVID-19, LNP-s, No Preserve , Ruslan-sucrose, Ages 12+ (Pfizer) 03/19/2022 COVID-19, MRNA-LNP, 23-24, P F, 30 MCG/0.3 mL, 12 YRS AND ABOVE, IM ([employer]) 10/25/2023 Covid-19, Mrna, Lnp-s, Pf, B ivalent, 30 Mcg, IM, 12 yrs and above ([employer]) 2022 Pneumococcal Conjugate Vacc, 13 Valent (Prevnar) 01/21/2016 Pneumococcal Conjugate Vacci ne, 20-valent ([id number]) 07/19/2023 Pneumococcal Polysaccharide PPV23 (Pneumovax) 01/13/2011 RSV [...] encounter Miscellaneous Notes * Telephone Encounter - Willie Mares PA-C - 07/06/2024 4:20 PM EDTSigned Prescriptions: Disp Refills Albuterol Sulfate (2.5 MG/3ML) 0.083% Inha*360 mL 11 Sig: Inhale 1 Vial via nebulizer every 4 hours as needed for Shortness of Breath or Wheezing. Authorizing Provider: WILLIE MARES * Telephone Encounter - Emma Adorno LPN - 07/06/2024 2:14 PM EDTPending Prescriptions: Disp Refills Albuterol Sulfate (2.5 MG/3ML) 0.083% Inha*360 mL 11 Sig: Inhale 1 Vial via nebulizer every 4 hours as needed for Shortness of Breath or Wheezing. * Telephone Encounter - Emma Adorno LPN - 07/06/2024 2:14 PM EDT Did you pend patient's preferred pharmacy and medication before forwarding? Yes Pharmacy: [id number] [address] Pending Prescriptions: Disp Refills Albuterol Sulfate (2.5 MG/3ML) 0.083% Inh*360 mL 11 Sig: Inhale 1 Vial via nebulizer every 4 hours as needed for Shortness of Breath or Wheezing. Last Visit: 01/04/2024 (in office), 02/15/2020 (telemedicine) Next Visit: 01/22/2025 If no future appointments scheduled, and last appointment is greater than a year ago, please schedule patient for a follow-up appointment Last date the medication was ordered: 05/31/23 Is this request for a controlled substance?No Urine Drug Screen: Results for orders placed or performed during the hospital encounter of 09/08/23 TOXICOLOGY, URINE SCREEN W/ CONFIRMATION Result Value Amphetamines Screen, U Negative Benzodiazepines Screen, U Negative Cannabinoids Screen, U Negative Cocaine Metabolite Screen, U Negative Fentanyl Screen, U Negative Hydrocodone Screen, U Negative Methadone Metabolite Screen, U Negative Morphine/Codeine Screen, U Negative Oxycodone Screen, U Negative Narrative Cutoff Concentrations: Drug Level Amphetamines 500 ng/mL Benzodiazepines 100 ng/mL Cannabinoids 50 ng/mL Cocaine Metabolite 150 ng/mL Fentanyl 1 ng/mL Hydrocodone / Hydromorphone 300 ng/mL Methadone Metabolite 100 ng/mL Morphine / Codeine 300 ng/mL Oxycodone / Oxymorphone 100 ng/mL Screening results are presumptive and can only be used for medical purposes. Positive screening results are reflexed to confirmatory testing. *Note: Due to a large number of results and/or encounters for the requested time period, some results have not been displayed. A complete set of results can be found in Results Review. Patient Phone Numbers Labs: Lab Results Component Value Date/Time CREAT 3.1 (H) 06/09/2024 01:11 PM CREAT 2.6 (A) 09/02/2022 12:00 AM CREAT 2.6 (H) 11/11/2020 12:37 PM POTASSIUM 4.8 06/09/2024 01:11 PM POTASSIUM 4.3 09/02/2022 12:00 AM POTASSIUM 4.7 11/11/2020 12:37 PM TSH 1.57 01/31/2024 09:42 AM TSH 1.54 01/31/2024 09:42 AM TSH 1.12 09/02/2022 12:00 AM TSH 1.71 10/21/2020 09:28 AM LDL 69 01/31/2024 09:42 AM LDL 78 10/21/2020 09:28 AM LDL NOT APPLICABLE 10/21/2020 09:28 AM LDLCALC 79 09/02/2022 12:00 AM ALT 16 06/09/2024 01:11 PM ALT 36 10/01/2020 01:25 PM HGBA1C 6.0 (H) 01/31/2024 09:42 AM HGBA1C 5.8 06/16/2021 12:00 AM HGBA1C 5.9 (H) 10/21/2020 09:28 AM * Telephone Encounter - Bre Rebolledo OSA - 07/06/2024 1:41 PM EDT Per [employer] [facility] requesting refill Albuterol Sul 2.5 mg/3 ml solution documented in this encounter Plan of Treatment Upcoming Encounters Date Type Department Care Team (Late st Contact Info) Description 07/17/2024 8:00 AM EDT Office Visit Rheumatology, [address] [address] Perry Tate [facility] [address] [facility] [address] 07/19/2024 11:00 AM EDT Appointment Radiology, [address] [address] 07/24/2024 2:30 PM EDT [facility] [address] [place] [address] Malaika Guzman PA-C [address] [facility] [place] [address] 07/26/2024 10:30 AM EDT Appointment Radiology, [address] [address] 08/07/2024 8:15 AM EDT Office Visit [facility] [address] [facility], [place] [address] Supriya Fernandes [facility] [address] 08/14/2024 11:00 AM EDT Office Visit Nephrology, [address] [place] [address] Keisha Gunn MD [address] [facility] [place] [address] 08/21/2024 2:00 PM EDT Office Visit [facility] [address] [facility] [place] [phone] Fuentes Ashton MD [address] [facility] [place] [address] 01/22/2025 1:30 PM EDT PulmDiagnostic Pulmonary Function Lab [facility] [place] [address] [place] [address] [address], [address] [place] [address] 01/22/2025 2:00 PM EDT Office Visit Pulmonary Medicine [facility] [place] [address] [place] [phone] Dominguez Aguilar MD [address] [facility] [place] [address] Scheduled Procedures Name Priority Associated Diagnoses Date/Ti me COLONOSCOPY FLEXIBLE PROXIMA L DIAGNOSTIC Recall Diverticulosis of sigmoid colon Health Maintenance Due Date Last Done Comments Adult Wellness Visit 03/14/2020 03/14/2019 COVID-19 Vaccine ( season) 2023 2023, 10/25/2023, 2022, Additional history exists Influenza Vaccine (FLU shot) (#1) 2024 08/30/2023, 09/23/2022, 09/01/2021, Additional history exists Diabetic Eye Exam 07/19/2024 07/19/2023, , 04/09/2022, Additional history exists Diabetic Foot Exam 07/19/2024 07/19/2023, 0 06/01/2022, 03/14/2019, Additional history exists HbA1c 08/02/2024 01/31/2024, 12/2022, 05/18/2023, Additional history exists GFR 12/10/2024 06/09/2024, 05/08, 05/08/2024, Additional history exists TSH 01/30/2025 01/31/2024, 01/07, [...] this encounter Medical Devices Implanted Type Area Tread Cutter Device Identifier Shelf Expiration Date Model / Serial / Lot Mesh Perfix Plug Lg [id number] - [id number] Implanted:Qty: 1 on 02/07/2019 by Jonathan Correia DO at OR [facility] Right: Groin CR BARD : DAVOL 09/04/2023 [id number] / / [id number] documented as of this encounter Visit Diagnoses Diagnosis COPD, group C, by GOLD 2017 classification (HCC) documented in this encounter Advance Directives Documents on File Type Date Recorded Patient Vp Of Digital Marketing Expl anation Advance Directives and Living Will [...] verbally by patient or by statute hierarchy) Enon Cross Adult Child Emergency Contact Care Teams Homeowner Association Manager Relationship Specialty Start Date End Date Fuentes Ashton MD [address] [place] [address] PCP - General Family Medicine 01/30/22 documented as of this encounter
--- OUTSIDE RECORDS SUMMARY | 2024-09-30 18:23 | External Medical Summary ---
Author Name Unknown Address Unknown Organization K01[facility] [place] [address] [facility] [place] [address] Laboratory Report Ordering Provider Test Date Status JOSELO VIDES 07/12/2024 10:01:57 Final Observation Date Value Abnormality Reference (Units ) Status SYNC LEUKOCYTES IN BLOOD BY AUTOMATED COUNT 07/12/2024 10:01:57 6.86 4.00-10.80 (K/uL) Final Segs 07/12/2024 10:01:57 67.0 40.0-75.0 (%) Final Lymphs % 07/12/2024 10:01:57 21.9 18.0-42.0 (%) Final Monos 07/12/2024 10:01:57 5.1 1.0-11.0 (%) Final Eosinophils 07/12/2024 10:01:57 4.4 0.0-6.0 (%) Final Basos 07/12/2024 10:01:57 0.3 0.0-2.0 (%) Final Immature Granulocyte, Percent 07/12/2024 10:01:57 1.3 0.0-2.0 (%) Final Absolute Segs 07/12/2024 10:01:57 4.60 1.80-7.70 (K/uL) Final Lymphs, absolute 07/12/2024 10:01:57 1.50 1.00-4.80 (K/ul) Final Monos, Abs 07/12/2024 10:01:57 0.35 0.00-1.10 (K/uL) Final Eos, Abs 07/12/2024 10:01:57 0.30 0.00-0.70 (K/uL) Final Basos, Abs 07/12/2024 10:01:57 0.02 0.00-0.20 (K/uL) Final Immature Granulocytes, Number 07/12/2024 10:01:57 0.09 0.00-0.20 (K/uL) Final Performing Location [facility] [place] [address] [facility] [address]
--- OUTSIDE RECORDS SUMMARY | 2024-09-30 18:23 | External Medical Summary | Summary of Care ---
Author Name Unknown Organization [facility] Address [address] [facility] [address] Phone [phone] Care Team Providers Care Data Designer Name Role Phone Fuentes Ashton MD Primary Care Provider [phone] [phone] Reason for Visit * Reason Onset Date Comments Med Request 07/06/2024 Encounter Details Date Type Department Care Team (Late st Contact Info) Description 07/06/2024 Telephone Pulmonary Medicine Ahmet Downing [address] [phone] Dominguez Aguilar MD [address] [address] Med Request Allergies Active Allergy Reactions Criticality Noted [...] Release (PriLOSEC)Indicatio ns:Gastroesophageal reflux disease without esophagitis,intermediate accountant (current) use [...] 6 weeks 170 g 3 09/14/2022 Active Albuterol Sulfate (2.5 MG/3ML) 0.083% Inhalation Nebulization Solution (Proventil)Indicati ons:COPD, group C, by GOLD 2017 classification ([facility]) inhale contents of 1 vial ( 3 milliliters ) in nebulizer by mouth and INTO THE LUNGS every 4 hours if needed for wheezing shortness of breath or cough 360 mL 5 05/31/2023 Active Atorvastatin Calcium 20 MG Oral Tablet [...] the morning. 180 Each 3 01/28/2024 Active Albuterol Sulfate 108 (90 Base) MCG/ACT Inhalation Aerosol Powder Breath ActivatedIndication s:COPD, moderate (HCC) Inhale 2 Puffs by mouth every 4 hours as needed for Shortness of Breath. 1 Each 5 03/03/2024 Active Furosemide 20 MG Oral Tablet (Lasix)Indications: [...] the morning. 60 Tablet 6 05/23/2024 Active documented as of this encounter (statuses [...] from 2018 Atherosclerotic heart diseas e of [place] coronary artery without angina pectoris 05/31/2020 CKD [...] mRNA, LNP-s, No Pre serve, 2-Dose Series (MySiteApp) 08/15/2021,01/31/2021,01/03/2021 COVID-19, LNP-s, No Preserve , Ruslan-sucrose, Ages 12+ (Pfizer) 03/19/2022 COVID-19, MRNA-LNP, 23-24, P F, 30 MCG/0.3 mL, 12 YRS AND ABOVE, IM ([facility]) 10/25/2023 Covid-19, Mrna, Lnp-s, Pf, B ivalent, 30 Mcg, IM, 12 yrs and above (MySiteApp) 2022 Pneumococcal Conjugate Vacc, 13 Valent (Prevnar) 01/21/2016 Pneumococcal Conjugate Vacci ne, 20-valent ([id number]) 07/19/2023 Pneumococcal Polysaccharide PPV23 (Pneumovax) 01/13/2011 RSV [...] encounter Miscellaneous Notes * Addendum Note - Emma Adorno LPN - 07/06/2024 1:11 PM EDTAddended by: EMMA ADORNO on: 07/06/2024 01:11 PM Modules accepted: Orders * Telephone Encounter - Emma Adorno LPN - 07/06/2024 1:10 PM EDT Did you pend patient's preferred pharmacy and medication before forwarding? Yes Pharmacy: [id number] [address] Pending Prescriptions: Disp Refills Albuterol Sulfate 108 (90 Base) MCG/ACT I*1 Each 11 Sig: Inhale 2 Puffs by mouth every 4 hours as needed for Shortness of Breath. Last Visit: 01/04/2024 (in office), 02/15/2020 (telemedicine) Next Visit: 01/22/2025 If no future appointments scheduled, and last appointment is greater than a year ago, please schedule patient for a follow-up appointment Last date the medication was ordered: 03/03/24 Is this request for a controlled substance?No [...] 10/21/2020 09:28 AM * Telephone Encounter - Radha Alva OSA - 07/06/2024 1:00 PM EDT Patient's calling for patient asking for a refill on Albuterol. [facility] [place] documented in this encounter Plan of Treatment Upcoming Encounters Date Type Department Care Team (Late st Contact Info) Description 07/17/2024 8:00 AM EDT Office Visit [address]umatology, [address] [address] Perry Tate MD [facility] [place] [address] 07/19/2024 11:00 AM EDT Appointment Radiology, [address] [address] 07/24/2024 2:30 PM EDT Office Visit Dermatology, Ahmet Rowell [address] [facility] [address] [address] Malaika Guzman PA-C [address] [place] [place] [address] 07/26/2024 10:30 AM EDT Appointment Radiology, [address] [address] 08/07/2024 8:15 AM EDT Office Visit [facility] Surgery [facility] 200 [place] [address] Supriya Fernandes MD 200 [place] [address] 08/14/2024 11:00 AM EDT Office Visit Nephrology, [facility] 400 [place] [address] Keisha Gunn MD 400 [place] [address] 08/21/2024 2:00 PM EDT Office Visit [facility] 21 [place] [phone] Fuentes Ashton MD 21 [place] [address] 01/22/2025 1:30 PM EDT PulmDiagnostic Pulmonary Function Lab [facility] [address] [facility] [place] [address] [address], [address] [place] [address] 01/22/2025 2:00 PM EDT Office Visit Pulmonary Medicine [facility] [address] [facility] [place] [phone] Dominguez Aguilar MD [address] [facility] [place] [address] Scheduled Procedures Name Priority Associated Diagnoses Date/Ti [...] this encounter Medical Devices Implanted Type Area Drag Out Worker Device Identifier Shelf Expiration Date Model / Serial / Lot Mesh Perfix Plug Lg [id number] - [id number] Implanted:Qty: 1 on 02/07/2019 by Jonathan Correia DO at OR [facility] Right: Lelo KEBEDE BARD : MARIE 09/04/2023 [id number] / / [id number] documented as of this encounter Visit Diagnoses Diagnosis COPD, moderate (HCC) Chronic airway obstruction, not elsewhere classified documented in this encounter Advance Directives Documents on File Type Date Recorded Patient Yard Jockey Expl anation Advance Directives and Living Will [...] Colón Adult Child Emergency Contact Care Teams Data Designer Relationship Specialty Start Date End Date Fuentes Ashton MD [address] [phone] PCP - General Family Medicine 01/30/22 documented as of this encounter
--- OUTSIDE RECORDS SUMMARY | 2024-09-30 18:23 | External Medical Summary | Summary of Care ---
Author Name Unknown Organization [facility] Address [address] [facility] [place] [address] Phone [phone] Care Team Providers Care Crucible Furnace Tender Name Role Phone Fuentes Ashton MD Primary Care Provider [phone] [phone] Reason for Visit * Reason Onset Date Comments Med Request 07/06/2024 Encounter Details Date Type Department Care Team (Late st Contact Info) Description 07/06/2024 Telephone Pulmonary Medicine Ahmet Downing [address] [phone] Dominguez Aguilar MD [address] [address] Med Request Allergies Active Allergy Reactions Criticality [...] (PriLOSEC)Indicati ons:Gastroesophage al reflux disease without esophagitis,terminal gauger (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 1 Each 4 Active Albuterol Sulfate (2.5 MG/3ML) 0.083% Inhalation Nebulization Solution (Proventil)Indicat ions:COPD, group C, by GOLD 2017 classification (HCC) inhale contents of 1 vial ( 3 milliliters ) in nebulizer by mouth and INTO THE LUNGS every 4 hours if needed for wheezing shortness of breath or cough 360 mL 5 3 07/06/20 Discontinu ed(Refill) Albuterol Sulfate 108 (90 Base) [...] from 2018 Atherosclerotic heart diseas e of [place] coronary artery without angina pectoris 05/31/2020 CKD (chronic kidney disease) stage 4, GFR 15-29 ml/min 07/17/2019 Chronic anticoagulation 04/03/2019 Vitamin D deficiency 11/17/2018 Senile osteoporosis 09/06/2018 Paroxysmal atrial fibrillation 07/08/2018 Last Assessment & Plan: Rate controlled on metoprolol Continue apixaban History of acute tubular necrosis 06/29/2018 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 IPMN (intraductal papillary mucinous neoplasm) 0 03/09/2018 Overview: MRI 02/23 [facility] (current) use 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 08/03/2023 08/03/2023 Atherosclerosis of [place] co ronary artery without angina pectoris 02/01/2023 [...] mRNA, LNP-s, No Pre serve, 2-Dose Series ([employer]) 08/15/2021,01/31/2021,01/03/2021 COVID-19, LNP-s, No Preserve , Ruslan-sucrose, Ages 12+ ([employer]) 03/19/2022 COVID-19, MRNA-LNP, 23-24, P F, 30 MCG/0.3 mL, 12 YRS AND ABOVE, IM ([facility]) 10/25/2023 Covid-19, Mrna, Lnp-s, Pf, B ivalent, 30 Mcg, IM, 12 yrs and above ([facility]) 2022 Pneumococcal Conjugate Vacc, 13 Valent (Prevnar) 01/21/2016 Pneumococcal Conjugate Vacci ne, 20-valent ([id number]) 07/19/2023 Pneumococcal Polysaccharide PPV23 (Pneumovax) 01/13/2011 RSV [...] encounter Miscellaneous Notes * Addendum Note - Willie Mares PA-C - 07/06/2024 4:32 PM EDTAddended by: WILLIE MARES on: 07/06/2024 04:32 PM Modules accepted: Orders * Addendum Note - Emma Adorno LPN - 07/06/2024 1:11 PM EDTAddended by: EMMA ADORNO on: 07/06/2024 01:11 PM Modules accepted: Orders * Telephone Encounter - Emma Adorno LPN - 07/06/2024 1:10 PM EDT Did you pend patient's preferred pharmacy and medication before forwarding? Yes [id number] [address] Pending Prescriptions: Disp Refills Albuterol Sulfate [...] for a refill on Albuterol. [facility] documented in this encounter Plan of Treatment Upcoming Encounters Date Type Department Care Team (Late st Contact Info) Description 07/17/2024 8:00 AM EDT Office Visit Rheumatology, [address] [place] [address] Perry Tate MD [address] [place] [address], [place] [address] 07/19/2024 11:00 AM EDT Appointment Radiology, [address] [place] [phone] 07/24/2024 2:30 PM EDT Office Visit Dermatology, Melissa [address]ir [place] [address] [address] [address] Malaika Guzman PA-C [address] [place] [address] 07/26/2024 10:30 AM EDT Appointment Radiology, [facility] 400 [facility] [place] [address] 08/07/2024 8:15 AM EDT Office Visit [facility] 200 [place] [address] Supriya Fernandes MD 200 [facility] [place] [address] 08/14/2024 11:00 AM EDT Office Visit Nephrology, [facility] 400 [facility] [address] Keisha Gunn MD 400 [place] [address] 08/21/2024 2:00 PM EDT Office Visit [facility] 21 [facility] [place] [phone] Fuentes Ashton MD 21 [place] [address] 01/22/2025 1:30 PM EDT PulmDiagnostic Pulmonary Function Lab [facility] [address] [address] [address], [address] [place] [address] 01/22/2025 2:00 PM EDT [facility] [place] [address] [phone] Dominguez Aguilar MD [address] [address] Scheduled Procedures Name Priority Associated Diagnoses Date/Ti [...] 11/0 12/2022, 05/18/2023, Additional history exists GFR 12/10/2024 [...] this encounter Medical Devices Implanted Type Area Benefits Processor Device Identifier Shelf Expiration Date Model / Serial / Lot Mesh Perfix Plug Lg [id number] - [id number] Implanted:Qty: 1 on 02/07/2019 by Jonathan Correia DO at OR [facility] Right: Franciscoin CR BARD : DAVOL 09/04/2023 [id number] / / [id number] documented as of this encounter Visit Diagnoses Diagnosis COPD, moderate (HCC) Chronic airway obstruction, not elsewhere classified documented in this encounter Advance Directives Documents on File Type Date Recorded Patient Appraisal Technician Expl anation Advance Directives and Living [...] Center Adult Child Emergency Contact Care Teams Crucible Furnace Tender Relationship Specialty Start Date End Date Fuentes Ashton MD [address] [phone] PCP - General Family Medicine 01/30/22 documented as of this encounter
--- OUTSIDE RECORDS SUMMARY | 2024-09-30 18:23 | External Medical Summary | Summary of Care ---
Author Name Unknown Organization [facility] Address [address] [facility] [address] Phone [phone] Care Team Providers Care First Sampler Name Role Phone Fuentes Ashton MD Primary Care Provider [phone] [phone] Reason for Visit * Reason Comments Outpatient Testing Encounter Details Date Type Department Care Team (Late st Contact Info) Description 07/12/2024 10:00 AM EDT Laboratory Laboratory, [place] 21 [place] [phone] [place], Lab 21 [place], [place] [phone] Chronic gout due to renal impairment of multiple sites without tophus; Renal osteodystrophy Allergies Active Allergy Reactions Criticality Noted Date Comments Aztreonam Hives Medium 10/11/2019 Cephalosporins Rash 05/24/2017 Chlorhexidine Hives,Rash 01/02/2022 Ciprofloxacin Diarrhea Medium 01/28/2015 Iodinated Contrast Media Abdominal pain High 019 Acute kidney failure Levofloxacin Rash Low 07/28/2019 documented as of this encounter (statuses as of 07/12/2024) Medications Medication Sig Dispensed Refills Start Date [...] Delayed Release (PriLOSEC)Indicatio ns:Gastroesophageal reflux disease without esophagitis,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 Take by [...] as of this encounter (statuses as of 07/12/2024) Active Problems Problem Noted Date Diagnosed Date [...] from 2018 Atherosclerotic heart diseas e of [place] coronary artery without angina pectoris 05/31/2020 CKD [...] as of this encounter (statuses as of 07/12/2024) Resolved Problems Problem Noted Date Diagnosed Date [...] chronic kidney disease 08/03/2023 08/03/2023 Atherosclerosis of [place] co ronary artery without angina pectoris 02/01/2023 [...] as of this encounter (statuses as of 07/12/2024) Immunizations Name Administration Dates Next Due COVID-19 mRNA, LNP-s, No Pre serve, 2-Dose Series (Prolifiq Software) 08/15/2021,01/31/2021,01/03/2021 COVID-19, LNP-s, No Preserve , Ruslan-sucrose, Ages 12+ (Pfizer) 03/19/2022 COVID-19, MRNA-LNP, 23-24, P F, 30 MCG/0.3 mL, 12 YRS AND ABOVE, IM ([facility]) 10/25/2023 Covid-19, Mrna, Lnp-s, Pf, B ivalent, 30 Mcg, IM, 12 yrs and above (P[employer]) 2022 Pneumococcal Conjugate Vacc, 13 Valent (Prevnar) 01/21/2016 Pneumococcal Conjugate Vacci ne, 20-valent ([id number]) 07/19/2023 Pneumococcal Polysaccharide PPV23 (Pneumovax) 01/13/2011 RSV [...] 07/17/2024 8:00 AM EDT Office Visit Rheumatology, [address] [place] [address] Perry Tate MD [address] [place] [address], [place] [address] 07/19/2024 11:00 AM EDT Hospital Encounter Radiology, [address] [place] [address] 07/24/2024 2:30 PM EDT Office Visit Dermatology, Ahmet Rowell [address] [place] [address] Malaika Guzman PA-C [address] [place] [address] 07/26/2024 10:30 AM EDT Appointment Radiology, [facility] 400 [facility] [address] 08/07/2024 8:15 AM EDT [facility] [address] 200 [facility] [place] [address] Supriya Fernandes MD 200 [place] [address] 08/14/2024 11:00 AM EDT Office Visit Nephrology, [facility] 400 [place] [address] Keisha Gunn MD 400 [place] [address] 08/21/2024 2:00 PM EDT Office Visit [facility] [phone] Fuentes Ashton MD 21 [place] [address] 01/22/2025 1:30 PM EDT PulmDiagnostic Pulmonary Function Lab [facility] [address] [address] [address], [address] [place] [address] 01/22/2025 2:00 PM EDT Office Visit Pulmonary Medicine [facility] [address] [phone] Dominguez Aguilar MD [address] [address] Pending Results Name Type Priority Associated Diagnoses Date /Time URIC ACID Lab Routine Chronic gout due to renal impairment of multiple sites without tophus 07/12/2024 10:01 AM EDT CBC WITH WBC DIFFERENTIAL Lab Routine Chronic gout due to renal impairment of multiple sites without tophus 07/12/2024 10:01 AM EDT COMPREHENSIVE METABOLIC PANEL Lab Routine Chronic gout due to renal impairment of multiple sites without tophus 07/12/2024 10:01 AM EDT CBC Lab Routine Chronic gout due to renal impairment of multiple sites without tophus 07/12/2024 10:01 AM EDT DIFFERENTIAL, AUTOMATED Lab Routine Chronic gout due to renal impairment of multiple sites without tophus 07/12/2024 10:01 AM EDT Scheduled Procedures Name Priority Associated [...] 01/31/2024, 1112/2022, 05/18/2023, Additional history exists GFR 12/10/2024 06/09/2024, [...] this encounter Medical Devices Implanted Type Area Iron Plastic Bullet Maker Device Identifier Shelf Expiration Date Model / Serial / Lot Mesh Perfix Plug Lg [id number] - [id number] Implanted:Qty: 1 on 02/07/2019 by Jonathan Correia DO at OR [facility] Right: Lelo KEBEDE BARD : MARIE 09/04/2023 [id number] / / [id number] documented as of this encounter Visit Diagnoses Diagnosis 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
--- OUTSIDE RECORDS SUMMARY | 2024-09-30 18:23 | External Medical Summary | Summary of Care ---
Author Name Unknown Organization [facility] Address [address] [facility] [address] Phone [phone] Care Team Providers Care Furnace Fitter Name Role Phone Fuentes Ashton MD Primary Care Provider [phone] Reason for Visit * Reason Onset Date Comments Med Request 07/06/2024 Encounter Details Date Type Department Care Team (Late st Contact Info) Description 07/06/2024 Telephone Pulmonary Medicine Ahmet Downing [address] [address] [phone] Dominguez Aguilar MD [address] [place] [place] [address] [address] Med Request Allergies Active Allergy Reactions Criticality [...] Release (PriLOSEC)Indicatio ns:Gastroesophageal reflux disease without esophagitis,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) use 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 Take [...] C, by GOLD 2017 classification ([facility]) inhale contents of 1 vial ( 3 [...] from 2018 Atherosclerotic heart diseas e of [place] coronary artery without angina pectoris 05/31/2020 CKD (chronic kidney disease) stage 4, GFR 15-29 ml/min 07/17/2019 Chronic anticoagulation 04/03/2019 Vitamin D deficiency 11/17/2018 Senile osteoporosis 09/06/2018 Paroxysmal atrial fibrillation 07/08/2018 Last Assessment & Plan: Rate controlled on metoprolol Continue apixaban History of acute tubular necrosis 06/29/2018 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 IPMN (intraductal papillary mucinous neoplasm) 0 03/09/2018 Overview: MRI 02/23 [facility] (current) use 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 08/03/2023 08/03/2023 Atherosclerosis of [place] co ronary artery without angina pectoris [...] mRNA, LNP-s, No Pre serve, 2-Dose Series ([facility]) 08/15/2021,01/31/2021,01/03/2021 COVID-19, LNP-s, No Preserve , Ruslan-sucrose, Ages 12+ (Pfizer) 03/19/2022 COVID-19, MRNA-LNP, 23-24, P F, 30 MCG/0.3 mL, 12 YRS AND ABOVE, IM ([facility]) 10/25/2023 Covid-19, Mrna, Lnp-s, Pf, B ivalent, 30 Mcg, IM, 12 yrs and above ([facility]) 2022 Pneumococcal Conjugate Vacc, 13 Valent (Prevnar) 01/21/2016 Pneumococcal Conjugate Vacci ne, 20-valent ([id number]) 07/19/2023 Pneumococcal Polysaccharide PPV23 (Pneumovax) 01/13/2011 RSV [...] medication before forwarding? Yes Pharmacy: [facility] #[id number] [address] Pending Prescriptions: Disp Refills Albuterol Sulfate [...] 07/17/2024 8:00 AM EDT Office Visit Rheumatology, [address] [address] Perry Tate MD [facility]0 [place] [address] 07/19/2024 11:00 AM EDT Appointment Radiology, [address] [address] 07/24/2024 2:30 PM EDT Office Visit Dermatology, Ahmet Rowell [address] [facility] 140 [place] [address] Malaika Guzman PA-C [address] [place] [address] 07/26/2024 10:30 AM EDT Appointment Radiology, [address] [address] 08/07/2024 8:15 AM EDT Office Visit [facility] Surgery [facility] 200 [place] [address] Supriya Fernandes MD 200 [place] [address] 08/14/2024 11:00 AM EDT Office Visit Nephrology, [facility] 400 [place] [address] Keisha Gunn MD 400 [place] [address] 08/21/2024 2:00 PM EDT [facility] 21 [place] [phone] Fuentes Ashton MD 21 [place] [address] 01/22/2025 1:30 PM EDT PulmDiagnostic Pulmonary Function Lab [facility] [address] [facility] [place] [address] [address], [address] [place] [address] 01/22/2025 2:00 PM EDT Office Visit Pulmonary Medicine [facility] 217 [address] [facility] [place] [phone] Dominguez Aguilar MD [address] [facility] [place] [address] Scheduled Procedures Name Priority Associated Diagnoses Date/Ti [...] encounter Medical Devices Implanted Type Area Assistant Gm Of Content & Delivery Device Identifier Shelf Expiration Date Model / Serial / Lot Mesh Perfix Plug Lg [id number] - [id number] Implanted:Qty: 1 on 02/07/2019 by Jonathan Correia DO at OR [facility] Right: Lelo KEBEDE BARD : MARIE 09/04/2023 [id number] / / [id number] documented as of this encounter Visit Diagnoses Diagnosis COPD, moderate (HCC) Chronic airway obstruction, not elsewhere classified documented in this encounter Advance Directives Documents on File Type Date Recorded Patient Online Media Buyer Expl anation Advance Directives and Living Will [...] Colón Adult Child Emergency Contact Care Teams Furnace Fitter Relationship Specialty Start Date End Date Fuentes Ashton MD 21 [place] [phone] PCP - General Family Medicine 01/30/22 documented as of this encounter
--- OUTSIDE RECORDS SUMMARY | 2024-09-30 18:23 | External Medical Summary ---
Author Name Unknown Address Unknown Organization K01:LABORATORY [facility] [place] - [address] [place] [facility] [place] [address] Laboratory Report Ordering Provider Test Date Status JOSELO VIDES 07/12/2024 10:01:57 Final Observation Date Value Abnormality Reference (Units ) Status BUN 07/12/2024 10:01:57 46 Above high normal 6-20 (mg/dL) Final Creatinine 07/12/2024 10:01:57 2.9 Above high normal 0.6-1.2 (mg/dL) Final Glomerular filtration rate/1.73 sq M.predicted [Volume Rate/Area] in Serum, Plasma or Blood by Creatinine-based formula (CKD-EPI) 07/12/2024 10:01:57 22 Below low normal >=60 (mL/min) Final eGFR is calculated based on the CKD-EPI 2020 equation. Sodium 07/12/2024 10:01:57 138 135-146 (m mol/L) Final Potassium 07/12/2024 10:01:57 3.9 3.5-5.1 (m mol/L) Final Cl 07/12/2024 10:01:57 100 98-107 (mm ol/L) Final CO2 07/12/2024 10:01:57 25 22-32 (mmo l/L) Final Anion gap 07/12/2024 10:01:57 13 7-15 (mmol /L) Final Glucose 07/12/2024 10:01:57 134 Above high normal 70 -120 (mg/dL) Final Albumin 07/12/2024 10:01:57 4.2 3.8-5.0 (g /dL) Final AST (Aspartate aminotransferase) 07/12/2024 10:01:57 29 10-50 (U/L) Fin al Alk Phos 07/12/2024 10:01:57 56 35-130 (U/ L) Final Bilirubin, Total 07/12/2024 10:01:57 0.3 <=1 .2 (mg/dL) Final Calcium 07/12/2024 10:01:57 9.5 8.4-10.2 ( mg/dL) Final Protein 07/12/2024 10:01:57 6.6 6.0-8.3 (g /dL) Final ALT (Alanine aminotransferase) 07/12/2024 10:01:57 16 10-50 (U/L) Everardo diaz Performing Location LABORATORY [facility] [place] - [address] [facility] [address]
--- OUTSIDE RECORDS SUMMARY | 2024-09-30 18:23 | External Medical Summary | Summary of Care ---
Author Name Unknown Organization [facility] Address [address] [place] [facility] [place] [address] Phone [phone] Care Team Providers Care Preforms Laminator Name Role Phone Fuentes Ashton MD Primary Care Provider [phone] [phone] Reason for Referral * Evaluate & Treat - Unlimited Visits (Within 30 days (routine)) - Pending Review Specialty Diagnoses / Procedures Referred By Contaugustin t Referred To Contact Dermatology Diagnoses SCC (squamous cell carcinoma), scalp/neck Malaika Guzman PA-C [place] [address] Referral ID Status Reason Start Date Expiration Date Visits Requested Visits Authorized [id number] Pending Review Specialty Services Required 07/03/2024 999 999 Question Answer Referral Priority Within 30 days (routine) Where should this appointment be scheduled? [facility] Are you referring the patient for Mohs Surgery and have a current positive skin cancer biopsy result? Yes Type of Procedure MOHS Surgery Comments SCC L neck-= Mohs Reason for Visit * Reason Onset Date Comments Test Results 07/03/2024 Scheduling 07/03/2024 Encounter Details Date Type Department Care Team (Late st Contact Info) Description 07/03/2024 Telephone Dermatology, Max Rowell [address] [place] [address] Malaika Guzman PA-C [address] [place] [address] Test Results; Scheduling Allergies Active Allergy Reactions Criticality Noted Date Comments Aztreonam Hives Medium 10/11/2019 Cephalosporins Rash 05/24/2017 Chlorhexidine Hives,Rash 01/02/2022 Ciprofloxacin Diarrhea Medium 01/28/2015 Iodinated Contrast Media Abdominal pain High 019 Acute kidney failure Levofloxacin Rash Low 07/28/2019 documented as of this encounter (statuses as of 07/04/2024) Medications Medication Sig Dispensed Refills Start Date [...] Delayed Release (PriLOSEC)Indicatio ns:Gastroesophageal reflux disease without esophagitis,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 30 Tablet 03/31/2024 Active Sodium Bicarbonate 650 MG Oral [...] as of this encounter (statuses as of 07/04/2024) Active Problems Problem Noted Date Diagnosed Date [...] from 2018 Atherosclerotic heart diseas e of [place]ee-shaw[place] coronary artery without angina pectoris 05/31/2020 CKD (chronic kidney disease) stage 4, GFR 15-29 ml/min 07/17/2019 Chronic anticoagulation 04/03/2019 Vitamin D deficiency 11/17/2018 Senile osteoporosis 09/06/2018 Paroxysmal atrial fibrillation 07/08/2018 Last Assessment & Plan: Rate controlled on metoprolol Continue apixaban History of acute tubular necrosis 06/29/2018 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 IPMN (intraductal papillary mucinous neoplasm) 0 03/09/2018 Overview: MRI 02/23 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) use 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 Steroid-induced diabetes [...] as of this encounter (statuses as of 07/04/2024) Resolved Problems Problem Noted Date Diagnosed Date [...] chronic kidney disease 08/03/2023 08/03/2023 Atherosclerosis of absentee-shawnee co ronary artery without angina pectoris 02/01/2023 [...] as of this encounter (statuses as of 07/04/2024) Immunizations Name Administration Dates Next Due COVID-19 mRNA, LNP-s, No Pre serve, 2-Dose Series (On[employer] Technology) 08/15/2021,01/31/2021,01/03/2021 COVID-19, LNP-s, No Preserve , Ruslan-sucrose, Ages 12+ (On[employer] Technology) 03/19/2022 COVID-19, MRNA-LNP, 23-24, P F, 30 MCG/0.3 mL, 12 YRS AND ABOVE, IM ([facility]) 10/25/2023 Covid-19, Mrna, Lnp-s, Pf, B ivalent, 30 Mcg, IM, 12 yrs and above (Pfizer) 2022 Pneumococcal Conjugate Vacc, 13 Valent (Prevnar) 01/21/2016 Pneumococcal Conjugate Vacci ne, 20-valent ([id number]) 07/19/2023 Pneumococcal Polysaccharide PPV23 (Pneumovax) 01/13/2011 RSV Vac., Bivalent, Perfusio n F, Pf,0.5 Ml (Abrysvo) 09/28/2023 Season Influenza, Quad, PF, Adjuvanted, 65+ Yrs, IM (FLUAD) 08/26/2020 Seasonal Influenza, PF, 6 M & above, IM , (FluLaval or Fluzone) 09/21/2018,09/28/2017 Seasonal Influenza, Quadriva lent Hd (Fluzone Hd) 08/30/2023,09/01/2021 Seasonal Influenza, Quadriva lent, No Preserve, IM 08/27/2016 Seasonal Influenza, Split, I IV3, With Preserve, Inj 07/11/2015,10/18/2014 Seasonal Influenza, Trivalen t, Adjuvanted, 65+ yrs 09/23/2022,07/19/2019 TDAP (age 10 and older)(Boostrix) 04/23/2023 [...] encounter Miscellaneous Notes * Telephone Encounter - Lasahy Durant OSA - 07/04/2024 4:05 PM EDT Pt called in and scheduled for 08/07 at 8:15 * Telephone Encounter - Supriya Fernandes MD - 07/04/2024 12:10 PM EDT Attempted to call pt to explain preop imaging. No answer. Supriya Fernandes MD 07/04/2024 12:11 PM * Telephone Encounter - Malaika Guzman PA-C - 07/03/2024 11:42 AM EDT Final Diagnosis A. Skin, L neck, shave: Squamous cell carcinoma, moderately differentiated type Mohs- Rapidly growing so hope to get in [facility] (did discuss with Dr. Fernandes has limited availability) Malaika Guzman PA-C 07/03/2024 11:43 AM * Telephone Encounter - Holli Esparza MED ASSIST - 07/03/2024 11:21 AM EDT Pt's , Karen, is calling to get pt's bx results from 06/27/24. They will be home until 5 pm todayif you would like to review and contact them with results. documented in this encounter Plan of Treatment Upcoming Encounters Date Type Department Care Team (Late st Contact Info) Description 07/17/2024 8:00 AM EDT Office Visit Rheumatology, [address] [place] [address] Perry Tate MD [address] [place] [address], [place] [address] 07/19/2024 11:00 AM EDT Appointment Radiology, [facility] [address] [place] [address] 07/24/2024 2:30 PM EDT Office Visit [place]ology, [place] [address] [place] [address] Malaika Guzman PA-C [address] [place] [address] 08/07/2024 8:15 AM EDT Office [facility] [address] [place] [address] Supriya Fernandes MD [address] [place] [address] 08/14/2024 11:00 AM EDT Office Visit Nephrology, [facility] [address] [place] [address] Keisha Gunn MD 400 [place] [address] 08/21/2024 2:00 PM EDT Office Visit [facility] [address] [facility] [phone] Fuentes Ashton MD [address] [facility] [address] 01/22/2025 1:30 PM EDT PulmDiagnostic Pulmonary Function Lab [facility] [place] [address] [address] [address], [address] [place] [address] 01/22/2025 2:00 PM EDT Office Visit Pulmonary Medicine [place] [address] [phone] Dominguez Aguilar MD [address] [place] [address] [address] Scheduled Procedures Name Priority Associated Diagnoses Date/Ti me COLONOSCOPY FLEXIBLE PROXIMA L DIAGNOSTIC Recall Diverticulosis of sigmoid colon Scheduled Referrals Name Type Priority Associated Diagnoses Orde r Schedule MOHS SURGERY REFERRAL OP Referral Within 30 days (routine) SCC (squamous cell carcinoma), scalp/neck Ordered: 07/03/2024 Health Maintenance Due Date Last Done Comments [...] this encounter Medical Devices Implanted Type Area Fiber Artist Device Identifier Shelf Expiration Date Model / Serial / Lot Mesh Perfix Plug Lg [id number] - [id number] Implanted:Qty: 1 on 02/07/2019 by Jonathan Correia DO at OR [facility] Right: Groin CR BARD : DAVOL 09/04/2023 [id number] / / [id number] documented as of this encounter Visit Diagnoses Diagnosis SCC (squamous cell carcinoma), scalp/neck- Primary Squamous cell carcinoma of scalp and skin of neck documented in this encounter Advance Directives Documents on File Type Date Recorded 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
--- OUTSIDE RECORDS SUMMARY | 2024-09-30 18:23 | External Medical Summary | Summary of Care ---
Author Name Unknown Organization [facility] Address [address] [place] [address] Phone [phone] Care Team Providers Care Split Leather Department Supervisor Name Role Phone Fuentes Ashton MD Primary Care Provider [phone] Reason for Referral * Evaluate & Treat - Unlimited Visits (Within 30 days (routine)) - Pending Review Specialty Diagnoses / Procedures Referred By Contaugustin t Referred To Contact Dermatology Diagnoses SCC (squamous cell carcinoma), scalp/neck Malaika Guzman PA-C [place] [address] Referral ID Status Reason Start Date Expiration Date Visits Requested Visits Authorized [id number] Pending Review Specialty Services Required 07/03/2024 999 [...] st Contact Info) Description 07/03/2024 Telephone Dermatology, Ahmet Rowell [address] [place] [address] Malaika Guzman PA-C [address] [place] [address] Test Results; Scheduling Allergies Active Allergy Reactions [...] from 2018 Atherosclerotic heart diseas e of nikolski coronary artery without angina pectoris 05/31/2020 CKD (chronic kidney disease) stage 4, GFR 15-29 ml/min 07/17/2019 Chronic anticoagulation 04/03/2019 Vitamin D deficiency 11/17/2018 Senile osteoporosis 09/06/2018 Paroxysmal atrial fibrillation 07/08/2018 Last Assessment & Plan: Rate controlled on metoprolol Continue apixaban History of acute tubular necrosis 06/29/2018 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 IPMN (intraductal papillary mucinous neoplasm) 0 03/09/2018 Overview: MRI 02/23 shelter (current) use 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 08/03/2023 08/03/2023 Atherosclerosis of nikolski co ronary artery without angina pectoris 02/01/2023 [...] mRNA, LNP-s, No Pre serve, 2-Dose Series ([employer]um[employer]) 08/15/2021,01/31/2021,01/03/2021 COVID-19, LNP-s, No Preserve , Ruslan-sucrose, Ages 12+ (YumDots) 03/19/2022 COVID-19, MRNA-LNP, 23-24, P F, 30 MCG/0.3 mL, 12 YRS AND ABOVE, IM ([facility]) 10/25/2023 Covid-19, Mrna, Lnp-s, Pf, B ivalent, 30 Mcg, IM, 12 yrs and above (Pfizer) 2022 Pneumococcal Conjugate Vacc, 13 Valent (Prevnar) 01/21/2016 Pneumococcal Conjugate Vacci ne, 20-valent ([id number]) 07/19/2023 Pneumococcal Polysaccharide PPV23 (Pneumovax) 01/13/2011 RSV [...] 07/17/2024 8:00 AM EDT Office Visit Rheumatology, [address] [place] [address] Perry Tate MD [address] [place] [address], [place] [id number] 07/24/2024 2:30 PM EDT Office Visit Dermatology, Ahmet Rowell Melissa Abdul [facility] [address] [place] [address] Malaika Guzman PA-C [place] [address] 08/14/2024 11:00 AM EDT Office [address]rology, [address] [address] Keisha Gunn MD [address] [place] [address] 08/21/2024 2:00 PM EDT [facility] [phone] Fuentes Ashton MD 21 [place] [address] 01/22/2025 1:30 PM EDT PulmDiagnostic Pulmonary Function Lab [facility] [address] [facility] [place] [address] [address], [address] [place] [address] 01/22/2025 2:00 PM EDT Office Visit Pulmonary Medicine [facility] [address] [facility] [place] [phone] Dominguez Aguilar MD [address] [facility] [address] Scheduled Procedures Name Priority Associated Diagnoses Date/Ti [...] this encounter Medical Devices Implanted Type Area Explosive Ordnance Disposal Technician Device Identifier Shelf Expiration Date Model / Serial / Lot Mesh Perfix Plug Lg [id number] - [id number] Implanted:Qty: 1 on 02/07/2019 by Jonathan Correia DO at OR [facility] Right: Lelo KEBEDE BARD : MARIE 09/04/2023 [id number] / / [id number] documented as of this encounter Visit Diagnoses Diagnosis SCC (squamous cell carcinoma), scalp/neck- Primary Squamous cell carcinoma of scalp and skin of neck documented in this encounter Advance Directives Documents on File Type Date Recorded 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
--- OUTSIDE RECORDS SUMMARY | 2024-09-30 18:23 | External Medical Summary ---
Author Name Unknown Address Unknown Organization K01:LABORATORY [facility] [place] - [address] [place] [address] Laboratory Report Ordering Provider Test Date Status JOSELO VIDES 07/12/2024 10:01:57 Final Observation Date Value Abnormality Reference (Units ) Status Uric Acid 07/12/2024 10:01:57 5.2 3.4-7.0 (m g/dL) Final Performing Location LABORATORY [facility] [place] - [address] [place] [address]
--- OUTSIDE RECORDS SUMMARY | 2024-09-30 18:23 | External Medical Summary ---
Author Name Unknown Address Unknown Organization K01:LABORATORY [facility] [place] - [address] [address] [facility] [address] [facility] [address] Laboratory Report Ordering Provider Test Date Status JOSELO VIDES 07/12/2024 10:01:57 Final Observation Date Value Abnormality Reference (Units ) Status WBC, Total 07/12/2024 10:01:57 6.86 4.00-10.80 (K/uL) Final RBC 07/12/2024 10:01:57 3.85 4.50-5.25 (M/uL) Final Hemoglobin 07/12/2024 10:01:57 12.6 Below low normal 14.0-16.8 (g/dL) Final HCT 07/12/2024 10:01:57 40.7 40.0-48.4 (%) Final MCV 07/12/2024 10:01:57 105.7 82.0-99.5 (fL) Final MCH 07/12/2024 10:01:57 32.7 27.0-34.0 (pg) Final MCHC 07/12/2024 10:01:57 31.0 32.0-36.0 (g/dL) Final RDW 07/12/2024 10:01:57 14.2 11.5-15.5 (%) Final Platelets 07/12/2024 10:01:57 91 Below low normal 140-400 (K/uL) Final MPV 07/12/2024 10:01:57 13.4 6.6-11.1 (fL) Final Nucleated erythrocytes/100 leukocytes [Ratio] in Blood by Automated count 07/12/2024 10:01:57 0 <=0 (/100 WBCs) Final Performing Location LABORATORY [facility] - [address] [place] [address]
--- OUTSIDE RECORDS SUMMARY | 2024-09-30 18:24 | External Medical Summary | Summary of Care ---
Author Name Unknown Organization [facility] Address [address] [facility] [address] Phone [phone] Care Team Providers Care Manager Wealth Management Name Role Phone Fuentes Ashton MD Primary Care Provider [phone] Reason for Referral * Evaluate & Treat - Unlimited Visits (Within 30 days (routine)) - Pending Review Specialty Diagnoses / Procedures Referred By Contaugustin t Referred To Contact Dermatology Diagnoses SCC (squamous cell carcinoma), scalp/neck Malaika Guzman PA-C [place] [address] Referral ID Status Reason Start Date Expiration Date Visits Requested Visits Authorized [id number] Pending Review Specialty Services Required 07/03/2024 999 [...] Info) Description 07/03/2024 Telephone Dermatology, Ahmet Rowell [address] [place] [address] Malaika Guzman PA-C [address] [place] [address] Test Results; Scheduling Allergies Active Allergy Reactions Criticality Noted Date Comments Aztreonam Hives Medium 10/11/2019 Cephalosporins Rash 05/24/2017 Chlorhexidine Hives,Rash 01/02/2022 Ciprofloxacin Diarrhea Medium 01/28/2015 Iodinated Contrast Media Abdominal pain High 019 Acute kidney failure Levofloxacin Rash Low 07/28/2019 documented as of this encounter (statuses as of 07/03/2024) Medications Medication Sig Dispensed Refills Start Date [...] Delayed Release (PriLOSEC)Indicatio ns:Gastroesophageal reflux disease without esophagitis,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 Take [...] as of this encounter (statuses as of 07/03/2024) Active Problems Problem Noted Date Diagnosed Date [...] from 2018 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 05/31/2020 CKD [...] as of this encounter (statuses as of 07/03/2024) Resolved Problems Problem Noted Date Diagnosed Date [...] chronic kidney disease 08/03/2023 08/03/2023 Atherosclerosis of sokaogon co ronary artery without angina pectoris 02/01/2023 [...] as of this encounter (statuses as of 07/03/2024) Immunizations Name Administration Dates Next Due COVID-19 mRNA, LNP-s, No Pre serve, 2-Dose Series (LookTracker) 08/15/2021,01/31/2021,01/03/2021 COVID-19, LNP-s, No Preserve , Ruslan-sucrose, Ages 12+ (LookTracker) 03/19/2022 COVID-19, MRNA-LNP, 23-24, P F, 30 MCG/0.3 mL, 12 YRS AND ABOVE, IM ([facility]) 10/25/2023 Covid-19, Mrna, Lnp-s, Pf, B ivalent, 30 Mcg, IM, 12 yrs and above (Pfizer) 2022 Pneumococcal Conjugate Vacc, 13 Valent (Prevnar) 01/21/2016 Pneumococcal Conjugate Vacci ne, 20-valent ([id number]) 07/19/2023 Pneumococcal Polysaccharide PPV23 (Pneumovax) 01/13/2011 RSV [...] encounter Miscellaneous Notes * Telephone Encounter - Malaika Guzman PA-C [...] 07/17/2024 8:00 AM EDT Office Visit Rheumatology, [address] [address] Perry Tate MD [address] [place] [address], [place] [address] 07/24/2024 2:30 PM EDT Office Visit Dermatology, [place] [address] Melissa Abdul [facility] [address] [place] [address] Malaika Guzman PA-C [address] [address] 08/14/2024 11:00 AM EDT Office Visit Nephrology, [address] [address] Keisha Gunn MD [address] [place], [place] [address] [phone] 08/21/2024 2:00 PM EDT Office Visit [facility] [address] [facility] [place] [address] Fuentes Ashton MD 21 [facility] [place] [address] 01/22/2025 1:30 PM EDT PulmDiagnostic Pulmonary Function Lab [facility] [place] [address] [facility] [place] [address] [address], [address] [place] [address] 01/22/2025 2:00 PM EDT Office Visit Pulmonary Medicine [facility] [place] [address] [facility] [place] [phone] Dominguez Aguilar MD [address] [facility] [place] [address] Scheduled Procedures Name Priority Associated Diagnoses Date/Ti [...] IN PAST YEAR FOR COPD 06/13/2025 06/13/2024 DTaP,Tdap,and Td Vaccines (4 - Td or Tdap) 04/23/2033 [...] this encounter Medical Devices Implanted Type Area Department Helper Device Identifier Shelf Expiration Date Model / Serial / Lot Mesh Perfix Plug Lg [id number] - [id number] Implanted:Qty: 1 on 02/07/2019 by Jonathan Correia DO at OR [facility] Right: Groin CR BARD : DAVOL 09/04/2023 [id number] / / [id number] documented as of this encounter Visit Diagnoses Diagnosis SCC (squamous cell carcinoma), scalp/neck- Primary Squamous cell carcinoma of scalp and skin of neck documented in this encounter Advance Directives Documents on File Type Date 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
--- OUTSIDE RECORDS SUMMARY | 2024-09-30 18:24 | External Medical Summary | Summary of Care ---
Author Name Unknown Organization [facility] Address [address] [facility] [place] [address] Phone [phone] Care Team Providers Care Fourdrinier Machine Operator Name Role Phone Fuentes Ashton MD Primary Care Provider [phone] Reason for Visit * Reason Comments Lesion Large lesion on left side of neck - went to [facility] who referred him here. HX multiple BCC, SCC's. Encounter Details Date Type Department Care Team (Late st Contact Info) Description 06/27/2024 11:40 AM EDT Office Visit Dermatology, Ahmet Rowell [address] [place] [address] Malaika Guzman PA-C [address] [place] [phone] Skin neoplasm* Allergies Active Allergy Reactions Criticality Noted Date Comments Aztreonam Hives Medium 10/11/2019 Cephalosporins Rash 05/24/2017 Chlorhexidine Hives,Rash 01/02/2022 Ciprofloxacin Diarrhea Medium 01/28/2015 Iodinated Contrast Media Abdominal pain High 019 Acute kidney failure Levofloxacin Rash Low 07/28/2019 documented as of this encounter (statuses as of 06/27/2024) Medications Medication Sig Dispensed Refills Start Date [...] Delayed Release (PriLOSEC)Indicatio ns:Gastroesophageal reflux disease without esophagitis,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 IPMN (intraductal papillary mucinous neoplasm) 0 03/09/2018 Overview: MRI 02/23 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) use 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 Steroid-induced diabetes [...] as of this encounter (statuses as of 06/27/2024) Resolved Problems Problem Noted Date Diagnosed Date [...] chronic kidney disease 08/03/2023 08/03/2023 Atherosclerosis of [place] co ronary artery without angina pectoris 02/01/2023 [...] as of this encounter (statuses as of 06/27/2024) Immunizations Name Administration Dates Next Due COVID-19 mRNA, LNP-s, No Pre serve, 2-Dose Series ([employer]) 08/15/2021,01/31/2021,01/03/2021 COVID-19, LNP-s, No Preserve , Ruslan-sucrose, Ages 12+ (Pfizer) 03/19/2022 COVID-19, MRNA-LNP, 23-24, P F, 30 MCG/0.3 mL, 12 YRS AND ABOVE, IM ([employer]-Comirnat) 10/25/2023 Covid-19, Mrna, Lnp-s, Pf, B ivalent, 30 Mcg, IM, 12 yrs and above ([employer]) 2022 Pneumococcal Conjugate Vacc, 13 Valent (Prevnar) 01/21/2016 Pneumococcal Conjugate Vacci ne, 20-valent ([id number]) 07/19/2023 Pneumococcal Polysaccharide PPV23 (Pneumovax) 01/13/2011 RSV [...] Progress Notes * Lyle Wright MD - 06/27/2024 11:40 AM EDT I have reviewed the relevant notes and photographs taken by LE Sommers. I have reviewed and agree with the assessment and plan. Lyle Wright MD * Malaika Guzman PA-C - 06/27/2024 11:20 AM EDT SUBJECTIVE: CC: Spot on neck HPI: Kennedy Davis is a 78 year old male who is an established patient seen for spot on neck. Patient last visit on 12/21/2023. Spot on L neck. Present for a couple months[facility] and told them to follow up with us in Oct. It then rapidly grew. DERM HISTORY Hx SCC mid chest (2020-curettage), SCC R forearm (2020-curettage), BCC mid back (2021-Mohs), BCC R upper back (2021-curettage), SCC L forearm (2021-curettage), BCC R posterior ear (2021-deferred Mohs, curetted) REVIEW OF SYSTEMS: See HPI- all other findings negative Constitutional: (-) fever, chills, sweats, weight loss Cardiovascular: (-) lower extremity edema Skin: (-) no rash or new or changing moles or skin lesions MEDICA TIONS: Current Outpatient Medications Medication Sig Dispense Refill [...] day for 6 weeks 170 g 3 Albuterol Sulfate (2.5 MG/3ML) 0.083% Inhalation Nebulization Solution (Proventil) inhale contents of 1 vial ( 3 milliliters ) in nebulizer by mouth and INTO THE LUNGS every 4 hours if needed for wheezing shortness of breath or cough 360 mL 5 Atorvastatin Calcium 20 MG Oral Tablet (Lipitor) [...] mouth in the morning. 180 Each 3 Albuterol Sulfate 108 (90 Base) MCG/ACT Inhalation Aerosol Powder Breath Activated Inhale 2 Puffs by mouth every 4 hours as needed for Shortness of Breath. 1 Each 5 Furosemide 20 MG Oral Tablet (Lasix) Take [...] mouth in the morning. 60 Tablet 6 PredniSONE (DELTASONE) 20 MG Tablet Take 2 Tabs by mouth daily for 5 days. 10 Tab 0 PredniSONE (DELTASONE) 20 MG Tablet Take 2 Tabs by mouth daily for 7 days. 14 Tab 0 predniSONE 20 MG Oral Tablet (Deltasone) Take by mouth 2 Tablets in the morning for 5 days. 10 Tablet 0 No current facility-administered medications for this visit. ALLERG Y: Iodinated contrast media, Azactam [aztreonam], Ciprofloxacin, Cephalosporins, Chlorhexidine, and Levofloxacin OBJECTIVE: GEN: Healthy, alert, no distress, appears oriented, pleasant, and cooperative. PSYCH: Appropriate mood and affect, alert SKIN: Detailed exam of L neck was completed and are within normal limits with the following exceptions: 1. 2.5 cm rapidly growing skin colored plaque on L neck ASSESSMENT/PLAN: 1. Favor SCC -Discussed concern for potential malignancy and recommendation [...] results andarrange appropriate follow-up care as indicated. Patient with today. Follow-up: Keep FBSE Photos taken 1-5, patient consented to photos taken. Contact patient via home phone ( Karen) Ok to leave results on message: Yes Patient Phone Numbers Applicable photos (if any) and chart reviewed by Dr. Juan Wright The patient was encouraged to contact me with any further questions or concerns. Malaika Guzman PA-C 06/27/2024 11:23 AM documented in this encounter Nursing Notes * Arina Nguyen LPN - 06/27/2024 11:16 AM EDT Chief Complaint Patient presents with Lesion Large lesion on left side of neck - went to CC who referred him here. HX multiple BCC, SCC's. 12/21/2023 (in office), Visit date not found (telemedicine) documented in this encounter Plan of Treatment Upcoming Encounters Date Type Department Care Team (Late st Contact Info) Description 07/17/2024 8:00 AM EDT Office Visit Rheumatology, [address] [place] [address] Perry Tate MD [address] [place] [address] 07/24/2024 2:30 PM EDT Office Visit Dermatology, [facility] 27 [facility] [address] [place] [phone] Malaika Guzman PA-C [facility] [address] 08/14/2024 11:00 AM EDT Office Visit Nephrology, [address] [place] [phone] Keisha Gunn MD [address] [place], [place] [address] [address] 08/21/2024 2:00 PM EDT Office Visit Family [facility] [place] [phone] Fuentes Ashton MD [address] [place] [address] 01/22/2025 1:30 PM EDT [facility] [address] [place] [address] [address], [address] [place] [address] 01/22/2025 2:00 PM EDT Office [facility] [place] [address] [place] [phone] Dominguez Aguilar MD [address] [place] [address] Pending Results Name Type Priority Associated Diagnoses Date /Time SURGICAL PATHOLOGY Pathology Routine Skin neoplasm 06/27/2024 11:23 AM EDT Scheduled Procedures Name Priority Associated [...] 110 12/2022, 05/18/2023, Additional history exists GFR 12/10/2024 [...] this encounter Medical Devices Implanted Type Area Transition Specialist Device Identifier Shelf Expiration Date Model / Serial / Lot Mesh Perfix Plug Lg [id number] - [id number] Implanted:Qty: 1 on 02/07/2019 by Jonathan Correia DO at OR [facility] Right: Groin CR BARD : DAVOL 09/04/2023 [id number] / / [id number] documented as of this encounter Procedures Procedure Name Priority Date/Time Associated Diagnosis Comments DERM EXAM - DERM (IMAGES ONLY, NO REPORT) Routine 06/27/2024 11:35 AM EDT Skin neoplasm documented in this encounter Results * DERM EXAM - DERM (IMAGES ONLY, NO REPORT) (06/27/2024 11:35 AM EDT) Narrative Scheduling, Silent - 06/27/2024 11:35 AM EDT This is an imaging study not interpreted or resulted by a [facility] or [facility] contracted radiologist. 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
--- OUTSIDE RECORDS SUMMARY | 2024-09-30 18:24 | External Medical Summary | Summary of Care ---
Author Name Unknown Organization [facility] Address [address] [place] [address] Phone [phone] Care Team Providers Care Scrubber Operator Name Role Phone Fuentes Ashton MD Primary Care Provider [phone] Encounter Details Date Type Department Care Team (Latest Contact Info) Description 06/27/2024 11:35 AM EDT - 06/27/2024 11:59 PM EDT Hospital Encounter Radiology Film File [address] [place] [address] Arrived Discharge Disposition: Home - Self Care Allergies Active Allergy Reactions Criticality Noted Date Comments Aztreonam Hives Medium 10/11/2019 Cephalosporins Rash 05/24/2017 Chlorhexidine Hives,Rash 01/02/2022 Ciprofloxacin Diarrhea Medium 01/28/2015 Iodinated Contrast Media Abdominal pain High 019 Acute kidney failure Levofloxacin Rash Low 07/28/2019 documented as of this encounter (statuses as of 06/28/2024) Medications Medication Sig Dispensed Refills Start Date [...] Release (PriLOSEC)Indicatio ns:Gastroesophageal reflux disease without esophagitis,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) use 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 Take by [...] GOLD 2017 classification ([facility]) inhale contents of 1 vial ( [...] as of this encounter (statuses as of 06/28/2024) Active Problems Problem Noted Date Diagnosed Date [...] from 2019 Atherosclerotic heart diseas e of [place] coronary artery without angina pectoris 05/31/2020 CKD [...] as of this encounter (statuses as of 06/28/2024) Resolved Problems Problem Noted Date Diagnosed Date [...] chronic kidney disease 08/03/2023 08/03/2023 Atherosclerosis of [place] co ronary artery without angina pectoris 02/01/2023 [...] as of this encounter (statuses as of 06/28/2024) Immunizations Name Administration Dates Next Due COVID-19 mRNA, LNP-s, No Pre serve, 2-Dose Series ([employer]) 08/15/2021,01/31/2021,01/03/2021 COVID-19, LNP-s, No Preserve , Ruslan-sucrose, Ages 12+ (Pfizer) 03/19/2022 COVID-19, MRNA-LNP, 23-24, P F, 30 MCG/0.3 mL, 12 YRS AND ABOVE, IM ([employer]-Comirnaty) 10/25/2023 Covid-19, Mrna, Lnp-s, Pf, B ivalent, 30 Mcg, IM, 12 yrs and above ([place]) 2022 Pneumococcal Conjugate Vacc, 13 Valent (Prevnar) 01/21/2016 Pneumococcal Conjugate Vacci ne, 20-valent ([id number]) 07/19/2023 Pneumococcal Polysaccharide PPV23 (Pneumovax) 01/13/2011 RSV [...] 07/17/2024 8:00 AM EDT Office Visit Rheumatology, [address] [address] Perry Tate MD [facility] [place] [address] 07/24/2024 2:30 PM EDT [facility] 140 [place] [address] Malaika Guzman PA-C 27 [place] [address] 08/14/2024 11:00 AM EDT Office Visit Nephrology, [address] [address] Keisha Gunn MD [address] [place] [address] 08/21/2024 2:00 PM EDT Office Visit Family [facility] 21 [facility] [place] [phone] Fuentes Ashton MD 21 [place] [address] 01/22/2025 1:30 PM EDT PulmDiagnostic Pulmonary Function Lab [facility] [address] [place] [address] [address], [address] [place] [address] 01/22/2025 2:00 PM EDT Office Visit Pulmonary Medicine Ahmet Downing [address] [place] [phone] Dominguez Aguilar MD [address] [place] [address] Scheduled Procedures Name Priority Associated Diagnoses Date/Ti [...] this encounter Medical Devices Implanted Type Area Chaplain Device Identifier Shelf Expiration Date Model / Serial / Lot Mesh Perfix Plug Lg [id number] - [id number] Implanted:Qty: 1 on 02/07/2019 by Jonathan Correia DO at OR [facility] Right: Groin CR BARD : DAVOL 09/04/2023 [id number] / / [id number] documented as of this encounter Procedures Procedure [...] interpreted or resulted by a [facility] or [facility] contracted radiologist. 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 Adult Child Emergency Contact Care Teams Scrubber Operator Relationship Specialty Start Date End Date Fuentes Ashton MD [address] [place] [phone] PCP - General Family Medicine 01/30/22 documented as of this encounter
--- OUTSIDE RECORDS SUMMARY | 2024-09-30 18:24 | External Medical Summary | Summary of Care ---
Author Name Unknown Organization [facility] Address [address] [facility] [place] [address] Phone [phone] Care Team Providers Care Hydrostatic Tester Name Role Phone Fuentes Ashton MD Primary Care Provider [phone] [phone] Reason for Visit * Reason Comments Lesion Large lesion on left side of neck - went to CC who referred him here. HX multiple BCC, SCC's. 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 Take [...] ons:COPD, group C, by GOLD 2017 classification ([facility]) inhale contents of 1 vial ( [...] from 2018 Atherosclerotic heart diseas e of [place] coronary artery without angina pectoris 05/31/2020 CKD (chronic kidney disease) stage 4, GFR 15-29 ml/min 07/17/2019 Chronic anticoagulation 04/03/2019 Vitamin D deficiency 11/17/2018 Senile osteoporosis 09/06/2018 Paroxysmal atrial fibrillation 07/08/2018 Last Assessment & Plan: Rate controlled on metoprolol Continue apixaban History of acute tubular necrosis 06/29/2018 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 IPMN (intraductal papillary mucinous neoplasm) 0 03/09/2018 Overview: 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 08/03/2023 08/03/2023 Atherosclerosis of [place] co ronary artery without angina pectoris [...] mRNA, LNP-s, No Pre serve, 2-Dose Series ([employer]) 08/15/2021,01/31/2021,01/03/2021 COVID-19, LNP-s, No Preserve , Ruslan-sucrose, Ages 12+ (Pfizer) 03/19/2022 COVID-19, MRNA-LNP, 23-24, P F, 30 MCG/0.3 mL, 12 YRS AND ABOVE, IM ([employer]-Comirnat) 10/25/2023 Covid-19, Mrna, Lnp-s, Pf, B ivalent, 30 Mcg, IM, 12 yrs and above ([employer]) 2022 Pneumococcal Conjugate Vacc, 13 Valent (Prevnar) 01/21/2016 Pneumococcal Conjugate Vacci ne, 20-valent ([id number]) 07/19/2023 Pneumococcal Polysaccharide PPV23 (Pneumovax) 01/13/2011 RSV [...] Progress Notes * Malaika Guzman PA-C - 06/27/2024 11:20 [...] them to follow up with us in Aug. It then rapidly grew. DERM HISTORY Hx [...] (if any) and chart reviewed by Dr. uJan Wright The patient was encouraged to contact [...] 07/17/2024 8:00 AM EDT Office Visit Rheumatology, [address] [address] Perry Tate MD [facility] [place] [address] 07/24/2024 2:30 PM EDT Office Visit Dermatology, [facility] 27 [facility] 140 [place] [address] Malaika Guzman PA-C [address] [place] [address] 08/14/2024 11:00 AM EDT Office Visit Nephrology, [address] [address] Keisha Gunn MD [address] [place] [address] [place] [address] 08/21/2024 2:00 PM EDT Office Visit [facility] 21 [facility] [place] [phone] Fuentes Ashton MD 21 [facility] [place] [phone] 01/22/2025 1:30 PM EDT PulmDiagnostic Pulmonary Function Lab [facility] [address] [place] [address] [address], [address] [place] [address] 01/22/2025 2:00 PM EDT Office Visit Pulmonary Medicine Ahmet Downing [address] [place] [phone] Dominguez Aguilar MD [address] [place] [address] Pending Results Name Type Priority Associated Diagnoses [...] this encounter Medical Devices Implanted Type Area Acetylene Plant Operator Device Identifier Shelf Expiration Date Model / Serial / Lot Mesh Perfix Plug Lg [id number] - [id number] Implanted:Qty: 1 on 02/07/2019 by Jonathan Correia, at OR [facility] Right: Groin CR BARD : DAVOL 09/04/2023 [id number] / / [id number] documented as of this encounter Procedures Procedure [...] interpreted or resulted by a [facility] or [facility] contracted radiologist. Malaika Guzman PA-C RADIOLO GY (RAD GENERAL) documented in this encounter Visit Diagnoses Diagnosis Skin neoplasm- Primary Neoplasm of unspecified nature of bone, soft tissue, and skin documented in this encounter Advance Directives Documents on File Type Date Recorded Patient Marketing Professional Expl anation Advance Directives and Living Will [...] by patient or by statute hierarchy) [place] Adult Child Emergency Contact Care Teams Hydrostatic Tester Relationship Specialty Start Date End Date Fuentes Ashton MD [address] [place] [phone] PCP - General Family Medicine 01/30/22 documented as of this encounter
--- OUTSIDE RECORDS SUMMARY | 2024-09-30 18:24 | External Medical Summary | Summary of Care ---
Author Name Unknown Organization [facility] Address [address] [facility] [place] [address] Phone [phone] Care Team Providers Care Manager Transplant Name Role Phone Fuentes Ashton MD Primary Care Provider +1 [phone] Encounter Details Date Type Department Care Team (Late st Contact Info) Description 07/04/2024 Telephone Dermatology [facility] Frida Hal[place] [address] [place] [address] Supriya Fernandes MD [address] [facility] [address] Allergies Active Allergy Reactions Criticality Noted Date [...] classification ([facility]) inhale contents of 1 vial ( 3 [...] from 2018 Atherosclerotic heart diseas e of [place] coronary artery without angina pectoris 05/31/2020 CKD (chronic kidney disease) stage 4, GFR 15-29 ml/min 07/17/2019 Chronic anticoagulation 04/03/2019 Vitamin D deficiency 11/17/2018 Senile osteoporosis 09/06/2018 Paroxysmal atrial fibrillation 07/08/2018 Last Assessment & Plan: Rate controlled on metoprolol Continue apixaban History of acute tubular necrosis 06/29/2018 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 IPMN (intraductal papillary mucinous neoplasm) 0 03/09/2018 Overview: MRI 02/23 roasterman (current) use 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 08/03/2023 08/03/2023 Atherosclerosis of [place] co ronary artery without angina pectoris 02/01/2023 [...] Cachexia 08/30/2019 05/31/2020 Hypertensive heart disease w [facility] heart failure and stage 5 chronic kidney [...] Hypertensive heart disease w [facility] heart failure and stage 3 chronic kidney [...] mRNA, LNP-s, No Pre serve, 2-Dose Series ([employer]) 08/15/2021,01/31/2021,01/03/2021 COVID-19, LNP-s, No Preserve , Ruslan-sucrose, Ages 12+ (Pfizer) 03/19/2022 COVID-19, MRNA-LNP, 23-24, P F, 30 MCG/0.3 mL, 12 YRS AND ABOVE, IM ([facility]) 10/25/2023 Covid-19, Mrna, Lnp-s, Pf, B ivalent, 30 Mcg, IM, 12 yrs and above (Pfizer) 2022 Pneumococcal Conjugate Vacc, 13 Valent (Prevnar) 01/21/2016 Pneumococcal Conjugate Vacci ne, 20-valent ([id number]) 07/19/2023 Pneumococcal Polysaccharide PPV23 (Pneumovax) 01/13/2011 RSV [...] Telephone Encounter - Lashay Durant OSA - 07/04/2024 10:53 AM EDT Called and left Vm for pt for MOHS surgery and alerting him of a need for an MRI. * Telephone Encounter - Lashay Durant OSA - 07/04/2024 10:53 AM EDT ----- Message from Supriya Fernandes MD sent at 07/03/2024 4:23 PM EDT ----- No problem! The radiologist thought MRI would be best (hopefully he can tolerate that, looks like he has a lot of health problems). Lashay- could you see if the MRI possibly could get completed this week or early next week? And thenwe could add him on for Mohs 07/17 at 745 am. ----- Message ----- From: Malaika Guzman PA-C Sent: 07/03/2024 12:28 PM EDT To: Supriya Fernandes MD; DEVORAH Fraser; # Thanks so much Hazel! Really appreciate it. I did place referral but let me know if I can help in any way. Malaika ----- Message ----- From: Supriya Fernandes MD Sent: 07/03/2024 12:24 PM EDT To: Malaika Guzman PA-C; # Thanks for the heads up! I'm out the rest of the week but we'll look and see where we can add him on OREN. In the meantime, I'm going to order a CT that can hopefully get completed this week. Lashay- can you call and let patient know that we are ordering a CT scan and we will call him with adate/time for Mohs surgery after reviewing our schedule and see when he can be added. Also let him know he will have to get his blood drawn at any [facility] lab prior to CT scan (within 48 hours before). Thank you! ----- Message ----- From: Malaika Guzman PA-C Sent: 07/03/2024 8:32 AM EDT To: MD Kyra Matamoros! Sending you this hermila for Mohs. If you look at photos there are several little papules surrounding the plaque. Reviewed with Dr. Wright and not sure if sure part of SCC or ?met in transit? Not sure ifyou would to just Mohs the whole thing or biopsy surrounding papules. Just giving you a heads up. Malaika documented in this encounter Plan of Treatment Upcoming Encounters Date Type Department Care Team (Late st Contact Info) Description 07/17/2024 8:00 AM EDT Office [address]ology, [address] [phone] Perry Tate MD [facility], [place] [phone] 07/24/2024 2:30 PM EDT [facility] [address] [place] [address] Malaika Guzman PA-C [address] [facility] [place] [address] 08/14/2024 11:00 AM EDT Office Visit Nephrology, [facility] [address] Keisha Gunn MD 400 [facility] [address] 08/21/2024 2:00 PM EDT Office Visit [facility] [phone] Fuentes Ashton MD 21 [place] [address] 01/22/2025 1:30 PM EDT PulmDiagnostic Pulmonary Function Lab [facility] [address] [place] [address] [address], [address] [facility] [place] [address] 01/22/2025 2:00 PM EDT Office Visit Pulmonary Medicine [facility] [address] [place] [address] [phone] Dominguez Aguilar MD [address] [place] [address] Scheduled Procedures Name Priority Associated Diagnoses Date/Ti [...] this encounter Medical Devices Implanted Type Area Sales Correspondent Device Identifier Shelf Expiration Date Model / Serial / Lot Mesh Perfix Plug Lg [id number] - [id number] Implanted:Qty: 1 on 02/07/2019 by Jonathan Correia DO at OR [facility] Right: Lelo KEBEDE BARD : MARIE 09/04/2023 [id number] / / [id number] documented as of this encounter Advance Directives Documents on File Type Date Recorded Patient Environmental Programs Manager Expl anation Advance Directives and Living [...] Colón Adult Child Emergency Contact Care Teams Manager Transplant Relationship Specialty Start Date End Date Fuentes Ashton MD 21 [place] [phone] PCP - General Family Medicine 01/30/22 documented as of this encounter
--- OUTSIDE RECORDS SUMMARY | 2024-09-30 18:24 | External Medical Summary | Summary of Care ---
Author Name Unknown Organization [facility] Address [address] [place] [address] Phone [phone] Care Team Providers Care Colorectal Surgeon Name Role Phone Fuentes Ashton MD Primary Care Provider [phone] [phone] Reason for Visit * Evaluate & Treat - Unlimited Visits (Within 30 days (routine)) - Pending Review Specialty Diagnoses / Procedures Referred By Contac t Referred To Contact Radiology Diagnoses Localized swelling, mass and lump, unspecified Procedures Eval & Treat Dari Villegas, [address] [place] [address] Referral ID Status Reason Start Date Expiration Date Visits Requested Visits Authorized [id number] Pending Review Specialty Services Required 05/23/2024 07/22/[phone] Encounter Details Date Type Department Care Team (Latest Contact Info) Description 06/13/2024 10:12 AM EDT - 06/13/2024 11:59 PM EDT Hospital Encounter Radiology, [address] [address] Arrived Discharge Disposition: Home - Self Care Allergies Active Allergy Reactions Criticality Noted Date Comments Aztreonam Hives Medium 10/11/2019 Cephalosporins Rash 05/24/2017 Chlorhexidine Hives,Rash 01/02/2022 Ciprofloxacin Diarrhea Medium 01/28/2015 Iodinated Contrast Media Abdominal pain High 019 Acute kidney failure Levofloxacin Rash Low 07/28/2019 documented as of this encounter (statuses as of 06/14/2024) Medications Medication Sig Dispensed Refills Start Date [...] classification ([facility]) inhale contents of 1 vial ( [...] Powder Breath Activated (ANORO ellipta)Indications :COPD, moderate ([facility]) Inhale 1 Puff by mouth in the [...] as of this encounter (statuses as of 06/14/2024) Active Problems Problem Noted Date Diagnosed Date [...] [place] coronary artery without angina pectoris 05/31/2020 CKD [...] as of this encounter (statuses as of 06/14/2024) Resolved Problems Problem Noted Date Diagnosed Date [...] 05/31/2020 Hypertensive heart disease w [facility] heart failure and stage 5 chronic [...] AMP Hypertensive heart disease w [facility] heart failure and stage 3 chronic [...] as of this encounter (statuses as of 06/14/2024) Immunizations Name Administration Dates Next Due COVID-19 mRNA, LNP-s, No Pre serve, 2-Dose Series ([employer]) 08/15/2021,01/31/2021,01/03/2021 COVID-19, LNP-s, No Preserve , Ruslan-sucrose, Ages 12+ (Pfizer) 03/19/2022 COVID-19, MRNA-LNP, 23-24, P F, 30 MCG/0.3 mL, 12 YRS AND ABOVE, IM (P[employer]ER-Comirnaty) 10/25/2023 Covid-19, Mrna, Lnp-s, Pf, B ivalent, 30 Mcg, IM, 12 yrs and above (Pfizer) 2022 Pneumococcal Conjugate Vacc, 13 Valent (Prevnar) 01/21/2016 Pneumococcal Conjugate Vacci ne, 20-valent ([id number]) 07/19/2023 Pneumococcal Polysaccharide PPV23 (Pneumovax) 01/13/2011 RSV [...] AM EDT Office Visit Dermatology, Ahmet Rowell [place] [address] Malaika Guzman PA-C [address] [place] [address] 07/17/2024 8:00 AM EDT Office Visit Rheumatology, [address] [place] [address] Perry Tate MD [facility], [place] [address] 07/24/2024 2:30 PM EDT Office Visit Dermatology, Ahmet Rowell [address] [place] [address] Malaika Guzman PA-C 27 [place] [address] 08/14/2024 11:00 AM EDT Office Visit Nephrology, [facility] 400 [facility] [place] [address] Keisha Gunn MD 400 [facility] [place] [address] 08/21/2024 2:00 PM EDT Office [facility] [phone] Fuentes Ashton MD 21 [place] [address] 01/22/2025 1:30 PM EDT PulmDiagnostic Pulmonary Function Lab [facility] [address] [place] [address] [address], [address] [place] [address] 01/22/2025 2:00 PM EDT Office Visit Pulmonary Medicine [facility] [address] [place] [phone] Dominguez Aguilar MD [address] [facility] [place] [address] Scheduled Procedures Name Priority Associated Diagnoses Date/Ti [...] this encounter Medical Devices Implanted Type Area Bulk Folder Device Identifier Shelf Expiration Date Model / Serial / Lot Mesh Perfix Plug Lg [id number] - [id number] Implanted:Qty: 1 on 02/07/2019 by Jonathan Correia DO at OR [facility] Right: Groin CR BARD : DAVOL 09/04/2023 [id number] / / [id number] documented as of this encounter Procedures Procedure Name Priority Date/Time Associated Diagnosis Comments US ABDOMEN LIMITED Routine 06/13/2024 10 :31 AM EDT Localized swelling, mass and lump, unspecified documented in this encounter Results * US ABDOMEN LIMITED (06/13/2024 10:31 AM EDT) Anatomical Region Laterality Modality Abdomen, Body Ultrasound 06/13/2024 1:46 PM EDT Impressions 06/13/2024 1:43 PM EDT IMPRESSION: Complex focal lesion as discussed at patient directed location of symptoms. Narrative 06/13/2024 1:43 PM EDT EXAM: US ABDOMEN LIMITED HISTORY: left lower back lump, pt fell 2 weeks ago TECHNIQUE: Targeted real-time scanning is performed focused only on patient directed location of symptoms dorsal aspect pelvis to left of midline. Real-time scanning performed sagittal and transverse planes. Process Machine Operator images presented. COMPARISON: Prior studies including CT abdomen pelvis dated 09/09/2023 FINDINGS: In the patient directed location of symptoms there is a complex ovoid lobulated but well-defined structure. There is no significant internal vascularity. It is predominantly hypoechoic to sonolucent with isoechoic areas of internal echogenicity/septation. This measures approximately 1.9 cm x 1.7 cm x 1.7 cm. Its etiology is nonspecific. Given patient's history of trauma i.e. fall this certainly can reflect hematoma or complicated hematoma. Inflammatory collection can also be considered. Neoplastic etiology thought less likely. Adjacent to this lesion is an increase in the echotexture of the soft tissue. This is nonspecific but could reflect edema or inflammation i.e. cellulitis. Please correlate with clinical exam. In the patient directed location of imaging there is otherwise no ultrasound demonstrable mass, mass effect, fluid collection or cyst. Soft tissue parenchymal planes otherwise maintained without ultrasound evidence of additional architectural asymmetry disruption or distortion. Procedure Note David Chavarria MD - 06/13/2024 EXAM: US ABDOMEN LIMITED HISTORY: left lower back lump, pt fell 2 weeks ago TECHNIQUE: Targeted real-time scanning is performed focused only on patient directedlocation of symptoms dorsal aspect pelvis to left of midline. Real-timescanning performed sagittal and transverse planes. Process Machine Operator imagespresented. COMPARISON: Prior studies including CT abdomen pelvis dated 09/09/2023 FINDINGS: In the patient directed location of symptoms there is a complex ovoidlobulated but well-defined structure. There is no significant internalvascularity. It is predominantly hypoechoic to sonolucent with isoechoicareas of internal echogenicity/septation. This measures approximately 1.9 cm x 1.7 cm x 1.7 cm. Its etiology is nonspecific. Given patient's history of trauma i.e. fallthis certainly can reflect hematoma or complicated hematoma. Inflammatorycollection can also be considered. Neoplastic etiology thought lesslikely. Adjacent to this lesion is an increase in the echotexture of the softtissue. This is nonspecific but could reflect edema or inflammation i.e.cellulitis. Please correlate with clinical exam. In the patient directed location of imaging there is otherwise noultrasound demonstrable mass, mass effect, fluid collection or cyst. Softtissue parenchymal planes otherwise maintained without ultrasound evidenceof additional architectural asymmetry disruption or distortion. IMPRESSION IMPRESSION: Complex focal lesion as discussed at patient directed location ofsymptoms. Dari CARBAJAL RAD ULTRASOUND documented in this encounter Visit Diagnoses Diagnosis Localized swelling, mass and lump, unspecified documented in this encounter Advance Directives Documents on File Type Date Recorded Patient Process Machine Operator Expl anation Advance Directives and [...] verbally by patient or by statute hierarchy) [facility] Adult Child Emergency Contact Care Teams Colorectal Surgeon Relationship Specialty Start Date End Date Fuentes Ashton MD 21 [place] [address] PCP - General Family Medicine 01/30/22 documented as of this encounter
--- OUTSIDE RECORDS SUMMARY | 2024-09-30 18:24 | External Medical Summary | Summary of Care ---
Author Name Unknown Organization [facility] Address [address] [facility] [place] [address] Phone [phone] Care Team Providers Care Certified Nurses' Aide Name Role Phone Fuentes Ashton MD Primary Care Provider +1 -[phone] Reason for Visit * Reason Onset Date Comments Appointment 06/13/2024 Encounter Details Date Type Department Care Team (Late st Contact Info) Description 06/13/2024 [facility] [address] [facility] [address] [place] [address] Rosalba Christina PA-C [address] [facility] [place] [address] [place] [address] Appointment Allergies Active Allergy Reactions Criticality Noted [...] by GOLD 2017 classification ([facility]) inhale contents of 1 vial ( 3 [...] from 2019 Atherosclerotic heart diseas e of [place] coronary [...] mucinous neoplasm) 0 03/09/2018 Overview: MRI 02/23 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 Steroid-induced diabetes [...] mRNA, LNP-s, No Pre serve, 2-Dose Series ([employer]) 08/15/2021,01/31/2021,01/03/2021 COVID-19, LNP-s, No Preserve , Ruslan-sucrose, Ages 12+ (Pfizer) 03/19/2022 COVID-19, MRNA-LNP, 23-24, P F, 30 MCG/0.3 mL, 12 YRS AND ABOVE, IM ([facility]) 10/25/2023 Covid-19, Mrna, Lnp-s, Pf, B ivalent, 30 Mcg, IM, 12 yrs and above (Pfizer) 2022 Pneumococcal Conjugate Vacc, 13 Valent (Prevnar) 01/21/2016 Pneumococcal Conjugate Vacci ne, 20-valent ([id number]) 07/19/2023 Pneumococcal Polysaccharide PPV23 (Pneumovax) 01/13/2011 RSV [...] Telephone Encounter - Arina Nguyen LPN - 06/14/2024 8:01 AM EDT Call to - appt made for 06/27 to check spot and will keep Sept appt for skin check. * Telephone Encounter - Rosalba Christina PA-C - 06/13/2024 12:08 PM EDT Needs derm appt for skin leson on neck. Does have an appt next month. Rosalba Christina PA-C documented in this encounter Plan of Treatment Upcoming Encounters Date Type Department Care Team (Late st Contact Info) Description 06/27/2024 11:40 AM EDT Office Visit Dermatology, [address] [place] [address] [place] [address] Malaika Guzman PA-C [address] [place] [address] 07/17/2024 8:00 AM EDT Office Visit Rheumatology, [address] [place] [phone] Perry Tate MD [address] [place] [address], [place] [address] 07/24/2024 2:30 PM EDT Office Visit Dermatology, Melissa [address] [place] [address] [place] [address] Malaika Guzman PA-C 27 Melissa [place] [address] 08/14/2024 11:00 AM EDT Office Visit Nephrology, [facility] 400 [facility], [place] [address] Keisha Gunn MD 400 [place] [address] 08/21/2024 2:00 PM EDT Office Visit [facility] 21 [place] [phone] Fuentes Ashton MD 21 [place] [address] 01/22/2025 1:30 PM EDT PulmDiagnostic Pulmonary Function Lab [facility] [address] [place] [address] [address] [address], [address] [facility] [place] [address] 01/22/2025 2:00 PM EDT Office Visit Pulmonary Medicine [facility] [place] [address] [place] [address] [phone] Dominguez Aguilar MD [address] [place] [address] [address] Scheduled Procedures Name Priority Associated Diagnoses Date/Ti [...] this encounter Medical Devices Implanted Type Area Plant Buyer Device Identifier Shelf Expiration Date Model / Serial / Lot Mesh Perfix Plug Lg [id number] - [id number] Implanted:Qty: 1 on 02/07/2019 by Jonathan Correia, DO at OR [facility] Right: Groin CR BARD : DAVOL 09/04/2023 [id number] / / [id number] documented as of this encounter Advance Directives Documents on File Type Date Recorded Patient Staffing Program Manager Expl anation Advance Directives and [...] Agents on File Name Relationship Healthcare Agent [facility] Communication Karen Davis Spouse Health Care Repr esentative (appointed verbally by patient or by statute hierarchy) Lula Colón Adult Child Emergency Contact Care Teams Certified Nurses' Aide Relationship Specialty Start Date End Date Fuentes Ashton MD 21 [place] [address] PCP - General Family Medicine 01/30/22 documented as of this encounter
--- OUTSIDE RECORDS SUMMARY | 2024-09-30 18:24 | External Medical Summary | Summary of Care ---
Author Name Unknown Organization [facility] Address [address] [place] [address] Phone [phone] Care Team Providers Care Balcony Worker Name Role Phone Fuentes Ashton MD Primary Care Provider +1 -[phone] Encounter Details Date Type Department Care Team (Late st Contact Info) Description 07/03/2024 Orders Only Radiology, [facility] [address] [place], [place] [phone] Requisition, External Radiology [address] [place] [address] Nontraumatic hematoma of soft tissue* Allergies Active Allergy Reactions Criticality Noted Date [...] Delayed Release (PriLOSEC)Indicatio ns:Gastroesophageal reflux disease without esophagitis,MCC (current) use 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 Take by [...] by GOLD 2017 classification ([facility]) inhale contents of 1 vial ( 3 [...] from 2018 Atherosclerotic heart diseas e of [place] coronary artery without angina pectoris 05/31/2020 CKD [...] chronic kidney disease 08/03/2023 08/03/2023 Atherosclerosis of [place] co ronary artery without angina pectoris 02/01/2023 [...] Cachexia 08/30/2019 05/31/2020 [facility] failure and stage 5 chronic [...] PL and AMP Hy[facility] heart failure and stage 3 chronic [...] mRNA, LNP-s, No Pre serve, 2-Dose Series (XO1) 08/15/2021,01/31/2021,01/03/2021 COVID-19, LNP-s, No Preserve , Ruslan-sucrose, Ages 12+ (Pfizer) 03/19/2022 COVID-19, MRNA-LNP, 23-24, P F, 30 MCG/0.3 mL, 12 YRS AND ABOVE, IM ([facility]) 10/25/2023 Covid-19, Mrna, Lnp-s, Pf, B ivalent, 30 Mcg, IM, 12 yrs and above (Pfizer) 2022 Pneumococcal Conjugate Vacc, 13 Valent (Prevnar) 01/21/2016 Pneumococcal Conjugate Vacci ne, 20-valent ([id number]) 07/19/2023 Pneumococcal Polysaccharide PPV23 (Pneumovax) 01/13/2011 RSV [...] 07/17/2024 8:00 AM EDT Office Visit Rheumatology, [address] [place] [address] Perry Tate MD 2260 [place] [address] 07/24/2024 2:30 PM EDT Office Visit Dermatology, Ahmet Rowell [address] [facility] 140 [place] [address] Malaika Guzman PA-C 27 [place] [phone] 08/14/2024 11:00 AM EDT Office Visit Nephrology, [address] [address] Keisha Gunn MD [address] [place], [place] [address]n[place] [address] 08/21/2024 2:00 PM EDT Office Visit [facility] [place] [phone] Fuentes Ashton MD 21 [facility] [place] [address] 01/22/2025 1:30 PM EDT PulmDiagnostic Pulmonary Function Lab [facility] [address] [place] [address] [address], [address] [place] [address] 01/22/2025 2:00 PM EDT Office Visit Pulmonary Medicine [facility] [address] [facility] [place] [phone] Dominguez Aguilar MD [address] S [facility] [place] [address] Scheduled Orders Name Type Priority Associated Diagnoses Orde r Schedule US ABDOMEN LIMITED Medical Imaging Routine Nontraumatic hematoma of soft tissue Expected: 08/07/2024, Expires: 08/25/2024 Scheduled Procedures Name Priority Associated Diagnoses Date/Ti [...] this encounter Medical Devices Implanted Type Area Polisher Implant Device Identifier Shelf Expiration Date Model / Serial / Lot Mesh Perfix Plug Lg [id number] - [id number] Implanted:Qty: 1 on 02/07/2019 by Jonathan Correia DO at OR [facility] Right: Groin CR BARD : DAVOL 09/04/2023 [id number] / / [id number] documented as of this encounter Visit Diagnoses Diagnosis Nontraumatic hematoma of soft tissue- Primary documented in this encounter Advance Directives Documents on File Type Date Recorded 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
--- OUTSIDE RECORDS SUMMARY | 2024-09-30 18:25 | External Medical Summary ---
Author Name Unknown Address Unknown Organization K01:[facility] - [address] [place] [address] Laboratory Report Ordering Provider Test Date Status JOSELO VIDES 05/25/2024 09:26:32 Final Observation Date Value Abnormality Reference (Units ) Status Uric Acid 05/25/2024 09:26:32 5.7 3.4-7.0 (m g/dL) Final Performing Location LABORATORY C - [address] [place] [address]
--- OUTSIDE RECORDS SUMMARY | 2024-09-30 18:25 | External Medical Summary ---
Author Name Unknown Address Unknown Organization K01:[facility]ATORY [facility] [place] - [address] [place] [address] Laboratory Report Ordering Provider Test Date Status JOSELO VIDES 05/25/2024 09:26:32 Final Observation Date Value Abnormality Reference (Units ) Status WBC, Total 05/25/2024 09:26:32 7.96 4.00-10.80 (K/uL) Final RBC 05/25/2024 09:26:32 3.66 4.50-5.25 (M/uL) Final Hemoglobin 05/25/2024 09:26:32 11.3 Below low normal 14.0-16.8 (g/dL) Final HCT 05/25/2024 09:26:32 37.9 Below low normal 40.0-48.4 (%) Final MCV 05/25/2024 09:26:32 103.6 82.0-99.5 (fL) Final MCH 05/25/2024 09:26:32 30.9 27.0-34.0 (pg) Final MCHC 05/25/2024 09:26:32 29.8 32.0-36.0 (g/dL) Final RDW 05/25/2024 09:26:32 18.7 11.5-15.5 (%) Final Platelets 05/25/2024 09:26:32 128 Below low normal 140-400 (K/uL) Final MPV 05/25/2024 09:26:32 12.9 6.6-11.1 (fL) Final Nucleated erythrocytes/100 leukocytes [Ratio] in Blood by Automated count 05/25/2024 09:26:32 0 <=0 (/100 WBCs) Final Performing Location [facility] - [address] [place] [address]
--- OUTSIDE RECORDS SUMMARY | 2024-09-30 18:25 | External Medical Summary | Summary of Care ---
Author Name Unknown Organization [facility] Address [address] [place] [address] Phone [phone] Care Team Providers Care Marine Structural Designer Name Role Phone Fuentes Ashton MD Primary Care Provider [phone] Reason for Visit * Reason Onset Date Comments Med Request 05/23/2024 Encounter Details Date Type Department Care Team (Late st Contact Info) Description 05/23/2024 Telephone Rheumatology [place] [id number] [place] [address] Perry Tate MD [facility] [employer] [place] [address] Med Request Allergies Active Allergy Reactions Criticality Noted Date Comments Aztreonam Hives Medium 10/11/2019 Cephalosporins Rash 05/24/2017 Chlorhexidine Hives,Rash 01/02/2022 Ciprofloxacin Diarrhea Medium 01/28/2015 Iodinated Contrast Media Abdominal pain High 019 Acute kidney failure Levofloxacin Rash Low 07/28/2019 documented as of this encounter (statuses as of 05/23/2024) Medications Medication Sig Dispensed Refills Start Date [...] Release (PriLOSEC)Indicati ons: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 180 Each 3 4 Active Albuterol Sulfate 108 (90 Base) MCG/ACT Inhalation Aerosol Powder Breath ActivatedIndicatio ns:COPD, moderate (HCC) Inhale 2 Puffs by mouth every 4 hours as needed for Shortness of Breath. 1 Each 5 4 Active Furosemide 20 MG Oral Tablet [...] the morning. 135 Tablet 4 4 Active Allopurinol 100 MG Oral Tablet (Zyloprim) Take 2 Tablets by mouth in the morning. 60 Tablet 6 4 Active Allopurinol 100 MG Oral Tablet (Zyloprim) Take 1.5 (1 and 1/2) Tablets by mouth in the morning. 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 IPMN (intraductal papillary mucinous neoplasm) 0 03/09/2018 Overview: 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 Steroid-induced [...] as of this encounter (statuses as of 05/23/2024) Resolved Problems Problem Noted Date Diagnosed Date [...] chronic kidney disease 08/03/2023 08/03/2023 Atherosclerosis of [place] co ronary artery without angina pectoris 02/01/2023 [...] as of this encounter (statuses as of 05/23/2024) Immunizations Name Administration Dates Next Due COVID-19 mRNA, LNP-s, No Pre serve, 2-Dose Series (User Replay) 08/15/2021,01/31/2021,01/03/2021 COVID-19, LNP-s, No Preserve , Ruslan-sucrose, Ages 12+ (Pfizer) 03/19/2022 COVID-19, MRNA-LNP, 23-24, P F, 30 MCG/0.3 mL, 12 YRS AND ABOVE, IM ([facility]) 10/25/2023 Covid-19, Mrna, Lnp-s, Pf, B ivalent, 30 Mcg, IM, 12 yrs and above (Pfizer) 2022 Pneumococcal Conjugate Vacc, 13 Valent (Prevnar) 01/21/2016 Pneumococcal Conjugate Vacci ne, 20-valent ([id number]) 07/19/2023 Pneumococcal Polysaccharide PPV23 (Pneumovax) 01/13/2011 RSV [...] encounter Miscellaneous Notes * Telephone Encounter - Perry Tate MD - 05/23/2024 1:24 PM EDT filled * Telephone Encounter - Tavares Tejeda OSA - 05/23/2024 10:38 AM EDT Rug Measurer - Patient Related Communication Reason for Call: Refill of unknown: Allopurinol 100 MG Oral Tablet (Zyloprim) [facility] Per patient is taking 100 mg 2 times a day. Would like to have medication ready to be picked up May due to having appointment same day. Please review and advise Thank you DEVORAH Martínez documented in this encounter Plan of Treatment Upcoming Encounters Date Type Department Care Team (Late st Contact Info) Description 07/17/2024 8:00 AM EDT Office Visit Rheumatology, [facility] [address] [facility] [place] [address] Perry Tate MD [facility], [place] [address] 07/24/2024 2:30 PM EDT Office Visit Dermatology, [place] [address] [place] [address] [place] [address] Malaika Guzman PA-C [address] [place] [address] 08/14/2024 11:00 AM EDT Office Visit Nephrology, [facility] [address] [facility] [place] [address] Keisha Gunn [facility] [address] [facility] [address] 08/21/2024 2:00 PM EDT Office Visit [facility] [place] [phone] Fuentes Ashton MD [address] [facility] [place] [address] 01/22/2025 1:30 PM EDT PulmDiagnostic Pulmonary Function Lab [facility] [address] [facility] [place] [address] [address], [address] [place] [address] 01/22/2025 2:00 PM EDT Office Visit Pulmonary Medicine [facility] [address] [place] [phone] Dominguez Aguilar MD [address] [facility] [place] [address] Scheduled Procedures Name Priority Associated Diagnoses Date/Ti me COLONOSCOPY FLEXIBLE PROXIMA L DIAGNOSTIC Recall Diverticulosis of sigmoid colon Health Maintenance Due Date Last Done Comments COVID-19 Vaccine ( season) 2023 2023, 10/25/2023, 2022, Additional history exists *COPD SEVERITY VERIFIED BY PFT 05/21/2024 Influenza Vaccine (FLU shot) (#1) 2024 08/30/2023, 09/23/2022, 09/01/2021, Additional history exists Diabetic Eye Exam 07/19/2024 07/19/2023, , 04/09/2022, Additional history exists Diabetic Foot Exam 07/19/2024 07/19/2023, 0 06/01/2022, 03/14/2019, Additional history exists HbA1c 08/02/2024 01/31/2024, 1112/2022, 05/18/2023, Additional history exists GFR 11/08/2024 05/08/2024, 04/08, 04/10/2024, Additional history exists TSH 01/30/2025 01/31/2024, 01/07, 09/02/2022, Additional history exists Depression Screening 02/06/2025 02/07/2024 Albumin/Creatinine Ratio 03/27/2025 024, 01/31/2024, 05/18/2023, Additional history exists O2 ASSESSMENT COMPLETED IN PAST YEAR FOR COPD 03/31/2025 03/31/2024 DTaP,Tdap,and Td Vaccines (4 - Td or [...] this encounter Medical Devices Implanted Type Area Poleyard Supervisor Device Identifier Shelf Expiration Date Model / Serial / Lot Mesh Perfix Plug Lg [id number] - [id number] Implanted:Qty: 1 on 02/07/2019 by Jonathan Correia, DO at OR [facility] Right: Lelo KEBEDE BARD : MARIE 09/04/2023 [id number] / / [id number] documented as of this encounter Advance Directives Documents on File Type Date Recorded Patient Industrial Order Clerk Expl anation Advance Directives and Living [...] verbally by patient or by statute hierarchy) [facility] Adult Child Emergency Contact Care Teams Marine Structural Designer Relationship Specialty Start Date End Date Fuentes Ashton MD [address] [place] [address] PCP - General Family Medicine 01/30/22 documented as of this encounter
--- OUTSIDE RECORDS SUMMARY | 2024-09-30 18:25 | External Medical Summary ---
Author Name Unknown Address Unknown Organization [id number]:LABORATORY [facility] [place] - [address] [place] [address] Laboratory Report Ordering Provider Test Date Status JOSELO VIDES 06/09/2024 13:11:02 Final Observation Date Value Abnormality Reference (Units ) Status Uric Acid 06/09/2024 13:11:02 5.9 3.4-7.0 (m g/dL) Final Performing Location LABORATORY C - [address] [place] [address]
--- OUTSIDE RECORDS SUMMARY | 2024-09-30 18:25 | External Medical Summary | Summary of Care ---
Author Name Unknown Organization [facility] Address [address] [place] [address] Phone [phone] Care Team Providers Care Child Development Instructor Name Role Phone Fuentes Ashton MD Primary Care Provider [phone] Reason for Visit * Reason Comments Outpatient Testing Encounter Details Date Type Department Care Team (Late st Contact Info) Description 05/25/2024 9:10 AM EDT Laboratory Laboratory, [place] [address] [place] [address] [place], Lab [address] [place] [address] Chronic gout due to renal impairment of multiple sites without tophus Allergies Active Allergy Reactions Criticality Noted Date Comments Aztreonam Hives Medium 10/11/2019 Cephalosporins Rash 05/24/2017 Chlorhexidine Hives,Rash 01/02/2022 Ciprofloxacin Diarrhea Medium 01/28/2015 Iodinated Contrast Media Abdominal pain High 019 Acute kidney failure Levofloxacin Rash Low 07/28/2019 documented as of this encounter (statuses as of 05/25/2024) Medications Medication Sig Dispensed Refills Start Date [...] by GOLD 2017 classification ([facility]) inhale contents of 1 vial ( [...] as of this encounter (statuses as of 05/25/2024) Active Problems Problem Noted Date Diagnosed Date [...] from 2019 Atherosclerotic heart diseas e of [place] coronary artery without angina pectoris 05/31/2020 CKD (chronic kidney disease) stage 4, GFR 15-29 ml/min 07/17/2019 Chronic anticoagulation 04/03/2019 Vitamin D deficiency 11/17/2018 Senile osteoporosis 09/06/2018 Paroxysmal atrial fibrillation 07/08/2018 Last Assessment & Plan: Rate controlled on metoprolol Continue apixaban History of acute tubular necrosis 06/29/2018 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 IPMN (intraductal papillary mucinous neoplasm) 0 03/09/2018 Overview: 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 [...] as of this encounter (statuses as of 05/25/2024) Resolved Problems Problem Noted Date Diagnosed Date [...] as of this encounter (statuses as of 05/25/2024) Immunizations Name Administration Dates Next Due COVID-19 mRNA, LNP-s, No Pre serve, 2-Dose Series (Keepstream) 08/15/2021,01/31/2021,01/03/2021 COVID-19, LNP-s, No Preserve , Ruslan-sucrose, Ages 12+ (Pfizer) 03/19/2022 COVID-19, MRNA-LNP, 23-24, P F, 30 MCG/0.3 mL, 12 YRS AND ABOVE, IM ([facility]) 10/25/2023 Covid-19, Mrna, Lnp-s, Pf, B ivalent, 30 Mcg, IM, 12 yrs and above (Pfizer) 2022 Pneumococcal Conjugate Vacc, 13 Valent (Prevnar) 01/21/2016 Pneumococcal Conjugate Vacci ne, 20-valent ([id number]) 07/19/2023 Pneumococcal Polysaccharide PPV23 (Pneumovax) 01/13/2011 RSV [...] 07/17/2024 8:00 AM EDT Office Visit Rheumatology, [address] [address] Perry Tate MD [facility] [place] [address] 07/24/2024 2:30 PM EDT Office Visit Dermatology, [facility] [address] [facility] 140 [place] [address] Malaika Guzman PA-C 27 [facility] [address] 08/14/2024 11:00 AM EDT Office Visit Nephrology, [address] [address] Keisha Gunn MD [address] [place] [address] [place] [address] 08/21/2024 2:00 PM EDT Office Visit Family [facility] 21 [place] [phone] Fuentes Ashton MD [address] [place] [address] 01/22/2025 1:30 PM EDT PulmDiagnostic Pulmonary Function Lab [facility] [address] [place] [address] [address], [address] [place] [address] 01/22/2025 2:00 PM EDT Office Visit Pulmonary Medicine [facility] [address] [place] [phone] Dominguez Aguilar MD [address] [place] [address] Pending Results Name Type Priority Associated Diagnoses Date /Time URIC ACID Lab Routine Chronic gout due to renal impairment of multiple sites without tophus 05/25/2024 9:26 AM EDT CBC WITH WBC DIFFERENTIAL Lab Routine Chronic gout due to renal impairment of multiple sites without tophus 05/25/2024 9:26 AM EDT COMPREHENSIVE METABOLIC PANEL Lab Routine Chronic gout due to renal impairment of multiple sites without tophus 05/25/2024 9:26 AM EDT CBC Lab Routine Chronic gout due to renal impairment of multiple sites without tophus 05/25/2024 9:26 AM EDT DIFFERENTIAL, AUTOMATED Lab Routine Chronic gout due to renal impairment of multiple sites without tophus 05/25/2024 9:26 AM EDT Scheduled Procedures Name Priority Associated [...] 01/31/2024, 12/2022, 05/18/2023, Additional history exists GFR 11/08/2024 05/08/2024, [...] this encounter Medical Devices Implanted Type Area Education Technician Device Identifier Shelf Expiration Date Model / Serial / Lot Mesh Perfix Plug Lg [id number] - [id number] Implanted:Qty: 1 on 02/07/2019 by Jonathan Correia DO at OR [facility] Right: Groin CR BARD : DAVOL 09/04/2023 [id number] / / [id number] documented as of this encounter Visit Diagnoses Diagnosis 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
--- OUTSIDE RECORDS SUMMARY | 2024-09-30 18:25 | External Medical Summary ---
Author Name Unknown Address Unknown Organization K01:LABORATORY [facility] [place] - [address] [facility] [place] [address] Laboratory Report Ordering Provider Test Date Status JOSELO VIDES 06/09/2024 13:11:02 Final Observation Date Value Abnormality Reference (Units ) Status BUN 06/09/2024 13:11:02 43 Above high normal 6-20 (mg/dL) Final Creatinine 06/09/2024 13:11:02 3.1 Above high normal 0.6-1.2 (mg/dL) Final Glomerular filtration rate/1.73 sq M.predicted [Volume Rate/Area] in Serum, Plasma or Blood by Creatinine-based formula (CKD-EPI) 06/09/2024 13:11:02 20 Below low normal >=60 (mL/min) Final eGFR is calculated based on the CKD-EPI 2020 equation. Sodium 06/09/2024 13:11:02 136 135-146 (m mol/L) Final Potassium 06/09/2024 13:11:02 4.8 3.5-5.1 (m mol/L) Final Cl 06/09/2024 13:11:02 100 98-107 (mm ol/L) Final CO2 06/09/2024 13:11:02 26 22-32 (mmo l/L) Final Anion gap 06/09/2024 13:11:02 10 7-15 (mmol /L) Final Glucose 06/09/2024 13:11:02 118 70-120 (mg /dL) Final Albumin 06/09/2024 13:11:02 4.3 3.8-5.0 (g /dL) Final AST (Aspartate aminotransferase) 06/09/2024 13:11:02 32 10-50 (U/L) Final Alk Phos 06/09/2024 13:11:02 46 35-130 (U/ L) Final Bilirubin, Total 06/09/2024 13:11:02 0.6 <=1 .2 (mg/dL) Final Calcium 06/09/2024 13:11:02 9.9 8.4-10.2 ( mg/dL) Final Protein 06/09/2024 13:11:02 7.0 6.0-8.3 (g /dL) Final ALT (Alanine aminotransferase) 06/09/2024 13:11:02 16 10-50 (U/L) Final Performing Location LABORATORY [facility] [place] - [address] [facility] [address]
--- OUTSIDE RECORDS SUMMARY | 2024-09-30 18:25 | External Medical Summary ---
Author Name Unknown Address Unknown Organization K01:[facility] - [address] [place] [address] Laboratory Report Ordering Provider Test Date Status GLO PINEDA 06/09/2024 13:11:02 Final Observation Date Value Abnormality Reference (Units ) Status Phosphate 06/09/2024 13:11:02 3.0 2.5-4.8 (m g/dL) Final Performing Location [facility] - [address] [place] [address]
--- OUTSIDE RECORDS SUMMARY | 2024-09-30 18:25 | External Medical Summary ---
Author Name Unknown Address Unknown Organization K01:[facility] [place] [address] [place] [address] Laboratory Report Ordering Provider Test Date Status JOSELO VIDES 06/09/2024 13:11:02 Final Observation Date Value Abnormality Reference (Units ) Status SYNC LEUKOCYTES IN BLOOD BY AUTOMATED COUNT 06/09/2024 13:11:02 7.26 4.00-10.80 (K/uL) Final Segs 06/09/2024 13:11:02 80.5 Above high normal 40.0-75.0 (%) Final Lymphs % 06/09/2024 13:11:02 12.9 Below low normal 18.0-42.0 (%) Final Monos 06/09/2024 13:11:02 4.1 1.0-11.0 (%) Final Eosinophils 06/09/2024 13:11:02 1.1 0.0-6.0 (%) Final Basos 06/09/2024 13:11:02 0.3 0.0-2.0 (%) Final Immature Granulocyte, Percent 06/09/2024 13:11:02 1.1 0.0-2.0 (%) Final Absolute Segs 06/09/2024 13:11:02 5.84 1.80-7.70 (K/uL) Final Lymphs, absolute 06/09/2024 13:11:02 0.94 Below low normal 1.00-4.80 (K/ul) Final Monos, Abs 06/09/2024 13:11:02 0.30 0.00-1.10 (K/uL) Final Eos, Abs 06/09/2024 13:11:02 0.08 0.00-0.70 (K/uL) Final Basos, Abs 06/09/2024 13:11:02 0.02 0.00-0.20 (K/uL) Final Immature Granulocytes, Number 06/09/2024 13:11:02 0.08 0.00-0.20 (K/uL) Final Performing Location [facility] [place] [facility] [place] [address]
--- OUTSIDE RECORDS SUMMARY | 2024-09-30 18:25 | External Medical Summary ---
Author Name Unknown Address Unknown Organization K01:LABORATORY [facility] [place] - [address] [facility] [address] Laboratory Report Ordering Provider Test Date Status JOSELO VIDES 05/25/2024 09:26:32 Final Observation Date Value Abnormality Reference (Units ) Status SYNC LEUKOCYTES IN BLOOD BY AUTOMATED COUNT 05/25/2024 09:26:32 7.96 4.00-10.80 (K/uL) Final Segs 05/25/2024 09:26:32 78.0 Above high normal 40.0-75.0 (%) Final Lymphs % 05/25/2024 09:26:32 12.6 Below low normal 18.0-42.0 (%) Final Monos 05/25/2024 09:26:32 4.8 1.0-11.0 (%) Final Eosinophils 05/25/2024 09:26:32 2.3 0.0-6.0 (%) Final Basos 05/25/2024 09:26:32 0.4 0.0-2.0 (%) Final Immature Granulocyte, Percent 05/25/2024 09:26:32 1.9 0.0-2.0 (%) Final Absolute Segs 05/25/2024 09:26:32 6.22 1.80-7.70 (K/uL) Final Lymphs, absolute 05/25/2024 09:26:32 1.00 1.00-4.80 (K/ul) Final Monos, Abs 05/25/2024 09:26:32 0.38 0.00-1.10 (K/uL) Final Eos, Abs 05/25/2024 09:26:32 0.18 0.00-0.70 (K/uL) Final Basos, Abs 05/25/2024 09:26:32 0.03 0.00-0.20 (K/uL) Final Immature Granulocytes, Number 05/25/2024 09:26:32 0.15 0.00-0.20 (K/uL) Final Performing Location LABORATORY [facility] [place] - [facility] [place] [address]
--- OUTSIDE RECORDS SUMMARY | 2024-09-30 18:25 | External Medical Summary ---
Author Name Unknown Address Unknown Organization K01:LABORATORY [facility] [place] - [address] [place] [address] Laboratory Report Ordering Provider Test Date Status MAHOGANYJOSELO 05/25/2024 09:26:32 Final Observation Date Value Abnormality Reference (Units ) Status BUN 05/25/2024 09:26:32 43 Above high normal 6-20 (mg/dL) Final Creatinine 05/25/2024 09:26:32 3.3 Above high normal 0.6-1.2 (mg/dL) Final Glomerular filtration rate/1.73 sq M.predicted [Volume Rate/Area] in Serum, Plasma or Blood by Creatinine-based formula (CKD-EPI) 05/25/2024 09:26:32 18 Below low normal >=60 (mL/min) Final eGFR is calculated based on the CKD-EPI 2020 equation. Sodium 05/25/2024 09:26:32 142 135-146 (m mol/L) Final Potassium 05/25/2024 09:26:32 4.0 3.5-5.1 (m mol/L) Final Cl 05/25/2024 09:26:32 102 98-107 (mm ol/L) Final CO2 05/25/2024 09:26:32 27 22-32 (mmo l/L) Final Anion gap 05/25/2024 09:26:32 13 7-15 (mmol /L) Final Glucose 05/25/2024 09:26:32 187 Above high normal 70 -120 (mg/dL) Final Albumin 05/25/2024 09:26:32 4.1 3.8-5.0 (g /dL) Final AST (Aspartate aminotransferase) 05/25/2024 09:26:32 28 10-50 (U/L) Fin al Alk Phos 05/25/2024 09:26:32 47 35-130 (U/ L) Final Bilirubin, Total 05/25/2024 09:26:32 0.3 <=1 .2 (mg/dL) Final Calcium 05/25/2024 09:26:32 9.8 8.4-10.2 ( mg/dL) Final Protein 05/25/2024 09:26:32 6.4 6.0-8.3 (g /dL) Final ALT (Alanine aminotransferase) 05/25/2024 09:26:32 15 10-50 (U/L) Everardo diaz Performing Location LABORATORY [facility] [place] - [address] [facility] [address]
--- OUTSIDE RECORDS SUMMARY | 2024-09-30 18:25 | External Medical Summary | Summary of Care ---
Author Name Unknown Organization [facility] Address [address] [place] [address] Phone [phone] Care Team Providers Care Coding Specialist Home Health Name Role Phone Fuentes Ashton MD Primary Care Provider [phone] Reason for Visit * Reason Onset Date Comments Test Results 05/23/2024 Encounter Details Date Type Department Care Team (Late st Contact Info) Description 05/23/2024 Telephone Nephrology, [address] [address] Rsolyn Moulton MD [address] [place] [address] Test Results Allergies Active Allergy Reactions [...] Release (PriLOSEC)Indicati ons:Gastroesophage al reflux disease without esophagitis,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 30 Capsule 5 4 Active Calcium 500-100 MG-UNIT Oral Tablet Chewable 1 tablet daily 30 Tablet 2 05/23/20 Discontinu ed(Patient preference /discontin uation) Allopurinol 100 MG Oral Tablet (Zyloprim) Take 1.5 (1 and 1/2) Tablets by mouth in the morning. 45 Tablet 5 4 05/23/20 24 Discontinu ed(Refill) Calcitriol 0.5 MCG Oral Capsule (Rocaltrol) Take 1 Capsule by mouth in the morning. 90 Capsule 3 4 05/23/20 24 Discontinu ed(Medicat ion/Dose Changed) documented as of this encounter (statuses as [...] from 2018 Atherosclerotic heart diseas e of [place] coronary artery without angina pectoris 05/31/2020 CKD [...] chronic kidney disease 08/03/2023 08/03/2023 Atherosclerosis of [place] co ronary artery without angina pectoris 02/01/2023 [...] Cachexia 08/30/2019 05/31/2020 Hypertensive heart disease w [facility] heart failure and stage 5 chronic [...] PL and AMP Hypertensive heart disease w [facility] heart failure and stage 3 chronic [...] mRNA, LNP-s, No Pre serve, 2-Dose Series ([employer]) 08/15/2021,01/31/2021,01/03/2021 COVID-19, LNP-s, No Preserve , Ruslan-sucrose, Ages 12+ (Pfizer) 03/19/2022 COVID-19, MRNA-LNP, 23-24, P F, 30 MCG/0.3 mL, 12 YRS AND ABOVE, IM ([facility]) 10/25/2023 Covid-19, Mrna, Lnp-s, Pf, B ivalent, 30 Mcg, IM, 12 yrs and above ([employer]) 2022 Pneumococcal Conjugate Vacc, 13 Valent (Prevnar) 01/21/2016 Pneumococcal Conjugate Vacci ne, 20-valent ([id number]) 07/19/2023 Pneumococcal Polysaccharide PPV23 (Pneumovax) 01/13/2011 RSV [...] Telephone Encounter - Deena Jose RN - 05/23/2024 10:02 AM EDT TE with pt's regarding medication changes and repeat labs. RX pended for signature and lab ordered. * Telephone Encounter - Deena Jose RN - 05/23/2024 9:59 AM EDT ----- Message from Roslyn Moulton MD sent at 05/22/2024 11:12 AM EDT ----- Stop the calcium chewable tablets and decrease calcitriol to 0.25 mcg daily. Repeat BMP in 1 month's time documented in this encounter Plan of Treatment Upcoming Encounters Date Type Department Care Team (Late st Contact Info) Description 07/17/2024 8:00 AM EDT Office Visit Rheumatology, [address] [place] [address] Perry Tate MD [address] [place] [address] 07/24/2024 2:30 PM EDT [facility] 27 [facility] [address] [place] [address] Malaika Guzman PA-C 27 [place] [address] 08/14/2024 11:00 AM EDT Office Visit Nephrology, [address] [address] Keisha Gunn MD [address] [place] [address] 08/21/2024 2:00 PM EDT Office Visit [facility] 21 [facility] [phone] Fuentes Ashton MD 21 [place] [address] 01/22/2025 1:30 PM EDT PulmDiagnostic Pulmonary Function Lab [facility] [address] [address] [address], [address] [facility] [place] [address] 01/22/2025 2:00 PM EDT Office Visit Pulmonary Medicine [facility] [address] [phone] Dominguez Aguilar MD [address] [address] Scheduled Orders Name Type Priority Associated Diagnoses Orde r Schedule BASIC METABOLIC PANEL Lab Routine Renal osteodystrophy Expected: 06/23/2024 (Approximate), Expires: 05/23/2025 Scheduled Procedures Name Priority Associated Diagnoses Date/Ti [...] this encounter Medical Devices Implanted Type Area Gas Pumper Device Identifier Shelf Expiration Date Model / Serial / Lot Mesh Perfix Plug Lg [id number] - [id number] Implanted:Qty: 1 on 02/07/2019 by Jonathan Correia DO at OR [facility] Right: Lelo KEBEDE BARD : MARIE 09/04/2023 [id number] / / [id number] documented as of this encounter Visit Diagnoses Diagnosis Renal osteodystrophy- Primary documented in this encounter Advance Directives Documents on File Type Date Recorded Patient Knobber Expl anation Advance Directives and Living Will [...] Taylor Adult Child Emergency Contact Care Teams Coding Specialist Home Health Relationship Specialty Start Date End Date Fuentes Ashton MD [address] [phone] PCP - General Family Medicine 01/30/22 documented as of this encounter
--- OUTSIDE RECORDS SUMMARY | 2024-09-30 18:25 | External Medical Summary ---
Author Name Unknown Address Unknown Organization K01:LABORATORY [facility] - [address] [place] [address] Laboratory Report Ordering Provider Test Date Status JOSELO VIDES 06/09/2024 13:11:02 Final Observation Date Value Abnormality Reference (Units ) Status WBC, Total 06/09/2024 13:11:02 7.26 4.00-10.80 (K/uL) Final RBC 06/09/2024 13:11:02 3.83 4.50-5.25 (M/uL) Final Hemoglobin 06/09/2024 13:11:02 12.1 Below low normal 14.0-16.8 (g/dL) Final HCT 06/09/2024 13:11:02 39.7 Below low normal 40.0-48.4 (%) Final MCV 06/09/2024 13:11:02 103.7 82.0-99.5 (fL) Final MCH 06/09/2024 13:11:02 31.6 27.0-34.0 (pg) Final MCHC 06/09/2024 13:11:02 30.5 32.0-36.0 (g/dL) Final RDW 06/09/2024 13:11:02 17.0 11.5-15.5 (%) Final Platelets 06/09/2024 13:11:02 136 Below low normal 140-400 (K/uL) Final MPV 06/09/2024 13:11:02 12.8 6.6-11.1 (fL) Final Nucleated erythrocytes/100 leukocytes [Ratio] in Blood by Automated count 06/09/2024 13:11:02 0 <=0 (/100 WBCs) Final Performing Location LABORATORY [facility] - [address] [place] [address]
--- OUTSIDE RECORDS SUMMARY | 2024-09-30 18:25 | External Medical Summary | Summary of Care ---
Author Name Unknown Organization [facility] Address [address] [facility] [place] [address] Phone [phone] Care Team Providers Care Cathead Operator Name Role Phone Fuentes Ashton MD Primary Care Provider [phone] Reason for Visit * Reason Comments Outpatient Testing Encounter Details Date Type Department Care Team (Late st Contact Info) Description 06/09/2024 12:50 PM EDT Laboratory Laboratory, [place] [address] [place] [address] [place], Lab [address] [place] [address] Age-related osteoporosis without current pathological fracture*; Testicular hypofunction; Chronic gout due to renal impairment of multiple sites without tophus Allergies Active Allergy Reactions Criticality Noted Date Comments Aztreonam Hives Medium 10/11/2019 Cephalosporins Rash 05/24/2017 Chlorhexidine Hives,Rash 01/02/2022 Ciprofloxacin Diarrhea Medium 01/28/2015 Iodinated Contrast Media Abdominal pain High 019 Acute kidney failure Levofloxacin Rash Low 07/28/2019 documented as of this encounter (statuses as of 06/09/2024) Medications Medication Sig Dispensed Refills Start Date [...] (PriLOSEC)Indicatio ns:Gastroesophageal reflux disease without esophagitis,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) use 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 Take by [...] Powder Breath Activated (ANORO ellipta)Indications :COPD, moderate ([facility]) Inhale 1 Puff by mouth in the [...] as of this encounter (statuses as of 06/09/2024) Active Problems Problem Noted Date Diagnosed Date [...] from 2018 Atherosclerotic heart diseas e of [place] coronary artery without angina pectoris 05/31/2020 CKD [...] as of this encounter (statuses as of 06/09/2024) Resolved Problems Problem Noted Date Diagnosed Date [...] chronic kidney disease 08/03/2023 08/03/2023 Atherosclerosis of [place] co ronary artery without angina pectoris 02/01/2023 [...] as of this encounter (statuses as of 06/09/2024) Immunizations Name Administration Dates Next Due COVID-19 mRNA, LNP-s, No Pre serve, 2-Dose Series ([employer]) 08/15/2021,01/31/2021,01/03/2021 COVID-19, LNP-s, No Preserve , Ruslan-sucrose, Ages 12+ ([employer]) 03/19/2022 COVID-19, MRNA-LNP, 23-24, P F, 30 MCG/0.3 mL, 12 YRS AND ABOVE, IM ([employer]) 10/25/2023 Covid-19, Mrna, Lnp-s, Pf, B ivalent, 30 Mcg, IM, 12 yrs and above (Pfizer) 2022 Pneumococcal Conjugate Vacc, 13 Valent (Prevnar) 01/21/2016 Pneumococcal Conjugate Vacci ne, 20-valent ([id number]) 07/19/2023 Pneumococcal Polysaccharide PPV23 (Pneumovax) 01/13/2011 RSV [...] Team (Late st Contact Info) Description 06/13/2024 10:30 AM EDT Appointment Radiology, [address] [place] [address] 07/17/2024 8:00 AM EDT Office Visit Rheumatology, [address] [address] Perry Tate MD [facility] [place] [address] 07/24/2024 2:30 PM EDT [facility] [address] [place] [address] Malaika Guzman PA-C 27 Melissa [facility] [place] [address] 08/14/2024 11:00 AM EDT Office Visit Nephrology, [address] [address] Keisha Gunn MD [address] [place], [place] [address] [address] 08/21/2024 2:00 PM EDT Office Visit Family [facility], [place] [address] [place] [phone] Fuentes Ashton MD [address] [place] [address] 01/22/2025 1:30 PM EDT PulmDiagnostic Pulmonary Function Lab [facility] [place] [address] [address] [address], [address] [place] [address] 01/22/2025 2:00 PM EDT Office Visit Pulmonary Medicine [facility] Dolan [address] [phone] Dominguez Aguilar MD [address] [place] [address] Pending Results Name Type Priority Associated Diagnoses Date /Time PHOSPHORUS Lab Routine Age-related osteoporosis without current pathological fracture Testicular hypofunction 06/09/2024 1:11 PM EDT PTH Lab Routine Age-related osteoporosis without current pathological fracture Testicular hypofunction 06/09/2024 1:11 PM EDT URIC ACID Lab Routine Chronic gout due to renal impairment of multiple sites without tophus 06/09/2024 1:11 PM EDT CBC WITH WBC DIFFERENTIAL Lab Routine Chronic gout due to renal impairment of multiple sites without tophus 06/09/2024 1:11 PM EDT COMPREHENSIVE METABOLIC PANEL Lab Routine Chronic gout due to renal impairment of multiple sites without tophus 06/09/2024 1:11 PM EDT CBC Lab Routine Chronic gout due to renal impairment of multiple sites without tophus 06/09/2024 1:11 PM EDT DIFFERENTIAL, AUTOMATED Lab Routine Chronic gout due to renal impairment of multiple sites without tophus 06/09/2024 1:11 PM EDT Scheduled Orders Name Type Priority Associated Diagnoses Orde r Schedule PHOSPHORUS Lab Routine Age-related osteoporosis without current pathological fracture Testicular hypofunction Expected: 06/09/2024 (Approximate), Expires: 06/11/2025 PTH Lab Routine Age-related osteoporosis without current pathological fracture Testicular hypofunction Expected: 06/09/2024 (Approximate), Expires: 06/11/2025 Scheduled Procedures Name Priority Associated Diagnoses Date/Ti [...] 11/0 12/2022, 05/18/2023, Additional history exists GFR 11/25/2024 05/25/2024, 07/0 11/2023, 04/24/2024, Additional history exists TSH 01/30/2025 01/31/2024, 03/2 03/2024, 09/02/2022, Additional history exists Depression Screening [...] this encounter Medical Devices Implanted Type Area Liquid Yeast Supervisor Device Identifier Shelf Expiration Date Model / Serial / Lot Mesh Perfix Plug Lg [id number] - [id number] Implanted:Qty: 1 on 02/07/2019 by Jonathan Correia DO at OR [facility] Right: Groin CR BARD : DAVOL 09/04/2023 [id number] / / [id number] documented as of this encounter Visit Diagnoses Diagnosis Age-related osteoporosis without current pathological fracture- Primary Senile osteoporosis Testicular hypofunction Other testicular 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
--- OUTSIDE RECORDS SUMMARY | 2024-09-30 18:25 | External Medical Summary ---
Author Name Unknown Address Unknown Organization K01:LABORATORY [facility] - [address] [place] [address] Laboratory Report Ordering Provider Test Date Status GLO PINEDA 06/09/2024 13:11:02 Final Observation Date Value Abnormality Reference (Units ) Status Parathyrin.intact [Mass/volume] in Serum or Plasma 06/09/2024 13:11:02 19 15-65 (pg/mL) Final Performing Location LABORATORY [facility] - [address] [place] [address]
--- OUTSIDE RECORDS SUMMARY | 2024-09-30 18:25 | External Medical Summary | Summary of Care ---
Author Name Unknown Organization [facility] Address [address] [place] [address] Phone [phone] Care Team Providers Care Draw Hand Name Role Phone Fuentes Ashton MD Primary Care Provider [phone] Encounter Details Date Type Department Care Team (Late st Contact Info) Description 06/05/2024 Orders Only Radiology, [facility] [address] [place], [place] [id number] Requisition, External Radiology [address] [place] [address] Localized swelling, mass and lump, unspecified* Allergies Active Allergy Reactions Criticality Noted Date Comments Aztreonam Hives Medium 10/11/2019 Cephalosporins Rash 05/24/2017 Chlorhexidine Hives,Rash 01/02/2022 Ciprofloxacin Diarrhea Medium 01/28/2015 Iodinated Contrast Media Abdominal pain High 019 Acute kidney failure Levofloxacin Rash Low 07/28/2019 documented as of this encounter (statuses as of 06/05/2024) Medications Medication Sig Dispensed Refills Start Date [...] as of this encounter (statuses as of 06/05/2024) Active Problems Problem Noted Date Diagnosed Date [...] from 2019 Atherosclerotic heart diseas e of [place] coronary artery without angina pectoris 05/31/2020 CKD [...] as of this encounter (statuses as of 06/05/2024) Resolved Problems Problem Noted Date Diagnosed Date [...] chronic kidney disease 08/03/2023 08/03/2023 Atherosclerosis of [place] co ronary artery without angina pectoris 02/01/2023 [...] as of this encounter (statuses as of 06/05/2024) Immunizations Name Administration Dates Next Due COVID-19 mRNA, LNP-s, No Pre serve, 2-Dose Series ([employer]) 08/15/2021,01/31/2021,01/03/2021 COVID-19, LNP-s, No Preserve , Ruslan-sucrose, Ages 12+ (Pfizer) 03/19/2022 COVID-19, MRNA-LNP, 23-24, P F, 30 MCG/0.3 mL, 12 YRS AND ABOVE, IM (PFIZER-Comirnaty) 10/25/2023 Covid-19, Mrna, Lnp-s, Pf, B ivalent, 30 Mcg, IM, 12 yrs and above ([employer]) 2022 Pneumococcal Conjugate Vacc, 13 Valent (Prevnar) 01/21/2016 Pneumococcal Conjugate Vacci ne, 20-valent ([id number]) 07/19/2023 Pneumococcal Polysaccharide PPV23 (Pneumovax) 01/13/2011 RSV [...] No 01/31/2024 Does the household have a [facility] hospital[facility] source of income? (Household - for [...] 07/17/2024 8:00 AM EDT Office Visit Rheumatology, [address] [phone] Perry Tate MD [facility], [place] [address] 07/24/2024 2:30 PM EDT Office Visit Dermatology, [place] [address] [place] [address] Malaika Guzman PA-C 27 [place] [address] 08/14/2024 11:00 AM EDT Office Visit Nephrology, [address] [address] Keisha Gunn MD [address] [place] [address] [place] [address] 08/21/2024 2:00 PM EDT Office Visit Family [facility] 21 [facility] [place] [phone] Fuentes Ashton MD 21 [facility] [place] [address] 01/22/2025 1:30 PM EDT PulmDiagnostic Pulmonary Function Lab [facility] D[facility] Ahmet [address] [address] [address], [address] [place] [address] 01/22/2025 2:00 PM EDT Office Visit Pulmonary Medicine [facility] Dolan [address] [place] [phone] Dominguez Aguilar MD [address] [place] [address] Scheduled Orders Name Type Priority Associated Diagnoses Orde r Schedule US ABDOMEN LIMITED Medical Imaging Routine Localized swelling, mass and lump, unspecified Expected: 06/06/2024, Expires: 07/22/2024 Scheduled Procedures Name Priority Associated Diagnoses Date/Ti [...] 05/18/2023, Additional history exists GFR 11/25/2024 05/25/2024, 070 11/2023, 04/24/2024, Additional history exists TSH 01/30/2025 01/31/2024, 01/07, [...] this encounter Medical Devices Implanted Type Area Print Production Associate Device Identifier Shelf Expiration Date Model / Serial / Lot Mesh Perfix Plug Lg [id number] - [id number] Implanted:Qty: 1 on 02/07/2019 by Jonathan Correia DO at OR [facility] Right: Groin CR BARD : DAVOL 09/04/2023 [id number] / / [id number] documented as of this encounter Visit Diagnoses Diagnosis Localized swelling, mass and lump, unspecified- Primary documented in this encounter Advance Directives Documents on File Type Date Recorded Patient Manager Quality Compliance Expl anation Advance Directives and Living Will [...] verbally by patient or by statute hierarchy) [facility] Adult Child Emergency Contact Care Teams Draw Hand Relationship Specialty Start Date End Date Fuentes Ashton MD [address] [phone] PCP - General Family Medicine 01/30/22 documented as of this encounter
--- OUTSIDE RECORDS SUMMARY | 2024-09-30 18:25 | External Medical Summary | Summary of Care ---
Author Name Unknown Organization [facility] Address [address] [facility] [place] [address] Phone [phone] Care Team Providers Care As[facility] Name Role Phone Fuentes Ashton MD Primary Care Provider [phone] Reason for Visit * Reason Comments Rash Lumpy open area on l eft side of neck. Denies itch, noticed lump in November 2023. Encounter Details Date Type Department Care Team (Latest Contact Info) Description 06/13/2024 11:15 AM EDT [facility], [place] [address] [facility] [address] [place] [address] Rosalba Christina PA-C [address] [facility] [address] [place] [address] Skin lesion of neck* Allergies Active Allergy Reactions Criticality Noted Date Comments Aztreonam Hives Medium 10/11/2019 Cephalosporins Rash 05/24/2017 Chlorhexidine Hives,Rash 01/02/2022 Ciprofloxacin Diarrhea Medium 01/28/2015 Iodinated Contrast Media Abdominal pain High 019 Acute kidney failure Levofloxacin Rash Low 07/28/2019 documented as of this encounter (statuses as of 06/13/2024) Medications Medication Sig Dispensed Refills Start Date [...] Delayed Release (PriLOSEC)Indicatio ns:Gastroesophageal reflux disease without esophagitis,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) use 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 Take by [...] group C, by GOLD 2017 classification ([facility]) inhale contents of 1 vial ( [...] as of this encounter (statuses as of 06/13/2024) Active Problems Problem Noted Date Diagnosed Date [...] from 2019 Atherosclerotic heart diseas e of [place] coronary artery without angina pectoris 05/31/2020 CKD [...] as of this encounter (statuses as of 06/13/2024) Resolved Problems Problem Noted Date Diagnosed Date [...] chronic kidney disease 08/03/2023 08/03/2023 Atherosclerosis of [place] co ronary artery without angina pectoris 02/01/2023 [...] as of this encounter (statuses as of 06/13/2024) Immunizations Name Administration Dates Next Due COVID-19 mRNA, LNP-s, No Pre serve, 2-Dose Series (Xeneta) 08/15/2021,01/31/2021,01/03/2021 COVID-19, LNP-s, No Preserve , Ruslan-sucrose, Ages 12+ (Xeneta) 03/19/2022 COVID-19, MRNA-LNP, 23-24, P F, 30 MCG/0.3 mL, 12 YRS AND ABOVE, IM (PFIZER-Comirnaty) 10/25/2023 Covid-19, Mrna, Lnp-s, Pf, B ivalent, 30 Mcg, IM, 12 yrs and above (Pfizer) 2022 Pneumococcal Conjugate Vacc, 13 Valent (Prevnar) 01/21/2016 Pneumococcal Conjugate Vacci ne, 20-valent ([id number]) 07/19/2023 Pneumococcal Polysaccharide PPV23 (Pneumovax) 01/13/2011 RSV [...] Sign Reading Time Taken Comments Blood Pressure 128/62 06/13/2024 11:44 AM EDT Pulse 64 06/13/2024 11:44 AM EDT Temperature 36.6 C (97.9 F) 06/13/2024 11:44 AM E DT Respiratory Rate 20 06/13/2024 11:44 AM EDT Oxygen Saturation 95% 06/13/2024 11:44 AM EDT Inhaled Oxygen Concentration - - Weight 67.6 kg (149 lb) 06/13/2024 11:44 AM EDT Height 170.2 cm (5' 7") 06/13/2024 11:44 AM EDT Body Mass Index 23.34 06/13/2024 11:44 AM EDT documented in this [...] No 03/18/2024 documented as of this encounter Patient Instructions * Patient Instructions* Rosalba Christina PA-C - 06/13/2024 12:03 PM EDT Rest Increase fluids. Keep area clean and dry. Gently cleanse the area twice daily with warm soapy water. Apply bacitracin and bandaid. Watch for any signs of infection. Follow up with dermatology for skin biopsy documented in this encounter Progress Notes * Rosalba Christina PA-C - 06/13/2024 11:53 AM EDT SUBJECTIVE: Kennedy Davis is a 78 year old male who is here to be evaluated for skin concern. Symptoms include Type of skin concern is painful, bumps on the side of neck Exposure to No known exposures and No recent travel, immunizations or new medication Rash condition is worsening Any recent exposure to other - None Patient denies other symptoms The symptoms have been present for 1 month(s) and are gradually worsening. Fevers have been absent. Current Outpatient Medications Medication Sig Dispense Refill [...] Take by mouth 1 Tablet daily . Albuterol Sulfate (2.5 MG/3ML) 0.083% Inhalation Nebulization [...] for Shortness of Breath. 1 Each 5 Sodium Bicarbonate 650 MG Oral Tablet Take [...] mouth in the morning. 60 Tablet 6 Econazole Nitrate 1 % External Cream (Spectazole) Apply to affected area on buttock, back and legs twice a day for 6 weeks 170 g 3 Furosemide 20 MG Oral Tablet (Lasix) Take 1 Tablet by mouth daily as needed (lower extremity edema). 30 Tablet 11 No current facility-administered medications for this visit. Review of patient's allergies indicates: Allergen Reactions Iodinated Contrast Media Abdominal pain Acute kidney failure Azactam [Aztreonam] Hives Ciprofloxacin Diarrhea Cephalosporins Rash Chlorhexidine Hives and Rash Levofloxacin Rash OBJECTIVE: BP 128/62 | Pulse 64 | Temp 36.6 C (97.9 F) (Tympanic) | Resp 20 | Ht 1.702 m (5' 7") | Wt 67.6kg (149 lb) | SpO2 95% | BMI 23.34 kg/m | BSA 1.79 m General: awake, alert, no apparent distress Eyes: no proptosis, no periorbital inflammation or soft tissue edema, no orbital cellulitis Skin: 2.0 cm x 1 cm erythematous erosive nodular growth noted left lateral neck Assessment: (L98.9) Skin lesion of neck (primary encounter diagnosis)-suspect skin cancer Plan: Rest Increase fluids. Keep area clean and dry. Gently cleanse the area twice daily with warm soapy water. Apply bacitracin and bandaid. Watch for any signs of infection. Follow up with dermatology for skin biopsy Rosalba Christina PA-C [facility] [address] [facility] [address] [place] [address] documented in this encounter Nursing Notes * Michelle Fuentes MED ASSIST - 06/13/2024 11:39 AM EDT Kennedy Davis is a 78 year old male who presents to walk-in clinic today complaining of Chief Complaint Patient presents with Rash Lumpy open area on left side of neck. Denies itch, noticed lump in November 2023. Tried denied Patient is accompanied by for today's visit. * Anna Lynn RT - 06/13/2024 11:13 AM EDT Pt does not want to use [facility] ins. Wishes to use [facility] today documented in this encounter Plan of Treatment Upcoming Encounters Date Type Department Care Team (Late st Contact Info) Description 07/17/2024 8:00 AM EDT Office Visit Rheumatology, [address] [phone] Perry Tate MD [address] [place] [address], [place] [address] 07/24/2024 2:30 PM EDT Office Visit Dermatology, [facility] [address] [facility] 140 [place] [address] Malaika Guzman PA-C 27 [place] [address] 08/14/2024 11:00 AM EDT Office Visit Nephrology, [address] [phone] Keisha Gunn MD [address] [place] [address] [phone] 08/21/2024 2:00 PM EDT Office Visit Family [facility] 21 [facility] [place] [phone] Fuentes Ashton MD 21 [place], [place] [phone] 01/22/2025 1:30 PM EDT PulmDiagnostic Pulmonary Function Lab [facility] [address] [place] [address] [address], [address] [place] [address] 01/22/2025 2:00 PM EDT Office Visit Pulmonary Medicine [facility] [address] [place] [phone] Dominguez Aguilar MD [address] [place] [address] Scheduled Procedures Name Priority Associated Diagnoses Date/Ti [...] this encounter Medical Devices Implanted Type Area Boiler House Operator Device Identifier Shelf Expiration Date Model / Serial / Lot Mesh Perfix Plug Lg [id number] - [id number] Implanted:Qty: 1 on 02/07/2019 by Jonathan Correia DO at OR [facility] Right: Groin CR BARD : DAVOL 09/04/2023 [id number] / / [id number] documented as of this encounter Visit Diagnoses Diagnosis Skin lesion of neck- Primary documented in this encounter Advance Directives Documents on File Type Date Recorded Patient Animal Shelter Supervisor Expl anation Advance Directives and Living [...] [place] Adult Child Emergency Contact Care Teams As[facility] Relationship Specialty Start Date End Date Fuentes Ashton MD [address] [place] [phone] PCP - General Family Medicine 01/30/22 documented as of this encounter
--- OUTSIDE RECORDS SUMMARY | 2024-09-30 18:26 | External Medical Summary ---
Author Name Unknown Address Unknown Organization [id number]:[facility] [place] [address] [address] Laboratory Report Ordering Provider Test Date Status JOSELO VIDES 05/08/2024 10:14:40 Final Observation Date Value Abnormality Reference (Units ) Status WBC, Total 05/08/2024 10:14:40 7.63 4.00-10.80 (K/uL) Final RBC 05/08/2024 10:14:40 3.64 4.50-5.25 (M/uL) Final Hemoglobin 05/08/2024 10:14:40 10.8 Below low normal 14.0-16.8 (g/dL) Final HCT 05/08/2024 10:14:40 35.8 Below low normal 40.0-48.4 (%) Final MCV 05/08/2024 10:14:40 98.4 82.0-99.5 (fL) Final MCH 05/08/2024 10:14:40 29.7 27.0-34.0 (pg) Final MCHC 05/08/2024 10:14:40 30.2 32.0-36.0 (g/dL) Final RDW 05/08/2024 10:14:40 20.7 11.5-15.5 (%) Final Platelets 05/08/2024 10:14:40 130 Below low normal 140-400 (K/uL) Final MPV 05/08/2024 10:14:40 12.5 6.6-11.1 (fL) Final Nucleated erythrocytes/100 leukocytes [Ratio] in Blood by Automated count 05/08/2024 10:14:40 0 <=0 (/100 WBCs) Final Performing Location [facility] - [address] [place] [address]
--- OUTSIDE RECORDS SUMMARY | 2024-09-30 18:26 | External Medical Summary ---
Author Name Unknown Address Unknown Organization [id number][facility] [place] [address] [place] [address] Laboratory Report Ordering Provider Test Date Status JOSELO VIDES 05/08/2024 10:14:40 Final Observation Date Value Abnormality Reference (Units ) Status Uric Acid 05/08/2024 10:14:40 5.1 3.4-7.0 (m g/dL) Final Performing Location [facility] [place] [address] [place] [address]
--- OUTSIDE RECORDS SUMMARY | 2024-09-30 18:26 | External Medical Summary ---
Author Name Unknown Address Unknown Organization K01:[facility] - [address] [facility] [address] [facility] [address] [facility] [address] Laboratory Report Ordering Provider Test Date Status JOSELO VIDES 04/24/2024 10:03:52 Final Observation Date Value Abnormality Reference (Units ) Status WBC, Total 04/24/2024 10:03:52 9.55 4.00-10.80 (K/uL) Final RBC 04/24/2024 10:03:52 3.83 4.50-5.25 (M/uL) Final Hemoglobin 04/24/2024 10:03:52 11.0 Below low normal 14.0-16.8 (g/dL) Final HCT 04/24/2024 10:03:52 36.2 Below low normal 40.0-48.4 (%) Final MCV 04/24/2024 10:03:52 94.5 82.0-99.5 (fL) Final MCH 04/24/2024 10:03:52 28.7 27.0-34.0 (pg) Final MCHC 04/24/2024 10:03:52 30.4 32.0-36.0 (g/dL) Final RDW 04/24/2024 10:03:52 19.7 11.5-15.5 (%) Final Platelets 04/24/2024 10:03:52 159 140-400 (K/uL) Final MPV 04/24/2024 10:03:52 11.9 6.6-11.1 (fL) Final Nucleated erythrocytes/100 leukocytes [Ratio] in Blood by Automated count 04/24/2024 10:03:52 0 <=0 (/100 WBCs) Final Performing Location [facility] - [address] [place] [address]
--- OUTSIDE RECORDS SUMMARY | 2024-09-30 18:26 | External Medical Summary ---
Author Name Unknown Address Unknown Organization [id number]:[facility] [place] [address] [place] [address] Laboratory Report Ordering Provider Test Date Status JOSELO VIDES 04/24/2024 10:03:52 Final Observation Date Value Abnormality Reference (Units ) Status Uric Acid 04/24/2024 10:03:52 5.3 3.4-7.0 (m g/dL) Final Performing Location LABORATORY [facility] - [address] [place] [address]
--- OUTSIDE RECORDS SUMMARY | 2024-09-30 18:26 | External Medical Summary | Summary of Care ---
Author Name Unknown Organization [facility] Address [address] [place] [address] Phone [phone] Care Team Providers Care Pants Presser Name Role Phone Fuentes Ashton MD Primary Care Provider [phone] Reason for Visit * Reason Comments Outpatient Testing Encounter Details Date Type Department Care Team (Late st Contact Info) Description 05/08/2024 10:10 AM EDT Laboratory Laboratory, [place] [address] [place] [address] [place], Lab [address] [place] [address] Chronic gout due to renal impairment of multiple sites without tophus Allergies Active Allergy Reactions Criticality Noted Date Comments Aztreonam Hives Medium 10/11/2019 Cephalosporins Rash 05/24/2017 Chlorhexidine Hives,Rash 01/02/2022 Ciprofloxacin Diarrhea Medium 01/28/2015 Iodinated Contrast Media Abdominal pain High 019 Acute kidney failure Levofloxacin Rash Low 07/28/2019 documented as of this encounter (statuses as of 05/08/2024) Medications Medication Sig Dispensed Refills Start Date End Date Status Calcium 500-100 MG-UNIT Oral Tablet Chewable 1 tablet daily 30 Tablet 01/05/2022 Active Apixaban 5 MG Oral Tablet (Eliquis)Indication [...] 2017 classification ([facility]) inhale contents of 1 vial [...] extremity edema). 30 Tablet 11 03/31/2024 Active Allopurinol 100 MG Oral Tablet (Zyloprim) Take 1.5 (1 and 1/2) Tablets by mouth in the morning. 45 Tablet 5 04/04/2024 Active Additional Information Patient taking differently: 200 mgOral Daily(AM), Reported on 04/19/2024 Sodium Bicarbonate 650 MG Oral Tablet Take 1 Tablet by mouth in the morning and 1 Tablet before bedtime. 180 Tablet 3 04/19/2024 Active Calcitriol 0.5 MCG Oral Capsule (Rocaltrol) Take 1 Capsule by mouth in the morning. 90 Capsule 3 04/19/2024 Active predniSONE 5 MG Oral Tablet (Deltasone)Indicati ons:Erythema nodosum Take 1.5 Tablets by mouth in the morning. 135 Tablet 4 05/03/2024 Active documented as of this encounter (statuses as of 05/08/2024) Active Problems Problem Noted Date Diagnosed Date [...] from 2019 Atherosclerotic heart diseas e of [place] coronary artery without angina pectoris 05/31/2020 CKD [...] as of this encounter (statuses as of 05/08/2024) Resolved Problems Problem Noted Date Diagnosed Date [...] chronic kidney disease 08/03/2023 08/03/2023 Atherosclerosis of [place] co ronary artery without angina pectoris 02/01/2023 [...] as of this encounter (statuses as of 05/08/2024) Immunizations Name Administration Dates Next Due COVID-19 mRNA, LNP-s, No Pre serve, 2-Dose Series (Coubic) 08/15/2021,01/31/2021,01/03/2021 COVID-19, LNP-s, No Preserve , Ruslan-sucrose, Ages 12+ (Coubic) 03/19/2022 COVID-19, MRNA-LNP, 23-24, P F, 30 MCG/0.3 mL, 12 YRS AND ABOVE, IM (PFIZER-Comirnaty) 10/25/2023 Covid-19, Mrna, Lnp-s, Pf, B ivalent, 30 Mcg, IM, 12 yrs and above (Pfizer) 2022 Pneumococcal Conjugate Vacc, 13 Valent (Prevnar) 01/21/2016 Pneumococcal Conjugate Vacci ne, 20-valent ([id number]) 07/19/2023 Pneumococcal Polysaccharide PPV23 (Pneumovax) 01/13/2011 RSV [...] No 01/31/2024 Does the household have a [facility] source of income? (Household - for [...] 8:00 AM EDT Office Visit Rheumatology, [address] [place] [phone] Perry Tate MD [address] [place] [address] 07/24/2024 2:30 PM EDT [facility] [address] [facility] [address] [place] [phone] Malaika Guzman PA-C [address] [place] [address] 08/14/2024 11:00 AM EDT Office Visit Nephrology, [address] [place] [phone] Keisha Gunn MD [address] [place] [address] 08/21/2024 2:00 PM EDT Office Visit Family [facility], [place] [address] [facility] [place] [phone] Fuentes Ashton MD [address] [place] [address] 01/22/2025 1:30 PM EDT PulmDiagnostic Pulmonary Function Lab [facility] [address] [place] [address] [address], [address] [place], [place] [address] 01/22/2025 2:00 PM EDT Office Visit Pulmonary Medicine [facility] [place] [address] [facility] [place] [phone] Dominguez Aguilar MD [address] [facility] [place] [address] Pending Results Name Type Priority Associated Diagnoses Date /Time URIC ACID Lab Routine Chronic gout due to renal impairment of multiple sites without tophus 05/08/2024 10:14 AM EDT CBC WITH WBC DIFFERENTIAL Lab Routine Chronic gout due to renal impairment of multiple sites without tophus 05/08/2024 10:14 AM EDT COMPREHENSIVE METABOLIC PANEL Lab Routine Chronic gout due to renal impairment of multiple sites without tophus 05/08/2024 10:14 AM EDT CBC Lab Routine Chronic gout due to renal impairment of multiple sites without tophus 05/08/2024 10:14 AM EDT DIFFERENTIAL, AUTOMATED Lab Routine Chronic gout due to renal impairment of multiple sites without tophus 05/08/2024 10:14 AM EDT Scheduled Procedures Name Priority Associated [...] 110 12/2022, 05/18/2023, Additional history exists GFR 10/24/2024 04/24/2024, 01/2024, 03/27/2024, Additional history exists TSH 01/30/2025 01/31/2024, 01/07, [...] Vaccine: 65+ Years Completed 07/19/2023, 01/21/2016, 01/13/2011 GARDASIL-HPV IMMUNIZATION SERIES Aged Out No longer eligible based on patient's age to complete this topic Hepatitis B Aged Out No longer eligi ble based on patient's age to complete this topic MENINGOCOCCAL (MENACTRA/MENVEO) Aged Out No longer eligible based on patient's age to complete this topic documented as of this encounter Medical Devices Implanted Type Area Operations Forester Device Identifier Shelf Expiration Date Model / Serial / Lot Mesh Perfix Plug Lg [id number] - [id number] Implanted:Qty: 1 on 02/07/2019 by Jonathan Correia DO at OR [facility] Right: Groin CR BARD : MARIE 09/04/2023 [id number] / / [id number] documented as of this encounter Visit Diagnoses Diagnosis 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 No * Full Code Date Activated Date Inactivated Comments 12/16/2021 2:35 PM 01/05/2022 7:06 PM This order re flects the patients wishes and were consensually agreed upon. Question Answer Comments Discussion of Advance Directives occurred with: Patient/Family Healthcare Agents on File Name Relationship Healthcare Agent [facility] p Communication Karen Davis Spouse Health Care Repr esentative (appointed verbally by patient or by statute hierarchy) Lula Colón Adult Child Emergency Contact Care Teams Pants Presser Relationship Specialty Start Date End Date Fuentes Ashton MD [address] [phone] PCP - General Family Medicine 01/30/22 documented as of this encounter
--- OUTSIDE RECORDS SUMMARY | 2024-09-30 18:26 | External Medical Summary | Summary of Care ---
Author Name Unknown Organization [facility] Address [address] [place] [address] Phone [phone] Care Team Providers Care Machine Design Engineer Name Role Phone Fuentes Ashton MD Primary Care Provider [phone] [phone] Encounter Details Date Type Department Care Team (Late st Contact Info) Description 01/27/2024 Telephone [facility] 21 [place] [address] Fuentes Ashton MD 21 [place] [address] Allergies Active Allergy Reactions Criticality Noted Date Comments Aztreonam Hives Medium 10/11/2019 Cephalosporins Rash 05/24/2017 Chlorhexidine Hives,Rash 01/02/2022 Ciprofloxacin Diarrhea Medium 01/28/2015 Iodinated Contrast Media Abdominal pain High 019 Acute kidney failure Levofloxacin Rash Low 07/28/2019 documented as of this encounter (statuses as of 04/27/2024) Medications Medication Sig Dispensed Refills Start Date [...] Delayed Release (PriLOSEC)Indicatio ns:Gastroesophageal reflux disease without esophagitis,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 Take by [...] group C, by GOLD 2017 classification ([facility]) inhale contents of 1 vial ( [...] milliliter intramuscularly every 7 days 09/16/2023 Active documented as of this encounter (statuses as of 04/27/2024) Active Problems Problem Noted Date Diagnosed Date [...] as of this encounter (statuses as of 04/27/2024) Resolved Problems Problem Noted Date Diagnosed Date [...] as of this encounter (statuses as of 04/27/2024) Immunizations Name Administration Dates Next Due COVID-19 mRNA, LNP-s, No Pre serve, 2-Dose Series ([employer]) 08/15/2021,01/31/2021,01/03/2021 COVID-19, LNP-s, No Preserve , Ruslan-sucrose, Ages 12+ ([employer]) 03/19/2022 COVID-19, MRNA-LNP, 23-24, P F, 30 MCG/0.3 mL, 12 YRS AND ABOVE, IM ([employer]) 10/25/2023 Covid-19, Mrna, Lnp-s, Pf, B ivalent, 30 Mcg, IM, 12 yrs and above ([employer]) 2022 Pneumococcal Conjugate Vacc, 13 Valent (Prevnar) 01/21/2016 Pneumococcal Conjugate Vacci ne, 20-valent ([id number]) 07/19/2023 Pneumococcal Polysaccharide PPV23 (Pneumovax) 01/13/2011 RSV [...] drink = 0.6 oz pur e alcohol) Holidays only AUDIT-C Answer Date Recorded Frequency of Alcohol [...] you have serious difficulty h earing? No 09/09/2023 Are you blind or do you have serious difficulty seeing, even when wearing glasses? No 09/09/2023 Do you have serious difficul ty walking or climbing stairs? (5 years old or older) No 09/10/2023 Do you have difficulty dress ing or bathing? (5 years old or older) No 09/09/2023 Because of a physical, menta l, or emotional condition, do you have difficulty doing errands alone such as visiting a doctor s office or shopping? (15 years old or older) No 09/09/20 Cognitive Status Response Date of Assessm ent Because of a physical, menta l, or emotional condition, do you have serious difficulty concentrating, remembering, or making decisions? (5 years old or older) No 09/09/2023 documented as of this encounter Miscellaneous Notes * Telephone Encounter - Pastora Sousa CMA - 01/27/2024 4:39 PM EDT informed of the below msg and verbalized understanding. She advised that there is some remaining redness. Swelling is improving. No fevers or other sx noted. Julieta for f/u with wilfredo on 01/31/24 at 1000 am. aware and agreeable. documented in this encounter Plan of Treatment Upcoming Encounters Date Type Department Care Team (Late st Contact Info) Description 07/17/2024 8:00 AM EDT Office Visit Rheumatology, [address] [address] Perry Tate MD [address] [place] [address], [place] [address] 07/24/2024 2:30 PM EDT [facility] [address] [place] [address] Malaika Guzman PA-C 27 [facility] [address] [place] [address] 08/14/2024 11:00 AM EDT Office Visit Nephrology, [address] [address] Keisha Gunn MD [address] [place] [address] 08/21/2024 2:00 PM EDT Office Visit [facility] 21 [place] [phone] Fuentes Ashton MD 21 [place] [address] 01/22/2025 1:30 PM EDT PulmDiagnostic Pulmonary Function Lab [facility] [address] [address] [address], [address] [facility] [place] [address] 01/22/2025 2:00 PM EDT Office Visit Pulmonary Medicine [facility] [address] [phone] Dominguez Aguilar MD [address] [address] Scheduled Procedures Name Priority Associated Diagnoses Date/Ti me COLONOSCOPY FLEXIBLE PROXIMA L DIAGNOSTIC Recall Diverticulosis of sigmoid colon Health Maintenance Due Date Last Done Comments COVID-19 Vaccine ( season) 2023 2023, 10/25/2023, 2022, Additional history exists Diabetic Eye Exam 07/19/2024 07/19/2023, , 04/09/2022, Additional history exists Diabetic Foot Exam 07/19/2024 07/19/2023, 0 06/01/2022, 03/14/2019, Additional history exists HbA1c 08/02/2024 01/31/2024, 11/0 12/2022, 05/18/2023, Additional history exists GFR 10/24/2024 04/24/2024, 060 01/2024, 03/27/2024, Additional history exists TSH 01/30/2025 [...] 01/21/2016, 01/13/2011 Influenza Vaccine (FLU shot) Completed 08/30/2023, 09/23/2022, 09/01/2021, Additional history exists GARDASIL-HPV IMMUNIZATION SERIES Aged Out No longer eligible based on patient's age to complete this topic Hepatitis B Aged Out No longer eligi ble based on patient's age to complete this topic MENINGOCOCCAL (MENACTRA/MENVEO) Aged Out No longer eligible based on patient's age to complete this topic documented as of this encounter Medical Devices Implanted Type Area Irrigation Service Technician Device Identifier Shelf Expiration Date Model / Serial / Lot Mesh Perfix Plug Lg [id number] - [id number] Implanted:Qty: 1 on 02/07/2019 by Jonathan Correia, at OR [facility] Right: Groin CR BARD : DAVOL 09/04/2023 [id number] / / [id number] documented as of this encounter Additional Health Concerns Infection Onset Date Last Indicated Resolved Time Respiratory Rule-Out 02/19/2024 02/19/2024 024 9:58 PM EDT COVID-19 Rule-Out 02/19/2024 02/19/2024 02/19/2024 9:58 PM EDT Respiratory Rule-Out 02/27/2024 02/27/2024 024 1:34 PM EDT COVID-19 Rule-Out 02/27/2024 02/27/2024 02/27/2024 1:34 PM EDT Respiratory Rule-Out 03/18/2024 03/18/2024 024 9:42 AM EDT COVID-19 Rule-Out 03/18/2024 03/18/2024 03/18/2024 9:42 AM EDT documented as of this encounter Advance Directives Documents on File Type Date Recorded 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
--- OUTSIDE RECORDS SUMMARY | 2024-09-30 18:26 | External Medical Summary | Summary of Care ---
Author Name Unknown Organization [facility] Address [address] [place] [facility] [place] [address] Phone [phone] Care Team Providers Care Sales Agent Protective Service Name Role Phone Fuentes Ashton MD Primary Care Provider [phone] Reason for Visit * Reason Onset Date Comments Test Results 02/25/202404/24 Six min henny k Encounter Details Date Type Department Care Team (Late st Contact Info) Description 02/25/2024 Telephone Pulmonary Medicine [facility] Downing [address] [phone] Dominguez Aguilar MD [address] [facility] [place], [place] [id number] Test Results (04/24 Six min walk) Allergies Active Allergy Reactions Criticality Noted Date [...] Tablet Chewable 1 tablet daily 30 Tablet 01/05/20 22 Active Apixaban 5 MG Oral Tablet (Eliquis)Indicati ons:Paroxysmal atrial fibrillation (HCC) Take by mouth 1 Tablet in the morning AND 1 Tablet before bedtime. 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 30 minutes before a meal. 30 Capsule 01/05/20 22 Active Vitamin B 12 500 MCG Oral Tablet Take by mouth 1 Tablet daily . Active Econazole Nitrate 1 % External Cream (Spectazole)Indic ations:Rash and nonspecific skin eruption Apply to affected area on buttock, back and legs twice a day for 6 weeks 170 g 3 09/14/20 22 Active Albuterol Sulfate (2.5 MG/3ML) 0.083% Inhalation Nebulization Solution (Proventil)Indica tions:COPD, group C, by GOLD 2017 classification ([facility]) inhale contents of 1 vial ( 3 milliliters ) in nebulizer by mouth and INTO THE LUNGS every 4 hours if needed for wheezing shortness of breath or cough 360 mL 5 05/31/20 23 Active Atorvastatin Calcium 20 MG Oral Tablet [...] morning. 180 Each 3 01/28/20 24 Active Albuterol Sulfate 108 (90 Base) MCG/ACT Inhalation Aerosol Powder Breath ActivatedIndicati ons:COPD, moderate (HCC) Inhale by mouth 2 Puffs every 4 hours as needed for Shortness of Breath. 1 Each 5 03/03/20 22 024 Discontinued(Re fill) Calcitriol 0.25 MCG Oral Capsule (Rocaltrol) Take 1 Capsule by mouth in the morning. 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 IPMN (intraductal papillary mucinous neoplasm) 0 03/09/2018 Overview: 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 [...] chronic kidney disease 08/03/2023 08/03/2023 Atherosclerosis of [place] co ronary artery without angina pectoris [...] mRNA, LNP-s, No Pre serve, 2-Dose Series ([employer]) 08/15/2021,01/31/2021,01/03/2021 COVID-19, LNP-s, No Preserve , Ruslan-sucrose, Ages 12+ ([employer]) 03/19/2022 COVID-19, MRNA-LNP, 23-24, P F, 30 MCG/0.3 mL, 12 YRS AND ABOVE, IM ([employer]) 10/25/2023 Covid-19, Mrna, Lnp-s, Pf, B ivalent, 30 Mcg, IM, 12 yrs and above ([employer]) 2022 Pneumococcal Conjugate Vacc, 13 Valent (Prevnar) 01/21/2016 Pneumococcal Conjugate Vacci ne, 20-valent ([id number]) 07/19/2023 Pneumococcal Polysaccharide PPV23 (Pneumovax) 01/13/2011 RSV [...] you have serious difficulty h earing? No 02/20/2024 Are you blind or do you have serious difficulty seeing, even when wearing glasses? No 02/20/2024 Do you have serious difficul ty walking or climbing stairs? (5 years old or older) No 02/20/2024 Do you have difficulty dress ing or bathing? (5 years old or older) No 02/20/2024 Because of a physical, menta l, or emotional condition, do you have difficulty doing errands alone such as visiting a doctor s office or shopping? (15 years old or older) No 02/20/20 Cognitive Status Response Date of Assessm ent Because of a physical, menta l, or emotional condition, do you have serious difficulty concentrating, remembering, or making decisions? (5 years old or older) No 02/20/2024 documented as of this encounter Miscellaneous Notes * Telephone Encounter - Lilia Zee LPN - 04/27/2024 11:18 AM EDT Oxygen d/c order faxed to [facility] with confirmation received. * Telephone Encounter - Lilia Zee LPN - 04/26/2024 12:29 PM EDT Called the pt's , Karen and gave her his results and that he does not need oxygen. Please sign, thanks. * Telephone Encounter - Dominguez Aguilar MD - 04/25/2024 4:45 PM EDT 6 minute walk test on room air is normal. No need for oxygen supplementation Thank you * Telephone Encounter - Lilia Zee LPN - 04/25/2024 4:30 PM EDT Please review 6 min walk from 04/25/24. * Telephone Encounter - Kim Brannon OSA - 03/27/2024 9:09 AM EDT Patient is rescheduled f or 04/24. They wanted to wait until next month to do the testing. * Telephone Encounter - Lilia Zee LPN - 03/24/2024 2:54 PM EDT Pt discharged 03/23/24 on no oxygen. He will need the testing rescheduled, please. * Telephone Encounter - Emma Adorno LPN - 03/21/2024 3:18 PM EDT Testing not done due to the patient being admitted. Testing will need rescheduled if he is not discharged on oxygen. * Telephone Encounter - Lilia Zee LPN - 03/07/2024 10:17 AM EDT Pt rescheduled to 03/20/24. * Telephone Encounter - Kim Brannon OSA - 02/25/2024 2:49 PM EDT Patient is scheduled and aware of the date and time * Telephone Encounter - Lilia Zee LPN - 02/25/2024 2:23 PM EDT Please schedule, thanks. * Telephone Encounter - Dominguez Aguilar MD - 02/25/2024 2:07 PM EDT Signed Thank you * Telephone Encounter - Lilia Zee LPN - 02/25/2024 12:12 PM EDT The pt's said he was discharged yesterday from the hospital and was told to call and have the pt scheduled for a six min walk because he was sent home on oxygen. Do you want him to do this, if so sign the order please, thanks. documented in this encounter Plan of Treatment Upcoming Encounters Date Type Department Care Team (Late st Contact Info) Description 07/17/2024 8:00 AM EDT Office Visit Rheumatology, [address] [address] Perry Tate MD [address] [place] [address], [place] [address] 07/24/2024 2:30 PM EDT [facility] 140 [place] [address] Malaika Guzman PA-C 27 [facility] 140 [place] [address] 08/14/2024 11:00 AM EDT Office Visit Nephrology, [address] [address] Keisha Gunn MD [address] [place] [address] 08/21/2024 2:00 PM EDT Office Visit [facility] 21 [place] [phone] Fuentes Ashton MD 21 [place] [address] 01/22/2025 1:30 PM EDT PulmDiagnostic Pulmonary Function Lab [facility] [address] [facility] [place] [address] [address], [address] [place] [address] 01/22/2025 2:00 PM EDT Office Visit Pulmonary Medicine [facility] [address] [phone] Dominguez Aguilar MD [address] [address] Scheduled Procedures Name Priority Associated Diagnoses Date/Ti [...] this encounter Medical Devices Implanted Type Area Laboratory Chemist Device Identifier Shelf Expiration Date Model / Serial / Lot Mesh Perfix Plug Lg [id number] - [id number] Implanted:Qty: 1 on 02/07/2019 by Jonathan Correia DO at OR [facility] Right: Groin CR BARD : DAVOL 09/04/2023 [id number] / / [id number] documented as of this encounter Results * PULMONARY STRESS TESTING (04/24/2024) Dominguez Aguilar MD MEDICINE documented in this encounter Visit Diagnoses Diagnosis COPD, moderate (HCC)- Primary Chronic airway obstruction, not elsewhere classified documented in this encounter Additional Health Concerns Infection Onset Date Last Indicated Resolved Time Respiratory Rule-Out 02/27/2024 02/27/2024 024 1:34 PM EDT COVID-19 Rule-Out 02/27/2024 02/27/2024 02/27/2024 1:34 PM EDT Respiratory Rule-Out 03/18/2024 03/18/2024 024 9:42 AM EDT COVID-19 Rule-Out 03/18/2024 03/18/2024 03/18/2024 9:42 AM EDT documented as of this encounter Advance Directives Documents on File Type Date Recorded Patient Life Guard 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
--- OUTSIDE RECORDS SUMMARY | 2024-09-30 18:26 | External Medical Summary | Summary of Care ---
Author Name Unknown Organization [facility] Address [address] [facility] [address] Phone [phone] Care Team Providers Care Eeg Tech Name Role Phone Fuentes Ashton MD Primary Care Provider [phone] Reason for Visit * Reason Onset Date Comments Advice 01/26/202401/25 Encounter Details Date Type Department Care Team (Late st Contact Info) Description 01/26/2024 Telephone [facility] 21 [facility] [address] Fuentes Ashton MD 21 [facility] [place] [address] Advice (01/25) Allergies Active Allergy Reactions Criticality Noted Date Comments Aztreonam Hives Medium 10/11/2019 Cephalosporins Rash 05/24/2017 Chlorhexidine Hives,Rash 01/02/2022 Ciprofloxacin Diarrhea Medium 01/28/2015 Iodinated Contrast Media Abdominal pain High 019 Acute kidney failure Levofloxacin Rash Low 07/28/2019 documented as of this encounter (statuses as of 04/26/2024) Medications Medication Sig Dispensed Refills Start Date [...] 2017 classification ([facility]) inhale contents of 1 vial [...] as of this encounter (statuses as of 04/26/2024) Active Problems Problem Noted Date Diagnosed Date [...] from 2018 Atherosclerotic heart diseas e of [place] coronary artery without angina pectoris 05/31/2020 CKD [...] as of this encounter (statuses as of 04/26/2024) Resolved Problems Problem Noted Date Diagnosed Date [...] chronic kidney disease 08/03/2023 08/03/2023 Atherosclerosis of [place] co ronary artery without angina pectoris 02/01/2023 [...] as of this encounter (statuses as of 04/26/2024) Immunizations Name Administration Dates Next Due COVID-19 mRNA, LNP-s, No Pre serve, 2-Dose Series ([employer]) 08/15/2021,01/31/2021,01/03/2021 COVID-19, LNP-s, No Preserve , Ruslan-sucrose, Ages 12+ ([employer]) 03/19/2022 COVID-19, MRNA-LNP, 23-24, P F, 30 MCG/0.3 mL, 12 YRS AND ABOVE, IM ([facility]) 10/25/2023 Covid-19, Mrna, Lnp-s, Pf, B ivalent, 30 Mcg, IM, 12 yrs and above ([employer]) 2022 Pneumococcal Conjugate Vacc, 13 Valent (Prevnar) 01/21/2016 Pneumococcal Conjugate Vacci ne, 20-valent ([id number]) 07/19/2023 Pneumococcal Polysaccharide PPV23 (Pneumovax) 01/13/2011 RSV [...] money to get more. Never true 01/31/2024 Sex and Gender Information Value Date Recorded [...] Encounter - Pastora Sousa CMA - 01/27/2024 4:37 PM EDT informed of the below msg and verbalized understanding. She advised that there is some remaining redness. Swelling is improving. No fevers or other sx noted. Julieta for f/u with wilfredo on 01/31/24 at 1000 am. aware and agreeable. * Telephone Encounter - Fuentes Ashton MD - 01/26/2024 1:08 PM EDT Bursitis is inflammation and not infection. Antibiotics indicated only if signs of infection are present. * Telephone Encounter - Son Sarabia OSA - 01/26/2024 12:30 PM EDT Patient was seen at [facility] today 01/26/24 and diagnosed with Bursitis on elbow. Patients asking if her needs to be on antibiotics? [phone] documented in this encounter Plan of Treatment Upcoming Encounters Date Type Department Care Team (Late st Contact Info) Description 07/17/2024 8:00 AM EDT Office Visit Rheumatology, [address] [place] [address] Perry Tate MD [facility]0 [facility], [place] [address] 07/24/2024 2:30 PM EDT Office Visit Dermatology, Ahmet Rowell [address] [place] [phone] Malaika Guzman PA-C [address] [place] [address] 08/14/2024 11:00 AM EDT Office Visit Nephrology, [facility] 400 [facility] [place], [place] [address] Keisha Gunn MD [facility] [address] 08/21/2024 2:00 PM EDT Office Visit [facility] [phone] Fuentes Ashton MD 21 [facility] [address] 01/22/2025 1:30 PM EDT PulmDiagnostic Pulmonary Function Lab [facility] [address] [facility] [place] [address] [address], [address] [place], [place] [address] 01/22/2025 2:00 PM EDT Office Visit Pulmonary Medicine [facility] [address] [phone] Dominguez Aguilar MD [address] [facility] [address] Scheduled Procedures Name Priority Associated Diagnoses Date/Ti [...] 01/31/2024, 12/2022, 05/18/2023, Additional history exists GFR 10/24/2024 [...] this encounter Medical Devices Implanted Type Area Cops Device Identifier Shelf Expiration Date Model / Serial / Lot Mesh Perfix Plug Lg [id number] - [id number] Implanted:Qty: 1 on 02/07/2019 by Jonathan Correia DO at OR [facility] Right: Groin CR BARD : DAVOL 09/04/2023 [id number] / / [id number] documented as of this encounter Additional Health [...] Documents on File Type Date 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
--- OUTSIDE RECORDS SUMMARY | 2024-09-30 18:26 | External Medical Summary ---
Author Name Unknown Address Unknown Organization K01:[facility] - 100 [facility] [place] [address] Laboratory Report Ordering Provider Test Date Status JOSELO VIDES 04/24/2024 10:03:52 Final Observation Date Value Abnormality Reference (Units ) Status BUN 04/24/2024 10:03:52 45 Above high normal 6-20 (mg/dL) Final Creatinine 04/24/2024 10:03:52 3.5 Above high normal 0.6-1.2 (mg/dL) Final Glomerular filtration rate/1.73 sq M.predicted [Volume Rate/Area] in Serum, Plasma or Blood by Creatinine-based formula (CKD-EPI) 04/24/2024 10:03:52 17 Below low normal >=60 (mL/min) Final eGFR is calculated based on the CKD-EPI 2020 equation Sodium 04/24/2024 10:03:52 137 135-146 (m mol/L) Final Potassium 04/24/2024 10:03:52 3.9 3.5-5.1 (m mol/L) Final Cl 04/24/2024 10:03:52 103 98-107 (mm ol/L) Final CO2 04/24/2024 10:03:52 21 Below low normal 22- 32 (mmol/L) Final Anion gap 04/24/2024 10:03:52 13 7-15 (mmol /L) Final Glucose 04/24/2024 10:03:52 94 70-120 (mg /dL) Final Albumin 04/24/2024 10:03:52 3.8 3.8-5.0 (g /dL) Final AST (Aspartate aminotransferase) 04/24/2024 10:03:52 23 10-50 (U/L) Fin al Alk Phos 04/24/2024 10:03:52 54 35-130 (U/ L) Final Bilirubin, Total 04/24/2024 10:03:52 0.2 <=1 .2 (mg/dL) Final Calcium 04/24/2024 10:03:52 10.0 8.4-10.2 ( mg/dL) Final Protein 04/24/2024 10:03:52 7.2 6.0-8.3 (g /dL) Final ALT (Alanine aminotransferase) 04/24/2024 10:03:52 19 10-50 (U/L) Everardo diaz Performing Location [facility] - [address] [facility] [address]
--- OUTSIDE RECORDS SUMMARY | 2024-09-30 18:26 | External Medical Summary ---
Author Name Unknown Address Unknown Organization [id number]:[facility] [place] [address] [facility] [place] [place] [address] Laboratory Report Ordering Provider Test Date Status JOSELO VIDES 05/08/2024 10:14:40 Final Observation Date Value Abnormality Reference (Units ) Status BUN 05/08/2024 10:14:40 62 Above high normal 6-20 (mg/dL) Final Creatinine 05/08/2024 10:14:40 2.9 Above high normal 0.6-1.2 (mg/dL) Final Glomerular filtration rate/1.73 sq M.predicted [Volume Rate/Area] in Serum, Plasma or Blood by Creatinine-based formula (CKD-EPI) 05/08/2024 10:14:40 21 Below low normal >=60 (mL/min) Final eGFR is calculated based on the CKD-EPI 2020 equation Sodium 05/08/2024 10:14:40 139 135-146 (m mol/L) Final Potassium 05/08/2024 10:14:40 4.1 3.5-5.1 (m mol/L) Final Cl 05/08/2024 10:14:40 105 98-107 (mm ol/L) Final CO2 05/08/2024 10:14:40 23 22-32 (mmo l/L) Final Anion gap 05/08/2024 10:14:40 11 7-15 (mmol /L) Final Glucose 05/08/2024 10:14:40 96 70-120 (mg /dL) Final Albumin 05/08/2024 10:14:40 4.0 3.8-5.0 (g /dL) Final AST (Aspartate aminotransferase) 05/08/2024 10:14:40 24 10-50 (U/L) Fin al Alk Phos 05/08/2024 10:14:40 43 35-130 (U/ L) Final Bilirubin, Total 05/08/2024 10:14:40 0.3 <=1 .2 (mg/dL) Final Calcium 05/08/2024 10:14:40 11.2 Above high normal 8. 4-10.2 (mg/dL) Final Protein 05/08/2024 10:14:40 6.9 6.0-8.3 (g /dL) Final ALT (Alanine aminotransferase) 05/08/2024 10:14:40 25 10-50 (U/L) Everardo diaz Performing Location [facility] [place] [address] [facility] [address]
--- OUTSIDE RECORDS SUMMARY | 2024-09-30 18:26 | External Medical Summary ---
Author Name Unknown Address Unknown Organization K01:[facility] [place] - 100 [facility] [address] Laboratory Report Ordering Provider Test Date Status JOSELO VDIES 05/08/2024 10:14:40 Final Observation Date Value Abnormality Reference (Units ) Status SYNC LEUKOCYTES IN BLOOD BY AUTOMATED COUNT 05/08/2024 10:14:40 7.63 4.00-10.80 (K/uL) Final Segs 05/08/2024 10:14:40 69.2 40.0-75.0 (%) Final Lymphs % 05/08/2024 10:14:40 19.0 18.0-42.0 (%) Final Monos 05/08/2024 10:14:40 5.9 1.0-11.0 (%) Final Eosinophils 05/08/2024 10:14:40 4.1 0.0-6.0 (%) Final Basos 05/08/2024 10:14:40 0.4 0.0-2.0 (%) Final Immature Granulocyte, Percent 05/08/2024 10:14:40 1.4 0.0-2.0 (%) Final Absolute Segs 05/08/2024 10:14:40 5.28 1.80-7.70 (K/uL) Final Lymphs, absolute 05/08/2024 10:14:40 1.45 1.00-4.80 (K/ul) Final Monos, Abs 05/08/2024 10:14:40 0.45 0.00-1.10 (K/uL) Final Eos, Abs 05/08/2024 10:14:40 0.31 0.00-0.70 (K/uL) Final Basos, Abs 05/08/2024 10:14:40 0.03 0.00-0.20 (K/uL) Final Immature Granulocytes, Number 05/08/2024 10:14:40 0.11 0.00-0.20 (K/uL) Final Performing Location [facility] [place] - [address] [facility] [address]
--- OUTSIDE RECORDS SUMMARY | 2024-09-30 18:26 | External Medical Summary | Summary of Care ---
Author Name Unknown Organization [facility] Address [address] [place] [address] Phone [phone] Care Team Providers Care Managed Services Sales Consultant Name Role Phone Fuentes Ashton MD Primary Care Provider [phone] [phone] Reason for Visit * Reason Comments Outpatient Testing Encounter Details Date Type Department Care Team (Late st Contact Info) Description 04/24/2024 9:50 AM EDT Laboratory Laboratory, [place] [address] [place] [address] [place], Lab [address] [place] [address] Testicular hypofunction*; Chronic gout due to renal impairment of multiple sites without tophus Allergies Active Allergy Reactions Criticality Noted Date Comments Aztreonam Hives Medium 10/11/2019 Cephalosporins Rash 05/24/2017 Chlorhexidine Hives,Rash 01/02/2022 Ciprofloxacin Diarrhea Medium 01/28/2015 Iodinated Contrast Media Abdominal pain High 019 Acute kidney failure Levofloxacin Rash Low 07/28/2019 documented as of this encounter (statuses as of 04/24/2024) Medications Medication Sig Dispensed Refills Start Date [...] Delayed Release (PriLOSEC)Indicatio ns:Gastroesophageal reflux disease without esophagitis,shelter (current) use of [...] ons:COPD, group C, by GOLD 2017 classification ([facility]) inhale contents of 1 vial ( 3 [...] Powder Breath Activated (ANORO ellipta)Indications :COPD, moderate ([facility]) Inhale 1 Puff by mouth in the morning. 180 Each 3 01/28/2024 Active predniSONE 5 MG Oral Tablet (Deltasone)Indicati ons:Erythema nodosum Take 1 AND 1/2 tablets by mouth every morning Do not start before March 10, 2024. 135 Tablet 4 03/10/2024 Active Albuterol Sulfate 108 (90 Base) MCG/ACT [...] the morning. 90 Capsule 3 04/19/2024 Active documented as of this encounter (statuses as of 04/24/2024) Active Problems Problem Noted Date Diagnosed Date [...] from 2019 Atherosclerotic heart diseas e of [place] coronary artery without angina pectoris 05/31/2020 CKD [...] as of this encounter (statuses as of 04/24/2024) Resolved Problems Problem Noted Date Diagnosed Date [...] chronic kidney disease 08/03/2023 08/03/2023 Atherosclerosis of [place] de[place]' co ronary artery without angina pectoris 02/01/2023 [...] Cachexia 08/30/2019 05/31/2020 Hypertensive heart disease w [facility] heart failure and stage 5 [...] PL and AMP Hypertensive heart disease w [facility] heart failure and stage 3 [...] as of this encounter (statuses as of 04/24/2024) Immunizations Name Administration Dates Next Due COVID-19 mRNA, LNP-s, No Pre serve, 2-Dose Series (Exo) 08/15/2021,01/31/2021,01/03/2021 COVID-19, LNP-s, No Preserve , Ruslan-sucrose, Ages 12+ (Exo) 03/19/2022 COVID-19, MRNA-LNP, 23-24, P F, 30 MCG/0.3 mL, 12 YRS AND ABOVE, IM (PFIZER-Comirnat) 10/25/2023 Covid-19, Mrna, Lnp-s, Pf, B ivalent, 30 Mcg, IM, 12 yrs and above (Pfizer) 2022 Pneumococcal Conjugate Vacc, 13 Valent (Prevnar) 01/21/2016 Pneumococcal Conjugate Vacci ne, 20-valent ([id number]) 07/19/2023 Pneumococcal Polysaccharide PPV23 (Pneumovax) 01/13/2011 RSV [...] Care Team (Late st Contact Info) Description 04/24/2024 2:00 PM EDT PulmDiagnostic Pulmonary Function Lab, [address] [address] [address], Pulm Function Room [address] [place], [place] [address] [address] 07/17/2024 8:00 AM EDT Office Visit Rheumatology, [address] [place] [address] Perry Tate MD [facility]0 [facility], [place] [address] 07/24/2024 2:30 PM EDT [facility] [address] [place] [address] Malaika Guzman PA-C [address] [facility] [address] [place] [address] 08/14/2024 11:00 AM EDT Office Visit Nephrology, [facility] [address] [place] [address] Keisha Gunn MD [address] [place] [address] 08/21/2024 2:00 PM EDT Office Visit [facility] 21 [place] [phone] Fuentes Ashton MD [address] [place] [address] 01/22/2025 1:30 PM EDT PulmDiagnostic Pulmonary Function Lab [facility] [address] [place] [address] [address], [address] [facility] [place] [address] 01/22/2025 2:00 PM EDT Office Visit Pulmonary Medicine [facility] [place] [address] [place] [address] [phone] Dominguez Aguilar MD [address] [place] [address] Pending Results Name Type Priority Associated Diagnoses Date /Time TESTOSTERONE, FREE, BIO AND TOTAL, MS Lab Routine Testicular hypofunction 04/24/2024 10:03 AM EDT URIC ACID Lab Routine Chronic gout due to renal impairment of multiple sites without tophus 04/24/2024 10:03 AM EDT CBC WITH WBC DIFFERENTIAL Lab Routine Chronic gout due to renal impairment of multiple sites without tophus 04/24/2024 10:03 AM EDT COMPREHENSIVE METABOLIC PANEL Lab Routine Chronic gout due to renal impairment of multiple sites without tophus 04/24/2024 10:03 AM EDT CBC Lab Routine Chronic gout due to renal impairment of multiple sites without tophus 04/24/2024 10:03 AM EDT DIFFERENTIAL, AUTOMATED Lab Routine Chronic gout due to renal impairment of multiple sites without tophus 04/24/2024 10:03 AM EDT Scheduled Orders Name Type Priority Associated Diagnoses Orde r Schedule TESTOSTERONE, FREE, BIO AND TOTAL, MS Lab Routine Testicular hypofunction Expected: 04/24/2024, Expires: 04/24/2025 Scheduled Procedures Name Priority Associated Diagnoses Date/Ti [...] 11/0 12/2022, 05/18/2023, Additional history exists GFR 10/10/2024 04/10/2024, 03/09, 03/23/2024, Additional history exists TSH 01/30/2025 01/31/2024, 01/07, [...] this encounter Medical Devices Implanted Type Area Typing Teacher Device Identifier Shelf Expiration Date Model / Serial / Lot Mesh Perfix Plug Lg [id number] - [id number] Implanted:Qty: 1 on 02/07/2019 by Jonathan Correia DO at OR [facility] Right: Groin CR BARD : DAVOL 09/04/2023 [id number] / / [id number] documented as of this encounter Visit Diagnoses Diagnosis Testicular hypofunction- Primary Other testicular hypofunction 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
--- OUTSIDE RECORDS SUMMARY | 2024-09-30 18:26 | External Medical Summary | Summary of Care ---
Author Name Unknown Organization [facility] Address [address] [place] [address] Phone [phone] Care Team Providers Care Security Expert Name Role Phone Fuentes Ashton MD Primary Care Provider [phone] [phone] Reason for Visit * Reason Comments Medication Refill Encounter Details Date Type Department Care Team (Late st Contact Info) Description 05/03/[address] [facility] 3rd Floor [address] [facility] [place] [phone] Mahogany Josue MD [address] [place] [address] Erythema nodosum Allergies Active Allergy Reactions Criticality Noted Date Comments Aztreonam Hives Medium 10/11/2019 Cephalosporins Rash 05/24/2017 Chlorhexidine Hives,Rash 01/02/2022 Ciprofloxacin Diarrhea Medium 01/28/2015 Iodinated Contrast Media Abdominal pain High 019 Acute kidney failure Levofloxacin Rash Low 07/28/2019 documented as of this encounter (statuses as of 05/03/2024) Medications Medication Sig Dispensed Refills Start Date End Date Status Calcium 500-100 MG-UNIT Oral Tablet Chewable 1 tablet daily 30 Tablet 2 Active Apixaban 5 MG Oral [...] Release (PriLOSEC)Indicati ons:Gastroesophage al reflux disease without esophagitis,alf (current) use of [...] extremity edema). 30 Tablet 11 4 Active Allopurinol 100 MG Oral Tablet (Zyloprim) Take 1.5 (1 and 1/2) Tablets by mouth in the morning. 45 Tablet 5 4 Active Additional Information Patient taking differently: 200 mgOral Daily(AM), Reported on 04/19/2024 Sodium Bicarbonate 650 MG Oral Tablet Take 1 Tablet by mouth in the morning and 1 Tablet before bedtime. 180 Tablet 3 4 Active Calcitriol 0.5 MCG Oral Capsule (Rocaltrol) Take 1 Capsule by mouth in the morning. 90 Capsule 3 4 Active predniSONE 5 MG Oral Tablet (Deltasone)Indicat ions:Erythema nodosum Take 1.5 Tablets by mouth in the morning. 135 Tablet 4 4 Active predniSONE 5 MG Oral Tablet (Deltasone)Indicat ions:Erythema nodosum Take 1 AND 1/2 tablets by mouth every morning Do not start before March 10, 2024. 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 IPMN (intraductal papillary mucinous neoplasm) 0 03/09/2018 Overview: 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 continuous 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 (current) use 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 Steroid-induced diabetes [...] as of this encounter (statuses as of 05/03/2024) Resolved Problems Problem Noted Date Diagnosed Date [...] chronic kidney disease 08/03/2023 08/03/2023 Atherosclerosis of [place] co ronary artery without angina pectoris 02/01/2023 [...] Cachexia 08/30/2019 05/31/2020 Hypertensive heart disease w [facility] heart failure and stage 5 chronic kidney [...] PL and AMP Hypertensive heart disease w [facility] heart failure and stage 3 chronic [...] as of this encounter (statuses as of 05/03/2024) Immunizations Name Administration Dates Next Due COVID-19 mRNA, LNP-s, No Pre serve, 2-Dose Series ([employer]) 08/15/2021,01/31/2021,01/03/2021 COVID-19, LNP-s, No Preserve , Ruslan-sucrose, Ages 12+ (Pfizer) 03/19/2022 COVID-19, MRNA-LNP, 23-24, P F, 30 MCG/0.3 mL, 12 YRS AND ABOVE, IM ([facility]) 10/25/2023 Covid-19, Mrna, Lnp-s, Pf, B ivalent, 30 Mcg, IM, 12 yrs and above (Pfizer) 2022 Pneumococcal Conjugate Vacc, 13 Valent (Prevnar) 01/21/2016 Pneumococcal Conjugate Vacci ne, 20-valent ([id number]) 07/19/2023 Pneumococcal Polysaccharide PPV23 (Pneumovax) 01/13/2011 RSV [...] encounter Miscellaneous Notes * Telephone Encounter - Mahogany Josue MD - 05/03/2024 9:55 AM EDTSigned Prescriptions: Disp Refills predniSONE 5 MG Oral Tablet (Deltasone) 135 Ta*4 Sig: Take 1.5 Tablets by mouth in the morning.Authorizing Provider: MAHOGANY JOSUE documented in this encounter Plan of Treatment Upcoming Encounters Date Type Department Care Team (Late st Contact Info) Description 07/17/2024 8:00 AM EDT Office Visit Rheumatology, [address] [address] Mahogany Josue MD [address] [place] [address], [place] [address] 07/24/2024 2:30 PM EDT Office Visit Dermatology, [facility] [place] [address] [facility] [address] [place] [address] Malaika Guzman PA-C 27 [facility] [address] [place] [address] 08/14/2024 11:00 AM EDT Office Visit Nephrology, [facility] 400 [place] [address] Keisha Gunn MD [address] [place] [address] 08/21/2024 2:00 PM EDT Office Visit [facility] 21 [place] [phone] Fuentes Ashton MD 21 [place] [address] 01/22/2025 1:30 PM EDT PulmDiagnostic Pulmonary Function Lab [facility] [address] [facility] [place] [address] [address], [address] [place] [address] 01/22/2025 2:00 PM EDT Office Visit Pulmonary Medicine [facility] [address] [place] [phone] Dominguez Aguilar MD [address] [facility] [place] [address] Scheduled Procedures Name Priority Associated Diagnoses Date/Ti me COLONOSCOPY FLEXIBLE PROXIMA L DIAGNOSTIC Recall Diverticulosis of sigmoid colon Health Maintenance Due Date Last Done Comments COVID-19 Vaccine (2022- season) 2023 2023, 10/25/2023, 2022, Additional history [...] this encounter Medical Devices Implanted Type Area Cell Lead Device Identifier Shelf Expiration Date Model / Serial / Lot Mesh Perfix Plug Lg [id number] - [id number] Implanted:Qty: 1 on 02/07/2019 by Jonathan Correia, at OR [facility] Right: Lelo KEBEDE BARD : DAVOL 09/04/2023 [id number] / / [id number] documented as of this encounter Visit Diagnoses Diagnosis Erythema nodosum documented in this encounter Advance Directives Documents on File Type Date Recorded 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
--- OUTSIDE RECORDS SUMMARY | 2024-09-30 18:26 | External Medical Summary ---
Author Name Unknown Address Unknown Organization K01:[facility] [place] 100 [facility] [address] Laboratory Report Ordering Provider Test Date Status JOSELO VIDES 04/24/2024 10:03:52 Final Observation Date Value Abnormality Reference (Units ) Status SYNC LEUKOCYTES IN BLOOD BY AUTOMATED COUNT 04/24/2024 10:03:52 9.55 4.00-10.80 (K/uL) Final Segs 04/24/2024 10:03:52 64.2 40.0-75.0 (%) Final Lymphs % 04/24/2024 10:03:52 24.4 18.0-42.0 (%) Final Monos 04/24/2024 10:03:52 4.8 1.0-11.0 (%) Final Eosinophils 04/24/2024 10:03:52 3.9 0.0-6.0 (%) Final Basos 04/24/2024 10:03:52 0.4 0.0-2.0 (%) Final Immature Granulocyte, Percent 04/24/2024 10:03:52 2.3 Above high normal 0.0-2.0 (%) Final Absolute Segs 04/24/2024 10:03:52 6.13 1.80-7.70 (K/uL) Final Lymphs, absolute 04/24/2024 10:03:52 2.33 1.00-4.80 (K/ul) Final Monos, Abs 04/24/2024 10:03:52 0.46 0.00-1.10 (K/uL) Final Eos, Abs 04/24/2024 10:03:52 0.37 0.00-0.70 (K/uL) Final Basos, Abs 04/24/2024 10:03:52 0.04 0.00-0.20 (K/uL) Final Immature Granulocytes, Number 04/24/2024 10:03:52 0.22 Above high normal 0.00-0.20 (K/uL) Final Performing Location [facility] [place] [address] [place] [address]
--- OUTSIDE RECORDS SUMMARY | 2024-09-30 18:26 | External Medical Summary | Summary of Care ---
Author Name Unknown Organization [facility] Address [address] [place] [address] Phone [phone] Care Team Providers Care Clinical Lab Technologist Name Role Phone Fuentes Ashton MD Primary Care Provider +1 [phone] Reason for Visit * Reason Comments Pulmonary Function Test Encounter Details Date Type Department Care Team (Late st Contact Info) Description 04/24/2024 2:00 PM EDT PulmDiagnostic Pulmonary Function Lab, [facility] [address] [place] [address] [facility], Pulm Function Room 1 [address] [place] [address] COPD, moderate (HCC)* Allergies Active Allergy Reactions Criticality Noted Date [...] Release (PriLOSEC)Indicatio ns:Gastroesophageal reflux disease without 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,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 Take [...] GOLD 2017 classification ([facility]) inhale contents of 1 vial [...] Powder Breath Activated (ANORO ellipta)Indications :COPD, moderate ([facility]) Inhale 1 Puff by mouth in [...] from 2019 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 05/31/2020 CKD (chronic kidney disease) stage 4, GFR 15-29 ml/min 07/17/2019 Chronic anticoagulation 04/03/2019 Vitamin D deficiency 11/17/2018 Senile osteoporosis 09/06/2018 Paroxysmal atrial fibrillation 07/08/2018 Last Assessment & Plan: Rate controlled on metoprolol Continue apixaban History of acute tubular necrosis 06/29/2018 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 IPMN (intraductal papillary mucinous neoplasm) 0 03/09/2018 Overview: 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 Steroid-induced [...] Cachexia 08/30/2019 05/31/2020 Hypertensive heart disease w [facility] heart failure and stage 5 chronic [...] PL and AMP Hypertensive heart disease w [facility] heart failure and stage 3 chronic [...] mRNA, LNP-s, No Pre serve, 2-Dose Series ([employer]) 08/15/2021,01/31/2021,01/03/2021 COVID-19, LNP-s, No Preserve , Ruslan-sucrose, Ages 12+ ([employer]) 03/19/2022 COVID-19, MRNA-LNP, 23-24, P F, 30 MCG/0.3 mL, 12 YRS AND ABOVE, IM (PFIZER-Comirnat) 10/25/2023 Covid-19, Mrna, Lnp-s, Pf, B ivalent, 30 Mcg, IM, 12 yrs and above (Pfizer) 2022 Pneumococcal Conjugate Vacc, 13 Valent (Prevnar) 01/21/2016 Pneumococcal Conjugate Vacci ne, 20-valent ([id number]) 07/19/2023 Pneumococcal Polysaccharide PPV23 (Pneumovax) 01/13/2011 RSV [...] as of this encounter Progress Notes * Anna Segundo CRT - 04/24/2024 2:11 PM EDT 6 minute walk completed on room air. documented in this encounter Plan of Treatment Upcoming Encounters Date Type Department Care Team (Late st Contact Info) Description 07/17/2024 8:00 AM EDT Office Visit Rheumatology, [address] [address] Perry Tate MD [address] [place] [address] 07/24/2024 2:30 PM EDT Office Visit Dermatology, [place] [address] [facility] [address] [place] [address] Malaika Guzman PA-C [address] [facility] [address] [place] [address] 08/14/2024 11:00 AM EDT Office Visit Nephrology, [facility] [address] [place] [address] Keisha Gunn MD [address] [place] [address] 08/21/2024 2:00 PM EDT Office Visit [facility] 21 [place] [phone] Fuentes Ashton MD 21 [place] [address] 01/22/2025 1:30 PM EDT PulmDiagnostic Pulmonary Function Lab [facility] [address] [place] [address] [address], [address] [facility] [place] [address] 01/22/2025 2:00 PM EDT Office Visit Pulmonary Medicine [facility] [address] [place] [phone] Dominguez Aguilar MD [address] [place] [address] Scheduled Procedures Name Priority Associated Diagnoses Date/Ti [...] 01/31/2024, 1112/2022, 05/18/2023, Additional history exists GFR 10/10/2024 04/10/2024, [...] encounter Medical Devices Implanted Type Area Supervisor Liquid Yeast Device Identifier Shelf Expiration Date Model / Serial / Lot Mesh Perfix Plug Lg [id number] - [id number] Implanted:Qty: 1 on 02/07/2019 by Jonathan Correia DO at OR [facility] Right: Groin CR BARD : DAVOL 09/04/2023 [id number] / / [id number] documented as of this encounter Procedures Procedure Name Priority Date/Time Associated Diagnosis Comments PULMONARY STRESS TESTING Routine 04/24/2024 COPD, moderate (HCC) documented in this encounter Results * PULMONARY STRESS TESTING (04/24/2024) Dominguez Aguilar MD MEDICINE documented in this encounter Visit Diagnoses Diagnosis COPD, moderate (HCC)- Primary Chronic airway obstruction, not elsewhere classified documented in this encounter Advance Directives Documents on File Type Date 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
--- OUTSIDE RECORDS SUMMARY | 2024-09-30 18:27 | External Medical Summary | Summary of Care ---
Author Name Unknown Organization [facility] Address [address] [place] [address] Phone [phone] Care Team Providers Care Lifestyle Coordinator Name Role Phone Fuentes Ashton MD Primary Care Provider [phone] Reason for Referral * Precert (Within 10 days (routine)) - Authorized Specialty Diagnoses / Procedures Referred By Contac t Referred To Contact Radiology Diagnoses 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HCC) Mediastinal lymphadenopathy Recurrent fever History of fungal pneumonia Procedures CT CHEST WO CONTRAST Steve Polo [facility] [address] Referral ID Status Reason Start Date Expiration Date V isits Requested Visits Authorized [id number] Authorized 04/05/2024 06/04/2024 999 999 Reason for Visit * Reason Onset Date Comments Test Results 04/04/2024 F/U 04/10 CT chest Encounter Details Date Type Department Care Team (Late st Contact Info) Description 04/04/2024 Telephone Pulmonary Medicine Ahmet Downing [address] [phone] Dominguez Aguilar MD [address] [address] Test Results (F/U 04/10 CT chest) Allergies Active Allergy Reactions Criticality Noted Date Comments Aztreonam Hives Medium 10/11/2019 Cephalosporins Rash 05/24/2017 Chlorhexidine Hives,Rash 01/02/2022 Ciprofloxacin Diarrhea Medium 01/28/2015 Iodinated Contrast Media Abdominal pain High 019 Acute kidney failure Levofloxacin Rash Low 07/28/2019 documented as of this encounter (statuses as of 04/18/2024) Medications Medication Sig Dispensed Refills Start Date [...] Delayed Release (PriLOSEC)Indicatio ns:Gastroesophageal reflux disease without esophagitis,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 180 Each 3 4 Active predniSONE 5 MG Oral Tablet (Deltasone)Indicati ons:Erythema nodosum Take 1 AND 1/2 tablets by mouth every morning Do not start before March 10, 2024. 135 Tablet 4 4 Active Albuterol Sulfate 108 (90 Base) MCG/ACT Inhalation Aerosol Powder Breath ActivatedIndication s:COPD, moderate (HCC) Inhale 2 Puffs by mouth every 4 hours as needed for Shortness of Breath. 1 Each 5 4 Active Calcitriol 0.5 MCG Oral Capsule (Rocaltrol) Take 1 Capsule by mouth in the morning. 30 Capsule 4 Active Furosemide 20 MG Oral Tablet (Lasix)Indications: Bilateral lower extremity edema Take 1 Tablet by mouth daily as needed (lower extremity edema). 30 Tablet 11 4 Active Allopurinol 100 MG Oral Tablet (Zyloprim) Take 1.5 (1 and 1/2) Tablets by mouth in the morning. 45 Tablet 5 4 Active Azithromycin 250 MG Oral Tablet (Zithromax)Indicati ons:Low grade fever,History of sepsis,History of fungal pneumonia Take 2 tabs by mouth on the first day, then 1 tab daily on days two through five 6 Tablet 4 04/05/20 24 documented as of this encounter (statuses as of 04/18/2024) Active Problems Problem Noted Date Diagnosed Date Hypertensive heart and kidne y disease [...] moderate 01/06/2021 Overview: Per COPD GOLD Classification Atherosclerosis of abdominal aorta 06/21/2020 Overview: CT Abd/pelvis from 2018 Atherosclerotic heart diseas e of [place] coronary artery without angina pectoris 05/31/2020 CKD (chronic kidney disease) stage 4, GFR 15-29 ml/min 07/17/2019 Chronic anticoagulation 04/03/2019 Vitamin D deficiency 11/17/2018 Senile osteoporosis 09/06/2018 Paroxysmal atrial fibrillation 07/08/2018 Last Assessment & Plan: Rate controlled on metoprolol Continue apixaban History of acute tubular necrosis 06/29/2018 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 IPMN (intraductal papillary mucinous neoplasm) 0 03/09/2018 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 [...] as of this encounter (statuses as of 04/18/2024) Resolved Problems Problem Noted Date Diagnosed Date [...] as of this encounter (statuses as of 04/18/2024) Immunizations Name Administration Dates Next Due COVID-19 mRNA, LNP-s, No Pre serve, 2-Dose Series ([employer]) 08/15/2021,01/31/2021,01/03/2021 COVID-19, LNP-s, No Preserve , Ruslan-sucrose, Ages 12+ (Pfizer) 03/19/2022 COVID-19, MRNA-LNP, 23-24, P F, 30 MCG/0.3 mL, 12 YRS AND ABOVE, IM ([facility]) 10/25/2023 Covid-19, Mrna, Lnp-s, Pf, B ivalent, 30 Mcg, IM, 12 yrs and above ([employer]) 2022 Pneumococcal Conjugate Vacc, 13 Valent (Prevnar) 01/21/2016 Pneumococcal Conjugate Vacci ne, 20-valent ([id number]) 07/19/2023 Pneumococcal Polysaccharide PPV23 (Pneumovax) 01/13/2011 RSV [...] encounter Miscellaneous Notes * Telephone Encounter - Emma Adorno LPN - 04/18/2024 8:37 AM EDT Pt's aware of Dr. Aguilar's message and she plans to call his back doctor today. She had no further questions at this time. * Telephone Encounter - Emma Adorno LPN - 04/17/2024 4:10 PM EDT Message left for the patient to call the office back. * Telephone Encounter - Dominguez Aguilar MD - 04/17/2024 12:01 PM EDT Nothing concerning on the CT chest about the lungs Please ask them to follow with the physician that did his back surgery He has quite some arthritic changes on the spine Thank you * Result Encounter Note - Steve Polo MD - 04/17/2024 6:[address] of lungs much better- pneumonia resolved, no concerning lymph nodes. Gallstones, but not inflamed * Telephone Encounter - Emma Adorno LPN - 04/14/2024 9:38 AM EDT I spoke with the patient's and she states that Kennedy has been having a lot of lower back pain,he has had back surgery in the past. He has not had a cough or any fevers recently since taking theAzithromycin that was prescribed on 03/31/24. He has not been complaining of any increased shortnessof breath and his pulse ox has been running in the high 90's. She said they were concerned that thefungal infection may have been back since he was running the fevers since that is how the fungal infection presented the first time. I did advise that if the back pain continues they should contact his PCP or back surgeon for further evaluation. She is aware that the final CT report is still pending and Dr. Aguilar is out of the office today, so once he reviews the CT report and my message we will get back to them with any further recommendations. * Telephone Encounter - Dominguez Aguilar MD - 04/13/2024 12:[address] shows minimal and subtle areas of ground glass opacities within the right lung Find out how patient is feeling now. Hopefully, he is better. They were asking if patient will need bronch based on prior bronch result Let's wait for the official result please Thank you * Telephone Encounter - Emma Adorno LPN - 04/12/2024 9:[address] images are back for your review. Report is still in process. * Telephone Encounter - Emma Adorno LPN - 04/11/2024 9:[address] chest is in process. * Telephone Encounter - Dominguez Aguilar MD - 04/05/2024 7:46 AM EDT Thank you We will follow the repeat CT Dominguez * Telephone Encounter - Deena Lau OSA - 04/05/2024 7:06 AM EDT Pt scheduled * Telephone Encounter - Karla Samaniego LPN - 04/04/2024 4:03 PM EDT Patient aware and verbalized understanding, will comply Transferred call to radiology scheduling. * Telephone Encounter - Yue Jones LPN - 04/04/2024 3:02 PM EDT Left message for the patient to call the office at [phone] in regards to below message from Dr. Polo. * Telephone Encounter - Steve Polo MD - 04/04/2024 2:57 PM EDT Please advise pt that Dr. Aguilar wants to start with repeat CT scan next, then proceed based on results. Order signed. Thanks! Steve Polo MD, ANTWON Family Physician Pablo Leo * Telephone Encounter - Emma Adorno LPN - 04/04/2024 2:50 PM EDT Pt had a chest xray on 03/31/24. Please place an order for the CT chest. * Telephone Encounter - Emma Adorno LPN - 04/04/2024 2:49 PM EDT ----- Message from Dominguez Aguilar MD sent at 04/04/2024 2:39 PM EDT ----- Regarding: RE: fungal pna Let's get a plane CT chest and re evaluate based on the CT result Thank you Dominguez ----- Message ----- From: Steve Polo MD Sent: 04/03/2024 7:35 AM EDT To: Dominguez Aguilar MD Subject: fungal pna Good morning- I saw Kennedy on Wednesday. He is feeling better except for getting daily severe chills with low grade fever, that is controlled on tylenol. He seems weak, but not acutely ill. In 2352-6164 he had penicillium species isolate on bronch, and these symptoms feel similar to what he had then. Do you think hewarrants bronchoscopy vs trial of voriconazole again? I can place a referral to get him back to [facility] if needed. Thanks! Joe documented in this encounter Plan of Treatment Upcoming Encounters Date Type Department Care Team (Late st Contact Info) Description 04/19/2024 11:20 AM EDT Office Visit Nephrology, [address] [address] Roslyn Moulton MD [address] [place] [address] 04/24/2024 2:00 PM EDT PulmDiagnostic Pulmonary Function Lab, [address] [address] Gl, Pulm Function Room [address] [place] [address] 07/17/2024 8:00 AM EDT Office Visit Rheumatology, [facility] [address] [place] [address] Perry Tate MD [facility] [place] [address] 07/24/2024 2:30 PM EDT Office Visit Dermatology, [facility] [address] [place], [place] [phone] Malaika Guzman PA-C [address] [place] [address] 08/14/2024 11:00 AM EDT Office Visit Nephrology, [facility] [address] [place] [address] Keisha Gunn MD [address] [place] [address] 08/21/2024 2:00 PM EDT Office Visit [facility] 21 [place] [phone] Fuentes Ashton MD 21 [facility] [place] [address] 01/22/2025 1:30 PM EDT PulmDiagnostic Pulmonary Function Lab [facility] [address] [facility] [address] [address] [address] [place] [address] 01/22/2025 2:00 PM EDT Office Visit Pulmonary Medicine [facility] [address] [facility] [address] [phone] Dominguez Aguilar MD [address] [facility] [address] [place] [address] Scheduled Procedures Name Priority Associated Diagnoses Date/Ti [...] this encounter Medical Devices Implanted Type Area Beading Installer Device Identifier Shelf Expiration Date Model / Serial / Lot Mesh Perfix Plug Lg [id number] - [id number] Implanted:Qty: 1 on 02/07/2019 by Jonathan Correia DO at OR [facility] Right: Groin CR BARD : DAVOL 09/04/2023 [id number] / / [id number] documented as of this encounter Procedures Procedure Name Priority Date/Time Associated Diagnosis Comments CT CHEST WO CONTRAST Routine 04/10/2024 12:41 PM EDT 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HCC) Mediastinal lymphadenopathy Recurrent fever History of fungal pneumonia documented in this encounter Results * CT CHEST WO CONTRAST (04/10/2024 12:41 PM EDT) Anatomical Region Laterality Modality Chest, Body, Cardio Computed Francis ography 04/10/2024 12:3 4 PM EDT Impressions 04/14/2024 12:59 PM EDT IMPRESSION: 1. Improved aeration with resolution of previously seen ground-glass infiltrates 2. Stable micro nodules. Continued routine surveillance recommended 3. Cholelithiasis. THIS DOCUMENT HAS BEEN ELECTRONICALLY SIGNED BY MABLE OLMEDO MD Narrative 04/14/2024 12:59 PM EDT PROCEDURE INFORMATION: Exam: CT Chest Without Contrast; Diagnostic Exam date and time: 04/10/2024 12:34 PM Age: 78 years old Clinical indication: Relapsing fever, unspecified; Localized enlarged lymph nodes; Personal history of pneumonia (recurrent); Antineutrophilic cytoplasmic antibody (anca) vasculitis; Additional info: Ongoing chills, normal cxr. HX fungal and bacterial pneumonia TECHNIQUE: Imaging protocol: Diagnostic computed tomography of the chest without contrast. 3D rendering (Not supervised by radiologist): MIP and/or 3D reconstructed images were created by the technologist. Radiation optimization: All CT scans at this facility use at least one of these dose optimization techniques: automated exposure control; mA and/or kV adjustment per patient size (includes targeted exams where dose is matched to clinical indication); or iterative reconstruction. COMPARISON: CT CHEST WO CONTRAST 02/27/2024 1:55 PM FINDINGS: Lungs: Overall aeration significantly improved from previous with resolution of previously seen ground-glass basilar markings. Scattered sub 6 mm nodules are otherwise stable.Multiple calcified gallstones are present. Pleural spaces: Unremarkable. No pneumothorax. No pleural effusion. Heart: Unremarkable. No cardiomegaly. No pericardial effusion. Lymph nodes: Unremarkable. No enlarged lymph nodes. Vasculature: Unremarkable. No aortic aneurysm. Bones/joints: Multiple compression deformities grossly unchanged compared to previous. Lumbar fusion seen at the periphery of the study again noted. Soft tissues: Unremarkable. Procedure Note Mable Olmedo MD - 04/14/2024 PROCEDURE INFORMATION: Exam: CT Chest Without Contrast; Diagnostic Exam date and time: 04/10/2024 12:34 PM Age: 78 years old Clinical indication: Relapsing fever, unspecified; Localized enlargedlymph nodes; Personal history of pneumonia (recurrent); Antineutrophiliccytoplasmic antibody (anca) vasculitis; Additional info: Ongoing chills, normal cxr.HX fungal and bacterial pneumonia TECHNIQUE: Imaging protocol: Diagnostic computed tomography of the chest withoutcontrast. 3D rendering (Not supervised by radiologist): MIP and/or 3D reconstructed images were created by the technologist. Radiation optimization: All CT scans at this facility use at least one ofthese dose optimization techniques: automated exposure control; mA and/or kV adjustment per patient size (includes targeted exams where dose is matchedto clinical indication); or iterative reconstruction. COMPARISON: CT CHEST WO CONTRAST 02/27/2024 1:55 PM FINDINGS: Lungs: Overall aeration significantly improved from previous withresolution of previously seen ground-glass basilar markings. Scattered sub 6 mm nodulesare otherwise stable.Multiple calcified gallstones are present. Pleural spaces: Unremarkable. No pneumothorax. No pleural effusion. Heart: Unremarkable. No cardiomegaly. No pericardial effusion. Lymph nodes: Unremarkable. No enlarged lymph nodes. Vasculature: Unremarkable. No aortic aneurysm. Bones/joints: Multiple compression deformities grossly unchanged comparedto previous. Lumbar fusion seen at the periphery of the study again noted. Soft tissues: Unremarkable. IMPRESSION IMPRESSION: 1. Improved aeration with resolution of previously seen ground-glass infiltrates 2. Stable micro nodules. Continued routine surveillance recommended 3. Cholelithiasis. 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
--- OUTSIDE RECORDS SUMMARY | 2024-09-30 18:27 | External Medical Summary | Summary of Care ---
Author Name Unknown Organization [facility] Address [address] [place] [address] Phone [phone] Care Team Providers Care Disk Operator Name Role Phone Fuentes Ashton MD Primary Care Provider [phone] Reason for Referral * Precert (Within 10 days (routine)) - Authorized Specialty Diagnoses / Procedures Referred By Contac t Referred To Contact Radiology Diagnoses 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HCC) Mediastinal lymphadenopathy Recurrent fever History of fungal pneumonia Procedures CT CHEST WO CONTRAST Steve Polo MD [address] [facility] [place] [address] Referral ID Status Reason Start Date Expiration Date V isits Requested Visits Authorized [id number] Authorized 04/05/2024 06/04/2024 999 999 Reason for Visit * Reason Onset Date Comments Test Results 04/04/2024 F/U 04/10 CT chest Encounter Details Date Type Department Care Team (Late st Contact Info) Description 04/04/2024 Telephone Pulmonary Medicine Ahmet Downing [address] [phone] Dominguez Aguilar MD [address] [address] Test Results (F/U 04/10 CT chest) Allergies Active Allergy Reactions Criticality Noted Date Comments Aztreonam Hives Medium 10/11/2019 Cephalosporins Rash 05/24/2017 Chlorhexidine Hives,Rash 01/02/2022 Ciprofloxacin Diarrhea Medium 01/28/2015 Iodinated Contrast Media Abdominal pain High 019 Acute kidney failure Levofloxacin Rash Low 07/28/2019 documented as of this encounter (statuses as of 04/17/2024) Medications Medication Sig Dispensed Refills Start Date [...] 2017 classification ([facility]) inhale contents of 1 vial ( [...] as of this encounter (statuses as of 04/17/2024) Active Problems Problem Noted Date Diagnosed Date [...] [place] coronary artery without angina pectoris 05/31/2020 CKD (chronic kidney disease) stage 4, GFR 15-29 ml/min 07/17/2019 Chronic anticoagulation 04/03/2019 Vitamin D deficiency 11/17/2018 Senile osteoporosis 09/06/2018 Paroxysmal atrial fibrillation 07/08/2018 Last Assessment & Plan: Rate controlled on metoprolol Continue apixaban History of acute tubular necrosis 06/29/2018 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 IPMN (intraductal papillary mucinous neoplasm) 0 03/09/2018 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 Steroid-induced diabetes [...] as of this encounter (statuses as of 04/17/2024) Resolved Problems Problem Noted Date Diagnosed Date [...] Cachexia 08/30/2019 05/31/2020 Hypertensive heart disease w [facility] heart failure and stage 5 chronic kidney [...] AMP Hypertensive heart disease w [facility] heart failure and stage 3 chronic kidney [...] as of this encounter (statuses as of 04/17/2024) Immunizations Name Administration Dates Next Due COVID-19 mRNA, LNP-s, No Pre serve, 2-Dose Series ([employer]) 08/15/2021,01/31/2021,01/03/2021 COVID-19, LNP-s, No Preserve , Ruslan-sucrose, Ages 12+ (Pfizer) 03/19/2022 COVID-19, MRNA-LNP, 23-24, P F, 30 MCG/0.3 mL, 12 YRS AND ABOVE, IM ([facility]) 10/25/2023 Covid-19, Mrna, Lnp-s, Pf, B ivalent, 30 Mcg, IM, 12 yrs and above ([employer]) 2022 Pneumococcal Conjugate Vacc, 13 Valent (Prevnar) 01/21/2016 Pneumococcal Conjugate Vacci ne, 20-valent ([id number]) 07/19/2023 Pneumococcal Polysaccharide PPV23 (Pneumovax) 01/13/2011 RSV [...] the patient to call the office at [phone] in regards to below message from Dr. [...] seems weak, but not acutely ill. In [id number] he had penicillium species isolate on bronch, [...] 04/19/2024 11:20 AM EDT Office Visit Nephrology, [place] [address] [place] [address] [place], [address] [address] [address] Roslyn Moulton MD [address] [place] [address] 04/24/2024 2:00 PM EDT PulmDiagnostic Pulmonary Function Lab, [address] [address] Gl, Pulm Function Room [address] [place] [address] [place] [address] 07/17/2024 8:00 AM EDT Office Visit Rheumatology, [address] [address] Perry Tate MD [facility] [place] [address] 07/24/2024 2:30 PM EDT [facility] [address] [place] [address] Malaika Guzman PA-C [address] [place] [address] 08/14/2024 11:00 AM EDT Office Visit Nephrology, [address] [address] Keisha Gunn MD [address] [place] [address] [place] [address] 08/21/2024 2:00 PM EDT Office Visit Family [facility] [address] [phone] Fuentes Ashton MD [address] [address] 01/22/2025 1:30 PM EDT PulmDiagnostic Pulmonary Function Lab Ahmet Downing [address] [address] [address], [address] [place] [address] 01/22/2025 2:00 PM EDT Office Visit Pulmonary Medicine Ahmet Downing [address] [phone] Dominguez Aguilar MD [address] [address] Scheduled Procedures Name Priority Associated Diagnoses Date/Ti [...] 01/31/2024, 12/2022, 05/18/2023, Additional history exists GFR 10/10/2024 [...] this encounter Medical Devices Implanted Type Area Visual Merchandiser Device Identifier Shelf Expiration Date Model / Serial / Lot Mesh Perfix Plug Lg [id number] - [id number] Implanted:Qty: 1 on 02/07/2019 by Jonathan Correia DO at OR [facility] Right: Groin CR BARD : DAVOL 09/04/2023 [id number] / / [id number] documented as of this encounter Procedures Procedure [...] ELECTRONICALLY SIGNED BY MABLE OLMEDO MD Steve oPlo MD RAD CT documented in this encounter Visit Diagnoses Diagnosis 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HCC)- Primary Other specified disorders of arteries and arterioles Mediastinal lymphadenopathy Enlargement of lymph nodes Recurrent fever Relapsing fever, unspecified History of fungal pneumonia documented in this encounter Advance Directives Documents on File Type Date Recorded 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
--- OUTSIDE RECORDS SUMMARY | 2024-09-30 18:27 | External Medical Summary | Summary of Care ---
Author Name Unknown Organization [facility] Address [address] [place] [address] Phone [phone] Care Team Providers Care Ip Litigation Associate Name Role Phone Fuentes Ashton MD Primary Care Provider [phone] Reason for Referral * Precert (Within 10 days (routine)) - Authorized Specialty Diagnoses / Procedures Referred By Contac t Referred To Contact Radiology Diagnoses 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HCC) Mediastinal lymphadenopathy Recurrent fever History of fungal pneumonia Procedures CT CHEST WO CONTRAST Steve Polo MD 21 [facility] [place] [address] Referral ID Status Reason Start Date Expiration Date V isits Requested Visits Authorized [id number] Authorized 04/05/2024 06/04/2024 999 999 Reason for Visit * Reason Onset Date Comments Test Results 04/04/2024 F/U 04/10 CT chest Encounter Details Date Type Department Care Team (Late st Contact Info) Description 04/04/2024 Telephone Pulmonary Medicine Ahmet Downing [address] [phone] Dominguez Aguilar MD [address] [address] Test Results (F/U 04/10 CT chest) Allergies Active Allergy Reactions Criticality Noted Date Comments Aztreonam Hives Medium 10/11/2019 Cephalosporins Rash 05/24/2017 Chlorhexidine Hives,Rash 01/02/2022 Ciprofloxacin Diarrhea Medium 01/28/2015 Iodinated Contrast Media Abdominal pain High 019 Acute kidney failure Levofloxacin Rash Low 07/28/2019 documented as of this encounter (statuses as of 04/14/2024) Medications Medication Sig Dispensed Refills Start Date [...] Delayed Release (PriLOSEC)Indicatio ns:Gastroesophageal reflux disease without esophagitis,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 Take by [...] by GOLD 2017 classification ([facility]) inhale contents of 1 vial [...] as of this encounter (statuses as of 04/14/2024) Active Problems Problem Noted Date Diagnosed Date [...] from 2018 Atherosclerotic heart diseas e of [place] coronary [...] as of this encounter (statuses as of 04/14/2024) Resolved Problems Problem Noted Date Diagnosed Date [...] Cachexia 08/30/2019 05/31/2020 Hypertensive heart disease w [facility] heart failure and stage 5 chronic [...] as of this encounter (statuses as of 04/14/2024) Immunizations Name Administration Dates Next Due COVID-19 mRNA, LNP-s, No Pre serve, 2-Dose Series ([employer]) 08/15/2021,01/31/2021,01/03/2021 COVID-19, LNP-s, No Preserve , Ruslan-sucrose, Ages 12+ (Pfizer) 03/19/2022 COVID-19, MRNA-LNP, 23-24, P F, 30 MCG/0.3 mL, 12 YRS AND ABOVE, IM ([facility]) 10/25/2023 Covid-19, Mrna, Lnp-s, Pf, B ivalent, 30 Mcg, IM, 12 yrs and above ([employer]) 2022 Pneumococcal Conjugate Vacc, 13 Valent (Prevnar) 01/21/2016 Pneumococcal Conjugate Vacci ne, 20-valent ([id number]) 07/19/2023 Pneumococcal Polysaccharide PPV23 (Pneumovax) 01/13/2011 RSV [...] the patient to call the office at [phone] in regards to below message from Dr. Polo. * Telephone Encounter - Steve Polo MD - 04/04/2024 2:57 PM EDT Please advise pt that Dr. Aguilar wants to start with repeat CT scan next, then proceed based on results. Order signed. Thanks! Steve Polo MD, ANTWON Family Physician Pablo Leo * Telephone Encounter - Emam Adorno LPN - 04/04/2024 2:50 PM EDT [...] seems weak, but not acutely ill. In [id number] he had penicillium species isolate on bronch, [...] 04/19/2024 11:20 AM EDT Office [address], [address] [address] Roslyn Moulton MD [address] [place] [address] [place] [address] 04/24/2024 2:00 PM EDT PulmDiagnostic Pulmonary Function Lab, [address] [place] [address] Gl, Pulm Function Room [address] [place], [place] [address] [address] 07/17/2024 8:00 AM EDT Office Visit Rheumatology, [address] [place] [address] Perry Tate MD [address] [place] [address] 07/24/2024 2:30 PM EDT [facility] [address] [place] [address] Malaika Guzman PA-C 27 [facility] 140 [place] [address] 08/14/2024 11:00 AM EDT Office Visit Nephrology, [facility] [address] [place] [address] Keisha Gunn MD 400 [place] [address] 08/21/2024 2:00 PM EDT [facility] 21 [place] [phone] Fuentes Ashton MD 21 [place] [address] 01/22/2025 1:30 PM EDT PulmDiagnostic Pulmonary Function Lab [facility] [address] [address] [address], [address] [facility] [place] [address] 01/22/2025 2:00 PM EDT Office Visit Pulmonary Medicine [facility] [address] [phone] Dominguez Aguilar MD [address] [address] Pending Results Name Type Priority Associated Diagnoses Date /Time CT CHEST WO CONTRAST Medical Imaging Routine 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HCC) Mediastinal lymphadenopathy Recurrent fever History of fungal pneumonia 04/10/2024 12:41 PM EDT Scheduled Procedures Name Priority Associated [...] this encounter Medical Devices Implanted Type Area Carriage Feeder Device Identifier Shelf Expiration Date Model / Serial / Lot Mesh Perfix Plug Lg [id number] - [id number] Implanted:Qty: 1 on 02/07/2019 by Jonathan Correia, DO at OR [facility] Right: Groin CR BARD : DAVOL 09/04/2023 [id number] / / [id number] documented as of this encounter Visit Diagnoses Diagnosis 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HCC)- Primary Other specified disorders of arteries and arterioles Mediastinal lymphadenopathy Enlargement of lymph nodes Recurrent fever Relapsing fever, unspecified History of fungal pneumonia documented in this encounter Advance Directives Documents on File Type Date Recorded 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
--- OUTSIDE RECORDS SUMMARY | 2024-09-30 18:27 | External Medical Summary | Summary of Care ---
Author Name Unknown Organization [facility] Address [address] [place] [address] Phone [phone] Care Team Providers Care Industrial Relations Representative Name Role Phone Fuentes Ashton MD Primary Care Provider [phone] Reason for Referral * Precert (Within 10 days (routine)) - Authorized Specialty Diagnoses / Procedures Referred By Contac t Referred To Contact Radiology Diagnoses 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HCC) Mediastinal lymphadenopathy Recurrent fever History of fungal pneumonia Procedures CT CHEST WO CONTRAST Steve Polo MD [address] [facility] [place] [address] Referral ID Status Reason Start Date Expiration Date V isits Requested Visits Authorized [id number] Authorized 04/05/2024 06/04/2024 999 999 Reason for Visit * Reason Onset Date Comments Test Results 04/04/2024 F/U 04/10 CT chest Encounter Details Date Type Department Care Team (Late st Contact Info) Description 04/04/2024 Telephone Pulmonary Medicine Ahmet Downing [address] [phone] Dominguez Aguilar MD [address] [address] Test Results (F/U 04/10 CT chest) Allergies [...] 2017 classification ([facility]) inhale contents of 1 vial ( [...] mucinous neoplasm) 0 03/09/2018 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 Steroid-induced diabetes [...] 05/31/2020 Hypertensive heart disease w [facility] heart failure and stage 5 chronic kidney [...] AMP Hypertensive heart disease w [facility] heart failure and stage 3 chronic kidney [...] mRNA, LNP-s, No Pre serve, 2-Dose Series ([employer]) 08/15/2021,01/31/2021,01/03/2021 COVID-19, LNP-s, No Preserve , Ruslan-sucrose, Ages 12+ (Pfizer) 03/19/2022 COVID-19, MRNA-LNP, 23-24, P F, 30 MCG/0.3 mL, 12 YRS AND ABOVE, IM ([facility]) 10/25/2023 Covid-19, Mrna, Lnp-s, Pf, B ivalent, 30 Mcg, IM, 12 yrs and above ([employer]) 2022 Pneumococcal Conjugate Vacc, 13 Valent (Prevnar) 01/21/2016 Pneumococcal Conjugate Vacci ne, 20-valent ([id number]) 07/19/2023 Pneumococcal Polysaccharide PPV23 (Pneumovax) 01/13/2011 RSV [...] Miscellaneous Notes * Result Encounter Note - Steve Polo [...] the patient to call the office at [phone] in regards to below message from Dr. [...] seems weak, but not acutely ill. In [phone] he had penicillium species isolate on bronch, [...] 11:20 AM EDT Office Visit Nephrology, [place] [address] [place] [address] [place] [address] Roslyn Moulton MD [address] [place] [address] 04/24/2024 2:00 PM EDT PulmDiagnostic Pulmonary Function Lab, [facility] [address] [place] [address] Gl, Pulm Function Room 1 400 [facility] [place] [address] 07/17/2024 8:00 AM EDT Office Visit Rheumatology, [address] [address] Perry Tate MD [facility] [place] [address] 07/24/2024 2:30 PM EDT [facility] 140 [place] [address] Malaika Guzman PA-C 27 [facility] 140 [place] [address] 08/14/2024 11:00 AM EDT Office Visit Nephrology, [address] [address] Keisha Gunn MD 400 [place] [address] 08/21/2024 2:00 PM EDT Office Visit [facility] 21 [place] [phone] Fuentes Ashton MD 21 [place] [address] 01/22/2025 1:30 PM EDT PulmDiagnostic Pulmonary Function Lab [facility] [address] [address] [address], [address] [place] [address] 01/22/2025 2:00 PM EDT Office Visit Pulmonary Medicine [facility] [address] [phone] Dominguez Aguilar MD [address] [place] [address] Scheduled Procedures Name Priority Associated Diagnoses Date/Ti [...] this encounter Medical Devices Implanted Type Area Integration Specialist Device Identifier Shelf Expiration Date Model / Serial / Lot Mesh Perfix Plug Lg [id number] - [id number] Implanted:Qty: 1 on 02/07/2019 by Jonathan Correia DO at OR [facility] Right: Groin CR BARD : DAVOL 09/04/2023 [id number] / / [id number] documented as of this encounter Procedures Procedure [...] Documents on File Type Date Recorded Patient Carrier Associate Expl anation Advance Directives and Living Will [...] [place] Adult Child Emergency Contact Care Teams Industrial Relations Representative Relationship Specialty Start Date End Date Fuentes Ashton MD [address] [address] PCP - General Family Medicine 01/30/22 documented as of this encounter
--- OUTSIDE RECORDS SUMMARY | 2024-09-30 18:27 | External Medical Summary | Summary of Care ---
Author Name Unknown Organization [facility] Address [address] [place] [address] Phone [phone] Care Team Providers Care Work Environment Safety Inspector Name Role Phone Fuentes Ashton MD Primary Care Provider [phone] Reason for Referral * Precert (Within 10 days (routine)) - Authorized Specialty Diagnoses / Procedures Referred By Contac t Referred To Contact Radiology Diagnoses 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HCC) Mediastinal lymphadenopathy Recurrent fever History of fungal pneumonia Procedures CT CHEST WO CONTRAST Steve Polo MD [address] [place] [address] Referral ID Status Reason Start Date Expiration Date V isits Requested Visits Authorized [id number] Authorized 04/05/2024 06/04/2024 999 999 Reason for Visit * Reason Onset Date Comments Test Results 04/04/2024 F/U 04/10 CT chest Encounter Details Date Type Department Care Team (Late st Contact Info) Description 04/04/2024 Telephone Pulmonary Medicine Ahmet Downing [address] [phone] Dominguez Aguilar MD [address] [address] Test Results (F/U 04/10 CT chest) Allergies Active Allergy Reactions Criticality Noted Date Comments Aztreonam Hives Medium 10/11/2019 Cephalosporins Rash 05/24/2017 Chlorhexidine Hives,Rash 01/02/2022 Ciprofloxacin Diarrhea Medium 01/28/2015 Iodinated Contrast Media Abdominal pain High 019 Acute kidney failure Levofloxacin Rash Low 07/28/2019 documented as of this encounter (statuses as of 04/13/2024) Medications Medication Sig Dispensed Refills Start Date [...] Delayed Release (PriLOSEC)Indicatio ns:Gastroesophageal reflux disease without esophagitis,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 Take [...] as of this encounter (statuses as of 04/13/2024) Active Problems Problem Noted Date Diagnosed Date [...] from 2018 Atherosclerotic heart diseas e of [place] coronary artery without angina pectoris 05/31/2020 CKD (chronic kidney disease) stage 4, GFR 15-29 ml/min 07/17/2019 Chronic anticoagulation 04/03/2019 Vitamin D deficiency 11/17/2018 Senile osteoporosis 09/06/2018 Paroxysmal atrial fibrillation 07/08/2018 Last Assessment & Plan: Rate controlled on metoprolol Continue apixaban History of acute tubular necrosis 06/29/2018 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 heart failure and stage 5 chronic [...] and AMP Hypertensive heart disease w [facility] heart failure and stage 3 chronic [...] as of this encounter (statuses as of 04/13/2024) Immunizations Name Administration Dates Next Due COVID-19 mRNA, LNP-s, No Pre serve, 2-Dose Series ([employer]) 08/15/2021,01/31/2021,01/03/2021 COVID-19, LNP-s, No Preserve , Ruslan-sucrose, Ages 12+ (Pfizer) 03/19/2022 COVID-19, MRNA-LNP, 23-24, P F, 30 MCG/0.3 mL, 12 YRS AND ABOVE, IM ([facility]) 10/25/2023 Covid-19, Mrna, Lnp-s, Pf, B ivalent, 30 Mcg, IM, 12 yrs and above ([employer]) 2022 Pneumococcal Conjugate Vacc, 13 Valent (Prevnar) 01/21/2016 Pneumococcal Conjugate Vacci ne, 20-valent ([id number]) 07/19/2023 Pneumococcal Polysaccharide PPV23 (Pneumovax) 01/13/2011 RSV [...] encounter Miscellaneous Notes * Telephone Encounter - Dominguez Aguilar MD [...] the patient to call the office at [phone] in regards to below message from Dr. [...] seems weak, but not acutely ill. In [phone] he had penicillium species isolate on bronch, [...] 11:20 AM EDT Office Visit Nephrology, [place] [address] [place] [address] [place] [address] Roslyn Moulton MD [address] [place], [place] [address] [address] 04/24/2024 2:00 PM EDT PulmDiagnostic Pulmonary Function Lab, [address] [address] [address], Pulm Function Room [address] [place], [place] [address] [address] 07/17/2024 8:00 AM EDT Office Visit Rheumatology, [address] [place] [address] Perry Tate MD [facility]0 [place] [place] [address] 07/24/2024 2:30 PM EDT Office Visit Dermatology, [facility] 27 [facility] [place] [address] [place] [address] Malaika Guzman PA-C 27 [facility] [place] [address] [place] [address] 08/14/2024 11:00 AM EDT Office Visit Nephrology, [address] [place] [address] Keisha Gunn MD [address] [place], [place] [address] [address] 08/21/2024 2:00 PM EDT Office Visit Family [facility] [phone] Fuentes Ashton MD [address] [place] [address] 01/22/2025 1:30 PM EDT PulmDiagnostic Pulmonary Function Lab [address] [place] [address] [place] [address] [address], [address] [place], [place] [address] 01/22/2025 2:00 PM EDT Office Visit Pulmonary Medicine [address] [place] [address] [phone] Dominguez Aguilar MD [address] [place] [address] Pending Results Name Type Priority Associated Diagnoses [...] this encounter Medical Devices Implanted Type Area Welding Engineer Device Identifier Shelf Expiration Date Model / Serial / Lot Mesh Perfix Plug Lg [id number] - [id number] Implanted:Qty: 1 on 02/07/2019 by Jonathan Correia DO at OR [facility] Right: Groin CR BARD : DAVOL 09/04/2023 [id number] / / [id number] documented as of this encounter Visit Diagnoses Diagnosis 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HCC)- Primary Other specified disorders of arteries and arterioles Mediastinal lymphadenopathy Enlargement of lymph nodes Recurrent fever Relapsing fever, unspecified History of fungal pneumonia documented in this encounter Advance Directives Documents on File Type Date Recorded 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 Adult Child Emergency Contact Care Teams Work Environment Safety Inspector Relationship Specialty Start Date End Date Fuentes Ashton MD [address] [phone] PCP - General Family Medicine 01/30/22 documented as of this encounter
--- OUTSIDE RECORDS SUMMARY | 2024-09-30 18:27 | External Medical Summary | Summary of Care ---
Author Name Unknown Organization [facility] Address [address] [place] [address] Phone [phone] Care Team Providers Care Supervisor Putty And Caluking Name Role Phone Fuentes Asthon MD Primary Care Provider [phone] Reason for Visit * Reason Comments Follow Up Encounter Details Date Type Department Care Team (Late st Contact Info) Description 04/19/2024 11:20 AM EDT Office Visit NephrologyFrancisco [address] [place] [address] [place] [phone] Roslyn Moulton MD [address] [facility] [address] Anemia in stage 4 chronic kidney disease (HCC)*; Renal osteodystrophy; HTN, goal below 140/90 Allergies Active Allergy Reactions Criticality Noted Date Comments Aztreonam Hives Medium 10/11/2019 Cephalosporins Rash 05/24/2017 Chlorhexidine Hives,Rash 01/02/2022 Ciprofloxacin Diarrhea Medium 01/28/2015 Iodinated Contrast Media Abdominal pain High 019 Acute kidney failure Levofloxacin Rash Low 07/28/2019 documented as of this encounter (statuses as of 04/19/2024) Medications Medication Sig Dispensed Refills Start Date [...] Release (PriLOSEC)Indicati ons:Gastroesophage al reflux disease without esophagitis,penitentiary (current) use of [...] Powder Breath Activated (ANORO ellipta)Indication s:COPD, moderate ([facility]) Inhale 1 Puff by mouth in [...] the morning. 90 Capsule 3 4 Active Calcitriol 0.5 MCG Oral Capsule (Rocaltrol) Take 1 Capsule by mouth in the morning. 30 Capsule 4 04/19/20 24 Discontinu ed(Refill) documented as of this encounter (statuses as of 04/19/2024) Active Problems Problem Noted Date Diagnosed Date [...] from 2018 Atherosclerotic heart diseas e of [place] coronary artery without angina pectoris 05/31/2020 CKD [...] as of this encounter (statuses as of 04/19/2024) Resolved Problems Problem Noted Date Diagnosed Date [...] chronic kidney disease 08/03/2023 08/03/2023 Atherosclerosis of [place] co ronary artery without angina pectoris 02/01/2023 [...] PL and AMP Hypertensive heart disease w [facility] heart failure and stage 3 chronic [...] as of this encounter (statuses as of 04/19/2024) Immunizations Name Administration Dates Next Due COVID-19 mRNA, LNP-s, No Pre serve, 2-Dose Series (DefenCall) 08/15/2021,01/31/2021,01/03/2021 COVID-19, LNP-s, No Preserve , Ruslan-sucrose, Ages 12+ (Pfizer) 03/19/2022 COVID-19, MRNA-LNP, 23-24, P F, 30 MCG/0.3 mL, 12 YRS AND ABOVE, IM (PFIZER-Comirnat) 10/25/2023 Covid-19, Mrna, Lnp-s, Pf, B ivalent, 30 Mcg, IM, 12 yrs and above (Pfizer) 2022 Pneumococcal Conjugate Vacc, 13 Valent (Prevnar) 01/21/2016 Pneumococcal Conjugate Vacci ne, 20-valent ([id number]) 07/19/2023 Pneumococcal Polysaccharide PPV23 (Pneumovax) 01/13/2011 RSV [...] Sign Reading Time Taken Comments Blood Pressure 130/72 04/19/2024 11:21 AM EDT Pulse - - Temperature - - Respiratory Rate - - Oxygen Saturation - - Inhaled Oxygen Concentration - - Weight 67.6 kg (149 lb) 04/19/2024 11:21 AM EDT Height - - Body Mass Index 23.34 03/27/2024 2:23 PM EDT documented in this encounter Functional [...] as of this encounter Progress Notes * Roslyn Moulton MD - 04/19/2024 10:49 AM EDT Kennedy Davis is a 78 year old male. No chief complaint on file. HPI:Kennedy Davis is a 78 year old male seen as hospital discharge,He was last seen in the Nephrology office by Dr Gunn on 03/13/24. PMH-Hypertension, hyperlipidemia, erythema nodosum and positive ANCA.He has history of mediastinal lymphadenopathy. The EBUS in December 26 showed suspected sarcoidosis. Was admitted at [facility] with concern for pulmonary renal syndrome. Renal biopsy was suggestive of acute tubular necrosis and required dialysis but the renal function improved and has [...] in July 2023 was treated with dexamethasone. -patient was hospitalized 02/26/2023 with painful feet thought to be due to acute gout attack.>> Now on Allopurinol , Stable Last visit was 03/13/24.--[facility] admission w(03/18-03/23) sepsis 2/ cat bite, and hypocalcemia, Cr Peaked at 3.6,, 4.4 on the most recent labs ( 04/10), Completed abx ( Augmentin and doxycycline 03/31 -. Legs are slightly swollen which is chronic.On PRN Furosemide. No urinary symptoms. On 7.5 mg prednisolone. 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 ([facility]) Atherosclerosis of renal artery ([facility]) Chronic intestinal vascular insufficiency (HCC) History of sepsis Heart failure ([facility]) Cat bite Current chronic use of systemic steroids Chronic heart failure with preserved ejection fraction (HFpEF) ([facility]) Iron deficiency anemia Hypocalcemia 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 180 Each 3 predniSONE 5 MG Oral Tablet (Deltasone) Take 1 AND 1/2 tablets by mouth every morning Do not start before March 10, 2024. 135 Tablet 4 Albuterol Sulfate 108 (90 Base) MCG/ACT Inhalation Aerosol Powder Breath Activated Inhale 2 Puffs by mouth every 4 hours as needed for Shortness of Breath. 1 Each 5 Calcitriol 0.5 MCG Oral Capsule (Rocaltrol) Take 1 Capsule by mouth in the morning. 30 Capsule 0 Furosemide 20 MG Oral Tablet (Lasix) Take 1 Tablet by mouth daily as needed (lower extremity edema). 30 Tablet 11 Allopurinol 100 MG Oral Tablet (Zyloprim) Take 1.5 (1 and 1/2) Tablets by mouth in the morning. 45 Tablet 5 No current facility-administered medications for this visit. Past Medical History: Diagnosis Date Abdominal aortic aneurysm (AAA) without rupture ([facility]) 07/11/2015 09/01/16: 3.78cm - repeat 1 yr 01/27/16: US: 3.87cm AAA - repeat 6 months 07/11/15: sts he had an US in the past - will check records Acute pancreatitis 03/09/2018 LIZZ (acute kidney injury) ([facility]) 06/26/2018 Aspergillosis ([facility]) 07/17/2019 history of Aspergillosis on the note on 3.[address] and AMP ATN (acute tubular necrosis) ([facility]) Bilateral pneumonia 08/08/2019 Acute, resolved? 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 Community acquired pneumonia 05/30/2019 COPD (chronic obstructive pulmonary disease) ([facility]) Diet-controlled diabetes mellitus ([facility]) 03/03/2021 Encounter for long-term (current) use of medications 09/06/2018 Enteritis 10/09/2017 Erythema nodosum Esophageal reflux Heart failure with acute decompensation, type unknown ([facility]) 06/07/2019 Herpes zoster without mention of complication History of pneumonia 06/22/2018 B/l PNA 06/2018 Hyperkalemia 12/16/2021 Hypertensive heart disease with heart failure and stage 5 chronic kidney disease, not on chronic dialysis ([facility]) 08/22/2019 ckd 4 ? Hypoglycemia associated [...] performed by Dominguez Aguilar MD at OR [facility] COLONOSCOPY, DIAGNOSTIC (RECTUM) 09/04/2015 Internal hemorrhoids, 5 yr recall COLONOSCOPY FLEXIBLE PROXIMAL DIAGNOSTIC performed by Yudelka Hopkins DO at ENDOSCOPY [facility] COLONOSCOPY, DIAGNOSTIC (RECTUM) 01/05/2018 diverticulosis sigmoid colon/internal hemorrhoids/recall 5 years/COLONOSCOPY FLEXIBLE PROXIMAL DIAGNOSTIC performed by Farrukh Gilliam MD at ENDOSCOPY [facility] EGD, FLEXIBLE, DIAGNOSTIC N/A 01/05/2018 hiatal hernia/normal/ESOPHAGOGASTRODUODENOSCOPY (EGD), FLEXIBLE, TRANSORAL, DIAGNOSTIC performed byFarrukh Gilliam MD at ENDOSCOPY [facility] INSER CHU CAT,W/O PUMP;5YR/OLD N/A 06/16/2019 INSERT TUNNELED CENTRAL VENOUS CATHETER AGE 5 OR OLDER performed by Vickey Woodruff MD at OR [facility] INSERTION OF LENS PROSTHESIS Left 05/02/2020 IR VENOUS ACCESS NON-MEDIPORT 10/24/2019 OTHER (INFORMATION) Removal of basal cell carcimoma from the back. REPAIR INITIAL INGUINAL HERNIA REDUCIBLE AGE 5 OR MORE Left 2009 REPAIR INITIAL INGUINAL HERNIA REDUCIBLE AGE 5 OR MORE Right 02/07/2019 REPAIR INITIAL INGUINAL HERNIA REDUCIBLE AGE 5 OR MORE performed by Jonathan Correia DO at OR [facility] Review of patient's allergies indicates: Allergen Reactions Iodinated Contrast Media Abdominal pain Acute kidney failure Azactam [Aztreonam] Hives Ciprofloxacin Diarrhea Cephalosporins Rash Chlorhexidine Hives and Rash Levofloxacin Rash Family History Problem Relation Name Age of Onset No Past Hx Mother at 97 Heart attack Father 84 Other (unknown cause of ) Sister Linda Berrios Osteoporosis Sister Emmanuelle Renal Hx Sister Emmanuelle Osteoporosis Sister Lakemore Renal Hx Sister Vicky Heart Disorder Brother Martin CAD started in his late 70's Diabetes Brother Martin Heart attack Brother Martin Diabetes Brother Kelly Other (PVD) Brother Kelly Perpheral vasc dz Gastro-intestinal disorder Brother Homero at 85 from liver cirrhosis - non-ETOH Cancer Brother Donnell in his late 70's from throat cancer Other (Other) Brother Michi at a couple of months from pneumonia Other (unknown cause of ) Brother Morales Family Status Relation Status Mo Fa Sis Natural causes Sis Alive Breast CA Sis Alive No problems Bro Alive Bro Bro Bro Bro Bro Social History Socioeconomic History Marital status: Spouse name: Karen Number of children: 4 Years of education: 10 Highest education level: Not on file Occupational History 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: [employer] Tobacco Use Smoking status: Former Current packs/day: 0.00 Average packs/day: 1 pack/day for 1 year (1.0 ttl pk-yrs) Types: Cigarettes Start date: 1964 Quit date: 1965 Years since quittin.4 Smokeless tobacco: Never Tobacco comments: quit smoking [...] Social Determinants of Health Financial Resource Strain: Not on file Food Insecurity: No Food Insecurity (01/31/2024) Hunger Vital Sign Worried About Running Out of Food in the Last Year: Never true Ran Out of Food in the Last Year: Never true Transportation Needs: Not on file Physical Activity: Not on file Stress: Not on file Social Connections: Not on file Intimate Partner Violence: Not on file Housing Stability: Not on file General ROS: negative for - chills or [...] stroke symptoms Dermatological ROS: negative for rash Objective: There were no vitals taken for this visit. PHYSICAL EXAM: GENERAL: Alert, in no acute distress. EYES: PERRL, conjunctivae anicteric. ENT: Mucous membranes moist, oropharynx clear. NECK: Supple, no JVD. LYMPH: No cervical or supraclavicular lymphadenopathy. LUNGS: Clear to auscultation bilaterally, no respiratory distress. CARDIAC: Regular rate and rhythm, normal S1/S2, no murmurs, rubs, or gallops. ABDOMEN: Soft, non-tender, non-distended, bowel sounds present. EXT/MSK: No clubbing, cyanosis, or edema. SKIN: No rash, no jaundice. NEURO: No tremor, no asterixis BP Readings from Last 5 Encounters: 03/31/24 100/60 03/27/24 104/64 03/23/24 152/72 03/17/24 135/69 03/13/24 115/56 Wt Readings from Last 5 Encounters: 03/31/24 73.3 kg (161 lb 9.6 oz) 03/27/24 74.1 kg (163 lb 4.8 oz) 03/23/24 73.8 kg (162 lb 11.2 oz) 03/17/24 70.8 kg (156 lb) 03/13/24 71 kg (156 lb 9.6 oz) ASSESSMENT: CKD (chronic kidney disease) stage 4, GFR 15-29 ml/min ([facility]) Patient with the CKD stage 4 due to multiple episodes of acute kidney injury. Renal biopsy was consistent with acute tubular necrosis. Patient required dialysis between July 2019 to October 2019. He has since recovered renal function. Patient had acute kidney injury during hospitalization on 12/16/2021 and required CRRT but again recovered renal function. Recent creatinine of 4.4 which is higher than his prior baseline. , likley 2/ Toxic ATN. Electrolytes are stable with no signs of volume overload. He knows to avoid NSAIDs and maintain a low-sodium diet. Continue to wear compression stockings. Drink 45 -55 oz of fluids daily - start sodium bicarbonate 650 mg BID 2 weekly BMP, f/u w Dr Gunn on 08/10 Renal osteodystrophy He will continue calcium and Calcitriol . He also receives prolia from ortho clinic. He needs closure monitoring of MBD at the time he gets Prolia. HTN, goal below 140/90 Blood pressure is controlled on current regimen. No changes. Anemia in stage 4 chronic kidney disease (HCC) Recent hemoglobin of 10.3 . No changes. Hyperuricemia On allopurinol. F/w Rheumatology. RTC with Dr Gunn as planned on 08/10,Earlier if Renal functions are not improving with 2 Weekly( has standing orders, by Rheumatology) Roslyn Moulton MD This chart was completed in part utilizing [employer] Speech Voice Recognition Software. Randomword insertions, pronoun errors, and incomplete sentences are an occasional consequence of this system due to software limitations, and ambient noise. Any questions or concerns about the content, text, or information contained within the body of this dictation should be directly addressed to the provider for clarification. documented in this encounter Nursing Notes * Eugenia Bradford LPN - 04/19/2024 11:19 AM EDT Chief Complaint Patient presents with Follow Up documented in this encounter Plan of Treatment Upcoming Encounters Date Type Department Care Team (Late st Contact Info) Description 04/24/2024 2:00 PM EDT PulmDiagnostic Pulmonary Function Lab, [address] [place] [address] [facility], Pulm Function Room [address] [place] [address] [place] [address] 07/17/2024 8:00 AM EDT Office Visit Rheumatology, [address] [place] [address] Perry Tate MD [facility]0 [facility] [place] [address] 07/24/2024 2:30 PM EDT [facility] [address] [place] [address] Malaika Guzman PA-C 27 [facility] [address] [place] [address] 08/14/2024 11:00 AM EDT Office Visit Nephrology, [address] [address] Keisha Gunn MD [address] [place] [address] 08/21/2024 2:00 PM EDT Office Visit [facility] [address] [place] [phone] Fuentes Ashton MD 21 [place] [address] 01/22/2025 1:30 PM EDT PulmDiagnostic Pulmonary Function Lab [facility] [address] [address] [place], [address] [facility] [place] [address] 01/22/2025 2:00 PM EDT Office Visit Pulmonary Medicine [facility] [address] [phone] Dominguez Aguilar MD [address] [address] Scheduled Procedures Name Priority Associated Diagnoses Date/Ti [...] 110 12/2022, 05/18/2023, Additional history exists GFR 10/10/2024 [...] this encounter Medical Devices Implanted Type Area Heel Nailing Machine Operator Device Identifier Shelf Expiration Date Model / Serial / Lot Mesh Perfix Plug Lg [id number] - [id number] Implanted:Qty: 1 on 02/07/2019 by Jonathan Correia, DO at OR [facility] Right: Groin CR BARD : DAVOL 09/04/2023 [id number] / / [id number] documented as of this encounter Visit Diagnoses Diagnosis Anemia in stage 4 chronic kidney disease (HCC)- Primary Renal osteodystrophy HTN, goal below 140/90 Unspecified essential hypertension documented in this encounter Advance Directives Documents on File Type Date Recorded 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
--- OUTSIDE RECORDS SUMMARY | 2024-09-30 18:27 | External Medical Summary | Summary of Care ---
Author Name Unknown Organization [facility] Address [address] [place] [address] Phone [phone] Care Team Providers Care Drum Sander Offbearer Name Role Phone Fuentes Ashton MD Primary Care Provider [phone] Reason for Referral * Precert (Within 10 days (routine)) - Authorized Specialty Diagnoses / Procedures Referred By Contac t Referred To Contact Radiology Diagnoses 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HCC) Mediastinal lymphadenopathy Recurrent fever History of fungal pneumonia Procedures CT CHEST WO CONTRAST Steve Polo MD [address] [facility] [place] [address] Referral ID Status Reason Start Date Expiration Date V isits Requested Visits Authorized [id number] Authorized 04/05/2024 06/04/2024 999 999 Reason for Visit * Reason Onset Date Comments Test Results 04/04/2024 F/U 04/10 CT chest Encounter Details Date Type Department Care Team (Late st Contact Info) Description 04/04/2024 Telephone Pulmonary Medicine Ahmet Downing [address] [phone] Dominguez Aguilar MD [address] [address] Test Results (F/U 04/10 CT chest) Allergies [...] ons:COPD, group C, by GOLD 2017 classification ([facility]) inhale contents of 1 vial [...] from 2018 Atherosclerotic heart diseas e of [place] coronary artery without angina pectoris 05/31/2020 CKD (chronic kidney disease) stage 4, GFR 15-29 ml/min 07/17/2019 Chronic anticoagulation 04/03/2019 Vitamin D deficiency 11/17/2018 Senile osteoporosis 09/06/2018 Paroxysmal atrial fibrillation 07/08/2018 Last Assessment & Plan: Rate controlled on metoprolol Continue apixaban History of acute tubular necrosis 06/29/2018 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 IPMN (intraductal papillary mucinous neoplasm) 0 03/09/2018 Overview: 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 [...] chronic kidney disease 08/03/2023 08/03/2023 Atherosclerosis of [place] co ronary artery without angina pectoris 02/01/2023 [...] Cachexia 08/30/2019 05/31/2020 Hypertensive heart disease w [facility] heart failure and stage 5 [...] PL and AMP Hypertensive heart disease w [facility] heart failure and stage 3 [...] mRNA, LNP-s, No Pre serve, 2-Dose Series (AdventEnna) 08/15/2021,01/31/2021,01/03/2021 COVID-19, LNP-s, No Preserve , Ruslan-sucrose, Ages 12+ (Pfizer) 03/19/2022 COVID-19, MRNA-LNP, 23-24, P F, 30 MCG/0.3 mL, 12 YRS AND ABOVE, IM ([facility]) 10/25/2023 Covid-19, Mrna, Lnp-s, Pf, B ivalent, 30 Mcg, IM, 12 yrs and above (AdventEnna) 2022 Pneumococcal Conjugate Vacc, 13 Valent (Prevnar) 01/21/2016 Pneumococcal Conjugate Vacci ne, 20-valent ([id number]) 07/19/2023 Pneumococcal Polysaccharide PPV23 (Pneumovax) 01/13/2011 RSV [...] the patient to call the office at [phone] in regards to below message from Dr. [...] seems weak, but not acutely ill. In [id number] he had penicillium species isolate on bronch, [...] Description 04/19/2024 11:20 AM EDT Office Visit Francisco Norris [address] [facility] [place] [address] Roslyn Moulton MD [address] [place] [address] 04/24/2024 2:00 PM EDT PulmDiagnostic Pulmonary Function Lab, [address] [address] [place], Pulm Function Room [address] [place] [address] 07/17/2024 8:00 AM EDT Office Visit Rheumatology, [address] [address] Perry Tate MD [address] [place] [address], [place] [address] 07/24/2024 2:30 PM EDT [facility] 140 [place] [address] Malaika Guzman PA-C 27 [facility] 140 [place] [address] 08/14/2024 11:00 AM EDT Office Visit Nephrology, [address] [address] Keisha Gunn MD [address] [place] [address] 08/21/2024 2:00 PM EDT Office Visit Family [facility] 21 [facility] [place] [phone] Fuentes Ashton MD 21 [facility] [place] [address] 01/22/2025 1:30 PM EDT PulmDiagnostic Pulmonary Function Lab [facility] [place] [address] [address] [place], [address] [place] [address] 01/22/2025 2:00 PM EDT Office Visit Pulmonary Medicine Butch Downingwn [address] [phone] Dominguez Aguilar MD [address] [address] Scheduled Procedures Name Priority Associated Diagnoses Date/Ti [...] encounter Medical Devices Implanted Type Area Manager Purchasing Device Identifier Shelf Expiration Date Model / Serial / Lot Mesh Perfix Plug Lg [id number] - [id number] Implanted:Qty: 1 on 02/07/2019 by Jonathan Correia DO at OR [facility] Right: Groin CR BARD : DAVOL 09/04/2023 [id number] / / [id number] documented as of this encounter Procedures Procedure [...] Documents on File Type Date Recorded Patient Benefit Authorizer Expl anation Advance Directives and Living Will [...] or by statute hierarchy) [facility] Adult Child Emergency Contact Care Teams Drum Sander Offbearer Relationship Specialty Start Date End Date Fuentes Ashton MD [address] [phone] PCP - General Family Medicine 01/30/22 documented as of this encounter
--- OUTSIDE RECORDS SUMMARY | 2024-09-30 18:28 | External Medical Summary | Summary of Care ---
Author Name Unknown Organization [facility] Address [address] [place] [address] Phone [phone] Care Team Providers Care Ink Printer Name Role Phone Fuentes Ashton MD Primary Care Provider [phone] [phone] Reason for Referral * Precert (Within 10 days (routine)) - Authorized Specialty Diagnoses / Procedures Referred By Contac t Referred To Contact Radiology Diagnoses 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HCC) Mediastinal lymphadenopathy Recurrent fever History of fungal pneumonia Procedures CT CHEST WO CONTRAST Steve Polo MD 21 [facility] [place] [address] Referral ID Status Reason Start Date Expiration Date V isits Requested Visits Authorized [id number] Authorized 04/05/2024 06/04/2024 999 999 Reason for Visit * Reason Onset Date Comments Test Results 04/04/2024 F/U 04/10 CT chest Encounter Details Date Type Department Care Team (Late st Contact Info) Description 04/04/2024 Telephone Pulmonary Medicine Ahmet Downing [address] [phone] Dominguez Aguilar MD [address] [address] Test Results (F/U 04/10 CT chest) Allergies Active Allergy Reactions Criticality Noted Date Comments Aztreonam Hives Medium 10/11/2019 Cephalosporins Rash 05/24/2017 Chlorhexidine Hives,Rash 01/02/2022 Ciprofloxacin Diarrhea Medium 01/28/2015 Iodinated Contrast Media Abdominal pain High 019 Acute kidney failure Levofloxacin Rash Low 07/28/2019 documented as of this encounter (statuses as of 04/12/2024) Medications Medication Sig Dispensed Refills Start Date [...] 2017 classification ([facility]) inhale contents of 1 vial [...] as of this encounter (statuses as of 04/12/2024) Active Problems Problem Noted Date Diagnosed Date [...] from 2018 Atherosclerotic heart diseas e of [place] coronary artery without angina pectoris 05/31/2020 CKD [...] as of this encounter (statuses as of 04/12/2024) Resolved Problems Problem Noted Date Diagnosed Date [...] chronic kidney disease 08/03/2023 08/03/2023 Atherosclerosis of [place] co ronary artery without angina pectoris 02/01/2023 [...] 05/31/2020 Hypertensive heart disease w [facility] heart failure and stage 5 chronic [...] AMP Hypertensive heart disease w [facility] heart failure and stage 3 [...] as of this encounter (statuses as of 04/12/2024) Immunizations Name Administration Dates Next Due COVID-19 mRNA, LNP-s, No Pre serve, 2-Dose Series ([employer]) 08/15/2021,01/31/2021,01/03/2021 COVID-19, LNP-s, No Preserve , Ruslan-sucrose, Ages 12+ (Pfizer) 03/19/2022 COVID-19, MRNA-LNP, 23-24, P F, 30 MCG/0.3 mL, 12 YRS AND ABOVE, IM ([facility]) 10/25/2023 Covid-19, Mrna, Lnp-s, Pf, B ivalent, 30 Mcg, IM, 12 yrs and above ([employer]) 2022 Pneumococcal Conjugate Vacc, 13 Valent (Prevnar) 01/21/2016 Pneumococcal Conjugate Vacci ne, 20-valent ([id number]) 07/19/2023 Pneumococcal Polysaccharide PPV23 (Pneumovax) 01/13/2011 RSV [...] the patient to call the office at [phone] in regards to below message from Dr. [...] seems weak, but not acutely ill. In [phone] he had penicillium species isolate on bronch, [...] 04/19/2024 11:20 AM EDT Office Visit NephrologyFrancisco [address] [facility] [place] [address] Roslyn Moulton MD [address] [place], [place] [address] [address] 04/24/2024 2:00 PM EDT PulmDiagnostic Pulmonary Function Lab, [address] [address] Gl, Pulm Function Room [address] [place] [address] [place] [address] 07/17/2024 8:00 AM EDT Office Visit Rheumatology, [address] [place] [address] Perry Tate MD [facility] [place] [address] 07/24/2024 2:30 PM EDT Office Visit Dermatology, [facility] 27 [facility] [address] [place] [address] Malaika Guzman PA-C 27 [facility] [address] [place] [address] 08/14/2024 11:00 AM EDT Office Visit Nephrology, [address] [address] Keisha Gunn MD [address] [place] [address] 08/21/2024 2:00 PM EDT Office Visit [facility] 21 [facility] [phone] Fuentes Ashton MD 21 [place] [address] 01/22/2025 1:30 PM EDT PulmDiagnostic Pulmonary Function Lab [facility] 217 [facility] [place] [address] [address], [address] [place] [address] 01/22/2025 2:00 PM EDT Office Visit Pulmonary Medicine Ahmet Downing [address] [address] Dominguez Aguilar MD [address] [address] Pending Results Name Type Priority Associated Diagnoses [...] 01/31/2024, 11/12/2022, 05/18/2023, Additional history exists GFR 10/10/2024 04/10/2024, [...] this encounter Medical Devices Implanted Type Area Retort Furnace Operator Device Identifier Shelf Expiration Date Model / Serial / Lot Mesh Perfix Plug Lg [id number] - [id number] Implanted:Qty: 1 on 02/07/2019 by Jonathan Correia DO at OR [facility] Right: Groin CR BARD : DAVOL 09/04/2023 [id number] / / [id number] documented as of this encounter Visit Diagnoses Diagnosis 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HCC)- Primary Other specified disorders of arteries and arterioles Mediastinal lymphadenopathy Enlargement of lymph nodes Recurrent fever Relapsing fever, unspecified History of fungal pneumonia documented in this encounter Advance Directives Documents on File Type Date Recorded 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
--- OUTSIDE RECORDS SUMMARY | 2024-09-30 18:28 | External Medical Summary ---
Author Name Unknown Address Unknown Organization K01:[place] [place] [address] [facility] [facility] [address] [place] [address] Laboratory Report Ordering Provider Test Date Status JOSELO VIDES 04/10/2024 09:59:28 Final Observation Date Value Abnormality Reference (Units ) Status WBC, Total 04/10/2024 09:59:28 11.61 Above high normal 4.00-10.80 (K/uL) Final RBC 04/10/2024 09:59:28 3.69 4.50-5.25 (M/uL) Final Hemoglobin 04/10/2024 09:59:28 10.3 Below low normal 14.0-16.8 (g/dL) Final HCT 04/10/2024 09:59:28 35.3 Below low normal 40.0-48.4 (%) Final MCV 04/10/2024 09:59:28 95.7 82.0-99.5 (fL) Final MCH 04/10/2024 09:59:28 27.9 27.0-34.0 (pg) Final MCHC 04/10/2024 09:59:28 29.2 32.0-36.0 (g/dL) Final RDW 04/10/2024 09:59:28 18.1 11.5-15.5 (%) Final Platelets 04/10/2024 09:59:28 213 140-400 (K/uL) Final MPV 04/10/2024 09:59:28 11.9 6.6-11.1 (fL) Final Nucleated erythrocytes/100 leukocytes [Ratio] in Blood by Automated count 04/10/2024 09:59:28 0 <=0 (/100 WBCs) Final Performing Location LABORATORY C - [address] [place] [address]
--- OUTSIDE RECORDS SUMMARY | 2024-09-30 18:28 | External Medical Summary | Summary of Care ---
Author Name Unknown Organization [facility] Address [address] [place] [address] Phone [phone] Care Team Providers Care Corrections Sergeant Name Role Phone Fuentes Ashton MD Primary Care Provider [phone] [phone] Reason for Visit * Reason Comments Outpatient Testing Encounter Details Date Type Department Care Team (Late st Contact Info) Description 04/10/2024 10:00 AM EDT Laboratory Laboratory, [place] [address] [place] [address] [place], Lab [address] [place] [address] Chronic gout due to renal impairment of multiple sites without tophus Allergies Active Allergy Reactions Criticality Noted Date Comments Aztreonam Hives Medium 10/11/2019 Cephalosporins Rash 05/24/2017 Chlorhexidine Hives,Rash 01/02/2022 Ciprofloxacin Diarrhea Medium 01/28/2015 Iodinated Contrast Media Abdominal pain High 019 Acute kidney failure Levofloxacin Rash Low 07/28/2019 documented as of this encounter (statuses as of 04/10/2024) Medications Medication Sig Dispensed Refills Start Date [...] Delayed Release (PriLOSEC)Indicatio ns:Gastroesophageal reflux disease without esophagitis,technician terminal and repeater [...] Activated (ANORO ellipta)Indications :COPD, moderate ([facility]) Inhale 1 Puff by mouth in the [...] of Breath. 1 Each 5 03/03/2024 Active Calcitriol 0.5 MCG Oral Capsule (Rocaltrol) Take 1 Capsule by mouth in the morning. 30 Capsule 03/23/2024 Active Furosemide 20 MG Oral Tablet (Lasix)Indications: Bilateral lower extremity edema Take 1 Tablet by mouth daily as needed (lower extremity edema). 30 Tablet 11 03/31/2024 Active Allopurinol 100 MG Oral Tablet (Zyloprim) Take 1.5 (1 and 1/2) Tablets by mouth in the morning. 45 Tablet 5 04/04/2024 Active documented as of this encounter (statuses as of 04/10/2024) Active Problems Problem Noted Date Diagnosed Date [...] [place] coronary artery without angina pectoris 05/31/2020 CKD [...] as of this encounter (statuses as of 04/10/2024) Resolved Problems Problem Noted Date Diagnosed Date [...] as of this encounter (statuses as of 04/10/2024) Immunizations Name Administration Dates Next Due COVID-19 mRNA, LNP-s, No Pre serve, 2-Dose Series ([employer]) 08/15/2021,01/31/2021,01/03/2021 COVID-19, LNP-s, No Preserve , Ruslan-sucrose, Ages 12+ (Pfizer) 03/19/2022 COVID-19, MRNA-LNP, 23-24, P F, 30 MCG/0.3 mL, 12 YRS AND ABOVE, IM ([employer]-Comir[employer]) 10/25/2023 Covid-19, Mrna, Lnp-s, Pf, B ivalent, 30 Mcg, IM, 12 yrs and above ([employer]) 2022 Pneumococcal Conjugate Vacc, 13 Valent (Prevnar) 01/21/2016 Pneumococcal Conjugate Vacci ne, 20-valent ([id number]) 07/19/2023 Pneumococcal Polysaccharide PPV23 (Pneumovax) 01/13/2011 RSV [...] Care Team (Late st Contact Info) Description 04/10/2024 1:30 PM EDT Appointment Radiology, [address] [place] [address] 04/19/2024 11:20 AM EDT Office Visit Nephrology, [address] [place] [address] Roslyn Moulton MD [address] [place] [address] [place] [address] 04/24/2024 2:00 PM EDT PulmDiagnostic Pulmonary Function Lab, [address] [address] Gl, Pulm Function Room [address] [place], [place] [address] [address] 07/17/2024 8:00 AM EDT Office Visit Rheumatology, [address] [place] [address] Perry Tate MD [facility], [place] [address] 07/24/2024 2:30 PM EDT [facility] [place] [address] [place] [address] Malaika Guzman PA-C 27 [facility] [place] [address] [place] [address] 08/14/2024 11:00 AM EDT Office Visit Nephrology, [address] [address] Keisha Gunn MD 400 [place] [address] 08/21/2024 2:00 PM EDT Office Visit [facility] [address] [place] [phone] Fuentes Ashton MD 21 [facility] [address] 01/22/2025 1:30 PM EDT PulmDiagnostic Pulmonary Function Lab [facility] [address] [address] [address], [address] [place] [address] 01/22/2025 2:00 PM EDT Office Visit Pulmonary Medicine [facility] [address] [phone] Dominguez Aguilar MD [address] [address] Pending Results Name Type Priority Associated Diagnoses Date /Time URIC ACID Lab Routine Chronic gout due to renal impairment of multiple sites without tophus 04/10/2024 9:59 AM EDT CBC WITH WBC DIFFERENTIAL Lab Routine Chronic gout due to renal impairment of multiple sites without tophus 04/10/2024 9:59 AM EDT COMPREHENSIVE METABOLIC PANEL Lab Routine Chronic gout due to renal impairment of multiple sites without tophus 04/10/2024 9:59 AM EDT CBC Lab Routine Chronic gout due to renal impairment of multiple sites without tophus 04/10/2024 9:59 AM EDT DIFFERENTIAL, AUTOMATED Lab Routine Chronic gout due to renal impairment of multiple sites without tophus 04/10/2024 9:59 AM EDT Scheduled Procedures Name Priority Associated [...] 110 12/2022, 05/18/2023, Additional history exists GFR 09/27/2024 03/27/2024, 03/08, 03/22/2024, Additional history exists TSH 01/30/2025 01/31/2024, 01/07, [...] this encounter Medical Devices Implanted Type Area Fancy Sewer Device Identifier Shelf Expiration Date Model / Serial / Lot Mesh Perfix Plug Lg [id number] - [id number] Implanted:Qty: 1 on 02/07/2019 by Jonathan Correia DO at OR [facility] Right: Groin CR BARD : MARIE 09/04/2023 [id number] / / [id number] documented as of this encounter Visit Diagnoses Diagnosis 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
--- OUTSIDE RECORDS SUMMARY | 2024-09-30 18:28 | External Medical Summary | Summary of Care ---
Author Name Unknown Organization [facility] Address [address] [place] [address] Phone [phone] Care Team Providers Care Ui Ux Developer Name Role Phone Fuentes Ashton MD Primary Care Provider [phone] Reason for Referral * Precert (Within 10 days (routine)) - Pending Review Specialty Diagnoses / Procedures Referred By Contac t Referred To Contact Radiology Diagnoses 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HCC) Mediastinal lymphadenopathy Recurrent fever History of fungal pneumonia Procedures CT CHEST WO CONTRAST Steve Polo MD 21 [place] [address] Referral ID Status Reason Start Date Expiration Date V isits Requested Visits Authorized [id number] Pending Review 04/04/2024 999 999 Reason for Visit * Reason Onset Date Comments Test Results 04/04/202404/04 Encounter Details Date Type Department Care Team (Late st Contact Info) Description 04/04/2024 Telephone Pulmonary Medicine Ahmet Downing [address] [phone] Dominguez Aguilar MD [address] [address] Test Results (04/04) Allergies Active Allergy Reactions Criticality Noted Date Comments Aztreonam Hives Medium 10/11/2019 Cephalosporins Rash 05/24/2017 Chlorhexidine Hives,Rash 01/02/2022 Ciprofloxacin Diarrhea Medium 01/28/2015 Iodinated Contrast Media Abdominal pain High 019 Acute kidney failure Levofloxacin Rash Low 07/28/2019 documented as of this encounter (statuses as of 04/05/2024) Medications Medication Sig Dispensed Refills Start Date [...] (PriLOSEC)Indicatio ns:Gastroesophageal reflux disease without esophagitis,long term (current) use of systemic steroids Take by [...] GOLD 2017 classification ([facility]) inhale contents of 1 vial ( [...] in the morning. 30 Capsule 03/23/2024 Active Azithromycin 250 MG Oral Tablet (Zithromax)Indicati ons:Low grade fever,History of sepsis,History of fungal pneumonia Take 2 tabs by mouth on the first day, then 1 tab daily on days two through five 6 Tablet 03/31/2024 04/05/20 24 Active Furosemide 20 MG Oral Tablet (Lasix)Indications: Bilateral lower extremity edema Take 1 Tablet by mouth daily as needed (lower extremity edema). 30 Tablet 11 03/31/2024 Active Allopurinol 100 MG Oral Tablet (Zyloprim) Take 1.5 (1 and 1/2) Tablets by mouth in the morning. 45 Tablet 5 04/04/2024 Active documented as of this encounter (statuses as of 04/05/2024) Active Problems Problem Noted Date Diagnosed Date [...] from 2018 Atherosclerotic heart diseas e of [place] coronary artery without angina pectoris 05/31/2020 CKD (chronic kidney disease) stage 4, GFR 15-29 ml/min 07/17/2019 Chronic anticoagulation 04/03/2019 Vitamin D deficiency 11/17/2018 Senile osteoporosis 09/06/2018 Paroxysmal atrial fibrillation 07/08/2018 Last Assessment & Plan: Rate controlled on metoprolol Continue apixaban History of acute tubular necrosis 06/29/2018 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 IPMN (intraductal papillary mucinous neoplasm) 0 03/09/2018 Overview: MRI 02/23 long term (current) use of systemic steroids Steroid-induced diabetes [...] as of this encounter (statuses as of 04/05/2024) Resolved Problems Problem Noted Date Diagnosed Date [...] chronic kidney disease 08/03/2023 08/03/2023 Atherosclerosis of [place] co ronary artery without angina pectoris 02/01/2023 [...] Cachexia 08/30/2019 05/31/2020 Hypertensive heart disease w [facility] heart failure and stage 5 [...] AMP Hypertensive heart disease w [facility] heart failure and stage 3 [...] stage 3 chronic kidney disease 07/29/2018 07/17/2019 ILZZ (acute kidney injury) 06/26/2018 History of respiratory [...] as of this encounter (statuses as of 04/05/2024) Immunizations Name Administration Dates Next Due COVID-19 mRNA, LNP-s, No Pre serve, 2-Dose Series ([employer]) 08/15/2021,01/31/2021,01/03/2021 COVID-19, LNP-s, No Preserve , Ruslan-sucrose, Ages 12+ ([employer]) 03/19/2022 COVID-19, MRNA-LNP, 23-24, P F, 30 MCG/0.3 mL, 12 YRS AND ABOVE, IM ([employer]) 10/25/2023 Covid-19, Mrna, Lnp-s, Pf, B ivalent, 30 Mcg, IM, 12 yrs and above ([employer]) 2022 Pneumococcal Conjugate Vacc, 13 Valent (Prevnar) 01/21/2016 Pneumococcal Conjugate Vacci ne, 20-valent ([id number]) 07/19/2023 Pneumococcal Polysaccharide PPV23 (Pneumovax) 01/13/2011 RSV [...] 09/23/2022,07/19/2019 TDAP (age 10 and older)(Boostrix) 04/23/2023 TDAP (age 11 and older)(Adacel) 03/23/2013,11/27 Zoster Vaccine Recombinant (Shingrix) 05/05/2021 ,03/03/2021 documented [...] the patient to call the office at [phone] in regards to below message from Dr. Polo. * Telephone Encounter - Steve Polo MD - 04/04/2024 2:57 PM EDT Please advise pt that Dr. Aguilar wants to start with repeat CT scan next, then proceed based on results. Order signed. Thanks! Steve Polo MD, ANTWON [facility] Phys[facility] * Telephone Encounter - Emma Adorno LPN [...] seems weak, but not acutely ill. In [id number] he had penicillium species isolate on bronch, [...] Description 04/10/2024 1:30 PM EDT Appointment Radiology, [address] [address] 04/19/2024 11:20 AM EDT Office Visit Nephrology, [address] [address] Roslyn Moulton MD [address] [place] [address] 04/24/2024 2:00 PM EDT PulmDiagnostic Pulmonary Function Lab, [address] [address] Gl, Pulm Function Room [address] [place] [address] 07/17/2024 8:00 AM EDT Office Visit Rheumatology, [address] [address] Perry Tate MD [address] [place] [address], [place] [address] 07/24/2024 2:30 PM EDT [facility] 27 [facility] [address] [place] [address] Malaika Guzman PA-C 27 [facility] [address] [place] [address] 08/14/2024 11:00 AM EDT Office Visit Nephrology, [address] [place] [address] Keisha Gunn MD 400 [place] [address] 08/21/2024 2:00 PM EDT Office Visit [facility] [phone] Fuentes Ashton MD 21 [place] [address] 01/22/2025 1:30 PM EDT PulmDiagnostic Pulmonary Function Lab [facility] [address] [address] [address], [address] [facility] [place] [address] 01/22/2025 2:00 PM EDT Office Visit Pulmonary Medicine [facility] [address] [phone] Dominguez Aguilar MD [address] [address] Scheduled Orders Name Type Priority Associated Diagnoses Orde r Schedule CT CHEST WO CONTRAST Medical Imaging Routine 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HCC) Mediastinal lymphadenopathy Recurrent fever History of fungal pneumonia Ordered: 04/04/2024 Scheduled Procedures Name Priority Associated Diagnoses Date/Ti [...] 01/31/2024, 12/2022, 05/18/2023, Additional history exists GFR 09/27/2024 [...] this encounter Medical Devices Implanted Type Area Mash Filter Press Operator Device Identifier Shelf Expiration Date Model / Serial / Lot Mesh Perfix Plug Lg [id number] - [id number] Implanted:Qty: 1 on 02/07/2019 by Jonathan Correia DO at OR [facility] Right: Groin CR BARD : DAVOL 09/04/2023 [id number] / / [id number] documented as of this encounter Visit Diagnoses Diagnosis 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HCC)- Primary Other specified disorders of arteries and arterioles Mediastinal lymphadenopathy Enlargement of lymph nodes Recurrent fever Relapsing fever, unspecified History of fungal pneumonia documented in this encounter Advance Directives Documents on File Type Date Recorded 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
--- OUTSIDE RECORDS SUMMARY | 2024-09-30 18:28 | External Medical Summary ---
Author Name Unknown Address Unknown Organization K01:LABORATORY C - 100 [facility] [address] Laboratory Report Ordering Provider Test Date Status JOSELO VIDES 04/10/2024 09:59:28 Final Observation Date Value Abnormality Reference (Units ) Status SYNC LEUKOCYTES IN BLOOD BY AUTOMATED COUNT 04/10/2024 09:59:28 11.61 Above high normal 4.00-10.80 (K/uL) Final Neutrophils/100 leukocytes in Blood by Manual count 04/10/2024 09:59:28 77.0 Above high normal 40.0-75.0 (%) Final Lymphocytes/100 leukocytes in Blood by Manual count 04/10/2024 09:59:28 15.0 Below low normal 18.0-42.0 (%) Final Monocytes/100 leukocytes in Blood by Manual count 04/10/2024 09:59:28 3.0 1.0-11.0 (%) Final Eosinophils/100 leukocytes in Blood by Manual count 04/10/2024 09:59:28 2.0 0.0-6.0 (%) Final Metamyelocytes/100 leukocytes in Blood by Manual count 04/10/2024 09:59:28 2.0 Above high normal <=0.0 (%) Final Myelocytes/100 leukocytes in Blood by Manual count 04/10/2024 09:59:28 1.0 Above high normal <=0.0 (%) Final Neutrophils [#/volume] in Blood by Manual count 04/10/2024 09:59:28 8.94 Above high normal 1.80-7.70 (K/uL) Final Lymphocytes [#/volume] in Blood by Manual count 04/10/2024 09:59:28 1.74 1.00-4.80 (K/uL) Final Monocytes [#/volume] in Blood by Manual count 04/10/2024 09:59:28 0.35 0.00-1.10 (K/uL) Final Eosinophils [#/volume] in Blood by Manual count 04/10/2024 09:59:28 0.23 0.00-0.70 (K/uL) Final Metamyelocytes [#/volume] in Blood by Manual count 04/10/2024 09:59:28 0.23 Above high normal <=0.00 (K/uL) Final Myelocytes [#/volume] in Blood by Manual count 04/10/2024 09:59:28 0.12 Above high normal <=0.00 (K/uL) Final Neutrophils.vacuolated [Presence] in Blood by Light microscopy 04/10/2024 09:59:28 Present Abnormal None Seen Final Performing Location LABORATORY [facility] [place] - [address] [place] [facility] [place], [place] [address]
--- OUTSIDE RECORDS SUMMARY | 2024-09-30 18:28 | External Medical Summary ---
Author Name Unknown Address Unknown Organization K01:[facility] [place] [address] [place] [address] Laboratory Report Ordering Provider Test Date Status JOSELO VIDES 04/10/2024 09:59:28 Final Observation Date Value Abnormality Reference (Units ) Status BUN 04/10/2024 09:59:28 56 Above high normal 6-20 (mg/dL) Final Creatinine 04/10/2024 09:59:28 4.4 Above high normal 0.6-1.2 (mg/dL) Final Glomerular filtration rate/1.73 sq M.predicted [Volume Rate/Area] in Serum, Plasma or Blood by Creatinine-based formula (CKD-EPI) 04/10/2024 09:59:28 13 Below low normal >=60 (mL/min) Final eGFR is calculated based on the CKD-EPI 2020 equation Sodium 04/10/2024 09:59:28 133 Below low normal 135 -146 (mmol/L) Final Potassium 04/10/2024 09:59:28 4.3 3.5-5.1 (m mol/L) Final Cl 04/10/2024 09:59:28 100 98-107 (mm ol/L) Final CO2 04/10/2024 09:59:28 21 Below low normal 22- 32 (mmol/L) Final Anion gap 04/10/2024 09:59:28 12 7-15 (mmol /L) Final Glucose 04/10/2024 09:59:28 116 70-120 (mg /dL) Final Albumin 04/10/2024 09:59:28 3.6 Below low normal 3.8 -5.0 (g/dL) Final AST (Aspartate aminotransferase) 04/10/2024 09:59:28 16 10-50 (U/L) Fin al Alk Phos 04/10/2024 09:59:28 53 35-130 (U/ L) Final Bilirubin, Total 04/10/2024 09:59:28 0.3 <=1 .2 (mg/dL) Final Calcium 04/10/2024 09:59:28 9.9 8.4-10.2 ( mg/dL) Final Protein 04/10/2024 09:59:28 7.1 6.0-8.3 (g /dL) Final ALT (Alanine aminotransferase) 04/10/2024 09:59:28 14 10-50 (U/L) Everardo diaz Performing Location [facility] [place] [address] [facility] [address]
--- OUTSIDE RECORDS SUMMARY | 2024-09-30 18:28 | External Medical Summary ---
Author Name Unknown Address Unknown Organization K01:[facility] [place] [address] [place] [address] Laboratory Report Ordering Provider Test Date Status JOSELO VIDES 04/10/2024 09:59:28 Final Observation Date Value Abnormality Reference (Units ) Status Uric Acid 04/10/2024 09:59:28 6.6 3.4-7.0 (m g/dL) Final Performing Location LABORATORY C - [address] [place] [address]
--- OUTSIDE RECORDS SUMMARY | 2024-09-30 18:28 | External Medical Summary | Summary of Care ---
Author Name Unknown Organization [facility] Address [address] [place] [address] Phone [phone] Care Team Providers Care Discharge Specialist Name Role Phone Fuentes Ashton MD Primary Care Provider [phone] Reason for Referral * Precert (Within 10 days (routine)) - Authorized Specialty Diagnoses / Procedures Referred By Contac t Referred To Contact Radiology Diagnoses 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HCC) Mediastinal lymphadenopathy Recurrent fever History of fungal pneumonia Procedures CT CHEST WO CONTRAST Steve Polo MD 21 [facility] [place] [address] Referral ID Status Reason Start Date Expiration Date V isits Requested Visits Authorized [id number] Authorized 04/05/2024 06/04/2024 999 999 Reason for Visit * Reason Onset Date Comments Test Results 04/04/2024 F/U 04/10 CT chest Encounter Details Date Type Department Care Team (Late st Contact Info) Description 04/04/2024 Telephone Pulmonary Medicine Ahmet Downing [address] [phone] Dominguez Aguilar MD [address] [address] Test Results (F/U 04/10 CT chest) Allergies Active Allergy Reactions Criticality Noted Date Comments Aztreonam Hives Medium 10/11/2019 Cephalosporins Rash 05/24/2017 Chlorhexidine Hives,Rash 01/02/2022 Ciprofloxacin Diarrhea Medium 01/28/2015 Iodinated Contrast Media Abdominal pain High 019 Acute kidney failure Levofloxacin Rash Low 07/28/2019 documented as of this encounter (statuses as of 04/11/2024) Medications Medication Sig Dispensed Refills Start Date [...] Delayed Release (PriLOSEC)Indicatio ns:Gastroesophageal reflux disease without esophagitis,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 Take by [...] 2017 classification ([facility]) inhale contents of 1 vial [...] as of this encounter (statuses as of 04/11/2024) Active Problems Problem Noted Date Diagnosed Date [...] from 2018 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 05/31/2020 CKD [...] as of this encounter (statuses as of 04/11/2024) Resolved Problems Problem Noted Date Diagnosed Date [...] chronic kidney disease 08/03/2023 08/03/2023 Atherosclerosis of venetie ira co ronary artery without angina pectoris [...] 08/30/2019 05/31/2020 Hypertensive heart disease w the [facility] heart failure and stage 5 chronic [...] and AMP Hypertensive heart disease w the [facility] heart failure and stage 3 chronic [...] as of this encounter (statuses as of 04/11/2024) Immunizations Name Administration Dates Next Due COVID-19 mRNA, LNP-s, No Pre serve, 2-Dose Series ([employer]) 08/15/2021,01/31/2021,01/03/2021 COVID-19, LNP-s, No Preserve , Ruslan-sucrose, Ages 12+ (Pfizer) 03/19/2022 COVID-19, MRNA-LNP, 23-24, P F, 30 MCG/0.3 mL, 12 YRS AND ABOVE, IM ([facility]) 10/25/2023 Covid-19, Mrna, Lnp-s, Pf, B ivalent, 30 Mcg, IM, 12 yrs and above ([employer]) 2022 Pneumococcal Conjugate Vacc, 13 Valent (Prevnar) 01/21/2016 Pneumococcal Conjugate Vacci ne, 20-valent ([id number]) 07/19/2023 Pneumococcal Polysaccharide PPV23 (Pneumovax) 01/13/2011 RSV [...] the patient to call the office at [phone] in regards to below message from Dr. [...] seems weak, but not acutely ill. In [id number] he had penicillium species isolate on bronch, [...] 04/19/2024 11:20 AM EDT Office Visit NephrologyFrancisco [address] [facility] [address] [place] [address] Roslyn Moulton MD [address] [address] 04/24/2024 2:00 PM EDT PulmDiagnostic Pulmonary Function Lab, [facility] [address] [address] [facility], Pulm Function Room 1 [address] [id number] 07/17/2024 8:00 AM EDT Office Visit Rheumatology, [address] [place] [address] Perry Tate MD [address] [facility] [place], [place] [address] 07/24/2024 2:30 PM EDT [facility] [address] [facility] [address] [place] [address] Malaika Guzman PA-C 27 [facility] 140 [place] [address] 08/14/2024 11:00 AM EDT Office Visit Nephrology, [address] [address] Keisha Gunn MD [address] [place] [address] 08/21/2024 2:00 PM EDT Office Visit [facility] 21 [facility] [place] [phone] Fuentes Ashton MD 21 [place] [address] 01/22/2025 1:30 PM EDT PulmDiagnostic Pulmonary Function Lab [facility] [address] [address] [address], [address] [place] [address] 01/22/2025 2:00 PM EDT Office Visit Pulmonary Medicine [facility] [address] [phone] Dominguez Aguilar MD [address] [address] [place] [address] Pending Results Name Type Priority Associated Diagnoses [...] 05/18/2023, Additional history exists GFR 10/10/2024 04/10/2024, 2 , 03/23/2024, Additional history exists TSH 01/30/2025 01/31/2024, 2 [...] encounter Medical Devices Implanted Type Area Supervisor Packing Device Identifier Shelf Expiration Date Model / Serial / Lot Mesh Perfix Plug Lg [id number] - [id number] Implanted:Qty: 1 on 02/07/2019 by Jonathan Correia DO at OR [facility] Right: Groin CR BARD : DAVOL 09/04/2023 [id number] / / [id number] documented as of this encounter Visit Diagnoses Diagnosis 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HCC)- Primary Other specified disorders of arteries and arterioles Mediastinal lymphadenopathy Enlargement of lymph nodes Recurrent fever Relapsing fever, unspecified History of fungal pneumonia documented in this encounter Advance Directives Documents on File Type Date Recorded Patient Veneer Clipper Expl anation Advance Directives and Living Will [...] Center Adult Child Emergency Contact Care Teams Discharge Specialist Relationship Specialty Start Date End Date Fuentes Ashton MD [address] [phone] PCP - General Family Medicine 01/30/22 documented as of this encounter
--- OUTSIDE RECORDS SUMMARY | 2024-09-30 18:28 | External Medical Summary | Summary of Care ---
Author Name Unknown Organization [facility] Address [address] [place] [address] Phone [phone] Care Team Providers Care Instruction Dean Name Role Phone Fuentes Ashton MD Primary Care Provider [phone] Reason for Referral * Precert (Within 10 days (routine)) - Authorized Specialty Diagnoses / Procedures Referred By Contac t Referred To Contact Radiology Diagnoses 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HCC) Mediastinal lymphadenopathy Recurrent fever History of fungal pneumonia Procedures CT CHEST WO CONTRAST Steve Polo MD 21 [facility] [place] [address] Referral ID Status Reason Start Date Expiration Date V isits Requested Visits Authorized [id number] Authorized 04/05/2024 06/04/2024 999 999 Reason for Visit * Reason Onset Date Comments Test Results 04/04/2024 F/U 04/10 CT chest Encounter Details Date Type Department Care Team (Late st Contact Info) Description 04/04/2024 Telephone Pulmonary Medicine Ahmet Downing [address] [phone] Dominguez Aguilar MD [address] [address] Test Results (F/U 04/10 CT chest) Allergies [...] from 2018 Atherosclerotic heart diseas e of mi'kmaq coronary artery without angina pectoris 05/31/2020 CKD [...] chronic kidney disease 08/03/2023 08/03/2023 Atherosclerosis of mi'kmaq co ronary artery without angina pectoris 02/01/2023 [...] 08/30/2019 05/31/2020 Hypertensive heart disease w [facility] heart failure and stage 5 chronic [...] and AMP Hypertensive heart disease w [facility] heart failure and stage 3 chronic [...] mRNA, LNP-s, No Pre serve, 2-Dose Series ([facility]) 08/15/2021,01/31/2021,01/03/2021 COVID-19, LNP-s, No Preserve , Ruslan-sucrose, Ages 12+ (Pfizer) 03/19/2022 COVID-19, MRNA-LNP, 23-24, P F, 30 MCG/0.3 mL, 12 YRS AND ABOVE, IM ([facility]) 10/25/2023 Covid-19, Mrna, Lnp-s, Pf, B ivalent, 30 Mcg, IM, 12 yrs and above ([facility]) 2022 Pneumococcal Conjugate Vacc, 13 Valent (Prevnar) 01/21/2016 Pneumococcal Conjugate Vacci ne, 20-valent ([id number]) 07/19/2023 Pneumococcal Polysaccharide PPV23 (Pneumovax) 01/13/2011 RSV [...] the patient to call the office at [phone] in regards to below message from Dr. [...] seems weak, but not acutely ill. In [id number] he had penicillium species isolate on bronch, [...] Description 04/10/2024 1:30 PM EDT Appointment Radiology, [address] [address] 04/19/2024 11:20 AM EDT Office Visit Nephrology, [address] [place] [address] Roslyn Moulton MD [facility] [address] 04/24/2024 2:00 PM EDT PulmDiagnostic Pulmonary Function Lab, [address] [address] [address], Pulm Function Room 1 [address] [place] [address] 07/17/2024 8:00 AM EDT Office Visit Rheumatology, [address] [place] [address] Perry Tate MD [address] [place] [address], [place] [address] 07/24/2024 2:30 PM EDT [facility] [address] [place] [address] Malaika Guzman PA-C 27 [facility] [address] [place] [address] 08/14/2024 11:00 AM EDT Office Visit Nephrology, [address] [address] Keisha Gunn MD [address] [place] [address] 08/21/2024 2:00 PM EDT Office Visit [facility] 21 [place] [phone] Fuentes Ashton MD 21 [place] [address] 01/22/2025 1:30 PM EDT PulmDiagnostic Pulmonary Function Lab [facility] [address] [address] [address], [address] [facility] [place] [address] 01/22/2025 2:00 PM EDT Office Visit Pulmonary Medicine [facility] [address] [phone] Dominguez Aguilar MD [address] [address] Scheduled Orders Name Type Priority Associated Diagnoses [...] this encounter Medical Devices Implanted Type Area Skiving Machine Operator Device Identifier Shelf Expiration Date Model / Serial / Lot Mesh Perfix Plug Lg [id number] - [id number] Implanted:Qty: 1 on 02/07/2019 by Jonathan Correia, at OR [facility] Right: Groin CR BARD : MARIE 09/04/2023 [id number] / / [id number] documented as of this encounter Visit Diagnoses Diagnosis 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HCC)- Primary Other specified disorders of arteries and arterioles Mediastinal lymphadenopathy Enlargement of lymph nodes Recurrent fever Relapsing fever, unspecified History of fungal pneumonia documented in this encounter Advance Directives Documents on File Type Date Recorded Patient Sales Support Specialist Expl anation Advance Directives and Living [...] by patient or by statute hierarchy) [facility] Adult Child Emergency Contact Care Teams Instruction Dean Relationship Specialty Start Date End Date Fuentes Ashton MD [address] [phone] PCP - General Family Medicine 01/30/22 documented as of this encounter
--- OUTSIDE RECORDS SUMMARY | 2024-09-30 18:28 | External Medical Summary | Summary of Care ---
Author Name Unknown Organization [facility] Address [address] [place] [address] Phone [phone] Care Team Providers Care Bait Tier Name Role Phone Fuentes Ashton MD Primary Care Provider [phone] Reason for Referral * Precert (Within 10 days (routine)) - Pending Review Specialty Diagnoses / Procedures Referred By Contac t Referred To Contact Radiology Diagnoses 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HCC) Mediastinal lymphadenopathy Recurrent fever History of fungal pneumonia Procedures CT CHEST WO CONTRAST Steve Polo MD 21 [place] [address] Referral ID Status Reason Start Date Expiration Date V isits Requested Visits Authorized [id number] Pending Review 04/04/2024 999 999 Reason for Visit * Reason Onset Date Comments Test Results 04/04/202404/04 Encounter Details Date Type Department Care Team (Late st Contact Info) Description 04/04/2024 Telephone Pulmonary Medicine Ahmet Downing [address] [phone] Dominguez Aguilar MD [address] [phone] Test Results (04/04) Allergies Active Allergy Reactions Criticality Noted Date Comments Aztreonam Hives Medium 10/11/2019 Cephalosporins Rash 05/24/2017 Chlorhexidine Hives,Rash 01/02/2022 Ciprofloxacin Diarrhea Medium 01/28/2015 Iodinated Contrast Media Abdominal pain High 019 Acute kidney failure Levofloxacin Rash Low 07/28/2019 documented as of this encounter (statuses as of 04/04/2024) Medications Medication Sig Dispensed Refills Start Date [...] C, by GOLD 2017 classification ([facility]) inhale contents of 1 vial ( 3 [...] as of this encounter (statuses as of 04/04/2024) Active Problems Problem Noted Date Diagnosed Date [...] [place] coronary artery without angina pectoris 05/31/2020 CKD [...] as of this encounter (statuses as of 04/04/2024) Resolved Problems Problem Noted Date Diagnosed Date [...] 08/30/2019 05/31/2020 Hypertensive heart [facility] w [facility] heart failure and stage 5 chronic [...] and AMP Hypertensive heart disease w [facility] heart failure and stage 3 chronic [...] as of this encounter (statuses as of 04/04/2024) Immunizations Name Administration Dates Next Due COVID-19 mRNA, LNP-s, No Pre serve, 2-Dose Series ([employer]) 08/15/2021,01/31/2021,01/03/2021 COVID-19, LNP-s, No Preserve , Ruslan-sucrose, Ages 12+ ([employer]) 03/19/2022 COVID-19, MRNA-LNP, 23-24, P F, 30 MCG/0.3 mL, 12 YRS AND ABOVE, IM ([facility]) 10/25/2023 Covid-19, Mrna, Lnp-s, Pf, B ivalent, 30 Mcg, IM, 12 yrs and above ([employer]) 2022 Pneumococcal Conjugate Vacc, 13 Valent (Prevnar) 01/21/2016 Pneumococcal Conjugate Vacci ne, 20-valent ([id number]) 07/19/2023 Pneumococcal Polysaccharide PPV23 (Pneumovax) 01/13/2011 RSV [...] encounter Miscellaneous Notes * Telephone Encounter - Karla Samaniego LPN - 04/04/2024 4:03 PM EDT Patient aware and verbalized understanding, will comply Transferred call to radiology scheduling. * Telephone Encounter - Yue Jones LPN - 04/04/2024 3:02 PM EDT Left message for the patient to call the office at [phone] in regards to below message from Dr. [...] seems weak, but not acutely ill. In [id number] he had penicillium species isolate on bronch, [...] 04/19/2024 11:20 AM EDT Office Visit Nephrology, [address] [place] [address] Roslyn Moulton MD [address] [place] [address] 04/24/2024 2:00 PM EDT PulmDiagnostic Pulmonary Function Lab, [address] [address] Gl, Pulm Function Room [address] [place] [address] 07/17/2024 8:00 AM EDT Office Visit Rheumatology, [address] [address] Perry Tate MD [address] [place] [address], [place] [address] 07/24/2024 2:30 PM EDT Office Visit Dermatology, Melissa Desir [place] 27 [facility] 140 [place], [place] [phone] Malaika Guzman PA-C 27 [address] [place] [address] 08/14/2024 11:00 AM EDT Office Visit Nephrology, [address] [address] Keisha Gunn MD 400 [facility] [place] [address] 08/21/2024 2:00 PM EDT Office Visit [facility] 21 [facility] [place] [phone] Fuentes Ashton MD 21 [place] [address] 01/22/2025 1:30 PM EDT PulmDiagnostic Pulmonary Function Lab [facility] [address] [address] [address], [address] [place] [address] 01/22/2025 2:00 PM EDT Office Visit Pulmonary Medicine [facility] [address] [phone] Dominguez Aguilar MD [address] [facility] [place] [address] [address] Scheduled Orders Name Type Priority Associated Diagnoses [...] this encounter Medical Devices Implanted Type Area Java Project Manager Device Identifier Shelf Expiration Date Model / Serial / Lot Mesh Perfix Plug Lg [id number] - [id number] Implanted:Qty: 1 on 02/07/2019 by Jonathan Correia DO at OR [facility] Right: Groin CR BARD : DAVOL 09/04/2023 [id number] / / [id number] documented as of this encounter Visit Diagnoses Diagnosis 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HCC)- Primary Other specified disorders of arteries and arterioles Mediastinal lymphadenopathy Enlargement of lymph nodes Recurrent fever Relapsing fever, unspecified History of fungal pneumonia documented in this encounter Advance Directives Documents on File Type Date Recorded Patient Grinder Set Up Operator Gear Tool Expl anation Advance Directives and Living Will [...] verbally by patient or by statute hierarchy) [facility] Adult Child Emergency Contact Care Teams Bait Tier Relationship Specialty Start Date End Date Fuentes Ashton MD [address] [address] PCP - General Family Medicine 01/30/22 documented as of this encounter
--- OUTSIDE RECORDS SUMMARY | 2024-09-30 18:28 | External Medical Summary | Summary of Care ---
Author Name Unknown Organization [facility] Address [address] [place] [address] Phone [phone] Care Team Providers Care Med Care Manager Name Role Phone Fuentes Ashton MD Primary Care Provider [phone] [phone] Reason for Referral * Precert (Within 10 days (routine)) - Authorized Specialty Diagnoses / Procedures Referred By Contac t Referred To Contact Radiology Diagnoses 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HCC) Mediastinal lymphadenopathy Recurrent fever History of fungal pneumonia Procedures CT CHEST WO CONTRAST Steve Polo MD [facility] [place] [address] Referral ID Status Reason Start Date Expiration Date V isits Requested Visits Authorized [id number] Authorized 04/05/2024 06/04/2024 999 999 Reason for Visit * Reason Onset Date Comments Test Results 04/04/202404/04 Encounter Details Date Type Department Care Team (Late st Contact Info) Description 04/04/2024 Telephone Pulmonary Medicine Ahmet Downing [address] [phone] Dominguez Aguilar MD [address] [address] Test Results (04/04) Allergies Active Allergy Reactions [...] ([facility]ER[facility]) inhale contents of 1 vial ( 3 [...] from 2018 Atherosclerotic heart diseas e of [place] coronary artery without angina pectoris 05/31/2020 CKD (chronic kidney disease) stage 4, GFR 15-29 ml/min 07/17/2019 Chronic anticoagulation 04/03/2019 Vitamin D deficiency 11/17/2018 Senile osteoporosis 09/06/2018 Paroxysmal atrial fibrillation 07/08/2018 Last Assessment & Plan: Rate controlled on metoprolol Continue apixaban History of acute tubular necrosis 06/29/2018 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 IPMN (intraductal papillary mucinous neoplasm) 0 03/09/2018 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 08/03/2023 08/03/2023 Atherosclerosis of [place] co ronary artery without angina pectoris 02/01/2023 [...] mRNA, LNP-s, No Pre serve, 2-Dose Series ([employer]) 08/15/2021,01/31/2021,01/03/2021 COVID-19, LNP-s, No Preserve , Ruslan-sucrose, Ages 12+ ([employer]) 03/19/2022 COVID-19, MRNA-LNP, 23-24, P F, 30 MCG/0.3 mL, 12 YRS AND ABOVE, IM ([employer]) 10/25/2023 Covid-19, Mrna, Lnp-s, Pf, B ivalent, 30 Mcg, IM, 12 yrs and above ([employer]) 2022 Pneumococcal Conjugate Vacc, 13 Valent (Prevnar) 01/21/2016 Pneumococcal Conjugate Vacci ne, 20-valent ([id number]) 07/19/2023 Pneumococcal Polysaccharide PPV23 (Pneumovax) 01/13/2011 RSV [...] the patient to call the office at [phone] in regards to below message from Dr. Polo. * Telephone Encounter - Steve Polo MD - 04/04/2024 2:57 PM EDT Please advise pt that Dr. Aguilar wants to start with repeat CT scan next, then proceed based on results. Order signed. Thanks! Steve Polo MD, ANTWON Family Physician [facility] Bushnell * Telephone Encounter - Emma Adorno LPN [...] seems weak, but not acutely ill. In [phone] he had penicillium species isolate on bronch, [...] Description 04/10/2024 1:30 PM EDT Appointment Radiology, [address] [place] [address] 04/19/2024 11:20 AM EDT Office Visit Nephrology, [address] [place] [address] Roslyn Moulton MD [address] [place] [address] [place] [address] 04/24/2024 2:00 PM EDT PulmDiagnostic Pulmonary Function Lab, [address] [place] [address] Gl, Pulm Function Room [address] [place], [place] [address] [address] 07/17/2024 8:00 AM EDT Office Visit Rheumatology, [address] [place] [address] Perry Tate MD [address] [place] [address] 07/24/2024 2:30 PM EDT [facility] 140 [place] [address] Malaika Guzman PA-C 27 [facility] 140 [place] [address] 08/14/2024 11:00 AM EDT Office Visit Nephrology, [address] [address] Keisha Gunn MD [address] [place] [address] 08/21/2024 2:00 PM EDT Office Visit [facility] 21 [place] [phone] Fuentes Ashton MD 21 [place] [address] 01/22/2025 1:30 PM EDT PulmDiagnostic Pulmonary Function Lab [facility] [address] [address] [address], [address] [facility] [place] [address] 01/22/2025 2:00 PM EDT Office Visit Pulmonary Medicine [facility] [address] [phone] Dominguez Aguilar MD [address] [address] Scheduled Orders Name Type Priority Associated Diagnoses [...] 01/31/2024, 1112/2022, 05/18/2023, Additional history exists GFR 09/27/2024 03/27/2024, 03/08, 03/22/2024, Additional history exists TSH 01/30/2025 01/31/2024, 2 [...] this encounter Medical Devices Implanted Type Area Risk Consultant Device Identifier Shelf Expiration Date Model / Serial / Lot Mesh Perfix Plug Lg [id number] - [id number] Implanted:Qty: 1 on 02/07/2019 by Jonathan Correia, at OR [facility] Right: Groin CR BARD : DAVOL 09/04/2023 [id number] / / [id number] documented as of this encounter Visit Diagnoses Diagnosis 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HCC)- Primary Other specified disorders of arteries and arterioles Mediastinal lymphadenopathy Enlargement of lymph nodes Recurrent fever Relapsing fever, unspecified History of fungal pneumonia documented in this encounter Advance Directives Documents on File Type Date Recorded 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
--- OUTSIDE RECORDS SUMMARY | 2024-09-30 18:28 | External Medical Summary | Summary of Care ---
Author Name Unknown Organization [facility] Address [address] [place] [address] Phone [phone] Care Team Providers Care Purchasing Specialist Name Role Phone Fuentes Ashton MD Primary Care Provider [phone] Reason for Visit * Precert (Within 10 days (routine)) - Authorized Specialty Diagnoses / Procedures Referred By Contac t Referred To Contact Radiology Diagnoses 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HCC) Mediastinal lymphadenopathy Recurrent fever History of fungal pneumonia Procedures CT CHEST WO CONTRAST Steve Polo MD 21 [place] [address] Referral ID Status Reason Start Date Expiration Date V isits Requested Visits Authorized [id number] Authorized 04/05/2024 06/04/2024 999 999 Encounter Details Date Type Department Care Team (Latest Contact Info) Description 04/10/2024 12:30 PM EDT - 04/10/2024 11:59 PM EDT Hospital Encounter Radiology, [address] [place] [address] Arrived Discharge Disposition: Home - Self Care [...] GOLD 2017 classification ([facility]) inhale contents of 1 vial [...] from 2018 Atherosclerotic heart diseas e of [place] coronary artery without angina pectoris 05/31/2020 CKD [...] chronic kidney disease 08/03/2023 08/03/2023 Atherosclerosis of [place] co ronary artery without angina pectoris 02/01/2023 [...] mRNA, LNP-s, No Pre serve, 2-Dose Series ([employer]) 08/15/2021,01/31/2021,01/03/2021 COVID-19, LNP-s, No Preserve , Ruslan-sucrose, Ages 12+ ([employer]) 03/19/2022 COVID-19, MRNA-LNP, 23-24, P F, 30 MCG/0.3 mL, 12 YRS AND ABOVE, IM ([employer]Com[employer]) 10/25/2023 Covid-19, Mrna, Lnp-s, Pf, B ivalent, 30 Mcg, IM, 12 yrs and above ([employer]) 2022 Pneumococcal Conjugate Vacc, 13 Valent (Prevnar) 01/21/2016 Pneumococcal Conjugate Vacci ne, 20-valent ([id number]) 07/19/2023 Pneumococcal Polysaccharide PPV23 (Pneumovax) 01/13/2011 RSV [...] 11:20 AM EDT Office Visit Nephrology, [place] [address] [facility] [place] [address] Roslyn Moulton MD [address] [place] [address] 04/24/2024 2:00 PM EDT PulmDiagnostic Pulmonary Function Lab, [facility] [address] [place] [address] [facility], Pulm Function Room 1 [address] [place] [address] 07/17/2024 8:00 AM EDT Office Visit Rheumatology, [address] [address] Perry Tate MD [facility] [place] [address] 07/24/2024 2:30 PM EDT [facility] 140 [place] [address] Malaika Guzman PA-C 27 [facility] [address] [place] [address] 08/14/2024 11:00 AM EDT Office Visit Nephrology, [address] [address] Keisha Gunn MD 400 [place] [address] 08/21/2024 2:00 PM EDT Office [facility] 21 [facility] [place] [phone] Fuentes Ashton MD 21 [place] [address] 01/22/2025 1:30 PM EDT PulmDiagnostic Pulmonary Function Lab [facility] [address] [address] [address], [address] [place] [address] 01/22/2025 2:00 PM EDT Office Visit Pulmonary Medicine [facility] [address] [phone] Dominguez Aguilar MD [address] [address] Pending Results Name Type Priority Associated Diagnoses [...] this encounter Medical Devices Implanted Type Area Laborer Yard Device Identifier Shelf Expiration Date Model / Serial / Lot Mesh Perfix Plug Lg [id number] - [id number] Implanted:Qty: 1 on 02/07/2019 by Jonathan Correia DO at OR [facility] Right: Lelo WYATT : MARIE 09/04/2023 [id number] / / [id number] documented as of this encounter Advance Directives Documents on File Type Date Recorded 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
--- OUTSIDE RECORDS SUMMARY | 2024-09-30 18:29 | External Medical Summary | Summary of Care ---
Author Name Unknown Organization [facility] Address [address] [facility] [place] [address] Phone [phone] Care Team Providers Care Shift Lab Technician Name Role Phone Fuentes Ashton MD Primary Care Provider [phone] [phone] Reason for Visit * Reason Comments Follow Up Pt finished his entin today, continues to run low grade fevers/chills Encounter Details Date Type Department Care Team (Late st Contact Info) Description 03/31/2024 2:00 PM EDT Office Visit [facility] 21 [place] [address] Steve Polo MD 21 [place] [address] Bilateral lower extremity edema*; Low grade fever; History of sepsis; History of fungal pneumonia Allergies Active Allergy Reactions Criticality Noted Date Comments Aztreonam Hives Medium 10/11/2019 Cephalosporins Rash 05/24/2017 Chlorhexidine Hives,Rash 01/02/2022 Ciprofloxacin Diarrhea Medium 01/28/2015 Iodinated Contrast Media Abdominal pain High 019 Acute kidney failure Levofloxacin Rash Low 07/28/2019 documented as of this encounter (statuses as of 04/03/2024) Medications Medication Sig Dispensed Refills Start Date [...] GOLD 2017 classification ([facility]) inhale contents of 1 vial [...] 10, 2024. 135 Tablet 4 4 Active Allopurinol 100 MG Oral Tablet (Zyloprim) Take 1/2 Tablet by mouth in the morning. 15 Tablet 5 4 Active Albuterol Sulfate 108 (90 Base) MCG/ACT Inhalation Aerosol Powder Breath ActivatedIndication s:COPD, moderate (HCC) Inhale 2 Puffs by mouth every 4 hours as needed for Shortness of Breath. 1 Each 5 4 Active Calcitriol 0.5 MCG Oral Capsule (Rocaltrol) Take 1 Capsule by mouth in the morning. 30 Capsule 4 Active Azithromycin 250 MG Oral Tablet (Zithromax)Indicati ons:Low grade fever,History of sepsis,History of fungal pneumonia Take 2 tabs by mouth on the first day, then 1 tab daily on days two through five 6 Tablet 4 04/05/20 24 Active Furosemide 20 MG Oral Tablet (Lasix)Indications: Bilateral lower extremity edema Take 1 Tablet by mouth daily as needed (lower extremity edema). 30 Tablet 11 4 Active Amoxicillin-Pot Clavulanate 500-125 MG Oral Tablet (Augmentin) Take 1 Tablet by mouth in the morning and 1 Tablet in the evening. Do all this for 8 days. 16 Tablet 4 03/31/20 24 documented as of this encounter (statuses as of 04/03/2024) Active Problems Problem Noted Date Diagnosed Date [...] from 2018 Atherosclerotic heart diseas e of [place] coronary artery without angina pectoris 05/31/2020 CKD [...] as of this encounter (statuses as of 04/03/2024) Resolved Problems Problem Noted Date Diagnosed Date [...] chronic kidney disease 08/03/2023 08/03/2023 Atherosclerosis of [place] co ronary artery without angina pectoris 02/01/2023 [...] Cachexia 08/30/2019 05/31/2020 Hypertensive heart disease w [facility] heart failure and stage 5 [...] PL and AMP Hypertensive heart disease w [facility] heart failure and stage 3 [...] as of this encounter (statuses as of 04/03/2024) Immunizations Name Administration Dates Next Due COVID-19 mRNA, LNP-s, No Pre serve, 2-Dose Series ([employer]) 08/15/2021,01/31/2021,01/03/2021 COVID-19, LNP-s, No Preserve , Ruslan-sucrose, Ages 12+ ([employer]) 03/19/2022 COVID-19, MRNA-LNP, 23-24, P F, 30 MCG/0.3 mL, 12 YRS AND ABOVE, IM ([facility]) 10/25/2023 Covid-19, Mrna, Lnp-s, Pf, B ivalent, 30 Mcg, IM, 12 yrs and above ([employer]) 2022 Pneumococcal Conjugate Vacc, 13 Valent (Prevnar) 01/21/2016 Pneumococcal Conjugate Vacci ne, 20-valent ([id number]) 07/19/2023 Pneumococcal Polysaccharide PPV23 (Pneumovax) 01/13/2011 RSV [...] Given: Not Answered Comments:quit smoking in the 1960 Alcohol Use [...] money to buy more. Never true 01/31/20 Within the past 12 months, t he [...] Sign Reading Time Taken Comments Blood Pressure 100/60 03/31/2024 1:54 PM EDT Pulse 75 03/31/2024 1:54 PM EDT Temperature 36.9 C (98.5 F) 03/31/2024 1:54 PM ED T Respiratory Rate 16 03/31/2024 1:54 PM EDT Oxygen Saturation 94% 03/31/2024 1:54 PM EDT Inhaled Oxygen Concentration - - Weight 73.3 kg (161 lb 9.6 oz) 03/31/2024 1:54 P M EDT Height - - Body Mass Index 25.31 03/27/2024 2:23 PM EDT documented in this [...] as of this encounter Progress Notes * Steve Polo MD - 03/31/2024 2:09 PM EDT Images from the original note were not included. History of Present Illness Kennedy Davis is a 78 year old male that presents for Follow Up (Pt finished his Augmentin today, continues to run low grade fevers/chills) This happens once a day when he gets shivers. Covers himself with blanket and gets warm. says he also still has a cough. They are concerned about ongoing pneumonia. 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 Was treated with antifungal. Saw ID, who recommended stopping it, but was continued by pulmonology and he continued to improve. Had fevers at that time too, but were higher than what he's experiencing now. He is frustrated he's not recovering more quickly. Physical Exam Vitals: 03/31/24 1354 Temp: 36.9 C (98.5 F) Pulse: 75 Resp: 16 SpO2: 94% BP: 100/60 BP Readings from Last 3 Encounters: 03/31/24 100/60 03/27/24 104/64 03/23/24 152/72 Wt Readings from Last 3 Encounters: 03/31/24 73.3 kg (161 lb 9.6 oz) 03/27/24 74.1 kg (163 lb 4.8 oz) 03/23/24 73.8 kg (162 lb 11.2 oz) BMI Readings from Last 3 Encounters: 03/31/24 25.31 kg/m 03/27/24 25.58 kg/m 03/23/24 25.48 kg/m Physical Exam Constitutional: General: He is not in acute distress. Appearance: He is normal weight. He is ill-appearing. He is not diaphoretic. Cardiovascular: Rate and Rhythm: Normal rate. Heart sounds: No murmur heard. Pulmonary: Effort: No respiratory distress. Breath sounds: No stridor. No wheezing, rhonchi or rales. Comments: Poor air movement Chest: Chest wall: No tenderness. Musculoskeletal: General: No swelling. Right lower leg: Edema (1+) present. Left lower leg: Edema (1+) present. Skin: Coloration: Skin is not jaundiced or pale. Findings: No bruising or erythema. Neurological: General: No focal deficit present. Mental Status: He is oriented to person, place, and time. Psychiatric: Mood and Affect: Mood normal. Behavior: Behavior normal. I have reviewed the following results: cxr, testosterone, procal, cmp, cbc, uric acid Assessment and Plan Bilateral lower extremity edema Start prn furosemide for edema - Furosemide 20 MG Oral Tablet (Lasix); Take 1 Tablet by mouth daily as needed (lower extremity edema). Low grade fever Repat cxr, start azithromycin due to hospitalization, possible atypical pneumonia. Message sent to Dr. Aguilar to discuss whether he may need to have bronch/ restart voriconazole. - XR CHEST 2 VIEWS - Azithromycin 250 MG Oral Tablet (Zithromax); Take 2 tabs by mouth on the first day, then 1 tab daily on days two through five History of sepsis - Azithromycin 250 MG Oral Tablet (Zithromax); Take 2 tabs by mouth on the first day, then 1 tab daily on days two through five History of fungal pneumonia Message sent to pulmonary. Symptoms similar to prior fungal pna event. - XR CHEST 2 VIEWS - Azithromycin 250 MG Oral Tablet (Zithromax); Take 2 tabs by mouth on the first day, then 1 tab daily on days two through five Wrap-Up Time: I spent a total of 30-39 minutes (exact time 34 mins) on the date of service in preparation, delivery, and documentation of the care provided to Kennedy Davis excluding any time spent in the performance of separately billed services. documented in this encounter Nursing Notes * Keena Samuel LPN - 03/31/2024 1:52 PM EDT Chief Complaint Patient presents with Follow Up Pt finished his Augmentin today, continues to run low grade fevers/chills documented in this encounter Miscellaneous Notes * Result Encounter Note - Steve Polo MD - 04/01/2024 7:25 AM EDT Chest xray overall looks good without signs of pneumonia at this time documented in this encounter Plan of Treatment Upcoming Encounters Date Type Department Care Team (Late st Contact Info) Description 04/19/2024 11:20 AM EDT Office Visit Nephrology, [place] [address] [address] [place] [address] Roslyn Moulton MD [address] [place] [phone] 04/24/2024 2:00 PM EDT PulmDiagnostic Pulmonary Function Lab, [address] [address] Gl, Pulm Function Room [address] [place] [address] 07/17/2024 8:00 AM EDT Office Visit Rheumatology, [address] [address] Perry Tate MD [address] [place] [address], [place] [address] 07/24/2024 2:30 PM EDT Office Visit Dermatology, Melissa Desir [place] [address] [place], [place] [phone] Malaika Guzman PA-C 27 Melissa [facility] 140 [place] [address] 08/14/2024 11:00 AM EDT Office Visit Nephrology, [address] [phone] Keisha Gunn MD 400 [place] [address] 08/21/2024 2:00 PM EDT Office Visit [facility] 21 [facility] [place] [address] Fuentes Ashton MD 21 [facility] [place] [address] 01/22/2025 1:30 PM EDT PulmDiagnostic Pulmonary Function Lab [facility] [address] [address] [address], [address] Sonali Thang [place] [address] 01/22/2025 2:00 PM EDT Office Visit Pulmonary Medicine [facility] [place] [address] [phone] Dominguez Aguilar MD [address] [facility] [place] [address] Scheduled Procedures Name Priority Associated Diagnoses Date/Ti [...] this encounter Medical Devices Implanted Type Area Rn Medicare Device Identifier Shelf Expiration Date Model / Serial / Lot Mesh Perfix Plug Lg [id number] - [id number] Implanted:Qty: 1 on 02/07/2019 by Jonathan Correia, at OR [facility] Right: Groin CR BARD : DAVOL 09/04/2023 [id number] / / [id number] documented as of this encounter Procedures Procedure Name Priority Date/Time Associated Diagnosis Comments XR CHEST 2 VIEWS Routine 03/31/2024 2:45 PM EDT Low grade fever History of fungal pneumonia documented in this encounter Results * XR CHEST 2 VIEWS (03/31/2024 2:45 PM EDT) Anatomical Region Laterality Modality Chest Computed Radiogr aphy 04/01/2024 6:52 AM EDT Impressions 04/01/2024 6:50 AM EDT IMPRESSION Nonspecific minimal interstitial opacities. Narrative 04/01/2024 6:50 AM EDT EXAM XR CHEST 2 VIEWS - 03/31/2024 2:45 pm HISTORY "recent pneumonia, ongoing fevers." TECHNIQUE Frontal and lateral views of the chest were obtained. COMPARISON 03/18/2024 FINDINGS Nonspecific minimal interstitial opacities. No focal consolidation. There is no pleural effusion or pneumothorax. The cardiomediastinal silhouette is within normal limits. Partially imaged lumbar spine fixation hardware. Procedure Note Ravindra Bates MD - 04/01/2024 EXAM XR CHEST 2 VIEWS - 03/31/2024 2:45 pm HISTORY "recent pneumonia, ongoing fevers." TECHNIQUE Frontal and lateral views of the chest were obtained. COMPARISON 03/18/2024 FINDINGS Nonspecific minimal interstitial opacities. No focal consolidation.There is no pleural effusion or pneumothorax. The cardiomediastinalsilhouette is within normal limits. Partially imaged lumbar spine fixation hardware. IMPRESSION IMPRESSION Nonspecific minimal interstitial opacities. 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
--- OUTSIDE RECORDS SUMMARY | 2024-09-30 18:29 | External Medical Summary | Summary of Care ---
Author Name Unknown Organization [facility] Address [address] [place] [address] Phone [phone] Care Team Providers Care Distance Learning Technician Name Role Phone Fuentes Ashton MD Primary Care Provider [phone] Reason for Referral * Precert (Within 10 days (routine)) - Pending Review Specialty Diagnoses / Procedures Referred By Contac t Referred To Contact Radiology Diagnoses 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HCC) Mediastinal lymphadenopathy Recurrent fever History of fungal pneumonia Procedures CT CHEST WO CONTRAST Steve Polo MD [address] [place] [address] Referral ID Status Reason Start Date Expiration Date V isits Requested Visits Authorized [id number] Pending Review 04/04/2024 999 999 Reason for Visit * Reason Onset Date Comments Test Results 04/04/202404/04 Encounter Details Date Type Department Care Team (Late st Contact Info) Description 04/04/2024 Telephone Pulmonary Medicine Ahmet Downing [address] [phone] Dominguez Agiular MD [address] [id number] Test Results (04/04) Allergies Active Allergy Reactions [...] Delayed Release (PriLOSEC)Indicatio ns:Gastroesophageal reflux disease without esophagitis,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 Take [...] group C, by GOLD 2017 classification ([facility]) inhale contents of 1 vial [...] from 2018 Atherosclerotic heart diseas e of [place] coronary artery without angina pectoris 05/31/2020 CKD (chronic kidney disease) stage 4, GFR 15-29 ml/min 07/17/2019 Chronic anticoagulation 04/03/2019 Vitamin D deficiency 11/17/2018 Senile osteoporosis 09/06/2018 Paroxysmal atrial fibrillation 07/08/2018 Last Assessment & Plan: Rate controlled on metoprolol Continue apixaban History of acute tubular necrosis 06/29/2018 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 IPMN (intraductal papillary mucinous neoplasm) 0 03/09/2018 Overview: MRI 02/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 08/03/2023 08/03/2023 Atherosclerosis of [place] co ronary artery without angina pectoris 02/01/2023 [...] Cachexia 08/30/2019 05/31/2020 Hypertensive heart disease [facility] heart failure and stage 5 chronic [...] PL and AMP Hypertensive heart disease [facility] heart failure and stage 3 chronic [...] mRNA, LNP-s, No Pre serve, 2-Dose Series ([employer]) 08/15/2021,01/31/2021,01/03/2021 COVID-19, LNP-s, No Preserve , Ruslan-sucrose, Ages 12+ ([employer]) 03/19/2022 COVID-19, MRNA-LNP, 23-24, P F, 30 MCG/0.3 mL, 12 YRS AND ABOVE, IM ([facility]) 10/25/2023 Covid-19, Mrna, Lnp-s, Pf, B ivalent, 30 Mcg, IM, 12 yrs and above ([employer]) 2022 Pneumococcal Conjugate Vacc, 13 Valent (Prevnar) 01/21/2016 Pneumococcal Conjugate Vacci ne, 20-valent ([id number]) 07/19/2023 Pneumococcal Polysaccharide PPV23 (Pneumovax) 01/13/2011 RSV [...] encounter Miscellaneous Notes * Telephone Encounter - Yue Jones LPN - 04/04/2024 3:02 PM EDT Left message for the patient to call the office at [phone] in regards to below message from Dr. [...] seems weak, but not acutely ill. In [phone] he had penicillium species isolate on bronch, [...] 04/19/2024 11:20 AM EDT Office Visit Nephrology, [place] [address] [facility] [place], [place] [address] Roslyn Moulton MD [address] [place] [address] 04/24/2024 2:00 PM EDT PulmDiagnostic Pulmonary Function Lab, [address] [address] Gl, Pulm Function Room [address] [place] [address] 07/17/2024 8:00 AM EDT Office Visit Rheumatology, [address] [address] Perry Tate MD [facility] [place] [address] 07/24/2024 2:30 PM EDT Office Visit Dermatology, [facility] 27 [facility] [address] [place] [address] Malaika Guzman PA-C [address] [facility] [place] [address] [place] [address] 08/14/2024 11:00 AM EDT Office Visit Nephrology, [address] [address] Keisha Gunn MD [address] [place] [address] 08/21/2024 2:00 PM EDT Office Visit [facility] 21 [facility] [place] [address] Fuentes Ashton MD [facility] [place] [address] 01/22/2025 1:30 PM EDT PulmDiagnostic Pulmonary Function Lab [place] [address] [place] [address] [address], [address] [place], [place] [address] 01/22/2025 2:00 PM EDT Office Visit Pulmonary Medicine [place] [address] [place] [phone] Dominguez Aguilar MD [address] [place] [address] Scheduled Orders Name Type Priority Associated Diagnoses [...] this encounter Medical Devices Implanted Type Area Product Sales Representative Device Identifier Shelf Expiration Date Model / Serial / Lot Mesh Perfix Plug Lg [id number] - [id number] Implanted:Qty: 1 on 02/07/2019 by Jonathan Correia DO at OR [facility] Right: Groin CR BARD : DAVOL 09/04/2023 [id number] / / [id number] documented as of this encounter Visit Diagnoses Diagnosis 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HCC)- Primary Other specified disorders of arteries and arterioles Mediastinal lymphadenopathy Enlargement of lymph nodes Recurrent fever Relapsing fever, unspecified History of fungal pneumonia documented in this encounter Advance Directives Documents on File Type Date Recorded 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
--- OUTSIDE RECORDS SUMMARY | 2024-09-30 18:29 | External Medical Summary | Summary of Care ---
Author Name Unknown Organization [facility] Address [address] [place] [address] Phone [phone] Care Team Providers Care Water Restoration Technician Name Role Phone Fuentes Ashton MD Primary Care Provider [phone] Reason for Referral * Precert (Within 10 days (routine)) - Pending Review Specialty Diagnoses / Procedures Referred By Contac t Referred To Contact Radiology Diagnoses 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HCC) Mediastinal lymphadenopathy Recurrent fever History of fungal pneumonia Procedures CT CHEST WO CONTRAST Steve Polo MD [address] [place] [address] Referral ID Status Reason Start Date Expiration Date V isits Requested Visits Authorized [id number] Pending Review 04/04/2024 999 999 Reason for Visit * Reason Onset Date Comments Test Results 04/04/202404/04 Encounter Details Date Type Department Care Team (Late st Contact Info) Description 04/04/2024 Telephone Pulmonary Medicine Ahmet Downing [address] [phone] Dominguez Aguilar MD [address] [id number] Test Results (04/04) Allergies Active Allergy Reactions [...] group C, by GOLD 2017 classification ([facility]) inhale contents of 1 vial ( [...] from 2018 Atherosclerotic heart diseas e of [place] coronary artery without angina pectoris 05/31/2020 CKD [...] chronic kidney disease 08/03/2023 08/03/2023 Atherosclerosis of [place] co ronary artery without angina pectoris 02/01/2023 [...] Cachexia 08/30/2019 05/31/2020 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 [...] PL and AMP Hypert[facility] heart failure and stage 3 chronic [...] mRNA, LNP-s, No Pre serve, 2-Dose Series ([employer]) 08/15/2021,01/31/2021,01/03/2021 COVID-19, LNP-s, No Preserve , Ruslan-sucrose, Ages 12+ ([employer]) 03/19/2022 COVID-19, MRNA-LNP, 23-24, P F, 30 MCG/0.3 mL, 12 YRS AND ABOVE, IM ([facility] [employer]) 10/25/2023 Covid-19, Mrna, Lnp-s, Pf, B ivalent, 30 Mcg, IM, 12 yrs and above ([employer]) 2022 Pneumococcal Conjugate Vacc, 13 Valent (Prevnar) 01/21/2016 Pneumococcal Conjugate Vacci ne, 20-valent ([id number]) 07/19/2023 Pneumococcal Polysaccharide PPV23 (Pneumovax) 01/13/2011 RSV [...] the patient to call the office at [phone] in regards to below message from Dr. [...] seems weak, but not acutely ill. In [phone] he had penicillium species isolate on bronch, [...] 04/19/2024 11:20 AM EDT Office Visit Nephrology, [place] [address] [facility] [place], [place] [address] Roslyn Moulton MD [address] [place] [address] 04/24/2024 2:00 PM EDT PulmDiagnostic Pulmonary Function Lab, [address] [address] Gl, Pulm Function Room [address] [place] [address] 07/17/2024 8:00 AM EDT Office Visit Rheumatology, [address] [address] Perry Tate MD [facility]0 [place] [address] 07/24/2024 2:30 PM EDT Office Visit Dermatology, [facility] 27 [facility] [address] [place] [address] Malaika Guzman PA-C 27 [facility] [place] 140 [place] [address] 08/14/2024 11:00 AM EDT Office Visit Nephrology, [address] [address] Keisha Gunn MD [address] [place] [address] 08/21/2024 2:00 PM EDT Office [facility] 21 [place] [address] Fuentes Ashton MD 21 [facility] [place] [address] 01/22/2025 1:30 PM EDT PulmDiagnostic Pulmonary Function Lab [place] [address] [place] [address] [address], [address] [place], [place] [address] 01/22/2025 2:00 PM EDT Office Visit Pulmonary Medicine [place] [address] [place] [phone] Dominguez Aguilar MD [address] [place] [address] Scheduled Orders Name Type Priority Associated Diagnoses [...] this encounter Medical Devices Implanted Type Area Ward Aide Device Identifier Shelf Expiration Date Model / Serial / Lot Mesh Perfix Plug Lg [id number] - [id number] Implanted:Qty: 1 on 02/07/2019 by Jonathan Correia DO at OR [facility] Right: Groin CR BARD : DAVOL 09/04/2023 [id number] / / [id number] documented as of this encounter Visit Diagnoses Diagnosis 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HCC)- Primary Other specified disorders of arteries and arterioles Mediastinal lymphadenopathy Enlargement of lymph nodes Recurrent fever Relapsing fever, unspecified History of fungal pneumonia documented in this encounter Advance Directives Documents on File Type Date Recorded 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
--- OUTSIDE RECORDS SUMMARY | 2024-09-30 19:08 | External Medical Summary | Summary of Care ---
Author Name Unknown Organization [facility] Address [address] [facility] [place] [address] Phone [phone] Care Team Providers Care Harp Maker Name Role Phone Fuentes Ashton MD Primary Care Provider [phone] Reason for Visit * Reason Onset Date Comments Test Results 09/29/202409/29 Encounter Details Date Type Department Care Team (Late st Contact Info) Description 09/29/2024 Telephone [facility] 21 [facility] [place] [address] David Antunez MD 21 [place] [address] Test Results (09/29) Allergies Active Allergy Reactions Criticality Noted Date [...] geal reflux disease without esophagitis,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 1 Each 11 07/06/20 24 Active Additional Information Patient not taking.Reported on 09/29/2024 Albuterol Sulfate (2.5 MG/3ML) 0.083% Inhalation Nebulization Solution (Proventil)Indica tions:COPD, group C, by GOLD 2017 classification ([facility]) Inhale 1 Vial via nebulizer [...] from 2018 Atherosclerotic heart diseas e of [place] coronary artery without angina pectoris 05/31/2020 Nuclear [...] chronic kidney disease 08/03/2023 08/03/2023 Atherosclerosis of [place] co ronary artery without angina pectoris 02/01/2023 [...] mRNA, LNP-s, No Pre serve, 2-Dose Series ([employer]) 08/15/2021,01/31/2021,01/03/2021 COVID-19, LNP-s, No Preserve , Ruslan-sucrose, Ages 12+ ([employer]) 03/19/2022 COVID-19, MRNA-LNP, PF, 30 M CG/0.3 mL, 12 YRS AND ABOVE, IM (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 Irene's office called him and told him to go to [facility]. His sonis coming now to transport him to [facility]. * Telephone Encounter - David Antunez MD - 09/29/2024 3:47 PM EST I called and personally spoke with [facility]. Dr. Irene was his surgeon. I conveyed the results of today's MRI which showed us possible osteomyelitis. Staff are going to urgently message his surgeon so that they can look at the images and decide if something needs to be done before his appointment Wednesday. I attempted to call the patient but he did not answer in it never went to voicewvil. Can you pleasetry to contact the patient and/or his and update them. documented in this encounter Plan of Treatment Upcoming Encounters Date Type Department Care Team (Late st Contact Info) Description 10/02/2024 1:15 PM EST Treatment Radiation Oncology, [address] [address] 10/02/2024 1:30 PM EST Documentation Radiation Oncology, [address] [address] Mansoor Watson MD [address] [place] [phone] 10/03/2024 10:00 AM EST Office Visit Wound Care, [facility] 400 [place] [address] Vickey Woodruff MD 27 [place] [address] 10/03/2024 1:15 PM EST Treatment Radiation Oncology, [address] [address] 10/04/2024 1:15 PM EST Treatment Radiation Oncology, [address] [address] 10/06/2024 1:15 PM EST Treatment Radiation Oncology, [address] [address] 10/09/2024 1:15 PM EST Treatment Radiation Oncology, [address] [address] 10/10/2024 1:15 PM EST Treatment Radiation Oncology, [address] [address] 10/11/2024 1:15 PM EST Treatment Radiation Oncology, [address] [place] [address] 10/12/2024 1:15 PM EST Treatment Radiation Oncology, [address] [place] [address] 10/13/2024 1:15 PM EST Treatment Radiation Oncology, [address] [place] [address] 10/16/2024 1:15 PM EST Treatment Radiation Oncology, [address] [place] [address] 10/17/2024 1:15 PM EST Treatment Radiation Oncology, [address] [place] [address] 10/18/2024 1:15 PM EST Treatment Radiation Oncology, [address] [place] [address] 10/19/2024 1:15 PM EST Treatment Radiation Oncology, [address] [place] [address] 10/20/2024 1:15 PM EST Treatment Radiation Oncology, [address] [place] [address] 10/23/2024 1:15 PM EST Treatment Radiation Oncology, [address] [place] [address] 10/24/2024 1:15 PM EST Treatment Radiation Oncology, [address] [place] [address] 10/25/2024 1:15 PM EST Treatment Radiation Oncology, [address] [place] [address] 2024 1:15 PM EST Treatment Radiation Oncology, [address] [place] [address] 10/27/2024 1:15 PM EST Treatment Radiation Oncology, [facility] [address] [place] [address] 10/30/2024 1:15 PM EST Treatment Radiation Oncology, [facility] [address] [place] [address] 10/31/2024 1:15 PM EST Treatment Radiation Oncology, [facility] [address] [place] [address] 11/14/2024 1:15 PM EST Office Visit MOHS Surgery [facility] [address] [place] [address] Supriya Fernandes MD [address] [place] [address] 11/28/2024 10:45 AM EST Office Visit Otolaryngology/Head & Neck/Facial Plastic Surgery [address] [place] [address] Lexie Aldridge MD [address] [place] [address] 12/21/2024 1:30 PM EST Office Visit Dermatology, [facility] 27 [facility] 140 [place] [address] Malaika Guzman PA-C [address] [place] [address] 12/22/2024 12:00 PM EST Office Visit Nephrology, [address] [place] [address] Keisha Gunn MD [address] [place] [address] 01/22/2025 1:30 PM EDT PulmDiagnostic Pulmonary Function Lab [facility] 217 S [facility] [place] [address] [address], [address] [place] [address] 01/22/2025 2:00 PM EDT Office Visit Pulmonary Medicine [facility] 217 [address] [facility] [place] [address] Dominguez Aguilar MD 217 [address] [facility] [place] [address] 01/29/2025 2:00 PM EDT Office Visit [facility] [address] [facility] [phone] David Antunez MD [address] [facility] [place] [address] 02/05/2025 10:00 AM EDT Office Visit Rheumatology, [facility] 400 [place] [address] Rafael Hernandez PA-C 54[address] [facility], [place] [address] 02/06/2025 1:30 PM EDT [facility] 400 [facility] [place] [address] Cherry Warner PA-C [facility] [address] Scheduled Procedures Name Priority Associated Diagnoses Date/Ti [...] this encounter Medical Devices Implanted Type Area Lamp Shade Maker Device Identifier Shelf Expiration Date Model / Serial / Lot Mesh Perfix Plug Lg [id number] - [id number] Implanted:Qty : 1 on 02/07/2019 by Jonathan Correia DO at OR [facility] Right: Groin CR BARD : DAVOL 09/04/2023 [id number] / / [id number] Cytal Wndmtx 1lyr [id number](150 Units) - [id number] - [id number] Implanted:Qty : 1 on 08/10/2024 by Lexie Aldridge MD at [place] [facility] Left: Leg Upper [employer] [id number] 10/07/2025 [id number] / [id number] / [id number] Cytal Wndmtx 1lyr 7x10cm (70 Units) - [id number] - [id number] Implanted:Qty : 1 on 08/10/2024 by Lexie Aldridge MD at OR [facility] Left: Leg Upper [employer] [id number] 01/05/2026 [id number] / [id number] / [id number] documented as of this encounter Advance Directives Documents on File Type Date Recorded 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
--- OUTSIDE RECORDS SUMMARY | 2024-09-30 19:08 | External Medical Summary | Summary of Care ---
Author Name Unknown Organization [facility] Address [address] [facility] [place] [address] Phone [phone] Care Team Providers Care Visualizer Name Role Phone Fuentes Ashton MD Primary Care Provider [phone] [phone] Reason for Visit * Reason Onset Date Comments Test Results 09/29/202409/29 Encounter Details Date Type Department Care Team (Late st Contact Info) Description 09/29/[address] 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 [...] from 2018 Atherosclerotic heart diseas e of [place] coronary artery without angina pectoris 05/31/2020 Nuclear [...] neoplasm) 0 03/09/2018 Overview (03/09/2018): MRI 02/23 jail (current) use of systemic [...] chronic kidney disease 08/03/2023 08/03/2023 Atherosclerosis of [place] co ronary artery without angina pectoris 02/01/2023 [...] mRNA, LNP-s, No Pre serve, 2-Dose Series (Spotwish) 08/15/2021,01/31/2021,01/03/2021 COVID-19, LNP-s, No Preserve , Ruslan-sucrose, Ages 12+ (Spotwish) 03/19/2022 COVID-19, MRNA-LNP, PF, 30 M CG/0.3 mL, 12 YRS AND ABOVE, IM ([facility]) 09/29/2024,10/25/2023 Covid-19, Mrna, Lnp-s, Pf, B ivalent, 30 Mcg, IM, 12 yrs and above (Pfizer) 2022 Pneumococcal Conjugate Vacc, 13 Valent (Prevnar) 01/21/2016 Pneumococcal Conjugate Vacci ne, 20-valent ([id number]) 07/19/2023 Pneumococcal Polysaccharide PPV23 (Pneumovax) 01/13/2011 RSV [...] him and told him to go to [facility]. His sonis coming now to transport him to [facility]. * Telephone Encounter - David Antunez MD - 09/29/2024 3:47 PM EST I called and personally spoke with [facility]. Dr. Irene was his surgeon. I conveyed the results of today's MRI which showed us possible osteomyelitis. Staff are going to urgently message his surgeon so that they can look at the images and decide if something needs to be done before his appointment Wednesday. I attempted to call the patient but he did not answer in it never went to voicedeil. Can you pleasetry to contact the patient and/or his and update them. documented in this encounter Plan of Treatment Upcoming Encounters Date Type Department Care Team (Late st Contact Info) Description 10/02/2024 1:15 PM EST Treatment Radiation Oncology, [address] [address] 10/02/2024 1:30 PM EST Documentation Radiation Oncology, [address] [address] Mansoor Watson MD [address] [place] [phone] 10/03/2024 10:00 AM EST Office Visit W[facility] Care, [facility] [address] [place] [address] Vickey Woodruff MD 27 [place] [address] 10/03/2024 1:15 PM EST Treatment Radiation Oncology, [address] [address] 10/04/2024 1:15 PM EST Treatment Radiation Oncology, [address] [address] 10/06/2024 1:15 PM EST Treatment Radiation Oncology, [address] [address] 10/09/2024 1:15 PM EST Treatment Radiation Oncology, [address] [address] 10/10/2024 1:15 PM EST Treatment Radiation Oncology, [address] [address] 10/11/2024 1:15 PM EST Treatment Radiation Oncology, [address] [place] [address] 10/12/2024 1:15 PM EST Treatment Radiation Oncology, [address] [place] [address] 10/13/2024 1:15 PM EST Treatment Radiation Oncology, [address] [place] [address] 10/16/2024 1:15 PM EST Treatment Radiation Oncology, [address] [place] [address] 10/17/2024 1:15 PM EST Treatment Radiation Oncology, [address] [place] [address] 10/18/2024 1:15 PM EST Treatment Radiation Oncology, [address] [place] [address] 10/19/2024 1:15 PM EST Treatment Radiation Oncology, [address] [place] [address] 10/20/2024 1:15 PM EST Treatment Radiation Oncology, [address] [place] [address] 10/23/2024 1:15 PM EST Treatment Radiation Oncology, [address] [place] [address] 10/24/2024 1:15 PM EST Treatment Radiation Oncology, [address] [place] [address] 10/25/2024 1:15 PM EST Treatment Radiation Oncology, [address] [place] [address] 2024 1:15 PM EST Treatment Radiation Oncology, [address] [place] [address] 10/27/2024 1:15 PM EST Treatment Radiation Oncology, [facility] [address] [place] [address] 10/30/2024 1:15 PM EST Treatment Radiation Oncology, [facility] [address] [place] [address] 10/31/2024 1:15 PM EST Treatment Radiation Oncology, [facility] [address] [place] [address] 11/14/2024 1:15 PM EST Office Visit MOHS Surgery [facility] [address] [place] [address] Supriya Fernandes MD 200 [place] [address] 11/28/2024 10:45 AM EST Office Visit Otolaryngology/Head & Neck/Facial Plastic Surgery [address] [place] [address] Lexie Aldridge MD [address] [place] [address] 12/21/2024 1:30 PM EST Office Visit Dermatology, [facility] 27 [facility] 140 [place] [address] Malaika Guzman PA-C 27 [place] [address] 12/22/2024 12:00 PM EST Office Visit Nephrology, [address] [place] [address] Keisha Gunn MD [address] [place] [address] 01/22/2025 1:30 PM EDT PulmDiagnostic Pulmonary Function Lab [facility] [address] [facility] [place] [address] [address], [address] Sonali Thang [place] [address] 01/22/2025 2:00 PM EDT Office Visit Pulmonary Medicine [facility] [address] [facility] [place] [address] Dominguez Aguilar MD [address] [facility] [place] [address] 01/29/2025 2:00 PM EDT Office Visit Family [facility] [phone] David Antunez MD 21 [place] [address] 02/05/2025 10:00 AM EDT Office Visit Rheumatology, [facility] 400 [place] [address] Rafael Hernandez PA-C [address] [facility], [place] [address] 02/06/2025 1:30 PM EDT [facility] 400 [place] [address] Cherry Warner PA-C [facility] [address] Scheduled Procedures Name Priority Associated Diagnoses Date/Ti [...] encounter Medical Devices Implanted Type Area Senior Accountant Device Identifier Shelf Expiration Date Model / Serial / Lot Mesh Perfix Plug Lg [id number] - [id number] Implanted:Qty : 1 on 02/07/2019 by Jonathan Correia DO at OR [facility] Right: Groin CR BARD : DAVOL 09/04/2023 [id number] / / [id number] Cytal Wndmtx 1lyr [id number](150 Units) - [id number] - [id number] Implanted:Qty : 1 on 08/10/2024 by Lexie Aldridge MD at OR [facility] [place] Left: Leg Upper [employer] [id number] 10/07/2025 [id number] / [id number] / [id number] Cytal Wndmtx 1lyr 7x10cm (70 Units) - [id number] - [id number] Implanted:Qty : 1 on 08/10/2024 by Lexie Aldridge MD at OR [facility] [place] Left: Leg Upper [employer] [id number] 01/05/2026 [id number] / [id number] / [id number] documented as of this encounter Advance Directives Documents on File Type Date Recorded 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
--- OUTSIDE RECORDS SUMMARY | 2024-09-30 19:09 | External Medical Summary | Summary of Care ---
Author Name Unknown Organization [facility] Address [address] [place] [facility] [place] [address] Phone [phone] Care Team Providers Care Group Controller Name Role Phone Fuentes Ashton MD Primary Care Provider [phone] Reason for Visit * Reason Onset Date Comments Test Results 09/29/202409/29 Encounter Details Date Type Department Care Team (Late st Contact Info) Description 09/29/2024 Telephone [facility] 21 [facility] [place] [address] David Antunez MD 21 [place] [address] Test Results (09/29) Allergies Active [...] Release (PriLOSEC)Indicat ions:Gastroesopha geal reflux disease without esophagitis,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 1 Each 11 07/06/20 24 Active Additional Information Patient not taking.Reported on 09/29/2024 Albuterol Sulfate (2.5 MG/3ML) 0.083% Inhalation Nebulization Solution (Proventil)Indica tions:COPD, group C, by GOLD 2017 classification ([facility]) Inhale 1 Vial via nebulizer [...] from 2018 Atherosclerotic heart diseas e of [place] coronary artery without angina pectoris 05/31/2020 Nuclear [...] chronic kidney disease 08/03/2023 08/03/2023 Atherosclerosis of [place] co ronary artery without angina pectoris 02/01/2023 [...] mRNA, LNP-s, No Pre serve, 2-Dose Series (zoidu) 08/15/2021,01/31/2021,01/03/2021 COVID-19, LNP-s, No Preserve , Ruslan-sucrose, Ages 12+ (zoidu) 03/19/2022 COVID-19, MRNA-LNP, PF, 30 M CG/0.3 mL, 12 YRS AND ABOVE, IM ([facility]) 09/29/2024,10/25/2023 Covid-19, Mrna, Lnp-s, Pf, B ivalent, 30 Mcg, IM, 12 yrs and above (Pfizer) 2022 Pneumococcal Conjugate Vacc, 13 Valent (Prevnar) 01/21/2016 Pneumococcal Conjugate Vacci ne, 20-valent ([id number]) 07/19/2023 Pneumococcal Polysaccharide PPV23 (Pneumovax) 01/13/2011 RSV [...] EST I called and personally spoke with [facility]. Dr. Irene was his surgeon. I conveyed the results of today's MRI which showed us possible osteomyelitis. Staff are going to urgently message his surgeon so that they can look at the images and decide if something needs to be done before his appointment Wednesday. I attempted to call the patient but he did not answer in it never went to voicesdil. Can you pleasetry to contact the patient and/or his and update them. documented in this encounter Plan of Treatment Upcoming Encounters Date Type Department Care Team (Late st Contact Info) Description 10/02/2024 1:15 PM EST Treatment Radiation Oncology, [address] [address] 10/02/2024 1:30 PM EST Documentation Radiation Oncology, [address] [address] Mansoor Watson MD [address] [place] [phone] 10/03/2024 10:00 AM EST Office Visit Wound Care, [facility] 400 [place] [address] Vickey Woodruff MD 27 [place] [address] 10/03/2024 1:15 PM EST Treatment Radiation Oncology, [address] [address] 10/04/2024 1:15 PM EST Treatment Radiation Oncology, [address] [address] 10/06/2024 1:15 PM EST Treatment Radiation Oncology, [address] [address] 10/09/2024 1:15 PM EST Treatment Radiation Oncology, [address] [address] 10/10/2024 1:15 PM EST Treatment Radiation Oncology, [address] [address] 10/11/2024 1:15 PM EST Treatment Radiation Oncology, [address] [place] [address] 10/12/2024 1:15 PM EST Treatment Radiation Oncology, [address] [place] [address] 10/13/2024 1:15 PM EST Treatment Radiation Oncology, [address] [place] [address] 10/16/2024 1:15 PM EST Treatment Radiation Oncology, [address] [place] [address] 10/17/2024 1:15 PM EST Treatment Radiation Oncology, [address] [place] [address] 10/18/2024 1:15 PM EST Treatment Radiation Oncology, [address] [place] [address] 10/19/2024 1:15 PM EST Treatment Radiation Oncology, [address] [place] [address] 10/20/2024 1:15 PM EST Treatment Radiation Oncology, [address] [place] [address] 10/23/2024 1:15 PM EST Treatment Radiation Oncology, [address] [place] [address] 10/24/2024 1:15 PM EST Treatment Radiation Oncology, [address] [place] [address] 10/25/2024 1:15 PM EST Treatment Radiation Oncology, [address] [place] [address] 2024 1:15 PM EST Treatment Radiation Oncology, [address] [place] [address] 10/27/2024 1:15 PM EST Treatment Radiation Oncology, [facility] [address] [place] [address] 10/30/2024 1:15 PM EST Treatment Radiation Oncology, [facility] [address] [place] [address] 10/31/2024 1:15 PM EST Treatment Radiation Oncology, [facility] [address] [place] [address] 11/14/2024 1:15 PM EST Office Visit MOHS Surgery [facility] [address] [place] [address] Supriya Fernandes MD [address] [place] [address] 11/28/2024 10:45 AM EST Office Visit Otolaryngology/Head & Neck/Facial Plastic Surgery [address] [place] [address] Lexie Aldridge MD [address] [place] [address] 12/21/2024 1:30 PM EST Office Visit Dermatology, [facility] 27 [facility] 140 [place] [address] Malaika Guzman PA-C 27 [place] [address] 12/22/2024 12:00 PM EST Office Visit Nephrology, [address] [place] [address] Keisha Gunn MD [address] [place] [address] 01/22/2025 1:30 PM EDT PulmDiagnostic Pulmonary Function Lab [facility] [address] [facility] [place] [address] [address], [address] Sonali Thang [place] [address] 01/22/2025 2:00 PM EDT Office Visit Pulmonary Medicine [facility] [address] [facility] [place] [phone] Dominguez Aguilar MD [address] [facility] [place] [address] 01/29/2025 2:00 PM EDT Office Visit Family [facility] 21 [facility] [phone] David Antunez MD 21 [facility] [place] [address] 02/05/2025 10:00 AM EDT Office Visit Rheumatology, [facility] 400 [place] [address] Rafael Hernandez PA-C 9110 [facility], [place] [address] 02/06/2025 1:30 PM EDT [facility] 400 [facility] [place] [address] Cherry Warner PA-C 400 [facility] [address] Scheduled Procedures Name Priority Associated Diagnoses Date/Ti [...] this encounter Medical Devices Implanted Type Area Document Control Clerk Device Identifier Shelf Expiration Date Model / Serial / Lot Mesh Perfix Plug Lg [id number] - [id number] Implanted:Qty : 1 on 02/07/2019 by Jonathan Correia DO at OR [facility] Right: Groin CR BARD : DAVOL 09/04/2023 [id number] / / [id number] Cytal Wndmtx 1lyr [id number](150 Units) - [id number] - [id number] Implanted:Qty : 1 on 08/10/2024 by Lexie Aldridge MD at [place] [facility] Left: Leg Upper [employer] [id number] 10/07/2025 [id number] / [id number] / [id number] Cytal Wndmtx 1lyr 7x10cm (70 Units) - [id number] - [id number] Implanted:Qty : 1 on 08/10/2024 by Lexie Aldridge MD at OR [facility] Left: Leg Upper [employer] [id number] 01/05/2026 [id number] / [id number] / [id number] documented as of this encounter Advance Directives Documents on File Type Date Recorded Patient Census Taker Expl anation Advance Directives and Living Will [...] patient or by statute hierarchy) [facility] Adult Child Emergency Contact Care Teams Group Controller Relationship Specialty Start Date End Date Fuentes Ashton MD 21 [place] [address] PCP - General Family Medicine 01/30/22 documented as of this encounter
--- OUTSIDE RECORDS SUMMARY | 2024-09-30 19:09 | External Medical Summary | Summary of Care ---
Author Name Unknown Organization [facility] Address [address] [place] [place] [place] [address] Phone [phone] Care Team Providers Care [place]. 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 [...] from 2018 Atherosclerotic heart diseas e of [place] coronary artery without angina pectoris 05/31/2020 Nuclear [...] neoplasm) 0 03/09/2018 Overview (03/09/2018): MRI 02/23 longterm (current) use of systemic [...] chronic kidney disease 08/03/2023 08/03/2023 Atherosclerosis of [place] co ronary artery without angina pectoris 02/01/2023 [...] mRNA, LNP-s, No Pre serve, 2-Dose Series (BotanoCap) 08/15/2021,01/31/2021,01/03/2021 COVID-19, LNP-s, No Preserve , Ruslan-sucrose, Ages 12+ ([employer]) 03/19/2022 COVID-19, MRNA-LNP, PF, 30 M CG/0.3 mL, 12 YRS AND ABOVE, IM ([facility] 09/29/2024,10/25/2023 Covid-19, Mrna, Lnp-s, Pf, B ivalent, 30 Mcg, IM, 12 yrs and above (Pfizer) 2022 Pneumococcal Conjugate Vacc, 13 Valent (Prevnar) 01/21/2016 Pneumococcal Conjugate Vacci ne, 20-valent ([id number]) 07/19/2023 Pneumococcal Polysaccharide PPV23 (Pneumovax) 01/13/2011 RSV [...] 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 Dr. Irene was his surgeon. I conveyed the results of today's MRI which showed us possible osteomyelitis. Staff are going to urgently message his surgeon so that they can look at the images and decide if something needs to be done before his appointment Wednesday. I attempted to call the patient but he did not answer in it never went to voicemail. Can you pleasetry to contact the patient and/or his and update them. documented in this encounter Plan of Treatment Upcoming Encounters Date Type Department Care Team (Late st Contact Info) Description 10/02/2024 1:15 PM EST Treatment Radiation Oncology, [address] [place] [address] 10/02/2024 1:30 PM EST Documentation Radiation Oncology, [address] [place] [address] Mansoor Watson MD [address] [place] [facility] [place] [phone] 10/03/2024 10:00 AM EST Office Visit Wound Care, [facility] 400 [place] [address] Vickey Woodruff MD 27 [place] [address] 10/03/2024 1:15 PM EST Treatment Radiation Oncology, [address] [place] [address] 10/04/2024 1:15 PM EST Treatment Radiation Oncology, [address] [place] [address] 10/06/2024 1:15 PM EST Treatment Radiation Oncology, [address] [place] [address] 10/09/2024 1:15 PM EST Treatment Radiation Oncology, [address] [place] [address] 10/10/2024 1:15 PM EST Treatment Radiation Oncology, [address] [address] 10/11/2024 1:15 PM EST Treatment Radiation Oncology, [address] [place] [address] 10/12/2024 1:15 PM EST Treatment Radiation Oncology, [address] [address] 10/13/2024 1:15 PM EST Treatment Radiation Oncology, [address] [place] [address] 10/16/2024 1:15 PM EST Treatment Radiation Oncology, [address] [place] [address] 10/17/2024 1:15 PM EST Treatment Radiation Oncology, [address] [place] [address] 10/18/2024 1:15 PM EST Treatment Radiation Oncology, [address] [place] [address] 10/19/2024 1:15 PM EST Treatment Radiation Oncology, [address] [place] [address] 10/20/2024 1:15 PM EST Treatment Radiation Oncology, [address] [place] [address] 10/23/2024 1:15 PM EST Treatment Radiation Oncology, [address] [place] [address] 10/24/2024 1:15 PM EST Treatment Radiation Oncology, [address] [place] [address] 10/25/2024 1:15 PM EST Treatment Radiation Oncology, [address] [place] [address] 2024 1:15 PM EST Treatment Radiation Oncology, [address] [place] [address] 10/27/2024 1:15 PM EST Treatment Radiation Oncology, [address] [place] [address] 10/30/2024 1:15 PM EST Treatment Radiation Oncology, [address] [place] [address] 10/31/2024 1:15 PM EST Treatment Radiation Oncology, [facility] [address] [place] [address] 11/14/2024 1:15 PM EST Office Visit MOHS Surgery [facility] [place] [address] [place] [address] Supriya Fernandes MD [address] [place] [address] 11/28/2024 10:45 AM EST Office Visit Otolaryngology/Head & Neck/Facial Plastic Surgery [address] [place] [facility] [place] [address] Lexie Aldridge MD [address] [place], [place] [phone] 12/21/2024 1:30 PM EST Office Visit Dermatology, [facility] [place] [address] [place] [phone] Malaika Guzman PA-C [address] [place] [address] 12/22/2024 12:00 PM EST Office Visit Nephrology, [facility] 400 [place], [place] [phone] Keisha Gunn MD [address] [place] [phone] 01/22/2025 1:30 PM EDT PulmDiagnostic Pulmonary Function Lab [facility] [address] [place] [address] [address], [address] [place] [address] 01/22/2025 2:00 PM EDT Office Visit Pulmonary Medicine [facility] [place] [address] [place] [phone] Dominguez Aguilar MD [address] [place] [address] 01/29/2025 2:00 PM EDT Office Visit Family [facility] [place] 21 [facility] [place] [phone] David Antunez MD 21 [place] [address] 02/05/2025 10:00 AM EDT Office Visit Rheumatology, [facility] 400 [place] [address] Rafael Hernandez PA-C [address] [place] [address] 02/06/2025 1:30 PM EDT Office Visit Cardiology, [place] 400 [place] [address] Cherry Warner PA-C 400 [place] [address] Scheduled Procedures Name Priority Associated Diagnoses Date/Ti [...] this encounter Medical Devices Implanted Type Area Community Health Nurse Device Identifier Shelf Expiration Date Model / Serial / Lot Mesh Perfix Plug Lg [id number] - [id number] Implanted:Qty : 1 on 02/07/2019 by Jonathan Correia DO at OR [facility] Right: Groin CR BARD : DAVOL 09/04/2023 [id number] / / [id number] Cytal Wndmtx 1lyr [id number](150 Units) - [id number] - [id number] Implanted:Qty : 1 on 08/10/2024 by Lexie Aldridge MD [place] [facility] [place]: Leg Upper [employer] [id number] 10/07/2025 [id number] / [id number] / [id number] Cytal Wndmtx 1lyr 7x10cm (70 Units) - [id number] - [id number] Implanted:Qty : 1 on 08/10/2024 by Lexie Aldridge MD [place] [facility] Left: Leg Upper [employer] [id number] 01/05/2026 [id number] / [id number] / [id number] documented as of this encounter Advance Directives Documents on File Type Date Recorded Patient Order Desk Caller Expl anation Advance Directives and Living Will [...] [place] Adult Child Emergency Contact Care Teams U.S. Representative Relationship Specialty Start Date End Date Fuentes Ashton MD [address] [place] [phone] PCP - General Family Medicine 01/30/22 documented as of this encounter
--- OUTSIDE RECORDS SUMMARY | 2024-09-30 19:09 | External Medical Summary | Summary of Care ---
Author Name Unknown Organization [facility] Address [address] [facility] [place] [place] [address] Phone [phone] Care Team Providers Care Bag Repairer Name Role Phone Fuentes Ashton MD Primary Care Provider [phone] Reason for Visit * Reason Onset Date Comments Test Results 09/29/202409/29 Encounter Details Date Type Department Care Team (Late st Contact Info) Description 09/29/2024 Telephone [facility] 21 [facility] [place] [address] David Antunez MD 21 [place] [address] Test Results (09/29) Allergies Active [...] Release (PriLOSEC)Indicat ions:Gastroesopha geal reflux disease without esophagitis,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) use of systemic [...] chronic kidney disease 08/03/2023 08/03/2023 Atherosclerosis of [place] co ronary artery without angina pectoris 02/01/2023 [...] mRNA, LNP-s, No Pre serve, 2-Dose Series ([employer]int) 08/15/2021,01/31/2021,01/03/2021 COVID-19, LNP-s, No Preserve , Ruslan-sucrose, Ages 12+ ([employer]) 03/19/2022 COVID-19, MRNA-LNP, PF, 30 M CG/0.3 mL, 12 YRS AND ABOVE, IM ([facility]) 09/29/2024,10/25/2023 Covid-19, Mrna, Lnp-s, Pf, B ivalent, 30 Mcg, IM, 12 yrs and above (Pfizer) 2022 Pneumococcal Conjugate Vacc, 13 Valent (Prevnar) 01/21/2016 Pneumococcal Conjugate Vacci ne, 20-valent ([id number]) 07/19/2023 Pneumococcal Polysaccharide PPV23 (Pneumovax) 01/13/2011 RSV [...] 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 Dr. Irene was his surgeon. I conveyed [...] 1:15 PM EST Treatment Radiation Oncology, [address] [place] [address] 10/02/2024 1:30 PM EST Documentation Radiation Oncology, [address] [place] [address] Mansoor Watson MD [address] [facility] [place] [phone] 10/03/2024 10:00 AM EST Office Visit Wound Care, [facility] 400 [place] [address] Vickey Woodruff MD 27 [place] [address] 10/03/2024 1:15 PM EST Treatment Radiation Oncology, [address] [place] [address] 10/04/2024 1:15 PM EST Treatment Radiation Oncology, [address] [place] [address] 10/06/2024 1:15 PM EST Treatment Radiation Oncology, [address] [place] [address] 10/09/2024 1:15 PM EST Treatment Radiation Oncology, [address] [place] [address] 10/10/2024 1:15 PM EST Treatment Radiation Oncology, [address] [address] 10/11/2024 1:15 PM EST Treatment Radiation Oncology, [address] [place] [address] 10/12/2024 1:15 PM EST Treatment Radiation Oncology, [address] [address] 10/13/2024 1:15 PM EST Treatment Radiation Oncology, [address] [place] [address] 10/16/2024 1:15 PM EST Treatment Radiation Oncology, [address] [place] [address] 10/17/2024 1:15 PM EST Treatment Radiation Oncology, [address] [place] [address] 10/18/2024 1:15 PM EST Treatment Radiation Oncology, [address] [place] [address] 10/19/2024 1:15 PM EST Treatment Radiation Oncology, [address] [place] [address] 10/20/2024 1:15 PM EST Treatment Radiation Oncology, [address] [place] [address] 10/23/2024 1:15 PM EST Treatment Radiation Oncology, [address] [place] [address] 10/24/2024 1:15 PM EST Treatment Radiation Oncology, [address] [place] [address] 10/25/2024 1:15 PM EST Treatment Radiation Oncology, [address] [place] [address] 2024 1:15 PM EST Treatment Radiation Oncology, [address] [place] [address] 10/27/2024 1:15 PM EST Treatment Radiation Oncology, [address] [place] [address] 10/30/2024 1:15 PM EST Treatment Radiation Oncology, [address] [place] [address] 10/31/2024 1:15 PM EST Treatment Radiation Oncology, [facility] [address] [place] [address] 11/14/2024 1:15 PM EST Office Visit MOHS Surgery [facility] [place] [address] [place] [address] Supriya Fernandes MD [address] [place] [address] 11/28/2024 10:45 AM EST Office Visit Otolaryngology/Head & Neck/Facial Plastic Surgery [address] [place] [facility] [address] Lexie Aldridge MD [address] [place], [place] [phone] 12/21/2024 1:30 PM EST Office Visit Dermatology, [facility] [place] [address] [place] [phone] Malaika Guzman PA-C [address] [place] [address] 12/22/2024 12:00 PM EST Office Visit Nephrology, [facility] 400 [place], [place] [phone] Keisha Gunn MD [address] [place] [id number] 01/22/2025 1:30 PM EDT PulmDiagnostic Pulmonary Function Lab [facility] [address] [address] [address], [address] [address] 01/22/2025 2:00 PM EDT Office Visit Pulmonary Medicine [facility] [place] [address] [phone] Dominguez Aguilar MD [address] [address] 01/29/2025 2:00 PM EDT Office Visit Family [facility], [place] 21 [place] [phone] David Antunez MD 21 [place] [address] 02/05/2025 10:00 AM EDT Office Visit Rheumatology, [facility] 400 [place] [address] Rafael Hernandez PA-C [address] [place] [address] 02/06/2025 1:30 PM EDT Office Visit Cardiology, [place] 400 [place] [address] Cherry Warner PA-C 400 [place] [address] Scheduled Procedures Name Priority Associated Diagnoses Date/Ti [...] this encounter Medical Devices Implanted Type Area Adviser Sales Device Identifier Shelf Expiration Date Model / Serial / Lot Mesh Perfix Plug Lg [id number] - [id number] Implanted:Qty : 1 on 02/07/2019 by Jonathan Correia DO at OR [facility] Right: Groin CR BARD : DAVOL 09/04/2023 [id number] / / [id number] Cytal Wndmtx 1lyr [id number](150 Units) - [id number] - [id number] Implanted:Qty : 1 on 08/10/2024 by Lexie Aldridge MD at [place] [facility] Left: Leg Upper [employer] [id number] 10/07/2025 [id number] / [id number] / [id number] Cytal Wndmtx 1lyr 7x10cm (70 Units) - [id number] - [id number] Implanted:Qty : 1 on 08/10/2024 by Lexie Aldridge MD at OR [facility] Left: Leg Upper [employer] [id number] 01/05/2026 [id number] / [id number] / [id number] documented as of this encounter Advance Directives Documents on File Type Date Recorded Patient Guest Services Director Expl anation Advance Directives and Living [...] Cross Adult Child Emergency Contact Care Teams Bag Repairer Relationship Specialty Start Date End Date Fuentes Ashton MD [address] [phone] PCP - General Family Medicine 01/30/22 documented as of this encounter
--- OUTSIDE RECORDS SUMMARY | 2024-09-30 19:09 | External Medical Summary | Summary of Care ---
Author Name Unknown Organization [facility] Address [address] [facility] [place] [address] Phone [phone] Care Team Providers Care Senior Oracle Dba Name Role Phone Fuentes Ashton MD Primary Care Provider [phone] Reason for Visit * Reason Onset Date Comments Test Results 09/29/202409/29 Encounter Details Date Type Department Care Team (Late st Contact Info) Description 09/29/2024 Telephone [facility] 21 [facility] [place] [address] David Antunez MD 21 [place] [address] Test Results (09/29) Allergies Active [...] (PriLOSEC)Indicat ions:Gastroesopha geal reflux disease without esophagitis,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 systemic 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 Take [...] ons:COPD, moderate ([facility]) Inhale 2 Puffs by mouth every [...] from 2018 Atherosclerotic heart diseas e of [place] coronary artery without angina pectoris 05/31/2020 [...] chronic kidney disease 08/03/2023 08/03/2023 Atherosclerosis of [place] co ronary artery without angina pectoris [...] mRNA, LNP-s, No Pre serve, 2-Dose Series ([employer]) 08/15/2021,01/31/2021,01/03/2021 COVID-19, LNP-s, No Preserve , Ruslan-sucrose, Ages 12+ ([employer]grien) 03/19/2022 COVID-19, MRNA-LNP, PF, 30 M CG/0.3 mL, 12 YRS AND ABOVE, IM ([facility]) 09/29/2024,10/25/2023 Covid-19, Mrna, Lnp-s, Pf, B ivalent, 30 Mcg, IM, 12 yrs and above (Pfizer) 2022 Pneumococcal Conjugate Vacc, 13 Valent (Prevnar) 01/21/2016 Pneumococcal Conjugate Vacci ne, 20-valent ([id number]) 07/19/2023 Pneumococcal Polysaccharide PPV23 (Pneumovax) 01/13/2011 RSV [...] 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 Dr. Irene was his surgeon. I conveyed [...] 1:15 PM EST Treatment Radiation Oncology, [address] [place] [address] 10/02/2024 1:30 PM EST Documentation Radiation Oncology, [address] [place] [address] Mansoor Watson MD [address] [facility] [place] [phone] 10/03/2024 10:00 AM EST Office Visit Wound Care, [facility] 400 [place] [address] Vickey Woodruff MD 27 [place] [address] 10/03/2024 1:15 PM EST Treatment Radiation Oncology, [address] [place] [address] 10/04/2024 1:15 PM EST Treatment Radiation Oncology, [address] [place] [address] 10/06/2024 1:15 PM EST Treatment Radiation Oncology, [address] [place] [address] 10/09/2024 1:15 PM EST Treatment Radiation Oncology, [address] [place] [address] 10/10/2024 1:15 PM EST Treatment Radiation Oncology, [address] [address] 10/11/2024 1:15 PM EST Treatment Radiation Oncology, [address] [place] [address] 10/12/2024 1:15 PM EST Treatment Radiation Oncology, [address] [address] 10/13/2024 1:15 PM EST Treatment Radiation Oncology, [address] [place] [address] 10/16/2024 1:15 PM EST Treatment Radiation Oncology, [address] [place] [address] 10/17/2024 1:15 PM EST Treatment Radiation Oncology, [address] [place] [address] 10/18/2024 1:15 PM EST Treatment Radiation Oncology, [address] [place] [address] 10/19/2024 1:15 PM EST Treatment Radiation Oncology, [address] [place] [address] 10/20/2024 1:15 PM EST Treatment Radiation Oncology, [address] [place] [address] 10/23/2024 1:15 PM EST Treatment Radiation Oncology, [address] [place] [address] 10/24/2024 1:15 PM EST Treatment Radiation Oncology, [address] [place] [address] 10/25/2024 1:15 PM EST Treatment Radiation Oncology, [address] [place] [address] 2024 1:15 PM EST Treatment Radiation Oncology, [address] [place] [address] 10/27/2024 1:15 PM EST Treatment Radiation Oncology, [address] [place] [address] 10/30/2024 1:15 PM EST Treatment Radiation Oncology, [address] [place] [address] 10/31/2024 1:15 PM EST Treatment Radiation Oncology, [facility] [address] [place] [address] 11/14/2024 1:15 PM EST Office Visit MOHS Surgery [facility] [place] [address] [place] [address] Supriya Fernandes MD [address] [place] [address] 11/28/2024 10:45 AM EST Office Visit Otolaryngology/Head & Neck/Facial Plastic Surgery [address] [place] [facility] [place] [address] Lexie Aldridge MD [address] [place], [place] [phone] 12/21/2024 1:30 PM EST Office Visit Dermatology, [facility] [place] [address] [place] [phone] Malaika Guzman PA-C [address] [place] [address] 12/22/2024 12:00 PM EST Office Visit Nephrology, [facility] [address] [place], [place] [phone] Keisha Gunn MD [address] [place] [address] 01/22/2025 1:30 PM EDT PulmDiagnostic Pulmonary Function Lab [facility] [address] [address] [address], [address] [address] 01/22/2025 2:00 PM EDT Office Visit Pulmonary Medicine [facility] [place] [address] [phone] Dominguez Aguilar MD [address] [address] 01/29/2025 2:00 PM EDT Office Visit Family [facility], [place] 21 [place] [phone] David Antunez MD 21 [place] [address] 02/05/2025 10:00 AM EDT Office Visit Rheumatology, [facility] [address] [place] [address] Rafael Hernandez PA-C [address] [facility] [place] [address] 02/06/2025 1:30 PM EDT Office Visit Cardiology, [place] 400 [facility] [address] Cherry Warner PA-C 400 [place] [address] Scheduled Procedures Name Priority Associated Diagnoses Date/Ti [...] this encounter Medical Devices Implanted Type Area Hot Repairman Device Identifier Shelf Expiration Date Model / Serial / Lot Mesh Perfix Plug Lg [id number] - [id number] Implanted:Qty : 1 on 02/07/2019 by Jonathan Correia DO at OR [facility] Right: Groin CR BARD : DAVOL 09/04/2023 [id number] / / [id number] Cytal Wndmtx 1lyr [id number](150 Units) - [id number] - [id number] Implanted:Qty : 1 on 08/10/2024 by Lexie Aldridge MD at OR [facility] Left: Leg Upper [employer] [id number] 10/07/2025 [id number] / [id number] / [id number] Cytal Wndmtx 1lyr 7x10cm (70 Units) - [id number] - [id number] Implanted:Qty : 1 on 08/10/2024 by Lexie Aldridge MD at OR [facility] Left: Leg Upper [employer] [id number] 01/05/2026 [id number] / [id number] / [id number] documented as of this encounter Advance Directives Documents on File Type Date Recorded 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
--- OUTSIDE RECORDS SUMMARY | 2024-09-30 19:09 | External Medical Summary | Summary of Care ---
Author Name Unknown Organization [facility] Address [address] [facility] [place] [address] Phone [phone] Care Team Providers Care Agile Test Lead Name Role Phone Fuentes Ashton MD Primary Care Provider [phone] Reason for Visit * Reason Onset Date Comments Test Results 09/29/202409/29 Encounter Details Date Type Department Care Team (Late st Contact Info) Description 09/29/2024 Telephone [facility] 21 [facility] [place] [address] David Antunez MD 21 [place] [address] Test Results (09/29) Allergies Active [...] Release (PriLOSEC)Indicat ions:Gastroesopha geal reflux disease without esophagitis,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 1 Each 11 07/06/20 24 Active Additional Information Patient not taking.Reported on 09/29/2024 Albuterol Sulfate (2.5 MG/3ML) 0.083% Inhalation Nebulization Solution (Proventil)Indica tions:COPD, group C, by GOLD 2017 classification ([facility] [...] mRNA, LNP-s, No Pre serve, 2-Dose Series ([employer] Life) 08/15/2021,01/31/2021,01/03/2021 COVID-19, LNP-s, No Preserve , Ruslan-sucrose, Ages 12+ ([employer]) 03/19/2022 COVID-19, MRNA-LNP, PF, 30 M CG/0.3 mL, 12 YRS AND ABOVE, IM ([facility] 09/29/2024,10/25/2023 Covid-19, Mrna, Lnp-s, Pf, B ivalent, 30 Mcg, IM, 12 yrs and above (Pfizer) 2022 Pneumococcal Conjugate Vacc, 13 Valent (Prevnar) 01/21/2016 Pneumococcal Conjugate Vacci ne, 20-valent (Yyentdh23) 07/19/2023 Pneumococcal Polysaccharide PPV23 (Pneumovax) 01/13/2011 RSV [...] EST I called and personally spoke with [facility]. Dr. Irene was his surgeon. I conveyed [...] 10/02/2024 1:15 PM EST Treatment Radiation Oncology, [address] [place] [address] 10/02/2024 1:30 PM EST Documentation Radiation Oncology, [address] [place] [address] Mansoor Watson MD [address] [facility] [place] [address] 10/03/2024 10:00 AM EST Office Visit Wound Care, [facility] 400 [place] [address] Vickey Woodruff MD 27 [place] [address] 10/03/2024 1:15 PM EST Treatment Radiation Oncology, [address] [place] [address] 10/04/2024 1:15 PM EST Treatment Radiation Oncology, [address] [place] [address] 10/06/2024 1:15 PM EST Treatment Radiation Oncology, [address] [place] [address] 10/09/2024 1:15 PM EST Treatment Radiation Oncology, [address] [place] [address] 10/10/2024 1:15 PM EST Treatment Radiation Oncology, [address] [address] 10/11/2024 1:15 PM EST Treatment Radiation Oncology, [address] [place] [address] 10/12/2024 1:15 PM EST Treatment Radiation Oncology, [address] [address] 10/13/2024 1:15 PM EST Treatment Radiation Oncology, [address] [place] [address] 10/16/2024 1:15 PM EST Treatment Radiation Oncology, [address] [place] [address] 10/17/2024 1:15 PM EST Treatment Radiation Oncology, [address] [place] [address] 10/18/2024 1:15 PM EST Treatment Radiation Oncology, [address] [place] [address] 10/19/2024 1:15 PM EST Treatment Radiation Oncology, [address] [place] [address] 10/20/2024 1:15 PM EST Treatment Radiation Oncology, [address] [place] [address] 10/23/2024 1:15 PM EST Treatment Radiation Oncology, [address] [place] [address] 10/24/2024 1:15 PM EST Treatment Radiation Oncology, [address] [place] [address] 10/25/2024 1:15 PM EST Treatment Radiation Oncology, [address] [place] [address] 2024 1:15 PM EST Treatment Radiation Oncology, [address] [place] [address] 10/27/2024 1:15 PM EST Treatment Radiation Oncology, [address] [place] [address] 10/30/2024 1:15 PM EST Treatment Radiation Oncology, [address] [place] [address] 10/31/2024 1:15 PM EST Treatment Radiation Oncology, [facility] [address] [place] [address] 11/14/2024 1:15 PM EST Office Visit MOHS Surgery [facility] [place] [address] [place] [address] Supriya Fernandes MD [address] [place] [address] 11/28/2024 10:45 AM EST Office Visit Otolaryngology/Head & Neck/Facial Plastic Surgery [address] [place] [address] Lexie Aldridge MD [address] [place], [place] [phone] 12/21/2024 1:30 PM EST Office Visit Dermatology, [facility] [place] [address] [place] [phone] Malaika Guzman PA-C [address] [place] [address] 12/22/2024 12:00 PM EST Office Visit Nephrology, [facility] 400 [place], [place] [phone] Keisha Gunn MD [address] [place] [address] 01/22/2025 1:30 PM EDT PulmDiagnostic Pulmonary Function Lab [facility] [address] [address] [address], [address] [address] 01/22/2025 2:00 PM EDT Office Visit Pulmonary Medicine [facility] [place] [address] [phone] Dominguez Aguilar MD [address] [address] 01/29/2025 2:00 PM EDT Office Visit Family [facility], [place] 21 [place] [phone] David Antunez MD 21 [place] [address] 02/05/2025 10:00 AM EDT Office Visit Rheumatology, [facility] 400 [place] [address] Rafael Hernandez PA-C [address] [place] [address] 02/06/2025 1:30 PM EDT Office Visit Cardiology, [place] 400 [place] [address] Cherry Warner PA-C 400 [place] [address] Scheduled Procedures Name Priority Associated Diagnoses Date/Ti [...] this encounter Medical Devices Implanted Type Area Oceanographer Geological Device Identifier Shelf Expiration Date Model / Serial / Lot Mesh Perfix Plug Lg [id number] - [id number] Implanted:Qty : 1 on 02/07/2019 by Jonathan Correia DO at OR [facility] Right: Groin CR BARD : DAVOL 09/04/2023 [id number] / / [id number] Cytal Wndmtx 1lyr [id number](150 Units) - [id number] - [id number] Implanted:Qty : 1 on 08/10/2024 by Lexie Aldridge MD at [place] [facility] Left: Leg Upper [employer] [id number] 10/07/2025 [id number] / [id number] / [id number] Cytal Wndmtx 1lyr 7x10cm (70 Units) - [id number] - [id number] Implanted:Qty : 1 on 08/10/2024 by Lexie Aldridge MD at [place] [facility] Left: Leg Upper [employer] [id number] 01/05/2026 [id number] / [id number] / [id number] documented as of this encounter Advance Directives Documents on File Type Date Recorded Patient Low Vision Therapist Expl anation Advance Directives and Living Will [...] Cross Adult Child Emergency Contact Care Teams Agile Test Lead Relationship Specialty Start Date End Date Fuentes Ashton MD [address] [phone] PCP - General Family Medicine 01/30/22 documented as of this encounter
--- OUTSIDE RECORDS SUMMARY | 2024-09-30 19:09 | External Medical Summary | Summary of Care ---
Author Name Unknown Organization [facility] Address [address] [place] [place] [address] Phone [phone] Care Team Providers Care Bread Pan Greaser Name Role Phone Fuentes Ashton MD Primary Care Provider [phone] Reason for Visit * Reason Onset Date Comments Test Results 09/29/202409/29 Encounter Details Date Type Department Care Team (Late st Contact Info) Description 09/29/2024 Telephone [facility] [place] 21 [facility] [place] [address] David Antunez MD 21 [place] [address] Test Results (09/29) Allergies Active [...] Release (PriLOSEC)Indicat ions:Gastroesopha geal reflux disease without esophagitis,rn long term care (current) use of systemic [...] from 2018 Atherosclerotic heart diseas e of tolowa dee-ni' coronary artery without angina pectoris 05/31/2020 Nuclear [...] neoplasm) 0 03/09/2018 Overview (03/09/2018): MRI 02/23 MCC (current) use of systemic [...] LNP-s, No Pre serve, 2-Dose Series ([employer]) 08/15/2021,01/31/2021,01/03/2021 COVID-19, LNP-s, No Preserve , Ruslan-sucrose, Ages 12+ ([employer]) 03/19/2022 COVID-19, MRNA-LNP, PF, 30 M CG/0.3 mL, 12 YRS AND ABOVE, IM (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 Dr. Irene was his surgeon. I conveyed [...] 10/02/2024 1:15 PM EST Treatment Radiation Oncology, [address] [place] [address] 10/02/2024 1:30 PM EST Documentation Radiation Oncology, [address] [place] [address] Mansoor Watson MD [address] [place] [phone] 10/03/2024 10:00 AM EST Office Visit Wound Care, [facility] [address] [place] [address] Vickey Woodruff MD 27 [place] [address] 10/03/2024 1:15 PM EST Treatment Radiation Oncology, [address] [place] [address] 10/04/2024 1:15 PM EST Treatment Radiation Oncology, [address] [place] [address] 10/06/2024 1:15 PM EST Treatment Radiation Oncology, [address] [place] [address] 10/09/2024 1:15 PM EST Treatment Radiation Oncology, [address] [place] [address] 10/10/2024 1:15 PM EST Treatment Radiation Oncology, [address] [address] 10/11/2024 1:15 PM EST Treatment Radiation Oncology, [address] [place] [address] 10/12/2024 1:15 PM EST Treatment Radiation Oncology, [address] [address] 10/13/2024 1:15 PM EST Treatment Radiation Oncology, [address] [place] [address] 10/16/2024 1:15 PM EST Treatment Radiation Oncology, [address] [place] [address] 10/17/2024 1:15 PM EST Treatment Radiation Oncology, [address] [place] [address] 10/18/2024 1:15 PM EST Treatment Radiation Oncology, [address] [place] [address] 10/19/2024 1:15 PM EST Treatment Radiation Oncology, [address] [place] [address] 10/20/2024 1:15 PM EST Treatment Radiation Oncology, [address] [place] [address] 10/23/2024 1:15 PM EST Treatment Radiation Oncology, [address] [place] [address] 10/24/2024 1:15 PM EST Treatment Radiation Oncology, [address] [place] [address] 10/25/2024 1:15 PM EST Treatment Radiation Oncology, [address] [place] [address] 2024 1:15 PM EST Treatment Radiation Oncology, [address] [place] [address] 10/27/2024 1:15 PM EST Treatment Radiation Oncology, [address] [place] [address] 10/30/2024 1:15 PM EST Treatment Radiation Oncology, [address] [place] [address] 10/31/2024 1:15 PM EST Treatment Radiation Oncology, [facility] [address] [place] [address] 11/14/2024 1:15 PM EST Office Visit MOHS Surgery [facility] [place] [address] [place] [address] Supriya Fernandes MD [address] [place] [address] 11/28/2024 10:45 AM EST Office Visit Otolaryngology/Head & Neck/Facial Plastic Surgery [address] [place] [facility] [place] [address] Lexie Aldridge MD [address] [place], [place] [phone] 12/21/2024 1:30 PM EST Office Visit Dermatology, [facility] [place] [address] [place] [phone] Malaika Guzman PA-C [address] [place] [address] 12/22/2024 12:00 PM EST Office Visit Nephrology, [facility] 400 [place], [place] [phone] Keisha Gunn MD [address] [place] [id number] 01/22/2025 1:30 PM EDT PulmDiagnostic Pulmonary Function Lab [facility] [address] [address] [address], [address] [address] 01/22/2025 2:00 PM EDT Office Visit Pulmonary Medicine [facility] [place] [address] [phone] Dominguez Aguilar MD [address] [address] 01/29/2025 2:00 PM EDT Office Visit Family [facility], [place] 21 [place] [phone] David Antunez MD [address] [place] [address] 02/05/2025 10:00 AM EDT Office Visit Rheumatology, [facility] [address] [place] [address] Rafael Hernandez PA-C [address] [place] [address] 02/06/2025 1:30 PM EDT Office Visit Cardiology, [place] 400 [place] [address] Cherry Warner PA-C [address] [place] [address] Scheduled Procedures Name Priority Associated Diagnoses Date/Ti [...] this encounter Medical Devices Implanted Type Area Precast Concrete Products Installer Device Identifier Shelf Expiration Date Model / Serial / Lot Mesh Perfix Plug Lg [id number] - [id number] Implanted:Qty : 1 on 02/07/2019 by Jonathan Correia DO at OR [facility] [place] Right: Groin CR BARD : DAVOL 09/04/2023 [id number] / / [id number] Cytal Wndmtx 1lyr [id number](150 Units) - [id number] - [id number] Implanted:Qty : 1 on 08/10/2024 by Lexie Aldridge MD at OR [facility] Left: Leg Upper [employer] [id number] 10/07/2025 [id number] / [id number] / [id number] Cytal Wndmtx 1lyr 7x10cm (70 Units) - [id number] - [id number] Implanted:Qty : 1 on 08/10/2024 by Lexie Aldridge MD at OR [facility] Left: Leg Upper [employer] [id number] 01/05/2026 [id number] / [id number] / [id number] documented as of this encounter Advance Directives Documents on File Type Date Recorded 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
--- OUTSIDE RECORDS SUMMARY | 2024-09-30 19:10 | External Medical Summary | Summary of Care ---
Author Name Unknown Organization [facility] Address [address] [facility] [facility] [place] [address] Phone [phone] Care Team Providers Care Package Worker Name Role Phone Fuentes Ashton MD Primary Care Provider [phone] Reason for Visit * Reason Onset Date Comments Test Results 09/29/202409/29 Encounter Details Date Type Department Care Team (Late st Contact Info) Description 09/29/2024 Telephone [facility] 21 [facility] [place] [address] David Antunez MD 21 [place] [address] Test Results (09/29) Allergies Active [...] from 2018 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 05/31/2020 Nuclear [...] neoplasm) 0 03/09/2018 Overview (03/09/2018): MRI 02/23 long-term (current) use of systemic [...] chronic kidney disease 08/03/2023 08/03/2023 Atherosclerosis of ho-chunk co ronary artery without angina pectoris 02/01/2023 [...] mRNA, LNP-s, No Pre serve, 2-Dose Series ([employer]) 08/15/2021,01/31/2021,01/03/2021 COVID-19, LNP-s, No Preserve , Ruslan-sucrose, Ages 12+ ([employer]) 03/19/2022 COVID-19, MRNA-LNP, PF, 30 M CG/0.3 mL, 12 YRS AND ABOVE, IM ([facility] 09/29/2024,10/25/2023 Covid-19, Mrna, Lnp-s, Pf, B ivalent, 30 Mcg, IM, 12 yrs and above (Pfizer) 2022 Pneumococcal Conjugate Vacc, 13 Valent (Prevnar) 01/21/2016 Pneumococcal Conjugate Vacci ne, 20-valent ([id number]) 07/19/2023 Pneumococcal Polysaccharide PPV23 (Pneumovax) 01/13/2011 RSV [...] Job End Date 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 Dr. Irene was his surgeon. I conveyed [...] 10/02/2024 1:15 PM EST Treatment Radiation Oncology, [address] [place] [address] 10/02/2024 1:30 PM EST Documentation Radiation Oncology, [address] [place] [address] Mansoor Watson MD [address] [facility] [place] [phone] 10/03/2024 10:00 AM EST Office Visit Wound Care, [facility] 400 [place] [address] Vickey Woodruff MD [address] [place] [address] 10/03/2024 1:15 PM EST Treatment Radiation Oncology, [address] [place] [address] 10/04/2024 1:15 PM EST Treatment Radiation Oncology, [address] [place] [address] 10/06/2024 1:15 PM EST Treatment Radiation Oncology, [address] [place] [address] 10/09/2024 1:15 PM EST Treatment Radiation Oncology, [address] [place] [address] 10/10/2024 1:15 PM EST Treatment Radiation Oncology, [address] [address] 10/11/2024 1:15 PM EST Treatment Radiation Oncology, [address] [place] [address] 10/12/2024 1:15 PM EST Treatment Radiation Oncology, [address] [address] 10/13/2024 1:15 PM EST Treatment Radiation Oncology, [address] [place] [address] 10/16/2024 1:15 PM EST Treatment Radiation Oncology, [address] [place] [address] 10/17/2024 1:15 PM EST Treatment Radiation Oncology, [address] [place] [address] 10/18/2024 1:15 PM EST Treatment Radiation Oncology, [address] [place] [address] 10/19/2024 1:15 PM EST Treatment Radiation Oncology, [address] [place] [address] 10/20/2024 1:15 PM EST Treatment Radiation Oncology, [address] [place] [address] 10/23/2024 1:15 PM EST Treatment Radiation Oncology, [address] [place] [address] 10/24/2024 1:15 PM EST Treatment Radiation Oncology, [address] [place] [address] 10/25/2024 1:15 PM EST Treatment Radiation Oncology, [address] [place] [address] 2024 1:15 PM EST Treatment Radiation Oncology, [address] [place] [address] 10/27/2024 1:15 PM EST Treatment Radiation Oncology, [address] [place] [address] 10/30/2024 1:15 PM EST Treatment Radiation Oncology, [address] [place] [address] 10/31/2024 1:15 PM EST Treatment Radiation Oncology, [facility] [address] [place] [address] 11/14/2024 1:15 PM EST Office Visit MOHS Surgery [facility] [place] [address] [place] [address] Supriya Fernandes MD [address] [place] [address] 11/28/2024 10:45 AM EST Office Visit Otolaryngology/Head & Neck/Facial Plastic Surgery [address] [place] [facility] [place] [address] Lexie Aldridge MD [address] [place], [place] [phone] 12/21/2024 1:30 PM EST Office Visit Dermatology, [facility] [place] [address] [place] [phone] Malaika Guzman PA-C [address] [place] [address] 12/22/2024 12:00 PM EST Office Visit Nephrology, [facility] [address] [place], [place] [phone] Keisha Gunn MD [address] [place] [phone] 01/22/2025 1:30 PM EDT PulmDiagnostic Pulmonary Function Lab [facility] [address] [address] [address], [address] [address] 01/22/2025 2:00 PM EDT Office Visit Pulmonary Medicine [facility] [place] [address] [phone] Dominguez Aguilar MD [address] [address] 01/29/2025 2:00 PM EDT Office Visit Family [facility] [place] 21 [facility] [place] [phone] David Antunez MD [address] [place] [address] 02/05/2025 10:00 AM EDT Office Visit Rheumatology, [facility] [address] [place] [address] Rafael Hernandez PA-C [address] [facility] [address] 02/06/2025 1:30 PM EDT Office Visit Cardiology, [place] 400 [place] [address] Cherry Warner PA-C 400 [place] [address] Scheduled Procedures Name Priority Associated Diagnoses Date/Ti [...] this encounter Medical Devices Implanted Type Area Tennis Desk Team Member Device Identifier Shelf Expiration Date Model / Serial / Lot Mesh Perfix Plug Lg [id number] - [id number] Implanted:Qty : 1 on 02/07/2019 by Jonathan Correia DO at OR [facility] Right: Groin CR BARD : DAVOL 09/04/2023 [id number] / / [id number] Cytal Wndmtx 1lyr [id number](150 Units) - [id number] - [id number] Implanted:Qty : 1 on 08/10/2024 by Lexie Aldridge MD at OR [facility] Left: Leg Upper [employer] [id number] 10/07/2025 [id number] / [id number] / [id number] Cytal Wndmtx 1lyr 7x10cm (70 Units) - [id number] - [id number] Implanted:Qty : 1 on 08/10/2024 by Lexie Aldridge MD at OR [facility] Left: Leg Upper [employer] [id number] 01/05/2026 [id number] / [id number] / [id number] documented as of this encounter Advance Directives Documents on File Type Date Recorded 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
[2024-09-30] MEDS: ONDANSETRON INJ 2 MG/ML 2 ML VIAL IV PRN (22:56)
[2024-10-01] MEDS: SODIUM CHLORIDE 0.9% 1,000 ML IV SCH (00:09)
[2024-10-01] MEDS: SODIUM CHLORIDE 0.9% 1,000 ML IV ONE ×3 (00:09→07:03)
[2024-10-01] MEDS: PIPERACILLIN/TAZOBACTAM 4.5 GM/100 ML BAG IV SCH (00:58)
[2024-10-01] MEDS: ACETAMINOPHEN 1,000 MG/100 ML VIAL IV STA ×2 (05:49→07:45)
[2024-10-01 06:21] LABS: BUN Creatinine Ratio 14.5 (10-20); Creatinine Clr Calc Pharmacy 15.9 ml/min; Potassium 4.5 mmol/L (3.5-5.1)
[2024-10-01 07:17] LABS: Adenovirus F 40/41 PCR Not Detected (NotDetected); Astrovirus PCR Not Detected (NotDetected); Campylobacter PCR Not Detected (NotDetected); Cryptosporidium PCR Not Detected (NotDetected); Cyclospora cayetanensis PCR Not Detected (NotDetected); Entamoeba histolytica PCR Not Detected (NotDetected); Enteroaggregative E.coli(EAEC) Not Detected (NotDetected); Enteropathogenic E.coli (EPEC) Not Detected (NotDetected); Enterotoxigenic E.coli (ETEC) Not Detected (NotDetected); Giardia lamblia PCR Not Detected (NotDetected); Norovirus GI/GII PCR Not Detected (NotDetected); Plesiomonas shigelloides PCR Not Detected (NotDetected); Rotavirus A PCR Not Detected (NotDetected); Salmonella PCR Not Detected (NotDetected); Sapovirus PCR Not Detected (NotDetected); Shiga-like Toxin E.coli (STEC) Not Detected (NotDetected); Shigella/Enteroinvasive E.coli Not Detected (NotDetected); Vibrio cholerae PCR Not Detected (NotDetected); Vibrio species PCR Not Detected (NotDetected); Yersinia enterocolitica PCR Not Detected (NotDetected)
--- NOTE | 2024-10-01 07:40 | Critical Care Consultation ---
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 Was sent to the ICU for septic shock Past medical history: A-fib on Eliquis, hypertension, dyslipidemia, COPD, chronic gout, HFpEF, hypothyroidism, ANCA associated vasculitis, CKD, erythema in addition Neuro - [facility] ICU: Negative --Chronic low back pain On oxycodone at home but I will give morphine while in the hospital Cardiac - --Septic shock Source is most likely osteomyelitis Also takes prednisone 7.5 mg on a daily basis for erythema not using Will give him stress dose hydrocortisone Vasopressor support to keep MAP greater than 65 -- History of hypertension On metoprolol 25 at home Respiratory - -- History of COPD Only 5-pack-year smoking history 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, 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 On Anoro at home GI - -- GERD On pantoprazole RENAL/LYTES - -- LIZZ on CKD Baseline creatinine 2.7-3 Monitor BUN/creatinine Avoid nephrotoxic medications Strict ins and outs ENDO - --Hypothyroidism On levothyroxine 50 mcg at home -- ICU hypoglycemia protocol HEME - -- Macrocytic anemia Monitor H&H --Thrombocytopenia Likely from sepsis Continue to trend --History of squamous cell carcinoma of the neck S/p resection and skin grafts approximately 6 weeks ago Supposed to undergo adjuvant radiation --History of erythema nodosum Take 7.5 mg of prednisone on a daily basis ID - -- Sepsis So for the source seems to be osteomyelitis of the back with sinus wound Wound culture from the superficial wound of the back is growing MSSA Was initially on vancomycin and Rocephin, it was changed to daptomycin and Zosyn on 09/30/2024 --Prophylaxis VTE: Eliquis on hold GI: Pantoprazole Lines: Peripheral Diet: N.p.o. Plan: Patient has gotten so far 2 L of IV fluid. Will give 500 mL bolus more. Start the patient on vasopressors to keep MAP greater than 65 Follow-up random cortisol Follow-up 2D echo I have personally spent 64 minutes of critical care time in the direct management of this patient. This is a life/limb threatening event. This includes time spent evaluating patient, direct bedside care, chart review, placing orders, interpretation of diagnostic studies, discussion with consultants, patient, and family members, as well as other required patient management activities. This time is exclusive of all separately billable procedures, and teaching time and separate from and in addition to any other critical care service time. History of Present Illness Attending Physician: Dinesh Cummings MD History of Present Illness 78-year-old male present to the hospital for abnormal MRI as an outpatient showing osteomyelitis Past medical history: A-fib on Eliquis, hypertension, dyslipidemia, COPD, chronic gout, HFpEF, hypothyroidism, ANCA associated vasculitis, CKD Was sent to the ICU because of severe sepsis At the time of examination patient was tachycardic in the 110s. Respirate was in the high teens to low 20s. Temperature was 37.1. He had just gotten Tylenol on the way to ICU. He looked flushed. He stated he is feeling better compared to earlier in the morning after getting the fluid bolus His MAP was 61 with systolic in the mid 90s. Denies any chest pain, no shortness of breath No headache, no blurry vision, no dizziness Denied any nausea vomiting No dysuria or diarrhea Social history: Only 5-pack-year smoking history while he was in [place] Used to work in [employer]. Did not wear mask Denied chewing tobacco No history of lung cancer in the family Allergies Allergy/AdvReac Type Severity Reaction Status Date / Time chlorhexidine Allergy Severe Verified 03/16/24 09:47 aztreonam Allergy hives Verified 03/16/24 09:47 Cephalosporins AdvReac Unknown UPSET Verified 03/16/24 09:47 STOMACH ciprofloxacin AdvReac Unknown DIARRHEA Verified 03/16/24 09:47 Iodinated Contrast Media AdvReac Unknown Verified 03/16/24 09:47 levofloxacin AdvReac Unknown Verified 03/16/24 09:47 Home Medications Medication Instructions Recorded Confirmed Type acetaminophen 325 mg tablet 325 mg PO QID PRN Pain (Scale 10/15/21 09/29/24 History (Tylenol) Score 1-3) albuterol sulfate 1.25 mg/3 mL 1.25 mg inhalation BID PRN sob 10/15/21 09/29/24 History solution for nebulization apixaban 5 mg tablet (Eliquis) 5 mg PO BID 10/15/21 09/29/24 History levothyroxine 50 mcg tablet 50 mcg PO DAILY 10/15/21 09/29/24 History metoprolol succinate 25 mg 25 mg PO DAILY 10/15/21 09/29/24 History tablet,extended release 24 hr omeprazole 20 mg capsule,delayed 20 mg PO DAILY 10/15/21 09/29/24 History release atorvastatin 20 mg tablet 20 mg PO DAILY 03/19/22 09/29/24 History syringe with needle, safety 3 mL #100 ea 04/13/23 09/29/24 Rx 21 gauge x 1" (Monoject Safety Syringes) allopurinol 100 mg tablet 200 mg PO DAILY 03/16/24 09/29/24 History calcitriol 0.25 mcg capsule 0.25 mcg PO DAILY #30 caps 03/16/24 09/29/24 Rx testosterone cypionate 100 mg/mL 75 mg (0.75 mL) subcut Q7D #10 mL 05/31/24 09/29/24 Rx intramuscular oil folic acid 1 mg tablet 1 mg PO DAILY 09/29/24 09/29/24 History furosemide 20 mg tablet 20 mg PO DAILY PRN Edema 09/29/24 09/29/24 History oxycodone 5 mg tablet 5 mg PO Q6H PRN Moderate Pain 09/29/24 09/29/24 History (Scale Score 5-6) sodium bicarbonate 650 mg tablet 650 mg PO AMHS 09/29/24 09/29/24 History umeclidinium 62.5 mcg-vilanterol 1 inh inhalation DAILY 09/29/24 09/29/24 History 25 mcg/actuation powdr for inhalation prednisone 5 mg tablet 7.5 mg 10/01/24 History Patient History Medical History Gynecomastia Hemorrhoids Diverticulosis H/O acute pancreatitis Paroxysmal A-fib Hyperglobulinemia hx of HLD (hyperlipidemia) Hypertension Herpes simplex infection crusted, involving lips and right nares Multiple bruises Generalized weakness Hypothyroid Peripheral edema Peripheral edema Pneumonia positive for rhinovius and aspergillosis Diastolic CHF Diabetes CKD (chronic kidney disease), stage IV Erythema nodosum ANCA positive, on chronic prednisone Surgical History History of cataract surgery History of back surgery H/O lymph node biopsy possible sarcoid History of bronchoscopy H/O left inguinal hernia repair Family History Mother Stroke Myocardial infarction Father Heart disease Social History Smoking Status: Former smoker Smoking End Date: "early "; Hx Alcohol Use: Yes Alcohol type: beer Alcohol Intake Frequency: 2-3 x/Week Hx Substance Use: No (has RX for oxycodone but rarely uses it) Preferred Language: Burundian Communication Ability: Effective Attorney Recruiter Required: No Beliefs That Will Affect Care: None Current Living Situation: Spouse Other Information That Helps Us Care for You: No Feels Safe at Home: Yes Safety Concerns: Feels Safe At This Time Assistive Devices: Cane Review of Systems 2 Review of Systems: All systems reviewed & are unremarkable except as noted in HPI & below Physical Exam 2 Physical Exam: Constitutional: No acute distress HEENT: EOMI, PERRLA Respiratory system: Decreased air entry bilaterally, no wheeze, no rhonchi, positive crackles bilaterally, right greater than left CVS: S1-S2 positive, no murmurs or gallops, tachycardia Abdomen: Soft, nontender, nondistended, positive bowel sounds x4 Extremities: +2 pulses bilaterally radialis/ dorsalis pedis, no cyanosis, no edema Neuro: Awake alert oriented x3 Psych: Normal mood and affect G/U: Positive: Skin: Flushed skin Skin: no rashes, warm and dry Lymphatic: no cervical or axillary lymphadenopathy Results & Data Results & Data Vital Signs (Past 12 Hours) Vital Signs Temp Pulse Pulse Resp BP BP Pulse Ox 10/01/24 07:33 120 H 10/01/24 07:20 98/63 L 10/01/24 07:14 31 H 10/01/24 07:12 38.0 C H 122 H 20 93/60 L 93 10/01/24 05:36 39.2 C H 10/01/24 03:28 37.1 C 116 H 16 104/56 L 93 09/30/24 23:53 37.1 C 134 H 20 107/64 93 09/30/24 23:52 37.2 C 151 H 20 158/94 H 80 L 09/30/24 23:19 160 H O2 Del Method O2 Flow Rate 10/01/24 07:33 10/01/24 07:20 10/01/24 07:14 10/01/24 07:12 Room Air 10/01/24 05:36 10/01/24 03:28 Nasal Cannula 3 09/30/24 23:53 Nasal Cannula 3 09/30/24 23:52 Room Air 09/30/24 23:19 Laboratory Results 09/30/24 05:43 10/01/24 05:49 Coding Level of Care Code 43221 CRITICAL CARE 1ST 30-74M Diagnoses LIZZ (acute kidney injury) N17.9 Osteomyelitis M86.9 Osteomyelitis location: unspecified site Osteomyelitis type: unspecified type Chronic anemia D64.9 Hx of lumbosacral spine surgery Z98.890 Open wound of lumbar region S31.000A Hypertension I10 Hypothyroidism E03.9 Erythema nodosum L52 GERD (gastroesophageal reflux disease) K21.9 Diastolic CHF I50.30 CKD (chronic kidney disease), stage IV N18.4 Shock circulatory R57.9 Squamous cell carcinoma of neck C44.42 (2) Osteomyelitis Osteomyelitis location: unspecified site Osteomyelitis type: unspecified type Qualified Code(s): M86.9 - Osteomyelitis, unspecified
[2024-10-01] MEDS: DEXTROSE 50% 50 ML SYRINGE IV ONE ×3 (07:44→11:10)
--- NOTE | 2024-10-01 08:13 | XRay Report ---
XR chest 1V portable CLINICAL HISTORY: rule out pneumonia COMPARISON STUDY: No previous studies for comparison. FINDINGS: Lung volumes are mildly diminished. There is no pneumothorax or pleural effusion. Linear le ft basilar densities favor atelectasis or scarring. There is mild interstitial thickening. There may be a few patchy right lung airspace opacities. No lobar consolidation is present. Cardiomediastinal s ilhouette is unremarkable. IMPRESSION: 1. Interstitial thickening. This favors mild pulmonary edema. 2. A few possible patchy right lung airspace opacities. This may reflect asymmetric pulmonary edema o r an infectious process. Radiographic follow-up to ensure resolution is recommended. ACT 112: Negative or not required by law. Electronically signed by: Rodney Foley M.D. 10/01/2024 8:10 AM
[2024-10-01 08:27] LABS: Albumin Level 2.8 gm/dl (3.4-5.0); Bilirubin Direct 0.2 mg/dl (0-0.2); Bilirubin,Total 0.7 mg/dl (0.2-1.0); Total Protein 5.2 gm/dl (6.0-8.3)
[2024-10-01] MEDS ORDERED: STAT IV Infusion **Titration per Protocol STA (09:07)
--- NOTE | 2024-10-01 09:45 | Hospitalist Progress Note ---
Date of Service October 01, 2024 Assessment & Plan (1) Open wound of lumbar region: (2) Hx of lumbosacral spine surgery: (3) Paroxysmal A-fib: (4) CKD (chronic kidney disease), stage IV: (5) Hypertension: (6) Chronic anemia: Plan This is a 78-year-old male who has significant past medical history of PAF anticoagulated on Eliquis, chronic HFpEF, HTN, HLD, COPD, chronic gout, prediabetes, hypothyroidism, IPMN, ANCA associated vasculitis, CKD stage IV, chronic interstitial vascular insufficiency, hx of SCC of L neck cutaneous tissue s/p wide excision, left neck dissection and reconstrution, GERD, vitamin D deficiency, age-related osteoporosis who presents to ED secondary to abnormal MRI that was done as outpatient. Lumbar Spine MRI: IMPRESSION1. L2-L5 instrumented fusion and L2-L4 laminectomies.2. Severe L5-S1 distal junctional thecal sac stenosis.3. Dorsal subcutaneous fat stranding and swelling with a shallow sinus tract. Artifact limiting assessment of sinus tract depth with accuracy. L1 spinous process signal abnormality with new erosion involving the tip of L1 spinous process. The differential includes reactive osteitis and/or osteomyelitis. Sinus wound in Lumbar region Hx of Lumbar spine surgery Possible Severe Sepsis Adrenal Insufficiency Patient is referred for admission due to MRI lumbar spine findings as outpatient. Lumbar spine MRI as above No leukocytosis present ESR slightly elevated to 21, CRP slightly elevated to 0.63. Evaluated by orthospine; prominence of L1 spinous processes likely etiology of the findings; partial resection and debridement to be considered after reviewing the images. Superficial cultureMSSA Blood culture on admission - NGTD on 10/01: Patient had a spikes of fever, hypotension and tachycardia. He was examined at bedside in the morning. He was awake, oriented x 3; appears flushed. He reports numbness/tingling sensations in bilateral hands. Blood pressure was on the softer side; order given to continue bolus of LR. Found to be hypoglycemic as well; D50 ordered. CXR ordered and reviewed; mild pulm edema and few patchy right lung airspace opacities. Discussed with production graphic designer to transfer patient to ICU for severe sepsis and possible need for vasopressors. Updated daughter over the phone as well of the clinical events. Outpatient chart reviewed; patient was on prednisone 7.5 mg once a day for several years for erythema nodosum; underwent cortisol on the lower level; started on hydrocortisone as per ICU after discussion. Continue on Zosyn and daptomycin; follow-up on repeat blood culture on September 30, 2024. Started on hydrocortisone 100 mg once; 50 every 6h. Support hemodynamics with vasopressors as needed LIZZ on CKD baseline cr 2.7-3, Creatinine up trended to 3.58 on 10/01; likely due to hypotensive episodes Given IV fluids Vitale catheter in place Avoid nephrotoxic agent Follow-up BMP daily PAF: chronic, stable, continue metoprolol and eliquis for now, if going to require surgical procedure will need to determine timing of hold eliquis Acute on Chronic HFpEF HTN/HLD Chest x-ray on 10/01 shows mild pulmonary edema Monitor respiratory status; supplemental oxygen as needed Will consider Lasix after blood pressure is more stable COPD: chronic, stable, continue inhaler Chronic gout: continue allopurinol SCC of left neck cutaneous tissue s/p dissection requiring reconstruction and flap procedure in August in [place] currently to undergo adjuvant radiation at [facility] DVT ppx: Eliquis, currently on hold for possible surgery in next couple of days. FULL CODE PCP: Poli Dispo: ICU, for possible need of vasopressors Time critical spent evaluating patient, direct bedside care, chart review, placing orders, interpretation of diagnostic studies, discussion with consultants, patient, and family members, as well as other required patient management activities is 40 minutes Please note the above document was generated using voice recognition software. It may contain grammatical, syntax or spelling errors. Any formal questions or concerns about the content, text or information contained within the body of this dictation should be directly addressed to the provider for clarification Admission and Anticipated Discharge Date Admission Date: September 29, 2024 Subjective Overnight, patient had a spikes of fever, hypotension and tachycardia. He was examined at bedside in the morning. He was awake, oriented x 3; appears flushed. He reports numbness/tingling sensations in bilateral hands. Blood pressure was on the softer side; order given to continue bolus of LR. Found to be hypoglycemic as well; D50 ordered. Discussed with production graphic designer to transfer patient to ICU for severe sepsis and possible need for vasopressors. Updated daughter over the phone as well of the clinical events. Outpatient chart reviewed; patient was on prednisone 7.5 mg once a day for se veral years for erythema nodosum; underwent cortisol on the lower level; started on hydrocortisone as per ICU after discussion. Review of Systems Review of Systems: All systems reviewed & are unremarkable except as noted in Subjective Physical Exam Physical Exam: Constitutional: Alert oriented x 3; Appears uncomfortable. Flushed with the redness all over the body. Respiratory: Bilateral vesicular breath sound. Cardiovascular: RRR, no murmur, no edema Vessels: no JVD or carotid bruit Chest: Bilateral vesicular breath sound Abdomen: soft, non-tender Musculoskeletal: Small lump involving the upper lumbar region with Sinus track; minimal drainage noted.Dressing over left thigh present from where his skin graft was taken; minimal soakage. Neurologic: PERRL, EOMI, accommodation nl, no face palsy, no dysarthria CN's II- XI intact bilaterally and moves all extremities Psychiatric: A+Ox3, euthymic affect Results & Data Results & Data Vital Signs (Past 12 Hours) Vital Signs Temp Pulse Pulse Resp BP BP Pulse Ox 10/01/24 08:51 10/01/24 07:50 114 H 24 98/63 L 10/01/24 07:33 120 H 10/01/24 07:20 98/63 L 10/01/24 07:14 31 H 10/01/24 07:12 38.0 C H 122 H 20 93/60 L 93 10/01/24 05:36 39.2 C H 10/01/24 03:28 37.1 C 116 H 16 104/56 L 93 09/30/24 23:53 37.1 C 134 H 20 107/64 93 09/30/24 23:52 37.2 C 151 H 20 158/94 H 80 L 09/30/24 23:19 160 H O2 Del Method O2 Flow Rate 10/01/24 08:51 Nasal Cannula 3 10/01/24 07:50 10/01/24 07:33 10/01/24 07:20 10/01/24 07:14 10/01/24 07:12 Nasal Cannula 3 10/01/24 05:36 10/01/24 03:28 Nasal Cannula 3 09/30/24 23:53 Nasal Cannula 3 09/30/24 23:52 Room Air 09/30/24 23:19
[2024-10-01] MEDS: NOREPINEPHRINE/D5W 4 MG/250 ML IV ONE (10:02)
[2024-10-01] MEDS: HYDROCORTISONE SOD 100 MG in SYRINGE 0 ML IV ONE (10:03)
[2024-10-01] MEDS: NOREPINEPHRINE/D5W 4 MG/250 ML PLCT IV SCH (10:03)
[2024-10-01 10:23] LABS: Appearance Urine Cloudy (Clear); Bacteria Urine Automated None Seen (None Seen); Bilirubin Urine Negative (Negative); Blood Urine 2+ (Negative); Color Urine Yellow; Epithelial Cell Urine Auto 0-2 /hpf (0-2); Glucose Urine UA Trace (Negative); Granular Casts Urine Present /lpf (None Prsent); Ketones Urine Negative (Negative); Leukocyte Esterase Urine 1+ (Negative); Nitrite Urine Negative (Negative); Protein Urine 2+ (Negative); Specific Gravity Urine 1.018 (1.000-1.030); Urobilinogen Urine Negative (Negative); WBC Urine Automated 21-50 /hpf (0-5)
[2024-10-01] MEDS: MoRPHine SULFATE 2 MG/ML CARP IV PRN (11:12)
[2024-10-01] MEDS: HYDROCORTISONE SOD 50 MG in SYRINGE 0 ML IV SCH (14:54)
[2024-10-02 05:24] LABS: Albumin Globulin Ratio 1.1 (0.9-2); Albumin Level 2.9 gm/dl (3.4-5.0); Bilirubin,Total 0.5 mg/dl (0.2-1.0); Calcium 7.7 mg/dl (8.6-10.3); Creatinine Clr Calc Pharmacy 12.5 ml/min; Globulin 2.7 gm/dl (2.5-4.0); Potassium 6.1 mmol/L (3.5-5.1); Total Protein 5.6 gm/dl (6.0-8.3)
[2024-10-02 05:31] LABS: Basophils # (auto) 0.03 K/uL (0.00-0.20); Basophils % (auto) 0.2 %; Dohle Bodies 1+; Eosinophils # (auto) 0.04 K/uL (0.00-0.50); Eosinophils % (auto) 0.2 %; Hematocrit (blood only) 32.3 % (42.0-52.0); Hemoglobin 10.2 g/dl (14.0-18.0); Immature Granulocytes # (auto) 1.29 K/uL (0.01-0.20); Immature Granulocytes % (auto) 7.1 %; Lymphocytes # (auto) 0.45 K/uL (1.20-3.40); Lymphocytes % (auto) 2.5 %; Mean Corpuscular Hgb Conc 31.6 g/dL (32.0-36.0); Mean Corpuscular Volume 107.7 fL (80.0-100.0); Mean Platelet Volume 12.2 fL (9.4-12.4); Monocytes # (auto) 0.37 K/uL (0.11-0.59); Neutrophils # (auto) 16.05 K/uL (1.40-6.50); Platelet Count 73 K/uL (130-400); Platelet Estimate Decreased (Normal); Polychromasia 2+; RDW Coefficient of Variation 15.8 % (11.5-14.5); RDW Standard Deviation 62.8 fL (36.4-46.3); Tear Drop Cells 1+; White Blood Count 18.23 K/ul (4.8-10.8)
[2024-10-02] MEDS: DEXTROSE 50% 50 ML SYRINGE IV STA (05:55)
[2024-10-02] MEDS: INSULIN HUMAN REGULAR PER UNIT 10 UNITS in SYRINGE 9.9 ML IV STA (05:55)
[2024-10-02] MEDS: CALCIUM GLUCONATE 1,000 MG/60 ML BAG IV SCH (05:56)
[2024-10-02] MEDS: FUROSEMIDE INJ 20 MG/2 ML VIAL IV ONE (06:22)
--- NOTE | 2024-10-02 08:49 | Critical Care Progress Note ---
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 Was sent to the ICU for septic shock. Likely had relative adrenal insufficiency as hypotension resolved with hydrocor tisone. Hemodynamically stable with minimum oxygen requirement currently. Kidney function continues to deteriorate. Cultures from the spine growing Pseudomonas and Staph aureus Recommendations: Neuro -no current issues. Continue pain management strategy for his chronic low back pain Cardiac -initially transferred to the ICU for hypotension and elevated lactate. Hypotension is resolved. Will recheck lactate today. Suspect osteomyelitis as the source. Hold home antihypertensives for now. Respiratory -history of COPD without PFTs available. Chest x-ray shows mild increased interstitial markings potentially consistent with fluid overload. Continue to wean oxygen as tolerated. Incentive spirometry. Continue Anoro GI -no current issues RENAL/LYTES -acute renal failure on baseline chronic kidney disease. Hyperkalemia this morning treated with bicarb insulin and glucose. Nephrology consultation pending. Suspect ATN ENDO - glycemic control per protocol. Continue Synthroid HEME -anemia: Not far from baseline. No indication for transfusion. Thrombocytopenia slightly worse today. Suspect related to sepsis but cannot rule out HIT. Check PF4 antibody ID -Staph aureus and Pseudomonas isolated from swab of the back wound. Ortho spine awaiting review of the films to decide whether or not hardware needs to be explanted. Given complexity of the issues, we will proceed with infectious disease consult. Day #3 Zosyn and daptomycin. Received 1 dose of Rocephin and vancomycin in the emergency room. --Prophylaxis VTE: Eliquis on hold, hold heparin given low platlets. GI: Pantoprazole Lines: Peripheral Diet: pending ortho evaluation I have personally spent 45 minutes of critical care time in the direct management of this patient. This is a life/limb threatening event. This includes time spent evaluating patient, direct bedside care, chart review, placing orders, interpretation of diagnostic studies, discussion with consultants, patient, and family members, as well as other required patient management activities. This time is exclusive of all separately billable procedures, and teaching time and separate from and in addition to any other critical care service time. Admission and Anticipated Discharge Date Admission Date: September 29, 2024 Subjective Patient seen and examined. EMR reviewed. Discussed with overnight critical care WIL as well as off going phone representative as well as with bedside critical care nurse and on multidisciplinary rounds. The patient is awake alert conversant this morning. He is talking on the phone to family members. He has been hemodynamically stable off vasopressor agents. Review of Systems Review of Systems: All systems reviewed & are unremarkable except as noted in Subjective Physical Exam Physical Exam: Constitutional: Alert oriented x 3; thin and cachectic Respiratory: Bilateral vesicular breath sound. Cardiovascular: RRR, no murmur, no edema Vessels: no JVD or carotid bruit Chest: Bilateral vesicular breath sound Abdomen: soft, non-tender Musculoskeletal: Small lump involving the upper lumbar region with Sinus track; minimal drainage noted.Dressing over left thigh present from where his skin graft was taken; minimal soakage. Neurologic: PERRL, EOMI, accommodation nl, no face palsy, no dysarthria CN's II- XI intact bilaterally and moves all extremities Psychiatric: A+Ox3, euthymic affect Results & Data Results & Data Vital Signs (Past 12 Hours) Vital Signs Temp Pulse Resp BP Pulse Ox O2 Del Method O2 Del Method 10/02/24 08:00 87 10/02/24 08:00 Room Air 10/02/24 08:00 Nasal Cannula 10/02/24 07:00 36.7 C 18 99 Nasal Cannula 10/02/24 06:47 36.7 C 87 16 128/68 97 10/02/24 06:30 155/76 H 10/02/24 06:29 36.7 C 100 H 19 97 10/02/24 06:15 36.8 C 95 H 42 H 134/75 94 10/02/24 06:02 36.8 C 90 25 H 124/69 95 10/02/24 05:59 36.8 C 84 21 96 10/02/24 05:45 126/63 10/02/24 05:41 36.8 C 77 26 H 98 10/02/24 05:39 36.8 C 77 19 98 10/02/24 05:15 124/60 10/02/24 05:06 36.9 C 76 22 99 10/02/24 04:45 131/70 10/02/24 04:33 37.1 C 88 41 H 98 10/02/24 04:30 37.1 C 93 H 48 H 122/76 99 10/02/24 04:15 37.3 C 89 27 H 120/68 99 10/02/24 04:00 37.3 C 72 18 109/57 L 98 10/02/24 03:45 103/58 L 10/02/24 03:39 37.3 C 75 19 97 10/02/24 03:30 37.3 C 72 23 112/57 L 98 10/02/24 03:15 110/65 10/02/24 03:06 37.3 C 79 19 93 10/02/24 02:45 118/63 10/02/24 02:42 37.3 C 98 H 21 118/63 97 10/02/24 02:33 37.3 C 96 H 41 H 121/69 99 10/02/24 02:27 37.4 C 92 H 33 H 98 10/02/24 02:15 120/69 10/02/24 01:57 37.4 C 85 21 100 10/02/24 01:45 131/62 10/02/24 01:39 37.4 C 99 H 31 H 99 10/02/24 01:33 37.4 C 102 H 43 H 128/57 L 100 10/02/24 01:24 37.5 C 99 H 37 H 99 10/02/24 01:15 131/67 10/02/24 01:00 37.6 C H 89 56 H 110/71 98 10/02/24 00:45 37.6 C H 96 H 44 H 138/68 98 10/02/24 00:33 37.6 C H 92 H 34 H 142/68 H 97 10/02/24 00:30 142/68 H 10/02/24 00:18 37.6 C H 99 H 44 H 99 10/02/24 00:15 141/62 H 10/02/24 00:03 37.6 C H 82 20 124/52 L 100 10/01/24 23:00 Nasal Cannula 10/01/24 23:00 87 10/01/24 21:48 37.6 C H 92 H 23 122/65 100 10/01/24 21:27 37.7 C H 96 H 36 H 99 10/01/24 21:15 37.7 C H 97 H 50 H 115/64 96 10/01/24 21:06 37.6 C H 102 H 35 H 93 O2 Flow Rate O2 Flow Rate 10/02/24 08:00 10/02/24 08:00 10/02/24 08:00 3 10/02/24 07:00 3 10/02/24 06:47 10/02/24 06:30 10/02/24 06:29 10/02/24 06:15 10/02/24 06:02 10/02/24 05:59 10/02/24 05:45 10/02/24 05:41 10/02/24 05:39 10/02/24 05:15 10/02/24 05:06 10/02/24 04:45 10/02/24 04:33 10/02/24 04:30 10/02/24 04:15 10/02/24 04:00 10/02/24 03:45 10/02/24 03:39 10/02/24 03:30 10/02/24 03:15 10/02/24 03:06 10/02/24 02:45 10/02/24 02:42 10/02/24 02:33 10/02/24 02:27 10/02/24 02:15 10/02/24 01:57 10/02/24 01:45 10/02/24 01:39 10/02/24 01:33 10/02/24 01:24 10/02/24 01:15 10/02/24 01:00 10/02/24 00:45 10/02/24 00:33 10/02/24 00:30 10/02/24 00:18 10/02/24 00:15 10/02/24 00:03 10/01/24 23:00 3 10/01/24 23:00 10/01/24 21:48 10/01/24 21:27 10/01/24 21:15 10/01/24 21:06 Critical Care Results & Data Vital Signs (Past 12 Hours) Vital Signs Temp Pulse Resp BP Pulse Ox O2 Del Method O2 Del Method 10/02/24 08:00 87 10/02/24 08:00 Room Air 10/02/24 08:00 Nasal Cannula 10/02/24 07:00 36.7 C 18 99 Nasal Cannula 10/02/24 06:47 36.7 C 87 16 128/68 97 10/02/24 06:30 155/76 H 10/02/24 06:29 36.7 C 100 H 19 97 10/02/24 06:15 36.8 C 95 H 42 H 134/75 94 10/02/24 06:02 36.8 C 90 25 H 124/69 95 10/02/24 05:59 36.8 C 84 21 96 10/02/24 05:45 126/63 10/02/24 05:41 36.8 C 77 26 H 98 10/02/24 05:39 36.8 C 77 19 98 10/02/24 05:15 124/60 10/02/24 05:06 36.9 C 76 22 99 10/02/24 04:45 131/70 10/02/24 04:33 37.1 C 88 41 H 98 10/02/24 04:30 37.1 C 93 H 48 H 122/76 99 10/02/24 04:15 37.3 C 89 27 H 120/68 99 10/02/24 04:00 37.3 C 72 18 109/57 L 98 10/02/24 03:45 103/58 L 10/02/24 03:39 37.3 C 75 19 97 10/02/24 03:30 37.3 C 72 23 112/57 L 98 10/02/24 03:15 110/65 10/02/24 03:06 37.3 C 79 19 93 10/02/24 02:45 118/63 10/02/24 02:42 37.3 C 98 H 21 118/63 97 10/02/24 02:33 37.3 C 96 H 41 H 121/69 99 10/02/24 02:27 37.4 C 92 H 33 H 98 10/02/24 02:15 120/69 10/02/24 01:57 37.4 C 85 21 100 10/02/24 01:45 131/62 10/02/24 01:39 37.4 C 99 H 31 H 99 10/02/24 01:33 37.4 C 102 H 43 H 128/57 L 100 10/02/24 01:24 37.5 C 99 H 37 H 99 10/02/24 01:15 131/67 10/02/24 01:00 37.6 C H 89 56 H 110/71 98 10/02/24 00:45 37.6 C H 96 H 44 H 138/68 98 10/02/24 00:33 37.6 C H 92 H 34 H 142/68 H 97 10/02/24 00:30 142/68 H 10/02/24 00:18 37.6 C H 99 H 44 H 99 10/02/24 00:15 141/62 H 10/02/24 00:03 37.6 C H 82 20 124/52 L 100 10/01/24 23:00 Nasal Cannula 10/01/24 23:00 87 10/01/24 21:48 37.6 C H 92 H 23 122/65 100 10/01/24 21:27 37.7 C H 96 H 36 H 99 10/01/24 21:15 37.7 C H 97 H 50 H 115/64 96 10/01/24 21:06 37.6 C H 102 H 35 H 93 O2 Flow Rate O2 Flow Rate 10/02/24 08:00 10/02/24 08:00 10/02/24 08:00 3 10/02/24 07:00 3 10/02/24 06:47 10/02/24 06:30 10/02/24 06:29 10/02/24 06:15 10/02/24 06:02 10/02/24 05:59 10/02/24 05:45 10/02/24 05:41 10/02/24 05:39 10/02/24 05:15 10/02/24 05:06 10/02/24 04:45 10/02/24 04:33 10/02/24 04:30 10/02/24 04:15 10/02/24 04:00 10/02/24 03:45 10/02/24 03:39 10/02/24 03:30 10/02/24 03:15 10/02/24 03:06 10/02/24 02:45 10/02/24 02:42 10/02/24 02:33 10/02/24 02:27 10/02/24 02:15 10/02/24 01:57 10/02/24 01:45 10/02/24 01:39 10/02/24 01:33 10/02/24 01:24 10/02/24 01:15 10/02/24 01:00 10/02/24 00:45 10/02/24 00:33 10/02/24 00:30 10/02/24 00:18 10/02/24 00:15 10/02/24 00:03 10/01/24 23:00 3 10/01/24 23:00 10/01/24 21:48 10/01/24 21:27 10/01/24 21:15 10/01/24 21:06 Lab & Micro Results (Past 24 Hours) RBC 3.00 M/uL (4.70-6.10) L 10/02/24 WBC 18.23 K/ul (4.8-10.8) H 10/02/24 Hgb 10.2 g/dl (14.0-18.0) L 10/02/24 Hct 32.3 % (42.0-52.0) L 10/02/24 MCV 107.7 fL (80.0-100.0) H 10/02/24 MCH 34.0 pg (25.0-34.0) 10/02/24 MCHC 31.6 g/dL (32.0-36.0) L 10/02/24 RDW Standard Deviation 62.8 fL (36.4-46.3) H 10/02/24 RDW Coefficient of Variation 15.8 % (11.5-14.5) H 10/02/24 Plt Count 73 K/uL (130-400) L 10/02/24 MPV 12.2 fL (9.4-12.4) 10/02/24 Neutrophils (%) (Auto) 88.0 % 10/02/24 Lymphocytes (%) (Auto) 2.5 % 10/02/24 Monocytes # (Auto) 0.37 K/uL (0.11-0.59) 10/02/24 Eosinophils # (Auto) 0.04 K/uL (0.00-0.50) 10/02/24 Immature Granulocyte % (Auto) 7.1 % 10/02/24 Neutrophils # (Auto) 16.05 K/uL (1.40-6.50) H 10/02/24 Lymphocytes # (Auto) 0.45 K/uL (1.20-3.40) L 10/02/24 Monocytes # (Auto) 0.37 K/uL (0.11-0.59) 10/02/24 Eosinophils # (Auto) 0.04 K/uL (0.00-0.50) 10/02/24 Basophils # (Auto) 0.03 K/uL (0.00-0.20) 10/02/24 Immature Granulocyte # (Auto) 1.29 K/uL (0.01-0.20) H 10/02 Polychromasia 2+ 10/02/24 Tear Drop Cells 1+ 10/02/24 Dohle Bodies 1+ 10/02/24 Na 135 mmol/L (136-145) L 10/02/24 K 6.1 mmol/L (3.5-5.1) H* 10/02/24 Cl 104 mmol/L (98-107) 10/02/24 CO2 22 mmol/L (21-32) 10/02/24 Anion Gap 9 (3-11) 10/02/24 BUN 59 mg/dl (6-23) H 10/02/24 Creatinine 4.54 mg/dl (0.6-1.4) H* 10/02/24 BUN/Creatinine Ratio 13.0 (10-20) 10/02/24 Glu 94 mg/dl (70-99(Fasting)) 10/02/24 Ca 7.7 mg/dl (8.6-10.3) L 10/02/24 Total Bilirubin 0.5 mg/dl (0.2-1.0) 10/02/24 AST 77 U/L (13-39) H 10/02/24 ALT 31 U/L (7-52) 10/02/24 Alkaline Phosphatase 35 U/L (34-104) 10/02/24 TP 5.6 gm/dl (6.0-8.3) L 10/02/24 Albumin 2.9 gm/dl (3.4-5.0) L 10/02/24 Globulin 2.7 gm/dl (2.5-4.0) 10/02/24 Albumin/Globulin Ratio 1.1 (0.9-2) 10/02/24 Calcium Level 7.7 mg/dl (8.6-10.3) L 10/02/24 04:17 Microbiology 09/29/24 19:37 Gram Stain - Final Back Wound Culture - Final Staphylococcus aureus Pseudomonas aeruginosa 09/29/24 19:00 Aerobic Blood Culture - Preliminary Blood No growth in Aerobic bottle after 48 hours. Anaerobic Blood Culture - Preliminary No growth in Anaerobic bottle after 48 hours. 09/29/24 19:00 Aerobic Blood Culture - Preliminary Blood No growth in Aerobic bottle after 48 hours. Anaerobic Blood Culture - Preliminary No growth in Anaerobic bottle after 48 hours. 09/30/24 18:47 Aerobic Blood Culture - Preliminary Blood No growth in Aerobic bottle after 24 hours. Anaerobic Blood Culture - Preliminary No growth in Anaerobic bottle after 24 hours. 09/30/24 18:44 Aerobic Blood Culture - Preliminary Blood No growth in Aerobic bottle after 24 hours. Anaerobic Blood Culture - Preliminary No growth in Anaerobic bottle after 24 hours. I & O Totals 24 Hours 10/01/24 10/02/24 10/03/24 06:59 06:59 06:59 Intake Total 1590 / 1590 2556.680 / 2556.680 0 / 0 Output Total 1293 / 1293 1305 / 1305 Balance 297 / 297 1251.680 / 1251.680 0 / 0 Cumulative 09/29/24 18:19 thru 10/02/24 07:18 Intake Total 4976.680 Output Total 3098 Balance 1878.680 RT Ventilator Mngmt (Last Documented) Ventilator Ordered Settings Respiratory Rate 18 10/02/24 07:00 Ventilator - PT Measurements Respiratory Rate 18 Coding Level of Care Code 87245 CRITICAL CARE 1ST 30-74M Diagnoses LIZZ (acute kidney injury) N17.9 Osteomyelitis M86.9 Osteomyelitis location: unspecified site Osteomyelitis type: unspecified type Chronic anemia D64.9 Hx of lumbosacral spine surgery Z98.890 Open wound of lumbar region S31.000A Hypertension I10 Hypothyroidism E03.9 Erythema nodosum L52 GERD (gastroesophageal reflux disease) K21.9 Diastolic CHF I50.30 CKD (chronic kidney disease), stage IV N18.4 Shock circulatory R57.9 Squamous cell carcinoma of neck C44.42 (2) Osteomyelitis Osteomyelitis location: unspecified site Osteomyelitis type: unspecified type Qualified Code(s): M86.9 - Osteomyelitis, unspecified
--- NOTE | 2024-10-02 09:35 | Hospitalist Progress Note ---
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 Lumbar Spine MRI: IMPRESSION1. L2-L5 instrumented fusion and L2-L4 laminectomies.2. Severe L5-S1 distal junctional thecal sac stenosis.3. Dorsal subcutaneous fat stranding and swelling with a shallow sinus tract. Artifact limiting assessment of sinus tract depth with accuracy. L1 spinous process signal abnormality with new erosion involving the tip of L1 spinous process. The differential includes reactive osteitis and/or osteomyelitis. Sinus wound in Lumbar region Hx of Lumbar spine surgery Possible Severe Sepsis Adrenal Insufficiency Patient is referred for admission due to MRI lumbar spine findings as outpatient. Lumbar spine MRI as above No leukocytosis present ESR slightly elevated to 21, CRP slightly elevated to 0.63. Evaluated by orthospine; prominence of L1 spinous processes likely etiology of the findings; partial resection and debridement to be considered after reviewing the images. Superficial wound culture cultureMSSA and pseudomonas aeruginosa Blood culture on admission - NGTD on 10/01: Patient had a spikes of fever, hypotension and tachycardia.Discussed with business operations analyst to transfer patient to ICU for severe sepsis and possible need for vasopressors. Patient transferred to ICU for vasopressors. Off vasopressors since evening of 10/01 Currently on Zosyn for positive MSSA and Pseudomonas aeruginosa from wound culture. Daptomycin on hold due to elevated CK On hydrocortisone every 6 hours; plan to wean down as tolerated back to home dose of Prednisone 7.5mg once a day Infectious disease consulted. Possible plan for debridement after patient is hemodynamically stable and has resolution of medical issues. LIZZ on CKD Hyperkalemia baseline cr 2.7-3, Creatinine up trended to 4.54 on 10/01; likely due to hypotensive episodes Given IV fluids Urine output reassuring Nephrology consulted; appreciate recommendation PAF: chronic, stable, continue metoprolol and eliquis for now, if going to require surgical procedure will need to determine timing of hold eliquis Acute on Chronic HFpEF HTN/HLD Chest x-ray on 10/01 shows mild pulmonary edema Monitor respiratory status; supplemental oxygen as needed Given iv lasix 20mg on 10/02 am COPD: chronic, stable, continue inhaler Chronic gout: continue allopurinol SCC of left neck cutaneous tissue s/p dissection requiring reconstruction and flap procedure in August in [place] currently to undergo adjuvant radiation at [facility] DVT ppx: Eliquis, currently on hold for possible surgery in next couple of days. FULL CODE PCP: Poli Dispo: ICU, Time spent evaluating patient, direct bedside care, chart review, placing orders, interpretation of diagnostic studies, discussion with consultants, patient, and family members, as well as other required patient management activities is 50 minutes Please note the above document was generated using voice recognition software. It may contain grammatical, syntax or spelling errors. Any formal questions or concerns about the content, text or information contained within the body of this dictation should be directly addressed to the provider for clarification Admission and Anticipated Discharge Date Admission Date: September 29, 2024 Subjective Overnight, patient was weaned off vasopressors. He is hemodynamically stable Patient was given calcium, dextrose, insulin, Lasix for hyperkalemia He is awake, alert oriented x 3. He denies fever, chills, chest pain or shortness of breath. Review of Systems Review of Systems: All systems reviewed & are unremarkable except as noted in Subjective Physical Exam Physical Exam: Constitutional: Alert oriented x 3; Comfortable not in distress. Respiratory: Bilateral vesicular breath sound. Cardiovascular: RRR, no murmur, no edema Vessels: no JVD or carotid bruit Chest: Bilateral vesicular breath sound Abdomen: soft, non-tender Musculoskeletal: Small lump involving the upper lumbar region with Sinus track; minimal drainage noted.Dressing over left thigh present from where his skin graft was taken; minimal soakage. Neurologic: PERRL, EOMI, accommodation nl, no face palsy, no dysarthria CN's II- XI intact bilaterally and moves all extremities Psychiatric: A+Ox3, euthymic affect Results & Data Results & Data Vital Signs (Past 12 Hours) Vital Signs Temp Pulse Resp BP Pulse Ox O2 Del Method O2 Del Method 10/02/24 08:00 87 10/02/24 08:00 Room Air 10/02/24 08:00 Nasal Cannula 10/02/24 07:00 36.7 C 18 99 Nasal Cannula 10/02/24 06:47 36.7 C 87 16 128/68 97 10/02/24 06:30 155/76 H 10/02/24 06:29 36.7 C 100 H 19 97 10/02/24 06:15 36.8 C 95 H 42 H 134/75 94 10/02/24 06:02 36.8 C 90 25 H 124/69 95 10/02/24 05:59 36.8 C 84 21 96 10/02/24 05:45 126/63 10/02/24 05:41 36.8 C 77 26 H 98 10/02/24 05:39 36.8 C 77 19 98 10/02/24 05:15 124/60 10/02/24 05:06 36.9 C 76 22 99 10/02/24 04:45 131/70 10/02/24 04:33 37.1 C 88 41 H 98 10/02/24 04:30 37.1 C 93 H 48 H 122/76 99 10/02/24 04:15 37.3 C 89 27 H 120/68 99 10/02/24 04:00 37.3 C 72 18 109/57 L 98 10/02/24 03:45 103/58 L 10/02/24 03:39 37.3 C 75 19 97 10/02/24 03:30 37.3 C 72 23 112/57 L 98 10/02/24 03:15 110/65 10/02/24 03:06 37.3 C 79 19 93 10/02/24 02:45 118/63 10/02/24 02:42 37.3 C 98 H 21 118/63 97 10/02/24 02:33 37.3 C 96 H 41 H 121/69 99 10/02/24 02:27 37.4 C 92 H 33 H 98 10/02/24 02:15 120/69 10/02/24 01:57 37.4 C 85 21 100 10/02/24 01:45 131/62 10/02/24 01:39 37.4 C 99 H 31 H 99 10/02/24 01:33 37.4 C 102 H 43 H 128/57 L 100 10/02/24 01:24 37.5 C 99 H 37 H 99 10/02/24 01:15 131/67 10/02/24 01:00 37.6 C H 89 56 H 110/71 98 10/02/24 00:45 37.6 C H 96 H 44 H 138/68 98 10/02/24 00:33 37.6 C H 92 H 34 H 142/68 H 97 10/02/24 00:30 142/68 H 10/02/24 00:18 37.6 C H 99 H 44 H 99 10/02/24 00:15 141/62 H 10/02/24 00:03 37.6 C H 82 20 124/52 L 100 10/01/24 23:00 Nasal Cannula 10/01/24 23:00 87 10/01/24 21:48 37.6 C H 92 H 23 122/65 100 O2 Flow Rate O2 Flow Rate 10/02/24 08:00 10/02/24 08:00 10/02/24 08:00 3 10/02/24 07:00 3 10/02/24 06:47 10/02/24 06:30 10/02/24 06:29 10/02/24 06:15 10/02/24 06:02 10/02/24 05:59 10/02/24 05:45 10/02/24 05:41 10/02/24 05:39 10/02/24 05:15 10/02/24 05:06 10/02/24 04:45 10/02/24 04:33 10/02/24 04:30 10/02/24 04:15 10/02/24 04:00 10/02/24 03:45 10/02/24 03:39 10/02/24 03:30 10/02/24 03:15 10/02/24 03:06 10/02/24 02:45 10/02/24 02:42 10/02/24 02:33 10/02/24 02:27 10/02/24 02:15 10/02/24 01:57 10/02/24 01:45 10/02/24 01:39 10/02/24 01:33 10/02/24 01:24 10/02/24 01:15 10/02/24 01:00 10/02/24 00:45 10/02/24 00:33 10/02/24 00:30 10/02/24 00:18 10/02/24 00:15 10/02/24 00:03 10/01/24 23:00 3 10/01/24 23:00 10/01/24 21:48
[2024-10-02] MEDS: FLUDROCORTISONE ACETATE 0.1 MG TAB PO SCH (10:04)
[2024-10-02 10:48] LABS: BUN Creatinine Ratio 13.4 (10-20); Calcium 8.7 mg/dl (8.6-10.3); Creatinine Clr Calc Pharmacy 12.1 ml/min; Potassium 4.6 mmol/L (3.5-5.1)
[2024-10-02] MEDS: HYDROCORTISONE SOD 50 MG in SYRINGE 0 ML IV SCH (12:19)
--- NOTE | 2024-10-02 13:44 | Orthopedic Progress Note ---
Date of Service October 02, 2024 Assessment & Plan (1) Open wound of lumbar region: Plan: Plan at this time he is medically improving. We will plan for a I&D of the L1 spinous process tomorrow. I will make him n.p.o. after midnight. Admission and Anticipated Discharge Date Admission Date: September 29, 2024 Subjective Patient is comfortable at this time. Again denies any leg pain. Physical Exam Physical Exam: On exam patient is sitting in bed. He is cooperative. His family is at the bedside. Discussed when to testing. Results & Data Vital Signs (Past 12 Hours) Vital Signs Temp Pulse Resp BP Pulse Ox O2 Del Method O2 Del Method 10/02/24 12:06 36.4 C L 99 H 22 94 10/02/24 12:06 131/77 10/02/24 12:06 131/77 10/02/24 12:00 136/75 10/02/24 11:45 132/77 10/02/24 11:45 132/77 10/02/24 11:39 36.2 C L 98 H 22 98 10/02/24 11:30 36.3 C L 93 H 22 99 10/02/24 11:30 155/102 H 10/02/24 11:15 130/74 10/02/24 11:15 130/74 10/02/24 11:12 36.5 C 94 H 22 98 10/02/24 11:09 36.4 C L 94 H 22 97 10/02/24 11:00 124/82 10/02/24 10:45 126/73 10/02/24 10:30 124/67 10/02/24 10:30 36.4 C L 90 20 98 10/02/24 10:27 36.4 C L 102 H 29 H 95 10/02/24 10:15 128/65 10/02/24 10:00 137/80 10/02/24 09:48 36.4 C L 96 H 28 H 97 10/02/24 09:45 143/83 H 10/02/24 09:30 36.3 C L 94 H 24 97 10/02/24 09:02 36.5 C 92 H 25 H 98 10/02/24 09:00 128/72 10/02/24 09:00 128/72 10/02/24 09:00 128/72 10/02/24 08:59 36.5 C 90 34 H 99 10/02/24 08:45 126/62 10/02/24 08:45 126/62 10/02/24 08:45 126/62 10/02/24 08:38 36.5 C 93 H 34 H 99 10/02/24 08:30 125/71 10/02/24 08:20 36.4 C L 96 H 24 99 10/02/24 08:15 118/66 10/02/24 08:15 118/66 10/02/24 08:08 36.5 C 99 H 30 H 99 10/02/24 08:00 117/58 L 10/02/24 08:00 117/58 L 10/02/24 08:00 87 10/02/24 08:00 Room Air 10/02/24 08:00 Nasal Cannula 10/02/24 07:47 36.6 C 83 16 99 10/02/24 07:45 114/61 10/02/24 07:45 114/61 10/02/24 07:45 114/61 10/02/24 07:45 114/61 10/02/24 07:41 36.6 C 86 23 100 10/02/24 07:35 36.6 C 92 H 40 H 98 10/02/24 07:30 131/79 10/02/24 07:30 131/79 10/02/24 07:29 36.7 C 97 H 18 100 10/02/24 07:15 114/66 10/02/24 07:15 114/66 10/02/24 07:14 36.7 C 84 15 97 10/02/24 07:00 143/69 H 10/02/24 07:00 143/69 H 10/02/24 07:00 36.7 C 18 99 Nasal Cannula 10/02/24 06:50 36.7 C 84 17 97 10/02/24 06:47 36.7 C 87 16 128/68 97 10/02/24 06:30 155/76 H 10/02/24 06:29 36.7 C 100 H 19 97 10/02/24 06:15 36.8 C 95 H 42 H 134/75 94 10/02/24 06:02 36.8 C 90 25 H 124/69 95 10/02/24 05:59 36.8 C 84 21 96 10/02/24 05:45 126/63 10/02/24 05:41 36.8 C 77 26 H 98 10/02/24 05:39 36.8 C 77 19 98 10/02/24 05:15 124/60 10/02/24 05:06 36.9 C 76 22 99 10/02/24 04:45 131/70 10/02/24 04:33 37.1 C 88 41 H 98 10/02/24 04:30 37.1 C 93 H 48 H 122/76 99 10/02/24 04:15 37.3 C 89 27 H 120/68 99 10/02/24 04:00 37.3 C 72 18 109/57 L 98 10/02/24 03:45 103/58 L 10/02/24 03:39 37.3 C 75 19 97 10/02/24 03:30 37.3 C 72 23 112/57 L 98 10/02/24 03:15 110/65 10/02/24 03:06 37.3 C 79 19 93 10/02/24 02:45 118/63 10/02/24 02:42 37.3 C 98 H 21 118/63 97 10/02/24 02:33 37.3 C 96 H 41 H 121/69 99 10/02/24 02:27 37.4 C 92 H 33 H 98 10/02/24 02:15 120/69 10/02/24 01:57 37.4 C 85 21 100 10/02/24 01:45 131/62 O2 Flow Rate O2 Flow Rate 10/02/24 12:06 10/02/24 12:06 10/02/24 12:06 10/02/24 12:00 10/02/24 11:45 10/02/24 11:45 10/02/24 11:39 10/02/24 11:30 10/02/24 11:30 10/02/24 11:15 10/02/24 11:15 10/02/24 11:12 10/02/24 11:09 10/02/24 11:00 10/02/24 10:45 10/02/24 10:30 10/02/24 10:30 10/02/24 10:27 10/02/24 10:15 10/02/24 10:00 10/02/24 09:48 10/02/24 09:45 10/02/24 09:30 10/02/24 09:02 10/02/24 09:00 10/02/24 09:00 10/02/24 09:00 10/02/24 08:59 10/02/24 08:45 10/02/24 08:45 10/02/24 08:45 10/02/24 08:38 10/02/24 08:30 10/02/24 08:20 10/02/24 08:15 10/02/24 08:15 10/02/24 08:08 10/02/24 08:00 10/02/24 08:00 10/02/24 08:00 10/02/24 08:00 10/02/24 08:00 3 10/02/24 07:47 10/02/24 07:45 10/02/24 07:45 10/02/24 07:45 10/02/24 07:45 10/02/24 07:41 10/02/24 07:35 10/02/24 07:30 10/02/24 07:30 10/02/24 07:29 10/02/24 07:15 10/02/24 07:15 10/02/24 07:14 10/02/24 07:00 10/02/24 07:00 10/02/24 07:00 3 10/02/24 06:50 10/02/24 06:47 10/02/24 06:30 10/02/24 06:29 10/02/24 06:15 10/02/24 06:02 10/02/24 05:59 10/02/24 05:45 10/02/24 05:41 10/02/24 05:39 10/02/24 05:15 10/02/24 05:06 10/02/24 04:45 10/02/24 04:33 10/02/24 04:30 10/02/24 04:15 10/02/24 04:00 10/02/24 03:45 10/02/24 03:39 10/02/24 03:30 10/02/24 03:15 10/02/24 03:06 10/02/24 02:45 10/02/24 02:42 10/02/24 02:33 10/02/24 02:27 10/02/24 02:15 10/02/24 01:57 10/02/24 01:45
--- NOTE | 2024-10-02 14:14 | Nephrology Consultation ---
Date of Consultation October 02, 2024 Assessment & Plan (1) ENE (acute kidney injury): acute kidney injury on background CKD 4. he has established CKD 4 with GFR around 20 creatinine around 3 as baseline. Because of abnormal ANCA serology even had renal biopsy which showed ATN and he required dialysis briefly but since then has recovered partially. Current creatinine is higher than his baseline. etiology of acute kidney injury is most likely ATN given the low blood pressure he had at the time of admission in the setting of osteomyelitis. his urinary sediment was also classic for ATN with active urine sediment and presence of granular cast as well as hyaline cast. at this point creatinine is still rising and is up to 4.6. We do not know whether he will continue to get worse and if that happens he will be close to needing dialysis in the coming days. Does not need renal biopsy. At this point he is making increasing amount of urine. He does not need IV hydration as she already has some evidence of CHF. Given his underlying cardiopulmonary issues as well as CKD 4 he is at high risk of developing pulmonary edema. His potassium was also high earlier today but with medical management it did come down to normal. If he develops shortness of breath I would have no problem in giving IV Lasix. Avoid nephrotoxic agents including NSAIDs contrast agent and nephrotoxic antibiotics current antibiotic of daptomycin and IV Zosyn is reasonable from renal standpoint and can be continued. strictly monitor input output with Vitale catheter daily renal panel and CBC repeat UA now that the urine appears to be much clear. (2) CKD (chronic kidney disease), stage IV: he has established CKD 4 with GFR around 20 creatinine around 3 as baseline. Because of abnormal ANCA serology even had renal biopsy which showed ATN and he required dialysis briefly but since then has recovered partially. Current creatinine is higher than his baseline (3) Osteomyelitis: seen on MRI and he is getting daptomycin and Zosyn. Continue same Plan total time spent 52 minutes History of Present Illness Reason for Consultation: Ene on CKD and High K Attending Physician: Dinesh Cummings MD History of Present Illness 78-year-old male who has known CKD stage IV with a baseline creatinine on average around 3 GFR around 20. Also has history of acute kidney injury requiring hemodialysis briefly. he follows with Dr. Gunn in [facility]. 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 he presented to the ED on September 29 secondary to abnormal MRI that was done as outpatient and showed possible os teomyelitis. on admission and the 2nd day his creatinine was at baseline at 3.1 and 2.9 but then started rising and this morning is 4.69. His potassium was also high at 6.1 earlier today but after medical management potassium is now normal. review of systems---- patient has back pain. Denies nausea vomiting chest pain shortness of breath orthopnea or other symptoms. He is making lots of urin e and has a Vitale catheter. unless stated otherwise 12 systems reviewed and negative. physical examination elderly white male who appears to be chronically ill. Awake alert oriented x3 and was able to give detailed account of his medical problems mucous membrane is moist neck is supple no JVD chest bilateral diminished breath sounds sluggish occ crackles CVS S1 and S2 regular soft systolic murmur heard abdomen is soft nontender extremities shows signs of chronic venous insufficiency with chronic redness trace to 1+ edema Allergies Allergy/AdvReac Type Severity Reaction Status Date / Time chlorhexidine Allergy Severe Verified 03/16/24 09:47 aztreonam Allergy hives Verified 03/16/24 09:47 Cephalosporins AdvReac Unknown UPSET Verified 03/16/24 09:47 STOMACH ciprofloxacin AdvReac Unknown DIARRHEA Verified 03/16/24 09:47 Iodinated Contrast Media AdvReac Unknown Verified 03/16/24 09:47 levofloxacin AdvReac Unknown Verified 03/16/24 09:47 Home Medications Medication Instructions Recorded Confirmed Type acetaminophen 325 mg tablet 325 mg PO QID PRN Pain (Scale 10/15/21 09/29/24 History (Tylenol) Score 1-3) albuterol sulfate 1.25 mg/3 mL 1.25 mg inhalation BID PRN sob 10/15/21 09/29/24 History solution for nebulization apixaban 5 mg tablet (Eliquis) 5 mg PO BID 10/15/21 09/29/24 History levothyroxine 50 mcg tablet 50 mcg PO DAILY 10/15/21 09/29/24 History metoprolol succinate 25 mg 25 mg PO DAILY 10/15/21 09/29/24 History tablet,extended release 24 hr omeprazole 20 mg capsule,delayed 20 mg PO DAILY 10/15/21 09/29/24 History release atorvastatin 20 mg tablet 20 mg PO DAILY 03/19/22 09/29/24 History syringe with needle, safety 3 mL #100 ea 04/13/23 09/29/24 Rx 21 gauge x 1" (Monoject Safety Syringes) allopurinol 100 mg tablet 200 mg PO DAILY 03/16/24 09/29/24 History calcitriol 0.25 mcg capsule 0.25 mcg PO DAILY #30 caps 03/16/24 09/29/24 Rx testosterone cypionate 100 mg/mL 75 mg (0.75 mL) subcut Q7D #10 mL 05/31/24 09/29/24 Rx intramuscular oil folic acid 1 mg tablet 1 mg PO DAILY 09/29/24 09/29/24 History furosemide 20 mg tablet 20 mg PO DAILY PRN Edema 09/29/24 09/29/24 History oxycodone 5 mg tablet 5 mg PO Q6H PRN Moderate Pain 09/29/24 09/29/24 History (Scale Score 5-6) sodium bicarbonate 650 mg tablet 650 mg PO AMHS 09/29/24 09/29/24 History umeclidinium 62.5 mcg-vilanterol 1 inh inhalation DAILY 09/29/24 09/29/24 History 25 mcg/actuation powdr for inhalation prednisone 5 mg tablet 7.5 mg 10/01/24 History Patient History Medical History Gynecomastia Hemorrhoids Diverticulosis H/O acute pancreatitis Paroxysmal A-fib Hyperglobulinemia hx of HLD (hyperlipidemia) Hypertension Herpes simplex infection crusted, involving lips and right nares Multiple bruises Generalized weakness Hypothyroid Peripheral edema Peripheral edema Pneumonia positive for rhinovius and aspergillosis Diastolic CHF Diabetes CKD (chronic kidney disease), stage IV Erythema nodosum ANCA positive, on chronic prednisone Surgical History History of cataract surgery History of back surgery H/O lymph node biopsy possible sarcoid History of bronchoscopy H/O left inguinal hernia repair Family History Mother Stroke Myocardial infarction Father Heart disease Social History Smoking Status: Former smoker Hx Alcohol Use: Yes Alcohol type: beer Alcohol Intake Frequency: 2-3 x/Week Hx Substance Use: No (has RX for oxycodone but rarely uses it) Preferred Language: Russian Communication Ability: Effective Final Inspector Required: No Beliefs That Will Affect Care: None Current Living Situation: Spouse Feels Safe at Home: Yes Assistive Devices: Cane Results & Data Vital Signs (Past 12 Hours) Vital Signs Temp Pulse Resp BP Pulse Ox O2 Del Method O2 Del Method 10/02/24 12:06 36.4 C L 99 H 22 94 10/02/24 12:06 131/77 10/02/24 12:06 131/77 10/02/24 12:00 136/75 10/02/24 11:45 132/77 10/02/24 11:45 132/77 10/02/24 11:39 36.2 C L 98 H 22 98 10/02/24 11:30 36.3 C L 93 H 22 99 10/02/24 11:30 155/102 H 10/02/24 11:15 130/74 10/02/24 11:15 130/74 10/02/24 11:12 36.5 C 94 H 22 98 10/02/24 11:09 36.4 C L 94 H 22 97 10/02/24 11:00 124/82 10/02/24 10:45 126/73 10/02/24 10:30 124/67 10/02/24 10:30 36.4 C L 90 20 98 10/02/24 10:27 36.4 C L 102 H 29 H 95 10/02/24 10:15 128/65 10/02/24 10:00 137/80 10/02/24 09:48 36.4 C L 96 H 28 H 97 10/02/24 09:45 143/83 H 10/02/24 09:30 36.3 C L 94 H 24 97 10/02/24 09:02 36.5 C 92 H 25 H 98 10/02/24 09:00 128/72 10/02/24 09:00 128/72 11/25/24 09:00 128/72 10/02/24 08:59 36.5 C 90 34 H 99 10/02/24 08:45 126/62 10/02/24 08:45 126/62 10/02/24 08:45 126/62 10/02/24 08:38 36.5 C 93 H 34 H 99 10/02/24 08:30 125/71 10/02/24 08:20 36.4 C L 96 H 24 99 10/02/24 08:15 118/66 10/02/24 08:15 118/66 10/02/24 08:08 36.5 C 99 H 30 H 99 10/02/24 08:00 117/58 L 10/02/24 08:00 117/58 L 10/02/24 08:00 87 10/02/24 08:00 Room Air 10/02/24 08:00 Nasal Cannula 10/02/24 07:47 36.6 C 83 16 99 10/02/24 07:45 114/61 10/02/24 07:45 114/61 10/02/24 07:45 114/61 10/02/24 07:45 114/61 10/02/24 07:41 36.6 C 86 23 100 10/02/24 07:35 36.6 C 92 H 40 H 98 10/02/24 07:30 131/79 10/02/24 07:30 131/79 10/02/24 07:29 36.7 C 97 H 18 100 10/02/24 07:15 114/66 10/02/24 07:15 114/66 10/02/24 07:14 36.7 C 84 15 97 10/02/24 07:00 143/69 H 10/02/24 07:00 143/69 H 10/02/24 07:00 36.7 C 18 99 Nasal Cannula 10/02/24 06:50 36.7 C 84 17 97 10/02/24 06:47 36.7 C 87 16 128/68 97 10/02/24 06:30 155/76 H 10/02/24 06:29 36.7 C 100 H 19 97 10/02/24 06:15 36.8 C 95 H 42 H 134/75 94 10/02/24 06:02 36.8 C 90 25 H 124/69 95 10/02/24 05:59 36.8 C 84 21 96 10/02/24 05:45 126/63 10/02/24 05:41 36.8 C 77 26 H 98 10/02/24 05:39 36.8 C 77 19 98 10/02/24 05:15 124/60 10/02/24 05:06 36.9 C 76 22 99 10/02/24 04:45 131/70 10/02/24 04:33 37.1 C 88 41 H 98 10/02/24 04:30 37.1 C 93 H 48 H 122/76 99 10/02/24 04:15 37.3 C 89 27 H 120/68 99 10/02/24 04:00 37.3 C 72 18 109/57 L 98 10/02/24 03:45 103/58 L 10/02/24 03:39 37.3 C 75 19 97 10/02/24 03:30 37.3 C 72 23 112/57 L 98 10/02/24 03:15 110/65 10/02/24 03:06 37.3 C 79 19 93 10/02/24 02:45 118/63 10/02/24 02:42 37.3 C 98 H 21 118/63 97 10/02/24 02:33 37.3 C 96 H 41 H 121/69 99 10/02/24 02:27 37.4 C 92 H 33 H 98 10/02/24 02:15 120/69 O2 Flow Rate O2 Flow Rate 10/02/24 12:06 10/02/24 12:06 10/02/24 12:06 10/02/24 12:00 10/02/24 11:45 10/02/24 11:45 10/02/24 11:39 10/02/24 11:30 10/02/24 11:30 10/02/24 11:15 10/02/24 11:15 10/02/24 11:12 10/02/24 11:09 10/02/24 11:00 10/02/24 10:45 10/02/24 10:30 10/02/24 10:30 10/02/24 10:27 10/02/24 10:15 10/02/24 10:00 10/02/24 09:48 10/02/24 09:45 10/02/24 09:30 10/02/24 09:02 10/02/24 09:00 10/02/24 09:00 10/02/24 09:00 10/02/24 08:59 10/02/24 08:45 10/02/24 08:45 10/02/24 08:45 10/02/24 08:38 10/02/24 08:30 10/02/24 08:20 10/02/24 08:15 10/02/24 08:15 10/02/24 08:08 10/02/24 08:00 10/02/24 08:00 10/02/24 08:00 10/02/24 08:00 10/02/24 08:00 3 10/02/24 07:47 10/02/24 07:45 10/02/24 07:45 10/02/24 07:45 10/02/24 07:45 10/02/24 07:41 10/02/24 07:35 10/02/24 07:30 10/02/24 07:30 10/02/24 07:29 10/02/24 07:15 10/02/24 07:15 10/02/24 07:14 10/02/24 07:00 10/02/24 07:00 10/02/24 07:00 3 10/02/24 06:50 10/02/24 06:47 10/02/24 06:30 10/02/24 06:29 10/02/24 06:15 10/02/24 06:02 10/02/24 05:59 10/02/24 05:45 10/02/24 05:41 10/02/24 05:39 10/02/24 05:15 10/02/24 05:06 10/02/24 04:45 10/02/24 04:33 10/02/24 04:30 10/02/24 04:15 10/02/24 04:00 10/02/24 03:45 10/02/24 03:39 10/02/24 03:30 10/02/24 03:15 10/02/24 03:06 10/02/24 02:45 10/02/24 02:42 10/02/24 02:33 10/02/24 02:27 10/02/24 02:15 Laboratory Results CBC renal panel from both outpatient as well as inpatient reviewed in detail. Urine testing reviewed Diagnostic Findings chest x-ray shows evidence of CHF (3) Osteomyelitis Osteomyelitis location: unspecified site Osteomyelitis type: unspecified type Qualified Code(s): M86.9 - Osteomyelitis, unspecified
--- NOTE | 2024-10-02 15:53 | Electrocardiogram Report ---
Test Reason : Blood Pressure : */* mmHG Vent. Rate : 99 BPM Atrial Rate : 99 BPM P-R Int : 184 ms QRS Dur : 72 ms QT Int : 366 ms P-R-T Axes : 34 -25 2 degrees QTcB Int : 469 ms Normal sinus rhythm Minimal voltage criteria for LVH, may be normal variant Borderline ECG When compared with ECG of 29-Sep-2024 19:20, Vent. rate has increased by 37 bpm QT has lengthened Confirmed by Benny Gutierrez ([id number]) on 10/02/2024 3:53:05 PM Referred By: REFERRED SELF Confirmed By: Benny Gutierrez
[2024-10-02] MEDS: MUPIROCIN 2% OINT 22 GM TUBE EXT SCH ×2 (16:04→21:16)
[2024-10-02] MEDS: ALBUTEROL 0.083% NEBU SOLN 3 ML VIAL INH PRN (16:08)
[2024-10-02 16:47] LABS: Appearance Urine Clear (Clear); Bacteria Urine Automated None Seen (None Seen); Bilirubin Urine Negative (Negative); Blood Urine 2+ (Negative); Color Urine Yellow; Epithelial Cell Urine Auto 0-2 /hpf (0-2); Glucose Urine UA Trace (Negative); Ketones Urine Negative (Negative); Leukocyte Esterase Urine Trace (Negative); Nitrite Urine Negative (Negative); Protein Urine 1+ (Negative); RBC Urine Automated 0-2 /hpf (0-2); Specific Gravity Urine 1.012 (1.000-1.030); Urobilinogen Urine Negative (Negative)
[2024-10-03 04:31] LABS: Hematocrit (blood only) 28.3 % (42.0-52.0); Hemoglobin 9.3 g/dl (14.0-18.0); Mean Corpuscular Hemoglobin 33.9 pg (25.0-34.0); Mean Corpuscular Hgb Conc 32.9 g/dL (32.0-36.0); Mean Corpuscular Volume 103.3 fL (80.0-100.0); Mean Platelet Volume 12.1 fL (9.4-12.4); Platelet Count 86 K/uL (130-400); RDW Coefficient of Variation 15.9 % (11.5-14.5); RDW Standard Deviation 61.1 fL (36.4-46.3); Red Blood Count 2.74 M/uL (4.70-6.10); White Blood Count 14.05 K/ul (4.8-10.8)
[2024-10-03 04:48] LABS: Albumin Level 2.9 gm/dl (3.4-5.0); Calcium 8.5 mg/dl (8.6-10.3)
[2024-10-03 05:04] LABS: BUN Creatinine Ratio 15.6 (10-20); Creatinine Clr Calc Pharmacy 11.8 ml/min
[2024-10-03 05:17] LABS: ANC (manual) 13.21 K/uL (1.4-6.5); Lymphocytes % (manual) 5 %; Monocytes # (manual) 0.14 K/uL (0.11-0.59); Monocytes % (manual) 1 %; Neutrophils # (manual) 13.21 K/uL (1.40-6.50); Neutrophils % (manual) 94 %; RBC Morphology Unremarkable
[2024-10-03] MEDS ORDERED: SODIUM CHLORIDE 0.9% 100 ML IV PRN (07:54)
[2024-10-03] MEDS ORDERED: SODIUM CHLORIDE 0.9% 50 ML IV PRN (07:54)
--- NOTE | 2024-10-03 09:59 | Nephrology Progress Note ---
Date of Service October 03, 2024 Assessment & Plan Admission and Anticipated Discharge Date Admission Date: September 29, 2024 Subjective Assessment & Plan (1) LIZZ (acute kidney injury): acute kidney injury on background CKD 4. he has established CKD 4 with GFR around 20 creatinine around 3 as baseline. Because of abnormal ANCA serology even had renal biopsy which showed ATN and he required dialysis briefly but since then has recovered partially. Current creatinine is higher than his baseline. etiology of acute kidney injury is most likely ATN given the low blood pressure he had at the time of admission in the setting of osteomyelitis. his urinary sediment was also classic for ATN with active urine sediment and presence of granular cast as well as hyaline cast. at this point creatinine is still rising but slowly and is up to 4.8. We do not know whether he will continue to get worse and if that happens he will be close to needing dialysis in the coming days. However no dialysis needed today. But given OR trip/Infection and Abx there is chance he may worsen and need dialysis. will follow Does not need renal biopsy. At this point he is making amount of urine. He does not need IV hydration as he already has some evidence of CHF. Given his underlying cardiopulmonary issues as well as CKD 4 he is at high risk of developing pulmonary edema. electrolytes are acceptable today. continue home dose of Sodium bicarb If he develops shortness of breath I would have no problem in giving IV Lasix. Avoid nephrotoxic agents including NSAIDs contrast agent and nephrotoxic antibiotics current antibiotic of daptomycin and IV Zosyn is reasonable from renal standpoint and can be continued. strictly monitor input output with Vitale catheter daily renal panel and CBC Phos is high but he is NPO so no need of Binders. hgb today 9.3. keep > 8 or at least > 7 with Surgery (2) CKD (chronic kidney disease), stage IV: he has established CKD 4 with GFR around 20 creatinine around 3 as baseline. Because of abnormal ANCA serology even had renal biopsy which showed ATN and he required dialysis briefly but since then has recovered partially. Current creatinine is higher than his baseline. (3) Osteomyelitis: seen on MRI and he is getting daptomycin and Zosyn. Both are acceptable from renal Standpoint. Continue same. to go to OR for I and D today Continue same S---- patient has back pain. Denies nausea vomiting chest pain shortness of breath orthopnea or other symptoms. He is making lots of urine and has a Vitale catheter. unless stated otherwise 12 systems reviewed and negative. physical examination elderly white male who appears to be chronically ill. Awake alert oriented x3 and was able to give detailed account of his medical problems mucous membrane is moist neck is supple no JVD chest bilateral diminished breath sounds sluggish occ crackles CVS S1 and S2 regular soft systolic murmur heard abdomen is soft nontender extremities shows signs of chronic venous insufficiency with chronic redness trace to 1+ edema Results & Data Vital Signs (Past 12 Hours) Vital Signs Temp Pulse Pulse Resp BP BP Pulse Ox 10/03/24 08:59 36.5 C 70 21 141/84 H 94 10/03/24 08:57 10/03/24 08:42 36.6 C 92 H 24 176/102 H 91 10/03/24 07:26 69 10/03/24 03:35 36.7 C 75 32 H 123/80 96 10/02/24 23:57 90 10/02/24 22:53 37.1 C 90 22 125/66 97 O2 Del Method 10/03/24 08:59 10/03/24 08:57 Room Air 10/03/24 08:42 10/03/24 07:26 10/03/24 03:35 Room Air 10/02/24 23:57 10/02/24 22:53 Room Air
[2024-10-03 10:30] LABS: Dohle Bodies 1+
--- NOTE | 2024-10-03 10:49 | Hospitalist Progress Note ---
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 Lumbar Spine MRI: IMPRESSION1. L2-L5 instrumented fusion and L2-L4 laminectomies.2. Severe L5-S1 distal junctional thecal sac stenosis.3. Dorsal subcutaneous fat stranding and swelling with a shallow sinus tract. Artifact limiting assessment of sinus tract depth with accuracy. L1 spinous process signal abnormality with new erosion involving the tip of L1 spinous process. The differential includes reactive osteitis and/or osteomyelitis. Sinus wound in Lumbar region Hx of Lumbar spine surgery Possible Severe Sepsis Adrenal Insufficiency Patient is referred for admission due to MRI lumbar spine findings as outpatient. Lumbar spine MRI as above No leukocytosis present ESR slightly elevated to 21, CRP slightly elevated to 0.63. Evaluated by orthospine; prominence of L1 spinous processes likely etiology of the findings; partial resection and debridement to be considered after reviewing the images. Superficial wound culture cultureMSSA and pseudomonas aeruginosa Blood culture on admission - NGTD on 10/01: Patient had a spikes of fever, hypotension and tachycardia.Discussed with director fundraising to transfer patient to ICU for severe sepsis and possible need for vasopressors. Patient transferred to ICU for vasopressors. Off vasopressors since evening of 10/01. Transfer to floors on 10/02 Reviewed morning labs; platelet count of 86,000; patient given 1 unit of pooled platelets for anticipated surgery. Discussed with orthospine; plan for incision and drainage spinous process later today. Currently on Zosyn for positive MSSA and Pseudomonas aeruginosa from wound culture. Daptomycin stopped.Infectious disease consulted; appreciate recommedation On hydrocortisone every8 hours; plan to wean down as tolerated back to home dose of Prednisone 7.5mg once a day after surgery LIZZ on CKD Hyperkalemia baseline cr 2.7-3, Creatinine up trended to 4.81 on 10/03; likely due to hypotensive episodes Given IV fluids Urine output reassuring Nephrology consulted; likely ATN. Monitor CBC. PAF: chronic, stable, continue metoprolol. hold eliquis for surgery Acute on Chronic HFpEF HTN/HLD Chest x-ray on 10/01 shows mild pulmonary edema Monitor respiratory status; supplemental oxygen as needed Given iv lasix 20mg on 10/02 am COPD: chronic, stable, continue inhaler Chronic gout: continue allopurinol SCC of left neck cutaneous tissue s/p dissection requiring reconstruction and flap procedure in August in [place] currently to undergo adjuvant radiation at [facility] DVT ppx: Eliquis, currently on hold for possible surgery in next couple of days. FULL CODE PCP: Poli Dispo: Plan for I&D today. PT OT after that. Awaiting Infectious disease evaluation as well Time spent evaluating patient, direct bedside care, chart review, placing orders, interpretation of diagnostic studies, discussion with consultants, patient, and family members, as well as other required patient management activities is 50 minutes Please note the above document was generated using voice recognition software. It may contain grammatical, syntax or spelling errors. Any formal questions or concerns about the content, text or information contained within the body of this dictation should be directly addressed to the provider for clarification Admission and Anticipated Discharge Date Admission Date: September 29, 2024 Subjective Patient seen and examined at bedside. He appears comfortable; not in distress. Blood pressure is stable and he is saturating well in room air No significant events overnight Review of Systems Review of Systems: All systems reviewed & are unremarkable except as noted in Subjective Physical Exam Physical Exam: Constitutional: Alert oriented x 3; Comfortable not in distress. Respiratory: Bilateral vesicular breath sound. Cardiovascular: RRR, no murmur, no edema Vessels: no JVD or carotid bruit Chest: Bilateral vesicular breath sound Abdomen: soft, non-tender Musculoskeletal: Small lump involving the upper lumbar region with Sinus track; minimal drainage noted.Dressing over left thigh present from where his skin graft was taken; minimal soakage. Neurologic: PERRL, EOMI, accommodation nl, no face palsy, no dysarthria CN's II-XI intact bilaterally and moves all extremities Psychiatric: A+Ox3, euthymic affect Results & Data Results & Data Vital Signs (Past 12 Hours) Vital Signs Temp Pulse Pulse Resp BP BP Pulse Ox 10/03/24 09:14 36.5 C 21 L 22 137/78 96 10/03/24 08:59 36.5 C 70 21 141/84 H 94 10/03/24 08:57 10/03/24 08:42 36.6 C 92 H 24 176/102 H 91 10/03/24 07:26 69 10/03/24 03:35 36.7 C 75 32 H 123/80 96 10/02/24 23:57 90 10/02/24 22:53 37.1 C 90 22 125/66 97 O2 Del Method 10/03/24 09:14 10/03/24 08:59 10/03/24 08:57 Room Air 10/03/24 08:42 10/03/24 07:26 10/03/24 03:35 Room Air 10/02/24 23:57 10/02/24 22:53 Room Air
--- NOTE | 2024-10-03 11:20 | Anesthesiology Consultation ---
Date of Service October 03, 2024 Assessment & Plan (1) Encounter for pre-operative examination: Chart Review Chart Review: Acceptable Risk for Surgery (urgent) History Surgery Operation Date: 10/03/24 07:00 Proposed Procedures p Incision and Drainage Spinous Process - Vickey Irene DO Height/Weight Height: 5 ft 7 in Weight: 71.1 kg Allergies Allergy/AdvReac Type Severity Reaction Status Date / Time chlorhexidine Allergy Severe Verified 03/16/24 09:47 aztreonam Allergy hives Verified 03/16/24 09:47 Cephalosporins AdvReac Unknown UPSET Verified 03/16/24 09:47 STOMACH ciprofloxacin AdvReac Unknown DIARRHEA Verified 03/16/24 09:47 Iodinated Contrast Media AdvReac Unknown Verified 03/16/24 09:47 levofloxacin AdvReac Unknown Verified 03/16/24 09:47 Medications Home Medications Medication Instructions Recorded Confirmed Last Taken acetaminophen 325 mg tablet 325 mg PO QID PRN Pain (Scale 10/15/21 09/29/24 Unknown (Tylenol) Score 1-3) albuterol sulfate 1.25 mg/3 mL 1.25 mg inhalation BID PRN sob 10/15/21 09/29/24 Unknown solution for nebulization apixaban 5 mg tablet (Eliquis) 5 mg PO BID 10/15/21 09/29/24 Unknown levothyroxine 50 mcg tablet 50 mcg PO DAILY 10/15/21 09/29/24 Unknown metoprolol succinate 25 mg 25 mg PO DAILY 10/15/21 09/29/24 Unknown tablet,extended release 24 hr omeprazole 20 mg capsule,delayed 20 mg PO DAILY 10/15/21 09/29/24 Unknown release atorvastatin 20 mg tablet 20 mg PO DAILY 03/19/22 09/29/24 Unknown syringe with needle, safety 3 mL #100 ea 04/13/23 09/29/24 Unknown 21 gauge x 1" (Monoject Safety Syringes) allopurinol 100 mg tablet 200 mg PO DAILY 03/16/24 09/29/24 Unknown calcitriol 0.25 mcg capsule 0.25 mcg PO DAILY #30 caps 03/16/24 09/29/24 Unknown testosterone cypionate 100 mg/mL 75 mg (0.75 mL) subcut Q7D #10 mL 05/31/24 09/29/24 Unknown intramuscular oil folic acid 1 mg tablet 1 mg PO DAILY 09/29/24 09/29/24 Unknown furosemide 20 mg tablet 20 mg PO DAILY PRN Edema 09/29/24 09/29/24 Unknown oxycodone 5 mg tablet 5 mg PO Q6H PRN Moderate Pain 09/29/24 09/29/24 Unknown (Scale Score 5-6) sodium bicarbonate 650 mg tablet 650 mg PO AMHS 09/29/24 09/29/24 Unknown umeclidinium 62.5 mcg-vilanterol 1 inh inhalation DAILY 09/29/24 09/29/24 Unknown 25 mcg/actuation powdr for inhalation prednisone 5 mg tablet 7.5 mg 10/01/24 Unknown Active Medications Generic Name Dose Route Start Last Admin Trade Name Freq PRN Reason Stop Dose Admin Acetaminophen 650 mg 09/29/24 23:43 10/01/24 16:02 Acetaminophen 325 Mg Tab PO 10/29/24 23:42 650 mg Q4H PRN Administration Pain or Fever Albuterol 1.25 mg 09/30/24 00:35 10/02/24 16:08 Albuterol 0.083% Nebu Soln 3 Ml Vial INH 10/30/24 00:34 1.25 mg BID PRN Administration sob Allopurinol 200 mg 09/30/24 09:00 10/03/24 09:29 Allopurinol 100 Mg Tab PO 10/30/24 08:59 200 mg DAILY ZAFAR Administration Apixaban 5 mg 09/29/24 23:43 09/30/24 20:48 Apixaban 5 Mg Tablet PO 10/29/24 23:42 5 mg BID ZAFAR Administration Atorvastatin Calcium 20 mg 09/30/24 09:00 09/30/24 08:07 Atorvastatin 20 Mg Tab PO 10/30/24 08:59 20 mg DAILY ZAFAR Administration Calcitriol 0.25 mcg 09/30/24 09:00 10/03/24 09:31 Calcitriol 0.25 Mcg Capsule PO 10/30/24 08:59 0.25 mcg DAILY ZAFAR Administration Folic Acid 1 mg 09/30/24 09:00 10/03/24 09:58 Folic Acid 1 Mg Tab PO 10/30/24 08:59 1 mg DAILY ZAFAR Administration Piperacillin Sod/Tazobactam Sod 4.5 gm in 100 mls @ 25 mls/hr 10/01/24 01:00 10/03/24 07:33 Zosyn IV 10/08/24 00:59 Infused Q12H ZAFAR Infusion Protocol Hydrocortisone Sodium 1 mls @ 4 mls/min 10/02/24 12:00 10/03/24 05:26 Succinate 50 mg/ Syringe IV 11/01/24 11:59 4 mls/min Q8H ZAFAR Administration Lactobacillus Acidophilus 1,250 mg 09/30/24 09:00 10/03/24 09:30 Advanced Probiotic 625 Mg Capsule PO 10/30/24 08:59 1,250 mg DAILY ZAFAR Administration Levothyroxine Sodium 50 mcg 09/30/24 06:30 10/03/24 05:26 Levothyroxine Sodium 50 Mcg Tablet PO 10/30/24 06:29 50 mcg DAILYBB ZAFAR Administration Metoprolol Succinate 25 mg 09/30/24 09:00 10/03/24 09:57 Metoprolol Succ 25mg Ext Rel Tab PO 10/30/24 08:59 25 mg DAILY ZAFAR Administration Morphine Sulfate 2 mg 10/01/24 10:55 10/01/24 18:34 Morphine Sulfate 2 Mg/Ml Carp IV 10/15/24 10:54 2 mg Q3H PRN Administration Pain Mupirocin 1 appln 10/02/24 16:00 10/02/24 16:04 Mupirocin 2% Oint 22 Gm Tube EXT 11/01/24 15:44 1 appln Q14D ZAFAR Administration Ondansetron HCl 4 mg 09/29/24 23:43 09/30/24 22:56 Ondansetron Inj 2 Mg/Ml 2 Ml Vial IV 10/29/24 23:42 4 mg Q6H PRN Administration Nausea Pantoprazole Sodium 40 mg 09/30/24 09:00 10/03/24 09:57 Pantoprazole 40 Mg Tab PO 10/30/24 08:59 40 mg DAILY ZAFAR Administration Polyethylene Glycol 17 gm 09/29/24 23:43 09/30/24 08:05 Polyethylene (Miralax) 17 Gm Pack PO 10/29/24 23:42 17 gm DAILY PRN Administration Constipation Sodium Bicarbonate 650 mg 09/29/24 23:43 10/03/24 09:57 Sodium Bicarbonate 650 Mg Tab PO 10/29/24 23:42 650 mg AMHS ZAFAR Administration Umeclidinium/Vilanterol 1 puffs 09/30/24 09:00 10/03/24 09:58 Umeclidinium/Vilanterol 62.5/25mcg 7 Puffs/Inhaler INH 10/30/24 08:59 1 puffs DAILY ZAFAR Administration Past Medical History Medical History (Updated 10/03/24 @ 11:20 by Misha Menjivar MD) Acute kidney injury superimposed on chronic kidney disease Gynecomastia Hemorrhoids Diverticulosis H/O acute pancreatitis Paroxysmal A-fib Hyperglobulinemia hx of HLD (hyperlipidemia) Hypertension Herpes simplex infection crusted, involving lips and right nares Multiple bruises Generalized weakness Hypothyroid Peripheral edema Pneumonia positive for rhinovius and aspergillosis Diastolic CHF Diabetes CKD (chronic kidney disease), stage IV Erythema nodosum ANCA positive, on chronic prednisone Past Family History Family History Mother Stroke Myocardial infarction Father Heart disease Past Surgical History Surgical History History of cataract surgery History of back surgery H/O lymph node biopsy possible sarcoid History of bronchoscopy H/O left inguinal hernia repair Social History Smoking Status: Former smoker Smoking End Date: "early " Hx Alcohol Use: Yes Alcohol type: beer alcohol intake frequency: holidays/special occasions only Hx Substance Use: No (has RX for oxycodone but rarely uses it) Physical Exam Vital Signs Last Vital Signs Temp 36.5 C 10/03/24 09:14 Pulse 21 L 10/03/24 09:14 Resp 22 10/03/24 09:14 BP 137/78 10/03/24 09:14 Pulse Ox 96 10/03/24 09:14 O2 Del Method Room Air 10/03/24 08:57 O2 Flow Rate 3 10/02/24 08:00 Testing Laboratory Results 10/03/24 03:57 10/03/24 03:57 PT 10.9 Seconds (9.0-12.0) 09/29/24 19:00 INR 1.0 (0.9-1.1) 09/29/24 19:00 APTT 23 Seconds (21-31) 09/29/24 19:00 Urine Color Yellow 10/02/24 16:15 Urine Appearance Clear (Clear) 10/02/24 16:15 Urine pH 6.0 (4.5-7.5) 10/02/24 16:15 Ur Specific [place] 1.012 (1.000-1.030) 10/02/24 16:15 Urine Protein 1+ (Negative) H 10/02/24 16:15 Urine Glucose (UA) Trace (Negative) H 10/02/24 16:15 Urine Ketones Negative (Negative) 10/02/24 16:15 Urine Nitrite Negative (Negative) 10/02/24 16:15 Ur Leukocyte Esterase Trace (Negative) H 10/02/24 16:15 Urine WBC (Auto) 6-10 /hpf (0-5) H 10/02/24 16:15 Urine RBC (Auto) 0-2 /hpf (0-2) 10/02/24 16:15 U Hyaline Cast (Auto) 6-10 /lpf (0-2) H 10/02/24 16:15 U Epithel Cells (Auto) 0-2 /hpf (0-2) 10/02/24 16:15 Urine Bacteria (Auto) None Seen (None Seen) 10/02/24 16:15 10/01/24 10:00 Urine Culture - Final Urine,Clean Catch No growth - less than 1,000 colonies/mL. 09/30/24 18:47 Aerobic Blood Culture - Preliminary Blood No growth in Aerobic bottle after 48 hours. Anaerobic Blood Culture - Preliminary No growth in Anaerobic bottle after 48 hours. 09/30/24 18:44 Aerobic Blood Culture - Preliminary Blood No growth in Aerobic bottle after 48 hours. Anaerobic Blood Culture - Preliminary No growth in Anaerobic bottle after 48 hours. 09/29/24 19:37 Gram Stain - Final Back Wound Culture - Final Staphylococcus aureus Pseudomonas aeruginosa 09/29/24 19:00 Aerobic Blood Culture - Preliminary Blood No growth in Aerobic bottle after 48 hours. Anaerobic Blood Culture - Preliminary No growth in Anaerobic bottle after 48 hours. 09/29/24 19:00 Aerobic Blood Culture - Preliminary Blood No growth in Aerobic bottle after 48 hours. Anaerobic Blood Culture - Preliminary No growth in Anaerobic bottle after 48 hours. Electrocardiogram Date: 10/02/24 Findings: + NSR @ (53)
[2024-10-03 12:07] LABS: Hematocrit (blood only) 29.4 % (42.0-52.0); Hemoglobin 9.6 g/dl (14.0-18.0); Mean Corpuscular Hgb Conc 32.7 g/dL (32.0-36.0); Mean Corpuscular Volume 104.3 fL (80.0-100.0); Mean Platelet Volume 11.7 fL (9.4-12.4); Platelet Count 103 K/uL (130-400); RDW Coefficient of Variation 15.6 % (11.5-14.5); RDW Standard Deviation 60.3 fL (36.4-46.3); Red Blood Count 2.82 M/uL (4.70-6.10); White Blood Count 12.17 K/ul (4.8-10.8)
[2024-10-03] MEDS ORDERED: ROCURONIUM BROMIDE 10 MG/ML 5 ML VIAL IV ONE (13:43)
[2024-10-03] MEDS ORDERED: ONDANSETRON INJ 2 MG/ML 2 ML VIAL ONE (13:43)
[2024-10-03] MEDS ORDERED: LIDOCAINE 2% 2 ML VIAL/AMP(20MG/ML) INFIL ONE (13:43)
[2024-10-03] MEDS ORDERED: PROPOFOL IV EMULSION 10 MG/ML 20 ML VIAL IV ONE (13:43)
[2024-10-03] MEDS ORDERED: GLYCOPYRROLATE 0.2 MG/ML VIAL ONE (13:43)
[2024-10-03] MEDS ORDERED: DEXAMETHASONE SOD INJ 4 MG/ML VIAL ONE (13:43)
[2024-10-03] MEDS ORDERED: fentaNYL citrate PF 100 MCG/2 ML VIAL ONE (13:43)
[2024-10-03] MEDS ORDERED: SUGAMMADEX SODIUM 200 MG/2 ML VIAL IV ONE (13:47)
[2024-10-03 13:53] LABS: ANC (manual) 12.05 K/uL (1.4-6.5); Monocytes # (manual) 0.12 K/uL (0.11-0.59); Monocytes % (manual) 1 %; Neutrophils # (manual) 12.05 K/uL (1.40-6.50); Neutrophils % (manual) 99 %
[2024-10-03] MEDS ORDERED: PROMETHAZINE HCL 6.25 MG in SODIUM CHLORIDE 0.9% 50 ML IV PRN (14:03)
[2024-10-03] MEDS ORDERED: ATROPINE SULFATE 0.1 MG/ML 10ML SYR IV PRN ×2 (14:03→16:34)
--- NOTE | 2024-10-03 14:39 | History & Physical Bridge Note ---
Date of Service October 03, 2024 History & Physical Bridge Note I have examined the patient, reviewed the History & Physical and in the interval since the performance of the History & Physical I have noted the following changes of clinical significance: no changes noted Irrigation debridement lumbar spine resection of L1 spinous process.
[2024-10-03] MEDS: BUPIVACAINE/EPINEPHRINE 0.25% 1:200,000 30 ML VIAL ONE (15:43)
[2024-10-03] MEDS: ceFAZolin 330 MG/ML 1 GM VIAL ONE (15:44)
[2024-10-03] MEDS: VANCOMYCIN HCL 1000MG/20ML VIAL ONE (15:44)
[2024-10-03] MEDS: GENTAMICIN SULFATE 40 MG/ML 2 ML VIAL ONE (15:44)
[2024-10-03] MEDS: FLOSEAL HEMOSTATIC MATRIX 10ML TOP ONE (15:54)
--- NOTE | 2024-10-03 15:55 | Infectious Disease Consult ---
Date of Service October 03, 2024 Telehealth Information I performed this visit using a real-time telehealth connection between my location and the patients location ([facility]). After connecting through interactive tele-video, patient was identified by name and date of and/or wristband check.Patient (or authorized healthcare solar manufacturer's representative) was informed that this was a telemedicine visit and it was being conducted confidentially over secure lines. My office door was closed and no one else was present in the room with me.Patient (or authorized healthcare solar manufacturer's representative) provided consent to proceed with the visit, expressed an understanding of privacy and security of the telemedicine visit, and gave permission to have a hospital solar manufacturer's representative in the room in order to assist with the visit and to conduct portions of the visit, as needed. I informed the patient (or authorized healthcare solar manufacturer's representative) that I reviewed their record and presented the opportunity for them to ask any questions regarding the visit today. The patient agreed to participate. Assessment & Plan (1) Infection associated with internal fixation device of spine: (2) Vertebral osteomyelitis: (3) Draining cutaneous sinus tract: (4) ANCA-associated vasculitis: (5) CKD (chronic kidney disease), stage IV: Plan - I agree with IV piptazo for now pending intra-op cultures. - Plan for I&D today without hardware removal as it might destabilize the spine. Please send intraop samples for bacterial, fungal and AFB cultures as well. - He will require at least 6 weeks of IV antibiotic to be followed after with oral suppressive antibiotic for life (all based on cultures and sensitivities). - We will continue to follow. History of Present Illness History of Present Illness Mr. Davis a 78-year-old man with medical hx of HTN, HFpEF, ANCA associated vasculitis, CKD stage IV, SCC neck S/P wide excision and left neck dissection and paroxysmal afib who was admitted to [facility] on 09/29 after being instructed by his orthopedic surgeon to come to the ED based on MRI findings. He underwent lumbar spine laminectomy and spine fusion around 6 years ago and has been doing well until one year ago when he first noticed a lump at the site of old surgical incision. In Aug 2024, the lump opened and started draining clear fluid. He F/U with his orthopedic who obtained an MRI spine outpatient which showed L2-L5 instrumented fusion and L2-L4 laminectomies, severe L5-S1 distal junctional thecal sac stenosis, dorsal subcutaneous fat stranding and swelling with a shallow sinus tract. it further demonstrated L1 spinous process signal abnormality with new erosion involvement at the tip of the L1 spinous process. Hence, he was instructed to come to the ED for further management. He didn't endorse any fever or chills, or lower extremity weakness at any point during the last year. Allergies Allergy/AdvReac Type Severity Reaction Status Date / Time chlorhexidine Allergy Severe Verified 03/16/24 09:47 aztreonam Allergy hives Verified 03/16/24 09:47 Cephalosporins AdvReac Unknown UPSET Verified 03/16/24 09:47 STOMACH ciprofloxacin AdvReac Unknown DIARRHEA Verified 03/16/24 09:47 Iodinated Contrast Media AdvReac Unknown Verified 03/16/24 09:47 levofloxacin AdvReac Unknown Verified 03/16/24 09:47 Home Medications Medication Instructions Recorded Confirmed Type acetaminophen 325 mg tablet 325 mg PO QID PRN Pain (Scale 10/15/21 09/29/24 History (Tylenol) Score 1-3) albuterol sulfate 1.25 mg/3 mL 1.25 mg inhalation BID PRN sob 10/15/21 09/29/24 History solution for nebulization apixaban 5 mg tablet (Eliquis) 5 mg PO BID 10/15/21 09/29/24 History levothyroxine 50 mcg tablet 50 mcg PO DAILY 10/15/21 09/29/24 History metoprolol succinate 25 mg 25 mg PO DAILY 10/15/21 09/29/24 History tablet,extended release 24 hr omeprazole 20 mg capsule,delayed 20 mg PO DAILY 10/15/21 09/29/24 History release atorvastatin 20 mg tablet 20 mg PO DAILY 03/19/22 09/29/24 History syringe with needle, safety 3 mL #100 ea 04/13/23 09/29/24 Rx 21 gauge x 1" (Monoject Safety Syringes) allopurinol 100 mg tablet 200 mg PO DAILY 03/16/24 09/29/24 History calcitriol 0.25 mcg capsule 0.25 mcg PO DAILY #30 caps 03/16/24 09/29/24 Rx testosterone cypionate 100 mg/mL 75 mg (0.75 mL) subcut Q7D #10 mL 05/31/24 09/29/24 Rx intramuscular oil folic acid 1 mg tablet 1 mg PO DAILY 09/29/24 09/29/24 History furosemide 20 mg tablet 20 mg PO DAILY PRN Edema 09/29/24 09/29/24 History oxycodone 5 mg tablet 5 mg PO Q6H PRN Moderate Pain 09/29/24 09/29/24 History (Scale Score 5-6) sodium bicarbonate 650 mg tablet 650 mg PO AMHS 09/29/24 09/29/24 History umeclidinium 62.5 mcg-vilanterol 1 inh inhalation DAILY 09/29/24 09/29/24 History 25 mcg/actuation powdr for inhalation prednisone 5 mg tablet 7.5 mg 10/01/24 History Patient History Medical History (Updated 10/03/24 @ 16:09 by Eugene Stokes MD) Acute kidney injury superimposed on chronic kidney disease Gynecomastia Hemorrhoids Diverticulosis H/O acute pancreatitis Paroxysmal A-fib Hyperglobulinemia hx of HLD (hyperlipidemia) Hypertension Herpes simplex infection crusted, involving lips and right nares Multiple bruises Generalized weakness Hypothyroid Peripheral edema Pneumonia positive for rhinovius and aspergillosis Diastolic CHF Diabetes CKD (chronic kidney disease), stage IV Erythema nodosum ANCA positive, on chronic prednisone Surgical History History of cataract surgery History of back surgery H/O lymph node biopsy possible sarcoid History of bronchoscopy H/O left inguinal hernia repair Family History Mother Stroke Myocardial infarction Father Heart disease Social History Smoking Status: Former smoker Smoking End Date: "early "; Hx Alcohol Use: Yes Alcohol type: beer Alcohol Intake Frequency: 2-3 x/Week Hx Substance Use: No (has RX for oxycodone but rarely uses it) Preferred Language: Thai Communication Ability: Effective Be[employer] Worker Required: No Beliefs That Will Affect Care: None Current Living Situation: Spouse Other Information That Helps Us Care for You: No Feels Safe at Home: Yes Safety Concerns: Feels Safe At This Time Assistive Devices: Cane Review of Systems Neg except for what was mentioned in the H&P. Physical Exam Couldn't be performed as the visit was conducted via telemed. Results & Data Vital Signs (Past 12 Hours) Vital Signs Temp Pulse Pulse Resp BP BP Pulse Ox 10/03/24 13:00 36.7 C 72 22 149/82 H 95 10/03/24 09:14 36.5 C 21 L 22 137/78 96 10/03/24 08:59 36.5 C 70 21 141/84 H 94 10/03/24 08:57 10/03/24 08:42 36.6 C 92 H 24 176/102 H 91 10/03/24 07:26 69 O2 Del Method 10/03/24 13:00 Room Air 10/03/24 09:14 10/03/24 08:59 10/03/24 08:57 Room Air 10/03/24 08:42 10/03/24 07:26 Laboratory Results Microbiology: 09/29: 2 sets of blood Cx NTD 09/29: superficial wound Cx growing MSSA and pseudomonas 10/01: 2 sets of blood Cx NTD
--- NOTE | 2024-10-03 15:58 | Operative Report ---
Post Operative Report Pre & Post Diagnosis Operation Date: 10/03/24 07:00 Pre-Op Diagnosis: Open wound of lumbar region Post-Op Diagnosis: Open wound of lumbar region I identified the patient and participated in the time-out.: Yes Procedure Operation Date: 10/03/24 07:00 Actual Procedures #1 irrigation debridement lumbar spine. #2 resection of the T12 and L1 spinous processes. Surgeon Vickey Irene, Spring Tester Yanet Perkins Estimated Blood Loss 10 Findings Consistent with Post-Op Diagnosis Specimens Tissue from the lumbar spine at the L1 level. Indications This is a 78-year-old male who presents with draining wound at the L1 level of his lumbar spine. He is here for I&D. Description of Procedure Patient is met with identified informed consent obtained. Patient was then taken to the operative suite underwent patient placed in prone position the Melvin table atop the Amaury frame. All bony promises well-padded eyes inspected to ensure no external precipice upon them. This point the thoracolumbar spine was prepped and draped no sterile fashion. There is approximately 1 cm drainage site over the L1 spinous process. I sharply resected the skin around this region. Resected the tissue to clean edges and healthy tissue. This did include partial resection of at least two thirds of the L1 spinous process and one third of the T12 spinous process. Tissue was sent for culture. The area was then copiously irrigated. I then placed approximately 5 cc of Stimulan bleeds impregnated with vancomycin gentamicin throughout the resected area. A 15 round LETY drain was then inserted. Incision was then closed with subcutaneous Vicryl and caro for final skin closure. I attest to the content of the Intraoperative Record and any orders documented therein. Any exceptions are noted below.
[2024-10-03] MEDS ORDERED: ONDANSETRON INJ 2 MG/ML 2 ML VIAL IV PRN (16:34)
[2024-10-03] MEDS ORDERED: ePHEDrine sulfate 50 MG/ML AMP IV PRN (16:34)
[2024-10-03] MEDS: fentaNYL citrate PF 100 MCG/2 ML VIAL IV PRN (16:38)
[2024-10-03] MEDS: fentaNYL citrate PF 100 MCG/2 ML VIAL ONE (16:43)
[2024-10-03] MEDS: HYDROmorphone INJ 1 MG/ML SYRINGE IV PRN (16:58)
--- NOTE | 2024-10-03 17:52 | Anesthesiology Progress Note ---
Date of Service October 03, 2024 Anesthesia Post Procedure Vital Signs Vital Signs: Temp Pulse Pulse Pulse Resp BP BP 10/03/24 17:25 78 16 93/44 L 10/03/24 17:15 97.5 F L 63 12 109/51 L 10/03/24 17:05 64 12 98/63 L 10/03/24 16:55 76 12 122/68 10/03/24 16:45 88 20 130/82 10/03/24 16:35 90 18 123/78 10/03/24 16:25 88 16 132/81 10/03/24 16:15 84 16 137/82 10/03/24 16:08 97.7 F 87 16 138/86 10/03/24 13:00 98.1 F 72 22 10/03/24 09:14 97.7 F 21 L 22 137/78 10/03/24 08:59 97.7 F 70 21 141/84 H 10/03/24 08:57 10/03/24 08:42 97.9 F 92 H 24 176/102 H 10/03/24 07:26 69 10/03/24 03:35 98.1 F 75 32 H 10/02/24 23:57 90 10/02/24 22:53 98.8 F 90 22 10/02/24 19:51 10/02/24 19:51 10/02/24 19:41 98.2 F 88 21 10/02/24 18:36 98.2 F 91 H 15 136/88 BP Pulse Ox O2 Del Method O2 Del Method O2 Flow Rate 10/03/24 17:25 98 Nasal Cannula 2 10/03/24 17:15 97 Nasal Cannula 2 10/03/24 17:05 97 Nasal Cannula 2 10/03/24 16:55 92 Room Air 10/03/24 16:45 94 Room Air 10/03/24 16:35 95 Room Air 10/03/24 16:25 100 Oxymask 4 10/03/24 16:15 99 Oxymask 4 10/03/24 16:08 98 Oxymask 6 10/03/24 13:00 149/82 H 95 Room Air 10/03/24 09:14 96 10/03/24 08:59 94 10/03/24 08:57 Room Air 10/03/24 08:42 91 10/03/24 07:26 10/03/24 03:35 123/80 96 Room Air 10/02/24 23:57 10/02/24 22:53 125/66 97 Room Air 10/02/24 19:51 Room Air 10/02/24 19:51 Room Air 10/02/24 19:41 121/70 93 Room Air 10/02/24 18:36 92 Room Air Pain Intensity Bilateral Lower Back: Pain Intensity: 4 Transfer of Care Handoff Completed per policy Notes Mental Status: alert / awake / arousable and participated in evaluation Patient Amnestic to Procedure: Yes Nausea / Vomiting: adequately controlled Pain: adequately controlled Airway Patency, RR, SpO2: stable & adequate BP & HR: stable & adequate Hydration State: stable & adequate Anesthetic Complications: no major complications apparent and Pt Satisfied with anesthetic care
[2024-10-03] MEDS: oxyCODONE HCL IR 5 MG TAB (IMMEDIATE RELEASE) PO PRN (20:02)
[2024-10-04] MEDS: MELATONIN 3 MG TAB PO PRN (01:00)
[2024-10-04 06:35] LABS: Hematocrit (blood only) 28.6 % (42.0-52.0); Hemoglobin 9.1 g/dl (14.0-18.0); Mean Corpuscular Hemoglobin 33.1 pg (25.0-34.0); Mean Corpuscular Hgb Conc 31.8 g/dL (32.0-36.0); Mean Platelet Volume 12.4 fL (9.4-12.4); Platelet Count 85 K/uL (130-400); RDW Coefficient of Variation 15.5 % (11.5-14.5); RDW Standard Deviation 59.6 fL (36.4-46.3); Red Blood Count 2.75 M/uL (4.70-6.10); White Blood Count 7.09 K/ul (4.8-10.8)
[2024-10-04 07:06] LABS: Albumin Level 2.9 gm/dl (3.4-5.0); BUN Creatinine Ratio 18.7 (10-20); Calcium 8.3 mg/dl (8.6-10.3); Creatinine Clr Calc Pharmacy 13.6 ml/min; Phosphorus 7.6 mg/dl (2.5-4.9); Potassium 4.2 mmol/L (3.5-5.1)
[2024-10-04 07:17] LABS: Basophils # (auto) 0.01 K/uL (0.00-0.20); Basophils % (auto) 0.1 %; Eosinophils # (auto) 0.01 K/uL (0.00-0.50); Eosinophils % (auto) 0.1 %; Immature Granulocytes # (auto) 0.11 K/uL (0.01-0.20); Immature Granulocytes % (auto) 1.6 %; Lymphocytes # (auto) 0.68 K/uL (1.20-3.40); Lymphocytes % (auto) 9.6 %; Monocytes # (auto) 0.21 K/uL (0.11-0.59); Neutrophils # (auto) 6.07 K/uL (1.40-6.50); Neutrophils % (auto) 85.6 %
--- NOTE | 2024-10-04 07:24 | Fluoroscopy Report ---
FL lumbar spine 2-3V CLINICAL HISTORY: Irrigation and debridement. COMPARISON STUDY: Lumbar spine MRI September 29, 2024. FLUOROSCOPY TIME: 4 seconds. Junr: 2.37 mGy FLUOROSCOPIC IMAGES: 1 FINDINGS: Fluoroscopy was provided during irrigation and debridement. Lumbar spine fusion hardware is partially imaged. Several chronic lumbar spine compression fractures are present. IMPRESSION: Fluoroscopy provided during irrigation and debridement. ACT 112: Negative or not required by law. Electronically signed by: Rodney Foley M.D. 10/04/2024 7:23 AM
--- NOTE | 2024-10-04 09:57 | Nephrology Progress Note ---
Date of Service October 04, 2024 Assessment & Plan Admission and Anticipated Discharge Date Admission Date: September 29, 2024 Subjective Assessment & Plan (1) LIZZ (acute kidney injury): acute kidney injury on background CKD 4. he has established CKD 4 with GFR around 20 creatinine around 3 as baseline. Because of abnormal ANCA serology even had renal biopsy which showed ATN and he required dialysis briefly but since then has recovered partially. Current creatinine is higher than his baseline. etiology of acute kidney injury is most likely ATN given the low blood pressure he had at the time of admission in the setting of osteomyelitis. his urinary sediment was also classic for ATN with active urine sediment and presence of granular cast as well as hyaline cast. at this point creatinine seems to have peaked. Creat today is less than yesterday although still very abnoral at 4.18. However no dialysis needed today but cannot rule out for sure. Will assess Da ce. Does not need renal biopsy--recent renal biopsy showed ATN At this point he is making decent amount of urine--1200 ml yesterday. He does not need IV hydration as he already has some evidence of CHF. Given his underlying cardiopulmonary issues as well as CKD 4 he is at high risk of developing pulmonary edema. electrolytes are acceptable today. continue home dose of Sodium bicarb If he develops shortness of breath I would have no problem in giving IV Lasix. Avoid nephrotoxic agents including NSAIDs contrast agent and nephrotoxic antibiotics current antibiotic of daptomycin and IV Zosyn is reasonable from renal standpoint and can be continued. strictly monitor input output with Vitale catheter daily renal panel and CBC Phos is high at 7.6 so will add Calacetate 667 tid with meal. hgb today 9.1 today POD#1. . keep > 8 (2) CKD (chronic kidney disease), stage IV: he has established CKD 4 with GFR around 20 creatinine around 3 as baseline. Because of abnormal ANCA serology even had renal biopsy which showed ATN and he required dialysis briefly but since then has recovered partially. Current creatinine is higher than his baseline. (3) Osteomyelitis: seen on MRI and he is getting Zosyn. reviewed ID note from 10/03 and need of Abx for long time > 6 weeks. Given this important to monitor renal function at least once a week while on ABX S---- patient has back pain. he went to OR yesterday and had I and D + more spine Surgery. tolerated well. NO major issues with Vital signs after surgery. Denies nausea vomiting chest pain shortness of breath orthopnea or other symptoms. He is making urine and has a Vitale catheter--1200 ml . unless stated otherwise 12 systems reviewed and negative. physical examination elderly white male who appears to be chronically ill. Awake alert oriented x3 and was able to give detailed account of his medical problems mucous membrane is moist neck is supple no JVD chest bilateral diminished breath sounds sluggish occ crackles CVS S1 and S2 regular soft systolic murmur heard abdomen is soft nontender extremities shows signs of chronic venous insufficiency with chronic redness trace to 1+ edema Results & Data Vital Signs (Past 12 Hours) Vital Signs Temp Pulse Pulse Resp BP Pulse Ox O2 Del Method 10/04/24 07:24 36.3 C L 45 L 19 137/67 95 Room Air 10/04/24 06:57 45 L 10/04/24 03:39 36.4 C L 65 18 143/83 H 92 Nasal Cannula 10/03/24 23:00 36.4 C L 64 18 134/85 94 Room Air O2 Flow Rate 10/04/24 07:24 10/04/24 06:57 10/04/24 03:39 2 10/03/24 23:00
--- NOTE | 2024-10-04 12:05 | Orthopedic Progress Note ---
Date of Service October 04, 2024 Assessment & Plan (1) Vertebral osteomyelitis: Plan: At this time I encouraged the patient to get out of bed to a chair and ambulate as tolerated. He does have a disc herniation at L5-S1 with canal compromise. He is however not a candidate for invasive spine surgery beyond his most recent debridement. Continue with therapy as tolerated. Monitor his LETY output. Admission and Anticipated Discharge Date Admission Date: September 29, 2024 Subjective Patient's back pain is controlled. Denies any leg pain. Physical Exam Physical Exam: Patient is currently in bed. Family is at the bedside. He is distracted testing extremities. Drain is functioning. Results & Data Vital Signs (Past 12 Hours) Vital Signs Temp Pulse Pulse Resp BP Pulse Ox O2 Del Method 10/04/24 07:24 36.3 C L 45 L 19 137/67 95 Room Air 10/04/24 06:57 45 L 10/04/24 03:39 36.4 C L 65 18 143/83 H 92 Nasal Cannula O2 Flow Rate 10/04/24 07:24 10/04/24 06:57 10/04/24 03:39 2
[2024-10-04] MEDS: CALCIUM ACETATE 667 MG CAP/TAB PO SCH (12:39)
[2024-10-04 16:32] LABS: Plt Ab, Heparin Induced Positive (Negative)
--- NOTE | 2024-10-04 16:39 | Hospitalist Progress Note ---
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 Patient is referred for admission due to MRI lumbar spine findings as outpatient.. Vertebral osteomyelitis Sinus wound in Lumbar region Hx of Lumbar spine surgery Possible Severe Sepsis Adrenal Insufficiency --Lumbar Spine MRI: IMPRESSION1. L2-L5 instrumented fusion and L2-L4 laminectomies.2. Severe L5-S1 distal junctional thecal sac stenosis.3. Dorsal barrientos bcutaneous fat stranding and swelling with a shallow sinus tract. Artifact limiting assessment of sinus tract depth with accuracy. L1 spinous process signal abnormality with new erosion involving the tip of L1 spinous process. The differential includes reactive osteitis and/or osteomyelitis. --S/P irrigation debridement lumbar spine, resection of T12 and L1 spinous process by Dr. Irene on 10/03/2024. --ESR slightly elevated to 21, CRP slightly elevated to 0.63. -- Blood cultures: Negative to date -- Superficial wound culture growing Staph aureus, Pseudomonas --Follow-up intraoperative wound cultures -- Appreciate orthopedics, ID input --Transient need for pressors requiring ICU transfer, pressors discontinued -- Continue IV Zosyn for now --Plan to discuss with infectious disease once cultures finalized for final recommendations --Wean off of IV Solu-Medrol as able to home dose of prednisone --PT OT evaluation as able LIZZ on CKD IV Hyperkalemia Baseline Cr2.7-3 Because of ANCA serology patient underwent renal biopsy suggestive of ATN Known dialysis needed at this time per nephrology Appreciate nephrology input Monitor renal function closely Avoid nephrotoxic agents as able Monitor renal function closely Paroxysmal atrial fibrillation Continue metoprolol Eliquis held currently for surgery Plan to resume anticoagulation once cleared by orthopedic surgery Acute on Chronic HFpEF Received IV Lasix Resume home Lasix as needed Monitor volume status Chronic thrombocytopenia Monitor platelet count Other chronic conditions HTN/HLD COPD: chronic, stable, continue inhaler Chronic gout: continue allopurinol SCC of left neck cutaneous tissue s/p dissection requiring reconstruction and flap procedure in August in [place] currently to undergo adjuvant radiation at [facility] DVT Px: Eliquis, currently on hold for possible surgery in next couple of days. Resume anticoagulation as able CODE STATUS Full code Disposition PT OT prior to discharge Admission and Anticipated Discharge Date Admission Date: September 29, 2024 Subjective Patient is seen and examined at bedside Back pain at surgical site is controlled Offers no other complaints today Renal function slowly improving Denies any chest pain, dyspnea, nausea, vomiting, abdominal pain Discussed with patient's family at bedside in detail Review of Systems Review of Systems: All systems reviewed & are unremarkable except as noted in Subjective Physical Exam Physical Exam: Physical Exam: Vitals signs as noted above General Appearance:Moderately built and nourished, no apparent distress Head: normocephalic, Atraumatic, +Left neck surgical site Eyes: normal inspection, EOMI Neck: supple, Trachea midline Respiratory/Chest: Normal breath sounds, CTA, No accessory muscle use Cardiovascular: S1, S2, No murmur Abdomen/GI:Soft, Non tender, Bowel sounds present Back: surgical site in dressing Extremities/Musculoskeletal:normal inspection, no edema Neurologic/Psych:AAOX3, grossly no focal neurological deficits Skin: normal color, warm Results & Data Results & Data Vital Signs (Past 12 Hours) Vital Signs Temp Pulse Pulse Resp BP Pulse Ox O2 Del Method 10/04/24 15:47 94 H 10/04/24 11:40 36.4 C L 70 18 121/68 94 Room Air 10/04/24 07:24 36.3 C L 45 L 19 137/67 95 Room Air 10/04/24 06:57 45 L Laboratory Results Short CBC 10/04/24 Range/Units 05:58 WBC 7.09 (4.8-10.8) K/ul Hgb 9.1 L (14.0-18.0) g/dl Hct 28.6 L (42.0-52.0) % Plt Count 85 L (130-400) K/uL BMP 10/04/24 05:58 Sodium 140 Potassium 4.2 Chloride 104 Carbon Dioxide 23 BUN 78 H Creatinine 4.18 H D Glucose 148 H Calcium 8.3 L Liver Function 10/04/24 Range/Units 05:58 Albumin 2.9 L (3.4-5.0) gm/dl
[2024-10-04] MEDS: HYDROCORTISONE SOD 50 MG in SYRINGE 0 ML IV SCH (20:58)
[2024-10-05 05:21] LABS: Hematocrit (blood only) 27.6 % (42.0-52.0); Hemoglobin 8.8 g/dl (14.0-18.0); Mean Corpuscular Hgb Conc 31.9 g/dL (32.0-36.0); Mean Corpuscular Volume 103.4 fL (80.0-100.0); Mean Platelet Volume 12.6 fL (9.4-12.4); Platelet Count 86 K/uL (130-400); RDW Coefficient of Variation 15.4 % (11.5-14.5); RDW Standard Deviation 58.5 fL (36.4-46.3); Red Blood Count 2.67 M/uL (4.70-6.10); White Blood Count 8.25 K/ul (4.8-10.8)
[2024-10-05 06:04] LABS: Albumin Level 2.8 gm/dl (3.4-5.0); BUN Creatinine Ratio 20.7 (10-20); Calcium 8.3 mg/dl (8.6-10.3); Creatinine Clr Calc Pharmacy 13.2 ml/min; Phosphorus 5.8 mg/dl (2.5-4.9); Potassium 3.3 mmol/L (3.5-5.1)
[2024-10-05] MEDS: POTASSIUM CHLORIDE CRTAB 20 MEQ TABCR PO ONE (09:28)
--- NOTE | 2024-10-05 10:24 | Orthopedic Progress Note ---
Date of Service October 05, 2024 Assessment & Plan (1) Infection associated with internal fixation device of spine: Plan: At this time and continue to encourage him to transfer to the chair and ambulate as tolerated. I will maintain the LETY drain at least another day. Admission and Anticipated Discharge Date Admission Date: September 29, 2024 Subjective Patient is comfortable this morning. He tolerated physical therapy yesterday. Physical Exam Physical Exam: On exam is good strength testing lower extremities. Sensory is intact. Results & Data Vital Signs (Past 12 Hours) Vital Signs Temp Pulse Pulse Resp BP Pulse Ox O2 Del Method 10/05/24 08:12 36.3 C L 61 18 129/78 96 Room Air 10/05/24 07:27 61 10/05/24 02:49 36.4 C L 62 18 133/79 95 Room Air 10/05/24 00:00 52 L 10/04/24 23:05 36.3 C L 53 L 18 122/61 93 Room Air
--- NOTE | 2024-10-05 13:12 | Nephrology Progress Note ---
Date of Service October 05, 2024 Assessment & Plan (1) LIZZ (acute kidney injury): Plan: acute kidney injury on background CKD 4. he has established CKD 4 with GFR around 20 creatinine around 3 as baseline. Because of abnormal ANCA serology even had renal biopsy which showed ATN and he required dialysis briefly but since then has recovered partially. Current creatinine is higher than his baseline. etiology of acute kidney injury is most likely ATN given the low blood pressure he had at the time of admission in the setting of osteomyelitis. his urinary sediment was also classic for ATN with active urine sediment and presence of granular cast as well as hyaline cast. creatinine down to 4.3 today. no signs of volume overload. He has mild hypokalemia. Avoid nephrotoxic agents including NSAIDs contrast agent and nephrotoxic antibiotics current antibiotic of daptomycin and IV Zosyn is reasonable from renal standpoint and can be continued. strictly monitor input output with Vitale catheter daily renal panel and CBC (2) CKD (chronic kidney disease), stage IV: Plan: he has established CKD 4 with GFR around 20 creatinine around 3 as baseline. Because of abnormal ANCA serology even had renal biopsy which showed ATN and he required dialysis briefly but since then has recovered partially. Current creatinine is higher than his baseline (3) Osteomyelitis: Plan: seen on MRI and he is getting daptomycin and Zosyn. Continue same Plan total time spent 52 minutes Admission and Anticipated Discharge Date Admission Date: September 29, 2024 Subjective seen for acute kidney injury on CKD. He feels better today. Has some back pain. He is making urine Review of Systems 2 Review of Systems: All other systems were reviewed and negative except as noted in HPI Physical Exam 2 Physical Exam: General exam: Appears comfortable, no acute distress HEENT: Pupils are equal and reactive to light Neck: No JVD, neck is supple trachea is midline Respiratory system: Clear breath sounds bilaterally. Gastrointestinal: Abdomen is soft, non distended, non tender, bowel sounds are present CVS: Regular rate and rhythm. No murmurs, rubs or gallops Musculoskeletal: No joint or muscle tenderness Extremities: Non tender, no edema, peripheral pulses are present Neuro: Oriented, no tremors, no focal neurological deficits Skin: No rashes Results & Data Vital Signs (Past 12 Hours) Vital Signs Temp Pulse Pulse Resp BP Pulse Ox O2 Del Method 10/05/24 11:00 36.5 C 56 L 18 131/70 97 Room Air 10/05/24 08:12 36.3 C L 61 18 129/78 96 Room Air 10/05/24 07:27 61 10/05/24 02:49 36.4 C L 62 18 133/79 95 Room Air Laboratory Results 10/05/24 04:07 10/05/24 04:07 WBC 8.25 RBC 2.67 L MCV 103.4 H MCH 33.0 MCHC 31.9 L RDW Std Deviation 58.5 H RDW Coeff of Rk 15.4 H Plt Count 86 L MPV 12.6 H Phosphorus 5.8 H Albumin 2.8 L (3) Osteomyelitis Osteomyelitis location: unspecified site Osteomyelitis type: unspecified type Qualified Code(s): M86.9 - Osteomyelitis, unspecified
--- NOTE | 2024-10-05 14:08 | Hospitalist Progress Note ---
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 Patient is referred for admission due to MRI lumbar spine findings as outpatient.. Vertebral osteomyelitis Sinus wound in Lumbar region Hx of Lumbar spine surgery Possible Severe Sepsis Adrenal Insufficiency --Lumbar Spine MRI: L2-L5 instrumented fusion and L2-L4 laminectomies.2. Severe L5-S1 distal junctional thecal sac stenosis.3. Dorsal subcutaneous fat stranding and swelling with a shallow sinus tract. Artifact limiting assessment of sinus tract depth with accuracy. L1 spinous process signal abnormality with new erosion involving the tip of L1 spinous process. The differential includes reactive osteitis and/or osteomyelitis. --S/P irrigation debridement lumbar spine, resection of T12 and L1 spinous process by Dr. Irene on 10/03/2024. --ESR slightly elevated to 21, CRP slightly elevated to 0.63. -- Blood cultures: Negative to date -- Superficial wound culture growing Staph aureus, Pseudomonas --Follow-up intraoperative wound cultures--pending -- Appreciate orthopedics, ID input --Transient need for pressors requiring ICU transfer, pressors discontinued -- Continue IV Zosyn for now --Plan to discuss with infectious disease once cultures finalized for final bryan mmendations -- Continue PT OT -- Decrease IV Solu-Medrol to 50 mg twice a day --Monitor drain output LIZZ on CKD IV Hyperkalemia Baseline Cr2.7-3 Because of ANCA serology patient underwent renal biopsy suggestive of ATN Known dialysis needed at this time per nephrology Appreciate nephrology input Monitor renal function closely Avoid nephrotoxic agents as able Monitor renal function closely Cr 4.3 today Paroxysmal atrial fibrillation Continue metoprolol Eliquis held currently for surgery Plan to resume anticoagulation once cleared by orthopedic surgery Acute on Chronic HFpEF Received IV Lasix Resume home Lasix as needed Monitor volume status Chronic thrombocytopenia Monitor platelet count Other chronic conditions HTN/HLD COPD: chronic, stable, continue inhaler Chronic gout: continue allopurinol SCC of left neck cutaneous tissue s/p dissection requiring reconstruction and flap procedure in August in [place] currently to undergo adjuvant radiation at [facility] DVT Px: Tello, currently on hold for possible surgery in next couple of days. Resume anticoagulation as able CODE STATUS Full code Disposition PT OT prior to discharge Admission and Anticipated Discharge Date Admission Date: September 29, 2024 Subjective Patient is seen and examined at bedside Sitting in chair during my encounter Back pain is controlled No new complaints today Denies any chest pain, dyspnea, nausea, vomiting, abdominal pain Review of Systems Review of Systems: All systems reviewed & are unremarkable except as noted in Subjective Physical Exam Physical Exam: Physical Exam: Vitals signs as noted above General Appearance:Moderately built and nourished, no apparent distress Head: normocephalic, Atraumatic, +Left neck surgical site Eyes: normal inspection, EOMI Neck: supple, Trachea midline Respiratory/Chest: Normal breath sounds, CTA, No accessory muscle use Cardiovascular: S1, S2, No murmur Abdomen/GI:Soft, Non tender, Bowel sounds present Back: surgical site in dressing Extremities/Musculoskeletal:normal inspection, no edema Neurologic/Psych:AAOX3, grossly no focal neurological deficits Skin: normal color, warm Results & Data Results & Data Vital Signs (Past 12 Hours) Vital Signs Temp Pulse Pulse Resp BP Pulse Ox O2 Del Method 10/05/24 14:02 62 10/05/24 11:00 36.5 C 56 L 18 131/70 97 Room Air 10/05/24 08:12 36.3 C L 61 18 129/78 96 Room Air 10/05/24 07:27 61 10/05/24 02:49 36.4 C L 62 18 133/79 95 Room Air Laboratory Results Short CBC 10/05/24 Range/Units 04:07 WBC 8.25 (4.8-10.8) K/ul Hgb 8.8 L (14.0-18.0) g/dl Hct 27.6 L (42.0-52.0) % Plt Count 86 L (130-400) K/uL BMP 10/05/24 04:07 Sodium 136 Potassium 3.3 L D Chloride 101 Carbon Dioxide 23 BUN 89 H Creatinine 4.30 H Glucose 201 H Calcium 8.3 L Liver Function 10/05/24 Range/Units 04:07 Albumin 2.8 L (3.4-5.0) gm/dl
[2024-10-06 04:26] LABS: Hematocrit (blood only) 29.4 % (42.0-52.0); Hemoglobin 9.4 g/dl (14.0-18.0); Mean Corpuscular Hemoglobin 33.1 pg (25.0-34.0); Mean Corpuscular Volume 103.5 fL (80.0-100.0); Mean Platelet Volume 12.7 fL (9.4-12.4); Platelet Count 102 K/uL (130-400); RDW Coefficient of Variation 15.2 % (11.5-14.5); RDW Standard Deviation 57.8 fL (36.4-46.3); Red Blood Count 2.84 M/uL (4.70-6.10); White Blood Count 8.77 K/ul (4.8-10.8)
[2024-10-06 04:45] LABS: Albumin Level 2.8 gm/dl (3.4-5.0); BUN Creatinine Ratio 21.1 (10-20); Calcium 8.2 mg/dl (8.6-10.3); Creatinine Clr Calc Pharmacy 13.8 ml/min; Magnesium 1.9 mg/dl (1.7-2.4); Phosphorus 4.6 mg/dl (2.5-4.9); Potassium 3.4 mmol/L (3.5-5.1)
--- NOTE | 2024-10-06 08:01 | Orthopedic Progress Note ---
Date of Service October 06, 2024 Assessment & Plan (1) Draining cutaneous sinus tract: Plan: At this point patient is progressing well. He is tolerating physical therapy. LETY drain decreasing. I plan to remove the drain tomorrow. He would be cleared for discharge home from an orthopedic standpoint. I am not convinced his orthopedic hardware is in fact infected. Cultures remain negative from the spinous debridement. Admission and Anticipated Discharge Date Admission Date: September 29, 2024 Subjective Patient's back pain is well-controlled. He is tolerating physical therapy. Physical Exam Physical Exam: Patient is currently in bed. Appears comfortable. Good strength testing. Results & Data Vital Signs (Past 12 Hours) Vital Signs Temp Pulse Pulse Resp BP Pulse Ox O2 Del Method 10/06/24 07:27 36.4 C L 56 L 17 152/76 H 96 Room Air 10/06/24 02:20 36.5 C 58 L 18 138/69 93 Room Air 10/05/24 23:23 36.2 C L 57 L 18 151/73 H 97 Room Air 10/05/24 21:55 57 L 10/05/24 20:02 36.4 C L 63 18 130/55 L 95 Room Air
[2024-10-06] MEDS: METOPROLOL SUCC 25MG EXT REL TAB PO SCH (08:59)
[2024-10-06] MEDS: POTASSIUM CHLORIDE CRTAB 20 MEQ TABCR PO ONE (09:26)
--- NOTE | 2024-10-06 14:25 | Nephrology Progress Note ---
Date of Service October 06, 2024 Assessment & Plan (1) LIZZ (acute kidney injury): Plan: acute kidney injury on background CKD 4. he has established CKD 4 with GFR around 20 creatinine around 3 as baseline. Because of abnormal ANCA serology even had renal biopsy which showed ATN and he required dialysis briefly but since then has recovered partially. Current creatinine is higher than his baseline. etiology of acute kidney injury is most likely ATN given the low blood pressure he had at the time of admission in the setting of osteomyelitis. his urinary sediment was also classic for ATN with active urine sediment and presence of granular cast as well as hyaline cast. creatinine down to 4.1 today. no signs of volume overload. He has mild hypokalemia of 3.4. Avoid nephrotoxic agents including NSAIDs contrast agent and nephrotoxic antibiotics current antibiotic of daptomycin and IV Zosyn is reasonable from renal standpoint and can be continued. strictly monitor input output with Vitale catheter daily renal panel and CBC (2) CKD (chronic kidney disease), stage IV: Plan: he has established CKD 4 with GFR around 20 creatinine around 3 as baseline. Because of abnormal ANCA serology even had renal biopsy which showed ATN and he required dialysis briefly but since then has recovered partially. Current creatinine is higher than his baseline (3) Osteomyelitis: Plan: seen on MRI and he is getting daptomycin and Zosyn. Continue same Admission and Anticipated Discharge Date Admission Date: September 29, 2024 Subjective seen for acute kidney injury on CKD. He feels better today. No shortness of breath. He is making urine and creatinine downtrending to 4.1 Review of Systems 2 Review of Systems: All other systems were reviewed and negative except as noted in HPI Physical Exam 2 Physical Exam: General exam: Appears comfortable, no acute distress HEENT: Pupils are equal and reactive to light Neck: No JVD, neck is supple trachea is midline Respiratory system: Clear breath sounds bilaterally. Gastrointestinal: Abdomen is soft, non distended, non tender, bowel sounds are present CVS: Regular rate and rhythm. No murmurs, rubs or gallops Musculoskeletal: No joint or muscle tenderness Extremities: Non tender, no edema, peripheral pulses are present Neuro: Oriented, no tremors, no focal neurological deficits Skin: No rashes Results & Data Vital Signs (Past 12 Hours) Vital Signs Temp Pulse Pulse Resp BP Pulse Ox O2 Del Method 10/06/24 10:53 36.3 C L 66 18 142/75 H 97 Room Air 10/06/24 08:01 53 L 10/06/24 07:27 36.4 C L 56 L 17 152/76 H 96 Room Air Laboratory Results 10/06/24 03:40 10/06/24 03:40 WBC 8.77 RBC 2.84 L MCV 103.5 H MCH 33.1 MCHC 32.0 RDW Std Deviation 57.8 H RDW Coeff of Rk 15.2 H Plt Count 102 L MPV 12.7 H Phosphorus 4.6 D Albumin 2.8 L (3) Osteomyelitis Osteomyelitis location: unspecified site Osteomyelitis type: unspecified type Qualified Code(s): M86.9 - Osteomyelitis, unspecified
--- NOTE | 2024-10-06 16:26 | Hospitalist Progress Note ---
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 Patient is referred for admission due to MRI lumbar spine findings as outpatient.. Vertebral osteomyelitis Sinus wound in Lumbar region Hx of Lumbar spine surgery Possible Severe Sepsis Adrenal Insufficiency --Lumbar Spine MRI: L2-L5 instrumented fusion and L2-L4 laminectomies.2. Severe L5-S1 distal junctional thecal sac stenosis.3. Dorsal subcutaneous fat stranding and swelling with a shallow sinus tract. Artifact limiting assessment of sinus tract depth with accuracy. L1 spinous process signal abnormality with new erosion involving the tip of L1 spinous process. The differential includes reactive osteitis and/or osteomyelitis. --S/P irrigation debridement lumbar spine, resection of T12 and L1 spinous process by Dr. Irene on 10/03/2024. --ESR slightly elevated to 21, CRP slightly elevated to 0.63. -- Blood cultures: Negative to date -- Superficial wound culture growing Staph aureus, Pseudomonas --Follow-up intraoperative wound cultures--pending -- Appreciate orthopedics, ID input --Transient need for pressors requiring ICU transfer, pressors discontinued -- Continue IV Zosyn for now --Plan to discuss with infectious disease once cultures finalized for final bryan mmendations -- Continue PT OT -- Decrease IV Solu-Medrol to 50 mg twice a day --LETY drain output decreasing -- Intraoperative wound cultures so far negative Plan to titrate down steroids as able LIZZ on CKD IV Hyperkalemia Baseline Cr2.7-3 Because of ANCA serology patient underwent renal biopsy suggestive of ATN Known dialysis needed at this time per nephrology Appreciate nephrology input Monitor renal function closely Avoid nephrotoxic agents as able Monitor renal function closely Cr 4.1 today Paroxysmal atrial fibrillation Continue metoprolol Eliquis held currently for surgery Plan to resume anticoagulation once cleared by orthopedic surgery Acute on Chronic HFpEF Received IV Lasix Resume home Lasix as needed Monitor volume status Chronic thrombocytopenia Monitor platelet count Other chronic conditions HTN/HLD COPD: chronic, stable, continue inhaler Chronic gout: continue allopurinol SCC of left neck cutaneous tissue s/p dissection requiring reconstruction and flap procedure in August in [place] currently to undergo adjuvant radiation at [facility] DVT Px: Eliquis, currently on hold for possible surgery in next couple of days. Resume anticoagulation as able CODE STATUS Full code Disposition PT OT prior to discharge Admission and Anticipated Discharge Date Admission Date: September 29, 2024 Subjective Patient is seen and examined at bedside Minimal pain with movement Otherwise no new complaints Discussed with patient's family at bedside Renal function stable Denies any chest pain, dyspnea, nausea, vomiting, abdominal pain Intraoperative wound cultures negative so far Review of Systems Review of Systems: All systems reviewed & are unremarkable except as noted in Subjective Physical Exam Physical Exam: Physical Exam: Vitals signs as noted above General Appearance:Moderately built and nourished, no apparent distress Head: normocephalic, Atraumatic, +Left neck surgical site Eyes: normal inspection, EOMI Neck: supple, Trachea midline Respiratory/Chest: Normal breath sounds, CTA, No accessory muscle use Cardiovascular: S1, S2, No murmur Abdomen/GI:Soft, Non tender, Bowel sounds present Back: surgical site in dressing Extremities/Musculoskeletal:normal inspection, no edema Neurologic/Psych:AAOX3, grossly no focal neurological deficits Skin: normal color, warm Results & Data Results & Data Vital Signs (Past 12 Hours) Vital Signs Temp Pulse Pulse Resp BP Pulse Ox O2 Del Method 10/06/24 15:13 36.4 C L 104 H 17 135/73 97 Room Air 10/06/24 14:34 65 10/06/24 10:53 36.3 C L 66 18 142/75 H 97 Room Air 10/06/24 08:01 53 L 10/06/24 07:27 36.4 C L 56 L 17 152/76 H 96 Room Air Laboratory Results Short CBC 10/06/24 Range/Units 03:40 WBC 8.77 (4.8-10.8) K/ul Hgb 9.4 L (14.0-18.0) g/dl Hct 29.4 L (42.0-52.0) % Plt Count 102 L (130-400) K/uL BMP 10/06/24 03:40 Sodium 140 Potassium 3.4 L Chloride 107 Carbon Dioxide 23 BUN 87 H Creatinine 4.13 H Glucose 176 H Calcium 8.2 L Liver Function 10/06/24 Range/Units 03:40 Albumin 2.8 L (3.4-5.0) gm/dl
[2024-10-07 05:08] LABS: BUN Creatinine Ratio 21.6 (10-20); Calcium 8.3 mg/dl (8.6-10.3); Creatinine Clr Calc Pharmacy 14.4 ml/min; Potassium 3.3 mmol/L (3.5-5.1)
--- NOTE | 2024-10-07 07:10 | Electrocardiogram Report ---
Test Reason : Blood Pressure : */* mmHG Vent. Rate : 73 BPM Atrial Rate : 73 BPM P-R Int : 202 ms QRS Dur : 96 ms QT Int : 420 ms P-R-T Axes : 42 -15 17 degrees QTcB Int : 462 ms Normal sinus rhythm Normal ECG When compared with ECG of 02-Oct-2024 06:10, QRS duration has increased Confirmed by Konstantin Gorman ([id number]) on 10/07/2024 7:09:40 AM Referred By: REFERRED SELF Confirmed By: Konstantin Gorman
[2024-10-07] MEDS: POTASSIUM CHLORIDE CRTAB 20 MEQ TABCR PO ONE (10:02)
--- NOTE | 2024-10-07 11:09 | Orthopedic Progress Note ---
Date of Service October 07, 2024 Assessment & Plan (1) Vertebral osteomyelitis: Plan: At this time we will maintain the LETY drain at least until tomorrow. I will continue to encourage ambulation as tolerated. I do believe his infection is localized to the L1 spinous process. I do not believe that his hardware is in fact infected. Hopefully he could resolve this with a short course of antibiotics. Will verify with infectious disease. Admission and Anticipated Discharge Date Admission Date: September 29, 2024 Subjective Patient is quite comfortable at this time. Denies any significant back pain. Tolerating therapy. Physical Exam Physical Exam: On exam patient is in the chair at the bedside. Discussed when to testing lower summaries. Drain is functioning. Results & Data Vital Signs (Past 12 Hours) Vital Signs Temp Pulse Pulse Resp BP Pulse Ox O2 Del Method 10/07/24 08:35 79 10/07/24 07:47 59 L 10/07/24 07:18 36.4 C L 58 L 18 159/78 H 96 Room Air 10/07/24 02:34 36.4 C L 61 18 143/70 H 96 Room Air
--- NOTE | 2024-10-07 13:03 | Nephrology Progress Note ---
Date of Service October 07, 2024 Assessment & Plan (1) LIZZ (acute kidney injury): Plan: acute kidney injury on background CKD 4. he has established CKD 4 with GFR around 20 creatinine around 3 as baseline. Because of abnormal ANCA serology even had renal biopsy which showed ATN and he required dialysis briefly but since then has recovered partially. Current creatinine is higher than his baseline. etiology of acute kidney injury is most likely ATN given the low blood pressure he had at the time of admission in the setting of osteomyelitis. his urinary sediment was also classic for ATN with active urine sediment and presence of granular cast as well as hyaline cast. creatinine down to 3.94 today. no signs of volume overload. He has mild hypokalemia of 3.3. Avoid nephrotoxic agents including NSAIDs contrast agent and nephrotoxic antibiotics current antibiotic of daptomycin and IV Zosyn is reasonable from renal standpoint and can be continued. kcl 10meq daily till k is 4 daily renal panel and CBC (2) CKD (chronic kidney disease), stage IV: Plan: he has established CKD 4 with GFR around 20 creatinine around 3 as baseline. Because of abnormal ANCA serology even had renal biopsy which showed ATN and he required dialysis briefly but since then has recovered partially. Current creatinine is higher than his baseline (3) Osteomyelitis: Plan: seen on MRI and he is getting daptomycin and Zosyn. Continue same Admission and Anticipated Discharge Date Admission Date: September 29, 2024 Subjective seen for acute kidney injury on CKD. He feels better today. No shortness of breath or leg swelling. Still some back pain Review of Systems 2 Review of Systems: All other systems were reviewed and negative except as noted in HPI Physical Exam 2 Physical Exam: General exam: Appears comfortable, no acute distress HEENT: Pupils are equal and reactive to light Neck: No JVD, neck is supple trachea is midline Respiratory system: Clear breath sounds bilaterally. Gastrointestinal: Abdomen is soft, non distended, non tender, bowel sounds are present CVS: Regular rate and rhythm. No murmurs, rubs or gallops Musculoskeletal: No joint or muscle tenderness Extremities: Non tender, no edema, peripheral pulses are present Neuro: Oriented, no tremors, no focal neurological deficits Skin: No rashes Results & Data Vital Signs (Past 12 Hours) Vital Signs Temp Pulse Pulse Resp BP Pulse Ox O2 Del Method 10/07/24 12:34 36.6 C 81 18 141/81 H 95 Room Air 11/30/24 08:35 79 10/07/24 07:47 59 L 10/07/24 07:18 36.4 C L 58 L 18 159/78 H 96 Room Air 10/07/24 02:34 36.4 C L 61 18 143/70 H 96 Room Air Laboratory Results 10/07/24 04:09 (3) Osteomyelitis Osteomyelitis location: unspecified site Osteomyelitis type: unspecified type Qualified Code(s): M86.9 - Osteomyelitis, unspecified
[2024-10-07] MEDS: POTASSIUM CHLORIDE 10 MEQ TABCR PO SCH (13:37)
--- NOTE | 2024-10-07 15:17 | Hospitalist Progress Note ---
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 Patient is referred for admission due to MRI lumbar spine findings as outpatient.. Vertebral osteomyelitis Sinus wound in Lumbar region Hx of Lumbar spine surgery Possible Severe Sepsis Adrenal Insufficiency --Lumbar Spine MRI: L2-L5 instrumented fusion and L2-L4 laminectomies.2. Severe L5-S1 distal junctional thecal sac stenosis.3. Dorsal subcutaneous fat stranding and swelling with a shallow sinus tract. Artifact limiting assessment of sinus tract depth with accuracy. L1 spinous process signal abnormality with new erosion involving the tip of L1 spinous process. The differential includes reactive osteitis and/or osteomyelitis. --S/P irrigation debridement lumbar spine, resection of T12 and L1 spinous process by Dr. Irene on 10/03/2024. --ESR slightly elevated to 21, CRP slightly elevated to 0.63. -- Blood cultures: Negative to date -- Superficial wound culture growing Staph aureus, Pseudomonas --Follow-up intraoperative wound cultures--negative to date -- Appreciate orthopedics, ID input --Transient need for pressors requiring ICU transfer, pressors discontinued --Orthopedics believes hardware less likely infected. Will prefer IV antibiotics for 6 weeks -- Continue IV Zosyn for now -- Discussed with infectious disease once cultures finalized for final recommendations on antibiotics -- Continue PT OT -- Decrease IV Solu-Medrol to 50 mg daily LIZZ on CKD IV Hyperkalemia--resolved Baseline Cr2.7-3 Because of ANCA serology patient underwent renal biopsy suggestive of ATN Known dialysis needed at this time per nephrology Appreciate nephrology input Monitor renal function closely Avoid nephrotoxic agents as able Monitor renal function closely Cr 3.9 today Paroxysmal atrial fibrillation Continue metoprolol Eliquis held currently for surgery Plan to resume anticoagulation once cleared by orthopedic surgery Acute on Chronic HFpEF Received IV Lasix Resume home Lasix as needed Monitor volume status Chronic thrombocytopenia Monitor platelet count Other chronic conditions HTN/HLD COPD: chronic, stable, continue inhaler Chronic gout: continue allopurinol SCC of left neck cutaneous tissue s/p dissection requiring reconstruction and flap procedure in August in [place] currently to undergo adjuvant radiation at [facility] DVT Px: Eliquis, currently on hold for possible surgery in next couple of days. Resume anticoagulation as able CODE STATUS Full code Disposition PT OT prior to discharge Admission and Anticipated Discharge Date Admission Date: September 29, 2024 Subjective Patient is seen and examined at bedside Sitting in chair comfortably during my encounter Offers no new complaints Back pain at surgical site is well-controlled Discussed with orthopedics today Denies any chest pain, dyspnea, nausea, vomiting, abdominal pain Review of Systems Review of Systems: All systems reviewed & are unremarkable except as noted in Subjective Physical Exam Physical Exam: Physical Exam: Vitals signs as noted above General Appearance:Moderately built and nourished, no apparent distress Head: normocephalic, Atraumatic, +Left neck surgical site Eyes: normal inspection, EOMI Neck: supple, Trachea midline Respiratory/Chest: Normal breath sounds, CTA, No accessory muscle use Cardiovascular: S1, S2, No murmur Abdomen/GI:Soft, Non tender, Bowel sounds present Back: surgical site in dressing Extremities/Musculoskeletal:normal inspection, no edema Neurologic/Psych:AAOX3, grossly no focal neurological deficits Skin: normal color, warm Results & Data Results & Data Vital Signs (Past 12 Hours) Vital Signs Temp Pulse Pulse Resp BP Pulse Ox O2 Del Method 10/07/24 12:34 36.6 C 81 18 141/81 H 95 Room Air 10/07/24 08:35 79 10/07/24 07:47 59 L 10/07/24 07:18 36.4 C L 58 L 18 159/78 H 96 Room Air Laboratory Results [facility] 10/07/24 04:09 Sodium 142 Potassium 3.3 L Chloride 108 H Carbon Dioxide 25 BUN 85 H Creatinine 3.94 H Glucose 192 H Calcium 8.3 L
[2024-10-08 04:47] LABS: Hematocrit (blood only) 30.1 % (42.0-52.0); Hemoglobin 9.6 g/dl (14.0-18.0); Mean Corpuscular Hemoglobin 33.1 pg (25.0-34.0); Mean Corpuscular Hgb Conc 31.9 g/dL (32.0-36.0); Mean Corpuscular Volume 103.8 fL (80.0-100.0); Mean Platelet Volume 12.1 fL (9.4-12.4); Platelet Count 125 K/uL (130-400); RDW Coefficient of Variation 15.1 % (11.5-14.5); RDW Standard Deviation 57.6 fL (36.4-46.3); White Blood Count 9.84 K/ul (4.8-10.8)
[2024-10-08 05:05] LABS: BUN Creatinine Ratio 20.6 (10-20); Calcium 8.5 mg/dl (8.6-10.3); Creatinine Clr Calc Pharmacy 16.8 ml/min
[2024-10-08] MEDS: HYDROCORTISONE SOD 50 MG in SYRINGE 0 ML IV SCH (08:28)
[2024-10-08] MEDS: POTASSIUM CHLORIDE CRTAB 20 MEQ TABCR PO ONE (09:47)
--- NOTE | 2024-10-08 10:53 | Orthopedic Progress Note ---
Date of Service October 08, 2024 Assessment & Plan (1) Vertebral osteomyelitis: Plan: Patient is tolerating physical therapy very well. We will discontinue his drain today. From an orthopedic standpoint he is stable for discharge. Admission and Anticipated Discharge Date Admission Date: September 29, 2024 Subjective Patient is in the chair at the bedside. Is comfortable. Physical Exam Physical Exam: Patient has good strength testing. He is comfortable. Results & Data Vital Signs (Past 12 Hours) Vital Signs Temp Pulse Pulse Resp BP Pulse Ox O2 Del Method 10/08/24 08:24 74 10/08/24 07:51 36.8 C 55 L 18 144/70 H 98 Room Air 10/08/24 07:41 61 10/08/24 00:02 36.4 C L 60 16 142/72 H 97 Room Air
--- NOTE | 2024-10-08 14:27 | Hospitalist Progress Note ---
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 Patient is referred for admission due to MRI lumbar spine findings as outpatient.. Vertebral osteomyelitis Sinus wound in Lumbar region Hx of Lumbar spine surgery Possible Severe Sepsis Adrenal Insufficiency --Lumbar Spine MRI: L2-L5 instrumented fusion and L2-L4 laminectomies.2. Severe L5-S1 distal junctional thecal sac stenosis.3. Dorsal subcutaneous fat stranding and swelling with a shallow sinus tract. Artifact limiting assessment of sinus tract depth with accuracy. L1 spinous process signal abnormality with new erosion involving the tip of L1 spinous process. The differential includes reactive osteitis and/or osteomyelitis. --S/P irrigation debridement lumbar spine, resection of T12 and L1 spinous process by Dr. Irene on 10/03/2024. --ESR slightly elevated to 21, CRP slightly elevated to 0.63. -- Blood cultures: Negative to date -- Superficial wound culture growing Staph aureus, Pseudomonas --Follow-up intraoperative wound cultures--negative to date -- Appreciate orthopedics, ID input --Transient need for pressors requiring ICU transfer, pressors discontinued --Orthopedics believes hardware less likely infected. Orthopedics prefer IV antibiotics for 6 weeks -- Continue IV Zosyn for now -- Continue PT OT -- Transition IV Solu-Medrol to prednisone Discuss with ID tomorrow for final recommendations. May need PICC placement Plan to discontinue LETY drain today per Ortho LIZZ on CKD IV Hyperkalemia--resolved Baseline Cr 2.7-3 Because of ANCA serology patient underwent renal biopsy suggestive of ATN Known dialysis needed at this time per nephrology Appreciate nephrology input Monitor renal function closely Avoid nephrotoxic agents as able Monitor renal function closely Cr 3.39 today Hypokalemia Replete electrolytes as needed Monitor Paroxysmal atrial fibrillation Continue metoprolol Eliquis held currently for surgery Plan to resume anticoagulation once cleared by orthopedic surgery Acute on Chronic HFpEF Received IV Lasix Resume home Lasix as needed Monitor volume status Chronic thrombocytopenia Monitor platelet count Other chronic conditions HTN/HLD COPD: chronic, stable, continue inhaler Chronic gout: continue allopurinol SCC of left neck cutaneous tissue s/p dissection requiring reconstruction and flap procedure in August in [place] currently to undergo adjuvant radiation at [facility] DVT Px: Eliquis, currently on hold for possible surgery in next couple of days. Resume anticoagulation as able CODE STATUS Full code Disposition PT OT prior to discharge Admission and Anticipated Discharge Date Admission Date: September 29, 2024 Subjective Patient is seen and examined at bedside No new complaints Renal function improving Updated patient's family over the phone Back pain is well-controlled Denies any chest pain, dyspnea, nausea, vomiting, abdominal pain Review of Systems Review of Systems: All systems reviewed & are unremarkable except as noted in Subjective Physical Exam Physical Exam: Physical Exam: Vitals signs as noted above General Appearance:Moderately built and nourished, no apparent distress Head: normocephalic, Atraumatic, +Left neck surgical site Eyes: normal inspection, EOMI Neck: supple, Trachea midline Respiratory/Chest: Normal breath sounds, CTA, No accessory muscle use Cardiovascular: S1, S2, No murmur Abdomen/GI:Soft, Non tender, Bowel sounds present Back: surgical site in dressing Extremities/Musculoskeletal:normal inspection, no edema Neurologic/Psych:AAOX3, grossly no focal neurological deficits Skin: normal color, warm Results & Data Results & Data Vital Signs (Past 12 Hours) Vital Signs Temp Pulse Pulse Resp BP Pulse Ox O2 Del Method 10/08/24 14:06 83 10/08/24 11:18 36.7 C 68 19 154/75 H 97 Room Air 10/08/24 08:24 74 10/08/24 07:51 36.8 C 55 L 18 144/70 H 98 Room Air 10/08/24 07:41 61 Laboratory Results Short CBC 10/08/24 Range/Units 04:10 WBC 9.84 (4.8-10.8) K/ul Hgb 9.6 L (14.0-18.0) g/dl Hct 30.1 L (42.0-52.0) % Plt Count 125 L (130-400) K/uL BMP 10/08/24 04:10 Sodium 141 Potassium 3.0 L Chloride 108 H Carbon Dioxide 27 BUN 70 H Creatinine 3.39 H D Glucose 113 H Calcium 8.5 L
--- NOTE | 2024-10-08 15:04 | Nephrology Progress Note ---
Date of Service October 08, 2024 Assessment & Plan (1) LIZZ (acute kidney injury): Plan: acute kidney injury on background CKD 4. he has established CKD 4 with GFR around 20 creatinine around 3 as baseline. Because of abnormal ANCA serology even had renal biopsy which showed ATN and he required dialysis briefly but since then has recovered partially. Current creatinine is higher than his baseline. etiology of acute kidney injury is most likely ATN given the low blood pressure he had at the time of admission in the setting of osteomyelitis. his urinary sediment was also classic for ATN with active urine sediment and presence of granular cast as well as hyaline cast. creatinine down to 3.39 today. no signs of volume overload. He has mild hypokalemia of 3. Avoid nephrotoxic agents including NSAIDs contrast agent and nephrotoxic antibiotics current antibiotic of daptomycin and IV Zosyn is reasonable from renal standpoint and can be continued. kcl [id number] daily till k is 4 daily renal panel. - From renal standpoint patient can be discharged to follow-up with Nephrology in 1-2 weeks (2) CKD (chronic kidney disease), stage IV: Plan: he has established CKD 4 with GFR around 20 creatinine around 3 as baseline. Because of abnormal ANCA serology even had renal biopsy which showed ATN and he required dialysis briefly but since then has recovered partially. Current creatinine is higher than his baseline (3) Osteomyelitis: Plan: seen on MRI and he is getting daptomycin and Zosyn. Continue same Admission and Anticipated Discharge Date Admission Date: September 29, 2024 Subjective seen for acute kidney injury. He feels better. No shortness of breath. He has mild leg swelling. He is making urine and creatinine downtrending. Review of Systems 2 Review of Systems: All other systems were reviewed and negative except as noted in HPI Physical Exam 2 Physical Exam: General exam: Appears comfortable, no acute distress HEENT: Pupils are equal and reactive to light Neck: No JVD, neck is supple trachea is midline Respiratory system: Clear breath sounds bilaterally. Gastrointestinal: Abdomen is soft, non distended, non tender, bowel sounds are present CVS: Regular rate and rhythm. No murmurs, rubs or gallops Musculoskeletal: No joint or muscle tenderness Extremities: Non tender, no edema, peripheral pulses are present Neuro: Oriented, no tremors, no focal neurological deficits Skin: No rashes Results & Data Vital Signs (Past 12 Hours) Vital Signs Temp Pulse Pulse Resp BP Pulse Ox O2 Del Method 10/08/24 14:06 83 10/08/24 11:18 36.7 C 68 19 154/75 H 97 Room Air 10/08/24 08:24 74 10/08/24 07:51 36.8 C 55 L 18 144/70 H 98 Room Air 10/08/24 07:41 61 Laboratory Results 10/08/24 04:10 10/08/24 04:10 WBC 9.84 RBC 2.90 L MCV 103.8 H MCH 33.1 MCHC 31.9 L RDW Std Deviation 57.6 H RDW Coeff of Rk 15.1 H Plt Count 125 L MPV 12.1 (3) Osteomyelitis Osteomyelitis location: unspecified site Osteomyelitis type: unspecified type Qualified Code(s): M86.9 - Osteomyelitis, unspecified
[2024-10-09 05:27] LABS: BUN Creatinine Ratio 18.3 (10-20); Calcium 8.7 mg/dl (8.6-10.3); Creatinine Clr Calc Pharmacy 16.5 ml/min; Potassium 3.7 mmol/L (3.5-5.1)
[2024-10-09 07:09] VITALS: RESP 19; O2SAT 97
[2024-10-09] MEDS: POTASSIUM CHLORIDE CRTAB 20 MEQ TABCR PO SCH (08:26)
[2024-10-09] MEDS: predniSONE 20 MG TAB PO SCH (08:26)
[2024-10-09 10:54] VITALS: BP 108/66; TEMP 98.2
--- NOTE | 2024-10-09 12:11 | Nephrology Progress Note ---
Date of Service October 09, 2024 Assessment & Plan (1) LIZZ (acute kidney injury): Plan: acute kidney injury on background CKD 4. he has established CKD 4 with GFR around 20 creatinine around 3 as baseline. Because of abnormal ANCA serology even had renal biopsy which showed ATN and he required dialysis briefly but since then has recovered partially. Current creatinine is higher than his baseline. etiology of acute kidney injury is most likely ischemic ATN given the low blood pressure at the time of admission in the setting of osteomyelitis/severe sepsis. his urinary sediment was also classic for ATN with active urine sediment and presence of granular casts as well as hyaline cast. creatinine plateau'd at 3.4 today. w/ diffuse edema, concern for mild though asx volume overload. mild hypokalemia of 3 improved to 3.7 today >> monitor on daily po K -Avoid nephrotoxic agents including NSAIDs contrast agent and nephrotoxic antibiotics current antibiotic of daptomycin and IV Zosyn is reasonable from renal standpoint and can be continued. - daily renal panel plts 125 > stable; hgb 9.6 today, just under 10 >> will monitor >>>>pls AVOID PICC in this pt for penitentiary abtx; suggest midline which can be changed per routine at [facility] if IV abtx needed For hospital d/c today -resume regular OP medications except for furosemide >> increase this to 60 mg MWF and extra dose daily prn edema -lower potassium dosing to 20 mEq on days he takes furosemide only -BMP at [facility] hospital d/c appt -BMP, UACM, ACR, CBC to be drawn no more than 72 hrs before neph f/u appt and to be ordered by neph nurse -hospital d/c appt in 1-2 wks w/ Dr Gunn at nephro [facility] preferably Care coordinated repeatedly w/ Dr Corea via TText re abtx dispo and IV access for thiese if IV, neph d/c recs; we are in agreement. (2) CKD (chronic kidney disease), stage IV: Plan: he has established CKD 4 with GFR around 20 creatinine around 3 as baseline. Because of abnormal ANCA serology even had renal biopsy which showed ATN and he required dialysis briefly but since then has recovered partially. Current creatinine is higher than his baseline (3) Osteomyelitis: Plan: seen on MRI and he is getting Zosyn. Continue same Admission and Anticipated Discharge Date Admission Date: September 29, 2024 Subjective seen on am rounds; sitting up in chair; waiting for dispo on IV versus po abtx. no uncontrolled pain feels edema stable Review of Systems 2 Review of Systems: All systems reviewed & are unremarkable except as noted in Subjective Physical Exam 2 Constitutional: well developed, + frail appearing and cooperative; no acute distress Eyes: EOM intact bilaterally ENMT: Mouth: + dry oral mucous membranes Neck: no nuchal rigidity Respiratory: normal respiratory effort Auscultation: + diminished lung sounds and + crackles Cardiovascular: Rate/Rhythm: regular rate and regular rhythm Extremities: + edema Gastrointestinal (Abdomen): Inspection/Auscultation: normal bowel sounds P ercussion/Palpation: abdomen soft; abdomen nontender Musculoskeletal: Extremities: strength 5/5 throughout Skin: no rashes, warm and dry Neurologic: capone, fluent speech, no tremor Results & Data Vital Signs (Past 12 Hours) Vital Signs Temp Pulse Pulse Resp BP Pulse Ox O2 Del Method 10/09/24 10:53 36.8 C 65 19 108/66 97 Room Air 10/09/24 07:08 60 10/09/24 07:07 36.6 C 76 19 175/87 H 97 Room Air 10/09/24 04:07 36.6 C 65 17 152/73 H 96 Room Air 10/09/24 00:23 36.7 C 67 17 154/80 H 97 Room Air Laboratory Results 10/08/24 04:10 10/09/24 04:08 (3) Osteomyelitis Osteomyelitis location: unspecified site Osteomyelitis type: unspecified type Qualified Code(s): M86.9 - Osteomyelitis, unspecified
--- NOTE | 2024-10-09 14:46 | Hospitalist Progress Note ---
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 Patient is referred for admission due to MRI lumbar spine findings as outpatient.. Vertebral osteomyelitis Sinus wound in Lumbar region Hx of Lumbar spine surgery Possible Severe Sepsis Adrenal Insufficiency --Lumbar Spine MRI: L2-L5 instrumented fusion and L2-L4 laminectomies.2. Severe L5-S1 distal junctional thecal sac stenosis.3. Dorsal subcutaneous fat stranding and swelling with a shallow sinus tract. Artifact limiting assessment of sinus tract depth with accuracy. L1 spinous process signal abnormality with new erosion involving the tip of L1 spinous process. The differential includes reactive osteitis and/or osteomyelitis. --S/P irrigation debridement lumbar spine, resection of T12 and L1 spinous process by Dr. Ierne on 10/03/2024. --ESR slightly elevated to 21, CRP slightly elevated to 0.63. -- Blood cultures: Negative to date -- Superficial wound culture growing Staph aureus, Pseudomonas --Follow-up intraoperative wound cultures--negative to date -- Appreciate orthopedics, ID input --Transient need for pressors requiring ICU transfer, pressors discontinued --Orthopedics believes hardware less likely infected. -- Continue IV Zosyn >> transition to ciprofloxacin, Augmentin with renal dosing as recommended by infectious disease to complete 2-week course --Discussed with infectious disease on 10-09-24. --Continue PT OT: Home with home health --Transition IV Solu-Medrol to prednisone Plan to discharge home today Advised to follow-up with orthopedics, infectious disease on discharge LIZZ on CKD IV Hyperkalemia--resolved Baseline Cr 2.7-3 Because of ANCA serology patient underwent renal biopsy suggestive of ATN Known dialysis needed at this time per nephrology Appreciate nephrology input Monitor renal function closely Avoid nephrotoxic agents as able Monitor renal function closely Cr 3.4 today Will need follow-up with nephrology on discharge Hypokalemia Replete electrolytes as needed Monitor Paroxysmal atrial fibrillation Continue metoprolol Eliquis held currently for surgery Plan to resume anticoagulation on discharge Acute on Chronic HFpEF Received IV Lasix Resume home Lasix as needed Monitor volume status Chronic thrombocytopenia Monitor platelet count Other chronic conditions HTN/HLD COPD: chronic, stable, continue inhaler Chronic gout: continue allopurinol SCC of left neck cutaneous tissue s/p dissection requiring reconstruction and flap procedure in August in [place] currently to undergo adjuvant radiation at [facility] DVT Px: Eliquis on hold during hospitalization Resume anticoagulation as able CODE STATUS Full code Disposition Home with home health Admission and Anticipated Discharge Date Admission Date: September 29, 2024 Subjective Patient is seen and examined at bedside No new complaints Updated patient's over the phone Discussed with infectious disease today Back pain continues to improve Denies any chest pain, dyspnea, nausea, vomiting, abdominal pain Plan to discharge home today Review of Systems Review of Systems: All systems reviewed & are unremarkable except as noted in Subjective Physical Exam Physical Exam: Physical Exam: Vitals signs as noted above General Appearance:Moderately built and nourished, no apparent distress Head: normocephalic, Atraumatic, +Left neck surgical site Eyes: normal inspection, EOMI Neck: supple, Trachea midline Respiratory/Chest: Normal breath sounds, CTA, No accessory muscle use Cardiovascular: S1, S2, No murmur Abdomen/GI:Soft, Non tender, Bowel sounds present Back: surgical site in dressing Extremities/Musculoskeletal:normal inspection, no edema Neurologic/Psych:AAOX3, grossly no focal neurological deficits Skin: normal color, warm Results & Data Results & Data Vital Signs (Past 12 Hours) Vital Signs Temp Pulse Pulse Resp BP Pulse Ox O2 Del Method 10/09/24 14:38 73 10/09/24 10:53 36.8 C 65 19 108/66 97 Room Air 10/09/24 07:08 60 10/09/24 07:07 36.6 C 76 19 175/87 H 97 Room Air 10/09/24 04:07 36.6 C 65 17 152/73 H 96 Room Air Laboratory Results [facility] 10/09/24 04:08 Sodium 142 Potassium 3.7 D Chloride 108 H Carbon Dioxide 27 BUN 63 H Creatinine 3.44 H Glucose 113 H Calcium 8.7
--- NOTE | 2024-10-09 15:17 | Discharge Summary ---
Date of Service October 09, 2024 Admission HPI Per Admitting Provider This is a 78-year-old male who has significant past medical history of PAF anticoagulated on Eliquis, chronic HFpEF, HTN, HLD, COPD, chronic gout, prediabetes, hypothyroidism, IPMN, ANCA associated vasculitis, CKD stage IV, chronic interstitial vascular insufficiency, hx of SCC of L neck cutaneous tissue s/p wide excision, left neck dissection and reconstrution, hx of erythema nodosum, GERD, vitamin D deficiency, age-related osteoporosis who presents to ED secondary to abnormal MRI that was done as outpatient. Of significance patient had prior lumbar spine surgery [address] Irene. Ever since the surgery he states he has felt a lump in his lower back. Since August He reports a wound opening in his lower back. He reports that you can put a Q-tip the hallway in the wound. He reports cleared white drainage from the wound. He denies any fever, chills, sweats, lower extremity weakness, bowel or bladder incontinence, saddle anesthesia, numbness or tingling of the lower extremities. He does have chronic low back pain that is unchanged. He also denies any chest pain, shortness with, nausea, vomiting or abdominal pain. Due to his lower back wound and MRI was obtained today due to concern For infection. MRI revealed L2-L5 instrumented fusion and L2-L4 laminectomies, severe L5-S1 distal junctional thecal sac stenosis, dorsal subcutaneous fat stranding and swelling with a shallow sinus tract. L1 spinous process signal abnormality with new erosion involvement at the tip of the L1 spinous process differential diagnosis includes reactive osteitis and/or osteomyelitis. Due to abnormal finding patient was referred for admission. Patient, and other family member are at bedside who also helps elicit history. Of significance he does have a prior history of CKD stage IV with a baseline creatinine of approximately 2.7. Of significance he was hospitalized at 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 His postoperative course was complicated by pectoral flap hematoma x 2 and anemia. This was done by Dr. Steve Aldridge. Admission Exam Per Admitting Provider On examination Lying in bed without any acute distress Hemodynamically stable and is afebrile Chestdecreased breath sound at the bases with occasional crackles HeartS1-S2, regular with a 2/6 ESM over precordium Abdomenbenign Extremities1+ edema bilaterally Local examination of the spine did show a small lump involving the upper lumbar area with minimal drainage which is covered with a Band-Aid. Minimal tenderness with adjoining area CNSalert, awake and oriented x 3. No focal sensory and motor deficit appreciated Principal Diagnosis Vertebral osteomyelitis Sinus wound of Lumbar region Acute kidney injury on CKD stage IV Acute on Chronic HFpEF Discharge Data Allergies Allergy/AdvReac Type Severity Reaction Status Date / Time chlorhexidine Allergy Severe Verified 03/16/24 09:47 aztreonam Allergy hives Verified 03/16/24 09:47 Cephalosporins AdvReac Unknown UPSET Verified 03/16/24 09:47 STOMACH ciprofloxacin AdvReac Unknown DIARRHEA Verified 03/16/24 09:47 Iodinated Contrast Media AdvReac Unknown Verified 03/16/24 09:47 levofloxacin AdvReac Unknown Verified 03/16/24 09:47 Consultations 09/29/24 18:52 ED Decision to Admit Stat 09/29/24 19:20 Consult Orthopedic Spine Surgery Routine 10/01/24 08:23 Consult Litigation Examiner Routine 10/02/24 05:42 Consult Nephrology Routine 10/02/24 08:46 Consult Infectious Diseases Routine Procedures Performed Operation Date: 10/03/24 07:00 Actual Procedures p Incision and Drainage Spinous Process(Not Applicable) - Vickey Irene DO Ordered Studies Laboratory Results WBC 9.84 K/ul (4.8-10.8) 10/08/24 04:10 RBC 2.90 M/uL (4.70-6.10) L 10/08/24 04:10 Hgb 9.6 g/dl (14.0-18.0) L 10/08/24 04:10 Hct 30.1 % (42.0-52.0) L 10/08/24 04:10 MCV 103.8 fL (80.0-100.0) H 10/08/24 04:10 MCH 33.1 pg (25.0-34.0) 10/08/24 04:10 MCHC 31.9 g/dL (32.0-36.0) L 10/08/24 04:10 RDW Std Deviation 57.6 fL (36.4-46.3) H 10/08/24 04:10 RDW Coeff of Rk 15.1 % (11.5-14.5) H 10/08/24 04:10 Plt Count 125 K/uL (130-400) L 10/08/24 04:10 MPV 12.1 fL (9.4-12.4) 10/08/24 04:10 Immature Gran % (Auto) 1.6 % 10/04/24 05:58 Neut % (Auto) 85.6 % 10/04/24 05:58 Lymph % (Auto) 9.6 % 10/04/24 05:58 [place] % (Auto) 3.0 % 10/04/24 05:58 Eos % (Auto) 0.1 % 10/04/24 05:58 Baso % (Auto) 0.1 % 10/04/24 05:58 Neut # (Auto) 6.07 K/uL (1.40-6.50) 10/04/24 05:58 Lymph # (Auto) 0.68 K/uL (1.20-3.40) L 10/04/24 05:58 [place] # (Auto) 0.21 K/uL (0.11-0.59) 10/04/24 05:58 Eos # (Auto) 0.01 K/uL (0.00-0.50) 10/04/24 05:58 Baso # (Auto) 0.01 K/uL (0.00-0.20) 10/04/24 05:58 Immature Gran # (Auto) 0.11 K/uL (0.01-0.20) 10/04/24 05:58 Neutrophils % (Manual) 99 % 10/03/24 11:46 Lymphocytes % (Manual) 5 % 10/03/24 03:57 Monocytes % (Manual) 1 % 10/03/24 11:46 Neutrophils # (Manual) 12.05 K/uL (1.40-6.50) H 10/03/24 11:46 Total Absolute Neuts 12.05 K/uL (1.4-6.5) H 10/03/24 11:46 Lymphocytes # (Manual) 0.70 K/uL (1.2-3.4) L 10/03/24 03:57 Total Abs Lymphocytes 0.70 K/uL (1.2-3.4) L 10/03/24 03:57 Monocytes # (Manual) 0.12 K/uL (0.11-0.59) 10/03/24 11:46 Dohle Bodies 1+ 10/03/24 03:57 Platelet Estimate Decreased (Normal) L 10/02/24 04:17 RBC Morphology Unremarkable 10/03/24 03:57 Polychromasia 2+ 10/02/24 04:17 Tear Drop Cells 1+ 10/02/24 04:17 ESR 21 mm/hr (0-20) H 09/29/24 19:38 PT 10.9 Seconds (9.0-12.0) 09/29/24 19:00 INR 1.0 (0.9-1.1) 09/29/24 19:00 APTT 23 Seconds (21-31) 09/29/24 19:00 PTT Ratio 0.9 09/29/24 19:00 Sodium 142 mmol/L (136-145) 10/09/24 04:08 Potassium 3.7 mmol/L (3.5-5.1) D 10/09/24 04:08 Chloride 108 mmol/L (98-107) H 10/09/24 04:08 Carbon Dioxide 27 mmol/L (21-32) 10/09/24 04:08 Anion Gap 7 (3-11) 10/09/24 04:08 BUN 63 mg/dl (6-23) H 10/09/24 04:08 Creatinine 3.44 mg/dl (0.6-1.4) H 10/09/24 04:08 Est Cr Clr Drug Dosing 16.5 ml/min 10/09/24 04:08 eGFR 17.49 10/09/24 04:08 BUN/Creatinine Ratio 18.3 (10-20) 10/09/24 04:08 Glucose 113 mg/dl (70-99(Fasting)) H 10/09/24 04:08 POC Glucose 121 mg/dl (70-99) H 10/03/24 16:12 Lactate 2.7 mmol/L (0.4-2.0) H* 10/01/24 07:46 Calcium 8.7 mg/dl (8.6-10.3) 10/09/24 04:08 Phosphorus 4.6 mg/dl (2.5-4.9) D 10/06/24 03:40 Magnesium 1.9 mg/dl (1.7-2.4) 10/06/24 03:40 Total Bilirubin 0.5 mg/dl (0.2-1.0) 10/02/24 04:17 Direct Bilirubin 0.2 mg/dl (0-0.2) 10/01/24 07:46 AST 77 U/L (13-39) H 10/02/24 04:17 ALT 31 U/L (7-52) 10/02/24 04:17 Alkaline Phosphatase 35 U/L (34-104) 10/02/24 04:17 Total Creatine Kinase 743 U/L (30-223) H 10/01/24 07:46 Troponin I High Sens 18.2 pg/ml (0-20) 09/29/24 19:00 C-Reactive Protein 0.63 mg/dl (0-0.5) H 09/29/24 19:00 Total Protein 5.6 gm/dl (6.0-8.3) L 10/02/24 04:17 Albumin 2.8 gm/dl (3.4-5.0) L 10/06/24 03:40 Globulin 2.7 gm/dl (2.5-4.0) 10/02/24 04:17 Albumin/Globulin Ratio 1.1 (0.9-2) 10/02/24 04:17 Procalcitonin 0.10 ng/ml (0-0.5) 09/29/24 19:00 Random Cortisol 3.74 mcg/dl 10/01/24 07:46 Urine Color Yellow 10/02/24 16:15 Urine Appearance Clear (Clear) 10/02/24 16:15 Urine pH 6.0 (4.5-7.5) 10/02/24 16:15 Ur Specific [place] 1.012 (1.000-1.030) 10/02/24 16:15 Urine Protein 1+ (Negative) H 10/02/24 16:15 Urine Glucose (UA) Trace (Negative) H 10/02/24 16:15 Urine Ketones Negative (Negative) 10/02/24 16:15 Urine Blood 2+ (Negative) H 10/02/24 16:15 Urine Nitrite Negative (Negative) 10/02/24 16:15 Urine Bilirubin Negative (Negative) 10/02/24 16:15 Urine Urobilinogen Negative (Negative) 10/02/24 16:15 Ur Leukocyte Esterase Trace (Negative) H 10/02/24 16:15 Urine WBC (Auto) 6-10 /hpf (0-5) H 10/02/24 16:15 Urine RBC (Auto) 0-2 /hpf (0-2) 10/02/24 16:15 U Hyaline Cast (Auto) 6-10 /lpf (0-2) H 10/02/24 16:15 U Epithel Cells (Auto) 0-2 /hpf (0-2) 10/02/24 16:15 Urine Bacteria (Auto) None Seen (None Seen) 10/02/24 16:15 Granular Casts Present /lpf (None Prsent) A 10/01/24 10:00 Nasal Screen MRSA (PCR) Negative (Negative) 09/29/24 19:37 Stl C. cayetanensis PCR Not Detected (NotDetected) 10/01/24 05:00 Stool Rotavirus A PCR Not Detected (NotDetected) 10/01/24 05:00 Stl Adenov F 40/41 PCR Not Detected (NotDetected) 10/01/24 05:00 Stool Astrovirus (PCR) Not Detected (NotDetected) 10/01/24 05:00 Stool Campylobacter PCR Not Detected (NotDetected) 10/01/24 05:00 Stl C. diff Tox B Gene Negative Cdiff Gene (Neg) 10/08/24 09:30 Stool Cryptosporidium PCR Not Detected (NotDetected) 10/01/24 05:00 Stl E.coli Shiga Tox PCR Not Detected (NotDetected) 10/01/24 05:00 Stl Enterotoxigenic E PCR Not Detected (NotDetected) 10/01/24 05:00 Stool EPEC (PCR) Not Detected (NotDetected) 10/01/24 05:00 Stool EAEC (PCR) Not Detected (NotDetected) 10/01/24 05:00 Stl E. histolytica PCR Not Detected (NotDetected) 10/01/24 05:00 Stool Giardia Lamblia PCR Not Detected (NotDetected) 10/01/24 05:00 Stool Salmonella PCR Not Detected (NotDetected) 10/01/24 05:00 Stool Sapovirus (PCR) Not Detected (NotDetected) 10/01/24 05:00 Stl P. shigelloides PCR Not Detected (NotDetected) 10/01/24 05:00 Stl Shigella/EIEC PCR Not Detected (NotDetected) 10/01/24 05:00 St Y.enterocolitica PCR Not Detected (NotDetected) 10/01/24 05:00 Stool Vibrio (PCR) Not Detected (NotDetected) 10/01/24 05:00 Stl Vibrio cholerae PCR Not Detected (NotDetected) 10/01/24 05:00 Stl Norovirus GI/GII PCR Not Detected (NotDetected) 10/01/24 05:00 Random Vancomycin 13.3 mcg/ml (10-20) 09/30/24 12:13 Heparin Dep Plt Ab React Positive (Negative) A* 10/02/24 09:57 Heparin Dep Plt Ab OD 0.843 OD UNITS 10/02/24 09:57 Impressions Chest X-Ray 10/01/24 07:27 XR chest 1V portable CLINICAL HISTORY: rule out pneumonia COMPARISON STUDY: No previous studies for comparison. FINDINGS: Lung volumes are mildly diminished. There is no pneumothorax or pleural effusion. Linear left basilar densities favor atelectasis or scarring. There is mild interstitial thickening. There may be a few patchy right lung airspace opacities. No lobar consolidation is present. Cardiomediastinal silhouette is unremarkable. IMPRESSION: 1. Interstitial thickening. This favors mild pulmonary edema. 2. A few possible patchy right lung airspace opacities. This may reflect asymmetric pulmonary edema or an infectious process. Radiographic follow-up to ensure resolution is recommended. ACT 112: Negative or not required by law. Electronically signed by: Rodney Foley M.D. 10/01/2024 8:10 AM Spine X-Ray 10/03/24 00:00 FL lumbar spine 2-3V CLINICAL HISTORY: Irrigation and debridement. COMPARISON STUDY: Lumbar spine MRI September 29, 2024. FLUOROSCOPY TIME: 4 seconds. Ka,r: 2.37 mGy FLUOROSCOPIC IMAGES: 1 FINDINGS: Fluoroscopy was provided during irrigation and debridement. Lumbar spine fusion hardware is partially imaged. Several chronic lumbar spine compression fractures are present. IMPRESSION: Fluoroscopy provided during irrigation and debridement. ACT 112: Negative or not required by law. Electronically signed by: Rodney Foley M.D. 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 Patient is referred for admission due to MRI lumbar spine findings as outpatient.. Vertebral osteomyelitis Sinus wound in Lumbar region Hx of Lumbar spine surgery Possible Severe Sepsis Adrenal Insufficiency --Lumbar Spine MRI: L2-L5 instrumented fusion and L2-L4 laminectomies.2. Severe L5-S1 distal junctional thecal sac stenosis.3. Dorsal subcutaneous fat stranding and swelling with a shallow sinus tract. Artifact limiting assessment of sinus tract depth with accuracy. L1 spinous process signal abnormality with new erosion involving the tip of L1 spinous process. The differential includes reactive osteitis and/or osteomyelitis. --S/P irrigation debridement lumbar spine, resection of T12 and L1 spinous process by Dr. Irene on 10/03/2024. --ESR slightly elevated to 21, CRP slightly elevated to 0.63. -- Blood cultures: Negative to date -- Superficial wound culture growing Staph aureus, Pseudomonas --Follow-up intraoperative wound cultures--negative to date -- Appreciate orthopedics, ID input --Transient need for pressors requiring ICU transfer, pressors discontinued --Orthopedics believes hardware less likely infected. -- Continue IV Zosyn >> transition to ciprofloxacin, Augmentin with renal dosing as recommended by infectious disease to complete 2-week course --Discussed with infectious disease on 10-09-24. --Continue PT OT: Home with home health --Transition IV Solu-Medrol to prednisone Plan to discharge home today Advised to follow-up with orthopedics, infectious disease on discharge LIZZ on CKD IV Hyperkalemia--resolved Baseline Cr 2.7-3 Because of ANCA serology patient underwent renal biopsy suggestive of ATN Known dialysis needed at this time per nephrology Appreciate nephrology input Monitor renal function closely Avoid nephrotoxic agents as able Monitor renal function closely Cr 3.4 today Will need follow-up with nephrology on discharge Hypokalemia Replete electrolytes as needed Monitor Paroxysmal atrial fibrillation Continue metoprolol Eliquis held currently for surgery Plan to resume anticoagulation on discharge Acute on Chronic HFpEF Received IV Lasix Resume home Lasix as needed Monitor volume status Chronic thrombocytopenia Monitor platelet count Other chronic conditions HTN/HLD COPD: chronic, stable, continue inhaler Chronic gout: continue allopurinol SCC of left neck cutaneous tissue s/p dissection requiring reconstruction and flap procedure in August in [place] currently to undergo adjuvant radiation at [facility] DVT Px: Eliquis on hold during hospitalization Resume anticoagulation as able CODE STATUS Full code Disposition Home with home health Total Time Total Time Spent Total Time Spent (In Minutes): 48 minutes Discharge Plan Discharge Items Patient Disposition: Home - Home Health Services Reason For Visit: OSTEOMYELITIS Discharge Diagnosis: Vertebral osteomyelitis Sinus wound of Lumbar region Acute kidney injury on CKD stage IV Acute on Chronic HFpEF Activity: Per Instructions section Exercise/Sports: Gradually increase as tolerated Non-emergency contact: Primary Care Provider, Surgeon, Specialist and Splitting Machine Tender Call non-emergency contact if: you have any medication questions, your symptoms worsen, your pain is concerning for you and you have a fever Follow-up/Referrals: Fuentes Ashton MD [Primary Care Provider] - Diet: Heart Healthy Addtl Attending Provider Instructions: Follow-up with your primary care physician in 1 week Follow-up with your orthopedic surgeon as recommended Follow-up with your infectious disease and 2 weeks as recommended Follow-up with your managing editor Dr. Gunn in 1 to 2 weeks --Complete the antibiotic course ciprofloxacin and Augmentin for 2 weeks as recommended by infectious disease. --Get blood work as recommended by nephrology for follow-up visit. -- Your Lasix is increased to 60 mg once a day on Wednesday, Wednesday and Wednesday only. Take potassium supplement 20 mg once a day on Wednesday, Wednesday, Wednesday only. -- Continue prednisone 10 mg daily for now. Further recommendations as per your primary care physician. Seek immediate medical attention if your symptoms reoccur or worsen Please take all medications as instructed on discharge list below. Please call if you have any questions or problems. You can reach a [facility] [address] hospitalist on duty at [facility] 24 hours a day by calling [phone] Pending Studies at Discharge: Yes Studies:: Final wound cultures Stand-Alone Forms: My [facility], Smoking Cessation Medications and DC Order Prescriptions: New calcium acetate(phosphat bind) 667 mg Capsule 667 mg PO TIDM 14 Days Qty: 42 0RF Advanced Probiotic 625 mg (10 billion cell) Capsule 1 cap PO DAILY 30 Days Qty: 30 0RF potassium chloride 20 mEq Tablet,Er Particles/Crystals 20 meq PO UD Qty: 30 0RF Rx Instructions: Take potassium chloride 20 mg daily on Wednesday, Wednesday, Wednesday only along with Lasix. ciprofloxacin HCl 500 mg tablet 500 mg PO DAILY Qty: 14 0RF amoxicillin-pot clavulanate [Augmentin] 500-125 mg tablet 1 tab PO BID 14 Days Qty: 28 0RF Continued (DME) Monoject Safety Syringes 3 mL 21 gauge x 1" syringe See Rx Instructions .Route Qty: 100 0RF Rx Instructions: Use to inject testosterone once a week testosterone cypionate 100 mg/mL oil 75 mg subcut Q7D Qty: 10 2RF Rx Instructions: Give 75mg IM once a week. Eliquis 5 mg tablet 5 mg PO BID metoprolol succinate 25 mg tablet extended release 24 hr 25 mg PO DAILY omeprazole 20 mg capsule,delayed release(DR/EC) 20 mg PO DAILY levothyroxine 50 mcg tablet 50 mcg PO DAILY albuterol sulfate 1.25 mg/3 mL solution for nebulization 1.25 mg inhalation BID PRN (Reason: sob) acetaminophen [Tylenol] 325 mg tablet 325 mg PO QID PRN (Reason: Pain (Scale Score 1-3)) atorvastatin 20 mg tablet 20 mg PO DAILY allopurinol 100 mg tablet 200 mg PO DAILY calcitriol 0.25 mcg capsule 0.25 mcg PO DAILY Qty: 30 5RF sodium bicarbonate 650 mg Tablet 650 mg PO AMHS folic acid 1 mg Tablet 1 mg PO DAILY oxycodone 5 mg tablet 5 mg PO Q6H PRN (Reason: Moderate Pain (Scale Score 5-6)) umeclidinium-vilanterol 62.5-25 mcg/actuation Blister With Device 1 inh INHALATION DAILY Changed furosemide 20 mg tablet 20 mg PO UD Qty: 90 0RF Rx Instructions: Take Lasix 60 mg daily on Wednesday, Wednesday, Wednesday only. Can use extra dose 20 mg as needed for increased edema prednisone 5 mg tablet 10 mg PO DAILY Qty: 30 0RF Discharge Orders: Discharge Order (Routine); Ordered 10/09/24 Ordered By: Jamie Corea Admission Data Admit Date/Time: 09/29/24 19:20 Attending Provider: Jamie Corea Admit Provider: Mikie Arenas Primary Care Provider: Fuentes Ashton Other Providers: [facility]; Mikie Arenas; Vickey Irene; Sushila Sales; Dario Carrillo; Keisha Gunn; Roslyn Moulton; Rivka Sampson; Saeed Torres; Danisha Ramos; Nabor Sanford I.; Armando Smith II; Rivka Simon; Zach Asher; Jonah Berry; Eugene Stokes
[2024-10-09 15:28] VITALS: PULSE 65
== END 2024-10-09 18:16 | disposition home or self-care (01) | DRG 500 ==
LOC: ED 18:19 → 2N 19:20 → SUATTDRO 19:20 → 2N 22:32 → 1E 10-01 07:51 → 4W 10-03 16:34

== ENCOUNTER 2024-10-25 23:18 | Inpatient (IN) ==
[2024-10-26] MEDS: SODIUM CHLORIDE 0.9% 500 ML IV ONE (00:31)
[2024-10-26 00:44] LABS: Basophils # (auto) 0.03 K/uL (0.00-0.20); Basophils % (auto) 0.4 %; Eosinophils # (auto) 0.49 K/uL (0.00-0.50); Eosinophils % (auto) 5.8 %; Hematocrit (blood only) 36.1 % (42.0-52.0); Hemoglobin 11.3 g/dl (14.0-18.0); Immature Granulocytes % (auto) 2.4 %; Lymphocytes # (auto) 0.56 K/uL (1.20-3.40); Lymphocytes % (auto) 6.7 %; Mean Corpuscular Hemoglobin 33.2 pg (25.0-34.0); Mean Corpuscular Hgb Conc 31.3 g/dL (32.0-36.0); Mean Corpuscular Volume 106.2 fL (80.0-100.0); Mean Platelet Volume 11.8 fL (9.4-12.4); Monocytes # (auto) 0.21 K/uL (0.11-0.59); Monocytes % (auto) 2.5 %; Neutrophils # (auto) 6.93 K/uL (1.40-6.50); Neutrophils % (auto) 82.2 %; Platelet Count 143 K/uL (130-400); RDW Coefficient of Variation 14.8 % (11.5-14.5); RDW Standard Deviation 58.5 fL (36.4-46.3); White Blood Count 8.42 K/ul (4.8-10.8)
[2024-10-26 00:51] LABS: Appearance Urine Clear (Clear); Bacteria Urine Automated None Seen (None Seen); Bilirubin Urine Negative (Negative); Blood Urine Trace (Negative); Color Urine Yellow; Epithelial Cell Urine Auto 0-2 /hpf (0-2); Glucose Urine UA 2+ (Negative); Ketones Urine Negative (Negative); Leukocyte Esterase Urine 1+ (Negative); Nitrite Urine Negative (Negative); Protein Urine 2+ (Negative); RBC Urine Automated 0-2 /hpf (0-2); Specific Gravity Urine 1.016 (1.000-1.030); Urobilinogen Urine Negative (Negative)
[2024-10-26 01:05] LABS: Albumin Level 2.9 gm/dl (3.4-5.0); BUN Creatinine Ratio 15.2 (10-20); Bilirubin,Total 0.4 mg/dl (0.2-1.0); Calcium 9.4 mg/dl (8.6-10.3); Creatinine Clr Calc Pharmacy 10.9 ml/min; Magnesium 1.4 mg/dl (1.7-2.4); Potassium 4.3 mmol/L (3.5-5.1); Total Protein 6.9 gm/dl (6.0-8.3)
[2024-10-26 01:26] LABS: Adenovirus PCR Not Detected (NotDetected); Bordetella parapertussis PCR Not Detected (NotDetected); Bordetella pertussis PCR Not Detected (NotDetected); Chlamydia pneumoniae PCR Not Detected (NotDetected); Coronavirus 229E PCR Not Detected (NotDetected); Coronavirus CoV-2 (COVID19)PCR Not Detected (NotDetected); Coronavirus HKU1 PCR Not Detected (NotDetected); Coronavirus NL63 PCR Not Detected (NotDetected); Coronavirus OC43PCR Not Detected (NotDetected); Human Metapneumovirus PCR Not Detected (NotDetected); Influenza A PCR Not Detected (NotDetected); Influenza B PCR Not Detected (NotDetected); Mycoplasma pneumoniae PCR Not Detected (NotDetected); Parainfluenza Virus 1 PCR Not Detected (NotDetected); Parainfluenza Virus 2 PCR Not Detected (NotDetected); Parainfluenza Virus 3 PCR Not Detected (NotDetected); Parainfluenza Virus 4 PCR Not Detected (NotDetected); Respiratory Syncytial VirusPCR Not Detected (NotDetected); Rhinovirus/Enterovirus PCR Not Detected (NotDetected)
--- NOTE | 2024-10-26 01:45 | XRay Report ---
EXAM: XR chest 1V portable CLINICAL HISTORY: SEPSIS TECHNIQUE: X-ray image of the chest is obtained in AP portable projection. COMPARISON: 10/01/2024 FINDINGS: Pulmonary Parenchyma: Reduced lung volumes. Suboptimal inspiration. Bilateral pulmonary interstitial thickening is noted. could be interstitial edema. Bilateral hilar prominence. Could be vascular congestion. Left basilar atelectasis/infiltrate. Haze is noted in the right lower zone, could be projectional. No evidence of consolidation or collapse. No evidence of pleural effusion . Right apical minimal pleural thickening. Heart and Mediastinum: Heart size and shape are normal. No mediastinal masses. No hilar or mediastinal lymphadenopathy. Bony Thorax: The bony thorax appears intact. Soft Tissues: Soft tissues overlying the chest wall are unremarkable. IMPRESSION: 1. No consolidation or pleural effusion. 2. Bilateral pulmonary interstitial thickening. could be interstitial edema/congestion. 3. Bilateral hilar prominence. Could be vascular congestion. 4. Left basilar atelectasis/infiltrate. 5. Hazy air space opacities in the right lower zone, could be infiltrate or projectional. 6. No acute cardiopulmonary abnormalities are identified. 7. No significant interval change. 8. CT chest is recommended if clinically indicated. Electronically signed by River Bliss 10-26-2024 01:44 AM
[2024-10-26] MEDS: MAGNESIUM SULFATE / D5W 1 GM/100 ML BAG IV STA (01:48)
[2024-10-26] MEDS: SODIUM CHLORIDE 0.9% 1,000 ML IV ONE ×2 (01:48→16:07)
[2024-10-26] MEDS: SODIUM CHLORIDE 0.9% 250 ML IV ONE (02:00)
[2024-10-26] MEDS: 4.5GM X1 IV STA (03:38)
[2024-10-26] MEDS: MAGNESIUM SULFATE / D5W 1 GM/100 ML BAG IV ONE (03:38)
[2024-10-26] MEDS: DAPTOmycin 400 MG in SYRINGE 0 ML IV SCH (04:50)
--- NOTE | 2024-10-26 04:59 | History & Physical Report ---
Date of Service October 26, 2024 Assessment & Plan (1) Vertebral osteomyelitis: Plan: 79-year-old male with past medical history significant for steroid-induced diabetes, dyslipidemia, hypothyroidism, intraductal papillary mucinous neoplasm, hypogonadism in male, chronic gout, COPD, ANCA associated vasculitis, paroxysmal atrial fibrillation, atherosclerosis of abdominal aorta, chronic heart failure with preserved ejection fraction, hypertension, bilateral lymphadenopathy, CAD, CKD stage IV, chronic intestinal vascular insufficiency, GERD, history of LIZZ, history of erythema nodosum, osteoporosis, fistula of vertebrae, iron deficiency anemia, history of ATN, gynecomastia, history of hematoma of left chest wall who lives at home and ambulates with a cane was brought in because of ongoing infection of the lumbosacral region. There seems to plan for I&D of the lumbosacral wound yesterday morning but because the patient been on Eliquis it was canceled. Seems after going home patient had fevers and he was brought back. Patient is alert and oriented x 3.. Patient denies any fevers. He says he was wobbly and not feeling well so he came back. Has some pain in the back. No abdominal pain. Normal bowel and bladder movements as per patient. Denies any chest pain or shortness of breath. No cough. No headache. No runny nose or sore throat. Vision is okay. Currently resting comfortably and hemodynamically stable. Vertebral osteomyelitis Wound of the lumbosacral region MRI done in 09/29/2024 showed a shallow sinus tract and L1 spinous process possible reactive osteitis or osteomyelitis. And severe L5-S1 distal junctional thecal sac stenosis I&D was canceled yesterday morning because of patient being on Eliquis Comes back tonight because patient not feeling well and there is question of fevers Empirically placed on Dapto and zosyn dosing to adjust per renal function as patient has history of staph and Pseudomonas seem to be Bebe in the past cultures Holding home p.o. antibiotics Consult orthospine and ID Close monitor LIZZ on CKD stage IV Baseline creatinine around 3 Presented with creatinine of 5.1 History of ANCA vasculitis To avoid nephrotoxic agents Getting gentle fluids Consult nephrology for further recommendations Hypomagnesia Replace Follow repeat labs Mild elevation troponin Initial troponin 30 1 repeat 27 Mostly from demand ischemia and CKD Will follow serial enzymes Paroxysmal atrial fibrillation Continue metoprolol succinate Holding Eliquis for now for procedure Hypothyroidism On Synthyroid Chronic heart failure with preserved ejection fraction Getting gentle fluids Holding Lasix as needed and potassium supplements Monitor for volume overload History of COPD Continue home inhalers History of erythema nodosum On prednisone Chronic gout On allopurinol Hyperlipidemia Holding statin while on Dapto History of's 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 requiring reconstruction and flap procedure in August in [place] On radiation treatment Hx of IPMN needs followup DVT prophylaxis SCDs for now Disposition Telemetry Full code. History of Present Illness Chief Complaint: Lumbosacral wound, vertebral osteomyelitis Primary Care Provider: Fuentes Ashton MD 79-year-old male with past medical history significant for steroid-induced diabetes, dyslipidemia, hypothyroidism, intraductal papillary mucinous neoplasm, hypogonadism in male, chronic gout, COPD, ANCA associated vasculitis, paroxysmal atrial fibrillation, atherosclerosis of abdominal aorta, chronic heart failure with preserved ejection fraction, hypertension, bilateral lymphadenopathy, CAD, CKD stage IV, chronic intestinal vascular insufficiency, GERD, history of LIZZ, history of erythema nodosum, osteoporosis, fistula of vertebrae, iron deficiency anemia, history of ATN, gynecomastia, history of hematoma of left chest wall who lives at home and ambulates with a cane was brought in because of ongoing infection of the lumbosacral region. There seems to plan for I&D of the lumbosacral wound yesterday morning but because the patient been on Eliquis it was canceled. Seems after going home patient had fevers and he was brought back. Patient is alert and oriented x 3.. Patient denies any fevers. He says he was wobbly and not feeling well so he came back. Has some pain in the back. No abdominal pain. Normal bowel and bladder movements as per patient. Denies any chest pain or shortness of breath. No cough. No headache. No runny nose or sore throat. Vision is okay. Currently resting comfortably and hemodynamically stable. Past medical history. As mentioned above Past surgical history. Lumbar spine/cord surgery. Biopsy of the soft tissue neck. Bronchoscopy. Colonoscopy. Incision drainage of soft tissue neck left side, EGD. Insertion of lens prosthesis the left side, cervical lymphadenectomy repair of left inguinal hernia. Social history. . Quit smoking in 1965. Smoked 1 pack a day for 1 year. Alcohol occasional. No drug use. Family history. Brother had throat cancer. Brother had diabetes. Brother has CAD. Brother had liver cirrhosis. Father had heart attack. Allergies Allergy/AdvReac Type Severity Reaction Status Date / Time chlorhexidine Allergy Severe Redness, Verified 10/25/24 08:37 Skin Peeling for Weeks aztreonam Allergy Intermediate Hives Verified 10/25/24 08:37 Iodinated Contrast Media AdvReac Severe Kidney Verified 10/25/24 08:37 Failure Cephalosporins AdvReac Intermediate Gastrointestinal Verified 10/25/24 08:37 Upset ciprofloxacin AdvReac Intermediate Diarrhea Verified 10/25/24 08:37 levofloxacin AdvReac Intermediate Diarrhea Verified 10/25/24 08:37 Home Medications Medication Instructions Recorded Confirmed Type acetaminophen 325 mg tablet 325 mg PO QID PRN Pain (Scale 10/15/21 10/26/24 History (Tylenol) Score 1-3) albuterol sulfate 1.25 mg/3 mL 1.25 mg inhalation BID PRN 10/15/21 10/26/24 History solution for nebulization Shortness Of Breath apixaban 5 mg tablet (Eliquis) 5 mg PO BID 10/15/21 10/26/24 History levothyroxine 50 mcg tablet 50 mcg PO DAILY 10/15/21 10/26/24 History metoprolol succinate 25 mg 25 mg PO DAILY 10/15/21 10/26/24 History tablet,extended release 24 hr atorvastatin 20 mg tablet (Lipitor) 20 mg PO DAILY 03/19/22 10/26/24 History syringe with needle, safety 3 mL #100 ea 04/13/23 10/26/24 Rx 21 gauge x 1" (Monoject Safety Syringes) allopurinol 100 mg tablet 200 mg PO DAILY 03/16/24 10/26/24 History calcitriol 0.25 mcg capsule 0.25 mcg PO DAILY #30 caps 03/16/24 10/26/24 Rx testosterone cypionate 100 mg/mL 75 mg (0.75 mL) subcut Q7D #10 mL 05/31/24 10/26/24 Rx intramuscular oil folic acid 1 mg tablet 1 mg PO DAILY 09/29/24 10/26/24 History oxycodone 5 mg tablet 5 mg PO Q6H PRN Moderate Pain 09/29/24 10/26/24 History (Scale Score 5-6) sodium bicarbonate 650 mg tablet 650 mg PO AMHS 09/29/24 10/26/24 History umeclidinium 62.5 mcg-vilanterol 1 inh inhalation DAILY 09/29/24 10/26/24 History 25 mcg/actuation powdr for inhalation L.acidop,casei,lactis,rham-B.lact,blade 1 cap PO DAILY 30 days #30 caps 10/09/24 10/26/24 Rx 625 mg (10 billion cell) capsule (Advanced Probiotic) potassium chloride 20 mEq 20 meq PO UD #30 tabs 10/09/24 10/26/24 Rx tablet,extended release(part/cryst) prednisone 5 mg tablet 10 mg (2 x 5 mg) PO DAILY #30 tabs 10/09/24 10/26/24 Rx ciprofloxacin HCl 500 mg tablet 500 mg PO QAM 10/20/24 10/26/24 History (Cipro) furosemide 20 mg tablet (Lasix) 20 mg PO UD Edema 10/20/24 10/26/24 History Past Med/Surg History Problem List (Updated 10/26/24 @ 06:36 by Kassy Robins DO) Sepsis (Acute) CKD (chronic kidney disease) (Acute) ANCA-associated vasculitis Draining cutaneous sinus tract Vertebral osteomyelitis Infection associated with internal fixation device of spine Encounter for pre-operative examination Squamous cell carcinoma of neck Chronic anemia Open wound of lumbar region Osteoporosis Primary hypogonadism in male Peripheral edema Mediastinal lymphadenopathy (Chronic) "Follow by Dr Aguilar, pulomology, s/p EBUS and bx on 12/09/17, to f/u pulmonology and repeat CT scan" GERD (gastroesophageal reflux disease) (Chronic) Erythema nodosum (Chronic) Hypothyroidism (Chronic) Hypertension (Chronic) Lumbar stenosis with neurogenic claudication (Acute) Medical History (Updated 10/26/24 @ 06:36 by Kassy Robins DO) Gout Mediastinal lymphadenopathy "Follow by Dr Aguilar, pulomology, s/p EBUS and bx on 12/09/17, to f/u pulmonology and repeat CT scan" 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 Open wound of lumbar region "One part of the incision will not heal and has been draining for 2 weeks." as per Allergic rhinitis COPD (chronic obstructive pulmonary disease) [facility] Hx of squamous cell carcinoma 07/2024 Neck - Currently getting XRT at [facility] - Osteoporosis Osteomyelitis GERD (gastroesophageal reflux disease) Chronic anemia Gynecomastia Hemorrhoids Diverticulosis hx - found on colonoscopy H/O acute pancreatitis entered into EMR 08/21/2019 Paroxysmal A-fib Eliquis - S Cardiology Hyperglobulinemia hx of HLD (hyperlipidemia) Hypertension Herpes simplex infection hx - no issues at this time as per crusted, involving lips and right nares Generalized weakness Hypothyroid Peripheral edema Diastolic CHF S Cardiology Diabetes pts denies at this time - but pt can get low blood surgars "it'll need to be watched on the day of the procedure" CKD (chronic kidney disease), stage IV no dialysis Erythema nodosum ANCA positive, on chronic prednisone Surgical History Hx of colonoscopy Hx of squamous cell carcinoma excision History of cataract surgery bilateral History of back surgery multiple - 2017 [facility] - most recently I&D 10/03/24 [facility] H/O lymph node biopsy possible sarcoid History of bronchoscopy H/O left inguinal hernia repair Family History Mother Stroke Myocardial infarction Father Heart disease Social History Smoking Status: Former smoker Second Hand Exposure: No; Do You Dip or Chew Tobacco: No; Hx Alcohol Use: Yes Alcohol type: beer Alcohol Intake Frequency: 2-3 x/Week Hx Substance Use: No Preferred Language: [place] Communication Ability: Effective Avionics Manager Required: No Beliefs That Will Affect Care: None Current Living Situation: Spouse Other Information That Helps Us Care for You: No Feels Safe at Home: Yes Safety Concerns: Feels Safe At This Time Assistive Devices: Cane Review of Systems Review of Systems: All systems reviewed & are unremarkable except as noted in HPI & below Physical Exam Physical Exam: General- Not in acute distress Head- atraumatic Eyes- PERRL. ENT- oropharynx clear Neck- supple, no JVD. Lungs- clear to auscultation no wheezing or crackles. Heart- regular rhythm; no murmur, no gallop. Abdomen- normal bowel sounds, soft, nontender, no distension. Extremities- no pretibial edema, no erythema seen Neuro- alert, oriented x 3; PERRL,no facial palsy; no dysarthria; moves extremities Musculoskeletal. Dressing in lumbar region Results & Data Results & Data Vital Signs (Past 12 Hours) Vital Signs Temp Pulse Pulse Resp BP BP Pulse Ox 10/26/24 03:15 81 19 103/60 95 10/26/24 03:00 82 20 106/61 93 10/26/24 02:45 89 21 140/82 93 10/26/24 02:30 83 23 111/62 94 10/26/24 02:00 86 17 97/68 L 94 10/26/24 01:46 93 H 19 128/60 94 10/26/24 01:46 83 10/26/24 01:30 87 22 104/51 L 94 10/26/24 01:16 85 20 95 10/26/24 01:15 84 20 117/89 94 10/26/24 01:12 84 22 98/48 L 94 10/26/24 01:10 84 18 98/51 L 95 10/26/24 01:10 85 20 98/51 L 95 10/26/24 00:55 80 20 106/50 L 95 10/26/24 00:35 84 20 94 10/25/24 23:38 37.2 C 95 H 20 96/65 L O2 Del Method O2 Flow Rate 10/26/24 03:15 10/26/24 03:00 10/26/24 02:45 10/26/24 02:30 10/26/24 02:00 10/26/24 01:46 10/26/24 01:46 10/26/24 01:30 10/26/24 01:16 Room Air 0 10/26/24 01:15 Room Air 10/26/24 01:12 10/26/24 01:10 10/26/24 01:10 Room Air 10/26/24 00:55 Room Air 10/26/24 00:35 Room Air 0 10/25/24 23:38 Room Air Diagnostic Findings Laboratory Results WBC 8.42 K/ul (4.8-10.8) 10/26/24 00:15 RBC 3.40 M/uL (4.70-6.10) L 10/26/24 00:15 Hgb 11.3 g/dl (14.0-18.0) L 10/26/24 00:15 Hct 36.1 % (42.0-52.0) L 10/26/24 00:15 MCV 106.2 fL (80.0-100.0) H 10/26/24 00:15 MCH 33.2 pg (25.0-34.0) 10/26/24 00:15 MCHC 31.3 g/dL (32.0-36.0) L 10/26/24 00:15 RDW Std Deviation 58.5 fL (36.4-46.3) H 10/26/24 00:15 RDW Coeff of Rk 14.8 % (11.5-14.5) H 10/26/24 00:15 Plt Count 143 K/uL (130-400) 10/26/24 00:15 MPV 11.8 fL (9.4-12.4) 10/26/24 00:15 Immature Gran % (Auto) 2.4 % 10/26/24 00:15 Neut % (Auto) 82.2 % 10/26/24 00:15 Lymph % (Auto) 6.7 % 10/26/24 00:15 [place] % (Auto) 2.5 % 10/26/24 00:15 Eos % (Auto) 5.8 % 10/26/24 00:15 Baso % (Auto) 0.4 % 10/26/24 00:15 Neut # (Auto) 6.93 K/uL (1.40-6.50) H 10/26/24 00:15 Lymph # (Auto) 0.56 K/uL (1.20-3.40) L 10/26/24 00:15 [place] # (Auto) 0.21 K/uL (0.11-0.59) 10/26/24 00:15 Eos # (Auto) 0.49 K/uL (0.00-0.50) 10/26/24 00:15 Baso # (Auto) 0.03 K/uL (0.00-0.20) 10/26/24 00:15 Immature Gran # (Auto) 0.20 K/uL (0.01-0.20) 10/26/24 00:15 Sodium 139 mmol/L (136-145) 10/26/24 00:15 Potassium 4.3 mmol/L (3.5-5.1) 10/26/24 00:15 Chloride 108 mmol/L (98-107) H 10/26/24 00:15 Carbon Dioxide 25 mmol/L (21-32) 10/26/24 00:15 Anion Gap 6 (3-11) 10/26/24 00:15 BUN 78 mg/dl (6-23) H 10/26/24 00:15 Creatinine 5.13 mg/dl (0.6-1.4) H* D 10/26/24 00:15 Est Cr Clr Drug Dosing 10.9 ml/min 10/26/24 00:15 eGFR 10.76 10/26/24 00:15 BUN/Creatinine Ratio 15.2 (10-20) 10/26/24 00:15 Glucose 80 mg/dl (70-99(Fasting)) 10/26/24 00:15 Lactate 1.0 mmol/L (0.4-2.0) 10/26/24 01:14 Calcium 9.4 mg/dl (8.6-10.3) 10/26/24 00:15 Magnesium 1.4 mg/dl (1.7-2.4) L 10/26/24 00:15 Total Bilirubin 0.4 mg/dl (0.2-1.0) 10/26/24 00:15 Direct Bilirubin 0.0 mg/dl (0-0.2) 10/26/24 00:15 AST 20 U/L (13-39) 10/26/24 00:15 ALT 17 U/L (7-52) 10/26/24 00:15 Alkaline Phosphatase 43 U/L (34-104) 10/26/24 00:15 Troponin I High Sens 27.2 pg/ml (0-20) H 10/26/24 02:30 Total Protein 6.9 gm/dl (6.0-8.3) 10/26/24 00:15 Albumin 2.9 gm/dl (3.4-5.0) L 10/26/24 00:15 Procalcitonin 0.64 ng/ml (0-0.5) H 10/26/24 00:15 Urine Color Yellow 10/26/24 00:15 Urine Appearance Clear (Clear) 10/26/24 00:15 Urine pH 6.0 (4.5-7.5) 10/26/24 00:15 Ur Specific [place] 1.016 (1.000-1.030) 10/26/24 00:15 Urine Protein 2+ (Negative) H 10/26/24 00:15 Urine Glucose (UA) 2+ (Negative) H 10/26/24 00:15 Urine Ketones Negative (Negative) 10/26/24 00:15 Urine Blood Trace (Negative) H 10/26/24 00:15 Urine Nitrite Negative (Negative) 10/26/24 00:15 Urine Bilirubin Negative (Negative) 10/26/24 00:15 Urine Urobilinogen Negative (Negative) 10/26/24 00:15 Ur Leukocyte Esterase 1+ (Negative) H 10/26/24 00:15 Urine WBC (Auto) 11-20 /hpf (0-5) H 10/26/24 00:15 Urine RBC (Auto) 0-2 /hpf (0-2) 10/26/24 00:15 U Hyaline Cast (Auto) 6-10 /lpf (0-2) H 10/26/24 00:15 U Epithel Cells (Auto) 0-2 /hpf (0-2) 10/26/24 00:15 Urine Bacteria (Auto) None Seen (None Seen) 10/26/24 00:15 Adenovirus (PCR) Not Detected (NotDetected) 10/26/24 00:15 B. pertussis DNA (PCR) Not Detected (NotDetected) 10/26/24 00:15 B.parapertussis DNA PCR Not Detected (NotDetected) 10/26/24 00:15 C. pneumoniae DNA (PCR) Not Detected (NotDetected) 10/26/24 00:15 Coronavirus OC43 (PCR) Not Detected (NotDetected) 10/26/24 00:15 Coronavirus HKU1 (PCR) Not Detected (NotDetected) 10/26/24 00:15 Coronavirus 229E (PCR) Not Detected (NotDetected) 10/26/24 00:15 SARS-CoV-2 (PCR) Not Detected (NotDetected) 10/26/24 00:15 Coronavirus NL63 (PCR) Not Detected (NotDetected) 10/26/24 00:15 Human Metapneumovir PCR Not Detected (NotDetected) 10/26/24 00:15 Influenza Type A (PCR) Not Detected (NotDetected) 10/26/24 00:15 Influenza Type B (PCR) Not Detected (NotDetected) 10/26/24 00:15 M. pneumoniae (PCR) Not Detected (NotDetected) 10/26/24 00:15 Parainfluenza 1 (PCR) Not Detected (NotDetected) 10/26/24 00:15 Parainfluenza 2 (PCR) Not Detected (NotDetected) 10/26/24 00:15 Parainfluenza 3 (PCR) Not Detected (NotDetected) 10/26/24 00:15 Parainfluenza 4 (PCR) Not Detected (NotDetected) 10/26/24 00:15 RSV (PCR) Not Detected (NotDetected) 10/26/24 00:15 Entero/Rhino (PCR) Not Detected (NotDetected) 10/26/24 00:15 Impressions Chest X-Ray 10/25/24 23:56 EXAM: XR chest 1V portable CLINICAL HISTORY: SEPSIS TECHNIQUE: X-ray image of the chest is obtained in AP portable projection. COMPARISON: 10/01/2024 FINDINGS: Pulmonary Parenchyma: Reduced lung volumes. Suboptimal inspiration. Bilateral pulmonary interstitial thickening is noted. could be interstitial edema. Bilateral hilar prominence. Could be vascular congestion. Left basilar atelectasis/infiltrate. Haze is noted in the right lower zone, could be projectional. No evidence of consolidation or collapse. No evidence of pleural effusion . Right apical minimal pleural thickening. Heart and Mediastinum: Heart size and shape are normal. No mediastinal masses. No hilar or mediastinal lymphadenopathy. Bony Thorax: The bony thorax appears intact. Soft Tissues: Soft tissues overlying the chest wall are unremarkable. IMPRESSION: 1. No consolidation or pleural effusion. 2. Bilateral pulmonary interstitial thickening. could be interstitial edema/congestion. 3. Bilateral hilar prominence. Could be vascular congestion. 4. Left basilar atelectasis/infiltrate. 5. Hazy air space opacities in the right lower zone, could be infiltrate or projectional. 6. No acute cardiopulmonary abnormalities are identified. 7. No significant interval change. 8. CT chest is recommended if clinically indicated. Electronically signed by River Bliss 10-26-2024 01:44 AM ECG Additional Comments: ECG. Normal sinus rhythm rate of 91. No acute ST Changes seen. Code Status & VTE Plan VTE Prophylaxis Plan VTE Prophylaxis will be ordered: Yes
[2024-10-26] MEDS ORDERED: NITROGLYCERIN SL 0.4 MG/TAB TAB SL PRN (05:25)
[2024-10-26] MEDS ORDERED: POLYETHYLENE (MIRALAX) 17 GM PACK PO PRN (05:25)
[2024-10-26] MEDS ORDERED: oxyCODONE HCL IR 5 MG TAB (IMMEDIATE RELEASE) PO PRN (05:25)
[2024-10-26] MEDS ORDERED: ALBUTEROL 0.083% NEBU SOLN 3 ML VIAL INH PRN (05:51)
[2024-10-26] MEDS: SODIUM CHLORIDE 0.9% 1,000 ML IV SCH (05:53)
--- NOTE | 2024-10-26 06:28 | Emergency Department Note ---
Impression & Plan Sepsis, [facility] NAME: ELANA MATTA AGE: 79 SEX: Male INFORMANT: Patient ED PROVIDER(S): Kassy Robins DO CHIEF COMPLAINT: "Wobbly and cold" PLAN: Disposition: admit to the [facility] MEDICAL DECISION MAKING: this is a 79-year-old male patient who presents to the emergency department explaining that he began to feel wobbly and cold tonight. His noted a normal temperature initially but that it elevated to 100.2. Patient was seen here in the hospital earlier today for a scheduled washout in the OR of vertebral osteomyelitis but this was canceled once they realized he had not stopped his Eliquis. However, the patient had received a dose of vancomycin in the preop area. the explains that the patient's skin had turned red and thought this may be a reaction to the vancomycin. Patient is currently taking Cipro and Augmentin for diagnosed vertebral osteomyelitis. In reviewing previous cultures from the spine, the patient has Pseudomonas, Staph aureus and Bebe noted. The concern tonight is the patient's presentation of feeling cold and weak with development of a fever represents new infection and possible sepsis. Laboratory studies at this time reveal a white blood cell count of 8.4 with a lactate of 1 and a procalcitonin of 0.64. Bio fire testing was HEAD: No headache, dizziness, or head injury.. Magnesium level was low at 1.4 BUN is significantly elevated at 78 and creatinine is up to 5.13. H&H are stable. Hemoglobin is at 11.3. Troponin was 31. Chest x-ray was unremarkable. Urinalysis revealed glucose, blood, leukocyte esterase and white blood cells. The patient had received a 400 cc bolus of normal saline solution per EMS. His sepsis fluid volume for actual body weight was 2127 mL. He was ordered to have an additional 1750 mL here in the emergency department to meet his sepsis fluid requirements at 30 mL/kg. Patient remains hemodynamically stable here in the emergency department. On physical exam, the surgical incision on his back has very little surrounding erythema and no significant drainage/discharge. I discussed the case with the [place] [facility] and they will evaluate for further inpatient care at this time. they will decide what antibiotic to start the patient on after they review further cultures and sensitivities. Care/management discussed with: medicine and health service manager and [facility] Triage Nursing notes: reviewed and agree with them. Vital Signs: reviewed and unremarkable Additional History obtained from: patient's and daughter who are at the bedside Chronic Medical/Social Conditions affecting care: patient was diagnosed with vertebral osteomyelitis and has undergone spinal surgery. Cultures have grown out Pseudomonas, staff aureus and candidiasis. Prior/ Outside/ External records reviewed: Previous wound cultures and sensitivities, operative notes and inpatient records Differential Diagnosis: sepsis, pneumonia, infected surgical wound, UTI Diagnostics, independently interpreted by me: ECG: Normal sinus rhythm at a rate of [address] segment elevation or signs of ischemia. There is no ectopy. Cardiac Monitoring: Normal sinus rhythm at 90 Imaging studies: portable chest x-ray: No acute pulmonary infiltrates or consolidation as per my independent interpretation. HPI: 79 year old Male arrives for evaluation of Feeling cold and wobbly. patient's noted the patient seemed weak and had developed a bit of a fever. The patient was seen here earlier today and was supposed to undergo a washout of his lumbar spine from osteomyelitis but could not have the procedure done because he was still taking Eliquis.. PAST MEDICAL HISTORY: See Below, PAST SURGICAL HISTORY: See Below, SOCIAL HISTORY: patient lives with his , HOME MEDICATIONS: See list ALLERGIES: long list VITALS: See Below PHYSICAL EXAMINATION: HEENT: Head - normocephalic and atraumatic. Pupils are equal, round, and reactive to light. Extraocular eye muscles are intact, and sclera are anicteric. Nose - moist nasal mucosa without discharge. Mouth - moist buccal mucosa. Oropharynx is nonerythematous and there is no tonsillar exudate or edema noted. Neck: Supple; no cervical lymphadenopathy or nuchal rigidity Heart: Regular rate and rhythm. There is a normal S1 and S2 with no murmurs, clicks, or gallops appreciated. Lungs: Clear to auscultation bilaterally with no wheezes, rales, or rhonchi. Abdomen: Soft, completely nontender, nondistended, with good bowel sounds. There are no palpable pulsatile masses or hepatosplenomegaly. There is no guarding, rigidity, or rebound noted. Extremities: No evidence of cyanosis, clubbing, or edema. There are easily palpable peripheral pulses. Skin: extremely red, hot and dry with good turgor and no rashes. back: Surgical incision over the lumbar spine-no surrounding erythema or significant drainage from the incision Emergency Department course: The patient was evaluated in room B-6. A complete history and physical was performed. A septic protocol was performed. an order was placed for continuous cardiac monitoring. The patient was in a normal sinus rhythm at a rate of 90. A portable chest x-ray was performed. A twelve-lead EKG was obtained. Patient was bolused with a liter of normal saline solution. He was started on IV magnesium replacement. He was given an additional 750 cc of saline. Patient's and daughter were kept abreast of the situation. [facility] and [facility] will determine antibiotic choice for this patient. 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 osteomyelitis Infection associated with internal fixation device of spine Encounter for pre-operative examination Squamous cell carcinoma of neck Chronic anemia Open wound of lumbar region Osteoporosis Primary hypogonadism in male Peripheral edema Mediastinal lymphadenopathy (Chronic) "Follow by Dr Aguilar, pulomology, s/p EBUS and bx on 12/09/17, to f/u pulmonology and repeat CT scan" GERD (gastroesophageal reflux disease) (Chronic) Erythema nodosum (Chronic) Hypothyroidism (Chronic) Hypertension (Chronic) Lumbar stenosis with neurogenic claudication (Acute) Medical History Gout Mediastinal lymphadenopathy "Follow by Dr Aguilar, pulnigelogkim, s/p EBUS and bx on 12/09/17, to f/u pulmonology and repeat CT scan" 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 Open wound of lumbar region "One part of the incision will not heal and has been draining for 2 weeks." as per Allergic rhinitis COPD (chronic obstructive pulmonary disease) [facility] Hx of squamous cell carcinoma 07/2024 Neck - Currently getting XRT at [facility] - Osteoporosis Osteomyelitis GERD (gastroesophageal reflux disease) Chronic anemia Gynecomastia Hemorrhoids Diverticulosis hx - found on colonoscopy H/O acute pancreatitis entered into EMR 08/21/2019 Paroxysmal A-fib Eliquis - [facility] Hyperglobulinemia hx of HLD (hyperlipidemia) Hypertension Herpes simplex infection hx - no issues at this time as per crusted, involving lips and right nares Generalized weakness Hypothyroid Peripheral edema Diastolic CHF [facility] Diabetes pts denies at this time - but pt can get low blood surgars "it'll need to be watched on the day of the procedure" CKD (chronic kidney disease), stage IV no dialysis Erythema nodosum ANCA positive, on chronic prednisone Surgical History Hx of colonoscopy Hx of squamous cell carcinoma excision History of cataract surgery bilateral History of back surgery multiple - 2017 [facility] - most recently I&D 10/03/24 [facility] H/O lymph node biopsy possible sarcoid History of bronchoscopy H/O left inguinal hernia repair Family History Mother Stroke Myocardial infarction Father Heart disease Social History Smoking Status: Former smoker Second Hand Exposure: No; Do You Dip or Chew Tobacco: No; Hx Alcohol Use: Yes Alcohol type: beer Alcohol Intake Frequency: 2-3 x/Week Hx Substance Use: No Preferred Language: Korean Communication Ability: Effective Marine Fireman Required: No Beliefs That Will Affect Care: None Current Living Situation: Spouse Feels Safe at Home: Yes Assistive Devices: Cane Allergies Allergies Allergy/AdvReac Type Severity Reaction Status Date / Time chlorhexidine Allergy Severe Redness, Verified 10/25/24 08:37 Skin Peeling for Weeks aztreonam Allergy Intermediate Hives Verified 10/25/24 08:37 Iodinated Contrast Media AdvReac Severe Kidney Verified 10/25/24 08:37 Failure Cephalosporins AdvReac Intermediate Gastrointestinal Verified 10/25/24 08:37 Upset ciprofloxacin AdvReac Intermediate Diarrhea Verified 10/25/24 08:37 levofloxacin AdvReac Intermediate Diarrhea Verified 10/25/24 08:37 Home Meds Home Medications Medication Instructions Recorded Confirmed acetaminophen 325 mg tablet 325 mg PO QID PRN Pain (Scale 10/15/21 10/26/24 (Tylenol) Score 1-3) albuterol sulfate 1.25 mg/3 mL 1.25 mg inhalation BID PRN 10/15/21 10/26/24 solution for nebulization Shortness Of Breath apixaban 5 mg tablet (Eliquis) 5 mg PO BID 10/15/21 10/26/24 levothyroxine 50 mcg tablet 50 mcg PO DAILY 10/15/21 10/26/24 metoprolol succinate 25 mg 25 mg PO DAILY 10/15/21 10/26/24 tablet,extended release 24 hr atorvastatin 20 mg tablet (Lipitor) 20 mg PO DAILY 03/19/22 10/26/24 allopurinol 100 mg tablet 200 mg PO DAILY 03/16/24 10/26/24 folic acid 1 mg tablet 1 mg PO DAILY 09/29/24 10/26/24 oxycodone 5 mg tablet 5 mg PO Q6H PRN Moderate Pain 09/29/24 10/26/24 (Scale Score 5-6) sodium bicarbonate 650 mg tablet 650 mg PO AMHS 09/29/24 10/26/24 umeclidinium 62.5 mcg-vilanterol 1 inh inhalation DAILY 09/29/24 10/26/24 25 mcg/actuation powdr for inhalation ciprofloxacin HCl 500 mg tablet 500 mg PO QAM 10/20/24 10/26/24 (Cipro) furosemide 20 mg tablet (Lasix) 20 mg PO UD Edema 10/20/24 10/26/24 Previous Rx's Medication Instructions Recorded syringe with needle, safety 3 mL #100 ea 04/13/23 21 gauge x 1" (Monoject Safety Syringes) calcitriol 0.25 mcg capsule 0.25 mcg PO DAILY #30 caps 03/16/24 testosterone cypionate 100 mg/mL 75 mg (0.75 mL) subcut Q7D #10 mL 05/31/24 intramuscular oil L.acidop,casei,lactis,rham-B.lact,blade 1 cap PO DAILY 30 days #30 caps 10/09/24 625 mg (10 billion cell) capsule (Advanced Probiotic) potassium chloride 20 mEq 20 meq PO UD #30 tabs 10/09/24 tablet,extended release(part/cryst) prednisone 5 mg tablet 10 mg (2 x 5 mg) PO DAILY #30 tabs 10/09/24 Results & Data (ED) Vital Signs Vital Signs - 24 hr 10/25/24 23:38 10/26/24 00:35 10/26/24 00:55 Temperature 37.2 C Temperature Source Oral Pulse Rate 95 H 84 Pulse Rate [Right Finger] 80 Pulse Rate from SpO2 Sensor Pulse Rhythm Regular Regular Pulse Rhythm [Right Finger] Regular Pulse Strength Normal Pulse Strength [Right Finger] Normal Respiratory Rate 20 20 20 Respiratory Effort / Characteristics Non-Labored Spontaneous Non-Labored Spontaneous Respiratory Depth Normal Normal Respiratory Pattern Regular Regular Blood Pressure 96/65 L Blood Pressure [Left Arm] 106/50 L Blood Pressure Mean 75 Blood Pressure Mean [Left Arm] 68 Blood Pressure Position Lying Blood Pressure Position [Left Arm] Lying Pulse Oximetry 94 95 Oxygen Delivery Method Room Air Room Air Room Air Oxygen Flow Rate 0 Sepsis Recent Fever Within 48 Hours Yes Sepsis New/Unexplained Change in Mental Status No Sepsis Action Taken by Nursing No Action Required 10/26/24 01:10 10/26/24 01:10 10/26/24 01:12 Temperature Temperature Source Pulse Rate 84 84 Pulse Rate [Right Finger] 85 Pulse Rate from SpO2 Sensor Pulse Rhythm Pulse Rhythm [Right Finger] Regular Pulse Strength Pulse Strength [Right Finger] Normal Respiratory Rate 20 18 22 Respiratory Effort / Characteristics Non-Labored Spontaneous Respiratory Depth Normal Respiratory Pattern Regular Blood Pressure 98/51 L 98/48 L Blood Pressure [Left Arm] 98/51 L Blood Pressure Mean 62 54 Blood Pressure Mean [Left Arm] 66 Blood Pressure Position Blood Pressure Position [Left Arm] Lying Pulse Oximetry 95 95 94 Oxygen Delivery Method Room Air Oxygen Flow Rate Sepsis Recent Fever Within 48 Hours Sepsis New/Unexplained Change in Mental Status Sepsis Action Taken by Nursing 10/26/24 01:15 10/26/24 01:16 10/26/24 01:30 Temperature Temperature Source Pulse Rate 85 87 Pulse Rate [Right Finger] 84 Pulse Rate from SpO2 Sensor 86 Pulse Rhythm Regular Pulse Rhythm [Right Finger] Regular Pulse Strength Pulse Strength [Right Finger] Respiratory Rate 20 20 22 Respiratory Effort / Characteristics Non-Labored Spontaneous Respiratory Depth Normal Respiratory Pattern Regular Blood Pressure 104/51 L Blood Pressure [Left Arm] 117/89 Blood Pressure Mean 58 Blood Pressure Mean [Left Arm] 98 Blood Pressure Position Blood Pressure Position [Left Arm] Lying Pulse Oximetry 94 95 94 Oxygen Delivery Method Room Air Room Air Oxygen Flow Rate 0 Sepsis Recent Fever Within 48 Hours Sepsis New/Unexplained Change in Mental Status Sepsis Action Taken by Nursing 10/26/24 01:46 10/26/24 01:46 10/26/24 02:00 Temperature Temperature Source Pulse Rate 83 93 H 86 Pulse Rate [Right Finger] Pulse Rate from SpO2 Sensor Pulse Rhythm Pulse Rhythm [Right Finger] Pulse Strength Pulse Strength [Right Finger] Respiratory Rate 19 17 Respiratory Effort / Characteristics Respiratory Depth Respiratory Pattern Blood Pressure 128/60 97/68 L Blood Pressure [Left Arm] Blood Pressure Mean 91 72 Blood Pressure Mean [Left Arm] Blood Pressure Position Blood Pressure Position [Left Arm] Pulse Oximetry 94 94 Oxygen Delivery Method Oxygen Flow Rate Sepsis Recent Fever Within 48 Hours Sepsis New/Unexplained Change in Mental Status Sepsis Action Taken by Nursing 10/26/24 02:30 10/26/24 02:45 10/26/24 03:00 Temperature Temperature Source Pulse Rate 83 89 82 Pulse Rate [Right Finger] Pulse Rate from SpO2 Sensor 81 Pulse Rhythm Pulse Rhythm [Right Finger] Pulse Strength Pulse Strength [Right Finger] Respiratory Rate 23 21 20 Respiratory Effort / Characteristics Respiratory Depth Respiratory Pattern Blood Pressure 111/62 140/82 106/61 Blood Pressure [Left Arm] Blood Pressure Mean 71 101 76 Blood Pressure Mean [Left Arm] Blood Pressure Position Blood Pressure Position [Left Arm] Pulse Oximetry 94 93 93 Oxygen Delivery Method Oxygen Flow Rate Sepsis Recent Fever Within 48 Hours Sepsis New/Unexplained Change in Mental Status Sepsis Action Taken by Nursing 10/26/24 03:15 10/26/24 03:30 10/26/24 03:45 Temperature Temperature Source Pulse Rate 81 86 78 Pulse Rate [Right Finger] Pulse Rate from SpO2 Sensor 78 86 76 Pulse Rhythm Pulse Rhythm [Right Finger] Pulse Strength Pulse Strength [Right Finger] Respiratory Rate 19 19 20 Respiratory Effort / Characteristics Respiratory Depth Respiratory Pattern Blood Pressure 103/60 109/63 104/50 L Blood Pressure [Left Arm] Blood Pressure Mean 74 78 68 Blood Pressure Mean [Left Arm] Blood Pressure Position Blood Pressure Position [Left Arm] Pulse Oximetry 95 94 96 Oxygen Delivery Method Oxygen Flow Rate Sepsis Recent Fever Within 48 Hours Sepsis New/Unexplained Change in Mental Status Sepsis Action Taken by Nursing Laboratory Data 10/27/24 04:07 10/27/24 04:07 Lab Results 10/26/24 10/26/24 10/26/24 Range/Units 00:15 01:14 02:30 WBC 8.42 (4.8-10.8) K/ul RBC 3.40 L (4.70-6.10) M/uL Hgb 11.3 L (14.0-18.0) g/dl Hct 36.1 L (42.0-52.0) % MCV 106.2 H (80.0-100.0) fL MCH 33.2 (25.0-34.0) pg MCHC 31.3 L (32.0-36.0) g/dL RDW Std Deviation 58.5 H (36.4-46.3) fL RDW Coeff of Rk 14.8 H (11.5-14.5) % Plt Count 143 (130-400) K/uL MPV 11.8 (9.4-12.4) fL Immature Gran % (Auto) 2.4 % Neut % (Auto) 82.2 % Lymph % (Auto) 6.7 % [place] % (Auto) 2.5 % Eos % (Auto) 5.8 % Baso % (Auto) 0.4 % Neut # (Auto) 6.93 H (1.40-6.50) K/uL Lymph # (Auto) 0.56 L (1.20-3.40) K/uL [place] # (Auto) 0.21 (0.11-0.59) K/uL Eos # (Auto) 0.49 (0.00-0.50) K/uL Baso # (Auto) 0.03 (0.00-0.20) K/uL Immature Gran # (Auto) 0.20 (0.01-0.20) K/uL Sodium 139 (136-145) mmol/L Potassium 4.3 (3.5-5.1) mmol/L Chloride 108 H (98-107) mmol/L Carbon Dioxide 25 (21-32) mmol/L Anion Gap 6 (3-11) BUN 78 H (6-23) mg/dl Creatinine 5.13 H* D (0.6-1.4) mg/dl Est Cr Clr Drug Dosing 10.9 ml/min eGFR 10.76 BUN/Creatinine Ratio 15.2 (10-20) Glucose 80 (70-99(Fasting)) mg/dl Lactate 1.0 (0.4-2.0) mmol/L Calcium 9.4 (8.6-10.3) mg/dl Magnesium 1.4 L (1.7-2.4) mg/dl Total Bilirubin 0.4 (0.2-1.0) mg/dl Direct Bilirubin 0.0 (0-0.2) mg/dl AST 20 (13-39) U/L ALT 17 (7-52) U/L Alkaline Phosphatase 43 (34-104) U/L Troponin I High Sens 31.0 H 27.2 H (0-20) pg/ml Total Protein 6.9 (6.0-8.3) gm/dl Albumin 2.9 L (3.4-5.0) gm/dl Procalcitonin 0.64 H (0-0.5) ng/ml Urine Color Yellow Urine Appearance Clear (Clear) Urine pH 6.0 (4.5-7.5) Ur Specific [place] 1.016 (1.000-1.030) Urine Protein 2+ H (Negative) Urine Glucose (UA) 2+ H (Negative) Urine Ketones Negative (Negative) Urine Blood Trace H (Negative) Urine Nitrite Negative (Negative) Urine Bilirubin Negative (Negative) Urine Urobilinogen Negative (Negative) Ur Leukocyte Esterase 1+ H (Negative) Urine WBC (Auto) 11-20 H (0-5) /hpf Urine RBC (Auto) 0-2 (0-2) /hpf U Hyaline Cast (Auto) 6-10 H (0-2) /lpf U Epithel Cells (Auto) 0-2 (0-2) /hpf Urine Bacteria (Auto) None Seen (None Seen) Adenovirus (PCR) Not Detected (NotDetected) B. pertussis DNA (PCR) Not Detected (NotDetected) B.parapertussis DNA PCR Not Detected (NotDetected) C. pneumoniae DNA (PCR) Not Detected (NotDetected) Coronavirus OC43 (PCR) Not Detected (NotDetected) Coronavirus HKU1 (PCR) Not Detected (NotDetected) Coronavirus 229E (PCR) Not Detected (NotDetected) SARS-CoV-2 (PCR) Not Detected (NotDetected) Coronavirus NL63 (PCR) Not Detected (NotDetected) Human Metapneumovir PCR Not Detected (NotDetected) Influenza Type A (PCR) Not Detected (NotDetected) Influenza Type B (PCR) Not Detected (NotDetected) M. pneumoniae (PCR) Not Detected (NotDetected) Parainfluenza 1 (PCR) Not Detected (NotDetected) Parainfluenza 2 (PCR) Not Detected (NotDetected) Parainfluenza 3 (PCR) Not Detected (NotDetected) Parainfluenza 4 (PCR) Not Detected (NotDetected) RSV (PCR) Not Detected (NotDetected) Entero/Rhino (PCR) Not Detected (NotDetected) Administered Medications Acetaminophen (Acetaminophen 325 Mg Tab) 650 mg PO Q4H PRN PRN Reason: Pain or Fever Stop: 11/25/24 05:24 Last Admin: 10/26/24 12:18 Dose: 650 mg Documented By: NUVIAW Allopurinol (Allopurinol 100 Mg Tab) 200 mg PO DAILY [facility] Stop: 11/25/24 08:59 Last Admin: 10/27/24 08:00 Dose: 200 mg Documented By: Admin: 10/26/24 08:23 Dose: 200 mg Documented By: CORINA Calcitriol (Calcitriol 0.25 Mcg Capsule) 0.25 mcg PO DAILY [facility] Stop: 11/25/24 08:59 Last Admin: 10/27/24 08:01 Dose: 0.25 mcg Documented By: Admin: 10/26/24 08:23 Dose: 0.25 mcg Documented By: CORINA Fludrocortisone Acetate (Fludrocortisone Acetate 0.1 Mg Tab) 0.1 mg PO QAM [facility] Stop: 11/25/24 16:59 Last Admin: 10/27/24 08:01 Dose: 0.1 mg Documented By: Admin: 10/26/24 18:34 Dose: 0.1 mg Documented By: MIKE Folic Acid (Folic Acid 1 Mg Tab) 1 mg PO DAILY [facility] Stop: 11/25/24 08:59 Last Admin: 10/27/24 08:01 Dose: 1 mg Documented By: Admin: 10/26/24 08:23 Dose: 1 mg Documented By: CORINA Daptomycin 400 mg/ Syringe 8 mls @ 4 mls/min IV Q48H [facility]; Protocol Stop: 12/07/24 03:59 Last Admin: 10/26/24 04:50 Dose: 4 mls/min Documented By: PAM Piperacillin Sod/Tazobactam Sod (Zosyn) 4.5 gm in 100 mls @ 25 mls/hr IV Q12H [facility]; Protocol Stop: 12/07/24 11:59 Last Infusion: 10/27/24 15:17 Dose: Infused Documented By: Admin: 10/27/24 11:17 Dose: 25 mls/hr Documented By: Infusion: 10/27/24 03:45 Dose: Infused Documented By: Admin: 10/26/24 23:45 Dose: 25 mls/hr Documented By: Infusion: 10/26/24 16:10 Dose: Infused Documented By: Admin: 10/26/24 12:18 Dose: 25 mls/hr Documented By: CORINA Hydrocortisone Sodium (Succinate 50 mg/ Syringe) 1 mls @ 4 mls/min IV Q6H [facility] Stop: 11/25/24 16:59 Last Admin: 10/27/24 16:51 Dose: 4 mls/min Documented By: Admin: 10/27/24 11:17 Dose: 4 mls/min Documented By: Admin: 10/27/24 05:16 Dose: 4 mls/min Documented By: Admin: 10/26/24 22:45 Dose: 4 mls/min Documented By: Admin: 10/26/24 17:49 Dose: 4 mls/min Documented By: DONALD Acetaminophen (Ofirmev) 1,000 mg in 100 mls @ 400 mls/hr IV Q8H PRN PRN Reason: while NPO or unable to take PO Stop: 10/29/24 18:51 Last Infusion: 10/27/24 08:03 Dose: Infused Documented By: Admin: 10/27/24 07:48 Dose: 400 mls/hr Documented By: Infusion: 10/26/24 19:23 Dose: Infused Documented By: Admin: 10/26/24 19:08 Dose: 400 mls/hr Documented By: PARDEEP Insulin Aspart (Insulin Aspart Per Unit Charge) 0 units SC ACHS [facility] Stop: 11/25/24 20:59 Last Admin: 10/27/24 16:51 Dose: 4 units Documented By: MIKE Co-signed By: ROD Admin: 10/27/24 11:59 Dose: 4 units Documented By: MIKE Co-signed By: ROD Admin: 10/27/24 06:55 Dose: Not Given Documented By: Admin: 10/26/24 21:01 Dose: 3 units Documented By: PARDEEP Co-signed By: FREDISG Lactobacillus Acidophilus (Advanced Probiotic 625 Mg Capsule) 1,250 mg PO DAILY [facility] Stop: 11/25/24 08:59 Last Admin: 10/27/24 08:01 Dose: 1,250 mg Documented By: Admin: 10/26/24 08:22 Dose: 1,250 mg Documented By: CORINA Levothyroxine Sodium (Levothyroxine Sodium 50 Mcg Tablet) 50 mcg PO DAILYBB [facility] Stop: 11/25/24 06:29 Last Admin: 10/27/24 05:17 Dose: Not Given Documented By: Admin: 10/26/24 08:23 Dose: 50 mcg Documented By: CORINA Metoprolol Succinate (Metoprolol Succ 25mg Ext Rel Tab) 25 mg PO DAILY [facility] Stop: 11/25/24 08:59 Last Admin: 10/26/24 08:22 Dose: 25 mg Documented By: CORINA Midodrine (Midodrine Hcl 10 Mg Tab) 10 mg PO TID@0800,1200,1700 [facility] Stop: 11/25/24 16:59 Last Admin: 10/27/24 16:52 Dose: 10 mg Documented By: Admin: 10/27/24 11:17 Dose: 10 mg Documented By: Admin: 10/27/24 07:49 Dose: 10 mg Documented By: Admin: 10/26/24 18:33 Dose: 10 mg Documented By: MIKE Sodium Bicarbonate (Sodium Bicarbonate 650 Mg Tab) 650 mg PO AMHS [facility] Stop: 11/25/24 08:59 Last Admin: 10/27/24 08:01 Dose: 650 mg Documented By: Admin: 10/26/24 20:53 Dose: 650 mg Documented By: Admin: 10/26/24 08:23 Dose: 650 mg Documented By: CORINA Umeclidinium/Vilanterol (Umeclidinium/Vilanterol 62.5/25mcg 7 Puffs/Inhaler) 1 puffs INH DAILY [facility] Stop: 11/25/24 08:59 Last Admin: 10/27/24 09:39 Dose: 1 puffs Documented By: Admin: 10/26/24 08:23 Dose: 1 puffs Documented By: CORINA Discontinued Medications Sodium Chloride (Nss) 500 mls @ 999 mls/hr IV .Q31M ONE Stop: 12/19/24 00:26 Last Infusion: 10/26/24 02:49 Dose: Infused Documented By: Admin: 10/26/24 00:31 Dose: 999 mls/hr Documented By: PAM Sodium Chloride (Nss) 1,000 mls @ 999 mls/hr IV .Q1H1M ONE Stop: 10/26/24 02:18 Last Infusion: 10/26/24 02:49 Dose: Infused Documented By: Admin: 10/26/24 01:48 Dose: 999 mls/hr Documented By: PAM Magnesium Sulfate/Dextrose (Magnesium Sulfate / D5w) 1 gm in 100 mls @ 100 mls/hr IV NOW STA Stop: 10/26/24 02:24 Last Infusion: 10/26/24 02:49 Dose: Infused Documented By: Admin: 10/26/24 01:48 Dose: 100 mls/hr Documented By: PAM Sodium Chloride (Nss) 250 mls @ 999 mls/hr IV .Q16M ONE Stop: 10/26/24 02:10 Last Infusion: 10/26/24 04:57 Dose: Infused Documented By: Admin: 10/26/24 02:00 Dose: 999 mls/hr Documented By: PAM Magnesium Sulfate/Dextrose (Magnesium Sulfate / D5w) 1 gm in 100 mls @ 50 mls/hr IV ONE ONE Stop: 10/26/24 05:18 Last Infusion: 10/26/24 05:45 Dose: Infused Documented By: Admin: 10/26/24 03:38 Dose: 50 mls/hr Documented By: PAM Piperacillin Sod/Tazobactam Sod (Zosyn) 4.5 gm in 100 mls @ 200 mls/hr IV NOW STA; Protocol Stop: 10/26/24 03:56 Last Infusion: 10/26/24 04:49 Dose: Infused Documented By: Admin: 10/26/24 03:38 Dose: 200 mls/hr Documented By: PAM Sodium Chloride (Nss) 1,000 mls @ 250 mls/hr IV .Q4H [facility] Stop: 10/27/24 00:23 Last Infusion: 10/26/24 18:00 Dose: Infused Documented By: Admin: 10/26/24 15:22 Dose: 250 mls/hr Documented By: Infusion: 10/26/24 15:22 Dose: Infused Documented By: Infusion: 10/26/24 13:30 Dose: 250 mls/hr Documented By: Admin: 10/26/24 05:53 Dose: 50 mls/hr Documented By: PAM Hydrocortisone Sodium (Succinate 100 mg/ Syringe) 2 mls @ 4 mls/min IV ONE ONE Stop: 10/26/24 14:16 Last Admin: 10/26/24 14:21 Dose: 4 mls/min Documented By: CORINA Sodium Chloride (Nss) 1,000 mls @ 999 mls/hr IV .Q1H1M ONE Stop: 10/26/24 16:44 Last Infusion: 10/26/24 18:00 Dose: Infused Documented By: Admin: 10/26/24 16:07 Dose: 999 mls/hr Documented By: CORINA Phenylephrine HCl (Phenylephrine/Nss) 25 mg in 250 mls @ 21.87 mls/hr IV .[id number] [facility]; Protocol Stop: 11/25/24 16:44 Last Titration: 10/27/24 16:12 Dose: Infused Documented By: MIKE Co-signed By: NMS Admin: 10/27/24 13:50 Dose: Not Given Documented By: Titration: 10/27/24 07:49 Dose: 0 mcg/kg/min, 0 mls/hr Documented By: KJL Co-signed By: CAM Titration: 10/27/24 07:03 Dose: 0.1 mcg/kg/min, 4.4 mls/hr Documented By: KJL Co-signed By: TP Titration: 10/27/24 06:00 Dose: 0.1 mcg/kg/min, 4.4 mls/hr Documented By: TP Co-signed By: BK Titration: 10/27/24 04:30 Dose: 0.2 mcg/kg/min, 8.7 mls/hr Documented By: TP Co-signed By: MPC Titration: 10/26/24 22:22 Dose: 0.3 mcg/kg/min, 13.1 mls/hr Documented By: TP Co-signed By: ESG Admin: 10/26/24 20:52 Dose: 0.5 mcg/kg/min, 21.9 mls/hr Documented By: TP Co-signed By: MPC Sodium Bicarbonate 150 meq/ (Sterile Water) 1,150 mls @ 100 mls/hr IV .[id number] ZAFAR Stop: 10/27/24 16:30 Last Infusion: 10/27/24 13:50 Dose: Infused Documented By: Admin: 10/27/24 05:15 Dose: 100 mls/hr Documented By: Infusion: 10/27/24 05:15 Dose: Infused Documented By: Admin: 10/26/24 17:49 Dose: 100 mls/hr Documented By: DONALD Insulin Aspart (Insulin Aspart Per Unit Charge) 8 units SC NOW STA Stop: 10/26/24 18:44 Last Admin: 10/26/24 19:09 Dose: 8 units Documented By: TP Co-signed By: DEJAN Miscellaneous (Icu Protocol For Hyperglycemia) 1 each N/A ACHS ZAFAR Stop: 10/28/24 17:53 Last Admin: 10/26/24 18:35 Dose: 1 each Documented By: MIKE Prednisone (Prednisone 10 Mg Tablet) 10 mg PO DAILY ZAFAR Stop: 11/25/24 08:59 Last Admin: 10/26/24 08:23 Dose: 10 mg Documented By: CAW Sodium Bicarbonate (Sodium Bicarb 8.4% Inj 50 Meq/50 Ml Syr) 50 meq IV NOW STA Stop: 10/26/24 17:18 Last Admin: 10/26/24 17:51 Dose: 50 meq Documented By: DONALD Imaging Data Radiologist's Impression: Chest X-Ray 10/25/24 23:56 EXAM: XR chest 1V portable CLINICAL HISTORY: SEPSIS TECHNIQUE: X-ray image of the chest is obtained in AP portable projection. COMPARISON: 10/01/2024 FINDINGS: Pulmonary Parenchyma: Reduced lung volumes. Suboptimal inspiration. Bilateral pulmonary interstitial thickening is noted. could be interstitial edema. Bilateral hilar prominence. Could be vascular congestion. Left basilar atelectasis/infiltrate. Haze is noted in the right lower zone, could be projectional. No evidence of consolidation or collapse. No evidence of pleural effusion . Right apical minimal pleural thickening. Heart and Mediastinum: Heart size and shape are normal. No mediastinal masses. No hilar or mediastinal lymphadenopathy. Bony Thorax: The bony thorax appears intact. Soft Tissues: Soft tissues overlying the chest wall are unremarkable. IMPRESSION: 1. No consolidation or pleural effusion. 2. Bilateral pulmonary interstitial thickening. could be interstitial edema/congestion. 3. Bilateral hilar prominence. Could be vascular congestion. 4. Left basilar atelectasis/infiltrate. 5. Hazy air space opacities in the right lower zone, could be infiltrate or projectional. 6. No acute cardiopulmonary abnormalities are identified. 7. No significant interval change. 8. CT chest is recommended if clinically indicated. Electronically signed by River Bliss 10-26-2024 01:44 AM Discharge Plan Visit Data Chief Complaint: Infection Stated Complaint: FEVER, POSSIBLE SEPSIS ED Provider: Kassy Robins Discharge Problem: Sepsis, Osteomyelitis of vertebra Patient Disposition: Admitted As Inpatient Discharge Instructions Interventions: ED Discharge Assessment Last Done: 10/26/24 17:44
[2024-10-26 07:54] LABS: Hematocrit (blood only) 36.9 % (42.0-52.0); Hemoglobin 11.7 g/dl (14.0-18.0); Mean Corpuscular Hemoglobin 33.6 pg (25.0-34.0); Mean Corpuscular Hgb Conc 31.7 g/dL (32.0-36.0); Mean Platelet Volume 11.5 fL (9.4-12.4); Platelet Count 120 K/uL (130-400); RDW Standard Deviation 58.6 fL (36.4-46.3); Red Blood Count 3.48 M/uL (4.70-6.10); White Blood Count 4.54 K/ul (4.8-10.8)
[2024-10-26 08:16] LABS: Basophils # (auto) 0.02 K/uL (0.00-0.20); Basophils % (auto) 0.4 %; Eosinophils # (auto) 0.23 K/uL (0.00-0.50); Eosinophils % (auto) 5.1 %; Immature Granulocytes # (auto) 0.08 K/uL (0.01-0.20); Immature Granulocytes % (auto) 1.8 %; Lymphocytes # (auto) 0.55 K/uL (1.20-3.40); Lymphocytes % (auto) 12.1 %; Monocytes # (auto) 0.12 K/uL (0.11-0.59); Monocytes % (auto) 2.6 %; Neutrophils # (auto) 3.54 K/uL (1.40-6.50)
[2024-10-26] MEDS: METOPROLOL SUCC 25MG EXT REL TAB PO SCH (08:22)
[2024-10-26] MEDS: ADVANCED PROBIOTIC 625 MG CAPSULE PO SCH (08:22)
[2024-10-26] MEDS: UMECLIDINIUM/VILANTEROL 62.5/25MCG 7 PUFFS/INHALER INH SCH (08:23)
[2024-10-26] MEDS: LEVOTHYROXINE SODIUM 50 MCG TABLET PO SCH (08:23)
[2024-10-26] MEDS: SODIUM BICARBONATE 650 MG TAB PO SCH (08:23)
[2024-10-26] MEDS: predniSONE 10 MG TABLET PO SCH (08:23)
[2024-10-26] MEDS: allopurinoL 100 MG TAB PO SCH (08:23)
[2024-10-26] MEDS: CALCITRIOL 0.25 MCG CAPSULE PO SCH (08:23)
[2024-10-26] MEDS: FOLIC ACID 1 MG TAB PO SCH (08:23)
[2024-10-26 08:25] LABS: BUN Creatinine Ratio 15.4 (10-20); Calcium 8.8 mg/dl (8.6-10.3); Magnesium 1.8 mg/dl (1.7-2.4); Potassium 4.8 mmol/L (3.5-5.1)
--- NOTE | 2024-10-26 10:01 | Consultation ---
Date of Consultation October 26, 2024 Assessment & Plan (1) Sepsis: I have briefly discussed this case with Dr. Irene this morning. He is being admitted to the medical service. We can hold his anticoagulation. Current plan is to perform repeat I&D thoracic spine at some point next week. I have relayed this to the patient. All questions were answered. History of Present Illness Attending Physician: Cristine Arthur MD History of Present Illness Kennedy presented to the ER overnight with complaints of dizziness, feeling cold and wobbly. He was scheduled yesterday for an I&D but did not hold his Eliquis therefore it was canceled. No change in complaints Allergies Allergy/AdvReac Type Severity Reaction Status Date / Time chlorhexidine Allergy Severe Redness, Verified 10/25/24 08:37 Skin Peeling for Weeks aztreonam Allergy Intermediate Hives Verified 10/25/24 08:37 Iodinated Contrast Media AdvReac Severe Kidney Verified 10/25/24 08:37 Failure Cephalosporins AdvReac Intermediate Gastrointestinal Verified 10/25/24 08:37 Upset ciprofloxacin AdvReac Intermediate Diarrhea Verified 10/25/24 08:37 levofloxacin AdvReac Intermediate Diarrhea Verified 10/25/24 08:37 Home Medications Medication Instructions Recorded Confirmed Type acetaminophen 325 mg tablet 325 mg PO QID PRN Pain (Scale 10/15/21 10/26/24 History (Tylenol) Score 1-3) albuterol sulfate 1.25 mg/3 mL 1.25 mg inhalation BID PRN 10/15/21 10/26/24 History solution for nebulization Shortness Of Breath apixaban 5 mg tablet (Eliquis) 5 mg PO BID 10/15/21 10/26/24 History levothyroxine 50 mcg tablet 50 mcg PO DAILY 10/15/21 10/26/24 History metoprolol succinate 25 mg 25 mg PO DAILY 10/15/21 10/26/24 History tablet,extended release 24 hr atorvastatin 20 mg tablet (Lipitor) 20 mg PO DAILY 03/19/22 10/26/24 History syringe with needle, safety 3 mL #100 ea 04/13/23 10/26/24 Rx 21 gauge x 1" (Monoject Safety Syringes) allopurinol 100 mg tablet 200 mg PO DAILY 03/16/24 10/26/24 History calcitriol 0.25 mcg capsule 0.25 mcg PO DAILY #30 caps 03/16/24 10/26/24 Rx testosterone cypionate 100 mg/mL 75 mg (0.75 mL) subcut Q7D #10 mL 05/31/24 10/26/24 Rx intramuscular oil folic acid 1 mg tablet 1 mg PO DAILY 09/29/24 10/26/24 History oxycodone 5 mg tablet 5 mg PO Q6H PRN Moderate Pain 09/29/24 10/26/24 History (Scale Score 5-6) sodium bicarbonate 650 mg tablet 650 mg PO AMHS 09/29/24 10/26/24 History umeclidinium 62.5 mcg-vilanterol 1 inh inhalation DAILY 09/29/24 10/26/24 History 25 mcg/actuation powdr for inhalation L.acidop,casei,lactis,rham-B.lact,blade 1 cap PO DAILY 30 days #30 caps 10/09/24 10/26/24 Rx 625 mg (10 billion cell) capsule (Advanced Probiotic) potassium chloride 20 mEq 20 meq PO UD #30 tabs 10/09/24 10/26/24 Rx tablet,extended release(part/cryst) prednisone 5 mg tablet 10 mg (2 x 5 mg) PO DAILY #30 tabs 10/09/24 10/26/24 Rx ciprofloxacin HCl 500 mg tablet 500 mg PO QAM 10/20/24 10/26/24 History (Cipro) furosemide 20 mg tablet (Lasix) 20 mg PO UD Edema 10/20/24 10/26/24 History Patient History Medical History Gout Mediastinal lymphadenopathy "Follow by Dr Aguilar, pulomology, s/p EBUS and bx on 12/09/17, to f/u pulmonology and repeat CT scan" 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 Open wound of lumbar region "One part of the incision will not heal and has been draining for 2 weeks." as per Allergic rhinitis COPD (chronic obstructive pulmonary disease) [facility] Pulm Hx of squamous cell carcinoma 07/2024 Neck - Currently getting XRT at [facility] - Osteoporosis Osteomyelitis GERD (gastroesophageal reflux disease) Chronic anemia Gynecomastia Hemorrhoids Diverticulosis hx - found on colonoscopy H/O acute pancreatitis entered into EMR 08/21/2019 Paroxysmal A-fib Eliquis - S Cardiology Hyperglobulinemia hx of HLD (hyperlipidemia) Hypertension Herpes simplex infection hx - no issues at this time as per crusted, involving lips and right nares Generalized weakness Hypothyroid Peripheral edema Diastolic CHF [facility] Cardiology Diabetes pts denies at this time - but pt can get low blood surgars "it'll need to be watched on the day of the procedure" CKD (chronic kidney disease), stage IV no dialysis Erythema nodosum ANCA positive, on chronic prednisone Surgical History Hx of colonoscopy Hx of squamous cell carcinoma excision History of cataract surgery bilateral History of back surgery multiple - 2018 [facility] - most recently I&D 10/03/24 [facility] H/O lymph node biopsy possible sarcoid History of bronchoscopy H/O left inguinal hernia repair Family History Mother Stroke Myocardial infarction Father Heart disease Social History Smoking Status: Former smoker Second Hand Exposure: No; Do You Dip or Chew Tobacco: No; Hx Alcohol Use: Yes Alcohol type: beer Alcohol Intake Frequency: 2-3 x/Week Hx Substance Use: No Preferred Language: [place] Islander Communication Ability: Effective Map Mounter Required: No Beliefs That Will Affect Care: None Current Living Situation: Spouse Other Information That Helps Us Care for You: No Feels Safe at Home: Yes Safety Concerns: Feels Safe At This Time Assistive Devices: Cane Review of Systems Review of Systems: All systems reviewed & are unremarkable except as noted in HPI & below Physical Exam Physical Exam: I saw him in the ER and bay B6. He is resting. Strength unchanged bilateral lower extremities Incision is unchanged from yesterday. Some drainage. No active purulence Results & Data Vital Signs (Past 12 Hours) Vital Signs Temp Pulse Pulse Resp BP BP Pulse Ox 10/26/24 08:45 10/26/24 07:13 36.6 C 79 20 119/56 L 100 10/26/24 07:03 70 10/26/24 07:00 119/56 L 10/26/24 07:00 84 23 119/56 L 100 10/26/24 06:00 80 21 131/76 100 10/26/24 05:39 66 10/26/24 05:30 69 20 111/56 L 100 10/26/24 05:15 68 17 116/65 100 10/26/24 05:00 72 16 99/63 L 100 10/26/24 04:45 68 24 95/60 L 100 10/26/24 04:30 72 20 107/56 L 98 10/26/24 04:15 72 18 92/49 L 100 10/26/24 03:45 78 20 104/50 L 96 10/26/24 03:30 86 19 109/63 94 10/26/24 03:15 81 19 103/60 95 10/26/24 03:00 82 20 106/61 93 10/26/24 02:45 89 21 140/82 93 10/26/24 02:30 83 23 111/62 94 10/26/24 02:00 86 17 97/68 L 94 10/26/24 01:46 93 H 19 128/60 94 10/26/24 01:46 83 10/26/24 01:30 87 22 104/51 L 94 10/26/24 01:16 85 20 95 10/26/24 01:15 84 20 117/89 94 10/26/24 01:12 84 22 98/48 L 94 10/26/24 01:10 84 18 98/51 L 95 10/26/24 01:10 85 20 98/51 L 95 10/26/24 00:55 80 20 106/50 L 95 10/26/24 00:35 84 20 94 10/25/24 23:38 37.2 C 95 H 20 96/65 L Pulse Ox O2 Del Method O2 Del Method O2 Flow Rate O2 Flow Rate 10/26/24 08:45 98 Nasal Cannula 2 10/26/24 07:13 Nasal Cannula 2 10/26/24 07:03 10/26/24 07:00 10/26/24 07:00 10/26/24 06:00 10/26/24 05:39 10/26/24 05:30 10/26/24 05:15 10/26/24 05:00 10/26/24 04:45 10/26/24 04:30 10/26/24 04:15 10/26/24 03:45 10/26/24 03:30 10/26/24 03:15 10/26/24 03:00 10/26/24 02:45 10/26/24 02:30 10/26/24 02:00 10/26/24 01:46 10/26/24 01:46 10/26/24 01:30 10/26/24 01:16 Room Air 0 10/26/24 01:15 Room Air 10/26/24 01:12 10/26/24 01:10 10/26/24 01:10 Room Air 10/26/24 00:55 Room Air 10/26/24 00:35 Room Air 0 10/25/24 23:38 Room Air
--- OUTSIDE RECORDS SUMMARY | 2024-10-26 11:22 | External Medical Summary | Summary of Care ---
Author Name Unknown Organization [facility] Address [address] [place] [address] Phone [phone] Care Team Providers Care Roof Slater Name Role Phone Fuentes Ashton MD Primary Care Provider [phone] Encounter Details Date Type Department Care Team (Late st Contact Info) Description 10/25/2024 12:30 PM EST Scheduled Telephone Care Coordination and Integration [address] [place] [address] Jonah Scott [facility] [address], [place] [id number] Allergies Active Allergy Reactions Criticality Noted Date Comments Aztreonam Hives Medium 10/11/2019 Cephalosporins Rash 05/24/2017 Tolerated cefazolin during August 2024 admission Chlorhexidine Hives,Rash High 01/02/2022 Full body red rash; "skin peeled completely off" Ciprofloxacin Diarrhea Medium 01/28/2015 Iodinated Contrast Media Abdominal pain High 019 Acute kidney failure Levofloxacin Rash Low 07/28/2019 documented as of this encounter (statuses as of 10/25/2024) Medications Apixaban 5 MG Oral Tablet (Eliquis)Indicati [...] Release (PriLOSEC)Indicat ions:Gastroesopha geal reflux disease without esophagitis,ocean transportation intermediary (current) [...] 4 11:55 AM EDT 03/31/20 24 Active Additional Information Patient taking differently: 60 mgOral,(No frequency reported), (No PRN reasons reported), Take 60 mg Wed, Wed and Wednesday, Reported on 10/23/2024 Sodium Bicarbonate 650 MG Oral Tablet Take 1 Tablet by mouth in the morning and 1 Tablet before bedtime. 180 Tablet 3 4 6:28 PM EDT 04/19/20 24 Active predniSONE 5 MG Oral Tablet (Deltasone)Indica tions:Erythema nodosum Take 1.5 Tablets by mouth in the morning. 135 Tablet 4 4 10:49 AM EDT 05/03/20 24 Active Additional Information Patient taking differently: 10 mgOral Daily(AM), Reported on 10/23/2024 Calcitriol 0.25 MCG Oral Capsule (Rocaltrol)Indica tions:Renal osteodystrophy Take 1 Capsule by mouth in the morning. 30 Capsule 5 05/23/20 24 Active Albuterol Sulfate 108 (90 Base) MCG/ACT Inhalation Aerosol Powder Breath ActivatedIndicati ons:COPD, moderate ([facility]) Inhale 2 Puffs by mouth every 4 hours as needed for Shortness of Breath. 1 Each 11 07/06/20 24 Active Additional Information Patient not taking.Reported on 10/23/2024 Albuterol Sulfate (2.5 MG/3ML) 0.083% Inhalation Nebulization Solution (Proventil)Indica tions:COPD, group C, by GOLD 2017 classification ([facility]) Inhale 1 Vial via nebulizer every 4 hours as needed for Shortness of Breath or Wheezing. 360 mL 11 07/06/20 24 Active Additional Information Patient not taking.Reported on 10/23/2024 Allopurinol 100 MG Oral Tablet (Zyloprim) Take [...] 4 12:41 PM EST 09/18/20 24 Active Calcium Acetate 667 MG Oral Tablet Take 1 Tablet by mouth in the morning and 1 Tablet at noon and 1 Tablet in the evening. Take with meals. Active Advanced Probiotic Oral Capsule Take by mouth. Activ e Ciprofloxacin HCl 500 MG Oral Tablet (Cipro) Take 1 Tablet by mouth in the morning. Active Amoxicillin-Pot Clavulanate 500-125 MG Oral Tablet (Augmentin) Take 1 Tablet by mouth in the morning and 1 Tablet at noon and 1 Tablet before bedtime. Active Potassium Chloride Susanne ER 20 MEQ Oral Tablet Extended Release TAKE 1 TABLET BY MOUTH DAILY ON WEDNESDAY, WEDNESDAY AND WEDNESDAY ONLY ALONG WITH LASIX 10/09/20 Active Hospital, Clinic, or Other Facility Administered Medication Ordered Dose Route Frequency Start Date End Date Status oxygen GASIndications:Iron deficiency anemia, unspecified iron deficiency anemia type IN OXYGEN 08/28/2024 Active documented as of this encounter (statuses as of 10/25/2024) Active Problems Problem Noted Date Diagnosed Date CKD (chronic kidney disease) stage 4, GFR 15-29 ml/min 10/18/2024 LIZZ (acute kidney injury) 10/18/2024 Fistula of vertebra 09/29/2024 Assessment & Plan [...] with p reserved ejection fraction (HFpEF) 02/23/2024 Hospital discharge follow-up 09/20/2023 Assessment & Plan (10/16/2024 12:00 PM EST): Patient has appropriate follow up with Nephrology in 9 days, Infectious Disease in 1 month, and Orthopedics tomorrow. Some exudate is expressed from wound today and a wound culture is obtained. We will notify Orthopedic surgery of this finding. Original cultures were positive for staph and Pseudomonas. I have some concern that Pseudomonas may have become resistant to treatment. We will await cultures and additional input from Orthopedic Surgery. Patient's care may need to be escalated to IV antibiotics for long-term treatment and closer monitoring of kidney function pending antibiotic options from culture. Wound may also need additional debridement. Patient had decreased kidney function and an elevated liver enzyme prior to discharge. We will recheck those lab values today. History of sepsis 09/20/2023 Atherosclerosis of renal [...] from 2018 Atherosclerotic heart diseas e of [place] coronary artery without angina pectoris 05/31/2020 Nuclear [...] as of this encounter (statuses as of 10/25/2024) Resolved Problems Problem Noted Date Diagnosed Date Resolved Date 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 4 chronic kidney disease 03/27/202409/29 Hypocalcemia 03/19/2024 09/29/2024 Acute respiratory failure with hypoxia 03/03/2024 03/03/2024 Fever 02/27/2024 03/03/2024 Acute gout of multiple sites 02/27/2024 03/03/2024 Cat bite 02/19/2024 09/29/2024 Type 2 diabetes mellitus without complication 02/07/2002/07/2024 Heart failure 01/05/2024 09/29/2024 Scrotal irritation 09/12/2023 Bilateral cellulitis of lower leg 09/12/2023 03/03/2024 Acute on chronic anemia 09/11/2023 042 04/2024 Cellulitis 09/09/2023 03/03/2024 Encephalopathy acute 09/09/2023 023 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 08/03/2023 08/03/2023 Atherosclerosis of [place] co ronary artery without angina pectoris 02/01/2023 [...] as of this encounter (statuses as of 10/25/2024) Immunizations Name Administration Dates Next Due COVID-19 mRNA, LNP-s, No Pre serve, 2-Dose Series (Nexus Dx) 08/15/2021,01/31/2021,01/03/2021 COVID-19, LNP-s, No Preserve , Ruslan-sucrose, Ages 12+ (Nexus Dx) 03/19/2022 COVID-19, MRNA-LNP, PF, 30 M CG/0.3 mL, 12 YRS AND ABOVE, IM ([facility]) 09/29/2024,10/25/2023 Covid-19, Mrna, Lnp-s, Pf, B ivalent, 30 Mcg, IM, 12 yrs and above (Nexus Dx) 2022 Pneumococcal Conjugate Vacc, 13 Valent (Prevnar) 01/21/2016 Pneumococcal Conjugate Vacci ne, 20-valent ([id number]) 07/19/2023 Pneumococcal Polysaccharide PPV23 (Pneumovax) 01/13/2011 RSV [...] No 08/23/2024 Does the household have a [facility] source of income? 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 CHW left a brief message with my callback information. Bj Scott Community Health Worker Lead [facility] [phone] Electronically signed by Jonah Scott [facility] at 10/25/2024 1:50 PM EST documented in this encounter Plan of Treatment Upcoming Encounters Date Type Department Care Team (Late st Contact Info) Description 2024 1:15 PM EST Treatment Radiation Oncology, [address] [address] 10/27/2024 1:15 PM EST Treatment Radiation Oncology, [address] [address] 10/30/2024 1:15 PM EST Treatment Radiation Oncology, [address] [address] 10/31/2024 1:15 PM EST Treatment Radiation Oncology, [address] [address] 11/02/2024 1:15 PM EST Treatment Radiation Oncology, [address] [address] 11/03/2024 1:15 PM EST Treatment Radiation Oncology, [address] [address] 11/06/2024 1:15 PM EST Treatment Radiation Oncology, [address] [address] 11/07/2024 9:40 AM EST Office Visit Infectious Disease, [address] [address] Armando Smith II, DO [address] [place] [address] 11/07/2024 1:15 PM EST Treatment Radiation Oncology, [address] [address] 11/09/2024 1:15 PM EST Treatment Radiation Oncology, [address] [address] 11/10/2024 1:15 PM EST Treatment Radiation Oncology, [address] [address] 11/13/2024 1:15 PM EST Treatment Radiation Oncology, [address] [address] 11/14/2024 1:15 PM EST Office Visit [facility] Surgery [facility] [address] [place] [address] Supriya Fernandes MD [address] [place] [address] 11/15/2024 1:00 PM EST Office Visit Nephrology, [address] [address] Keisha Gunn MD [address] [place] [address] [place] [address] 11/28/2024 10:45 AM EST Office Visit Otolaryngology/Head & Neck/Facial Plastic Surgery [address] [facility] [place] [address] Lexie Aldridge MD [address] [place] [facility] [place] [address] 12/21/2024 1:30 PM EST Office Visit Dermatology, Melissa [address] [place] [address] [place] [address] Malaika Guzman PA-C [address] [place] [address] 12/22/2024 12:00 PM EST Office Visit Nephrology, [facility] [address] [place] [address] Keisha Gunn MD [address] [place] [address] 01/22/2025 1:30 PM EDT PulmDiagnostic Pulmonary Function Lab [facility] [address] [facility] [place] [address] [place], [address] [facility] [place] [address] 01/22/2025 2:00 PM EDT Office Visit Pulmonary Medicine [facility] [address] [facility] [place] [phone] Dominguez Aguilar MD [address] [facility] [place] [address] 01/29/2025 2:00 PM EDT Office Visit [facility] [address] [place] [address] David Zamora [facility] [address] [place] [address] 02/05/2025 10:00 AM EDT Office Visit Rheumatology, [facility] [address] [place] [address] Rafael Hernandez PA-C [address] [place] [address] 02/06/2025 1:30 PM EDT Office [address]iology, [address] [address] Cherry Warner PA-C [address] [place] [address] Scheduled Procedures Name Priority Associated Diagnoses Date/Ti me COLONOSCOPY FLEXIBLE PROXIMA L DIAGNOSTIC Recall Diverticulosis of sigmoid colon Health Maintenance Due Date Last Done Comments Adult Wellness Visit 03/14/2020 03/14/2019 Diabetic Eye Exam 07/19/2024 07/19/2023, , 04/09/2022, Additional history exists Diabetic Foot Exam 07/19/2024 07/19/2023, 0 06/01/2022, 03/14/2019, Additional history exists HbA1c 03/21/2025 09/21/2024, 01/07, 09/09/2023, Additional history exists Albumin/Creatinine Ratio 03/27/2025 024, 01/31/2024, 05/18/2023, Additional history exists GFR 04/20/2025 10/20/2024, 12/0 07/2024, 09/26/2024, Additional history exists O2 ASSESSMENT COMPLETED IN PAST YEAR FOR COPD 08/13/2025 08/13/2024 Depression Screening 08/23/2025 08/23/2024, 02/07/20 24 TSH 09/21/2025 09/21/2024, 01/07, 01/31/2024, Additional history exists DTap/Tdap Vaccines (4 - Td or Tdap) [...] encounter Medical Devices Implanted Type Area Heel Seater Device Identifier Shelf Expiration Date Model / Serial / Lot Mesh Perfix Plug Lg [id number] - [id number] Implanted:Qty : 1 on 02/07/2019 by Jonathan Correia DO at OR [facility] Right: Groin CR BARD : DAVOL 09/04/2023 [id number] / / [id number] Cytal Wndmtx 1lyr 39m50am(150 Units) - [id number] - [id number] Implanted:Qty : 1 on 08/10/2024 by Lexie Aldridge MD at [facility] Left: Leg Upper [employer] [id number] 10/07/2025 [id number] / [id number] / [id number] Cytal Wndmtx 1lyr 7x10cm (70 Units) - [id number] - [id number] Implanted:Qty : 1 on 08/10/2024 by Lexie Aldridge MD at OR [facility] Left: Leg Upper [employer] [id number] 01/05/2026 [id number] / [id number] / [id number] documented as of this encounter Advance Directives Documents on File Type Date Recorded 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
--- OUTSIDE RECORDS SUMMARY | 2024-10-26 11:23 | External Medical Summary | Summary of Care ---
Author Name Unknown Organization [facility] Address [address] [place] [address] Phone [phone] Care Team Providers Care Business Development Consultant Name Role Phone Fuentes Ashton MD Primary Care Provider [phone] Encounter Details Date Type Department Care Team (Late st Contact Info) Description 10/25/2024 Orders Only Radiation Oncology, [facility] [address] [place] [address] IovoliMansoor MD [address] [place] [address] Allergies Active Allergy Reactions Criticality [...] Release (PriLOSEC)Indicat ions:Gastroesopha geal reflux disease without esophagitis,[facility] (current) use of systemic steroids Take by [...] Aerosol Powder Breath ActivatedIndicati ons:COPD, moderate ([facility]) Inhale 2 Puffs by mouth every 4 hours as needed for Shortness of Breath. 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 08/03/2023 08/03/2023 Atherosclerosis of [place] co ronary artery without angina pectoris 02/01/2023 [...] mRNA, LNP-s, No Pre serve, 2-Dose Series ([employer]) 08/15/2021,01/31/2021,01/03/2021 COVID-19, LNP-s, No Preserve , Ruslan-sucrose, Ages 12+ (Pfizer) 03/19/2022 COVID-19, MRNA-LNP, PF, 30 M CG/0.3 mL, 12 YRS AND ABOVE, IM ([employer]-Comirnaty) 09/29/2024,10/25/2023 Covid-19, Mrna, Lnp-s, Pf, B ivalent, 30 Mcg, IM, 12 yrs and above ([employer]) 2022 Pneumococcal Conjugate Vacc, 13 Valent (Prevnar) 01/21/2016 Pneumococcal Conjugate Vacci ne, 20-valent ([id number]) 07/19/2023 Pneumococcal Polysaccharide PPV23 (Pneumovax) 01/13/2011 RSV [...] No 08/23/2024 Does the household have a [facility] source of income? 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 Not on file Not on file Not [...] Assessment Author No 08/11/2024 8:15 AM Joseluis Brtohers RN * Do you have difficulty dressing [...] 1:15 PM EST Treatment Radiation Oncology, [address] [address] 10/27/2024 1:15 PM EST Treatment Radiation Oncology, [address] [address] 10/30/2024 1:15 PM EST Treatment Radiation Oncology, [address] [address] 10/31/2024 1:15 PM EST Treatment Radiation Oncology, [address] [address] 11/02/2024 1:15 PM EST Treatment Radiation Oncology, [address] [address] 11/03/2024 1:15 PM EST Treatment Radiation Oncology, [address] [address] 11/06/2024 1:15 PM EST Treatment Radiation Oncology, [address] [address] 11/07/2024 9:40 AM EST Office Visit Infectious Disease, [address] [address] Armando Smith II, DO [address] [place] [address] 11/07/2024 1:15 PM EST Treatment Radiation Oncology, [address] [address] 11/09/2024 1:15 PM EST Treatment Radiation Oncology, [address] [address] 11/10/2024 1:15 PM EST Treatment Radiation Oncology, [address] [address] 11/13/2024 1:15 PM EST Treatment Radiation Oncology, [address] [address] 11/14/2024 1:15 PM EST Office Visit MOHS Surgery [facility] [address] [place] [address] Supriya Fernandes MD [address] [place] [address] 11/15/2024 1:00 PM EST Office Visit Nephrology, [address] [address] Keisha Gunn MD [address] [place] [address] 11/28/2024 10:45 AM EST Office Visit Otolaryngology/Head & Neck/Facial Plastic Surgery [address] [place] [address] Lexie Aldridge MD [address] [place] [address] 12/21/2024 1:30 PM EST [facility] [address] [place] [address] Malaika Guzman PA-C [address] [place] [address] 12/22/2024 12:00 PM EST Office Visit Nephrology, [address], [place] [address] Keisha Gunn MD [address] [place] [address] [place] [address] 01/22/2025 1:30 PM EDT PulmDiagnostic Pulmonary Function Lab [facility] [address] [facility] [place] [address] [place], [address] [facility] [place] [address] 01/22/2025 2:00 PM EDT Office Visit Pulmonary Medicine [facility] [address] [facility] [place] [phone] Dominguez Aguilar MD [address] [facility] [place] [address] 01/29/2025 2:00 PM EDT Office Visit [facility] [place] [phone] David [facility]une[facility] [address] 02/05/2025 10:00 AM EDT Office Visit Rheumatology, [address], [place] [address] Rafael Hernandez PA-C [address] [place] [address], [place] [address] 02/06/2025 1:30 PM EDT Office Visit Cardiology, [place] [address] [place] [address] Cherry Warner PA-C [address] [place] [address] Scheduled Procedures Name Priority Associated Diagnoses Date/Ti [...] 05/18/2023, Additional history exists GFR 04/20/2025 10/20/2024, 12/07/2024, 09/26/2024, Additional history exists O2 ASSESSMENT COMPLETED [...] this encounter Medical Devices Implanted Type Area Forging Operator Device Identifier Shelf Expiration Date Model / Serial / Lot Mesh Perfix Plug [id number] [id number] - [id number] Implanted:Qty : 1 on 02/07/2019 by Jonathan Correia DO at OR [facility] Right: Groin CR BARD : DAVOL 09/04/2023 [id number] / / [id number] Cytal Wndmtx 1lyr [id number](150 Units) - [id number] - [id number] Implanted:Qty : 1 on 08/10/2024 by Lexie Aldridge MD at OR [facility] Left: Leg Upper [employer] [id number] 10/07/2025 [id number] / [id number] / [id number] Cytal Wndmtx 1lyr 7x10cm (70 Units) - [id number] - [id number] Implanted:Qty : 1 on 08/10/2024 by Lexie Aldridge MD at OR [facility] Left: Leg Upper [employer] [id number] 01/05/2026 [id number] / [id number] / [id number] documented as of this encounter Procedures Procedure Name Priority Date/Time Associated Diagnosis Comments RAD ONC ARIA SESSION SUMMARY Routine 10/25/2024 1:34 PM EST documented in this encounter Results * RAD ONC ARIA SESSION SUMMARY (10/25/2024 1:34 PM EST) Course ID C1 ARIA RADIATION ONCOLOGY Course Intent Post-op ARIA RADIATION ONCOLOGY Course Start Date 09/04/2024 12:46 PM ARIA RADIATION ONCOLOGY RAD ONC ARIA SESSION NUMBER [id number] ARIA RADIATION ONCOLOGY Course First Treatment Date 09/19/2024 1:24 PM ARIA RADIATION ONCOLOGY Course Last Treatment Date 10/25/2024 1:32 PM ARIA RADIATION ONCOLOGY Course Elapsed Days 36 ARIA RADIATION ONCOLOGY Reference Point ID [id number] ARIA RADIATION ONCOLOGY Reference Point Dosage Given to Date 38 Gy ARIA RADIATION ONCOLOGY Reference Point Session Dosage Given 2 Gy ARIA RADIATION ONCOLOGY Plan ID 10-L Neck ARIA RADIATION ONCOLOGY Plan Name 10-L Neck ARIA RADIATION ONCOLOGY Plan Fractions Treated to Date 19 ARIA RADIATION ONCOLOGY Plan Total Fractions Prescribed 30 ARIA RADIATION ONCOLOGY Plan Prescribed Dose Per Fraction 2 Gy ARIA RADIATION ONCOLOGY Plan Total Prescribed Dose 6,000 cGy ARIA RADIATION ONCOLOGY Plan Primary Reference Point [id number] ARIA RADIATION ONCOLOGY 10/25/2024 1:34 PM EST us No Physician Data Unknown DRESSINGS Final Result ARIA RADIATION ONCOLOGY documented in this encounter Advance Directives Documents on File Type Date Recorded Patient Binder Selector Expl anation Advance Directives and Living Will [...] verbally by patient or by statute hierarchy) [facility] Adult Child Emergency Contact Care Teams Business Development Consultant Relationship Specialty Start Date End Date Fuentes Ashton MD [address] [place] [address] PCP - General Family Medicine 01/30/22 documented as of this encounter
[2024-10-26] MEDS: PIPERACILLIN/TAZOBACTAM 4.5 GM/100 ML BAG IV SCH (12:18)
[2024-10-26] MEDS: ACETAMINOPHEN 325 MG TAB PO PRN (12:18)
--- NOTE | 2024-10-26 13:54 | Infectious Disease Consult ---
Date of Service October 26, 2024 Telehealth Information I performed this visit using a real-time telehealth connection between my location and the patients location ([facility]). After connecting through interactive tele-video, patient was identified by name and date of and/or wristband check.Patient (or authorized healthcare senior outside sales representative) was informed that this was a telemedicine visit and it was being conducted confidentially over secure lines. My office door was closed and no one else was present in the room with me.Patient (or authorized healthcare senior outside sales representative) provided consent to proceed with the visit, expressed an understanding of privacy and security of the telemedicine visit, and gave permission to have a hospital senior outside sales representative in the room in order to assist with the visit and to conduct portions of the visit, as needed. I informed the patient (or authorized healthcare senior outside sales representative) that I reviewed their record and presented the opportunity for them to ask any questions regarding the visit today. The patient agreed to participate. Assessment & Plan (1) Vertebral osteomyelitis: Plan: The development of the sinus tract after distant fixation is sufficient evidence of infection of the underlying hardware. XR shows stability, but the 2 week course of cipro and Augmentin was clearly insufficient. Plans to repeat I&D are noted and would be considered necessary. Please obtain bacterial, fungal and AFB cultures as before, but would anticipate Staph aureus and/or Pseudomonas. Regardless of cultures, I would anticipate the need for a 6 week course of IV therapy going forward. Treating him with pip-tazo and daptomycin at this time is not unreasonable. Final abx plans remain pending however. History of Present Illness History of Present Illness Mr. Davis has a h/o DM, ANCA positive vasculitis, Afib and CKD. 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 This has been followed by XRT. In September he developed a draining sinus from his spine. He had a fusion of L2-5 about 6 years prior. He had a superficial swab culture showing MSSA and Pseudomonas. He underwent I&D on 10/03/24 and cultures from the OR where negative (taken after being on broad- spectrum abx). The surgeon felt no infection was deeper and so the initial plans of treating with IV therapy x 6 weeks was changed to cipro and Augmentin x 2 weeks. Unfortunately he never did heal back up and continued to have ongoing drainage. Plans for further intervention were being made, but with a low grade fever, it was decided to admit him. Today he reports some discomfort, generalized fatigue, cramps in his hands. No rash or N/V. He has had some loose stool. No dysuria. Plans for further debridement noted. and daughter at the bedside help provide additional history. Allergies Allergy/AdvReac Type Severity Reaction Status Date / Time chlorhexidine Allergy Severe Redness, Verified 10/25/24 08:37 Skin Peeling for Weeks aztreonam Allergy Intermediate Hives Verified 10/25/24 08:37 Iodinated Contrast Media AdvReac Severe Kidney Verified 10/25/24 08:37 Failure Cephalosporins AdvReac Intermediate Gastrointestinal Verified 10/25/24 08:37 Upset ciprofloxacin AdvReac Intermediate Diarrhea Verified 10/25/24 08:37 levofloxacin AdvReac Intermediate Diarrhea Verified 10/25/24 08:37 Home Medications Medication Instructions Recorded Confirmed Type acetaminophen 325 mg tablet 325 mg PO QID PRN Pain (Scale 10/15/21 10/26/24 History (Tylenol) Score 1-3) albuterol sulfate 1.25 mg/3 mL 1.25 mg inhalation BID PRN 10/15/21 10/26/24 History solution for nebulization Shortness Of Breath apixaban 5 mg tablet (Eliquis) 5 mg PO BID 10/15/21 10/26/24 History levothyroxine 50 mcg tablet 50 mcg PO DAILY 10/15/21 10/26/24 History metoprolol succinate 25 mg 25 mg PO DAILY 10/15/21 10/26/24 History tablet,extended release 24 hr atorvastatin 20 mg tablet (Lipitor) 20 mg PO DAILY 03/19/22 10/26/24 History syringe with needle, safety 3 mL #100 ea 04/13/23 10/26/24 Rx 21 gauge x 1" (Monoject Safety Syringes) allopurinol 100 mg tablet 200 mg PO DAILY 03/16/24 10/26/24 History calcitriol 0.25 mcg capsule 0.25 mcg PO DAILY #30 caps 03/16/24 10/26/24 Rx testosterone cypionate 100 mg/mL 75 mg (0.75 mL) subcut Q7D #10 mL 05/31/24 10/26/24 Rx intramuscular oil folic acid 1 mg tablet 1 mg PO DAILY 09/29/24 10/26/24 History oxycodone 5 mg tablet 5 mg PO Q6H PRN Moderate Pain 09/29/24 10/26/24 History (Scale Score 5-6) sodium bicarbonate 650 mg tablet 650 mg PO AMHS 09/29/24 10/26/24 History umeclidinium 62.5 mcg-vilanterol 1 inh inhalation DAILY 09/29/24 10/26/24 History 25 mcg/actuation powdr for inhalation L.acidop,casei,lactis,rham-B.lact,blade 1 cap PO DAILY 30 days #30 caps 10/09/24 10/26/24 Rx 625 mg (10 billion cell) capsule (Advanced Probiotic) potassium chloride 20 mEq 20 meq PO UD #30 tabs 10/09/24 10/26/24 Rx tablet,extended release(part/cryst) prednisone 5 mg tablet 10 mg (2 x 5 mg) PO DAILY #30 tabs 10/09/24 10/26/24 Rx ciprofloxacin HCl 500 mg tablet 500 mg PO QAM 10/20/24 10/26/24 History (Cipro) furosemide 20 mg tablet (Lasix) 20 mg PO UD Edema 10/20/24 10/26/24 History Patient History Medical History Gout Mediastinal lymphadenopathy "Follow by Dr Aguilar, pulomology, s/p EBUS and bx on 12/09/17, to f/u pulmonology and repeat CT scan" S Pul 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 Open wound of lumbar region "One part of the incision will not heal and has been draining for 2 weeks." as per Allergic rhinitis COPD (chronic obstructive pulmonary disease) S Pulm Hx of squamous cell carcinoma 07/2024 Neck - Currently getting XRT at [facility] - Osteoporosis Osteomyelitis GERD (gastroesophageal reflux disease) Chronic anemia Gynecomastia Hemorrhoids Diverticulosis hx - found on colonoscopy H/O acute pancreatitis entered into EMR 08/21/2019 Paroxysmal A-fib Eliquis - S Cardiology Hyperglobulinemia hx of HLD (hyperlipidemia) Hypertension Herpes simplex infection hx - no issues at this time as per crusted, involving lips and right nares Generalized weakness Hypothyroid Peripheral edema Diastolic CHF S Cardiology Diabetes pts denies at this time - but pt can get low blood surgars "it'll need to be watched on the day of the procedure" CKD (chronic kidney disease), stage IV no dialysis Erythema nodosum ANCA positive, on chronic prednisone Surgical History Hx of colonoscopy Hx of squamous cell carcinoma excision History of cataract surgery bilateral History of back surgery multiple - 2017 [facility] - most recently I&D 10/03/24 [facility] H/O lymph node biopsy possible sarcoid History of bronchoscopy H/O left inguinal hernia repair Family History Mother Stroke Myocardial infarction Father Heart disease Social History Smoking Status: Former smoker Second Hand Exposure: No; Do You Dip or Chew Tobacco: No; Hx Alcohol Use: Yes Alcohol type: beer Alcohol Intake Frequency: 2-3 x/Week Hx Substance Use: No Preferred Language: [place]bourg[place] Communication Ability: Effective Development Consultant Required: No Beliefs That Will Affect Care: None Current Living Situation: Spouse Other Information That Helps Us Care for You: No Feels Safe at Home: Yes Safety Concerns: Feels Safe At This Time Assistive Devices: Cane Review of Systems Gen - Some low grade fever, chills, generalized weakness HEENT- No PYLE, sore throat Resp- No SOB or cough CV- No chest pain GI- No N/V. Some loose stool x 1 today. - No dysuria MSK- Some back pain and drainage as per HPI Skin - No rash Physical Exam Gen- NAD, chronically-ill appearing HEENT - NC AT, OP clear Resp- No tachypnea on room air Skin- No rash Neuro- Alert and oriented, lethargic Results & Data Vital Signs (Past 12 Hours) Vital Signs Temp Pulse Pulse Resp BP BP Pulse Ox 10/26/24 12:05 37.4 C 10/26/24 08:45 10/26/24 07:13 36.6 C 79 20 119/56 L 100 10/26/24 07:03 70 10/26/24 07:00 119/56 L 10/26/24 07:00 84 23 119/56 L 100 10/26/24 06:00 80 21 131/76 100 10/26/24 05:39 66 10/26/24 05:30 69 20 111/56 L 100 10/26/24 05:15 68 17 116/65 100 10/26/24 05:00 72 16 99/63 L 100 10/26/24 04:45 68 24 95/60 L 100 10/26/24 04:30 72 20 107/56 L 98 10/26/24 04:15 72 18 92/49 L 100 10/26/24 03:45 78 20 104/50 L 96 10/26/24 03:30 86 19 109/63 94 10/26/24 03:15 81 19 103/60 95 10/26/24 03:00 82 20 106/61 93 10/26/24 02:45 89 21 140/82 93 10/26/24 02:30 83 23 111/62 94 10/26/24 02:00 86 17 97/68 L 94 Pulse Ox O2 Del Method O2 Del Method O2 Flow Rate O2 Flow Rate 10/26/24 12:05 10/26/24 08:45 98 Nasal Cannula 2 10/26/24 07:13 Nasal Cannula 2 10/26/24 07:03 10/26/24 07:00 10/26/24 07:00 10/26/24 06:00 10/26/24 05:39 10/26/24 05:30 10/26/24 05:15 10/26/24 05:00 10/26/24 04:45 10/26/24 04:30 10/26/24 04:15 10/26/24 03:45 10/26/24 03:30 10/26/24 03:15 10/26/24 03:00 10/26/24 02:45 10/26/24 02:30 10/26/24 02:00 Laboratory Results WBC 8.42 Hgb 11.7 Platelets 120 ESR 78 Na 137 Creatinine 5.13 -> 4.68 BUN 72 Diagnostic Findings RVP negative Blood cultures 10/26 NGTD Prior cultures from wound and OR reviewed as per HPI MRI spine from 09/29/24 at [facility] reviewed by me Lumbar XR on admission reviewed by me
--- NOTE | 2024-10-26 14:19 | Communication Note ---
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 Hypoglycemic to 60s, but improved to 110s after lunch Reports feeling tired overall at bedside--discussed patient has poor po intake recently on pred 10mg chronically BP in 80-90s, heart rates stable in 80-90s EXAM Erythematous face, communicative and AOx3 though lethargic CTAB, RRR #Hypotension c/f impending adrenal crisis #Chronic steroids hypotensive to 80-90s, hypoglycemia to 60 on chronic pred 10mg Start hydrocortisone 100g IV now, the 50g q8h #Vertebral osteomyelitis completed oral course of cipro/augmentin for DAILY/Pseudomonas Continue zosyn/dapto vancomycin--red man syndrome Will likely require IV abx 6 weeks ID consulted, appreciated recs, spoke with Dr. Sanford bedside Hold sweetie, I&D with orthospine likely next week Rest of plan per H&P
[2024-10-26] MEDS: HYDROCORTISONE SOD 100 MG in SYRINGE 0 ML IV ONE (14:21)
[2024-10-26 14:59] LABS: Thyroid Stimulating Hormone 1.819 uIu/ml (0.300-4.500)
--- NOTE | 2024-10-26 16:14 | Nephrology Consultation ---
Date of Consultation October 26, 2024 Assessment & Plan (1) Acute kidney injury superimposed on chronic kidney disease: patient with the acute kidney injury superimposed on CKD due to ischemic ATN in setting of ongoing osteomyelitis of the vertebra. creatinine of 4.7 today the BUN of 72. Baseline creatinine in the low threes. He is making urine but blood pressure is low. Renal function expected continue worsening given ongoing osteomyelitis. No indication for dialysis today but patient is high risk for needing dialysis. he had a brief stint of dialysis in the past. - Continue to monitor renal function with daily BMP. Avoid nephrotoxins. Renally dose medications for current GFR. (2) Vertebral osteomyelitis: Patient is on Zosyn and daptomycin per primary team. He is also planned for debridement of the vertebra tomorrow. Renally dose medications for current GFR. (3) Sepsis: Sepsis due to osteomyelitis of the spine. Avoid hypotension. Patient might need the ICU and pressors. History of Present Illness Reason for Consultation: Acute kidney injury on CKD Requesting Physician: Cristine Arthur MD Attending Physician: Cristine Arthur MD History of Present Illness This [id number] male with history of steroid-induced diabetes, dyslipidemia, hypothyroidism, intraductal papillary mucinous neoplasm, hypogonadism in male, chronic gout, COPD, ANCA associated vasculitis, paroxysmal atrial fibrillation, atherosclerosis of abdominal aorta, chronic heart failure with preserved ejection fraction, hypertension, bilateral lymphadenopathy, CAD, CKD stage IV baseline creatinine in the threes, chronic intestinal vascular insufficiency, GERD, erythema nodosum, osteoporosis who was admitted with sepsis due to osteomyelitis of the spine. patient with recent debridement of the spine. He was supposed to have another debridement yesterday but it was postponed. Patient went home and developed chills which prompted readmission. He is now planned for debridement tomorrow. Creatinine up trending 5.1 on admission. Patient recently admitted and had debridement of the vertebral osteomyelitis. During that time he also had LIZZ but creatinine had improved to 3.4. Main complaint now is generalized body aches. His blood pressure is low. He denied shortness of breath. Allergies Allergy/AdvReac Type Severity Reaction Status Date / Time chlorhexidine Allergy Severe Redness, Verified 10/25/24 08:37 Skin Peeling for Weeks aztreonam Allergy Intermediate Hives Verified 10/25/24 08:37 Iodinated Contrast Media AdvReac Severe Kidney Verified 10/25/24 08:37 Failure Cephalosporins AdvReac Intermediate Gastrointestinal Verified 10/25/24 08:37 Upset ciprofloxacin AdvReac Intermediate Diarrhea Verified 10/25/24 08:37 levofloxacin AdvReac Intermediate Diarrhea Verified 10/25/24 08:37 Home Medications Medication Instructions Recorded Confirmed Type acetaminophen 325 mg tablet 325 mg PO QID PRN Pain (Scale 10/15/21 10/26/24 History (Tylenol) Score 1-3) albuterol sulfate 1.25 mg/3 mL 1.25 mg inhalation BID PRN 10/15/21 10/26/24 History solution for nebulization Shortness Of Breath apixaban 5 mg tablet (Eliquis) 5 mg PO BID 10/15/21 10/26/24 History levothyroxine 50 mcg tablet 50 mcg PO DAILY 10/15/21 10/26/24 History metoprolol succinate 25 mg 25 mg PO DAILY 10/15/21 10/26/24 History tablet,extended release 24 hr atorvastatin 20 mg tablet (Lipitor) 20 mg PO DAILY 03/19/22 10/26/24 History syringe with needle, safety 3 mL #100 ea 04/13/23 10/26/24 Rx 21 gauge x 1" (Monoject Safety Syringes) allopurinol 100 mg tablet 200 mg PO DAILY 03/16/24 10/26/24 History calcitriol 0.25 mcg capsule 0.25 mcg PO DAILY #30 caps 03/16/24 10/26/24 Rx testosterone cypionate 100 mg/mL 75 mg (0.75 mL) subcut Q7D #10 mL 05/31/24 10/26/24 Rx intramuscular oil folic acid 1 mg tablet 1 mg PO DAILY 09/29/24 10/26/24 History oxycodone 5 mg tablet 5 mg PO Q6H PRN Moderate Pain 09/29/24 10/26/24 History (Scale Score 5-6) sodium bicarbonate 650 mg tablet 650 mg PO AMHS 09/29/24 10/26/24 History umeclidinium 62.5 mcg-vilanterol 1 inh inhalation DAILY 09/29/24 10/26/24 History 25 mcg/actuation powdr for inhalation L.acidop,casei,lactis,rham-B.lact,blade 1 cap PO DAILY 30 days #30 caps 10/09/24 10/26/24 Rx 625 mg (10 billion cell) capsule (Advanced Probiotic) potassium chloride 20 mEq 20 meq PO UD #30 tabs 10/09/24 10/26/24 Rx tablet,extended release(part/cryst) prednisone 5 mg tablet 10 mg (2 x 5 mg) PO DAILY #30 tabs 10/09/24 10/26/24 Rx ciprofloxacin HCl 500 mg tablet 500 mg PO QAM 10/20/24 10/26/24 History (Cipro) furosemide 20 mg tablet (Lasix) 20 mg PO UD Edema 10/20/24 10/26/24 History Patient History Medical History Gout Mediastinal lymphadenopathy "Follow by Dr Aguilar, pulomology, s/p EBUS and bx on 12/09/17, to f/u pulmonology and repeat CT scan" [facility] Pul 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 Open wound of lumbar region "One part of the incision will not heal and has been draining for 2 weeks." as per Allergic rhinitis COPD (chronic obstructive pulmonary disease) [facility] Pul Hx of squamous cell carcinoma 07/2024 Neck - Currently getting XRT at [facility] - Osteoporosis Osteomyelitis GERD (gastroesophageal reflux disease) Chronic anemia Gynecomastia Hemorrhoids Diverticulosis hx - found on colonoscopy H/O acute pancreatitis entered into EMR 08/21/2019 Paroxysmal A-fib Eliquis - [facility] Cardiology Hyperglobulinemia hx of HLD (hyperlipidemia) Hypertension Herpes simplex infection hx - no issues at this time as per crusted, involving lips and right nares Generalized weakness Hypothyroid Peripheral edema Diastolic CHF [facility] Cardiology Diabetes pts denies at this time - but pt can get low blood surgars "it'll need to be watched on the day of the procedure" CKD (chronic kidney disease), stage IV no dialysis Erythema nodosum ANCA positive, on chronic prednisone Surgical History Hx of colonoscopy Hx of squamous cell carcinoma excision History of cataract surgery bilateral History of back surgery multiple - 2017 [facility] - most recently I&D 10/03/24 [facility] H/O lymph node biopsy possible sarcoid History of bronchoscopy H/O left inguinal hernia repair Family History Mother Stroke Myocardial infarction Father Heart disease Social History Smoking Status: Former smoker Second Hand Exposure: No; Do You Dip or Chew Tobacco: No; Hx Alcohol Use: Yes Alcohol type: beer Alcohol Intake Frequency: 2-3 x/Week Hx Substance Use: No Preferred Language: Slovak Communication Ability: Effective Cork Tipper Required: No Beliefs That Will Affect Care: None Current Living Situation: Spouse Other Information That Helps Us Care for You: No Feels Safe at Home: Yes Safety Concerns: Feels Safe At This Time Assistive Devices: Cane Review of Systems 2 Review of Systems: All other systems were reviewed and negative except as noted in HPI Physical Exam 2 Physical Exam: General exam: Sick looking, no acute distress HEENT: Pupils are equal and reactive to light Neck: No JVD, neck is supple trachea is midline Respiratory system: Clear breath sounds bilaterally. Gastrointestinal: Abdomen is soft, non distended, non tender, bowel sounds are present CVS: Regular rate and rhythm. No murmurs, rubs or gallops Musculoskeletal: No joint or muscle tenderness Extremities: Non tender, no edema, peripheral pulses are present Neuro: Oriented, no tremors, no focal neurological deficits Skin: skin is flushed all over the body Results & Data Vital Signs (Past 12 Hours) Vital Signs Temp Pulse Pulse Resp BP BP BP 10/26/24 15:39 37.1 C 82 20 76/54 L 76/47 L 10/26/24 15:00 80 10/26/24 14:44 86 16 86/55 L 10/26/24 12:05 37.4 C 10/26/24 08:45 10/26/24 07:13 36.6 C 79 20 119/56 L 10/26/24 07:03 70 10/26/24 07:00 119/56 L 10/26/24 07:00 84 23 119/56 L 10/26/24 06:00 80 21 131/76 10/26/24 05:39 66 10/26/24 05:30 69 20 111/56 L 10/26/24 05:15 68 17 116/65 10/26/24 05:00 72 16 99/63 L 10/26/24 04:45 68 24 95/60 L 10/26/24 04:30 72 20 107/56 L 10/26/24 04:15 72 18 92/49 L Pulse Ox Pulse Ox O2 Del Method O2 Del Method O2 Flow Rate O2 Flow Rate 10/26/24 15:39 96 Room Air 10/26/24 15:00 10/26/24 14:44 96 Room Air 10/26/24 12:05 10/26/24 08:45 98 Nasal Cannula 2 10/26/24 07:13 100 Nasal Cannula 2 10/26/24 07:03 10/26/24 07:00 10/26/24 07:00 100 10/26/24 06:00 100 10/26/24 05:39 10/26/24 05:30 100 10/26/24 05:15 100 10/26/24 05:00 100 10/26/24 04:45 100 10/26/24 04:30 98 10/26/24 04:15 100 Laboratory Results 10/26/24 07:33 10/26/24 10/26/24 00:15 07:33 WBC 8.42 4.54 L RBC 3.40 L 3.48 L MCV 106.2 H 106.0 H MCH 33.2 33.6 MCHC 31.3 L 31.7 L RDW Std Deviation 58.5 H 58.6 H RDW Coeff of Rk 14.8 H 15.0 H Plt Count 143 120 L MPV 11.8 11.5 Albumin 2.9 L
[2024-10-26] MEDS ORDERED: STAT IV Infusion **Titration per Protocol STA (16:44)
[2024-10-26 17:00] LABS: Base Excess VBG -9.5 mEq/L; HCO3 VBG 18 mmol/L; Oxygen Saturation VBG 64.3 %; PCO2 VBG 44 mmHg (38-50); PO2 VBG 39 mmHg; pH VBG 7.22 (7.36-7.41)
--- NOTE | 2024-10-26 17:09 | Critical Care Consultation ---
Date of Consultation October 26, 2024 Assessment & Plan (1) CKD (chronic kidney disease): (2) ANCA-associated vasculitis: (3) Vertebral osteomyelitis: Plan Impression: 79-year-old male with potential vertebral osteomyelitis 6 years status post lumbar spine surgery admitted for antibiotics found to have acute renal insufficiency superimposed on chronic kidney disease and low blood pressure. Recommendations: 1. Neurologic: No current issues. Will need physical therapy and Occupational Therapy 2. Cardiovascular: Hypotension. Multiple potential etiologies. His lactate was normal. He is at risk for relative adrenal insufficiency, see comments below. He appears adequately volume resuscitated currently. Will place on midodrine and use low-dose Martínez-Synephrine as needed to maintain systolic blood pressures at or above 100. Hold his antihypertensives for now 3. Pulmonary: History of COPD. PFTs not available. The patient is not bronchospastic. Continue home inhaler regiment. Wean oxygen as tolerated. Incentive spirometry as tolerated 3. Renal: Acute on chronic kidney disease. Unclear if the mild renal hypoperfusion might be contributing. Will try and target systolic blood pressures greater than 100 to see whether or not improve perfusion pressure results and improvement in his chronic kidney disease. He is at risk for continued renal deterioration and potential need for hemodialysis. Electrolytes are stable however blood gas does demonstrate acidosis with a pH of 7.22. Will initiate bicarb replacement. Additional management per nephrology 4. ID: Patient has been seen in consultation by infectious disease. Currently day #2 Zosyn daptomycin. Continue current antibiotics under the direction of ID and additional antibiotics will be dictated based on results of deeper surgical cultures. 5. Endocrine: On chronic steroids for ANCA vasculitis. Transition to stress dose steroids 50 mg hydrocortisone Q6 as well as 0.1 mg of Florinef p.o. daily. Wean as tolerated. Glycemic control per ICU protocol. 6. GI: No current issues. 7. Heme-onc: History of squamous cell carcinoma of the neck. Mildly pancytopenic. Continue to follow counts at this point in time. No indication for transfusion. Patient is critically ill with acute renal failure and metabolic acidosis at this point in time. Significant probability of clinical deterioration. A total of 41 minutes in critical care time was spent evaluation management coordination of care for this patient. History of Present Illness Attending Physician: Cristine Arthur MD History of Present Illness Asked by hospitalist to evaluate this patient with hypotension admitted with probable vertebral osteomyelitis. History is obtained from review of electronic medical record as well as discussion with the patient. The patient is a 79-year-old male with a complex past medical history including COPD, vasculitis, diastolic dysfunction, hypertension, and chronic kidney disease as well as squamous cell carcinoma of the neck who has a history of spine surgery. MRI in the outpatient setting showed a sinus tract with potential reactive osteitis or osteomyelitis. He was initially placed on antibiotics in the outpatient setting based on a superficial swab but showing methicillin-sensitive Staph aureus and Pseudomonas. I&D performed at the end of September had negative cultures. He was treated with 2 weeks of ciprofloxacin and Augmentin. He is continue to have ongoing drainage and reportedly was to have an I&D performed yesterday however he continued his anticoagulation so the procedure was canceled. He had a low-grade fever and decision was made by the spine surgeon to admit him to medicine and plan on debridement after stabilization. He has been in the emergency room but his had low blood pressures throughout the day. He is had worsening of his kidney function. His lactate was normal. He has been initiated on antibiotics in the form of Zosyn and daptomycin. Due to persistently low blood pressures, the patient was placed on stress dose steroids in the form of hydrocortisone and ICU was consulted for consideration of potential pressors. The patient reports feeling poorly in general. He does not have any chest pain or palpitations. He denies nausea or vomiting. Allergies Allergy/AdvReac Type Severity Reaction Status Date / Time chlorhexidine Allergy Severe Redness, Verified 10/25/24 08:37 Skin Peeling for Weeks aztreonam Allergy Intermediate Hives Verified 10/25/24 08:37 Iodinated Contrast Media AdvReac Severe Kidney Verified 10/25/24 08:37 Failure Cephalosporins AdvReac Intermediate Gastrointestinal Verified 10/25/24 08:37 Upset ciprofloxacin AdvReac Intermediate Diarrhea Verified 10/25/24 08:37 levofloxacin AdvReac Intermediate Diarrhea Verified 10/25/24 08:37 Home Medications Medication Instructions Recorded Confirmed Type acetaminophen 325 mg tablet 325 mg PO QID PRN Pain (Scale 10/15/21 10/26/24 History (Tylenol) Score 1-3) albuterol sulfate 1.25 mg/3 mL 1.25 mg inhalation BID PRN 10/15/21 10/26/24 History solution for nebulization Shortness Of Breath apixaban 5 mg tablet (Eliquis) 5 mg PO BID 10/15/21 10/26/24 History levothyroxine 50 mcg tablet 50 mcg PO DAILY 10/15/21 10/26/24 History metoprolol succinate 25 mg 25 mg PO DAILY 10/15/21 10/26/24 History tablet,extended release 24 hr atorvastatin 20 mg tablet (Lipitor) 20 mg PO DAILY 03/19/22 10/26/24 History syringe with needle, safety 3 mL #100 ea 04/13/23 10/26/24 Rx 21 gauge x 1" (Monoject Safety Syringes) allopurinol 100 mg tablet 200 mg PO DAILY 03/16/24 10/26/24 History calcitriol 0.25 mcg capsule 0.25 mcg PO DAILY #30 caps 03/16/24 10/26/24 Rx testosterone cypionate 100 mg/mL 75 mg (0.75 mL) subcut Q7D #10 mL 05/31/24 10/26/24 Rx intramuscular oil folic acid 1 mg tablet 1 mg PO DAILY 09/29/24 10/26/24 History oxycodone 5 mg tablet 5 mg PO Q6H PRN Moderate Pain 09/29/24 10/26/24 History (Scale Score 5-6) sodium bicarbonate 650 mg tablet 650 mg PO AMHS 09/29/24 10/26/24 History umeclidinium 62.5 mcg-vilanterol 1 inh inhalation DAILY 09/29/24 10/26/24 History 25 mcg/actuation powdr for inhalation L.acidop,casei,lactis,rham-B.lact,blade 1 cap PO DAILY 30 days #30 caps 10/09/24 10/26/24 Rx 625 mg (10 billion cell) capsule (Advanced Probiotic) potassium chloride 20 mEq 20 meq PO UD #30 tabs 10/09/24 10/26/24 Rx tablet,extended release(part/cryst) prednisone 5 mg tablet 10 mg (2 x 5 mg) PO DAILY #30 tabs 10/09/24 10/26/24 Rx ciprofloxacin HCl 500 mg tablet 500 mg PO QAM 10/20/24 10/26/24 History (Cipro) furosemide 20 mg tablet (Lasix) 20 mg PO UD Edema 10/20/24 10/26/24 History Patient History Medical History Gout Mediastinal lymphadenopathy "Follow by Dr Aguilar, pulomology, s/p EBUS and bx on 12/09/17, to f/u pulmonology and repeat CT scan" 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 Open wound of lumbar region "One part of the incision will not heal and has been draining for 2 weeks." as per Allergic rhinitis COPD (chronic obstructive pulmonary disease) [facility] Hx of squamous cell carcinoma 07/2024 Neck - Currently getting XRT at [facility] - Osteoporosis Osteomyelitis GERD (gastroesophageal reflux disease) Chronic anemia Gynecomastia Hemorrhoids Diverticulosis hx - found on colonoscopy H/O acute pancreatitis entered into EMR 08/21/2019 Paroxysmal A-fib Eliquis - [facility] Hyperglobulinemia hx of HLD (hyperlipidemia) Hypertension Herpes simplex infection hx - no issues at this time as per crusted, involving lips and right nares Generalized weakness Hypothyroid Peripheral edema Diastolic CHF [facility] Diabetes pts denies at this time - but pt can get low blood surgars "it'll need to be watched on the day of the procedure" CKD (chronic kidney disease), stage IV no dialysis Erythema nodosum ANCA positive, on chronic prednisone Surgical History Hx of colonoscopy Hx of squamous cell carcinoma excision History of cataract surgery bilateral History of back surgery multiple - 2017 [facility] - most recently I&D 10/03/24 [facility] H/O lymph node biopsy possible sarcoid History of bronchoscopy H/O left inguinal hernia repair Family History Mother Stroke Myocardial infarction Father Heart disease Social History Smoking Status: Former smoker Second Hand Exposure: No; Do You Dip or Chew Tobacco: No; Hx Alcohol Use: Yes Alcohol type: beer Alcohol Intake Frequency: 2-3 x/Week Hx Substance Use: No Preferred Language: Maldivian Communication Ability: Effective Supplier Specialist Required: No Beliefs That Will Affect Care: None Current Living Situation: Spouse Other Information That Helps Us Care for You: No Feels Safe at Home: Yes Safety Concerns: Feels Safe At This Time Assistive Devices: Cane Review of Systems Review of Systems: Please refer to admission H&P. No additions or deletions Physical Exam Constitutional: well developed, + frail appearing and cooperative; no acute distress Eyes: EOM intact bilaterally ENMT: Mouth: + dry oral mucous membranes Neck: no nuchal rigidity Respiratory: normal respiratory effort Auscultation: + diminished lung sounds and + crackles Cardiovascular: Rate/Rhythm: regular rate and regular rhythm Extremities: + edema Gastrointestinal (Abdomen): Inspection/Auscultation: normal bowel sounds Percussion/Palpation: abdomen soft; abdomen nontender Musculoskeletal: Extremities: strength 5/5 throughout Skin: no rashes, warm and dry Neurologic: capone, fluent speech, no tremor Results & Data Results & Data Vital Signs (Past 12 Hours) Vital Signs Temp Pulse Pulse Resp BP BP BP 10/26/24 16:50 78/50 L 10/26/24 16:45 83/49 L 10/26/24 16:42 84 21 10/26/24 16:40 69/45 L 10/26/24 16:40 69/45 L 10/26/24 16:35 82/47 L 10/26/24 16:35 82/47 L 10/26/24 16:30 78/46 L 10/26/24 16:25 78/48 L 10/26/24 16:24 86/51 L 10/26/24 16:24 69 12 10/26/24 16:21 75 19 10/26/24 16:20 80/48 L 10/26/24 16:15 72 18 10/26/24 16:15 82/51 L 10/26/24 16:15 82/51 L 10/26/24 16:12 72 23 10/26/24 16:11 76/45 L 10/26/24 16:06 78 7 L 10/26/24 16:05 85/49 L 10/26/24 16:03 82 24 10/26/24 16:00 85/47 L 10/26/24 16:00 85/47 L 10/26/24 16:00 85/47 L 10/26/24 15:57 84 33 H 10/26/24 15:55 83/54 L 10/26/24 15:54 79 14 10/26/24 15:51 82 20 10/26/24 15:50 83/51 L 10/26/24 15:50 83/51 L 10/26/24 15:50 83/51 L 10/26/24 15:39 37.1 C 82 20 76/54 L 76/47 L 10/26/24 15:37 76/47 L 10/26/24 15:37 76/47 L 10/26/24 15:33 72 14 10/26/24 15:32 76/49 L 10/26/24 15:30 72/45 L 10/26/24 15:21 82 8 L 10/26/24 15:18 73 7 L 10/26/24 15:06 78 0 L 10/26/24 15:03 79 0 L 10/26/24 15:00 81/48 L 10/26/24 15:00 81/48 L 10/26/24 15:00 80 10/26/24 14:57 76 1 L 10/26/24 14:51 82 6 L 10/26/24 14:45 84/52 L 10/26/24 14:44 86 16 86/55 L 10/26/24 14:42 90 19 10/26/24 14:36 92 H 21 10/26/24 14:30 86/55 L 10/26/24 14:15 97/68 L 10/26/24 14:09 89 19 10/26/24 14:00 83/62 L 10/26/24 14:00 83/62 L 10/26/24 13:48 87 10 L 10/26/24 13:45 95/55 L 10/26/24 13:45 95/55 L 10/26/24 13:39 89 8 L 10/26/24 13:36 90 30 H 10/26/24 13:30 94/52 L 10/26/24 13:21 93 H 15 10/26/24 13:15 93 H 23 10/26/24 13:15 88/56 L 10/26/24 13:15 88/56 L 10/26/24 13:15 88/56 L 10/26/24 13:01 88/57 L 10/26/24 13:01 88/57 L 10/26/24 13:00 88 9 L 10/26/24 12:57 94/59 L 10/26/24 12:57 94/59 L 10/26/24 12:05 37.4 C 10/26/24 08:45 10/26/24 07:13 36.6 C 79 20 119/56 L 10/26/24 07:03 70 10/26/24 07:00 119/56 L 10/26/24 07:00 84 23 119/56 L 10/26/24 06:00 80 21 131/76 10/26/24 05:39 66 10/26/24 05:30 69 20 111/56 L 10/26/24 05:15 68 17 116/65 Pulse Ox Pulse Ox O2 Del Method O2 Del Method O2 Flow Rate O2 Flow Rate 10/26/24 16:50 10/26/24 16:45 10/26/24 16:42 95 10/26/24 16:40 10/26/24 16:40 10/26/24 16:35 10/26/24 16:35 10/26/24 16:30 10/26/24 16:25 10/26/24 16:24 10/26/24 16:24 91 10/26/24 16:21 95 10/26/24 16:20 10/26/24 16:15 96 10/26/24 16:15 10/26/24 16:15 10/26/24 16:12 96 10/26/24 16:11 10/26/24 16:06 95 10/26/24 16:05 10/26/24 16:03 95 10/26/24 16:00 10/26/24 16:00 10/26/24 16:00 10/26/24 15:57 94 10/26/24 15:55 10/26/24 15:54 95 10/26/24 15:51 94 10/26/24 15:50 10/26/24 15:50 10/26/24 15:50 10/26/24 15:39 96 Room Air 10/26/24 15:37 10/26/24 15:37 10/26/24 15:33 96 10/26/24 15:32 10/26/24 15:30 10/26/24 15:21 95 10/26/24 15:18 95 10/26/24 15:06 10/26/24 15:03 10/26/24 15:00 10/26/24 15:00 10/26/24 15:00 10/26/24 14:57 10/26/24 14:51 10/26/24 14:45 10/26/24 14:44 96 Room Air 10/26/24 14:42 10/26/24 14:36 10/26/24 14:30 10/26/24 14:15 10/26/24 14:09 10/26/24 14:00 10/26/24 14:00 10/26/24 13:48 10/26/24 13:45 10/26/24 13:45 10/26/24 13:39 10/26/24 13:36 10/26/24 13:30 10/26/24 13:21 10/26/24 13:15 84 L 10/26/24 13:15 10/26/24 13:15 10/26/24 13:15 10/26/24 13:01 10/26/24 13:01 10/26/24 13:00 89 L 10/26/24 12:57 10/26/24 12:57 10/26/24 12:05 10/26/24 08:45 98 Nasal Cannula 2 10/26/24 07:13 100 Nasal Cannula 2 10/26/24 07:03 10/26/24 07:00 10/26/24 07:00 100 10/26/24 06:00 100 10/26/24 05:39 10/26/24 05:30 100 10/26/24 05:15 100 Critical Care Results & Data Vital Signs (Past 12 Hours) Vital Signs Temp Pulse Pulse Resp BP BP BP 10/26/24 16:50 78/50 L 10/26/24 16:45 83/49 L 10/26/24 16:42 84 21 10/26/24 16:40 69/45 L 10/26/24 16:40 69/45 L 10/26/24 16:35 82/47 L 10/26/24 16:35 82/47 L 10/26/24 16:30 78/46 L 10/26/24 16:25 78/48 L 10/26/24 16:24 86/51 L 10/26/24 16:24 69 12 10/26/24 16:21 75 19 10/26/24 16:20 80/48 L 10/26/24 16:15 72 18 10/26/24 16:15 82/51 L 10/26/24 16:15 82/51 L 10/26/24 16:12 72 23 10/26/24 16:11 76/45 L 10/26/24 16:06 78 7 L 10/26/24 16:05 85/49 L 10/26/24 16:03 82 24 10/26/24 16:00 85/47 L 10/26/24 16:00 85/47 L 10/26/24 16:00 85/47 L 10/26/24 15:57 84 33 H 10/26/24 15:55 83/54 L 10/26/24 15:54 79 14 10/26/24 15:51 82 20 10/26/24 15:50 83/51 L 10/26/24 15:50 83/51 L 10/26/24 15:50 83/51 L 10/26/24 15:39 37.1 C 82 20 76/54 L 76/47 L 10/26/24 15:37 76/47 L 10/26/24 15:37 76/47 L 10/26/24 15:33 72 14 10/26/24 15:32 76/49 L 10/26/24 15:30 72/45 L 10/26/24 15:21 82 8 L 10/26/24 15:18 73 7 L 10/26/24 15:06 78 0 L 10/26/24 15:03 79 0 L 10/26/24 15:00 81/48 L 10/26/24 15:00 81/48 L 10/26/24 15:00 80 10/26/24 14:57 76 1 L 10/26/24 14:51 82 6 L 10/26/24 14:45 84/52 L 10/26/24 14:44 86 16 86/55 L 10/26/24 14:42 90 19 10/26/24 14:36 92 H 21 10/26/24 14:30 86/55 L 10/26/24 14:15 97/68 L 10/26/24 14:09 89 19 10/26/24 14:00 83/62 L 10/26/24 14:00 83/62 L 10/26/24 13:48 87 10 L 10/26/24 13:45 95/55 L 10/26/24 13:45 95/55 L 10/26/24 13:39 89 8 L 10/26/24 13:36 90 30 H 10/26/24 13:30 94/52 L 10/26/24 13:21 93 H 15 10/26/24 13:15 93 H 23 10/26/24 13:15 88/56 L 10/26/24 13:15 88/56 L 10/26/24 13:15 88/56 L 10/26/24 13:01 88/57 L 10/26/24 13:01 88/57 L 10/26/24 13:00 88 9 L 10/26/24 12:57 94/59 L 10/26/24 12:57 94/59 L 10/26/24 12:05 37.4 C 10/26/24 08:45 10/26/24 07:13 36.6 C 79 20 119/56 L 10/26/24 07:03 70 10/26/24 07:00 119/56 L 10/26/24 07:00 84 23 119/56 L 10/26/24 06:00 80 21 131/76 10/26/24 05:39 66 10/26/24 05:30 69 20 111/56 L 10/26/24 05:15 68 17 116/65 Pulse Ox Pulse Ox O2 Del Method O2 Del Method O2 Flow Rate O2 Flow Rate 10/26/24 16:50 10/26/24 16:45 10/26/24 16:42 95 10/26/24 16:40 10/26/24 16:40 10/26/24 16:35 10/26/24 16:35 10/26/24 16:30 10/26/24 16:25 10/26/24 16:24 10/26/24 16:24 91 10/26/24 16:21 95 10/26/24 16:20 10/26/24 16:15 96 10/26/24 16:15 10/26/24 16:15 10/26/24 16:12 96 10/26/24 16:11 10/26/24 16:06 95 10/26/24 16:05 10/26/24 16:03 95 10/26/24 16:00 10/26/24 16:00 10/26/24 16:00 10/26/24 15:57 94 10/26/24 15:55 10/26/24 15:54 95 10/26/24 15:51 94 10/26/24 15:50 10/26/24 15:50 10/26/24 15:50 10/26/24 15:39 96 Room Air 10/26/24 15:37 10/26/24 15:37 10/26/24 15:33 96 10/26/24 15:32 10/26/24 15:30 10/26/24 15:21 95 10/26/24 15:18 95 10/26/24 15:06 10/26/24 15:03 10/26/24 15:00 10/26/24 15:00 10/26/24 15:00 10/26/24 14:57 10/26/24 14:51 10/26/24 14:45 10/26/24 14:44 96 Room Air 10/26/24 14:42 10/26/24 14:36 10/26/24 14:30 10/26/24 14:15 10/26/24 14:09 10/26/24 14:00 10/26/24 14:00 10/26/24 13:48 10/26/24 13:45 10/26/24 13:45 10/26/24 13:39 10/26/24 13:36 10/26/24 13:30 10/26/24 13:21 10/26/24 13:15 84 L 10/26/24 13:15 10/26/24 13:15 10/26/24 13:15 10/26/24 13:01 10/26/24 13:01 10/26/24 13:00 89 L 10/26/24 12:57 10/26/24 12:57 10/26/24 12:05 10/26/24 08:45 98 Nasal Cannula 2 10/26/24 07:13 100 Nasal Cannula 2 10/26/24 07:03 10/26/24 07:00 10/26/24 07:00 100 10/26/24 06:00 100 10/26/24 05:39 10/26/24 05:30 100 10/26/24 05:15 100 Lab & Micro Results (Past 24 Hours) RBC 3.48 M/uL (4.70-6.10) L 10/26/24 WBC 4.54 K/ul (4.8-10.8) L 10/26/24 Hgb 11.7 g/dl (14.0-18.0) L 10/26/24 Hct 36.9 % (42.0-52.0) L 10/26/24 MCV 106.0 fL (80.0-100.0) H 10/26/24 MCH 33.6 pg (25.0-34.0) 10/26/24 MCHC 31.7 g/dL (32.0-36.0) L 10/26/24 RDW Standard Deviation 58.6 fL (36.4-46.3) H 10/26/24 RDW Coefficient of Variation 15.0 % (11.5-14.5) H 10/26/24 Plt Count 120 K/uL (130-400) L 10/26/24 MPV 11.5 fL (9.4-12.4) 10/26/24 Neutrophils (%) (Auto) 78.0 % 10/26/24 Lymphocytes (%) (Auto) 12.1 % 10/26/24 Monocytes # (Auto) 0.12 K/uL (0.11-0.59) 10/26/24 Eosinophils # (Auto) 0.23 K/uL (0.00-0.50) 10/26/24 Immature Granulocyte % (Auto) 1.8 % 10/26/24 Neutrophils # (Auto) 3.54 K/uL (1.40-6.50) 10/26/24 Lymphocytes # (Auto) 0.55 K/uL (1.20-3.40) L 10/26/24 Monocytes # (Auto) 0.12 K/uL (0.11-0.59) 10/26/24 Eosinophils # (Auto) 0.23 K/uL (0.00-0.50) 10/26/24 Basophils # (Auto) 0.02 K/uL (0.00-0.20) 10/26/24 Immature Granulocyte # (Auto) 0.08 K/uL (0.01-0.20) 4 Na 137 mmol/L (136-145) 10/26/24 K 4.8 mmol/L (3.5-5.1) 10/26/24 Cl 110 mmol/L (98-107) H 10/26/24 CO2 20 mmol/L (21-32) L 10/26/24 Anion Gap 7 (3-11) 10/26/24 BUN 72 mg/dl (6-23) H 10/26/24 Creatinine 4.68 mg/dl (0.6-1.4) H* 10/26/24 BUN/Creatinine Ratio 15.4 (10-20) 10/26/24 Glu 70 mg/dl (70-99(Fasting)) 10/26/24 Ca 8.8 mg/dl (8.6-10.3) 10/26/24 Total Bilirubin 0.4 mg/dl (0.2-1.0) 10/26/24 Direct Bilirubin 0.0 mg/dl (0-0.2) 10/26/24 AST 20 U/L (13-39) 10/26/24 ALT 17 U/L (7-52) 10/26/24 Alkaline Phosphatase 43 U/L (34-104) 10/26/24 TP 6.9 gm/dl (6.0-8.3) 10/26/24 Albumin 2.9 gm/dl (3.4-5.0) L 10/26/24 Mg 1.8 mg/dl (1.7-2.4) 10/26/24 07:33 Calcium Level 8.8 mg/dl (8.6-10.3) 10/26/24 07:33 Venous Blood pH 7.22 (7.36-7.41) L 10/26/24 16:54 Venous Blood Partial Pressure CO2 44 mmHg (38-50) 10/26/24 16:5 4 Venous Blood Partial Pressure O2 39 mmHg 10/26/24 16:54 Venous Blood HCO3 18 mmol/L 10/26/24 16:54 Venous Blood Base Excess -9.5 mEq/L 10/26/24 16:54 Venous Blood Oxygen Saturation 64.3 % 10/26/24 16:54 Diagnostic Findings (Past 24 Hours) Chest X-Ray 10/25/24 23:56 EXAM: XR chest 1V portable CLINICAL HISTORY: SEPSIS TECHNIQUE: X-ray image of the chest is obtained in AP portable projection. COMPARISON: 10/01/2024 FINDINGS: Pulmonary Parenchyma: Reduced lung volumes. Suboptimal inspiration. Bilateral pulmonary interstitial thickening is noted. could be interstitial edema. Bilateral hilar prominence. Could be vascular congestion. Left basilar atelectasis/infiltrate. Haze is noted in the right lower zone, could be projectional. No evidence of consolidation or collapse. No evidence of pleural effusion . Right apical minimal pleural thickening. Heart and Mediastinum: Heart size and shape are normal. No mediastinal masses. No hilar or mediastinal lymphadenopathy. Bony Thorax: The bony thorax appears intact. Soft Tissues: Soft tissues overlying the chest wall are unremarkable. IMPRESSION: 1. No consolidation or pleural effusion. 2. Bilateral pulmonary interstitial thickening. could be interstitial edema/congestion. 3. Bilateral hilar prominence. Could be vascular congestion. 4. Left basilar atelectasis/infiltrate. 5. Hazy air space opacities in the right lower zone, could be infiltrate or projectional. 6. No acute cardiopulmonary abnormalities are identified. 7. No significant interval change. 8. CT chest is recommended if clinically indicated. Electronically signed by River Bliss 10-26-2024 01:44 AM I & O Totals 24 Hours 10/25/24 10/26/24 10/27/24 06:59 06:59 06:59 Intake Total 2049 947.500 / 947.500 Output Total 650 / 650 Balance 2049 297.500 / 297.500 Cumulative 10/25/24 23:07 thru 10/26/24 16:10 Intake Total 2997.500 Output Total 650 Balance 2347.500 RT Ventilator Mngmt (Last Documented) Ventilator Ordered Settings Respiratory Rate 21 10/26/24 16:42 Ventilator - PT Measurements Respiratory Rate 21 Coding Level of Care Code 72354 CRITICAL CARE 1ST 30-74M Diagnoses CKD (chronic kidney disease) N18.9 ANCA-associated vasculitis I77.82 Vertebral osteomyelitis M46.20
[2024-10-26] MEDS: HYDROCORTISONE SOD 50 MG in SYRINGE 0 ML IV SCH (17:49)
[2024-10-26] MEDS: SODIUM BICARBONATE 8.4% 150 MEQ in WATER, STERILE 1,000 ML IV SCH (17:49)
[2024-10-26] MEDS: SODIUM BICARB 8.4% INJ 50 MEQ/50 ML SYR IV STA (17:51)
[2024-10-26] MEDS: MIDODRINE HCL 10 MG TAB PO SCH (18:33)
[2024-10-26] MEDS: FLUDROCORTISONE ACETATE 0.1 MG TAB PO SCH (18:34)
[2024-10-26] MEDS: ICU Protocol for HYPERglycemia SCH (18:35)
[2024-10-26] MEDS ORDERED: CARBOHYDRATES FOR HYPOGLYCEMIA PO PRN ×2 (18:36→18:43)
[2024-10-26] MEDS ORDERED: GLUCOSE 10 TAB/TUBE PO PRN ×2 (18:36→18:43)
[2024-10-26] MEDS ORDERED: GLUCAGON FOR INJ 1 MG VIAL SQ PRN ×2 (18:36→18:43)
[2024-10-26] MEDS ORDERED: GLUCOSE 40% GEL 15 GM TUBE PO PRN ×2 (18:36→18:43)
[2024-10-26] MEDS ORDERED: DEXTROSE 50% 50 ML SYRINGE IV PRN ×2 (18:36→18:43)
[2024-10-26] MEDS: ACETAMINOPHEN 1,000 MG/100 ML VIAL IV PRN (19:08)
[2024-10-26] MEDS: INSULIN ASPART PER UNIT CHARGE SC STA (19:09)
[2024-10-26] MEDS: PHENYLEPHRINE/NSS 25 MG/250 ML BAG IV SCH (20:52)
[2024-10-26] MEDS: INSULIN ASPART PER UNIT CHARGE SC SCH (21:01)
[2024-10-26] MEDS ORDERED: HYDROCORTISONE SOD 50 MG in SYRINGE 0 ML IV SCH (22:00)
--- NOTE | 2024-10-26 22:40 | Electrocardiogram Report ---
Test Reason : Blood Pressure : */* mmHG Vent. Rate : 91 BPM Atrial Rate : 91 BPM P-R Int : 176 ms QRS Dur : 72 ms QT Int : 324 ms P-R-T Axes : 47 -7 43 degrees QTcB Int : 398 ms Normal sinus rhythm Normal ECG When compared with ECG of 05-Oct-2024 09:24, QRS duration has decreased Nonspecific T wave abnormality no longer evident in Inferior leads QT has shortened Confirmed by Og Salvador ([id number]) on 10/26/2024 10:39:38 PM Referred By: REFERRED SELF Confirmed By: Og Salvador
[2024-10-27 05:04] LABS: Hematocrit (blood only) 29.9 % (42.0-52.0); Hemoglobin 9.5 g/dl (14.0-18.0); Mean Corpuscular Hemoglobin 33.2 pg (25.0-34.0); Mean Corpuscular Hgb Conc 31.8 g/dL (32.0-36.0); Mean Corpuscular Volume 104.5 fL (80.0-100.0); Mean Platelet Volume 12.4 fL (9.4-12.4); Platelet Count 121 K/uL (130-400); RDW Coefficient of Variation 14.9 % (11.5-14.5); RDW Standard Deviation 57.5 fL (36.4-46.3); Red Blood Count 2.86 M/uL (4.70-6.10); White Blood Count 12.54 K/ul (4.8-10.8)
[2024-10-27 05:23] LABS: BUN Creatinine Ratio 15.2 (10-20); Calcium 8.2 mg/dl (8.6-10.3); Creatinine Clr Calc Pharmacy 12.9 ml/min; Potassium 4.6 mmol/L (3.5-5.1)
--- NOTE | 2024-10-27 07:22 | Hospitalist Progress Note ---
Date of Service October 27, 2024 Assessment & Plan (1) Vertebral osteomyelitis: Plan: Mr. Davis is a 79-year-old male with past medical history significant for steroid-induced diabetes, dyslipidemia, hypothyroidism, intraductal papillary mucinous neoplasm, hypogonadism in male, chronic gout, COPD, ANCA associated vasculitis, paroxysmal atrial fibrillation, atherosclerosis of abdominal aorta, chronic heart failure with preserved ejection fraction, hypertension, bilateral lymphadenopathy, CAD, CKD stage IV, chronic intestinal vascular insufficiency, GERD, history of LIZZ, history of erythema nodosum, osteoporosis, fistula of vertebrae, iron deficiency anemia, history of ATN, gynecomastia, history of hematoma of left chest wall who lives at home and ambulates with a cane admitted for concern of worsening lumbrosacral infection with high degree of suspicion for vertebral osteomyelitis. Patient admitted to await for I&D this coming week; however, while in ED decompensated hemodynamically. Labs not suggestive of sepsis, however, patient with high probability of adrenal insufficiency. Stress dose steroids initiated and patient transferred 10/26 to ICU. Patient briefly required pressor support, then transitioned to midodrine. Patient will downgrade to PCU #Hypotension c/f adrenal insufficiency #Chronic corticosteroid use #History of ANCA vasculitis chronically on prednisone 10mg; iso infection likely prompted crisis/hypotension marked by hypoglycemia as well Started on Solucortef, will continue q 6 at this time for 24 hours after pressors weaned, will transition to q8 tomorrow Florinef started, continue for adrenal support Midodrine TID continue for now, discontinue as able #NAGMA #LIZZ on CKDIV started on Bicarb drip, will discontinue for now Resume home PO bicarb Trend BMP Avoid nephrotoxic agents, low threshold for Nephrology consult Downtrending Cr at this time, stable UOP #Vertebral osteomyelitis #Wound of the lumbosacral region MRI done in 09/29/2024 showed a shallow sinus tract and L1 spinous process possible reactive osteitis or osteomyelitis. And severe L5-S1 distal junctional thecal sac stenosis I&D was canceled yesterday morning because of patient being on Eliquis Comes back tonight because patient not feeling well and there is question of fevers Empirically placed on Dapto and zosyn dosing to adjust per renal function as patient has history of staph and Pseudomonas Continue Dapto/Zosyn empirically ID consulted: will likely need IV abx s/p I&D and cultures Apixaban held as of 10/26/2024 #Bradycardia #Paroxysmal atrial fibrillation holding metoprolol for now iso bradycardia, resume as able Holding Eliquis for now for procedure #Hypomagnesia Replace Follow repeat labs #Mild elevation troponin Initial troponin 30 1 repeat 27 Mostly from demand ischemia and CKD stable #Hypothyroidism On Synthyroid TSH 1.8 10/26 #Chronic heart failure with preserved ejection fraction Getting gentle fluids Holding Lasix as needed and potassium supplements Monitor for volume overload, euvolemic at this time Will resume lasix as able #COPD, stable Continue home inhalers History of erythema nodosum On prednisone Chronic gout On allopurinol #Hyperlipidemia Holding statin while on Dapto # 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 requiring reconstruction and flap procedure in August in [place] On radiation treatment, will follow up with [facility] #Hx of IPMN needs followup DVT prophylaxis SCDs for now Disposition ICU downgrade Admission and Anticipated Discharge Date Admission Date: October 26, 2024 Subjective Transferred to ICU for hemodynamic monitoring yesterday Required levophed in evening, off at 0730 am Evaluated at bedside and reports feeling much improved overall Denies any chest pain ,dizziness, or other acute concerns States he was hopeful for a surgery but notes that it will likely be next week Physical Exam Constitutional: WD/WN, vitals as above Respiratory: normal respiratory effort, lungs clear to auscultation Cardiovascular: RRR, no murmur, no edema Gastrointestinal (Abdomen): normal bowel sounds, soft, nontender, no hepat osplenomegaly Neurologic: PERRL, EOMI, accommodation nl, no face palsy, no dysarthria Results & Data Results & Data Vital Signs (Past 12 Hours) Vital Signs Temp Pulse Resp BP Pulse Ox 10/27/24 06:18 56 L 14 97 10/27/24 06:15 110/54 L 10/27/24 06:15 110/54 L 10/27/24 06:01 122/60 10/27/24 06:01 122/60 10/27/24 05:51 56 L 17 96 10/27/24 05:45 145/66 H 10/27/24 05:45 59 L 32 H 98 10/27/24 05:33 58 L 24 97 10/27/24 05:30 134/63 10/27/24 05:30 134/63 10/27/24 05:30 134/63 10/27/24 05:15 70 18 95 10/27/24 05:03 56 L 19 96 10/27/24 05:01 118/59 L 10/27/24 05:01 118/59 L 10/27/24 04:54 60 23 95 10/27/24 04:45 131/62 10/27/24 04:45 60 25 H 96 10/27/24 04:39 59 L 19 97 10/27/24 04:31 125/93 10/27/24 04:21 62 32 H 98 10/27/24 04:15 69 15 87 L 10/27/24 04:03 53 L 14 96 10/27/24 04:00 122/58 L 10/27/24 03:45 143/68 H 10/27/24 03:45 56 L 21 99 10/27/24 03:33 53 L 14 96 10/27/24 03:30 134/55 L 10/27/24 03:30 134/55 L 10/27/24 03:18 49 L 14 97 10/27/24 03:15 66 22 97 10/27/24 03:15 129/57 L 10/27/24 03:00 48 L 13 97 10/27/24 03:00 123/53 L 10/27/24 03:00 123/53 L 10/27/24 02:54 52 L 14 97 10/27/24 02:30 133/53 L 10/27/24 02:30 133/53 L 10/27/24 02:30 133/53 L 10/27/24 02:30 47 L 16 97 10/27/24 02:18 54 L 14 96 10/27/24 02:16 106/56 L 10/27/24 02:16 106/56 L 10/27/24 02:00 36.7 C 119/62 10/27/24 02:00 119/62 10/27/24 02:00 119/62 10/27/24 01:57 66 25 H 99 10/27/24 01:45 120/67 10/27/24 01:45 47 L 22 98 10/27/24 01:31 110/53 L 10/27/24 01:30 46 L 20 95 10/27/24 01:18 59 L 29 H 95 10/27/24 01:16 134/56 L 10/27/24 01:16 134/56 L 10/27/24 01:16 134/56 L 10/27/24 01:00 126/64 10/27/24 00:54 57 L 18 98 10/27/24 00:42 57 L 27 H 97 10/27/24 00:30 118/58 L 10/27/24 00:16 125/57 L 10/27/24 00:16 125/57 L 10/27/24 00:09 56 L 21 98 10/27/24 00:03 71 27 H 95 10/27/24 00:01 135/70 10/27/24 00:01 135/70 10/26/24 23:54 64 36 H 99 10/26/24 23:51 63 22 97 10/26/24 23:45 147/64 H 10/26/24 23:39 46 L 17 97 10/26/24 23:33 56 L 16 96 10/26/24 23:31 128/65 10/26/24 23:15 116/62 10/26/24 23:15 52 L 18 96 10/26/24 23:03 49 L 17 96 10/26/24 23:00 124/62 10/26/24 23:00 124/62 10/26/24 22:54 58 L 16 96 10/26/24 22:45 120/60 10/26/24 22:33 57 L 16 96 10/26/24 22:30 120/62 10/26/24 22:30 120/62 10/26/24 22:30 120/62 10/26/24 22:24 53 L 15 97 10/26/24 22:15 50 L 21 95 10/26/24 22:15 123/60 10/26/24 22:15 123/60 10/26/24 22:03 53 L 17 96 10/26/24 22:00 139/65 10/26/24 21:57 54 L 17 95 10/26/24 21:45 57 L 17 96 10/26/24 21:45 124/62 10/26/24 21:45 124/62 10/26/24 21:30 123/70 10/26/24 21:30 123/70 10/26/24 21:27 62 22 96 10/26/24 21:21 55 L 16 99 10/26/24 21:00 92/50 L 10/26/24 21:00 92/50 L 10/26/24 20:54 59 L 17 98 10/26/24 20:45 60 16 96 10/26/24 20:45 87/49 L 10/26/24 20:45 87/49 L 10/26/24 20:45 87/49 L 10/26/24 20:38 107/49 L 10/26/24 20:38 107/49 L 10/26/24 20:38 107/49 L 10/26/24 20:38 107/49 L 10/26/24 20:33 65 25 H 96 10/26/24 20:18 64 17 96 10/26/24 20:03 66 16 96 10/26/24 20:00 91/50 L 10/26/24 20:00 91/50 L 10/26/24 20:00 91/50 L 10/26/24 19:51 73 23 94 Laboratory Results Short CBC 10/27/24 Range/Units 04:07 WBC 12.54 H (4.8-10.8) K/ul Hgb 9.5 L (14.0-18.0) g/dl Hct 29.9 L (42.0-52.0) % Plt Count 121 L (130-400) K/uL BMP 10/27/24 04:07 Sodium 139 Potassium 4.6 Chloride 108 H Carbon Dioxide 22 BUN 71 H Creatinine 4.66 H* Glucose 85 Calcium 8.2 L Medications Administered Home Medications Medication Instructions Recorded Confirmed Last Taken acetaminophen 325 mg tablet 325 mg PO QID PRN Pain (Scale 10/15/21 10/26/24 10/18/24 (Tylenol) Score 1-3) albuterol sulfate 1.25 mg/3 mL 1.25 mg inhalation BID PRN 10/15/21 10/26/24 08/30/24 solution for nebulization Shortness Of Breath apixaban 5 mg tablet (Eliquis) 5 mg PO BID 10/15/21 10/26/24 10/25/24 05:30 levothyroxine 50 mcg tablet 50 mcg PO DAILY 10/15/21 10/26/24 Unknown metoprolol succinate 25 mg 25 mg PO DAILY 12/06/2810/26/24 10/25/24 05:30 tablet,extended release 24 hr atorvastatin 20 mg tablet (Lipitor) 20 mg PO DAILY 03/19/22 10/26/24 10/24/24 20:00 syringe with needle, safety 3 mL #100 ea 04/13/23 10/26/24 Unknown 21 gauge x 1" (Monoject Safety Syringes) allopurinol 100 mg tablet 200 mg PO DAILY 03/16/24 10/26/24 10/25/24 05:30 calcitriol 0.25 mcg capsule 0.25 mcg PO DAILY #30 caps 03/16/24 10/26/24 10/24/24 08:00 testosterone cypionate 100 mg/mL 75 mg (0.75 mL) subcut Q7D #10 mL 05/31/24 10/26/24 10/18/24 intramuscular oil folic acid 1 mg tablet 1 mg PO DAILY 09/29/24 10/26/24 10/25/24 05:30 oxycodone 5 mg tablet 5 mg PO Q6H PRN Moderate Pain 09/29/24 10/26/24 10/24/24 08:00 (Scale Score 5-6) sodium bicarbonate 650 mg tablet 650 mg PO AMHS 09/29/24 10/26/24 10/25/24 05:30 umeclidinium 62.5 mcg-vilanterol 1 inh inhalation DAILY 09/29/24 10/26/24 10/25/24 05:30 25 mcg/actuation powdr for inhalation L.acidop,casei,lactis,rham-B.lact,blade 1 cap PO DAILY 30 days #30 caps 10/09/24 10/26/24 10/24/24 08:00 625 mg (10 billion cell) capsule (Advanced Probiotic) potassium chloride 20 mEq 20 meq PO UD #30 tabs 10/09/24 10/26/24 10/21/24 tablet,extended release(part/cryst) prednisone 5 mg tablet 10 mg (2 x 5 mg) PO DAILY #30 tabs 10/09/24 10/26/24 10/24/24 08:00 ciprofloxacin HCl 500 mg tablet 500 mg PO QAM 10/20/24 10/26/24 10/24/24 08:00 (Cipro) furosemide 20 mg tablet (Lasix) 20 mg PO UD Edema 10/20/24 10/26/24 10/21/24 Active Medications Generic Name Dose Route Start Last Admin Trade Name Freq PRN Reason Stop Dose Admin Acetaminophen 650 mg 10/26/24 05:25 10/26/24 12:18 Acetaminophen 325 Mg Tab PO 11/25/24 05:24 650 mg Q4H PRN Administration Pain or Fever Allopurinol 200 mg 10/26/24 09:00 10/27/24 08:00 Allopurinol 100 Mg Tab PO 11/25/24 08:59 200 mg DAILY ZAFAR Administration Calcitriol 0.25 mcg 10/26/24 09:00 10/27/24 08:01 Calcitriol 0.25 Mcg Capsule PO 11/25/24 08:59 0.25 mcg DAILY ZAFAR Administration Fludrocortisone Acetate 0.1 mg 10/26/24 17:00 10/27/24 08:01 Fludrocortisone Acetate 0.1 Mg Tab PO 11/25/24 16:59 0.1 mg QAM ZAFAR Administration Folic Acid 1 mg 10/26/24 09:00 10/27/24 08:01 Folic Acid 1 Mg Tab PO 11/25/24 08:59 1 mg DAILY ZAFAR Administration Daptomycin 400 mg/ Syringe 8 mls @ 4 mls/min 10/26/24 04:00 10/26/24 04:50 IV 12/07/24 03:59 4 mls/min Q48H ZAFAR Administration Protocol Piperacillin Sod/Tazobactam Sod 4.5 gm in 100 mls @ 25 mls/hr 10/26/24 12:00 10/27/24 11:17 Zosyn IV 12/07/24 11:59 25 mls/hr Q12H ZAFAR Administration Protocol Hydrocortisone Sodium 1 mls @ 4 mls/min 10/26/24 17:00 10/27/24 11:17 Succinate 50 mg/ Syringe IV 11/25/24 16:59 4 mls/min Q6H ZAFAR Administration Phenylephrine HCl 25 mg in 250 mls @ 21.87 mls/hr 10/26/24 16:45 10/27/24 07:49 Phenylephrine/Nss IV 11/25/24 16:44 0 mcg/kg/min .[id number] ZAFAR 0 mls/hr Titration Protocol 0.5 MCG/KG/MIN Sodium Bicarbonate 150 meq/ 1,150 mls @ 100 mls/hr 10/26/24 17:30 10/27/24 05:15 Sterile Water IV 10/27/24 16:30 100 mls/hr .[id number] ZAFAR Administration Acetaminophen 1,000 mg in 100 mls @ 400 mls/hr 10/26/24 18:52 10/27/24 08:03 Ofirmev IV 10/29/24 18:51 Infused Q8H PRN Infusion while NPO or unable to take PO Insulin Aspart 0 units 10/26/24 21:00 10/27/24 11:59 Insulin Aspart Per Unit Charge SC 11/25/24 20:59 4 units ACHS ZAFAR Administration Lactobacillus Acidophilus 1,250 mg 10/26/24 09:00 10/27/24 08:01 Advanced Probiotic 625 Mg Capsule PO 11/25/24 08:59 1,250 mg DAILY ZAFAR Administration Levothyroxine Sodium 50 mcg 10/26/24 06:30 10/27/24 05:17 Levothyroxine Sodium 50 Mcg Tablet PO 11/25/24 06:29 Not Given DAILYBB ZAFAR Metoprolol Succinate 25 mg 10/26/24 09:00 10/26/24 08:22 Metoprolol Succ 25mg Ext Rel Tab PO 11/25/24 08:59 25 mg DAILY ZAFAR Administration Midodrine 10 mg 10/26/24 17:00 10/27/24 11:17 Midodrine Hcl 10 Mg Tab PO 11/25/24 16:59 10 mg TID@0800,1200,1700 ZAFAR Administration Sodium Bicarbonate 650 mg 10/26/24 09:00 10/27/24 08:01 Sodium Bicarbonate 650 Mg Tab PO 11/25/24 08:59 650 mg AMHS ZAFAR Administration Umeclidinium/Vilanterol 1 puffs 10/26/24 09:00 10/27/24 09:39 Umeclidinium/Vilanterol 62.5/25mcg 7 Puffs/Inhaler INH 11/25/24 08:59 1 puffs DAILY ZAFAR Administration
--- NOTE | 2024-10-27 07:57 | Critical Care Progress Note ---
Date of Service October 27, 2024 Assessment & Plan (1) CKD (chronic kidney disease): (2) ANCA-associated vasculitis: (3) Vertebral osteomyelitis: Plan Impression: 79-year-old male with potential vertebral osteomyelitis 6 years status post lumbar spine surgery admitted for antibiotics found to have acute renal insufficiency superimposed on chronic kidney disease and low blood pressure. 24 Hour Events: Patient required vasopressor support overnight. He has been weaned off this morning. He has had some diarrheal stools. No abdominal pain or blood noted. Otherwise, the patient reports feeling fine. Recommendations: 1. Neurologic: No current issues. Will need physical therapy and Occupational Therapy 2. Cardiovascular: Hypotension. Multiple potential etiologies. His lactate was normal. He is at risk for relative adrenal insufficiency, see comments below. He appears adequately volume resuscitated currently. Responding well to midodrine. He has been weaned off of Martínez-Synephrine. Hold his antihypertensives for now. 3. Pulmonary: History of COPD. PFTs not available. The patient is not bronchospastic. Continue home inhaler regiment. Wean oxygen as tolerated. Incentive spirometry as tolerated 3. Renal: Acute on chronic kidney disease. Unclear if the mild renal hypoperfusion might be contributing. Will try and target systolic blood pressures greater than 100 to see whether or not improve perfusion pressure results and improvement in his chronic kidney disease. He is at risk for continued renal deterioration and potential need for hemodialysis. Bicarb drip discontinued this morning. Appreciate nephrology management. 4. ID: Patient has been seen in consultation by infectious disease. Currently day #2 Zosyn and daptomycin. Continue current antibiotics under the direction of ID and additional antibiotics will be dictated based on results of deeper surgical cultures. 5. Endocrine: On chronic steroids for ANCA vasculitis. Transition to stress dose steroids 50 mg hydrocortisone Q6 as well as 0.1 mg of Florinef p.o. daily. Wean as tolerated. Glycemic control per ICU protocol. 6. GI: No current issues. 7. Heme-onc: History of squamous cell carcinoma of the neck. Mildly pancytopenic. Continue to follow counts at this point in time. No indication for transfusion. Thank you for allowing us to participate in the care of this pleasant patient. The patient has stabilized overnight. He is no longer requiring vasopressor support. He is stable to be downgraded from the ICU at this time. Please feel free to reach out to us with any changes, questions, or concerns. Admission and Anticipated Discharge Date Admission Date: October 26, 2024 Supervising Physician Co-Signing Physician Notes Patient seen and examined. EMR reviewed. Discussed with critical care WIL as well as with bedside critical care nurse and on multidisciplinary rounds. Patient is doing well clinically. He is been weaned off pressors. He was seen by the hospitalist today with plans to transfer him back to the floor. Continue antibiotics under the direction of infectious disease. He is following with nephrology. Will discontinue bicarb drip and transition him back to his oral bicarb. The patient's critical care issues have resolved. Critical care will sign off. Feel free to contact us with questions or concerns Subjective Patient had an uneventful night. He has been weaned off of his vasopressors this morning. He has had some diarrheal stools, but offers no complaints of pain. No blood noted. He does not wish to receive medications as he has a history of hemorrhoids and gets concerned about potential constipation. Otherwise, he offers complaints of pain at his back at the given location, but no other changing or worsening symptoms otherwise. Review of Systems Review of Systems: As per HPI Physical Exam Physical Exam: VITAL SIGNS - Vital signs and nursing notes were reviewed. GENERAL - 79-year-old male appearing his stated age who is in no acute distress. Communicates well with provider and answers questions appropriately. SKIN - Without rashes. HEAD - NC/AT. EYES - PERRL with EOMI bilaterally. Sclera anicteric. NOSE - Midline and without cyanosis. MOUTH/OROPHARYNX - Without perioral cyanosis. LUNGS - Chest wall symmetric without accessory muscle use, intercostals retractions, or central cyanosis. Normal vesicular breath sounds CTA B/L. No wheezes, rales, or rhonchi appreciated. CARDIAC - RRR with S1/S2. No murmur, rubs, or gallops appreciated. ABDOMEN - Abdominal contour flat without pulsations or visible masses. BS normoactive all four quadrants. No tenderness, palpable masses, hepatospleno megaly, or ascites noted. EXTREMITIES - No clubbing or peripheral cyanosis. No pretibial edema present. +3/5 radial and dorsalis pedis pulses palpated throughout. NEUROLOGIC - Cranial nerves II through XII grossly intact. PSYCH - A&Ox3 and cooperates fully with examiner. Pt is very pleasant and interacts well with examiner. Results & Data Results & Data Vital Signs (Past 12 Hours) Vital Signs Temp Pulse Resp BP Pulse Ox O2 Del Method 10/27/24 07:26 55 L 10/27/24 07:25 50 L 16 129/57 L 99 Room Air 10/27/24 06:18 56 L 14 97 10/27/24 06:15 110/54 L 10/27/24 06:15 110/54 L 10/27/24 06:01 122/60 10/27/24 06:01 122/60 10/27/24 05:51 56 L 17 96 10/27/24 05:45 145/66 H 10/27/24 05:45 59 L 32 H 98 10/27/24 05:33 58 L 24 97 10/27/24 05:30 134/63 10/27/24 05:30 134/63 10/27/24 05:30 134/63 10/27/24 05:15 70 18 95 10/27/24 05:03 56 L 19 96 10/27/24 05:01 118/59 L 10/27/24 05:01 118/59 L 10/27/24 04:54 60 23 95 10/27/24 04:45 131/62 10/27/24 04:45 60 25 H 96 10/27/24 04:39 59 L 19 97 10/27/24 04:31 125/93 10/27/24 04:21 62 32 H 98 10/27/24 04:15 69 15 87 L 10/27/24 04:03 53 L 14 96 10/27/24 04:00 122/58 L 10/27/24 03:45 143/68 H 10/27/24 03:45 56 L 21 99 10/27/24 03:33 53 L 14 96 10/27/24 03:30 134/55 L 10/27/24 03:30 134/55 L 10/27/24 03:18 49 L 14 97 10/27/24 03:15 66 22 97 10/27/24 03:15 129/57 L 10/27/24 03:00 48 L 13 97 10/27/24 03:00 123/53 L 10/27/24 03:00 123/53 L 10/27/24 02:54 52 L 14 97 10/27/24 02:30 133/53 L 10/27/24 02:30 133/53 L 10/27/24 02:30 133/53 L 10/27/24 02:30 47 L 16 97 10/27/24 02:18 54 L 14 96 10/27/24 02:16 106/56 L 10/27/24 02:16 106/56 L 10/27/24 02:00 36.7 C 119/62 10/27/24 02:00 119/62 10/27/24 02:00 119/62 10/27/24 01:57 66 25 H 99 10/27/24 01:45 120/67 10/27/24 01:45 47 L 22 98 10/27/24 01:31 110/53 L 10/27/24 01:30 46 L 20 95 10/27/24 01:18 59 L 29 H 95 10/27/24 01:16 134/56 L 10/27/24 01:16 134/56 L 10/27/24 01:16 134/56 L 10/27/24 01:00 126/64 10/27/24 00:54 57 L 18 98 10/27/24 00:42 57 L 27 H 97 10/27/24 00:30 118/58 L 10/27/24 00:16 125/57 L 10/27/24 00:16 125/57 L 10/27/24 00:09 56 L 21 98 10/27/24 00:03 71 27 H 95 10/27/24 00:01 135/70 10/27/24 00:01 135/70 10/26/24 23:54 64 36 H 99 10/26/24 23:51 63 22 97 10/26/24 23:45 147/64 H 10/26/24 23:39 46 L 17 97 10/26/24 23:33 56 L 16 96 10/26/24 23:31 128/65 10/26/24 23:15 116/62 10/26/24 23:15 52 L 18 96 10/26/24 23:03 49 L 17 96 10/26/24 23:00 124/62 10/26/24 23:00 124/62 10/26/24 22:54 58 L 16 96 10/26/24 22:45 120/60 10/26/24 22:33 57 L 16 96 10/26/24 22:30 120/62 10/26/24 22:30 120/62 10/26/24 22:30 120/62 10/26/24 22:24 53 L 15 97 10/26/24 22:15 50 L 21 95 10/26/24 22:15 123/60 10/26/24 22:15 123/60 10/26/24 22:03 53 L 17 96 10/26/24 22:00 139/65 10/26/24 21:57 54 L 17 95 10/26/24 21:45 57 L 17 96 10/26/24 21:45 124/62 10/26/24 21:45 124/62 10/26/24 21:30 123/70 10/26/24 21:30 123/70 10/26/24 21:27 62 22 96 10/26/24 21:21 55 L 16 99 10/26/24 21:00 92/50 L 10/26/24 21:00 92/50 L 10/26/24 20:54 59 L 17 98 10/26/24 20:45 60 16 96 10/26/24 20:45 87/49 L 10/26/24 20:45 87/49 L 10/26/24 20:45 87/49 L 10/26/24 20:38 107/49 L 10/26/24 20:38 107/49 L 10/26/24 20:38 107/49 L 10/26/24 20:38 107/49 L 10/26/24 20:33 65 25 H 96 10/26/24 20:18 64 17 96 10/26/24 20:03 66 16 96 10/26/24 20:00 91/50 L 10/26/24 20:00 91/50 L 10/26/24 20:00 91/50 L Coding Level of Care Code 96473 SUB INP/OBS CARE 2/35MIN Diagnoses CKD (chronic kidney disease) N18.9 ANCA-associated vasculitis I77.82 Vertebral osteomyelitis M46.20
[2024-10-27 10:35] LABS: Estimated Average Glucose 114 mg/dl; Hemoglobin A1C 5.6 % (4.5-5.6)
--- NOTE | 2024-10-27 15:53 | Orthopedic Progress Note ---
Date of Service October 27, 2024 Assessment & Plan (1) Draining cutaneous sinus tract: Plan: This time we are waiting for improved medical status and Tello to be out of his system for a few more days. From orthopedic standpoint he is okay to return home and come back to the hospital next week. Will plan for possible repeat I&D next or Wednesday. Admission and Anticipated Discharge Date Admission Date: October 26, 2024 Subjective Patient is in the chair at the bedside. He appears comfortable. I was able to inspect the incision as the wound nurse was changing his dressing at this time. There is very modest serous drainage. There is no gross erythema. Physical Exam Physical Exam: On exam he is comfortable at this point. Is neurologically intact. Results & Data Vital Signs (Past 12 Hours) Vital Signs Pulse Resp BP Pulse Ox O2 Del Method 10/27/24 13:01 110/52 L 10/27/24 13:00 60 20 10/27/24 12:31 101/76 10/27/24 12:06 67 21 92 10/27/24 12:02 92/49 L 10/27/24 11:51 67 26 H 96 10/27/24 11:01 104/51 L 10/27/24 10:57 55 L 16 96 10/27/24 10:06 55 L 21 119/55 L 95 10/27/24 09:00 119/53 L 10/27/24 08:57 53 L 20 99 10/27/24 08:09 63 20 96 10/27/24 08:01 99/55 L 10/27/24 07:45 132/63 10/27/24 07:26 55 L 10/27/24 07:25 50 L 16 129/57 L 99 Room Air 10/27/24 07:01 116/60 10/27/24 06:18 56 L 14 97 10/27/24 06:15 110/54 L 10/27/24 06:15 110/54 L 10/27/24 06:01 122/60 10/27/24 06:01 122/60 10/27/24 05:51 56 L 17 96 10/27/24 05:45 145/66 H 10/27/24 05:45 59 L 32 H 98 10/27/24 05:33 58 L 24 97 10/27/24 05:30 134/63 10/27/24 05:30 134/63 10/27/24 05:30 134/63 10/27/24 05:15 70 18 95 10/27/24 05:03 56 L 19 96 10/27/24 05:01 118/59 L 10/27/24 05:01 118/59 L 10/27/24 04:54 60 23 95 10/27/24 04:45 131/62 10/27/24 04:45 60 25 H 96 10/27/24 04:39 59 L 19 97 10/27/24 04:31 125/93 10/27/24 04:21 62 32 H 98 10/27/24 04:15 69 15 87 L 10/27/24 04:03 53 L 14 96 10/27/24 04:00 122/58 L
--- NOTE | 2024-10-27 17:42 | Nephrology Progress Note ---
Date of Service October 27, 2024 Assessment & Plan (1) Acute kidney injury superimposed on chronic kidney disease: Plan: patient with the acute kidney injury superimposed on CKD due to ischemic ATN in setting of ongoing osteomyelitis of the vertebra. creatinine of 4.7 today the BUN of 72. Baseline creatinine in the low threes. He is making urine but blood pressure is low. Renal function expected continue worsening given ongoing osteomyelitis. No indication for dialysis today but patient is high risk for needing dialysis. he had a brief stint of dialysis in the past. - Continue to monitor renal function with daily BMP. Avoid nephrotoxins. Renally dose medications for current GFR. (2) Vertebral osteomyelitis: Plan: Patient is on Zosyn and daptomycin per primary team. He is also planned for debridement of the vertebra Wednesday. Renally dose medications for current GFR. (3) Sepsis: Plan: Sepsis due to osteomyelitis of the spine. Avoid hypotension. Admission and Anticipated Discharge Date Admission Date: October 26, 2024 Subjective Seen for acute kidney injury. He feels slightly better today. No shortness of breath. No leg swelling. Review of Systems 2 Review of Systems: All other systems were reviewed and negative except as noted in HPI Physical Exam 2 Physical Exam: General exam: Sick looking, no acute distress HEENT: Pupils are equal and reactive to light Neck: No JVD, neck is supple trachea is midline Respiratory system: Clear breath sounds bilaterally. Gastrointestinal: Abdomen is soft, non distended, non tender, bowel sounds are present CVS: Regular rate and rhythm. No murmurs, rubs or gallops Musculoskeletal: No joint or muscle tenderness Extremities: Non tender, no edema, peripheral pulses are present Neuro: Oriented, no tremors, no focal neurological deficits Skin: skin is flushed all over the body Results & Data Vital Signs (Past 12 Hours) Vital Signs Temp Pulse Resp BP Pulse Ox O2 Del Method 10/27/24 16:24 36.6 C 10/27/24 16:01 114/54 L 10/27/24 16:00 51 L 18 10/27/24 13:01 110/52 L 10/27/24 13:00 60 20 10/27/24 12:31 101/76 10/27/24 12:06 67 21 92 10/27/24 12:02 92/49 L 10/27/24 11:51 67 26 H 96 10/27/24 11:01 104/51 L 10/27/24 10:57 55 L 16 96 10/27/24 10:06 55 L 21 119/55 L 95 10/27/24 09:00 119/53 L 10/27/24 08:57 53 L 20 99 10/27/24 08:09 63 20 96 10/27/24 08:01 99/55 L 10/27/24 07:45 132/63 10/27/24 07:26 55 L 10/27/24 07:25 50 L 16 129/57 L 99 Room Air 10/27/24 07:01 116/60 10/27/24 06:18 56 L 14 97 10/27/24 06:15 110/54 L 10/27/24 06:15 110/54 L 10/27/24 06:01 122/60 10/27/24 06:01 122/60 10/27/24 05:51 56 L 17 96 10/27/24 05:45 145/66 H 10/27/24 05:45 59 L 32 H 98 Laboratory Results 10/27/24 04:07 10/27/24 04:07 WBC 12.54 H RBC 2.86 L MCV 104.5 H MCH 33.2 MCHC 31.8 L RDW Std Deviation 57.5 H RDW Coeff of Rk 14.9 H Plt Count 121 L MPV 12.4
[2024-10-28 06:44] LABS: Hematocrit (blood only) 28.6 % (42.0-52.0); Hemoglobin 9.3 g/dl (14.0-18.0); Mean Corpuscular Hemoglobin 33.5 pg (25.0-34.0); Mean Corpuscular Hgb Conc 32.5 g/dL (32.0-36.0); Mean Corpuscular Volume 102.9 fL (80.0-100.0); Mean Platelet Volume 12.7 fL (9.4-12.4); Platelet Count 142 K/uL (130-400); RDW Coefficient of Variation 14.7 % (11.5-14.5); RDW Standard Deviation 55.1 fL (36.4-46.3); Red Blood Count 2.78 M/uL (4.70-6.10); White Blood Count 10.03 K/ul (4.8-10.8)
[2024-10-28 07:06] LABS: BUN Creatinine Ratio 16.5 (10-20); Creatinine Clr Calc Pharmacy 13.1 ml/min; Magnesium 1.8 mg/dl (1.7-2.4); Phosphorus 6.5 mg/dl (2.5-4.9); Potassium 4.2 mmol/L (3.5-5.1)
[2024-10-28] MEDS: HYDROCORTISONE SOD 50 MG in SYRINGE 0 ML IV SCH (11:58)
--- NOTE | 2024-10-28 12:10 | Hospitalist Progress Note ---
Date of Service October 28, 2024 Assessment & Plan (1) Vertebral osteomyelitis: Plan: Mr. Davis is a 79-year-old male with past medical history significant for steroid-induced diabetes, dyslipidemia, hypothyroidism, intraductal papillary mucinous neoplasm, hypogonadism in male, chronic gout, COPD, ANCA associated vasculitis, paroxysmal atrial fibrillation, atherosclerosis of abdominal aorta, chronic heart failure with preserved ejection fraction, hypertension, bilateral lymphadenopathy, CAD, CKD stage IV, chronic intestinal vascular insufficiency, GERD, history of LIZZ, history of erythema nodosum, osteoporosis, fistula of vertebrae, iron deficiency anemia, history of ATN, gynecomastia, history of hematoma of left chest wall who lives at home and ambulates with a cane admitted for concern of worsening lumbrosacral infection with high degree of suspicion for vertebral osteomyelitis. Patient admitted to await for I&D this coming week; however, while in ED decompensated hemodynamically. Labs not suggestive of sepsis, however, patient with high probability of adrenal insufficiency. Stress dose steroids initiated and patient transferred 10/26 to ICU. Patient briefly required pressor support, then transitioned to midodrine. Patient downgraded to PCU 10/27. Patient with more stable BP and improving renal function. Working to titrate steroids. Ortho spine not to do procedure until 11/02 or 11/03 Coordinating home health for IV abx with 6 weeks planned however, given desire to facilitate home will coordinate IV abx with planned EOT from date of surgery as 12/14 PICC consent placed. Will monitor stability and appropriateness to get home gi julio cesar delay in I&D #Hypotension c/f adrenal insufficiency #Chronic corticosteroid use #History of ANCA vasculitis chronically on prednisone 10mg; iso infection likely prompted crisis/hypotension marked by hypoglycemia as well Transitioned to Solucortef q8, plan to go q12 tomorrow then PO taper to home dosing Florinef started, continue for adrenal support Midodrine TID continue for now, decreased to 5mg with hold parameter of SBP >140 #NAGMA #LIZZ on CKDIV started on Bicarb drip, will discontinue for now Resume home PO bicarb Trend BMP Avoid nephrotoxic agents Nephrology consult Continue to trned BMP, no HD at this time Downtrending Cr at this time, stable UOP #Vertebral osteomyelitis #Wound of the lumbosacral region MRI done in 09/29/2024 showed a shallow sinus tract and L1 spinous process possible reactive osteitis or osteomyelitis. And severe L5-S1 distal junctional thecal sac stenosis I&D was canceled yesterday morning because of patient being on Eliquis Comes back tonight because patient not feeling well and there is question of fevers Empirically placed on Dapto and zosyn dosing to adjust per renal function as patient has history of staph and Pseudomonas Continue Dapto/Zosyn empirically ID consulted: will likely need IV abx s/p I&D and cultures Apixaban held as of 10/26/2024 #Bradycardia #Paroxysmal atrial fibrillation holding metoprolol for now iso bradycardia, resume as able Holding Eliquis for now for procedure #Hypomagnesia Replace Follow repeat labs #Mild elevation troponin Initial troponin 30 1 repeat 27 Mostly from demand ischemia and CKD stable #Hypothyroidism On Synthyroid TSH 1.8 10/26 #Chronic heart failure with preserved ejection fraction Getting gentle fluids Holding Lasix as needed and potassium supplements Monitor for volume overload, euvolemic at this time Will resume lasix as able #COPD, stable Continue home inhalers History of erythema nodosum On prednisone Chronic gout On allopurinol #Hyperlipidemia Holding statin while on Dapto # 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 requiring reconstruction and flap procedure in August in [place] On radiation treatment, will follow up with [facility] #Hx of IPMN needs followup DVT prophylaxis SCDs for now Disposition PCU, Admission and Anticipated Discharge Date Admission Date: October 26, 2024 Subjective Ortho Spine not to do procedure until or Wednesday Family adamant to transition home with home IV abx Patient reports feeling better--discussed need to down titrate IV steriods and coordinate home health Physical Exam Constitutional: WD/WN, vitals as above Respiratory: normal respiratory effort, lungs clear to auscultation Cardiovascular: RRR, no murmur, no edema Musculoskeletal: no cyanosis or clubbing, extremities motor strength 5/5 Results & Data Results & Data Vital Signs (Past 12 Hours) Vital Signs Temp Pulse Resp BP Pulse Ox O2 Del Method 10/28/24 11:56 36.6 C 59 L 20 145/73 H 95 Room Air 10/28/24 08:14 36.5 C 52 L 18 145/70 H 98 Room Air 10/28/24 03:23 36.6 C 58 L 19 146/73 H 95 Room Air Laboratory Results Short CBC 10/28/24 Range/Units 05:49 WBC 10.03 (4.8-10.8) K/ul Hgb 9.3 L (14.0-18.0) g/dl Hct 28.6 L (42.0-52.0) % Plt Count 142 (130-400) K/uL BMP 10/28/24 05:49 Sodium 140 Potassium 4.2 Chloride 105 Carbon Dioxide 25 BUN 78 H Creatinine 4.72 H* Glucose 153 H Calcium 8.0 L Medications Administered Home Medications Medication Instructions Recorded Confirmed Last Taken acetaminophen 325 mg tablet 325 mg PO QID PRN Pain (Scale 10/15/21 10/26/24 10/18/24 (Tylenol) Score 1-3) albuterol sulfate 1.25 mg/3 mL 1.25 mg inhalation BID PRN 10/15/21 10/26/24 08/30/24 solution for nebulization Shortness Of Breath apixaban 5 mg tablet (Eliquis) 5 mg PO BID 10/15/21 10/26/24 10/25/24 05:30 levothyroxine 50 mcg tablet 50 mcg PO DAILY 10/15/21 10/26/24 Unknown metoprolol succinate 25 mg 25 mg PO DAILY 10/15/21 10/26/24 10/25/24 05:30 tablet,extended release 24 hr atorvastatin 20 mg tablet (Lipitor) 20 mg PO DAILY 03/19/22 10/26/24 10/24/24 20:00 syringe with needle, safety 3 mL #100 ea 04/13/23 10/26/24 Unknown 21 gauge x 1" (Monoject Safety Syringes) allopurinol 100 mg tablet 200 mg PO DAILY 03/16/24 10/26/24 10/25/24 05:30 calcitriol 0.25 mcg capsule 0.25 mcg PO DAILY #30 caps 03/16/24 10/26/24 10/24/24 08:00 testosterone cypionate 100 mg/mL 75 mg (0.75 mL) subcut Q7D #10 mL 05/31/24 10/26/24 10/18/24 intramuscular oil folic acid 1 mg tablet 1 mg PO DAILY 09/29/24 10/26/24 10/25/24 05:30 oxycodone 5 mg tablet 5 mg PO Q6H PRN Moderate Pain 09/29/24 10/26/24 10/24/24 08:00 (Scale Score 5-6) sodium bicarbonate 650 mg tablet 650 mg PO AMHS 09/29/24 10/26/24 10/25/24 05:30 umeclidinium 62.5 mcg-vilanterol 1 inh inhalation DAILY 09/29/24 10/26/24 10/25/24 05:30 25 mcg/actuation powdr for inhalation L.acidop,casei,lactis,rham-B.lact,blade 1 cap PO DAILY 30 days #30 caps 10/09/24 10/26/24 10/24/24 08:00 625 mg (10 billion cell) capsule (Advanced Probiotic) potassium chloride 20 mEq 20 meq PO UD #30 tabs 10/09/24 10/26/24 10/21/24 tablet,extended release(part/cryst) prednisone 5 mg tablet 10 mg (2 x 5 mg) PO DAILY #30 tabs 10/09/24 10/26/24 10/24/24 08:00 ciprofloxacin HCl 500 mg tablet 500 mg PO QAM 10/20/24 10/26/24 10/24/24 08:00 (Cipro) furosemide 20 mg tablet (Lasix) 20 mg PO UD Edema 10/20/24 10/26/24 10/21/24 Active Medications Generic Name Dose Route Start Last Admin Trade Name Freq PRN Reason Stop Dose Admin Acetaminophen 650 mg 10/26/24 05:25 10/26/24 12:18 Acetaminophen 325 Mg Tab PO 11/25/24 05:24 650 mg Q4H PRN Administration Pain or Fever Allopurinol 200 mg 10/26/24 09:00 10/27/24 08:00 Allopurinol 100 Mg Tab PO 11/25/24 08:59 200 mg DAILY ZAFAR Administration Calcitriol 0.25 mcg 10/26/24 09:00 10/28/24 07:54 Calcitriol 0.25 Mcg Capsule PO 11/25/24 08:59 0.25 mcg DAILY ZAFAR Administration Fludrocortisone Acetate 0.1 mg 10/26/24 17:00 10/28/24 07:55 Fludrocortisone Acetate 0.1 Mg Tab PO 11/25/24 16:59 0.1 mg QAM ZAFAR Administration Folic Acid 1 mg 10/26/24 09:00 10/28/24 07:54 Folic Acid 1 Mg Tab PO 11/25/24 08:59 1 mg DAILY ZAFAR Administration Daptomycin 400 mg/ Syringe 8 mls @ 4 mls/min 10/26/24 04:00 10/28/24 03:03 IV 12/07/24 03:59 4 mls/min Q48H ZAFAR Administration Protocol Piperacillin Sod/Tazobactam Sod 4.5 gm in 100 mls @ 25 mls/hr 10/26/24 12:00 10/28/24 16:00 Zosyn IV 12/07/24 11:59 Infused Q12H ZAFAR Infusion Protocol Acetaminophen 1,000 mg in 100 mls @ 400 mls/hr 10/26/24 18:52 10/27/24 08:03 Ofirmev IV 10/29/24 18:51 Infused Q8H PRN Infusion while NPO or unable to take PO Hydrocortisone Sodium 1 mls @ 4 mls/min 10/28/24 12:00 10/28/24 11:58 Succinate 50 mg/ Syringe IV 10/29/24 04:01 4 mls/min Q8H ZAFAR Administration Insulin Aspart 0 units 10/26/24 21:00 10/28/24 12:09 Insulin Aspart Per Unit Charge SC 11/25/24 20:59 5 units ACHS ZAFAR Administration Lactobacillus Acidophilus 1,250 mg 10/26/24 09:00 10/28/24 07:54 Advanced Probiotic 625 Mg Capsule PO 11/25/24 08:59 1,250 mg DAILY ZAFAR Administration Levothyroxine Sodium 50 mcg 10/26/24 06:30 10/28/24 05:34 Levothyroxine Sodium 50 Mcg Tablet PO 11/25/24 06:29 50 mcg DAILYBB ZAFAR Administration Metoprolol Succinate 25 mg 10/26/24 09:00 10/26/24 08:22 Metoprolol Succ 25mg Ext Rel Tab PO 11/25/24 08:59 25 mg DAILY ZAFAR Administration Sodium Bicarbonate 650 mg 10/26/24 09:00 10/28/24 07:54 Sodium Bicarbonate 650 Mg Tab PO 11/25/24 08:59 650 mg AMHS ZAFAR Administration Umeclidinium/Vilanterol 1 puffs 10/26/24 09:00 10/28/24 07:52 Umeclidinium/Vilanterol 62.5/25mcg 7 Puffs/Inhaler INH 11/25/24 08:59 1 puffs DAILY ZAFAR Administration
--- NOTE | 2024-10-28 13:17 | Nephrology Progress Note ---
Date of Service October 28, 2024 Assessment & Plan Admission and Anticipated Discharge Date Admission Date: October 26, 2024 Subjective Assessment & Plan (1) Acute kidney injury superimposed on chronic kidney disease: Plan: patient with the acute kidney injury superimposed on CKD due to ischemic ATN in setting of ongoing osteomyelitis of the vertebra. creatinine of 4.7 today the BUN of 78. Baseline creatinine in the low threes. He is making urine . BP is not low anymore. renal function although abnormal is holding stable. So no need of dialysis today. No indication for dialysis today but patient is high risk for needing dialysis. he had a brief stint of dialysis in the past. Continue to monitor renal function with daily BMP. Avoid nephrotoxins. Renally dose medications for current GFR. (2) Vertebral osteomyelitis: Plan: Patient is on Zosyn and daptomycin per primary team. He is also planned for debridement of the vertebra Wednesday. Renally dose medications for current GFR. (3) Sepsis: Plan: Sepsis due to osteomyelitis of the spine. Avoid hypotension. Subjective Seen for LIZZ He feels better today. No shortness of breath. No leg swelling. Review of Systems Review of Systems: All other systems were reviewed and negative except as noted in HPI Physical Exam Physical Exam: General exam: Sick looking, no acute distress HEENT: Pupils are equal and reactive to light Neck: No JVD, neck is supple trachea is midline Respiratory system: Clear breath sounds bilaterally. Gastrointestinal: Abdomen is soft, non distended, non tender, bowel sounds are present CVS: Regular rate and rhythm. No murmurs, rubs or gallops Musculoskeletal: No joint or muscle tenderness Extremities: Non tender, no edema, peripheral pulses are present Neuro: Oriented, no tremors, no focal neurological deficits Skin: skin is flushed all over the body Results & Data Vital Signs (Past 12 Hours) Vital Signs Temp Pulse Resp BP Pulse Ox O2 Del Method 10/28/24 11:56 36.6 C 59 L 20 145/73 H 95 Room Air 10/28/24 08:14 36.5 C 52 L 18 145/70 H 98 Room Air 10/28/24 03:23 36.6 C 58 L 19 146/73 H 95 Room Air
[2024-10-28] MEDS: MIDODRINE HCL 2.5 MG TAB PO SCH (16:43)
[2024-10-29 07:51] LABS: Hematocrit (blood only) 29.3 % (42.0-52.0); Hemoglobin 9.4 g/dl (14.0-18.0); Mean Corpuscular Hemoglobin 32.9 pg (25.0-34.0); Mean Corpuscular Hgb Conc 32.1 g/dL (32.0-36.0); Mean Corpuscular Volume 102.4 fL (80.0-100.0); Mean Platelet Volume 12.2 fL (9.4-12.4); Platelet Count 157 K/uL (130-400); RDW Coefficient of Variation 15.1 % (11.5-14.5); RDW Standard Deviation 57.2 fL (36.4-46.3); Red Blood Count 2.86 M/uL (4.70-6.10); White Blood Count 7.93 K/ul (4.8-10.8)
[2024-10-29 08:09] LABS: BUN Creatinine Ratio 18.7 (10-20); C Reactive Protein 5.56 mg/dl (0-0.5); Calcium 8.2 mg/dl (8.6-10.3); Creatinine Clr Calc Pharmacy 13.9 ml/min; Potassium 3.9 mmol/L (3.5-5.1)
--- NOTE | 2024-10-29 10:41 | XRay Report ---
EXAM: Radiograph of the Chest 1 View INDICATION: Line placement. TECHNIQUE: Frontal view of the chest. Image obtained at 10:17 AM. COMPARISON: 10/26/2024 FINDINGS: Lungs and pleural spaces: Stable interstitial thickening and mild superimposed groundglass opacity in the right lung. Stable trace pleural effusions. No pneumothorax. Heart: Shape and configuration within normal limits allowing for technique. Mediastinum: Normal contour. Bones/joints: No fracture, erosion or dislocation. Soft tissues: No abnormality noted. No radiopaque foreign body noted. Tubes, lines and devices: Right percutaneous catheter extends to the mid to distal SVC and then curls upon itself with the tip terminating in the proximal SVC. Upper abdomen: No abnormality noted. IMPRESSION: Right percutaneous catheter extends to the mid to distal SVC and then curls upon itself with the tip terminating in the proximal SVC. Otherwise unchanged. ACT 112: Negative or not required by law. Electronically signed by Yaritza Mota 10-29-2024 10:41 AM
--- NOTE | 2024-10-29 12:58 | XRay Report ---
EXAM: Radiograph of the Chest 1 View INDICATION: PICC line placement. TECHNIQUE: Frontal view of the chest. Image obtained at 12:38 PM. COMPARISON: 10/26/2024 FINDINGS: Lungs and pleural spaces: Shallow inspiration with persistent but improved vascular congestion. Stable trace left pleural effusion. No pneumothorax. Heart: Shape and configuration within normal limits allowing for technique. Mediastinum: Normal contour. Bones/joints: Degenerative changes noted throughout the spine. No acute osseous abnormality seen. Soft tissues: No abnormality noted. No radiopaque foreign body noted. Tubes, lines and devices: Right peripherally inserted central catheter (PICC) tip in the distal superior vena cava. Upper abdomen: No abnormality noted. IMPRESSION: 1. Shallow inspiration with persistent but improved vascular congestion. 2. Lines and tubes as above. ACT 112: Negative or not required by law. Electronically signed by Yaritza Mota 10-29-2024 12:58 PM
--- NOTE | 2024-10-29 15:31 | Hospitalist Progress Note ---
Date of Service October 29, 2024 Assessment & Plan (1) Vertebral osteomyelitis: Plan: Mr. Davis is a 79-year-old male with past medical history significant for steroid-induced diabetes, dyslipidemia, hypothyroidism, intraductal papillary mucinous neoplasm, hypogonadism in male, chronic gout, COPD, ANCA associated vasculitis, paroxysmal atrial fibrillation, atherosclerosis of abdominal aorta, chronic heart failure with preserved ejection fraction, hypertension, bilateral lymphadenopathy, CAD, CKD stage IV, chronic intestinal vascular insufficiency, GERD, history of LIZZ, history of erythema nodosum, osteoporosis, fistula of vertebrae, iron deficiency anemia, history of ATN, gynecomastia, history of hematoma of left chest wall who lives at home and ambulates with a cane admitted for concern of worsening lumbrosacral infection with high degree of suspicion for vertebral osteomyelitis. Patient admitted to await for I&D this coming week; however, while in ED decompensated hemodynamically. Labs not suggestive of sepsis, however, patient with high probability of adrenal insufficiency. Stress dose steroids initiated and patient transferred 10/26 to ICU. Patient briefly required pressor support, then transitioned to midodrine. Patient downgraded to PCU 10/27. Patient with more stable BP and improving renal function. Working to titrate steroids. Ortho spine not to do procedure until 11/02 or 11/03 Coordinating home health for IV abx with 6 weeks planned however, given desire to facilitate home will coordinate IV abx with planned EOT from date of surgery as 12/14 PICC placed. Pending home health coordination #Hypotension c/f adrenal insufficiency #Chronic corticosteroid use #History of ANCA vasculitis chronically on prednisone 10mg; iso infection likely prompted crisis/hypotension marked by hypoglycemia as well Transitioned to Solucortef q12, will do q24 in am Florinef started, continue for adrenal support discontinue midodrine Will discuss best steriod taper with Endocrine in am with anticipation of upcoming I&D #NAGMA #LIZZ on CKDIV started on Bicarb drip, will discontinue for now Resume home PO bicarb Trend BMP Avoid nephrotoxic agents Nephrology consult Continue to trned BMP, no HD at this time Downtrending Cr at this time, stable UOP #Vertebral osteomyelitis #Wound of the lumbosacral region MRI done in 09/29/2024 showed a shallow sinus tract and L1 spinous process possible reactive osteitis or osteomyelitis. And severe L5-S1 distal junctional thecal sac stenosis I&D was canceled yesterday morning because of patient being on Eliquis Comes back tonight because patient not feeling well and there is question of fevers Empirically placed on Dapto and zosyn dosing to adjust per renal function as patient has history of staph and Pseudomonas Continue Dapto/Zosyn empirically ID consulted: will likely need IV abx s/p I&D and cultures Apixaban held as of 10/26/2024 #Bradycardia #Paroxysmal atrial fibrillation holding metoprolol for now iso bradycardia, resume as able Holding Eliquis for now for procedure #Hypomagnesia Replace Follow repeat labs #Mild elevation troponin Initial troponin 30 1 repeat 27 Mostly from demand ischemia and CKD stable #Hypothyroidism On Synthyroid TSH 1.8 10/26 #Chronic heart failure with preserved ejection fraction Getting gentle fluids Holding Lasix as needed and potassium supplements Monitor for volume overload, euvolemic at this time Will resume lasix as able #COPD, stable Continue home inhalers History of erythema nodosum On prednisone Chronic gout On allopurinol #Hyperlipidemia Holding statin while on Dapto # 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 requiring reconstruction and flap procedure in August in [place] On radiation treatment, will follow up with [facility] #Hx of IPMN needs followup DVT prophylaxis SCDs for now Disposition PCU,dispo with HH and Abx for planned OP I&D Admission and Anticipated Discharge Date Admission Date: October 26, 2024 Subjective NAEO Reports feeling well over all without acute concerns Physical Exam Constitutional: WD/WN, vitals as above Respiratory: normal respiratory effort, lungs clear to auscultation Cardiovascular: RRR, no murmur, no edema Gastrointestinal (Abdomen): normal bowel sounds, soft, nontender, no hepatosplenomegaly Results & Data Results & Data Vital Signs (Past 12 Hours) Vital Signs Temp Pulse Resp BP Pulse Ox O2 Del Method 10/29/24 11:15 36.6 C 51 L 20 143/83 H 96 Room Air 10/29/24 07:59 36.4 C L 57 L 18 160/75 H 94 Room Air 10/29/24 04:08 36.5 C 74 18 170/95 H 94 Room Air Laboratory Results Short CBC 10/29/24 Range/Units 07:23 WBC 7.93 (4.8-10.8) K/ul Hgb 9.4 L (14.0-18.0) g/dl Hct 29.3 L (42.0-52.0) % Plt Count 157 (130-400) K/uL BMP 10/29/24 07:23 Sodium 141 Potassium 3.9 Chloride 105 Carbon Dioxide 26 BUN 83 H Creatinine 4.44 H Glucose 165 H Calcium 8.2 L Medications Administered Home Medications Medication Instructions Recorded Confirmed Last Taken acetaminophen 325 mg tablet 325 mg PO QID PRN Pain (Scale 10/15/21 10/26/24 10/18/24 (Tylenol) Score 1-3) albuterol sulfate 1.25 mg/3 mL 1.25 mg inhalation BID PRN 10/15/21 10/26/24 08/30/24 solution for nebulization Shortness Of Breath apixaban 5 mg tablet (Eliquis) 5 mg PO BID 10/15/21 10/26/24 10/25/24 05:30 levothyroxine 50 mcg tablet 50 mcg PO DAILY 10/15/21 10/26/24 Unknown metoprolol succinate 25 mg 25 mg PO DAILY 10/15/21 10/26/24 10/25/24 05:30 tablet,extended release 24 hr atorvastatin 20 mg tablet (Lipitor) 20 mg PO DAILY 03/19/22 10/26/24 10/24/24 20:00 syringe with needle, safety 3 mL #100 ea 04/13/23 10/26/24 Unknown 21 gauge x 1" (Monoject Safety Syringes) allopurinol 100 mg tablet 200 mg PO DAILY 03/16/24 10/26/24 10/25/24 05:30 calcitriol 0.25 mcg capsule 0.25 mcg PO DAILY #30 caps 03/16/24 10/26/24 10/24/24 08:00 testosterone cypionate 100 mg/mL 75 mg (0.75 mL) subcut Q7D #10 mL 05/31/24 10/26/24 10/18/24 intramuscular oil folic acid 1 mg tablet 1 mg PO DAILY 09/29/24 10/26/24 10/25/24 05:30 oxycodone 5 mg tablet 5 mg PO Q6H PRN Moderate Pain 09/29/24 10/26/24 10/24/24 08:00 (Scale Score 5-6) sodium bicarbonate 650 mg tablet 650 mg PO AMHS 09/29/24 10/26/24 10/25/24 05:30 umeclidinium 62.5 mcg-vilanterol 1 inh inhalation DAILY 09/29/24 10/26/24 10/25/24 05:30 25 mcg/actuation powdr for inhalation L.acidop,casei,lactis,rham-B.lact,blade 1 cap PO DAILY 30 days #30 caps 10/09/24 10/26/24 10/24/24 08:00 625 mg (10 billion cell) capsule (Advanced Probiotic) potassium chloride 20 mEq 20 meq PO UD #30 tabs 10/09/24 10/26/24 10/21/24 tablet,extended release(part/cryst) prednisone 5 mg tablet 10 mg (2 x 5 mg) PO DAILY #30 tabs 10/09/24 10/26/24 10/24/24 08:00 ciprofloxacin HCl 500 mg tablet 500 mg PO QAM 10/20/24 10/26/24 10/24/24 08:00 (Cipro) furosemide 20 mg tablet (Lasix) 20 mg PO UD Edema 10/20/24 10/26/24 10/21/24 Active Medications Generic Name Dose Route Start Last Admin Trade Name Freq PRN Reason Stop Dose Admin Acetaminophen 650 mg 10/26/24 05:25 10/26/24 12:18 Acetaminophen 325 Mg Tab PO 11/25/24 05:24 650 mg Q4H PRN Administration Pain or Fever Allopurinol 200 mg 10/26/24 09:00 10/27/24 08:00 Allopurinol 100 Mg Tab PO 11/25/24 08:59 200 mg DAILY ZAFAR Administration Calcitriol 0.25 mcg 10/26/24 09:00 10/29/24 07:48 Calcitriol 0.25 Mcg Capsule PO 11/25/24 08:59 0.25 mcg DAILY ZAFAR Administration Fludrocortisone Acetate 0.1 mg 10/26/24 17:00 10/29/24 07:49 Fludrocortisone Acetate 0.1 Mg Tab PO 11/25/24 16:59 0.1 mg QAM ZAFAR Administration Folic Acid 1 mg 10/26/24 09:00 10/29/24 07:49 Folic Acid 1 Mg Tab PO 11/25/24 08:59 1 mg DAILY ZAFAR Administration Daptomycin 400 mg/ Syringe 8 mls @ 4 mls/min 12/19/24 04:00 10/28/24 03:03 IV 12/07/24 03:59 4 mls/min Q48H ZAFAR Administration Protocol Piperacillin Sod/Tazobactam Sod 4.5 gm in 100 mls @ 25 mls/hr 10/26/24 12:00 10/29/24 13:28 Zosyn IV 12/07/24 11:59 25 mls/hr Q12H ZAFAR Administration Protocol Acetaminophen 1,000 mg in 100 mls @ 400 mls/hr 10/26/24 18:52 10/27/24 08:03 Ofirmev IV 10/29/24 18:51 Infused Q8H PRN Infusion while NPO or unable to take PO Insulin Aspart 0 units 10/26/24 21:00 10/29/24 13:29 Insulin Aspart Per Unit Charge SC 11/25/24 20:59 6 units ACHS ZAFAR Administration Lactobacillus Acidophilus 1,250 mg 10/26/24 09:00 10/29/24 07:48 Advanced Probiotic 625 Mg Capsule PO 11/25/24 08:59 1,250 mg DAILY ZAFAR Administration Levothyroxine Sodium 50 mcg 10/26/24 06:30 10/29/24 05:49 Levothyroxine Sodium 50 Mcg Tablet PO 11/25/24 06:29 50 mcg DAILYBB ZAFAR Administration Metoprolol Succinate 25 mg 10/26/24 09:00 10/26/24 08:22 Metoprolol Succ 25mg Ext Rel Tab PO 11/25/24 08:59 25 mg DAILY ZAFAR Administration Midodrine 5 mg 10/28/24 17:00 10/28/24 16:43 Midodrine Hcl 2.5 Mg Tab PO 11/27/24 16:59 Not Given TID@0800,1200,1700 ZAFAR Sodium Bicarbonate 650 mg 10/26/24 09:00 10/29/24 07:48 Sodium Bicarbonate 650 Mg Tab PO 11/25/24 08:59 650 mg AMHS ZAFAR Administration Umeclidinium/Vilanterol 1 puffs 10/26/24 09:00 10/29/24 07:48 Umeclidinium/Vilanterol 62.5/25mcg 7 Puffs/Inhaler INH 11/25/24 08:59 1 puffs DAILY ZAFAR Administration
--- NOTE | 2024-10-29 15:34 | Nephrology Progress Note ---
Date of Service October 29, 2024 Assessment & Plan Admission and Anticipated Discharge Date Admission Date: October 26, 2024 Subjective Assessment & Plan (1) Acute kidney injury superimposed on chronic kidney disease: Plan: patient with the acute kidney injury superimposed on CKD due to ischemic ATN in setting of ongoing osteomyelitis of the vertebra. creatinine of 4.7 today the BUN of 78. Baseline creatinine in the low threes. He is making urine . BP is not low anymore. renal function although abnormal is holding stable. So no need of dialysis today. No indication for dialysis today but patient is high risk for needing dialysis. he had a brief stint of dialysis in the past. Continue to monitor renal function with daily BMP. Avoid nephrotoxins. Renally dose medications for current GFR. Creat today dropped a bit so that is a good sign. was on lasix 20 mg three times a week. has been on hold here. Hold till he gets the surgery on . But Fluid limit abput 45-50 Oz only. do not drink too much liquids. (2) Vertebral osteomyelitis: Plan: Patient is on Zosyn and daptomycin per primary team. He is also planned for debridement of the vertebra Wednesday. Renally dose medications for current GFR. (3) Sepsis: Plan: Sepsis due to osteomyelitis of the spine. Avoid hypotension. Subjective Seen for LIZZ He feels better today. No shortness of breath. No leg swelling. Review of Systems Review of Systems: All other systems were reviewed and negative except as noted in HPI Physical Exam Physical Exam: General exam: Sick looking, no acute distress HEENT: Pupils are equal and reactive to light Neck: No JVD, neck is supple trachea is midline Respiratory system: Clear breath sounds bilaterally. Gastrointestinal: Abdomen is soft, non distended, non tender, bowel sounds are present CVS: Regular rate and rhythm. No murmurs, rubs or gallops Musculoskeletal: No joint or muscle tenderness Extremities: Non tender, no edema, peripheral pulses are present Neuro: Oriented, no tremors, no focal neurological deficits Skin: skin is flushed all over the body Results & Data Vital Signs (Past 12 Hours) Vital Signs Temp Pulse Resp BP Pulse Ox O2 Del Method 10/29/24 11:15 36.6 C 51 L 20 143/83 H 96 Room Air 10/29/24 07:59 36.4 C L 57 L 18 160/75 H 94 Room Air 10/29/24 04:08 36.5 C 74 18 170/95 H 94 Room Air
[2024-10-29] MEDS: HYDROCORTISONE SOD 50 MG in SYRINGE 0 ML IV ONE (16:04)
[2024-10-29] MEDS: METOPROLOL TARTRATE 1 MG/ML VIAL IV STA (17:50)
[2024-10-29] MEDS ORDERED: dilTIAZem HCl 5 MG/ML 5 ML VIAL IV STA (18:18)
[2024-10-29] MEDS: dilTIAZem HCl 5 MG/ML 5 ML VIAL IV ONE (18:46)
[2024-10-29] MEDS: HEPARIN SODIUM/DEXTROSE 25,000 UNITS/500 ML BAG IV SCH (21:02)
[2024-10-29] MEDS: HEPARIN 25000 UNIT/500 ML D5W IV ONE (21:04)
[2024-10-29 21:21] LABS: Partial Thromboplastin Ratio 0.9; Partial Thromboplastin Time 25 Seconds (21-31); Prothrombin Time 10.7 Seconds (9.0-12.0)
[2024-10-29 21:51] LABS: Basophils # (auto) 0.01 K/uL (0.00-0.20); Basophils % (auto) 0.1 %; Eosinophils # (auto) 0.06 K/uL (0.00-0.50); Eosinophils % (auto) 0.8 %; Hematocrit (blood only) 29.3 % (42.0-52.0); Hemoglobin 9.4 g/dl (14.0-18.0); Immature Granulocytes # (auto) 0.13 K/uL (0.01-0.20); Immature Granulocytes % (auto) 1.7 %; Lymphocytes # (auto) 0.99 K/uL (1.20-3.40); Lymphocytes % (auto) 12.6 %; Mean Corpuscular Hgb Conc 32.1 g/dL (32.0-36.0); Mean Corpuscular Volume 102.8 fL (80.0-100.0); Mean Platelet Volume 12.3 fL (9.4-12.4); Monocytes # (auto) 0.43 K/uL (0.11-0.59); Monocytes % (auto) 5.5 %; Neutrophils # (auto) 6.24 K/uL (1.40-6.50); Neutrophils % (auto) 79.3 %; Platelet Count 173 K/uL (130-400); RDW Coefficient of Variation 14.9 % (11.5-14.5); RDW Standard Deviation 56.8 fL (36.4-46.3); Red Blood Count 2.85 M/uL (4.70-6.10); White Blood Count 7.86 K/ul (4.8-10.8)
[2024-10-30 03:29] LABS: Hematocrit (blood only) 26.8 % (42.0-52.0); Hemoglobin 8.6 g/dl (14.0-18.0); Mean Corpuscular Hemoglobin 32.8 pg (25.0-34.0); Mean Corpuscular Hgb Conc 32.1 g/dL (32.0-36.0); Mean Corpuscular Volume 102.3 fL (80.0-100.0); Mean Platelet Volume 11.8 fL (9.4-12.4); Platelet Count 144 K/uL (130-400); RDW Coefficient of Variation 15.1 % (11.5-14.5); RDW Standard Deviation 57.3 fL (36.4-46.3); Red Blood Count 2.62 M/uL (4.70-6.10); White Blood Count 6.63 K/ul (4.8-10.8)
[2024-10-30 03:44] LABS: BUN Creatinine Ratio 17.4 (10-20); Magnesium 1.8 mg/dl (1.7-2.4); Phosphorus 5.8 mg/dl (2.5-4.9); Potassium 3.2 mmol/L (3.5-5.1)
[2024-10-30 03:47] LABS: ANTI-Xa, UFH(UnfractionatedHep 0.29 IU/ml (0.3-0.7)
[2024-10-30 03:52] LABS: Troponin I High Sensitivity 74.7 pg/ml (0-20)
[2024-10-30] MEDS ORDERED: PIPERACILLIN/TAZOBACTAM 4.5 GM/100 ML BAG IV SCH (06:00)
[2024-10-30] MEDS ORDERED: HYDROCORTISONE SOD SUCCINATE 100 MG/2 ML VIAL IV STA (07:07)
[2024-10-30 07:43] VITALS: O2SAT 97
[2024-10-30] MEDS: HYDROCORTISONE SOD 25 MG in SYRINGE 0 ML IV ONE (07:51)
[2024-10-30] MEDS: Heparin IV Adult Wt-Based Low-Dose *NO* INITIAL Bolus Protocol IV STA (07:52)
--- NOTE | 2024-10-30 08:36 | Cardiology Consultation ---
Date of Consultation October 30, 2024 Assessment & Plan (1) Atrial fibrillation with RVR: (2) Osteomyelitis of vertebra: (3) Sepsis: (4) CKD (chronic kidney disease): Plan Patient hospitalized for osteomyelitis of the vertebrae/sepsis. PICC line placed for extended antibiotics yesterday. At time of PICC line placement patient developed afib RVR. Known history of PAF. Metoprolol succinate was on hold during admission for hypotension and bradycardia. Hypotension improved. Off pressors. Started on midodrine earlier this admission. Converted to NSR on IV metoprolol. Duration of afib was about 5 hours. No conversion pauses. Resume oral metoprolol succinate 12.5 mg daily Eliquis on hold due to I&D in several days. Placed on IV heparin last night after afib incident. Continue antibiotics per hospitalist/ID Plan for I&D with spine surgery later this week. History of CKD, Followed closely by nephrology. Creatinine around baseline. Making urine and no indication currently for dialysis per nephrology. Plan was for discharge today. Patient wishing to return home for holiday if antibiotics can be arranged through home health. He is understanding of his stroke risks off anticoagulation. Need to hold Elqiuis for upcoming procedure. He will return to hospital if clinical status worsens. No further cardiac testing warranted at this time. Case discussed with Dr. Zaid Almanzar spent a total of 50 minutes on the date of service in preparation, delivery, and documentation of the care provided to this patient, excluding any time spent in the performance of separately billed services. Teressa Dasilva PA-C Department of Cardiology, [facility] This chart was completed in part utilizing Speech Voice Recognition Software. Grammatical errors, random word insertions, pronoun errors, and incomplete sentences are an occasional consequence of this system due to software limitations, ambient noise, and hardware issues. Any formal questions or concerns about the content, text, or information contained within the body of this dictation should be directly addressed to the provider for clarification. Supervising Physician Co-Signing Physician Notes Patient seen and personally examined. Care and management as well outlined by advanced provider as above.Care discussed and personally endorsed Complex 79-year-old male with paroxysmal atrial fibrillation history with a sided cause possibly provoked by placement of central venous catheter. Has spontaneously converted to sinus rhythm. Plan as outlined above. Holding anticoagulation mandated provide planned surgical procedure. Continue metoprolol succinate No contraindications from cardiac standpoint for discharge with plans as already arranged I spent a total of 30 minutes on the date of service in preparation, delivery, and documentation of the care provided to this patient, excluding any time spent in the performance of separately billed services. History of Present Illness Reason for Consultation: Atrial fibrillation Requesting Physician: Pablo Bey Attending Physician: Dr. Mar History of Present Illness Patient is a 79 year old male presenting to [facility] Known to Ahmet Valencia. History includes 1. Paroxysmal atrial fibrillation 2. CKD stage IV -received dialysis x4 for ATN 12/2021. Has not required dialysis since then. 3. Hypertension 4. Prolonged admission 12/2021 admission for pneumonia, acute hypoxic resp failure with intubation 12/2021 5. Chronic anemia 6. HFpEF In August 2024 patient underwent SCC excision and neck dissection with flap reconstruction. In Sep 2024, patient had MRI of his spine due to wound of the lumbosacral region with drainage. Diagnosed with probable osteomyelitis. Plan was to proceed with I&D last week but patient had been on Eliquis so procedure was cancelled. Procedure was rescheduled but in the meantime, patient developed worsening symptoms, systemic fevers and came to the ER on 10/26. Started on broad spectrum antibiotics. Infectious disease and ortho consulted. Blood cultures negative x2. Initial wound culture + for shreya albicans. During hospitalization, patient developed worsening CKD, hypotension requiring pressors and ICU status. Pressors weaned over the next few days. Midodrine added. Reports of mild bradycardia and oral metoprolol held. last evening on 10/29, patient developed afib RVR, episode lasted for about 5 hours. Treated with IV metoprolol. converted back to NSR. Started on IV heparin for anticoagulation. Plans for repeat I&D this week ( or Wednesday). Eliquis remains on hold. Ongoing renal insufficiency noted. Nephrology following. Close to baseline. Making urine and no indication for dialysis at this time. At time of consult, patient resting in bed feeling "fine". Wants to go home for Trey and come back for procedure. No chest pain, SOB, palpitations or dizziness. HR currently stable on telemetry. Currently NSR/Sinus bradycardia in the 50-70's. Allergies Allergy/AdvReac Type Severity Reaction Status Date / Time chlorhexidine Allergy Severe Redness, Verified 10/25/24 08:37 Skin Peeling for Weeks aztreonam Allergy Intermediate Hives Verified 10/25/24 08:37 Iodinated Contrast Media AdvReac Severe Kidney Verified 10/25/24 08:37 Failure Cephalosporins AdvReac Intermediate Gastrointestinal Verified 10/25/24 08:37 Upset ciprofloxacin AdvReac Intermediate Diarrhea Verified 10/25/24 08:37 levofloxacin AdvReac Intermediate Diarrhea Verified 10/25/24 08:37 Home Medications Medication Instructions Recorded Confirmed Type acetaminophen 325 mg tablet 325 mg PO QID PRN Pain (Scale 10/15/21 10/26/24 History (Tylenol) Score 1-3) albuterol sulfate 1.25 mg/3 mL 1.25 mg inhalation BID PRN 10/15/21 10/26/24 History solution for nebulization Shortness Of Breath apixaban 5 mg tablet (Eliquis) 5 mg PO BID 10/15/21 10/26/24 History levothyroxine 50 mcg tablet 50 mcg PO DAILY 10/15/21 10/26/24 History metoprolol succinate 25 mg 25 mg PO DAILY 10/15/21 10/26/24 History tablet,extended release 24 hr atorvastatin 20 mg tablet (Lipitor) 20 mg PO DAILY 03/19/22 10/26/24 History syringe with needle, safety 3 mL #100 ea 04/13/23 10/26/24 Rx 21 gauge x 1" (Monoject Safety Syringes) allopurinol 100 mg tablet 200 mg PO DAILY 03/16/24 10/26/24 History calcitriol 0.25 mcg capsule 0.25 mcg PO DAILY #30 caps 03/16/24 10/26/24 Rx testosterone cypionate 100 mg/mL 75 mg (0.75 mL) subcut Q7D #10 mL 05/31/24 10/26/24 Rx intramuscular oil folic acid 1 mg tablet 1 mg PO DAILY 09/29/24 10/26/24 History oxycodone 5 mg tablet 5 mg PO Q6H PRN Moderate Pain 09/29/24 10/26/24 History (Scale Score 5-6) sodium bicarbonate 650 mg tablet 650 mg PO AMHS 09/29/24 10/26/24 History umeclidinium 62.5 mcg-vilanterol 1 inh inhalation DAILY 09/29/24 10/26/24 History 25 mcg/actuation powdr for inhalation L.acidop,casei,lactis,rham-B.lact,blade 1 cap PO DAILY 30 days #30 caps 10/09/24 10/26/24 Rx 625 mg (10 billion cell) capsule (Advanced Probiotic) potassium chloride 20 mEq 20 meq PO UD #30 tabs 10/09/24 10/26/24 Rx tablet,extended release(part/cryst) prednisone 5 mg tablet 10 mg (2 x 5 mg) PO DAILY #30 tabs 10/09/24 10/26/24 Rx ciprofloxacin HCl 500 mg tablet 500 mg PO QAM 10/20/24 10/26/24 History (Cipro) furosemide 20 mg tablet (Lasix) 20 mg PO UD Edema 10/20/24 10/26/24 History Patient History Medical History Gout Mediastinal lymphadenopathy "Follow by Dr Aguilar, pulomology, s/p EBUS and bx on 12/09/17, to f/u pulmonology and repeat CT scan" [facility] Pul 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 Open wound of lumbar region "One part of the incision will not heal and has been draining for 2 weeks." as per Allergic rhinitis COPD (chronic obstructive pulmonary disease) [facility] Pulm Hx of squamous cell carcinoma 07/2024 Neck - Currently getting XRT at [facility] - Osteoporosis Osteomyelitis GERD (gastroesophageal reflux disease) Chronic anemia Gynecomastia Hemorrhoids Diverticulosis hx - found on colonoscopy H/O acute pancreatitis entered into EMR 08/21/2019 Paroxysmal A-fib Eliquis - [facility] Cardiology Hyperglobulinemia hx of HLD (hyperlipidemia) Hypertension Herpes simplex infection hx - no issues at this time as per crusted, involving lips and right nares Generalized weakness Hypothyroid Peripheral edema Diastolic CHF [facility] Cardiology Diabetes pts denies at this time - but pt can get low blood surgars "it'll need to be watched on the day of the procedure" CKD (chronic kidney disease), stage IV no dialysis Erythema nodosum ANCA positive, on chronic prednisone Surgical History Hx of colonoscopy Hx of squamous cell carcinoma excision History of cataract surgery bilateral History of back surgery multiple - 2017 [facility] - most recently I&D 10/03/24 [facility] H/O lymph node biopsy possible sarcoid History of bronchoscopy H/O left inguinal hernia repair Family History Mother Stroke Myocardial infarction Father Heart disease Social History Smoking Status: Former smoker Second Hand Exposure: No; Do You Dip or Chew Tobacco: No; Hx Alcohol Use: Yes Alcohol type: beer Alcohol Intake Frequency: 2-3 x/Week Hx Substance Use: No Preferred Language: Greek Communication Ability: Effective Clinical Research Spec Required: No Beliefs That Will Affect Care: None Current Living Situation: Spouse Feels Safe at Home: Yes Assistive Devices: Cane Review of Systems Review of Systems: All systems reviewed & are unremarkable except as noted in HPI & below Physical Exam Constitutional: WD/WN, vitals as above average body habitus; no acute distress Neck: trachea midline, no thyromegaly normal visual inspection Respiratory: normal respiratory effort, lungs clear to auscultation Cardiovascular: Rate/Rhythm: regular rate and regular rhythm Heart Sounds: normal S1 and normal S2; no murmur Vessels: no JVD Extremities: + edema (1+ b/l edema ) Gastrointestinal (Abdomen): normal bowel sounds, soft, nontender, no hepatosplenomegaly Skin: no rashes, warm and dry Results & Data Vital Signs (Past 12 Hours) Vital Signs Temp Pulse Pulse Resp BP BP Pulse Ox 10/30/24 07:41 36.6 C 65 17 142/78 H 97 10/30/24 06:22 52 L 10/30/24 02:56 36.8 C 50 L 18 125/72 94 10/30/24 00:40 104 H 10/29/24 22:56 36.8 C 60 20 136/71 95 10/29/24 22:20 O2 Del Method 10/30/24 07:41 Room Air 10/30/24 06:22 10/30/24 02:56 Room Air 10/30/24 00:40 10/29/24 22:56 Room Air 10/29/24 22:20 Room Air Laboratory Results Cardiac Enzymes 10/29/24 10/30/24 10/30/24 Range/Units 18:44 00:13 03:11 Troponin I High Sens 68.0 H* 79.2 H* D 74.7 H* (0-20) pg/ml Coagulation 10/29/24 Range/Units 20:30 PT 10.7 (9.0-12.0) Seconds APTT 25 (21-31) Seconds CBC 10/29/24 10/30/24 Range/Units 20:30 03:11 WBC 7.86 6.63 (4.8-10.8) K/ul RBC 2.85 L 2.62 L (4.70-6.10) M/uL Hgb 9.4 L 8.6 L (14.0-18.0) g/dl Hct 29.3 L 26.8 L (42.0-52.0) % Plt Count 173 144 (130-400) K/uL Neut # (Auto) 6.24 (1.40-6.50) K/uL Lymph # (Auto) 0.99 L (1.20-3.40) K/uL [place] # (Auto) 0.43 (0.11-0.59) K/uL Eos # (Auto) 0.06 (0.00-0.50) K/uL Baso # (Auto) 0.01 (0.00-0.20) K/uL Comprehensive Metabolic Panel 10/30/24 Range/Units 03:11 Sodium 141 (136-145) mmol/L Potassium 3.2 L (3.5-5.1) mmol/L Chloride 107 (98-107) mmol/L Carbon Dioxide 24 (21-32) mmol/L BUN 77 H (6-23) mg/dl Creatinine 4.43 H (0.6-1.4) mg/dl Glucose 160 H (70-99(Fasting)) mg/dl Calcium 8.0 L (8.6-10.3) mg/dl Intake and Output 10/29/24 10/30/24 10/30/24 22:59 06:59 14:59 Intake Total 100 / 322.4 222.4 / 322.4 61.433 / 61.433 Output Total 325 / 325 Balance -225 / -2.6 222.4 / -2.6 61.433 / 61.433 Intake: IV 100 / 322.4 222.4 / 322.4 61.433 / 61.433 Heparin Sodium/Dextrose 25,000 122.4 / 122.4 61.433 / 61.433 units In 500 ml @ 900 UNITS/HR 18 mls/hr IV .Q24H [facility] Rx#: [id number] Piperacillin/Tazobactam 4.5 gm 100 / 200 100 / 200 In 100 ml @ 25 mls/hr IV Q12H [facility] Rx#:[id number] Output: Urine 325 / 325 Other: Weight 77.6 kg Weight Measurement Method Built in [facility] Diagnostic Findings Telemetry reviewed: Patient had episode of afib last evening lasting about 5 hours iwth RVR. Converted to NSR at 22:24. Currently Sinus bradycardia in the 50's and NSR in the 60's. No significant pauses or symptomatic bradycardia EKG reviewed from this morning 10/30/24: NSR, normal EKG No acute ischemic changes Compared with prior EKG, sinus rhythm has replaced atrial fibrillation EKG reviewed from 10/29/24: Afib with RVR at [address] wave abnormality in inferior and anterolateral leads Chest X-Ray 10/29/24 12:20 EXAM: Radiograph of the Chest 1 View INDICATION: PICC line placement. TECHNIQUE: Frontal view of the chest. Image obtained at 12:38 PM. COMPARISON: 10/26/2024 FINDINGS: Lungs and pleural spaces: Shallow inspiration with persistent but improved vascular congestion. Stable trace left pleural effusion. No pneumothorax. Heart: Shape and configuration within normal limits allowing for technique. Mediastinum: Normal contour. Bones/joints: Degenerative changes noted throughout the spine. No acute osseous abnormality seen. Soft tissues: No abnormality noted. No radiopaque foreign body noted. Tubes, lines and devices: Right peripherally inserted central catheter (PICC) tip in the distal superior vena cava. Upper abdomen: No abnormality noted. IMPRESSION: 1. Shallow inspiration with persistent but improved vascular congestion. 2. Lines and tubes as above. ACT 112: Negative or not required by law. Electronically signed by Yaritza Mota 10-29-2024 12:58 PM Outside echo report reviewed dated 09/2023: Normal LVEF at 60-64% RV cavity size is normal RV systolic function is normal No significant valvular disease Medications Administered Current Inpatient Medications Acetaminophen (Acetaminophen 325 Mg Tab) 650 mg PO Q4H PRN PRN Reason: Pain or Fever Stop: 11/25/24 05:24 Last Admin: 10/26/24 12:18 Dose: 650 mg Albuterol (Albuterol 0.083% Nebu Soln 3 Ml Vial) 1.25 mg INH BID PRN PRN Reason: Shortness Of Breath Stop: 11/25/24 05:50 Allopurinol (Allopurinol 100 Mg Tab) 200 mg PO DAILY ZAFAR Stop: 11/25/24 08:59 Last Admin: 10/27/24 08:00 Dose: 200 mg Calcitriol (Calcitriol 0.25 Mcg Capsule) 0.25 mcg PO DAILY ZAFAR Stop: 11/25/24 08:59 Last Admin: 10/30/24 07:56 Dose: 0.25 mcg Dextrose (Dextrose 50% 50 Ml Syringe) 25 - 50 ml IV UD PRN; Protocol PRN Reason: Hypoglycemia Protocol Stop: 11/25/24 18:35 Folic Acid (Folic Acid 1 Mg Tab) 1 mg PO DAILY ZAFAR Stop: 11/25/24 08:59 Last Admin: 10/30/24 07:53 Dose: 1 mg Glucagon (Glucagon For Inj 1 Mg Vial) 1 mg SQ UD PRN; Protocol PRN Reason: Hypoglycemia Protocol Stop: 11/25/24 18:35 Glucose (Glucose 40% Gel 15 Gm Tube) 15 - 30 gm PO UD PRN; Protocol PRN Reason: Hypoglycemia Protocol Stop: 11/25/24 18:35 Glucose (Glucose 10 Tab/Tube) 4 - 8 tab PO UD PRN; Protocol PRN Reason: Hypoglycemia Protocol Stop: 11/25/24 18:35 Heparin Sodium (Beef Lung) (Heparin 10 Unit/Ml 5 Ml Flush) 5 ml FLUSH PRN PRN PRN Reason: Flush Stop: 11/28/24 13:05 Daptomycin 400 mg/ Syringe 8 mls @ 4 mls/min IV Q48H ZAFAR; Protocol Stop: 12/07/24 03:59 Last Admin: 10/30/24 03:52 Dose: 4 mls/min Piperacillin Sod/Tazobactam Sod (Zosyn) 4.5 gm in 100 mls @ 25 mls/hr IV Q12H [facility]AFAR; Protocol Stop: 12/07/24 11:59 Last Infusion: 10/30/24 04:15 Dose: Infused Heparin Sodium/Dextrose (Heparin Sodium/Dextrose) 25,000 units in 500 mls @ 19 mls/hr IV .Q24H [facility]AR; Protocol Stop: 11/28/24 18:44 Last Titration: 10/30/24 07:04 Dose: 950 units/hr, 19 mls/hr Insulin Aspart (Insulin Aspart Per Unit Charge) 0 units SC ACHS [facility] Stop: 11/25/24 20:59 Last Admin: 10/30/24 07:57 Dose: Not Given Lactobacillus Acidophilus (Advanced Probiotic 625 Mg Capsule) 1,250 mg PO DAILY [facility] Stop: 11/25/24 08:59 Last Admin: 10/30/24 07:53 Dose: 1,250 mg Levothyroxine Sodium (Levothyroxine Sodium 50 Mcg Tablet) 50 mcg PO DAILYBB [facility] Stop: 11/25/24 06:29 Last Admin: 10/30/24 06:04 Dose: 50 mcg Metoprolol Succinate (Metoprolol Succ 25mg Ext Rel Tab) 25 mg PO DAILY [facility] Stop: 11/25/24 08:59 Last Admin: 10/26/24 08:22 Dose: 25 mg Midodrine (Midodrine Hcl 2.5 Mg Tab) 5 mg PO TID@0800,1200,1700 [facility] Stop: 11/27/24 16:59 Last Admin: 10/28/24 16:43 Dose: Not Given Miscellaneous (Carbohydrates For Hypoglycemia ) 15 - 30 gm PO UD PRN PRN Reason: Hypoglycemia Protocol Stop: 11/25/24 18:35 Nitroglycerin (Nitroglycerin Sl 0.4 Mg/Tab Tab) 0.4 mg SL Q5M PRN PRN Reason: Chest Pain Stop: 11/25/24 05:24 Polyethylene Glycol (Polyethylene (Miralax) 17 Gm Pack) 17 gm PO DAILY PRN PRN Reason: Constipation Stop: 11/25/24 05:24 Sodium Bicarbonate (Sodium Bicarbonate 650 Mg Tab) 650 mg PO AMHS [facility] Stop: 11/25/24 08:59 Last Admin: 10/30/24 07:53 Dose: 650 mg Umeclidinium/Vilanterol (Umeclidinium/Vilanterol 62.5/25mcg 7 Puffs/Inhaler) 1 puffs INH DAILY [facility] Stop: 11/25/24 08:59 Last Admin: 10/30/24 07:52 Dose: 1 puffs
--- NOTE | 2024-10-30 09:38 | Nephrology Progress Note ---
Date of Service October 30, 2024 Assessment & Plan Admission and Anticipated Discharge Date Admission Date: October 26, 2024 Subjective Assessment & Plan (1) Acute kidney injury superimposed on chronic kidney disease: Plan: patient with the acute kidney injury superimposed on CKD due to ischemic ATN in setting of ongoing osteomyelitis of the vertebra. creatinine of 4.7 today the BUN of 78. Baseline creatinine in the low threes. He is making urine . BP is not low anymore. renal function although abnormal is holding stable. So no need of dialysis today. No indication for dialysis today but patient is high risk for needing dialysis. he had a brief stint of dialysis in the past. Continue to monitor renal function with daily BMP. Avoid nephrotoxins. Renally dose medications for current GFR. Creat today about same as yesterday despite Afibb/RVR at night. was on lasix 20 mg three times a week. has been on hold here. Hold till he gets the surgery on . But Fluid limit about 45-50 Oz only. do not drink too much liquids. reviewed cards note and also Endocrine. He will need renal panel and CBC to be done on Wednesday as outpt. Discharge as per cards and primary team (2) Vertebral osteomyelitis: Plan: Patient is on Zosyn and daptomycin per primary team. He is also planned for debridement of the vertebra Wednesday. Renally dose medications for current GFR. (3) Sepsis: Plan: Sepsis due to osteomyelitis of the spine. Avoid hypotension. getting I and d Subjective Seen for LIZZ. had Afibb with RVR last night butnow back on NSR He feels better today. No shortness of breath. No leg swelling. Review of Systems Review of Systems: All other systems were reviewed and negative except as noted in HPI Physical Exam Physical Exam: General exam: Sick looking, no acute distress HEENT: Pupils are equal and reactive to light Neck: No JVD, neck is supple trachea is midline Respiratory system: Clear breath sounds bilaterally. Gastrointestinal: Abdomen is soft, non distended, non tender, bowel sounds are present CVS: Regular rate and rhythm. No murmurs, rubs or gallops Musculoskeletal: No joint or muscle tenderness Extremities: Non tender, no edema, peripheral pulses are present Neuro: Oriented, no tremors, no focal neurological deficits Skin: skin is flushed all over the body Results & Data Vital Signs (Past 12 Hours) Vital Signs Temp Pulse Pulse Resp BP BP Pulse Ox 10/30/24 07:41 36.6 C 65 17 142/78 H 97 10/30/24 06:22 52 L 10/30/24 02:56 36.8 C 50 L 18 125/72 94 10/30/24 00:40 104 H 10/29/24 22:56 36.8 C 60 20 136/71 95 10/29/24 22:20 O2 Del Method 10/30/24 07:41 Room Air 10/30/24 06:22 10/30/24 02:56 Room Air 10/30/24 00:40 10/29/24 22:56 Room Air 10/29/24 22:20 Room Air
[2024-10-30] MEDS ORDERED: METOPROLOL SUCC 25MG EXT REL TAB PO SCH (10:00)
[2024-10-30 10:48] LABS: ANTI-Xa, UFH(UnfractionatedHep 0.31 IU/ml (0.3-0.7)
[2024-10-30] MEDS: POTASSIUM CHLORIDE CRTAB 20 MEQ TABCR PO STA (10:52)
[2024-10-30] MEDS: POTASSIUM CHLORIDE / WTR 10 MEQ/100 ML PLCT IV SCH (10:52)
--- NOTE | 2024-10-30 11:27 | Electrocardiogram Report ---
Test Reason : Blood Pressure : */* mmHG Vent. Rate : 136 BPM Atrial Rate : 84 BPM P-R Int : * ms QRS Dur : 76 ms QT Int : 300 ms P-R-T Axes : * -17 -60 degrees QTcB Int : 451 ms Atrial fibrillation with rapid ventricular response Nonspecific ST and T wave abnormality Abnormal ECG When compared with ECG of 25-Oct-2024 23:25, Atrial fibrillation has replaced Sinus rhythm Vent. rate has increased by [address] now depressed in Inferior leads ST now depressed in Anterior leads Nonspecific T wave abnormality now evident in Inferior leads Nonspecific T wave abnormality now evident in Anterolateral leads Confirmed by Benny Gutierrez ([id number]) on 10/30/2024 11:26:56 AM Referred By: REFERRED SELF Confirmed By: Benny Gutierrez
--- NOTE | 2024-10-30 11:36 | Electrocardiogram Report ---
Test Reason : Blood Pressure : */* mmHG Vent. Rate : 65 BPM Atrial Rate : 65 BPM P-R Int : 186 ms QRS Dur : 90 ms QT Int : 450 ms P-R-T Axes : 42 -14 16 degrees QTcB Int : 468 ms Normal sinus rhythm Normal ECG When compared with ECG of 29-Oct-2024 17:44, (unconfirmed) Sinus rhythm has replaced Atrial fibrillation Vent. rate has decreased by [address] no longer depressed in Anterior leads Nonspecific T wave abnormality no longer evident in Lateral leads Confirmed by Benny Gutierrez ([id number]) on 10/30/2024 11:35:50 AM Referred By: REFERRED SELF Confirmed By: Benny Gutierrez
--- NOTE | 2024-10-30 11:53 | Discharge Summary ---
Discharge Summary Date of Service October 30, 2024 Principal Dx & Hospital Course #1 = Principal Diagnosis (1) Vertebral osteomyelitis: Mr. Davis is a 79-year-old male with past medical history significant for steroid-induced diabetes, dyslipidemia, hypothyroidism, intraductal papillary mucinous neoplasm, hypogonadism in male, chronic gout, COPD, ANCA associated vasculitis, paroxysmal atrial fibrillation, atherosclerosis of abdominal aorta, chronic heart failure with preserved ejection fraction, hypertension, bilateral lymphadenopathy, CAD, CKD stage IV, chronic intestinal vascular insufficiency, GERD, history of LIZZ, history of erythema nodosum, osteoporosis, fistula of vertebrae, iron deficiency anemia, history of ATN, gynecomastia, history of hematoma of left chest wall who lives at home and ambulates with a cane admitted for concern of worsening lumbrosacral infection with high degree of suspicion for vertebral osteomyelitis. Patient admitted to await for I&D this coming week; however, while in ED decompensated hemodynamically. Labs not suggestive of sepsis, however, patient with high probability of adrenal insufficiency. Stress dose steroids initiated and patient transferred 10/26 to ICU. Patient briefly required pressor support, then transitioned to midodrine. Patient downgraded to PCU 10/27. Patient with more stable BP and improving renal function. Working to titrate steroids. Ortho spine not to do procedure until 11/02 or 11/03 Coordinating home health for IV abx with 6 weeks planned however, given desire to facilitate home will coordinate IV abx with planned EOT from date of surgery as 12/14 PICC placed on 10/29. The line was curled and shortly after placement patient went into RVR. Line readjusted by IV team and patient converted to sinus after push of metop and Diltazem. Cardiology consulted given mostly bradycardic during admission--plan to resume low dose metoprolol. Discussed adrenal insufficiency with Endocrinology. Plan in place for steroid regimen for discharge and postoperatively. Patient will see Dr. Lawton on 11/06. Prints outs describing AI and prelim knowledge given to patient and to identify warning signs On day of discharge, patient was eating well, ambulating, and eager for dispo. HH to be at patient's home in am at 8am #Hypotension c/f adrenal insufficiency #Chronic corticosteroid use #History of ANCA vasculitis chronically on prednisone 10mg; iso infection likely prompted crisis/hypotension marked by hypoglycemia as well Transitioned to Solucortef q12, will do q24 in am Florinef discontinued Endocrine discussion had: 15mg prednisone until surgery, then 20mg prednisone postoperatively discontinue midodrine #NAGMA *resolved #LIZZ on CKDIV started on Bicarb drip, will discontinue for now Resume home PO bicarb Trend BMP Avoid nephrotoxic agents Nephrology consult Continue to trned BMP, no HD at this time #Vertebral osteomyelitis #Wound of the lumbosacral region MRI done in 09/29/2024 showed a shallow sinus tract and L1 spinous process possible reactive osteitis or osteomyelitis. And severe L5-S1 distal junctional thecal sac stenosis I&D was canceled yesterday morning because of patient being on Eliquis Comes back tonight because patient not feeling well and there is question of fevers Empirically placed on Dapto and zosyn dosing to adjust per renal function as patient has history of staph and Pseudomonas Continue Dapto/Zosyn empirically ID consulted: will likely need IV abx s/p I&D and cultures -Discharged with [facility] for 12/14 for 6 weeks abx s/p ID -Will need ID follow up Apixaban held as of 10/26/2024 #Bradycardia #Paroxysmal atrial fibrillation with RVR low dose metoprolol 12.5mg started Holding Eliquis for now for procedure #Hypomagnesia Replaced #Mild elevation troponin Initial troponin 30 1 repeat 27 Mostly from demand ischemia and CKD stable #Hypothyroidism On Synthyroid TSH 1.8 10/26 #Chronic heart failure with preserved ejection fraction Getting gentle fluids Holding Lasix as needed and potassium supplements Monitor for volume overload, euvolemic at this time resume lasix #COPD, stable Continue home inhalers History of erythema nodosum On prednisone Chronic gout On allopurinol #Hyperlipidemia Holding statin while on Dapto # 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 requiring reconstruction and flap procedure in August in [place] On radiation treatment, will follow up with [facility] #Hx of IPMN needs followup Notes For Next Care Provider -Needs ID follow up in 4-6 weeks Weekly cbc, cmp, crp Medication Changes From Visit Increased prednisone to 15mg daily until I&D, then 20mg postop until follow up with Dr Lawton for further tapering Reduced metoprolol to 12.5mg daily Held statin while on daptomycin Held apixaban per Ortho Spine Admission HPI Per Admitting Provider 79-year-old male with past medical history significant for steroid-induced diabetes, dyslipidemia, hypothyroidism, intraductal papillary mucinous neoplasm, hypogonadism in male, chronic gout, COPD, ANCA associated vasculitis, paroxysmal atrial fibrillation, atherosclerosis of abdominal aorta, chronic heart failure with preserved ejection fraction, hypertension, bilateral lymphadenopathy, CAD, CKD stage IV, chronic intestinal vascular insufficiency, GERD, history of LIZZ, history of erythema nodosum, osteoporosis, fistula of vertebrae, iron deficiency anemia, history of ATN, gynecomastia, history of hematoma of left chest wall who lives at home and ambulates with a cane was brought in because of ongoing infection of the lumbosacral region. There seems to plan for I&D of the lumbosacral wound yesterday morning but because the patient been on Eliquis it was canceled. Seems after going home patient had fevers and he was brought back. Patient is alert and oriented x 3.. Patient denies any fevers. He says he was wobbly and not feeling well so he came back. Has some pain in the back. No abdominal pain. Normal bowel and bladder movements as per patient. Denies any chest pain or shortness of breath. No cough. No headache. No runny nose or sore throat. Vision is okay. Currently resting comfortably and hemodynamically stable. Past medical history. As mentioned above Past surgical history. Lumbar spine/cord surgery. Biopsy of the soft tissue neck. Bronchoscopy. Colonoscopy. Incision drainage of soft tissue neck left side, EGD. Insertion of lens prosthesis the left side, cervical lymphadenectomy repair of left inguinal hernia. Social history. . Quit smoking in 1965. Smoked 1 pack a day for 1 year. Alcohol occasional. No drug use. Family history. Brother had throat cancer. Brother had diabetes. Brother has CAD. Brother had liver cirrhosis. Father had heart attack. Admission Exam Per Admitting Provider General- Not in acute distress Head- atraumatic Eyes- PERRL. ENT- oropharynx clear Neck- supple, no JVD. Lungs- clear to auscultation no wheezing or crackles. Heart- regular rhythm; no murmur, no gallop. Abdomen- normal bowel sounds, soft, nontender, no distension. Extremities- no pretibial edema, no erythema seen Neuro- alert, oriented x 3; PERRL,no facial palsy; no dysarthria; moves extremities Musculoskeletal. Dressing in lumbar region Discharge Exam Constitutional WD/WN, vitals as above Respiratory normal respiratory effort, lungs clear to auscultation Cardiovascular RRR, no murmur, no edema Gastrointestinal (Abdomen) normal bowel sounds, soft, nontender, no hepatosplenomegaly Musculoskeletal no cyanosis or clubbing, extremities motor strength 5/5 Neurologic PERRL, EOMI, accommodation nl, no face palsy, no dysarthria Updated Medication List Medication Instructions Recorded Confirmed Type acetaminophen 325 mg tablet 325 mg PO QID PRN Pain (Scale 10/15/21 10/26/24 History (Tylenol) Score 1-3) albuterol sulfate 1.25 mg/3 mL 1.25 mg inhalation BID PRN 10/15/21 10/26/24 History solution for nebulization Shortness Of Breath apixaban 5 mg tablet (Eliquis) 5 mg PO BID 10/15/21 10/26/24 History levothyroxine 50 mcg tablet 50 mcg PO DAILY 10/15/21 10/26/24 History atorvastatin 20 mg tablet (Lipitor) 20 mg PO DAILY 03/19/22 10/26/24 History syringe with needle, safety 3 mL #100 ea 04/13/23 10/26/24 Rx 21 gauge x 1" (Monoject Safety Syringes) allopurinol 100 mg tablet 200 mg PO DAILY 03/16/24 10/26/24 History calcitriol 0.25 mcg capsule 0.25 mcg PO DAILY #30 caps 03/16/24 10/26/24 Rx testosterone cypionate 100 mg/mL 75 mg (0.75 mL) subcut Q7D #10 mL 05/31/24 10/26/24 Rx intramuscular oil folic acid 1 mg tablet 1 mg PO DAILY 09/29/24 10/26/24 History oxycodone 5 mg tablet 5 mg PO Q6H PRN Moderate Pain 09/29/24 10/26/24 History (Scale Score 5-6) sodium bicarbonate 650 mg tablet 650 mg PO AMHS 09/29/24 10/26/24 History umeclidinium 62.5 mcg-vilanterol 1 inh inhalation DAILY 09/29/24 10/26/24 History 25 mcg/actuation powdr for inhalation L.acidop,casei,lactis,rham-B.lact,blade 1 cap PO DAILY 30 days #30 caps 10/09/24 10/26/24 Rx 625 mg (10 billion cell) capsule (Advanced Probiotic) potassium chloride 20 mEq 20 meq PO UD #30 tabs 10/09/24 10/26/24 Rx tablet,extended release(part/cryst) prednisone 5 mg tablet 10 mg (2 x 5 mg) PO DAILY #30 tabs 10/09/24 10/26/24 Rx furosemide 20 mg tablet (Lasix) 20 mg PO UD Edema 10/20/24 10/26/24 History metoprolol succinate 25 mg 12.5 mg (1/2 x 25 mg) PO QAM 30 10/30/24 Rx tablet,extended release 24 hr days #15 tabs prednisone 10 mg tablet See Rx Instructions .Route 10/30/24 Rx .COMPLEX #20 tabs Hospital Stay Data Consultations 10/26/24 01:54 ED Decision to Admit Stat 10/26/24 08:00 Consult Infectious Diseases Routine Consult Nephrology Routine Consult Orthopedic Spine Surgery Routine 10/26/24 15:44 Consult Miniature Train Driver Stat 10/29/24 18:13 Consult Cardiology Routine Discharge Instructions Given to Patient (Per Discharging Provider) You were admitted for fevers and feeling unwell given ongoing lower back infection. Multiple ongoing issues occurred. First, you were seen by Infectious Disease who feels you will need 6 weeks of antibiotics from day of surgery A PICC line was placed for mcfp antibiotics. Home health will instruct you on dosing You will need to follow up with Infectious Disease in 4 weeks prior to discontinuation of antibitoics You will need to ensure weekly labs (cbc, cmp, crp) Second, you experienced "adrenal insufficiency" You were given handouts to help explain the current steroid dosing that is higher than your baseline prednisone dosing: -Please take 15mg (1.5 tablets) until day of surgery; following surgery, take 20mg (2 tablets) until told otherwise by follow up with Dr. Lawton during appointment 11/06 Third, you were noted to have fluctuating heart rates, ranging from lower end to higher end given atrial fibrillation. You metoprolol was reduced to from 25mg to 12.5mg. Please continue this regimen until told otherwise You apixaban is held given pending procedure. Please resume per Dr. Irene recommendations Total Time Total Time Spent Total Time Spent (In Minutes): 65
[2024-10-30] MEDS: METOPROLOL SUCC 25MG EXT REL TAB PO SCH (12:14)
[2024-10-30 15:28] VITALS: PULSE 53; RESP 16; TEMP 98.4
[2024-10-30 16:39] VITALS: BP 151/67
[2024-10-30 17:48] LABS: BUN Creatinine Ratio 18.1 (10-20); Creatinine Clr Calc Pharmacy 15.3 ml/min; Potassium 3.3 mmol/L (3.5-5.1)
[2024-10-30] MEDS: PIPERACILLIN/TAZOBACTAM 4.5 GM/100 ML BAG IV SCH (18:33)
[2024-10-31] MEDS ORDERED: PIPERACILLIN/TAZOBACTAM 4.5 GM/100 ML BAG IV SCH (06:00)
--- NOTE | 2024-10-31 13:52 | Coding Query ---
SEPSIS To promote full compliance with coding requirements relating to patient care, physician participation is requested in all cases of director of instrumental music uncertainty. Please assist us with the question(s) below: In responding to this query, please exercise your independent professional judgement. The fact that a question is asked does not imply that any particular answer is desired or expected. We appreciate your clarification on this issue. Throughout the medical record, you have clearly documented a localized infection and your patient has clinical evidence of a generalized sepsis or severe sepsis. The term urosepsis is a nonspecific entity and is coded as an UTI. If the patient has sepsis, severe sepsis, from an urinary source or some other source, please clarify in your response below. The medical record reflects the following clinical findings: Pt admitted with vertebral osteomyelitis. 10/26 Nephro consult mentioned Sepsis . Pt with draining fistula due to possible infected spinal hardware. Please check below the phrase that applies if applicable. Thanks for your help! Frank Zimmerman [employer] [facility] ____ ( )Bacteremia (Nonspecific laboratory finding of bacteria in the blood) Specify Organism ( ) Present on Admission ( ) Not present on admission ( ) Unable to clinically determine ( ) Septicemia (Systemic disease associated with the presence of pathogenic microorganisms in the blood): Specify Organism ( ) Present on Admission ( ) Not present on admission ( ) Unable to clinically determine ( ) Sepsis Specify Organism Specify Associated Condition/Diagnosis ( ) Present on Admission ( ) Not present on admission ( ) Unable to clinically determine ( ) Severe Sepsis (Sepsis associated with acute organ dysfunction) Specify Organism Specify Associated Condition/Diagnosis ( ) Present on Admission ( ) Not present on admission ( ) Unable to clinically determine ( ) Septic Shock (Severe sepsis with acute circulatory failure, unexplained by other causes) ( ) Present on Admission () Not present on admission ( ) Unable to clinically determine ( ) Other, patient has: MTDD
== END 2024-10-30 19:15 | disposition home health service (06) | DRG 539 ==
LOC: ED 23:18 → EDINP 10-26 03:49 → 1E 10-26 17:27 → 2S 10-27 18:39